=== PATIENT | male | born 1955 | race Caucasian/White ===

== ENCOUNTER → 2018-01-20 12:53 | Outpatient (CLI) | payer MEDICARE, SELFPAY ==
[2018-01-20 13:11] LABS: Abs Immature Grans 0.09 k/cumm (0.0-0.09); Absolute Basophil Count 0.03 k/cumm (0.0-0.2); Absolute Eosinophil Count 0.14 k/cumm (0.0-0.7); Absolute Monocyte Count 0.87 k/cumm (0.11-0.7); Absolute Neutrophil Count 5.96 k/cumm (1.2-6.7); Basophils % 0.3; Eosinophils % 1.6; HCT 37.9 % (40.0-50.0); HGB 12.7 g/dL (13.5-17.5); Lymphocytes % 18.4; Mean Corp. HGB Concentration 33.5 g/dL (32.0-36.0); Mean Corpuscular Hemoglobin 28.3 pg (27.0-33.0); Mean Corpuscular Volume 84.6 fL (80-95); Mean Platelet Volume 8.7 fL (8.0-11.0); Neutrophils % 68.7; Platelet Count 519 x1000/uL (130-400); RBC 4.48 m/cumm (4.50-6.00); RBC Distribution Width 14.2 % (11.8-14.1); White Blood Cell Count 8.69 k/cumm (4.4-10.8)
[2018-01-20 13:23] LABS: ALT 29 U/L (12-78); AST 24 U/L (15-37); Albumin 3.8 g/dL (3.4-5.0); Alkaline Phosphatase 128 U/L (46-116); Anion Gap 8.6 mmol/L (3-11); BUN 21 mg/dL (7-18); Bilirubin, Total 0.3 mg/dL (0.2-1.0); CO2 27.4 mmol/L (21.0-32.0); CREATININE 1.15 mg/dL (0.70-1.30); Calcium 9.2 mg/dL (8.5-10.1); Chloride 95 mmol/L (98-107); Glucose 95 mg/dL (70-100); Potassium 3.9 mmol/L (3.5-5.1); Sodium 131 mmol/L (136-145); Total Protein 8.2 g/dL (6.4-8.2)
== END ==
PROVIDERS: PCP Family Medicine; Visit Provider Internal Medicine
DX: C34.90 Malignant neoplasm of unspecified part of unspecified bronchus or lung (principal)
CPT/HCPCS: 36415; 80053; 85025

== ENCOUNTER → 2018-02-14 09:14 | Outpatient (CLI) | payer MEDICARE, SELFPAY ==
[2018-02-14 09:41] LABS: HCT 35.8 % (40.0-50.0); HGB 11.6 g/dL (13.5-17.5); Mean Corp. HGB Concentration 32.4 g/dL (32.0-36.0); Mean Corpuscular Hemoglobin 27.6 pg (27.0-33.0); Mean Platelet Volume 8.1 fL (8.0-11.0); Platelet Count 436 x1000/uL (130-400); RBC 4.21 m/cumm (4.50-6.00); RBC Distribution Width 14.7 % (11.8-14.1); White Blood Cell Count 6.65 k/cumm (4.4-10.8)
[2018-02-14 09:51] LABS: ALT 42 U/L (12-78); AST 28 U/L (15-37); Albumin 3.6 g/dL (3.4-5.0); Alkaline Phosphatase 117 U/L (46-116); Anion Gap 5.4 mmol/L (3-11); BUN 21 mg/dL (7-18); Bilirubin, Total 0.2 mg/dL (0.2-1.0); CO2 28.6 mmol/L (21.0-32.0); CREATININE 1.17 mg/dL (0.70-1.30); Calcium 9.3 mg/dL (8.5-10.1); Chloride 98 mmol/L (98-107); Glucose 102 mg/dL (70-100); Potassium 4.6 mmol/L (3.5-5.1); Sodium 132 mmol/L (136-145); Total Protein 7.8 g/dL (6.4-8.2)
[2018-02-14 10:14] LABS: Absolute Eosinophil Count 0.07 k/cumm (0.0-0.7); Absolute Lymphocyte Count 1.66 k/cumm (1.2-3.4); Absolute Neutrophil Count 3.19 k/cumm (1.2-6.7); Atypical Lymphocytes % 1
[2018-02-14 10:15] LABS: Absolute Basophil Count 0.07 k/cumm (0.0-0.2); Diff Comment Manual Differential; RBC Morphology Normal
== END ==
PROVIDERS: PCP Family Medicine; Visit Provider Internal Medicine
DX: C34.90 Malignant neoplasm of unspecified part of unspecified bronchus or lung (principal)
CPT/HCPCS: 36415; 80053; 85025

== ENCOUNTER 2018-03-07 10:38 | Outpatient (CLI) | payer MEDICARE, SELFPAY ==
[2018-03-07 11:03] LABS: HCT 31.4 % (40.0-50.0); HGB 10.5 g/dL (13.5-17.5); Mean Corp. HGB Concentration 33.4 g/dL (32.0-36.0); Mean Corpuscular Hemoglobin 28.2 pg (27.0-33.0); Mean Corpuscular Volume 84.2 fL (80-95); Mean Platelet Volume 8.5 fL (8.0-11.0); Platelet Count 270 x1000/uL (130-400); RBC 3.73 m/cumm (4.50-6.00); RBC Distribution Width 16.2 % (11.8-14.1); White Blood Cell Count 3.68 k/cumm (4.4-10.8)
[2018-03-07 11:13] LABS: ALT 37 U/L (12-78); AST 25 U/L (15-37); Albumin 3.5 g/dL (3.4-5.0); Alkaline Phosphatase 123 U/L (46-116); Anion Gap 5.8 mmol/L (3-11); BUN 12 mg/dL (7-18); Bilirubin, Total 0.2 mg/dL (0.2-1.0); CO2 30.2 mmol/L (21.0-32.0); Calcium 8.7 mg/dL (8.5-10.1); Chloride 101 mmol/L (98-107); Glucose 92 mg/dL (70-100); Potassium 4.2 mmol/L (3.5-5.1); Sodium 137 mmol/L (136-145); Total Protein 7.6 g/dL (6.4-8.2)
[2018-03-07 11:34] LABS: Absolute Eosinophil Count 0.04 k/cumm (0.0-0.7); Absolute Lymphocyte Count 0.55 k/cumm (1.2-3.4); Absolute Monocyte Count 1.14 k/cumm (0.11-0.7); Absolute Neutrophil Count 1.66 k/cumm (1.2-6.7)
[2018-03-07 11:35] LABS: Diff Comment Manual Differential; Nucleated RBC 2 /100WBC
== END 2018-03-07 10:58 ==
PROVIDERS: PCP Family Medicine; Visit Provider Internal Medicine
DX: C34.90 Malignant neoplasm of unspecified part of unspecified bronchus or lung (principal)
CPT/HCPCS: 36415; 80053; 85025

== ENCOUNTER 2018-03-28 10:06 | Outpatient (CLI) | payer MEDICARE, SELFPAY ==
[2018-03-28 10:29] LABS: Abs Immature Grans 0.36 k/cumm (0.0-0.09); HCT 27.6 % (40.0-50.0); HGB 9.4 g/dL (13.5-17.5); Mean Corp. HGB Concentration 34.1 g/dL (32.0-36.0); Mean Corpuscular Hemoglobin 28.8 pg (27.0-33.0); Mean Corpuscular Volume 84.7 fL (80-95); Mean Platelet Volume 8.5 fL (8.0-11.0); Platelet Count 292 x1000/uL (130-400); RBC 3.26 m/cumm (4.50-6.00); White Blood Cell Count 4.43 k/cumm (4.4-10.8)
[2018-03-28 10:43] LABS: Absolute Lymphocyte Count 0.53 k/cumm (1.2-3.4); Absolute Monocyte Count 0.89 k/cumm (0.11-0.7); Absolute Neutrophil Count 2.75 k/cumm (1.2-6.7)
[2018-03-28 10:44] LABS: Diff Comment Manual Differential; Polychromasia Present
[2018-03-28 10:46] LABS: ALT 26 U/L (12-78); AST 21 U/L (15-37); Albumin 3.6 g/dL (3.4-5.0); Alkaline Phosphatase 110 U/L (46-116); Anion Gap 6.9 mmol/L (3-11); BUN 19 mg/dL (7-18); Bilirubin, Total 0.3 mg/dL (0.2-1.0); CO2 27.1 mmol/L (21.0-32.0); CREATININE 1.02 mg/dL (0.70-1.30); Calcium 8.5 mg/dL (8.5-10.1); Chloride 99 mmol/L (98-107); Glucose 101 mg/dL (70-100); Potassium 3.9 mmol/L (3.5-5.1); Sodium 133 mmol/L (136-145); Total Protein 7.3 g/dL (6.4-8.2)
== END 2018-03-28 10:26 ==
PROVIDERS: PCP Family Medicine; Visit Provider Internal Medicine
DX: C34.90 Malignant neoplasm of unspecified part of unspecified bronchus or lung (principal)
CPT/HCPCS: 36415; 80053; 85025

== ENCOUNTER 2018-04-06 01:28 | Outpatient (CLI) | payer MEDICARE, SELFPAY ==
[2018-04-06] MEDS: Gadoterate meglumine 20 ML VIAL 15 ML IVP (10:28)
--- NOTE | 2018-04-06 10:40 | DI.MRI_ITS ---
SYMPTOM/DIAGNOSIS: SMALL LUNG CA, C34.11 BRAIN MRI: T 2 sagittal and axial and axial diffusion and axial T 2 BLADE and axial T 2 hemo and axial T 1 pre and post and coronal post Dotarem enhanced images were obtained. There are a few small regions of increased signal in the frontoparietal white matter bilaterally. There is no evidence of a mass. There is no evidence of contrast enhancement. The ventricles are normal. SUMMARY: There is no evidence of metastatic disease. Small regions of increased signal in the frontoparietal white matter bilaterally would be consistent with minimal small vessel disease.
== END 2018-04-06 01:48 ==
PROVIDERS: PCP Family Medicine; Visit Provider Radiology Radiation Oncology
DX: C34.11 Malignant neoplasm of upper lobe, right bronchus or lung (principal); Z12.89 Encounter for screening for malignant neoplasm of other sites
CPT/HCPCS: 70553

== ENCOUNTER 2018-04-12 14:52 | Outpatient (CLI) | payer MEDICARE, SELFPAY ==
[2018-04-12 15:17] LABS: Abs Immature Grans 0.01 k/cumm (0.0-0.09); Absolute Basophil Count 0.01 k/cumm (0.0-0.2); Absolute Eosinophil Count 0.01 k/cumm (0.0-0.7); Absolute Lymphocyte Count 0.42 k/cumm (1.2-3.4); Absolute Monocyte Count 0.35 k/cumm (0.11-0.7); Basophils % 0.8; Eosinophils % 0.8; HCT 24.6 % (40.0-50.0); HGB 8.2 g/dL (13.5-17.5); Immature Grans % 0.8; Lymphocytes % 35.6; Mean Corp. HGB Concentration 33.3 g/dL (32.0-36.0); Mean Corpuscular Hemoglobin 28.9 pg (27.0-33.0); Mean Corpuscular Volume 86.6 fL (80-95); Mean Platelet Volume 8.4 fL (8.0-11.0); Monocytes % 29.7; Neutrophils % 32.3; Platelet Count 130 x1000/uL (130-400); RBC 2.84 m/cumm (4.50-6.00); RBC Distribution Width 20.3 % (11.8-14.1)
[2018-04-12 15:28] LABS: ALT 32 U/L (12-78); AST 23 U/L (15-37); Albumin 3.6 g/dL (3.4-5.0); Alkaline Phosphatase 111 U/L (46-116); Anion Gap 10.3 mmol/L (3-11); BUN 18 mg/dL (7-18); Bilirubin, Total 0.3 mg/dL (0.2-1.0); CO2 27.7 mmol/L (21.0-32.0); CREATININE 1.15 mg/dL (0.70-1.30); Calcium 8.8 mg/dL (8.5-10.1); Chloride 98 mmol/L (98-107); Glucose 104 mg/dL (70-100); Sodium 136 mmol/L (136-145); Total Protein 7.3 g/dL (6.4-8.2)
[2018-04-12 16:01] LABS: Diff Comment Diff Reviewed
[2018-04-12 16:14] LABS: White Blood Cell Count 1.18 k/cumm (4.4-10.8)
[2018-04-12 16:15] LABS: Absolute Neutrophil Count 0.38 k/cumm (1.2-6.7)
[2018-04-12 16:19] LABS: Anisocytosis 3+
[2018-04-12 16:20] LABS: Polychromasia Present
== END 2018-04-12 15:12 ==
PROVIDERS: PCP Family Medicine; Visit Provider Nurse Practitioner Family
DX: C34.11 Malignant neoplasm of upper lobe, right bronchus or lung (principal)
CPT/HCPCS: 36415; 80053; 85025

== ENCOUNTER 2018-04-19 09:00 | Outpatient (CLI) | payer MEDICARE, SELFPAY ==
[2018-04-19 09:20] LABS: HCT 26.8 % (40.0-50.0); HGB 8.9 g/dL (13.5-17.5); Mean Corp. HGB Concentration 33.2 g/dL (32.0-36.0); Mean Corpuscular Hemoglobin 29.6 pg (27.0-33.0); Mean Platelet Volume 8.8 fL (8.0-11.0); Platelet Count 296 x1000/uL (130-400); RBC 3.01 m/cumm (4.50-6.00); RBC Distribution Width 22.7 % (11.8-14.1); White Blood Cell Count 4.26 k/cumm (4.4-10.8)
[2018-04-19 09:33] LABS: ALT 33 U/L (12-78); AST 25 U/L (15-37); Albumin 3.7 g/dL (3.4-5.0); Alkaline Phosphatase 115 U/L (46-116); Anion Gap 8.9 mmol/L (3-11); BUN 24 mg/dL (7-18); Bilirubin, Total 0.3 mg/dL (0.2-1.0); CO2 28.1 mmol/L (21.0-32.0); CREATININE 1.19 mg/dL (0.70-1.30); Calcium 9.5 mg/dL (8.5-10.1); Chloride 98 mmol/L (98-107); Glucose 111 mg/dL (70-100); Sodium 135 mmol/L (136-145); Total Protein 7.4 g/dL (6.4-8.2)
[2018-04-19 09:44] LABS: Absolute Lymphocyte Count 0.43 k/cumm (1.2-3.4); Absolute Monocyte Count 0.81 k/cumm (0.11-0.7); Absolute Neutrophil Count 2.68 k/cumm (1.2-6.7); Atypical Lymphocytes % 2
[2018-04-19 09:45] LABS: Anisocytosis 2+; Diff Comment Manual Differential; Hypochromasia 2+; Macrocytosis 1+; Microcytosis 2+; Polychromasia Present; Schistocytes 1+
[2018-04-19 09:46] LABS: Nucleated RBC 4 /100WBC; Poikilocytes 1+
== END 2018-04-19 09:20 ==
PROVIDERS: PCP Family Medicine; Visit Provider Internal Medicine
DX: C34.90 Malignant neoplasm of unspecified part of unspecified bronchus or lung (principal)
CPT/HCPCS: 36415; 80053; 85025

== ENCOUNTER 2018-05-18 00:27 | Outpatient (CLI) | payer MEDICARE, SELFPAY ==
[2018-05-18 14:27] LABS: ALT 39 U/L (12-78); AST 24 U/L (15-37); Albumin 3.9 g/dL (3.4-5.0); Alkaline Phosphatase 104 U/L (46-116); BUN 26 mg/dL (7-18); Bilirubin, Total 0.2 mg/dL (0.2-1.0); CREATININE 1.26 mg/dL (0.70-1.30); Chloride 99 mmol/L (98-107); Glucose 110 mg/dL (70-100); Potassium 3.9 mmol/L (3.5-5.1); Sodium 137 mmol/L (136-145); Total Protein 7.4 g/dL (6.4-8.2)
[2018-05-18 14:38] LABS: Abs Immature Grans 0.11 k/cumm (0.0-0.09); Absolute Basophil Count 0.03 k/cumm (0.0-0.2); Absolute Eosinophil Count 0.17 k/cumm (0.0-0.7); Absolute Lymphocyte Count 0.61 k/cumm (1.2-3.4); Absolute Monocyte Count 0.73 k/cumm (0.11-0.7); Absolute Neutrophil Count 5.48 k/cumm (1.2-6.7); Basophils % 0.4; Eosinophils % 2.4; HGB 11.1 g/dL (13.5-17.5); Immature Grans % 1.5; Lymphocytes % 8.6; Mean Corp. HGB Concentration 32.6 g/dL (32.0-36.0); Mean Platelet Volume 8.8 fL (8.0-11.0); Monocytes % 10.2; Neutrophils % 76.9; Platelet Count 356 x1000/uL (130-400); RBC 3.47 m/cumm (4.50-6.00); RBC Distribution Width 20.1 % (11.8-14.1); White Blood Cell Count 7.13 k/cumm (4.4-10.8)
--- NOTE | 2018-05-18 14:45 | DI.CT_ITS ---
SYMPTOM/DIAGNOSIS: HO SMALL CELL LUNG CA, S/P CHEMO AND RADIATION THERAPY, C34.[address]: Comparison is made with 12/15/17. Images were performed from the clavicles through the level of the adrenals after IV contrast. There has been marked interval decrease in the previously noted right upper lobe mass, now measuring 2.6 cm. in diameter. The previously noted adjacent right superior hilar adenopathy is no longer seen. The small anterior nodule adjacent to a cyst has decreased in size to 3 mm. Left apical scarring is seen. There is linear scarring in the inferior left upper lobe. No infiltrates, pleural or pericardial effusions are seen. Tiny hepatic circumscribed lucencies appear stable. A circumscribed cystic area is noted in the left lobe of the thyroid. A port is seen overlying the right pectoral muscle with the tip in the SVC. No suspicious bony abnormalities are seen. IMPRESSION: Marked interval decrease in size of right upper lobe mass and right superior hilar adenopathy. No new abnormalities are seen.
[2018-05-18] MEDS: Omnipaque 350 MG/ML 100 ML BTL IJ (14:58)
== END 2018-05-18 00:47 ==
PROVIDERS: PCP Family Medicine; Visit Provider Nurse Practitioner Family
DX: C34.11 Malignant neoplasm of upper lobe, right bronchus or lung (principal); Z92.21 Personal history of antineoplastic chemotherapy; Z92.3 Personal history of irradiation
CPT/HCPCS: 80053; 71260; 85025; J3490

== ENCOUNTER → 2018-08-16 00:28 | Outpatient (CLI) | payer MEDICARE, SELFPAY ==
[2018-08-16 08:26] LABS: Abs Immature Grans 0.09 k/cumm (0.0-0.09); Absolute Basophil Count 0.01 k/cumm (0.0-0.2); Absolute Lymphocyte Count 0.39 k/cumm (1.2-3.4); Absolute Neutrophil Count 12.26 k/cumm (1.2-6.7); Basophils % 0.1; HGB 13.4 g/dL (13.5-17.5); Immature Grans % 0.7; Mean Corp. HGB Concentration 33.5 g/dL (32.0-36.0); Mean Corpuscular Hemoglobin 29.1 pg (27.0-33.0); Mean Corpuscular Volume 86.8 fL (80-95); Mean Platelet Volume 8.6 fL (8.0-11.0); Monocytes % 2.4; Neutrophils % 93.8; Platelet Count 438 x1000/uL (130-400); RBC 4.61 m/cumm (4.50-6.00); White Blood Cell Count 13.07 k/cumm (4.4-10.8)
[2018-08-16 08:29] LABS: Absolute Monocyte Count 0.31 k/cumm (0.11-0.7)
[2018-08-16] MEDS: Omnipaque 350 MG/ML 50 ML BTL IJ (08:30)
[2018-08-16 08:38] LABS: ALT 35 U/L (12-78); AST 25 U/L (15-37); Albumin 3.7 g/dL (3.4-5.0); Alkaline Phosphatase 121 U/L (46-116); Anion Gap 11.1 mmol/L (3-11); BUN 21 mg/dL (7-18); Bilirubin, Total 0.2 mg/dL (0.2-1.0); CO2 25.9 mmol/L (21.0-32.0); CREATININE 1.12 mg/dL (0.70-1.30); Calcium 9.4 mg/dL (8.5-10.1); Chloride 97 mmol/L (98-107); Glucose 149 mg/dL (70-100); Potassium 4.3 mmol/L (3.5-5.1); Sodium 134 mmol/L (136-145); Total Protein 8.2 g/dL (6.4-8.2)
[2018-08-16] MEDS: Omnipaque 350 MG/ML 100 ML BTL IJ (09:54)
[2018-08-16] MEDS: Breeza Beverage 473 ML BTL PO ×2 (10:04→10:05)
[2018-08-16] MEDS: Normal Saline Flush 10 ML SYR IVP (10:04)
--- NOTE | 2018-08-16 10:06 | DI.CT_ITS ---
SYMPTOM/DIAGNOSIS: RESTAGING OF NON SMALL CELL LUNG CA, C34.11 CHEST, ABDOMEN AND PELVIC CT: CT scan of the chest, abdomen and pelvis was performed following intravenous and oral contrast material. Comparison CT scans of the chest are 12/15/17 and 05/18/18. ABDOMEN AND PELVIS: The liver is normal in size. There are several round, homogenously hypodense lesions in the liver. Several of these were seen on the CT scan of the chest from 12/15/17 and appear stable. They are too small for further characterization but appear to represent cysts. The portal, superior mesenteric and splenic veins are patent. The gallbladder is negative. No biliary ductal dilatation is seen. The pancreas, spleen and adrenal glands are unremarkable. The kidney show normal and symmetric enhancement. No evidence of a solid renal mass or obstruction is identified. There are tiny hypodense lesions seen within the kidneys. They are too small for further characterization but likely reflect cysts. The urinary bladder is intact. The reproductive organs are unremarkable. There is a 3.2 cm. infrarenal abdominal aortic aneurysm. No significant abdominal or pelvic adenopathy, ascites or pneumoperitoneum is present. There is diverticulosis seen in the colon but no evidence of acute diverticulitis. No evidence of an acute appendicitis is present. The remainder of the bowel is unremarkable. No aggressive osseous lesions are seen in the bones. IMPRESSION: 1. Multiple tiny hypodense lesions seen within the liver, several of which appear stable compared to the CT scan from 12/15/17. They are too small for further characterization. They likely represent cysts. Follow up as clinically appropriate. 2. No evidence of abdominal or pelvic metastatic disease. 3. Colonic diverticulosis but no evidence of acute diverticulitis. 4. 3.2 cm. infrarenal abdominal aortic aneurysm. CHEST: There is atherosclerosis of the thoracic aorta but no aneurysmal dilatation. Heart size appears within normal limits. No significant pericardial effusion is seen. Coronary artery calcifications are present. Emphysematous changes are seen in the lungs. There is scarring seen in the left lingula. There is again seen a mass in the right upper lobe. The mass measures 2.6 cm. AP by 2.3 cm. transverse by 2.9 cm. craniocaudal. This compares with 2.6 cm AP by 2.7 cm. transverse by 3.2 cm. craniocaudal using similar measuring techniques. There has been increase in the interstitial thickening in the right upper lobe. This may be due to treatment. Metastatic disease cannot be excluded. Prominent linear opacities are seen in the right upper lobe, particularly in the anterior medial aspect and the lateral aspect. These areas may represent evidence of metastatic disease or related to therapy. The lungs otherwise show no focal consolidating infiltrates or pulmonary nodules. No aggressive osseous lesions are identified. IMPRESSION: Very slight interval decrease in size of the right upper lobe pulmonary mass since 05/18/18. Interval development of interstitial thickening in the right upper lobe. This may be due to therapy but the possibility of metastatic disease cannot be excluded. Pulmonary emphysematous changes.
== END ==
PROVIDERS: PCP Family Medicine; Visit Provider Internal Medicine
DX: C34.11 Malignant neoplasm of upper lobe, right bronchus or lung (principal); K76.89 Other specified diseases of liver; K57.30 Diverticulosis of large intestine without perforation or abscess without bleeding; I71.4 Abdominal aortic aneurysm, without rupture; R91.8 Other nonspecific abnormal finding of lung field; Z12.89 Encounter for screening for malignant neoplasm of other sites
CPT/HCPCS: 36415; 74177; 80053; 71260; 85025; J3490; Q9967

== ENCOUNTER → 2018-08-18 00:55 | Outpatient (CLI) | payer MEDICARE, SELFPAY ==
[2018-08-18] MEDS: Gadoterate meglumine 20 ML VIAL 15 ML IVP (08:54)
--- NOTE | 2018-08-18 09:10 | DI.MRI_ITS ---
SYMPTOM/DIAGNOSIS: RESTAGING OF SMALL CELL LUNG CA, C34.11 BRAIN MRI: Comparison is made with 04/06/18. T 2 sagittal, T 1, T 2, FLAIR, diffusion and gradient echo axial and post Dotarem T 1 axial and coronal sequences were performed. There is motion on the T 1 post Dotarem sequence. There is mild atrophy and mild changes of small vessel disease. No mass, hemorrhage or infarct is seen. The ventricles are normal in size. The sinuses, orbits and mastoid air cells are unremarkable. The vascular flow voids appear intact. IMPRESSION: Stable mild atrophy and mild small vessel disease. No evidence of metastatic disease.
== END ==
PROVIDERS: PCP Family Medicine; Visit Provider Internal Medicine
DX: C34.11 Malignant neoplasm of upper lobe, right bronchus or lung (principal); Z12.89 Encounter for screening for malignant neoplasm of other sites; I67.9 Cerebrovascular disease, unspecified
CPT/HCPCS: 70553

== ENCOUNTER 2018-10-17 08:13 | Outpatient (CLI) | payer MEDICARE, SELFPAY ==
[2018-10-17 08:41] LABS: Abs Immature Grans 0.17 k/cumm (0.0-0.09); HCT 41.3 % (40.0-50.0); HGB 13.6 g/dL (13.5-17.5); Mean Corp. HGB Concentration 32.9 g/dL (32.0-36.0); Mean Platelet Volume 8.6 fL (8.0-11.0); Platelet Count 400 x1000/uL (130-400); RBC 4.86 m/cumm (4.50-6.00); RBC Distribution Width 16.5 % (11.8-14.1)
[2018-10-17 08:58] LABS: ALT 50 U/L (12-78); AST 30 U/L (15-37); Albumin 3.8 g/dL (3.4-5.0); Alkaline Phosphatase 129 U/L (46-116); Anion Gap 7.6 mmol/L (3-11); BUN 24 mg/dL (7-18); Bilirubin, Total 0.3 mg/dL (0.2-1.0); CO2 29.4 mmol/L (21.0-32.0); CREATININE 1.24 mg/dL (0.70-1.30); Calcium 9.3 mg/dL (8.5-10.1); Chloride 96 mmol/L (98-107); Estimated GFR 58.69 (mL/min/1.73m2); Glucose 118 mg/dL (70-100); Potassium 4.2 mmol/L (3.5-5.1); Sodium 133 mmol/L (136-145); Total Protein 7.9 g/dL (6.4-8.2)
[2018-10-17 09:13] LABS: Absolute Basophil Count 0.08 k/cumm (0.0-0.2); Absolute Eosinophil Count 0.08 k/cumm (0.0-0.7); Absolute Monocyte Count 0.83 k/cumm (0.11-0.7); Absolute Neutrophil Count 5.55 k/cumm (1.2-6.7); Atypical Lymphocytes % 1; Diff Comment Manual Differential; Polychromasia Present
[2018-10-17 09:15] LABS: Poikilocytes 2+
== END 2018-10-17 08:33 ==
PROVIDERS: PCP Family Medicine; Visit Provider Internal Medicine
DX: C34.90 Malignant neoplasm of unspecified part of unspecified bronchus or lung (principal)
CPT/HCPCS: 36415; 80053; 85025

== ENCOUNTER 2019-06-02 10:05 | Outpatient (CLI) | payer MEDICARE, SELFPAY ==
[2019-06-02 10:43] LABS: Abs Immature Grans 0.15 k/cumm (0.0-0.09); Absolute Basophil Count 0.04 k/cumm (0.0-0.2); Absolute Eosinophil Count 0.13 k/cumm (0.0-0.7); Absolute Lymphocyte Count 0.91 k/cumm (1.2-3.4); Absolute Monocyte Count 1.19 k/cumm (0.11-0.7); Absolute Neutrophil Count 5.91 k/cumm (1.2-6.7); Basophils % 0.5; Eosinophils % 1.6; HGB 13.9 g/dL (13.5-17.5); Immature Grans % 1.8; Lymphocytes % 10.9; Mean Corp. HGB Concentration 33.9 g/dL (32.0-36.0); Mean Corpuscular Hemoglobin 29.3 pg (27.0-33.0); Mean Corpuscular Volume 86.5 fL (80-95); Mean Platelet Volume 8.4 fL (8.0-11.0); Monocytes % 14.3; Neutrophils % 70.9; Platelet Count 420 x1000/uL (130-400); RBC 4.74 m/cumm (4.50-6.00); RBC Distribution Width 14.8 % (11.8-14.1); White Blood Cell Count 8.33 k/cumm (4.4-10.8)
[2019-06-02 11:43] LABS: ALT 43 U/L (16-63); AST 26 U/L (15-37); Alkaline Phosphatase 112 U/L (46-116); Anion Gap 9.2 mmol/L (3-11); BUN 13 mg/dL (7-18); Bilirubin, Total 0.3 mg/dL (0.2-1.0); CO2 29.8 mmol/L (21.0-32.0); CREATININE 1.05 mg/dL (0.70-1.30); Calcium 10.1 mg/dL (8.5-10.1); Chloride 95 mmol/L (98-107); Glucose 112 mg/dL (74-106); Potassium 4.7 mmol/L (3.5-5.1); Sodium 134 mmol/L (136-145); Total Protein 7.6 g/dL (6.4-8.2)
== END 2019-06-02 10:25 ==
PROVIDERS: PCP Family Medicine; Visit Provider Internal Medicine
DX: C34.11 Malignant neoplasm of upper lobe, right bronchus or lung (principal)
CPT/HCPCS: 36415; 80053; 85025

== ENCOUNTER 2019-10-24 03:18 | Outpatient (CLI) | payer MEDICARE, SELFPAY ==
[2019-10-24 12:25] LABS: Abs Immature Grans 0.11 k/cumm (0.0-0.09); Absolute Basophil Count 0.03 k/cumm (0.0-0.2); Absolute Eosinophil Count 0.12 k/cumm (0.0-0.7); Absolute Lymphocyte Count 0.63 k/cumm (1.2-3.4); Absolute Neutrophil Count 5.99 k/cumm (1.2-6.7); Basophils % 0.4; Eosinophils % 1.5; HCT 38.2 % (40.0-50.0); HGB 13.3 g/dL (13.5-17.5); Immature Grans % 1.3 %; Lymphocytes % 7.7; Mean Corp. HGB Concentration 34.8 g/dL (32.0-36.0); Mean Corpuscular Hemoglobin 29.8 pg (27.0-33.0); Mean Corpuscular Volume 85.5 fL (80-95); Mean Platelet Volume 8.4 fL (8.0-11.0); Monocytes % 15.9; Neutrophils % 73.2; Platelet Count 464 x1000/uL (130-400); RBC 4.47 m/cumm (4.50-6.00); RBC Distribution Width 14.6 % (11.8-14.1); White Blood Cell Count 8.18 k/cumm (4.4-10.8)
[2019-10-24 12:40] LABS: ALT 38 U/L (16-63); AST 22 U/L (15-37); Albumin 3.8 g/dL (3.4-5.0); Alkaline Phosphatase 129 U/L (46-116); Anion Gap 8.2 mmol/L (3-11); BUN 17 mg/dL (7-18); Bilirubin, Total 0.3 mg/dL (0.2-1.0); CO2 27.8 mmol/L (21.0-32.0); CREATININE 1.13 mg/dL (0.70-1.30); Calcium 8.9 mg/dL (8.5-10.1); Chloride 91 mmol/L (98-107); Glucose 116 mg/dL (74-106); Potassium 3.8 mmol/L (3.5-5.1); Sodium 127 mmol/L (136-145); Total Protein 7.6 g/dL (6.4-8.2)
== END 2019-10-24 03:38 ==
PROVIDERS: PCP Family Medicine; Visit Provider Internal Medicine
DX: C34.11 Malignant neoplasm of upper lobe, right bronchus or lung (principal)
CPT/HCPCS: 36415; 80053; 85025

== ENCOUNTER 2020-03-05 03:29 | Outpatient (CLI) | payer MEDICARE, SELFPAY ==
[2020-03-05 13:03] LABS: Abs Immature Grans 0.11 10^3/uL (0.0-0.06); Absolute Basophil Count 0.03 10^3/uL (0.0-0.2); Absolute Eosinophil Count 0.11 10^3/uL (0.0-0.7); Absolute Lymphocyte Count 0.57 10^3/uL (1.2-3.4); Absolute Monocyte Count 0.91 10^3/uL (0.1-0.8); Basophils % 0.4; Eosinophils % 1.3; HCT 43.8 % (40.0-50.0); HGB 14.6 g/dL (13.5-17.5); Immature Grans % 1.3; Lymphocytes % 6.9; MCH 27.4 pg (27.0-33.0); MCHC 33.3 % (32.0-36.0); MCV 82.3 fL (80-95); MPV 8.7 fL (8.0-11.0); Monocytes % 11.1; Nucleated RBC 0 %; Platelet Count 387 10^3/uL (130-400); RBC 5.32 10^6/uL (4.36-5.78); RDW 16.1 % (11.8-14.1); RDW-SD 47.9 fL; WBC 8.23 10^3/uL (4.4-10.8)
[2020-03-05 13:22] LABS: ALT 38 U/L (16-63); AST 26 U/L (15-37); Albumin 3.8 g/dL (3.4-5.0); Alkaline Phosphatase 112 U/L (46-116); Anion Gap 7.3 mmol/L (3-11); BUN 12 mg/dL (7-18); Bilirubin, Total 0.3 mg/dL (0.2-1.0); CO2 29.7 mmol/L (21.0-32.0); CREATININE 1.01 mg/dL (0.70-1.30); Calcium 9.3 mg/dL (8.5-10.1); Chloride 94 mmol/L (98-107); Glucose 125 mg/dL (74-106); Potassium 3.9 mmol/L (3.5-5.1); Sodium 131 mmol/L (136-145); Total Protein 7.5 g/dL (6.4-8.2)
== END 2020-03-05 03:49 ==
PROVIDERS: PCP Family Medicine; Visit Provider Internal Medicine
DX: C34.11 Malignant neoplasm of upper lobe, right bronchus or lung (principal)
CPT/HCPCS: 36415; 80053; 85025

== ENCOUNTER 2020-09-17 03:47 | Outpatient (CLI) | payer MEDICARE, SELFPAY ==
[2020-09-17 13:11] LABS: Abs Immature Grans 0.17 10^3/uL (0.0-0.06); Absolute Basophil Count 0.06 10^3/uL (0.0-0.2); Absolute Eosinophil Count 0.15 10^3/uL (0.0-0.7); Absolute Lymphocyte Count 0.65 10^3/uL (1.2-3.4); Absolute Monocyte Count 1.24 10^3/uL (0.1-0.8); Absolute Neutrophil Count 6.94 10^3/uL (1.2-6.7); Basophils % 0.7; Eosinophils % 1.6; HCT 36.1 % (40.0-50.0); HGB 11.9 g/dL (13.5-17.5); Immature Grans % 1.8; Lymphocytes % 7.1; MCH 27.5 pg (27.0-33.0); MCV 83.6 fL (80-95); MPV 8.6 fL (8.0-11.0); Monocytes % 13.5; Neutrophils % 75.3; Nucleated RBC 0 %; Platelet Count 423 10^3/uL (130-400); RBC 4.32 10^6/uL (4.36-5.78); RDW 14.1 % (11.8-14.1); RDW-SD 43.5 fL; WBC 9.21 10^3/uL (4.4-10.8)
[2020-09-17 14:02] LABS: ALT 34 U/L (16-63); AST 23 U/L (15-37); Albumin 3.8 g/dL (3.4-5.0); Alkaline Phosphatase 123 U/L (46-116); BUN 22 mg/dL (7-18); Bilirubin, Total 0.3 mg/dL (0.2-1.0); CREATININE 1.4 mg/dL (0.70-1.30); Calcium 9.7 mg/dL (8.5-10.1); Chloride 98 mmol/L (98-107); Glucose 91 mg/dL (74-106); Potassium 4.9 mmol/L (3.5-5.1); Sodium 135 mmol/L (136-145); Total Protein 7.6 g/dL (6.4-8.2)
== END 2020-09-17 03:48 | disposition home or self-care (01) ==
LOC: LBO 03:48
PROVIDERS: PCP Family Medicine; Visit Provider Internal Medicine
DX: C34.11 Malignant neoplasm of upper lobe, right bronchus or lung (principal)
CPT/HCPCS: 36415; 80053; 85025

== ENCOUNTER 2020-09-27 03:05 | Outpatient (CLI) | payer MEDICARE, SELFPAY ==
[2020-09-28 13:46] LABS: COVID-19 RT-PCR UVMMC Result Negative (Negative)
== END 2020-09-27 03:06 | disposition home or self-care (01) ==
LOC: LBO 03:06
PROVIDERS: PCP Family Medicine; Visit Provider Family Medicine
DX: Z20.822 Contact with and (suspected) exposure to COVID-19 (principal)
CPT/HCPCS: U0003; U0005

== ENCOUNTER → 2020-10-10 01:58 | Outpatient (CLI) | payer MEDICARE, SELFPAY ==
--- NOTE | 2020-10-10 08:00 | DI.US_ITS ---
APPROVED REPORT EXAM: Comprehensive 2D, Doppler, and color-flow Echocardiogram Patient Location: Out-Patient Medical Support Specialist: Tere Fairbanks RDCS ([facility]) Indications: ESCAMILLA, COPD Other Information Study Quality: Fair. Technically limited study due to body habitus, lung disease. Conclusion Technically difficult but adequate study Normal left ventricular wall thickness and chamber size. Estimated ejection fraction is 60 to 65%. Wall motion is normal The right ventricle appears normal in size and systolic function Both atria are normal in size There is no significant valvular disease Wall motion Left Ventricle The left ventricle is normal size. The left ventricular systolic function is normal. The left ventric ular ejection fraction is within the normal range. There is normal left ventricular wall thickness. T here is normal LV segmental wall motion. There is no ventricular septal defect visualized. LVEF is 60 -65%. Right Ventricle Right ventricle is grossly normal in size. Right ventricular systolic function is grossly normal. The RVSP is 49mmHg. Atria The left atrium size is normal. The right atrium size is normal. The interatrial septum is intact wit h no evidence for an atrial septal defect. Aortic Valve The aortic valve is normal in structure. Aortic valve is trileaflet. There is no aortic valvular sten osis. No aortic regurgitation is present. Mitral Valve The mitral valve is normal in structure. No evidence of mitral valve stenosis. Trace mitral regurgita tion. Tricuspid Valve The tricuspid valve is normal in structure. There is no tricuspid valve stenosis. Trace tricuspid reg urgitation. Pulmonic Valve Pulmonic valve is not well visualized. There is no pulmonic valvular stenosis. There is no pulmonic v alvular regurgitation. Great Vessels The aortic root is normal in size. Ascending aorta is not well visualized. Aortic arch is normal in c aliber. IVC is normal in size and collapses >50% with inspiration. Pericardium There is no pericardial effusion. 2D Dimensions IVSD d PLAX 0.86 cm M: 0.6-1.2 LV Vol A2C d MOD 90.4 mL LVPW d PLAX 0.92 cm M: 0.6 - 1.2 LV Vol A4C d MOD 84.0 mL LVID d PLAX 4.42 cm M: 4.2 - 5.8 LA vol/ BSA A2C s A-L 17.3 mL/m2 LVDs 2.90 cm M: 2.5 - 4.0 LA vol/ BSA A4C s A-L 10.9 mL/m2 Ao Root d 3.26 cm M: 3.1 - 3.7 LA Vol/ BSA Biplane s A-L 13.8 mL/m2 RA Area A4C 12.25 cm2 LA Area A4C s MOD 10.02 cm2 RA Vol/ BSA A4C s A-L 15.5 mL/m2 LA Area A2C s MOD 12.68 cm2 LV EF Teichholz 62.5 % LV EF A4C MOD 65.7 % LVEF (Hay's) 64.07 % M: 52 - 72 LV EF A2C MOD 61.9 % LV Volume 67.81 mL M: 62 - 150 LV EF Biplane MOD 64.1 % LV Volume Index 35.50 mL/m2 M: 34 - 74 SV 57.06 mL LV Vol Biplane MOD 89.1 mL SV Index 29.83 mL/m2 FS 33.50 % M-Mode TAPSE 2.62 cm (M/F) >1.7 LV Diastology MV E' medial 0.079 (>0.07 m/s) E/A Ratio 1.2 LV E/e MED 10.20 (<14) MV E Vmax 0.81 (0.4-1.3 m/s) MV E' lateral 0.100 (>0.1 m/s) MV A Vmax 0.65 (0.4-1.3 m/s) LV E/e LAT 8.05 (<14) MV E/A Ratio 1.19 MV E/E' medial 10.22 MV E/E' lateral 8.10 Aortic Valve LVOT Area 3.66 cm2 AoV Area Vmax 2.83 cm2 LVOT Vmax 1.33 m/s AoV Area/ BSA (Vmax) 1.48 cm2/m2 LVOT Mean Jerry. 0.78 m/s MICHELLE Mean Jerry. 2.73 cm2 LVOT Peak Grad 7.0 mmHg MICHELLE Mean Jerry. Index 1.43 cm2/m2 LVOT Mean Grad 3.0 mmHg LVOT VTI 0.233 m LVOT Diam s 2.15 cm AoV Vmax 1.72 m/s Velocity Ratio 0.77 AoV Mean Jerry. 1.05 m/s AoV Peak Grad 11.8 mmHg LVOT SV 85.16 mL AoV Mean Grad 5.2 mmHg AoV VTI 0.267 m AoV Area VTI 3.19 cm2 AoV Area/ BSA (VTI) 1.67 cm/m2 Mitral Valve MV DT 269 (160-240 msec) MV PHT 78 msec MV Area PHT 2.82 cm2 MV VTI 0.204 m MV VTI Annulus 0.209 m MV Area VTI 4.28 (4.0-6.0 cm2) Pulmonary Valve PV Vmax 1.19 (0.5-1.5 m/s) RVOT Peak Gr. 2.01 mmHg PV Peak Grad 5.6 mmHg RVOT Mean Gr. 1.20 mmHg PV Mean Grad 3.2 mmHg RVOT VTI 0.096 m PV VTI 0.170 m RVOT Vmax 0.71 m/s Tricuspid Valve TR Peak Grad 45.9 mmHg TR Vmax 3.39 m/s RA Pressure 3.00 mmHg RVSP (TR) 49.0 mmHg
== END ==
PROVIDERS: PCP Family Medicine; Visit Provider Family Medicine
DX: R06.00 Dyspnea, unspecified (principal); J44.9 Chronic obstructive pulmonary disease, unspecified; R93.9 Diagnostic imaging inconclusive due to excess body fat of patient
CPT/HCPCS: 93306

== ENCOUNTER → 2020-10-11 13:20 | Outpatient (BNVA) | payer MEDICARE, SELFPAY | PROVIDERS: PCP Family Medicine; Referring Provider Family Medicine; Visit Provider Physical Therapy Assistant | DX: R06.09 Other forms of dyspnea (principal); J44.9 Chronic obstructive pulmonary disease, unspecified; R93.5 Abnormal findings on diagnostic imaging of other abdominal regions, including retroperitoneum | CPT/HCPCS: 99213 ==

== ENCOUNTER 2020-12-02 09:39 | Outpatient (CLI) | payer MEDICARE, SELFPAY ==
[2020-12-02 13:04] LABS: ALT 29 U/L (16-63); AST 16 U/L (15-37); Alkaline Phosphatase 112 U/L (46-116); Anion Gap 10.3 mmol/L (3-11); BUN 20 mg/dL (7-18); Bilirubin, Total 0.3 mg/dL (0.2-1.0); CO2 27.7 mmol/L (21.0-32.0); CREATININE 1.1 mg/dL (0.70-1.30); Calcium 9.8 mg/dL (8.5-10.1); Chloride 100 mmol/L (98-107); Glucose 137 mg/dL (74-106); Potassium 4.5 mmol/L (3.5-5.1); Sodium 138 mmol/L (136-145); Total Protein 7.5 g/dL (6.4-8.2)
[2020-12-02 21:38] LABS: PSA, Screening 1.4 ng/mL (0.0-4.5)
== END 2020-12-02 09:40 | disposition home or self-care (01) ==
LOC: LOS 09:39
PROVIDERS: PCP Family Medicine; Visit Provider Family Medicine
DX: I25.10 Atherosclerotic heart disease of native coronary artery without angina pectoris (principal); R35.0 Frequency of micturition; Z12.5 Encounter for screening for malignant neoplasm of prostate
CPT/HCPCS: 36415; 80053; 84153

== ENCOUNTER 2021-01-15 09:10 | Outpatient (CLI) | payer MEDICARE, SELFPAY ==
[2021-01-15 10:28] LABS: Abs Immature Grans 0.11 10^3/uL (0.0-0.06); Absolute Basophil Count 0.05 10^3/uL (0.0-0.2); Absolute Eosinophil Count 0.08 10^3/uL (0.0-0.7); Absolute Lymphocyte Count 0.44 10^3/uL (1.2-3.4); Absolute Monocyte Count 1.02 10^3/uL (0.1-0.8); Absolute Neutrophil Count 5.42 10^3/uL (1.2-6.7); Basophils % 0.7; Eosinophils % 1.1; HCT 32.7 % (40.0-50.0); HGB 10.3 g/dL (13.5-17.5); Immature Grans % 1.5; Lymphocytes % 6.2; MCH 24.9 pg (27.0-33.0); MCHC 31.5 % (32.0-36.0); MCV 79.2 fL (80-95); MPV 8.6 fL (8.0-11.0); Monocytes % 14.3; Neutrophils % 76.2; Nucleated RBC 0 %; Platelet Count 425 10^3/uL (130-400); RBC 4.13 10^6/uL (4.36-5.78); RDW 16.4 % (11.8-14.1); WBC 7.12 10^3/uL (4.4-10.8)
[2021-01-15 10:39] LABS: ALT 28 U/L (16-63); AST 19 U/L (15-37); Albumin 3.8 g/dL (3.4-5.0); Alkaline Phosphatase 113 U/L (46-116); Anion Gap 6.8 mmol/L (3-11); BUN 20 mg/dL (7-18); Bilirubin, Total 0.4 mg/dL (0.2-1.0); CO2 30.2 mmol/L (21.0-32.0); CREATININE 1.1 mg/dL (0.70-1.30); Calcium 9.4 mg/dL (8.5-10.1); Chloride 97 mmol/L (98-107); Glucose 104 mg/dL (74-106); Potassium 4.2 mmol/L (3.5-5.1); Sodium 134 mmol/L (136-145); Total Protein 7.7 g/dL (6.4-8.2)
== END 2021-01-15 09:11 | disposition home or self-care (01) ==
LOC: LBO 09:12
PROVIDERS: PCP Family Medicine; Visit Provider Internal Medicine
DX: C34.11 Malignant neoplasm of upper lobe, right bronchus or lung
CPT/HCPCS: 36415; 80053; 85025

== ENCOUNTER 2021-01-22 03:46 | Outpatient (CLI) | payer MEDICARE, SELFPAY ==
[2021-01-22 10:25] LABS: Bilirubin Negative (Negative); Blood Negative (Negative); Clarity Clear (Clear); Glucose Negative (Negative); Ketones Negative (Negative); Leukocyte Esterase Negative (Negative); Nitrite Negative (Negative); Specific Gravity 1.015 (1.005-1.025); Urobilinogen 0.2 EU/dL (Up TO 0.2)
[2021-01-22 10:26] LABS: Abs Immature Grans 0.13 10^3/uL (0.0-0.06); Absolute Basophil Count 0.07 10^3/uL (0.0-0.2); Absolute Eosinophil Count 0.09 10^3/uL (0.0-0.7); Absolute Monocyte Count 1.02 10^3/uL (0.1-0.8); Absolute Neutrophil Count 5.32 10^3/uL (1.2-6.7); Eosinophils % 1.3; HCT 34.3 % (40.0-50.0); HGB 10.8 g/dL (13.5-17.5); Immature Grans % 1.8; MCH 25.1 pg (27.0-33.0); MCHC 31.5 % (32.0-36.0); MCV 79.8 fL (80-95); Monocytes % 14.3; Neutrophils % 74.6; Nucleated RBC 0 %; Platelet Count 432 10^3/uL (130-400); RDW 16.4 % (11.8-14.1); RDW-SD 47.5 fL; WBC 7.13 10^3/uL (4.4-10.8)
[2021-01-22 11:01] LABS: Ferritin 28 ng/mL (26-388); Folate 14.7 ng/mL (8.6-20.0); Vitamin B12 411 pg/mL (193-986)
[2021-01-22 11:24] LABS: LDH 170 U/L (85-227)
[2021-01-22 11:31] LABS: Iron 35 ug/dL (65-175); Total Iron Binding Capacity 450 ug/dL (250-450); Transferrin Sat 8 % (20-55)
[2021-01-23 09:34] LABS: Haptoglobin 183 mg/dL (32-197)
[2021-01-23 13:56] LABS: Albumin 57.2 % (55.8-66.1); Total Protein 6.9 g/dL (6.3-8.2)
[2021-01-25 16:22] LABS: Methylmalonic Acid 0.24 nmol/mL (<=0.40)
== END 2021-01-22 03:47 | disposition home or self-care (01) ==
LOC: LBO 03:46
PROVIDERS: PCP Family Medicine; Visit Provider Internal Medicine
DX: D63.0 Anemia in neoplastic disease (principal); R35.0 Frequency of micturition
CPT/HCPCS: 36415; 80186; 81003; 82607; 82728; 82746; 83010; 83540; 83550; 83615; 84165; 85025; 85045

== ENCOUNTER 2021-05-16 12:12 | Emergency (ER) | payer MEDICARE, SELFPAY ==
[2021-05-16] VITALS (38 sets, daily range): BP systolic 110–177; BP diastolic 58–114; PULSE 72–107; RESP 14–20; TEMP 36.9–37; O2SAT 85–100
--- NOTE | 2021-05-16 12:15 | RT.EKG_ITS ---
APPROVED REPORT Exam: Resting ECG Reason for Exam: sob fever Patient Location: E HR:77 bpm ECG Measurements Heart Rate 77 AXIS CA 171 P 71 QRSd 84 QRS 72 QT 390 T 70 QTc 440 Conclusion Sinus rhythm...normal P axis, V-rate 60- 99
--- NOTE | 2021-05-16 12:55 | ED.GENADUL_ITS ---
Discharge Plan Disposition Patient Disposition: HOME Condition: Serious Discharge Details Clinical Impression: COPD exacerbation Primary Care Provider: Nataliya Messina ED Provider: Марина Gil Home Meds and New Rx's Prescriptions: New doxycycline monohydrate 100 mg tablet 100 mg PO BID Qty: 20 RF: 0 prednisone 10 mg tablet 10 mg PO DAILY Qty: 56 RF: 0 Continued nitroglycerin 0.4 mg tablet, sublingual 0.4 mg Sublingual as directed Qty: 25 RF: 0 FIBER CHOICE CHEWABLE TABLET 1.5 GM TAB.CHEW 1.5 gm PO DAILY RF: 0 aspirin [Aspir-81] 81 MG tablet,delayed release (DR/EC) 1 tab PO DAILY Qty: 90 RF: 4 metoprolol tartrate 25 mg tablet 25 mg PO BID Qty: 180 RF: 4 lisinopril 20 mg tablet 20 mg PO DAILY Qty: 90 RF: 3 atorvastatin 80 mg tablet 80 mg PO DAILY 360 Days Qty: 90 RF: 4 Breo Ellipta 200-25 mcg/dose blister with device 1 ea Inhalation DAILY Qty: 1 RF: 11 Spiriva Respimat 1.25 mcg/actuation mist 2 inh Inhalation DAILY Qty: 1 RF: 12 clopidogrel 75 mg tablet 75 mg PO DAILY Qty: 90 RF: 4 pantoprazole 20 mg tablet,delayed release (DR/EC) 20 mg PO DAILY Qty: 90 RF: 4 hydrochlorothiazide 25 mg tablet 25 mg PO Q OTHER DAY Qty: 90 RF: 4 ipratropium-albuterol 0.5 mg-3 mg(2.5 mg base)/3 mL solution for nebulization 3 ml inhalation Q6H PRN (Reason: COPD/ J44.9) Qty: 90 RF: 6 Combivent Respimat 20-100 mcg/actuation mist 1 puff Inhalation QID PRN (Reason: copd) Qty: 4 RF: 6 tamsulosin 0.4 mg capsule 0.8 mg PO QHS Qty: 180 RF: 3 acetaminophen [Tylenol] 325 MG tablet 650 mg PO Q4H PRN PRNRF: 0 Discharge Instructions Instructions: COPD (Chronic Obstructive Pulmonary Disease) (ED) Additional Instructions: Take prednisone as prescribed, you received your dose this evening already Continue with tomorrow You received your dose of doxycycline in the emergency room, continue on this medication tomorrow Yogurt daily while on antibiotic You have declined admission and I am concerned about your, I have my recommendation that you be reevaluated either in the emergency room or closely outpatient with your primary care physician We also placed a referral to pulmonology which you should follow up with soon as possible Continue to use your inhalers as prescribed Referrals: Nataliya Messina MD [Primary Care Provider] - Sydnie Ashley MD [ [facility] STAFF PHYSICIAN] - Discharge Data Discharge Date/Time-TO BE ENTERED AT DEPARTURE: 05/16/21 18:34 Medical Decision Making <MARCELLUS Jonas - Last Filed: 05/17/21 08:05> 65-year-old gentleman, former smoker, past medical history of small cell lung cancer, CAD, COPD, presenting generally not feeling well for the past few days, headache, nasal congestion, sore throat, mild dry cough, acute on chronic exertional dyspnea. He presents having walks to exam room 1, O2 sats noted to be 85% at that time. Upon my evaluation he appears well, nontoxic, no evidence of dyspnea, tachypnea, hypoxemia. O2 sats are currently 99% on 2 L nasal cannula. I will trial him off of any O2. Will obtain IV access, give IV fluids and obtain a cardiac work-up. Question viral syndrome versus COPD exacerbation, Covid, pneumonia, etc., based upon presentation extremely low suspicion for PE, atypical ACS, but will obtain a D-dimer. Patient is maintaining an O2 sat of 91-94% on room air. I do not appreciate any wheezes on his examination. I do not think he would likely benefit from any neb treatments. He has taken all of his at home inhalers as directed. Rapid strep is negative. Laboratory values reveal a white blood cell count of 8.72 hemoglobin 12.2 hematocrit 37.8 platelet count 293. INR 1.0. D-dimer is normal when age-adjusted at 597. Sodium is 126, patient appears to have chronic hyponatremia but this is slightly lower than baseline. He is receiving a liter of IV fluid. Potassium is 4.5, creatinine 1.1 with a GFR greater than 60. Magnesium 1.5. Troponin less than 0.05. BNP 511 Chest x-ray unremarkable. No pedal edema. No obvious clinical signs of CHF. Covid negative Patient is afebrile, chest x-ray reveals no evidence of pneumonia, no evidence of leukocytosis. No clear indication for antibiotic therapy at this time. Patient continues to receive 1 L IV fluid, will also give 1 g IV magnesium. Patient states that he is overall feeling better than when he first presented. O2 sat is 93% on room air. Although low suspicion for atypical ACS, he is agreeable to awaiting a repeat troponin. Will repeat troponin, need to trial ambulate and see where his O2 level remain, will also need to closely monitor his acute on chronic hyponatremia. Medical Records Medical records reviewed: Yes I reviewed the patient's medical records. Imaging Data Radiologic Study: Attestation: I personally reviewed and interpreted this imaging study as follows: Imaging: X-Ray Radiologist's impression: Exam(s) XR PORTABLE CHEST AP EXAM: XR PORTABLE CHEST AP CLINICAL HISTORY: cough/sob TECHNIQUE: 2D digital imaging was performed. COMPARISON: CR CHEST 2 VIEWS PA,LAT from 12/10/2017 CT Thorax^CHEST_W_ROUTINE (Adult) from 05/18/[address] CHEST/ABD/PEL W from 08/16/[address] CHEST/ABD/PEL W from 08/16/2018 FINDINGS: LUNGS: Increased density right lung apex with right upper lobe scarring. No mass is identified. There is no evidence of infiltrate or effusion. No pneumothorax. HEART: Normal. MEDIASTINUM: Normal. BONES: Unremarkable. A port is seen over the right chest with the tip at the lower SVC. IMPRESSION: Post surgical changes of the right lung apex. No acute pulmonary findings. Lab Data Lab results reviewed: Yes I reviewed the patient's lab results. Labs: 05/16/21 12:55 Pharynx Group A Streptococcus Culture - Pending Laboratory Tests Range/Units 05/16/21 05/16/21 05/16/21 12:50 12:50 12:50 WBC (4.4-10.8) 10^3/uL 8.72 RBC (4.36-5.78) 10^6/uL 4.70 Hgb (13.5-17.5) g/dL 12.2 L Hct (40.0-50.0) % 37.8 L MCV (80-95) fL 80.4 MCH (27.0-33.0) pg 26.0 L MCHC (32.0-36.0) % 32.3 RDW (11.8-14.1) % 22.1 H Plt Count (130-400) 10^3/uL 293 MPV (8.0-11.0) fL 8.8 Immature Gran % 0.8 Neutrophils % 79.4 Lymphocytes % 4.4 Monocytes % 13.9 Eosinophils % 1.0 Basophils % 0.5 Nucleated RBC % % 0 Absolute Neutrophils (1.2-6.7) 10^3/uL 6.93 H Absolute Lymphocytes (1.2-3.4) 10^3/uL 0.38 L Absolute Monocytes (0.1-0.8) 10^3/uL 1.21 H Absolute Eosinophils (0.0-0.7) 10^3/uL 0.09 Absolute Basophils (0.0-0.2) 10^3/uL 0.04 RBC Morphology See Below Poikilocytosis 2+ Anisocytosis 2+ PT (9.3-11.0) sec INR (0.9-1.1) APTT (21.0-27.5) sec D-Dimer (<500) ng/mlFEU Sodium (136-145) mmol/L 126 L Potassium (3.5-5.1) mmol/L 4.5 Chloride (98-107) mmol/L 91 L Carbon Dioxide (21.0-32.0) mmol/L 29.1 Anion Gap (3-11) mmol/L 5.9 BUN (7-18) mg/dL 19 H Creatinine (0.70-1.30) mg/dL 1.1 Estimated GFR/1.73 m2 (mL/min/1.73m2) >= 60.00 Glucose (74-106) mg/dL 107 H Calcium (8.5-10.1) mg/dL 9.1 Magnesium (1.8-2.4) mg/dL 1.5 L Total Bilirubin (0.2-1.0) mg/dL 0.5 AST (15-37) U/L 17 ALT (16-63) U/L 30 Alkaline Phosphatase (46-116) U/L 110 Troponin I (<0.06) ng/mL < 0.05 NT-Pro-B Natriuret Pep (<300) pg/mL 511 H Total Protein (6.4-8.2) g/dL 7.5 Albumin (3.4-5.0) g/dL 3.9 COVID-19 Source Nasal/Nares SARS-CoV-2 (PCR) (Negative) Negative Range/Units 05/16/21 12:50 WBC (4.4-10.8) 10^3/uL RBC (4.36-5.78) 10^6/uL Hgb (13.5-17.5) g/dL Hct (40.0-50.0) % MCV (80-95) fL MCH (27.0-33.0) pg MCHC (32.0-36.0) % RDW (11.8-14.1) % Plt Count (130-400) 10^3/uL MPV (8.0-11.0) fL Immature Gran % Neutrophils % Lymphocytes % Monocytes % Eosinophils % Basophils % Nucleated RBC % % Absolute Neutrophils (1.2-6.7) 10^3/uL Absolute Lymphocytes (1.2-3.4) 10^3/uL Absolute Monocytes (0.1-0.8) 10^3/uL Absolute Eosinophils (0.0-0.7) 10^3/uL Absolute Basophils (0.0-0.2) 10^3/uL RBC Morphology Poikilocytosis Anisocytosis PT (9.3-11.0) sec 10.4 INR (0.9-1.1) 1.0 APTT (21.0-27.5) sec 29.2 H D-Dimer (<500) ng/mlFEU 597 H Sodium (136-145) mmol/L Potassium (3.5-5.1) mmol/L Chloride (98-107) mmol/L Carbon Dioxide (21.0-32.0) mmol/L Anion Gap (3-11) mmol/L BUN (7-18) mg/dL Creatinine (0.70-1.30) mg/dL Estimated GFR/1.73 m2 (mL/min/1.73m2) Glucose (74-106) mg/dL Calcium (8.5-10.1) mg/dL Magnesium (1.8-2.4) mg/dL Total Bilirubin (0.2-1.0) mg/dL AST (15-37) U/L ALT (16-63) U/L Alkaline Phosphatase (46-116) U/L Troponin I (<0.06) ng/mL NT-Pro-B Natriuret Pep (<300) pg/mL Total Protein (6.4-8.2) g/dL Albumin (3.4-5.0) g/dL COVID-19 Source SARS-CoV-2 (PCR) (Negative) ECG Data Attestation: I personally reviewed and interpreted this ECG (s) as follows: Interpretation: Please see official report by Dr. Alejandro. Sinus rhythm, ventricular rate of 77. No STEMI <MARCELLUS Beltran - Last Filed: 05/16/21 19:09> Care was transferred to md by Andrey Manning physician physiotherapy assistant, patient is noted to be diminished on exam, he is in mild respiratory distress, with any sort of position change or exertion, he desats to 87% He is unable to ambulate more than 30 seconds Here of administered 3 DuoNeb's and feels marked improvement He is quite dyspneic persistently and does continue to desat to 80x0 admission was recommended Patient is adamantly declining admission at this time He received Solu-Medrol in the emergency room and is on appropriate medical therapy at home, that her rescue inhaler He is placed on a prednisone taper and cyclin for COPD exacerbation He does have a strategic account executive at [facility] but prefers to be evaluated here by our strategic account executive so referral was placed for COPD exacerbation Again it is my recommendation that patient be admitted, we made joint decision making inpatient is requesting to be discharged home, he tells me that he will return immediately should he have new or worsening complaints He is aware that he is hypoxic and at risk for further deterioration he remains alert, oriented, of decisional capacity without any evidence of encephalopathy throughout the entirety of this evaluation Medical Records Medical records reviewed: Yes I reviewed the patient's medical records. Lab Data Lab results reviewed: Yes I reviewed the patient's lab results. HPI <MARCELLUS Joans - Last Filed: 05/17/21 08:05> General Mode of arrival: ambulatory . Date/Time Provider Initiated Documentation: 05/16/21 12:16 . Limitations to Documentation: no limitations . Information obtained by: patient . HPI Narrative: This is a 65-year-old gentleman, former smoker, past medical history that includes COPD, exertional dyspnea, history of alcohol abuse, PVD, hypertension, status post small cell lung cancer followed by oncology, [place] with stent placement, taking Plavix daily, presenting to the ER reporting simply not feeling well, fatigue, sore throat, headache, nasal congestion, increased shortness of breath. Reports symptoms pre sent over the past few days. He is not on oxygen at home. Patient reports that he is fully vaccinated against Covid. He denies recent illness or sick contacts. He denies fever, neck pain, chest pains, abdominal pain, nausea, vomiting, dysuria, diarrhea or constipation, pain or swelling in his lower extremities. Patient does verbalize that he is frustrated as he does question if he should be on supplemental oxygen at baseline, has brought this up in the past, but it has never been set up for him. Related Data Home Medications Medication Instructions Recorded Confirmed Fiber Choice Chewable Tablet 1.5 gm PO DAILY tab.chew 09/20/13 12/02/20 aspirin [Aspir-81] 1 tab PO DAILY #90 tab-cap 07/07/17 12/02/20 acetaminophen [Tylenol] 650 mg PO Q4H PRN PRN tab 11/03/17 12/02/20 nitroglycerin 0.4 mg sublingual 0.4 mg SUBLINGUAL as directed #25 12/27/19 12/02/20 tablet tab-cap metoprolol tartrate 25 mg tablet 25 mg PO BID #180 tab-cap 06/07/20 12/02/20 lisinopril 20 mg tablet 20 mg PO DAILY #90 tab-cap 06/13/20 12/02/20 atorvastatin 80 mg tablet 80 mg PO DAILY 360 Days #90 tab-cap 07/29/20 12/02/20 fluticasone furoate 200 1 ea INHALATION DAILY #1 inhaler 08/07/20 12/02/20 mcg-vilanterol 25 mcg/dose inhalation powder tiotropium bromide 1.25 2 inh INHALATION DAILY #1 inhaler 08/07/20 12/02/20 mcg/actuation mist for inhalation clopidogrel 75 mg tablet 75 mg PO DAILY #90 tab-cap 09/30/20 12/02/20 pantoprazole 20 mg tablet,delayed 20 mg PO DAILY #90 tab-cap 09/30/20 12/02/20 release hydrochlorothiazide 25 mg tablet 25 mg PO Q OTHER DAY #90 tab-cap 10/16/20 12/02/20 ipratropium 0.5 mg-albuterol 3 mg 3 ml INHALATION Q6H PRN #90 ml 02/04/21 (2.5 mg base)/3 mL nebulization soln ipratropium 20 mcg-albuterol 100 1 puff INHALATION QID PRN #4 gm 02/07/21 mcg/actuation mist for inhalation tamsulosin 0.4 mg capsule 0.8 mg PO QHS #180 cap 04/28/21 doxycycline monohydrate 100 mg PO BID #20 tab 05/16/21 prednisone 10 mg PO DAILY #56 tab 05/16/21 Previous Rx's Medication Instructions Recorded aspirin [Aspir-81] 1 tab PO DAILY #90 tab-cap 07/07/17 acetaminophen [Tylenol] 650 mg PO Q4H PRN PRN tab 11/03/17 nitroglycerin 0.4 mg sublingual 0.4 mg SUBLINGUAL as directed #25 12/27/19 tablet tab-cap metoprolol tartrate 25 mg tablet 25 mg PO BID #180 tab-cap 06/07/20 lisinopril 20 mg tablet 20 mg PO DAILY #90 tab-cap 06/13/20 atorvastatin 80 mg tablet 80 mg PO DAILY 360 Days #90 tab-cap 07/29/20 fluticasone furoate 200 1 ea INHALATION DAILY #1 inhaler 08/07/20 mcg-vilanterol 25 mcg/dose inhalation powder tiotropium bromide 1.25 2 inh INHALATION DAILY #1 inhaler 08/07/20 mcg/actuation mist for inhalation clopidogrel 75 mg tablet 75 mg PO DAILY #90 tab-cap 09/30/20 pantoprazole 20 mg tablet,delayed 20 mg PO DAILY #90 tab-cap 09/30/20 release hydrochlorothiazide 25 mg tablet 25 mg PO Q OTHER DAY #90 tab-cap 10/16/20 ipratropium 0.5 mg-albuterol 3 mg 3 ml INHALATION Q6H PRN #90 ml 02/04/21 (2.5 mg base)/3 mL nebulization soln ipratropium 20 mcg-albuterol 100 1 puff INHALATION QID PRN #4 gm 02/07/21 mcg/actuation mist for inhalation tamsulosin 0.4 mg capsule 0.8 mg PO QHS #180 cap 04/28/21 doxycycline monohydrate 100 mg PO BID #20 tab 05/16/21 prednisone 10 mg PO DAILY #56 tab 05/16/21 Allergies Allergy/AdvReac Type Severity Reaction Status Date / Time Iodinated Contrast Media Allergy ITCHING Unverified 04/07/21 15:59 [Iodinated Contrast Media - IV Dye] General Stated Complaint: RespSymp ODELL: 2 Review of Systems <MARCELLUS Jonas - Last Filed: 05/17/21 08:05> Constitutional Constitutional: Reports fatigue, Denies fever(s), Reports headache(s) and Denies weakness Eyes Eyes: Denies change in vision ENT Ears, Nose, Mouth, and Throat: Reports headache(s) and Denies neck pain Cardiovascular Cardiovascular: Denies chest pain and Reports dyspnea Respiratory Respiratory: Reports cough and Reports dyspnea Gastrointestinal Gastrointestinal: Denies abdominal pain, Denies nausea and Denies vomiting Musculoskeletal Musculoskeletal: Denies back pain and Denies neck pain Integumentary/Breasts Skin/Breast: Denies rash Neurologic Neurologic: Reports headache(s) and Denies weakness Endocrine Endocrine: Reports fatigue Hematologic/Lymphatic Hematologic/Lymphatic: Reports easy bleeding and Reports easy bruising PFSH <MARCELLUS Jonas - Last Filed: 05/17/21 08:05> Active Problem List Chronic obstructive pulmonary disease (Chronic) Exertional dyspnea (Acute) History of alcoholism (Acute) History of left cataract extraction (Acute 09/18/14) Stenosis of right carotid artery (Acute 10/20/16) Smoker (Acute) Polyp of colon (Acute) Peripheral vascular disease (Acute) Lumbago (Acute) Hyperlipidemia (Acute 02/09/13) Essential hypertension (Acute 05/09/13) Diverticulosis of colon without diverticulitis (Acute) Coronary artery disease (Acute 07/11/14) Chronic obstructive lung disease (Acute) Central retinal artery occlusion, right eye (Acute 10/20/16) Carotid artery stenosis (Acute) Medical History CAD (coronary artery disease) COPD (chronic obstructive pulmonary disease) Essential hypertension H/O diverticulitis of colon Hyperlipidemia Polyp of transverse colon PVD (peripheral vascular disease) Surgical History Carotid endarterectomy Colonoscopy - MAC Coronary Stent Extraction of cataract 09/18/14; DR. PAGAN LEFT EYE Family History Father Essential hypertension Hyperlipidemia Stroke Social History Smoking/Tobacco Use Status: Former Tobacco Use Smoking risk assessment performed?: Yes Drug use: Current Sobriety Do you feel safe in your relationship?: Yes Exam <MARCELLUS Jonas - Last Filed: 05/17/21 08:05> Const General: cooperative, healthy appearing, comfortable and no acute distress Orientation: alert, awake and oriented x3 HENMT Head: normal to inspection, normocephalic and atraumatic Face and sinus: normal facial exam Mouth: moist mucous membranes Eyes General: appearance normal, both eyes and all related structures Conjunctivae: conjunctivae normal Neck Neck: normal visual inspection, full ROM, no meningeal signs, trachea midline and supple Resp Effort & Inspection: normal respiratory effort, able to speak in complete sentences and cough Quality of cough: dry (Mild dry) Auscultation: diminished lung sounds bilaterally in the lower lung nielsen Cardio Rate: regular rate Rhythm: regular rhythm GI Palpation: soft, not firm, no guarding, no pulsatile masses and nontender Back/Spine/Pelvis Back: No back tenderness Skin General skin exam: no rashes or lesions noted Neuro General: patient alert, patient awake, patient oriented x3, moves all extremities and no focal motor deficits Cognition: normal cognition Speech: speech normal Gait: normal gait Sensory Exam: no sensory deficits noted Extrem General: normal to inspection, full ROM, capillary refill normal, no pedal edema and no calf tenderness Psych Appearance: grossly normal Mental Status: mental status grossly normal Course <MARCELLUS Jonas - Last Filed: 05/17/21 08:05> Vital Signs Vital signs: Vital Signs Temperature 37.0 C 05/16/21 12:20 Pulse 77 05/16/21 12:20 Respiratory Rate 20 05/16/21 12:20 Blood Pressure 158/63 H 05/16/21 12:20 Pulse Oximetry 85 L 05/16/21 12:20 Temperature 37.0 C 05/16/21 12:20 Temperature Source Skin 05/16/21 12:20 Pulse 77 05/16/21 12:20 Respiratory Rate 20 05/16/21 12:20 Respiratory Effort Labored 05/16/21 12:27 Blood Pressure 158/63 H 05/16/21 12:20 Blood Pressure Position Sitting 05/16/21 12:20 Pulse Oximetry 85 L 05/16/21 12:20 Oxygen Delivery Method Room Air 05/16/21 12:20 Oxygen Flow Rate 0 05/16/21 12:20 Comment 05/16/21 12:20 Sign Out <MARCELLUS Jonas - Last Filed: 05/17/21 08:05> Sign Out Data: Sign Out Comment: Patient would prefer to be discharged home. Awaiting repeat troponin. Patient was given 125 IV Solu-Medrol and is receiving a single liter of IV normal saline. He is not requiring any supplemental oxygen. If repeat troponin is unremarkable, need to trial ambulation, and if he continues to wish to be discharged home likely burst dose steroids and close outpatient follow-up for acute on chronic hyponatremia Last updated by Andrey Manning PA at 05/16/21 15:43 PAWSS <MARCELLUS Jonas - Last Filed: 05/17/21 08:05> Have you Been Recently Intoxicated or Drunk Within the Last 30 days?: No Have you Ever Experienced Previous Episodes of Alcohol Withdrawal?: No Have you ever Experienced Withdrawal Seizures?: No Have you ever Experienced Delirium Tremens(DT)s?: No Have you ever undergone Alcohol Rehabilitation Treatment (i.e, inpt ot outpatient treatment programs)?: No Have you ever Experienced Blackouts?: No Have you ever Combined Alcohol with other Downers within the last 90 days?: No Have you ever Combined Alcohol with any other Substance of Abuse during the last 90 days?: No Positive Blood Alcohol level on Presentation? [PCS.BAL]: No Evidence of Increased Autonomic Activity (i.e. HR>120, tremor, sweating, agitation, nausea)?: No Result: 0
[2021-05-16 13:05] LABS: Source Nasal/Nares
[2021-05-16 13:10] LABS: Abs Immature Grans 0.07 10^3/uL (0.0-0.06); Absolute Basophil Count 0.04 10^3/uL (0.0-0.2); Absolute Eosinophil Count 0.09 10^3/uL (0.0-0.7); Absolute Lymphocyte Count 0.38 10^3/uL (1.2-3.4); Absolute Monocyte Count 1.21 10^3/uL (0.1-0.8); Absolute Neutrophil Count 6.93 10^3/uL (1.2-6.7); Basophils % 0.5; HCT 37.8 % (40.0-50.0); HGB 12.2 g/dL (13.5-17.5); Immature Grans % 0.8; Lymphocytes % 4.4; MCHC 32.3 % (32.0-36.0); MCV 80.4 fL (80-95); MPV 8.8 fL (8.0-11.0); Monocytes % 13.9; Neutrophils % 79.4; Nucleated RBC 0 %; Platelet Count 293 10^3/uL (130-400); RDW 22.1 % (11.8-14.1); RDW-SD 64.2 fL; WBC 8.72 10^3/uL (4.4-10.8)
[2021-05-16 13:29] LABS: ALT 30 U/L (16-63); AST 17 U/L (15-37); Albumin 3.9 g/dL (3.4-5.0); Alkaline Phosphatase 110 U/L (46-116); Anion Gap 5.9 mmol/L (3-11); BUN 19 mg/dL (7-18); Bilirubin, Total 0.5 mg/dL (0.2-1.0); CO2 29.1 mmol/L (21.0-32.0); CREATININE 1.1 mg/dL (0.70-1.30); Calcium 9.1 mg/dL (8.5-10.1); Chloride 91 mmol/L (98-107); Glucose 107 mg/dL (74-106); Magnesium 1.5 mg/dL (1.8-2.4); NT-proBNP 511 pg/mL (<300); Potassium 4.5 mmol/L (3.5-5.1); Sodium 126 mmol/L (136-145); Total Protein 7.5 g/dL (6.4-8.2)
[2021-05-16 13:30] LABS: Anisocytosis 2+; Diff Comment Diff Reviewed
[2021-05-16 13:31] LABS: Poikilocytes 2+
[2021-05-16 13:33] LABS: Troponin I < 0.05 ng/mL (<0.06)
[2021-05-16 13:39] LABS: PTT Activated 29.2 sec (21.0-27.5); Prothrombin Time 10.4 sec (9.3-11.0)
[2021-05-16 13:41] LABS: D-Dimer 597 ng/mlFEU (<500)
--- NOTE | 2021-05-16 13:50 | DI.RAD_ITS ---
Exam(s) XR PORTABLE CHEST AP EXAM: XR PORTABLE CHEST AP CLINICAL HISTORY: cough/sob TECHNIQUE: 2D digital imaging was performed. COMPARISON: CR CHEST 2 VIEWS PA,LAT from 12/10/[address] CHEST/ABD/PEL W from 08/16/[address] CHEST/ABD/PEL W from 08/16/2018 FINDINGS: LUNGS: Increased density right lung apex with right upper lobe scarring. No mass is identified. The re is no evidence of infiltrate or effusion. No pneumothorax. HEART: Normal. MEDIASTINUM: Normal. BONES: Unremarkable. A port is seen over the right chest with the tip at the lower SVC. IMPRESSION: Post surgical changes of the right lung apex. No acute pulmonary findings. DATA REPOSITORY: RADIATION DOSE DELIVERED:
[2021-05-16 14:09] LABS: COVID-19 PCR Negative (Negative)
[2021-05-16] MEDS: MAGNESIUM SULFATE 1 GM/100 ML BAG IVPB (14:16)
[2021-05-16] MEDS: Normal Saline 1,000 ML 1000 ML IV (14:16)
[2021-05-16] MEDS: methylPREDNISolone SUCC 125 MG VIAL IVP (14:52)
[2021-05-16 16:38] LABS: Troponin I < 0.05 ng/mL (<0.06)
[2021-05-16] MEDS: Albuterol/Ipratropium 3 ML UPD VIAL ×2 (17:03→17:27)
--- NOTE | 2021-05-16 18:18 | NUR.NOTE ---
Nursing Note: Referrral faxed to [facility] Pulmonology for follow up of COPD exacerbation, JULIEN. Deisi Rosenbaum
[2021-05-16] MEDS: Doxycycline Hyclate 100 MG CAP PO (18:24)
[2021-05-16] MEDS: Metoprolol 25 MG TAB PO (18:24)
[2021-05-16] MEDS: Heparin 500 UNITS/5 ML SYRINGE (18:30)
== END 2021-05-16 18:34 | disposition home or self-care (01) ==
PROVIDERS: Physician Assistant; Emergency Provider Physician Assistant; PCP Family Medicine
DX: J44.1 Chronic obstructive pulmonary disease with (acute) exacerbation (principal); R06.09 Other forms of dyspnea; E83.42 Hypomagnesemia; R09.02 Hypoxemia; Z87.891 Personal history of nicotine dependence; Z45.2 Encounter for adjustment and management of vascular access device; Z20.822 Contact with and (suspected) exposure to COVID-19; Z03.818 Encounter for observation for suspected exposure to other biological agents ruled out; Z53.29 Procedure and treatment not carried out because of patient's decision for other reasons; Z79.82 Long term (current) use of aspirin; Z79.83 Long term (current) use of bisphosphonates
CPT/HCPCS: 36591; 80053; 87635; 87880; 93005; 94640; 96361; 96365; 96375; 99285; 71045; 83735; 83880; 84484; 85025; 85379; 85610; 85730; 87081; 93010; J2930; J3475; J7620

== ENCOUNTER 2021-07-03 04:36 | Outpatient (CLI) | payer MEDICARE, SELFPAY ==
--- NOTE | 2021-07-04 14:22 | W.PFT ---
Date of service: 07/04/21 Time of Service: 13:19 Pulmonary Function Test Result Requesting Provider Gabi Indications: ESCAMILLA Interpretation Spirometry: There is severe airflow limitation. There is no significant bronchodilator response. Lung Volumes: There is significant hyperinflation and air trapping. Diffusion Capacity: There is a reduced diffusion Airway Pressure: Increased airways resistance Impression Severe airflow obstruction with a reduced diffusion and signs of air trapping. Note: When compared to 07/10/19, the FEV1 and FVC has slightly improved and the diffusion is stable. Clinical Correlation therefore is recommended.
== END 2021-07-03 04:37 | disposition home or self-care (01) ==
PROVIDERS: PCP Family Medicine; Visit Provider Student in an Organized Health Care Education/Training Program
DX: J44.9 Chronic obstructive pulmonary disease, unspecified (principal); R06.09 Other forms of dyspnea; Z87.891 Personal history of nicotine dependence; R94.2 Abnormal results of pulmonary function studies
CPT/HCPCS: 94060; 94618; 94726; 94729

== ENCOUNTER 2021-09-17 03:32 | Outpatient (CLI) | payer MEDICARE, SELFPAY ==
[2021-09-17 10:48] LABS: BE -1 mmol/L (-2-3); HCO3 24 mmol/L (22-26); TCO2 25 mmol/L (23-27); pCO2 38 mmHg (35-45); pO2 69 mmHg (80-105); sO2 94 % (95-98)
[2021-09-17 10:49] LABS: Site Right Radial
== END 2021-09-17 03:33 | disposition home or self-care (01) ==
PROVIDERS: PCP Family Medicine; Visit Provider Student in an Organized Health Care Education/Training Program
DX: J44.9 Chronic obstructive pulmonary disease, unspecified (principal)
CPT/HCPCS: 82803; 36600

== ENCOUNTER 2021-10-27 01:55 | Outpatient (CLI) | payer MEDICARE, SELFPAY ==
--- NOTE | 2021-10-28 09:31 | W.PFT ---
Date of service: 10/27/21 Time of Service: 09:00 Pulmonary Function Test Result Indications: COPD 6 Minute Walk Test Distance: 300 feet Desaturation to 91% at 4:30 with no further desaturations. Recommendation: No supplementary oxygen required at baseline or with exertion. Sydnie Ashley MD
== END 2021-10-27 01:56 | disposition home or self-care (01) ==
LOC: RT 01:55
PROVIDERS: PCP Family Medicine; Visit Provider Student in an Organized Health Care Education/Training Program
DX: J44.9 Chronic obstructive pulmonary disease, unspecified (principal)
CPT/HCPCS: 94618; G0237

== ENCOUNTER 2022-03-24 02:04 | Outpatient (CLI) | payer MEDICARE, SELFPAY ==
[2022-03-24 12:15] LABS: HCT 41.1 % (40.0-50.0); MCH 26.6 pg (27.0-33.0); MCHC 31.6 % (32.0-36.0); MCV 84 fL (80-95); MPV 9.3 fL (8.0-11.0); Platelet Count 383 10^3/uL (130-400); RBC 4.89 10^6/uL (4.36-5.78); RDW 19.3 % (11.8-14.1); RDW-SD 58.9 fL; WBC 10.49 10^3/uL (4.4-10.8)
[2022-03-24 12:24] LABS: Iron 49 ug/dL (65-175); Total Iron Binding Capacity 372 ug/dL (250-450); Transferrin Sat 13 % (20-55)
[2022-03-24 12:40] LABS: Sodium, Urine 46 mmol/L
[2022-03-24 12:50] LABS: ALT 25 U/L (16-63); AST 18 U/L (15-37); Alkaline Phosphatase 101 U/L (46-116); Anion Gap 7.7 mmol/L (3-11); BUN 20 mg/dL (7-18); Bilirubin, Total 0.5 mg/dL (0.2-1.0); CO2 28.3 mmol/L (21.0-32.0); CREATININE 1.1 mg/dL (0.70-1.30); Calcium 9.6 mg/dL (8.5-10.1); Calculated LDL 59 mg/dL (<100); Chloride 98 mmol/L (98-107); Cholesterol 123 mg/dL (<200); Estimated GFR 73.58 (mL/min/1.73m2); Ferritin 57 ng/mL (26-388); Glucose 97 mg/dL (74-106); HDL Cholesterol 54 mg/dL (40-60); Magnesium 1.9 mg/dL (1.8-2.4); Potassium 4.5 mmol/L (3.5-5.1); Sodium 134 mmol/L (136-145); TSH (W/Ref FT4) 1.86 uIU/mL (0.36-3.74); Total Protein 7.7 g/dL (6.4-8.2); Triglyceride 50 mg/dL (<150); Vitamin B12 418 pg/mL (193-986)
[2022-03-24 17:42] LABS: Osmolality, Urine 337 mOsm/kg (150-1,150)
== END 2022-03-24 02:05 | disposition home or self-care (01) ==
LOC: LOS 02:04
PROVIDERS: PCP Nurse Practitioner Family; Visit Provider Family Medicine
DX: I10 Essential (primary) hypertension (principal); I25.10 Atherosclerotic heart disease of native coronary artery without angina pectoris; E78.5 Hyperlipidemia, unspecified; D64.9 Anemia, unspecified; E87.1 Hypo-osmolality and hyponatremia; J44.9 Chronic obstructive pulmonary disease, unspecified; Z79.899 Other long term (current) drug therapy
CPT/HCPCS: 36415; 80053; 80061; 83935; 85027; 82607; 82728; 83540; 83550; 83735; 84300; 84443

== ENCOUNTER 2022-04-10 00:49 | Outpatient (CLI) | payer MEDICARE, SELFPAY ==
--- NOTE | 2022-04-10 13:45 | DI.CT_ITS ---
Exam(s) CT CHEST W EXAM: CT CHEST W CLINICAL HISTORY: SMALL CELL LUNG CA, C34.90; ASSESS TX RESPONSE. TECHNIQUE: Multi planar reconstructions were performed. CONTRAST MATERIAL: Omnipaque 350; 75 cc CR XR PORTABLE CHEST AP from 05/16/2021 FINDINGS: CHEST: LUNGS: The previously present spiculated mass in the right upper lobe is no longer seen. However, th ere is presently some infiltrate extending from the right suprahilar region up to the right apical pl eural surface, corresponding to what is seen on recent chest x-ray and not associated with overlying rib destruction. Possibly related to postsurgical changes. No other right lung findings evident and no layering pleural effusion. Thin-walled bulla in the lateral basal segment of the right lower lob e is unchanged. In the opposite-left lung there are no significant new focal findings. No pleural effusion. MEDIASTINUM: There is no hilar nor mediastinal adenopathy. Distal tip of the Port-A-Cath is at the lo wer SVC.Thyroid gland size is normal. There are few small nodules in the left thyroid lobe noted. CARDIAC: Heart size is normal. However, there is now a small pericardial effusion which was not prev iously present. This is predominantly around the base of the heart and exhibits maximum thickness of 1.7 cm.Caliber thoracic aorta is within normal limits. No evidence of dissection. VISUALIZED UPPER ABDOMEN:There are no significant adrenal masses. Abdominal aortic aneurysm is incid entally noted. Also multiple small hypodensities in the liver which are benign in appearance, measur ing less than 1 cm, and have the appearance of benign cysts. No obvious metastatic appearing lesions in the liver, realizing the entire liver is not included in the field of view here. No adrenal mass es. OSSEOUS: No significant osseous lesions.. IMPRESSION: 1. Compared to the prior CT scan of 2018 the right upper lobe spiculated mass is no longer seen. How ever, there is infiltrate extending from the right hilum up to the apex pleural surface with some flu id. Probably postoperative change. There are no other pulmonary findings. No new distinct nodules. No layering pleural fluid. No obvious new intrathoracic adenopathy. 2. There is a pericardial effusion as described above which was not present in 2018. Requires follow -up. 3. Benign cysts again noted in the liver, unchanged from 2018. No adrenal masses. RADIATION DOSE DELIVERED: 530.93mGy.cm Total DLP DATA REPOSITORY: All CT scans at this facility are submitted to the National Radiology Data Registry (NRDR) Dose Index Registry (DIR) with the [employer] (ACR). RADIATION OPTIMIZATION: All CT scans at this facility use at least one of these dose optimization te chniques: automated exposure control; mA and/or kV adjustment per patient size (includes targeted exa ms where dose is matched to clinical indication); or iterative reconstruction.
[2022-04-10] MEDS: Omnipaque 350 MG/ML 500 ML BTL-Imaging package IJ (14:03)
[2022-04-10] MEDS: Normal Saline Flush 10 ML SYR IVP (14:04)
== END 2022-04-10 01:09 ==
LOC: DI 00:49
PROVIDERS: PCP Nurse Practitioner Family; Visit Provider Internal Medicine
DX: I31.39 Other pericardial effusion (noninflammatory) (principal); K76.89 Other specified diseases of liver
CPT/HCPCS: 96523; 71260

== ENCOUNTER 2022-04-10 01:17 | Outpatient (RCR) | payer MEDICARE, SELFPAY ==
[2022-04-10] MEDS: Normal Saline Flush 10 ML SYR IVP (13:06)
== END 2022-04-20 23:59 | disposition home or self-care (01) ==
LOC: INF 01:17
PROVIDERS: PCP Nurse Practitioner Family; Visit Provider Internal Medicine
DX: Z45.2 Encounter for adjustment and management of vascular access device (principal)
CPT/HCPCS: 96523

== ENCOUNTER 2022-07-28 04:39 | Outpatient (CLI) | payer MEDICARE, SELFPAY ==
[2022-07-28] MEDS: Albuterol HFA 18 GM 200 PUFF INH IH (11:00)
[2022-07-28] MEDS: Inhaler, Assist Device 1 EACH MC (11:01)
--- NOTE | 2022-07-29 07:26 | W.PFT ---
Date of service: 07/28/22 Time of Service: 10:05 Pulmonary Function Test Result Requesting Provider Gabi Indications: Dyspnea, COPD Interpretation Spirometry: There is severe airflow limitation. There is likely a significant bronchodilator response, although all criteria not met. Lung Volumes: There is severe hyperinflation and air trapping. Diffusion Capacity: There is severely diminished diffusion. Airway Pressure: There is increased airways resistance. Impression Severe airflow obstruction with air trapping and a decreased diffusion consistent with severe COPD with emphysema. Note: When compared to 07/03/21, his FEV1 and FVC are decreased, his air trapping is worse, and diffusion is decreased. Clinical Correlation therefore is recommended.
== END 2022-07-28 04:40 | disposition home or self-care (01) ==
LOC: RT 04:39
PROVIDERS: PCP Nurse Practitioner Family; Visit Provider Student in an Organized Health Care Education/Training Program
DX: R94.2 Abnormal results of pulmonary function studies (principal); J44.9 Chronic obstructive pulmonary disease, unspecified; R06.09 Other forms of dyspnea; Z87.891 Personal history of nicotine dependence
CPT/HCPCS: 94060; 94726; 94729; 96523

== ENCOUNTER 2022-07-28 10:56 | Outpatient (RCR) | payer MEDICARE, SELFPAY ==
[2022-07-28] MEDS: Normal Saline Flush 10 ML SYR IVP (11:34)
[2022-07-28] MEDS: Heparin 500 UNITS/5 ML SYRINGE IV (11:35)
== END 2022-08-18 23:59 | disposition home or self-care (01) ==
LOC: INF 10:56
PROVIDERS: PCP Nurse Practitioner Family; Visit Provider Internal Medicine
DX: Z45.2 Encounter for adjustment and management of vascular access device (principal)
CPT/HCPCS: 96523

== ENCOUNTER 2022-10-13 02:20 | Outpatient (RCR) | payer MEDICARE, SELFPAY ==
[2022-10-13] MEDS: Normal Saline Flush 10 ML SYR IVP (13:49)
[2022-10-13 14:10] LABS: Abs Immature Grans 0.11 10^3/uL (0.0-0.06); Absolute Basophil Count 0.08 10^3/uL (0.0-0.2); Absolute Eosinophil Count 0.14 10^3/uL (0.0-0.7); Absolute Lymphocyte Count 0.45 10^3/uL (1.2-3.4); Absolute Monocyte Count 1.23 10^3/uL (0.1-0.8); Absolute Neutrophil Count 7.68 10^3/uL (1.2-6.7); Basophils % 0.8; Eosinophils % 1.4; HCT 40.2 % (40.0-50.0); Immature Grans % 1.1; Lymphocytes % 4.6; MCH 25.6 pg (27.0-33.0); MCHC 32.3 % (32.0-36.0); MCV 79 fL (80-95); MPV 8.8 fL (8.0-11.0); Monocytes % 12.7; Neutrophils % 79.4; Platelet Count 442 10^3/uL (130-400); RBC 5.07 10^6/uL (4.36-5.78); RDW 16.6 % (11.8-14.1); RDW-SD 47.2 fL; WBC 9.69 10^3/uL (4.4-10.8)
[2022-10-13 15:05] LABS: ALT 46 U/L (16-63); AST 23 U/L (15-37); Albumin 3.7 g/dL (3.4-5.0); Alkaline Phosphatase 134 U/L (46-116); Anion Gap 7.5 mmol/L (3-11); BUN 13 mg/dL (7-18); Bilirubin, Total 0.2 mg/dL (0.2-1.0); CO2 27.5 mmol/L (21.0-32.0); Chloride 101 mmol/L (98-107); Estimated GFR 81.98 (mL/min/1.73m2); Ferritin 42 ng/mL (26-388); Glucose 117 mg/dL (74-106); Potassium 4.4 mmol/L (3.5-5.1); Sodium 136 mmol/L (136-145); Total Protein 7.6 g/dL (6.4-8.2)
[2022-10-14 13:51] LABS: Hemoglobin A1C 6.3 % (<5.7)
== END 2022-10-18 23:59 | disposition home or self-care (01) ==
LOC: INF 02:20
PROVIDERS: PCP Nurse Practitioner Family; Visit Provider Internal Medicine
DX: C34.11 Malignant neoplasm of upper lobe, right bronchus or lung (principal); R73.03 Prediabetes; Z45.2 Encounter for adjustment and management of vascular access device; D50.9 Iron deficiency anemia, unspecified
CPT/HCPCS: 36591; 80053; 82728; 83036; 85025

== ENCOUNTER → 2023-04-20 10:18 | Outpatient (BNVA) | payer MEDICARE, SELFPAY | PROVIDERS: PCP Nurse Practitioner Family; Referring Provider Nurse Practitioner Family; Visit Provider Student in an Organized Health Care Education/Training Program | DX: J44.9 Chronic obstructive pulmonary disease, unspecified (principal); Z79.51 Long term (current) use of inhaled steroids; Z87.891 Personal history of nicotine dependence; J96.91 Respiratory failure, unspecified with hypoxia | CPT/HCPCS: 99214 ==

== ENCOUNTER 2023-05-04 00:59 | Outpatient (RCR) | payer MEDICARE, SELFPAY ==
[2023-05-04] MEDS: Normal Saline Flush 10 ML SYR IVP (11:17)
[2023-05-04] MEDS: Heparin 500 UNITS/5 ML SYRINGE IV (11:17)
== END 2023-05-20 23:59 | disposition home or self-care (01) ==
LOC: INF 00:59
PROVIDERS: PCP Nurse Practitioner Family; Visit Provider Nurse Practitioner Family
DX: Z45.2 Encounter for adjustment and management of vascular access device (principal)
CPT/HCPCS: 96523

== ENCOUNTER 2023-06-01 03:03 | Outpatient (RCR) | payer MEDICARE, SELFPAY ==
[2023-06-01] MEDS: Heparin 500 UNITS/5 ML SYRINGE IV (11:04)
[2023-06-01] MEDS: Normal Saline Flush 10 ML SYR IVP (11:05)
== END 2023-06-20 23:59 | disposition home or self-care (01) ==
LOC: INF 03:03
PROVIDERS: PCP Nurse Practitioner Family; Visit Provider Nurse Practitioner Family
DX: Z45.2 Encounter for adjustment and management of vascular access device (principal)
CPT/HCPCS: 96523

== ENCOUNTER 2023-07-06 03:34 | Outpatient (RCR) | payer MEDICARE, SELFPAY ==
[2023-07-06] MEDS: Normal Saline Flush 10 ML SYR IVP (10:41)
== END 2023-07-21 23:59 | disposition home or self-care (01) ==
LOC: INF 03:34
PROVIDERS: PCP Nurse Practitioner Family; Visit Provider Nurse Practitioner Family
DX: Z85.118 Personal history of other malignant neoplasm of bronchus and lung; Z45.2 Encounter for adjustment and management of vascular access device
CPT/HCPCS: 96523

== ENCOUNTER 2023-08-04 02:26 | Outpatient (RCR) | payer MEDICARE, SELFPAY ==
[2023-08-04] MEDS: Normal Saline Flush 10 ML SYR IVP (10:55)
== END 2023-08-19 23:59 | disposition home or self-care (01) ==
LOC: INF 02:26
PROVIDERS: PCP Nurse Practitioner Family; Visit Provider Nurse Practitioner Family
DX: D50.9 Iron deficiency anemia, unspecified (principal); Z45.2 Encounter for adjustment and management of vascular access device
CPT/HCPCS: 96523

== ENCOUNTER 2023-09-08 04:46 | Outpatient (RCR) | payer MEDICARE, SELFPAY ==
[2023-09-08] MEDS: Normal Saline Flush 10 ML SYR IVP (10:47)
== END 2023-09-19 23:59 | disposition home or self-care (01) ==
LOC: INF 04:46
PROVIDERS: PCP Nurse Practitioner Family; Visit Provider Nurse Practitioner Family
DX: D50.9 Iron deficiency anemia, unspecified (principal); C34.11 Malignant neoplasm of upper lobe, right bronchus or lung
CPT/HCPCS: 96523

== ENCOUNTER → 2023-10-18 09:20 | Outpatient (BNVA) | payer MEDICARE, SELFPAY | PROVIDERS: PCP Nurse Practitioner Family; Referring Provider Nurse Practitioner Family; Visit Provider Physician Assistant Surgical | DX: J44.9 Chronic obstructive pulmonary disease, unspecified (principal); Z87.891 Personal history of nicotine dependence; Z85.118 Personal history of other malignant neoplasm of bronchus and lung | CPT/HCPCS: 99214 ==

== ENCOUNTER 2023-12-01 00:59 | Outpatient (RCR) | payer MEDICARE, SELFPAY ==
[2023-12-01] MEDS: Normal Saline Flush 10 ML SYR IVP (11:22)
== END 2023-12-19 23:59 | disposition home or self-care (01) ==
LOC: INF 00:59
PROVIDERS: PCP Nurse Practitioner Family; Visit Provider Nurse Practitioner Family
DX: Z45.2 Encounter for adjustment and management of vascular access device (principal)
CPT/HCPCS: 96523

== ENCOUNTER 2024-01-05 02:39 | Outpatient (RCR) | payer MEDICARE, SELFPAY ==
--- OUTSIDE RECORDS SUMMARY | 2024-01-05 02:41 | XMS_ITS | Encounter Summary ---
Author Organization [facility] Address [facility] [place] [address] Care Team Providers Care Gritting Machine Operator Name Role Phone SusanSayra noel DEVANTE Primary Care Provider [phone] Reason for Visit * Diagnostic Test (Routine) - Closed Specialty Diagnoses / Procedures Referred By Contac t Referred To Contact Radiology Diagnoses Small cell lung cancer, right upper lobe Procedures NM PET CT Skull Base to Mid-thigh Heber Phillips MD [facility] DR HEMATOLOGY/[place] [address] [place] [address] Referral ID Status Reason Start Date Expiration Date V isits Requested Visits Authorized [id number] Closed Specialty Service Requested 10/13/2022 04/14/2024 1 1 Encounter Details Date Type Department Care Team (Latest Contact Info) Description 10/11/2023 9:26 AM EDT - 10/11/2023 11:06 AM EDT Hospital Encounter [place] [address] Heber Phillips MD [facility] HEMATOLOGY/[place] [address] Discharge Disposition: Home Social History Tobacco Use Types Packs/Day Years Used Date Smoking Tobacco: Former Cigarettes 2 47 0 09/11/1966 - 09/11/2013 Smokeless Tobacco: Never Alcohol Use Standard Drinks/Week Comments Yes 2 (1 standard drink = 0.6 oz pure alcohol) Sober 25 years the summer Sex and Gender Information Value Date Recorded Sex Assigned at Not on file Gender Identity Not on file Sexual Orientation Not on file documented as of this encounter Medications at Time of Discharge Medication Sig Dispensed Refills Start Date End Date azithromycin (Zithromax) 250 mg tablet Take by mouth daily. Day1:take 2 tablets daily, Day 2-5:Take one tablet daily nitroGLYcerin (Nitrostat) 0.4 mg Tablet, SublingualIndications :Coronary artery disease involving [place] heart without angina pectoris, unspecified vessel or lesion type Place 1 tablet under the tongue every 5 minutes as needed for Chest pain (maximum 3 per day). 25 tablet 12 04/30/2021 albuteroL (ACCUNEB) 1.25 mg/3 mL Solution for Nebulization Take 1 ampule by nebulization every 6 hours as needed for Wheezing. acetaminophen (Tylenol) 325 mg Tablet Take by mouth. 11/03/2017 Combivent Respimat 20-100 mcg/actuation Mist INHALE 1 PUFF BY MOUTH FOUR TIMES A DAY NEEDED FOR COPD 04/09/2020 pantoprazole (PROTONIX) 40 mg Tablet, Delayed Release (E.C.) Take 40 mg by mouth daily. magnesium chloride (MAG-DELAY ORAL) Take 1 tablet by mouth every other day. tiotropium (Spiriva with HandiHaler) 18 mcg Capsule, w/Inhalation Device Inhale 18 mcg into the lungs daily. 2 puffs QD lisinopril (PRINIVIL;ZESTRIL) 20 mg Tablet Take 1 tablet by mouth daily. 90 tablet 3 10/22/2016 meTOPROLOL tartrate (LOPRESSOR) 25 mg Tablet Take 1 tablet by mouth 2 times daily. 180 tablet 3 10/22/2016 fluticasone furoate-vilanteroL (Breo Ellipta) 100-25 mcg/dose Disk with Device Inhale 1 puff into the lungs daily. atorvastatin (LIPITOR) 80 mg tablet Take 1 tablet by mouth daily. 30 tablet 2 09/13/2013 FIBER CHOICE ORAL Take 1 tablet by mouth daily. aspirin 81 mg EC tablet Take 81 mg by mouth daily. hydrochlorothiazide (HYDRODIURIL) 25 mg tablet Take 25 mg by mouth every other day. 10/12/2023 documented as of this encounter Plan of Treatment Upcoming Encounters Date Type Department Care Team (Late st Contact Info) Description 01/10/2024 7:45 AM EDT Appointment Hematology [place] [address] 01/21/2024 10:[address] [place] [place] [address] Heber Phillips MD [facility] [address] HEMATOLOGY/[place] [address] 03/28/2024 10:00 AM EDT Office Visit Hematology/Oncology at [address] [address] Heber Phillips MD [facility] HEMATOLOGY/[place] [address] Isabella Baker APRN [facility] [place] [address] documented as of this encounter Procedures Procedure Name Priority Date/Time Associated Diagnosis Comments NM PET CT SKULL BASE TO MID-THIGH ([facility]) Routine 10/11/2023 11:20 AM EDT Small cell lung cancer, right upper lobe POCT GLUCOSE Routine 10/11/2023 9:40 AM EDT documented in this encounter Results * POCT Glucose (10/11/2023 9:40 AM EDT) POC Glucose 107 65 - 199 mg/dL [facility] Comment: Supplemental ranges: <140 mg/dL before meals <180 mg/dL all other times of the day Blood 10/11/2023 9:40 AM EDT 10/11/2023 9:40 AM EDT Heber Phillips MD POINT OF CARE TEST O RDERABLES [facility] [place] [address] documented in this encounter Visit Diagnoses Not on filedocumented in this encounter Care Teams Gritting Machine Operator Relationship Specialty Start Date End Date Sayra HawkDEVANTE [address] [place] [address] PCP - General Family Medicine 11/03/22 documented as of this encounter
--- OUTSIDE RECORDS SUMMARY | 2024-01-05 02:41 | XMS_ITS | Encounter Summary ---
Author Organization [facility] [place] [address] Care Team Providers Care Lang Interpreter Name Role Phone Sayra Hawk APRN Primary Care Provider [phone] Reason for Referral * Diagnostic Test (Routine) - Closed Specialty Diagnoses / Procedures Referred By Contac t Referred To Contact Cardiology Diagnoses Chest pain, unspecified type Procedures Nuclear Pharmacologic Stress Cardiology (PET CT Mobile) Faustina Miller MD [facility] [place] [address] [facility] [place] [address] Referral ID Status Reason Start Date Expiration Date V isits Requested Visits Authorized [id number] Closed Specialty Service Requested 11/03/2022 11/03/2023 1 1 Reason for Visit * Diagnostic Test (Routine) - Closed Specialty Diagnoses / Procedures Referred By Contac t Referred To Contact Cardiology Diagnoses Chest pain, unspecified type Procedures Nuclear Pharmacologic Stress Cardiology (PET CT Mobile) Faustina Miller MD [facility] [place] [address] [facility] [place] [address] Referral ID Status Reason Start Date Expiration Date V isits Requested Visits Authorized [id number] Closed Specialty Service Requested 11/03/2022 11/03/2023 1 1 Encounter Details Date Type Department Care Team (Latest Contact Info) Description 12/08/2022 11:32 AM EDT - 12/08/2022 11:59 PM EDT Hospital Encounter Non-Invasive Cardiology Lab Count Includes [facility] [place] [address] Faustina Miller MD [facility] [place] [address] Chest pain, unspecified type Discharge Disposition: Home Social History Tobacco Use [...] on file documented as of this encounter Last Filed Vital Signs Vital Sign Reading Time Taken Comments Blood Pressure 134/80 12/08/2022 11:34 AM EDT Pulse 87 12/08/2022 11:34 AM EDT Temperature - - Respiratory Rate 16 12/08/2022 11:34 AM EDT Oxygen Saturation 96% 12/08/2022 11:34 AM EDT Inhaled Oxygen Concentration - - Weight 72.2 kg (159 lb 2.8 oz) 12/08/2022 11:34 AM EDT Height 167.6 cm (5' 5.98) 12/08/2022 11:34 AM E DT Body Mass Index 25.7 12/08/2022 11:34 AM EDT documented in this encounter Medications at Time of Discharge Medication Sig Dispensed Refills Start Date End Date azithromycin (Zithromax) 250 mg tablet Take by mouth daily. Day1:take 2 tablets daily, Day 2-5:Take one tablet daily nitroGLYcerin (Nitrostat) 0.4 mg Tablet, SublingualIndications :Coronary artery disease involving [place] heart without angina pectoris, unspecified vessel or [...] tablet Take 81 mg by mouth daily. clopidogrel (PLAVIX) 75 mg tablet Take 1 tablet by mouth daily. 90 tablet 3 09/13/2013 07/30/2023 hydrochlorothiazide (HYDRODIURIL) 25 mg tablet Take 25 mg by mouth every other day. 10/12/2023 documented as of this encounter Plan of Treatment Upcoming Encounters Date Type Department Care Team (Late st Contact Info) Description 01/10/2024 7:45 AM EDT Appointment Hematology [place] [address] 01/21/2024 10:[address] [place] [address] Heber Phillips MD [facility] [place]ATOLOGY/[place] [address] 03/28/2024 10:00 AM EDT Office Visit Hematology/Oncology at [address] [address] Heber Phillips MD [facility] HEMATOLOGY/[place] [address] Isabella Baker APRN [facility] [place] [address] documented as of this encounter Procedures Procedure Name Priority Date/Time Associated Diagnosis Comments NUCLEAR PHARMACOLOGIC STRESS CARDIOLOGY (PET CT MOBILE) Routine 12/08/2022 12:15 PM EDT Chest pain, unspecified type documented in this encounter Results * Nuclear Pharmacologic Stress Cardiology (PET CT Mobile) (12/08/2022 12:15 PM EDT) Anatomical Region Laterality Modality Other Faustina Miller MD [facility] ORD ERABLES documented in this encounter Visit Diagnoses Diagnosis Chest pain, unspecified type documented in this encounter Care Teams Lang Interpreter Relationship Specialty Start Date End Date Sayra Hawk APRN [address] [place] [address] PCP - General Family Medicine 11/03/22 documented as of this encounter
--- OUTSIDE RECORDS SUMMARY | 2024-01-05 02:41 | XMS_ITS | Encounter Summary ---
[place] [address] Care Team Providers Care Teletype Telegrapher Name Role Phone Sayra Hawk APRN Primary Care Provider Encounter Details Date Type Department Care Team (Late Contact Info) Description 10/15/2023 Telephone Hematology/Oncology at [address] [address] Ciara Hurtado Social History Tobacco Use Types Packs/Day Years [...] on file documented as of this encounter Miscellaneous Notes * Telephone Encounter - Ciara Hurtado - 10/15/2023 1:03 PM EDT Tried to call hieu to go over the ct questions. Could not leave a message. documented in this encounter Plan of Treatment Upcoming Encounters Date Type Department Care Team ([facility] Contact Info) Description 01/10/2024 7:45 AM EDT Appointment Hematology [place] [address] 01/21/2024 10:[address] [place] [place] [address] Heber Phillips MD [facility] DR HEMATOLOGY/[place] [address] 03/28/2024 10:00 AM EDT Office Visit Hematology/Oncology at [address] [address] Heber Phillips MD [facility] DR HEMATOLOGY/[place] [address] Isabella Baker APRN [facility] [place] [address] documented as of this encounter Visit Diagnoses Not on filedocumented in this encounter Care Teams Teletype Telegrapher Relationship Specialty Start Date End Date Sayra Hawk APRN [address] [place] [address] [address] [place] [address] PCP - General Family Medicine 11/03/22 documented as of this encounter
--- OUTSIDE RECORDS SUMMARY | 2024-01-05 02:41 | XMS_ITS | Encounter Summary ---
Author Organization [facility] Address [facility] [place] [address] Care Team Providers Care Disbursing Agent Name Role Phone Sayra Hawk APRN Primary Care Provider [phone] Reason for Visit * Diagnostic Test (Routine) - Closed Specialty Diagnoses / Procedures Referred By Keven lozano Referred To Contact Diagnoses Stenosis of right carotid artery Procedures Carotid Duplex, Bilateral Jimbo Walker APRN [facility] [place] [address] [facility] Vascular Lab [address] [place] [address] Referral ID Status Reason Start Date Expiration Date V isits Requested Visits Authorized [id number] Closed Specialty Service Requested 07/21/2023 07/20/2024 1 1 Encounter Details Date Type Department Care Team (Late st Contact Info) Description 09/15/2023 1:00 PM EDT Tech [place] [address] Harry Hernandez [place] Stenosis of right carotid artery; PVD (peripheral vascular disease) Social History Tobacco Use Types Packs/Day Years [...] on file documented as of this encounter Plan of Treatment Upcoming Encounters Date Type Department Care Team (Late st Contact Info) Description 01/10/2024 7:45 AM EDT Appointment Hematology [place] [address] 01/21/2024 10:[address] [place] [place] [address] Heber Phillips MD [facility] DR HEMATOLOGY/[place] [address] 03/28/2024 10:00 AM EDT Office Visit Hematology/Oncology at [address] [address] Heber Phillips MD [facility] DR HEMATOLOGY/[place] [address] Isabella Baker APRN [facility] [place] [address] documented as of this encounter Procedures Procedure Name Priority Date/Time Associated Diagnosis Comments NALDO, LEGS, MULTIPLE LEVELS Routine 09/15/2023 12:45 PM EDT PVD (peripheral vascular disease) CAROTID DUPLEX, BILATERAL Routine 09/15/2023 12:45 PM EDT Stenosis of right carotid artery documented in this encounter Results * NALDO, legs, multiple levels (09/15/2023 12:45 PM EDT) VB Text Report Department: Vascular Surgery Lab Patient: [id number] (BRITTA SAEED) CPT: 58236 Referring Physician: JIMBO WALKER ?? Phone: Indications: Hx of PVD, ? progression Diabetes mellitus: no Findings: Right ?Pressure (mm Hg) ?? NALDO ??Waveform ? Brachial Artery ?128 ? Dorsalis Pedis (Ankle) Artery ?92 ?0.72 ??Bi-Triphasic ?? Posterior Tibial (Ankle) Artery ??89 ?0.70 ??[place]-Biphasic ?? Left ? Pressure (mm Hg) ?? NALDO ??Waveform ? Brachial Artery ?121 ? Dorsalis Pedis (Ankle) Artery ?98 ?0.77 ??[place]-Biphasic ?? Posterior Tibial (Ankle) Artery ??93 ?0.73 ??Biphasic ? Interpretation: RIGHT: Mild lower extremity arterial occlusive disease. No significant change compared to previous exam. LEFT: Mild lower extremity arterial occlusive disease. No significant change compared to previous exam. Previous ABIs with change from previous value: Date ?RIGHT DP ?? RIGHT PT ?? RT GR TOE ??RT Sec TOE ??0.22 ? 0.21 ? ---- ? ---- ??0.63(+.41) 0.56(+.35) ---- ? ---- ??0.59(-.04) 0.60(+.04) ---- ? ---- ??0.64(+.05) 0.76(+.16) ---- ? ---- ??0.59(-.05) 0.70(-.06) ---- ? ---- ??0.63(+.04) 0.72(+.02) ---- ? ---- Current ? 0.72(+.09) 0.70(-.02) ---- ? ---- Date ?LEFT DP ?LEFT PT ?LT GR TOE LT Sec TOE ??0.67 ? 0.69 ? ---- ? ---- ??0.65(-.02) 0.63(-.06) ---- ? ---- ??0.61(-.04) 0.61(-.02) ---- ? ---- ??0.70(+.09) 0.75(+.14) ---- ? ---- ??0.72(+.02) 0.71(-.04) ---- ? ---- ??0.64(-.08) 0.73(+.02) ---- ? ---- Current ? 0.77(+.13) 0.73( .00) ---- ? ---- Electronically Signed by: AMI GIVENS on 2023-09-20 07:51:24 AM [facility] VB Text Report End of Report [facility] 09/15/2023 12:4 5 PM EDT Jimbo L Aaron DOPE WORKER VASCULAR ORDERABLES [facility] * Carotid Duplex, Bilateral (09/15/2023 12:45 PM EDT) VB Text Report Department: Vascular Surgery Lab Patient: [id number] (BRITTA SAEED) CPT: 23292 Referring Physician: JIMBO WALKER ?? Phone: Indications: Hx R CEA Findings: ICA Proximal, Right ? PSV (cm/s): 100 ? EDV (cm/s): 21 ? ICA/CCA: 0.9 ? Plaque Structure: Echogenic ? Plaque Surface: Smooth ? %Stenosis: <15% ICA Distal, Right ? PSV (cm/s): 122 ? EDV (cm/s): 41 ? ICA/CCA: 1.1 CCA Distal, Right ? PSV (cm/s): 111 ? EDV (cm/s): 23 CCA Middle, Right ? %Stenosis: Minimal CCA Proximal, Right ? PSV (cm/s): 148 ? EDV (cm/s): 19 External Carotid Artery, Right ? PSV (cm/s): 130 ? EDV (cm/s): 12 ? %Stenosis: <50% Vertebral, Right ? PSV (cm/s): 65 ? EDV (cm/s): 10 ? Direction of Flow: Antegrade ICA Proximal, Left ? PSV (cm/s): 123 ? EDV (cm/s): 27 ? ICA/CCA: 1.4 ? Plaque Structure: Echogenic ? Plaque Surface: Irregular ? %Stenosis: 16-49% ICA Distal, Left ? PSV (cm/s): 80 ? EDV (cm/s): 21 ? ICA/CCA: 0.9 CCA Distal, Left ? PSV (cm/s): 86 ? EDV (cm/s): 14 CCA Middle, Left ? %Stenosis: Minimal CCA Proximal, Left ? PSV (cm/s): 149 ? EDV (cm/s): 23 External Carotid Artery, Left ? PSV (cm/s): 112 ? EDV (cm/s): 10 ? %Stenosis: <50% Vertebral, Left ? PSV (cm/s): 65 ? EDV (cm/s): 14 ? Direction of Flow: Antegrade Interpretation: RIGHT: A thin layer of circumferential plaque is present in the common carotid artery causing minimal stenosis. There is minimal smooth plaque in the proximal internal carotid artery causing < 15% stenosis when compared to the more distal internal carotid artery. The bifurcation level is in the mid neck. No significant change compared to previous exam. LEFT: A thin layer of circumferential plaque is present in the common carotid artery causing minimal stenosis. There is bulky irregular plaque in the proximal internal carotid artery causing 16-49% stenosis when compared to the more distal internal carotid artery. The bifurcation level is in the mid neck. No significant change compared to previous exam. Vertebral Artery Data: Patent vertebral arteries with normal antegrade Doppler waveforms and velocities bilaterally. Previous Carotid Studies: Date ?RIGHT ICA Stenosis ??PSV ?? Ratio ?? LEFT ICA Stenosis ?? PSV ?? Ratio ? 50-69% ? 309 ?? 3.20 ? 16-49% ? 142 ?? 1.40 ? 50-79% ? 352 ?? 4.60 ? 16-49% ? 122 ?? 1.40 ? 50-79% ? 349 ?? 3.90 ? 16-49% ? 118 ?? 1.40 ? 50-79% ? 384 ?? 4.10 ? 16-49% ? 99 ?1.10 ? 50-79% ? 352 ?? 3.40 ? 16-49% ? 102 ?? 1.10 ? 60-99% ? 464 ?? 4.40 ? 16-49% ? 57 ?1.80 ? <15% ? 89 ?1.00 ? n/a ?n/a ?? n/a ? <15% ? 97 ?0.90 ? n/a ?n/a ?? n/a ? <15% ? 96 ?1.10 ? 16-49% ? 98 ?1.10 Current Exam ? <15% ? 100 ?? 1.10 ? 16-49% ? 123 ?? 1.40 Electronically Signed by: AMI GIVENS on 2023-09-15 01:55:29 PM [facility] VB Text Report End of Report [facility] 09/15/2023 12:4 5 PM EDT Jimbo Walker APRN VASCULAR ORDERABLES [facility] documented in this encounter Visit Diagnoses Diagnosis Stenosis of right carotid artery Occlusion and stenosis of carotid artery without mention of cerebral infarction PVD (peripheral vascular disease) Peripheral vascular disease, unspecified documented in this encounter Care Teams Disbursing Agent Relationship Specialty Start Date End Date Sayra Hawk APRN [address] [place] [address] PCP - General Family Medicine 11/03/22 documented as of this encounter
--- OUTSIDE RECORDS SUMMARY | 2024-01-05 02:41 | XMS_ITS | Encounter Summary ---
Author Organization [facility] Address [facility] [place] [address] Care Team Providers Care Care Transition Mgr Name Role Phone SusanSayra noel ADVISORY INTERN Primary Care Provider Encounter Details Date Type Department Care Team (Late Contact Info) Description 12/07/2023 Telephone Hematology/Oncology at [address] [phone] Ciara Hurtado Social History Tobacco [...] * Telephone Encounter - Ciara Hurtado - 12/07/2023 2:44 PM EDT I have called hieu tillman to go over the ct questions. I can not leave a message. I called the emergency contacts and was hung up on twice. documented in this encounter Plan of Treatment Upcoming Encounters Date Type Department Care Team (Late Contact Info) Description 01/10/2024 7:45 AM EDT Appointment Hematology [place] [address] 01/21/2024 10:[address] [place] [address] Heber Phillips MD [facility] HEMATOLOGY/[place] [address] 03/28/2024 10:00 AM EDT Office Visit Hematology/Oncology at [address] [address] Heber Phillips MD [facility] HEMATOLOGY/[place] [address] Isabella Baker APRN [facility] [place] [address] documented as of this encounter Visit Diagnoses Not on filedocumented in this encounter Care Teams Care Transition Mgr Relationship Specialty Start Date End Date Sayra Hawk APRN [address] [place] [address] PCP - General Family Medicine 11/03/22 documented as of this encounter
--- OUTSIDE RECORDS SUMMARY | 2024-01-05 02:41 | XMS_ITS | Encounter Summary ---
[place] [address] Care Team Providers Care Ups Driver Name Role Phone Susansadie Sayra LOW Primary Care Provider [phone]- [phone] Encounter Details Date Type Department Care Team (Latest Contact Info) Description 10/11/2023 11:55 AM EDT Laboratory Appointment Lab [address] [place] [address] Special screening for malignant neoplasm of prostate; Routine general medical examination at a health care facility; Iron deficiency anemia, unspecified iron deficiency anemia type; Small cell lung cancer, right upper lobe Social History Tobacco Use Types Packs/Day Years [...] AM EDT Appointment H[place] [address] 01/21/2024 10:[address] [place] [address] Heber Phillips MD [facility] DR HEMATOLOGY/[place] [address] 03/28/2024 10:00 AM EDT Office Visit Hematology/Oncology at [address] [address] Heber Phillips MD [facility] HEMATOLOGY/[place] [address] Isabella Baker APRN [facility] [place] [address] documented as of this encounter Procedures Procedure Name Priority Date/Time Associated Diagnosis Comments HC PROSTATE SPECIFIC AG SCREENING Routine 10/11/2023 11:19 AM EDT Special screening for malignant neoplasm of prostate HEMOGRAM Routine 10/11/2023 11:19 AM EDT Small cell lung cancer, right upper lobe DIFFERENTIAL, AUTOMATED Routine 10/11/2023 11:19 AM EDT Small cell lung cancer, right upper lobe HC HCV QUANTIFICATION Routine 10/11/2023 11:19 AM EDT Routine general medical examination at a health care facility HC CBC,PLT & AUTO DIFF Routine 11:19 AM EDT Small cell lung cancer, right upper lobe HC HEMOGLOBIN A1C Routine 10/11/2023 11: 19 AM EDT Routine general medical examination at a health care facility HC FERRITIN, SERUM Routine 10/11/2023 11 :19 AM EDT Iron deficiency anemia, unspecified iron deficiency anemia type LIPID PANEL (REFLEX DIRECT LDL) Routine 10/11/2023 11:19 AM EDT Routine general medical examination at a health care facility COMPREHENSIVE METABOLIC PANEL (NON-FASTING) Routine 10/11/2023 11:19 AM EDT Small cell lung cancer, right upper lobe documented in this encounter Results * (ABNORMAL) Differential, Automated (10/11/2023 11:19 AM EDT) Neutrophils % 79.8 % [facility] Neutr Abs (ANC) 6.30(H) 1.70 - 6.10 x10(3)/[facility] Lymphocytes % 6.7 % [facility] Lymphocytes Abs 0.5(L) 0.9 - 3.2 x10(3)/[facility] Monocytes % 9.2 % [facility] Monocyte Abs 0.7 0.3 - 0.9 x10(3)/[facility] Eosinophils % 2.5 % [facility] Eosinophils Abs 0.2 0.0 - 0.4 x10(3)/[facility] Basophils % 1.0 % [facility] Basophils Abs 0.1 0.0 - 0.1 x10(3)/[facility] Immature Gran % 0.80 % [facility] Comment: Immature granulocytes(IG's)percentage and absolute count will include metamyelocytes, myelocytes, and promyelocytes. Blood smears from CBCs yielding IG's will be scanned manually for concordance. If this scan disagrees with the automated IG or if promyelocytes are noted, a manual differential will be performed. Suri Gran Abs 0.06(H) 0.00 - 0.04 x10(3)/[facility] Blood 10/11/2023 11:1 9 AM EDT 10/11/2023 11:25 AM EDT Narrative Resulting Agency Comment Spec In Lab Heber Phillips MD HEMATOLOGY ORDERABLE S [facility] [place] [address] * (ABNORMAL) Hemogram (10/11/2023 11:19 AM EDT) WBC 7.9 4.0 - 9.5 x10(3)/[facility] LAB[facility] RBC 4.40(L) 4.58 - 5.54 x10(6)/[facility] Hemoglobin 10.9(L) 13.7 - 16.5 g/dL [facility] [place] Hematocrit 34.8(L) 40.5 - 48.5 % [facility] MCV 79.1(L) 82.9 - 93.1 fL [facility] MCH 24.8(L) 27.5 - 32.1 pg [facility] MCHC 31.3(L) 32.0 - 35.7 g/dL [facility] Platelets 402(H) 145 - 357 x10(3)/[facility] RDWSD 48.2(H) 36.0 - 45.0 [facility] RDWCV 16.8(H) 11.4 - 13.8 % [facility] MPV 9.5 7.6 - 12.9 [facility] nRBC % Auto 0.0 % [facility] nRBC Abs Auto 0.000 0.000 - 0.000 x10(3)/[facility] Blood 10/11/2023 11:1 9 AM EDT 10/11/2023 11:25 AM EDT Narrative Resulting Agency Comment Spec In Lab Heber Phillips MD HEMATOLOGY ORDERABLE S [facility] [place] [address] * (ABNORMAL) Comprehensive metabolic panel (non-fasting) (10/11/2023 11:19 AM EDT) Glucose Lvl 107 65 - 199 mg/dL [facility] Comment:Diabetes: >=200 mg/d L plus symptoms BUN 24(H) 10 - 20 mg/dL [facility] Creatinine 1.17 0.80 - 1.50 mg/dL [facility] Sodium 139 135 - 145 mmol/L [facility] Potassium 4.8 3.5 - 5.0 mmol/L [facility] Comment: Please note: ??Patients with WBC >100,000 may have falsely elevated Potassium levels. ??For accurate Potassium quantification in these patients send serum separator tube (gold top) for subsequent determinations. ??Contact the Clinical Chemistry Laboratory if there are any questions. Chloride 104 98 - 107 mmol/L [facility] CO2 28 22 - 31 mmol/L [facility] Anion Gap 7 5 - 15 mmol/L [facility] Calcium 9.5 8.5 - 10.5 mg/dL [facility] Total Protein 7.3 6.1 - 8.0 g/dL [facility] Albumin 4.3 3.2 - 5.2 g/dL [facility] AST 19 0 - 39 unit/L [facility] ALT 19 0 - 55 unit/L [facility] Alk Phos 92 40 - 130 unit/L [facility] Total Bilirubin 0.3 0.2 - 1.3 mg/dL [facility] Estimated GFR 67 >=60 mL/min/1. 73 m?? [facility] Comment: This patient's estimated GFR was calculated using the 2020 CKD-EPI equation. The estimated GFR can vary from the measured GFR by up to 30% in the absence of rapidly changing kidney function. Assessment of the estimated GFR is not appropriate when creatinine concentrations are rapidly changing. For clinical situations in which a more precise estimate of GFR is necessary, consider alternative methods of GFR estimation such as a 24-hour urine creatinine clearance. Assignment of CKD stage 1-5 for patients with an eGFR near the transition point between stages may be based on clinical assessment of muscle mass and symptoms in addition to eGFR. Blood 10/11/2023 11:1 9 AM EDT 10/11/2023 11:25 AM EDT Narrative Resulting Agency Comment Spec In Lab Heber Phillips MD CHEMISTRY ORDERABLES Performing Organization Address [facility]/ZIP Co de Phone Number [facility] [place] [address] * Ferritin (10/11/2023 11:19 AM EDT) Ferritin 31 31 - 409 ng/mL [facility] Comment: Please note that as of 05/26/2023, the reference intervals for Ferritin have been updated. Blood 10/11/2023 11:1 9 AM EDT 10/11/2023 11:25 AM EDT Narrative Resulting Agency Comment Spec In Lab Heber Phillips MD CHEMISTRY ORDERABLES Performing Organization Address [facility] Co de Phone Number [facility] [place] [address] * (ABNORMAL) Hemoglobin A1c (10/11/2023 11:19 AM EDT) Pathologist [facility] Hemoglobin A1C 6.0(H) 4.3 - 5.6 % [facility] Comment: Reference Range: 4.3 - 5.6% 5.7 - 6.4% - Increased Risk of Developing Diabetes Mellitus >= 6.5% - Consistent with diagnosis of Diabetes Mellitus In the absence of hyperglycemia (i.e. plasma glucose > 200 mg/dL) or classic symptoms of hyperglycemia a repeat measurement of HbA1c should be performed on a separate sample to confirm the diagnosis. Diagnosis and Classification of Diabetes Mellitus, Diabetes Care 2013; 36: Suppl. 1, S67-17 Est Avg Gluc 125 mg/dL [facility] Blood 10/11/2023 11:1 9 AM EDT 10/11/2023 11:25 AM EDT Narrative Resulting Agency Comment Spec In Lab Sayra Hawk APRN CHEMISTRY ORDERABLE S Performing Organization Address [facility] Co de Phone Number [facility] [place] [address] * Lipid Panel (Reflex Direct LDL) (10/11/2023 11:19 AM EDT) Chol, Total 97 mg/dL [facility] Comment: Desirable: ? <200 mg/dL Borderline High: 200-239 mg/dL Higher: ?>cw=743 mg/dL Triglycerides 75 mg/dL [facility] Comment: Normal: ?<150 mg/dL Borderline High: 150-199 mg/dL High: ?200-499 mg/dL Very High: ? >bp=627 mg/dL HDL 35 mg/dL [facility] Comment: Females: High Risk: <50 mg/dL Males: High Risk: <40 mg/dL LDL Cholesterol 47 mg/dL [facility] Comment: Desirable: ? <100 mg/dL Above Desirable: 100-129 mg/dL Borderline High: 130-159 mg/dL High: ?160-189 mg/dL Very High: ? >wd=111 mg/dL Lipid Interpretation See Note [facility] Comment: It is important to review the results of your lipid panel with your health care provider. You can compare your lipid results to the ranges below and whether they are in the desirable range. These ranges are only meant to be used for people without known cardiac disease, history of stroke, or peripheral vascular disease (blockages in the leg arteries or diabetes). If ??you have one of these conditions, your desirable LDL-C (bad cholesterol) will likely be even lower. ACC/AHA Guidelines (most recently Marilyn et al. [facility] 03/24/22): For individuals with atherosclerotic cardiovascular disease (ASCVD)or LDL >yo=830 mg/dL, use a high-intensity statin (40-80 mg atorvastatin or 20-40 mg rosuvastatin with goal >or=50% LDL reduction) For individuals with diabetes, age 40-75 without ASCVD, moderate-intensity statin (goal 30-49% LDL reduction); consider high intensity statin for those with increased risk. For adults without diabetes or ASCVD, aged 40-75 with LDL 70-189 mg/dL, estimate 10 year ASCVD risk with smartphrase .ASCVDRISK or Dynamed Decisions. If 10 year risk is 7.5%-19.9% (intermediate risk), consider moderate intensity statin based on risk enhancers and patient preference. Consider coronary artery calcium test (CT) if there is concern regarding the benefit of a statin. If ten year risk is >or=20%, initiate high-intensity statin. Evaluate for secondary causes of triglycerides >500 mg/dL or LDL >190 mg/dL. Lifestyle modification is a critical component of ASCVD risk reduction. If not reaching LDL goals on maximally tolerated statin, consider ezetimibe and/or a PCSK9 inhibitor: Target for primary prevention: LDL<100 Target for those with ASCVD or diabetes and 10-year risk >or=20%: LDL<70 Target for those with very high risk ASCVD: LDL<55 (Very high risk being the presence of 2 or more of: recent acute coronary syndrome, past myocardial infarction, ischemic stroke, symptomatic peripheral artery disease) Blood 10/11/2023 11:1 9 AM EDT 10/11/2023 11:25 AM EDT Narrative Resulting Agency Comment Spec In Lab Sayra Hawk [employer]ENT [employer] CHEMISTRY ORDERABLE S [facility] [place] [address] * Hepatitis C RNA, quantitative, PCR (10/11/2023 11:19 AM EDT) HCV Viral Load <12 IU/mL [facility] HCV Viral Load Result: <12 IU/mL (Target not detected) Indication for Study: Hepatitis C Infection Analysis: The Hammer Alinity m HCV assay is an in vitro reverse transcriptase polymerase chain reaction (RT-PCR)for the quantification of hepatitis C viral (HCV) RNA in human serum or plasma (EDTA) from HCV-infected individuals. Sample: plasma/serum Method: Hammer Alinity m HCV Assay Linear Range: 12 IU/mL - 100,000,000IU/mL Note: The Hammer Alinity HCV Assay has been approved by the U.S. Food and Drug Administration. [facility] Comment: [VERIFIED DATE]10.12.23 Verified By:Jackie Ashby (Electronic Signature) Blood 10/11/2023 11:1 9 AM EDT 10/11/2023 1:24 PM EDT Narrative Resulting Agency Comment Spec In Lab Sayra Adjovu [employer] IMMUNOLOGY ORDERABL ES Performing Organization Address [facility] Co de Phone Number [facility] [place] [address] * PSA Screen (10/11/2023 11:19 AM EDT) PSA Total 1.37 0.00 - 4.00 ng/mL [facility] Comment: PLEASE NOTE: The above reference interval is intended for healthy males with an intact prostate. Values within this reference interval may indicate recurrence in men who have undergone radical prostatectomy. This result was generated using a Herminio Kathrine immunoassay. ??Results obtained from other methods or manufacturers cannot be used interchangeably with this method. Blood 10/11/2023 11:1 9 AM EDT 10/11/2023 11:25 AM EDT Narrative Resulting Agency Comment Spec In Lab Sayra Hawk [employer] CHEMISTRY ORDERABLE S Performing Organization Address [facility] Co de Phone Number [facility] [place] [address] documented in this encounter Visit Diagnoses Diagnosis Special screening for malignant neoplasm of prostate Routine general medical examination at a health care facility Iron deficiency anemia, unspecified iron deficiency anemia type Small cell lung cancer, right upper lobe documented in this encounter Care Teams Ups Driver Relationship Specialty Start Date End Date Sayra Hawk APRN [address] [place] [address] PCP - General Family Medicine 11/03/22 documented as of this encounter
--- OUTSIDE RECORDS SUMMARY | 2024-01-05 02:41 | XMS_ITS | Encounter Summary ---
Author Organization [facility] Address [facility] [place] [address] Care Team Providers Care Casino Host Name Role Phone Sayra Hawk APRN Primary Care Provider Encounter Details Date Type Department Care Team (Late Contact Info) Description 10/12/2023 Telephone Hematology/Oncology at [address] [address] Ciara Hurtado Social History Tobacco [...] * Telephone Encounter - Ciara Hurtado - 10/12/2023 1:59 PM EDT Tried to call [facility] to go over the ct questions could not leave a message. Mail box is not set up. Will try again documented in this encounter Plan of Treatment Upcoming Encounters Date Type Department Care Team (Late Contact Info) Description 01/10/2024 7:45 AM EDT Appointment Hematology [place] [phone] 01/21/2024 10:[address] [place] [address] Heber Phillips MD [facility] DR HEMATOLOGY/[place] [address] 03/28/2024 10:00 AM EDT Office Visit Hematology/Oncology at [address] [address] Heber Phillips MD [facility] HEMATOLOGY/[place] [address] Isabella Baker APRN [facility] [place] [address] documented as of this encounter Visit Diagnoses Not on filedocumented in this encounter Care Teams Casino Host Relationship Specialty Start Date End Date Sayra Hawk APRN [address] [place] [address] [address] [place] [address] PCP - General Family Medicine 11/03/22 documented as of this encounter
--- OUTSIDE RECORDS SUMMARY | 2024-01-05 02:41 | XMS_ITS | Encounter Summary ---
Author Organization [facility] Address [facility] 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, unspecified vessel or [...] AM EDT Appointment Hematology and [place]cology [place] [address] 01/21/2024 10:[address] [place] [address] Heber Phillips MD [facility] HEMATOLOGY/[place] [address] 03/28/2024 10:00 AM EDT Office Visit Hematology/Oncology at [address] [phone] Heber Phillips MD [facility] HEMATOLOGY/[place] [address] Isabella Baker APRN [facility] [place] [address] documented as of this encounter Visit Diagnoses Not on filedocumented in this encounter Care Teams Poultry Picker Relationship Specialty Start Date End Date Sayra Hawk APRN [address] [place] [address] [address] [facility] [address] [place] [address] PCP - General Family Medicine 11/03/22 documented as of this encounter
--- OUTSIDE RECORDS SUMMARY | 2024-01-05 02:41 | XMS_ITS | Encounter Summary ---
Author Organization [facility] Address [facility] [place] [address] Care Team Providers Care Vice President Of Human Resources Name Role Phone SusanSayra noel DEVANTE Primary Care Provider [phone] Encounter Details Date Type Department Care Team (Latest Contact Info) Description 12/08/2022 Travel Social History Tobacco Use Types Packs/Day Years [...] AM EDT Appointment Hematology [place] [address] 01/21/2024 10:[address] [place] [address] Heber Phillips MD [facility] [address] [place] [address] 03/28/2024 10:00 AM EDT Office Visit Hematology/Oncology at [address] [phone] Heber Phillips MD [facility] HEMATOLOGY/[place] [address] Isabella Baker APRN [facility] [place] [address] documented as of this encounter Visit Diagnoses Not on filedocumented in this encounter Care Teams Vice President Of Human Resources Relationship Specialty Start Date End Date Sayra Hawk APRN [address] [place] [address] [address] [place] [address] PCP - General Family Medicine 11/03/22 documented as of this encounter
--- OUTSIDE RECORDS SUMMARY | 2024-01-05 02:41 | XMS_ITS | Encounter Summary ---
[place] [address] Care Team Providers Care Line Haul Truck Driver Name Role Phone Sayra Hawk APRN Primary Care Provider [phone] Reason for Referral * Diagnostic Test (Routine) - Closed Specialty Diagnoses / Procedures Referred By Contac t Referred To Contact Diagnoses PVD (peripheral vascular disease) Procedures NALDO, legs, multiple levels Jimbo Walker APRN [facility] [place] [address] [facility] [address] [place] [phone] Referral ID Status Reason Start Date Expiration Date V isits Requested Visits Authorized [id number] Closed Specialty Service Requested 07/21/2023 07/20/2024 1 1 * Diagnostic Test (Routine) - Closed Specialty Diagnoses / Procedures Referred By Contac t Referred To Contact Diagnoses Stenosis of right carotid artery Procedures Carotid Duplex, Bilateral Jimbo Walker APRN [facility] [place] [address] [facility] [address] [place] [phone] Referral ID Status Reason Start Date Expiration Date V isits Requested Visits Authorized [id number] Closed Specialty Service Requested 07/21/2023 07/20/2024 1 1 Encounter Details Date Type Department Care Team (Late st Contact Info) Description 07/21/2023 Orders [place] [address] Jimbo Walker APRN [facility] [place] [address] PVD (peripheral vascular disease); Stenosis of right carotid artery Social History Tobacco Use Types Packs/Day Years [...] AM EDT Appointment Hematology [place] [address] 01/21/2024 10:[address] [place] [address] Heber Phillips MD [facility] HEMATOLOGY/[place] [address] 03/28/2024 10:00 AM EDT Office Visit Hematology/Oncology at [address] [address] Heber Phillips MD [facility] HEMATOLOGY/[place] [address] Isabella Baker APRN [facility] [place] [address] documented as of this encounter Results * NALDO, legs, multiple levels (09/15/2023 12:45 PM EDT) VB Text Report Department: Vascular Surgery Lab Patient: [id number] (BRITTA SAEED) CPT: 82801 Referring Physician: JIMBO WALKER ?? Phone: Indications: Hx of PVD, ? progression Diabetes mellitus: no Findings: Right ?Pressure (mm Hg) ?? NALDO ??Waveform ? Brachial Artery ?128 ? Dorsalis Pedis (Ankle) Artery ?92 ?0.72 ??Bi-Triphasic ?? Posterior Tibial (Ankle) Artery ??89 ?0.70 ??[place]-Biphasic ?? Left ? Pressure (mm Hg) ?? NALDO ??Waveform ? Brachial Artery ?121 ? Dorsalis Pedis (Ankle) Artery ?98 ?0.77 ??[place]-Biphasic ?? Posterior Tibial (Ankle) Artery ??93 ?0.73 [...] EDT Jimbo Walker APRN VASCULAR ORDERABLES [facility] * Carotid Duplex, Bilateral (09/15/2023 12:45 PM EDT) VB Text Report Department: Vascular Surgery Lab Patient: [id number] (BRITTA SAEED) CPT: 53349 Referring Physician: JIMBO WALKER ?? Phone: Indications: [...] documented in this encounter Visit Diagnoses Diagnosis PVD (peripheral vascular disease) Peripheral vascular disease, unspecified Stenosis of right carotid artery Occlusion and stenosis of carotid artery without mention of cerebral infarction documented in this encounter Care Teams Line Haul Truck Driver Relationship Specialty Start Date End Date Sayra Hawk APRN [address] [place] [address] PCP - General Family Medicine 11/03/22 documented as of this encounter
--- OUTSIDE RECORDS SUMMARY | 2024-01-05 02:41 | XMS_ITS | Encounter Summary ---
Author Organization [facility] [address] Care Team Providers Care Cotton Acreage Measurer Name Role Phone Sayra Hawk APRN Primary Care Provider [phone] Reason for Visit * Reason Comments IV Medication Monoferric * Treatment/Therapy Plan Authorization (Routine) - Authorized Specialty Diagnoses / Procedures Referred By Contac t Referred To Contact Hematology and Oncology Diagnoses Iron deficiency anemia, unspecified iron deficiency anemia type Procedures [id number] MONOFERRIC Heber Phillips MD [address] [place] [id number] Heber Phillips MD [address] [place] [id number] Referral ID Status Reason Start Date Expiration Date V isits Requested Visits Authorized [id number] Authorized 10/13/2022 12/12/2023 99 99 Encounter Details Date Type Department Care Team (Late st Contact Info) Description 10/12/2023 10:30 AM EDT Infusion Hematology Oncology at [address] [phone] Iron deficiency anemia, unspecified iron deficiency anemia type Social History Tobacco Use Types Packs/Day Years [...] on file documented as of this encounter Progress Notes * Kiley Silva RN - 10/12/2023 10:30 AM EDT INFUSION THERAPY ADMINISTRATION NOTES DIAGNOSIS: Iron Deficiency Anemia REASON FOR VISIT: Monoferric SUBJECTIVE: Hieu Tillman offers no complaints. OBJECTIVE: VSS. Seen by provider. Ready to treat. LAB DATA: 10/11/23 - WBC - 7.9, H/H - 10.9/34.8, Plt Ct - 402, ANC - 6.30, Lytes wnl, BUN/Cr - 24/1.17, Ferritin - 31 Pre administration: Chemotherapy orders independently verified for drug name, route, and dosage per patient's height, weight and BSA by Kiley Silva RN and Staff Pharmacist(s). REACTIONS (DESCRIPTION, TIME, INTERVENTION AND EFFECTIVENESS) None ASSESSMENT Hieu Tillman was awake, alert and tolerated treatment well. Patient remained in clinic for 20 min post infusion to monitor for reactions. Port flushed with 20 cc's of NS and de-accessed. PLAN Return to clinic as scheduled.. documented in this encounter Plan of Treatment Upcoming Encounters Date Type Department Care Team (Late st Contact Info) Description 01/10/2024 7:45 AM EDT Appointment Hematology [place] [address] 01/21/2024 10:[address] [place] [address] Heber Phillips MD [facility] HEMATOLOGY/[place] [address] 03/28/2024 10:00 AM EDT Office Visit Hematology/Oncology at [address] [address] Heber Phillips MD [facility] HEMATOLOGY/[place] [address] Isabella Baker APRN [facility] [place] [address] documented as of this encounter Visit Diagnoses Diagnosis Iron deficiency anemia, unspecified iron deficiency anemia type documented in this encounter Administered Medications Inactive Administered Medications - up to 3 most recent administrations Medication Order MAR Action Action Date Dose Rate Site ferric derisomaltose (Monoferric) 1,000 mg in sodium chloride 0.9% 110 mL infusion 1,000 mg, Intravenous, ONCE, 1 dose, On Wed10/12/23 at 1200, Administer over 20 Minutes, Administer over at least 20 minutes. Monitor for 30 minutes after infusion for hypersensitivity reactions. Compatible only in sodium chloride 0.9%, This agent is restricted to oupatient use. Is this drug being given as an outpatient? Yes New Bag 10/12/2023 11:43 AM EDT 1,000 mg 330 mL/hr documented in this encounter Care Teams [place] A[place]age Measurer Relationship Specialty Start Date End Date Sayra Hawk APRN [address] [place] [address] [address] [place] [address] PCP - General Family Medicine 11/03/22 documented as of this encounter
--- OUTSIDE RECORDS SUMMARY | 2024-01-05 02:41 | XMS_ITS | Encounter Summary ---
Author Organization [facility] Address [facility] [place] [address] Care Team Providers Care Hearing Aid Repairer Name Role Phone SusanSayra noel DEVANTE Primary Care Provider [phone] Encounter Details Date Type Department Care Team (Latest Contact Info) Description 01/04/2024 Travel Social History Tobacco Use Types Packs/Day [...] AM EDT Appointment Hematology [place] [address] 01/21/2024 10:[address] [place] [address] Heber Phillips MD [facility] [address] [address] 03/28/2024 10:00 AM EDT Office Visit Hematology/Oncology at [address] [address] Heber Phillips MD [facility] HEMATOLOGY/[place] [address] Isabella Baker APRN [facility] [place] [address] documented as of this encounter Visit Diagnoses Not on filedocumented in this encounter Care Teams Hearing Aid Repairer Relationship Specialty Start Date End Date Sayra Hawk APRN [address] [place] [address] [address] [place] [address] PCP - General Family Medicine 11/03/22 documented as of this encounter
--- OUTSIDE RECORDS SUMMARY | 2024-01-05 02:41 | XMS_ITS | Encounter Summary ---
Author Organization [facility] [place] [address] Care Team Providers Care Title I Math Tutor Name Role Phone Susansadie Sayra DEVANTE Primary Care Provider [phone] Reason for Referral * Diagnostic Test (Routine) - Closed Specialty Diagnoses / Procedures Referred By Contac t Referred To Contact Radiology Diagnoses Small cell lung cancer, right upper lobe Procedures NM PET CT Skull Base to Mid-thigh Heber Phillips MD [facility] [address] HEMATOLOGY/[place] [address] [place] [address] Referral ID Status Reason Start Date Expiration Date V isits Requested Visits Authorized [id number] Closed Specialty Service Requested 10/13/2022 04/14/2024 1 1 Reason for Visit * Diagnostic Test (Routine) - Closed Specialty Diagnoses / Procedures Referred By Contac t Referred To Contact Radiology Diagnoses Small cell lung cancer, right upper lobe Procedures NM PET CT Skull Base to Mid-thigh Heber Phillips MD [facility] HEMATOLOGY/[place] [address] [facility] [place] [address] Referral ID Status Reason Start Date Expiration Date V isits Requested Visits Authorized [id number] Closed Specialty Service Requested 10/13/2022 04/14/2024 1 1 Encounter Details Date Type Department Care Team (Latest Contact Info) Description 10/11/2023 9:26 AM EDT - 10/11/2023 11:06 AM EDT Hospital Encounter Nuclear Medicine at [facility] [place] [address] Heber Phillips MD [facility] HEMATOLOGY/[place] [address] Small cell lung cancer, right upper lobe Discharge Disposition: Home Social History Tobacco Use [...] mg Tablet, SublingualIndications :Coronary artery disease involving [place] heart without angina pectoris, unspecified vessel or [...] AM EDT Appointment Hematology [place] [address] 01/21/2024 10:[address] [place] [address] Heber Phillips MD [facility] HEMATOLOGY/[place] [address] 03/28/2024 10:00 AM EDT Office Visit Hematology/Oncology at [address] [address] Heber Phillips MD [facility] HEMATOLOGY/[place] [address] Isabella Baker APRN [facility] [place] [address] documented as of this encounter Procedures Procedure Name Priority Date/Time Associated Diagnosis Comments NM PET CT SKULL BASE TO MID-THIGH ([facility]) Routine 10/11/2023 11:20 AM EDT Small cell lung cancer, right upper lobe documented in this encounter Results * NM PET CT Skull Base to Mid-thigh (10/11/2023 11:20 AM EDT) WORKSTATION ID [id number] RAD Anatomical Region Laterality Modality Positron Emissio n Tomography (PET) Impressions 10/12/2023 9:31 AM EDT 1. ??New FDG avid 11 mm irregular, nodule in the right upper lobe may represent an infectious/inflammatory process. Neoplasm cannot be excluded. Consider short interval follow-up with non-contrast CT chest in 3 months. Preliminary report signed by: Lokesh Salas at 10/12/2023 9:26 AM I have personally reviewed the image(s) and the resident's interpretation and agree with the findings, Vamsi Perez MD at 10/12/2023 9:31 AM Thank you for letting us participate in the care of this patient. ??If you are a health care provider and have any questions regarding this report, please contact the number below. ??For patients who have questions please contact the health director of healthcare systems that requested your imaging first. ? Narrative 10/12/2023 9:31 AM EDT EXAMINATION: NM PET CT STANDARD SKULL BASE TO MID-THIGH CLINICAL HISTORY: Small cell lung cancer, assess treatment response Restaging of small cell carcinoma of lung completed concurrent chemoradiation 2018 C34.11, Malignant neoplasm of upper lobe, right bronchus or lung TECHNIQUE: Following IV injection of 09-cvzwfs-4-deoxyglucose (FDG) a standard uptake of approximately 60 minutes, a noncontrast CT scan followed by a PET scan were acquired from the base of the skull to mid thighs. The noncontrast CT was used for anatomic localization and photon attenuation correction of the PET scan. Blood glucose level: 107 (mg/dL) FDG dose: 10.5 mCi COMPARISON: PET/CT 09/28/2022, 02/29/2020 FINDINGS: HEAD/NECK: Normal activity in all soft tissue regions of the neck and visualized lower head. No adenopathy. CHEST: Centrilobular emphysema. Unchanged pos-ttreatment changes in the right upper lobe with fibrosis, atelectasis and bronchiectasis. New 11 mm mildly FDG avid irregular nodule in the right upper lobe abutting the minor fissure (axial image 61). Stable size and appearance of subcentimeter non-FDG avid scattered nodules in the posterior medial right lower lobe (axial images 74-78) from 02/29/2020. Interval resolution of FDG activity in the left lower lobe. Stable FDG avid focus in the retrosternal region (axial image 43), is unchanged from the prior study and favored to represent a benign, reactive node. Right anterior chest wall port with catheter tip at the superior cavoatrial junction. Coronary and aortic calcifications. ABDOMEN/PELVIS: Normal activity in all soft tissue regions. No adenopathy. Normal appearance of the adrenal glands. Stable infrarenal, fusiform abdominal aortic aneurysm measures 3.6 cm in maximal AP dimension (axial image 150). Moderate to severe calcified atherosclerotic plaque within the aorta and its major branches. Right common iliac artery stent. Descending and sigmoid colonic diverticula. SKELETON/EXTREMITIES: Normal activity in all regions of the axial and visualized appendicular skeleton. No suspicious osseous lesion. Procedure Note Vamsi Perez MD - 10/12/2023 EXAMINATION: NM PET CT STANDARD SKULL BASE TO MID-THIGH CLINICAL HISTORY: Small cell lung cancer, assess treatment response Restaging of small cell carcinoma of lung completed concurrentchemoradiation 2018 C34.11, Malignant neoplasm of upper lobe, right bronchus or lung TECHNIQUE: Following IV injection of 83-rcrtsl-2-deoxyglucose (FDG) astandard uptake of approximately 60 minutes, a noncontrast CT scan followed by aPET scan were acquired from the base of the skull to mid thighs. The noncontrast CTwas used for anatomic localization and photon attenuation correction of thePET scan. Blood glucose level: 107 (mg/dL) FDG dose: 10.5 mCi COMPARISON: PET/CT 09/28/2022, 02/29/2020 FINDINGS: HEAD/NECK: Normal activity in all soft tissue regions of the neck and visualizedlower head. No adenopathy. CHEST: Centrilobular emphysema. Unchanged pos-ttreatment changes in the rightupper lobe with fibrosis, atelectasis and bronchiectasis. New 11 mm mildly FDG avid irregular nodule in the right upper lobeabutting the minor fissure (axial image 61). Stable size and appearance of subcentimeter non-FDG avid scattered nodulesin the posterior medial right lower lobe (axial images 74-78) from02/29/2020. Interval resolution of FDG activity in the left lower lobe. Stable FDG avid focus in the retrosternal region (axial image 43), isunchanged from the prior study and favored to represent a benign, reactive node. Right anterior chest wall port with catheter tip at the superiorcavoatrial junction. Coronary and aortic calcifications. ABDOMEN/PELVIS: Normal activity in all soft tissue regions. No adenopathy. Normal appearance of the adrenal glands. Stable infrarenal, fusiform abdominal aortic aneurysm measures 3.6 cm inmaximal AP dimension (axial image 150). Moderate to severe calcifiedatherosclerotic plaque within the aorta and its major branches. Right common iliac arterystent. Descending and sigmoid colonic diverticula. SKELETON/EXTREMITIES: Normal activity in all regions of the axial and visualized appendicular skeleton. No suspicious osseous lesion. IMPRESSION 1. New FDG avid 11 mm irregular, nodule in the right upper lobe mayrepresent an infectious/inflammatory process. Neoplasm cannot be excluded. Considershort interval follow-up with non-contrast CT chest in 3 months. Preliminary report signed by: Lokesh Salas at 10/12/2023 9:26 AM I have personally reviewed the image(s) and the resident's interpretationand agree with the findings, Vamsi Perez MD at 10/12/2023 9:31 AM Thank you for letting us participate in the care of this patient. If youare a health care provider and have any questions regarding this report,please contact the number below. For patients who have questions please contactthe health director of healthcare systems that requested your imaging first. Heber Phillips MD IMG PET ORDERABLES documented in this encounter Visit Diagnoses Diagnosis Small cell lung cancer, right upper lobe documented in this encounter Administered Medications Inactive Administered Medications - up to 3 most recent administrations Medication Order MAR Action Action Date Dose Rate Site fludeoxyglucose (F-18) FDG injection 0-20 mCi 0-20 mCi, Intravenous, ONCE PRN, 1 dose, Starting on Wed10/11/23 at 0952, Until Wed10/11/23 at 0946, Per Protocol, Radiology Contrast, Routine Given 10/11/2023 9:46 AM EDT 10.5 mCi documented in this encounter Care Teams Title I Math Tutor Relationship Specialty Start Date End Date Sayra Hawk APRN [address] [place] [address] [address] [place] [address] PCP - General Family Medicine 11/03/22 documented as of this encounter
--- OUTSIDE RECORDS SUMMARY | 2024-01-05 02:41 | XMS_ITS | Encounter Summary ---
Author Organization [facility] Address [facility] [place] [address] Care Team Providers Care Disk Grinder Name Role Phone SusanSayra noel DEVANTE Primary Care Provider Encounter Details Date Type Department Care Team (Latest Contact Info) Description 07/30/2023 Travel Social History Tobacco Use Types Packs/Day [...] AM EDT Appointment Hematology [place] [address] 01/21/2024 10:[address] [place] [place] [address] Heber Phillips MD [facility] [address] CAM[address] [address] 03/28/2024 10:00 AM EDT Office Visit Hematology/Oncology at [address] [phone] Heber Phillips MD [facility] HEMATOLOGY/[place] [address] Isabella Baker APRN [facility] [place] [address] documented as of this encounter Visit Diagnoses Not on filedocumented in this encounter Care Teams Disk Grinder Relationship Specialty Start Date End Date Sayra Hawk APRN [address] [place] [address] [address] [place] [address] PCP - General Family Medicine 11/03/22 documented as of this encounter
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
--- OUTSIDE RECORDS SUMMARY | 2024-01-05 02:41 | XMS_ITS | Encounter Summary ---
Author Organization [facility] Address [facility] [place] [address] Care Team Providers Care Ammonium Hydroxide Operator Name Role Phone Kenn Sayra LOW Primary Care Provider +1- [phone] Encounter Details Date Type Department Care Team (Latest Contact Info) Description 07/30/2023 11:20 AM EST Office Visit Cardiology at [address] [place] [phone] Bi Dia MD [facility] [place] [address] ASCVD (arteriosclerotic cardiovascular disease) Social History Tobacco Use Types Packs/Day [...] Sign Reading Time Taken Comments Blood Pressure 132/54 07/30/2023 11:15 AM EST Pulse 73 07/30/2023 11:15 AM EST Temperature - - Respiratory Rate - - Oxygen Saturation 96% 07/30/2023 11: 15 AM EST Inhaled Oxygen Concentration - - Weight 71.1 kg (156 lb 11.2 oz) 024 11:15 AM EST Height 170.2 cm (5' 7) 07/30/2023 11:1 5 AM EST Body Mass Index 24.54 07/30/2023 11:15 AM EST documented in this encounter Progress Notes * Bi Dia MD - 07/30/2023 11:20 AM EST Images from the original note were not included. Subjective: Patient ID: Hieu Tillman is a 68 y.o. male who presents on follow-up for: ASCVD HPI Last seen by Dr Miller 10/2022, at which time a cardiac PET was obtained to evaluate for obstructive disease as cause of dyspnea. Thus was performed 11/2022, which returned without ischemia/infarct, and normal LV systolic function. Since then, he remains rather limited in activity due to dyspnea from COPD. No angina. Current Outpatient Medications Medication Instructions acetaminophen (Tylenol) 325 mg Tablet Oral albuteroL (ACCUNEB) 1.25 mg/3 mL Solution for Nebulization 1 ampule, Nebulization, EVERY 6 HOURS PRN aspirin EC 81 mg, DAILY atorvastatin (LIPITOR) 80 mg, Oral, DAILY azithromycin (Zithromax) 250 mg tablet Oral, DAILY, Day1:take 2 tablets daily, Day 2-5:Take one tablet daily Combivent Respimat 20-100 mcg/actuation Mist INHALE 1 PUFF BY MOUTH FOUR TIMES A DAY NEEDED FOR COPD FIBER CHOICE ORAL 1 tablet, DAILY fluticasone furoate-vilanteroL (Breo Ellipta) 100-25 mcg/dose Disk with Device 1 puff, Inhalation, DAILY hydroCHLOROthiazide (HYDRODIURIL) 25 mg, Oral, EVERY OTHER DAY lisinopriL (ZESTRIL) 20 mg, Oral, DAILY magnesium chloride (MAG-DELAY ORAL) 1 tablet, Oral, EVERY OTHER DAY metoproloL tartrate (LOPRESSOR) 25 mg, Oral, 2 TIMES DAILY nitroGLYcerin (NITROSTAT) 0.4 mg, Sublingual, EVERY 5 MIN PRN pantoprazole EC (PROTONIX) 40 mg, Oral, DAILY Spiriva with HandiHaler 18 mcg, Inhalation, DAILY, 2 puffs QD Patient Active Problem List Diagnosis ASCVD (arteriosclerotic cardiovascular disease) CARDIAC CATHETERIZATION - Procedure: Coronary Angiography 09/11/13 LM: normal LAD: mild diffuse disease, mid 50% stenosis LCx: mild diffuse disease, prox 60% involving the bifurcation, 85% mid stenosis which received a stent OM1: 60% ostial, moderate sized vessel involving the bifurcation RCA: normal Patient enrolled in ABSORB trial Cardiac Cath 10/10/13: one vessel disease of the LCX. 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 Gen: pleasant male in NAD Cor: rrr, s1/s2 of nl character and amplitude, no pathologic m/r/g. Estimated RAP not elevated. Carotids with normal upstroke without bruit. Pulm: CTAB. Normal diaphragmatic movement without use of accessory muscles Assessment and Plan: ASCVD (arteriosclerotic cardiovascular disease) No angina per history, albeit at limited activity level. Reassuring cardiac PET - Anti-Thrombosis: asa 81 - Anti- Lipemic: lipitor 80 - Anti- Anginals: GTN PRN, lopressor 25 bid RTC 12 months Bi Dia MD documented in this encounter Miscellaneous Notes * Assessment & Plan Note - Bi Dia MD - 09/09/2023 1:44 PM EDT Associated Problem(s): ASCVD (arteriosclerotic cardiovascular disease) No angina per history, albeit at limited activity level. Reassuring cardiac PET was reviewed - Anti-Thrombosis: asa 81 - Anti- Lipemic: lipitor 80 - Anti- Anginals: GTN PRN, lopressor 25 bid documented in this encounter Plan of Treatment Upcoming Encounters Date Type Department Care Team (Late st Contact Info) Description 01/10/2024 7:45 AM EDT Appointment Hematology [place] [address] 01/21/2024 10:[address] [place] [address] Heber Phillips MD [facility] DR HEMATOLOGY/[place] [address] 03/28/2024 10:00 AM EDT Office Visit Hematology/Oncology at [address] [address] Heber Phillips MD [facility] DR HEMATOLOGY/[place] [address] Isabella Baker APRN [facility] [place] [address] documented as of this encounter Visit Diagnoses Diagnosis ASCVD (arteriosclerotic cardiovascular disease) Unspecified cardiovascular disease documented in this encounter Care Teams Ammonium Hydroxide Operator Relationship Specialty Start Date End Date Sayra Hawk APRN [address] [place] [address] PCP - General Family Medicine 11/03/22 documented as of this encounter
--- OUTSIDE RECORDS SUMMARY | 2024-01-05 02:41 | XMS_ITS | Encounter Summary ---
Author Organization [facility] Address [facility] [place] [address] Care Team Providers Care Printer Slotter Helper Name Role Phone Sayra Hawk APRN Primary Care Provider Encounter Details Date Type Department Care Team (Late st Contact Info) Description 07/20/2023 Transcribe [place] [phone] Sayra Hawk APRN [address] [address] Routine general medical examination at a health care facility; Special screening for malignant neoplasm of prostate Social History Tobacco Use Types Packs/Day Years [...] AM EDT Appointment Hematology [place] [phone] 01/21/2024 10:[address] [place] [address] Heber Phillips MD [facility] HEMATOLOGY/[place] [address] 03/28/2024 10:00 AM EDT Office Visit Hematology/Oncology at [address] [address] Heber Phillips MD [facility] HEMATOLOGY/[place] [address] Isabella Baker APRN [facility] [place] [address] documented as of this encounter Results * PSA Screen (10/11/2023 11:19 AM EDT) Pathologist [facility] PSA Total 1.37 0.00 - 4.00 ng/mL [...] Agency Comment Spec In Lab Sayra Adjovu SONAR WATCHSTANDER CHEMISTRY ORDERABLE S [facility] [place] [address] * Hepatitis C RNA, quantitative, PCR (10/11/2023 11:19 AM EDT) HCV Viral Load <12 IU/mL [facility] HCV Viral Load Result: <12 IU/mL (Target not detected) Indication for Study: Hepatitis C Infection Analysis: The Mohoundnity m HCV assay is an in vitro [...] Agency Comment Spec In Lab Sayra Adjovu SONAR WATCHSTANDER IMMUNOLOGY ORDERABL ES [facility] [place] [address] * Lipid Panel (Reflex Direct LDL) (10/11/2023 11:19 AM EDT) Chol, Total 97 mg/dL [facility] Comment: Desirable: ? <200 mg/dL Borderline High: 200-239 mg/dL Higher: ?>rz=940 mg/dL Triglycerides 75 mg/dL [facility] Comment: Normal: ?<150 mg/dL Borderline High: 150-199 mg/dL High: ?200-499 mg/dL Very High: ? >hz=906 mg/dL HDL 35 mg/dL [facility] Comment: Females: High Risk: <50 mg/dL Males: High Risk: <40 mg/dL LDL Cholesterol 47 mg/dL [facility] Comment: Desirable: ? <100 mg/dL Above Desirable: 100-129 mg/dL Borderline High: 130-159 mg/dL High: ?160-189 mg/dL Very High: ? >pu=773 mg/dL Lipid Interpretation See Note [facility] [...] ACC/AHA Guidelines (most recently Marilyn et al. [facility] 03/24/22): For individuals with atherosclerotic cardiovascular disease (ASCVD)or LDL >cf=034 mg/dL, use a high-intensity statin (40-80 mg [...] Lab Sayra Hawk APRN CHEMISTRY ORDERABLE S [facility] [place] [address] * (ABNORMAL) Hemoglobin A1c (10/11/2023 11:19 AM EDT) Hemoglobin A1C 6.0(H) 4.3 - 5.6 % [...] Mellitus, Diabetes Care 2013; 36: Suppl. 1, S67-74 Est Avg Gluc 125 mg/dL [facility] Blood 10/11/2023 11:1 9 AM EDT 10/11/2023 11:25 AM EDT Narrative Resulting Agency Comment Spec In Lab Sayra Hawk SONAR WATCHSTANDER CHEMISTRY ORDERABLE S Performing Organization Address City/[facility] [address]/ZIP Co de Phone Number [facility] [place] [address] documented in this encounter Visit Diagnoses Diagnosis Routine general medical examination at a health care facility Special screening for malignant neoplasm of prostate documented in this encounter Care Teams Printer Slotter Helper Relationship Specialty Start Date End Date Sayra Hawk APRN [address] [place] [address] [address] [facility] [address] [place] [address] PCP - General Family Medicine 11/03/22 documented as of this encounter
--- OUTSIDE RECORDS SUMMARY | 2024-01-05 02:41 | XMS_ITS | Encounter Summary ---
Author Organization [facility] Address [facility] [place] [address] Care Team Providers Care Firer Boiler Name Role Phone SusanSayra noel DEVANTE Primary Care Provider [phone]- [phone] Encounter Details Date Type Department Care Team (Latest Contact Info) Description 09/15/2023 Travel Social History Tobacco Use Types Packs/Day [...] AM EDT Appointment Hematology [place] [address] 01/21/2024 10:[address] [place] [address] Heber Phillips MD [facility] [address] [place] [address] 03/28/2024 10:00 AM EDT Office Visit Hematology/Oncology at [address] [address] Heber Phillips MD [facility] HEMATOLOGY/[place] [address] Isabella Baker APRN [facility] [place] [address] documented as of this encounter Visit Diagnoses Not on filedocumented in this encounter Care Teams Firer Boiler Relationship Specialty Start Date End Date Sayra Hawk APRN [address] [place] [address] [address] [place] [address] PCP - General Family Medicine 11/03/22 documented as of this encounter
--- OUTSIDE RECORDS SUMMARY | 2024-01-05 02:41 | XMS_ITS | Encounter Summary ---
[place] [address] Care Team Providers Care Ehs Manager Name Role Phone Kenn Sayra LOW Primary Care Provider +1- [phone] Encounter Details Date Type Department Care Team (Late st Contact Info) Description 11/19/2023 Telephone Cardiology at [address] [address] Rosa Mancera, RN Social History Tobacco Use Types Packs/Day Years [...] encounter Miscellaneous Notes * Telephone Encounter - Rosa Mancera RN - 11/19/2023 10:59 AM EDT Fax received from [employer] requesting a prescription for a portable oxygen concentrator from Dr. Dia. TC to patient to inquire on fax. Patient states it is a portable concentrator that he is attempting to purchase directly. Recommended he discuss with his collator hand and request Rx from them. Patient verbalized understanding. Rosa Mancera mortician supplies sales representative [facility] [address] documented in this encounter Plan of Treatment Upcoming Encounters Date Type Department Care Team (Late st Contact Info) Description 01/10/2024 7:45 AM EDT Appointment Hematology [place] [address] 01/21/2024 10:[address] [place] [address] Heber Phillips MD [facility] DR HEMATOLOGY/[place] [address] 03/28/2024 10:00 AM EDT Office Visit Hematology/Oncology at [address] [phone] Heber Phillips MD [facility] DR HEMATOLOGY/[place] [address] Isabella Baker APRN [facility] [place] [place] [address] documented as of this encounter Visit Diagnoses Not on filedocumented in this encounter Care Teams Ehs Manager Relationship Specialty Start Date End Date Sayra Hawk APRN [address] [place] [address] PCP - General Family Medicine 11/03/22 documented as of this encounter
--- OUTSIDE RECORDS SUMMARY | 2024-01-05 02:41 | XMS_ITS | Encounter Summary ---
Author Organization [facility] [place] [address] Care Team Providers Care Tooling Mechanic Name Role Phone Sayra Hawk APRN Primary Care Provider [phone]- [phone] Reason for Referral * Diagnostic Test (Routine) - Authorized Specialty Diagnoses / Procedures Referred By Contac t Referred To Contact Diagnoses Stenosis of right carotid artery Procedures Carotid Duplex, Bilateral Gerald Dunham MD [facility] [place] [address] [facility] [address] [place] [phone] Referral ID Status Reason Start Date Expiration Date Visits Requested Visits Authorized [id number] Authorized Specialty Service Requested 09/15/2023 09/14/2024 1 1 * Diagnostic Test (Routine) - Authorized Specialty Diagnoses / Procedures Referred By Contac t Referred To Contact Diagnoses PVD (peripheral vascular disease) Procedures NALDO, legs, multiple levels Gerald Dunham MD [facility] [place] [address] [facility] Lab [address] [place] [phone] Referral ID Status Reason Start Date Expiration Date Visits Requested Visits Authorized [id number] Authorized Specialty Service Requested 09/15/2023 09/14/2024 1 1 Reason for Visit * Consultation (Routine) - Closed Specialty Diagnoses / Procedures Referred By Contac t Referred To Contact Vascular Surgery Diagnoses Peripheral vascular disease ROUTINE, /CARLOS, NALDO, B CAR Sayra Alejandro, OR MANAGER [address] [place] [address] [facility] Vascular Surg [address] [place] [address] Referral ID Status Reason Start Date Expiration Date V isits Requested Visits Authorized [id number] Closed Consult, Test & Treat 07/20/2023 07/19/2024 1 1 Encounter Details Date Type Department Care Team (Late st Contact Info) Description 09/15/2023 2:30 PM EDT Office Visit [place] [address] Gerald Dunham MD [facility] [place] [address] Stenosis of right carotid artery (Primary Dx); PVD (peripheral vascular disease) Social History Tobacco [...] Sign Reading Time Taken Comments Blood Pressure 127/56 09/15/2023 1:50 PM EDT Pulse 71 09/15/2023 1:50 PM EDT Temperature - - Respiratory Rate - - Oxygen Saturation - - Inhaled Oxygen Concentration - - Weight 70.3 kg (155 lb) 09/15/2023 1:50 PM EDT Height 167.6 cm (5' 6) 09/15/2023 1:50 PM EDT Body Mass Index 25.02 09/15/2023 1:50 PM EDT documented in this encounter Progress Notes * Gerald Dunham MD - 09/15/2023 2:30 PM EDT Images from the original note were not included. OUTPATIENT VASCULAR SURGERY CONSULTATION Reason for Visit: 12/07/11 R JAYA stent (MICHELLE) 10/20/16 R CEA Sx ICA (BZ) History of Present Illness: Hieu Tillman is a 68 y.o. male patient is following up and has not been seen by vascular here for a number of years. Interval significant history of lung cancer status postradiation therapy and chemo. Patient also has COPD. But overall has no complaints today. Denies any claudication or any signs of CLT I. Denies any signs or symptoms of stroke or TIA. 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 He remains on his aspirin andhis Lipitor without complaints. Atherosclerotic Risk Factors: (n) DM (Y) HTN (n) CAD (n) CHF (Y) Hyperlipidemia (Y) CVA reports that he quit smoking about 10 years ago. His smoking use included cigarettes. He has a 94.00 pack-year smoking history. He has never used smokeless tobacco. Patient Active Problem List Diagnosis Code Low back pain radiating to right leg M54.50, M79.604 Stenosis of right carotid artery I65.21 PVD (peripheral vascular disease) I73.9 Hypertension I10 Hyperlipidemia E78.5 Chronic obstructive pulmonary disease J44.9 ASCVD (arteriosclerotic cardiovascular disease) I25.10 Central artery occlusion of retina H34.10 Mass of upper lobe of right lung R91.8 Small cell lung cancer, right upper lobe C34.11 Dehydration E86.0 Diverticulosis of colon without diverticulitis K57.30 History of alcoholism F10.21 History of left cataract extraction Z98.42 Polyp of colon K63.5 Anemia, iron deficiency D50.9 Exertional dyspnea R06.09 Current Outpatient Medications: azithromycin (Zithromax) 250 mg tablet, Take by mouth daily. Day1:take 2 tablets daily, Day 2-5:Take one tablet daily, Disp: , Rfl: nitroGLYcerin (Nitrostat) 0.4 mg Tablet, Sublingual, Place 1 tablet under the tongue every 5 minutes as needed for Chest pain (maximum 3 per day)., Disp: 25 tablet, Rfl: 12 albuteroL (ACCUNEB) 1.25 mg/3 mL Solution for Nebulization, Take 1 ampule by nebulization every 6 hours as needed for Wheezing., Disp: , Rfl: acetaminophen (Tylenol) 325 mg Tablet, Take by mouth., Disp: , Rfl: Combivent Respimat 20-100 mcg/actuation Mist, INHALE 1 PUFF BY MOUTH FOUR TIMES A DAY NEEDED FORCOPD, Disp: , Rfl: pantoprazole (PROTONIX) 40 mg Tablet, Delayed Release (E.C.), Take 40 mg by mouth daily., Disp: , Rfl: magnesium chloride (MAG-DELAY ORAL), Take 1 tablet by mouth every other day., Disp: , Rfl: tiotropium (Spiriva with HandiHaler) 18 mcg Capsule, w/Inhalation Device, Inhale 18 mcg into the lungs daily. 2 puffs QD, Disp: , Rfl: lisinopril (PRINIVIL;ZESTRIL) 20 mg Tablet, Take 1 tablet by mouth daily., Disp: 90 tablet, Rfl: 3 meTOPROLOL tartrate (LOPRESSOR) 25 mg Tablet, Take 1 tablet by mouth 2 times daily. (Patient takingdifferently: Take 50 mg by mouth daily.), Disp: 180 tablet, Rfl: 3 fluticasone furoate-vilanteroL (Breo Ellipta) 100-25 mcg/dose Disk with Device, Inhale 1 puff into the lungs daily., Disp: , Rfl: atorvastatin (LIPITOR) 80 mg tablet, Take 1 tablet by mouth daily., Disp: 30 tablet, Rfl: 2 hydrochlorothiazide (HYDRODIURIL) 25 mg tablet, Take 25 mg by mouth every other day., Disp: , Rfl: FIBER CHOICE ORAL, Take 1 tablet by mouth daily., Disp: , Rfl: aspirin 81 mg EC tablet, Take 81 mg by mouth daily., Disp: , Rfl: Allergies Allergen Reactions Contrast [Iodine And Iodide Containing Products] Anaphylaxis and Hives He has tolerated IV dye since with premedication. History of anaphylaxis as well. Review of Systems: Constitutional (weight change, fever) - Denies Neuro (dizziness, seizures, numbness, tingling) - Denies Eyes (vision) - Denies Ears, nose, throat (hearing) - Denies Cardiovascular (CP) - Denies Respiratory (SOB) - Denies GI (abd pain, nausea, emesis, blood in stool) - Denies (hematuria, dysuria, frequency) - Denies Muscoloskeletal (extremity pain, weakness) - Denies Skin (ulcers, rashes) - Denies Functional Status/Social Hx: Lives at home, Retired Family Hx: Negative for Thrombosis, Bleeding Disorders Physical Exam: There were no vitals taken for this visit. General - NAD, appears stated age Neuro - Alert and Oriented, Motor Sensory grossly intact, R eye blindness, otherwise CN 2-12 grossly intact Skin - No prominent markings or lesions Ear, Nose, Throat - No masses, No lesions Cardiac - RRR, no murmurs Lungs - Clear Abd - Soft, NT, ND, No palpable pulsatile masses Musculoskeletal- full ROM upper and lower extremities Psych- alert oriented X3 Extremities - Warm, pink, no edema, brisk capillary refill Labs: No results found for this or any previous visit (from the past 72 hour(s)). Studies: Interpretation: RIGHT: A thin layer of circumferential plaque is present in the common carotid artery causing minimal stenosis. There is minimal smooth plaque in the proximal internal carotid artery causing < 15%stenosis when compared to the more distal internal [...] neck. No significant change compared to previous exam No data to display Assessment and Plan: 68 y.o. male s/p R CEA and R JAYA stent. Patient has no recurrent signs of any carotid disease at this time. He is able to ambulate without any signs or symptoms of claudication or CLT I. He should remain on his aspirin and his Lipitor we will see him back in 2 years with ABIs and a carotid duplex. documented in this encounter Plan of Treatment Upcoming Encounters Date Type Department Care Team (Late st Contact Info) Description 01/10/2024 7:45 AM EDT Appointment Hematology [place] [address] 01/21/2024 10:[address] [place] [address] Heber Phillips MD [facility] HEMATOLOGY/[place] [address] 03/28/2024 10:00 AM EDT Office Visit Hematology/Oncology at [address] [phone] Heber Phillips MD [facility] HEMATOLOGY/[place] [address] Isabella Baker APRN [facility] [place] [address] documented as of this encounter Visit Diagnoses Diagnosis Stenosis of right carotid artery- Primary Occlusion and stenosis of carotid artery without mention of cerebral infarction PVD (peripheral vascular disease) Peripheral vascular disease, unspecified documented in this encounter Care Teams Tooling Mechanic Relationship Specialty Start Date End Date Sayra Hawk APRN [address] [place] [address] [address] [place], [place] [id number] PCP - General Family Medicine 11/03/22 documented as of this encounter
--- OUTSIDE RECORDS SUMMARY | 2024-01-05 02:41 | XMS_ITS | Encounter Summary ---
Author Organization [facility] Address [facility] [place] [address] Care Team Providers Care Digital Strategy Director Name Role Phone SusanSayra noel DEVANTE Primary Care Provider [phone]- [phone] Encounter Details Date Type Department Care Team (Latest Contact Info) Description 10/11/2023 Travel Social History Tobacco Use Types Packs/Day [...] AM EDT Appointment Hematology [place] [address] 01/21/2024 10:[address] [place] [address] Heber Phillips MD [facility] [address] [place] [address] 03/28/2024 10:00 AM EDT Office Visit Hematology/Oncology at [address] [address] Heber Phillips MD [facility] HEMATOLOGY/[place] [address] Isabella Baker APRN [facility] [place] [address] documented as of this encounter Visit Diagnoses Not on filedocumented in this encounter Care Teams Digital Strategy Director Relationship Specialty Start Date End Date Sayra Hawk APRN [address] [place] [address] [address] [place] [address] PCP - General Family Medicine 11/03/22 documented as of this encounter
--- OUTSIDE RECORDS SUMMARY | 2024-01-05 02:41 | XMS_ITS | Clinical Summary ---
Author Organization [facility] Address [facility] [place] [address] Care Team Providers Care Supervisor [employer] Name Role Phone KennCindySayradakota LOW Primary Care Provider [phone] Allergies Active Allergy Reactions Criticality Noted Date Comments Iodine And Iodide Containing Products Anaphylaxis,Hives High 10/02/2011 He has tolerated IV dye since with premedication. History of anaphylaxis as well. Medications Medication Sig Dispensed Refills Start Date End Date Status aspirin 81 mg EC tablet Take 81 mg by mouth daily. Active FIBER CHOICE ORAL Take 1 tablet by mouth daily. Active atorvastatin (LIPITOR) 80 mg tablet Take 1 tablet by mouth daily. 30 tablet 2 09/13/2013 Active fluticasone furoate-vilanteroL (Breo Ellipta) 100-25 mcg/dose Disk with Device Inhale 1 puff into the lungs daily. Active lisinopril (PRINIVIL;ZESTRIL) 20 mg Tablet Take 1 tablet by mouth daily. 90 tablet 3 10/22/2016 Active meTOPROLOL tartrate (LOPRESSOR) 25 mg Tablet Take 1 tablet by mouth 2 times daily. 180 tablet 3 10/22/2016 Active Additional Information Patient taking differently: 50 mgOralDAILY, Reported on 10/13/2022 tiotropium (Spiriva with HandiHaler) 18 mcg Capsule, w/Inhalation Device Inhale 18 mcg into the lungs daily. 2 puffs QD Active magnesium chloride (MAG-DELAY ORAL) Take 1 tablet by mouth every other day. Active pantoprazole (PROTONIX) 40 mg Tablet, Delayed Release (E.C.) Take 40 mg by mouth daily. Active Combivent Respimat 20-100 mcg/actuation Mist INHALE 1 PUFF BY MOUTH FOUR TIMES A DAY NEEDED FOR COPD 04/09/2020 Active acetaminophen (Tylenol) 325 mg Tablet Take by mouth. 11/03/2017 Active albuteroL (ACCUNEB) 1.25 mg/3 mL Solution for Nebulization Take 1 ampule by nebulization every 6 hours as needed for Wheezing. Active nitroGLYcerin (Nitrostat) 0.4 mg Tablet, SublingualIndicatio ns:Coronary artery disease involving [place] sal[place] heart without angina pectoris, unspecified vessel or lesion type Place 1 tablet under the tongue every 5 minutes as needed for Chest pain (maximum 3 per day). 25 tablet 12 04/30/2021 Active Additional Information Patient not taking.Reported on 10/12/2023 azithromycin (Zithromax) 250 mg tablet Take by mouth daily. Day1:take 2 tablets daily, Day 2-5:Take one tablet daily Active Breztri Aerosphere 160-9-4.8 mcg/actuation inhaler (HFA) Inhale 2 puffs into the lungs 2 times daily. 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 Reassuring cardiac PET was reviewed - Anti-Thrombosis: asa 81 - Anti- Lipemic: lipitor 80 - Anti- Anginals: GTN PRN, lopressor 25 bid Assessment & Plan (11/03/2022 4:00 PM EDT): PCI in 2013 Worsening ESCAMILLA and chest pressure. This could be multifactorial involving pulmonary and cardiac etiologies. Recommend cardiac PET to assess coronary ischemia, as this is important to facilitate further decision making in lung CA treatment. Hypertension 09/11/2013 Hyperlipidemia 09/11/2013 Chronic obstructive pulmonary disease 09/11/2013 Stenosis of right carotid artery 10/28/2011 Overview (10/21/2016): 10/20/2016: Right carotid endarterectomy PVD (peripheral vascular disease) 10/28/2011 Overview (01/18/2013): R JAYA stent 12/07/11 Assessment & Plan (11/03/2022 5:18 PM EDT): Vasculopathic involving JAYA, Carotid Stopped smoking several years ago Denies claudication, however, he is limited by ESCAMILLA Will continue DaPT and statin Low back pain radiating to right leg Resolved Problems Problem Noted Date Diagnosed Date Resolved Date Tobacco abuse 10/09/2013 10/07/2015 Overview (10/09/2013): Quit 09/11/13, had been smoking 10 cigarettes prior to starting the patch, has been smoke free since using the patch 10/09/13 Has been wearing patches 2 days, doing well smoke free Chest pain 09/11/2013 09/09/2023 Encounters Date Type Department Care Team Description 01/04/2024 2:00 PM EDT Office Visit Hematology/Oncolog y at [address] [address] Isabella Baker APRN Iron deficiency anemia, unspecified iron deficiency anemia type; Small cell lung cancer, right upper lobe 01/04/2024 Travel 01/04/2024 Telephone Hematology/Oncolog y at [address] [address] Aleida Knight, BOB Follow-up 01/03/2024 Telephone Hematology/Oncolog y at [address] [address] Ciara Hurtado 12/07/2023 Telephone Hematology/Oncolog y at [address] [address] Ciara Hurtado 11/19/2023 Telephone Cardiology at [address] [address] Rosa Mancera RN 10/15/2023 Telephone Hematology/Oncolog y at [address] [address] Ciara Hurtado 10/12/2023 10:30 AM EDT Infusion Hematology Oncology at [address] [address] Iron deficiency anemia, unspecified iron deficiency anemia type 10/12/2023 10:00 AM EDT Office Visit Hematology/Oncolog y at [address] [address] Heber Phillips MD Burns, Kimberly A, APRN Small cell lung cancer, right upper lobe (Primary Dx); Lung nodule seen on imaging study 10/12/2023 Telephone Hematology/Oncolog y at [address] [address] Ciara Hurtado 10/11/2023 11:55 AM EDT Laboratory Appointment Lab [address] [place] [address] Special screening for malignant neoplasm of prostate; Routine general medical examination at a health care facility; Iron deficiency anemia, unspecified iron deficiency anemia type; Small cell lung cancer, right upper lobe 10/11/2023 11:07 AM EDT - 10/11/2023 11:59 PM EDT Hospital Encounter [place]ematology [place] [address] Discharge Disposition: Home 10/11/2023 9:26 AM EDT - 10/11/2023 11:06 AM EDT Hospital Encounter [place] [address] Heber Phillips MD Discharge Disposition: Home 10/11/2023 9:26 AM EDT - 10/11/2023 11:06 AM EDT Hospital Encounter [place] [address] Heber Phillips MD Small cell lung cancer, right upper lobe Discharge Disposition: Home 10/11/2023 Travel from Last 3 Months Immunizations Name Administration Dates Next Due Influenza Quadrivalent, Pres ervative Free 03/25/2020,03/21/2019,04/05/2018,04/23,04/22/2016,05/09/2015,06/11/2014 ,05/21/2014,05/10/2013,03/21/2013,09/2011,03/21/2010,04/05/2007 Pneumococcal Polysaccharide (Pneumovax 23) 06/21/1995 Td Adult, Absorbed, Preservative Free 03/16/2008 Tdap 03/16/2008 Family History Medical History Relation Comments Cerebrovascular Accident Father Hyperlipidemia Father Hypertension Father Emphysema Mother Cancer Neg Hx Diabetes Neg Hx Glaucoma Neg Hx Macular Degeneration Neg Hx Relation Status Comments Father (Age 61) Mother (Age 49) Sister 1 Alive Sister 2 Alive Sister 3 Alive Social History Tobacco Use Types Packs/Day Years Used Date Smoking Tobacco: Former Cigarettes 2 47 0 09/11/1966 - 09/11/2013 Smokeless Tobacco: Never Tobacco Cessation:Counseling Given: Yes Alcohol Use Standard Drinks/Week Comments Yes 2 (1 standard drink = 0.6 oz pure alcohol) Sober 25 years the summer Sex and Gender Information Value Date Recorded Sex Assigned at Not on file Gender Identity Not on file Sexual Orientation Not on file Last Filed Vital Signs Vital Sign Reading [...] Mass Index 25.51 01/04/2024 2:13 PM EDT Plan of Treatment Upcoming Encounters Date Type Department Care Team (Late st Contact Info) Description 01/10/2024 7:45 AM EDT Appointment [place]ematology [place] [address] 01/21/2024 10:[address] [place] [place] [address] Heber Phillips MD [facility] HEMATOLOGY/[place] [address] 03/28/2024 10:00 AM EDT Office Visit Hematology/Oncology at [address] [address] Heber Phillips MD [facility] HEMATOLOGY/[place] [address] Isabella Baker APRN [facility] [place] [address] Health Maintenance Due Date Last Done Comments CT Colonography 1955 FIT DNA 1955 FIT 1955 Sigmoidoscopy 1955 Pneumoccocal Vaccine: 65+ (2 of 2 - PCV) 06/21/1996 06/21/1995 Zoster vaccine (1 of 2) 2004 Tetanus vaccine 03/16/2018 03/16/2008, 03/16/2008 AAA Screen 09/07/2019 Covid-19 Vaccine (2 - 2022-2 4 season) 2023 04/09/2022 Influenza (Flu) vaccine (1 o f 1 - Influenza standard series) 02/20/2024 03/25/2020, 03/21/2019, 04/05/2018, Additional history exists Diabetes Screening (HgbA1C o r Glucose) 10/10/2026 10/11/2023, 10/11/2023, 01/12/2022, Additional history exists Colonoscopy 02/21/2031 02/21/2021, 02/21/2021 Colorectal Cancer Screening 02/21/2031 Sigmoidoscopy (10 year) with FIT yearly 02/21/2031 02/21/2021, 02/21/2021 Tdap adult Completed 03/16/2008 Hepatitis C Screening Completed 10/11/2023 Medical Devices Implanted Type Area [employer] Person[employer] Specialist Device Identifier Shelf Expiration Date Model / Serial / Lot Patch,Biol,Xe nosure,.8x8cm ([id number]) - [id number] Implanted:Qty : 1 on 10/20/2016 by Omero Wills MD at [facility] IMPLANTS Right: Carotid [employer] - [id number] 04/17/2022 [id number] / / [id number] Port,Ct,Low Profile,Vacce ss ([id number])-01/26 Implanted:Qty : 1 on 01/26/2018 by Gerald Rivera APRN IMPLANTS Right: Chest Wall [employer] - CR BARD [id number] / / [id number] Description:6fr low profile vaccess port Procedures Procedure Name Priority Date/Time Associated Diagnosis Comments NM PET CT SKULL BASE TO MID-THIGH ([facility]) Routine 10/11/2023 11:20 AM EDT Small cell lung cancer, right upper lobe DIFFERENTIAL, AUTOMATED Routine 10/11/2023 11:19 AM EDT Small cell lung cancer, right upper lobe HEMOGRAM Routine 10/11/2023 11:19 AM EDT Small cell lung cancer, right upper lobe HC CBC,PLT & AUTO DIFF Routine 11:19 AM EDT Small cell lung cancer, right upper lobe COMPREHENSIVE METABOLIC PANEL (NON-FASTING) Routine 10/11/2023 11:19 AM EDT Small cell lung cancer, right upper lobe HC FERRITIN, SERUM Routine 10/11/2023 11 :19 AM EDT Iron deficiency anemia, unspecified iron deficiency anemia type HC HEMOGLOBIN A1C Routine 10/11/2023 11: 19 AM EDT Routine general medical examination at a [facility] care facility LIPID PANEL (REFLEX DIRECT LDL) Routine 10/11/2023 11:19 AM EDT Routine general medical examination at a [facility] care facility HC HCV QUANTIFICATION Routine 10/11/2023 11:19 AM EDT Routine general medical examination at a [facility] care facility HC PROSTATE SPECIFIC AG SCREENING Routine 10/11/2023 11:19 AM EDT Special screening for malignant neoplasm of prostate POCT GLUCOSE Routine 10/11/2023 9:40 AM EDT COLONOSCOPY Routine 02/21/2021 1:08 PM EDT from Last 3 Months or Most Recently Relevant to Health Maintenance Results * NM PET CT Skull Base to Mid-thigh (10/11/2023 11:20 AM EDT) WORKSTATION ID [id number] RAD Anatomical Region Laterality Modality Positron Emissio [...] have questions please contact the health director career that requested your imaging first. ? Electronically signed by: Vamsi Perez MD, [facility] ([phone]), at 10/12/2023 9:31 AM Narrative 10/12/2023 9:31 AM EDT EXAMINATION: NM PET CT STANDARD SKULL BASE TO MID-THIGH CLINICAL HISTORY: Small cell lung cancer, assess treatment response Restaging of small cell carcinoma of lung completed concurrent chemoradiation 2018 C34.11, Malignant neoplasm of upper lobe, right bronchus or lung TECHNIQUE: Following IV injection of 82-phejwh-9-deoxyglucose (FDG) a standard uptake of approximately 60 [...] or lung TECHNIQUE: Following IV injection of 26-iapfqj-3-deoxyglucose (FDG) astandard uptake of approximately 60 minutes, [...] who have questions please contactthe health director career that requested your imaging first. Heber Phillips MD IMG PET ORDERABLES * PSA Screen (10/11/2023 11:19 AM EDT) PSA Total 1.37 0.00 - 4.00 ng/mL [facility] Comment: PLEASE NOTE: The [...] Agency Comment Spec In Lab Sayra Adjovu SOLAR PANEL INSTALLER CHEMISTRY ORDERABLE S [facility] [place] [address] * (ABNORMAL) Hemogram (10/11/2023 11:19 AM EDT) WBC 7.9 4.0 - 9.5 x10(3)/[facility] RBC 4.40(L) 4.58 - 5.54 x10(6)/[facility] Hemoglobin 10.9(L) 13.7 - 16.5 g/dL [facility] Hematocrit 34.8(L) 40.5 - 48.5 % [facility] MCV 79.1(L) 82.9 - 93.1 [facility] MCH 24.8(L) 27.5 - 32.1 pg [facility] MCHC 31.3(L) 32.0 - 35.7 g/dL [facility] Platelets 402(H) 145 - 357 x10(3)/[facility] RDWSD 48.2(H) 36.0 - 45.0 [facility] RDWCV 16.8(H) 11.4 - 13.8 % [facility] MPV 9.5 7.6 - 12.9 [facility] nRBC % Auto 0.0 % [facility] nRBC Abs Auto 0.000 0.000 - 0.000 x10(3)/[facility] Blood 10/11/2023 11:1 9 AM EDT 10/11/2023 11:25 AM EDT Narrative Resulting Agency Comment Spec In Lab Heber Phillips MD HEMATOLOGY ORDERABLE S [facility] [place] [address] * (ABNORMAL) Differential, Automated (10/11/2023 11:19 AM EDT) Neutrophils % 79.8 % [facility] Neutr Abs (ANC) 6.30(H) 1.70 - 6.10 x10(3)/mc L [facility] Lymphocytes % 6.7 % [facility] Lymphocytes Abs 0.5(L) 0.9 - 3.2 x10(3)/[facility] Monocytes % 9.2 % [facility] Monocyte Abs 0.7 0.3 - 0.9 x10(3)/ L [facility] Eosinophils % 2.5 % [facility] Eosinophils Abs 0.2 0.0 - 0.4 x10(3)/[facility] Basophils % 1.0 % [facility] Basophils Abs 0.1 0.0 - 0.1 x10(3)/[facility] Immature Gran % 0.80 % [facility] Comment: Immature granulocytes(IG's)percentage and absolute count will include metamyelocytes, myelocytes, and promyelocytes. Blood smears from CBCs yielding IG's will be scanned manually for concordance. If this scan disagrees with the automated IG or if promyelocytes are noted, a manual differential will be performed. Suri Gran Abs 0.06(H) 0.00 - 0.04 x10(3)/mc L [facility] Blood 10/11/2023 11:1 9 AM EDT 10/11/2023 11:25 AM EDT Narrative Resulting Agency Comment Spec In Lab Heber Phillips MD HEMATOLOGY ORDERABLE S Performing Organization Address [facility] Co de Phone Number [facility] [place] [address] * Hepatitis C RNA, quantitative, PCR (10/11/2023 11:19 AM EDT) HCV Viral Load <12 IU/mL [facility] HCV Viral Load Result: [...] by the U.S. Food and Drug Administration. [facility] Comment: [VERIFIED DATE]10.12.23 Verified By:Jackie Ashby (Electronic Signature) Blood 10/11/2023 11:1 9 AM EDT 10/11/2023 1:24 PM EDT Narrative Resulting Agency Comment Spec In Lab Sayra Adjovu SOLAR PANEL INSTALLER IMMUNOLOGY ORDERABL ES Performing Organization Address [facility] Co de Phone Number [facility] [place] [address] * (ABNORMAL) Hemoglobin A1c (10/11/2023 11:19 AM EDT) Hemoglobin A1C 6.0(H) 4.3 - 5.6 % [facility] Comment: Reference Range: 4.3 [...] Mellitus, Diabetes Care 2013; 36: Suppl. 1, Z17-82 Est Avg Gluc 125 mg/dL [facility] Blood 10/11/2023 11:1 9 AM EDT 10/11/2023 11:25 AM EDT Narrative Resulting Agency Comment Spec In Lab Sayra Davisoanhramon DEVANTE CHEMISTRY ORDERABLE S Performing Organization Address [facility] Co de Phone Number [facility] [place] [address] * Ferritin (10/11/2023 11:19 AM EDT) Ferritin 31 31 - 409 ng/mL [facility] Comment: Please note that as of 05/26/2023, the reference intervals for Ferritin have been updated. Blood 10/11/2023 11:1 9 AM EDT 10/11/2023 11:25 AM EDT Narrative Resulting Agency Comment Spec In Lab Heber Phillips MD CHEMISTRY ORDERABLES Performing Organization Address [facility] de Phone Number [facility] [place] [address] * Lipid Panel (Reflex Direct LDL) (10/11/2023 11:19 AM EDT) Chol, Total 97 mg/dL [facility] Comment: Desirable: ? <200 mg/dL Borderline High: 200-239 mg/dL Higher: ?>ja=181 mg/dL Triglycerides 75 mg/dL [facility] Comment: Normal: ?<150 mg/dL Borderline High: 150-199 mg/dL High: ?200-499 mg/dL Very High: ? >fk=594 mg/dL HDL 35 mg/dL [facility] Comment: Females: High Risk: <50 mg/dL Males: High Risk: <40 mg/dL LDL Cholesterol 47 mg/dL [facility] Comment: Desirable: ? <100 mg/dL Above Desirable: 100-129 mg/dL Borderline High: 130-159 mg/dL High: ?160-189 mg/dL Very High: ? >xl=416 mg/dL Lipid Interpretation See Note [facility] Comment: It is important [...] ACC/AHA Guidelines (most recently Marilyn et al. [facility] 03/24/22): For individuals with atherosclerotic cardiovascular disease (ASCVD)or LDL >te=230 mg/dL, use a high-intensity statin (40-80 mg [...] Narrative Resulting Agency Comment Spec In Lab Sayradakota Davisoanhramon SOLAR PANEL INSTALLER CHEMISTRY ORDERABLE S [facility] [place] [address] * (ABNORMAL) Comprehensive metabolic panel (non-fasting) (10/11/2023 11:19 AM EDT) Glucose Lvl 107 65 - 199 mg/dL [facility] Comment:Diabetes: >=200 mg/d L plus symptoms BUN 24(H) 10 - 20 mg/dL [facility] Creatinine 1.17 0.80 - 1.50 mg/dL [facility] Sodium 139 135 - 145 mmol/L [facility] Potassium 4.8 3.5 - 5.0 mmol/L [facility] Comment: Please note: ??Patients with WBC >100,000 may have falsely elevated Potassium levels. ??For accurate Potassium quantification in these patients send serum separator tube (gold top) for subsequent determinations. ??Contact the Clinical Chemistry Laboratory if there are any questions. Chloride 104 98 - 107 mmol/L [facility] CO2 28 22 - 31 mmol/L [facility] Anion Gap 7 5 - 15 mmol/L [facility] Calcium 9.5 8.5 - 10.5 mg/dL [facility] Total Protein 7.3 6.1 - 8.0 g/dL [facility] Albumin 4.3 3.2 - 5.2 g/dL [facility] AST 19 0 - 39 unit/L [facility] ALT 19 0 - 55 unit/L [facility] Alk Phos 92 40 - 130 unit/L [facility] Total Bilirubin 0.3 0.2 - 1.3 mg/dL [facility] Estimated GFR 67 >=60 mL/min/1. 73 m?? [facility] Comment: This patient's estimated [...] Phillips MD CHEMISTRY ORDERABLES Performing Organization Address City/[facility]/ZIP Co de Phone Number [facility] [place] [address] * POCT Glucose (10/11/2023 9:40 AM EDT) POC Glucose 107 65 - 199 mg/dL [facility] Comment: Supplemental ranges: <140 mg/dL before meals <180 mg/dL all other times of the day Blood 10/11/2023 9:40 AM EDT 10/11/2023 9:40 AM EDT Heber Phillips MD POINT OF CARE TEST O RDERABLES Performing Organization Address City/[facility]/ZIP Co de Phone Number [facility] [place] [address] * COLONOSCOPY (02/21/2021 1:08 PM EDT) COLONOSCOPY [facility] Endoscopy Procedure Date: 02/21/2021 1:08 PM ? Patient Name: Hieu Tillman ? Date of : 1955 ? Age: 65 ? Order #: [id number] ? Instrument Name: [id number] ? Procedure: ? Colonoscopy Indications: ? High risk colon cancer surveillance: ? Personal history of colonic polyps, ? Incidental - Abnormal PET scan of the ? GI tract Providers: ? Anshu Ewing MD, Florentin Meng. ? BOB Arrieta, Amie Max, ? Brush Holder Assembler Referring MD: ?Nataliya Messina MD Medicines: ? Monitored Anesthesia Care Complications: ? No immediate complications. Procedure: ? Pre-Anesthesia Assessment: ? - Prior to the procedure, a History ? and Physical was performed, and ? patient medications and allergies ? were reviewed. The patient is ? competent. The risks and benefits of ? the procedure and the sedation ? options and risks were discussed with ? the patient. All questions were ? answered and informed consent was ? obtained. Patient identification and ? proposed procedure were verified by ? the physician in the pre-procedure ? area. Mental Status Examination: ? alert and oriented. Airway ? Examination: normal oropharyngeal ? airway and neck mobility. Respiratory ? Examination: clear to auscultation. ? CV Examination: normal. Prophylactic ? Antibiotics: The patient does not ? require prophylactic antibiotics. ? Prior Anticoagulants: The patient has ? taken no previous anticoagulant or ? antiplatelet agents. ASA Grade ? Assessment: II - A patient with mild ? systemic disease. After reviewing the ? risks and benefits, the patient was ? deemed in satisfactory condition to ? undergo the procedure. The anesthesia ? plan was to use monitored anesthesia ? care (MAC). Immediately prior to ? administration of medications, the ? patient was re-assessed for adequacy ? to receive sedatives. The heart rate, ? respiratory rate, oxygen saturations, ? blood pressure, adequacy of pulmonary ? ventilation, and response to care ? were monitored throughout the ? procedure. The physical status of the ? patient was re-assessed after the ? procedure. ? The procedure, indications, benefits, ? risks and alternatives were explained ? to the patient. Specifically ? discussed were potential ? complications including, but not ? limited to, bleeding, perforation, ? infection, missing a cancer, and ? adverse medication reactions. The ? patient was placed in the left ? lateral decubitus position, and a ? digital rectal exam was performed. ? The Colonoscope was inserted in the ? anus and under direct visualization, ? advanced to the terminal ileum. ? Careful inspection was made as the ? colonoscope was withdrawn. The ? colonoscopy was performed without ? difficulty. The patient tolerated the ? procedure well. The quality of the ? bowel preparation was good. ? Findings: ? The perianal and digital rectal examinations were ? normal. ? Non-bleeding internal hemorrhoids were found during ? retroflexion. The hemorrhoids were Grade II (internal ? hemorrhoids that prolapse but reduce spontaneously). ? Multiple small and large-mouthed diverticula were ? found in the sigmoid colon and descending colon. ? A 4 mm polyp was found in the descending colon. The ? polyp was sessile. The polyp was removed with a cold ? snare. Resection and retrieval were complete. ? The terminal ileum appeared normal. ? Moderate Sedation: ? Not applicable - See Anesthesia documentation Impression: ?- Non-bleeding internal hemorrhoids. ? - Diverticulosis in the sigmoid colon ? and in the descending colon. ? - One 4 mm polyp in the descending ? colon, removed with a cold snare. ? Resected and retrieved. Recommendation: ?- Reassurance - no evidence of cecal ? mass ? Procedure Code(s): ?? --- Professional --- ? 62681, Colonoscopy, flexible; with ? removal of tumor(s), polyp(s), or ? other lesion(s) by snare technique CPT copyright 2019 [employer]. All rights reserved. The codes documented in this report are preliminary and upon form stripper review may be revised to meet current compliance requirements. Attending Participation: ? I personally performed the entire procedure. ? ___ Anshu Ewing MD 02/21/2021 2:08:20 PM This report has been signed electronically. Number of Addenda: 0 Note Initiated On: 02/21/2021 1:08 PM PROVATION 02/21/2021 1:08 PM EDT Nataliya Messina MD GENERAL SURGICAL OR DERABLES PROVATION from Last 3 Months or Most Recently Relevant to Health Maintenance Advance Directives Documents on File Type Date Recorded Patient Corrections Corporal Expl anation Advance Directives and Living Will 03/31/2018 11:47 AM AD 03/31/2018 * Full Code (Latest Code Status on File) Date Activated Date Inactivated Comments 01/26/2018 7:23 AM 01/27/2018 4:38 AM Question Answer Comments Does patient have capacity to make decision: Yes * Full Code Date Activated Date Inactivated Comments 01/05/2018 8:47 AM 01/05/2018 1:45 PM Question Answer Comments Does patient have capacity to make decision: Yes * Full Code Date Activated Date Inactivated Comments 10/19/2016 3:34 PM 10/22/2016 2:36 PM Question Answer Comments Does patient have capacity to make decision: Yes * Full Code Date Activated Date Inactivated Comments 10/09/2013 4:25 PM 10/11/2013 2:33 PM Question Answer Comments Order Status: Initial Order Does patient have decision m aking capacity? Yes, Order is based on Patients wishes. * Full Code Date Activated Date Inactivated Comments 09/11/2013 4:21 PM 09/13/2013 2:28 PM Question Answer Comments Order Status: Initial Order Does patient have decision m aking capacity? Yes, Order is based on Patients wishes. Care Teams Supervisor Bottle Machines Relationship Specialty Start Date End Date Sayra Hawk APRN [address] [place] [address] PCP - General Family Medicine 11/03/22
--- OUTSIDE RECORDS SUMMARY | 2024-01-05 02:41 | XMS_ITS | Encounter Summary ---
[place] [address] Care Team Providers Care It Auditor Name Role Phone Susansadie Sayra DEVANTE Primary Care Provider [phone] Reason for Visit * Reason Onset Date Comments Follow-up 01/04/2024 Encounter Details Date Type Department Care Team (Late Contact Info) Description 01/04/2024 Telephone Hematology/Oncology at [address] [address] Aleida Knight RN Follow-up Social History Tobacco Use Types Packs/Day Years [...] encounter Miscellaneous Notes * Telephone Encounter - Aleida Knight RN - 01/04/2024 8:31 AM EDT Spoke with Sancho pt's sone and asked him to give us a call as pt has not had his ct scan yet. Sancho said he would let Hieu know. documented in this encounter Plan of Treatment Upcoming Encounters Date Type Department Care Team (Late Contact Info) Description 01/10/2024 7:45 AM EDT Appointment Hematology [place] [address] 01/21/2024 10:[address] [place] [address] Heber Phillips MD [facility] DR HEMATOLOGY/[place] [address] 03/28/2024 10:00 AM EDT Office Visit Hematology/Oncology at [address] [address] Heber Phillips MD [facility] HEMATOLOGY/[place] [address] Isabella Baker APRN [facility] [place] [place] [address] documented as of this encounter Visit Diagnoses Not on filedocumented in this encounter Care Teams It Auditor Relationship Specialty Start Date End Date Sayra Hawk APRN [address] [place] [address] [address] [place] [address] PCP - General Family Medicine 11/03/22 documented as of this encounter
--- OUTSIDE RECORDS SUMMARY | 2024-01-05 02:41 | XMS_ITS ---
Author Organization [place] [address] Care Team Providers Care Incinerator Plant Laborer Name Role Phone Sayra Hawk APRN Primary Care Provider Active Problems Problem Noted Date Diagnosed Date [...] Low back pain radiating to right leg Current Oncology Plans No current plan information found. Other Current Plans FERRIC DERISOMALTOSE (MONOFERRIC) INFUSION ([facility], [facility], [facility], [facility], [facility], [facility]) IRON DEFICIENCY ANEMIA* Plan Start Date:10/13/2022 Plan Provider:Heber Phillips MD Linked Problems Iron deficiency anemia, unsp ecified iron deficiency anemia type Treatment Medications No medications scheduled. Past Plans ADULT TREATMENT Plan Name Start Date Discontinue Date Treatment Medications Discontinue Reason Plan Provider Cycles DH BCN AMB ONC SMALL CELL LUNG CANCER - CARBOplatin / ETOPOSIDE 8 08/18/2018 CARBOplatin (Paraplatin) in 150 mL infusionetoposide (Vepesid) in 500 mL infusion Therapy Complete Heber Phillips MD 4 of 4 cycles started Radiation Treatments * No radiation treatments are documented for this patient in [facility]. Treatments may have been administered in another system. Resolved Problems Problem Noted Date Diagnosed Date Resolved Date Tobacco abuse 10/09/2013 10/07/2015 Overview (10/09/2013): Quit 09/11/13, had been smoking 10 cigarettes prior to starting the patch, has been smoke free since using the patch 10/09/13 Has been wearing patches 2 days, doing well smoke free Chest pain 09/11/2013 09/09/2023
--- OUTSIDE RECORDS SUMMARY | 2024-01-05 02:41 | XMS_ITS | Encounter Summary ---
Author Organization [facility] Address [facility] [place] [address] Care Team Providers Care Stitcher Operator Name Role Phone SusanSayra neol DEVANTE Primary Care Provider [phone] Encounter Details Date Type Department Care Team (Late Contact Info) Description 01/03/2024 Telephone Hematology/Oncology at [address] [address] Ciara Hurtado Social History Tobacco [...] AM EDT Appointment Hematology [place] [address] 01/21/2024 10:[address] [place] [address] Heber Phillips MD [facility] [place]ATOLOGY/[place] [address] 03/28/2024 10:00 AM EDT Office Visit Hematology/Oncology at [address] [address] Heber Phillips MD [facility] DR HEMATOLOGY/[place] [address] Isabella Baker APRN [facility] [place] [address] documented as of this encounter Visit Diagnoses Not on filedocumented in this encounter Care Teams Stitcher Operator Relationship Specialty Start Date End Date Sayra Hawk APRN [address] [place] [address] [address] [place], [place] [address] PCP - General Family Medicine 11/03/22 documented as of this encounter
--- OUTSIDE RECORDS SUMMARY | 2024-01-05 02:41 | XMS_ITS | Encounter Summary ---
[place] [address] Care Team Providers Care Laboratory Asst Name Role Phone Kenn Sayra LOW Primary Care Provider [phone] Encounter Details Date Type Department Care Team (Late st Contact Info) Description 07/20/2023 Telephone [place] [phone] Ann Henson Social History Tobacco Use Types Packs/Day Years [...] encounter Miscellaneous Notes * Telephone Encounter - Ann Henson - 07/20/2023 11:38 AM EST [facility] for referral services @ [facility] requested that they stop sending the referral for this patient as we have received it 16 times. The referral has been entered and we are waiting for it to be triaged. AO-07/20/23 documented in this encounter Plan of Treatment Upcoming Encounters Date Type Department Care Team (Late st Contact Info) Description 01/10/2024 7:45 AM EDT Appointment [place] [address] 01/21/2024 10:[address] [place] [place] [address] Heber Phillips MD [facility] DR HEMATOLOGY/[place] [address] 03/28/2024 10:00 AM EDT Office Visit Hematology/Oncology at [address] [address] Heber Phillips MD [facility] HEMATOLOGY/[place] [address] Isabella Baker APRN [facility] [place] [address] documented as of this encounter Visit Diagnoses Not on filedocumented in this encounter Care Teams Laboratory Asst Relationship Specialty Start Date End Date Sayra Hawk APRN [address] [place] [address] PCP - General Family Medicine 11/03/22 documented as of this encounter
--- OUTSIDE RECORDS SUMMARY | 2024-01-05 02:41 | XMS_ITS | Encounter Summary ---
[place] [address] Care Team Providers Care Spare Fixer Name Role Phone Sayra Hawk APRN Primary Care Provider Reason for Referral * Consultation (Routine) - Closed Specialty Diagnoses / Procedures Referred By Contac t Referred To Contact Vascular Surgery Diagnoses Peripheral vascular disease ROUTINE, /CARLOS, NALDO, B CAR DUP Sayra Hawk APRN [address] [place] [address] [facility] Vascular Surg [address] [place] [address] Referral ID Status Reason Start Date Expiration Date V isits Requested Visits Authorized [id number] Closed Consult, Test & Treat 07/20/2023 07/19/2024 1 1 Encounter Details Date Type Department Care Team (Late st Contact Info) Description 07/20/2023 Transcribe Orders eDH Incoming Referrals [phone] Sayra Hawk APRN [address] [place] [address] Peripheral vascular disease Social History Tobacco Use Types Packs/Day Years [...] AM EDT Appointment H[place]ology [place] [address] 01/21/2024 10:[address] [place] [place] [address] Heber Phillips MD [facility] DR HEMATOLOGY/[place] [address] 03/28/2024 10:00 AM EDT Office Visit Hematology/Oncology at [address] [address] Heber Phillips MD [facility] DR HEMATOLOGY/[place] [address] Isabella Baker APRN [facility] [place] [address] Scheduled Referrals Name Type Priority Associated Diagnoses Orde r Schedule Referral to Vascular Surgery Outpatient Referral Urgent Peripheral vascular disease Ordered: 07/20/2023 documented as of this encounter Visit Diagnoses Diagnosis Peripheral vascular disease Peripheral vascular disease, unspecified documented in this encounter Care Teams Spare Fixer Relationship Specialty Start Date End Date Sayra Hawk APRN [address] [facility] [place] [address] PCP - General Family Medicine 11/03/22 documented as of this encounter
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
--- OUTSIDE RECORDS SUMMARY | 2024-01-05 02:42 | XMS_ITS | Encounter Summary ---
Author Organization Formerly [facility] [place] [address] Care Team Providers Care Wire Splicer Name Role Phone Kenn Sayra LOW Primary Care Provider +1 [phone] Reason for Referral * Diagnostic Test (Routine) - Closed Specialty Diagnoses / Procedures Referred By Contac t Referred To Contact Radiology Diagnoses Chest pain, unspecified type Procedures NM PET CT Cardiac Pharmacologic Stress CT Component Faustina Miller MD [facility] [place] [address] [place] [address] Referral ID Status Reason Start Date Expiration Date V isits Requested Visits Authorized [id number] Closed Specialty Service Requested 11/03/2022 05/02/2024 1 1 * Diagnostic Test (Routine) - Closed Specialty Diagnoses / Procedures Referred By Contac t Referred To Contact Radiology Diagnoses Chest pain, unspecified type Procedures NM PET CT Cardiac Pharmacologic Stress and Rest Faustina Miller MD [facility] [place] [address] [place] [address] Referral ID Status Reason Start Date Expiration Date V isits Requested Visits Authorized [id number] Closed Specialty Service Requested 11/03/2022 05/02/2024 1 1 Reason for Visit * Diagnostic Test (Routine) - Closed Specialty Diagnoses / Procedures Referred By Keven lozano Referred To Contact Radiology Diagnoses Chest pain, unspecified type Procedures NM PET CT Cardiac Pharmacologic Stress and Rest Faustina Miller MD [facility] [place] [address] [place] [address] Referral ID Status Reason Start Date Expiration Date V isits Requested Visits Authorized [id number] Closed Specialty Service Requested 11/03/2022 05/02/2024 1 1 Encounter Details Date Type Department Care Team (Latest Contact Info) Description 12/08/2022 11:20 AM EDT - 12/08/2022 11:31 AM EDT Hospital Encounter [place] [address] Faustina Miller MD [facility] [place] [address] Chest pain, unspecified type Discharge Disposition: Home [...] mg Tablet, SublingualIndications :Coronary artery disease involving [place] heart without angina pectoris, unspecified vessel or [...] AM EDT Appointment Hematology [place] [address] 01/21/2024 10:[address] [place] [address] Heber Phillips MD [facility] HEMATOLOGY/[place] [address] 03/28/2024 10:00 AM EDT Office Visit Hematology/Oncology at [address] [phone] Heber Phillips MD [facility] DR HEMATOLOGY/[place] [address] Isabella Baker APRN [facility] DR [place]ICAL [place] [address] documented as of this encounter Procedures Procedure Name Priority Date/Time Associated Diagnosis Comments NM PET CT CARDIAC PHARMACOLOGIC STRESS CT COMPONENT Routine 12/08/2022 12:11 PM EDT Chest pain, unspecified type NM PET CT CARDIAC PHARMACOLOGIC STRESS Routine 12/08/2022 12:11 PM EDT Chest pain, unspecified type documented in this encounter Results * NM PET CT Cardiac Pharmacologic Stress CT Component (12/08/2022 12:11 PM EDT) Anatomical Region Laterality Modality Positron Emissio n Tomography (PET) Impressions 12/08/2022 4:21 PM EDT 1. ??No ischemia or scar. 2. ??Left ventricular function is normal. 3. ??Decreased coronary flow reserve is present in the left circumflex territory. There is borderline diminished coronary flow reserve LAD territory and overall. This may be a reflection of microvascular disease. Preliminary report signed by: Leno Liang at 12/08/2022 3:59 PM I have personally reviewed the image(s) and the resident's interpretation and agree with the findings, Vamsi Perez MD at 12/08/2022 4:21 PM Thank you for letting us participate in the care of this patient. ??If you are a health care provider and have any questions regarding this report, please contact the number below. ??For patients who have questions please contact the health home care assistant that requested your imaging first. ? Electronically signed by: Vamsi Perez MD, [facility] ([phone]), at 12/08/2022 4:21 PM Narrative 12/08/2022 4:21 PM EDT EXAMINATION: NM PET CT CARDIAC PHARMACOLOGIC STRESS AND REST, NM PET CT CARDIAC PHARMACOLOGIC STRESS CT COMPONENT CLINICAL HISTORY: CAD ESCAMILLA TECHNIQUE: During rest, 30 mCi of Rubidium-82 was administered intravenously. PET images of the heart were obtained with reconstruction in the short, vertical long and horizontal long axis. The patient then received regadenoson intravenously at a dose of 0.4 mg. Immediately following, 30 mCi of Rubidium-82 was administered intravenously. Images of the heart were then again obtained with PET reconstruction. A low-dose CT scan was acquired for the purpose of attenuation correction COMPARISON: Chest CT 04/10/2022 FINDINGS: No fixed or reversible perfusion defects are present. Functional analysis: Myocardial function: There is normal wall thickening and wall motion. Rest Left ventricular ejection fraction: 63% Stress Left ventricular ejection fraction: 69% Coronary flow reserve LAD territory: 1.9 Coronary flow reserve Circumflex territory: 1.6 Coronary flow reserve RCA territory: 2.2 Coronary flow reserve total: 1.[address] FINDINGS: Coronary and aortic calcifications. Procedure Note Vamsi Perez MD - 12/08/2022 EXAMINATION: NM PET CT CARDIAC PHARMACOLOGIC STRESS AND REST, NM PET CTCARDIAC PHARMACOLOGIC STRESS CT COMPONENT CLINICAL HISTORY: CAD ESCAMILLA TECHNIQUE: During rest, 30 mCi of Rubidium-82 was administeredintravenously. PET images of the heart were obtained with reconstruction in the short,vertical long and horizontal long axis. The patient then received regadenoson intravenously at a dose of 0.4 mg. Immediately following, 30 mCi of Rubidium-82 was administeredintravenously. Images of the heart were then again obtained with PET reconstruction. A low-dose CT scan was acquired for the purpose of attenuationcorrection COMPARISON: Chest CT 04/10/2022 FINDINGS: No fixed or reversible perfusion defects are present. Functional analysis: Myocardial function: There is normal wall thickening and wall motion. Rest Left ventricular ejection fraction: 63% Stress Left ventricular ejection fraction: 69% Coronary flow reserve LAD territory: 1.9 Coronary flow reserve Circumflex territory: 1.6 Coronary flow reserve RCA territory: 2.2 Coronary flow reserve total: 1.[address] FINDINGS: Coronary and aortic calcifications. IMPRESSION 1. No ischemia or scar. 2. Left ventricular function is normal. 3. Decreased coronary flow reserve is present in the left circumflexterritory. There is borderline diminished coronary flow reserve LAD territory andoverall. This may be a reflection of microvascular disease. Preliminary report signed by: Leno Liang at 12/08/2022 3:59 PM I have personally reviewed the image(s) and the resident's interpretationand agree with the findings, Vamsi Perez MD at 12/08/2022 4:21 PM Thank you for letting us participate in the care of this patient. If youare a health care provider and have any questions regarding this report,please contact the number below. For patients who have questions please contactthe health home care assistant that requested your imaging first. Electronically signed by: Vamsi Perez MD, [facility]([phone]), at 12/08/2022 4:21 PM Faustina Miller MD IMG PET ORDERABLES * NM PET CT Cardiac Pharmacologic Stress and Rest (12/08/2022 12:11 PM EDT) Anatomical Region Laterality Modality Positron Emissio n Tomography (PET) Impressions 12/08/2022 4:21 PM EDT 1. ??No ischemia or scar. 2. ??Left ventricular function is normal. 3. ??Decreased coronary flow reserve is present in the left circumflex territory. There is borderline diminished coronary flow reserve LAD territory and overall. This may be a reflection of microvascular disease. Preliminary report signed by: Leno Liang at 12/08/2022 3:59 PM I have personally reviewed the image(s) and the resident's interpretation and agree with the findings, Vamsi Perez MD at 12/08/2022 4:21 PM Thank you for letting us participate in the care of this patient. ??If you are a health care provider and have any questions regarding this report, please contact the number below. ??For patients who have questions please contact the health home care assistant that requested your imaging first. ? Electronically signed by: Vamsi Perez MD, [facility] ([phone]), at 12/08/2022 4:21 PM Narrative 12/08/2022 4:21 PM EDT EXAMINATION: NM PET CT CARDIAC PHARMACOLOGIC STRESS AND REST, NM PET CT CARDIAC PHARMACOLOGIC STRESS CT COMPONENT CLINICAL HISTORY: CAD ESCAMILLA TECHNIQUE: During rest, 30 mCi of Rubidium-82 was administered intravenously. PET images of the heart were obtained with reconstruction in the short, vertical long and horizontal long axis. The patient then received regadenoson intravenously at a dose of 0.4 mg. Immediately following, 30 mCi of Rubidium-82 was administered intravenously. Images of the heart were then again obtained with PET reconstruction. A low-dose CT scan was acquired for the purpose of attenuation correction COMPARISON: Chest CT 04/10/2022 FINDINGS: No fixed or reversible perfusion defects are present. Functional analysis: Myocardial function: There is normal wall thickening and wall motion. Rest Left ventricular ejection fraction: 63% Stress Left ventricular ejection fraction: 69% Coronary flow reserve LAD territory: 1.9 Coronary flow reserve Circumflex territory: 1.6 Coronary flow reserve RCA territory: 2.2 Coronary flow reserve total: 1.[address] FINDINGS: Coronary and aortic calcifications. Procedure Note Vamsi Perez MD - 12/08/2022 EXAMINATION: NM PET CT CARDIAC PHARMACOLOGIC STRESS AND REST, NM PET CTCARDIAC PHARMACOLOGIC STRESS CT COMPONENT CLINICAL HISTORY: CAD ESCAMILLA TECHNIQUE: During rest, 30 mCi of Rubidium-82 was administeredintravenously. PET images of the heart were obtained with reconstruction in the short,vertical long and horizontal long axis. The patient then received regadenoson intravenously at a dose of 0.4 mg. Immediately following, 30 mCi of Rubidium-82 was administeredintravenously. Images of the heart were then again obtained with PET reconstruction. A low-dose CT scan was acquired for the purpose of attenuationcorrection COMPARISON: Chest CT 04/10/2022 FINDINGS: No fixed or reversible perfusion defects are present. Functional analysis: Myocardial function: There is normal wall thickening and wall motion. Rest Left ventricular ejection fraction: 63% Stress Left ventricular ejection fraction: 69% Coronary flow reserve LAD territory: 1.9 Coronary flow reserve Circumflex territory: 1.6 Coronary flow reserve RCA territory: 2.2 Coronary flow reserve total: 1.[address] FINDINGS: Coronary and aortic calcifications. IMPRESSION 1. No ischemia or scar. 2. Left ventricular function is normal. 3. Decreased coronary flow reserve is present in the left circumflexterritory. There is borderline diminished coronary flow reserve LAD territory andoverall. This may be a reflection of microvascular disease. Preliminary report signed by: Leno Liang at 12/08/2022 3:59 PM I have personally reviewed the image(s) and the resident's interpretationand agree with the findings, Vamsi Perez MD at 12/08/2022 4:21 PM Thank you for letting us participate in the care of this patient. If youare a health care provider and have any questions regarding this report,please contact the number below. For patients who have questions please contactthe health home care assistant that requested your imaging first. Electronically signed by: Vamsi Perez MD, [facility]([phone]), at 12/08/2022 4:21 PM Faustina Miller MD IM PET ORDERABLES documented in this encounter Visit Diagnoses Diagnosis Chest pain, unspecified type documented in this encounter Administered Medications Inactive Administered Medications - up to 3 most recent administrations Medication Order MAR Action Action Date Dose Rate Site regadenoson (Lexiscan) injection 0.4 mg 0.4 mg, Intravenous, ONCE, 1 dose, On 12/08/22 at 1215, Radiology Contrast, Routine Given 12/08/2022 11:58 AM EDT 0.4 mg Righ t Arm rubidium (Rb-82) (Cardiogen) injection 1-50 mCi 1-50 mCi, Intravenous, 2 TIMES DAILY PRN, Starting on Wed12/08/22 at 1147, Until Wed12/09/22 at 0434, Per Protocol, Radiology Contrast, Routine Given 12/08/2022 11:58 AM EDT 30.1 mCi Right Arm Given 12/08/2022 11:48 AM EDT 30.1 mCi R ight Arm documented in this encounter Care Teams Wire Splicer Relationship Specialty Start Date End Date Kenn Sayra, DINING ROOM SERVER [address] [place] [address] PCP - General Family Medicine 11/03/22 documented as of this encounter
--- OUTSIDE RECORDS SUMMARY | 2024-01-05 02:42 | XMS_ITS | Encounter Summary ---
Author Organization [facility] [place] [address] Care Team Providers Care Artificial Insemination Technician Name Role Phone None Primary Care Provider Unavailabl e Reason for Referral * Consultation (Routine) - Closed Specialty Diagnoses / Procedures Referred By Contfatimah t Referred To Contact Cardiology Diagnoses Coronary artery disease, unspecified vessel or lesion type, unspecified whether angina present, unspecified whether [place] or transplanted heart CARD ONC CAD. Very overdue for f/up. 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 Sayra Hawk APRN [address] [place] [address] [facility] [place] [place] Cardiology [address] [place] [phone] Referral ID Status Reason Start Date Expiration Date V isits Requested Visits Authorized [id number] Closed Consult, Test & Treat 10/16/2022 10/16/2023 1 1 Encounter Details Date Type Department Care Team (Late st Contact Info) Description 10/16/2022 Transcribe Orders eDH Incoming Referrals [phone] Sayra Hawk APRN [address] [place], [place] [address] Coronary artery disease, unspecified vessel or lesion type, unspecified whether angina present, unspecified whether [place] or transplanted heart Social History Tobacco Use Types Packs/Day Years [...] AM EDT Appointment Hematology [place] [address] 01/21/2024 10:[address] [place] [address] Heber Phillips MD [facility] DR HEMATOLOGY/[place] [address] 03/28/2024 10:00 AM EDT Office Visit Hematology/Oncology at [address] [phone] Heber Phillips MD [facility] HEMATOLOGY/[place] [address] Isabella Baker APRN [facility] [place] [address] Scheduled Referrals Name Type Priority Associated Diagnoses Orde r Schedule Referral to Cardiology Outpatient Referral Routine Coronary artery disease, unspecified vessel or lesion type, unspecified whether angina present, unspecified whether [place] or transplanted heart Ordered: 10/16/2022 documented as of this encounter Visit Diagnoses Diagnosis Coronary artery disease, unspecified vessel or lesion type, unspecified whether angina present, unspecified whether [place] or transplanted heart documented in this encounter Care Teams Artificial Insemination Technician Relationship Specialty Start Date End Date None None PCP - General 01/12/22 11/02/22 documented as of this encounter
--- OUTSIDE RECORDS SUMMARY | 2024-01-05 02:42 | XMS_ITS | Encounter Summary ---
[place] [address] Care Team Providers Care Tank Bottom Assembler Name Role Phone Nataliya Messina MD Primary Care Provider [phone] Encounter Details Date Type Department Care Team (Late st Contact Info) Description 09/22/2021 Telephone Cardiology at [address] [address] Zita Brennan Social History Tobacco Use Types Packs/Day Years [...] encounter Miscellaneous Notes * Telephone Encounter - Zita Brennan - 09/22/2021 11:22 AM EDT Letter sent to notify research patient (ABSORB research stent study) that they received the ABSORB stent. Certified mail #[id number] documented in this encounter Plan of Treatment Upcoming Encounters Date Type Department Care Team (Late st Contact Info) Description 01/10/2024 7:45 AM EDT Appointment Hematology [place] [address] 01/21/2024 10:[address] [place] [address] Heber Phillips MD [facility] HEMATOLOGY/[place] [address] 03/28/2024 10:00 AM EDT Office Visit Hematology/Oncology at [address] [phone] Heber Phillips MD [facility] HEMATOLOGY/[place] [address] Isabella Baker APRN [facility] [place] [address] documented as of this encounter Visit Diagnoses Not on filedocumented in this encounter Care Teams Tank Bottom Assembler Relationship Specialty Start Date End Date Nataliya Messina MD [address] [place] [address] PCP - General 10/02/11 01/11/22 documented as of this encounter
--- OUTSIDE RECORDS SUMMARY | 2024-01-05 02:42 | XMS_ITS | Encounter Summary ---
[place] [address] Care Team Providers Care Combat Systems Operator Name Role Phone Nataliya Messina MD Primary Care Provider [phone] Reason for Visit * Reason Onset Date Comments Follow-up 12/25/2021 Pet no mri Encounter Details Date Type Department Care Team (Late Contact Info) Description 12/25/2021 Telephone Hematology/Oncology at [address] [phone] Aleida Knight RN Follow-up (Pet no mri) Social History Tobacco Use Types Packs/Day Years [...] Telephone Encounter - Aleida Knight RN - 12/25/2021 9:30 AM EDT Pt called back on new number [phone],. He does not want to do MRI, he will do pet and have blood work at [facility]. We will see him with appointment in . when those are complete. Pt agrees with plan. documented in this encounter Plan of Treatment Upcoming Encounters Date Type Department Care Team (Late Contact Info) Description 01/10/2024 7:45 AM EDT Appointment Hematology [place] [address] 01/21/2024 10:[address] [place] [address] Heber Phillips MD [facility] DR HEMATOLOGY/[place] [address] 03/28/2024 10:00 AM EDT Office Visit Hematology/Oncology at [address] [phone] Heber Phillips MD [facility] DR HEMATOLOGY/[place] [address] Isabella Baker APRN [facility] [place] [address] documented as of this encounter Visit Diagnoses Not on filedocumented in this encounter Care Teams Combat Systems Operator Relationship Specialty Start Date End Date Nataliya Messina MD [address] [place] [address] PCP - General 10/02/11 01/11/22 documented as of this encounter
--- OUTSIDE RECORDS SUMMARY | 2024-01-05 02:42 | XMS_ITS | Encounter Summary ---
Author Organization [facility] Address [facility] [place] [address] Care Team Providers Care Material Handling Equipment Stevedore Name Role Phone None Primary Care Provider Unavailabl e Reason for Visit * Reason Comments IV Medication monoferric * Treatment/Therapy Plan Authorization (Routine) - Closed Specialty Diagnoses / Procedures Referred By Contfatimah t Referred To Contact Diagnoses Iron deficiency anemia, unspecified iron deficiency anemia type Heber Phillips MD [facility] HEMATOLOGY/[place] [address] Stj Hem Onc Infusion [address] [place] [phone] Referral ID Status Reason Start Date Expiration Date Visits Re quested Visits Authorized [id number] Closed 01/13/2022 01/13/2023 99 99 Encounter Details Date Type Department Care Team (Late st Contact Info) Description 01/22/2022 12:30 PM EDT Infusion Hematology Oncology at [address] [address] Iron deficiency anemia, unspecified iron deficiency anemia [...] Sign Reading Time Taken Comments Blood Pressure 148/66 01/22/2022 12:29 PM EDT Pulse 81 01/22/2022 12:29 PM EDT Temperature 36.5 ??C (97.7 ??F) 01/22/2022 12:29 PM E DT Respiratory Rate 22 01/22/2022 12:29 PM EDT Oxygen Saturation 94% 01/22/2022 12:29 PM EDT Inhaled Oxygen Concentration - - Weight 77.7 kg (171 lb 6.4 oz) 01/22/2022 12:29 PM EDT Height 170.2 cm (5' 7.01) 01/22/2022 12:29 PM E DT Body Mass Index 26.84 01/22/2022 12:29 PM EDT documented in this encounter Progress Notes * Radha Gorman RN - 01/22/2022 12:30 PM EDT INFUSION THERAPY ADMINISTRATION NOTES DIAGNOSIS: Iron Deficiency REASON FOR VISIT: Venofer infusion SUBJECTIVE Hieu Tillman offers no complaints. OBJECTIVE Patient Vitals for the past 24 hrs: Temp Pulse Resp BP SpO2 O2 Device 01/22/22 1229 36.5 ??C (97.7 ??F) 81 22 148/66 94 % RA LAB DATA: completed 01/12/22 at [facility] Pre administration: Chemotherapy orders independently verified for drug name, route, and dosage per patient's height, weight and BSA by Radha Gorman, BOB & On-site pharmacist. REACTIONS (DESCRIPTION, TIME, INTERVENTION AND EFFECTIVENESS) None ASSESSMENT Hieu Tillman was awake, alert and tolerated treatment well. Patient remained in clinic for 30 min post infusion to monitor for reactions. Port flushed with 20 cc's of NS and 500 units of heparin and de-accessed. PLAN Return to clinic as scheduled.. documented in this encounter Plan of Treatment Upcoming Encounters Date Type Department Care Team (Late st Contact Info) Description 01/10/2024 7:45 AM EDT Appointment Hematology [place] [address] 01/21/2024 10:[address] [place] [address] Heber Phillips MD [facility] DR HEMATOLOGY/[place] [address] 03/28/2024 10:00 AM EDT Office Visit Hematology/Oncology at [address] [phone] Heber Phillips MD [facility] HEMATOLOGY/[place] [address] Isabella Baker APRN [facility] [place] [address] documented as of this encounter Visit Diagnoses Diagnosis Iron deficiency anemia, unspecified iron deficiency anemia type documented in this encounter Administered Medications Inactive Administered Medications - up to 3 most recent administrations Medication Order MAR Action Action Date Dose Rate Site ferric derisomaltose (Monoferric) 1,000 mg in sodium chloride 0.9% 110 mL infusion 1,000 mg, Intravenous, ONCE, 1 dose, On Federica 01/22/22 at 1315, Administer over 20 Minutes, Administer over at least 20 minutes. Monitor for 30 minutes after infusion for hypersensitivity reactions. Compatible only in sodium chloride 0.9%, This agent is restricted to oupatient use. Is this drug being given as an outpatient? Yes New Bag 01/22/2022 1:16 PM EDT 1,000 mg 330 mL/hr documented in this encounter Care Teams Material Handling Equipment Stevedore Relationship Specialty Start Date End Date None None PCP - General 01/12/22 11/02/22 documented as of this encounter
--- OUTSIDE RECORDS SUMMARY | 2024-01-05 02:42 | XMS_ITS | Encounter Summary ---
Author Organization [facility] Address [facility] [place] [address] Care Team Providers Care Title Specialist Name Role Phone None Primary Care Provider Unavailabl e Encounter Details Date Type Department Care Team (Latest Contact Info) Description 04/21/2022 Travel Social History Tobacco Use Types Packs/Day [...] AM EDT Appointment Hematology [place] [address] 01/21/2024 10:[address] [place] [address] Heber Phillips MD [facility] HEMATOLOGY/[place] [address] 03/28/2024 10:00 AM EDT Office Visit Hematology/Oncology at [address] [phone] Heber Phillips MD [facility] HEMATOLOGY/[place] [address] Isabella Baker APRN [facility] [place] [address] documented as of this encounter Visit Diagnoses Not on filedocumented in this encounter Care Teams Title Specialist Relationship Specialty Start Date End Date None None PCP - General 01/12/22 11/02/22 documented as of this encounter
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
--- OUTSIDE RECORDS SUMMARY | 2024-01-05 02:42 | XMS_ITS | Encounter Summary ---
Author Organization [facility] [place] [address] Care Team Providers Care Software Engineer Name Role Phone Nataliya Messina MD Primary Care Provider Encounter Details Date Type Department Care Team (Latest Contact Info) Description 07/08/2021 8:36 AM EST - 07/08/2021 8:56 AM EST Hospital Encounter Hematology [place] [address] Discharge Disposition: Home Social History Tobacco Use [...] Sig Dispensed Refills Start Date End Date nitroGLYcerin (Nitrostat) 0.4 mg Tablet, SublingualIndications :Coronary artery disease involving [place] heart without angina pectoris, unspecified vessel or [...] tablet Take 81 mg by mouth daily. tamsulosin (Flomax) 0.4 mg Capsule TAKE TWO CAPSULES BY MOUTH AT BEDTIME 01/05/2021 10/13/2022 hydrALAZINE (Apresoline) 25 mg Tablet Take by mouth. 11/02/2016 10/13/2022 clopidogrel (PLAVIX) 75 mg tablet Take 1 tablet by mouth daily. 90 tablet 3 09/13/2013 07/30/2023 hydrochlorothiazide (HYDRODIURIL) 25 mg tablet Take 25 mg by mouth every other day. 10/12/2023 documented as of this encounter Plan of Treatment Upcoming Encounters Date Type Department Care Team (Late st Contact Info) Description 01/10/2024 7:45 AM EDT Appointment Hematology [place] [address] 01/21/2024 10:[address] [place] [phone] Heber Phillips MD [facility] [address] HEMATOLOGY/[place] [address] 03/28/2024 10:00 AM EDT Office Visit Hematology/Oncology at [address] [address] Heber Phillips MD [facility] DR HEMATOLOGY/[place] [address] Isabella Baker APRN [facility] [place] [address] documented as of this encounter Visit Diagnoses Not on filedocumented in this encounter Care Teams Software Engineer Relationship Specialty Start Date End Date Nataliya Messina MD [address] [place] [address] [address] [place] [address] PCP - General 10/02/11 01/11/22 documented as of this encounter
--- OUTSIDE RECORDS SUMMARY | 2024-01-05 02:42 | XMS_ITS | Encounter Summary ---
[place] [address] Care Team Providers Care Steel Plate Printer Name Role Phone Nataliya Messina MD Primary Care Provider [phone] Encounter Details Date Type Department Care Team (Late st Contact Info) Description 12/02/2021 Telephone Hematology/Oncology at [address] [address] Gina Sethi Social History Tobacco Use Types Packs/Day Years [...] encounter Miscellaneous Notes * Telephone Encounter - Gina Sethi - 12/02/2021 10:48 AM EDT Hieu is due for a 6M FUV with Dr. Phillips in December. For this appointment, he needs imaging prior.I had attempted to contact Hieu for a few weeks to get the MRI screening forms filled out but had not heard from him. I called Glenys, his sister, and she was going to give him a call to have him return a call to me. Once Hieu fills out the screening forms required for the scans, we will plan to get him scheduled accordingly. documented in this encounter Plan of Treatment Upcoming Encounters Date Type Department Care Team (Late st Contact Info) Description 01/10/2024 7:45 AM EDT Appointment Hematology [place] [address] 01/21/2024 10:[address] [place] [place] [address] Heber Phillips MD [facility] DR HEMATOLOGY/[place] [address] 03/28/2024 10:00 AM EDT Office Visit Hematology/Oncology at [address] [address] Heber Phillips MD [facility] DR HEMATOLOGY/[place] [address] Isabella Baker APRN [facility] [place] [address] documented as of this encounter Visit Diagnoses Not on filedocumented in this encounter Care Teams Steel Plate Printer Relationship Specialty Start Date End Date Nataliya Messina MD [address] [place] [address] PCP - General 10/02/11 01/11/22 documented as of this encounter
--- OUTSIDE RECORDS SUMMARY | 2024-01-05 02:42 | XMS_ITS | Encounter Summary ---
Author Organization [facility] Address [facility] [place] [address] Care Team Providers Care Certified Residential Medication Aide Name Role Phone None Primary Care Provider Unavailabl e Encounter Details Date Type Department Care Team (Latest Contact Info) Description 09/28/2022 Travel Social History Tobacco Use Types Packs/Day [...] AM EDT Appointment Hematology [place] [address] 01/21/2024 10:[address] [place] [address] Heber Phillips MD [facility] HEMATOLOGY/[place] [address] 03/28/2024 10:00 AM EDT Office Visit Hematology/Oncology at [address] [address] Heber Phillips MD [facility] HEMATOLOGY/[place] [address] Isabella Baker APRN [facility] [place] [address] documented as of this encounter Visit Diagnoses Not on filedocumented in this encounter Care Teams Certified Residential Medication Aide Relationship Specialty Start Date End Date None None PCP - General 01/12/22 11/02/22 documented as of this encounter
--- OUTSIDE RECORDS SUMMARY | 2024-01-05 02:42 | XMS_ITS | Encounter Summary ---
Author Organization [facility] [place] [address] Care Team Providers Care Cell Tower Climber Name Role Phone None Primary Care Provider Unavailabl e Reason for Referral * Diagnostic Test (Routine) - Closed Specialty Diagnoses / Procedures Referred By Contac t Referred To Contact Radiology Diagnoses Small cell lung cancer, right upper lobe Procedures NM PET CT Skull Base to Mid-thigh Heber Phillips MD [facility] DR HEMATOLOGY/[place] [address] [place] [address] Referral ID Status Reason Start Date Expiration Date V isits Requested Visits Authorized [id number] Closed Specialty Service Requested 04/21/2022 10/20/2023 1 1 Reason for Visit * Diagnostic Test (Routine) - Closed Specialty Diagnoses / Procedures Referred By Contac t Referred To Contact Radiology Diagnoses Small cell lung cancer, right upper lobe Procedures NM PET CT Skull Base to Mid-thigh Heber Phillips MD [facility] HEMATOLOGY/[place] [address] [place] [address] Referral ID Status Reason Start Date Expiration Date V isits Requested Visits Authorized [id number] Closed Specialty Service Requested 04/21/2022 10/20/2023 1 1 Encounter Details Date Type Department Care Team (Latest Contact Info) Description 09/28/2022 11:56 AM EDT - 09/28/2022 11:59 PM EDT Hospital Encounter Nuclear Medicine at [facility] [place] [address] Heber Phillips MD [facility] HEMATOLOGY/[place] [address] Small cell lung cancer, right upper lobe [...] mg Tablet, SublingualIndications :Coronary artery disease involving [place] heart without angina pectoris, unspecified vessel or [...] AM EDT Appointment [place] [address] 01/21/2024 10:[address] [place] [place] [address] Heber Phillips MD [facility] HEMATOLOGY/[place] [address] 03/28/2024 10:00 AM EDT Office Visit Hematology/Oncology at [address] [phone] Heber Phillips MD [facility] HEMATOLOGY/[place] [address] Isabella Baker APRN [facility] [place] [address] documented as of this encounter Procedures Procedure Name Priority Date/Time Associated Diagnosis Comments NM PET CT SKULL BASE TO MID-THIGH (LCSR) Routine 09/28/2022 1:26 PM EDT Small cell lung cancer, right upper lobe documented in this encounter Results * NM PET CT Skull Base to Mid-thigh (09/28/2022 1:26 PM EDT) Anatomical Region Laterality Modality Positron Emissio n Tomography (PET) Impressions 10/02/2022 2:02 PM EDT 1. ??No evidence of tumor recurrence or metastasis. 2. ??Interval appearance of small mildly FDG avid ill-defined opacities in the left lung base, consistent with an interval inflammatory process. I have personally reviewed the image(s) and the resident's interpretation and agree with the findings, Tino Gallardo MD at 10/02/2022 2:02 PM Thank you for letting us participate in the care of this patient. ??If you are a health care provider and have any questions regarding this report, please contact the number below. ??For patients who have questions please contact the health neonatal intensive care unit nurse that requested your imaging first. ? Narrative 10/02/2022 2:02 PM EDT EXAMINATION: NM PET CT STANDARD SKULL BASE TO MID-THIGH CLINICAL HISTORY: Small cell lung cancer, assess treatment response Restaging of limited stage small cell lung cancer, status post concurrent chemoradiation 2017. TECHNIQUE: Following IV injection of 27-wxhrzn-4-deoxyglucose (FDG) a standard uptake of approximately 60 minutes, a noncontrast CT scan followed by a PET scan were acquired from the base of the skull to mid thighs. The noncontrast CT was used for anatomic localization and photon attenuation correction of the PET scan. Blood glucose level: 88 (mg/dL) FDG dose: 11.3 mCi COMPARISON: PET/CT 01/12/2022. FINDINGS: HEAD/NECK: Normal activity in all soft tissue regions of the neck and visualized lower head. No lymphadenopathy. CHEST: Post treatment changes in the right upper lobe with fibrosis, atelectasis, and bronchiectasis are stable. Small mildly FDG avid ill-defined opacities in the medial and lateral left lung base (axial images 120-124) consistent with interval inflammation. Continued resolution of consolidation in the lingula. There is minimal residual linear atelectasis and scarring. Coronary and aortic calcifications. Unchanged small pericardial thickening or fluid. ABDOMEN/PELVIS: Normal activity in all soft tissue regions. Stable 3.2 cm infrarenal abdominal aortic aneurysm (axial image 165). Sigmoid diverticulosis. SKELETON/EXTREMITIES: No significant osseous abnormalities. Decreased marrow uptake within the upper thoracic spine, consistent with prior radiation treatment. ?? Procedure Note Tino Gallardo MD - 10/02/2022 EXAMINATION: NM PET CT STANDARD SKULL BASE TO MID-THIGH CLINICAL HISTORY: Small cell lung cancer, assess treatment response Restaging of limited stage small cell lung cancer, status postconcurrent chemoradiation 2017. TECHNIQUE: Following IV injection of 17-zkapvw-3-deoxyglucose (FDG) astandard uptake of approximately 60 minutes, a noncontrast CT scan followed by aPET scan were acquired from the base of the skull to mid thighs. The noncontrast CTwas used for anatomic localization and photon attenuation correction of thePET scan. Blood glucose level: 88 (mg/dL) FDG dose: 11.3 mCi COMPARISON: PET/CT 01/12/2022. FINDINGS: HEAD/NECK: Normal activity in all soft tissue regions of the neck and visualizedlower head. No lymphadenopathy. CHEST: Post treatment changes in the right upper lobe with fibrosis, atelectasis,and bronchiectasis are stable. Small mildly FDG avid ill-defined opacities in the medial and lateral leftlung base (axial images 120-124) consistent with interval inflammation. Continued resolution of consolidation in the lingula. There is minimalresidual linear atelectasis and scarring. Coronary and aortic calcifications. Unchanged small pericardial thickeningor fluid. ABDOMEN/PELVIS: Normal activity in all soft tissue regions. Stable 3.2 cm infrarenal abdominal aortic aneurysm (axial image 165).Sigmoid diverticulosis. SKELETON/EXTREMITIES: No significant osseous abnormalities. Decreased marrow uptake within the upper thoracic spine, consistent withprior radiation treatment. IMPRESSION 1. No evidence of tumor recurrence or metastasis. 2. Interval appearance of small mildly FDG avid ill-defined opacities inthe left lung base, consistent with an interval inflammatory process. I have personally reviewed the image(s) and the resident's interpretationand agree with the findings, Tino Gallardo MD at 10/02/2022 2:02 PM Thank you for letting us participate in the care of this patient. If youare a health care provider and have any questions regarding this report,please contact the number below. For patients who have questions please contactthe health neonatal intensive care unit nurse that requested your imaging first. Heber Phillips [...] Intravenous, ONCE PRN, 1 dose, Starting on Wed09/28/22 at 1220, Until Wed09/28/22 at 1213, Per Protocol, Radiology Contrast, Routine Given 09/28/2022 12:13 PM EDT 11.3 mCi Right Arm documented in this encounter Care Teams Cell Tower Climber Relationship Specialty Start Date End Date None None PCP - General 01/12/22 11/02/22 documented as of this encounter
--- OUTSIDE RECORDS SUMMARY | 2024-01-05 02:42 | XMS_ITS | Encounter Summary ---
Author Organization [facility] Address [facility] [address] Care Team Providers Care Geospatial Scientist Name Role Phone None Primary Care Provider Unavailabl e Reason for Visit * Diagnostic Test (Routine) - Closed Specialty Diagnoses / Procedures Referred By Contac t Referred To Contact Radiology Diagnoses Small cell lung cancer Small cell lung cancer, right upper lobe Procedures NM PET CT Skull Base to Mid-thigh Heber Phillips MD [facility] DR HEMATOLOGY/[place] [address] [facility] [place] [address] Referral ID Status Reason Start Date Expiration Date V isits Requested Visits Authorized [id number] Closed Specialty Service Requested 07/15/2021 01/12/2023 1 1 Encounter Details Date Type Department Care Team (Latest Contact Info) Description 01/12/2022 11:06 AM EDT - 01/12/2022 11:59 PM EDT Hospital Encounter [place] [address] Heber Phillips MD [facility] HEMATOLOGY/[place] [address] Discharge Disposition: Home Social History [...] mg Tablet, SublingualIndications :Coronary artery disease involving [place] heart without angina pectoris, unspecified vessel or [...] AM EDT Appointment Hematology [place] [address] 01/21/2024 10:[address] [place] [address] Heber Phillips MD [facility] HEMATOLOGY/[place] [address] 03/28/2024 10:00 AM EDT Office Visit Hematology/Oncology at [address] [address] Heber Phillips MD [facility] HEMATOLOGY/[place] [address] Isabella Baker APRN [facility] [place] [address] documented as of this encounter Procedures Procedure Name Priority Date/Time Associated Diagnosis Comments NM PET CT SKULL BASE TO MID-THIGH (LCSR) Routine 01/12/2022 1:18 PM EDT Small cell lung cancer Small cell lung [...] who have questions please contact the health rn progressive care that requested your imaging first. ? Electronically signed by: Tino Gallardo MD, [facility] ([phone]), at 01/13/2022 11:46 AM Narrative 01/13/2022 11:46 AM EDT EXAMINATION: NM PET CT STANDARD SKULL BASE TO MID-THIGH CLINICAL HISTORY: Small cell lung cancer, assess treatment response Restaging of small cell lung cancer TECHNIQUE: Following IV injection of 99-vxkotc-4-deoxyglucose (FDG) a standard uptake of approximately 60 [...] lung cancer TECHNIQUE: Following IV injection of 74-gagxjj-8-deoxyglucose (FDG) astandard uptake of approximately 60 minutes, a noncontrast CT scan followed by aPET scan were acquired from the base of the skull to mid thighs. The noncontrast CTwas used for anatomic localization and photon attenuation correction of thePET scan. Blood glucose level: 100 (mg/dL) FDG dose: 11.1 mCi COMPARISON: PET/CT 07/08/2021, 9, 10/14/2018 FINDINGS: HEAD/NECK: Unchanged subcentimeter FDG avid right level 2 lymph node, consistent witha benign reactive node. (axial image 16). No significant adenopathy. CHEST: * New approximately 2.5 cm ill-defined mild to moderately FDG avidnodular opacity in the inferior left upper lobe (axial image 102) and anterioradjacent mildly FDG avid small ill-defined opacities (axial images 93 [id number]). Appearance is most suggestive of an interval [...] patients who have questions please contactthe health rn progressive care that requested your imaging first. Electronically signed by: Tino Gallarod MD, [facility]([phone]), at 01/13/2022 11:46 AM Heber Phillips MD IMG PET ORDERABLES documented in this encounter Visit Diagnoses Not on filedocumented in this encounter Care Teams Geospatial Scientist Relationship Specialty Start Date End Date None None PCP - General 01/12/22 11/02/22 documented as of this encounter
--- OUTSIDE RECORDS SUMMARY | 2024-01-05 02:42 | XMS_ITS | Encounter Summary ---
Author Organization [facility] [place] [address] Care Team Providers Care Metal Furnace Operator Name Role Phone None Primary Care Provider Unavailabl e Reason for Referral * Diagnostic Test (Routine) - Closed Specialty Diagnoses / Procedures Referred By Contac t Referred To Contact Radiology Diagnoses Small cell lung cancer Small cell lung cancer, right upper lobe Procedures NM PET CT Skull Base to Mid-thigh Heber Phillips MD [facility] DR HEMATOLOGY/[place] [address] [place] [address] Referral ID Status Reason Start Date Expiration Date V isits Requested Visits Authorized [id number] Closed Specialty Service Requested 07/15/2021 01/12/2023 1 1 Reason for Visit * Diagnostic Test (Routine) - Closed Specialty Diagnoses / Procedures Referred By Contac t Referred To Contact Radiology Diagnoses Small cell lung cancer Small cell lung cancer, right upper lobe Procedures NM PET CT Skull Base to Mid-thigh Heber Phillips MD [facility] DR HEMATOLOGY/[place] [address] [place] [address] Referral ID Status Reason Start Date Expiration Date V isits Requested Visits Authorized [id number] Closed Specialty Service Requested 07/15/2021 01/12/2023 1 1 Encounter Details Date Type Department Care Team (Latest Contact Info) Description 01/12/2022 11:05 AM EDT Hospital Encounter Nuclear Medicine at [facility] [place] [address] Heber Phillips MD [facility] DR HEMATOLOGY/[place] [address] Small cell lung cancer; Small cell lung cancer, right upper lobe [...] mg Tablet, SublingualIndications :Coronary artery disease involving [place] heart without angina pectoris, unspecified vessel or [...] AM EDT Appointment Hematology [place] [address] 01/21/2024 10:[address] [place] [address] Heber Phillips MD [facility] DR HEMATOLOGY/[place] [address] 03/28/2024 10:00 AM EDT Office Visit Hematology/Oncology at [address] [phone] Heber Phillips MD [facility] HEMATOLOGY/[place] [address] Isabella Baker APRN [facility] [place] [address] documented as of this encounter Procedures Procedure Name Priority Date/Time Associated Diagnosis Comments NM PET CT SKULL BASE TO MID-THIGH (LCSR) Routine 01/12/2022 1:18 PM EDT Small cell lung cancer Small cell lung cancer, right upper lobe POCT GLUCOSE Routine 01/12/2022 11:21 AM EDT documented in this encounter Results * NM [...] who have questions please contact the health animal care technician that requested your imaging first. ? Narrative 01/13/2022 11:46 AM EDT EXAMINATION: NM PET CT STANDARD SKULL BASE TO MID-THIGH CLINICAL HISTORY: Small cell lung cancer, assess treatment response Restaging of small cell lung cancer TECHNIQUE: Following IV injection of 61-shgslq-6-deoxyglucose (FDG) a standard uptake of approximately 60 [...] lung cancer TECHNIQUE: Following IV injection of 57-kbyhqx-8-deoxyglucose (FDG) astandard uptake of approximately 60 minutes, [...] avid small ill-defined opacities (axial images 93 ). Appearance is most suggestive of an interval [...] patients who have questions please contactthe health animal care technician that requested your imaging first. Heber Phillips MD IMG PET ORDERABLES * POCT Glucose (01/12/2022 11:21 AM EDT) POC Glucose 100 65 - 199 mg/dL [facility] Comment: Supplemental ranges: <140 mg/dL before meals <180 mg/dL all other times of the day Blood 01/12/2022 11:2 1 AM EDT 01/12/2022 11:21 AM EDT Heber Phillips MD POINT OF CARE TEST O RDERABLES [facility] [place] [address] documented in this encounter Visit Diagnoses Diagnosis Small cell lung cancer Malignant neoplasm of bronchus and lung, unspecified site Small cell lung cancer, right upper lobe documented in this encounter Administered Medications Inactive Administered Medications - up to 3 most recent administrations Medication Order MAR Action Action Date Dose Rate Site fludeoxyglucose (F-18) FDG injection 0-20 mCi 0-20 mCi, Intravenous, ONCE PRN, 1 dose, Starting on Wed01/12/22 at 1202, Until Wed01/12/22 at 1154, Per Protocol, Radiology Contrast, Routine Given 01/12/2022 11:54 AM EDT 11.1 mCi Right Arm documented in this encounter Care Teams Metal Furnace Operator Relationship Specialty Start Date End Date None None PCP - General 01/12/22 11/02/22 documented as of this encounter
--- OUTSIDE RECORDS SUMMARY | 2024-01-05 02:42 | XMS_ITS | Encounter Summary ---
[place] [address] Care Team Providers Care Travel Director Name Role Phone Nataliya Messina MD Primary Care Provider [phone] Reason for Visit * Reason Onset Date Comments Other 12/25/2021 Green sputum Encounter Details Date Type Department Care Team (Late st Contact Info) Description 12/25/2021 Telephone Hematology/Oncology at [address] [address] Aleida Knight RN Other (Green sputum) Social History Tobacco Use Types Packs/Day Years [...] Encounter - Aleida Knight RN - 12/25/2021 9:51 AM EDT Hieu called and states he has been coughing up green phlegm and sometimes blood streaks noted in it. He has been feverish. This has been going on for over a week. I told him to see his PCP and to beevaluated by them. He is having Pet scan on 01/12/[address] Phillips on January 13. I told him I would let Dr. Phillips know and if he wants to chenge anything I would call him back. Pt agrees with plan. documented in this encounter Plan of Treatment Upcoming Encounters Date Type Department Care Team (Late st Contact Info) Description 01/10/2024 7:45 AM EDT Appointment Hematology [place] [address] 01/21/2024 10:[address] [place] [address] Heber Phillips MD [facility] DR HEMATOLOGY/[place] [address] 03/28/2024 10:00 AM EDT Office Visit Hematology/Oncology at [address] [address] Heber Phillips MD [facility] DR HEMATOLOGY/[place] [address] Isabella Baker APRN [facility] [place] [address] documented as of this encounter Visit Diagnoses Not on filedocumented in this encounter Care Teams Travel Director Relationship Specialty Start Date End Date Nataliya Messina MD [address] [place] [address] [address] [facility] [address] [place] [address] PCP - General 10/02/11 01/11/22 documented as of this encounter
--- OUTSIDE RECORDS SUMMARY | 2024-01-05 02:42 | XMS_ITS | Encounter Summary ---
Author Organization [facility] Address [facility] [place] [address] Care Team Providers Care Psychological Assistant Name Role Phone None Primary Care Provider Unavailabl e Reason for Referral * Diagnostic Test (Routine) - Closed Specialty Diagnoses / Procedures Referred By Contac t Referred To Contact Radiology Diagnoses Small cell lung cancer, right upper lobe Procedures NM PET CT Skull Base to Mid-thigh Heber Phillips MD [facility] HEMATOLOGY/[place] [address] [place] [address] Referral ID Status Reason Start Date Expiration Date V isits Requested Visits Authorized [id number] Closed Specialty Service Requested 04/21/2022 10/20/2023 1 1 Encounter Details Date Type Department Care Team (Late st Contact Info) Description 04/21/2022 2:30 PM EDT Office Visit Hematology/Oncology at [address] [phone] Heber Phillips MD [facility] HEMATOLOGY/[place] [address] Mary Cleaning RN Small cell lung cancer, right upper lobe (Primary Dx); Iron deficiency anemia, unspecified iron deficiency anemia type; SOB (shortness of breath) Social History Tobacco Use Types Packs/Day Years [...] Sign Reading Time Taken Comments Blood Pressure 146/59 04/21/2022 2:26 PM EDT Pulse 88 04/21/2022 2:26 PM EDT Temperature 36.5 ??C (97.7 ??F) 04/21/2022 2:26 PM ED T Respiratory Rate 22 04/21/2022 2:26 PM EDT Oxygen Saturation 94% 04/21/2022 2:26 PM EDT Inhaled Oxygen Concentration - - Weight 76.7 kg (169 lb) 04/21/2022 2:26 PM EDT Height 170.2 cm (5' 7.01) 04/21/2022 2:26 PM ED T Body Mass Index 26.46 04/21/2022 2:26 PM EDT documented in this encounter Progress Notes * Heber Phillips MD - 04/21/2022 2:30 PM EDT Images from the original note were not included. Diagnosis: High-grade neuroendocrine cancer of right lung, limited stage, clinical: stage IIIA (cT3, cN1, cM0) Subjective: I am still windy HPI:Hieu Tillman is 66 y.o. M referred by Dr. Ortiz for [...] referred for consideration of definitive chemoradiation. Subjective (04/21/22): Mr. Tillman returns to the [facility] for follow up of small cell lung cancer, anemia and discussion on restaging CT of chest . Overall, Hieu feels at his baseline. No changes in shortness of breath.Follows with local supply and distribution manager. Denies any pain. No fevers or chills.Denies any issues with his bowels. No constipation, diarrhea or blood in stool. PMH: No interval changes since last visit Admitted 05/16/2021 for COPD exacerbation Colonoscopy and upper endoscopy on February 21, 2021 [place] in 2013 status post 2 stents placement, [...] radiating to right leg ??? Myocardial infarction [place] about 6 years ago @ [facility] [place]-has stents ??? 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 Medications: Your Medications Accurate as of April 21, 2022 2:40 PM. If you have any questions, ask your nurse or doctor. Continued medications, unchanged Dose Details acetaminophen 325 mg Tab Commonly known as: Tylenol Take by mouth. Refills: 0 albuteroL 1.25 mg/3 mL Nebu Commonly known as: ACCUNEB Take 1 ampule by nebulization every 6 hours as needed for Wheezing. 1 ampule Refills: 0 aspirin EC 81 mg Tbec Take 81 mg by mouth daily. 81 mg Refills: 0 atorvastatin 80 mg Tab Commonly known as: Lipitor Take 1 tablet by mouth daily. 80 mg Quantity: 30 tablet Refills: 2 clopidogreL 75 mg Tab Commonly known as: Plavix Take 1 tablet by mouth daily. 75 mg Quantity: 90 tablet Refills: 3 Combivent Respimat 20-100 mcg/actuation Mist INHALE 1 PUFF BY MOUTH FOUR TIMES A DAY NEEDED FOR COPD Generic drug: ipratropium-albuteroL Refills: 0 FIBER CHOICE ORAL Take 1 tablet by mouth daily. 1 tablet Refills: 0 fluticasone furoate-vilanteroL 100-25 mcg/dose Dsdv Commonly known as: Breo Ellipta Inhale 1 puff into the lungs daily. 1 puff Refills: 0 hydrALAZINE 25 mg Tab Commonly [...] every other day. 1 tablet Refills: 0 metoproloL tartrate 25 mg Tab Commonly known as: [...] CAPSULES BY MOUTH AT BEDTIME Refills: 0 Wt Readings from Last 3 Encounters: 04/21/22 76.7 kg (169 lb) 01/22/22 77.7 kg (171 lb 6.4 oz) 01/13/22 74.4 kg (164 lb) Review of Systems: Constitutional: Negative for fever, [...] Negative. Neurological: Negative. Hematological: Negative for adenopathy. BP 146/59 (Patient Position: Sitting) Pulse 88 Temp 36.5 ??C (97.7 ??F) (Temporal) Resp 22 Ht 170.2 cm (5' 7.01) Wt 76.7 kg (169 lb) SpO2 94% BMI 26.46 kg/m?? Wt Readings from Last 3 Encounters: 04/21/22 76.7 kg (169 lb) 01/22/22 77.7 kg (171 lb 6.4 oz) 01/13/22 74.4 kg (164 lb) Physical Exam Constitutional: He is oriented to [...] normal. Judgment and thought content normal. Labs: 03/24/2022 BUN 20, creatinine 1.1, ferritin 57, [...] count 425, ANC 5.42 09/17/20- WBC-9.21 Hgb/Hct-11.9/36.1 [id number] ANC-6.94 03/05/2020 WBC 8.23, hemoglobin 14.6, platelet count 387, ANC 6.5, sodium 131, potassium 3.9, BUN 12, creatinine 1.01, calcium 9.3, TB 0.3, AST 26, ALT 38, alkaline phosphatase 112, total protein 7.5. 10/24/19 WBC 8.18, hemoglobin 13.3, platelet count 464, ANC 5.99 sodium 127, BUN 17, creatinine 1.13, calcium 8.9, AST 22, ALT 38, alkaline phosphatase 129, total protein 7.6, albumin 3.8. Imagin04/10/2020 CT chest with contrast: Impression: Compared to [...] most consistent with an interval inflammatory/infectious process. ?? 07/08/21 PET-CT scan: IMPRESSION 1. No evidence [...] including history of stroke, severe peripheralvascular disease, KS status post stent placement and COPD. His [...] review of PET scan. PET scan shows ??no evidence of tumor recurrence or metastasis. Interval appearance of ill-defined mild to moderately [...] months with PET scan and blood work #Anemia: Ferritin is 57, hemoglobin 13, improved so he is still iron deficient. [...] PCP. He may need to see a supply and distribution manager again. Plan: 1. Second reading on CT scan of chest 2. CBC, CMP, ferritin, PET scan all at in 6 months 3. Next visit in 1 week after PET scan with Monoferric infusion at [facility] The plan was discussed with the patient in details. All questions were answered to patient's satisfaction. documented in this encounter Plan of Treatment Upcoming Encounters Date Type Department Care Team (Late st Contact Info) Description 01/10/2024 7:45 AM EDT Appointment Hematology [place] [address] 01/21/2024 10:[address] [place] [address] Heber Phillips MD [facility] HEMATOLOGY/[place] [address] 03/28/2024 10:00 AM EDT Office Visit Hematology/Oncology at [address] [phone] Heber Phillips MD [facility] DR HEMATOLOGY/[place] [address] Isabella Baker APRN [facility] [place] [address] documented as of this encounter Results * [...] who have questions please contact the health customer care manager that requested your imaging first. ? Narrative 10/02/2022 2:02 PM EDT EXAMINATION: NM PET CT STANDARD SKULL BASE TO MID-THIGH CLINICAL HISTORY: Small cell lung cancer, assess treatment response Restaging of limited stage small cell lung cancer, status post concurrent chemoradiation 2018. TECHNIQUE: Following IV injection of 72-cjxtqj-6-deoxyglucose (FDG) a standard uptake of approximately 60 [...] small cell lung cancer, status postconcurrent chemoradiation 2018. TECHNIQUE: Following IV injection of 63-mbmkni-2-deoxyglucose (FDG) astandard uptake of approximately 60 minutes, [...] patients who have questions please contactthe health customer care manager that requested your imaging first. Heber Phillips MD IMG PET ORDERABLES * (ABNORMAL) Request For 2nd Read CT Chest (04/21/2022 4:37 PM EDT) Anatomical Region Laterality Modality Chest SO Impressions 04/22/2022 9:48 AM EDT Stable posttreatment changes in the right upper lobe. New small indistinct nodularities in the inferior aspect of the left lower lobe are ultimately indeterminate, however, may be just infectious/inflammatory. Previously seen small consolidation the lingula has resolved. UNEXPECTED FINDING of slightly increased conspicuity of a small high pretracheal lymph node. Comparison to prior PET/CT is limited by differences in slice thickness, but the appearance is somewhat worrisome and attention on follow-up (suggest 3 months) is needed. Increased small pericardial effusion Thank you for letting us participate in the care of this patient. ??If you are a health care provider and have any questions regarding this report, please contact the number below. ??For patients who have questions please contact the health customer care manager that requested your imaging first. ? Narrative 04/22/2022 9:48 AM EDT EXAMINATION: REQUEST FOR 2ND READ CT CHEST CLINICAL HISTORY: Follow-up on the findings on the recent PET scan: Interval appearance of ill-defined mild to moderately FDG avid nodular; Sending Institution [facility]; Date of exam [id number]; I believe a reinterpretation of this exam may alter care of Patient. Yes TECHNIQUE: Outside contrast enhanced CT of the chest from 04/10/2022 COMPARISON: 01/12/2022 PET/CT FINDINGS: Pulmonary parenchyma: The 2.5 cm consolidative change in the lingula with adjacent nodularity seen on prior PET/CT has resolved. There is now only minimal residual linear atelectasis or scarring (series 4 image 487). Post treatment changes in the right upper lobe with fibrosis, airless lung, and bronchiectases are stable. Underlying diffuse centrilobular emphysema as before. Three stable sub-6 mm pulmonary nodules in the right lower lobe (series 4 image 356, 362, 377). Multiple new indistinct sub-6 mm nodularities at the left base (series 4, image 536, 549, 567). Airways: Central and segmental airways are stable including distortions and narrowing at the right hilum and right upper lobe posttreatment traction bronchiectasis. Pleura: No effusion. Lymph nodes: Of note is a 10 x 12 mm enhancing pretracheal lymph node (series 3 image 102). This is slightly more conspicuous than on 01/12/2022. Heart and vasculature: Normal size of the heart. Increased small pericardial effusion. Severe coronary artery atherosclerotic calcification. Right-sided port catheter ends at the superior cavoatrial junction. Lower neck: Stable small lesion in the left thyroid lobe. Limited upper abdomen: Multiple subcentimeter hypodense liver lesions. Multiple subcentimeter hypodense lesions in both kidneys. All compatible with cysts. Partially imaged abdominal aortic soft plaque with ulcerations, calcified atherosclerotic plaque including the origins of both renal arteries, and aneurysmal dilatation. Skeleton: Stable mild cortical thickening and irregularity along the right first through fourth rib. Resulting Agency Comment Unexpected Finding Heber Phillips MD IMG OUTSIDE INTERPRE TATION ORDERABLES documented in this encounter Visit Diagnoses Diagnosis Small cell lung cancer, right upper lobe- Primary Iron deficiency anemia, unspecified iron deficiency anemia type SOB (shortness of breath) Shortness of breath Small cell lung cancer, right upper lobe Small cell lung cancer, right upper lobe documented in this encounter Care Teams Psychological Assistant Relationship Specialty Start Date End Date None None PCP - General 01/12/22 11/02/22 documented as of this encounter
--- OUTSIDE RECORDS SUMMARY | 2024-01-05 02:42 | XMS_ITS | Encounter Summary ---
Author Organization [facility] Address [facility] [place] [address] Care Team Providers Care Environmental Change Analyst Name Role Phone Nataliya Messina MD Primary Care Provider [phone] Reason for Visit * Reason Onset Date Comments Medication Refill 04/30/2021 Encounter Details Date Type Department Care Team (Late st Contact Info) Description 04/30/2021 Refill Cardiology at [address] [phone] Ramandeep Choudhary MD [facility] [place] [address] Medication Refill Social History Tobacco Use Types Packs/Day Years [...] AM EDT Appointment Hematology [place] [phone] 01/21/2024 10:[address] [place] [phone] Heber Phillips MD [facility] DR HEMATOLOGY/[place] [address] 03/28/2024 10:00 AM EDT Office Visit Hematology/Oncology at [address] [phone] Heber Phillips MD [facility] DR HEMATOLOGY/[place] [address] Isabella Baker APRN [facility] [place] [address] documented as of this encounter Visit Diagnoses Diagnosis Coronary artery disease involving port graham heart without angina pectoris, unspecified vessel or lesion type documented in this encounter Care Teams Environmental Change Analyst Relationship Specialty Start Date End Date Nataliya Messina MD [address] [place] [address] [address] [place], [place] [address] PCP - General 10/02/11 01/11/22 documented as of this encounter
--- OUTSIDE RECORDS SUMMARY | 2024-01-05 02:42 | XMS_ITS | Encounter Summary ---
[place] [address] Care Team Providers Care Direct Mail Manager Name Role Phone Nataliya Messina MD Primary Care Provider Encounter Details Date Type Department Care Team (Latest Contact Info) Description 07/08/2021 8:45 AM EST Laboratory Appointment Lab [address] [place] [address] Iron deficiency anemia, unspecified iron deficiency anemia type; Small cell lung cancer; Small cell lung [...] AM EDT Appointment Hematology [place] [phone] 01/21/2024 10:[address] [place] [address] Heber Phillips MD [facility] DR HEMATOLOGY/[place] [address] 03/28/2024 10:00 AM EDT Office Visit Hematology/Oncology at [address] [phone] Heber Phillips MD [facility] DR HEMATOLOGY/[place] [address] Isabella Baker APRN [facility] [place] [address] documented as of this encounter Procedures Procedure Name Priority Date/Time Associated Diagnosis Comments HEMOGRAM Routine 07/08/2021 8:53 AM EST Small cell lung cancer Small cell lung cancer, right upper lobe DIFFERENTIAL, AUTOMATED Routine 07/08/2021 8:53 AM EST Small cell lung cancer Small cell lung cancer, right upper lobe HC CBC,PLT & AUTO DIFF Routine 8:53 AM EST Small cell lung cancer Small cell lung cancer, right upper lobe HC VENIPUNCTURE Routine 07/08/2021 8:53 AM EST Iron deficiency anemia, unspecified iron deficiency anemia type Small cell lung cancer Small cell lung cancer, right upper lobe COMPREHENSIVE METABOLIC PANEL (NON-FASTING) Routine 07/08/2021 8:53 AM EST Small cell lung cancer Small cell lung cancer, right upper lobe documented in this encounter Results * (ABNORMAL) Differential, Automated (07/08/2021 8:53 AM EST) Neutrophils % 78.6 % [facility] Neutr Abs (ANC) 6.47(H) 1.70 - 6.10 x10(3)/mc L [facility] Lymphocytes % 5.6 % [facility] Lymphocytes Abs 0.5(L) 0.9 - 3.2 x10(3)/mc L [facility] Monocytes % 12.9 % [facility] Monocyte Abs 1.1(H) 0.3 - 0.9 x10(3)/[facility] Eosinophils % 1.1 % [facility] Eosinophils Abs 0.1 0.0 - 0.4 x10(3)/[facility] Basophils % 0.6 % [facility] Basophils Abs 0.0 0.0 - 0.1 x10(3)/[facility] Immature Gran % 1.20 % [facility] Comment: Immature granulocytes(IG's)percentage and absolute count will include metamyelocytes, myelocytes, and promyelocytes. Blood smears from CBCs yielding IG's will be scanned manually for concordance. If this scan disagrees with the automated IG or if promyelocytes are noted, a manual differential will be performed. Suri Gran Abs 0.10(H) 0.00 - 0.04 x10(3)/[facility] Blood 07/08/2021 8:53 AM EST 07/08/2021 9:02 AM EST Narrative Resulting Agency Comment Spec In Lab Heber Phillips MD HEMATOLOGY ORDERABLE S [facility] [place] [address] * (ABNORMAL) Hemogram (07/08/2021 8:53 AM EST) WBC 8.2 4.0 - 9.5 x10(3)/[facility] RBC 4.57(L) 4.58 - 5.54 x10(6)/[facility] Hemoglobin 13.0(L) 13.7 - 16.5 g/dL [facility] Hematocrit 38.8(L) 40.5 - 48.5 % [facility] MCV 84.9 82.9 - 93.1 fL [facility] MCH 28.4 27.5 - 32.1 pg [facility] MCHC 33.5 32.0 - 35.7 g/dL [facility] Platelets 332 145 - 357 x10(3)/[facility] RDWSD 56.0(H) 36.0 - 45.0 fL [facility] RDWCV 18.0(H) 11.4 - 13.8 % [facility] MPV 8.8 7.6 - 12.9 fL [facility] nRBC % Auto 0.0 % [facility] nRBC Abs Auto 0.000 0.000 - 0.000 x10(3)/[facility] Blood 07/08/2021 8:53 AM EST 07/08/2021 9:02 AM EST Narrative Resulting Agency Comment Spec In Lab Heber Phillips MD HEMATOLOGY ORDERABLE S Performing Organization Address City/State/[facility] Co de Phone Number [facility] [place] [address] * (ABNORMAL) Comprehensive metabolic panel (non-fasting) (07/08/2021 8:53 AM EST) Glucose Lvl 112 65 - 199 mg/dL [facility] Comment:Diabetes: >=200 mg/d L plus symptoms BUN 20 10 - 20 mg/dL [facility] Creatinine 0.93 0.80 - 1.50 mg/dL [facility] Sodium 133(L) 135 - 145 mmol/L [facility] Potassium 4.3 3.5 - 5.0 mmol/L [facility] Comment: Please note: ??Patients with WBC >100,000 may have falsely elevated Potassium levels. ??For accurate Potassium quantification in these patients send serum separator tube (gold top) for subsequent determinations. ??Contact the Clinical Chemistry Laboratory if there are any questions. Chloride 96(L) 98 - 107 mmol/L [facility] CO2 22 22 - 31 mmol/L [facility] Anion Gap 15 5 - 15 mmol/L [facility] Calcium 9.7 8.5 - 10.5 mg/dL [facility] Total Protein 6.9 6.1 - 8.0 g/dL [facility] Albumin 4.5 3.2 - 5.2 g/dL [facility] AST 18 0 - 39 unit/L [facility] ALT 26 0 - 55 unit/L [facility] Alk Phos 100 40 - 130 unit/L [facility] Total Bilirubin 0.5 0.2 - 1.3 mg/dL [facility] Estimated GFR 85 >=60 mL/min/1. 73 m?? [facility] Comment: This patient? s estimated glomerular filtration rate (eGFR) is between 85 mL/min/1.73 m2 (patients with less muscle mass per kg body weight) and 99 mL/min/1.73 m2 (patients with more muscle mass per kg body weight) as determined by the CKD-EPI equation. Assessment of eGFR is not appropriate when creatinine concentrations are rapidly changing. For clinical decisions where creatinine clearance will affect therapy, a 24-hour urine creatinine clearance may be advised. Assignment of CKD stage 1 - 5 for patients with an eGFR near the transition point between stages may be based on clinical assessment of muscle mass and symptoms in addition to eGFR. Blood 07/08/2021 8:53 AM EST 07/08/2021 9:02 AM EST Narrative Resulting Agency Comment Spec In Lab Heber Phillips MD CHEMISTRY ORDERABLES [facility] [place] [address] * Ferritin (07/08/2021 8:53 AM EST) Ferritin 126 30 - 400 ng/mL [facility] Comment: Pediatric reference ranges not verified at [facility], interpret with caution. Reference ranges for females greater than 50 years of age approach values for men, i.e., 30-400 ng/mL. Blood 07/08/2021 8:53 AM EST 07/08/2021 9:02 AM EST Narrative Resulting Agency Comment Spec In Lab Heber Phillips MD CHEMISTRY ORDERABLES [facility] [place] [address] documented in this encounter Visit Diagnoses Diagnosis Iron deficiency anemia, unspecified iron deficiency anemia type Small cell lung cancer Malignant neoplasm of bronchus and lung, unspecified site Small cell lung cancer, right upper lobe documented in this encounter Care Teams Direct Mail Manager Relationship Specialty Start Date End Date Nataliya Messina MD [address] [place] [address] PCP - General 10/02/11 01/11/22 documented as of this encounter
--- OUTSIDE RECORDS SUMMARY | 2024-01-05 02:42 | XMS_ITS | Encounter Summary ---
Author Organization [facility] [place] [address] Care Team Providers Care Geomagnetist Name Role Phone None Primary Care Provider Unavailabl e Encounter Details Date Type Department Care Team (Late st Contact Info) Description 04/10/2022 Ancillary Procedure [place] [phone] Porter Xiong MD [facility] [place] [address] Social History Tobacco Use Types Packs/Day Years [...] EDT Appointment Hematology [place] [phone] 01/21/2024 10:[address] [place] [address] Heber Phillips MD [facility] DR HEMATOLOGY/[place] [address] 03/28/2024 10:00 AM EDT Office Visit Hematology/Oncology at [address] [phone] Heber Phillips MD [facility] DR HEMATOLOGY/[place] [address] Isabella Baker APRN [facility] [place] [address] documented as of this encounter Procedures Procedure Name Priority Date/Time Associated Diagnosis Comments FILM LIBRARY STORAGE ONLY CT CHEST Routine 04/10/2022 12:00 AM EDT documented in this encounter Results * Film Library- Storage Only CT Chest (04/10/2022 12:00 AM EDT) Narrative CHUY - 04/11/2022 8:03 AM EDT This exam is auto-finalizing. It's purpose is for storage only. Porter Xiong MD IMG FILM LIBRARY ORD ERABLES [place], [place] documented in this encounter Visit Diagnoses Not on filedocumented in this encounter Care Teams Geomagnetist Relationship Specialty Start Date End Date None None PCP - General 01/12/22 11/02/22 documented as of this encounter
--- OUTSIDE RECORDS SUMMARY | 2024-01-05 02:42 | XMS_ITS | Encounter Summary ---
Author Organization [facility] [place] [address] Care Team Providers Care Logistics Assistant Name Role Phone None Primary Care Provider Unavailabl e Encounter Details Date Type Department Care Team (Latest Contact Info) Description 04/21/2022 4:55 PM EDT Ancillary Procedure [place] [phone] Heber Phillips MD [facility] HEMATOLOGY/[place] [address] Small cell lung cancer, right upper lobe [...] AM EDT Appointment [place] [phone] 01/21/2024 10:[address] [place] [place] [phone] Heber Phillips MD [facility] HEMATOLOGY/ONCOLOGY [place], [place] [phone] 03/28/2024 10:00 AM EDT Office Visit Hematology/Oncology at [address] [phone] Heber Phillips MD [facility] DR HEMATOLOGY/[place] [address] Isabella Baker APRN [facility] [place] [address] documented as of this encounter Procedures Procedure Name Priority Date/Time Associated Diagnosis Comments REQUEST FOR 2ND READ CT CHEST Routine 04/21/2022 4:37 PM EDT Small cell lung cancer, right upper lobe documented in this encounter Results * (ABNORMAL) Request For 2nd Read CT [...] who have questions please contact the health child care leader that requested your imaging first. ? Narrative 04/22/2022 9:48 AM EDT EXAMINATION: REQUEST FOR 2ND READ CT CHEST CLINICAL HISTORY: Follow-up on the findings on the recent PET scan: Interval appearance of ill-defined mild to moderately FDG avid nodular; Sending Institution [facility]; Date of exam [id number]; I believe a [...] lobe documented in this encounter Care Teams Logistics Assistant Relationship Specialty Start Date End Date None None PCP - General 01/12/22 11/02/22 documented as of this encounter
--- OUTSIDE RECORDS SUMMARY | 2024-01-05 02:42 | XMS_ITS | Encounter Summary ---
Author Organization Formerly [facility], [facility] Address [facility] [place] [address] Care Team Providers Care Air And Hydronic Balancing Technician Name Role Phone None Primary Care Provider Unavailabl e Reason for Referral * Diagnostic Test (Routine) - Closed Specialty Diagnoses / Procedures Referred By Contac t Referred To Contact Radiology Diagnoses Small cell lung cancer, right upper lobe Procedures NM PET CT Skull Base to Mid-thigh Heber Phillips MD [facility] HEMATOLOGY/[place] [address] [place] [address] Referral ID Status Reason Start Date Expiration Date V isits Requested Visits Authorized [id number] Closed Specialty Service Requested 10/13/2022 04/14/2024 1 1 Encounter Details Date Type Department Care Team (Late st Contact Info) Description 10/13/2022 2:30 PM EDT Office Visit Hematology/Oncology at [address] [phone] Heber Phillips MD [facility] HEMATOLOGY/[place] [address] Mary Cleaning RN Small cell lung cancer, right upper lobe; Iron deficiency anemia, unspecified iron deficiency anemia [...] Sign Reading Time Taken Comments Blood Pressure 149/70 10/13/2022 2:40 PM EDT Pulse 85 10/13/2022 2:40 PM EDT Temperature 36.6 ??C (97.9 ??F) 10/13/2022 2:40 PM ED T Respiratory Rate 22 10/13/2022 2:40 PM EDT Oxygen Saturation 93% 10/13/2022 2:40 PM EDT Inhaled Oxygen Concentration - - Weight 75.3 kg (166 lb) 10/13/2022 2:40 PM EDT Height - - Body Mass Index 25.99 04/21/2022 2:26 PM EDT documented in this encounter Progress Notes * Heber Phillips MD - 10/13/2022 2:30 PM EDT Images from the original note were not included. Diagnosis: High-grade neuroendocrine cancer of right lung, limited stage, clinical: stage IIIA (cT3, cN1, cM0) Subjective:I call it heavy air HPI:Hieu Tillman is 67 y.o. M referred by Dr. Ortiz for [...] referred for consideration of definitive chemoradiation. Subjective (10/13/21): Mr. Tillman returns to the [facility] for follow up of small cell lung cancer, anemia and discussion on restaging PET scan. Complains on shortness of breath with minimal exertion. Otherwise, he feels at his baseline. Denies any new pain. .Follows with local maths tutor. Denies any pain. No fevers or chills. Denies any issues with his bowels. No constipation, diarrheaor blood in stool. PMH: No interval changes since last visit Admitted 05/16/2021 for COPD exacerbation Colonoscopy and upper endoscopy on February 21, 2021 [place] in 2014 status post 2 stents placement, [...] radiating to right leg ??? Myocardial infarction [place] about 6 years ago @ [facility]-has stents ??? 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 If you have any questions, ask your nurse or doctor. Continued medications with new dosing Dose Details metoproloL tartrate 25 mg tablet Commonly known as: Lopressor Take 1 tablet by mouth 2 times daily. What changed: ?? how much to take ?? when to take this 25 mg Quantity: [...] Day 2-5:Take one tablet daily Refills: 0 clopidogreL 75 mg tablet Commonly known as: Plavix Take 1 tablet by mouth daily. 75 mg Quantity: 90 tablet Refills: 3 Combivent Respimat 20-100 mcg/actuation Mist INHALE 1 PUFF BY MOUTH FOUR TIMES A DAY NEEDED FOR COPD Generic drug: ipratropium-albuteroL Refills: 0 FIBER CHOICE ORAL Take 1 tablet by mouth daily. 1 tablet Refills: 0 fluticasone furoate-vilanteroL 100-25 mcg/dose Disk with Device Commonly known as: Breo Ellipta Inhale 1 puff into the lungs daily. 1 puff Refills: 0 hydroCHLOROthiazide 25 mg tablet Commonly known as: Hydrodiuril Take 25 mg by mouth every other day. 25 mg Refills: 0 lisinopriL 20 mg tablet Commonly [...] Refills: 0 Spiriva with HandiHaler 18 mcg capsule with inhalation device Inhale 18 mcg into the lungs daily. 2 puffs QD Generic drug: tiotropium 18 mcg Refills: 0 Wt Readings from Last 3 Encounters: 10/13/22 75.3 kg (166 lb) 04/21/22 76.7 kg (169 lb) 01/22/22 77.7 kg (171 lb 6.4 oz) Review of Systems: Constitutional: [...] Neurological: Negative. Hematological: Negative for adenopathy. Pulse 85 Temp 36.6 ??C (97.9 ??F) (Temporal) Resp 22 Wt 75.3 kg (166 lb) SpO2 93% BMI 25.99 kg/m?? Wt Readings from Last 3 Encounters: 10/13/22 75.3 kg (166 lb) 04/21/22 76.7 kg (169 lb) 01/22/22 77.7 kg (171 lb 6.4 oz) Physical Exam Constitutional: He [...] normal. Judgment and thought content normal. Labs: 10/13/22 WBC 9.69, hemoglobin 13, platelet count [...] count 425, ANC 5.42 09/17/20- WBC-9.21 Hgb/Hct-11.9/36.1 Arh870 ANC-6.94 03/05/2020 WBC 8.23, hemoglobin 14.6, platelet count 387, ANC 6.5, sodium 131, potassium 3.9, BUN 12, creatinine 1.01, calcium 9.3, TB 0.3, AST 26, ALT 38, alkaline phosphatase 112, total protein 7.5. 10/24/19 WBC 8.18, hemoglobin 13.3, platelet count 464, ANC 5.99 sodium 127, BUN 17, creatinine 1.13, calcium 8.9, AST 22, ALT 38, alkaline phosphatase 129, total protein 7.6, albumin 3.8. Imagin09/28/[address]: IMPRESSION 1. No evidence of tumor recurrence or metastasis. 2. Interval appearance of small mildly FDG avid ill-defined opacities in the left lung base, consistent with an interval inflammatory process. ?? 04/10/2020 CT chest with contrast: Impression: Compared [...] including history of stroke, severe peripheralvascular disease, [place] status post stent placement and COPD. His [...] blood work, PET scan and Monoferric infusion #Anemia: Ferritin is 42, hemoglobin 13, improved so he is still [...] PCP. He may need to see a maths tutor again. Plan: 1. Monoferric 1 g today 2. Next visit in 1 year with CBC, CMP, ferritin, PET scan and Monoferric infusion The plan was discussed with the patient in details. All questions were answered to patient's satisfaction. documented in this encounter Plan of Treatment Upcoming Encounters Date Type Department Care Team (Late st Contact Info) Description 01/10/2024 7:45 AM EDT Appointment Hematology [place] [address] 01/21/2024 10:[address] [place] [address] Heber Phillips MD [facility] DR HEMATOLOGY/[place] [address] 03/28/2024 10:00 AM EDT Office Visit Hematology/Oncology at [address] [phone] Heber Phillips MD [facility] DR HEMATOLOGY/[place] [address] Isabella Baker APRN [facility] [place] [address] documented as of this encounter Results * NM PET CT Skull Base to Mid-thigh (10/11/2023 11:20 AM EDT) [employer] WORKSTATION ID [id number] RAD Anatomical Region Laterality Modality Positron Emissio [...] who have questions please contact the health care director that requested your imaging first. ? Narrative 10/12/2023 9:31 AM EDT EXAMINATION: NM PET CT STANDARD SKULL BASE TO MID-THIGH CLINICAL HISTORY: Small cell lung cancer, assess treatment response Restaging of small cell carcinoma of lung completed concurrent chemoradiation 2018 C34.11, Malignant neoplasm of upper lobe, right bronchus or lung TECHNIQUE: Following IV injection of 32-dgjuwf-2-deoxyglucose (FDG) a standard uptake of approximately 60 [...] or lung TECHNIQUE: Following IV injection of 20-jihopx-6-deoxyglucose (FDG) astandard uptake of approximately 60 minutes, [...] patients who have questions please contactthe health care director that requested your imaging first. Heber Phillips MD IMG PET ORDERABLES * Ferritin (10/11/2023 11:19 AM EDT) [facility] Ferritin 31 31 - 409 ng/mL [facility] Comment: Please note that as of 05/26/2023, the reference intervals for Ferritin have been updated. Blood 10/11/2023 11:1 9 AM EDT 10/11/2023 11:25 AM EDT Narrative Resulting Agency Comment Spec In Lab Heber Phillips MD CHEMISTRY ORDERABLES [facility] [place] [address] * (ABNORMAL) Comprehensive metabolic panel (non-fasting) (10/11/2023 11:19 AM EDT) Glucose Lvl 107 65 - 199 mg/dL [facility] Comment:Diabetes: >=200 mg/d L plus symptoms BUN 24(H) 10 - 20 mg/dL [facility] Creatinine 1.17 0.80 - 1.50 mg/dL [facility] Sodium 139 135 - 145 mmol/L [facility] Potassium 4.8 3.5 - 5.0 mmol/L [facility] Comment: Please note: ??Patients with WBC >100,000 may have falsely elevated Potassium levels. ??For accurate Potassium quantification in these patients send serum separator tube (gold top) for subsequent determinations. ??Contact the Clinical Chemistry Laboratory if there are any questions. Chloride 104 98 - 107 mmol/L [facility] CO2 28 22 - 31 mmol/L [facility] Anion Gap 7 5 - 15 mmol/L [facility] Calcium 9.5 8.5 - 10.5 mg/dL [facility] Total Protein 7.3 6.1 - 8.0 g/dL [facility] Albumin 4.3 3.2 - 5.2 g/dL [facility] AST 19 0 - 39 unit/L [facility] ALT 19 0 - 55 unit/L [facility] Alk Phos 92 40 - 130 unit/L [facility] Total Bilirubin 0.3 0.2 - 1.3 mg/dL [facility] Estimated GFR 67 >=60 mL/min/1. 73 m?? [facility] Comment: This patient's estimated [...] In Lab Heber Phillips [place] [address] documented in this encounter Visit Diagnoses Diagnosis Small cell lung cancer, right upper lobe Iron deficiency anemia, unspecified iron deficiency anemia type Small cell lung cancer, right upper lobe documented in this encounter Care Teams Air And Hydronic Balancing Technician Relationship Specialty Start Date End Date None None PCP - General 01/12/22 11/02/22 documented as of this encounter
--- OUTSIDE RECORDS SUMMARY | 2024-01-05 02:42 | XMS_ITS | Encounter Summary ---
Author Organization [facility] [place] [address] Care Team Providers Care Manager Functional Name Role Phone Nataliya Messina MD Primary Care Provider Encounter Details Date Type Department Care Team (Late st Contact Info) Description 05/16/2021 Ancillary Procedure [place] [phone] Adjovu, Sayra, DITCHER [address] [place], [place] [address] Social History Tobacco Use Types Packs/Day Years [...] AM EDT Appointment Hematology [place] [phone] 01/21/2024 10:[address] [place] [phone] Heber Phillips MD [facility] HEMATOLOGY/[place] [address] 03/28/2024 10:00 AM EDT Office Visit Hematology/Oncology at [address] [phone] Heber Phillips MD [facility] DR HEMATOLOGY/[place] [address] Isabella Baker APRN [facility] [place] [address] documented as of this encounter Procedures Procedure Name Priority Date/Time Associated Diagnosis Comments FILM LIBRARY STORAGE ONLY DX CHEST Routine 05/16/2021 12:00 AM EST documented in this encounter Results * Film Library- Storage Only DX Chest (05/16/2021 12:00 AM EST) Narrative [facility] - 07/20/2023 3:51 AM EST This exam is auto-finalizing. It's purpose is for storage only. Sayra Adjovu DITCHER IMG FILM LIBRARY OR DERABLES [place], [place] documented in this encounter Visit Diagnoses Not on filedocumented in this encounter Care Teams Manager Functional Relationship Specialty Start Date End Date Nataliya Messina MD [facility] [address] [place] [address] PCP - General 10/02/11 01/11/22 documented as of this encounter
--- OUTSIDE RECORDS SUMMARY | 2024-01-05 02:42 | XMS_ITS | Encounter Summary ---
Author Organization [facility] Address [facility] [place] [address] Care Team Providers Care Pharmacy Informatics Specialist Name Role Phone None Primary Care Provider Unavailabl e Encounter Details Date Type Department Care Team (Late st Contact Info) Description 10/16/2022 External Results Non-[place] [phone] None None Social History Tobacco Use Types Packs/Day Years [...] AM EDT Appointment Hematology [place] [address] 01/21/2024 10:[address] [place] [address] Heber Phillips MD [facility] HEMATOLOGY/[place] [address] 03/28/2024 10:00 AM EDT Office Visit Hematology/Oncology at [address] [phone] Heber Phillips MD [facility] DR HEMATOLOGY/[place] [address] Isabella Baker APRN [facility] [place] [address] documented as of this encounter Procedures Procedure Name Priority Date/Time Associated Diagnosis Comments DIAGNOSTIC RADIOLOGY SCAN Routine 04/10/2022 DIAGNOSTIC RADIOLOGY SCAN Routine 05/16/2021 documented in this encounter Results * Scan Doc: Diagnostic Radiology (04/10/2022) Anatomical Region Laterality Modality Other None MEDIA MGR SCAN EXT O RDR/RSLT * Scan Doc: Diagnostic Radiology (05/16/2021) Anatomical Region Laterality Modality Other None MEDIA MGR SCAN EXT O RDR/RSLT documented in this encounter Visit Diagnoses Not on filedocumented in this encounter Care Teams Pharmacy Informatics Specialist Relationship Specialty Start Date End Date None None PCP - General 01/12/22 11/02/22 documented as of this encounter
--- OUTSIDE RECORDS SUMMARY | 2024-01-05 02:42 | XMS_ITS | Encounter Summary ---
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, unspecified vessel or [...] AM EDT Appointment Hematology [place] [address] 01/21/2024 10:[address] [place] [phone] Heber Phillips MD [facility] DR HEMATOLOGY/[place] [address] 03/28/2024 10:00 AM EDT Office Visit Hematology/Oncology at [address] [phone] Heber Phillips MD [facility] DR HEMATOLOGY/[place] [address] Isabella Baker APRN [facility] [place] [address] documented as of this encounter Procedures Procedure Name Priority Date/Time Associated Diagnosis Comments HEMOGRAM Routine 01/12/2022 10:53 AM EDT Small cell lung cancer DIFFERENTIAL, AUTOMATED Routine 01/12/2022 10:53 AM EDT Small cell lung cancer HC VENIPUNCTURE Routine 01/12/2022 10:53 AM EDT Small cell lung cancer HC FERRITIN, SERUM Routine 01/12/2022 10 :53 AM EDT Iron deficiency anemia, unspecified iron deficiency anemia type COMPREHENSIVE METABOLIC PANEL (NON-FASTING) Routine 01/12/2022 10:53 AM EDT Small cell lung cancer documented in this encounter Results * (ABNORMAL) Differential, Automated (01/12/2022 10:53 AM EDT) Neutrophils % 75.7 % [facility] Neutr Abs (ANC) 4.34 1.70 - 6.10 x10(3)/mc L [facility] Lymphocytes % 7.0 % [facility] Lymphocytes Abs 0.4(L) 0.9 - 3.2 x10(3)/mc L [facility] Monocytes % 13.9 % [facility] Monocyte Abs 0.8 0.3 - 0.9 x10(3)/mc L [facility] Eosinophils % 1.9 % [facility] Eosinophils Abs 0.1 0.0 - 0.4 x10(3)/mc L [facility] Basophils % 1.0 % [facility] Basophils Abs 0.1 0.0 - 0.1 x10(3)/[facility] Immature Gran % 0.50 % [facility] Comment: Immature granulocytes(IG's)percentage and absolute count will include metamyelocytes, myelocytes, and promyelocytes. Blood smears from CBCs yielding IG's will be scanned manually for concordance. If this scan disagrees with the automated IG or if promyelocytes are noted, a manual differential will be performed. Suri Gran Abs 0.03 0.00 - 0.04 x10(3)/[facility] Blood 01/12/2022 10:5 3 AM EDT 01/12/2022 11:11 AM EDT Narrative Resulting Agency Comment Spec In Lab Heber Phillips MD HEMATOLOGY ORDERABLE S [facility] [place] [address] * (ABNORMAL) Hemogram (01/12/2022 10:53 AM EDT) WBC 5.7 4.0 - 9.5 x10(3)/[facility] RBC 4.04(L) 4.58 - 5.54 x10(6)/[facility] Hemoglobin 10.1(L) 13.7 - 16.5 g/dL [facility] Hematocrit 32.0(L) 40.5 - 48.5 % [facility] MCV 79.2(L) 82.9 - 93.1 fL [facility] MCH 25.0(L) 27.5 - 32.1 pg [facility] MCHC 31.6(L) 32.0 - 35.7 g/dL [facility] Platelets 398(H) 145 - 357 x10(3)/[facility] RDWSD 41.9 36.0 - 45.0 fL [facility] RDWCV 14.5(H) 11.4 - 13.8 % [facility] MPV 9.0 7.6 - 12.9 fL [facility] nRBC % Auto 0.0 % [facility] nRBC Abs Auto 0.000 0.000 - 0.000 x10(3)/mcL [facility] Blood 01/12/2022 10:5 3 AM EDT 01/12/2022 11:11 AM EDT Narrative Resulting Agency Comment Spec In Lab Heber Phillips MD HEMATOLOGY ORDERABLE S Performing Organization Address City/[facility]/ZIP Co de Phone Number [facility] [place] [address] * (ABNORMAL) Ferritin (01/12/2022 10:53 AM EDT) [facility] Ferritin 26(L) 30 - 400 ng/mL [facility] Comment: Pediatric reference ranges not verified at [facility], interpret with caution. Reference ranges for females greater than 50 years of age approach values for men, i.e., 30-400 ng/mL. Blood 01/12/2022 10:5 3 AM EDT 01/12/2022 11:11 AM EDT Narrative Resulting Agency Comment Spec In Lab Heber Phillips MD CHEMISTRY ORDERABLES Performing Organization Address City/[facility]/ZIP Co de Phone Number [facility] [place] [address] * Comprehensive metabolic panel (non-fasting) (01/12/2022 10:53 AM EDT) [facility] Glucose Lvl 105 65 - 199 mg/dL [facility] Comment:Diabetes: >=200 mg/d L plus symptoms BUN 18 10 - 20 mg/dL [facility] Creatinine 1.18 0.80 - 1.50 mg/dL [facility] Sodium 139 135 - 145 mmol/L [facility] Potassium 4.4 3.5 - 5.0 mmol/L [facility] Comment: Please note: ??Patients with WBC >100,000 may have falsely elevated Potassium levels. ??For accurate Potassium quantification in these patients send serum separator tube (gold top) for subsequent determinations. ??Contact the Clinical Chemistry Laboratory if there are any questions. Chloride 101 98 - 107 mmol/L [facility] CO2 28 22 - 31 mmol/L [facility] Anion Gap 10 5 - 15 mmol/L [facility] Calcium 10.1 8.5 - 10.5 mg/dL [facility] Total Protein 7.2 6.1 - 8.0 g/dL [facility] Albumin 4.7 3.2 - 5.2 g/dL [facility] AST 17 0 - 39 unit/L [facility] ALT 14 0 - 55 unit/L [facility] Alk Phos 99 40 - 130 unit/L [facility] Total Bilirubin 0.4 0.2 - 1.3 mg/dL [facility] Estimated GFR 68 >=60 mL/min/1. 73 m?? [facility] Comment: This patient's estimated GFR [...] In Lab Heber Phillips [place] [address] documented in this encounter Visit Diagnoses Diagnosis Small cell lung cancer Malignant neoplasm of bronchus and lung, unspecified site Iron deficiency anemia, unspecified iron deficiency anemia type documented in this encounter Care Teams Research Professor Relationship Specialty Start Date End Date None None PCP - General 01/12/22 11/02/22 documented as of this encounter
--- OUTSIDE RECORDS SUMMARY | 2024-01-05 02:42 | XMS_ITS | Encounter Summary ---
Author Organization [facility] Address [facility] [place] [address] Care Team Providers Care Biology Adjunct Instructor Name Role Phone SusanSayra noel DEVANTE Primary Care Provider [phone] Encounter Details Date Type Department Care Team (Latest Contact Info) Description 11/03/2022 Travel Social History Tobacco Use Types Packs/Day [...] AM EDT Appointment Hematology [place] [address] 01/21/2024 10:[address] [place] [address] Heber Phillips MD [facility] [place] [address] 03/28/2024 10:00 AM EDT Office Visit Hematology/Oncology at [address] [phone] Heber Phillips MD [facility] HEMATOLOGY/[place] [address] Isabella Baker APRN [facility] [place] [address] documented as of this encounter Visit Diagnoses Not on filedocumented in this encounter Care Teams Biology Adjunct Instructor Relationship Specialty Start Date End Date Sayra Hawk APRN [address] [place] [address] [address] [place] [address] PCP - General Family Medicine 11/03/22 documented as of this encounter
--- OUTSIDE RECORDS SUMMARY | 2024-01-05 02:42 | XMS_ITS | Encounter Summary ---
Author Organization [facility] [place] [address] Care Team Providers Care Athletic Scout Name Role Phone Kenn Sayra LOW Primary Care Provider [phone] Reason for Referral * Diagnostic Test (Routine) - Closed Specialty Diagnoses / Procedures Referred By Contac t Referred To Contact Radiology Diagnoses Chest pain, unspecified type Procedures NM PET CT Cardiac Pharmacologic Stress CT Component Faustina Miller MD [facility] [place] [address] [place] [address] Referral ID Status Reason Start Date Expiration Date V isits Requested Visits Authorized [id number] Closed Specialty Service Requested 11/03/2022 05/02/2024 1 1 * Diagnostic Test (Routine) - Closed Specialty Diagnoses / Procedures Referred By Contac t Referred To Contact Radiology Diagnoses Chest pain, unspecified type Procedures NM PET CT Cardiac Pharmacologic Stress and Rest Faustina Miller MD [facility] [place] [address] [place] [address] Referral ID Status Reason Start Date Expiration Date V isits Requested Visits Authorized [id number] Closed Specialty Service Requested 11/03/2022 05/02/2024 1 1 * Diagnostic Test (Routine) - Closed Specialty Diagnoses / Procedures Referred By Keven lozano Referred To Contact Cardiology Diagnoses Chest pain, unspecified type Procedures Nuclear Pharmacologic Stress Cardiology (PET CT Mobile) Faustina Miller MD [facility] [place] [address] [facility] [place] [address] Referral ID Status Reason Start Date Expiration Date V isits Requested Visits Authorized [id number] Closed Specialty Service Requested 11/03/2022 11/03/2023 1 1 Reason for Visit * Consultation (Routine) - Closed Specialty Diagnoses / Procedures Referred By Keven lozano Referred To Contact Cardiology Diagnoses Coronary artery disease, unspecified vessel or lesion type, unspecified whether angina present, unspecified whether benton or transplanted heart CARD ONC CAD. Very overdue for f/up. 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 Sayra Hawk, ADJUNCT PROFESSOR OF ENGLISH [address] [place] [address] [facility] [address] [place] [phone] Referral ID Status Reason Start Date Expiration Date V isits Requested Visits Authorized [id number] Closed Consult, Test & Treat 10/16/2022 10/16/2023 1 1 Encounter Details Date Type Department Care Team (Late st Contact Info) Description 11/03/2022 11:00 AM EDT Office Visit Cardiology at [address] [address] Faustina Miller MD [facility] [place] [address] Chest pain, unspecified type; Coronary artery disease involving benton coronary artery of benton heart, unspecified whether angina present; PVD (peripheral vascular disease) Social History Tobacco [...] Sign Reading Time Taken Comments Blood Pressure 144/70 11/03/2022 10:49 AM EDT Pulse 70 11/03/2022 10:49 AM EDT Temperature - - Respiratory Rate - - Oxygen Saturation 96% 11/03/2022 10:49 AM EDT Inhaled Oxygen Concentration - - Weight 72.2 kg (159 lb 1.6 oz) 11/03/2022 10:49 AM EDT Height 167.6 cm (5' 6) 11/03/2022 10:49 AM EDT Body Mass Index 25.68 11/03/2022 10:49 AM EDT documented in this encounter Progress Notes * Faustina Miller MD - 11/03/2022 11:00 AM EDT Images from the original note were not included. [facility] [place] [address] CARDIOLOGY OUTPATIENT PROGRESS NOTE PRIMARY CARE PROVIDER: Sayra Hawk APRN REFERRING PROVIDER: Sayra Hawk PROBLEM LIST: Patient Active Problem List Diagnosis ??? Exertional dyspnea ??? Anemia, iron deficiency ??? Diverticulosis of colon without diverticulitis ??? History of alcoholism ??? Polyp of colon ??? Dehydration ??? Small cell lung cancer, right upper lobe ??? Mass of upper lobe of right lung 5 cm RUL mass ??? 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 History of left cataract extraction ??? CAD (coronary artery disease) CARDIAC CATHETERIZATION - Procedure: Coronary Angiography [...] Promus Premier) and PTCA of mid LCX ??? Chest pain ??? Hypertension ??? Hyperlipidemia ??? Chronic obstructive pulmonary disease ??? Stenosis of right carotid artery 10/20/2016: Right carotid endarterectomy ??? PVD (peripheral vascular disease) R JAYA stent 12/07/11 ??? Low back pain radiating to right leg MEDICATIONS: Current Outpatient Medications Medication Sig Dispense Refill ??? azithromycin (Zithromax) 250 mg tablet Take by mouth daily. Day1:take 2 tablets daily, Day 2-5:Take one tablet daily ??? nitroGLYcerin (Nitrostat) 0.4 mg Tablet, Sublingual Place 1 tablet under the tongue every 5 minutes as needed for Chest pain (maximum 3 per day). (Patient not taking: Reported on 07/15/2021) 25 tablet 12 ??? albuteroL (ACCUNEB) 1.25 mg/3 mL Solution for Nebulization Take 1 ampule by nebulization every 6 hours as needed for Wheezing. ??? acetaminophen (Tylenol) 325 mg Tablet Take by mouth. ??? Combivent Respimat 20-100 mcg/actuation Mist INHALE 1 PUFF BY MOUTH FOUR TIMES A DAY NEEDED FOR COPD ??? pantoprazole (PROTONIX) 40 mg Tablet, Delayed Release (E.C.) Take 40 mg by mouth daily. ??? magnesium chloride (MAG-DELAY ORAL) Take 1 tablet by mouth every other day. ??? tiotropium (Spiriva with HandiHaler) 18 mcg Capsule, w/Inhalation Device Inhale 18 mcg into thelungs daily. 2 puffs QD ??? lisinopril (PRINIVIL;ZESTRIL) 20 mg Tablet Take 1 tablet by mouth daily. 90 tablet 3 ??? meTOPROLOL tartrate (LOPRESSOR) 25 mg Tablet Take 1 tablet by mouth 2 times daily. (Patient taking differently: Take 50 mg by mouth daily.) 180 tablet 3 ??? fluticasone furoate-vilanteroL (Breo Ellipta) 100-25 mcg/dose Disk with Device Inhale 1 puff into the lungs daily. ??? atorvastatin (LIPITOR) 80 mg tablet Take 1 tablet by mouth daily. 30 tablet 2 ??? clopidogrel (PLAVIX) 75 mg tablet Take 1 tablet by mouth daily. 90 tablet 3 ??? hydrochlorothiazide (HYDRODIURIL) 25 mg tablet Take 25 mg by mouth every other day. ??? FIBER CHOICE ORAL Take 1 tablet by mouth daily. ??? aspirin 81 mg EC tablet Take 81 mg by mouth daily. No current facility-administered medications for this visit. Subjective: Patient ID: H[facility] Till[facility] 67 [facility] HPI: 67 yo M CAD, PCI to OM1, mid LCx in 2013, rCEA 2016, PAD, rCIA stenting 2011, HTN, HLD SCLC with concurrent chemoradiation with carboplatin and etoposide Newly Dx high-grade neuroendocrine carcinoma C/o worsening ESCAMILLA (having trouble walking to the mailbox that is 50 yard away from his front door) In wheelchair POCUS performed by myself: no pericardial effusion, grossly normal LV systolic function He had one episode of PND which required inhaler REVIEW OF SYSTEMS: Review of Systems Cardiovascular: Positive for chest pain and dyspnea on exertion. Respiratory: Positive for shortness of breath. No orthopnea No syncope No claudication Family History: Family History Problem Relation Age of Onset ??? Hypertension Father ??? Hyperlipidemia Father ??? Cerebrovascular Accident Father ??? Emphysema Mother ??? Macular Degeneration Neg Hx ??? Glaucoma Neg Hx ??? Diabetes Neg Hx ??? Cancer Neg Hx Social History: Social History Socioeconomic History ??? Marital status: Spouse name: Not on file ??? Number of children: 5 ??? Years of education: Not on file ??? Highest education level: Not on file Occupational History ??? 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 Smoking status: Former Packs/day: 2.00 Years: 47.00 Pack years: 94.00 Types: Cigarettes Quit date: 09/11/2013 Years since quittin.1 ??? Smokeless tobacco: Never Vaping Use ??? Vaping Use: Never used Substance and Sexual Activity ??? Alcohol use: Yes Alcohol/week: 2.0 standard drinks Types: 2 Cans of beer per week Comment: Sober 25 years the summer of 2016 ??? Drug use: No ??? Sexual activity: Not Currently Comment: deferred Other Topics Concern ??? Not on file Social History Narrative Lives with his in [place], [place]. Retired from [employer] where he did repairs for 40 years. Has 5 children and many grandchildren. Social Determinants of Health Financial Resource Strain: Not on file Food Insecurity: Not on file Transportation Needs: Not on file Physical Activity: Not on file Housing Stability: Not on file Objective: PHYSICAL EXAM: BP 144/70 (BP Location (NBP): Left arm, Patient Position: Sitting, BP Cuff Sizes: Adult (25-34 cm)) Pulse 70 Ht 167.6 cm (5' 6) Wt 72.2 kg (159 lb 1.6 oz) SpO2 96% BMI 25.68 kg/m?? , Body mass index is 25.68 kg/m??. General: Pleasant. No distress. Skin: Warm and dry. HEENT: Anicteric sclera. Neck: JVP not elevated. No AJR. No carotid bruits. Chest: Decreased BS bl Heart: No heave. Regularly regular rhythm. Normal S1 and S2. No gallops. No murmurs. Abdomen: Nondistended. Soft. Nontender. Extremities: No edema. BUSINESS AGENT: Normal mentation. Psych: Appropriate affect. Labs: Lab Results Component Value Date WBC 5.7 01/12/2022 WBC 8.2 07/08/2021 WBC 12.2 (H) 01/23/2019 HGB 10.1 (L) 01/12/2022 HGB 13.0 (L) 07/08/2021 HGB 13.8 01/23/2019 PLATELET 398 (H) 01/12/2022 PLATELET 332 07/08/2021 PLATELET 400 (H) 01/23/2019 NA 139 01/12/2022 NA 133 (L) 07/08/2021 NA 130 (L) 01/23/2019 K 4.4 01/12/2022 K 4.3 07/08/2021 K 4.3 01/23/2019 CL 101 01/12/2022 CL 96 (L) 07/08/2021 CL 91 (L) 01/23/2019 CO2 28 01/12/2022 CO2 22 07/08/2021 CO2 23 01/23/2019 BUN 18 01/12/2022 BUN 20 07/08/2021 BUN 18 01/23/2019 CREATININE 1.18 01/12/2022 CREATININE 0.93 07/08/2021 CREATININE 0.99 01/23/2019 CHLPL 127 10/19/2016 CHLPL 145 02/05/2016 CHLPL 132 07/10/2014 HDL 31 (L) 10/19/2016 HDL 36 02/05/2016 HDL 33 07/10/2014 CHOLHDL 4.1 10/19/2016 CHOLHDL 3.7 10/11/2013 CHOLHDL 3.5 09/12/2013 TRIG 166 10/19/2016 TRIG 129 02/05/2016 TRIG 145 07/10/2014 LDLCHOL 63 10/19/2016 LDLCHOL 90 02/05/2016 LDLCHOL 76 07/10/2014 Assessment: Hieu Tillman is a 67 y.o. patient of [facility] presenting with: cardio-oncology assessment CAD (coronary artery disease) PCI in 2013 Worsening ESCAMILLA and chest pressure. This could be multifactorial involving pulmonary and cardiac etiologies. Recommend cardiac PET to assess coronary ischemia, as this is important to facilitate further decision making in lung CA treatment. PVD (peripheral vascular disease) Vasculopathic involving JAYA, Carotid Stopped smoking several years ago Denies claudication, however, he is limited by ESCAMILLA Will continue DaPT and statin Plan: ??? Cardiac PET to assess myocardial ischemia given risk profile and ongoing symptoms ??? POCUS today showed preserved LVEF ??? Will check official echo ??? Follow up with Dr. Dia in 3 months Thank you for the opportunity to participate in this patient's cardiovascular care. All questions were answered and I look forward to the next visit. Faustina Miller MD documented in this encounter Miscellaneous Notes * Assessment & Plan Note - Faustina Miller MD - 11/03/2022 4:00 PM EDT Associated Problem(s): PVD (peripheral vascular disease) Vasculopathic involving JAYA, Carotid Stopped smoking several years ago Denies claudication, however, he is limited by ESCAMILLA Will continue DaPT and statin * Assessment & Plan Note - Faustina Miller MD - 11/03/2022 3:57 PM EDT Associated Problem(s): ASCVD (arteriosclerotic cardiovascular disease) PCI in 2014 Worsening ESCAMILLA and chest pressure. This could be multifactorial involving pulmonary and cardiac etiologies. Recommend cardiac PET to assess coronary ischemia, as this is important to facilitate further decision making in lung CA treatment. documented in this encounter Plan of Treatment Upcoming Encounters Date Type Department Care Team (Late st Contact Info) Description 01/10/2024 7:45 AM EDT Appointment Hematology [place] [address] 01/21/2024 10:[address] [place] [address] Heber Phillips MD [facility] DR HEMATOLOGY/[place] [address] 03/28/2024 10:00 AM EDT Office Visit Hematology/Oncology at [address] [phone] Heber Phillips MD [facility] DR HEMATOLOGY/[place] [address] Isabella Baker APRN [facility] [place] [address] documented as of this encounter Results * Nuclear Pharmacologic Stress Cardiology (PET CT Mobile) (12/08/2022 12:15 PM EDT) Anatomical Region Laterality Modality Other Faustina Miller MD CARDIAC SERVICES ORD ERABLES * NM PET CT Cardiac Pharmacologic Stress [...] who have questions please contact the health acute care nurse practitioner that requested your imaging first. ? Narrative 12/08/2022 4:21 PM EDT EXAMINATION: NM [...] Note Vamsi Perez MD - 12/08/2022 EXAMINATION: GA PET CT CARDIAC PHARMACOLOGIC STRESS AND REST, GA PET CTCARDIAC PHARMACOLOGIC STRESS CT COMPONENT CLINICAL [...] patients who have questions please contactthe health acute care nurse practitioner that requested your imaging first. Faustina Miller MD IMG PET ORDERABLES * [...] who have questions please contact the health acute care nurse practitioner that requested your imaging first. ? Narrative 12/08/2022 4:21 PM EDT EXAMINATION: GA PET CT CARDIAC PHARMACOLOGIC STRESS AND REST, GA PET CT CARDIAC PHARMACOLOGIC STRESS CT COMPONENT [...] Note Vamsi Perez MD - 12/08/2022 EXAMINATION: GA PET CT CARDIAC PHARMACOLOGIC STRESS AND REST, GA PET CTCARDIAC PHARMACOLOGIC STRESS CT COMPONENT CLINICAL [...] patients who have questions please contactthe health acute care nurse practitioner that requested your imaging first. Faustina Miller MD IMG PET ORDERABLES documented in this encounter Visit Diagnoses Diagnosis Chest pain, unspecified type Coronary artery disease involving benton coronary artery of benton heart, unspecified whether angina present PVD (peripheral vascular disease) Peripheral vascular disease, unspecified Chest pain, unspecified type documented in this encounter Care Teams Athletic Scout Relationship Specialty Start Date End Date Susansadie DEVANTE Colbert [address] [place] [address] PCP - General Family Medicine 11/03/22 documented as of this encounter
--- OUTSIDE RECORDS SUMMARY | 2024-01-05 02:42 | XMS_ITS | Encounter Summary ---
Author Organization [facility] [place] [address] Care Team Providers Care Corporate Pilot Name Role Phone Nataliya Messina MD Primary Care Provider [phone] Reason for Visit * Diagnostic Test (Routine) - Closed Specialty Diagnoses / Procedures Referred By Contac t Referred To Contact Radiology Diagnoses Small cell lung cancer Small cell lung cancer, right upper lobe Procedures NM PET CT Skull Base to Mid-thigh Heber Phillips MD [facility] DR HEMATOLOGY/[place] [address] [place] [address] Referral ID Status Reason Start Date Expiration Date V isits Requested Visits Authorized [id number] Closed Specialty Service Requested 03/11/2021 09/08/2022 1 1 Encounter Details Date Type Department Care Team (Latest Contact Info) Description 07/08/2021 8:58 AM EST - 07/08/2021 11:59 PM EST Hospital Encounter [place] [address] Heber Phillips MD [facility] HEMATOLOGY/[place] [address] Discharge Disposition: Home Social History [...] mg Tablet, SublingualIndications :Coronary artery disease involving pit river heart without angina pectoris, unspecified vessel or [...] AM EDT Appointment Hematology [place] [address] 01/21/2024 10:[address] [place] [address] Heber Phillips MD [facility] DR HEMATOLOGY/[place] [address] 03/28/2024 10:00 AM EDT Office Visit Hematology/Oncology at [address] [address] Heber Phillips MD [facility] HEMATOLOGY/[place] [address] Isabella Baker APRN [facility] [place] [address] documented as of this encounter Procedures Procedure Name Priority Date/Time Associated Diagnosis Comments NM PET CT SKULL BASE TO MID-THIGH ([facility]) Routine 07/08/2021 10:27 AM EST Small cell lung cancer Small cell lung cancer, right upper lobe POCT GLUCOSE Routine 07/08/2021 9:05 AM EST documented in this encounter Results * POCT Glucose (07/08/2021 9:05 AM EST) POC Glucose 113 65 - 199 mg/dL [facility] Comment: Supplemental ranges: <140 mg/dL before meals <180 mg/dL all other times of the day Blood 07/08/2021 9:05 AM EST 07/08/2021 9:05 AM EST Heber Phillips MD POINT OF CARE TEST O RDERABLES [place] [phone] documented in this encounter Visit Diagnoses Not on filedocumented in this encounter Care Teams Corporate Pilot Relationship Specialty Start Date End Date Nataliya Messina MD [address] [place] [address] PCP - General 10/02/11 01/11/22 documented as of this encounter
--- OUTSIDE RECORDS SUMMARY | 2024-01-05 02:42 | XMS_ITS | Encounter Summary ---
Author Organization [place] [address] Care Team Providers Care Carving Machine Operator Name Role Phone Nataliya Messina MD Primary Care Provider Reason for Referral * Diagnostic Test (Routine) - Closed Specialty Diagnoses / Procedures Referred By Contac t Referred To Contact Radiology Diagnoses Small cell lung cancer Small cell lung cancer, right upper lobe Procedures NM PET CT Skull Base to Mid-thigh Heber Phillips MD [facility] DR HEMATOLOGY/[place] [address] [place] [address] Referral ID Status Reason Start Date Expiration Date V isits Requested Visits Authorized [id number] Closed Specialty Service Requested 03/11/2021 09/08/2022 1 1 Reason for Visit * Diagnostic Test (Routine) - Closed Specialty Diagnoses / Procedures Referred By Contac t Referred To Contact Radiology Diagnoses Small cell lung cancer Small cell lung cancer, right upper lobe Procedures NM PET CT Skull Base to Mid-thigh Heber Phillips MD [facility] [place]ATOLOG[place] [address] [place] [address] Referral ID Status Reason Start Date Expiration Date V isits Requested Visits Authorized [id number] Closed Specialty Service Requested 03/11/2021 09/08/2022 1 1 Encounter Details Date Type Department Care Team (Latest Contact Info) Description 07/08/2021 8:57 AM EST Hospital Encounter Nuclear Medicine at [facility] [place] [address] Heber Phillips MD [facility] HEMATOLOGY/[place] [address] Small cell lung cancer; Small cell lung [...] mg Tablet, SublingualIndications :Coronary artery disease involving point hope ira heart without angina pectoris, unspecified vessel or [...] AM EDT Appointment Hematology [place] [address] 01/21/2024 10:[address] [place] [address] Heber Phillips MD [facility] [place]ATOLOG[place] [address] 03/28/2024 10:00 AM EDT Office Visit Hematology/Oncology at [address] [address] Heber Phillips MD [facility] HEMATOLOGY/[place] [address] Isabella Baker APRN [facility] [place] [address] documented as of this encounter Procedures Procedure Name Priority Date/Time Associated Diagnosis Comments NM PET CT SKULL BASE TO MID-THIGH ([facility]) Routine 07/08/2021 10:27 AM EST Small cell lung cancer Small cell lung cancer, right upper lobe documented in this encounter Results * NM PET CT Skull Base to Mid-thigh (07/08/2021 10:27 AM EST) Anatomical Region Laterality Modality Positron Emissio n Tomography (PET) Impressions 07/08/2021 11:17 AM EST 1. ??No evidence of residual or metastatic disease. 2. ??Stable posttreatment change in the right apex. I have personally reviewed the image(s) and the resident's interpretation and agree with the findings, Tino Gallardo MD at 07/08/2021 11:17 AM Thank you for letting us participate in the care of this patient. ??If you are a health care provider and have any questions regarding this report, please contact the number below. ??For patients who have questions please contact the health respiratory care practitioner that requested your imaging first. ? Narrative 07/08/2021 11:17 AM EST EXAMINATION: NM PET CT STANDARD SKULL BASE TO MID-THIGH CLINICAL HISTORY: Small cell lung cancer, assess treatment response Restaging of small cell lung cancer, status post concurrent chemoradiation in 2018. TECHNIQUE: Following IV injection of 19-tcbgva-2-deoxyglucose (FDG) a standard uptake of approximately 60 minutes, a noncontrast CT scan followed by a PET scan were acquired from the base of the skull to mid thighs. The noncontrast CT was used for anatomic localization and photon attenuation correction of the PET scan. Blood glucose level: 113 (mg/dL) FDG dose: 11.7 mCi COMPARISON: PET/CT dated 12/25/2020. CT chest abdomen pelvis dated 01/23/2019. FINDINGS: HEAD/NECK: Normal activity in all soft tissue regions. No significant adenopathy. CHEST: Consolidation within the right apex is unchanged in morphology and with no significant activity above reference blood pool background. This is most consistent with post treatment change. Subcentimeter non-FDG avid nodules are again seen within the right lower lobe (axial image 87). These are unchanged from 10/14/2018, and are favored to be benign. Emphysema. Lingular and left basilar atelectasis. Right-sided Mediport catheter, with the tip terminating at the cavoatrial junction. Coronary and aortic calcifications. ABDOMEN/PELVIS: Normal activity in all soft tissue regions. 3.2 cm aneurysmal dilation of the infrarenal abdominal and aorta (axial image 157), unchanged compared to prior. SKELETON/EXTREMITIES: Decreased uptake within the marrow of the upper thoracic spine, consistent with prior radiation. Subcentimeter cystic lesion in the right iliac bone with low level uptake (axial image 210), unchanged over prior studies, favored to be degenerative subchondral cyst. Procedure Note Tino Gallardo MD - 07/08/2021 EXAMINATION: NM PET CT STANDARD SKULL BASE TO MID-THIGH CLINICAL HISTORY: Small cell lung cancer, assess treatment response Restaging of small cell lung cancer, status post concurrent chemoradiationin 2018. TECHNIQUE: Following IV injection of 99-rtlkkk-1-deoxyglucose (FDG) astandard uptake of approximately 60 minutes, a noncontrast CT scan followed by aPET scan were acquired from the base of the skull to mid thighs. The noncontrast CTwas used for anatomic localization and photon attenuation correction of thePET scan. Blood glucose level: 113 (mg/dL) FDG dose: 11.7 mCi COMPARISON: PET/CT dated 12/25/2020. CT chest abdomen pelvis dated 01/23/2019. FINDINGS: HEAD/NECK: Normal activity in all soft tissue regions. No significant adenopathy. CHEST: Consolidation within the right apex is unchanged in morphology and withno significant activity above reference blood pool background. This is most consistent with post treatment change. Subcentimeter non-FDG avid nodules are again seen within the right lowerlobe (axial image 87). These are unchanged from 10/14/2018, and are favored dorothy benign. Emphysema. Lingular and left basilar atelectasis. Right-sided Mediportcatheter, with the tip terminating at the cavoatrial junction. Coronary and aortic calcifications. ABDOMEN/PELVIS: Normal activity in all soft tissue regions. 3.2 cm aneurysmal dilation ofthe infrarenal abdominal and aorta (axial image 157), unchanged compared toprior. SKELETON/EXTREMITIES: Decreased uptake within the marrow of the upper thoracic spine, consistentwith prior radiation. Subcentimeter cystic lesion in the right iliac bone with low level uptake(axial image 210), unchanged over prior studies, favored to be degenerativesubchondral cyst. IMPRESSION 1. No evidence of residual or metastatic disease. 2. Stable posttreatment change in the right apex. I have personally reviewed the image(s) and the resident's interpretationand agree with the findings, Tino Gallardo MD at 07/08/2021 11:17 AM Thank you for letting us participate in the care of this patient. If youare a health care provider and have any questions regarding this report,please contact the number below. For patients who have questions please contactthe health respiratory care practitioner that requested your imaging first. Heber Phillips MD IM PET ORDERABLES documented in this [...] Intravenous, ONCE PRN, 1 dose, Starting on Wed07/08/21 at 0918, Until Wed07/08/21 at 0911, Per Protocol, Radiology Contrast, Routine Given 07/08/2021 9:11 AM EST 11.7 mCi Right Arm documented in this encounter Care Teams Carving Machine Operator Relationship Specialty Start Date End Date Nataliya Messina MD [address] [place] [address] PCP - General 10/02/11 01/11/22 documented as of this encounter
--- OUTSIDE RECORDS SUMMARY | 2024-01-05 02:42 | XMS_ITS | Encounter Summary ---
Author Organization [facility] [place] [address] Care Team Providers Care Supervisor Accounting Clerks Name Role Phone None Primary Care Provider Unavailabl e Reason for Visit * Reason Comments IV Medication Monoferric * Treatment/Therapy Plan Authorization (Routine) - Authorized Specialty Diagnoses / Procedures Referred By Contac t Referred To Contact Hematology and Oncology Diagnoses Iron deficiency anemia, unspecified iron deficiency anemia type Procedures [id number] MONOFERRIC Heber Phillips MD [address] [place] [id number] Heber Phillips MD [address] [place] [id number] Referral ID Status Reason Start Date Expiration Date V isits Requested Visits Authorized [id number] Authorized 10/13/2022 12/12/2023 99 99 Encounter Details Date Type Department Care Team (Late st Contact Info) Description 10/13/2022 3:00 PM EDT Infusion Hematology Oncology at [address] [phone] Iron deficiency anemia, unspecified iron deficiency anemia [...] Progress Notes * Kiley Silva RN - 10/13/2022 3:00 PM EDT INFUSION THERAPY ADMINISTRATION NOTES DIAGNOSIS: Iron Deficiency Anemia REASON FOR VISIT: Monoferric SUBJECTIVE: Hieu Tillman offers no complaints except for moderate dyspnea with exertion.. OBJECTIVE: VSS. Seen by provider. Ready to treat. LAB DATA: WBC - 9.69, H/H - 13.0/40.2, Plt Ct - 442, ANC - 7.68, Lytes wnl, BUN/Cr - 13/1.0, Ferritin - 42 Pre administration: Chemotherapy orders independently verified for drug name, route, and dosage per patient's height, weight and BSA by Kiley Silva, BOB and Staff Pharmacist(s). REACTIONS (DESCRIPTION, TIME, INTERVENTION [...] AM EDT Appointment [place]ology [place] [address] 01/21/2024 10:[address] [place] [place] [address] Heber Phillips MD [facility] HEMATOLOGY/[place] [address] 03/28/2024 10:00 AM EDT Office Visit Hematology/Oncology at [address] [phone] Heber Phillips MD [facility] HEMATOLOGY/[place] [address] Isabella Baker APRN [facility] DR [place] [address] documented as of this encounter Visit Diagnoses [...] 1,000 mg, Intravenous, ONCE, 1 dose, On Wed10/13/22 at 1615, Administer over 20 Minutes, Administer over at least 20 minutes. Monitor for 30 minutes after infusion for hypersensitivity reactions. Compatible only in sodium chloride 0.9%, This agent is restricted to oupatient use. Is this drug being given as an outpatient? Yes New Bag 10/13/2022 3:49 PM EDT 1,000 mg 330 mL/hr documented in this encounter Care Teams Supervisor Accounting Clerks Relationship Specialty Start Date End Date None None PCP - General 01/12/22 11/02/22 documented as of this encounter
--- OUTSIDE RECORDS SUMMARY | 2024-01-05 02:42 | XMS_ITS | Encounter Summary ---
[place] [address] Care Team Providers Care Wharf Tender Name Role Phone Nataliya Messina MD Primary Care Provider [phone] Reason for Visit * Reason Onset Date Comments Follow-up 12/24/2021 Encounter Details Date Type Department Care Team (Late st Contact Info) Description 12/24/2021 Telephone Hematology/Oncology at [address] [phone] Aleida Knight RN Follow-up Social [...] Telephone Encounter - Aleida Knight RN - 12/24/2021 2:18 PM EDT Tried to call Hieu no answer on his phone. Called his sister Tita's phone, spoke with Tita andasked her to have Hieu call us to see if he wants a sedated MRI if not then Dr. Phillips will order Pet scan. Tita said she will ask him to call us. documented in this encounter Plan of Treatment Upcoming Encounters Date Type Department Care Team (Late st Contact Info) Description 01/10/2024 7:45 AM EDT Appointment Hematology [place] [address] 01/21/2024 10:[address] [place] [address] Heber Phillips MD [facility] DR HEMATOLOGY/[place] [address] 03/28/2024 10:00 AM EDT Office Visit Hematology/Oncology at [address] [phone] Heber Phillips MD [facility] DR HEMATOLOGY/[place] [address] Isabella Baker APRN [facility] [place] [address] documented as of this encounter Visit Diagnoses Not on filedocumented in this encounter Care Teams Wharf Tender Relationship Specialty Start Date End Date Nataliya Messina MD [address] [place] [address] PCP - General 10/02/11 01/11/22 documented as of this encounter
--- OUTSIDE RECORDS SUMMARY | 2024-01-05 02:42 | XMS_ITS | Encounter Summary ---
Author Organization [facility] Address [facility] [place] [address] Care Team Providers Care Customer Sales Distributor Name Role Phone None Primary Care Provider Unavailabl e Encounter Details Date Type Department Care Team (Late st Contact Info) Description 01/13/2022 1:00 PM EDT Office Visit Hematology/Oncology at [address] [phone] Heber Phillips MD [facility] DR HEMATOLOGY/[place] [address] Thu Saldana APRN [facility] [place] [address] Small cell lung cancer (Primary Dx); Iron deficiency anemia, unspecified iron [...] Sign Reading Time Taken Comments Blood Pressure 133/61 01/13/2022 1:02 PM EDT Pulse 81 01/13/2022 1:02 PM EDT Temperature 36.4 ??C (97.5 ??F) 01/13/2022 1:02 PM ED T Respiratory Rate 24 01/13/2022 1:02 PM EDT Oxygen Saturation 92% 01/13/2022 1:02 PM EDT Inhaled Oxygen Concentration - - Weight 74.4 kg (164 lb) 01/13/2022 1:02 PM EDT Height 170.2 cm (5' 7.01) 01/13/2022 1:02 PM ED T Body Mass Index 25.68 01/13/2022 1:02 PM EDT documented in this encounter Progress Notes * Heber Phillips MD - 01/13/2022 1:00 PM EDT Images from the original note were not included. Diagnosis: High-grade neuroendocrine cancer of right lung, limited stage, clinical: stage IIIA (cT3, cN1, cM0) Subjective: I am still windy HPI:Hieu Tillamn is 66 y.o. M referred by Dr. [...] referred for consideration of definitive chemoradiation. Subjective (01/13/22): Mr. Tillman returns to the [facility] for follow up of small cell lung cancer, anemia and discussion on restaging PET scan. Overall, Hieu feels at his baseline. No changes in shortness of breath. He had episode of nosebleed. Follows with supervisor veneer. Denies any pain. No fevers or chills. Denies any issues with his bowels. No constipation, diarrhea or blood in stool. PMH: No interval changes since last visit Admitted 05/16/2021 for COPD exacerbation Colonoscopy and upper endoscopy on February 21, 2021 MO in 2014 status post 2 stents placement, [...] radiating to right leg ??? [place] [facility] [place] 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 If you have any questions, [...] 0 Wt Readings from Last 3 Encounters: 01/13/22 74.4 kg (164 lb) 07/15/21 78.9 kg (174 lb) 04/30/21 78 kg (172 lb) Review of Systems: Constitutional: Negative for [...] Neurological: Negative. Hematological: Negative for adenopathy. BP 133/61 (Patient Position: Sitting) Pulse 81 Temp 36.4 ??C (97.5 ??F) (Temporal) Resp 24 Ht 170.2 cm (5' 7.01) Wt 74.4 kg (164 lb) SpO2 92% BMI 25.68 kg/m?? Wt Readings from Last 3 Encounters: 01/13/22 74.4 kg (164 lb) 07/15/21 78.9 kg (174 lb) 04/30/21 78 kg (172 lb) Physical Exam Constitutional: He is oriented [...] normal. Judgment and thought content normal. Labs: Recent Results (from the past 72 hour(s)) Comprehensive metabolic panel (non-fasting) Result Value Ref Range Glucose Lvl 105 65 - 199 mg/dL BUN 18 10 - 20 mg/dL Creatinine 1.18 0.80 - 1.50 mg/dL Sodium 139 135 - 145 mmol/L Potassium 4.4 3.5 - 5.0 mmol/L Chloride 101 98 - 107 mmol/L CO2 28 22 - 31 mmol/L Anion Gap 10 5 - 15 mmol/L Calcium 10.1 8.5 - 10.5 mg/dL Total Protein 7.2 6.1 - 8.0 g/dL Albumin 4.7 3.2 - 5.2 g/dL AST 17 0 - 39 unit/L ALT 14 0 - 55 unit/L Alk Phos 99 40 - 130 unit/L Total Bilirubin 0.4 0.2 - 1.3 mg/dL Estimated GFR 68 >=60 mL/min/1.73 m?? Ferritin Result Value Ref Range Ferritin 26 (L) 30 - 400 ng/mL Hemogram Result Value Ref Range WBC 5.7 4.0 - 9.5 x10(3)/mcL RBC 4.04 (L) 4.58 - 5.54 x10(6)/mcL Hemoglobin 10.1 (L) 13.7 - 16.5 g/dL Hematocrit 32.0 (L) 40.5 - 48.5 % MCV 79.2 (L) 82.9 - 93.1 fL MCH 25.0 (L) 27.5 - 32.1 pg MCHC 31.6 (L) 32.0 - 35.7 g/dL Platelets 398 (H) 145 - 357 x10(3)/mcL RDWSD 41.9 36.0 - 45.0 fL RDWCV 14.5 (H) 11.4 - 13.8 % MPV 9.0 7.6 - 12.9 fL nRBC % Auto 0.0 % nRBC Abs Auto 0.000 0.000 - 0.000 x10(3)/mcL Differential, Automated Result Value Ref Range Neutrophils % 75.7 % Neutr Abs (ANC) 4.34 1.70 - 6.10 x10(3)/mcL Lymphocytes % 7.0 % Lymphocytes Abs 0.4 (L) 0.9 - 3.2 x10(3)/mcL Monocytes % 13.9 % Monocyte Abs 0.8 0.3 - 0.9 x10(3)/mcL Eosinophils % 1.9 % Eosinophils Abs 0.1 0.0 - 0.4 x10(3)/mcL Basophils % 1.0 % Basophils Abs 0.1 0.0 - 0.1 x10(3)/mcL Immature Gran % 0.50 % Suri Gran Abs 0.03 0.00 - 0.04 x10(3)/mcL POCT Glucose Result Value Ref Range POC Glucose 100 65 - 199 mg/dL 01/22/2021 LDH 170, ferritin 28, vitamin B12 [...] count 425, ANC 5.42 09/17/20- WBC-9.21 Hgb/Hct-11.9/36.1 [id number] ANC-6.94 03/05/2020 WBC 8.23, hemoglobin 14.6, platelet count 387, ANC 6.5, sodium 131, potassium 3.9, BUN 12, creatinine 1.01, calcium 9.3, TB 0.3, AST 26, ALT 38, alkaline phosphatase 112, total protein 7.5. 10/24/19 WBC 8.18, hemoglobin 13.3, platelet count 464, ANC 5.99 sodium 127, BUN 17, creatinine 1.13, calcium 8.9, AST 22, ALT 38, alkaline phosphatase 129, total protein 7.6, albumin 3.8. Imagin01/12/22 PET scan: IMPRESSION 1. No evidence of [...] including history of stroke, severe peripheralvascular disease, [place] status post stent placement and COPD. His [...] on resolution of the new lung opacity #Anemia: Ferritin is 26, so he is still iron deficient. Had [...] PCP. He may need to see a supervisor veneer again. Plan: 1. Monoferric infusion x1 2. Next visit in 3 months with CBC, CMP, Ferritin and CT chest The plan was discussed with the patient in details. All questions were answered to patient's satisfaction. documented in this encounter Plan of Treatment Upcoming Encounters Date Type Department Care Team (Late st Contact Info) Description 01/10/2024 7:45 AM EDT Appointment Hematology [place] [address] 01/21/2024 10:[address] [place] [address] Heber Phillips MD [facility] DR HEMATOLOGY/[place] [address] 03/28/2024 10:00 AM EDT Office Visit Hematology/Oncology at [address] [phone] Heber Phillips MD [facility] DR HEMATOLOGY/[place] [address] Isabella Baker APRN [facility] [place] [address] documented as of this encounter Visit Diagnoses Diagnosis Small cell lung cancer- Primary Malignant neoplasm of bronchus and lung, unspecified site Iron deficiency anemia, unspecified iron deficiency anemia type SOB (shortness of breath) Shortness of breath documented in this encounter Care Teams Customer Sales Distributor Relationship Specialty Start Date End Date None None PCP - General 01/12/22 11/02/22 documented as of this encounter
--- OUTSIDE RECORDS SUMMARY | 2024-01-05 02:42 | XMS_ITS | Encounter Summary ---
Author Organization [facility] Address [facility] [place] [address] Care Team Providers Care Proposal Analyst Name Role Phone None Primary Care Provider Unavailabl e Encounter Details Date Type Department Care Team (Latest Contact Info) Description 10/13/2022 Travel Social History Tobacco Use Types Packs/Day [...] AM EDT Appointment Hematology [place] [address] 01/21/2024 10:[address] [place] [address] Heber Phillips MD [facility] HEMATOLOGY/[place] [address] 03/28/2024 10:00 AM EDT Office Visit Hematology/Oncology at [address] [phone] Heber Phillips MD [facility] HEMATOLOGY/[place] [address] Isabella Baker APRN [facility] [place] [address] documented as of this encounter Visit Diagnoses Not on filedocumented in this encounter Care Teams Proposal Analyst Relationship Specialty Start Date End Date None None PCP - General 01/12/22 11/02/22 documented as of this encounter
--- OUTSIDE RECORDS SUMMARY | 2024-01-05 02:42 | XMS_ITS | Encounter Summary ---
Author Organization [facility] [place] [address] Care Team Providers Care Advertising Consultant Name Role Phone None Primary Care Provider Unavailabl e Reason for Visit * Diagnostic Test (Routine) - Closed Specialty Diagnoses / Procedures Referred By Contac t Referred To Contact Radiology Diagnoses Small cell lung cancer, right upper lobe Procedures NM PET CT Skull Base to Mid-thigh Heber Phillips MD [facility] DR HEMATOLOGY/[place] [address] [facility] [place] [address] Referral ID Status Reason Start Date Expiration Date V isits Requested Visits Authorized [id number] Closed Specialty Service Requested 04/21/2022 10/20/2023 1 1 Encounter Details Date Type Department Care Team (Latest Contact Info) Description 09/28/2022 11:56 AM EDT - 09/28/2022 11:59 PM EDT Hospital Encounter [place] [address] Heber Phillips MD [facility] HEMATOLOGY/[place] [address] Discharge Disposition: Home Social History [...] mg Tablet, SublingualIndications :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, unspecified vessel or [...] AM EDT Appointment Hematology [place] [address] 01/21/2024 10:[address] [place] [address] Heber Phillips MD [facility] DR HEMATOLOGY/[place] [address] 03/28/2024 10:00 AM EDT Office Visit Hematology/Oncology at [address] [phone] Heber Phillips MD [facility] DR HEMATOLOGY/[place] [address] Isabella Baker APRN [facility] [place] [address] documented as of this encounter Procedures Procedure Name Priority Date/Time Associated Diagnosis Comments NM PET CT SKULL BASE TO MID-THIGH ([facility]R) Routine 09/28/2022 1:26 PM EDT Small cell lung cancer, right upper lobe POCT GLUCOSE Routine 09/28/2022 12:04 PM EDT documented in this encounter Results * POCT Glucose (09/28/2022 12:04 PM EDT) POC Glucose 88 65 - 199 mg/dL [facility] Comment: Supplemental ranges: <140 mg/dL before meals <180 mg/dL all other times of the day Blood 09/28/2022 12:0 4 PM EDT 09/28/2022 12:04 PM EDT Heber Phillips MD POINT OF CARE TEST O RDERABLES Performing Organization Address City/State/[facility] Co de Phone Number [facility] [place] [address] documented in this encounter Visit Diagnoses Not on filedocumented in this encounter Care Teams Advertising Consultant Relationship Specialty Start Date End Date None None PCP - General 01/12/22 11/02/22 documented as of this encounter
--- OUTSIDE RECORDS SUMMARY | 2024-01-05 02:43 | XMS_ITS | Encounter Summary ---
[place] [address] Care Team Providers Care Residence Director Name Role Phone Nataliya Messina MD Primary Care Provider [phone] Reason for Referral * Diagnostic Test (Routine) - Closed Specialty Diagnoses / Procedures Referred By Contac t Referred To Contact Radiology Diagnoses Small cell lung cancer, right upper lobe Procedures NM PET CT Skull Base to Mid-thigh Mary Cleaning RN [address] [place] [address] [place] [address] [place] [address] Referral ID Status Reason Start Date Expiration Date V isits Requested Visits Authorized [id number] Closed Specialty Service Requested 09/17/2020 03/20/2022 1 1 Reason for Visit * Diagnostic Test (Routine) - Closed Specialty Diagnoses / Procedures Referred By Contac t Referred To Contact Radiology Diagnoses Small cell lung cancer, right upper lobe Procedures NM PET CT Skull Base to Mid-thigh Mary Cleaning RN [address] [place] [address] [place] [address] [place] [address] Referral ID Status Reason Start Date Expiration Date V isits Requested Visits Authorized [id number] Closed Specialty Service Requested 09/17/2020 03/20/2022 1 1 Encounter Details Date Type Department Care Team (Latest Contact Info) Description 12/25/2020 11:45 AM EDT Hospital Encounter [place] [address] Mary Cleaning RN Small cell lung cancer, right upper lobe Discharge Disposition: Home Social History Tobacco Use Types Packs/Day Years Used Date Smoking Tobacco: Former Cigarettes 2 47 0 09/11/1966 - 09/11/2013 Smokeless Tobacco: Never Alcohol Use Standard Drinks/Week Comments No 0 (1 standard drink = 0.6 oz pure alcohol) Sober 25 years the summer Sex and Gender Information Value Date Recorded Sex Assigned at Not on file Gender Identity Not on file Sexual Orientation Not on file documented as of this encounter Medications at Time of Discharge Medication Sig Dispensed Refills Start Date End Date acetaminophen (Tylenol) 325 mg Tablet Take by [...] tablet Take 81 mg by mouth daily. hydrALAZINE (Apresoline) 25 mg Tablet Take by mouth. 11/02/2016 10/13/2022 clopidogrel (PLAVIX) 75 mg tablet Take 1 tablet by mouth daily. 90 tablet 3 09/13/2013 07/30/2023 nitroGLYcerin (NITROSTAT) 0.[address] 1 tablet under the tongue every 5 minutes as needed. 25 tablet 12 09/13/2013 04/30/2021 hydrochlorothiazide (HYDRODIURIL) 25 mg tablet Take 25 mg by mouth every other day. 10/12/2023 documented as of this encounter Plan of Treatment Upcoming Encounters Date Type Department Care Team (Late st Contact Info) Description 01/10/2024 7:45 AM EDT Appointment Hematology [place] [address] 01/21/2024 10:[address] [place] [address] Heber Phillips MD [facility] DR HEMATOLOGY/[place] [address] 03/28/2024 10:00 AM EDT Office Visit Hematology/Oncology at [address] [phone] Heber Phillips MD [facility] HEMATOLOGY/[place] [address] Isabella Baker APRN [facility] DR MEDICAL [place] [address] documented as of this encounter Procedures Procedure Name Priority Date/Time Associated Diagnosis Comments NM PET CT SKULL BASE TO MID-THIGH ([facility]) Routine 12/25/2020 1:33 PM EDT Small cell lung cancer, right upper lobe documented in this encounter Results * NM PET CT Skull Base to Mid-thigh (12/25/2020 1:33 PM EDT) Anatomical Region Laterality Modality Positron Emissio n Tomography (PET) Impressions 12/25/2020 4:12 PM EDT 1. ??No evidence of recurrent or metastatic malignancy. 2. ??Near complete resolution of the previously seen inflammation or infection in the lingula. 3. ??Previously identified increased activity in the cecum is not seen. Thank you for letting us participate in the care of this patient. ??If you are a health care provider and have any questions regarding this report, please contact the number below. ??For patients who have questions please contact the health client care manager that requested your imaging first. ? Narrative 12/25/2020 4:12 PM EDT EXAMINATION: NM PET CT STANDARD SKULL BASE TO MID-THIGH CLINICAL HISTORY: Cancer of unknown primary, surveillance TECHNIQUE: Following IV injection of 07-ihxggr-0-deoxyglucose (FDG) a standard uptake of approximately 60 minutes, a noncontrast CT scan followed by a PET scan were acquired from the base of the skull to mid thighs. The noncontrast CT was used for anatomic localization and photon attenuation correction of the PET scan. Blood glucose level: 111 (mg/dL) FDG dose: 12.5 mCi COMPARISON: September 13, 2020 FINDINGS: HEAD/NECK: There is a mildly hypermetabolic, nonenlarged right sided level two lymph node. This is likely reactive. CHEST: There has been near complete resolution of the previously described FDG avid groundglass opacities within the lingula. This is compatible with resolving inflammation or infection. Consolidation of the apex of the right upper lobe with mild to moderate FDG avidity is unchanged and most suggestive of a response to prior therapy. No new hypermetabolic lesions are seen. No lymphadenopathy is identified. The previously noted small, non-FDG avid nodules in the right lower lobe are unchanged. A port is present in the right anterior chest wall and has a central venous catheter that extends to the right atrium. Coronary artery calcification is seen. ABDOMEN/PELVIS: Normal activity in all soft tissue regions. The FDG activity within the cecum described in the prior study is no longer seen. The infrarenal abdominal aortic aneurysm is stable. SKELETON/EXTREMITIES: Normal activity in all regions of the axial and visualized appendicular skeleton. Procedure Note Vamsi Perez MD - 12/25/2020 EXAMINATION: NM PET CT STANDARD SKULL BASE TO MID-THIGH CLINICAL HISTORY: Cancer of unknown primary, surveillance TECHNIQUE: Following IV injection of 81-dzlqnx-5-deoxyglucose (FDG) astandard uptake of approximately 60 minutes, a noncontrast CT scan followed by aPET scan were acquired from the base of the skull to mid thighs. The noncontrast CTwas used for anatomic localization and photon attenuation correction of thePET scan. Blood glucose level: 111 (mg/dL) FDG dose: 12.5 mCi COMPARISON: September 13, 2020 FINDINGS: HEAD/NECK: There is a mildly hypermetabolic, nonenlarged right sided level two lymphnode. This is likely reactive. CHEST: There has been near complete resolution of the previously described FDGavid groundglass opacities within the lingula. This is compatible withresolving inflammation or infection. Consolidation of the apex of the right upper lobe with mild to moderateFDG avidity is unchanged and most suggestive of a response to prior therapy. No new hypermetabolic lesions are seen. No lymphadenopathy is identified. The previously noted small, non-FDG avid nodules in the right lower lobeare unchanged. A port is present in the right anterior chest wall and has acentral venous catheter that extends to the right atrium. Coronary arterycalcification is seen. ABDOMEN/PELVIS: Normal activity in all soft tissue regions. The FDG activity within the cecum described in the prior study is nolonger seen. The infrarenal abdominal aortic aneurysm is stable. SKELETON/EXTREMITIES: Normal activity in all regions of the axial and visualized appendicular skeleton. IMPRESSION 1. No evidence of recurrent or metastatic malignancy. 2. Near complete resolution of the previously seen inflammation orinfection in the lingula. 3. Previously identified increased activity in the cecum is not seen. Thank you for letting us participate in the care of this patient. If youare a health care provider and have any questions regarding this report,please contact the number below. For patients who have questions please contactthe health client care manager that requested your imaging first. Mary Cleaning RN IMG PET ORDERABLES documented in this encounter Visit Diagnoses Diagnosis Small cell lung cancer, right upper lobe documented in this encounter Administered Medications Inactive Administered Medications - up to 3 most recent administrations Medication Order MAR Action Action Date Dose Rate Site fludeoxyglucose (F-18) FDG injection 0-20 mCi 0-20 mCi, Intravenous, ONCE PRN, 1 dose, Starting on Wed12/25/20 at 1216, Until Wed12/25/20 at 1211, Per Protocol, Radiology Contrast, Routine Given 12/25/2020 12:11 PM EDT 12.5 mCi Right Arm documented in this encounter Care Teams Residence Director Relationship Specialty Start Date End Date Nataliya Messina MD [address] [place] [address] PCP - General 10/02/11 01/11/22 documented as of this encounter
--- OUTSIDE RECORDS SUMMARY | 2024-01-05 02:43 | XMS_ITS | Encounter Summary ---
Author Organization [facility] Address [facility] [place] [address] Care Team Providers Care Fingerprint Classifier Name Role Phone Nataliya Messina MD Primary Care Provider [phone] Encounter Details Date Type Department Care Team (Late st Contact Info) Description 04/30/2021 10:40 AM EST Office Visit Cardiology at [address] [phone] Ramandeep Choudhary MD [facility] [place] [address] Coronary artery disease involving [place] coronary artery of [place] heart, unspecified whether angina present; Primary hypertension Social History Tobacco Use Types Packs/Day Years [...] Sign Reading Time Taken Comments Blood Pressure 114/78 04/30/2021 10:42 AM EST Pulse 73 04/30/2021 10:42 AM EST Temperature - - Respiratory Rate - - Oxygen Saturation - - Inhaled Oxygen Concentration - - Weight 78 kg (172 lb) 04/30/2021 10:42 AM EST Height 170.2 cm (5' 7) 04/30/2021 10:42 AM EST Body Mass Index 26.94 04/30/2021 10:42 AM EST documented in this encounter Progress Notes * Ramandeep Choudhary MD - 04/30/2021 10:40 AM EST CARDIOLOGY OUTPATIENT FOLLOW-UP NOTE PRIMARY CARE PROVIDER: Nataliya Messina MD REFERRING PROVIDER: Nataliya Messina PROBLEM LIST: Patient Active Problem List Diagnosis [...] Outpatient Medications Medication Sig Dispense Refill ??? albuteroL (ACCUNEB) 1.25 mg/3 mL Solution for Nebulization Take 1 ampule by nebulization every 6 hours as needed for Wheezing. ??? tamsulosin (Flomax) 0.4 mg Capsule TAKE TWO CAPSULES BY MOUTH AT BEDTIME ??? acetaminophen (TylenoL) 325 mg Tablet Take by mouth. ??? hydrALAZINE (Apresoline) 25 mg Tablet Take by mouth. ??? Combivent [...] mouth 2 times daily. 180 tablet 3 ??? fluticasone-vilanterol (BREO ELLIPTA) 100-25 mcg/dose Disk with Device Inhale 1 puff into the lungs daily. ??? atorvastatin (LIPITOR) 80 mg tablet Take 1 tablet by mouth daily. 30 tablet 2 ??? clopidogrel (PLAVIX) 75 mg tablet Take 1 tablet by mouth daily. 90 tablet 3 ??? nitroGLYcerin (NITROSTAT) 0.[address] 1 tablet under the tongue every 5 minutes as needed. (Patient not taking: Reported on 03/18/2021) 25 tablet 12 ??? hydrochlorothiazide (HYDRODIURIL) 25 mg tablet Take 25 mg by mouth every other day. ??? FIBER CHOICE ORAL Take 1 tablet by mouth daily. ??? aspirin 81 mg EC tablet Take 81 mg by mouth daily. No current facility-administered medications for this visit. Subjective: Patient ID: Hieu Tillman is a 65 y.o. male. HPI This 65-year-old man presents for annual cardiac follow-up. Overall he has been doing well since his last visit. His cancer treatments have been ongoing and he was felt to be relatively stable. He recently had colonoscopy and EGD for evaluation of anemia. Fortunately there were no serious findings He reports that his exercise tolerance is good. He was very active with his garden. He has been chopping wood. He describes exertional dyspnea which he attributes to his lung disease. He had some mild discomfort in the left upper chest a few weeks ago. This was not exertional and occurred at rest. He took an old nitroglycerin and seemed to get better. He is requesting a renewal for nitro tabs He is planning to go hunting again this winter with his grandson He is expecting 33 guests for Thanksgiving dinner Review of System Review of Systems Cardiovascular: Positive for dyspnea on exertion. Respiratory: Positive for shortness of breath. All other systems reviewed and are negative. Family History: Family History Problem Relation Age [...] on file Occupational History ??? 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 Smoking status: Former Smoker Packs/day: 2.00 Years: 47.00 Pack years: 94.00 Types: Cigarettes Quit date: 09/11/2013 Years since quittin.6 ??? Smokeless tobacco: Never Used Vaping Use ??? Vaping Use: Never used Substance and Sexual Activity ??? 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 Drug use: No ??? Sexual activity: Not Currently Comment: deferred Other Topics Concern ??? Not on file Social History Narrative Lives with his in [place], [place]. Retired from [employer] where he did repairs for 40 years. Has 5 children and many grandchildren. Social Determinants of Health Financial Resource Strain: Not on file Food Insecurity: Not on file Transportation Needs: Not on file Physical Activity: Not on file Housing Stability: Not on file Objective: Physical Exam Vitals and nursing note reviewed. Constitutional: Comments: Well-developed well-nourished no acute distress Eyes: Extraocular Movements: Extraocular movements intact. Neck: Comments: Right carotid endarterectomy incision well-healed Soft right carotid bruit Normal carotid upstrokes No bruit on the left Cardiovascular: Comments: Heart is regular without murmur or gallop Pulmonary: Comments: Decreased breath sounds throughout no wheezes or rales Abdominal: General: Abdomen is flat. Musculoskeletal: Comments: No peripheral edema, intact posterior tibial pulses Skin: General: Skin is warm and dry. EKG today shows sinus rhythm at 67 and is within normal limits Assessment and Plan: #1. Coronary artery disease. Patient describes stable exercise tolerance without symptoms specifically concerning for angina. Nitroglycerin will be renewed at his request. No medication changes were advised. No cardiac testing is indicated #2. Hypertension. Good blood pressure control on current medications #3. Small cell lung cancer. Overall the patient's cancer appears to be stable, records were reviewed We will plan routine follow-up in 1 year, sooner should new questions or concerns arise Thank you for the opportunity to participate in this patient's cardiovascular care. All questions were answered and I look forward to the next visit. documented in this encounter Plan of Treatment Upcoming Encounters Date Type Department Care Team (Late st Contact Info) Description 01/10/2024 7:45 AM EDT Appointment Hematology [place] [address] 01/21/2024 10:[address] [place] [address] Heber Phillips MD [facility] DR HEMATOLOGY/[place] [address] 03/28/2024 10:00 AM EDT Office Visit Hematology/Oncology at [address] [phone] Heber Phillips MD [facility] DR HEMATOLOGY/[place] [address] Isabella Baker APRN [facility] [place] [address] documented as of this encounter Visit Diagnoses Diagnosis Coronary artery disease involving [place] coronary artery of [place] heart, unspecified whether angina present Primary hypertension Unspecified essential hypertension documented in this encounter Care Teams Fingerprint Classifier Relationship Specialty Start Date End Date Nataliya Messina MD [address] [place] [address] [address] [place] [address] PCP - General 10/02/11 01/11/22 documented as of this encounter
--- OUTSIDE RECORDS SUMMARY | 2024-01-05 02:43 | XMS_ITS | Encounter Summary ---
Author Organization Formerly [facility] [place] [address] Care Team Providers Care Classification Analyst Name Role Phone Nataliya Messina MD Primary Care Provider [phone] Reason for Referral * Diagnostic Test (Routine) - Closed Specialty Diagnoses / Procedures Referred By Contac t Referred To Contact Radiology Diagnoses Small cell lung cancer, right upper lobe Procedures NM PET CT Skull Base to Mid-thigh Mary Cleaning RN [address] [place] [address] [place] [address] [place] [address] Referral ID Status Reason Start Date Expiration Date V isits Requested Visits Authorized [id number] Closed Specialty Service Requested 09/17/2020 03/20/2022 1 1 Encounter Details Date Type Department Care Team (Late st Contact Info) Description 09/17/2020 2:00 PM EDT Office Visit Hematology/Oncology at [address] [phone] Heber Phillips MD [facility] DR HEMATOLOGY/[place] [address] Mary Cleaning RN Small cell lung cancer, [...] Sign Reading Time Taken Comments Blood Pressure 145/59 09/17/2020 2:04 PM EDT Pulse 76 09/17/2020 2:04 PM EDT Temperature 36.8 ??C (98.2 ??F) 09/17/2020 2:04 PM ED T Respiratory Rate 18 09/17/2020 2:04 PM EDT Oxygen Saturation 96% 09/17/2020 2:04 PM EDT Inhaled Oxygen Concentration - - Weight 83.3 kg (183 lb 9.6 oz) 09/17/2020 2:04 P M EDT Height 166.4 cm (5' 5.5) 09/17/2020 2:04 PM EDT Body Mass Index 30.09 09/17/2020 2:04 PM EDT documented in this encounter Progress Notes * Mary Cleaning, LOCKSTITCH SLEEVE SETTER - 09/17/2020 2:00 PM EDT Images from the original note were not included. Diagnosis: High-grade neuroendocrine cancer of right lung, limited stage, clinical: stage IIIA (cT3, cN1, cM0) Subjective: I am still windy HPI:Hieu Tillman is 65 y.o. M referred by Dr. [...] referred for consideration of definitive chemoradiation. Subjective (09/17/20): Mr. Tillman returns to the [facility] for follow up of small cell lung cancer and discussion of restaging PET scan. He has noticed some increase in his shortness of breathin the past month. He hasn't exercised much all winter and he notices the difference when walking to get his mail. He has gained some weight this winter. No fevers or chills but he does occasionally wake up in a sweat. He has wood heat in his home. He does not smoke. He states he is using his inhalers every day. He has a cough that is occasionally productive of white sputum. Denies any pain. Denies any nausea, vomiting or pain. No fever or chills. Denies any issues with his bowels. No constipation, diarrhea or blood in stool. PMH: No interval changes since last visit [place] in 2013 status post 2 stents placement, peripheral vascular disease s/p R JAYA stent in 2011, stroke, right carotid endarterectomy with bovine pericardial patch angioplasty, COPD/emphysema Past Medical History: Diagnosis Date ??? Allergic state ??? Antiplatelet or antithrombotic long-term use on [...] radiating to right leg ??? [place] 6 [place] [facility] [place] ??? 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 Medications: Your Medications Accurate as of September 17, 2020 3:01 PM. If you have any questions, ask your nurse or doctor. Continued medications, unchanged Dose Details aspirin EC 81 mg Tbec Take 81 [...] lisinopriL 20 mg Tab Commonly known as: Prinivil;Zestril Take 1 tablet by mouth daily. 20 [...] the tongue every 5 minutes as needed. 0.4 mg Quantity: 25 tablet Refills: 12 pantoprazole EC 40 mg Tbec Commonly known as: Protonix Take 40 mg by mouth daily. 40 mg Refills: 0 Spiriva with HandiHaler 18 mcg Cpdv Inhale 18 mcg into the lungs daily. 2 puffs QD Generic drug: tiotropium 18 mcg Refills: 0 TylenoL 325 mg Tab Take by mouth. Generic drug: acetaminophen Refills: 0 Wt Readings from Last 3 Encounters: 09/17/20 83.3 kg (183 lb 9.6 oz) 05/03/20 80.7 kg (178 lb) 03/05/20 82.4 kg (181 lb 9.6 oz) Review of Systems: Constitutional: Negative for [...] Neurological: Negative. Hematological: Negative for adenopathy. BP 145/59 (Patient Position: Sitting) Pulse 76 Temp 36.8 ??C (98.2 ??F) (Temporal) Resp 18 Ht 166.4 cm (5' 5.5) Wt 83.3 kg (183 lb 9.6 oz) SpO2 96% BMI 30.09 kg/m?? Wt Readings from Last 3 Encounters: 09/17/20 83.3 kg (183 lb 9.6 oz) 05/03/20 80.7 kg (178 lb) 03/05/20 82.4 kg (181 lb 9.6 oz) Physical Exam Constitutional: He is oriented to person, place, and time. He appears well- developed and well-nourished. HENT: Mouth/Throat: Oropharynx is clear and moist. No oropharyngeal exudate. Eyes: Conjunctivae are normal. Pupils are equal, round, and reactive to light. Neck: Normal range of motion. Neck supple. Cardiovascular: Normal rate and regular rhythm. Pulmonary/Chest: Effort normal. Lungs sound clear. No wheezes or rhonci. Abdominal: Soft. He [...] normal. Judgment and thought content normal. Labs: 09/17/20- WBC-9.21 Hgb/Hct-11.9/36.1 [id number] ANC-6.94 03/05/2020 WBC 8.23, hemoglobin 14.6, platelet count 387, ANC 6.5, sodium 131, potassium 3.9, BUN 12, creatinine 1.01, calcium 9.3, TB 0.3, AST 26, ALT 38, alkaline phosphatase 112, total protein 7.5. 10/24/19 WBC 8.18, hemoglobin 13.3, platelet count 464, ANC 5.99 sodium 127, BUN 17, creatinine 1.13, calcium 8.9, AST 22, ALT 38, alkaline phosphatase 129, total protein 7.6, albumin 3.8. Imagin09/13/20- NM PET CT skull base to Mid-thigh- [...] including history of stroke, severe peripheralvascular disease, ME status post stent placement and COPD. His [...] radiation oncologist Dr. Cadena. Hieu declined PCI. Mr. Tillman returned today for surveillance visit and review of PET scan. He is doing well with oncological standpoint. His main concern is dyspnea which is probably related to his chronic lung disease. PET show possible pneumonia - will have him follow up with his PCP who manages his chronic lung disease. We will plan to repeat his surveillance PET scan in 3 months for comparison. It is negative formetastatic disease. We will continue observation see him back with surveillance PET scan and blood work in 3 months. It is also recommended he have a colonoscopy if he has not had one recently. #Depression: feels better on Celexa #Dyspnea/dry cough: Chronic lung disease managed by PCP. He may need to see a medical office secretary again. Plan: 1. Next visit with CBC, CMP and PET scan in 3 months. 2. Follow up with PCP- consider pulmonology. 3. Colonoscopy if not done recently. The plan was discussed with the patient in details. All questions were answered to patient's satisfaction. documented in this encounter Plan of Treatment Upcoming Encounters Date Type Department Care Team (Late st Contact Info) Description 01/10/2024 7:45 AM EDT Appointment Hematology [place] [address] 01/21/2024 10:[address] [place] [address] Heber Phillips MD [facility] HEMATOLOGY/[place] [address] 03/28/2024 10:00 AM EDT Office Visit Hematology/Oncology at [address] [phone] Heber Phillips MD [facility] DR HEMATOLOGY/[place] [address] Isabella Baker APRN [facility] [place] [address] documented as of this encounter Results * [...] who have questions please contact the health floor care technician that requested your imaging first. ? Narrative 12/25/2020 4:12 PM EDT EXAMINATION: NM PET CT STANDARD SKULL BASE TO MID-THIGH CLINICAL HISTORY: Cancer of unknown primary, surveillance TECHNIQUE: Following IV injection of 35-uqpqqc-2-deoxyglucose (FDG) a standard uptake of approximately 60 [...] primary, surveillance TECHNIQUE: Following IV injection of 30-ydpfoq-8-deoxyglucose (FDG) astandard uptake of approximately 60 minutes, [...] patients who have questions please contactthe health floor care technician that requested your imaging first. Mary Cleaning RN IMG PET ORDERABLES documented in this encounter Visit Diagnoses Diagnosis Small cell lung cancer, right upper lobe Small cell lung cancer, right upper lobe documented in this encounter Care Teams Classification Analyst Relationship Specialty Start Date End Date Nataliya Messina MD [address] [place] [address] [address] [facility] [address] [place] [address] PCP - General 10/02/11 01/11/22 documented as of this encounter
--- OUTSIDE RECORDS SUMMARY | 2024-01-05 02:43 | XMS_ITS | Encounter Summary ---
Author Organization [facility] [place] [address] Care Team Providers Care Sap Payroll Consultant Name Role Phone Nataliya Messina MD Primary Care Provider [phone] Reason for Visit * Diagnostic Test (Routine) - Closed Specialty Diagnoses / Procedures Referred By Contac t Referred To Contact Radiology Diagnoses Small cell lung cancer, right upper lobe Procedures NM PET CT Skull Base to Mid-thigh Heber Phillips MD [facility] DR HEMATOLOGY/[place] [address] [place] [address] Referral ID Status Reason Start Date Expiration Date V isits Requested Visits Authorized [id number] Closed Specialty Service Requested 10/31/2019 05/02/2021 1 1 Encounter Details Date Type Department Care Team (Latest Contact Info) Description 02/29/2020 9:04 AM EDT - 02/29/2020 11:59 PM EDT Hospital Encounter [place] [address] Heber Phillips MD [facility] HEMATOLOGY/[place] [address] Discharge Disposition: Home Social History [...] 325 mg Tablet Take by mouth. 11/03/2017 pantoprazole (PROTONIX) 40 mg Tablet, Delayed Release [...] mg Tablet Take by mouth. 11/02/2016 10/13/2022 ipratropium-albuterol (DUONEB) 0.5 mg-3 mg(2.5 mg base)/3 mL Solution for NebulizationIndicatio ns:COPD, very severe Take 0.5 mg by nebulization 4 times daily. 360 mL 11 07/17/2019 05/03/2020 budesonide (PULMICORT) 0.5 mg/2 mL Suspension for NebulizationIndicatio ns:severe chronic obstructive pulmonary disease,J44.9 Take 2 mLs by nebulization daily. Indications: worsening of debilitating chronic lung disease called COPD, J44.9 60 mL 12 07/11/2019 05/03/2020 fluticasone-umeclidin -vilanter 100-62.5-25 mcg Disk with Device Inhale 1 puff into the lungs daily. 28 each 07/10/2019 05/03/2020 LORazepam (ATIVAN) 1 mg TabletIndications:Sma ll cell lung cancer, right upper lobe Take one tab one hour prior to MRI 1 tablet 03/09/2019 05/03/2020 clopidogrel (PLAVIX) 75 mg tablet Take 1 tablet by mouth daily. 90 tablet 3 09/13/2013 07/30/2023 nitroGLYcerin (NITROSTAT) 0.[address] 1 tablet under the tongue every 5 minutes as needed. 25 tablet 12 09/13/2013 04/30/2021 hydrochlorothiazide (HYDRODIURIL) 25 mg tablet Take 25 mg by mouth every other day. 10/12/2023 albuterol-ipratropium (COMBIVENT) 18-103 mcg/Actuation inhaler 2 Puff(s), Inh, Twice daily 03/09/2006 05/03/2020 documented as of this encounter Plan of Treatment Upcoming Encounters Date Type Department Care Team (Late st Contact Info) Description 01/10/2024 7:45 AM EDT Appointment Hematology [place] [address] 01/21/2024 10:[address] [place] [address] Heber Phillips MD [facility] HEMATOLOGY/[place] [address] 03/28/2024 10:00 AM EDT Office Visit Hematology/Oncology at [address] [phone] Heber Phillips MD [facility] HEMATOLOGY/[place] [address] Isabella Baker APRN [facility] [place] [address] documented as of this encounter Procedures Procedure Name Priority Date/Time Associated Diagnosis Comments NM PET CT SKULL BASE TO MID-THIGH ([facility]) Routine 02/29/2020 10:55 AM EDT Small cell lung cancer, right upper lobe POCT GLUCOSE Routine 02/29/2020 9:16 AM EDT documented in this encounter Results * POCT Glucose (02/29/2020 9:16 AM EDT) POC Glucose 116 65 - 199 mg/dL [facility] Comment: Supplemental ranges: <140 mg/dL before meals <180 mg/dL all other times of the day Blood specimen (specimen) 02/29/2020 9:16 AM EDT 02/29/2020 9:16 AM EDT Heber Phillips MD POINT OF CARE TEST O RDERABLES [facility] [place] [address] documented in this encounter Visit Diagnoses Not on filedocumented in this encounter Care Teams Sap Payroll Consultant Relationship Specialty Start Date End Date Nataliya Messina MD [address] [place] [address] PCP - General 10/02/11 01/11/22 documented as of this encounter
--- OUTSIDE RECORDS SUMMARY | 2024-01-05 02:43 | XMS_ITS | Encounter Summary ---
Author Organization [facility] [address] Care Team Providers Care Oil Expeller Operator Name Role Phone Nataliya Messina MD Primary Care Provider [phone] Reason for Visit * Diagnostic Test (Routine) - Closed Specialty Diagnoses / Procedures Referred By Contac t Referred To Contact Radiology Diagnoses Small cell lung cancer, right upper lobe Small cell lung cancer Procedures NM PET CT Skull Base to Mid-thigh Heber Phillips MD [facility] DR HEMATOLOGY/[place] [address] [place] [address] Referral ID Status Reason Start Date Expiration Date V isits Requested Visits Authorized [id number] Closed Specialty Service Requested 03/05/2020 09/02/2021 1 1 Encounter Details Date Type Department Care Team (Latest Contact Info) Description 09/13/2020 10:43 AM EDT - 09/13/2020 11:59 PM EDT Hospital Encounter [place] [address] Heber Phillips MD [facility] HEMATOLOGY/[place] [address] Discharge Disposition: Home Social History [...] AM EDT Appointment Hematology [place] [address] 01/21/2024 10:[address] [place] [address] Heber Phillips MD [facility] HEMATOLOGY/[place] [address] 03/28/2024 10:00 AM EDT Office Visit Hematology/Oncology at [address] [phone] Heber Phillips MD [facility] HEMATOLOGY/[place] [address] Isabella Baker APRN [facility] [place] [address] documented as of this encounter Procedures Procedure Name Priority Date/Time Associated Diagnosis Comments NM PET CT SKULL BASE TO MID-THIGH ([facility]) Routine 09/13/2020 1:59 PM EDT Small cell lung cancer, right upper lobe Small cell lung cancer POCT GLUCOSE Routine 09/13/2020 1:01 PM EDT documented in this encounter Results * POCT Glucose (09/13/2020 1:01 PM EDT) POC Glucose 96 65 - 199 mg/dL [facility] Comment: Supplemental ranges: <140 mg/dL before meals <180 mg/dL all other times of the day Blood specimen (specimen) 09/13/2020 1:01 PM EDT 09/13/2020 1:01 PM EDT Heber Phillips MD POINT [place] [address] documented in this encounter Visit Diagnoses Not on filedocumented in this encounter Care Teams Oil Expeller Operator Relationship Specialty Start Date End Date Nataliya Messina MD [address] [place] [address] PCP - General 10/02/11 01/11/22 documented as of this encounter
--- OUTSIDE RECORDS SUMMARY | 2024-01-05 02:43 | XMS_ITS | Encounter Summary ---
Author Organization [facility] [place] [address] Care Team Providers Care Personal Injury Law Specialist Name Role Phone Nataliya Messina MD Primary Care Provider [phone] Reason for Referral * Diagnostic Test (Routine) - Closed Specialty Diagnoses / Procedures Referred By Contac t Referred To Contact Radiology Diagnoses Small cell lung cancer Small cell lung cancer, right upper lobe Procedures NM PET CT Skull Base to Mid-thigh Heber Phillips MD [facility] HEMATOLOGY/[place] [address] [place] [address] Referral ID Status Reason Start Date Expiration Date V isits Requested Visits Authorized [id number] Closed Specialty Service Requested 03/11/2021 09/08/2022 1 1 Encounter Details Date Type Department Care Team (Late st Contact Info) Description 03/11/2021 10:00 AM EDT Office Visit Hematology/Oncology at [address] [phone] Heber Phillips MD [facility] [place]EMATOLOGY/[place] [address] Mary Cleaning, RN Small cell lung cancer (Primary Dx); Iron deficiency anemia, unspecified iron deficiency anemia type; Small cell lung cancer, right upper lobe; SOB (shortness of breath) Social History Tobacco [...] Sign Reading Time Taken Comments Blood Pressure 131/59 03/11/2021 10:07 AM EDT Pulse 73 03/11/2021 10:07 AM EDT Temperature 36.4 ??C (97.6 ??F) 03/11/2021 10:07 AM E DT Respiratory Rate 20 03/11/2021 10:07 AM EDT Oxygen Saturation 97% 03/11/2021 10:07 AM EDT Inhaled Oxygen Concentration - - Weight 78 kg (172 lb) 03/11/2021 10:07 AM EDT Height 166.4 cm (5' 5.51) 03/11/2021 10:07 AM E DT Body Mass Index 28.18 03/11/2021 10:07 AM EDT documented in this encounter Progress Notes * Heber Phillips MD - 03/11/2021 10:00 AM EDT Images from the original [...] referred for consideration of definitive chemoradiation. Subjective (03/11/21): Mr. Tillman returns to the [facility] for follow up of small cell lungcancer and anemia. He underwent colonoscopy and endoscopy as a part of anemia work-up. No changes in dyspnea. Denies any pain. No fevers or chills. He does not smoke. He states he is using his inhalers every day. Denies any issues with his bowels. No constipation, diarrhea or blood in stool. PMH: Colonoscopy and upper endoscopy on February 21, 2021 [place] in 2013 status post 2 stents placement, [...] radiating to right leg ??? 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 Medications: Your Medications Accurate as of March 11, 2021 10:18 AM. If you have any questions, ask [...] 0 Wt Readings from Last 3 Encounters: 03/11/21 78 kg (172 lb) 02/21/21 79.8 kg (176 lb) 01/21/21 79.8 kg (176 lb) Review of Systems: Constitutional: Negative for [...] Neurological: Negative. Hematological: Negative for adenopathy. BP 131/59 (Patient Position: Sitting) Pulse 73 Temp 36.4 ??C (97.6 ??F) (Temporal) Resp 20 Ht 166.4 cm (5' 5.51) Wt 78 kg (172 lb) SpO2 97% BMI 28.18 kg/m?? Wt Readings from Last 3 Encounters: 03/11/21 78 kg (172 lb) 02/21/21 79.8 kg (176 lb) 01/21/21 79.8 kg (176 lb) Physical Exam Constitutional: He is oriented [...] normal. Judgment and thought content normal. Labs: 01/22/2021 LDH 170, ferritin 28, vitamin B12 [...] count 425, ANC 5.42 09/17/20- WBC-9.21 Hgb/Hct-11.9/36.1 [id number] ANC-6.94 03/05/2020 WBC 8.23, hemoglobin 14.6, platelet count 387, ANC 6.5, sodium 131, potassium 3.9, BUN 12, creatinine 1.01, calcium 9.3, TB 0.3, AST 26, ALT 38, alkaline phosphatase 112, total protein 7.5. 10/24/19 WBC 8.18, hemoglobin 13.3, platelet count 464, ANC 5.99 sodium 127, BUN 17, creatinine 1.13, calcium 8.9, AST 22, ALT 38, alkaline phosphatase 129, total protein 7.6, albumin 3.8. Imagin02/21/21 upper endoscopy: Impression: ?- Hiatal hernia - [...] including history of stroke, severe peripheralvascular disease, AK status post stent placement and COPD. His [...] No evidence of recurrent or metastatic malignancy. Near complete resolution of the previously seen inflammation or infection in the lingula. Previously identified increased activity in the cecum is not seen. ??MARISOL. Next PET scan and brain MRI in 4 months #Anemia: Upper endoscopic and colonoscopy did not reveal [...] see him back after colonoscopy and endoscopy. He is doing well with oncological standpoint. His main concern is dyspnea which is probably relatedto his chronic lung disease. PET show possible pneumonia - will have him follow up with his PCP whomanages his chronic lung disease. We will plan to repeat his surveillance PET scan in 3 months for comparison. It is negative for metastatic disease. We will continue observation see him back with surveillance PET scan and blood work in 3 months. It is also recommended he have a colonoscopy if he has not had one recently. #Depression: feels better on Celexa #Dyspnea/dry cough: Chronic lung disease managed by PCP. He may need to see a learning developer again. Plan: 1. Venofer 300 mg weekly x3 2. Next visit in 4 months with CBC, CMP, Ferritin, PET scan and brain MRI The plan was discussed with the patient in details. All questions were answered to patient's satisfaction. documented in this encounter Plan of Treatment Upcoming Encounters Date Type Department Care Team (Late st Contact Info) Description 01/10/2024 7:45 AM EDT Appointment Hematology [place] [phone] 01/21/2024 10:[address] [place] [address] Heber Phillips MD [facility] [address] HEMATOLOGY/[place] [address] 03/28/2024 10:00 AM EDT Office Visit Hematology/Oncology at [address] [phone] Heber Phillips MD [facility] HEMATOLOGY/[place] [address] Isabella Baker APRN [facility] [place] [address] documented as of this encounter Results * [...] have questions please contact the health care center manager that requested your imaging first. ? Narrative 07/08/2021 11:17 AM EST EXAMINATION: NM PET CT STANDARD SKULL BASE TO MID-THIGH CLINICAL HISTORY: Small cell lung cancer, assess treatment response Restaging of small cell lung cancer, status post concurrent chemoradiation in 2018. TECHNIQUE: Following IV injection of 35-fasjwm-1-deoxyglucose (FDG) a standard uptake of approximately 60 [...] chemoradiationin 2018. TECHNIQUE: Following IV injection of 38-erhgos-2-deoxyglucose (FDG) astandard uptake of approximately 60 minutes, [...] who have questions please contactthe health care center manager that requested your imaging first. Heber Phillips MD IMG PET ORDERABLES * Ferritin (07/08/2021 8:53 AM EST) Pathologist [facility] Ferritin 126 30 - 400 ng/mL [facility] Comment: Pediatric reference ranges [...] Phillips MD CHEMISTRY ORDERABLES Performing Organization Address City/State/[facility] Co de Phone Number [facility] [place] [address] * (ABNORMAL) Comprehensive metabolic panel (non-fasting) (07/08/2021 8:53 AM EST) [facility] Glucose Lvl 112 65 - 199 mg/dL [facility] Comment:Diabetes: >=200 mg/d L plus symptoms BUN 20 10 - 20 mg/dL [facility] Creatinine 0.93 0.80 - 1.50 mg/dL [facility] Sodium 133(L) 135 - 145 mmol/L [facility] Potassium 4.3 3.5 - 5.0 mmol/L [facility] Comment: Please note: ??Patients with WBC >100,000 may have falsely elevated Potassium levels. ??For accurate Potassium quantification in these patients send serum separator tube (gold top) for subsequent determinations. ??Contact the Clinical Chemistry Laboratory if there are any questions. Chloride 96(L) 98 - 107 mmol/L [facility] CO2 22 22 - 31 mmol/L [facility] Anion Gap 15 5 - 15 mmol/L [facility] Calcium 9.7 8.5 - 10.5 mg/dL [facility] Total Protein 6.9 6.1 - 8.0 g/dL [facility] Albumin 4.5 3.2 - 5.2 g/dL [facility] AST 18 0 - 39 unit/L [facility] ALT 26 0 - 55 unit/L [facility] Alk Phos 100 40 - 130 unit/L [facility] Total Bilirubin 0.5 0.2 - 1.3 mg/dL [facility] Estimated GFR 85 >=60 mL/min/1. 73 m?? [facility] Comment: This patient? s [...] In Lab Heber Phillips MD CHEMISTRY ORDERABLES [facility] [place] [address] documented in this encounter Visit Diagnoses Diagnosis Small cell lung cancer- Primary Malignant neoplasm of bronchus and lung, unspecified site Iron deficiency anemia, unspecified iron deficiency anemia type Small cell lung cancer, right upper lobe SOB (shortness of breath) Shortness of breath Small cell lung cancer Malignant neoplasm of bronchus and lung, unspecified site Small cell lung cancer, right upper lobe documented in this encounter Care Teams Personal Injury Law Specialist Relationship Specialty Start Date End Date Nataliya Messina MD [address] [place] [address] [address] [place] [address] PCP - General 10/02/11 01/11/22 documented as of this encounter
--- OUTSIDE RECORDS SUMMARY | 2024-01-05 02:43 | XMS_ITS | Encounter Summary ---
Author Organization [facility] Address [facility] [place] [address] Care Team Providers Care Communications Agent Name Role Phone Nataliya Messina MD Primary Care Provider [phone] Encounter Details Date Type Department Care Team (Late st Contact Info) Description 02/21/2021 1:50 PM EDT - 02/21/2021 2:50 PM EDT Surgery [place] [address] Anshu Ewing MD [facility] [place] [address] COLONOSCOPY, POLYPECTOMY, REMOVAL LESION BY SNARE (WRVU 4.57) Social History Tobacco Use Types Packs/Day Years [...] Sign Reading Time Taken Comments Blood Pressure 122/64 02/21/2021 2:30 PM EDT Pulse 88 02/21/2021 1:06 PM EDT Temperature 36.6 ??C (97.8 ??F) 02/21/2021 1:06 PM ED T Respiratory Rate 18 02/21/2021 2:30 PM EDT Oxygen Saturation 97% 02/21/2021 2:30 PM EDT Inhaled Oxygen Concentration - - Weight 79.8 kg (176 lb) 02/21/2021 1:06 PM EDT Height - - Body Mass Index 28.83 01/21/2021 9:55 AM EDT documented in this encounter Discharge Instructions * Discharge Instructions* Makayla Peoples RN - 02/21/2021 2:14 PM EDT Colonoscopy: What to Expect at Home Your Recovery Your doctor will talk to you about when you will need your next colonoscopy. Your doctor can help you decide how often you need to be checked. This will depend on the results of your test and your risk for colorectal cancer. After the test, you may be bloated or have gas pains. You may need to pass gas. If a biopsy was done or a polyp was removed, you may have streaks of blood in your stool (feces) for a few days. Problems such as heavy rectal bleeding may not occur until several weeks after the test. This isn't common. But it can happen after polyps are removed. This care sheet gives you a general idea about how long it will take for you to recover. But each person recovers at a different pace. Follow the steps below to get better as quickly as possible. How can you care for yourself at home? Activity Rest when you feel tired. ?? You can do your normal activities when it feels okay to do so. Diet ?? Follow your doctor's directions for eating. ?? Unless your doctor has told you not to, drink plenty of fluids. This helps to replace the fluidsthat were lost during the colon prep. ?? Do not drink alcohol. Medicines ?? Your doctor will tell you if and when you can restart your medicines. He or she will also give you instructions about taking any new medicines. ?? If you take blood thinners, such as warfarin (Coumadin), clopidogrel (Plavix), or aspirin, be sure to talk to your doctor. He or she will tell you if and when to start taking those medicines again. Make sure that you understand exactly what your doctor wants you to do. ?? If polyps were removed or a biopsy was done during the test, your doctor may tell you not to take aspirin or other anti-inflammatory medicines for a few days. These include ibuprofen (Advil, Motrin) and naproxen (Aleve). Other instructions ?? For your safety, do not drive or operate machinery until the medicine wears off and you can think clearly. Your doctor may tell you not to drive or operate machinery until the day after your test. ?? Do not sign legal documents or make major decisions until the medicine wears off and you can think clearly. The anesthesia can make it hard for you to fully understand what you are agreeing to. Additional Information for Sedation Patients For patients who received sedation: ?? You may have received medications before and/or during your procedure which effects your judgement and reaction time. ?? Do not drive, operate machinery, drink alcoholic beverages or make important decisions for 24 hours. ?? Be careful on stairs as you may be unsteady on your feet. ?? You may eat a regular diet as tolerated. ?? Do not smoke if you are alone. ?? IV site: Slight redness or tenderness is normal, you can use a warm compress if you would like. If tenderness and/or redness increase or if foul drainage occurs, please contact your Doctor. Please call [phone] before 8pm Mon-Fri with problems, questions or concerns. If you call after 8pm or on weekends, call the Hospital at [phone] and ask to speak to the Schedule Checker cone worker and the button decorating machine operator will contact that person for you. When should you call for help? Call 955 anytime you think you may need emergency care. For example, call if: ?? You passed out (lost consciousness). ?? You pass maroon or bloody stools. ?? You have trouble breathing. Call your doctor now or seek immediate medical care if: ?? You have pain that does not get better after you take pain medicine. ?? You are sick to your stomach or cannot drink fluids. ?? You have new or worse belly pain. ?? You have blood in your stools. ?? You have a fever. ?? You cannot pass stools or gas. Watch closely for changes in your health, and be sure to contact your doctor if you have any problems. Where can you learn more? [facility]- View your After Visit Summary and more online at [email or web address] If you would like to provide feedback about your hospital experience, please call the Office of Patient and Family Relations at . If you have received this After Visit Summary in error, please immediately return it in person to the department, or notify the [facility] Privacy Office by calling toll free at between the hours of 8AM and 5PM to arrange for our retrieval of the documents at no cost to you. Content Version: 12.2 ?? 8313-3572 [employer]. Care instructions adapted under license by [facility]. If you have questions about a medical condition or this instruction, always ask your healthcare professional. [employer] disclaims any warranty or liability for your use of this information. documented in this encounter Medications at Time [...] day. 10/12/2023 documented as of this encounter H&P Notes * Anshu Ewing MD - 02/21/2021 1:10 PM EDT PROBLEM LIST Patient Active Problem List Diagnosis Code ??? Low back pain radiating to right leg M54.5 ??? Stenosis of right carotid artery I65.21 ??? PVD (peripheral vascular disease) I73.9 ??? Chest pain R07.9 ??? Hypertension I10 ??? Hyperlipidemia E78.5 ??? Emphysema/COPD J43.9 ??? CAD (coronary artery disease) I25.10 ??? 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 Mass of upper lobe of right lung R91.8 ??? Small cell lung cancer, right upper lobe C34.11 ??? Dehydration E86.0 ??? Diverticulosis of colon without diverticulitis K57.30 ??? History of alcoholism F10.21 ??? History of left cataract extraction Z98.42 ??? Polyp of colon K63.5 HISTORY OF PRESENT ILLNESS Hieu Tillman is a 65 y.o. y/o who presents for colonoscopy/upper endoscopy for anemia. MEDICATIONS No current facility-administered medications on file prior to encounter. Current Outpatient Medications on File Prior to Encounter Medication Sig Dispense Refill ??? tamsulosin (Flomax) 0.4 mg Capsule TAKE [...] as needed. (Patient not taking: Reported on 09/17/2020) 25 tablet 12 ??? hydrochlorothiazide (HYDRODIURIL) 25 mg tablet Take 25 mg by mouth every other day. ??? FIBER CHOICE ORAL Take 1 tablet by mouth daily. ??? aspirin 81 mg EC tablet Take 81 mg by mouth daily. PHYSICAL EXAM: Blood pressure 145/59, pulse 88, temperature 36.6 ??C (97.8 ??F), temperature source Temporal, resp. rate 22, weight 79.8 kg (176 lb), SpO2 98 %. GEN: Alert, cooperative. Pleasant. In NAD MP I ASA II HEENT: No oropharyngeal lesions. Neck supple. No masses. Thyroid symmetric LUNGS: CTAB CARD: RRR without m/g/r RECENT LABS No results found for this or any previous visit (from the past 24 hour(s)). ASSESSMENT AND PLAN Hieu Tillman is a 65 y.o. y/o who presents for endoscopic evaluation. Risks extensively discussed including bleeding, infection, reaction to anesthesia, perforation,and/or other unforseen complication. Consent signed and patient well informed of the risks of the procedure. documented in this encounter Plan of Treatment Upcoming Encounters Date Type Department Care Team (Late st Contact Info) Description 01/10/2024 7:45 AM EDT Appointment Hematology [place] [address] 01/21/2024 10:[address] [place] [address] Heber Phillips MD [facility] [address] HEMATOLOGY/[place] [address] 03/28/2024 10:00 AM EDT Office Visit Hematology/Oncology at [address] [address] Heber Phillips MD [facility] [address] HEMATOLOGY/[place] [address] Isabella Baker APRN [facility] [place] [address] documented as of this encounter Procedures Procedure Name Priority Date/Time Associated Diagnosis Comments SPECIMEN TO PATHOLOGY Routine 02/21/2021 2:06 PM EDT SPECIMEN TO PATHOLOGY Routine 02/21/2021 2:06 PM EDT SPECIMEN TO PATHOLOGY Routine 02/21/2021 2:06 PM EDT SURGICAL PATHOLOGY REPORT Routine 02/21/2021 1:39 PM EDT Upper Gi Endoscopy, Biopsy ([id number]) 02/21/2021 1:29 PM EDT abnormal PET scan 'new small focus on FDG uptake in the cecum' KATHLEEN Colonoscopy, Remv Elvin, Snare ([id number]) 02/21/2021 1:29 PM EDT abnormal PET scan 'new small focus on FDG uptake in the cecum' KATHLEEN UPPER GI ENDOSCOPY Routine 02/21/2021 1: 09 PM EDT COLONOSCOPY Routine 02/21/2021 1:08 PM EDT documented in this encounter Results * Specimen to Pathology (02/21/2021 2:06 PM EDT) AP Specimen 02/21/2021 2:06 PM EDT 02/21/2021 2:06 PM EDT Narrative [facility] - 02/21/2021 2:06 PM EDT Specimen requisition ordered. ??Separate Pathology report to follow Anshu Ewing MD PATHOLOGY/CYTOLOGY ORDERABLES Performing Organization Address [facility]/[place] [address] * Specimen to Pathology (02/21/2021 2:06 PM EDT) AP Specimen 02/21/2021 2:06 PM EDT 02/21/2021 2:06 PM EDT Narrative [facility] - 02/21/2021 2:06 PM EDT Specimen requisition ordered. ??Separate Pathology report to follow Anshu Ewing MD PATHOLOGY/CYTOLOGY ORDERABLES Performing Organization Address [facility]/[place] [address] * Specimen to Pathology (02/21/2021 2:06 PM EDT) AP Specimen 02/21/2021 2:06 PM EDT 02/21/2021 2:06 PM EDT Narrative [facility] - 02/21/2021 2:06 PM EDT Specimen requisition ordered. ??Separate Pathology report to follow Anshu Ewing MD PATHOLOGY/CYTOLOGY ORDERABLES Performing Organization Address [facility]/ZIP Co de Phone Number [facility] [place] [place] [address] * Surgical Pathology Report (02/21/2021 1:39 PM EDT) Pathologist [facility] Surgical Pathology Report [id number] ? Location: 4T; EA07; A The signing pathologist has (i) examined the relevant preparation(s) for the specimen(s) and (ii) rendered or confirmed the diagnosis(es). . ?Surgical Pathology DIAGNOSIS A - Stomach, biopsy (Multiple): Gastric fundic gland mucosa with nonspecific parietal cell alterations of the type sometimes seen in hypergastrinemic conditions or in patients on PPI therapy. No H. pylori-like microorganism is seen. Separate fragments of ?? duodenal mucosa are present with ??foveolar metaplasia and Crystal's gland hyperplasia, suggestive of peptic-type duodenitis. B - Descending colon polyp, excision: Tubular adenoma. Electronically signed by: ?Angie Kennedy MD Verified: ??02/28/2021 20:31 ??Pathologist Performed at: ??-[facility] Dept. of Pathology, [place], [place] SPECIMEN(S) SUBMITTED A - Stomach H. PYLORI, biopsy (Multiple) B - Descending colon polyp 3mm, excision (1) CLINICAL INFORMATION 65-year-old male with iron deficiency anemia SPECIMEN PROCESSING A - Labeled/Fixative: Stomach H. pylori, formalin. Quantity/Size: Five, averaging 0.3 cm. Tissue Description: Soft, pink tissues. Sections/Processing : Submitted en toto ??in 1 cassette labeled A1. B - Labeled/Fixative: Descending colon polyp 3 mm, formalin. Quantity/Size: Single, 0.2 cm. Tissue Description: Soft, pink tissue. Sections/Processing : Submitted en toto ??in 1 cassette labeled B1. ??[facility] [place] [facility] 02/21/2021 1:39 PM EDT Anshu Ewing MD PATHOLOGY/CYTOLOGY ORDERABLES [facility] [place] [place] [address] * UPPER GI ENDOSCOPY (02/21/2021 1:09 PM EDT) UPPER GI ENDOSCOPY [facility] Endoscopy Procedure Date: 02/21/2021 1:09 PM ? Patient Name: Hieu Tillman ? Date of : 1955 ? Age: 65 ? Order #: [id number] ? Instrument Name: [id number] ? Procedure: ? Upper GI endoscopy Indications: ? Iron deficiency anemia Providers: ? Anshu Ewing MD, Florentin Martinez ? , BOB, Amie Max, ? Operations Support Specialist Referring MD: ?Nataliya Messina MD Medicines: ? [...] and ? adverse medication reactions. The ? Endoscope was introduced through the ? mouth, and advanced to the third part ? of duodenum. The patient tolerated ? the procedure well. The upper GI ? endoscopy was accomplished without ? difficulty. The patient tolerated the ? procedure well. ? Findings: ? The esophagus was normal with the exception of a ? hiatal hernia from 36-38 cm. ? The stomach was normal. Random biopsies were taken ? from the stomach (and one for the duodenum ) for h. ? pylori. ? The examined duodenum was normal. ? Moderate Sedation: ? Not applicable - See Anesthesia documentation Impression: ?- Hiatal hernia - otherwise normal ? exam Recommendation: ?- Await pathology results ? Procedure Code(s): ?? --- Professional --- ? 78199, Esophagogastroduod enoscopy, ? flexible, transoral; diagnostic, ? including collection of specimen(s) ? by brushing or washing, when ? performed (separate procedure) CPT copyright 2019 [employer]. All rights reserved. The codes documented in this report are preliminary and upon computer language coder review may be revised to meet current compliance requirements. Attending Participation: ? I personally performed the entire procedure. ? ___ Anshu Ewing MD 02/21/2021 1:47:41 PM This report has been signed electronically. Number of Addenda: 0 Note Initiated On: 02/21/2021 1:09 PM PROVATION 02/21/2021 1:09 PM EDT Nataliya Messina MD GENERAL SURGICAL OR DERABLES PROVATION * COLONOSCOPY (02/21/2021 1:08 PM EDT) COLONOSCOPY [facility] Endoscopy Procedure Date: 02/21/2021 1:08 PM ? Patient Name: Hieu Tillman ? Date of : 1955 ? Age: 65 ? Order #: [id number] ? Instrument Name: [id number] ? Procedure: ? Colonoscopy Indications: ? High risk colon cancer surveillance: ? Personal history of colonic polyps, ? Incidental - Abnormal PET scan of the ? GI tract Providers: ? Anshu Ewing MD, Florentin Meng. ? BOB Arrieta, Amie Max, ? Operations Support Specialist Referring MD: ?Nataliya Messina MD Medicines: ? [...] Procedure Code(s): ?? --- Professional --- ? 96376, Colonoscopy, flexible; with ? removal of tumor(s), polyp(s), or ? other lesion(s) by snare technique CPT copyright 2019 [employer]. All rights reserved. The codes documented in this report are preliminary and upon computer language coder review may be revised to meet current compliance requirements. Attending Participation: ? I personally performed the entire procedure. ? ___ Anshu Ewing MD 02/21/2021 2:08:20 PM This report has been signed electronically. Number of Addenda: 0 Note Initiated On: 02/21/2021 1:08 PM PROVATION 02/21/2021 1:08 PM EDT Nataliya Messina MD GENERAL SURGICAL OR DERABLES PROVATION documented in this encounter Visit Diagnoses Not on filedocumented in this encounter Administered Medications Inactive Administered Medications - up to 3 most recent administrations Medication Order MAR Action Action Date Dose Rate Site lactated ringers infusion 100 mL/hr, Intravenous, CONTINUOUS, Starting on Wed02/21/21 at 1315, Until Wed02/21/21 at 1431, Endoscopy (Day of Procedure) New Bag 02/21/2021 1:15 PM EDT 100 mL/hr 100 mL/hr documented in this encounter Active and Recently Administered Medications Times are shown in EDT. Continuous Medication Order 02/19/2021 02/20/2021 02/21/2021 lactated ringers infusion (CANCELED) 100 mL/hr, Intravenous, CONTINUOUS, Starting on Wed02/21/21 at 1315, Until Wed02/21/21 at 1431, Endoscopy (Day of Procedure) 1315 (New Bag - Prov ider: Razia Hurst RN) documented in this encounter Care Teams Communications Agent Relationship Specialty Start Date End Date Nataliya Messina MD [address] [place] [address] PCP - General 10/02/11 01/11/22 documented as of this encounter
--- OUTSIDE RECORDS SUMMARY | 2024-01-05 02:43 | XMS_ITS | Encounter Summary ---
Author Organization [facility] [place] [address] Care Team Providers Care Second Shift Supervisor Name Role Phone Nataliya Messina MD Primary Care Provider [phone] Encounter Details Date Type Department Care Team (Late Contact Info) Description 10/20/2019 Telephone Hematology/Oncology at [address] [address] Johana Slater Social History Tobacco Use Types Packs/Day Years [...] encounter Miscellaneous Notes * Telephone Encounter - Johana Slater - 10/20/2019 12:08 PM EDT I called Hieu to remind him to have labs on Wednesday at [facility] and to confirm his visit with Dr. Phillips will be a phone visit. documented in this encounter Plan of Treatment Upcoming Encounters Date Type Department Care Team (Late Contact Info) Description 01/10/2024 7:45 AM EDT Appointment Hematology [place] [phone] 01/21/2024 10:[address] [place] [address] Heber Phillips MD [facility] [address] HEMATOLOGY/[place] [address] 03/28/2024 10:00 AM EDT Office Visit Hematology/Oncology at [address] [address] Heber Phillips MD [facility] HEMATOLOGY/[place] [address] Isabella Baker APRN [facility] [place] [address] documented as of this encounter Visit Diagnoses Not on filedocumented in this encounter Care Teams Second Shift Supervisor Relationship Specialty Start Date End Date Nataliya Messina MD [address] [place] [address] PCP - General 10/02/11 01/11/22 documented as of this encounter
--- OUTSIDE RECORDS SUMMARY | 2024-01-05 02:43 | XMS_ITS | Encounter Summary ---
Author Organization [facility] Address [facility] [place] [address] Care Team Providers Care Sprinkler Fitter Helper Name Role Phone Nataliya Messina MD Primary Care Provider [phone] Reason for Visit * Reason Comments IV Access venofer * Treatment/Therapy Plan Authorization (Routine) - Closed Specialty Diagnoses / Procedures Referred By Keven lozano Referred To Contact Diagnoses Iron deficiency anemia, unspecified iron deficiency anemia type Heber Phillips MD [facility] HEMATOLOGY/[place] [address] St Hem Onc Office [address] [place] [phone] Referral ID Status Reason Start Date Expiration Date Visits Re quested Visits Authorized [id number] Closed 03/11/2021 03/11/2022 99 99 Encounter Details Date Type Department Care Team (Late st Contact Info) Description 03/25/2021 1:00 PM EDT Infusion Hematology Oncology at [address] [address] Iron deficiency anemia, unspecified iron [...] Sign Reading Time Taken Comments Blood Pressure 142/48 03/25/2021 12:53 PM EDT Pulse 92 03/25/2021 12:53 PM EDT Temperature 36.9 ??C (98.4 ??F) 03/25/2021 12:53 PM E DT Respiratory Rate 20 03/25/2021 12:53 PM EDT Oxygen Saturation 95% 03/25/2021 12:53 PM EDT Inhaled Oxygen Concentration - - Weight 78.6 kg (173 lb 3.2 oz) 03/25/2021 12:53 PM EDT Height 168.3 cm (5' 6.25) 03/25/2021 12:53 PM E DT Body Mass Index 27.74 03/25/2021 12:53 PM EDT documented in this encounter Progress Notes * Radha Gorman RN - 03/25/2021 1:00 PM EDT INFUSION THERAPY ADMINISTRATION NOTES DIAGNOSIS: Iron Deficiency REASON FOR VISIT: Venofer SUBJECTIVE Hieu Tillman offers no complaints. OBJECTIVE Oncology Vitals 03/18/2021 Weight (kg) 78.6 Weight (lb) Height BSA (Calculated - sq m) BMI (Calculated) Temp 36.9 Temp src temporal Pulse 92 Heart Rate Source NIBP Resp BP 142/48 BP Location Right arm Patient Position sitting SpO2 95% Pain Level 0 Karnofsky Score Motor Neuropathy Sensory Neuropathy LAB DATA: From 01/22/: H/H = 10.8/34.3, Iron 35, Transferrin % SAT = 8 REACTIONS (DESCRIPTION, TIME, INTERVENTION AND EFFECTIVENESS) None ASSESSMENT Hieu Tillman was awake, alert and tolerated treatment well. Patient remained in clinic for 30 min post infusion to monitor for reactions. Port flushed with 20 cc's of NS and 500 units of heparin and de-accessed. PLAN Return to clinic per plan. documented in this encounter Plan of Treatment Upcoming Encounters Date Type Department Care Team (Late st Contact Info) Description 01/10/2024 7:45 AM EDT Appointment Hematology [place] [address] 01/21/2024 10:[address] [place] [address] Heber Phillips MD [facility] HEMATOLOGY/[place] [address] 03/28/2024 10:00 AM EDT Office Visit Hematology/Oncology at [address] [address] Heber Phillips MD [facility] HEMATOLOGY/[place] [address] Isabella Baker APRN [facility] [place] [address] documented as of this encounter Visit Diagnoses Diagnosis Iron deficiency anemia, unspecified iron deficiency anemia type documented in this encounter Administered Medications Inactive Administered Medications - up to 3 most recent administrations Medication Order MAR Action Action Date Dose Rate Site acetaminophen (Tylenol) tablet 975 mg 975 mg (rounded from 1,000 mg), Oral, ONCE, 1 dose, On Wed03/25/21 at 1315, Give prior to patient's infusion., Routine Given 03/25/2021 1:23 PM EDT 975 mg diphenhydrAMINE (Benadryl) capsule 25 mg 25 mg, Oral, ONCE, 1 dose, On Wed03/25/21 at 1315, Give Benadryl 25 mg PO prior to the patient's Venofer infusion., Routine Given 03/25/2021 1:23 PM EDT 25 mg hydrocortisone sod succ (pf) (Solu-CORTEF) (100 mg/2 mL) injection 100 mg 100 mg, Intravenous, ONCE, 1 dose, On Wed03/25/21 at 1315, Give prior to patient's infusion. Given 03/25/2021 1:24 PM EDT 100 mg iron sucrose (Venofer) 300 mg in sodium chloride 0.9% 115 mL infusion 300 mg, Intravenous, ONCE, 1 dose, On Wed03/25/21 at 1315, Administer over 90 Minutes, Patients should be closely monitored for signs of hypersensitivity during and for at least 30 min after each administration. The observation period is not needed for patients who have demonstrated tolerability. New Bag 03/25/2021 1:48 PM EDT 300 mg 76.7 mL/hr documented in this encounter Care Teams Sprinkler Fitter Helper Relationship Specialty Start Date End Date Nataliya Messina MD [address] [place] [address] [address] [facility] [address] [place] [address] PCP - General 10/02/11 01/11/22 documented as of this encounter
--- OUTSIDE RECORDS SUMMARY | 2024-01-05 02:43 | XMS_ITS | Encounter Summary ---
Author Organization [facility] [place] [address] Care Team Providers Care Director Of Intelligence Name Role Phone Nataliya Messina MD Primary Care Provider [phone] Encounter Details Date Type Department Care Team (Late Contact Info) Description 10/01/2020 Telephone [place] [phone] Latanya Murguia Social History Tobacco Use Types Packs/Day Years [...] AM EDT Appointment Hematology [place] [phone] 01/21/2024 10:[address] [place] [phone] Heber Phillips MD [facility] HEMATOLOGY/[place] [address] 03/28/2024 10:00 AM EDT Office Visit Hematology/Oncology at [address] [phone] Heber Phillips MD [facility] DR HEMATOLOGY/[place] [address] Isabella Baker APRN [facility] [place] [address] documented as of this encounter Visit Diagnoses Not on filedocumented in this encounter Care Teams Director Of Intelligence Relationship Specialty Start Date End Date Nataliya Messina MD [address] [place], [place] [address] PCP - General 10/02/11 01/11/22 documented as of this encounter
--- OUTSIDE RECORDS SUMMARY | 2024-01-05 02:43 | XMS_ITS | Encounter Summary ---
Author Organization [facility] Address [facility] [place] [address] Care Team Providers Care Senior Graduate Advisor Name Role Phone Nataliya Messina MD Primary Care Provider [phone] Reason for Visit * Reason Comments IV Medication Venofer, 1st of 3 we ekly doses * Treatment/Therapy Plan Authorization (Routine) - Closed Specialty Diagnoses / Procedures Referred By Keven lozano Referred To Contact Diagnoses Iron deficiency anemia, unspecified iron deficiency anemia type Heber Phillips MD [facility] HEMATOLOGY/[place] [address] [facility] Hem Onc Office [address] [place] [phone] Referral ID Status Reason Start Date Expiration Date Visits Re quested Visits Authorized [id number] Closed 03/11/2021 03/11/2022 99 99 Encounter Details Date Type Department Care Team (Late st Contact Info) Description 03/18/2021 1:00 PM EDT Infusion Hematology Oncology at [address] [phone] Iron deficiency anemia, unspecified iron [...] Sign Reading Time Taken Comments Blood Pressure 113/52 03/18/2021 12:58 PM EDT Pulse 91 03/18/2021 12:58 PM EDT Temperature 36.5 ??C (97.7 ??F) 03/18/2021 12:58 PM E DT Respiratory Rate 20 03/18/2021 12:58 PM EDT Oxygen Saturation 98% 03/18/2021 12:58 PM EDT Inhaled Oxygen Concentration - - Weight - - Height - - Body Mass Index - - documented in this encounter Progress Notes * Sintia Fry RN - 03/18/2021 1:00 PM EDT INFUSION THERAPY ADMINISTRATION NOTES DIAGNOSIS: Iron Deficiency REASON FOR VISIT: Venofer SUBJECTIVE Hieu Tillman offers no complaints. OBJECTIVE Oncology Vitals 03/18/2021 Weight (kg) Weight (lb) Height BSA (Calculated - sq m) BMI (Calculated) Temp 97.7 Temp src 101 Pulse 91 Heart Rate Source NIBP Resp 20 BP 113/52 BP Location Right arm Patient Position Sitting SpO2 98 Pain Level 0 Karnofsky Score Motor Neuropathy Sensory Neuropathy LAB DATA: From 01/22/21: H/H = 10.8/34.3, Iron 35, Transferrin % SAT = 8 Pre administration: Chemotherapy orders independently verified for drug name, route, and dosage per patient's height, weight and BSA by SINTIA FRY RN & On-site pharmacist. REACTIONS (DESCRIPTION, TIME, INTERVENTION AND EFFECTIVENESS) None ASSESSMENT Hieu Tillman was awake, alert and tolerated treatment well. Patient remained in clinic for 30 min post infusion to monitor for reactions. Port flushed with 20 cc's of NS and 500 units of heparin and de-accessed. PLAN Return to clinic next week for the second of three scheduled infusions. documented in this encounter Plan of Treatment Upcoming Encounters Date Type Department Care Team (Late st Contact Info) Description 01/10/2024 7:45 AM EDT Appointment [place]ematology [place] [address] 01/21/2024 10:[address] [place] [address] Heber Phillips MD [facility] HEMATOLOGY/[place] [address] 03/28/2024 10:00 AM EDT Office Visit Hematology/Oncology at [address] [phone] Heber Phillips MD [facility] HEMATOLOGY/[place] [address] Isabella Baker APRN [facility] [place] [address] documented as of this encounter Visit Diagnoses Diagnosis Iron deficiency anemia, unspecified iron deficiency anemia type documented in this encounter Administered Medications Inactive Administered Medications - up to 3 most recent administrations Medication Order MAR Action Action Date Dose Rate Site acetaminophen (Tylenol) tablet 975 mg 975 mg (rounded from 1,000 mg), Oral, ONCE, 1 dose, On Wed03/18/21 at 1330, Give prior to patient's infusion., Routine Given 03/18/2021 1:17 PM EDT 975 mg diphenhydrAMINE (Benadryl) capsule 25 mg 25 mg, Oral, ONCE, 1 dose, On Wed03/18/21 at 1330, Give Benadryl 25 mg PO prior to the patient's Venofer infusion., Routine Given 03/18/2021 1:17 PM EDT 25 mg hydrocortisone sod succ (pf) (Solu-CORTEF) (100 mg/2 mL) injection 100 mg 100 mg, Intravenous, ONCE, 1 dose, On Wed03/18/21 at 1330, Give prior to patient's infusion. Given 03/18/2021 1:17 PM EDT 100 mg iron sucrose (Venofer) 300 mg in sodium chloride 0.9% 115 mL infusion 300 mg, Intravenous, ONCE, 1 dose, On Wed03/18/21 at 1330, Administer over 90 Minutes, Patients should be closely monitored for signs of hypersensitivity during and for at least 30 min after each administration. The observation period is not needed for patients who have demonstrated tolerability. New Bag 03/18/2021 1:35 PM EDT 300 mg 76.7 mL/hr documented in this encounter Care Teams Senior Graduate Advisor Relationship Specialty Start Date End Date Nataliya Messina MD [address] [place] [address] [address] [place] [address] PCP - General 10/02/11 01/11/22 documented as of this encounter
--- OUTSIDE RECORDS SUMMARY | 2024-01-05 02:43 | XMS_ITS | Encounter Summary ---
[place] [address] Care Team Providers Care Wall Washer Name Role Phone Nataliya Messina MD Primary Care Provider [phone] Encounter Details Date Type Department Care Team (Late st Contact Info) Description 10/27/2019 Telephone [place] [address] Johana Francois RT Social History Tobacco Use Types Packs/Day Years [...] Miscellaneous Notes * Telephone Encounter - Johana Francois RT - 10/27/2019 10:52 AM EDT Called Hieu Tillman at home and LM to call pulmonary rehab to discuss potential pulmonary rehab programs closer to him to coordinate referral documented in this encounter Plan of Treatment Upcoming Encounters Date Type Department Care Team (Late st Contact Info) Description 01/10/2024 7:45 AM EDT Appointment Hematology [place] [phone] 01/21/2024 10:[address] [place] [address] Heber Phillips MD [facility] DR HEMATOLOGY/[place] [address] 03/28/2024 10:00 AM EDT Office Visit Hematology/Oncology at [address] [phone] Heber Phillips MD [facility] HEMATOLOGY/[place] [address] Isabella Baker APRN [facility] [place] [address] documented as of this encounter Visit Diagnoses Not on filedocumented in this encounter Care Teams Wall Washer Relationship Specialty Start Date End Date Nataliya Messina MD [address] [place] [address] PCP - General 10/02/11 01/11/22 documented as of this encounter
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
--- OUTSIDE RECORDS SUMMARY | 2024-01-05 02:43 | XMS_ITS | Encounter Summary ---
Author Organization [facility] [place] [address] Care Team Providers Care Frame Operator Name Role Phone Nataliya Messina MD Primary Care Provider [phone] Encounter Details Date Type Department Care Team (Late st Contact Info) Description 02/21/2021 1:29 PM EDT Anesthesia [place] [phone] Ami Sanchez MD [facility] [place] [address] Vianca Contreras CRNA [facility] [place] [address] Anesthesia Record Procedure Summary Procedure Name Responsible Anesthesiologist Anesthesia Start Time Anesthesia Stop Time COLONOSCOPY, POLYPECTOMY, REMOVAL LESION BY SNARE (WRVU 4.57) (Trunk) Ami Sanchez MD 02/21/21 1329 02/21/21 1416 Events Date Time Event Comment 02/21/2021 1313 1329 AN Verify 1329 Start 1329 An Start Data 1333 An Induction 1337 Anesthesia Ready 1416 an stop data 1416 Recovery or ICU Handoff Mariela ent care was transferred to the destination unit staff after review of the patient's medical history, current anesthetic/surgical status and plan, according to the Provider Handoff Checklist. 1416 Stop Meds Name Total IV Lidocaine 60 mg Propofol 100 mg Propofol INF 385.04 mg PHENYLephrine 160 mcg Lactated Ringers 200 mL * Agents Name O2 Air N2O O2 Auxiliary Flowmeter 1 * Blood No blood administrations on file. Lines, Drains, and Airways Type Details Placement Removal ETT Mask Ventilation: Ad junct (2); ETT Type: Cuffed; ETT Size: 8.5 mm; Mac Blade: 4; Attempts: 1; ETT Placement Verified By: Visual, Auscultation, Capnometry 01/05/18 0909 by Tanya Escobar (RETIRED) Implanted Port - Single Lumen (non-apheresis) 01/26/18; 0908; infraclavicular fossa, right; power injectable port; superior vena cava; Ami Rivera APRN; Lot # [id number], Ref #[id number] 01/26/18 0908 by Arabella Chacon RN Incision 10/20/16; 1352; neck (carotid); 02/16/22 (LDA cleanup utility RA#[id number]); 1715 (LDA cleanup utility RA#[id number]) 10/20/16 1352 by Sandy Avlarez RN 02/16/22 1715 by Zeinab Govea Incision 01/26/18; chest; horizontal; mediport insertion site; 02/16/22 (LDA cleanup utility RA#[id number]); 1715 (LDA cleanup utility RA#[id number]) 01/26/18 0000 by Arabella Chacon RN 02/16/22 1715 by Zeinab Govea Incision 01/26/18; neck; laparoscopic puncture; venous access site for mediport; 02/16/22 (LDA cleanup utility RA#[id number]); 1715 (LDA cleanup utility RA#[id number]) 01/26/18 0000 by Arabella Chacon RN 02/16/22 1715 by Zeinab Govea (RETIRED) Peripheral IV Line - Single Lumen 02/21/21; 1319; cephalic vein (lateral side of arm), right; taby-roz-qsknwe catheter system; Anatomical Landmarks; 20 gauge; distraction, intradermal injection, tolerated well; 02/21/21; 1431 02/21/21 1319 by Razia Hurst RN 02/21/21 1431 by Makayla Peoples RN documented in this encounter Social History [...] of this encounter OR Notes * Anesthesia Postprocedure Evaluation - Ami Sanchez MD - 02/21/2021 5:35 PM EDT Department of Anesthesiology Post-procedure Note Patient: Hieu Tillman Procedure Summary Date: 02/21/21 Room / [facility] Anesthesia Start: 1329 Anesthesia Stop: 1416 Procedures: COLONOSCOPY, POLYPECTOMY, REMOVAL LESION BY SNARE (WRVU 4.67) (N/A Trunk) EGD WITH BIOPSY (WRVU 2.49) (N/A Trunk) Diagnosis: (abnormal PET scan 'new small focus on FDG uptake in the cecum') (KATHLEEN) Surgeons: Anshu Ewing MD Responsible Provider: Ami Sanchez MD Anesthesia Type: MAC ASA Status: 3 All Anesthesia Providers: Anesthesiologist: Ami Sanchez MD HEAD INSPECTOR: Vianca Contreras CRNA Vitals Value Taken Time BP 122/64 02/21/21 1430 Temp Pulse Resp 18 02/21/21 1430 SpO2 97 % 02/21/21 1430 Pain Level 0 02/21/21 1430 Patient Location: PACU/[facility] Level of Consciousness: Awake and Alert Pain Management: Satisfactory Analgesia PONV: None Cardiovascular Status: At Baseline and Hemodynamically Stable Respiratory Status: At Baseline and Room Air Postoperative Fluid Status: Intravascular EUvolemia Possible Anesthetic Complications: NONE apparent at time of evaluation Final Primary Anesthesia Type: General (The anesthetic type performed was the same as planned.) Comments: AMI SANCHEZ MD * Anesthesia Preprocedure Evaluation - Ami Sanchez MD - 02/21/2021 1:08 PM EDT Pre-Anesthesia Evaluation for: Hieu Tillman a 65 y.o. male. Procedure(s): COLONOSCOPY, DIAGNOSTIC, EGD Patient Active Problem List Diagnosis ??? Diverticulosis [...] radiating to right leg ??? Myocardial infarction [place] about 6 years ago @ [facility] [place] ??? PVD (peripheral [...] ANGIOPLASTY WITH STENT PLACEMENT ? ? PRO [facility] EBUS GUIDED SAMPL 3/> NODE STATION/STRUX N/A 01/05/2018 BRONCH, W ENDOBRONCHIAL ULTRASOUND (EBUS) GUIDED SAMPLING, 3+ NODES (WRVU 5.21) performed by Kingsley Ortiz MD at [facility] ??? PRO THROMBOENDARTECTMY NECK, NECK INCIS Right 10/20/2016 @ENDARTERECTOMY, CAROTID, VERTEBRAL,SUBCLAVIAN W\WO PATCH GRAFT (WRVU 21.16) performed by Omero Wills MD at [facility] Social History Tobacco Use ??? Smoking status: Former Smoker Packs/day: 2.00 Years: 47.00 Pack years: 94.00 Types: Cigarettes Quit date: 09/11/2013 Years since quittin.4 ??? Smokeless tobacco: Never Used Substance Use [...] or temperature recorded. Height: Weight: BMI: IBW: Airway Assessment: Mallampati: III TM distance: >3 FB Neck ROM: full Cardiovascular Assessment: Rhythm: regular Pulmonary Assessment: breath sounds clear to auscultation Dental Assessment: (+) lower dentures and upper dentures Misc Assessment: IV access: Peripheral line Last Filed Perioperative Cognitive Screening None Anesthesia Plan: ASA 3 MAC, with a(n) intravenous induction This is a preliminary note Hieu Tillman is a 65 y.o. BMI 30 male presenting for colonoscopy, and EGD. Pt has a PMH of CAD s/p DC in 2013, HTN, HLD, COPD, PVD, and [...] backup Standard ASA monitoring Adequate IV access AMI SANCHEZ MD Region - Other Informed Consent: Anesthetic plan and risks discussed with patient. Plan discussed with HEAD INSPECTOR. Pre-Anesthesia Evaluation for: Hieu Tillman a 65 y.o. male. Procedure(s): BRONCH, W ENDOBRONCHIAL ULTRASOUND (EBUS) GUIDED SAMPLING, 3+ NODES (WRVU 5.21) Patient Active Problem List Diagnosis ??? Diverticulosis [...] radiating to right leg ??? Myocardial infarction DC about 6 years ago @ [facility] [place] ??? PVD (peripheral [...] ANGIOPLASTY WITH STENT PLACEMENT ? ? PRO [facility] EBUS GUIDED SAMPL 3/> NODE STATION/STRUX N/A 01/05/2018 BRONCH, W ENDOBRONCHIAL ULTRASOUND (EBUS) GUIDED SAMPLING, 3+ NODES (WRVU 5.21) performed by Kingsley Ortiz MD at [facility] ??? PRO THROMBOENDARTECTMY NECK, NECK INCIS Right 10/20/2016 @ENDARTERECTOMY, CAROTID, VERTEBRAL,SUBCLAVIAN W\WO PATCH GRAFT (WRVU 21.16) performed by Omero Wills MD at [facility] Social History Tobacco Use ??? Smoking status: Former Smoker Packs/day: 2.00 Years: 47.00 Pack years: 94.00 Types: Cigarettes Quit date: 09/11/2013 Years since quittin.4 ??? Smokeless tobacco: Never Used Substance Use Topics ??? 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 Contrast [Iodine And Iodide Containing Products] Anaphylaxis and Hives He has tolerated IV dye since with premedication. History of anaphylaxis as well. Medications: MAR and/or home medications have been reviewed. Physical Exam: No data found. There is no height or weight on file to calculate BMI. Airway Assessment: Mallampati: II TM distance: >3 FB Neck ROM: full Cardiovascular Assessment: Pulmonary Assessment: Dental Assessment: (+) upper dentures and lower dentures Misc Assessment: Anesthesia Plan: ASA 3 general, with a(n) intravenous induction 62 y.o. 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 62yo M with h/o COPD, CAD s/p DC 2013 and PTCA to LCx x2, HTN, HL, PVD, CVA s/p carotid endarterectomy 2016, presenting for EBUS, biopsy of R upper lobe mass. No other cardiac or pulmonary problems. No recent URI. No GERD (asymptomatic in preop). No problems with anesthesia in the past. Mac 4 Gr1, mask with OA Meds: reviewed, includes: takes Breo ellipta daily, combivent a few times a week as rescue, took metoprolol yesterday afternoon NPO status adequate Last value Range last 24 hrs Heart Rate Heart Rate: 77 Heart Rate: (77) Blood Pressure BP: 138/65 BP: (138)/(65) Respiratory Rate Resp: -- SpO2 SpO2: 100 % SpO2: (100 %) Art BP BP (Arterial Line): -- Plan: - preop Tylenol - standard ASA monitors, PIV - GETA - preop Combivent The patient was informed of the risks, benefits and alternatives of anesthesia. These risks included, but were not limited to, post-operative nausea and/or vomiting, pain, sore throat, dental/lip injury, and other rare but serious complications such as cardiac instability/arrest, neurologic event, awareness, severe allergic reactions, position-related nerve injuries, and need blood transfusions. All questions sought and answered. Consent was signed and placed in chart. Racquel Juan MD 01/05/2018 Region - Other Informed Consent: Anesthetic plan and risks discussed with patient. Use of blood products discussed with patient who consented to blood products. Plan discussed with resident and attending. PAT Staff Note Anesthesia Screening documented in this encounter Plan of Treatment Upcoming Encounters Date Type Department Care Team (Late st Contact Info) Description 01/10/2024 7:45 AM EDT Appointment Hematology [place] [address] 01/21/2024 10:[address] [place] [address] Heber Phillisp MD [facility] DR HEMATOLOGY/[place] [address] 03/28/2024 10:00 AM EDT Office Visit Hematology/Oncology at [address] [address] Heber Phillips MD [facility] DR HEMATOLOGY/[place] [address] Isabella Baker APRN [facility] [place] [address] documented as of this encounter Visit Diagnoses Not on filedocumented in this encounter Administered Medications Inactive Administered Medications - up to 3 most recent administrations Medication Order MAR Action Action Date Dose Rate Site lactated ringers infusion Intravenous, CONTINUOUS PRN, Starting on Wed02/21/21 at 1329, Until Wed02/21/21 at 1416, Anesthesia Intra-op New Bag 02/21/2021 1:29 PM EDT lidocaine (pf) (Xylocaine) (20 mg/mL) 2% injection syringe Intravenous, PRN, Starting on Wed02/21/21 at 1333, Until Wed02/21/21 at 1416, Anesthesia Intra-op, Routine Given 02/21/2021 1:33 PM EDT 60 mg PHENYLephrine in NS (PF) (YOJANA-SYNEPHRINE) 0.8 mg/10 mL (80 mcg/mL) multi-dose injection Syrg Intravenous, PRN, Starting on Wed02/21/21 at 1350, Until Wed02/21/21 at 1416, Anesthesia Intra-op, Routine Given 02/21/2021 1:57 PM EDT 80 mcg Given 02/21/2021 1:50 PM EDT 80 mcg propofoL (Diprivan) 10 mg/mL bolus injection (Anesthesia) Intravenous, PRN, Starting on Wed02/21/21 at 1334, Until Wed02/21/21 at 1416, Anesthesia Intra-op Given 02/21/2021 1:38 PM EDT 30 mg Given 02/21/2021 1:36 PM EDT 40 mg Given 02/21/2021 1:34 PM EDT 30 mg propofoL (Diprivan) infusion Intravenous, CONTINUOUS PRN, Starting on Wed02/21/21 at 1334, Until Wed02/21/21 at 1416, Anesthesia Intra-op, Routine Rate/Dose Change 02/21/2021 2:04 PM EDT 75 mcg/kg/min 35.91 mL/hr Rate/Dose Change 02/21/2021 1:56 PM EDT 100 mcg/kg/min 47. 88 mL/hr Rate/Dose Change 02/21/2021 1:49 PM EDT 125 mcg/kg/min 59. 85 mL/hr documented in this encounter Care Teams Frame Operator Relationship Specialty Start Date End Date Nataliya Messina MD [address] [place] [address] PCP - General 10/02/11 01/11/22 documented as of this encounter
--- OUTSIDE RECORDS SUMMARY | 2024-01-05 02:43 | XMS_ITS | Encounter Summary ---
Author Organization [facility] [place] [address] Care Team Providers Care Orchid Superintendent Name Role Phone Nataliya Messina MD Primary Care Provider [phone] Encounter Details Date Type Department Care Team (Latest Contact Info) Description 02/21/2021 12:36 PM EDT - 02/21/2021 2:47 PM EDT Hospital Encounter [place] [address] Anshu Ewing MD [facility] [place] [address] Discharge Disposition: Home Social History Tobacco Use [...] occurs, please contact your Doctor. Please call [phone] before 8pm Mon-Fri with problems, questions or concerns. If you call after 8pm or on weekends, call the Hospital at [phone] and ask to speak to the Engagement Manager environmental health and safety intern and the motor generator set operator will contact that person for you. When should you call for help? Call [phone] anytime you think you may need emergency [...] any problems. Where can you learn more? [facility] View your After Visit Summary and more online at [email or web address] If you would like to provide feedback [...] cost to you. Content Version: 12.2 ?? [id number] [employer]. Care instructions adapted under license by [facility]. If you have questions about a medical condition or this instruction, always ask your healthcare professional. [employer] disclaims any warranty or liability for your [...] AM EDT Appointment Hematology [place] [address] 01/21/2024 10:[address] [place] [address] Heber Phillips MD [facility] DR HEMATOLOGY/[place] [address] 03/28/2024 10:00 AM EDT Office Visit Hematology/Oncology at [address] [phone] Heber Phillips MD [facility] DR HEMATOLOGY/[place] [address] Isabella Baker APRN [facility] [place] [address] documented as of this encounter Procedures Procedure Name Priority Date/Time Associated Diagnosis Comments SPECIMEN TO PATHOLOGY Routine 02/21/2021 2:06 PM EDT SPECIMEN TO PATHOLOGY Routine 02/21/2021 2:06 PM EDT SPECIMEN TO PATHOLOGY Routine 02/21/2021 2:06 PM EDT SURGICAL PATHOLOGY REPORT Routine 02/21/2021 1:39 PM EDT Upper Gi Endoscopy, Biopsy ([id number]) 02/21/2021 1:29 PM EDT abnormal PET scan 'new small focus on FDG uptake in the cecum' KATHLEEN Colonoscopy, Remflory Oconnor, Snare ([id number]) 02/21/2021 1:29 PM EDT abnormal PET scan 'new small focus on FDG uptake in the cecum' KATHLEEN UPPER GI ENDOSCOPY Routine 02/21/2021 1: 09 PM EDT COLONOSCOPY Routine 02/21/2021 1:08 PM EDT documented in this encounter Results * Specimen to Pathology (02/21/2021 2:06 PM EDT) AP Specimen 02/21/2021 2:06 PM EDT 02/21/2021 2:06 PM EDT Narrative [facility] - 02/21/2021 2:06 PM EDT Specimen requisition ordered. ??Separate Pathology report to follow Anshu Ewing MD PATHOLOGY/CYTOLOGY ORDERABLES Performing Organization Address City/[facility]/[place] [address] * Specimen to Pathology (02/21/2021 2:06 PM EDT) AP Specimen 02/21/2021 2:06 PM EDT 02/21/2021 2:06 PM EDT Narrative [facility] - 02/21/2021 2:06 PM EDT Specimen requisition ordered. ??Separate Pathology report to follow Anshu Ewing MD PATHOLOGY/CYTOLOGY ORDERABLES Performing Organization Address City/[facility]/[place] [address] * Specimen to Pathology (02/21/2021 2:06 PM EDT) AP Specimen 02/21/2021 2:06 PM EDT 02/21/2021 2:06 PM EDT Narrative [facility] - 02/21/2021 2:06 PM EDT Specimen requisition ordered. ??Separate Pathology report to follow Anshu Ewing MD PATHOLOGY/CYTOLOGY ORDERABLES Performing Organization Address [facility]/[place] [address] * Surgical Pathology Report (02/21/2021 1:39 PM EDT) [facility] [address] Surgical Pathology Report [id number] ? Location: 4T; EA07; A The signing [...] polyp, excision: Tubular adenoma. Electronically signed by: ?Brent HIGUERA, Angie Verified: ??02/28/2021 20:31 ??Pathologist Performed at: ??-[facility] [place], [place], [place] SPECIMEN(S) SUBMITTED A - Stomach H. [...] en toto ??in 1 cassette labeled B1. ??sns [facility] 02/21/2021 1:39 PM EDT Anshu Ewing MD PATHOLOGY/CYTOLOGY ORDERABLES [facility] [place] [address] * UPPER GI ENDOSCOPY (02/21/2021 1:09 PM EDT) Pathologist [facility] UPPER GI ENDOSCOPY [facility] Endoscopy Procedure Date: 02/21/2021 1:09 PM ? Patient Name: Hieu Tillman ? Date of : 1955 ? Age: 65 ? Order #: [id number] ? Instrument Name: [id number] ? Procedure: ? Upper GI endoscopy Indications: ? Iron deficiency anemia Providers: ? Anshu Ewing MD, Florentin Meng. ? BOB Arrieta, Amie Max, ? Switchboard Operator Assistant Referring MD: ?Nataliya Messina MD Medicines: ? [...] Procedure Code(s): ?? --- Professional --- ? 51058, Esophagogastroduod enoscopy, ? flexible, transoral; diagnostic, ? including collection of specimen(s) ? by brushing or washing, when ? performed (separate procedure) CPT copyright 2019 [employer]. All rights reserved. The codes documented in this report are preliminary and upon lint cleaner review may be revised to meet current compliance requirements. Attending Participation: ? I personally performed the entire procedure. ? ___ Anshu Ewing MD 02/21/2021 1:47:41 PM This report has been signed electronically. Number of Addenda: 0 Note Initiated On: 02/21/2021 1:09 PM PROVATION 02/21/2021 1:09 PM EDT Nataliya Messina MD GENERAL SURGICAL OR DERABLES PROVATION * COLONOSCOPY (02/21/2021 1:08 PM EDT) COLONOSCOPY [facility] Endoscopy Procedure Date: 02/21/2021 1:08 PM ? Patient Name: Hieu Tillman ? Date of : 1955 ? Age: 65 ? Order #: [id number] ? Instrument Name: [id number] ? Procedure: ? Colonoscopy Indications: ? High risk colon cancer surveillance: ? Personal history of colonic polyps, ? Incidental - Abnormal PET scan of the ? GI tract Providers: ? Anshu Ewing MD, Florentin Martinez ? , BOB, Amie Mxa, ? Switchboard Operator Assistant Referring MD: ?Nataliya Messina MD Medicines: ? [...] Procedure Code(s): ?? --- Professional --- ? 62233, Colonoscopy, flexible; with ? removal of tumor(s), polyp(s), or ? other lesion(s) by snare technique CPT copyright 2019 [employer]. All rights reserved. The codes documented in this report are preliminary and upon lint cleaner review may be revised to meet current [...] 1315 (New Bag - Prov ider: Razia Hurst, BOB) documented in this encounter Care Teams Orchid Superintendent Relationship Specialty Start Date End Date Nataliya Messina MD [address] [place] [address] [facility] [place] [address] PCP - General 10/02/11 01/11/22 documented as of this encounter
--- OUTSIDE RECORDS SUMMARY | 2024-01-05 02:43 | XMS_ITS | Encounter Summary ---
Author Organization [facility] Address [facility] [place] [address] Care Team Providers Care Director Of Manufacturing Operations Name Role Phone Nataliya Messina MD Primary Care Provider [phone] Reason for Visit * Reason Comments IV Medication Venofer, 3rd of 3 sc heduled doses * Treatment/Therapy Plan Authorization (Routine) - Closed Specialty Diagnoses / Procedures Referred By Keven lozano Referred To Contact Diagnoses Iron deficiency anemia, unspecified iron deficiency anemia type Heber Phillips MD [facility] HEMATOLOGY/[place] [address] [facility] Hem Onc Office [address] [place] [phone] Referral ID Status Reason Start Date Expiration Date Visits Re quested Visits Authorized [id number] Closed 03/11/2021 03/11/2022 99 99 Encounter Details Date Type Department Care Team (Late st Contact Info) Description 04/01/2021 1:00 PM EDT Infusion Hematology Oncology at [address] [phone] Iron deficiency anemia, unspecified iron [...] Sign Reading Time Taken Comments Blood Pressure 121/44 04/01/2021 12:54 PM EDT Pulse 81 04/01/2021 12:54 PM EDT Temperature 36.6 ??C (97.8 ??F) 04/01/2021 12:54 PM E DT Respiratory Rate 24 04/01/2021 12:54 PM EDT Oxygen Saturation 97% 04/01/2021 12:54 PM EDT Inhaled Oxygen Concentration - - Weight 79.1 kg (174 lb 6.4 oz) 04/01/2021 12:54 PM EDT Height - - Body Mass Index 27.94 03/25/2021 12:53 PM EDT documented in this encounter Progress Notes * Sintia Fry RN - 04/01/2021 1:00 PM EDT INFUSION THERAPY ADMINISTRATION NOTES DIAGNOSIS: Iron Deficiency REASON FOR VISIT: Venofer infusion SUBJECTIVE Hieu Tillman offers no complaints. OBJECTIVE Oncology Vitals 04/01/2021 Weight (kg) 79.107 kg Weight (lb) 174 lb 6.4 oz Height BSA (Calculated - sq m) BMI (Calculated) Temp 97.8 Temp src 101 Pulse 81 Heart Rate Source NIBP Resp 24 BP 121/44 BP Location Right arm Patient Position Sitting SpO2 97 Pain Level Karnofsky Score Motor Neuropathy Sensory Neuropathy LAB DATA: From 01/22/21: H/H = 10.8/34.3, Iron 35, Transferrin % SAT = 8 Pre administration: Chemotherapy orders independently verified for drug name, route, and dosage per patient's height, weight and BSA by SINTIA FRY, BOB & On-site pharmacist. REACTIONS (DESCRIPTION, TIME, INTERVENTION AND EFFECTIVENESS) None ASSESSMENT Hieu Tillman was awake, alert and tolerated treatment well. Patient declined to remained in clinic for 30 min post infusion to monitor for reactions. Port flushed with 20 cc's of NS and 500 units of heparin and de-accessed. PLAN Return to clinic as scheduled.. documented in this encounter Plan of Treatment Upcoming Encounters Date Type Department Care Team (Late st Contact Info) Description 01/10/2024 7:45 AM EDT Appointment Hematology [place] [address] 01/21/2024 10:[address] [place] [address] Heber Phillips MD [facility] DR HEMATOLOGY/[place] [address] 03/28/2024 10:00 AM EDT Office Visit Hematology/Oncology at [address] [phone] Heber Phillips MD [facility] DR HEMATOLOGY/[place] [address] Isabella Baker APRN [facility] [place] [address] documented as of this encounter Visit Diagnoses Diagnosis Iron deficiency anemia, unspecified iron deficiency anemia type documented in this encounter Administered Medications Inactive Administered Medications - up to 3 most recent administrations Medication Order MAR Action Action Date Dose Rate Site acetaminophen (Tylenol) tablet 975 mg 975 mg (rounded from 1,000 mg), Oral, ONCE, 1 dose, On e 04/01/21 at 1315, Give prior to patient's infusion., Routine Given 04/01/2021 1:09 PM EDT 975 mg diphenhydrAMINE (Benadryl) capsule 25 mg 25 mg, Oral, ONCE, 1 dose, On Wed04/01/21 at 1315, Give Benadryl 25 mg PO prior to the patient's Venofer infusion., Routine Given 04/01/2021 1:10 PM EDT 25 mg hydrocortisone sod succ (pf) (Solu-CORTEF) (100 mg/2 mL) injection 100 mg 100 mg, Intravenous, ONCE, 1 dose, On Wed04/01/21 at 1315, Give prior to patient's infusion. Given 04/01/2021 1:11 PM EDT 100 mg iron sucrose (Venofer) 300 mg in sodium chloride 0.9% 115 mL 300 mg, Intravenous, ONCE, 1 dose, On Wed04/01/21 at 1315, Administer over 90 Minutes, Patients should be closely monitored for signs of hypersensitivity during and for at least 30 min after each administration. The observation period is not needed for patients who have demonstrated tolerability. Given 04/01/2021 1:13 PM EDT 300 mg 76.7 mL/hr documented in this encounter Care Teams Director Of Manufacturing Operations Relationship Specialty Start Date End Date Nataliya Messina MD [address] [place] [address] PCP - General 10/02/11 01/11/22 documented as of this encounter
--- OUTSIDE RECORDS SUMMARY | 2024-01-05 02:43 | XMS_ITS | Encounter Summary ---
Author Organization [facility] [address] Care Team Providers Care Wireless Technician Name Role Phone Nataliya Messina MD Primary Care Provider [phone] Encounter Details Date Type Department Care Team (Late st Contact Info) Description 01/03/2020 Ancillary Procedure [place] [phone] Heber Phillips MD [facility] HEMATOLOGY/[place] [address] Social History Tobacco Use Types Packs/Day Years [...] AM EDT Appointment Hematology [place] [phone] 01/21/2024 10:[address] [place] [phone] Heber Phillips MD [facility] HEMATOLOGY/ONCOLOGY [place], [place] [id number] 03/28/2024 10:00 AM EDT Office Visit Hematology/Oncology at [address] [phone] Heber Phillips MD [facility] DR HEMATOLOGY/[place] [address] Isabella Baker APRN [facility] [place] [address] documented as of this encounter Procedures Procedure Name Priority Date/Time Associated Diagnosis Comments FILM LIBRARY STORAGE ONLY MR HEAD Routine 01/03/2020 12:00 AM EDT documented in this encounter Results * Film Library- Storage Only MR Head (01/03/2020 12:00 AM EDT) Narrative [facility] - 01/05/2020 8:54 AM EDT This exam is auto-finalizing. It's purpose is for storage only. Heber Phillips MD IMG FILM LIBRARY ORD ERABLES [place], [place] documented in this encounter Visit Diagnoses Not on filedocumented in this encounter Care Teams Wireless Technician Relationship Specialty Start Date End Date Nataliya Messina MD [address] [place] [address] PCP - General 10/02/11 01/11/22 documented as of this encounter
--- OUTSIDE RECORDS SUMMARY | 2024-01-05 02:43 | XMS_ITS | Encounter Summary ---
Author Organization [facility] [place] [address] Care Team Providers Care Demand Generator Manager Name Role Phone Nataliya Messina MD Primary Care Provider [phone] Reason for Referral * Consultation (JULIEN) - Closed Specialty Diagnoses / Procedures Referred By Contac t Referred To Contact Gastroenterology Diagnoses Abnormal PET scan of colon Anemia, unspecified type Heber Phillips MD [facility] DR HEMATOLOGY/[place] [address] [facility] Endoscopy [address] [place] [address] Referral ID Status Reason Start Date Expiration Date V isits Requested Visits Authorized [id number] Closed Consult, Test & Treat 01/21/2021 01/21/2022 1 1 Reason for Visit * Reason Comments Follow-up Encounter Details Date Type Department Care Team (Late st Contact Info) Description 01/21/2021 10:00 AM EDT Office Visit Hematology/Oncology at [address] [phone] Heber Phillips MD [facility] [place] [address] Mary Cleaning, RN Abnormal PET scan of colon; Anemia, unspecified type; Anemia in neoplastic disease; Small cell lung cancer Social History Tobacco Use Types Packs/Day Years [...] Sign Reading Time Taken Comments Blood Pressure 112/57 01/21/2021 10:01 AM EDT Pulse 69 01/21/2021 10:01 AM EDT Temperature 36.7 ??C (98.1 ??F) 01/21/2021 9:55 AM ED T Respiratory Rate 18 01/21/2021 10:01 AM EDT Oxygen Saturation 99% 01/21/2021 10:01 AM EDT Inhaled Oxygen Concentration - - Weight 79.8 kg (176 lb) 01/21/2021 9:55 AM EDT Height 166.4 cm (5' 5.51) 01/21/2021 9:55 AM ED T Body Mass Index 28.83 01/21/2021 9:55 AM EDT documented in this encounter Progress Notes * Heber Phillips MD - 01/21/2021 10:00 AM EDT Images from the original [...] referred for consideration of definitive chemoradiation. Subjective (01/20/21): Mr. Tillman returns to the [facility] for follow up of small cell lung cancer and discussion of restaging PET scan. He has noticed some increase in his shortness of breathin the past few months. Denies any pain. No fevers or chills. He does not smoke. He states he is using his inhalers every day. Denies any issues with his bowels. No constipation, diarrhea or blood in stool. PMH: No interval changes since last visit [place] in 2013 status post 2 stents [...] infarction [place] about 6 [place] ago [place] [facility] [place] ??? 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 If you have any questions, [...] 0 Wt Readings from Last 3 Encounters: 01/21/21 79.8 kg (176 lb) 09/17/20 83.3 kg (183 lb 9.6 oz) 05/03/20 80.7 kg (178 lb) Review of Systems: Constitutional: Negative for [...] Neurological: Negative. Hematological: Negative for adenopathy. BP 112/57 (Patient Position: Sitting) Pulse 69 Temp 36.7 ??C (98.1 ??F) (Temporal) Resp 18 Ht 166.4 cm (5' 5.51) Wt 79.8 kg (176 lb) SpO2 99% BMI 28.83 kg/m?? Wt Readings from Last 3 Encounters: 01/21/21 79.8 kg (176 lb) 09/17/20 83.3 kg (183 lb 9.6 oz) 05/03/20 80.7 kg (178 lb) Physical Exam Constitutional: He is oriented [...] normal. Judgment and thought content normal. Labs: 01/15/2021 sodium 134, BUN 20, creatinine 1.1, calcium 9.4, TB 0.4, AST 19, ALT 28, alkaline phosphatase 113, total protein 7.7, albumin 3.8, WBC 7.12, hemoglobin 10.3, platelet count 425, ANC 5.42 09/17/20- WBC-9.21 Hgb/Hct-11.9/36.1 [id number] ANC-6.94 03/05/2020 WBC 8.23, hemoglobin 14.6, platelet count 387, ANC 6.5, sodium 131, potassium 3.9, BUN 12, creatinine 1.01, calcium 9.3, TB 0.3, AST 26, ALT 38, alkaline phosphatase 112, total protein 7.5. 10/24/19 WBC 8.18, hemoglobin 13.3, platelet count 464, ANC 5.99 sodium 127, BUN 17, creatinine 1.13, calcium 8.9, AST 22, ALT 38, alkaline phosphatase 129, total protein 7.6, albumin 3.8. Imagin12/25/20 PET scan: IMPRESSION 1. No evidence of [...] and brain MRI in 6 months #Anemia: New, will refer to GI for consideration [...] PCP. He may need to see a roaster helper again. Plan: 1. Blood work within a week 2. GI consult for upper endoscopy/colonoscopy 3. Next visit within 1-2 weeks after colonoscopy The plan was discussed with the patient in details. All questions were answered to patient's satisfaction. documented in this encounter Plan of Treatment Upcoming Encounters Date Type Department Care Team (Late st Contact Info) Description 01/10/2024 7:45 AM EDT Appointment Hematology [place] [address] 01/21/2024 10:[address] [place] [address] Heber Phillips MD [facility] DR HEMATOLOGY/[place] [address] 03/28/2024 10:00 AM EDT Office Visit Hematology/Oncology at [address] [phone] Heber Phillips MD [facility] DR HEMATOLOGY/[place] [address] Isabella Baker APRN [facility] [place] [address] Scheduled Referrals Name Type Priority Associated Diagnoses Order Schedule Referral to Gastroenterology Outpatient Referral Routine Abnormal PET scan of colon Anemia, unspecified type Ordered: 01/21/2021 documented as of this encounter Visit Diagnoses Diagnosis Abnormal PET scan of colon Nonspecific abnormal results of other specified function study Anemia, unspecified type Anemia in neoplastic disease Small cell lung cancer Malignant neoplasm of bronchus and lung, unspecified site documented in this encounter Care Teams Demand Generator Manager Relationship Specialty Start Date End Date Nataliya Messina MD [address] [place] [address] [address] [place] [address] PCP - General 10/02/11 01/11/22 documented as of this encounter
--- OUTSIDE RECORDS SUMMARY | 2024-01-05 02:43 | XMS_ITS | Encounter Summary ---
Author Organization [facility] [place] [address] Care Team Providers Care Post Graduate Intern Name Role Phone Nataliya Messina MD Primary Care Provider [phone] Reason for Referral * Diagnostic Test (Routine) - Closed Specialty Diagnoses / Procedures Referred By Contac t Referred To Contact Radiology Diagnoses Small cell lung cancer, right upper lobe Procedures NM PET CT Skull Base to Mid-thigh Heber Phillips MD [facility] DR HEMATOLOGY/[place] [address] [place] [address] Referral ID Status Reason Start Date Expiration Date V isits Requested Visits Authorized [id number] Closed Specialty Service Requested 10/31/2019 05/02/2021 1 1 Reason for Visit * Diagnostic Test (Routine) - Closed Specialty Diagnoses / Procedures Referred By Contac t Referred To Contact Radiology Diagnoses Small cell lung cancer, right upper lobe Procedures NM PET CT Skull Base to Mid-thigh Heber Phillips MD [facility] HEMATOLOGY/[place] [address] [place] [address] Referral ID Status Reason Start Date Expiration Date V isits Requested Visits Authorized [id number] Closed Specialty Service Requested 10/31/2019 05/02/2021 1 1 Encounter Details Date Type Department Care Team (Latest Contact Info) Description 02/29/2020 9:03 AM EDT Hospital Encounter Nuclear Medicine at [facility] [place] [address] Heber Phillips MD [facility] HEMATOLOGY/[place] [address] Small cell lung cancer, right upper lobe [...] AM EDT Appointment Hematology [place] [phone] 01/21/2024 10:[address] [place] [address] Heber Phillips MD [facility] HEMATOLOGY/[place] [address] 03/28/2024 10:00 AM EDT Office Visit Hematology/Oncology at [address] [phone] Heber Phillips MD [facility] DR HEMATOLOGY/[place] [address] Isabella Baker APRN [facility] [place] [address] documented as of this encounter Procedures Procedure Name Priority Date/Time Associated Diagnosis Comments NM PET CT SKULL BASE TO MID-THIGH ([facility]) Routine 02/29/2020 10:55 AM EDT Small cell lung cancer, right upper lobe documented in this encounter Results * NM PET CT Skull Base to Mid-thigh (02/29/2020 10:55 AM EDT) Anatomical Region Laterality Modality Positron Emissio n Tomography (PET) Impressions 02/29/2020 1:52 PM EDT No evidence of tumor recurrence or metastasis Preliminary report signed by: Arabella Mcdermott at 02/29/2020 1:50 PM I have personally reviewed the image(s) and the resident's interpretation and agree with the findings, Vamsi Perez at 02/29/2020 1:52 PM Thank you for letting us participate in the care of this patient. For questions regarding this report, please contact the number below. ? Narrative 02/29/2020 1:52 PM EDT EXAMINATION: NM PET CT SKULL BASE TO MID-THIGH ? CLINICAL HISTORY: Small cell lung cancer, monitor; Metastatic disease evaluation - Include more detail below Restaging of small cell lung cancer TECHNIQUE: Following IV injection of 98-cmkhge-5-deoxyglucose (FDG) a standard uptake of approximately 60 minutes, a noncontrast CT scan followed by a PET scan were acquired from the base of the skull to mid thighs. The noncontrast CT was used for anatomic localization and photon attenuation correction of the PET scan. Blood glucose level: 116 (mg/dL) FDG dose: 12.5 mCi COMPARISON: PET/CT 10/16/2019 CT chest 12/15/2018 FINDINGS: HEAD/NECK: Normal activity in all soft tissue regions of the neck and visualized lower head. No significant adenopathy. CHEST: CT visualized ill-defined residual right apical mass and adjacent fibrotic changes has FDG avidity to mediastinal background, not significantly changed when compared to of 10/16/2019. Normal activity in all other soft tissue regions. No significant adenopathy. Several non-FDG avid pulmonary nodules in the posterior right lower lobe (axial images 94-97), stable since remote CT of 12/15/2017. Coronary and aortic calcifications. Right-sided central line with tip in the proximal right atrium. ABDOMEN/PELVIS: Normal activity in all soft tissue regions. Stable appearance of several subcentimeter right hepatic cysts. Vascular calcifications. Unchanged infrarenal abdominal aortic aneurysm measuring up to 3.2 cm, unchanged from prior. Right common iliac stent. SKELETON/EXTREMITIES: Decreased marrow activity in the upper thoracic spine consistent with postradiation change. Normal activity in all other regions of the axial and visualized appendicular skeleton. Procedure Note Vamsi Perez MD - 02/29/2020 EXAMINATION: NM PET CT SKULL BASE TO MID-THIGH CLINICAL HISTORY: Small cell lung cancer, monitor; Metastatic diseaseevaluation - Include more detail below Restaging of small cell lung cancer TECHNIQUE: Following IV injection of 61-ufunzk-9-deoxyglucose (FDG) astandard uptake of approximately 60 minutes, a noncontrast CT scan followed by aPET scan were acquired from the base of the skull to mid thighs. The noncontrast CTwas used for anatomic localization and photon attenuation correction of thePET scan. Blood glucose level: 116 (mg/dL) FDG dose: 12.5 mCi COMPARISON: PET/CT 10/16/2019 CT chest 12/15/2018 FINDINGS: HEAD/NECK: Normal activity in all soft tissue regions of the neck and visualizedlower head. No significant adenopathy. CHEST: CT visualized ill-defined residual right apical mass and adjacentfibrotic changes has FDG avidity to mediastinal background, not significantlychanged when compared to of 10/16/2019. Normal activity in all other soft tissueregions. No significant adenopathy. Several non-FDG avid pulmonary nodules in the posterior right lower lobe (axial images 94-97), stable since remote CTof 12/15/2017. Coronary and aortic calcifications. Right-sided central linewith tip in the proximal right atrium. ABDOMEN/PELVIS: Normal activity in all soft tissue regions. Stable appearance of several subcentimeter right hepatic cysts. Vascular calcifications. Unchanged infrarenal abdominal aortic aneurysm measuringup to 3.2 cm, unchanged from prior. Right common iliac stent. SKELETON/EXTREMITIES: Decreased marrow activity in the upper thoracic spine consistent with postradiation change. Normal activity in all other regions of the axialand visualized appendicular skeleton. IMPRESSION No evidence of tumor recurrence or metastasis Preliminary report signed by: Arabella Mcdermott at 02/29/2020 1:50 PM I have personally reviewed the image(s) and the resident's interpretationand agree with the findings, Vamsi Perez at 02/29/2020 1:52 PM Thank you for letting us participate in the care of this patient. Forquestions regarding this report, please contact the number below. Heber Phillips MD [facility] PET ORDERABLES documented in this encounter Visit Diagnoses Diagnosis Small cell lung cancer, right upper lobe documented in this encounter Administered Medications Inactive Administered Medications - up to 3 most recent administrations Medication Order MAR Action Action Date Dose Rate Site fludeoxyglucose (F-18) FDG injection 0-20 mCi 0-20 mCi, Intravenous, ONCE PRN, 1 dose, Starting on [employer]er[place] 02/29/20 at 0926, Until [employer] 02/29/20 at 0922, Per Protocol, Radiology Contrast, Routine Given 02/29/2020 9:22 AM EDT 12.5 mCi Right Arm documented in this encounter Care Teams Post Graduate Intern Relationship Specialty Start Date End Date Nataliya Messina MD [address] [place] [address] PCP - General 10/02/11 01/11/22 documented as of this encounter
--- OUTSIDE RECORDS SUMMARY | 2024-01-05 02:43 | XMS_ITS | Encounter Summary ---
[place] [address] Care Team Providers Care Money Manager Name Role Phone Nataliya Messina MD Primary Care Provider Encounter Details Date Type Department Care Team (Late st Contact Info) Description 01/28/2021 Notes Only Hematology/Oncology at [address] [phone] Carlo Hassan RN Social History Tobacco Use Types Packs/Day [...] as of this encounter Progress Notes * Carlo Hassan RN - 01/28/2021 10:04 AM EDT Labs done 01/22 at [facility] reviewed by Dr Phillips. Plan remains the same- pt is to get GI referral forcolo/endo and we will see him back after that is done. [place] aware and working on scheduling. Pt called and updated. documented in this encounter Plan of Treatment Upcoming Encounters Date Type Department Care Team (Late st Contact Info) Description 01/10/2024 7:45 AM EDT Appointment Hematology [place] [address] 01/21/2024 10:[address] [place] [address] Heber Phillips MD [facility] HEMATOLOGY/[place] [address] 03/28/2024 10:00 AM EDT Office Visit Hematology/Oncology at [address] [phone] Heber Phillips MD [facility] DR HEMATOLOGY/[place] [address] Isabella Baker APRN [facility] [place] [place] [address] documented as of this encounter Visit Diagnoses Not on filedocumented in this encounter Care Teams Money Manager Relationship Specialty Start Date End Date Nataliya Messina MD [address] [place] [address] [address] [place] [address] PCP - General 10/02/11 01/11/22 documented as of this encounter
--- OUTSIDE RECORDS SUMMARY | 2024-01-05 02:43 | XMS_ITS | Encounter Summary ---
Author Organization [facility] [place] [address] Care Team Providers Care Director Auto Name Role Phone Nataliya Messina MD Primary Care Provider [phone] Reason for Referral * Diagnostic Test (Routine) - Closed Specialty Diagnoses / Procedures Referred By Contac t Referred To Contact Radiology Diagnoses Small cell lung cancer, right upper lobe Small cell lung cancer Procedures NM PET CT Skull Base to Mid-thigh Heber Phillips MD [facility] [place]EMATOLOG[place] [address] [place] [address] Referral ID Status Reason Start Date Expiration Date V isits Requested Visits Authorized [id number] Closed Specialty Service Requested 03/05/2020 09/02/2021 1 1 Reason for Visit * Reason Comments Follow-up Encounter Details Date Type Department Care Team (Late st Contact Info) Description 03/05/2020 2:00 PM EDT Office Visit Hematology/Oncology at [address] [address] Heber Phillips MD [facility] [place]ATOLOGY/[place] [address] Mary Cleaning RN Small cell lung cancer, right upper lobe (Primary Dx); Small cell lung cancer; Post-radiation pneumonitis; Chronic cough Social History Tobacco Use Types [...] Sign Reading Time Taken Comments Blood Pressure 133/64 03/05/2020 1:41 PM EDT Pulse 98 03/05/2020 1:41 PM EDT Temperature 36.9 ??C (98.4 ??F) 03/05/2020 1:41 PM ED T Respiratory Rate 20 03/05/2020 1:41 PM EDT Oxygen Saturation 97% 03/05/2020 1:41 PM EDT Inhaled Oxygen Concentration - - Weight 82.4 kg (181 lb 9.6 oz) 03/05/2020 1:41 P M EDT Height 165.1 cm (5' 5) 03/05/2020 1:41 PM EDT Body Mass Index 30.22 03/05/2020 1:41 PM EDT documented in this encounter Progress Notes * Heber Phillips MD - 03/05/2020 2:00 PM EDT Images from the original note were not included. Diagnosis: High-grade neuroendocrine cancer of right lung, limited stage, clinical: stage IIIA (cT3, cN1, cM0) Subjective: I am still windy HPI:Hieu Tillman is 64 y.o. M referred by Dr. Ortiz for [...] was referred for consideration of definitive chemoradiation. Subjective: Mr. Tillman to follow on small cell lung cancer and discussion of restaging PET scan. Overall, he feels at his baseline. He complains on shortness of breath with minimal exertion and cough with some phlegm, but nothing new. Follows with cnc programmer. Denies any pain. Denies any nausea, vomiting or pain. No fever or chills. No other focal complaints. PMH: No interval changes since last visit [place] in 2013 status post 2 stents placement, [...] radiating to right leg ??? [place] 6 [place] ago [place] [facility] [place] ??? 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 Marital status: Spouse name: Not on file ??? Number of children: 5 ??? Years of education: Not on file ??? Highest education level: Not on file Occupational History ??? 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 Financial resource strain: Not on file ??? Food insecurity Worry: Not on file Inability: Not on file ??? Transportation needs Medical: Not on file Non-medical: Not on file Tobacco Use ??? Smoking status: Former Smoker Packs/day: 2.00 Years: 47.00 Pack years: 94.00 Types: Cigarettes Quit date: 09/11/2013 Years since quittin.4 ??? Smokeless tobacco: Never Used Substance and Sexual Activity ??? Alcohol use: No Comment: Sober 25 years the summer of 2016 ??? Drug use: No ??? Sexual activity: Not Currently Comment: deferred Lifestyle ??? Physical activity Days per week: Not on file Minutes per session: Not on file ??? Stress: Not on file Relationships ??? Social connections Talks on phone: Not on file Gets together: Not on file Attends taoism service: Not on file Active member of club or organization: Not on file Attends meetings of clubs or organizations: Not on file Relationship status: Not on file ??? Intimate partner violence Fear of current or ex partner: Not on file Emotionally abused: Not on file Physically abused: Not on file Forced sexual activity: Not on file Other Topics Concern ??? Not on file Social History Narrative Lives with his in [place], [place]. Retired from [employer] where he did repairs for 40 years. Has 5 children and many grandchildren. Family History: No interval changes since last [...] Medications: Your Medications Accurate as of March 05, 2020 2:15 PM. If you have any questions, ask [...] drug: fluticasone furoate-vilanteroL 1 puff Refills: 0 budesonide 0.5 mg/2 mL Nbsp Commonly known as: PULMICORT Take 2 mLs by nebulization daily. Indications: worsening of debilitating chronic lung disease called COPD, J44.9 500 mcg Quantity: 60 mL Refills: 12 clopidogreL 75 mg Tab Commonly known as: Plavix Take 1 tablet by mouth daily. 75 mg Quantity: 90 tablet Refills: 3 * Combivent 18-103 mcg/actuation Aero 2 Puff(s), Inh, Twice daily Generic drug: albuterol-ipratropium Refills: 0 * ipratropium-albuteroL 0.5 mg-3 mg(2.5 mg base)/3 mL Nebu Commonly known as: DUONEB Take 0.5 mg by nebulization 4 times daily. 3 mL Quantity: 360 mL Refills: 11 FIBER CHOICE ORAL Take 1 tablet by mouth daily. 1 tablet Refills: 0 zrnxtiwkkds-bpzpgpdie-holayjre 100-62.5-25 mcg Dsdv Inhale 1 puff into the lungs daily. 1 puff Quantity: 28 each Refills: 0 hydroCHLOROthiazide 25 mg Tab Commonly known as: Hydrodiuril Take 25 mg by mouth every other day. 25 mg Refills: 0 lisinopriL 20 mg Tab Commonly known as: Prinivil;Zestril Take 1 tablet by mouth daily. 20 mg Quantity: 90 tablet Refills: 3 LORazepam 1 mg Tab Commonly known as: Ativan Take one tab one hour prior to MRI Quantity: 1 tablet Refills: 0 MAG-DELAY ORAL Take 1 tablet by mouth. 1 tablet Refills: 0 metoprolol tartrate 25 [...] Generic drug: tiotropium 18 mcg Refills: 0 * This list has 2 medication(s) that are the same as other medications prescribed for you. Read thedirections carefully, and ask your doctor or other care provider to review them with you. Review of Systems: Constitutional: Negative for fever, chills, activity change, fatigue and unexpected weight change. HEENT: Negative for sore throat, mouth sores and trouble swallowing. Eyes: Negative. Respiratory: positive for cough , shortness of breath and wheezing. Cardiovascular: Negative for chest pain, palpitations and leg swelling. Gastrointestinal: Negative for nausea, vomiting, abdominal pain, diarrhea, constipation and abdominal distention. Genitourinary: Negative for dysuria and difficulty urinating. Musculoskeletal: Negative. Skin: Negative. Neurological: Negative. Hematological: Negative for adenopathy. BP 133/64 (Patient Position: Sitting) Pulse 98 Temp 36.9 ??C (98.4 ??F) (Temporal) Resp 20 Ht 165.1 cm (5' 5) Wt 82.4 kg (181 lb 9.6 oz) SpO2 97% BMI 30.22 kg/m?? Wt Readings from Last 3 Encounters: 03/05/20 82.4 kg (181 lb 9.6 oz) 07/10/19 83.2 kg (183 lb 6.8 oz) 06/06/19 83 kg (183 lb) Physical Exam Constitutional: He is oriented to person, place, and time. He appears well- developed and well-nourished. HENT: Mouth/Throat: Oropharynx is clear and moist. No oropharyngeal exudate. Eyes: Conjunctivae are normal. Pupils are equal, round, and reactive to light. Neck: Normal range of motion. Neck supple. Cardiovascular: Normal rate and regular rhythm. Pulmonary/Chest: Effort normal. Decreased lung sounds bilaterally Abdominal: Soft. He exhibits no distension and no mass. There is no tenderness. There is no guarding. Musculoskeletal: Normal range of motion. He exhibits no edema. Lymphadenopathy: He has no cervical adenopathy. Neurological: He is alert and oriented to person, place, and time. He has normal reflexes. Skin: Skin is warm and dry. Psychiatric: His behavior is normal. Judgment and thought content normal. His affect is labile. Labs: 03/05/2020 WBC 8.23, hemoglobin 14.6, platelet count 387, ANC 6.5, sodium 131, potassium 3.9, BUN 12, creatinine 1.01, calcium 9.3, TB 0.3, AST 26, ALT 38, alkaline phosphatase 112, total protein 7.5. 10/24/19 WBC 8.18, hemoglobin 13.3, platelet count 464, ANC 5.99 sodium 127, BUN 17, creatinine 1.13, calcium 8.9, AST 22, ALT 38, alkaline phosphatase 129, total protein 7.6, albumin 3.8. Imagin02/29/2020 PET/CT scan: IMPRESSION No evidence of tumor [...] including history of stroke, severe peripheralvascular disease, [place] status post stent placement and COPD. His performance status is 2. Kidney function is borderline normal. We discussed prognosis of limited stage small cell lung carcinoma with 20-30% three-year overall survival if treated with chemoradiation His case was discussed on thoracic tumor board with some recommendation for concurrent chemoradiation with carboplatin AUC 5 and etoposide 100 mg dd 1-3 . Mr. Tillman received 4 cycles of carboplatin and etoposide, last 2 cycles concurrently with definitive radiation. He has a very good partial response. CT scan shows decrease in right upper lobe mass now measuring 2.6 cm in diameter. Superior hilar adenopathy is no longer seen. MRI is negative for brain metastasis. He was seen by our radiation oncologist Dr. Cadena. Hieu declined PCI. MARISOL. Mr. Tillman is doing well with oncological standpoint. His main concern is dyspnea what he followsfor with pulmonary team. Surveillance PET scan is negative for metastatic disease. We will continueobservation see him back with surveillance PET scan and blood work in 6 months. #Depression: feels better on Celexa #Dyspnea/dry cough: Following with pulmonary team Exertional dyspnea is getting worse. [place] better on prednisone in the beginning but after tapering off prednisone cough and dyspnea back. 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 Next visit with CBc, CMP and PET scan in 6 months The plan was discussed with the patient in details. All questions were answered to patient's satisfaction. documented in this encounter Plan of Treatment Upcoming Encounters Date Type Department Care Team (Late st Contact Info) Description 01/10/2024 7:45 AM EDT Appointment Hematology [place] [address] 01/21/2024 10:[address] [place] [address] Heber Phillips MD [facility] [address] [place]EMATOLOGY/[place] [address] 03/28/2024 10:00 AM EDT Office Visit Hematology/Oncology at [address] [address] Heber Phillips MD [facility] [place]EMATOLOGY/[place] [address] Isabella Baker APRN [facility] [place] [place] [address] documented as of this encounter Results * (ABNORMAL) NM PET CT Skull Base to Mid-thigh (09/13/2020 1:59 PM EDT) Anatomical Region Laterality Modality Positron Emissio n Tomography (PET) Impressions 09/13/2020 4:24 PM EDT New indistinct groundglass opacities in the lingula with associated FDG uptake. Findings are concerning for pneumonia. No evidence of local tumor recurrence or metastatic disease. UNEXPECTED FINDING of a new small focus of FDG uptake in the cecum. This could be due to inflammation or a colonic malignancy. Recommend attention on follow-up or direct visualization with colonoscopy. Thank you for letting us participate in the care of this patient. ??If you are a health care provider and have any questions regarding this report, please contact the number below. ??For our patients who have questions regarding this report, please first contact your doctor prior to speaking to our radiologists. ? Narrative 09/13/2020 4:24 PM EDT EXAMINATION: NM PET CT SKULL BASE TO MID-THIGH ? CLINICAL HISTORY: Small cell lung cancer, monitor Restaging of small cell lung cancer TECHNIQUE: Following IV injection of 79-kxrjyi-2-deoxyglucose (FDG) a standard uptake of approximately 60 minutes, a noncontrast CT scan followed by a PET scan were acquired from the base of the skull to mid thighs. The noncontrast CT was used for anatomic localization and photon attenuation correction of the PET scan. Blood glucose level: 96 (mg/dL) FDG dose: 9.8 mCi COMPARISON: 02/29/2020 FINDINGS: HEAD/NECK: Normal activity in all soft tissue regions of the neck and visualized lower head. CHEST: Multiple new foci of FDG avidity in the lingula corresponding to new multifocal indistinct groundglass opacities. These findings are consistent with a new infectious/inflammatory process. Stable posttreatment changes with volume loss and apical consolidation/scarring in the right upper lobe. Stable homogeneous background uptake. Stable small non-FDG avid nodules in the right lower lobe. Right-sided port catheter ends in the cranial aspect of the right atrium. Moderate to severe coronary artery atherosclerotic calcification. ABDOMEN/PELVIS: Focus of FDG uptake in the cecum (axial image 25) is new. Again seen is the 3.2 cm aneurysmal dilatation of the infrarenal abdominal aorta and stenting of the right common iliac artery. SKELETON/EXTREMITIES: Normal activity in all regions of the axial and visualized appendicular skeleton. Resulting Agency Comment Unexpected Finding Heber Phillips MD [facility] PET ORDERABLES documented in this encounter Visit Diagnoses Diagnosis Small cell lung cancer, right upper lobe- Primary Small cell lung cancer Malignant neoplasm of bronchus and lung, unspecified site Post-radiation pneumonitis Acute pulmonary manifestations due to radiation Chronic cough Cough Small cell lung cancer, right upper lobe Small cell lung cancer Malignant neoplasm of bronchus and lung, unspecified site documented in this encounter Care Teams Director Auto Relationship Specialty Start Date End Date Nataliya Messina MD [address] [place] [address] PCP - General 10/02/11 01/11/22 documented as of this encounter
--- OUTSIDE RECORDS SUMMARY | 2024-01-05 02:43 | XMS_ITS | Encounter Summary ---
Author Organization [facility] [place] [address] Care Team Providers Care Stock Order Lister Name Role Phone Nataliya Messina MD Primary Care Provider [phone] Reason for Visit * Diagnostic Test (Routine) - Closed Specialty Diagnoses / Procedures Referred By Contac t Referred To Contact Radiology Diagnoses Small cell lung cancer, right upper lobe Procedures NM PET CT Skull Base to Mid-thigh Mary Cleaning, RN [address] [place] [address] [place] [address] [facility] [place] [address] Referral ID Status Reason Start Date Expiration Date V isits Requested Visits Authorized [id number] Closed Specialty Service Requested 09/17/2020 03/20/2022 1 1 Encounter Details Date Type Department Care Team (Latest Contact Info) Description 12/25/2020 11:46 AM EDT - 12/25/2020 11:59 PM EDT Hospital Encounter [place] [phone] Mary Cleaning skin therapist Disposition: Home Social History Tobacco Use Types [...] AM EDT Appointment Hematology [place] [address] 01/21/2024 10:[address] [place] [address] Heber Phillips MD [facility] DR HEMATOLOGY/[place] [address] 03/28/2024 10:00 AM EDT Office Visit Hematology/Oncology at [address] [address] Heber Phillips MD [facility] DR HEMATOLOGY/[place] [address] Isabella Baker APRN [facility] [place] [address] documented as of this encounter Procedures Procedure Name Priority Date/Time Associated Diagnosis Comments NM PET CT SKULL BASE TO MID-THIGH ([facility]) Routine 12/25/2020 1:33 PM EDT Small cell lung cancer, right upper lobe POCT GLUCOSE Routine 12/25/2020 12:04 PM EDT documented in this encounter Results * POCT Glucose (12/25/2020 12:04 PM EDT) POC Glucose 111 65 - 199 mg/dL [facility] Comment: Supplemental ranges: <140 mg/dL before meals <180 mg/dL all other times of the day Blood 12/25/2020 12:0 4 PM EDT 12/25/2020 12:04 PM EDT Mary Cleaning RN POINT OF CARE TEST O RDERABLES [facility] [place] [address] documented in this encounter Visit Diagnoses Not on filedocumented in this encounter Care Teams Stock Order Lister Relationship Specialty Start Date End Date Nataliya Messina MD [address] [place] [address] PCP - General 10/02/11 01/11/22 documented as of this encounter
--- OUTSIDE RECORDS SUMMARY | 2024-01-05 02:43 | XMS_ITS | Encounter Summary ---
Author Organization [facility] Address [facility] [place] [address] Care Team Providers Care Staffing And Scheduling Coordinator Name Role Phone Nataliya Messina MD Primary Care Provider [phone] Encounter Details Date Type Department Care Team (Latest Contact Info) Description 11/06/2019 10:20 AM EDT TH Visit (TeleHealth) Cardiology at [address] [address] Ramandeep Choudhary MD [facility] [place] [address] Coronary artery disease involving flandreau heart, angina presence unspecified, unspecified vessel or lesion type Social History Tobacco Use Types Packs/Day [...] as of this encounter Progress Notes * Ramandeep Choudhary MD - 11/06/2019 10:20 AM EDT CARDIOLOGY OUTPATIENT FOLLOW-UP NOTE PRIMARY CARE PROVIDER: Nataliya Messina MD REFERRING PROVIDER: No ref. provider found PROBLEM LIST: Patient Active Problem List Diagnosis ??? Dehydration ??? Small cell lung cancer, right upper lobe ??? Mass of upper lobe of right lung 5 cm RUL mass ??? 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 CAD (coronary artery disease) CARDIAC CATHETERIZATION [...] Outpatient Medications Medication Sig Dispense Refill ??? ipratropium-albuterol (DUONEB) 0.5 mg-3 mg(2.5 mg base)/3 mL Solution for Nebulization Take 0.5mg by nebulization 4 times daily. 360 mL 11 ??? budesonide (PULMICORT) 0.5 mg/2 mL Suspension for Nebulization Take 2 mLs by nebulization daily. Indications: worsening of debilitating chronic lung disease called COPD, J44.9 60 mL 12 ??? qahpzlvcigv-affgxjcev-dezqshgs 100-62.5-25 mcg Disk with Device Inhale 1 puff into the lungs daily. 28 each 0 ??? LORazepam (ATIVAN) 1 mg Tablet Take one tab one hour prior to MRI (Patient not taking: Reportedon 06/06/2019) 1 tablet 0 ??? pantoprazole (PROTONIX) 40 mg Tablet, Delayed Release (E.C.) Take 40 mg by mouth daily. ??? magnesium chloride (MAG-DELAY ORAL) Take 1 tablet by mouth. ??? tiotropium (SPIRIVA WITH HANDIHALER) 18 mcg Capsule, w/Inhalation Device Inhale 18 [...] 5 minutes as needed. 25 tablet 12 ??? hydrochlorothiazide (HYDRODIURIL) 25 mg tablet Take 25 mg by mouth every other day. ??? FIBER CHOICE ORAL Take 1 tablet by mouth daily. ??? aspirin 81 mg EC tablet Take 81 mg by mouth daily. ??? albuterol-ipratropium (COMBIVENT) 18-103 mcg/Actuation inhaler 2 Puff(s), Inh, Twice daily No current facility-administered medications for this visit. Subjective: Patient ID: Hieu Tillman is a 64 y.o. male. HPI This is a follow-up telephone visit for this 64-year-old man with a history of coronary artery disease. He reports that overall he has been feeling adequately well since his last visit. He has been trying to do activity around his property including stacking wood, walking, and hopes to garden as the weather improves His major limitation remains exertional dyspnea. This is attributed to a combination of COPD and treatment for his lung cancer which included radiation He rarely experiences chest pain. Overall he feels this is likely muscular but at times he will take nitroglycerin just in case. He is requesting a refill on that medication A course of pulmonary rehab is planned when the quarantine has lifted Review of System Review of Systems Cardiovascular: [...] Years: 47.00 Pack years: 94.00 Types: Cigarettes Last attempt to quit: 09/11/2013 Years since quittin.1 ??? Smokeless tobacco: Never Used Substance and [...] file Gets together: Not on file Attends anabaptist service: Not on file Active member of [...] Social History Narrative Lives with his in [place], [place]. 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 Has 5 children and many grandchildren. Objective: Physical Exam Assessment and Plan: #1. Coronary artery disease. The patient describes stable exercise tolerance without symptoms suggestive of angina. His major limitation remains respiratory and this is being addressed #2. Exertional dyspnea. See above We will plan follow-up in 6 months, sooner as needed. Patient will call if new issues arise Thank you for the opportunity to participate in this patient's cardiovascular care. All questions were answered and I look forward to the next visit. documented in this encounter Plan of Treatment Upcoming Encounters Date Type Department Care Team (Late st Contact Info) Description 01/10/2024 7:45 AM EDT Appointment Hematology [place] [address] 01/21/2024 10:[address] [place] [address] Heber Phillips MD [facility] DR HEMATOLOGY/[place] [address] 03/28/2024 10:00 AM EDT Office Visit Hematology/Oncology at [address] [phone] Heber Phillips MD [facility] DR HEMATOLOGY/[place] [address] Isabella Baker APRN [facility] [place] [address] documented as of this encounter Visit Diagnoses Diagnosis Coronary artery disease involving flandreau heart, angina presence unspecified, unspecified vessel or lesion type documented in this encounter Care Teams Staffing And Scheduling Coordinator Relationship Specialty Start Date End Date Nataliya Messina MD [address] [place] [address] PCP - General 10/02/11 01/11/22 documented as of this encounter
--- OUTSIDE RECORDS SUMMARY | 2024-01-05 02:43 | XMS_ITS | Encounter Summary ---
Author Organization [facility] [place] [address] Care Team Providers Care Erisa Attorney Name Role Phone Nataliya Messina MD Primary Care Provider [phone] Reason for Referral * Diagnostic Test (Routine) - Closed Specialty Diagnoses / Procedures Referred By Contac t Referred To Contact Radiology Diagnoses Small cell lung cancer, right upper lobe Small cell lung cancer Procedures NM PET CT Skull Base to Mid-thigh Heber Phillips MD [facility] DR HEMATOLOGY/[place] [address] [place] [address] Referral ID Status Reason Start Date Expiration Date V isits Requested Visits Authorized [id number] Closed Specialty Service Requested 03/05/2020 09/02/2021 1 1 Reason for Visit * Diagnostic Test (Routine) - Closed Specialty Diagnoses / Procedures Referred By Contac t Referred To Contact Radiology Diagnoses Small cell lung cancer, right upper lobe Small cell lung cancer Procedures NM PET CT Skull Base to Mid-thigh Heber Phillips MD [facility] HEMATOLOGY/[place] [address] [place] [address] Referral ID Status Reason Start Date Expiration Date V isits Requested Visits Authorized [id number] Closed Specialty Service Requested 03/05/2020 09/02/2021 1 1 Encounter Details Date Type Department Care Team (Latest Contact Info) Description 09/13/2020 10:42 AM EDT Hospital Encounter Nuclear Medicine at [facility] [place] [address] [facility] HEMATOLOGY/[place] [address] Small cell lung cancer, right upper lobe; Small cell lung cancer Discharge Disposition: Home Social History Tobacco Use [...] AM EDT Appointment Hematology [place] [address] 01/21/2024 10:[address] [place] [place] [address] [facility] HEMATOLOGY/[place] [address] 03/28/2024 10:00 AM EDT Office Visit Hematology/Oncology at [address] [address] [facility] HEMATOLOGY/[place] [address] [facility] [place] [address] documented as of this encounter Procedures Procedure Name Priority Date/Time Associated Diagnosis Comments NM PET CT SKULL BASE TO MID-THIGH (LCSR) Routine 09/13/2020 1:59 PM EDT Small cell lung cancer, right upper lobe Small cell lung cancer documented in this encounter Results * (ABNORMAL) NM PET [...] lung cancer TECHNIQUE: Following IV injection of 46-snfoyk-0-deoxyglucose (FDG) a standard uptake of approximately 60 [...] lung, unspecified site documented in this encounter Administered Medications Inactive Administered Medications - up to 3 most recent administrations Medication Order MAR Action Action Date Dose Rate Site fludeoxyglucose (F-18) FDG injection 0-20 mCi 0-20 mCi, Intravenous, ONCE PRN, 1 dose, Starting on Wed09/13/20 at 1259, Until Wed09/13/20 at 1255, Per Protocol, Radiology Contrast, Routine Given 09/13/2020 12:55 PM EDT 9.8 mCi Right Arm documented in this encounter Care Teams Erisa Attorney Relationship Specialty Start Date End Date Nataliya Messina MD [address] [place] [address] [address] [facility] [address] [place] [address] PCP - General 10/02/11 01/11/22 documented as of this encounter
--- OUTSIDE RECORDS SUMMARY | 2024-01-05 02:43 | XMS_ITS | Encounter Summary ---
Author Organization [facility] [place] [address] Care Team Providers Care Box Sealing Machine Catcher Name Role Phone Nataliya Messina MD Primary Care Provider [phone] Encounter Details Date Type Department Care Team (Late Contact Info) Description 10/01/2020 Tele[place] [address] Latanya Murguia Social History Tobacco Use Types [...] AM EDT Appointment Hematology [place] [address] 01/21/2024 10:[address] [place] [phone] Heber Phillips MD [facility] HEMATOLOGY/[place] [address] 03/28/2024 10:00 AM EDT Office Visit Hematology/Oncology at [address] [address] Heber Phillips MD [facility] DR HEMATOLOGY/[place] [address] Isabella Baker APRN [facility] [place] [address] documented as of this encounter Visit Diagnoses Not on filedocumented in this encounter Care Teams Box Sealing Machine Catcher Relationship Specialty Start Date End Date Nataliya Messina MD [address] [place], [place] [address] PCP - General 10/02/11 01/11/22 documented as of this encounter
--- OUTSIDE RECORDS SUMMARY | 2024-01-05 02:43 | XMS_ITS | Encounter Summary ---
[place] [address] Care Team Providers Care Propulsion Motor And Generator Repairer Name Role Phone Nataliya Messina MD Primary Care Provider [phone] Encounter Details Date Type Department Care Team (Late Contact Info) Description 10/20/2019 Telephone Hematology/Oncology at [address] [address] Johana Slater Social History Tobacco [...] Telephone Encounter - Johana Slater - 10/20/2019 1:14 PM EDT I spoke with Hieu to give him the appt for his labs that have been scheduled at [facility] for October 23 at 1230. He has been reminded that the appointment with Dr. Phillips will be a phone visit and he isamendable to a phone visit. documented in this encounter Plan of Treatment Upcoming Encounters Date Type Department Care Team ([facility] Contact Info) Description 01/10/2024 7:45 AM EDT Appointment Hematology [place] [address] 01/21/2024 10:[address] [place] [address] Heber Phillips MD [facility] DR HEMATOLOGY/[place] [address] 03/28/2024 10:00 AM EDT Office Visit Hematology/Oncology at [address] [address] Heber Phillips MD [facility] DR HEMATOLOGY/[place] [address] Isabella Baker APRN [facility] [place] [place] [address] documented as of this encounter Visit Diagnoses Not on filedocumented in this encounter Care Teams Propulsion Motor And Generator Repairer Relationship Specialty Start Date End Date Nataliya Messina MD [address] [place] [address] [address] [place] [address] PCP - General 10/02/11 01/11/22 documented as of this encounter
--- OUTSIDE RECORDS SUMMARY | 2024-01-05 02:43 | XMS_ITS | Encounter Summary ---
Author Organization [facility] [place] [address] Care Team Providers Care Corporate Scheduler Name Role Phone Nataliya Messina MD Primary Care Provider [phone] Reason for Referral * Diagnostic Test (Routine) - Closed Specialty Diagnoses / Procedures Referred By Contac t Referred To Contact Radiology Diagnoses Small cell lung cancer, right upper lobe Procedures NM PET CT Skull Base to Mid-thigh Heber Phillips MD [facility] DR HEMATOLOGY/[place] [address] [place] [address] Referral ID Status Reason Start Date Expiration Date V isits Requested Visits Authorized [id number] Closed Specialty Service Requested 10/31/2019 05/02/2021 1 1 Encounter Details Date Type Department Care Team (Latest Contact Info) Description 10/24/2019 3:30 PM EDT TH Visit (TeleHealth) Hematology/Oncology at [address] [address] Heber Phillips MD [facility] [place]OLOGY/[place] [address] Mary Cleaning, RN SOB (shortness of breath); Small cell lung cancer, right upper lobe [...] as of this encounter Progress Notes * Heber Phillips MD - 10/24/2019 3:30 PM EDT Images from the original note were not included. Reason/purpose for phone call: The patient voiced an understanding of the reason and intent of the phone call, and provided verbalconsent to discuss clinical issues by phone. Additionally, the patient acknowledged that a telephone consultation is a billable encounter, and that the patient or their medical insurance carrier could be billed. Diagnosis: High-grade neuroendocrine cancer of right lung, limited stage, clinical: stage IIIA (cT3, cN1, cM0) Subjective: I feel windy HPI:Hieu Tillman is 64 y.o. M [...] referred for consideration of definitive chemoradiation. Subjective: I called Mr. Tillman to follow on small cell lung cancer and discussion of restaging PET scan. Overall, he feels at his baseline. He complains on shortness of breath with minimal exertion andcough with some phlegm. Follows with maintenance engineer oil field. Denies any pain. Denies any nausea, vomiting orpain. No fever or chills. No other focal complaints. PMH: No interval changes since last visit [place] in 2013 status post 2 stents placement, [...] infarction [place] about 6 years ago [place] [facility] ??? 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 Marital status: [...] file Gets together: Not on file Attends yazdanism service: Not on file Active member of [...] Social History Narrative Lives with his in [place], [place]. 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 [...] Medications: Your Medications Accurate as of October 24, 2019 3:44 PM. If you have any questions, ask [...] by mouth daily. 1 tablet Refills: 0 rancqmhgkyp-nnzwdxttk-drmxdncs 100-62.5-25 mcg Dsdv Inhale 1 puff into [...] Negative. Neurological: Negative. Hematological: Negative for adenopathy. There were no vitals taken for this visit. Wt Readings from Last 3 Encounters: 07/10/19 83.2 kg (183 lb 6.8 oz) 06/06/19 83 kg (183 lb) 05/19/19 81.6 kg (180 lb) Physical Exam Constitutional: He is oriented to person, place, and time. He appears well- developed and well-nourished. HENT: Mouth/Throat: Oropharynx is clear and moist. No oropharyngeal exudate. Eyes: Conjunctivae are normal. Pupils are equal, round, and reactive to light. Neck: Normal range of motion. Neck supple. Cardiovascular: Normal rate and regular rhythm. Pulmonary/Chest: Effort normal. Visit, lung sounds bilaterally Abdominal: Soft. He exhibits [...] content normal. His affect is labile. Labs: 10/24/19 WBC 8.18, hemoglobin 13.3, platelet count 464, ANC 5.99 sodium 127, BUN 17, creatinine 1.13, calcium 8.9, AST 22, ALT 38, alkaline phosphatase 129, total protein 7.6, albumin 3.8. 06/02/2009 BUN 13, creatinine 1.05, calcium 10.1, 6, ALT 43, alkaline phosphatase 112, total protein 7.6, albumin 4.0, 24, potassium 4.7, WBC 8.33, hemoglobin 13.9, platelet count 420, ANC 5.91 Imagin10/16/19 PET-CT scan: IMPRESSION 1. No evidence for [...] changes in the right upper lobe. ?? 8/05/19 T scan of chest abdomen and pelvis [...] Dr. Cadena. Hieu declined PCI. Mr. Tillman is doing well. His main concern is dyspnea what he follows for with pulmonary team. Surveillance PET scan is negative for metastatic disease. We will continue observation see him back with surveillance brain MRI, PET scan and blood work in 4 months. #Depression: feels better on Celexa #Dyspnea/dry cough: Following with pulmonary team Exertional dyspnea is getting worse. [place] better on prednisone in the beginning but after tapering off prednisone cough and dyspnea back. 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 Brain MRI in 3 months 2 Next visit with [facility], CMP and PET scan in 4 months The plan was discussed with the patient in details. All questions were answered to patient's satisfaction. documented in this encounter Plan of Treatment Upcoming Encounters Date Type Department Care Team (Late st Contact Info) Description 01/10/2024 7:45 AM EDT Appointment Hematology [place] [address] 01/21/2024 10:[address] [place] [address] Heber Phillips MD [facility] DR HEMATOLOGY/[place] [address] 03/28/2024 10:00 AM EDT Office Visit Hematology/Oncology at [address] [address] Heber Phillips MD [facility] DR HEMATOLOGY/[place] [address] Isabella Baker APRN [facility] [place] [address] documented as of this encounter Results * [...] lung cancer TECHNIQUE: Following IV injection of 85-derrfi-0-deoxyglucose (FDG) a standard uptake of approximately 60 [...] lung cancer TECHNIQUE: Following IV injection of 45-qdouvu-9-deoxyglucose (FDG) astandard uptake of approximately 60 minutes, [...] contact the number below. Heber Phillips MD IMG PET ORDERABLES documented in this encounter Visit Diagnoses Diagnosis SOB (shortness of breath) Shortness of breath Small cell lung cancer, right upper lobe Small cell lung cancer, right upper lobe documented in this encounter Care Teams Corporate Scheduler Relationship Specialty Start Date End Date Nataliya Messina MD [address] [place] [address] [address] [facility] 1 [place] [address] PCP - General 10/02/11 01/11/22 documented as of this encounter
--- OUTSIDE RECORDS SUMMARY | 2024-01-05 02:43 | XMS_ITS | Encounter Summary ---
Author Organization [facility] [place] [address] Care Team Providers Care Car Pre Cooler Name Role Phone Nataliya Messina MD Primary Care Provider [phone] Reason for Visit * Diagnostic Test (Routine) - Closed Specialty Diagnoses / Procedures Referred By Contac t Referred To Contact Radiology Diagnoses Small cell lung cancer, right upper lobe Procedures NM PET CT Skull Base to Mid-thigh Heber Phillips MD [facility] DR HEMATOLOGY/[place] [address] [place] [address] Referral ID Status Reason Start Date Expiration Date V isits Requested Visits Authorized [id number] Closed Specialty Service Requested 06/06/2019 12/05/2020 1 1 Encounter Details Date Type Department Care Team (Latest Contact Info) Description 10/16/2019 10:01 AM EDT - 10/16/2019 11:59 PM EDT Hospital Encounter [place] [address] Heber Phillips MD [facility] HEMATOLOGY/[place] [address] Discharge Disposition: Home Social History [...] AM EDT Appointment Hematology [place] [address] 01/21/2024 10:[address] [place] [place] [address] Heber Phillips MD [facility] HEMATOLOGY/[place] [address] 03/28/2024 10:00 AM EDT Office Visit Hematology/Oncology at [address] [phone] Heber Phillips MD [facility] HEMATOLOGY/[place] [address] Isabella Baker APRN [facility] [address] documented as of this encounter Procedures Procedure Name Priority Date/Time Associated Diagnosis Comments NM PET CT SKULL BASE TO MID-THIGH (LCSR) Routine 10/16/2019 11:34 AM EDT Small cell lung cancer, right upper lobe POCT GLUCOSE Routine 10/16/2019 10:17 AM EDT documented in this encounter Results * POCT Glucose (10/16/2019 10:17 AM EDT) POC Glucose 125 65 - 199 mg/dL [facility] Comment: Supplemental ranges: <140 mg/dL before meals <180 mg/dL all other times of the day Blood specimen (specimen) 10/16/2019 10:17 AM EDT 10/16/2019 10:17 AM EDT Heber Phillips MD POINT OF CARE TEST O RDERABLES [facility] [place] [address] documented in this encounter Visit Diagnoses Not on filedocumented in this encounter Care Teams Car Pre Cooler Relationship Specialty Start Date End Date Nataliya Messina MD [address] [place] [address] PCP - General 10/02/11 01/11/22 documented as of this encounter
--- OUTSIDE RECORDS SUMMARY | 2024-01-05 02:43 | XMS_ITS | Encounter Summary ---
[place] [address] Care Team Providers Care Rheumatology Specialist Name Role Phone Nataliya Messina MD Primary Care Provider [phone] Encounter Details Date Type Department Care Team (Late st Contact Info) Description 10/25/2020 Telephone [place] [address] Geetha Burk Social History Tobacco Use Types Packs/Day Years [...] encounter Miscellaneous Notes * Telephone Encounter - Geetha Burk - 10/25/2020 2:33 PM EDT Hieu Tillman [id number] Diagnosis/Indication: abnormal PET scan 'new small focus on FDG uptake in the cecum' 1. Have you ever had a/an Colonoscopy before? Yes: Date 2013 If yes, did you have any problems with the procedure? No What type of sedation was used: General Anesthesia 2. Do you take any blood thinners or have you been diagnosed with a bleeding disorder that increases your risk of bleeding with procedures? Yes: Type: plavix 3. Do you have a Pacemaker or Defibrillator device? No 4. Are you a diabetic? No 5. Do you have any Allergies to Eggs, Latex or Medications? Yes: see edh 6. Do you take any Oral Iron Supplements (Including multi-vitamins)? No 7. Do you have a history of three or more abdominal surgeries? No 8. Have you had a problem with sedation or anesthesia? Yes 9. Do you use a c-pap machine or oxygen tank? Neither 10. Do you take prescription narcotic pain medications, including suboxone or methodone? No 11. Do you have a preference regarding the gender of your provider? No Preference 12. Is there any other information you would like to us to note for the provider and nursing team who will perform your case? Yes: patient hx of stroke 13. Say to patient: You must have a responsible republican who will drive you to your procedure, stay oncampus for the entire duration of your procedure, and drive you home from your procedure? *Please Verify the height and weight, and adjust if height and/or weight have changed* Estimated body mass index is 30.09 kg/m?? as calculated from the following: Height as of 09/17/20: 166.4 cm (5' 5.5). Weight as of 09/17/20: 83.3 kg (183 lb 9.6 oz). Age:65 y.o. documented in this encounter Plan of Treatment Upcoming Encounters Date Type Department Care Team (Late st Contact Info) Description 01/10/2024 7:45 AM EDT Appointment Hematology [place] [address] 01/21/2024 10:[address] [place] [address] Heber Phillips MD [facility] HEMATOLOGY/[place] [address] 03/28/2024 10:00 AM EDT Office Visit Hematology/Oncology at [address] [address] Heber Phillips MD [facility] HEMATOLOGY/[place] [address] Isabella Baker APRN [facility] DR MEDICAL ONCOLOGY [place], [place] [address] documented as of this encounter Visit Diagnoses Not on filedocumented in this encounter Care Teams Rheumatology Specialist Relationship Specialty Start Date End Date Nataliya Messina MD [address] [place] [address] [address] [facility] 1 [place] [address] PCP - General 10/02/11 01/11/22 documented as of this encounter
--- OUTSIDE RECORDS SUMMARY | 2024-01-05 02:43 | XMS_ITS | Encounter Summary ---
Author Organization [facility] Address [facility] [place] [address] Care Team Providers Care Billet Header Name Role Phone Nataliya Messina MD Primary Care Provider [phone] Reason for Visit * Reason Comments Follow-up 6 month f/u CAD Encounter Details Date Type Department Care Team (Late st Contact Info) Description 05/03/2020 10:20 AM EST Office Visit Cardiology at [address] [address] Ramandeep Choudhary MD [facility] [place] [address] Essential hypertension; Coronary artery disease involving burns paiute heart without angina pectoris, unspecified vessel or lesion type Social History [...] Sign Reading Time Taken Comments Blood Pressure 124/74 05/03/2020 10:35 AM EST Pulse 78 05/03/2020 10:35 AM EST Temperature - - Respiratory Rate - - Oxygen Saturation - - Inhaled Oxygen Concentration - - Weight 80.7 kg (178 lb) 05/03/2020 10:35 AM EST Height 167.6 cm (5' 6) 05/03/2020 10:35 AM EST Body Mass Index 28.73 05/03/2020 10:35 AM EST documented in this encounter Progress Notes * Ramandeep Choudhary MD - 05/03/2020 10:20 AM EST CARDIOLOGY OUTPATIENT FOLLOW-UP NOTE PRIMARY [...] Outpatient Medications Medication Sig Dispense Refill ??? pantoprazole (PROTONIX) 40 mg Tablet, Delayed Release (E.C.) Take 40 mg by mouth daily. ??? magnesium chloride (MAG-DELAY ORAL) Take 1 tablet by mouth every other day. ??? tiotropium (SPIRIVA WITH HANDIHALER) 18 mcg [...] Take 81 mg by mouth daily. ??? Combivent Respimat 20-100 mcg/actuation Mist INHALE 1 PUFF BY MOUTH FOUR TIMES A DAY NEEDED FOR COPD No current facility-administered medications for this visit. Subjective: Patient ID: Hieu Tillman is a 64 y.o. male. HPI This is a 6-month follow-up for this 64-year-old man. His last visit was a telehealth back in October. Overall he has been doing well without interim hospitalizations or illnesses. He has been followingwith oncology and his scans have shown no definite recurrence of tumor His biggest issue is still shortness of breath attributed to COPD. Despite this he is able to do most activities around his property. He has been splitting wood, gardening and plans to go deer hunting with his 12-year-old grandson He has had no chest pain Review of System Review of Systems Cardiovascular: Positive for dyspnea on exertion. Negative for chest pain, leg swelling, near-syncope and palpitations. Respiratory: Positive for cough and shortness of breath. Family History: Family History Problem Relation Age [...] since quittin.6 ??? Smokeless tobacco: Never Used Substance and [...] file Gets together: Not on file Attends scientology service: Not on file Active member of [...] Social History Narrative Lives with his in [place], [place]. 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 Has 5 children and many grandchildren. Objective: Physical Exam Vitals signs and nursing note reviewed. Constitutional: Comments: Well-developed well-nourished looks younger than stated age no acute distress Eyes: Extraocular Movements: Extraocular movements intact. Pupils: Pupils are equal, round, and reactive to light. Neck: Musculoskeletal: Normal range of motion and neck supple. Vascular: No carotid bruit. Cardiovascular: Rate and Rhythm: Normal rate and regular rhythm. Heart sounds: No murmur. No gallop. Pulmonary: Comments: Diffusely diminished breath sounds Abdominal: Tenderness: There is no abdominal tenderness. Musculoskeletal: Comments: No peripheral edema Skin: General: Skin is warm and dry. Neurological: Mental Status: He is oriented to person, place, and time. Patient Vitals for the past 24 hrs: Pulse BP 05/03/20 1035 78 124/74 Assessment and Plan: #1. Atherosclerotic cardiovascular disease. Patient describes adequate exercise tolerance without anginal symptoms #2. Hypertension. Good blood pressure control on current medications In the absence of new issues or concerns, we will plan follow-up in approximately 1 year Thank you for the opportunity to participate in this patient's cardiovascular care. All questions were answered and I look forward to the next visit. documented in this encounter Plan of Treatment Upcoming Encounters Date Type Department Care Team (Late st Contact Info) Description 01/10/2024 7:45 AM EDT Appointment Hematology [place] [address] 01/21/2024 10:[address] [place] [address] Heber Phillips MD [facility] DR HEMATOLOGY/[place] [address] 03/28/2024 10:00 AM EDT Office Visit Hematology/Oncology at [address] [address] Heber Phillips MD [facility] DR HEMATOLOGY/[place] [address] Isabella Baker APRN 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
--- OUTSIDE RECORDS SUMMARY | 2024-01-05 02:44 | XMS_ITS | Encounter Summary ---
Author Organization [facility] [place] [address] Care Team Providers Care Roller Painter Name Role Phone Nataliya Messina MD Primary Care Provider [phone] Reason for Visit * Diagnostic Test (Routine) - Closed Specialty Diagnoses / Procedures Referred By Contac t Referred To Contact Radiology Diagnoses Small cell lung cancer, right upper lobe Procedures NM PET CT Skull Base to Mid-thigh Heber Phillips MD [facility] DR HEMATOLOGY/[place] [address] [place] [address] Referral ID Status Reason Start Date Expiration Date V isits Requested Visits Authorized [id number] Closed Specialty Service Requested 03/07/2019 03/06/2020 1 1 Encounter Details Date Type Department Care Team (Latest Contact Info) Description 05/25/2019 9:49 AM EST - 05/25/2019 11:59 PM [facility] Hospital Encounter [place] [address] Heber Phillips MD [facility] HEMATOLOGY/[place] [address] Discharge Disposition: Home Social History [...] mg Tablet Take by mouth. 11/02/2016 10/13/2022 LORazepam (ATIVAN) 1 mg TabletIndications:Small cell lung cancer, right upper lobe Take [...] AM EDT Appointment Hematology [place] [address] 01/21/2024 10:[address] [place] [address] Heber Phillips MD [facility] DR HEMATOLOGY/[place] [address] 03/28/2024 10:00 AM EDT Office Visit Hematology/Oncology at [address] [address] Heber Phillips MD [facility] DR HEMATOLOGY/[place] [address] Isabella Baker APRN [facility] [place] [address] documented as of this encounter Procedures Procedure Name Priority Date/Time Associated Diagnosis Comments NM PET CT SKULL BASE TO MID-THIGH ([facility]) Routine 05/25/2019 11:33 AM EST Small cell lung cancer, right upper lobe POCT GLUCOSE Routine 05/25/2019 10:03 AM EST documented in this encounter Results * POCT Glucose (05/25/2019 10:03 AM EST) POC Glucose 113 65 - 199 mg/dL [facility] Comment: Supplemental ranges: <140 mg/dL before meals <180 mg/dL all other times of the day Blood specimen (specimen) 05/25/2019 10:03 AM EST 05/25/2019 10:03 AM EST Heber Phillips MD POINT OF CARE TEST O RDERABLES [facility] [place] [address] documented in this encounter Visit Diagnoses Not on filedocumented in this encounter Care Teams Roller Painter Relationship Specialty Start Date End Date Nataliya Messina MD [address] [place] [address] PCP - General 10/02/11 01/11/22 documented as of this encounter
--- OUTSIDE RECORDS SUMMARY | 2024-01-05 02:44 | XMS_ITS | Encounter Summary ---
[place] [address] Care Team Providers Care Netbackup Engineer Name Role Phone Nataliya Messina MD Primary Care Provider [phone] Reason for Visit * Reason Onset Date Comments Follow-up 03/28/2019 Encounter Details Date Type Department Care Team ([facility] Contact Info) Description 03/28/2019 Telephone Hematology/Oncology at [address] [address] Aleida Knight RN Follow-up Social [...] Telephone Encounter - Aleida Knight RN - 03/28/2019 9:28 AM EDT Unable to reach Hieu on his phone or leave a message.Left message for Hieu with his sister that MRI of head per Dr. Phillips was negative for cancer. He will call with questions or concerns. documented in this encounter Plan of Treatment Upcoming Encounters Date Type Department Care Team (Late Contact Info) Description 01/10/2024 7:45 AM EDT Appointment [place] [address] 01/21/2024 10:[address] [place] [place] [address] Heber Phillips MD [facility] DR HEMATOLOGY/[place] [address] 03/28/2024 10:00 AM EDT Office Visit Hematology/Oncology at [address] [address] Heber Phillips MD [facility] DR HEMATOLOGY/[place] [address] Isabella Baker APRN [facility] [place] [address] documented as of this encounter Visit Diagnoses Not on filedocumented in this encounter Care Teams Netbackup Engineer Relationship Specialty Start Date End Date Nataliya Messina MD [address] [place] [address] [address] [place], [place] [id number] PCP - General 10/02/11 01/11/22 documented as of this encounter
--- OUTSIDE RECORDS SUMMARY | 2024-01-05 02:44 | XMS_ITS | Encounter Summary ---
Author Organization [facility] Address [facility] [place] [address] Care Team Providers Care Student Services Coordinator Name Role Phone Nataliya Messina MD Primary Care Provider [phone] Reason for Visit * Reason Onset Date Comments Medication Refill 07/17/2019 trelegy denied , change to nebulized medications Encounter Details Date Type Department Care Team (Late st Contact Info) Description 07/17/2019 Refill Pulmonology at [facility] [place] [address] Mariella Sarmiento MD [facility] [place] [address] COPD, very severe Social History Tobacco Use Types Packs/Day Years [...] encounter Miscellaneous Notes * Telephone Encounter - Wen Ashford RN - 07/17/2019 3:07 PM EST Received faxed letter from [employer] that the Trelegy inhaler rx has been denied as non-formulary. Pt must try two covered drugs first: Anoro Ellipta Bevespi SErevent Stiolto Or have letter from MD stating medical reasons why two of the covered drugs are not appropriate. Forwarded letter to Dr. Sarmiento for recommendation and was asked to pend orders for duonebs, budesonide and nebulizer. Budesonide rx and nebulizer already sent on 07/10. New order for dounebs pended as requested. Wen Ashford, RN, BSN Pulmonary Department [email or web address] Phone: [phone] Pager: [phone] documented in this encounter Plan of Treatment Upcoming Encounters Date Type Department Care Team (Late st Contact Info) Description 01/10/2024 7:45 AM EDT Appointment Hematology [place] [address] 01/21/2024 10:[address] [place] [address] Heber Phillips MD [facility] DR HEMATOLOGY/[place] [address] 03/28/2024 10:00 AM EDT Office Visit Hematology/Oncology at [address] [address] Heber Phillips MD [facility] DR HEMATOLOGY/[place] [address] Isabella Baker APRN [facility] [place] [address] documented as of this encounter Visit Diagnoses Diagnosis COPD, very severe Chronic airway obstruction, not elsewhere classified documented in this encounter Care Teams Student Services Coordinator Relationship Specialty Start Date End Date Nataliya Messina MD [address] [place] [address] [address] [place] [address] PCP - General 10/02/11 01/11/22 documented as of this encounter
--- OUTSIDE RECORDS SUMMARY | 2024-01-05 02:44 | XMS_ITS | Encounter Summary ---
[facility] [place] [address] Care Team Providers Care Proofer Name Role Phone Nataliya Messina MD Primary Care Provider [phone] Encounter Details Date Type Department Care Team (Late Contact Info) Description 09/08/2019 Telephone [place] [address] Carmenza Price, ROUTE SALES SPECIALIST Social History Tobacco Use Types Packs/Day Years [...] AM EDT Appointment Hematology [place] [address] 01/21/2024 10:[address] [place] [address] Heber Phillips MD [facility] HEMATOLOGY/[place] [address] 03/28/2024 10:00 AM EDT Office Visit Hematology/Oncology at [address] [address] Heber Phillips MD [facility] DR HEMATOLOGY/[place] [address] Isabella Baker APRN [facility] [place] [address] documented as of this encounter Visit Diagnoses Not on filedocumented in this encounter Care Teams Proofer Relationship Specialty Start Date End Date Nataliya Messina MD [address] [place], [place] [address] PCP - General 10/02/11 01/11/22 documented as of this encounter
--- OUTSIDE RECORDS SUMMARY | 2024-01-05 02:44 | XMS_ITS | Encounter Summary ---
Author Organization [facility] [place] [address] Care Team Providers Care Supervisor Felling Bucking Name Role Phone Nataliya Messina MD Primary Care Provider [phone] Encounter Details Date Type Department Care Team (Late Contact Info) Description 06/20/2019 Telephone [place] [address] Jessica Butterfield Social History Tobacco Use Types Packs/Day Years [...] AM EDT Appointment Hematology [place] [address] 01/21/2024 10:[address] [place] [place] [address] Heber Phillips MD [facility] HEMATOLOGY/[place] [address] 03/28/2024 10:00 AM EDT Office Visit Hematology/Oncology at [address] [address] Heber Phillips MD [facility] DR HEMATOLOGY/[place] [address] Isabella Baker APRN [facility] [place] [address] documented as of this encounter Visit Diagnoses Not on filedocumented in this encounter Care Teams Supervisor Felling Bucking Relationship Specialty Start Date End Date Nataliya Messina MD [address] [place], [place] [address] PCP - General 10/02/11 01/11/22 documented as of this encounter
--- OUTSIDE RECORDS SUMMARY | 2024-01-05 02:44 | XMS_ITS | Encounter Summary ---
Author Organization [facility] [place] [address] Care Team Providers Care Lead Vulcanizing Operator Name Role Phone Nataliya Messina MD Primary Care Provider [phone] Reason for Referral * Diagnostic Test (Routine) - Closed Specialty Diagnoses / Procedures Referred By Contac t Referred To Contact Radiology Diagnoses Small cell lung cancer, right upper lobe Procedures NM PET CT Skull Base to Mid-thigh Bettie Serrano APRN [address] [place] [address] [place] [address] Referral ID Status Reason Start Date Expiration Date V isits Requested Visits Authorized [id number] Closed Specialty Service Requested 02/07/2019 02/07/2020 1 1 Encounter Details Date Type Department Care Team (Late st Contact Info) Description 02/07/2019 1:30 PM EDT Office Visit Hematology/Oncology at [address] [address] Bettie Serrano APRN [address] [place] [phone] Small cell lung cancer, right upper lobe [...] Sign Reading Time Taken Comments Blood Pressure 124/59 02/07/2019 1:23 PM EDT Pulse 104 02/07/2019 1:23 PM EDT Temperature 36.4 ??C (97.5 ??F) 02/07/2019 1:23 PM ED T Respiratory Rate 20 02/07/2019 1:23 PM EDT Oxygen Saturation 95% 02/07/2019 1:23 PM EDT Inhaled Oxygen Concentration - - Weight 81.6 kg (179 lb 12.8 oz) 02/07/2019 1:23 PM EDT Height 167.6 cm (5' 6) 02/07/2019 1:23 PM EDT Body Mass Index 29.02 02/07/2019 1:23 PM EDT documented in this encounter Progress Notes * Bettie Serrano, HOT BOX OPERATOR - 02/07/2019 1:30 PM EDT Subjective: Patient ID: Hieu Tillman is a 63 y.o. male. Diagnosis: High-grade neuroendocrine cancer of right lung, limited stage, clinical: stage IIIA (cT3, cN1, cM0) HPI: Hieu Tillman is 63 y.o. M referred by Dr. Ortiz for consultation on new diagnosis of high-grade neuroendocrine cancer of right lung. He was referred [...] referred for consideration of definitive chemoradiation. Interval History: Mr. Tillman is in clinic for follow-up appointment on small cell lung cancer and discussion of CT scan.His exertional dyspnea and shortness of breath is stable. He received 2 new inhalers from his PCP. Denies pain, fever, chills, night sweats, or unusual bleeding. PMH, PSH, FH, and SH: Except as mentioned in the interim history, unchanged since last office visit. Review of Systems Constitutional: Negative. HENT: Negative. Eyes: Negative. Respiratory: Positive for apnea and shortness of breath. Cardiovascular: Negative. Gastrointestinal: Negative. Endocrine: Negative. Genitourinary: Negative. Musculoskeletal: Negative. Skin: Negative. Allergic/Immunologic: Negative. Neurological: Negative. Hematological: Negative. Psychiatric/Behavioral: Negative. Objective: Physical Exam Constitutional: He is oriented to person, place, and time. He appears well- developed and well-nourished. HENT: Head: Normocephalic and atraumatic. Nose: Nose normal. Mouth/Throat: Oropharynx is clear and moist. Eyes: Conjunctivae and EOM are normal. Neck: Normal range of motion. Neck supple. Cardiovascular: Normal rate and regular rhythm. Pulmonary/Chest: Effort normal and breath sounds normal. Abdominal: Soft. Bowel sounds are normal. Musculoskeletal: Normal range of motion. Neurological: He is alert and oriented to person, place, and time. Skin: Skin is warm and dry. Psychiatric: He has a normal mood and affect. His behavior is normal. Vitals reviewed. Vitals: BP 124/59 (Patient Position: Sitting) Pulse (!) 104 Temp 36.4 ??C (97.5 ??F) (Oral) Resp 20 Ht 167.6 cm (5' 6) Wt 81.6 kg (179 lb 12.8 oz) SpO2 95% BMI 29.02 kg/m?? 02/07/19 LABs: WBC 12.2, Hgb./Hct. 13.8/40.1, Plts. 400, ANC 11.40 Chem: Na/K+ 130/4.3, BUN/Creat. 18/0.9, AST 20, ALT 25, Alk. Phos. 104. CT Chest, Abdomen & Pelvis w/Contrast 01/23/2019 IMPRESSION: Enlarging and new right upper lobe airspace opacities with progression of interstitial thickening and increased burden of right upper lobe irregular pleural thickening in the setting of a stable right upper lobe mass with soft tissue contiguous to the mediastinum and right hilum. Cannot distinguishpost radiation changes from progression of disease. Pet scan may be heldful for distinguishing these. 3.3cm dilation pf infrarenal abdominal aorta. Assessment and Plan: 1. Small cell lung cancer. Treated with radiation and chemotherapy. 2. Reviewed lab results with patient and family. Also Reviewed results of CT scan with patient and family. 3. Schedule patient for PET to better ascertain if there is progression or post radiaton changes. 4. RTC for OV with MD in 2 weeks, PET scan prior to visit. Bettie Serrano, MSN, HOT BOX OPERATOR, AOCNP documented in this encounter Plan of Treatment Upcoming Encounters Date Type Department Care Team (Late st Contact Info) Description 01/10/2024 7:45 AM EDT Appointment [place]ology [place] [address] 01/21/2024 10:[address] [place] [place] [address] Heber Phillips MD [facility] DR HEMATOLOGY/[place] [address] 03/28/2024 10:00 AM EDT Office Visit Hematology/Oncology at [address] [phone] Heber Phillips MD [facility] DR HEMATOLOGY/[place] [address] Isabella Baker APRN [facility] [place] [address] documented as of this encounter Results * NM PET CT Skull Base to Mid-thigh (02/27/2019 9:56 AM EDT) Anatomical Region Laterality Modality Positron Emissio n Tomography (PET) Impressions 02/27/2019 11:15 AM EDT 1. ??No evidence for residual active malignancy or metastasis. 2. ??Post radiation changes in the right upper lobe. Thank you for letting us participate in the care of this patient. For questions regarding this report, please contact the number below. ? Electronically signed by: Tino Gallardo [facility] ([phone]), at 02/27/2019 11:15 AM Narrative 02/27/2019 11:15 AM EDT EXAMINATION: NM PET CT SKULL BASE TO MID-THIGH ? CLINICAL HISTORY: Response to therapy. TECHNIQUE: Following IV injection of 41-facjxv-2-deoxyglucose (FDG) a standard uptake of approximately 60 minutes, a noncontrast CT scan followed by a PET scan were acquired from the base of the skull to mid thighs. The noncontrast CT was used for anatomic localization and photon attenuation correction of the PET scan. Blood glucose level: 107 (mg/dL) FDG dose: 12.1 mCi COMPARISON: PET/CT 10/14/2018 FINDINGS: HEAD/NECK: Normal activity in all soft tissue regions of the neck and visualized lower head. No adenopathy. CHEST: The ill-defined residual right upper lobe mass has no significant activity above reference mediastinal background and is not significantly changed in anatomic size compared to prior study of 10/14/2018. Continued interval decreased activity of the postradiation ill defined fibrotic changes in the right upper lobe adjacent and peripheral to the primary mass with no significant activity above reference mediastinal background. Normal activity in all other soft tissue regions. No significant adenopathy. ABDOMEN/PELVIS: Normal activity in all soft tissue regions. Stable 31 mm infrarenal abdominal aortic aneurysm. Diverticular disease without evidence for diverticulitis. SKELETON/EXTREMITIES: Decreased marrow activity in the upper thoracic spine is consistent with postradiation change. Normal marrow activity in all other regions of the axial and visualized proximal appendicular skeleton. Procedure Note Tino Gallardo MD - 02/27/2019 EXAMINATION: NM PET CT SKULL BASE TO MID-THIGH CLINICAL HISTORY: Response to therapy. TECHNIQUE: Following IV injection of 54-omdprh-2-deoxyglucose (FDG) astandard uptake of approximately 60 minutes, a noncontrast CT scan followed by aPET scan were acquired from the base of the skull to mid thighs. The noncontrast CTwas used for anatomic localization and photon attenuation correction of thePET scan. Blood glucose level: 107 (mg/dL) FDG dose: 12.1 mCi COMPARISON: PET/CT 10/14/2018 FINDINGS: HEAD/NECK: Normal activity in all soft tissue regions of the neck and visualizedlower head. No adenopathy. CHEST: The ill-defined residual right upper lobe mass has no significant activityabove reference mediastinal background and is not significantly changed inanatomic size compared to prior study of 10/14/2018. Continued interval decreasedactivity of the postradiation ill defined fibrotic changes in the right upperlobe adjacent and peripheral to the primary mass with no significant activityabove reference mediastinal background. Normal activity in all other softtissue regions. No significant adenopathy. ABDOMEN/PELVIS: Normal activity in all soft tissue regions. Stable 31 mm infrarenalabdominal aortic aneurysm. Diverticular disease without evidence fordiverticulitis. SKELETON/EXTREMITIES: Decreased marrow activity in the upper thoracic spine is consistent with postradiation change. Normal marrow activity in all other regions of theaxial and visualized proximal appendicular skeleton. IMPRESSION 1. No evidence for residual active malignancy or metastasis. 2. Post radiation changes in the right upper lobe. Thank you for letting us participate in the care of this patient. Forquestions regarding this report, please contact the number below. Electronically signed by: Tino Gallardo [facility]([phone]), at 02/27/2019 11:15 AM Bettie Serrano APRN IMG PET ORDERAB LES documented in this encounter Visit Diagnoses Diagnosis Small cell lung cancer, right upper lobe Small cell lung cancer, right upper lobe documented in this encounter Care Teams Lead Vulcanizing Operator Relationship Specialty Start Date End Date Nataliya Messina MD [address] [place] [address] [address] [facility] [address] [place] [address] PCP - General 10/02/11 01/11/22 documented as of this encounter
--- OUTSIDE RECORDS SUMMARY | 2024-01-05 02:44 | XMS_ITS | Encounter Summary ---
[place] [address] Care Team Providers Care Director Online Marketing Name Role Phone Nataliya Messina MD Primary Care Provider [phone] Encounter Details Date Type Department Care Team (Late st Contact Info) Description 08/04/2019 Telephone [place] [address] Johana Francois RT Social History Tobacco Use [...] Telephone Encounter - Johana Francois RT - 08/04/2019 10:30 AM EST Called Hieu Tillman at home and LM to call OP pulmonary rehab Regarding referral, and ? Closest facility for him to participate in OP pulmonary rehab. documented in this encounter Plan of Treatment Upcoming Encounters Date Type Department Care Team (Late st Contact Info) Description 01/10/2024 7:45 AM EDT Appointment H[place]ology [place] [phone] 01/21/2024 10:[address] [place] [address] Heber Phillips MD [facility] DR HEMATOLOGY/[place] [address] 03/28/2024 10:00 AM EDT Office Visit Hematology/Oncology at [address] [address] Heber Phillips MD [facility] HEMATOLOGY/[place] [address] Isabella Baker APRN [facility] [place] [address] documented as of this encounter Visit Diagnoses Not on filedocumented in this encounter Care Teams Director Online Marketing Relationship Specialty Start Date End Date Nataliya Messina MD [address] [place] [address] PCP - General 10/02/11 01/11/22 documented as of this encounter
--- OUTSIDE RECORDS SUMMARY | 2024-01-05 02:44 | XMS_ITS | Encounter Summary ---
Author Organization [facility] [place] [address] Care Team Providers Care Healthcare Recruiter Name Role Phone Nataliya Messina MD Primary Care Provider [phone] Reason for Referral * Diagnostic Test (Routine) - Closed Specialty Diagnoses / Procedures Referred By Contac t Referred To Contact Radiology Diagnoses Small cell lung cancer, right upper lobe Procedures CT Chest Abdomen Pelvis w Contrast (Generic) Heber Phillips MD [facility] [address] HEMATOLOGY/[place] [address] [facility] [place] [address] Referral ID Status Reason Start Date Expiration Date V isits Requested Visits Authorized [id number] Closed Specialty Service Requested 10/18/2018 10/18/2019 1 1 Reason for Visit * Diagnostic Test (Routine) - Closed Specialty Diagnoses / Procedures Referred By Contac t Referred To Contact Radiology Diagnoses Small cell lung cancer, right upper lobe Procedures CT Chest Abdomen Pelvis w Contrast (Generic) Heber Phillips MD [facility] [address] HEMATOLOGY/[place] [address] [facility] [place] [address] Referral ID Status Reason Start Date Expiration Date V isits Requested Visits Authorized [id number] Closed Specialty Service Requested 10/18/2018 10/18/2019 1 1 Encounter Details Date Type Department Care Team (Latest Contact Info) Description 01/23/2019 11:07 AM EDT - 01/23/2019 11:59 PM EDT Hospital Encounter [facility] Scan at [facility] [place] [address] Heber Phillips MD [facility] HEMATOLOGY/[place] [address] Small cell lung cancer, right upper lobe [...] mg Tablet Take by mouth. 11/02/2016 10/13/2022 predniSONE (DELTASONE) 50 mg TabletIndications:Smal l cell lung cancer, right upper lobe Take one tablet by mouth at 13 hours, 7 hours and 1 hour prior to scheduled exam 3 tablet 01/09/2019 05/19/2019 clopidogrel (PLAVIX) 75 mg tablet Take 1 [...] AM EDT Appointment Hematology [place] [address] 01/21/2024 10:[address] [place] [place] [address] Heber Phillips MD [facility] [address] HEMATOLOGY/[place] [address] 03/28/2024 10:00 AM EDT Office Visit Hematology/Oncology at [address] [id number] Heber Phillips MD [facility] [address] HEMATOLOGY/[place] [address] Isabella Baker APRN [facility] [place] [address] documented as of this encounter Procedures Procedure Name Priority Date/Time Associated Diagnosis Comments CT CHEST ABDOMEN PELVIS W CONTRAST (GENERIC) Routine 01/23/2019 2:20 PM EDT Small cell lung cancer, right upper lobe documented in this encounter Results * CT Chest Abdomen Pelvis w Contrast (Generic) (01/23/2019 2:20 PM EDT) Anatomical Region Laterality Modality Abdomen, Pelvis Computed Tomogra phy Impressions 01/23/2019 3:50 PM EDT Enlarging and new right upper lobe airspace [...] these. 3.3 cm dilation infrarenal abdominal aorta. Thank you for letting us participate in the care of this patient. For questions regarding this report, please contact the number below. ? Narrative 01/23/2019 3:50 PM EDT EXAMINATION: CT CHEST ABDOMEN PELVIS W CONTRAST (GENERIC) CLINICAL HISTORY: Restaging of limited stage small cell carcinoma of lung primary TECHNIQUE: Helical CT of the chest, abdomen, and pelvis was performed following intravenous administration of contrast. Administered 91.0 ml of OMNIPAQUE 350.00 mg/ml. Oral contrast was administered. COMPARISON: PET scan October 14, 2018 and August 16, 2018 FINDINGS: Chest: Lungs and large airways: Stable size of right upper lobe mass which extends to the suprahilar mediastinum with stable suprahilar soft tissue. 5 new and enlarging right upper lobe airspace opacities with progression in extent of interstitial thickening. Pleura: Increased burden of right upper lobe irregular pleural thickening. No effusion. Heart/vasculature: Normal size heart. Small pericardial effusion is stable. No central pulmonary emboli. Lymph nodes: Stable right suprahilar soft tissue. Mediastinum and rock: Stable degree of soft tissue encasing the narrowed right main stem bronchus and branches to the right upper lobe contiguous to soft tissue about the precarinal trachea. Right internal jugular MediPort catheter tip projected in satisfactory position at the cavoatrial junction. Abdomen/pelvis: Liver: Stable subcentimeter hypodense lesions. None of these exhibited avidity at PET scan. Bile ducts: Nondilated. Gallbladder: No calcified gallstones. Normal caliber wall. Pancreas: Normal attenuation without ductal dilatation. Spleen: Normal. Adrenals: Normal. Kidneys: Nonobstructing 3 mm left interpolar calculus is stable. Cortical right hypodense lesions likely cysts are stable. These were not PET avid. Urinary Bladder: Normal. Vasculature: 3.3 cm maximum caliber infrarenal abdominal aorta. Lymph Nodes: ??No enlarged lymph nodes. Bowel: Diverticulosis without acuity. Normal caliber loops of large and small bowel. Peritoneum and mesentery: No ascites, free air, or loculated fluid collection. No mesenteric inflammation. Abdominal wall: Stable small fat filled inguinal region hernias. Reproductive organs: Normal prostate contour Osseous structures: No suspicious lesions Procedure Note Pushpa Arceo MD - 01/23/2019 EXAMINATION: CT CHEST ABDOMEN PELVIS W CONTRAST (GENERIC) CLINICAL HISTORY: Restaging of limited stage small cell carcinoma oflung primary TECHNIQUE: Helical CT of the chest, abdomen, and pelvis was performedfollowing intravenous administration of contrast. Administered 91.0 ml of [id number] mg/ml. Oral contrast was administered. COMPARISON: PET scan October 14, 2018 and August 16, 2018 FINDINGS: Chest: Lungs and large airways: Stable size of right upper lobe mass whichextends to the suprahilar mediastinum with stable suprahilar soft tissue. 5 new and enlarging right upper lobe airspace opacities with progression in extentof interstitial thickening. Pleura: Increased burden of right upper lobe irregular pleural thickening.No effusion. Heart/vasculature: Normal size heart. Small pericardial effusion isstable. No central pulmonary emboli. Lymph nodes: Stable right suprahilar soft tissue. Mediastinum and rock: Stable degree of soft tissue encasing the narrowedright main stem bronchus and branches to the right upper lobe contiguous tosoft tissue about the precarinal trachea. Right internal jugular MediPort catheter tip projected in satisfactoryposition at the cavoatrial junction. Abdomen/pelvis: Liver: Stable subcentimeter hypodense lesions. None of these exhibitedavidity at PET scan. Bile ducts: Nondilated. Gallbladder: No calcified gallstones. Normal caliber wall. Pancreas: Normal attenuation without ductal dilatation. Spleen: Normal. Adrenals: Normal. Kidneys: Nonobstructing 3 mm left interpolar calculus is stable. Corticalright hypodense lesions likely cysts are stable. These were not PET avid. Urinary Bladder: Normal. Vasculature: 3.3 cm maximum caliber infrarenal abdominal aorta. Lymph Nodes: No enlarged lymph nodes. Bowel: Diverticulosis without acuity. Normal caliber loops of large andsmall bowel. Peritoneum and mesentery: No ascites, free air, or loculated fluidcollection. No mesenteric inflammation. Abdominal wall: Stable small fat filled inguinal region hernias. Reproductive organs: Normal prostate contour Osseous structures: No suspicious lesions IMPRESSION Enlarging and new right upper lobe airspace opacities with progressionof interstitial thickening and increased burden of right upper lobeirregular pleural thickening in the setting of a stable right upper lobe mass withsoft tissue contiguous to the mediastinum and right hilum. Cannot distinguishpost radiation changes from progression of disease. PET scan may be helpfulfor distinguishing these. 3.3 cm dilation infrarenal abdominal aorta. Thank you for letting us participate in the care of this patient. Forquestions regarding this report, please contact the number below. Electronically signed by: Pushpa Arceo [facility] [place] ([phone]),at 01/23/2019 3:50 PM Heber Phillips MD IMG CT ORDERABLES documented in this encounter Visit Diagnoses Diagnosis Small cell lung cancer, right upper lobe documented in this encounter Administered Medications Inactive Administered Medications - up to 3 most recent administrations Medication Order MAR Action Action Date Dose Rate Site iohexol (OMNIPAQUE) 350 mg/mL solution 0-200 mL 0-200 mL, Intravenous, ONCE PRN, 1 dose, Starting on Wed01/23/19 at 1422, Until Wed01/23/19 at 1422, Per Protocol, Warning Vesicant/Irritant Medication , Radiology Contrast, Routine Given 01/23/2019 2:22 PM EDT 91 mLs iohexol (OMNIPAQUE) 350 mg/mL solution 0-50 mL 0-50 mL, Oral, ONCE PRN, 1 dose, Starting on Wed01/23/19 at 1422, Until Wed01/23/19 at 1422, Per Protocol, Warning Vesicant/Irritant Medication , Radiology Contrast, Routine Given 01/23/2019 2:22 PM EDT 50 mLs documented in this encounter Care Teams Healthcare Recruiter Relationship Specialty Start Date End Date Nataliya Messina MD [address] [place], [place] [address]Y [address] [address] PCP - General 10/02/11 01/11/22 documented as of this encounter
--- OUTSIDE RECORDS SUMMARY | 2024-01-05 02:44 | XMS_ITS | Encounter Summary ---
Author Organization [place] [address] Care Team Providers Care Lighting Specialist Name Role Phone Nataliya Messina MD Primary Care Provider [phone] Reason for Referral * Rehabilitation (Routine) - Specialty Diagnoses / Procedures Referred By Keven t Referred To Contact Diagnoses COPD, very severe Mariella Sarmiento MD [facility] [place] [address] Referral ID Status Reason Start Date Expiration Date V isits Requested Visits Authorized [id number] Evaluate and Treat 07/10/2019 01/06/2020 36 36 * Speech Therapy (Routine) - Closed Specialty Diagnoses / Procedures Referred By Keven t Referred To Contact Speech Pathology / Speech Therapy Diagnoses Dysphagia, oropharyngeal phase Mariella Sarmiento MD [facility] [place] [address] [facility] [place] [address] Referral ID Status Reason Start Date Expiration Date V isits Requested Visits Authorized [id number] Closed Evaluate and Treat 07/10/2019 07/09/2020 1 1 * Rehabilitation (JULIEN) - Specialty Diagnoses / Procedures Referred By Contac t Referred To Contact Cardiology Diagnoses COPD, very severe Egressy, Katarine V, [place] [facility] [place] [address] [facility] [place] [address] Referral ID Status Reason Start Date Expiration Date V isits Requested Visits Authorized [id number] Evaluate and Treat 07/10/2019 07/09/2020 36 36 Reason for Visit * Reason Comments Referral * Consultation (Routine) - Closed Specialty Diagnoses / Procedures Referred By Keven t Referred To Contact Pulmonology Diagnoses Small cell lung cancer, right upper lobe SOB (shortness of breath) Chronic cough Post-radiation pneumonitis Heber Phillips MD [facility] HEMATOLOGY/[place] [address] [facility] Pulmonology [address] [place] [id number] Referral ID Status Reason Start Date Expiration Date V isits Requested Visits Authorized [id number] Closed Consult, Test & Treat 06/06/2019 06/05/2020 1 1 Encounter Details Date Type Department Care Team (Late st Contact Info) Description 07/10/2019 2:30 PM EST Office Visit Pulmonology at [place] [phone] Mariella Sarmiento MD [facility] [place] [address] COPD, very severe (Primary Dx); Dysphagia, oropharyngeal phase; Aspiration pneumonia of right upper lobe due to gastric secretions; Small cell lung cancer Social History Tobacco [...] Sign Reading Time Taken Comments Blood Pressure 145/71 07/10/2019 1:46 PM EST Pulse 82 07/10/2019 1:46 PM EST Temperature - - Respiratory Rate 16 07/10/2019 1:46 PM EST Oxygen Saturation 98% 07/10/2019 1:46 PM EST Inhaled Oxygen Concentration - - Weight 83.2 kg (183 lb 6.8 oz) 07/10/2019 1:46 P M EST Height 166.4 cm (5' 5.51) 07/10/2019 1:46 PM ES T Body Mass Index 30.05 07/10/2019 1:46 PM EST documented in this encounter Progress Notes * Mariella Sarmiento MD - 07/10/2019 2:30 PM EST Images from the original note were not included. [facility] Section of Pulmonary and Critical Care Medicine Outpatient Consultation Date of Encounter: 07/10/2019 Referring Provider: Nataliya Messina MD [address] [place], [place] [address] [address] Reason for Evaluation: Nataliya Messina MD referred . Hieu Tillman to me to evaluate and manage hx of small cell lung CA and SOB. I independently interviewed and examined the patient in the officeand have reviewed available records. History of Present Illness: Mr Tillman is a complex 63 yo male with known history of neuroendocrine, limited stage cancer treated by radiation and chemotherapy, completed in 2018. Since that time, has been under surveillance with oncology and has developed progressive worsening of underlying shortness of breath as well as cough. P atient with known, severe emphysema which actually precluded him from resection of his underlying small cell cancer in the first place. In terms of his imaging, his CT scans as well as PET scan have been repeated for surveillance. 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 Patient reports that he has been under surveillance of a screening specialist, Dr. Bautista that has since retired. He has been maintained on Breo as well as Spiriva inhaler with good effect initially, howeverhas noticed lessening effect in the last year. He has not required oxygen previously and has never had nebulizer therapy at home. Patient also has never undergone pulmonary rehabilitation. In terms of his constitutional symptoms, his weight has been relatively stable. He has been struggling more and more with dysphasia and having to cough and vomit after trying to eat peas, corn kernels, knots orany sort of singular solid. He has had previous evaluation by speech, at [facility], where he was told that he has some mild dysphasia without aspiration. However no specific dietary recommendations were made at this time and patient has simply made auto adjustments after noticing that he is aspirating and choking on small bits of food Patient also reports a one-time history of hemoptysis, specifically after radiation therapy has been completed. This was self-limiting and has resolved without intervention. Patient is on Plavix as well as aspirin for known history of recurrent coronary artery disease with 2 separate incidences of acute MN, the last one being in 2016 Social history: Patient is a previous heavy smoker of at least 90 pack years. He quit in 2013. In addition, patient carries history of previous alcohol dependence, however quit greater than 25 years ago. He is and lives with his . He has 5 children who live nearby Family history: No family history of lung cancer. Personal history of neuroendocrine, limited stagetumor Past Medical and Surgical History: Past Medical History: Diagnosis Date ??? Allergic [...] radiating to right leg ??? Myocardial infarction [place] about 6 years ago @ [facility]-has stents ??? PVD [...] ANGIOPLASTY WITH STENT PLACEMENT ? ? PRO [facility] EBUS GUIDED SAMPL 3/> NODE STATION/STRUX N/A 01/05/2018 BRONCH, W ENDOBRONCHIAL ULTRASOUND (EBUS) GUIDED SAMPLING, 3+ NODES (WRVU 5.21) performed by Kingsley Ortiz MD at [facility] MAIN OR ??? PRO THROMBOENDARTECTMY NECK, NECK INCIS Right 10/20/2016 @ENDARTERECTOMY, CAROTID, VERTEBRAL,SUBCLAVIAN W\WO PATCH GRAFT (WRVU 21.16) performed by Omero Wills MD at [facility] MAIN OR Family History: Family History Problem (# of Occurrences) Relation (Name,Age of Onset) Cerebrovascular Accident (1) Father Emphysema (1) Mother Hyperlipidemia (1) Father Hypertension (1) Father Negative family history of: Macular Degeneration, Glaucoma, Diabetes, Cancer Social and Occupational History: Social History Socioeconomic History ??? Marital status: Spouse name: None ??? Number of children: 5 ??? Years of education: None ??? Highest education level: None Occupational History ??? 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 Financial resource strain: None ??? Food insecurity Worry: None Inability: None ??? Transportation needs Medical: None Non-medical: None Tobacco Use ??? Smoking status: Former Smoker Packs/day: 2.00 Years: 47.00 Pack years: 94.00 Types: Cigarettes Last attempt to quit: 09/11/2013 Years since quittin.8 ??? Smokeless tobacco: Never Used Substance and Sexual Activity ??? 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 Drug use: No ??? Sexual activity: Not Currently Comment: deferred Lifestyle ??? Physical activity Days per week: None Minutes per session: None ??? Stress: None Relationships ??? Social connections Talks on phone: None Gets together: None Attends restorationism service: None Active member of club or organization: None Attends meetings of clubs or organizations: None Relationship status: None ??? Intimate partner violence Fear of current or ex partner: None Emotionally abused: None Physically abused: None Forced sexual activity: None Other Topics Concern ??? None Social History Narrative Lives with his in [place], [place]. Retired from [employer] where he did repairs for 40 years. Has 5 children and many grandchildren. Current Medications at Start of Encounter: Outpatient Medications Prior to Visit Medication Sig Dispense Refill ??? pantoprazole (PROTONIX) [...] mcg/Actuation inhaler 2 Puff(s), Inh, Twice daily ??? LORazepam (ATIVAN) 1 mg Tablet Take one tab one hour prior to MRI (Patient not taking: Reportedon 06/06/2019) 1 tablet 0 No facility-administered medications prior to visit. Adverse Drug Reactions: Allergies Allergen Reactions ??? Contrast [Iodine And Iodide Containing Products] Anaphylaxis and Hives He has tolerated IV dye since with premedication. History of anaphylaxis as well. Review of Systems: An 11-point ROS was negative except per the HPI. Physical Examination: BP 145/71 Pulse 82 Resp 16 Ht 166.4 cm (5' 5.51) Wt 83.2 kg (183 lb 6.8 oz) SpO2 98% BMI 30.05 kg/m?? Alert and oriented x3, no apparent distress, no respiratory distress noted Pupils equal reactive to light, no jaundice or pallor Mouth with good dentition, no ulcerations or secretions Neck no palpable masses Chest breath sounds are severely decreased Heart S1 and S2 are regular, no rubs or gallops Abdomen soft, mildly obese, nontender nondistended Extremities warm, well-perfused no edema noted Skin no rashes Neurological: Grossly nonfocal Labs: I personally reviewed relevant laboratory results which were significant for: previously noted hyponatremia. Normal kidney and liver function Metabolic Parameters Lab Results Component Value Date NA 130 (L) 01/23/2019 K 4.3 01/23/2019 CL 91 (L) 01/23/2019 CO2 23 01/23/2019 ANIONGAP 16 (H) 01/23/2019 BUN 18 01/23/2019 CREATININE 0.99 01/23/2019 GLUCOSE 182 01/23/2019 CALCIUM 9.8 01/23/2019 Hematologic Parameters Lab Results Component Value Date WBC 12.2 (H) 01/23/2019 NEUTOPHILPCT 93.2 01/23/2019 IMMGRANPCT 1.10 01/23/2019 BANDPCTMDIFF 2 09/12/2013 BANDABSMDIFF 0.3 09/12/2013 ANC 2.68 04/19/2018 LYMPHOPCT 2.7 01/23/2019 MONOPCT 2.9 01/23/2019 BASOPCT 0.1 01/23/2019 EOSPCT 0.0 01/23/2019 HGB 13.8 01/23/2019 HCT 40.1 (L) 01/23/2019 RBC 4.81 01/23/2019 MCV 83.4 01/23/2019 MCHC 34.4 01/23/2019 RDWSD 44.7 01/23/2019 PLATELET 400 (H) 01/23/2019 LFT and Associated Parameters Lab Results Component Value Date AST 20 01/23/2019 ALT 25 01/23/2019 ALKPHOS 104 01/23/2019 BILITOT 0.3 01/23/2019 BILIDIR <0.1 10/19/2016 ALBUMIN 4.6 01/23/2019 Coagulation Parameters Lab Results Component Value Date PT 12.9 10/19/2016 INR 0.9 10/19/2016 PTT 29 10/19/2016 Diabetes Laboratory Tests Lab Results Component Value Date HA1C 5.8 (H) 10/19/2016 Autoantibodies No results for input(s): JIGNA, ANATITER, TROY, DNAABDS, DNAABDSTITER, SMANTIBODY, HISTONEAB, CANCA, PR3AB, PANCA, MYELOP, SSAROAB, SSBLAAB, CYCCITPEP, RF, SCL70, CENTSCR, J7VWSUL, JO1, MYOSITISAB in the last 7068 hours. Acute Phase Reactants No results for input(s): CRP, SEDRATE, IRON, IRONSAT, FERRITIN, FIBRINOGEN, INTERLEUKIN6, UUGVYPJ3ADIO, CALPROTECTIN in the last 7068 hours. Imaging: I personally reviewed imaging from CT and PET/CT from [address] Scan of the Chest for Pulmonary Embolism (PE) No results found for this or any previous visit. Contrast-enhanced CT Scan of the Chest No results found for this or any previous visit. High-Resolution (non-contrast) CT Scan of the Chest No results found for this or any previous visit. PA and lateral (2-view) CXR No results found for this or any previous visit. AP CXR (1-view) Results for orders placed during the hospital encounter of 01/05/18 XR Chest PA or AP 1 view Narrative EXAMINATION: XR CHEST PA OR AP 1 VIEW CLINICAL HISTORY: s/p EBUS right hilar mass biopsy please rule out pneumothorax TECHNIQUE: Portable AP semiupright chest COMPARISON: 12/10/2017 FINDINGS: There is no pneumothorax or other interval change allowing for the portable AP positioning. Again noted is the large RIGHT upper lobe mass. Impression No pneumothorax or other complication. Echocardiogram: Pulmonary Function Tests: Date FVC FEV1 Ratio TLC RV RV/TLC ERV DLCO 6MWT 07/10 74 31 33 35 Was able to walk 150m without desaturation I personally reviewed flow-volume loops and other tests. Impression and Plan of Care: This is a complex 63 yo male with evidence of very severe COPD, Gold stage IV, that presents to us with progressively worsening underlying shortness of breath and cough as well as history of limited stage IIIA neuroendocrine tumor treated by radiation and chemotherapy, completed in 2018. 1. Lung CA-limited stage neuroendocrine tumor, stage IIIa, treated with carboplatin and etoposide as well as concurrent radiation. This was completed in 2018 and since that time patient with progressive and worsening underlying shortness of breath. It is undoubtedly, the patient developed radiation-induced pneumonitis, and continues to suffer the consequences there off and therefore would definitively benefit from prednisone administration. I am prescribing a prednisone taper with concurrent Bactrim prophylaxis for P NATHANAEL given the appearance of the CAT scan as well as onset of syndrome of radiation-induced pneumonitis with symptoms of progressive worsening of cough and shortness of breath. 2. Aspiration/aspiration pneumonia--I suspect that the patient probably has also chronic underlyingaspiration induced pneumonitis. Given the appearance of his right upper lobe I suspect that most ofhis aspiration actually is going into his right upper lobe as he has no specific changes in any of his lower lobes. I would like for him to see in be evaluated by speech and swallow and we will make appropriate recommendations in terms of his diet. He already has auto modified his own diet and has stopped eating any peas, corn, nuts, popcorn and has cut down on consumption of his steak and tries to consume things that are more easily digestible as well as consumable. I suspect that he most likely will need to modify his diet to a nectar thick to fully prevent aspiration as it is occurring currently. Currently, I also do not see any evidence of foreign body on his latest imaging therefore I do not think bronchoscopy is needed at this time. Certainly, if after completion of prednisone he develops any new onset symptoms or potentially his CT chest worsens or does not improve, then I suspect bronchoscopy would be warranted to rule out presence of a foreign body as a cause of his ongoing problems 3. Very severe COPD--interestingly, patient does not have evidence of centrilobular emphysema on CTscan. He clearly appears to have acinar emphysema that is extremely severe given his current PFTs. I did myself walking around the clinic as well as the hallway and patient was able to reach 150 m 6-minute walk test without desaturation below 89%. Therefore currently he does not specifically qualify for oxygen supplementation, however given progressive onset of symptoms as well as history of previous tobacco exposure, I suspect that he most likely will require oxygen within the year. For now, Iwould like for him to be referred for pulmonary rehabilitation at his nearest hospital in [facility]. This referral is placed. Lastly, we discussed his current inhaler regimen. He is currently on Breo as well as Spiriva. I suspect that most likely this is actually not an applicable inhaler technique to him as he is not able to generate enough pressure to inhale the dry powder into his lung. I would like for him to return with mouth pressure measurements to determine that even further and potentially need to switch over to a nebulized treatment at that time. For now, I suspect that he would benefit from prednisone taper greatly and therefore no specific medication changes are made currently Prednisone taper for radiation induced pneumonitis 60 mg po daily x14 days 40 mg po daily x 14 days 20 mg po daily x14 days 10 mg po daily x 14 days Bactrim 1 tbs DS three times weekly until prednisone therapy is completed Will need nebulizer and nebulized meds due to probable poor FEVs Speech and swallow referral due to severe dysphagia Pulmonary rehab at [facility] Mariella Sarmiento MD, MPH N [facility] PULMONOLOGY AT [facility] [address] Dept: [phone] Loc: [phone] documented in this encounter Plan of Treatment Upcoming Encounters Date Type Department Care Team (Late st Contact Info) Description 01/10/2024 7:45 AM EDT Appointment [place] [address] 01/21/2024 10:[address] [place] [address] Heber Phillips MD [facility] HEMATOLOGY/[place] [address] 03/28/2024 10:00 AM EDT Office Visit Hematology/Oncology at [address] [address] Heber Phillips MD [facility] HEMATOLOGY/[place] [address] Isabella Baker APRN [facility] [place] [address] Scheduled Referrals Name Type Priority Associated Diagnoses Orde r Schedule Referral to Pulmonary Rehab Outpatient Referral Routine COPD, very severe Ordered: 07/10/2019 Referral to Speech Therapy Outpatient Referral Routine Dysphagia, oropharyngeal phase Ordered: 07/10/2019 Referral to Pulmonary Rehab Outpatient Referral Routine COPD, very severe Ordered: 07/10/2019 documented as of this encounter Visit Diagnoses Diagnosis COPD, very severe- Primary Chronic airway obstruction, not elsewhere classified Dysphagia, oropharyngeal phase Aspiration pneumonia of right upper lobe due to gastric secretions Small cell lung cancer Malignant neoplasm of bronchus and lung, unspecified site documented in this encounter Care Teams Lighting Specialist Relationship Specialty Start Date End Date Nataliya Messina MD [address] [place] [address] PCP - General 10/02/11 01/11/22 documented as of this encounter
--- OUTSIDE RECORDS SUMMARY | 2024-01-05 02:44 | XMS_ITS | Encounter Summary ---
Author Organization [facility] Address [facility] [address] Care Team Providers Care Barge Worker Name Role Phone Nataliya Messina MD Primary Care Provider [phone] Reason for Referral * Speech Therapy (Routine) - Closed Specialty Diagnoses / Procedures Referred By Contac t Referred To Contact Speech Pathology / Speech Therapy Diagnoses Aspiration pneumonia due to gastric secretions, unspecified laterality, unspecified part of lung Mariella Sarmiento MD [facility] [place] [address] [facility] [place] [address] Referral ID Status Reason Start Date Expiration Date V isits Requested Visits Authorized [id number] Closed Evaluate and Treat 07/17/2019 07/16/2020 1 1 Encounter Details Date Type Department Care Team (Late st Contact Info) Description 07/17/2019 Orders [place] [address] Mariella Sarmiento MD [facility] [place] [address] Aspiration pneumonia due to gastric secretions, unspecified laterality, unspecified part of lung (Primary Dx) Social History Tobacco Use Types Packs/Day Years [...] AM EDT Appointment Hematology [place] [address] 01/21/2024 10:[address] [place] [address] Heber Phillips MD [facility] DR HEMATOLOGY/[place] [address] 03/28/2024 10:00 AM EDT Office Visit Hematology/Oncology at [address] [address] Heber Phillips MD [facility] DR HEMATOLOGY/[place] [address] Isabella Baker APRN [facility] [place] [address] Scheduled Referrals Name Type Priority Associated Diagnoses Orde r Schedule Referral to Speech Therapy Outpatient Referral Routine Aspiration pneumonia due to gastric secretions, unspecified laterality, unspecified part of lung Ordered: 07/17/2019 documented as of this encounter Visit Diagnoses Diagnosis Aspiration pneumonia due to gastric secretions, unspecified laterality, unspecified part of lung- Primary documented in this encounter Care Teams Barge Worker Relationship Specialty Start Date End Date Nataliya Messina MD [address] [place] [address] [address] [place] [address] PCP - General 10/02/11 01/11/22 documented as of this encounter
--- OUTSIDE RECORDS SUMMARY | 2024-01-05 02:44 | XMS_ITS | Encounter Summary ---
Author Organization [facility] Address [facility] [place] [address] Care Team Providers Care Coding Educator Name Role Phone Nataliya Messina MD Primary Care Provider [phone] Reason for Visit * Reason Onset Date Comments Follow-up 01/09/2019 renuka prot ocol Encounter Details Date Type Department Care Team (Late st Contact Info) Description 01/09/2019 Telephone Hematology [place] [address] Heber Phillips MD [facility] DR HEMATOLOGY/ONCOLOGY [address] Follow-up (renuka protocol) Social History Tobacco Use Types Packs/Day Years [...] Telephone Encounter - Aleida Knight RN - 01/09/2019 4:52 PM EDT Spoke with patient and he took prednisone per Renuka protocol in past with excellent effect. No issues with reaction to contrast dye. Pt agrees to take as instructed on directions of script. documented in this encounter Plan of Treatment Upcoming Encounters Date Type Department Care Team (Late st Contact Info) Description 01/10/2024 7:45 AM EDT Appointment Hematology [place] [address] 01/21/2024 10:[address] [place] [address] Heber Phillips MD [facility] DR HEMATOLOGY/ONCOLOGY [address] 03/28/2024 10:00 AM EDT Office Visit Hematology/Oncology at [address] [phone] Heber Phillips MD [facility] DR HEMATOLOGY/ONCOLOGY [address] Isabella Baker APRN [facility] [address] MEDICAL ONCOLOGY [address] documented as of this encounter Visit Diagnoses Diagnosis Small cell lung cancer, right upper lobe documented in this encounter Care Teams Coding Educator Relationship Specialty Start Date End Date Nataliya Messina MD [address] [place] [address] PCP - General 10/02/11 01/11/22 documented as of this encounter
--- OUTSIDE RECORDS SUMMARY | 2024-01-05 02:44 | XMS_ITS | Encounter Summary ---
Author Organization [facility] [place] [address] Care Team Providers Care Clay Worker Name Role Phone Nataliya Messina MD Primary Care Provider [phone] Reason for Visit * Reason Onset Date Comments Other 02/23/2019 Encounter Details Date Type Department Care Team (Late st Contact Info) Description 02/23/2019 Telephone Hematology/Oncology at [address] [address] Aleida Knight RN Other Social History Tobacco Use Types Packs/Day Years [...] Telephone Encounter - Aleida Knight RN - 02/23/2019 3:36 PM EDT Pt stated he blew his nose very hard on Wednesday afternoon a couple hours later he spit up about a table spoon of blood and then 930 pm he vomited and there was another tablespoon of blood in it. He went for pet scan yesterday but unfortunately machine was down. He will go back Wednesdayfeb 27 for pet scan and see Dr. Phillips on Wednesdayfeb 28. He has no blood in urine or stools. He has had no other bleeding since Wednesday evening. I told him I would let Dr. Phillips know in the mean time if he should have any bleeding from nose that does not stop or vomits up a more than a tablespoon of blood he is to go to closest ER. He was able to repeat plan back to me and agrees with it. documented in this encounter Plan of Treatment Upcoming Encounters Date Type Department Care Team (Late st Contact Info) Description 01/10/2024 7:45 AM EDT Appointment Hematology [place] [address] 01/21/2024 10:[address] [place] [address] Heber Phillips MD [facility] DR HEMATOLOGY/[place] [address] 03/28/2024 10:00 AM EDT Office Visit Hematology/Oncology at [address] [address] Heber Phillips MD [facility] DR HEMATOLOGY/[place] [address] Isabella Baker APRN [facility] [place] [address] documented as of this encounter Visit Diagnoses Not on filedocumented in this encounter Care Teams Clay Worker Relationship Specialty Start Date End Date Nataliya Messina MD [address] [place] [address] [address] [place], [place] [address] PCP - General 10/02/11 01/11/22 documented as of this encounter
--- OUTSIDE RECORDS SUMMARY | 2024-01-05 02:44 | XMS_ITS | Encounter Summary ---
Author Organization [facility] Address [facility] [place] [address] Care Team Providers Care Director Economic Name Role Phone Nataliya Messina MD Primary Care Provider [phone] Reason for Visit * Reason Comments Follow-up 6 month f/u CAD Encounter Details Date Type Department Care Team (Latest Contact Info) Description 05/19/2019 10:20 AM EST Office Visit Cardiology at [address] [phone] Ramandeep Choudhary MD [place] [address] Coronary artery disease involving [place] heart, angina presence unspecified, unspecified vessel or lesion type; Essential hypertension; Hyperlipidemia, unspecified hyperlipidemia type Social History Tobacco Use Types Packs/Day [...] Sign Reading Time Taken Comments Blood Pressure 139/69 05/19/2019 10:09 AM EST Pulse 88 05/19/2019 10:09 AM EST Temperature - - Respiratory Rate - - Oxygen Saturation - - Inhaled Oxygen Concentration - - Weight 81.6 kg (180 lb) 05/19/2019 10:01 AM EST Height 167.6 cm (5' 6) 05/19/2019 10:01 AM EST Body Mass Index 29.05 05/19/2019 10:01 AM EST documented in this encounter Progress Notes * Ramandeep Choudhary MD - 05/19/2019 10:20 AM EST CARDIOLOGY OUTPATIENT FOLLOW-UP NOTE [...] Outpatient Medications Medication Sig Dispense Refill ??? LORazepam (ATIVAN) 1 mg Tablet Take one tab one hour prior to MRI 1 tablet 0 ??? pantoprazole (PROTONIX) 40 [...] Hieu Tillman is a 63 y.o. male. HPI This 63-year-old man presents for six-month follow-up. He reports that he has been stable sincehis last visit. He has learned over time to pace himself . His limiting factor is shortness of breath. He rarely gets chest discomfort or cramps in the chest that at times will take a nitroglycerin. The last time hedid so was about a month ago. 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 He is hosting a [employer] operation for approximately 40 people tomorrow night Review of System Review of Systems Cardiovascular: Positive for chest pain and dyspnea on exertion. Respiratory: Positive for cough, shortness of breath, sputum production and wheezing. All other systems reviewed and are negative. [...] resource strain: Not on file ??? Food insecurity: Worry: Not on file Inability: Not on file ??? Transportation needs: Medical: Not on file Non-medical: Not on file Tobacco Use ??? Smoking status: Former Smoker Packs/day: 2.00 Years: 47.00 Pack years: 94.00 Types: Cigarettes Last attempt to quit: 09/11/2013 Years since quittin.6 ??? Smokeless tobacco: Never Used Substance and Sexual Activity ??? 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 Drug use: No ??? Sexual activity: Not Currently Comment: deferred Lifestyle ??? Physical activity: Days per week: Not on file Minutes per session: Not on file ??? Stress: Not on file Relationships ??? Social connections: Talks on phone: Not on file Gets together: Not on file Attends alevism service: Not on file Active member of club or organization: Not on file Attends meetings of clubs or organizations: Not on file Relationship status: Not on file ??? Intimate partner violence: Fear of current or ex partner: Not on file Emotionally abused: Not on file Physically abused: Not on file Forced sexual activity: Not on file Other Topics Concern ??? Not on file Social History Narrative Lives with his in [place], [place]. 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 Has 5 children and many grandchildren. Objective: Physical Exam Constitutional: He is oriented to person, place, and time. He appears well- developed and well-nourished. HENT: Head: Normocephalic and atraumatic. Eyes: Pupils are equal, round, and reactive to light. EOM are normal. Neck: Normal range of motion. Neck supple. Right carotid bruit Cardiovascular: Normal rate, regular rhythm and normal heart sounds. No murmur heard. Pulmonary/Chest: Effort normal. Decreased breath sounds no wheezes Abdominal: Soft. Musculoskeletal: Normal range of motion. He exhibits no edema. Neurological: He is alert and oriented to person, place, and time. Skin: Skin is warm and dry. Psychiatric: He has a normal mood and affect. Nursing note and vitals reviewed. Most Recent Vitals: 05/19/19 1009 BP: 139/69 Pulse: 88 Assessment and Plan: #1. Coronary artery disease. Patient's angina seems stable. He has reasonable exercise tolerance and is also limited in part due to COPD #2. Hyperension. Good control of blood pressure on current regimen. 3. Hyperlipidemia. Statin to be continued We will plan routine follow-up in 6 months, sooner as needed Thank you for the opportunity to participate in this patient's cardiovascular care. All questions were answered and I look forward to the next visit. documented in this encounter Plan of Treatment Upcoming Encounters Date Type Department Care Team (Late st Contact Info) Description 01/10/2024 7:45 AM EDT Appointment Hematology [place] [address] 01/21/2024 10:[address] [place] [address] Heber Phillips MD [facility] DR HEMATOLOGY/[place] [address] 03/28/2024 10:00 AM EDT Office Visit Hematology/Oncology at [address] [address] Heber Phillips MD [facility] DR HEMATOLOGY/[place] [address] Isabella Baker APRN [facility] [place] [address] documented as of this encounter Procedures Procedure Name Priority Date/Time Associated Diagnosis Comments EKG 12-LEAD Routine 05/19/2019 10:07 AM EST documented in this encounter Results * EKG 12 Lead (05/19/2019 10:07 AM EST) Ventricular rate 85 BPM MUSE SYSTEM Atrial Rate 85 BPM MUSE SYSTEM P-R Interval 156 ms MUSE SYSTEM QRS Duration 74 ms MUSE SYSTEM Q-T Interval 372 ms MUSE SYSTEM QTC Calculated (Bezet) 442 ms MUSE SYSTEM Calculated P [place] 73 degrees MUSE SYSTEM Calculated R [place] 69 degrees MUSE SYSTEM Calculated T [place] 78 degrees MUSE SYSTEM INTERPRETATION Normal sinus rhythm Normal ECG When compared with ECG of 28-DEC-2017 16:53, No significant change was found Confirmed by MD Dia Daniel ([id number]) on 05/19/2019 12:47:09 PM MUSE SYSTEM 05/19/2019 10:0 7 AM EST 05/19/2019 12:47 PM EST Unknown ECG ORDERABLES MUSE SYSTEM documented in this encounter Visit Diagnoses Diagnosis Coronary artery disease involving [place] heart, angina presence unspecified, unspecified vessel or lesion type Essential hypertension Unspecified essential hypertension Hyperlipidemia, unspecified hyperlipidemia type documented in this encounter Care Teams Director Economic Relationship Specialty Start Date End Date Nataliya Messina MD [address] [place] [address] PCP - General 10/02/11 01/11/22 documented as of this encounter
--- OUTSIDE RECORDS SUMMARY | 2024-01-05 02:44 | XMS_ITS | Encounter Summary ---
Author Organization [facility] [place] [address] Care Team Providers Care Central Supply Tech Name Role Phone Nataliya Messina MD Primary Care Provider [phone] Encounter Details Date Type Department Care Team (Late Contact Info) Description 06/20/2019 [place] [phone] Jessica Butterfield Social History Tobacco Use Types [...] AM EDT Appointment Hematology [place] [phone] 01/21/2024 10:[address] [place] [phone] Heber Phillips MD [facility] HEMATOLOGY/[place] [address] 03/28/2024 10:00 AM EDT Office Visit Hematology/Oncology at [address] [address] Heber Phillips MD [facility] DR HEMATOLOGY/[place] [address] Isabella Baker APRN [facility] [place] [address] documented as of this encounter Visit Diagnoses Not on filedocumented in this encounter Care Teams Central Supply Tech Relationship Specialty Start Date End Date Nataliya Messina MD [address] [place], [place] [address] PCP - General 10/02/11 01/11/22 documented as of this encounter
--- OUTSIDE RECORDS SUMMARY | 2024-01-05 02:44 | XMS_ITS | Encounter Summary ---
[place] [address] Care Team Providers Care Electrical Transmission Engineer Name Role Phone Nataliya Messina MD Primary Care Provider [phone] Encounter Details Date Type Department Care Team (Latest Contact Info) Description 01/23/2019 11:25 AM EDT Laboratory Appointment Lab [address] [place] [address] Small cell lung cancer, right upper lobe [...] EDT Appointment Hematology [place] [address] 01/21/2024 10:[address] [place] [address] Heber Phillips MD [facility] HEMATOLOGY/[place] [address] 03/28/2024 10:00 AM EDT Office Visit Hematology/Oncology at [address] [phone] Heber Phillips MD [facility] HEMATOLOGY/[place] [address] Isabella Baker APRN [facility] [place] [address] documented as of this encounter Procedures Procedure Name Priority Date/Time Associated Diagnosis Comments HEMOGRAM Routine 01/23/2019 11:34 AM EDT Small cell lung cancer, right upper lobe DIFFERENTIAL, AUTOMATED Routine 01/23/2019 11:34 AM EDT Small cell lung cancer, right upper lobe CBC (WITH DIFF) Routine 01/23/2019 11:34 AM EDT Small cell lung cancer, right upper lobe COMPREHENSIVE METABOLIC PANEL (NON-FASTING) Routine 01/23/2019 11:34 AM EDT Small cell lung cancer, right upper lobe documented in this encounter Results * (ABNORMAL) Differential, Automated (01/23/2019 11:34 AM EDT) Neutrophils % 93.2 % [facility] Neutr Abs (ANC) 11.40(H) 1.70 - 6.10 x10(3)/mc L [facility] Lymphocytes % 2.7 % [facility] Lymphocytes Abs 0.3(L) 0.9 - 3.2 x10(3)/mc L [facility] Monocytes % 2.9 % [facility] Monocyte Abs 0.4 0.3 - 0.9 x10(3)/mc L [facility] Eosinophils % 0.0 % [facility] Eosinophils Abs 0.0 0.0 - 0.4 x10(3)/mc L [facility] Basophils % 0.1 % [facility] Basophils Abs 0.0 0.0 - 0.1 x10(3)/mc L [facility] Immature Gran % 1.10 % [facility] Comment: Immature granulocytes(IG's)percentage and absolute count will include metamyelocytes, myelocytes, and promyelocytes. Blood smears from CBCs yielding IG's will be scanned manually for concordance. If this scan disagrees with the automated IG or if promyelocytes are noted, a manual differential will be performed. Suri Gran Abs 0.13(H) 0.00 - 0.04 x10(3)/mc L [facility] Blood specimen (specimen) 01/23/2019 11:34 AM EDT 01/23/2019 11:42 AM EDT Narrative Resulting Agency Comment Spec In Lab Heber Phillips MD HEMATOLOGY ORDERABLE S [facility] [place] [address] * (ABNORMAL) Hemogram (01/23/2019 11:34 AM EDT) WBC 12.2(H) 4.0 - 9.5 x10(3)/[facility] RBC 4.81 4.58 - 5.54 x10(6)/[facility] Hemoglobin 13.8 13.7 - 16.5 gm/dL [facility] Hematocrit 40.1(L) 40.5 - 48.5 % [facility] MCV 83.4 82.9 - 93.1 fL [facility] MCH 28.7 27.5 - 32.1 pg [facility] MCHC 34.4 32.0 - 35.7 gm/dL [facility] Platelets 400(H) 145 - 357 x10(3)/[facility] RDWSD 44.7 36.0 - 45.0 fL [facility] RDWCV 14.6(H) 11.4 - 13.8 % [facility] MPV 8.9 7.6 - 12.9 fL [facility] nRBC % Auto 0.0 % [facility] nRBC Abs Auto 0.000 0.000 - 0.000 x10(3)/mcL [facility] Blood specimen (specimen) 01/23/2019 11:34 AM EDT 01/23/2019 11:42 AM EDT Narrative Resulting Agency Comment Spec In Lab Heber Phillips MD HEMATOLOGY ORDERABLE S [facility] [place] [address] * (ABNORMAL) Comprehensive metabolic panel (non-fasting) (01/23/2019 11:34 AM EDT) Glucose Lvl 182 65 - 199 mg/dL [facility] Comment:Diabetes: >=200 mg/d L plus symptoms BUN 18 10 - 20 mg/dL [facility] Creatinine 0.99 0.80 - 1.50 mg/dL [facility] Sodium 130(L) 135 - 145 mmol/L [facility] Potassium 4.3 3.5 - 5.0 mmol/L [facility] Comment: Please note: ??Patients with WBC >100,000 may have falsely elevated Potassium levels. ??For accurate Potassium quantification in these patients send serum separator tube (gold top) for subsequent determinations. ??Contact the Clinical Chemistry Laboratory if there are any questions. Chloride 91(L) 98 - 107 mmol/L [facility] CO2 23 22 - 31 mmol/L [facility] Anion Gap 16(H) 5 - 15 mmol/L [facility] Calcium 9.8 8.5 - 10.5 mg/dL [facility] Total Protein 7.5 6.1 - 8.0 gm/dL [facility] Albumin 4.6 3.2 - 5.2 gm/dL [facility] AST 20 0 - 39 unit/L [facility] ALT 25 0 - 55 unit/L [facility] Alk Phos 104 40 - 130 unit/L [facility] Total Bilirubin 0.3 0.2 - 1.3 mg/dL [facility] Estimated GFR 80 >=60 mL/min/1. 73 m?? [facility] Comment: The eGFR was calculated using the CKD-EPI equation. As with all creatinine based estimates of kidney function, eGFR values calculated with the CKD-EPI equation are not accurate in patients with acute kidney failure, extremes of body mass or the acutely ill. http://[employer]/[facility] eGFR 93 >=60 mL/min/1. 73 m?? [facility] Comment: The eGFR was calculated using the CKD-EPI equation. As with all creatinine based estimates of kidney function, eGFR values calculated with the CKD-EPI equation are not accurate in patients with acute kidney failure, extremes of body mass or the acutely ill. http://[employer]/[facility] Blood specimen (specimen) 01/23/2019 11:34 AM EDT 01/23/2019 11:42 AM EDT Narrative Resulting Agency Comment Spec In Lab Heber Phillips MD CHEMISTRY ORDERABLES [facility] [place] [id number] documented in this encounter Visit Diagnoses Diagnosis Small cell lung cancer, right upper lobe documented in this encounter Care Teams Electrical Transmission Engineer Relationship Specialty Start Date End Date Nataliya Messina MD [address] [place] [address] PCP - General 10/02/11 01/11/22 documented as of this encounter
--- OUTSIDE RECORDS SUMMARY | 2024-01-05 02:44 | XMS_ITS | Encounter Summary ---
Author Organization [facility] Address [facility] [place] [address] Care Team Providers Care Cemetery Warden Name Role Phone Nataliya Messina MD Primary Care Provider [phone] Reason for Visit * Reason Onset Date Comments Other 07/26/2019 Stament of joyce prieto came back on the Trelegy Ellipta. Encounter Details Date Type Department Care Team (Late st Contact Info) Description 07/26/2019 [place] [phone] [place], Carm[place], [facility] [place] Other (Stament of chrissy came back on the Trelegy Ellipta.) Social History Tobacco Use Types Packs/Day Years [...] AM EDT Appointment Hematology [place] [phone] 01/21/2024 10:[address] [place] [address] Heber Phillips MD [facility] DR HEMATOLOGY/[place] [address] 03/28/2024 10:00 AM EDT Office Visit Hematology/Oncology at [address] [address] Heber Phillips MD [facility] DR HEMATOLOGY/[place] [address] Isabella Baker APRN [facility] [place] [address] documented as of this encounter Visit Diagnoses Not on filedocumented in this encounter Care Teams Cemetery Warden Relationship Specialty Start Date End Date Nataliya Messina MD [address] [place] [address] PCP - General 10/02/11 01/11/22 documented as of this encounter
--- OUTSIDE RECORDS SUMMARY | 2024-01-05 02:44 | XMS_ITS | Encounter Summary ---
Author Organization [place] [address] Care Team Providers Care Railway Patrol Officer Name Role Phone Nataliya Messina MD Primary Care Provider [phone] Encounter Details Date Type Department Care Team (Latest Contact Info) Description 07/10/2019 12:30 PM EST - 07/10/2019 11:59 PM EST Hospital En[place] [address] Mass of right lung Discharge Disposition: Home Social History Tobacco Use [...] Tablet Take by mouth. 11/02/2016 10/13/2022 predniSONE (Deltasone) 20 mg Tablet Take 3 tablets by mouth daily for 14 days, THEN 2 tablets daily for 14 days, THEN 1 tablet daily for 14 days, THEN 0.5 tablets daily for 14 days. 45 tablet 1 07/10/2019 09/04/2019 sulfamethoxazole-trim ethoprim DS (Bactrim DS) 800-160 mg Tablet Take 1 tablet by mouth three times a week for 60 days. 12 tablet 1 07/10/2019 09/08/2019 budesonide (PULMICORT) 0.5 mg/2 mL Suspension for Nebulization Take 2 mLs by nebulization daily. 60 mL 12 07/10/2019 07/11/2019 fluticasone-umeclidin -vilanter 100-62.5-25 mcg Disk with Device [...] 03/09/2006 05/03/2020 documented as of this encounter Procedure Notes * Enelow, Jem I, MD - 07/10/2019 11:59 PM ESTAssociated Order(s): PULMONARY FUNCTION TEST FVC, FEV1, FEV1/FVC are low. Diffusing capacity low. Resting oxygen saturation on room air was normal. IMPRESSION: Obstructive lung disease. Cannot exclude an additional component of restriction withoutformal lung volumes. documented in this encounter Plan of Treatment Upcoming Encounters Date Type Department Care Team (Late st Contact Info) Description 01/10/2024 7:45 AM EDT Appointment Hematology [place] [address] 01/21/2024 10:[address] [place] [address] Heber Phillips MD [facility] DR HEMATOLOGY/[place] [address] 03/28/2024 10:00 AM EDT Office Visit Hematology/Oncology at [address] [address] Heber Phillips MD [facility] HEMATOLOGY/[place] [address] Isabella Baker APRN [facility] [place] [address] documented as of this encounter Procedures Procedure Name Priority Date/Time Associated Diagnosis Comments COMMON PULMONARY FUNCTION TEST Routine 07/10/2019 11:59 PM EST Mass of right lung documented in this encounter Results * Pulmonary Function Testing (07/10/2019 11:59 PM EST) Narrative Jem Laureano MD - 07/10/2019 11:59 PM EST Jem Laureano MD ? 07/15/2019 11:12 AM FVC, FEV1, FEV1/FVC are low. Diffusing capacity low. ??Resting oxygen saturation on room air was normal. IMPRESSION: Obstructive lung disease. Cannot exclude an additional component of restriction without formal lung volumes. Jem James MD PFT ORDERABLES documented in this encounter Visit Diagnoses Diagnosis Mass of right lung documented in this encounter Care Teams Railway Patrol Officer Relationship Specialty Start Date End Date Nataliya Messina MD [address] [place] [address] [address] PCP - General 10/02/11 01/11/22 documented as of this encounter
--- OUTSIDE RECORDS SUMMARY | 2024-01-05 02:44 | XMS_ITS | Encounter Summary ---
Author Organization [facility] Address [facility] [place] [address] Care Team Providers Care Lime Vat Tender Name Role Phone Nataliya Messina MD Primary Care Provider [phone] Reason for Visit * Reason Onset Date Comments Medication Refill 07/11/2019 need new rx fo r budesonide with ICD code Encounter Details Date Type Department Care Team (Late st Contact Info) Description 07/11/2019 [place] [phone] Mariella Sarmiento MD [facility] [place] [address] COPD, very severe Social History Tobacco Use [...] AM EDT Appointment Hematology [place] [phone] 01/21/2024 10:[address] [place] [phone] Heber Phillips MD [facility] DR HEMATOLOGY/[place] [address] 03/28/2024 10:00 AM EDT Office Visit Hematology/Oncology at [address] [address] Heber Phillips MD [facility] DR HEMATOLOGY/[place] [address] Isabella Baker APRN [facility] [place] [address] documented as of this encounter Visit Diagnoses Diagnosis COPD, very severe Chronic airway obstruction, not elsewhere classified documented in this encounter Care Teams Lime Vat Tender Relationship Specialty Start Date End Date Nataliya Messina MD [address] [place] [address] [address] [place] [address] PCP - General 10/02/11 01/11/22 documented as of this encounter
--- OUTSIDE RECORDS SUMMARY | 2024-01-05 02:44 | XMS_ITS | Encounter Summary ---
[place] [address] Care Team Providers Care Geothermal Sheet Metal Worker Name Role Phone Nataliya Messina MD Primary Care Provider Reason for Referral * Diagnostic Test (Routine) - Closed Specialty Diagnoses / Procedures Referred By Contac t Referred To Contact Radiology Diagnoses Small cell lung cancer, right upper lobe Procedures NM PET CT Skull Base to Mid-thigh Bettie Serrano APRN [address] [place] [address] [place] [address] [place] [address] Referral ID Status Reason Start Date Expiration Date V isits Requested Visits Authorized [id number] Closed Specialty Service Requested 02/07/2019 02/07/2020 1 1 Reason for Visit * Diagnostic Test (Routine) - Closed Specialty Diagnoses / Procedures Referred By Contac t Referred To Contact Radiology Diagnoses Small cell lung cancer, right upper lobe Procedures NM PET CT Skull Base to Mid-thigh Bettie Serrano APRN [address] [place] [address] [place] [address] [place] [address] Referral ID Status Reason Start Date Expiration Date V isits Requested Visits Authorized [id number] Closed Specialty Service Requested 02/07/2019 02/07/2020 1 1 Encounter Details Date Type Department Care Team (Latest Contact Info) Description 02/27/2019 8:20 AM EDT Hospital Encounter [place] [address] Bettie Serrano, [address] [place] [address] Small cell lung cancer, right upper lobe [...] AM EDT Appointment Hematology [place] [address] 01/21/2024 10:[address] [place] [place] [address] Heber Phillips MD [facility] HEMATOLOGY/[place] [address] 03/28/2024 10:00 AM EDT Office Visit Hematology/Oncology at [address] [address] Heber Phillips MD [facility] HEMATOLOGY/[place] [address] Isabella Baker APRN [facility] [place] [address] documented as of this encounter Procedures Procedure Name Priority Date/Time Associated Diagnosis Comments NM PET CT SKULL BASE TO MID-THIGH ([facility]R) Routine 02/27/2019 9:56 AM EDT Small cell lung cancer, right upper lobe POCT GLUCOSE Routine 02/27/2019 8:28 AM EDT documented in this encounter Results [...] please contact the number below. ? Narrative 02/27/2019 11:15 AM EDT EXAMINATION: NM PET CT SKULL BASE TO MID-THIGH ? CLINICAL HISTORY: Response to therapy. TECHNIQUE: Following IV injection of 59-wppgox-3-deoxyglucose (FDG) a standard uptake of approximately 60 [...] to therapy. TECHNIQUE: Following IV injection of 12-cmwdyr-4-deoxyglucose (FDG) astandard uptake of approximately 60 minutes, [...] this report, please contact the number below. Bettie Serrano SUPERVISOR [employer] IMG PET ORDERAB LES * POCT Glucose (02/27/2019 8:28 AM EDT) POC Glucose 107 65 - 199 mg/dL [facility] Comment: Supplemental ranges: <140 mg/dL before meals <180 mg/dL all other times of the day Blood specimen (specimen) 02/27/2019 8:28 AM EDT 02/27/2019 8:28 AM EDT Bettie Serrano SUPERVISOR [employer] POINT OF CARE T EST ORDERABLES [facility] [place] [address] documented in this encounter Visit Diagnoses Diagnosis Small cell lung cancer, right upper lobe documented in this encounter Administered Medications Inactive Administered Medications - up to 3 most recent administrations Medication Order MAR Action Action Date Dose Rate Site fludeoxyglucose (F-18) FDG injection 12.06 mCi 12.06 mCi, Intravenous, ONCE PRN, 1 dose, Starting on Wed02/27/19 at 0839, Until Wed02/27/19 at 0839, Per Protocol, Routine Given 02/27/2019 8:39 AM EDT 12.06 mCi Right Arm documented in this encounter Care Teams Geothermal Sheet Metal Worker Relationship Specialty Start Date End Date Nataliya Messina MD [address] [place] [address] PCP - General 10/02/11 01/11/22 documented as of this encounter
--- OUTSIDE RECORDS SUMMARY | 2024-01-05 02:44 | XMS_ITS | Encounter Summary ---
[place] [address] Care Team Providers Care Uniform Maker Name Role Phone Nataliya Messina MD Primary Care Provider [phone]- [phone] Encounter Details Date Type Department Care Team (Late st Contact Info) Description 08/08/2019 [place] [phone] Johana Francois RT Social History Tobacco Use [...] Telephone Encounter - Johana Francois RT - 08/08/2019 5:15 PM EST Called Hieu Tillman at home and LM returning his call regarding referral to pulmonary rehab. LM for him to call with closest hospital to him that he would prefer to participate in pulm rehab for referral to be forwarded to that program documented in this encounter Plan of Treatment Upcoming Encounters Date Type Department Care Team (Late st Contact Info) Description 01/10/2024 7:45 AM EDT Appointment H[place]ology [place] [address] 01/21/2024 10:[address] [place] [place] [address] Heber Phillips MD [facility] DR HEMATOLOGY/[place] [address] 03/28/2024 10:00 AM EDT Office Visit Hematology/Oncology at [address] [address] Heber Phillips MD [facility] DR HEMATOLOGY/[place] [address] Isabella Baker APRN [facility] [place] [address] documented as of this encounter Visit Diagnoses Not on filedocumented in this encounter Care Teams Uniform Maker Relationship Specialty Start Date End Date Nataliya Messina MD [address] [facility] [address] [place] [address] PCP - General 10/02/11 01/11/22 documented as of this encounter
--- OUTSIDE RECORDS SUMMARY | 2024-01-05 02:44 | XMS_ITS | Encounter Summary ---
Author Organization [facility] [place] [address] Care Team Providers Care Jacquard Card Cutter Name Role Phone Nataliya Messina MD Primary Care Provider [phone] Reason for Referral * Diagnostic Test (Routine) - Closed Specialty Diagnoses / Procedures Referred By Contac t Referred To Contact Radiology Diagnoses Small cell lung cancer, right upper lobe Procedures NM PET CT Skull Base to Mid-thigh Heber Phillips MD [facility] DR HEMATOLOGY/[place] [address] [place] [address] Referral ID Status Reason Start Date Expiration Date V isits Requested Visits Authorized [id number] Closed Specialty Service Requested 06/06/2019 12/05/2020 1 1 Reason for Visit * Diagnostic Test (Routine) - Closed Specialty Diagnoses / Procedures Referred By Contac t Referred To Contact Radiology Diagnoses Small cell lung cancer, right upper lobe Procedures NM PET CT Skull Base to Mid-thigh Heber Phillips MD [facility] HEMATOLOGY/[place] [address] [place] [address] Referral ID Status Reason Start Date Expiration Date V isits Requested Visits Authorized [id number] Closed Specialty Service Requested 06/06/2019 12/05/2020 1 1 Encounter Details Date Type Department Care Team (Latest Contact Info) Description 10/16/2019 10:00 AM EDT Hospital Encounter Nuclear Medicine at [facility] [place] [address] Heber Phillips MD [facility] HEMATOLOGY/[place] [address] Small cell lung cancer, right upper lobe [...] AM EDT Appointment Hematology [place] [phone] 01/21/2024 10:[address] [place] [place] [address] Heber Phillips MD [facility] HEMATOLOGY/[place] [address] 03/28/2024 10:00 AM EDT Office Visit Hematology/Oncology at [address] [phone] Heber Phillips MD [facility] DR HEMATOLOGY/[place] [address] Isabella Baker APRN [facility] [place] [address] documented as of this encounter Procedures Procedure Name Priority Date/Time Associated Diagnosis Comments NM PET CT SKULL BASE TO MID-THIGH (LCSR) Routine 10/16/2019 11:34 AM EDT Small cell lung cancer, right upper lobe documented in this encounter Results * NM PET CT Skull Base to Mid-thigh (10/16/2019 11:34 AM EDT) Anatomical Region Laterality Modality Positron Emissio n Tomography (PET) Impressions 10/16/2019 1:50 PM EDT 1. ??No evidence for tumor recurrence or metastasis. 2. ??Stable postradiation changes in the right upper lobe. I have personally reviewed the image(s) and the resident's interpretation and agree with the findings, Tino Gallardo at 10/16/2019 1:50 PM Thank you for letting us participate in the care of this patient. For questions regarding this report, please contact the number below. ? Narrative 10/16/2019 1:50 PM EDT EXAMINATION: NM PET CT SKULL BASE TO MID-THIGH ? CLINICAL HISTORY: Small cell lung cancer, restaging exam. TECHNIQUE: Following IV injection of 94-nrrfyz-9-deoxyglucose (FDG) a standard uptake of approximately 60 minutes, a noncontrast CT scan followed by a PET scan were acquired from the base of the skull to mid thighs. The noncontrast CT was used for anatomic localization and photon attenuation correction of the PET scan. Blood glucose level: 125 (mg/dL) FDG dose: 12.5 mCi COMPARISON: PET CT dated 05/25/2019, CT chest 12/15/2017. FINDINGS: HEAD/NECK: Normal activity in all soft tissue regions of the neck and visualized lower head. No adenopathy. CHEST: CT visualized ill-defined residual right upper lobe mass and adjacent right upper lobe fibrotic changes have no significant activity above reference mediastinal background and is not significantly changed in anatomic appearance compared to prior PET dated 05/25/2019. Normal activity in all other soft tissue regions. No significant adenopathy. Cluster of CT visualized sub-5 mm pulmonary nodules in the posterior right lower lobe (axial images 88 through 90), stable compared to remote CT chest of 12/15/2017. Coronary and aortic calcifications are again noted. Right chest port with tip in the proximal right atrium. ABDOMEN/PELVIS: Normal activity in all soft tissue regions. Sigmoid colon and descending colon diverticulosis. Several subcentimeter stable right hepatic cysts. Unchanged 31 mm infrarenal abdominal aortic aneurysm. Diffuse vascular calcifications are again noted. SKELETON/EXTREMITIES: Decreased marrow activity in the upper thoracic spine is consistent with postradiation change. Normal marrow activity in remainder of the axial and visualized proximal appendicular skeleton Procedure Note Tino Gallardo MD - 10/16/2019 EXAMINATION: NM PET CT SKULL BASE TO MID-THIGH CLINICAL HISTORY: Small cell lung cancer, restaging exam. TECHNIQUE: Following IV injection of 33-ajmqgl-8-deoxyglucose (FDG) astandard uptake of approximately 60 minutes, a noncontrast CT scan followed by aPET scan were acquired from the base of the skull to mid thighs. The noncontrast CTwas used for anatomic localization and photon attenuation correction of thePET scan. Blood glucose level: 125 (mg/dL) FDG dose: 12.5 mCi COMPARISON: PET CT dated 05/25/2019, CT chest 12/15/2017. FINDINGS: HEAD/NECK: Normal activity in all soft tissue regions of the neck and visualizedlower head. No adenopathy. CHEST: CT visualized ill-defined residual right upper lobe mass and adjacentright upper lobe fibrotic changes have no significant activity above reference mediastinal background and is not significantly changed in anatomicappearance compared to prior PET dated 05/25/2019. Normal activity in all other softtissue regions. No significant adenopathy. Cluster of CT visualized sub-5 mmpulmonary nodules in the posterior right lower lobe (axial images 88 through 90),stable compared to remote CT chest of 12/15/2017. Coronary and aorticcalcifications are again noted. Right chest port with tip in the proximal right atrium. ABDOMEN/PELVIS: Normal activity in all soft tissue regions. Sigmoid colon and descendingcolon diverticulosis. Several subcentimeter stable right hepatic cysts.Unchanged 31 mm infrarenal abdominal aortic aneurysm. Diffuse vascular calcificationsare again noted. SKELETON/EXTREMITIES: Decreased marrow activity in the upper thoracic spine is consistent with postradiation change. Normal marrow activity in remainder of the axialand visualized proximal appendicular skeleton IMPRESSION 1. No evidence for tumor recurrence or metastasis. 2. Stable postradiation changes in the right upper lobe. I have personally reviewed the image(s) and the resident's interpretationand agree with the findings, Tino Gallardo at 10/16/2019 1:50 PM Thank you for letting us participate [...] Intravenous, ONCE PRN, 1 dose, Starting on Mon 20 at 1030, Until Wed10/16/19 at 1022, Per Protocol, Radiology Contrast, Routine Given 10/16/2019 10:22 AM EDT 12.5 mCi Right Arm documented in this encounter Care Teams Jacquard Card Cutter Relationship Specialty Start Date End Date Nataliya Messina MD [address] [place] [address] PCP - General 10/02/11 01/11/22 documented as of this encounter
--- OUTSIDE RECORDS SUMMARY | 2024-01-05 02:44 | XMS_ITS | Encounter Summary ---
Author Organization [facility] [place] [address] Care Team Providers Care Instructor Warper Name Role Phone Nataliya eMssina MD Primary Care Provider [phone] Encounter Details Date Type Department Care Team (Late st Contact Info) Description 01/09/2019 Orders Only Hematology [place] [phone] Heber Phillips MD [facility] HEMATOLOGY/[place] [address] Social History Tobacco Use Types Packs/Day Years [...] AM EDT Appointment Hematology [place] [phone] 01/21/2024 10:[address] [place] [phone] Heber Phillips MD [facility] HEMATOLOGY/ONCOLOGY [place], [place] [phone] 03/28/2024 10:00 AM EDT Office Visit Hematology/Oncology at [address] [phone] Heber Phillips MD [facility] DR HEMATOLOGY/[place] [address] Isabella Baker APRN [facility] [place] [address] documented as of this encounter Visit Diagnoses Not on filedocumented in this encounter Care Teams Instructor Warper Relationship Specialty Start Date End Date Nataliya Messina MD [address] [place] [address] PCP - General 10/02/11 01/11/22 documented as of this encounter
--- OUTSIDE RECORDS SUMMARY | 2024-01-05 02:44 | XMS_ITS | Encounter Summary ---
Author Organization Counts Include [facility] Address [facility] [place] [address] Care Team Providers Care Foreign Food Specialty Cook Name Role Phone Nataliya Messina MD Primary Care Provider [phone] Encounter Details Date Type Department Care Team (Late st Contact Info) Description 07/10/2019 Orders [place] [phone] Mariella Sarmiento MD [facility] [place] [address] COPD, very severe Social History Tobacco Use [...] AM EDT Appointment Hematology [place] [phone] 01/21/2024 10:[address] [place] [phone] Heber Phillips MD [facility] HEMATOLOGY/ONCOLOGY [place], [place] [phone] 03/28/2024 10:00 AM EDT Office Visit Hematology/Oncology at [address] [address] Heber Phillips MD [facility] DR HEMATOLOGY/[place] [address] Isabella Baker APRN [facility] [place] [address] documented as of this encounter Visit Diagnoses Diagnosis COPD, very severe Chronic airway obstruction, not elsewhere classified documented in this encounter Care Teams Foreign Food Specialty Cook Relationship Specialty Start Date End Date Nataliya Messina MD [address] [place], [place] [address] PCP - General 10/02/11 01/11/22 documented as of this encounter
--- OUTSIDE RECORDS SUMMARY | 2024-01-05 02:44 | XMS_ITS | Encounter Summary ---
Author Organization [facility] [place] [facility] [place] [address] Care Team Providers Care Textile Slitting Machine Operator Name Role Phone Nataliya Messina MD Primary Care Provider [phone] Encounter Details Date Type Department Care Team (Late st Contact Info) Description 03/09/2019 Refill Hematology/Oncology at [address] [address] Heber Phillips MD [facility] HEMATOLOGY/[place] [address] Small cell lung cancer, right upper lobe [...] AM EDT Appointment Hematology [place] [address] 01/21/2024 10:[address] [place] [place] [phone] Heber Phillips MD [facility] HEMATOLOGY/[place] [address] 03/28/2024 10:00 AM EDT Office Visit Hematology/Oncology at [address] [address] Heber Phillips MD [facility] DR HEMATOLOGY/[place] [address] Isabella Baker APRN [facility] [place] [address] documented as of this encounter Visit Diagnoses Diagnosis Small cell lung cancer, right upper lobe documented in this encounter Care Teams Textile Slitting Machine Operator Relationship Specialty Start Date End Date Nataliya Messina MD [address] [place] [address] PCP - General 10/02/11 01/11/22 documented as of this encounter
--- OUTSIDE RECORDS SUMMARY | 2024-01-05 02:44 | XMS_ITS | Encounter Summary ---
Author Organization [facility] [place] [address] Care Team Providers Care Steward/Stewardess Night Name Role Phone Nataliya Messina MD Primary Care Provider [phone] Reason for Referral * Consultation (Urgent) - Closed Specialty Diagnoses / Procedures Referred By Contac t Referred To Contact Pulmonology Diagnoses SOB (shortness of breath) Hemoptysis Small cell lung cancer, right upper lobe Heber Phillips MD [facility] DR HEMATOLOGY/[place] [address] [facility]mon[facility] [address] [place] [phone] Referral ID Status Reason Start Date Expiration Date V isits Requested Visits Authorized [id number] Closed Consult, Test & Treat 06/20/2019 06/19/2020 1 1 Encounter Details Date Type Department Care Team (Late st Contact Info) Description 06/20/2019 Orders Only Hematology/Oncology at [address] [address] Heber Phillips MD [facility] HEMATOLOGY/[place] [address] SOB (shortness of breath); Hemoptysis; Small cell lung cancer, right upper lobe [...] AM EDT Appointment Hematology [place] [address] 01/21/2024 10:[address] [place] [place] [address] Heber Phillips MD [facility] HEMATOLOGY/[place] [address] 03/28/2024 10:00 AM EDT Office Visit Hematology/Oncology at [address] [phone] Heber Phillips MD [facility] DR HEMATOLOGY/[place] [address] Isabella Baker APRN [facility] [place] [address] Scheduled Referrals Name Type Priority Associated Diagnoses Order Schedule Referral to Pulmonology Outpatient Referral Routine SOB (shortness of breath) Hemoptysis Small cell lung cancer, right upper lobe Ordered: 06/20/2019 documented as of this encounter Visit Diagnoses Diagnosis SOB (shortness of breath) Shortness of breath Hemoptysis Hemoptysis, unspecified Small cell lung cancer, right upper lobe documented in this encounter Care Teams Steward/Stewardess Night Relationship Specialty Start Date End Date Nataliya Messina MD [address] [place], [place] [address] [address] [place] [address] PCP - General 10/02/11 01/11/22 documented as of this encounter
--- OUTSIDE RECORDS SUMMARY | 2024-01-05 02:44 | XMS_ITS | Encounter Summary ---
Author Organization [facility] [place] [address] Care Team Providers Care Software Team Leader Name Role Phone Nataliya Messina MD Primary Care Provider [phone] Reason for Referral * Diagnostic Test (Routine) - Closed Specialty Diagnoses / Procedures Referred By Contac t Referred To Contact Radiology Diagnoses Small cell lung cancer, right upper lobe Procedures NM PET CT Skull Base to Mid-thigh Heber Phillips MD [facility] DR HEMATOLOGY/[place] [address] [place] [address] Referral ID Status Reason Start Date Expiration Date V isits Requested Visits Authorized [id number] Closed Specialty Service Requested 03/07/2019 03/06/2020 1 1 Encounter Details Date Type Department Care Team (Late st Contact Info) Description 03/07/2019 2:00 PM EDT Office Visit Hematology/Oncology at [address] [phone] Heber Phillips MD [facility] HEMATOLOGY/[place] [address] Small cell lung cancer, right upper lobe; SOB (shortness of breath); Post-radiation pneumonitis Social History Tobacco Use Types Packs/Day Years [...] Sign Reading Time Taken Comments Blood Pressure 121/70 03/07/2019 2:08 PM EDT Pulse 98 03/07/2019 2:08 PM EDT Temperature 36.5 ??C (97.7 ??F) 03/07/2019 2:08 PM ED T Respiratory Rate 16 03/07/2019 2:08 PM EDT Oxygen Saturation 98% 03/07/2019 2:08 PM EDT Inhaled Oxygen Concentration - - Weight 81.2 kg (179 lb) 03/07/2019 2:08 PM EDT Height 167.6 cm (5' 5.98) 03/07/2019 2:08 PM ED T Body Mass Index 28.91 03/07/2019 2:08 PM EDT documented in this encounter Progress Notes * Heber Phillips MD - 03/07/2019 2:00 PM EDT Images from the original note were not included. Diagnosis: High-grade neuroendocrine cancer of right lung, limited stage, clinical: stage IIIA (cT3, cN1, cM0) Subjective: I feel fine HPI:Britta Saeed is 63 y.o. M referred by Dr. [...] referred for consideration of definitive chemoradiation. Interval history: Mr. Saeed is in clinic for follow-up appointment on small cell lung cancer and discussion of restaging PET scan. He complains on more cough with some phlegm. Feels lightheaded during coughing spells. Denies any pain. Exertional dyspnea is stable. Complaints on mild to moderate dry cough. Denies any nausea, vomiting or pain. No fever or chills. No other focal complaints. PMH: No interval changes since last visit HI in 2013 status post 2 stents placement, [...] radiating to right leg ??? Myocardial infarction [place] about 6 years ago [place] [facility] [place] ??? 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 Marital status: [...] Last attempt to quit: 09/11/2013 Years since quittin.4 ??? Smokeless tobacco: [...] file Gets together: Not on file Attends zoroastrian service: Not on file Active member of [...] Social History Narrative Lives with his in [place], [place]. 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 [...] Medications: Your Medications Accurate as of March 07, 2019 2:05 PM. If you have any questions, ask your nurse or doctor. Continued medications, unchanged Dose Details aspirin 81 mg Tbec Take 81 mg by mouth daily. 81 mg Refills: 0 atorvastatin 80 mg Tab Commonly known as: LIPITOR Take 1 tablet by mouth daily. 80 mg Quantity: 30 tablet Refills: 2 BREO ELLIPTA 100-25 mcg/dose Dsdv Inhale 1 puff into the lungs daily. Generic drug: fluticasone furoate-vilanterol 1 puff Refills: 0 clopidogrel 75 mg Tab Commonly known as: PLAVIX Take 1 tablet by mouth daily. 75 mg Quantity: 90 tablet Refills: 3 COMBIVENT 18-103 mcg/actuation Aero 2 Puff(s), Inh, Twice daily Generic drug: albuterol-ipratropium Refills: 0 FIBER CHOICE ORAL Take 1 tablet by mouth daily. 1 tablet Refills: 0 hydroCHLOROthiazide 25 mg Tab Commonly known as: HYDRODIURIL Take 25 mg by mouth every other day. 25 mg Refills: 0 lisinopril 20 mg Tab Commonly known as: PRINIVIL;ZESTRIL Take 1 tablet by mouth daily. 20 mg Quantity: 90 tablet Refills: 3 MAG-DELAY ORAL Take 1 tablet by mouth. 1 tablet Refills: 0 metoprolol tartrate 25 mg Tab Commonly known as: LOPRESSOR Take 1 tablet by mouth 2 times daily. 25 mg Quantity: 180 tablet Refills: 3 nitroGLYcerin 0.4 mg Subl Commonly known as: NITROSTAT Place 1 tablet under the tongue every 5 minutes as needed. 0.4 mg Quantity: 25 tablet Refills: 12 pantoprazole 40 mg Tbec Commonly known as: PROTONIX Take 40 mg by mouth daily. 40 mg Refills: 0 predniSONE 50 mg Tab Commonly known as: DELTASONE Take one tablet by mouth at 13 hours, 7 hours and 1 hour prior to scheduled exam Quantity: 3 tablet Refills: 0 SPIRIVA WITH HANDIHALER 18 mcg Cpdv Inhale 18 mcg into the lungs daily. 2 puffs QD Generic drug: tiotropium 18 mcg Refills: 0 Review of Systems: Constitutional: Negative for fever, [...] visit. Wt Readings from Last 3 Encounters: 02/07/19 81.6 kg (179 lb 12.8 oz) 10/25/18 80.3 kg (177 lb) 10/18/18 80.3 kg (177 lb) Physical Exam Constitutional: He is oriented [...] content normal. His affect is labile. Labs: Results for BRITTA SAEED ( ) as of 03/07/2019 14:27 Ref. Range 01/23/2019 11:34 WBC Latest Ref Range: 4.0 - 9.5 x10(3)/mcL 12.2 (H) RBC Latest Ref Range: 4.58 - 5.54 x10(6)/mcL 4.81 Hemoglobin Latest Ref Range: 13.7 - 16.5 gm/dL 13.8 Hematocrit Latest Ref Range: 40.5 - 48.5 % 40.1 (L) MCV Latest Ref Range: 82.9 - 93.1 fL 83.4 MCH Latest Ref Range: 27.5 - 32.1 pg 28.7 MCHC Latest Ref Range: 32.0 - 35.7 gm/dL 34.4 RDWSD Latest Ref Range: 36.0 - 45.0 fL 44.7 RDWCV Latest Ref Range: 11.4 - 13.8 % 14.6 (H) Platelets Latest Ref Range: 145 - 357 x10(3)/mcL 400 (H) MPV Latest Ref Range: 7.6 - 12.9 fL 8.9 nRBC % Auto Latest Units: % 0.0 nRBC Abs Auto Latest Ref Range: 0.000 - 0.000 x10(3)/mcL 0.000 Neutr Abs (ANC) Latest Ref Range: 1.70 - 6.10 x10(3)/mcL 11.40 (H) Neutrophils % Latest Units: % 93.2 Immature Gran % Latest Units: % 1.10 Lymphocytes % Latest Units: % 2.7 Monocytes % Latest Units: % 2.9 Eosinophils % Latest Units: % 0.0 Basophils % Latest Units: % 0.1 Suri Gran Abs Latest Ref Range: 0.00 - 0.04 x10(3)/mcL 0.13 (H) Lymphocytes Abs Latest Ref Range: 0.9 - 3.2 x10(3)/mcL 0.3 (L) Monocyte Abs Latest Ref Range: 0.3 - 0.9 x10(3)/mcL 0.4 Eosinophils Abs Latest Ref Range: 0.0 - 0.4 x10(3)/mcL 0.0 Basophils Abs Latest Ref Range: 0.0 - 0.1 x10(3)/mcL 0.0 Sodium Latest Ref Range: 135 - 145 mmol/L 130 (L) Potassium Latest Ref Range: 3.5 - 5.0 mmol/L 4.3 Chloride Latest Ref Range: 98 - 107 mmol/L 91 (L) CO2 Latest Ref Range: 22 - 31 mmol/L 23 Anion Gap Latest Ref Range: 5 - 15 mmol/L 16 (H) BUN Latest Ref Range: 10 - 20 mg/dL 18 Creatinine Latest Ref Range: 0.80 - 1.50 mg/dL 0.99 eGFR Latest Ref Range: >=60 mL/min/1.73 m?? 80 eGFR Latest Ref Range: >=60 mL/min/1.73 m?? 93 Glucose Lvl Latest Ref Range: 65 - 199 mg/dL 182 Calcium Latest Ref Range: 8.5 - 10.5 mg/dL 9.8 Total Protein Latest Ref Range: 6.1 - 8.0 gm/dL 7.5 Albumin Latest Ref Range: 3.2 - 5.2 gm/dL 4.6 Total Bilirubin Latest Ref Range: 0.2 - 1.3 mg/dL 0.3 Alk Phos Latest Ref Range: 40 - 130 unit/L 104 AST Latest Ref Range: 0 - 39 unit/L 20 ALT Latest Ref Range: 0 - 55 unit/L 25 10/17/2018 sodium 153, potassium 4.2, BUN 24, creatinine 1.24, calcium 9.3, TB 0.3, AST 30, ALT 50, alkaline phosphatase 129, total protein 7.9, albumin 3.8, WBC 7.5, hemoglobin 13.6, platelet count 400, ANC 5.55 08/16/2018 sodium 134, BUN 21, creatinine 1.12, calcium 9.4, TB 0.2, AST 25, ALT 35, alkaline phosphatase 121, albumin 3.7 WBC 13.07. Hemoglobin 13.4, platelet count 438 05/18/2018 WBC 7.13, hemoglobin 11.1, platelet count 356, ANC 5.48, sodium 137, BUN 26, creatinine 1.26, calcium 9.0, AST 24, ALT 39, alkaline phosphatase 104, total protein 7.4, albumin 3.9 Imagin02/27/19 PET scan: IMPRESSION 1. No evidence for [...] including history of stroke, severe peripheralvascular disease, HI status post stent placement and COPD. His [...] Dr. Cadena. Britta declined PCI. Mr. Saeed feels more short of breath on exertion. MRI is negative for intracranial disease. CT scan shows new opacities and interstitial thickening right upper lobe. Most likely related to radiation therapy-pneumonitis, but metastatic spread cannot be excluded. There were no opacities on CT scan May 18, 2018. CT scan show increased opacities in the right upper lobe could not distinguish between radiation changes and cancer recurrence. PET scan is negative for metastatic disease. We will continue observation see him back with PET scan and blood work in 3 months. Will obtain restaging brain MRI and an open MRI machine #Depression: feels better on Celexa #Pneumonitis: Cough and shortness of breath, most likely related to radiation changes. We will try 30 mg of prednisone for 7 days with 10 mg every 5-day taper Plan: 1. Prednisone 30 mg a day for 7 days 2 Next visit with CBc, CMP and PET scan in 3 months The plan was discussed with the patient in details. All questions were answered to patient's satisfaction. documented in this encounter Plan of Treatment Upcoming Encounters Date Type Department Care Team (Late st Contact Info) Description 01/10/2024 7:45 AM EDT Appointment Hematology [place] [address] 01/21/2024 10:[address] [place] [address] Heber Phillips MD [facility] [address] HEMATOLOGY/[place] [address] 03/28/2024 10:00 AM EDT Office Visit Hematology/Oncology at [address] [phone] Heber Phillips MD [facility] [address] HEMATOLOGY/[place] [address] Isabella Baker APRN [facility] [place] [address] documented as of this encounter Procedures Procedure Name Priority Date/Time Associated Diagnosis Comments LAB SCAN 06/02/2019 12:00 AM EST MRI/MRA SCAN 03/16/2019 12:00 AM EDT documented in this encounter Results * SCAN DOC: LAB (06/02/2019 12:00 AM EST) Narrative 06/02/2019 12:00 AM EST Ordered by an unspecified provider. Scanning Provider MEDIA MGR SCAN EXT O RDR/RSLT * NM PET CT Skull Base to Mid-thigh (05/25/2019 11:33 AM EST) Anatomical Region Laterality Modality Positron Emissio n Tomography (PET) Impressions 05/26/2019 10:35 AM EST 1. ??No evidence for tumor recurrence or metastasis. 2. ??Stable post radiation changes in the right upper lobe. Thank you for letting us participate in the care of this patient. For questions regarding this report, please contact the number below. ? Narrative 05/26/2019 10:35 AM EST EXAMINATION: NM PET CT SKULL BASE TO MID-THIGH ? CLINICAL HISTORY: Restaging of small cell lung cancer TECHNIQUE: Following IV injection of 71-fkemhb-4-deoxyglucose (FDG) a standard uptake of approximately 60 minutes, a noncontrast CT scan followed by a PET scan were acquired from the base of the skull to mid thighs. The noncontrast CT was used for anatomic localization and photon attenuation correction of the PET scan. Blood glucose level: 113 (mg/dL) FDG dose: 12.1 mCi COMPARISON: None FINDINGS: HEAD/NECK: Normal activity in all soft tissue regions of the neck and visualized lower head. No adenopathy. CHEST: CT visualized ill-defined residual right upper lobe mass and adjacent right upper lobe fibrotic changes have no significant activity above reference mediastinal background and is not significantly changed in anatomic appearance compared to prior PET/CT of 02/27/2019. Normal activity in all other soft tissue regions. No significant adenopathy. Coronary and aortic calcifications again noted. Central line is present with the tip in the proximal right atrium. ABDOMEN/PELVIS: Normal activity in all soft tissue regions. Several subcentimeter stable right hepatic cysts. Stable 31 mm infrarenal abdominal aortic aneurysm. Diffuse vascular calcifications and diverticulosis. SKELETON/EXTREMITIES: Decreased marrow activity in the upper thoracic spine is consistent with postradiation change. Normal marrow activity in remainder of the axial and visualized proximal appendicular skeleton. Procedure Note Tino Gallardo MD - 05/26/2019 EXAMINATION: NM PET CT SKULL BASE TO MID-THIGH CLINICAL HISTORY: Restaging of small cell lung cancer TECHNIQUE: Following IV injection of 27-vxogwb-3-deoxyglucose (FDG) astandard uptake of approximately 60 minutes, a noncontrast CT scan followed by aPET scan were acquired from the base of the skull to mid thighs. The noncontrast CTwas used for anatomic localization and photon attenuation correction of thePET scan. Blood glucose level: 113 (mg/dL) FDG dose: 12.1 mCi COMPARISON: None FINDINGS: HEAD/NECK: Normal activity in all soft tissue regions of the neck and visualizedlower head. No adenopathy. CHEST: CT visualized ill-defined residual right upper lobe mass and adjacentright upper lobe fibrotic changes have no significant activity above reference mediastinal background and is not significantly changed in anatomicappearance compared to prior PET/CT of 02/27/2019. Normal activity in all other softtissue regions. No significant adenopathy. Coronary and aortic calcificationsagain noted. Central line is present with the tip in the proximal rightatrium. ABDOMEN/PELVIS: Normal activity in all soft tissue regions. Several subcentimeter stableright hepatic cysts. Stable 31 mm infrarenal abdominal aortic aneurysm.Diffuse vascular calcifications and diverticulosis. SKELETON/EXTREMITIES: Decreased marrow activity in the upper thoracic spine is consistent with postradiation change. Normal marrow activity in remainder of the axialand visualized proximal appendicular skeleton. IMPRESSION 1. No evidence for tumor recurrence or metastasis. 2. Stable post radiation changes in the right upper lobe. Thank you for letting us participate in the care of this patient. Forquestions regarding this report, please contact the number below. Heber Phillips MD IMG PET ORDERABLES * SCAN DOC: MRI/MRA (03/16/2019 12:00 AM EDT) Anatomical Region Laterality Modality Other Narrative 03/16/2019 12:00 AM EDT Ordered by an unspecified provider. Scanning Provider MEDIA MGR SCAN EXT O RDR/RSLT documented in this encounter Visit Diagnoses Diagnosis Small cell lung cancer, right upper lobe SOB (shortness of breath) Shortness of breath Post-radiation pneumonitis Acute pulmonary manifestations due to radiation Small cell lung cancer, right upper lobe documented in this encounter Care Teams Software Team Leader Relationship Specialty Start Date End Date Nataliya Messina MD [address] [place] [address] PCP - General 10/02/11 01/11/22 documented as of this encounter
--- OUTSIDE RECORDS SUMMARY | 2024-01-05 02:44 | XMS_ITS | Encounter Summary ---
Author Organization [place] [address] Care Team Providers Care Solid Propellant Processor Name Role Phone Nataliya Messina MD Primary Care Provider [phone] Reason for Visit * Reason Onset Date Comments Other 08/31/2019 Encounter Details Date Type Department Care Team (Late st Contact Info) Description 08/31/2019 Telephone Hematology/Oncology at [address] [phone] Aleida Knight RN Other Social [...] Telephone Encounter - Aleida Knight RN - 08/31/2019 11:21 AM EDT Pt's sister called and states Hieu is going to cancel his PET scan for tomorrow and reschedule fora later date as he is concerned about getting covid-19 virus. Tried to reassure them [facility] is safe and open for patients but they are not comfortable. At this point they still wish to see Dr. Phillips on September 11 with labs prior. Told them that is fine and would let Dr. Phillips know and it he wanted to do something different we would call him back. documented in this encounter Plan of Treatment Upcoming Encounters Date Type Department Care Team (Late st Contact Info) Description 01/10/2024 7:45 AM EDT Appointment Hematology [place] [address] 01/21/2024 10:[address] [place] [address] Heber Phillips MD [facility] DR HEMATOLOGY/[place] [address] 03/28/2024 10:00 AM EDT Office Visit Hematology/Oncology at [address] [phone] Heber Phillips MD [facility] DR HEMATOLOGY/[place] [address] Isabella Baker APRN [facility] [place] [address] documented as of this encounter Visit Diagnoses Not on filedocumented in this encounter Care Teams Solid Propellant Processor Relationship Specialty Start Date End Date Nataliya Messina MD [address] [place] [address] [address] [facility] [address] [place], [place] [address] PCP - General 10/02/11 01/11/22 documented as of this encounter
--- OUTSIDE RECORDS SUMMARY | 2024-01-05 02:44 | XMS_ITS | Encounter Summary ---
Author Organization [facility] Address [facility] [place] [address] Care Team Providers Care Oil Lease Operator Name Role Phone Nataliya Messina MD Primary Care Provider [phone] Reason for Visit * Speech Therapy (Routine) - Closed Specialty Diagnoses / Procedures Referred By Contac t Referred To Contact Speech Pathology / Speech Therapy Diagnoses Dysphagia, oropharyngeal phase Mariella Sarmiento MD [facility] [address] [facility] [employer] [place] [address] Referral ID Status Reason Start Date Expiration Date V isits Requested Visits Authorized [id number] Closed Evaluate and Treat 07/10/2019 07/09/2020 1 1 Encounter Details Date Type Department Care Team (Late st Contact Info) Description 07/12/2019 1:30 PM EST Office [place] [phone] Lisa Cadena, GEOMETRY TEACHER [facility] [place] [facility] [place] [address] Dysphagia, oropharyngeal phase Social History Tobacco Use Types Packs/Day Years [...] as of this encounter Miscellaneous Notes * Initial Evaluation - Lisa Cadena, GEOMETRY TEACHER - 07/12/2019 1:30 PM EST Speech Therapy Office Swallow Evaluation Patient Name: Hieu Tillman Date of : 1955 Referring MD: Mariella Sarmiento V Date Seen by MD: 07/10/19 Diagnosis: Dysphagia Date of Onset: Apr 2019 Date of Evaluation: 07/12/2019 Total Treatment Time: 90 minutes Patient Profile: Hieu Tillman is a 63 y.o. male referred for an office swallow evaluation. He is referred by his professor of theology Dr. Sarmiento. Patient's past medical history is significant for severe emphysema, small cell lung cancer s/p radiation, [place] s/p two stents, CVA, R CEA, former tobacco use. Nowwith an increase in exertional dyspnea, and concern for aspiration pneumonitis. Referral for officeswallow evaluation to assess for dysphagia. Pt reports that last encounter with speech pathology was approximately 10 years ago with combined barium swallow evaluation at [facility]. Official results of this exam are not available at this time, however pt recalls that he was told he had mild dysphagia with no aspiration, but the barium pill got caught mid-esophagus. This created a referred globus sensation. Minor changes to pt's dining habits were recommended (such as cutting food into smaller pieces, using liquid wash, reduced rate of intake, and remaining upright after meals). No formal GEOMETRY TEACHER intervention was recommended atthat time. Of note, this evaluation was prior to pt's chemoradiation for lung cancer. Since that time, pt has cut out corn, peas, lettuce and other particulate solids or items with skins or fibrous shells. He has significantly slowed down his rate of intake, with prolonged chewing formore complex solids. GEOMETRY TEACHER at [facility] recommended pt use denture adhesive, which he feels has been helpful. He acknowledges that his dentures probably need to be realigned at this point. Despite these changes in dining habit, pt continues to have choking episodes. When he has one of his 'spells', he describes a gagging, choking, and 'running out of air' nearly to the point of passingout before he is able to cough out whatever the food item is back into his mouth. These episodes occur at least 3+ times per day, and are both during and outside of meals. These have increased in frequency since completion of radiation. He frequently pre-treats with his rescue inhaler prior to dinner meal. States that he tries to be extremely careful while eating, as he lives alone. He notes thatsince starting the steroid prescribed by his professor of theology he is experiencing less coughing outsideof meals. He plans to start pulmonary rehab at [facility] soon. Subjective: Pt is a pleasant, conversant gentleman. Objective: Pt seen for evaluation today. Pain: pt in no significant pain at this time. Respiratory Status: Pt on room air, dyspneic after ambulating to office. Uses several energy conservation strategies with good effect throughout the day. Vision: aided with glasses Hearing: possible mild hearing loss, remains functional Current Diet: regular solids, thin liquids Feeding / Oral Care Status: Pt is independent Cognitive-Linguistic Status: alert, oriented to person, place, and time Follows Commands: Follows multi-step commands Positioning: Pt up to chair Oral / Laryngeal Mechanism Clinical Assessment: ?? Lingual: reduced lingual elevation, other lingual ROM and strength appears adequate ?? Labial / Buccal: symmetric smile, adequate lip closure for cheek puff ?? Velar: symmetric elevation ?? Sensation: appears intact ?? Vocal fold function and airway protection: Phonates well, cough is productive. Coughing noted outside of PO trials ?? Speech Intelligibility: Clearly intelligible for conversation length utterances ?? Mucosa: dry ?? Dentition: dentures, upper ?? dentures, lower. Pt notes they most likely need to get adjusted again, but fit well enough with adhesive in place. Bolus Presentation(s) ?? thin liquid via cup ?? regular solids Oral Preparatory Phase ?? Mastication: Adequate for consistencies trialed. Pt noted to have slightly prolonged masticationfor regular solids, which he attributes to anxiety about choking. ?? Oral Transit: Adequate ?? Bolus Cohesion: Adequate. ?? Labial Seal / Loss: Negative ?? Oral Stasis: Negative. Trace oral residue following regular solid clears with liquid wash. Pharyngeal Phase ?? Laryngeal Elevation: Present, effortful (but again, attributed to pt's anxiety rather than suspicion of weakness) ?? Vocal quality change: negative ?? Cough / throat clear: negative ?? Pt. complaint of food getting stuck: negative ?? Fatigue across trials: No ?? Respiratory rate and respiratory swallow pattern: Coordinated Esophageal Phase ?? Suspected esophageal dysphagia secondary to: Case interview gathered. Education: Patient educated on results and recommendations, and verbalized understanding. Assessment: Pt presents with what appears to be normal oropharyngeal swallow function based on today's clinical assessment in office. However, given concerns for silent aspiration raised by chest imaging, as well as findings from combined barium swallow conducted approximately 10 years ago at [facility], would strongly recommend combined barium swallow. Suspect that pt is experiencingesophageal dysphagia s/p chemoradiation treatment for lung cancer that is referring sensation to pharynx, but cannot definitively prove this without instrumental assessment. Will attempt to schedule this appointment on the same day as pt's PET to reduce the travel burden for patient. Diagnosis: Normal oropharyngeal swallow, suspected esophageal dysphagia Recommendations: Diet: Regular solids, Thin liquids PO medications: whole with sip of liquid Aspiration precautions: Upright position during meals and for at least 30 mins following Small sips and bites while eating Slow rate; swallow between bites Alternate liquids and solids Excellent oral care Plan: Combined barium swallow, will attempt to schedule in afternoon of 07/03 following PET If that is not possible, will seek MBS at [facility] per pt request Pt in agreement with this plan Thank you for this consult with this patient. Please feel free to page me with any questions or concerns. Lisa Cadena MS, CCC-GEOMETRY TEACHER Inpatient Speech Pathologist Pager #[phone] documented in this encounter Plan of Treatment Upcoming Encounters Date Type Department Care Team (Late st Contact Info) Description 01/10/2024 7:45 AM EDT Appointment Hematology [place] [address] 01/21/2024 10:[address] [place] [address] Heber Phillips MD [facility] [place] [address] 03/28/2024 10:00 AM EDT Office Visit Hematology/Oncology at [address] [address] Heber Phillips MD [facility] DR HEMATOLOGY/[place] [address] Isabella Baker APRN [facility] [place] [place] [address] Scheduled Referrals Name Type Priority Associated Diagnoses Orde r Schedule Referral to Speech Therapy Outpatient Referral Routine Dysphagia, oropharyngeal phase Ordered: 07/10/2019 documented as of this encounter Visit Diagnoses Diagnosis Dysphagia, oropharyngeal phase documented in this encounter Care Teams Oil Lease Operator Relationship Specialty Start Date End Date Nataliya Messina MD [address] [place] [address] PCP - General 10/02/11 01/11/22 documented as of this encounter
--- OUTSIDE RECORDS SUMMARY | 2024-01-05 02:44 | XMS_ITS | Encounter Summary ---
Author Organization [facility] [place] [address] Care Team Providers Care Office Nurse Name Role Phone Nataliya Messina MD Primary Care Provider [phone] Reason for Visit * Reason Onset Date Comments Hemoptysis 06/20/2019 x 2 days Encounter Details Date Type Department Care Team (Late st Contact Info) Description 06/20/2019 Telephone Hematology/Oncology at [address] [phone] Kiley Silva RN Hemoptysis (x 2 days) Social History Tobacco Use Types Packs/Day Years [...] encounter Miscellaneous Notes * Telephone Encounter - Kiley Silva RN - 06/20/2019 10:18 AM EST Patient calling today because of two days of coughing with hemoptysis. He stated two days ago he had a coughing fit that lasted quite a while, very deep cough and began to have blood in his sputum. He continues to exhibit shortness of breath as before but denies any chest pain. He states he has notheard from the orthodontic band maker about an upcoming appointment. I advised patient I would discuss this with you and we would be calling him back. 1235: Patient states that he has not coughed up any blood today, denies pain. He said it was not juana blood but streaks of blood and some tissue. He received a call from Pulmonology and will call them back to schedule an appointment. Dr. Phillips changed the priority of the visit to urgent. Patient is aware that he is to attempt to see Pulmonology as soon as possible and that if the hemo ptysis worsens he experiences pain or increased shortness of breath he should go to the local Emergency Department. documented in this encounter Plan of Treatment Upcoming Encounters Date Type Department Care Team (Late st Contact Info) Description 01/10/2024 7:45 AM EDT Appointment Hematology [place] [address] 01/21/2024 10:[address] [place] [address] Heber Phillips MD [facility] DR HEMATOLOGY/[place] [address] 03/28/2024 10:00 AM EDT Office Visit Hematology/Oncology at [address] [phone] Heber Phillips MD [facility] DR HEMATOLOGY/[place] [address] Isabella Baker APRN [facility] [place] [address] documented as of this encounter Visit Diagnoses Not on filedocumented in this encounter Care Teams Office Nurse Relationship Specialty Start Date End Date Nataliya Messina MD [address] [place] [address] [address] [place], [place] [address] PCP - General 10/02/11 01/11/22 documented as of this encounter
--- OUTSIDE RECORDS SUMMARY | 2024-01-05 02:44 | XMS_ITS | Encounter Summary ---
[place] [address] Care Team Providers Care Manager Cleaning Name Role Phone Nataliya Messina MD Primary Care Provider [phone] Reason for Visit * Reason Onset Date Comments Other 07/10/2019 Faxed demographi cs, chart note and nebulizer order to [facility] fax for the [place], [place] office Encounter Details Date Type Department Care Team (Late st Contact Info) Description 07/10/2019 Telephone [place] [phone] Wen Ashford, RN Other (Faxed demographics, chart note and nebulizer order to [facility] [employer] for the [place], [place] office) Social History Tobacco Use Types Packs/Day Years [...] AM EDT Appointment Hematology [place] [phone] 01/21/2024 10:[address] [place] [address] Heber Phillips MD [facility] DR HEMATOLOGY/[place] [address] 03/28/2024 10:00 AM EDT Office Visit Hematology/Oncology at [address] [address] Heber Phillips MD [facility] DR HEMATOLOGY/[place] [address] Isabella Baker APRN [facility] [place] [address] documented as of this encounter Visit Diagnoses Not on filedocumented in this encounter Care Teams Manager Cleaning Relationship Specialty Start Date End Date Nataliya Messina MD [address] [place] [address] 1 [place], [place] [address] PCP - General 10/02/11 01/11/22 documented as of this encounter
--- OUTSIDE RECORDS SUMMARY | 2024-01-05 02:44 | XMS_ITS | Encounter Summary ---
Author Organization [facility] [place] [address] Care Team Providers Care Bun Panner Name Role Phone Nataliya Messina MD Primary Care Provider [phone] Reason for Referral * Consultation (Routine) - Closed Specialty Diagnoses / Procedures Referred By Contac t Referred To Contact Pulmonology Diagnoses Small cell lung cancer, right upper lobe SOB (shortness of breath) Chronic cough Post-radiation pneumonitis Heber Phillips MD [facility] DR HEMATOLOGY/[place] [address] [facility] Pulmonology [address] [place] [phone] Referral ID Status Reason Start Date Expiration Date V isits Requested Visits Authorized [id number] Closed Consult, Test & Treat 06/06/2019 06/05/2020 1 1 * Diagnostic Test (Routine) - Closed Specialty Diagnoses / Procedures Referred By Contac t Referred To Contact Radiology Diagnoses Small cell lung cancer, right upper lobe Procedures NM PET CT Skull Base to Mid-thigh Heber Phillips MD [facility] HEMATOLOGY/[place] [address] [facility] [place] [address] Referral ID Status Reason Start Date Expiration Date V isits Requested Visits Authorized [id number] Closed Specialty Service Requested 06/06/2019 12/05/2020 1 1 Reason for Visit * Reason Comments Follow-up Encounter Details Date Type Department Care Team (Late st Contact Info) Description 06/06/2019 2:00 PM EST Office Visit Hematology/Oncology at [address] [address] Heber Phillips MD [facility] [address] Mary Cleaning RN Small cell lung cancer, right upper lobe; SOB (shortness of breath); Chronic cough; Post-radiation pneumonitis Social History Tobacco Use Types [...] Sign Reading Time Taken Comments Blood Pressure 130/67 06/06/2019 2:16 PM EST Pulse 95 06/06/2019 2:16 PM EST Temperature 36.3 ??C (97.3 ??F) 06/06/2019 2:16 PM ES T Respiratory Rate 16 06/06/2019 2:16 PM EST Oxygen Saturation 98% 06/06/2019 2:16 PM EST Inhaled Oxygen Concentration - - Weight 83 kg (183 lb) 06/06/2019 2:16 PM EST Height 167.6 cm (5' 5.98) 06/06/2019 2:16 PM ES T Body Mass Index 29.55 06/06/2019 2:16 PM EST documented in this encounter Progress Notes * Heber Phillips MD - 06/06/2019 2:00 PM EST Images from the original note were not included. Diagnosis: High-grade neuroendocrine cancer of right lung, limited stage, clinical: stage IIIA (cT3, cN1, cM0) Subjective: I feel windy HPI:Hieu Tillman is 63 y.o. M referred by [...] consideration of definitive chemoradiation. Interval history: Mr. Tillman is in clinic for follow-up appointment on small cell lung cancer and discussion of restaging PET scan. He complains on shortness of breath with minimal exertion and cough with some phlegm. Feels lightheaded during coughing spells. Denies any pain. Exertional dyspnea is getting worse. Denies any nausea, vomiting or pain. No fever or chills. No other focal complaints. PMH: No interval changes since last visit [facility] in 2013 status post 2 stents placement, [...] radiating to right leg ??? Myocardial infarction [facility] about 6 years ago @ [facility]-has stents ??? 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 Marital status: [...] Last attempt to quit: 09/11/2013 Years since quittin.7 ??? Smokeless tobacco: Never Used Substance and [...] file Gets together: Not on file Attends jew service: Not on file Active member of [...] Social History Narrative Lives with his in [place], [place]. 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 [...] well. Medications: Your Medications Accurate as of June 06, 2019 2:29 PM. If you have any questions, ask [...] clopidogrel 75 mg Tab Commonly known as: Plavix Take 1 tablet by mouth daily. 75 mg Quantity: 90 tablet Refills: 3 Combivent 18-103 mcg/actuation Aero 2 Puff(s), Inh, Twice daily Generic drug: albuterol-ipratropium Refills: 0 FIBER CHOICE ORAL Take 1 tablet by mouth daily. 1 tablet Refills: 0 hydroCHLOROthiazide 25 mg Tab Commonly known as: Hydrodiuril Take 25 mg by mouth every other day. 25 mg Refills: 0 lisinopril 20 mg Tab Commonly known as: Prinivil;Zestril [...] Neurological: Negative. Hematological: Negative for adenopathy. BP 130/67 (Patient Position: Sitting) Pulse 95 Temp 36.3 ??C (97.3 ??F) (Oral) Resp 16 Ht 167.6 cm (5' 5.98) Wt 83 kg (183 lb) SpO2 98% BMI 29.55 kg/m?? Wt Readings from Last 3 Encounters: 06/06/19 83 kg (183 lb) 05/19/19 81.6 kg (180 lb) 03/07/19 81.2 kg (179 lb) Physical Exam Constitutional: He is oriented [...] content normal. His affect is labile. Labs: 06/02/2009 BUN 13, creatinine 1.05, calcium 10.1, 6, ALT 43, alkaline phosphatase 112, total protein 7.6, albumin 4.0, 24, potassium 4.7, WBC 8.33, hemoglobin 13.9, platelet count 420, ANC 5.91 10/17/2018 sodium 153, potassium 4.2, BUN 24, [...] phosphatase 104, total protein 7.4, albumin 3.9 Imagin05/25/19 PET scan: IMPRESSION 1. No evidence for [...] including history of stroke, severe peripheralvascular disease, [place] status post stent placement and COPD. His [...] Dr. Cadena. Hieu declined PCI. Mr. Tillman feels more short of breath on exertion. MRI is negative for intracranial disease. CT scan shows new opacities and interstitial thickening right upper lobe. Most likely related to radiation therapy-pneumonitis, but metastatic spread cannot be excluded. There were no opacities on CT scan May 18, 2018. CT scan show increased opacities in the right upper lobe. Surveillance PET scan is negative for metastatic disease. We will continue observation see him backwith PET scan and blood work in 3 months. #Depression: feels better on Celexa #Dyspnea/dry cough: Exertional dyspnea is getting worse. [place] better on prednisone in the beginningbut after tapering off prednisone cough and dyspnea back. 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 Referral to wealth management director 2 Next visit with CBc, CMP and PET scan in 3 months The plan was discussed with the patient in details. All questions were answered to patient's satisfaction. documented in this encounter Plan of Treatment Upcoming Encounters Date Type Department Care Team (Late st Contact Info) Description 01/10/2024 7:45 AM EDT Appointment [place] [address] 01/21/2024 10:[address] [place] [address] Heber Phillips MD [facility] DR HEMATOLOGY/[place] [address] 03/28/2024 10:00 AM EDT Office Visit Hematology/Oncology at [address] [address] Heber Phillips MD [facility] [address] HEMATOLOGY/[place] [address] Isabella Baker APRN [facility] [place] [address] Scheduled Referrals Name Type Priority Associated Diagnoses Orde r Schedule Referral to Pulmonology Outpatient Referral Routine Small cell lung cancer, right upper lobe SOB (shortness of breath) Chronic cough Post-radiation pneumonitis Ordered: 06/06/2019 documented as of this encounter Results * [...] below. ? Electronically signed by: Tino Gallardo [facility] ([phone]), at 10/16/2019 1:50 PM Narrative 10/16/2019 1:50 PM EDT EXAMINATION: NM PET CT SKULL BASE TO MID-THIGH ? CLINICAL HISTORY: Small cell lung cancer, restaging exam. TECHNIQUE: Following IV injection of 01-cmxgiu-8-deoxyglucose (FDG) a standard uptake of approximately 60 [...] restaging exam. TECHNIQUE: Following IV injection of 84-kwgdtr-9-deoxyglucose (FDG) astandard uptake of approximately 60 minutes, [...] number below. Electronically signed by: Tino Gallardo [facility]([phone]), at 10/16/2019 1:50 PM Heber Phillips MD IMG PET ORDERABLES documented in this encounter Visit Diagnoses Diagnosis Small cell lung cancer, right upper lobe SOB (shortness of breath) Shortness of breath Chronic cough Cough Post-radiation pneumonitis Acute pulmonary manifestations due to radiation Small cell lung cancer, right upper lobe documented in this encounter Care Teams Bun Panner Relationship Specialty Start Date End Date Nataliya Messina MD [address] [facility] [address] [place] [address] PCP - General 10/02/11 01/11/22 documented as of this encounter
--- OUTSIDE RECORDS SUMMARY | 2024-01-05 02:44 | XMS_ITS | Encounter Summary ---
Author Organization [facility] [place] [address] Care Team Providers Care Strategy Consultant Name Role Phone Nataliya Messina MD Primary Care Provider [phone] Reason for Visit * Reason Onset Date Comments Follow-up 03/14/2019 Encounter Details Date Type Department Care Team (Late st Contact Info) Description 03/14/2019 Telephone Hematology/Oncology at [address] [address] Carlo Hassan, RN Follow-up Social History Tobacco Use Types [...] encounter Miscellaneous Notes * Telephone Encounter - Carlo Hassan, BOB - 03/14/2019 12:43 PM EDT Called and spoke with Hieu Tillman to follow up on how his cough is doing. Pt reports he is much better since starting the steroids. He will taper down to 20 mg daily for 5 days then 10 mg daily for5 days then stop, as prescribed. Pt is in agreement with taper instructions and has a good understanding of this. He is also advised to call back if symptoms worsen or with any other changes or concerns. He was thankful for the call. ----- Message from Aleida Knight, RN sent at 03/07/2019 2:48 PM EDT ----- Regarding: call and see how cough is doing See if cough better since starting prednisone. If not let Heber know. Otherwise he should finish taper as prescribed ty aleida documented in this encounter Plan of Treatment Upcoming Encounters Date Type Department Care Team (Late st Contact Info) Description 01/10/2024 7:45 AM EDT Appointment Hematology [place] [address] 01/21/2024 10:[address] [place] [address] Heber Phillips MD [facility] DR HEMATOLOGY/[place] [address] 03/28/2024 10:00 AM EDT Office Visit Hematology/Oncology at [address] [address] Heber Phillips MD [facility] DR HEMATOLOGY/[place] [address] Isabella Baker APRN [facility] [place] [address] documented as of this encounter Visit Diagnoses Not on filedocumented in this encounter Care Teams Strategy Consultant Relationship Specialty Start Date End Date Nataliya Messina MD [address] [place] [address] [address] [place], [place] [id number] PCP - General 10/02/11 01/11/22 documented as of this encounter
--- OUTSIDE RECORDS SUMMARY | 2024-01-05 02:44 | XMS_ITS | Encounter Summary ---
Author Organization [facility] Address [facility] [place] [address] Care Team Providers Care Bolt Sawyer Name Role Phone None Primary Care Provider Unavailabl e Reason for Visit * Reason Comments Medication Refill Encounter Details Date Type Department Care Team (Late Contact Info) Description 08/05/2019 [place] [phone] Mariella Sarmiento MD [facility] [place] [address] Social History Tobacco Use Types Packs/Day Years [...] AM EDT Appointment Hematology [place] [phone] 01/21/2024 10:[address] [place] [phone] Heber Phillips MD [facility] HEMATOLOGY/[place] [address] 03/28/2024 10:00 AM EDT Office Visit Hematology/Oncology at [address] [address] Heber Phillips MD [facility] DR HEMATOLOGY/[place] [address] Isabella Baker APRN [facility] [place] [address] documented as of this encounter Visit Diagnoses Not on filedocumented in this encounter Care Teams Bolt Sawyer Relationship Specialty Start Date End Date None None PCP - General 01/12/22 11/02/22 documented as of this encounter
--- OUTSIDE RECORDS SUMMARY | 2024-01-05 02:44 | XMS_ITS | Encounter Summary ---
Author Organization [facility] [place] [address] Care Team Providers Care Pediatric Critical Care Nurse Name Role Phone Nataliya Messina MD Primary Care Provider [phone] Encounter Details Date Type Department Care Team (Late st Contact Info) Description 03/16/2019 Ancillary Procedure [place] [phone] Heber Phillips MD [facility] HEMATOLOGY/[place] [address] Social History Tobacco Use Types Packs/Day Years [...] AM EDT Appointment Hematology [place] [phone] 01/21/2024 10:[address] [place] [phone] Heber Phillips MD [facility] HEMATOLOGY/ONCOLOGY [place], [place] [address] 03/28/2024 10:00 AM EDT Office Visit Hematology/Oncology at [address] [phone] Heber Phillips MD [facility] DR HEMATOLOGY/[place] [address] Isabella Baker APRN [facility] [place] [address] documented as of this encounter Procedures Procedure Name Priority Date/Time Associated Diagnosis Comments FILM LIBRARY STORAGE ONLY MR HEAD Routine 03/16/2019 12:00 AM EDT documented in this encounter Results * Film Library- Storage Only MR Head (03/16/2019 12:00 AM EDT) Narrative [facility] - 03/20/2019 2:05 PM EDT This exam is auto-finalizing. It's purpose is for storage only. Heber Phillips MD IMG FILM LIBRARY ORD ERABLES [place], [place] documented in this encounter Visit Diagnoses Not on filedocumented in this encounter Care Teams Pediatric Critical Care Nurse Relationship Specialty Start Date End Date Nataliya Messina MD [address] [place] [address] PCP - General 10/02/11 01/11/22 documented as of this encounter
--- OUTSIDE RECORDS SUMMARY | 2024-01-05 02:44 | XMS_ITS | Encounter Summary ---
Author Organization [facility] [place] [address] Care Team Providers Care Clinical Tech Name Role Phone Nataliya Messina MD Primary Care Provider [phone] Reason for Visit * Reason Onset Date Comments Other 07/17/2019 reviewed medicat ion changes to nebulized rx's Encounter Details Date Type Department Care Team (Late st Contact Info) Description 07/17/2019 Telephone [place] [phone] Wen Ashford, RN Other (reviewed medication changes to nebulized rx's) Social History Tobacco Use Types Packs/Day Years [...] Encounter - Wen Ashford RN - 07/17/2019 3:13 PM EST Called and reviewed change in medications with Hieu. Explained insurance denial of Trelegy and plan to change inhalers to nebulized medications. Budesonide and duoneb sent to [facility] and nebulizer sent to [facility]. Explained what duonebs are and instructed to take 4 times daily. Hieu expressed understanding and denies further questions at this time. Wen Ashford, RN, BSN Pulmonary Department [email or web address] Phone: [phone] Pager: [phone] documented in this encounter Plan of Treatment Upcoming Encounters Date Type Department Care Team (Late st Contact Info) Description 01/10/2024 7:45 AM EDT Appointment Hematology [place] [address] 01/21/2024 10:[address] [place] [address] Heber Phillips MD [facility] DR HEMATOLOGY/[place] [address] 03/28/2024 10:00 AM EDT Office Visit Hematology/Oncology at [address] [address] Heber Phillips MD [facility] DR HEMATOLOGY/[place] [address] Isabella Baker APRN [facility] [place] [address] documented as of this encounter Visit Diagnoses Not on filedocumented in this encounter Care Teams Clinical Tech Relationship Specialty Start Date End Date Nataliya Messina MD [address] [place] [address] [address] [place] [address] PCP - General 10/02/11 01/11/22 documented as of this encounter
--- OUTSIDE RECORDS SUMMARY | 2024-01-05 02:44 | XMS_ITS | Encounter Summary ---
Author Organization [facility] [place] [address] Care Team Providers Care Creel Clerk Name Role Phone Nataliya Messina MD Primary Care Provider [phone] Reason for Referral * Diagnostic Test (Routine) - Closed Specialty Diagnoses / Procedures Referred By Contac t Referred To Contact Radiology Diagnoses Small cell lung cancer, right upper lobe Procedures NM PET CT Skull Base to Mid-thigh Heber Phillips MD [facility] DR HEMATOLOGY/[place] [address] [place] [address] Referral ID Status Reason Start Date Expiration Date V isits Requested Visits Authorized [id number] Closed Specialty Service Requested 03/07/2019 03/06/2020 1 1 Reason for Visit * Diagnostic Test (Routine) - Closed Specialty Diagnoses / Procedures Referred By Contac t Referred To Contact Radiology Diagnoses Small cell lung cancer, right upper lobe Procedures NM PET CT Skull Base to Mid-thigh Heber Phillips MD [facility] HEMATOLOGY/[place] [address] [place] [address] Referral ID Status Reason Start Date Expiration Date V isits Requested Visits Authorized [id number] Closed Specialty Service Requested 03/07/2019 03/06/2020 1 1 Encounter Details Date Type Department Care Team (Latest Contact Info) Description 05/25/2019 9:48 AM EST Hospital Encounter Nuclear Medicine at [facility] [address] Heber Phillips MD [facility] DR HEMATOLOGY/[place] [address] Small cell lung cancer, right upper lobe [...] AM EDT Appointment Hematology [place] [address] 01/21/2024 10:[address] [place] [address] Heber Phillips MD [facility] HEMATOLOGY/[place] [address] 03/28/2024 10:00 AM EDT Office Visit Hematology/Oncology at [address] [phone] Heber Phillips MD [facility] HEMATOLOGY/[place] [address] Isabella Baker APRN [facility] [place] [address] documented as of this encounter Procedures Procedure [...] number below. ? Electronically signed by: Tino Gallardo, [facility] ([phone]), at 05/26/2019 10:35 AM Narrative 05/26/2019 10:35 AM EST EXAMINATION: NM PET CT SKULL BASE TO MID-THIGH ? CLINICAL HISTORY: Restaging of small cell lung cancer TECHNIQUE: Following IV injection of 19-pcnfzd-2-deoxyglucose (FDG) a standard uptake of approximately 60 [...] lung cancer TECHNIQUE: Following IV injection of 94-pueocx-8-deoxyglucose (FDG) astandard uptake of approximately 60 minutes, [...] Dose Rate Site fludeoxyglucose (F-18) FDG injection 12.1 mCi 12.1 mCi, Intravenous, ONCE PRN, 1 dose, Starting on Federica 05/25/19 at 1008, Until [employer]erica 05/25/19 at 1008, Per Protocol, Routine Given 05/25/2019 10:08 AM EST 12.1 mCi documented in this encounter Care Teams Creel Clerk Relationship Specialty Start Date End Date Nataliya Messina MD [address] [place] [address] PCP - General 10/02/11 01/11/22 documented as of this encounter
--- OUTSIDE RECORDS SUMMARY | 2024-01-05 02:44 | XMS_ITS | Encounter Summary ---
Author Organization [facility] [address] Care Team Providers Care Clean Rice Broker Name Role Phone Nataliya Messina MD Primary Care Provider Reason for Visit * Diagnostic Test (Routine) - Closed Specialty Diagnoses / Procedures Referred By Contac t Referred To Contact Radiology Diagnoses Small cell lung cancer, right upper lobe Procedures NM PET CT Skull Base to Mid-thigh Bettie Serrano APRN [address] [place] [address] [place] [address] [place] [address] Referral ID Status Reason Start Date Expiration Date V isits Requested Visits Authorized [id number] Closed Specialty Service Requested 02/07/2019 02/07/2020 1 1 Encounter Details Date Type Department Care Team (Latest Contact Info) Description 02/27/2019 8:20 AM EDT Hospital Encounter [place] [address] Bettie Serrano [address] [place], [place] [phone] Discharge Disposition: Home Social History Tobacco Use [...] AM EDT Appointment Hematology [place] [address] 01/21/2024 10:[address] [place] [address] Heber Phillips MD [facility] DR HEMATOLOGY/[place] [address] 03/28/2024 10:00 AM EDT Office Visit Hematology/Oncology at [address] [phone] Heber Phillips MD [facility] HEMATOLOGY/[place] [address] Isabella Baker APRN [facility] [place] [address] documented as of this encounter Procedures Procedure [...] to therapy. TECHNIQUE: Following IV injection of 57-pqhbko-9-deoxyglucose (FDG) a standard uptake of approximately 60 [...] to therapy. TECHNIQUE: Following IV injection of 42-atbpwc-1-deoxyglucose (FDG) astandard uptake of approximately 60 minutes, [...] please contact the number below. Bettie Serrano CELL PLASTERER IMG PET ORDERAB LES documented in this encounter Visit Diagnoses Not on filedocumented in this encounter Care Teams Clean Rice Broker Relationship Specialty Start Date End Date Nataliya Messina MD [address] [place] [address] PCP - General 10/02/11 01/11/22 documented as of this encounter
--- OUTSIDE RECORDS SUMMARY | 2024-01-05 02:44 | XMS_ITS | Encounter Summary ---
Author Organization [facility] [place] [address] Care Team Providers Care Creative/Art Director Name Role Phone Nataliya Messina MD Primary Care Provider [phone] Encounter Details Date Type Department Care Team (Late Contact Info) Description 07/07/2019 Orders [place] [phone] Jessica Butterfield Social History Tobacco Use Types [...] AM EDT Appointment Hematology [place] [phone] 01/21/2024 10:[address] [place] [phone] Heber Phillips MD [facility] HEMATOLOGY/[place] [address] 03/28/2024 10:00 AM EDT Office Visit Hematology/Oncology at [address] [address] Heber Phillips MD [facility] DR HEMATOLOGY/[place] [address] Isabella Baker APRN [facility] [place] [address] documented as of this encounter Visit Diagnoses Not on filedocumented in this encounter Care Teams Creative/Art Director Relationship Specialty Start Date End Date Nataliya Messina MD [address] [place], [place] [address] PCP - General 10/02/11 01/11/22 documented as of this encounter
--- OUTSIDE RECORDS SUMMARY | 2024-01-05 02:44 | XMS_ITS | Encounter Summary ---
Author Organization [facility] Address [facility] [place] [address] Care Team Providers Care Clinic Physician Director Name Role Phone Nataliya Messina MD Primary Care Provider [phone] Encounter Details Date Type Department Care Team (Late st Contact Info) Description 07/07/2019 Orders [place] [phone] Jem Laureano MD [facility] [place] [address] Mass of right lung Social History Tobacco Use Types Packs/Day Years [...] AM EDT Appointment Hematology [place] [phone] 01/21/2024 10:[address] [place] [phone] Heber Phillips MD [facility] DR HEMATOLOGY/ONCOLOGY [place], [place] [address] 03/28/2024 10:00 AM EDT Office Visit Hematology/Oncology at [address] [phone] Heber Phillips MD [facility] DR HEMATOLOGY/[place] [address] Isabella Baker APRN [facility] [place] [address] documented as of this encounter Results * Pulmonary Function Testing [...] Visit Diagnoses Diagnosis Mass of right lung Mass of right lung documented in this encounter Care Teams Clinic Physician Director Relationship Specialty Start Date End Date Nataliya Messina MD [address] [place] [address] PCP - General 10/02/11 01/11/22 documented as of this encounter
--- OUTSIDE RECORDS SUMMARY | 2024-01-05 02:45 | XMS_ITS | Encounter Summary ---
Author Organization [facility] [place] [address] Care Team Providers Care Animal Sticker Name Role Phone Nataliya Messina MD Primary Care Provider [phone] Reason for Visit * Reason Onset Date Comments Labs Only 04/12/2018 Encounter Details Date Type Department Care Team (Late st Contact Info) Description 04/12/2018 Telephone Hematology/Oncology at [address] [phone] Carlo Hassan, RN Labs Only Social History Tobacco Use Types Packs/Day Years [...] Miscellaneous Notes * Telephone Encounter - Carlo Hassan RN - 04/12/2018 4:58 PM EDT Called Pt to go over lab results from today with him. He saw Thu Saldana APRN but did not have labs prior so he went after visit to [facility] for CBC and CMP. Pt has critical WBC of 1.18 and ANC of 0.38; Thu Saldana APRN made aware. Will repeat CBC in 1 week to ensure counts are recovering as he is currently 2 weeks out from last chemotherapy. Neutropenic precautions teaching performed and included; Frequent hand washing with soap and water Do not share personal items with anyone Avoid fresh bruno, live plants, or standing water Keep cooked and raw foods separate Cook food thoroughly and refrigerate food immediately Have someone else clean up over pet Call healthcare provider if fever 100.4 or greater, fever, chills, sore throat, new pain or swelling, dysuria, diarrhea, increased fatigue or confusion. Pt is aware if he develops a fever he will need to go to local ED for evaluation. Will check for CBC at [facility] 04/19/18 and review with Thu Saldana APRN. Pt is in agreement with plan. documented in this encounter Plan of Treatment Upcoming Encounters Date Type Department Care Team (Late st Contact Info) Description 01/10/2024 7:45 AM EDT Appointment Hematology [place] [address] 01/21/2024 10:[address] [place] [address] Heber Phillips MD [facility] DR HEMATOLOGY[place] [address] 03/28/2024 10:00 AM EDT Office Visit Hematology/Oncology at [address] [phone] [address] [facility] DR HEMATOLOGY/[place] [address] Isabella Baker APRN [facility] [place] [address] documented as of this encounter Visit Diagnoses Not on filedocumented in this encounter Care Teams Animal Sticker Relationship Specialty Start Date End Date Nataliya Messina MD [address] [place] [address] [address] [place], [place] [address] PCP - General 10/02/11 01/11/22 documented as of this encounter
--- OUTSIDE RECORDS SUMMARY | 2024-01-05 02:45 | XMS_ITS | Encounter Summary ---
Author Organization [facility] [place] [address] Care Team Providers Care Business Analytics Specialist Name Role Phone Nataliya Messina MD Primary Care Provider [phone] Encounter Details Date Type Department Care Team (Late st Contact Info) Description 04/07/2018 10:00 AM EDT Office Visit Radiation Oncology at [address] [phone] Mikhail Cadena MD [address] [place] [address] [place] [address] Small cell lung cancer, right upper lobe [...] Sign Reading Time Taken Comments Blood Pressure 112/60 04/07/2018 10:00 AM EDT Pulse 80 04/07/2018 10:00 AM EDT Temperature 36.4 ??C (97.5 ??F) 04/07/2018 1 0:00 AM EDT Respiratory Rate 20 04/07/2018 10:0 0 AM EDT Oxygen Saturation 100% 04/07/2018 10: 00 AM EDT Inhaled Oxygen Concentration - - Weight 73.4 kg (161 lb 12.8 oz) 018 10:00 AM EDT Height - - Body Mass Index 26 04/01/2018 9:55 AM EDT documented in this encounter Progress Notes * Mikhail Cadena MD - 04/07/2018 10:00 AM EDT Images from the original note were not included. RADIATION ONCOLOGY - End of Treatment Visit Note 04/07/18 Mikhail Cadena MD, MS Radiation Oncology [facility] [phone] (paging control panel operator) Pager #[phone] PATIENT IDENTIFICATION Name Hieu Tillman Date of 1955 Diagnosis (Cancer Staging Small cell lung cancer, right upper lobe Staging form: Lung, AJCC 8th Edition - Clinical: Stage IIIA (cT3, cN1, cM0) - Signed by Mikhail Cadena MD on 01/13/2018 ) CONCURRENT THERAPY: Carboplatin / Etoposide (from Dr. Phillips) INTENT OF THERAPY: Definitive (Curative) RADIATION TREATMENT DETAILS: Treatment Site RUL Prescribed Dose 60 Gy in 30 fractions End Date 03/29/18 Tim[place] Rider Lantigua from Current Plan (minimum 60 Gy isodose volume shown): INTERVAL HISTORY Subjective: General - Overall feels fair today. Cycle 4 of 4 was completed last week. Resp - No new SOB or cough. Esophagitis improving, rated pain 3/10. Occasionally takes oxycodone, appetite is good. Pain: Pain score today is 0/10, up to 3/10 when he eats/drinks. Nutrition: Weight at start of therapy was 169 lbs --> 162 lbs at end of therapy --> 161 lbs this week. Eating softs / liquid. MEDS Medications 04/07/18 1010 Medication Sig Taking? oxyCODONE (ROXICODONE) 5 mg/5 mL Solution Take 5 mLs by mouth every 4 hours as needed for Pain. Yes lidocaine (XYLOCAINE) 2 % Solution Take 5 mLs by mouth as needed for Pain (Mix 1:1:1 with benadryl & maalox prn throat pain no more than 8 doses a day). Yes citalopram (CELEXA) 20 mg Tablet Take 1 tablet by mouth daily. If no effect after 7d can increase to 40mg Yes magnesium chloride (MAG-DELAY ORAL) Take 60 mg by mouth. Yes tiotropium (SPIRIVA WITH HANDIHALER) 18 mcg Capsule, w/Inhalation Device Inhale 18 mcg into the lungs 2 times daily. Yes lisinopril (PRINIVIL;ZESTRIL) 20 mg Tablet Take 1 tablet by mouth daily. Yes meTOPROLOL tartrate (LOPRESSOR) 25 mg Tablet Take 1 tablet by mouth 2 times daily. Yes fluticasone-vilanterol (BREO ELLIPTA) 100-25 mcg/dose Disk with Device Inhale 1 puff into the lungsdaily. Yes atorvastatin (LIPITOR) 80 mg tablet Take 1 tablet by mouth daily. Yes clopidogrel (PLAVIX) 75 mg tablet Take 1 tablet by mouth daily. Yes pantoprazole (PROTONIX) 40 mg tablet Take 1 tablet by mouth daily. Yes hydrochlorothiazide (HYDRODIURIL) 25 mg tablet Take 25 mg by mouth daily. Yes FIBER CHOICE ORAL Take 1 tablet by mouth daily. Yes aspirin 81 mg EC tablet Take 81 mg by mouth daily. Yes albuterol-ipratropium (COMBIVENT) 18-103 mcg/Actuation inhaler 2 Puff(s), Inh, Twice daily Yes loperamide (IMODIUM) 2 mg Capsule Take 2 mg by mouth 4 times daily as needed for Diarrhea. prochlorperazine (COMPAZINE) 10 mg Tablet Take 1 tablet by mouth every 6 hours as needed for Nausea. Patient not taking: Reported on 03/29/2018 nitroGLYcerin (NITROSTAT) 0.[address] 1 tablet under the tongue every 5 minutes as needed. Patient not taking: Reported on 03/29/2018 IMAGING / LABS: MRI 04/06/18 - no evidence of brain metastases EXAM: BP 112/60 Pulse 80 Temp 36.4 ??C (97.5 ??F) Resp 20 Wt 73.4 kg (161 lb 12.8 oz) SpO2 100% BMI 26.00 kg/m?? Constitutional: he appears well-developed and well-nourished. No distress. Performance Status: KPS Score ECOG Grade Definition 90-100 0 Fully active, able to carry on all pre-disease performance without restriction X 70-80 1 Restricted in physically strenuous activity but ambulatory and able to carry out work of a light or sedentary nature, e.g., light house work, office work 50-60 2 Ambulatory and capable of all selfcare but unable to carry out any work activities; up and about more than 50% of waking hours 30-40 3 Capable of only limited selfcare; confined to bed or chair more than 50% of waking hours 10-20 4 Completely disabled; cannot carry on any selfcare; totally confined to bed or chair IMPRESSION/PLAN Impression: Recovering from RT as anticipated, 1.5 weeks since completing XRT. Plan: Reviewed risks and benefits of PCI today. He will take some time to consider his options. If he elects to proceed with PCI, I anticipate this to start 4-6 weeks from now. We will see him back in a month to review. documented in this encounter Plan of Treatment Upcoming Encounters Date Type Department Care Team (Late st Contact Info) Description 01/10/2024 7:45 AM EDT Appointment Hematology [place] [address] 01/21/2024 10:[address] [place] [address] Heber Phillips MD [facility] DR HEMATOLOGY/[place] [address] 03/28/2024 10:00 AM EDT Office Visit Hematology/Oncology at [address] [address] Heber Phillips MD [facility] DR HEMATOLOGY/[place] [address] Isabella Baker APRN [facility] [place] [address] documented as of this encounter Procedures Procedure Name Priority Date/Time Associated Diagnosis Comments MRI/MRA SCAN 04/06/2018 12:00 AM EDT MRI/MRA SCAN 04/06/2018 12:00 AM EDT documented in this encounter Results * SCAN DOC: MRI/MRA (04/06/2018 12:00 AM EDT) Anatomical Region Laterality Modality Other Narrative 04/06/2018 12:00 AM EDT Ordered by an unspecified provider. Scanning Provider MEDIA MGR SCAN EXT O RDR/RSLT * SCAN DOC: MRI/MRA (04/06/2018 12:00 AM EDT) Anatomical Region Laterality Modality Other Narrative 04/06/2018 12:00 AM EDT Ordered by an unspecified provider. Scanning Provider MEDIA MGR SCAN EXT O RDR/RSLT documented in this encounter Visit Diagnoses Diagnosis Small cell lung cancer, right upper lobe documented in this encounter Care Teams Business Analytics Specialist Relationship Specialty Start Date End Date Nataliya Messina MD [address] [place] [address] PCP - General 10/02/11 01/11/22 documented as of this encounter
--- OUTSIDE RECORDS SUMMARY | 2024-01-05 02:45 | XMS_ITS | Encounter Summary ---
Author Organization [facility] Address [facility] [place] [address] Care Team Providers Care Pickle Solution Maker Name Role Phone Nataliya Messina MD Primary Care Provider +1 [phone] Encounter Details Date Type Department Care Team (Late st Contact Info) Description 04/12/2018 2:00 PM EDT Office Visit Hematology/Oncology at [address] [phone] Thu Saldana APRN [facility] [place] [address] Small cell lung cancer Social History Tobacco [...] Sign Reading Time Taken Comments Blood Pressure 123/59 04/12/2018 2:09 PM EDT Pulse 90 04/12/2018 2:09 PM EDT Temperature 36.4 ??C (97.5 ??F) 04/12/2018 2:09 PM ED T Respiratory Rate 16 04/12/2018 2:09 PM EDT Oxygen Saturation 99% 04/12/2018 2:09 PM EDT Inhaled Oxygen Concentration - - Weight 73.5 kg (162 lb) 04/12/2018 2:09 PM EDT Height 168 cm (5' 6.14) 04/12/2018 2:09 PM EDT copied Body Mass Index 26.04 04/12/2018 2:09 PM EDT documented in this encounter Patient Instructions * Patient Instructions* Thu Saldana APRN - 04/12/2018 2:00 PM EDT He will return in 4 weeks with labs prior and ct scan of the chest to see braden. documented in this encounter Progress Notes * Thu Saldana APRN - 04/12/2018 2:00 PM EDT Diagnosis: High-grade neuroendocrine cancer of right lung, limited stage Subjective: I feel my breathing is getting better HPI:Hieu Tillman is 62 y.o. M referred by Dr. Ortiz for [...] follow-up appointment on small cell lung cancer after his fourth cycle of chemotherapy with carboplatin and etoposide. He tolerates concurrent chemoradiation pretty well but he is fatigued today. He noticed improvement in the breathing. Denies any nausea, vomiting or pain. No fever or chills. He completed his radiation treatments about 2 weeks ago. PMH: No interval changes since last visit [...] infarction ME about 6 years ago @ [facility]-has stents ??? 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 Marital status: Spouse name: Not on file ??? Number of children: 5 ??? Years of education: Not on file ??? Highest education level: Not on file Social Needs ??? Financial resource strain: Not on file ??? Food insecurity - worry: Not on file ??? Food insecurity - inability: Not on file ??? Transportation needs - medical: Not on file ??? Transportation needs - non-medical: Not on file Occupational History ??? 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 Smoking status: Former Smoker Packs/day: 2.00 Years: 47.00 Pack years: 94.00 Types: Cigarettes Last attempt to quit: 09/11/2013 Years since quittin.5 ??? Smokeless tobacco: Never Used Substance and Sexual Activity ??? Alcohol use: No Comment: Sober 25 years the summer of 2016 ??? Drug use: No ??? Sexual activity: Not Currently Comment: deferred Other Topics Concern ??? Not on file Social History Narrative Lives with his in [place], [place]. Retired from [employer] where he did repairs for 40 years. [...] premedication. History of anaphylaxis as well. Medications: Reviewed He has completed the four cycles of concurrent carbo/VP16 . His weight is stable and he states he is eating well. He states that he is fatigued and short of breath when he exerts himself. He needs torest often while doing things but he is still doing them. Review of Systems: Constitutional: Negative for fever, [...] Neurological: Negative. Hematological: Negative for adenopathy. BP 123/59 (Patient Position: Sitting) Pulse 90 Temp 36.4 ??C (97.5 ??F) (Oral) Resp 16 Ht 168 cm (5' 6.14) Comment: copied Wt 73.5 kg (162 lb) SpO2 99% BMI 26.04 kg/m?? Wt Readings from Last 3 Encounters: 04/12/18 73.5 kg (162 lb) 04/07/18 73.4 kg (161 lb 12.8 oz) 04/01/18 75.2 kg (165 lb 12.8 oz) Physical Exam Constitutional: He is oriented to person, place, and time. He appears well- developed and well-nourished. HENT: Mouth/Throat: Oropharynx is clear and moist. No oropharyngeal exudate. Eyes: Conjunctivae are normal. Pupils are equal, round, and reactive to light. Neck: Normal range of motion. Neck supple. Cardiovascular: Normal rate and regular rhythm. Pulmonary/Chest: Effort normal. He has decreased breath sounds (throughout). Abdominal: Soft. He exhibits no distension and [...] and thought content normal. His affect is normal Labs: 04/12/18 sodium 136, potassium 4.0, BUN 18, creatinine 1.15, calcium 8.8 TB 0.3, AST 23, ALT 32, alkaline phosphatase 111, total protein 7.3, albumin 3.6, WBC 1.18, hemoglobin 8.2, platelet count 130, ANC 0.38. Imagin12/31/2017 PET IMPRESSION 1. FDG avid right upper lobe mass, most consistent with primary lung malignancy. 2. Adjacent FDG avid 6 mm pulmonary nodule suspicious for a satellite malignancy. 3. No regional renato or distant sites of metastasis 12/30/17 brain MRI: IMPRESSION: No evidence of metastatic disease. ONCN ONCOLOGY (AMB) 01/26/2018 Day, Cycle Day 1, Cycle 1 CARBOplatin (PARAPLATIN) IV 524 mg etoposide (VEPESID) IV 100 mg/m2/dose = 185 mg methylPREDNISolone acetate (DEPO-Medrol) Epid ONCN ONCOLOGY (AMB) 01/27/2018 Day, Cycle Day 2, Cycle 1 CARBOplatin (PARAPLATIN) IV etoposide (VEPESID) IV 100 mg/m2/dose = 185 mg methylPREDNISolone acetate (DEPO-Medrol) Epid ONCN ONCOLOGY (AMB) 01/28/2018 Day, Cycle Day 3, Cycle 1 CARBOplatin (PARAPLATIN) IV etoposide (VEPESID) IV 100 mg/m2/dose = 185 mg methylPREDNISolone acetate (DEPO-Medrol) Epid Assessment and Plan: Diagnosis: High-grade neuroendocrine cancer of right lung (small cell), limited stage Treatment: 01/26/18 started carboplatin AUC 5 and etoposide 100 mg/m?? days 1-3 02/16/18 started XRT Mr. Tillman has a new diagnosis of high-grade neuroendocrine carcinoma of right upper [...] 100 mg dd 1-3 . Mr. Tillman tolerated four cycles of carboplatin and etoposide well. He feels improvement in his breathing. Denies any pain, fever or chills. He is neutropenic today. We will ask him to repeat his labs in one week. #Depression: feels better on Celexa Plan: 1. He will repeat his labs locally in one week. 2. He will return in one month with ct scan for re evaluation and labs prior to see Dr. Phillips. documented in this encounter Plan of Treatment Upcoming Encounters Date Type Department Care Team (Late st Contact Info) Description 01/10/2024 7:45 AM EDT Appointment Hematology [place] [address] 01/21/2024 10:[address] [place] [address] Heber Phillips MD [facility] DR HEMATOLOGY/[place] [address] 03/28/2024 10:00 AM EDT Office Visit Hematology/Oncology at [address] [phone] Heber Phillips MD [facility] DR HEMATOLOGY/[place] [address] Isabella Baker APRN [facility] [place] [address] documented as of this encounter Visit Diagnoses Diagnosis Small cell lung cancer Malignant neoplasm of bronchus and lung, unspecified site documented in this encounter Care Teams Pickle Solution Maker Relationship Specialty Start Date End Date Nataliya Messina MD [address] [place], [place] [address] [place] [address] PCP - General 10/02/11 01/11/22 documented as of this encounter
--- OUTSIDE RECORDS SUMMARY | 2024-01-05 02:45 | XMS_ITS | Encounter Summary ---
[place] [address] Care Team Providers Care Office Machine Installer Name Role Phone Nataliya Messina MD Primary Care Provider [phone] Encounter Details Date Type Department Care Team (Latest Contact Info) Description 03/21/2018 Unscheduled Encounter Radiation Oncology at [address] [phone] Sheba Alvarez RN Pain with swallowing; Small cell lung cancer, right upper lobe; Severe swallowing dysfunction Social History Tobacco Use Types Packs/Day Years [...] Sign Reading Time Taken Comments Blood Pressure 84/50 03/21/2018 10:40 AM EDT Pulse 82 03/21/2018 10:40 AM EDT Temperature 36.7 ??C (98 ??F) 03/21/2018 10:39 AM EDT Respiratory Rate 20 03/21/2018 10:39 AM EDT Oxygen Saturation 98% 03/21/2018 10:39 AM EDT Inhaled Oxygen Concentration - - Weight - - Height - - Body Mass Index - - documented in this encounter Progress Notes * Sheba Alvarez RN - 03/21/2018 10:42 AM EDT Radiation Oncology Nurse Note [place], [place] Radiation Oncology Nursing on Treatment Note Patient has 24 FXs, 4800 cGy To the chest For treatment of lung ca. Side effects that patient is experiencing: He c/o severe pain with swallowing. He can only drink a small cap full of water at a time he drank about 2, 12 oz bottles of watery yesterday. He grades pain around 5/10. He also get intermittent right chest pain that he calls gas pains that are acute and relieved by gas-x about every 4 hours over the last 2 days. He's taking carafate 3-4 times a day and the BMX about twice a day and doesn't feel it helps much. Yesterday all he ate was soup broth and some vanilla cookies that dissolved well in his mouth. Assessment: Vitals: 03/21/18 1039 03/21/18 1040 BP: 92/51 (!) 84/50 Patient Position: Sitting Standing Pulse: 82 82 Resp: 20 Temp: 36.7 ??C (98 ??F) TempSrc: Oral SpO2: 98% See flow sheet or click on expand all in this progress note. Anticipatory guidance/ interventions: Dr Cadena notified. He ordered IV hydration today and liquid oxycodone 5 mg Q 4 ours PRN, supply 100 This was instructed to patient along with reminder that he should eat soft bland diet and take BMX Up to 8 times a day I also instructed patient that he is to take oxycodone with food, this can cause sedation so be careful and avoid driving if possible and that it can cause constipation and to take measures in avoiding this like stool softeners daily or laxatives if needed. Plan: IV hydration today. He will stop by pharmacy afterwards to get new prescription for oxycodone. Weekly on-treatment visit every w/ Dr Cadena and daily visits prn with nursing documented in this encounter Miscellaneous Notes * Addendum Note - Mikhail Cadena MD - 03/22/2018 7:38 AM EDTAddended by: MIKHAIL CADENA on: 03/22/2018 07:38 AM Modules accepted: Orders * Addendum Note - Sheba Alvarez, RN - 03/21/2018 5:08 PM EDTAddended by: SHEBA ALVAREZ on: 03/21/2018 05:08 PM Modules accepted: Orders documented in this encounter Plan of Treatment Upcoming Encounters Date Type Department Care Team (Late st Contact Info) Description 01/10/2024 7:45 AM EDT Appointment Hematology [place] [address] 01/21/2024 10:[address] [place] [address] Heber Phillips MD [facility] DR HEMATOLOGY/[place] [address] 03/28/2024 10:00 AM EDT Office Visit Hematology/Oncology at [address] [phone] Heber Phillips MD [facility] DR HEMATOLOGY/[place] [address] Isabella Baker APRN [facility] [place] [address] documented as of this encounter Visit Diagnoses Diagnosis Pain with swallowing Dysphagia, unspecified Small cell lung cancer, right upper lobe Severe swallowing dysfunction Dysphagia, unspecified documented in this encounter Care Teams Office Machine Installer Relationship Specialty Start Date End Date Nataliya Messina MD [address] [place] [address] [address] [place] [address] PCP - General 10/02/11 01/11/22 documented as of this encounter
--- OUTSIDE RECORDS SUMMARY | 2024-01-05 02:45 | XMS_ITS | Encounter Summary ---
Author Organization [facility] [place] [address] Care Team Providers Care Clerical Adjudicator Name Role Phone Nataliya Messina MD Primary Care Provider [phone] Reason for Visit * Reason Comments Other Hydration Encounter Details Date Type Department Care Team (Late st Contact Info) Description 03/21/2018 11:00 AM EDT Infusion Hematology Oncology at [address] [phone] Small cell lung cancer, right upper lobe [...] as of this encounter Progress Notes * Марина Fry RN - 03/21/2018 11:00 AM EDT INFUSION THERAPY ADMINISTRATION NOTES DIAGNOSIS: Esophageal cancer REASON FOR VISIT: Hydration SUBJECTIVE Hieu states that he has not been able to drink very much over this past weekend.. OBJECTIVE IV ACCESS: Mediport REACTIONS (DESCRIPTION, TIME, INTERVENTION AND EFFECTIVENESS) none ASSESSMENT Hieu was awake, alert and tolerated treatment well. Mediport flushed with 20 cc NS & 500 unitsof Heparin prior to de-access. PLAN Return to clinic per routine. documented in this encounter Plan of Treatment Upcoming Encounters Date Type Department Care Team (Late st Contact Info) Description 01/10/2024 7:45 AM EDT Appointment Hematology [place] [address] 01/21/2024 10:[address] [place] [address] Heber Phillips MD [facility] DR HEMATOLOGY/[place] [address] 03/28/2024 10:00 AM EDT Office Visit Hematology/Oncology at [address] [phone] Heber Phillips MD [facility] DR HEMATOLOGY/[place] [address] Isabella Baker APRN [facility] [place] [address] documented as of this encounter Visit Diagnoses Diagnosis Small cell lung cancer, right upper lobe documented in this encounter Administered Medications Inactive Administered Medications - up to 3 most recent administrations Medication Order MAR Action Action Date Dose Rate Site sodium chloride 0.9% infusion 1,000 mL, Intravenous, ONCE, 1 dose, On Wed03/21/18 at 1400 New Bag 03/21/2018 11:00 AM EDT 1,000 mLs documented in this encounter Care Teams Clerical Adjudicator Relationship Specialty Start Date End Date Nataliya Messina MD [address] [place] [address] PCP - General 10/02/11 01/11/22 documented as of this encounter
--- OUTSIDE RECORDS SUMMARY | 2024-01-05 02:45 | XMS_ITS | Encounter Summary ---
Author Organization [facility] [place] [address] Care Team Providers Care Bakery Associate Name Role Phone Nataliya Messina MD Primary Care Provider [phone] Encounter Details Date Type Department Care Team (Late st Contact Info) Description 05/05/2018 1:00 PM EST Office Visit Radiation Oncology at [address] [phone] Mikhail Cadena MD [address] [place] [address] [place] [address] Small cell lung cancer, right [...] Sign Reading Time Taken Comments Blood Pressure 127/64 05/05/2018 1:00 PM EST Pulse 82 05/05/2018 1:00 PM EST Temperature 36.5 ??C (97.7 ??F) 05/05/2018 1:00 PM ES T Respiratory Rate 18 05/05/2018 1:00 PM EST Oxygen Saturation 98% 05/05/2018 1:00 PM EST Inhaled Oxygen Concentration - - Weight 74.4 kg (164 lb) 05/05/2018 1:00 PM EST b oots on Height - - Body Mass Index 26.36 04/12/2018 2:09 PM EDT documented in this encounter Progress Notes * Mikhail Cadena MD - 05/05/2018 1:00 PM EST Images from the original note were not included. RADIATION ONCOLOGY - End of Treatment Visit Note 05/05/18 Mikhail Cadena MD, MS Radiation Oncology [facility] [phone] (paging control center operator) Pager #[phone] PATIENT IDENTIFICATION Name Hieu Tillman Date of 1955 Diagnosis (Cancer Staging Small cell lung cancer, right upper lobe Staging form: Lung, AJCC 8th Edition - Clinical: Stage IIIA (cT3, cN1, cM0) - Signed by Mikhail Cadena MD on 01/13/2018) CONCURRENT THERAPY: Carboplatin / Etoposide (from Dr. Phillips) INTENT OF THERAPY: Definitive (Curative) RADIATION TREATMENT DETAILS: Treatment Site RUL Prescribed Dose 60 Gy in 30 fractions End Date 03/29/18 Aluminum Boat Inspector Lantigua from Current Plan (minimum 60 Gy isodose volume shown): INTERVAL HISTORY Subjective: General - Overall feels back to baseline today. Completed cycle 4 on 04/01/18. Resp - No new SOB or cough. No esophagitis. Pain: Pain score today is 0/10. Nutrition: Weight at start of therapy was 169 lbs --> 162 lbs at end of therapy --> 164 lbs this week. Eating full diet. MEDS Medications 05/05/18 1316 Medication Sig Taking? citalopram (CELEXA) 20 mg Tablet Take 1 tablet by mouth daily. If no effect after 7d can increase to 40mg Yes magnesium chloride (MAG-DELAY ORAL) Take 60 mg by mouth. Yes tiotropium (SPIRIVA WITH HANDIHALER) 18 mcg Capsule, w/Inhalation Device Inhale 18 mcg into the lungs daily. 2 puffs QD Yes lisinopril (PRINIVIL;ZESTRIL) 20 mg Tablet Take [...] inhaler 2 Puff(s), Inh, Twice daily Yes lidocaine (XYLOCAINE) 2 % Solution Take 5 mLs by mouth as needed for Pain (Mix 1:1:1 with benadryl & maalox prn throat pain no more than 8 doses a day). Patient not taking: Reported on 05/05/2018 loperamide (IMODIUM) 2 mg Capsule Take 2 mg by mouth 4 times daily as needed for Diarrhea. prochlorperazine (COMPAZINE) 10 mg Tablet Take 1 tablet by mouth every 6 hours as needed for Nausea. Patient not taking: Reported on 03/29/2018 nitroGLYcerin (NITROSTAT) 0.[address] 1 tablet under the tongue every 5 minutes as needed. Patient not taking: Reported on 04/12/2018 IMAGING / LABS: MRI 04/06/18 - no evidence of brain metastases EXAM: BP 127/64 Pulse 82 Temp 36.5 ??C (97.7 ??F) Resp 18 Wt 74.4 kg (164 lb) Comment: boots on SpO2 98% BMI 26.36 kg/m?? Constitutional: he appears well-developed and well-nourished. No distress. HEENT: No LAD Resp: CTAB Performance Status: KPS Score ECOG Grade Definition [...] confined to bed or chair IMPRESSION/PLAN Impression: Fully recovered from RT. He has declined PCI. Plan: He has restaging and follow-up scheduled with Dr. Phillips later this month. We will not arrange for any r/o follow-up but he is aware the restaging CT and MRI should be planning for June. documented in this encounter Plan of Treatment Upcoming Encounters Date Type Department Care Team (Late st Contact Info) Description 01/10/2024 7:45 AM EDT Appointment H[place]ology [place] [address] 01/21/2024 10:[address] [place] [place] [address] Heber Phillips MD [facility] DR [place]EMATOLOGY/[place] [address] 03/28/2024 10:00 AM EDT Office Visit Hematology/Oncology at [address] [phone] Heber Phillips MD [facility] DR HEMATOLOGY/[place] [address] Isabella Baker APRN [facility] [place] [place] [address] documented as of this encounter Visit Diagnoses Diagnosis Small cell lung cancer, right upper lobe documented in this encounter Care Teams Bakery Associate Relationship Specialty Start Date End Date Nataliya Messina MD [address] [place] [address] [address] [place] [address] PCP - General 10/02/11 01/11/22 documented as of this encounter
--- OUTSIDE RECORDS SUMMARY | 2024-01-05 02:45 | XMS_ITS | Encounter Summary ---
Author Organization [facility] [place] [address] Care Team Providers Care Clerk Entry Level Name Role Phone Nataliya Messina MD Primary Care Provider [phone] Encounter Details Date Type Department Care Team (Late st Contact Info) Description 03/31/2018 Orders Only Radiation Oncology at [address] [phone] Mikhail Cadena MD [address] [place] [address] DR RADIATION ONCOLOGY [place], [place] [id number] Small cell lung cancer, right upper lobe [...] AM EDT Appointment Hematology [place] [address] 01/21/2024 10:[address] [place] [phone] Heber Phillips MD [facility] DR HEMATOLOGY/[place] [address] 03/28/2024 10:00 AM EDT Office Visit Hematology/Oncology at [address] [phone] Heber Phillips MD [facility] DR HEMATOLOGY/[place] [address] Isabella Baker APRN [facility] [place] [address] documented as of this encounter Visit Diagnoses Diagnosis Small cell lung cancer, right upper lobe documented in this encounter Care Teams Clerk Entry Level Relationship Specialty Start Date End Date Nataliya Messina MD [address] [place] [address] PCP - General 10/02/11 01/11/22 documented as of this encounter
--- OUTSIDE RECORDS SUMMARY | 2024-01-05 02:45 | XMS_ITS | Encounter Summary ---
Author Organization [facility] Address [facility] [place] [address] Care Team Providers Care Thermodynamic Physicist Name Role Phone Nataliya Messina MD Primary Care Provider Reason for Visit * Reason Comments Chemotherapy Cycle 4, Day 1 -- Ca rboplatin/Etoposide * Treatment/Therapy Plan Authorization (Routine) - Closed Specialty Diagnoses / Procedures Referred By Keven lozano Referred To Contact Diagnoses Small cell lung cancer, right upper lobe Heber Phillips MD [facility] HEMATOLOGY/[place] [address] St Hem Onc Office [address] [place] [id number] Referral ID Status Reason Start Date Expiration Date Visits Re quested Visits Authorized [id number] Closed 01/20/2018 01/20/2019 1 1 Encounter Details Date Type Department Care Team (Late st Contact Info) Description 03/30/2018 8:00 AM EDT Infusion Hematology Oncology at [address] [phone] Small cell lung cancer, right [...] Sign Reading Time Taken Comments Blood Pressure 117/61 03/30/2018 8:13 AM EDT Pulse 71 03/30/2018 8:13 AM EDT Temperature 36.3 ??C (97.3 ??F) 03/30/2018 8:13 AM ED T Respiratory Rate 16 03/30/2018 8:13 AM EDT Oxygen Saturation 100% 03/30/2018 8:13 AM EDT Inhaled Oxygen Concentration - - Weight 74.1 kg (163 lb 6.4 oz) 03/30/2018 8:13 A M EDT Height 168 cm (5' 6.14) 03/30/2018 8:13 AM EDT copied Body Mass Index 26.26 03/30/2018 8:13 AM EDT documented in this encounter Progress Notes * Kiley Silva, RN - 03/30/2018 8:00 AM EDT INFUSION THERAPY ADMINISTRATION NOTES DIAGNOSIS: SCLC CYCLE #: Cycle 4, day 1 -- Carboplatin/Etoposide REASON FOR VISIT: To receive chemotherapy. SUBJECTIVE: Hieu offers no complaints. OBJECTIVE: VSS. Weight stable. Seen by provider Wednesday and cleared to receive chemotherapy. LAB DATA: WBC - 4.43, H/H - 9.4/27.6, Plt Ct - 292, ANC - 2.75, Lytes wnl, BUN/CR - 19/1.02 IV ACCESS: Port accessed without difficulty, flushes readily with brisk blood return. Pre administration: Chemotherapy orders independently verified for drug name, route, and dosage per patient's height, weight and BSA by Fredi Silva RN and Arjun Benitez [facility]. REACTIONS (DESCRIPTION, TIME, INTERVENTION AND EFFECTIVENESS) none ASSESSMENT: Hieu was awake, alert and tolerated treatment well. Port flushed with 20 cc of NS and 500 units ofheparin and remains accessed for day 2 tomorrow. PLAN: Return to clinic tomorrow for day 2. documented in this encounter Plan of Treatment Upcoming Encounters Date Type Department Care Team (Late st Contact Info) Description 01/10/2024 7:45 AM EDT Appointment Hematology and Oncology at [place] [phone] 01/21/2024 10:[address] [place] [address] Heber Phillips MD [facility] HEMATOLOGY/[place] [address] 03/28/2024 10:00 AM EDT Office Visit Hematology/Oncology at [address] [phone] Heber Phillips MD [facility] HEMATOLOGY/[place] [address] Isabella Baker APRN [facility] [place] [address] documented as of this encounter Visit Diagnoses Diagnosis Small cell lung cancer, right upper lobe documented in this encounter Administered Medications Inactive Administered Medications - up to 3 most recent administrations Medication Order MAR Action Action Date Dose Rate Site aprepitant (CINVANTI) injection Emul 130 mg 130 mg, Intravenous, Administer over 2 Minutes, ONCE, 1 dose, On Wed03/30/18 at 0845, Alternative administration of IV push over 2 minutes is a recommendation from the leather drier. Administer prior to chemotherapy., Routine Given 03/30/2018 8:43 AM EDT 130 mg CARBOplatin (PARAPLATIN) 516 mg in dextrose 5% 301.6 mL chemo infusion 516 mg (rounded from 515.5 mg, Target AUC = 5), Intravenous, ONCE, 1 dose, On Wed03/30/18 at 0945, Administer over 30 Minutes, Hold Parameters: CARBOplatin, Call provider for serum creatinine less than (mg/dL): <1.0, Call provider for serum creatinine greater than (mg/dL): >1.5, External serum creatinine results used to calculate dose? Yes, Enter serum creatinine value (mg/dL): 1.15, Enter serum creatinine result date: 01/20/2018 New Bag 03/30/2018 11:51 AM EDT 516 mg 603 mL/hr dexamethasone (DECADRON) injection 10 mg 10 mg, Intravenous, ONCE, 1 dose, On Wed03/30/18 at 0845, Administer prior to chemotherapy Given 03/30/2018 8:37 AM EDT 10 mg etoposide (VEPESID) 185 mg in sodium chloride 0.9% Non-PVC 509.25 mL chemo infusion 185 mg (100 mg/m2/dose ? 1.85 m2 Treatment Plan BSA from Recorded weight), Intravenous, ONCE, 1 dose, On Wed03/30/18 at 0945, Administer over 120 Minutes New Bag 03/30/2018 9:34 AM EDT 185 mg 255 mL/hr heparin, porcine 100 unit/mL flush 500 Units 500 Units, Intravenous, ONCE PRN, Starting on Wed03/30/18 at 0820, Until Wed03/30/18 at 1616, Line Care, Refer to Intravenous (IV) Procedure: Accessing Implanted Vascular Access Devices (654) procedure and/or Intravenous (IV) Job Aid: Adult Flushing & Catheter Care (0120) job aid for additional information regarding guidelines and administration., Routine Given 03/30/2018 12:25 PM EDT 500 Units palonosetron (ALOXI) injection 0.25 mg 0.25 mg, Intravenous, ONCE, 1 dose, On Wed03/30/18 at 0845, Administer over 30 seconds., Routine Given 03/30/2018 8:42 AM EDT 0.25 mg sodium chloride 0.9 % flush 5-20 mL 5-20 mL, Intravenous, EVERY 1 MIN PRN, Starting on Wed03/30/18 at 0820, Until Wed03/30/18 at 1616, Line Care, Flush pertains to all indwelling lines. Flush per protocol found in the job aid using the link provided on this medication record. Refer to Intravenous (IV) Job Aid: Adult Flushing & Catheter Care (9340) job aid for additional information regarding guidelines and administration., Routine Given 03/30/2018 12:25 PM EDT 20 mLs documented in this encounter Care Teams Thermodynamic Physicist Relationship Specialty Start Date End Date Nataliya Messina MD [address] [place] [address] [address] [facility] [address] [place] [address] PCP - General 10/02/11 01/11/22 documented as of this encounter
--- OUTSIDE RECORDS SUMMARY | 2024-01-05 02:45 | XMS_ITS | Encounter Summary ---
Author Organization [facility] [place] [address] Care Team Providers Care Tool Crib Lead Name Role Phone Nataliya Messina MD Primary Care Provider [phone] Reason for Visit * Reason Comments Follow-up med check Chest Pain Encounter Details Date Type Department Care Team (Late st Contact Info) Description 03/21/2018 2:20 PM EDT Office Visit Cardiology at [address] [phone] Lauri Winn Jr., MD [address] [place] [phone] ASCVD (arteriosclerotic cardiovascular disease); Non-cardiac chest pain Social History Tobacco Use Types Packs/Day Years [...] Sign Reading Time Taken Comments Blood Pressure 118/60 03/21/2018 2:16 PM EDT Pulse 80 03/21/2018 2:16 PM EDT Temperature - - Respiratory Rate 14 03/21/2018 2:16 PM EDT Oxygen Saturation - - Inhaled Oxygen Concentration - - Weight 74.2 kg (163 lb 8 oz) 03/21/2018 2:16 PM EDT Height 170.2 cm (5' 7) 03/21/2018 2:16 PM EDT Body Mass Index 25.61 03/21/2018 2:16 PM EDT documented in this encounter Progress Notes * Lauri Winn Jr., MD - 03/21/2018 2:20 PM EDT Subjective: Patient ID: Hieu Tillman is a 62 y.o. male. Chief Complaint Patient presents with ??? Follow-up med check ??? Chest Pain HPI He started having chest pain a few weeks ago. It occurs after eating and relieves with burping,moving around, or walking. It is not helped by NTG and does not feel like his previous angina. There was initial concern it could be angina and I started him on isosorbide. It has not changed the pain. He has been having problems swallowing since his chest RT and has not been able to eat or drink much. He is to try liquid MS to help it Review of Systems poor energy, no worsening dyspnea, no fevers, chills, otherwise negative except as above Allergies Allergen Reactions ??? Contrast [Iodine And Iodide Containing Products] Anaphylaxis and Hives He has tolerated IV dye since with premedication. History of anaphylaxis as well. Current Outpatient Prescriptions Medication Sig Dispense Refill ??? oxyCODONE (ROXICODONE) 5 mg/5 mL Solution Take 5 mLs by mouth every 4 hours as needed for Pain.100 mL 0 ??? sucralfate (CARAFATE) 1 gram Tablet Take 1 tablet by mouth 4 times daily as needed (dissolve inwater. PRN for throat pain). 90 tablet 1 ??? lidocaine (XYLOCAINE) 2 % Solution Take 5 mLs by mouth as needed for Pain (Mix 1:1:1 with benadryl & maalox prn throat pain no more than 8 doses a day). 100 mL 1 ??? loperamide (IMODIUM) 2 mg Capsule Take 2 mg by mouth 4 times daily as needed for Diarrhea. ??? isosorbide mononitrate (IMDUR) 30 mg Tablet Sustained Release 24 hr Take 1 tablet by mouth daily. 30 tablet 11 ??? citalopram (CELEXA) 20 mg Tablet Take 1 tablet by mouth daily. If no effect after 7d can increase to 40mg 60 tablet 3 ??? prochlorperazine (COMPAZINE) 10 mg Tablet Take 1 tablet by mouth every 6 hours as needed for Nausea. 30 tablet 3 ??? emollient base (CREAM BASE TOP) Apply topically. Jeans Cream. Apply to area of radiation twice a day but no less than 2 hours before a treatment. ??? magnesium chloride (MAG-DELAY ORAL) Take 60 mg by mouth. ??? tiotropium (SPIRIVA WITH HANDIHALER) 18 mcg Capsule, w/Inhalation Device Inhale 18 mcg into thelungs 2 times daily. ??? lisinopril (PRINIVIL;ZESTRIL) 20 mg Tablet Take [...] minutes as needed. 25 tablet 12 ??? pantoprazole (PROTONIX) 40 mg tablet Take 1 tablet by mouth daily. 30 tablet 2 ??? hydrochlorothiazide (HYDRODIURIL) 25 mg tablet Take 25 mg by mouth daily. ??? FIBER CHOICE ORAL Take 1 tablet by mouth daily. ??? aspirin 81 mg EC tablet Take 81 mg by mouth daily. ??? albuterol-ipratropium (COMBIVENT) 18-103 mcg/Actuation inhaler 2 Puff(s), Inh, Twice daily No current facility-administered medications for this visit. Facility-Administered Medications Ordered in Other Visits Medication Dose Route Frequency Provider Last Rate Last Dose ??? sodium chloride 0.9% infusion 1,000 mL Intravenous Once Mikhail Cadena MD Patient Active Problem List Diagnosis ??? Dehydration [...] back pain radiating to right leg Objective: Physical Exam BP 118/60 Pulse 80 Resp 14 Ht 170.2 cm (5' 7) Wt 74.2 kg (163 lb 8 oz) BMI 25.61 kg/m2 NAD No JVD/HJR Chest clear Cor RR, no murmur Abd benign Ext no edema Assessment and Plan: Non cardiac chest pain- related to radiation side effects on esophagus- stop isosorbide Encouraged to not over exert while undergoing RT- let his body rest Follow up in June as scheduled documented in this encounter Plan of Treatment Upcoming Encounters Date Type Department Care Team (Late st Contact Info) Description 01/10/2024 7:45 AM EDT Appointment Hematology [place] [address] 01/21/2024 10:[address] [place] [phone] Heber Phillips MD [facility] [place]ATOLOG[place] [address] 03/28/2024 10:00 AM EDT Office Visit Hematology/Oncology at [address] [phone] Heber Phillips MD [facility] DR HEMATOLOGY/[place] [address] Isabella Baker APRN [facility] [place] [address] documented as of this encounter Visit Diagnoses Diagnosis ASCVD (arteriosclerotic cardiovascular disease) Unspecified cardiovascular disease Non-cardiac chest pain Other chest pain documented in this encounter Care Teams Tool Crib Lead Relationship Specialty Start Date End Date Nataliya Messina MD [address] [place] [address] PCP - General 10/02/11 01/11/22 documented as of this encounter
--- OUTSIDE RECORDS SUMMARY | 2024-01-05 02:45 | XMS_ITS | Encounter Summary ---
Author Organization [facility] [place] [address] Care Team Providers Care Mathematics Instructor Name Role Phone Nataliya Messina MD Primary Care Provider [phone] Encounter Details Date Type Department Care Team (Late st Contact Info) Description 03/24/2018 10:00 AM EDT Office Visit Radiation Oncology at [address] [phone] Mikhail Cadena MD [address] [place] [address] DR RADIATION ONCOLOGY [place], [place] [id number] Pain with swallowing; Small cell lung cancer, right upper lobe [...] Sign Reading Time Taken Comments Blood Pressure 99/57 03/24/2018 10:11 AM EDT Pulse 80 03/24/2018 10:11 AM EDT Temperature 36.3 ??C (97.3 ??F) 03/24/2018 10:00 AM E DT Respiratory Rate - - Oxygen Saturation 100% 03/24/2018 10:00 AM EDT Inhaled Oxygen Concentration - - Weight 73.6 kg (162 lb 3.2 oz) 03/24/2018 10:00 AM EDT shoes on Height - - Body Mass Index 25.4 03/21/2018 2:16 PM EDT documented in this encounter Progress Notes * Mikhail Cadena MD - 03/24/2018 10:00 AM EDT Images from the original note were not included. RADIATION ONCOLOGY - Weekly On Treatment Visit Note 03/24/18 Mikhail Cadena MD, MS Radiation Oncology [facility] [phone] (paging honing machine operator) Pager #[phone] PATIENT IDENTIFICATION Name Hieu Tillman Date of 1955 Diagnosis (Small cell lung cancer, right upper lobe Staging form: Lung, AJCC 8th Edition - Clinical: Stage IIIA (cT3, cN1, cM0) - Signed by Mikhail Cadena MD on 01/13/2018) CONCURRENT THERAPY: Carboplatin / Etoposide (from Dr. Phillips) INTENT OF THERAPY: Definitive (Curative) RADIATION TREATMENT DETAILS: Treatment Site RUL Prescribed Dose 60 Gy in 30 fractions Current Dose: 54 Gy in 27 fractions [employer] Lantigua from Current Plan (minimum 60 Gy isodose volume shown): INTERVAL HISTORY Subjective: General - Overall feels fair. Resp - No new SOB or cough. Esophagitis still present, but able to eat / drink more taking oxycodone liquid 5mg tid. Pain: Pain score today is 3/10, up to 5/10 when he eats/drinks. Nutrition: Weight at start of therapy was 169 lbs --> 162 lbs --> 168 --> 166 lbs --> 162 lbs thisweek. Eating soft / liquid. Seeing RD today. MEDS Medications 03/24/18 1041 Medication Sig Taking? oxyCODONE (ROXICODONE) 5 mg/5 mL Solution Take 5 mLs by mouth every 4 hours as needed for Pain. Yes sucralfate (CARAFATE) 1 gram Tablet Take 1 tablet by mouth 4 times daily as needed (dissolve in water. PRN for throat pain). Yes lidocaine (XYLOCAINE) 2 % Solution Take 5 mLs by mouth as needed for Pain (Mix 1:1:1 with benadryl & maalox prn throat pain no more than 8 doses a day). loperamide (IMODIUM) 2 mg Capsule Take 2 mg by mouth 4 times daily as needed for Diarrhea. citalopram (CELEXA) 20 mg Tablet Take 1 tablet by mouth daily. If no effect after 7d can increase to 40mg prochlorperazine (COMPAZINE) 10 mg Tablet Take 1 tablet by mouth every 6 hours as needed for Nausea. emollient base (CREAM BASE TOP) Apply topically. Jeans Cream. Apply to area of radiation twice a day but no less than 2 hours before a treatment. magnesium chloride (MAG-DELAY ORAL) Take 60 mg by mouth. tiotropium (SPIRIVA WITH HANDIHALER) 18 mcg Capsule, w/Inhalation Device Inhale 18 mcg into the lungs 2 times daily. lisinopril (PRINIVIL;ZESTRIL) 20 mg Tablet Take 1 tablet by mouth daily. meTOPROLOL tartrate (LOPRESSOR) 25 mg Tablet Take 1 tablet by mouth 2 times daily. fluticasone-vilanterol (BREO ELLIPTA) 100-25 mcg/dose Disk with Device Inhale 1 puff into the lungsdaily. atorvastatin (LIPITOR) 80 mg tablet Take 1 tablet by mouth daily. clopidogrel (PLAVIX) 75 mg tablet Take 1 tablet by mouth daily. nitroGLYcerin (NITROSTAT) 0.[address] 1 tablet under the tongue every 5 minutes as needed. pantoprazole (PROTONIX) 40 mg tablet Take 1 tablet by mouth daily. hydrochlorothiazide (HYDRODIURIL) 25 mg tablet Take 25 mg by mouth daily. FIBER CHOICE ORAL Take 1 tablet by mouth daily. aspirin 81 mg EC tablet Take 81 mg by mouth daily. albuterol-ipratropium (COMBIVENT) 18-103 mcg/Actuation inhaler 2 Puff(s), Inh, Twice daily IMAGING / LABS: I have personally reviewed this patient's interval portal imaging to confirm accurate positioning and alignment which matches the patient's original approved treatment planning images. EXAM: BP 99/57 (Patient Position: Standing) Pulse 80 Temp 36.3 ??C (97.3 ??F) Wt 73.6 kg (162 lb 3.2 oz) Comment: shoes on SpO2 100% BMI 25.4 kg/m2 Constitutional: he appears well-developed and well-nourished. No distress. Performance Status: KPS Score ECOG Grade Definition X 90-100 0 Fully active, able to carry on all pre-disease performance without restriction 70-80 1 Restricted in physically strenuous activity [...] confined to bed or chair IMPRESSION/PLAN Impression: Tolerating radiotherapy as anticipated. Esophagitis. Plan: Continue treatment as planned. Completes RT next week. Continue oxycodone, BMX/ carafate. He will be here for chemo next week. We will plan to check in with him the week after. documented in this encounter Plan of Treatment Upcoming Encounters Date Type Department Care Team (Late st Contact Info) Description 01/10/2024 7:45 AM EDT Appointment Hematology [place] [address] 01/21/2024 10:[address] [place] [address] Heber Phillips MD [facility] HEMATOLOGY/[place] [address] 03/28/2024 10:00 AM EDT Office Visit Hematology/Oncology at [address] [phone] Heber Phillips MD [facility] HEMATOLOGY/[place] [address] Isabella Baker APRN [facility] [place] [address] documented as of this encounter Visit Diagnoses Diagnosis Pain with swallowing Dysphagia, unspecified Small cell lung cancer, right upper lobe documented in this encounter Care Teams Mathematics Instructor Relationship Specialty Start Date End Date Nataliya Messina MD [address] [place] [address] PCP - General 10/02/11 01/11/22 documented as of this encounter
--- OUTSIDE RECORDS SUMMARY | 2024-01-05 02:45 | XMS_ITS | Encounter Summary ---
Author Organization [facility] [place] [address] Care Team Providers Care Senior Net Web Developer Name Role Phone Nataliya Messina MD Primary Care Provider [phone] Encounter Details Date Type Department Care Team (Latest Contact Info) Description 03/10/2018 10:30 AM EDT Clinical Support Hematology/Oncology at [address] [phone] Small cell lung cancer, right upper lobe [...] as of this encounter Progress Notes * Shira Curry RD - 03/10/2018 10:30 AM EDT [facility] Dietitian Follow Up Assessment Seen By: Leona Curry MS, RD, ADULT EDUCATION MANAGER, LD Patient and diagnosis: High-grade neuroendocrine cancer of right lung, limited stage. Assessment: HPI: Patient Active Problem List Diagnosis Code ??? [...] cell lung cancer, right upper lobe C34.11 Meds: reviewed Labs: reviewed Ht: Estimated body mass index is 27.13 kg/(m^2) as calculated from the following: Height as of 03/09/18: 168 cm (5' 6.14). Weight as of 03/09/18: 76.6 kg (168 lb 12.8 oz). Wt: Wt Readings from Last 3 Encounters: 03/09/18 76.6 kg (168 lb 12.8 oz) 03/08/18 75.4 kg (166 lb 3.2 oz) 02/24/18 73.6 kg (162 lb 3.2 oz) Wt Hx: UBW: 160- 165 lbs % UBW: IBW: 62.6 kg+/- 10% % IBW: ___ Edema ___ Ascites ___Muscle wasting Calorie needs: 1600 - 1900 Protein needs: 94 Fluid needs: 1.6 - 1.9 L Food Intake: Am: cinnamon roll w/ coffee Noon: Pm: beef pot pies - 2, Snacks: addicted to little apple pies, ring dings, cinnamon rolls Fluids: coffee: 2 cups, Gaterade - 12 OZ water: in pm - ~ 12-16 oz, 1-2 beers/d. Supplements/Frequency: hasn't tried these ___ Ensure/Plus ___ Boost/Plus ___ CIB ___ Other: Teas, vitamins, or other nutritional supplements: MgCl, fiber + Food allergies or avoidances: salmon, avocado, Appetite: Good, unrestricted with intake. Baseline protions Nausea: denies Vomiting: denies Chewing: denies Dentition: dentures - fit ok Swallowing: + heartburn; increasing esophagitis. Trouble with larger meds. Taste Changes: denies - but can't eat slim jims anymore. Bowels: Baseline: 2 times/d. Takes fiber supplement QD. Food availability/purchasing, meal planning and preparation: He does, lives alone. Depression: Social Support: Economic Issues: Physical Activity: playing (stacking) with wood, raking - recently had dooryard excavated and remodeled. Level of Motivation/Readiness to Change: Nutrition Diagnosis: 03/10/18: Weight gain. Appetite has not been lost. I think I'm eating more. Eating more often andlarger portions. Unrestricted with foods, yet reports some foods feel they do have a stuck sensation. Recommended soft foods, thinning foods, if needed to ease flow down esophagus to stomach. 02/24/18: Weight stable. He was accompanied by his sister Lin, and she is very supportive. Appetite is baseline, as is intake. Some heartburn and he is getting script for BMX today from Dr. Cadena. Reviewed soft, moist protien-rich foods. Denies dysgeusia, bowel issues, N/V. Recommended increasing fluid intake as he's meeting ~ 30% of estimated needs. Provided sample and coupon of CIB. Encouraged to continue to be as physically active as possible. Nutrition Intervention: ? Increase caloric needs ? Modify diet consistency: ? Increase frequency of meals and snacks ? Need for supplements Nutrition Goals: --Soft, moist protein-rich foods -- Fluid intake -- CIB sample/coupon Educational Handouts provided: Other Recommendations: ? Monitoring and Evaluation: Will follow up with Mr. Tillman in two week (s) to re-evaluate. I have provided him with my card and contact information should he have any questions in the mean time. Thank you for this consult. documented in this encounter Plan of Treatment Upcoming Encounters Date Type Department Care Team (Late st Contact Info) Description 01/10/2024 7:45 AM EDT Appointment Hematology [place] [address] 01/21/2024 10:[address] [place] [address] Heber Phillips MD [facility] HEMATOLOGY/[place] [address] 03/28/2024 10:00 AM EDT Office Visit Hematology/Oncology at [address] [address] Heber Phillips MD [facility] DR HEMATOLOGY/[place] [address] Isabella Baker APRN [facility] [place] [address] documented as of this encounter Visit Diagnoses Diagnosis Small cell lung cancer, right upper lobe documented in this encounter Care Teams Senior Net Web Developer Relationship Specialty Start Date End Date Nataliya Messina MD [address] [place] [address] [address] [place] [address] PCP - General 10/02/11 01/11/22 documented as of this encounter
--- OUTSIDE RECORDS SUMMARY | 2024-01-05 02:45 | XMS_ITS | Encounter Summary ---
[place] [address] Care Team Providers Care Fruit Harvester Machine Operator Name Role Phone Nataliya Messina MD Primary Care Provider [phone] Encounter Details Date Type Department Care Team (Late st Contact Info) Description 03/10/2018 2:15 PM EDT Office Visit Radiation Oncology at [address] [phone] Mikhail Cadena MD [address] [place] [address] [place] [address] Small cell lung cancer, right upper lobe; Pain with swallowing Social History Tobacco Use Types Packs/Day Years [...] Sign Reading Time Taken Comments Blood Pressure 140/69 03/10/2018 3:00 PM EDT Pulse 69 03/10/2018 3:00 PM EDT Temperature - - Respiratory Rate - - Oxygen Saturation 100% 03/10/2018 3:00 PM EDT Inhaled Oxygen Concentration - - Weight - - Height - - Body Mass Index - - documented in this encounter Progress Notes * Mikhail Cadena MD - 03/10/2018 2:15 PM EDT Images from the original note were not included. RADIATION ONCOLOGY - Weekly On Treatment Visit Note 03/10/18 Mikhail Cadena MD, MS Radiation Oncology [facility] [phone] (paging button attaching machine operator) Pager #[phone] PATIENT IDENTIFICATION Name Hieu Tillman Date of 1955 Diagnosis (Small cell lung cancer, right upper lobe Staging form: Lung, AJCC 8th Edition - Clinical: Stage IIIA (cT3, cN1, cM0) - Signed by Mikhail Cadena MD on 01/13/2018) CONCURRENT THERAPY: Carboplatin / Etoposide (from Dr. Phillips) INTENT OF THERAPY: Definitive (Curative) RADIATION TREATMENT DETAILS: Treatment Site RUL Prescribed Dose 60 Gy in 3 fractions Current Dose: 34 Gy in 17 fractions Manager Family Lantigua from Current Plan (minimum 60 Gy isodose volume shown): INTERVAL HISTORY Subjective: General - Overall feels well. Resp - No new cough or shortness of breath. Stable ESCAMILLA. No esophagitis. CV - No new chest pain. Pain: Pain score today is 0/10. Nutrition: Weight at start of therapy was 169 lbs --> 162 lbs --> 168 lbs this week. Eating normal diet. MEDS Medications 03/10/18 6958 Medication Sig Taking? sucralfate (CARAFATE) 1 gram Tablet Take 1 tablet by mouth 4 times daily as needed (dissolve in water. PRN for throat pain). lidocaine (XYLOCAINE) 2 % Solution Take 5 mLs by mouth as needed for Pain (Mix 1:1:1 with benadryl & maalox prn throat pain no more than 8 doses a day). loperamide (IMODIUM) 2 mg Capsule Take 2 mg by mouth 4 times daily as needed for Diarrhea. isosorbide mononitrate (IMDUR) 30 mg Tablet Sustained Release 24 hr Take 1 tablet by mouth daily. citalopram (CELEXA) 20 mg Tablet Take 1 tablet by mouth daily. If no effect after 7d can increase to 40mg prochlorperazine (COMPAZINE) 10 mg Tablet Take 1 tablet by mouth every 6 hours as needed for Nausea. Patient not taking: Reported on 02/17/2018 emollient base (CREAM BASE TOP) Apply topically. [...] as needed. Patient not taking: Reported on 03/03/2018 pantoprazole (PROTONIX) 40 mg tablet Take 1 [...] original approved treatment planning images. EXAM: BP 140/69 Pulse 69 SpO2 100% Constitutional: he appears well-developed and well-nourished. No [...] chair IMPRESSION/PLAN Impression: Tolerating radiotherapy as anticipated. Plan: Continue treatment as planned. documented in this encounter Plan of Treatment Upcoming Encounters Date Type Department Care Team (Late st Contact Info) Description 01/10/2024 7:45 AM EDT Appointment Hematology [place] [address] 01/21/2024 10:[address] [place] [address] Heber Phillips MD [facility] DR HEMATOLOGY/[place] [address] 03/28/2024 10:00 AM EDT Office Visit Hematology/Oncology at [address] [phone] Heber hPillips MD [facility] DR HEMATOLOGY/[place] [address] Isabella Baker APRN [facility] [place] [address] documented as of this encounter Visit Diagnoses Diagnosis Small cell lung cancer, right upper lobe Pain with swallowing Dysphagia, unspecified documented in this encounter Care Teams Fruit Harvester Machine Operator Relationship Specialty Start Date End Date Nataliya Messina MD [address] [place] [address] PCP - General 10/02/11 01/11/22 documented as of this encounter
--- OUTSIDE RECORDS SUMMARY | 2024-01-05 02:45 | XMS_ITS | Encounter Summary ---
Author Organization [facility]ly [facility] Address [facility] [place] [address] Care Team Providers Care Pilot Fuel Engineer Name Role Phone Nataliya Messina MD Primary Care Provider [phone] Reason for Referral * Diagnostic Test (Routine) - Closed Specialty Diagnoses / Procedures Referred By Contac t Referred To Contact Radiology Diagnoses Small cell lung cancer, right upper lobe Procedures CT Chest Abdomen Pelvis w Contrast (Generic) Heber Phillips MD [facility] HEMATOLOGY/[place] [address] [facility] [place] [address] Referral ID Status Reason Start Date Expiration Date V isits Requested Visits Authorized [id number] Closed Specialty Service Requested 10/18/2018 10/18/2019 1 1 Encounter Details Date Type Department Care Team (Late st Contact Info) Description 10/18/2018 9:00 AM EDT Office Visit Hematology/Oncology at [address] [phone] Heber Phillips MD [facility] HEMATOLOGY/[place] [address] Small cell lung cancer, right upper lobe; Small cell lung cancer; SOB (shortness of breath) Social History Tobacco [...] Sign Reading Time Taken Comments Blood Pressure 133/73 10/18/2018 9:27 AM EDT Pulse 81 10/18/2018 9:27 AM EDT Temperature 36.4 ??C (97.5 ??F) 10/18/2018 9:27 AM ED T Respiratory Rate 16 10/18/2018 9:27 AM EDT Oxygen Saturation 97% 10/18/2018 9:27 AM EDT Inhaled Oxygen Concentration - - Weight 80.3 kg (177 lb) 10/18/2018 9:27 AM EDT Height 170.2 cm (5' 7.01) 10/18/2018 9:27 AM ED T Body Mass Index 27.72 10/18/2018 9:27 AM EDT documented in this encounter Progress Notes * Heber Phillips MD - 10/18/2018 9:00 AM EDT Images from the original note were not included. Diagnosis: High-grade neuroendocrine cancer of right lung, limited stage, clinical: stage IIIA (cT3, cN1, cM0) Subjective: I feel fine HPI:Hieu Tillman is 63 y.o. M referred [...] cancer and discussion of restaging PET scan. Exertional dyspnea is stable. Complaints on mild to moderate dry cough. Denies any nausea, vomiting or pain. No fever or chills. No new pain. No other focal complaints. PMH: No interval changes since last visit [place] in 2013 status post 2 stents placement, [...] radiating to right leg ??? Myocardial infarction [place] about 6 years ago [place] [facility] [place] ??? 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 Marital status: [...] file Gets together: Not on file Attends nondenominational service: Not on file Active member of [...] Social History Narrative Lives with his in [place], [place]. 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 [...] well. Medications: Your Medications Accurate as of 10/18/18 9:42 AM. If you have any questions, ask [...] as: HYDRODIURIL Take 25 mg by mouth daily. 25 mg Refills: 0 lisinopril 20 mg Tab Commonly known as: PRINIVIL;ZESTRIL Take 1 tablet by mouth daily. 20 mg Quantity: 90 tablet Refills: 3 MAG-DELAY ORAL Take 60 mg by mouth. 60 mg Refills: 0 metoprolol tartrate 25 mg Tab [...] mg Tab Commonly known as: DELTASONE Take 1 tablet by mouth See Admin Instructions. Patient to take 50 mg tab; 7 pm on 08/15/18, 1 am and7 am on 08/16/[address] prophylaxis 50 mg Quantity: 3 tablet Refills: 0 SPIRIVA WITH [...] Neurological: Negative. Hematological: Negative for adenopathy. BP 133/73 (Patient Position: Sitting) Pulse 81 Temp 36.4 ??C (97.5 ??F) (Oral) Resp 16 Ht 170.2 cm (5' 7.01) Wt 80.3 kg (177 lb) SpO2 97% BMI 27.72 kg/m?? Wt Readings from Last 3 Encounters: 10/18/18 80.3 kg (177 lb) 09/27/18 78.9 kg (174 lb) 07/04/18 75.3 kg (166 lb) Physical Exam Constitutional: He is oriented [...] content normal. His affect is labile. Labs: 10/17/2018 sodium 153, potassium 4.2, BUN 24, [...] phosphatase 104, total protein 7.4, albumin 3.9 Imagin10/14/2018 PET scan: IMPRESSION 1. Marked interval improvement [...] including history of stroke, severe peripheralvascular disease, SC status post stent placement and COPD. His [...] opacities on CT scan May 18, 2018. PET scan shows some residual activity mild to moderate degree of residual activity in the residual right upper lobe mass which could represent post radiation inflammation, however, residual active malignancy not excluded. Post radiation inflammation in the remainder of the right upper lobe. No distant sites of metastasis. No clear sign of progression or recurrence based on the PET scan findings. We will proceed with food I will see Mr. Tillman back in 3 months with blood work and CT scan. #Depression: feels better on Celexa Plan: 1. Next visit with CBc, CMP and CT scan in 3 months The plan was discussed with the patient in details. All questions were answered to patient's satisfaction. documented in this encounter Plan of Treatment Upcoming Encounters Date Type Department Care Team (Late st Contact Info) Description 01/10/2024 7:45 AM EDT Appointment Hematology [place] [address] 01/21/2024 10:[address] [place] [place] [address] Heber Phillips MD [facility] HEMATOLOGY/[place] [address] 03/28/2024 10:00 AM EDT Office Visit Hematology/Oncology at [address] [phone] Heber Phillips MD [facility] HEMATOLOGY/[place] [address] Isabella Baker APRN [facility] [place] [address] documented as of this encounter Results * CT Chest Abdomen [...] the number below. ? Electronically signed by: Pushpa Arceo [facility] ([phone]), at 01/23/2019 3:50 PM Narrative 01/23/2019 3:50 PM EDT EXAMINATION: CT [...] administration of contrast. Administered 91.0 ml of [id number] mg/ml. Oral contrast was administered. COMPARISON: PET [...] number below. Electronically signed by: Pushpa Arceo [facility] ([phone]),at 01/23/2019 3:50 PM Heber Phillips MD IMG CT ORDERABLES documented in this encounter Visit Diagnoses Diagnosis Small cell lung cancer, right upper lobe Small cell lung cancer Malignant neoplasm of bronchus and lung, unspecified site SOB (shortness of breath) Shortness of breath Small cell lung cancer, right upper lobe documented in this encounter Care Teams Pilot Fuel Engineer Relationship Specialty Start Date End Date Nataliya Messina MD [address] [place] [address] PCP - General 10/02/11 01/11/22 documented as of this encounter
--- OUTSIDE RECORDS SUMMARY | 2024-01-05 02:45 | XMS_ITS | Encounter Summary ---
Author Organization [facility] [place] [address] Care Team Providers Care Fan Mail Editor Name Role Phone Nataliya Messina MD Primary Care Provider [phone] Reason for Visit * Reason Onset Date Comments Other 09/02/2018 Encounter Details Date Type Department Care Team (Late st Contact Info) Description 09/02/2018 Telephone Cardiology at [address] [phone] Kimmie Leyva Other Social History Tobacco Use Types Packs/Day [...] encounter Miscellaneous Notes * Telephone Encounter - Kimmie Leyva - 09/02/2018 10:35 AM EDT Spoke with Mr. Tillman at the 5 yr time point per Absorb III study protocol. Questionnaires completed. Mr. Tillman reports no hospitalizations or ER visits r/t cardiac concerns. He does state he was diagnosed with lung CA in November 2017. Informed Mr. Tillman that he had reached the end of his involvement in the Absorb study and thanked him for his time and participation. documented in this encounter Plan of Treatment Upcoming Encounters Date Type Department Care Team (Late st Contact Info) Description 01/10/2024 7:45 AM EDT Appointment Hematology [place] [address] 01/21/2024 10:[address] [place] [address] Heber Phillips MD [facility] DR HEMATOLOGY/[place] [address] 03/28/2024 10:00 AM EDT Office Visit Hematology/Oncology at [address] [phone] Heber Phillips MD [facility] DR HEMATOLOGY/[place] [address] Isabella Baker APRN [facility] [place] [address] documented as of this encounter Visit Diagnoses Not on filedocumented in this encounter Care Teams Fan Mail Editor Relationship Specialty Start Date End Date Nataliya Messina MD [address] [place] [address] PCP - General 10/02/11 01/11/22 documented as of this encounter
--- OUTSIDE RECORDS SUMMARY | 2024-01-05 02:45 | XMS_ITS | Encounter Summary ---
Author Organization [facility] [place] [address] Care Team Providers Care Nursing Staffing Coordinator Name Role Phone Nataliya Messina MD Primary Care Provider [phone] Encounter Details Date Type Department Care Team (Late st Contact Info) Description 03/29/2018 10:30 AM EDT Office Visit Hematology/Oncology at [address] [phone] Thu Saldana APRN [facility] [place] [address] Small cell lung cancer, right upper lobe [...] Sign Reading Time Taken Comments Blood Pressure 125/59 03/29/2018 10:48 AM EDT Pulse 75 03/29/2018 10:48 AM EDT Temperature 36.4 ??C (97.5 ??F) 03/29/2018 10:48 AM E DT Respiratory Rate 16 03/29/2018 10:48 AM EDT Oxygen Saturation 99% 03/29/2018 10:48 AM EDT Inhaled Oxygen Concentration - - Weight 74.4 kg (164 lb) 03/29/2018 10:48 AM EDT Height 168 cm (5' 6.14) 03/29/2018 10:48 AM EDT Body Mass Index 26.36 03/29/2018 10:48 AM EDT documented in this encounter Patient Instructions * Patient Instructions* Thu Saldana APRN - 03/29/2018 10:30 AM EDT He will return in 2 weeks with labs prior for followup. documented in this encounter Progress Notes * Thu Saldana APRN - 03/29/2018 10:30 AM EDT Diagnosis: High-grade neuroendocrine cancer of right [...] appointment on small cell lung cancer and fourth cycle of chemotherapy with carboplatin and etoposide. He tolerates concurrent chemoradiation pretty well with mild fatigue. He noticed improvement in the breathing. Denies any nausea, vomiting or pain. No fever or chills. He completed his radiation treatments today. PMH: No interval changes since last visit [place] in 2013 status post 2 stents [...] infarction [place] about 6 years ago @ [facility] [place]has stents ??? 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 Marital status: Spouse name: N/A ??? Number of children: 5 ??? 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 Smoking status: Former Smoker Packs/day: 2.00 Years: 47.00 Types: Cigarettes Quit date: 09/11/2013 ??? Smokeless tobacco: Never Used ??? Alcohol use No Comment: Sober 25 years the summer ??? Drug use: No ??? Sexual activity: Not Currently Comment: deferred Other Topics Concern ??? Not on file Social History Narrative Lives with his in [place], [place]. 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 Medications: Reviewed He has completed the first cycle of concurrent carbo/VP16 and presents today for his second cycle, d1/3 treatment. His weight is stable and he states he is eating well. The only side effect of treatment that he noted was a few days of diarrhea that he controlled with imodium. Review of Systems: Constitutional: Negative for fever, [...] Neurological: Negative. Hematological: Negative for adenopathy. BP 125/59 (Patient Position: Sitting) Pulse 75 Temp 36.4 ??C (97.5 ??F) (Oral) Resp 16 Ht 168 cm (5' 6.14) Wt 74.4 kg (164 lb) SpO2 99% BMI 26.36 kg/m2 Wt Readings from Last 3 Encounters: 03/29/18 74.4 kg (164 lb) 03/24/18 73.6 kg (162 lb 3.2 oz) 03/21/18 74.2 kg (163 lb 8 oz) Physical Exam Constitutional: He is oriented [...] thought content normal. His affect is labile. He exhibits a depressed mood. Labs: 03/28/18 sodium 133, potassium 3.9, BUN 19, creatinine 1.0, calcium 8.5 TB 0.3, AST 21, ALT 26, alkaline phosphatase 110, total protein 7.3, albumin 3.6, WBC 4.43, hemoglobin 9.4, platelet count 292, ANC 2.75. Imagin12/31/2017 PET IMPRESSION 1. FDG avid right [...] mg methylPREDNISolone acetate (DEPO-Medrol) Epid [facility] ([facility]) 01/27/2018 Day, Cycle Day 2, Cycle 1 CARBOplatin (PARAPLATIN) IV etoposide (VEPESID) IV 100 mg/m2/dose = 185 mg methylPREDNISolone acetate (DEPO-Medrol) [facility] 01/28/2018 Day, Cycle Day 3, Cycle 1 [...] mg dd 1-3 . Mr. Tillman tolerated first 3 cycles of carboplatin and etoposide well. He feels improvement in his breathing. Denies any pain, fever or chills. We will proceed with cycle 4 today. #Depression: feels better on Celexa Plan: 1. Carboplatin and etoposide tomorriw 2. Next visit with blood work in documented in this encounter Plan of Treatment Upcoming Encounters Date Type Department Care Team (Late st Contact Info) Description 01/10/2024 7:45 AM EDT Appointment Hematology [place] [address] 01/21/2024 10:[address] [place] [address] Heber Phillips MD [facility] DR HEMATOLOGY/[place] [address] 03/28/2024 10:00 AM EDT Office Visit Hematology/Oncology at [address] [phone] Heber Phillips MD [facility] DR HEMATOLOGY/[place] [address] Isabella Baker APRN [facility] [place] [address] documented as of this encounter Visit Diagnoses Diagnosis Small cell lung cancer, right upper lobe documented in this encounter Care Teams Nursing Staffing Coordinator Relationship Specialty Start Date End Date Nataliya Messina MD [address] [place] [address] [address] [place] [address] PCP - General 10/02/11 01/11/22 documented as of this encounter
--- OUTSIDE RECORDS SUMMARY | 2024-01-05 02:45 | XMS_ITS | Encounter Summary ---
Author Organization [facility] [place] [address] Care Team Providers Care Form Raiser Name Role Phone Nataliya Messina MD Primary Care Provider [phone] Reason for Visit * Reason Comments Follow-up 4 month F/U CAD Encounter Details Date Type Department Care Team (Late st Contact Info) Description 10/25/2018 1:20 PM EDT Office Visit Cardiology at [address] [phone] Lauri Winn Jr., MD [address] [place] [phone] Hypertension, unspecified type; Coronary artery disease, angina presence unspecified, unspecified vessel or lesion type, unspecified whether makah or transplanted heart; Hyperlipidemia, unspecified hyperlipidemia type Social History Tobacco [...] Sign Reading Time Taken Comments Blood Pressure 96/56 10/25/2018 1:24 PM EDT Pulse 80 10/25/2018 1:21 PM EDT Temperature - - Respiratory Rate - - Oxygen Saturation - - Inhaled Oxygen Concentration - - Weight 80.3 kg (177 lb) 10/25/2018 1:21 PM EDT Height 170.2 cm (5' 7) 10/25/2018 1:21 PM EDT Body Mass Index 27.72 10/25/2018 1:21 PM EDT documented in this encounter Progress Notes * Lauri Winn Jr., MD - 10/25/2018 1:20 PM EDT Subjective: Patient ID: Hieu Tillman is a 63 y.o. male. Chief Complaint Patient presents with ??? Follow-up 4 month F/U CAD HPI He is done with chemo and radiation and working on regaining his strength. He has not had chestpain but has had mild ESCAMILLA. He was able to walk up the stairs here comfortably on the way in today. He denies palpitations or dizziness. He has had no edema, PND or orthopnea. Review of Systems No bruising or bleeding Allergies Allergen Reactions ??? Contrast [Iodine And Iodide Containing Products] Anaphylaxis and Hives He has tolerated IV dye since with premedication. History of anaphylaxis as well. Current Outpatient Medications Medication Sig Dispense Refill [...] inhaler 2 Puff(s), Inh, Twice daily ??? predniSONE (DELTASONE) 50 mg Tablet Take 1 tablet by mouth See Admin Instructions. Patient to take 50 mg tab; 7 pm on 08/15/18, 1 am and 7 am on 08/16/[address] prophylaxis (Patient not taking: Reported on 09/27/2018) 3 tablet 0 No current facility-administered medications for this visit. Patient Active Problem List Diagnosis ??? Dehydration [...] to right leg Objective: Physical Exam BP 96/56 (BP Location (NBP): Right arm, Patient Position: Standing) Pulse 80 Ht 170.2 cm (5' 7) Wt 80.3 kg (177 lb) BMI 27.72 kg/m?? BP 108/50 on repeat NAD No JVD/HJR Chest clear, no wheezing Cor RR, no murmur Abd benign Ext no edema Assessment and Plan: Well controlled angina- to gradually increase activity Good BP Lipids- no recent labs- will check once fully recovered Follow up 6 months documented in this encounter Plan of Treatment Upcoming Encounters Date Type Department Care Team (Late st Contact Info) Description 01/10/2024 7:45 AM EDT Appointment Hematology [place] [address] 01/21/2024 10:[address] [place] [address] Heber Phillips MD [facility] DR HEMATOLOGY/[place] [address] 03/28/2024 10:00 AM EDT Office Visit Hematology/Oncology at [address] [phone] Heber Phillips MD [facility] DR HEMATOLOGY/[place] [address] Isabella Baker APRN [facility] [place] [address] documented as of this encounter Visit Diagnoses Diagnosis Hypertension, unspecified type Coronary artery disease, angina presence unspecified, unspecified vessel or lesion type, unspecified whether makah or transplanted heart Hyperlipidemia, unspecified hyperlipidemia type documented in this encounter Care Teams Form Raiser Relationship Specialty Start Date End Date Nataliya Messina MD [address] [place] [address] PCP - General 10/02/11 01/11/22 documented as of this encounter
--- OUTSIDE RECORDS SUMMARY | 2024-01-05 02:45 | XMS_ITS | Encounter Summary ---
Author Organization [facility] [place] [address] Care Team Providers Care Licensed Loan Officer Name Role Phone Nataliya Messina MD Primary Care Provider [phone] Encounter Details Date Type Department Care Team (Late st Contact Info) Description 08/18/2018 7:05 PM EST Ancillary Procedure [place] [phone] Heber Phillips MD [facility] HEMATOLOGY/[place] [address] Social History Tobacco Use Types Packs/Day Years [...] AM EDT Appointment Hematology [place] [phone] 01/21/2024 10:[address] [place] [phone] Heber Phillips MD [facility] HEMATOLOGY/[place] [address] 03/28/2024 10:00 AM EDT Office Visit Hematology/Oncology at [address] [phone] Heber Phillips MD [facility] HEMATOLOGY/[place] [address] Isabella Baker APRN [facility] [place] [address] documented as of this encounter Procedures Procedure Name Priority Date/Time Associated Diagnosis Comments FILM LIBRARY STORAGE ONLY MR HEAD Routine 08/18/2018 7:02 PM EST documented in this encounter Results * Film Library- Storage Only MR Head (08/18/2018 7:02 PM EST) Narrative [facility] - 08/18/2018 7:02 PM EST This exam is for storage only and is auto-finalizing. Heber Phillips MD G FILM LIBRARY ORD ERABLES [place], [place] documented in this encounter Visit Diagnoses Not on filedocumented in this encounter Care Teams Licensed Loan Officer Relationship Specialty Start Date End Date Nataliya Messina MD [address] [place] [address] PCP - General 10/02/11 01/11/22 documented as of this encounter
--- OUTSIDE RECORDS SUMMARY | 2024-01-05 02:45 | XMS_ITS | Encounter Summary ---
[place] [address] Care Team Providers Care Section Housekeeper Name Role Phone Nataliya Messina MD Primary Care Provider [phone] Encounter Details Date Type Department Care Team (Late Contact Info) Description 03/30/2018 Notes Only Hematology/Oncology at [address] [phone] Mya Saeed MSW OFFICE OF CARE MANAGEMENT Social History Tobacco Use Types Packs/Day Years [...] as of this encounter Progress Notes * Mya Saeed MSW - 03/30/2018 1:15 PM EDT Follow up with pt and sisters. Answered questions re lifeline and pt was sent information re this services. Discussed pt has finalized his divorce. Continued discussion re completing his advance directed. See ACP note for details. Will continue to follow. documented in this encounter Plan of Treatment Upcoming Encounters Date Type Department Care Team (Late Contact Info) Description 01/10/2024 7:45 AM EDT Appointment Hematology [place] [address] 01/21/2024 10:[address] [place] [address] Heber Phillips MD [facility] DR HEMATOLOGY/[place] [address] 03/28/2024 10:00 AM EDT Office Visit Hematology/Oncology at [address] [phone] Heber Phlilips MD [facility] DR HEMATOLOGY/[place] [address] Isabella Baker APRN [facility] [place] [address] documented as of this encounter Visit Diagnoses Not on filedocumented in this encounter Care Teams Section Housekeeper Relationship Specialty Start Date End Date Nataliya Messina MD [address] [place] [address] PCP - General 10/02/11 01/11/22 documented as of this encounter
--- OUTSIDE RECORDS SUMMARY | 2024-01-05 02:45 | XMS_ITS | Encounter Summary ---
Author Organization [facility]ly [facility] Address [facility] [place] [address] Care Team Providers Care Day Treatment Clinician/Art Therapist Name Role Phone Nataliya Messina MD Primary Care Provider Reason for Visit * Reason Comments Chemotherapy Cycle 4, Day 2 -- Et oposide * Treatment/Therapy Plan Authorization (Routine) - Closed Specialty Diagnoses / Procedures Referred By Keven lozano Referred To Contact Diagnoses Small cell lung cancer, right upper lobe Heber Phillips MD [facility] HEMATOLOGY/[place] [address] St Hem Onc Office [address] [place] [phone] Referral ID Status Reason Start Date Expiration Date Visits Re quested Visits Authorized [id number] Closed 01/20/2018 01/20/2019 1 1 Encounter Details Date Type Department Care Team (Late st Contact Info) Description 03/31/2018 10:00 AM EDT Infusion Hematology Oncology at [address] [phone] Small cell lung cancer, right [...] Sign Reading Time Taken Comments Blood Pressure 136/65 03/31/2018 9:56 AM EDT Pulse 84 03/31/2018 9:56 AM EDT Temperature 36.4 ??C (97.5 ??F) 03/31/2018 9:56 AM ED T Respiratory Rate 16 03/31/2018 9:56 AM EDT Oxygen Saturation 100% 03/31/2018 9:56 AM EDT Inhaled Oxygen Concentration - - Weight 74.5 kg (164 lb 3.2 oz) 03/31/2018 9:56 A M EDT Height 168 cm (5' 6.14) 03/31/2018 9:56 AM EDT Body Mass Index 26.39 03/31/2018 9:56 AM EDT documented in this encounter Progress Notes * Kiley Silva RN - 03/31/2018 10:00 AM EDT INFUSION THERAPY ADMINISTRATION NOTES DIAGNOSIS: SCLC CYCLE #: Cycle 4, day 2 -- Etoposide REASON FOR VISIT: To receive chemotherapy. SUBJECTIVE: [...] by Fredi Silva RN and Arjun Benitez [facility]. REACTIONS (DESCRIPTION, TIME, INTERVENTION AND EFFECTIVENESS) none ASSESSMENT: Hieu was awake, alert and tolerated treatment well. Port flushed with 20 cc of NS and 500 units ofheparin and remains accessed for day 3 tomorrow. PLAN: Return to clinic tomorrow for day 3. documented in this encounter Plan of Treatment Upcoming Encounters Date Type Department Care Team (Late st Contact Info) Description 01/10/2024 7:45 AM EDT Appointment Hematology [place] [address] 01/21/2024 10:[address] [place] [address] Heber Phillips MD [facility] HEMATOLOGY/[place] [address] 03/28/2024 10:00 AM EDT Office Visit Hematology/Oncology at [address] [phone] Heber Phillips MD [facility] HEMATOLOGY/[place] [address] Isabella Baker APRN [facility] [place] [address] documented as of this encounter Visit Diagnoses Diagnosis Small cell lung cancer, right upper lobe documented in this encounter Administered Medications Inactive Administered Medications - up to 3 most recent administrations Medication Order MAR Action Action Date Dose Rate Site dexamethasone (DECADRON) injection 10 mg 10 mg, Intravenous, ONCE, 1 dose, On Federica 03/31/18 at 1030, Administer prior to chemotherapy Given 03/31/2018 10:30 AM EDT 10 mg etoposide (VEPESID) 185 mg in sodium chloride 0.9% Non-PVC 509.25 mL chemo infusion 185 mg (100 mg/m2/dose ? 1.85 m2 Treatment Plan BSA from Recorded weight), Intravenous, ONCE, 1 dose, On Federica 03/31/18 at 1130, Administer over 120 Minutes New Bag 03/31/2018 11:04 AM EDT 185 mg 255 mL/hr heparin, porcine 100 unit/mL flush 500 Units 500 Units, Intravenous, ONCE PRN, Starting on Federica 03/31/18 at 1007, Until Federica 03/31/18 at 1613, Line Care, Refer to Intravenous (IV) Procedure: Accessing Implanted Vascular Access Devices (244) procedure and/or Intravenous (IV) Job Aid: Adult Flushing & Catheter Care (7529) job aid for additional information regarding guidelines and administration., Routine Given 03/31/2018 1:05 PM EDT 500 Units sodium chloride 0.9 % flush 5-20 mL 5-20 mL, Intravenous, EVERY 1 MIN PRN, Starting on Federica 03/31/18 at 1007, Until Federica 03/31/18 at 1613, Line Care, Flush pertains to all indwelling lines. Flush per protocol found in the job aid using the link provided on this medication record. Refer to Intravenous (IV) Job Aid: Adult Flushing & Catheter Care (4124) job aid for additional information regarding guidelines and administration., Routine Given 03/31/2018 1:05 PM EDT 20 mLs documented in this encounter Care Teams Day Treatment Clinician/Art Therapist Relationship Specialty Start Date End Date Nataliya Messina MD [address] [facility] 1 [place] [address] PCP - General 10/02/11 01/11/22 documented as of this encounter
--- OUTSIDE RECORDS SUMMARY | 2024-01-05 02:45 | XMS_ITS | Encounter Summary ---
[place] [address] Care Team Providers Care Roughener Name Role Phone Nataliya Messina MD Primary Care Provider [phone] Encounter Details Date Type Department Care Team (Late Contact Info) Description 03/31/2018 Notes Only Hematology/Oncology at [address] [phone] Mya Saeed MSW OFFICE OF [...] Progress Notes * Mya Saeed MSW - 03/31/2018 11:27 AM EDT Follow up with pt and sister Glenys. Continued ACP discussion. Completed AD document with pt. Copy to be placed in his medical record. See ACP note for details. documented in this encounter Plan of Treatment Upcoming Encounters Date Type Department Care Team (Late Contact Info) Description 01/10/2024 7:45 AM EDT Appointment Hematology [place] [address] 01/21/2024 10:[address] [place] [place] [address] Heber Phillips MD [facility] DR HEMATOLOGY/[place] [address] 03/28/2024 10:00 AM EDT Office Visit Hematology/Oncology at [address] [phone] Heber Phillips MD [facility] DR HEMATOLOGY/[place] [address] Isabella Baker APRN [facility] [place] [place] [address] documented as of this encounter Visit Diagnoses Not on filedocumented in this encounter Care Teams Roughener Relationship Specialty Start Date End Date Nataliya Messina MD [address] [place] [address] [address] [facility] 1 [place] [address] PCP - General 10/02/11 01/11/22 documented as of this encounter
--- OUTSIDE RECORDS SUMMARY | 2024-01-05 02:45 | XMS_ITS | Encounter Summary ---
Author Organization [facility] [place] [address] Care Team Providers Care Care Consultant Name Role Phone Nataliya Messina MD Primary Care Provider [phone] Encounter Details Date Type Department Care Team (Late st Contact Info) Description 08/16/2018 Ancillary Procedure [place] [phone] Heber Phillips MD [facility] HEMATOLOGY/[place] [address] Social History Tobacco Use Types Packs/Day Years [...] AM EDT Appointment Hematology [place] [phone] 01/21/2024 10:[address] [place] [place] [phone] Heber Phillips MD [facility] HEMATOLOGY/ONCOLOGY [place], [place] [phone] 03/28/2024 10:00 AM EDT Office Visit Hematology/Oncology at [address] [phone] Heber Phillips MD [facility] DR HEMATOLOGY/[place] [address] Isabella Baker APRN [facility] [place] [address] documented as of this encounter Procedures Procedure Name Priority Date/Time Associated Diagnosis Comments MRI/MRA SCAN 08/18/2018 12:00 AM EST FILM LIBRARY STORAGE ONLY CT CHEST ABDOMEN PELVIS Routine 08/16/2018 12:00 AM EST documented in this encounter Results * SCAN DOC: MRI/MRA (08/18/2018 12:00 AM EST) Anatomical Region Laterality Modality SO Narrative 08/18/2018 12:00 AM EST Ordered by an unspecified provider. Scanning Provider MEDIA MGR SCAN EXT O RDR/RSLT * Film Library- Storage Only CT Chest Abdomen Pelvis (08/16/2018 12:00 AM EST) Narrative RAD - 08/17/2018 9:56 AM EST This exam is for storage only and is auto-finalizing. Heber Phillips MD IMG FILM LIBRARY ORD ERABLES [place], [place] documented in this encounter Visit Diagnoses Not on filedocumented in this encounter Care Teams Care Consultant Relationship Specialty Start Date End Date Nataliya Messina MD [address] [place] [address] PCP - General 10/02/11 01/11/22 documented as of this encounter
--- OUTSIDE RECORDS SUMMARY | 2024-01-05 02:45 | XMS_ITS | Encounter Summary ---
Author Organization [facility] Address [facility] [place] [address] Care Team Providers Care Shellfish Processing Machine Tender Name Role Phone Nataliya Messina MD Primary Care Provider [phone] Encounter Details Date Type Department Care Team (Latest Contact Info) Description 05/18/2018 - 05/18/2018 11:59 PM EST Hospital Encounter [place] [address] Thu Saldana APRN [facility] [place] [address] Discharge Disposition: Home Social History Tobacco Use [...] 325 mg Tablet Take by mouth. 11/03/2017 magnesium chloride (MAG-DELAY ORAL) Take 1 tablet [...] mg Tablet Take by mouth. 11/02/2016 10/13/2022 lidocaine (XYLOCAINE) 2 % SolutionIndications:Sm all cell lung cancer, right upper lobe,Pain with swallowing Take 5 mLs by mouth as needed for Pain (Mix 1:1:1 with benadryl & maalox prn throat pain no more than 8 doses a day). 100 mL 1 03/10/2018 07/04/2018 loperamide (IMODIUM) 2 mg Capsule Take 2 mg by mouth 4 times daily as needed for Diarrhea. 07/04/2018 citalopram (CELEXA) 20 mg Tablet Take 1 tablet by mouth daily. If no effect after 7d can increase to 40mg 60 tablet 3 02/15/2018 09/27/2018 prochlorperazine (COMPAZINE) 10 mg TabletIndications:Smal l cell lung cancer Take 1 tablet by mouth every 6 hours as needed for Nausea. 30 tablet 3 01/20/2018 07/04/2018 clopidogrel (PLAVIX) 75 mg tablet Take 1 tablet by mouth daily. 90 tablet 3 09/13/2013 07/30/2023 nitroGLYcerin (NITROSTAT) 0.[address] 1 tablet under the tongue every 5 minutes as needed. 25 tablet 12 09/13/2013 04/30/2021 pantoprazole (PROTONIX) 40 mg tablet Take 1 tablet by mouth daily. 30 tablet 2 09/13/2013 09/27/2018 hydrochlorothiazide (HYDRODIURIL) 25 mg tablet Take 25 mg by mouth every other day. 10/12/2023 albuterol-ipratropium (COMBIVENT) 18-103 mcg/Actuation inhaler 2 Puff(s), Inh, Twice daily 03/09/2006 05/03/2020 documented as of this encounter Plan of Treatment Upcoming Encounters Date Type Department Care Team (Late st Contact Info) Description 01/10/2024 7:45 AM EDT Appointment Hematology [place] [address] 01/21/2024 10:[address] [place] [place] [address] Heber Phillips MD [facility] DR HEMATOLOGY/[place] [address] 03/28/2024 10:00 AM EDT Office Visit Hematology/Oncology at [address] [phone] Heber Phillips MD [facility] HEMATOLOGY/[place] [address] Isabella Baker APRN [facility] [place] [address] documented as of this encounter Procedures Procedure Name Priority Date/Time Associated Diagnosis Comments DIAGNOSTIC RADIOLOGY SCAN 05/18/2018 12:00 AM EST FILM LIBRARY STORAGE ONLY CT CHEST Routine 05/18/2018 12:00 AM EST documented in this encounter Results * Film Library- Storage Only CT Chest (05/18/2018 12:00 AM EST) Narrative [facility] - 05/19/2018 11:35 AM EST This exam is for storage only and is auto-finalizing. Thu Saldana APRN [facility] FILM LIBRARY ORD ERABLES [place], [place] * SCAN DOC: DIAGNOSTIC RADIOLOGY (05/18/2018 12:00 AM EST) Anatomical Region Laterality Modality SO Narrative 05/18/2018 12:00 AM EST Ordered by an unspecified provider. Scanning Provider MEDIA MGR SCAN EXT O RDR/RSLT documented in this encounter Visit Diagnoses Not on filedocumented in this encounter Care Teams Shellfish Processing Machine Tender Relationship Specialty Start Date End Date Nataliya Messina MD [address] [place] [address] PCP - General 10/02/11 01/11/22 documented as of this encounter
--- OUTSIDE RECORDS SUMMARY | 2024-01-05 02:45 | XMS_ITS | Encounter Summary ---
Author Organization [facility] [place] [address] Care Team Providers Care Insurance Verification Clerk Name Role Phone Nataliya Messina MD Primary Care Provider [phone] Reason for Referral * Diagnostic Test (Routine) - Closed Specialty Diagnoses / Procedures Referred By Contac t Referred To Contact Radiology Diagnoses Small cell lung cancer, right upper lobe Procedures PET CT Carter Skull Base to Mid-Thigh Heber Phillips MD [facility] DR HEMATOLOGY/[place] [address] [place] [address] Referral ID Status Reason Start Date Expiration Date V isits Requested Visits Authorized [id number] Closed Specialty Service Requested 09/27/2018 09/27/2019 1 1 Reason for Visit * Diagnostic Test (Routine) - Closed Specialty Diagnoses / Procedures Referred By Contac t Referred To Contact Radiology Diagnoses Small cell lung cancer, right upper lobe Procedures PET CT Carter Skull Base to Mid-Thigh Heber Phillips MD [facility] HEMATOLOGY/[place] [address] [facility] [place] [place] [address] Referral ID Status Reason Start Date Expiration Date V isits Requested Visits Authorized [id number] Closed Specialty Service Requested 09/27/2018 09/27/2019 1 1 Encounter Details Date Type Department Care Team (Latest Contact Info) Description 10/14/2018 11:00 AM EDT - 10/14/2018 11:59 PM EDT Hospital Encounter Nuclear Medicine at [facility] [place] [address] [facility] HEMATOLOGY/[place] [address] Small cell lung cancer, right upper lobe [...] mouth. 11/02/2016 10/13/2022 predniSONE (DELTASONE) 50 mg TabletIndications:Sma ll cell lung cancer, right upper lobe Take 1 tablet by mouth See Admin Instructions. Patient to take 50 mg tab; 7 pm on 08/15/18, 1 am and 7 am on 08/16/[address] prophylaxis 3 tablet 08/15/2018 01/09/2019 clopidogrel (PLAVIX) 75 mg tablet Take 1 [...] AM EDT Appointment Hematology [place] [address] 01/21/2024 10:[address] [place] [place] [address] [facility] DR HEMATOLOGY/[place] [address] 03/28/2024 10:00 AM EDT Office Visit Hematology/Oncology at [address] [phone] [facility] HEMATOLOGY/[place] [address] [facility] [place] [address] documented as of this encounter Procedures Procedure Name Priority Date/Time Associated Diagnosis Comments LAB SCAN 10/17/2018 12:00 AM EDT NM CARTER PET CT SKULL BASE TO MID-THIGH Routine 10/14/2018 11:44 AM EDT Small cell lung cancer, right upper lobe documented in this encounter Results * SCAN DOC: LAB (10/17/2018 12:00 AM EDT) Narrative 10/17/2018 12:00 AM EDT Ordered by an unspecified provider. Scanning Provider MEDIA MGR SCAN EXT O RDR/RSLT * PET CT Carter Skull Base to Mid-Thigh (10/14/2018 11:44 AM EDT) Anatomical Region Laterality Modality Positron Emissio n Tomography (PET) Impressions 10/14/2018 3:26 PM EDT 1. ??Marked interval improvement with only a mild to moderate degree of residual activity in the residual right upper lobe mass which could represent post radiation inflammation, however, residual active malignancy not excluded. 2. ??Post radiation inflammation in the remainder of the right upper lobe. 3. ??No distant sites of metastasis. I have personally reviewed the image(s) and the residents interpretation and agree with the findings, Tino Gallardo at 10/14/2018 3:26 PM Thank you for letting us participate in the care of this patient. For questions regarding this report, please contact the number below. ? Narrative 10/14/2018 3:26 PM EDT EXAMINATION: PET CT CARTER SKULL BASE TO MID-THIGH CLINICAL HISTORY: Restaging of limited stage small cell lung cancer, status post concurrent chemoradiation TECHNIQUE: Following IV injection of 51-iujcbt-2-deoxyglucose (FDG) a standard uptake of approximately 60 minutes, a noncontrast CT scan followed by a PET scan were acquired from the base of the skull to mid thighs. The noncontrast CT was used for anatomic localization and photon attenuation correction of the PET scan. Blood glucose level: 106 (mg/dL) FDG dose: 11.6 mCi Reference liver SUV mean 2 COMPARISON: PET/CT dated 12/31/2017. FINDINGS: HEAD/NECK: Normal activity in all soft tissue regions of the neck and visualized lower head. No lymphadenopathy. CHEST: Markedly decreased size and intensity of the right upper lobe mass contiguous with the right hilum, now measuring 1.9 x 2.9 cm with SUV max 2.9, previously 5.0 x 5.7 cm with SUV max 11.9. The mild to moderate residual activity within the right upper lobe mass is indistinguishable from the surrounding mild to moderately FDG avid diffuse inflammatory changes that extends throughout the right upper lobe. Normal activity in all other soft tissue regions. No enlarged mediastinal or hilar lymph nodes. Moderate centrilobular emphysema. Right-sided port catheter with tip terminating in the proximal right atrium. [place] coronary artery and aortic calcification. Note of a left circumflex artery stent. ABDOMEN/PELVIS: Normal activity in all soft tissue regions. Scattered subcentimeter hypodensities lesions are unchanged compared to prior PET/CT and consistent with simple cysts. Nonobstructing 3 mm left renal calculus. Diverticulosis without diverticulitis. Stable 3.1 cm infrarenal aortic aneurysm starting approximately 5 cm below the origin of the left renal artery. SKELETON/EXTREMITIES: Decreased marrow activity in the lower cervical and upper thoracic spine consistent with postradiation change.Normal activity in all other regions of the axial and ??visualized appendicular skeleton. Procedure Note Tino Gallardo MD - 10/14/2018 EXAMINATION: PET CT CARTER SKULL BASE TO MID-THIGH CLINICAL HISTORY: Restaging of limited stage small cell lung cancer,status post concurrent chemoradiation TECHNIQUE: Following IV injection of 22-kktiag-7-deoxyglucose (FDG) astandard uptake of approximately 60 minutes, a noncontrast CT scan followed by aPET scan were acquired from the base of the skull to mid thighs. The noncontrast CTwas used for anatomic localization and photon attenuation correction of thePET scan. Blood glucose level: 106 (mg/dL) FDG dose: 11.6 mCi Reference liver SUV mean 2 COMPARISON: PET/CT dated 12/31/2017. FINDINGS: HEAD/NECK: Normal activity in all soft tissue regions of the neck and visualizedlower head. No lymphadenopathy. CHEST: Markedly decreased size and intensity of the right upper lobe masscontiguous with the right hilum, now measuring 1.9 x 2.9 cm with SUV max 2.9,previously 5.0 x 5.7 cm with SUV max 11.9. The mild to moderate residual activitywithin the right upper lobe mass is indistinguishable from the surrounding mildto moderately FDG avid diffuse inflammatory changes that extends throughoutthe right upper lobe. Normal activity in all other soft tissue regions. Noenlarged mediastinal or hilar lymph nodes. Moderate centrilobular emphysema.Right-sided port catheter with tip terminating in the proximal right atrium. Native[place]onary artery and aortic calcification. Note of a left circumflex artery stent. ABDOMEN/PELVIS: Normal activity in all soft tissue regions. Scattered subcentimeter hypodensities lesions are unchanged compared to prior PET/CT andconsistent with simple cysts. Nonobstructing 3 mm left renal calculus. Diverticulosiswithout diverticulitis. Stable 3.1 cm infrarenal aortic aneurysm startingapproximately 5 cm below the origin of the left renal artery. SKELETON/EXTREMITIES: Decreased marrow activity in the lower cervical and upper thoracic spine consistent with postradiation change.Normal activity in all other regionsof the axial and visualized appendicular skeleton. IMPRESSION 1. Marked interval improvement with only a mild to moderate degree ofresidual activity in the residual right upper lobe mass which could representpost radiation inflammation, however, residual active malignancy not excluded. 2. Post radiation inflammation in the remainder of the right upperlobe. 3. No distant sites of metastasis. I have personally reviewed the image(s) and the residents interpretationand agree with the findings, Tino Gallardo at 10/14/2018 3:26 PM Thank you for letting us participate [...] Dose Rate Site fludeoxyglucose (F-18) FDG injection 11.6 mCi 11.6 mCi, Intravenous, ONCE PRN, 1 dose, Starting on Wed10/14/18 at 1144, Until Wed10/14/18 at 0959, Per Protocol, Routine Given 10/14/2018 9:59 AM EDT 11.6 mCi documented in this encounter Care Teams Insurance Verification Clerk Relationship Specialty Start Date End Date Nataliya Messina MD [address] [place] [address] PCP - General 10/02/11 01/11/22 documented as of this encounter
--- OUTSIDE RECORDS SUMMARY | 2024-01-05 02:45 | XMS_ITS | Encounter Summary ---
Author Organization [facility] Address [facility] [place] [address] Care Team Providers Care Kick Press Setter Name Role Phone Nataliya Messina MD Primary Care Provider Encounter Details Date Type Department Care Team (Late Contact Info) Description 08/15/2018 Orders Only Hematology/Oncology at [address] [phone] Heber Phillips MD [facility] HEMATOLOGY/[place] [address] Small cell lung cancer, right upper lobe [...] AM EDT Appointment Hematology [place] [address] 01/21/2024 10:[address] [place] [phone] Heber Phillips MD [facility] HEMATOLOGY/[place] [address] 03/28/2024 10:00 AM EDT Office Visit Hematology/Oncology at [address] [address] Heber Phillips MD [facility] HEMATOLOGY/[place] [address] Isabella Baker APRN [facility] [place] [address] documented as of this encounter Visit Diagnoses Diagnosis Small cell lung cancer, right upper lobe documented in this encounter Care Teams Kick Press Setter Relationship Specialty Start Date End Date Nataliya Messina MD [address] [place] [address] PCP - General 10/02/11 01/11/22 documented as of this encounter
--- OUTSIDE RECORDS SUMMARY | 2024-01-05 02:45 | XMS_ITS | Encounter Summary ---
Author Organization [facility] Address [facility] [place] [address] Care Team Providers Care Contracts Law Professor Name Role Phone Nataliya Messina MD Primary Care Provider [phone] Reason for Visit * Reason Comments Chemotherapy * Treatment/Therapy Plan Authorization (Routine) - Closed Specialty Diagnoses / Procedures Referred By Keven lozano Referred To Contact Diagnoses Small cell lung cancer, right upper lobe Heber Phillips MD [facility] DR HEMATOLOGY/[place] [address] St Hem Onc Office [address] [place] [phone] Referral ID Status Reason Start Date Expiration Date Visits Re quested Visits Authorized [id number] Closed 01/20/2018 01/20/2019 1 1 Encounter Details Date Type Department Care Team (Late st Contact Info) Description 03/10/2018 10:30 AM EDT Infusion Hematology Oncology at [address] [address] Small cell lung cancer, right [...] Sign Reading Time Taken Comments Blood Pressure 150/68 03/10/2018 10:15 AM EDT Pulse 74 03/10/2018 10:15 AM EDT Temperature 36.8 ??C (98.2 ??F) 03/10/2018 10:15 AM E DT Respiratory Rate 18 03/10/2018 10:15 AM EDT Oxygen Saturation 99% 03/10/2018 10:15 AM EDT Inhaled Oxygen Concentration - - Weight 76.2 kg (168 lb) 03/10/2018 10:15 AM EDT Height 168 cm (5' 6.14) 03/10/2018 10:15 AM EDT Body Mass Index 27 03/10/2018 10:15 AM EDT documented in this encounter Progress Notes * Alyssa Irene RN - 03/10/2018 10:30 AM EDT INFUSION THERAPY ADMINISTRATION NOTES DIAGNOSIS: SCLC CYCLE #: Cycle 3, Day 3 REASON FOR VISIT: ETOP SUBJECTIVE: Hieu offers no complaints. OBJECTIVE: VSS. LAB DATA: From 03/07/18--WBC - 3.68, H/H - 10.5/31.4, Plt Ct - 270, ANC - 1.66, Lytes wnl, BUN/CR - 12/1.00 IV ACCESS: Port accessed 03/08, flushes readily with brisk blood return. Pre administration: Chemotherapy orders independently verified for drug name, route, and dosage per patient's height, weight and BSA by Alyssa Irene RN and Flynn Bautista [facility]. REACTIONS (DESCRIPTION, TIME, INTERVENTION AND EFFECTIVENESS) none ASSESSMENT: Hieu was awake, alert and tolerated treatment well. Port flushed with 20 cc of NS and 500 units ofheparin and deaccessed. PLAN: Return to clinic as scheduled. documented in this encounter Plan of Treatment Upcoming Encounters Date Type Department Care Team (Late st Contact Info) Description 01/10/2024 7:45 AM EDT Appointment Hematology [place] [address] 01/21/2024 10:[address] [place] [address] Heber Phillips MD [facility] HEMATOLOGY/[place] [address] 03/28/2024 10:00 AM EDT Office Visit Hematology/Oncology at [address] [phone] Heber Phillips MD [facility] HEMATOLOGY/[place] [address] Isabella Baker APRN [facility] [place] [address] documented as of this encounter Visit Diagnoses Diagnosis Small cell lung cancer, right upper lobe documented in this encounter Administered Medications Inactive Administered Medications - up to 3 most recent administrations Medication Order MAR Action Action Date Dose Rate Site dexamethasone (DECADRON) injection 10 mg 10 mg, Intravenous, ONCE, 1 dose, On Federica 03/10/18 at 1115, Administer prior to chemotherapy Given 03/10/2018 11:25 AM EDT 10 mg etoposide (VEPESID) 185 mg in sodium chloride 0.9% Non-PVC 509.25 mL chemo infusion 185 mg (100 mg/m2/dose ? 1.85 m2 Treatment Plan BSA from Recorded weight), Intravenous, ONCE, 1 dose, On Federica 03/10/18 at 1230, Administer over 120 Minutes New Bag 03/10/2018 12:28 PM EDT 185 mg 255 mL/hr heparin, porcine 100 unit/mL flush 500 Units 500 Units, Intravenous, ONCE PRN, Starting on Federica 03/10/18 at 1055, Until Federica 03/10/18 at 1934, Line Care, Refer to Intravenous (IV) Procedure: Accessing Implanted Vascular Access Devices (794) procedure and/or Intravenous (IV) Job Aid: Adult Flushing & Catheter Care (5240) job aid for additional information regarding guidelines and administration., Routine Given 03/10/2018 2:45 PM EDT 500 Units sodium chloride 0.9 % flush 5-20 mL 5-20 mL, Intravenous, EVERY 1 MIN PRN, Starting on Federica 03/10/18 at 1055, Until Federica 03/10/18 at 1934, Line Care, Flush pertains to all indwelling lines. Flush per protocol found in the job aid using the link provided on this medication record. Refer to Intravenous (IV) Job Aid: Adult Flushing & Catheter Care (3155) job aid for additional information regarding guidelines and administration., Routine Given 03/10/2018 2:45 PM EDT 20 mLs documented in this encounter Care Teams Contracts Law Professor Relationship Specialty Start Date End Date Nataliya Messina MD [address] [place] [address] [address] [place] [address] PCP - General 10/02/11 01/11/22 documented as of this encounter
--- OUTSIDE RECORDS SUMMARY | 2024-01-05 02:45 | XMS_ITS | Encounter Summary ---
Author Organization [facility] [place] [address] Care Team Providers Care Sand Shoveler Name Role Phone Nataliya Messina MD Primary Care Provider [phone] Encounter Details Date Type Department Care Team (Latest Contact Info) Description 03/25/2018 10:30 AM EDT Clinical Support Hematology/Oncology at [address] [address] Small cell [...] Progress Notes * Shira Curry RD - 03/25/2018 10:30 AM EDT [facility] Dietitian Follow Up Assessment Seen By: Leona Curry MS, RD, BOAT DETAILER, LD Patient and diagnosis: High-grade neuroendocrine cancer [...] right upper lobe C34.11 ??? Dehydration E86.0 Meds: reviewed Labs: reviewed Ht: Estimated body mass index is 25.4 kg/(m^2) as calculated from the following: Height as of 03/21/18: 170.2 cm (5' 7). Weight as of 03/24/18: 73.6 kg (162 lb 3.2 oz). Wt: 03/24/18: 4.6 % decr in 2 weeks; severe Wt Readings from Last 3 Encounters: 03/24/18 73.6 kg (162 lb 3.2 oz) 03/21/18 74.2 kg (163 lb 8 oz) 03/17/18 75.4 kg (166 lb 3.2 oz) Wt Hx: UBW: 160- 165 lbs % UBW: IBW: 62.6 kg+/- 10% % IBW: ___ Edema ___ Ascites ___Muscle wasting Calorie needs: 1600 - 1900 Protein needs: 94 Fluid needs: 1.6 - 1.9 L Food Intake: Sticking to soft foods. Am: banana - took a while and hurt like hell, 8 oz water, coffee Noon: napped through it, then had blueberry muffin when he woke up. Pm: vegetable beef soup ~ 100 cals. Snacks: addicted to little apple pies, ring dings, cinnamon rolls. Had apple pie, cabot sharp cheddar. Fluids: coffee: 1-2 cups, Gaterade - 1.5 bottles of 12 OZ water - room temp ~ 2, 12-16 oz bottles Supplements/Frequency: hasn't tried these ___ Ensure/Plus ___ Boost/Plus ___ CIB - has this, hasn't started drinking; thought he needed a air tank assembler. ___ Other: Teas, vitamins, or other nutritional supplements: MgCl, fiber + Food allergies or avoidances: salmon, avocado, Appetite: Good, unrestricted with intake. Baseline protions Nausea: denies Vomiting: denies Chewing: denies Dentition: dentures - fit ok Swallowing: + heartburn; increasing esophagitis. Trouble with larger meds. He's taking carafate 3-4times a day and the BMX about twice a day and doesn't feel it helps much. liquid oxycodone 5 mg Q 4hrs PRN. Taste Changes: denies - but can't eat slim jims anymore. Bowels: Baseline: 2 times/d. Takes fiber supplement QD. Picking up miralax today Other: sleeping well when he sleeps. Food availability/purchasing, meal planning and preparation: He does, lives alone. Depression: Social Support: Economic Issues: Physical Activity: playing (stacking) with wood, raking - recently had dooryard excavated and remodeled. Level of Motivation/Readiness to Change: Nutrition Diagnosis: 03/24/18: Weight decrease in two weeks. He is scheduled to complete treatment on 03/29/18. Unable to drink colder things. We discussed warming up CIB w/ milk to drink like a hot cocoa. He liked that idea. Sticking to softer foods. He was accompanied by his two sisters, which are very supportive. 03/10/18: Weight gain. Appetite has not been [...] Will follow up with Mr. Tillman in 1-2 week (s) to re-evaluate. I have provided him with my card and contact information should he have any questions in the mean time. Thank you for this consult. documented in this encounter Plan of Treatment Upcoming Encounters Date Type Department Care Team (Late st Contact Info) Description 01/10/2024 7:45 AM EDT Appointment [place]ology [place] [address] 01/21/2024 10:[address] [place] [place] [address] Heber Phillips MD [facility] DR HEMATOLOGY/[place] [address] 03/28/2024 10:00 AM EDT Office Visit Hematology/Oncology at [address] [address] Heber Phillips MD [facility] DR HEMATOLOGY/[place] [address] Isabella Baker APRN [facility] [place] [address] documented as of this encounter Visit Diagnoses Diagnosis Small cell lung cancer, right upper lobe documented in this encounter Care Teams Sand Shoveler Relationship Specialty Start Date End Date Nataliya Messina MD [address] [place] [address] [address] [place], [place] [address] PCP - General 10/02/11 01/11/22 documented as of this encounter
--- OUTSIDE RECORDS SUMMARY | 2024-01-05 02:45 | XMS_ITS | Encounter Summary ---
Author Organization [facility] [place] [address] Care Team Providers Care Master Plumber Name Role Phone Nataliya Messina MD Primary Care Provider [phone] Encounter Details Date Type Department Care Team (Latest Contact Info) Description 04/06/2018 - 04/06/2018 11:59 PM EDT Hospital Encounter [place] [phone] Mikhail Cadena MD [address] [place] [address] DR RADIATION ONCOLOGY [place], [place] [id number] Discharge Disposition: Home Social History Tobacco Use [...] mg Tablet Take by mouth. 11/02/2016 10/13/2022 oxyCODONE (ROXICODONE) 5 mg/5 mL SolutionIndications:Sriram n with swallowing,Small cell lung cancer, right upper lobe,Severe swallowing dysfunction Take 5 mLs by mouth every 4 hours as needed for Pain. 100 mL 03/22/2018 05/05/2018 lidocaine (XYLOCAINE) 2 % SolutionIndications:Sma ll cell lung cancer, right upper lobe,Pain with [...] 3 02/15/2018 09/27/2018 prochlorperazine (COMPAZINE) 10 mg TabletIndications:Small cell lung cancer Take 1 tablet by [...] EDT Appointment Hematology [place] [address] 01/21/2024 10:[address] [place] [address] Heber Phillips MD [facility] DR HEMATOLOGY/[place] [address] 03/28/2024 10:00 AM EDT Office Visit Hematology/Oncology at [address] [phone] Heber Phillips MD [facility] HEMATOLOGY/[place] [address] Isabella Baker APRN [facility] [place] [address] documented as of this encounter Procedures Procedure Name Priority Date/Time Associated Diagnosis Comments FILM LIBRARY STORAGE ONLY MR HEAD Routine 04/06/2018 12:00 AM EDT documented in this encounter Results * Film Library- Storage Only MR Head (04/06/2018 12:00 AM EDT) Narrative CHUY - 04/07/2018 2:09 PM EDT This exam is for storage only and is auto-finalizing. Mikhail Cadena MD IMG FILM LIBRARY ORD ERABLES [place], [place] documented in this encounter Visit Diagnoses Not on filedocumented in this encounter Care Teams Master Plumber Relationship Specialty Start Date End Date Nataliya Messina MD [address] [place] [address] 1 [place] [address] PCP - General 10/02/11 01/11/22 documented as of this encounter
--- OUTSIDE RECORDS SUMMARY | 2024-01-05 02:45 | XMS_ITS | Encounter Summary ---
Author Organization [facility] [place] [address] Care Team Providers Care Hose Maker Name Role Phone Nataliya Messina MD Primary Care Provider [phone] Reason for Visit * Reason Comments Follow-up 3 months Coronary Artery Disease Encounter Details Date Type Department Care Team (Late st Contact Info) Description 07/04/2018 2:20 PM EST Office Visit Cardiology at [address] [phone] Lauri Winn Jr., MD [address] [place] [phone] Coronary artery disease, angina presence unspecified, unspecified vessel or lesion type, unspecified whether tonto apache or transplanted heart; Hypertension, unspecified type Social History Tobacco Use Types Packs/Day [...] Sign Reading Time Taken Comments Blood Pressure 138/64 07/04/2018 2:21 PM EST Pulse 88 07/04/2018 2:21 PM EST Temperature - - Respiratory Rate 14 07/04/2018 2:21 PM EST Oxygen Saturation - - Inhaled Oxygen Concentration - - Weight 75.3 kg (166 lb) 07/04/2018 2:21 PM EST Height 170.2 cm (5' 7) 07/04/2018 2:21 PM EST Body Mass Index 26 07/04/2018 2:21 PM EST documented in this encounter Progress Notes * Lauri Winn Jr., MD - 07/04/2018 2:20 PM EST Subjective: Patient ID: Hieu Tillman is a 62 y.o. male. Chief Complaint Patient presents with ??? Follow-up 3 months ??? Coronary Artery Disease HPI He has had no chest pain and his dyspnea is better except in cold air. He is swallowing normally. He denies palpitations or dizziness. He has had no edema, PND or orthopnea. His energy level is slowly improving. Review of Systems no bruising or bleeding, denies other issues Allergies Allergen Reactions ??? Contrast [Iodine And Iodide Containing Products] Anaphylaxis and Hives He has tolerated IV dye since with premedication. History of anaphylaxis as well. Current Outpatient Medications Medication Sig Dispense Refill ??? citalopram (CELEXA) 20 mg Tablet Take 1 tablet by mouth daily. If no effect after 7d can increase to 40mg 60 tablet 3 ??? magnesium chloride (MAG-DELAY ORAL) Take 60 [...] to right leg Objective: Physical Exam BP 138/64 Pulse 88 Resp 14 Ht 170.2 cm (5' 7) Wt 75.3 kg (166 lb) BMI 26.00 kg/m?? NAD No JVD/HJR Chest clear, no wheezing Cor RR, no murmur Abd benign Ext no edema Assessment and Plan: Well controlled angina- encouraged to be as active as he can Good BP Follow up 10/2018 documented in this encounter Plan of Treatment Upcoming Encounters Date Type Department Care Team (Late st Contact Info) Description 01/10/2024 7:45 AM EDT Appointment Hematology [place] [address] 01/21/2024 10:[address] [place] [address] Heber Phillips MD [facility] HEMATOLOGY/[place] [address] 03/28/2024 10:00 AM EDT Office Visit Hematology/Oncology at [address] [address] Heber Phillips MD [facility] DR HEMATOLOGY/[place] [address] Isabella Baker APRN [facility] [place] [address] documented as of this encounter Visit Diagnoses Diagnosis Coronary artery disease, angina presence unspecified, unspecified vessel or lesion type, unspecified whether tonto apache or transplanted heart Hypertension, unspecified type documented in this encounter Care Teams Hose Maker Relationship Specialty Start Date End Date Nataliya Messina MD [address] [place] [address] PCP - General 10/02/11 01/11/22 documented as of this encounter
--- OUTSIDE RECORDS SUMMARY | 2024-01-05 02:45 | XMS_ITS | Encounter Summary ---
Author Organization [facility] [place] [address] Care Team Providers Care Orthodontic Band Maker Name Role Phone None Primary Care Provider Unavailabl e Reason for Visit * Reason Comments Medication Refill Encounter Details Date Type Department Care Team (Late Contact Info) Description 04/23/2018 Refill Radiation Oncology at [address] [phone] Mikhail Cadena MD [address] [place] [address] DR RADIATION ONCOLOGY [place], [place] [phone] Small cell lung cancer, right upper lobe; [...] AM EDT Appointment Hematology [place] [phone] 01/21/2024 10:[address] [place] [place] [phone] Heber Phillips MD [facility] DR HEMATOLOGY/[place] [address] 03/28/2024 10:00 AM EDT Office Visit Hematology/Oncology at [address] [phone] Heber Phillips MD [facility] DR HEMATOLOGY/[place] [address] Isabella Baker APRN [facility] [place] [address] documented as of this encounter Visit Diagnoses Diagnosis Small cell lung cancer, right upper lobe Pain with swallowing Dysphagia, unspecified documented in this encounter Care Teams Orthodontic Band Maker Relationship Specialty Start Date End Date None None PCP - General 01/12/22 11/02/22 documented as of this encounter
--- OUTSIDE RECORDS SUMMARY | 2024-01-05 02:45 | XMS_ITS | Encounter Summary ---
Author Organization [facility] [place] [address] Care Team Providers Care Business Analysis Specialist Name Role Phone Nataliya Messina MD Primary Care Provider [phone] Encounter Details Date Type Department Care Team (Late Contact Info) Description 08/18/2018 Orders Only Hematology [place] [phone] Monica Smith Social History Tobacco Use Types Packs/Day Years [...] AM EDT Appointment Hematology [place] [address] 01/21/2024 10:[address] [place] [phone] Heber Phillips MD [facility] HEMATOLOGY/[place] [address] 03/28/2024 10:00 AM EDT Office Visit Hematology/Oncology at [address] [address] Heber Phillips MD [facility] DR HEMATOLOGY/[place] [address] Isabella Baker APRN [facility] [place] [address] documented as of this encounter Visit Diagnoses Not on filedocumented in this encounter Care Teams Business Analysis Specialist Relationship Specialty Start Date End Date Nataliya Messina MD [address] [place], [place] [address] PCP - General 10/02/11 01/11/22 documented as of this encounter
--- OUTSIDE RECORDS SUMMARY | 2024-01-05 02:45 | XMS_ITS | Encounter Summary ---
[place] [address] Care Team Providers Care Classified Ad Taker Name Role Phone Nataliya Messina MD Primary Care Provider [phone] Encounter Details Date Type Department Care Team (Late st Contact Info) Description 03/31/2018 Notes Only Hematology/Oncology at [address] [phone] Mya Saeed MSW OFFICE OF [...] as of this encounter Miscellaneous Notes * Advance Care Plan Note - Mya Saeed MSW - 03/31/2018 11:29 AM EDT First Steps Advance Care Planning Conversation Names and relationships of those present for the conversation: Hieu Tillman and sister Glenys Tillman; SUNNI Prado The conversation followed the format of a Respecting Choices ??: [] First Steps Conversation for Healthy Adult [x]First Steps Conversation for an Adult with a Chronic Illness The following topics were covered (check topics covered): [x] The goals of the advance care planning meeting were clarified with attendees: To make 3 decisions (choosing an agent, consider care decisions in the face of severe neurologic injury or illness, and identifying personal or sikh beliefs that might affect decisions) To understand the role of the health care agent To complete the advance directive as appropriate [x] The patient???s motivation, knowledge, and/or belief about advance care planning were assessed. [x] An understanding of the role of the health care agent was assessed. [x] Experiences with sudden neurologic injury or illness were explored. [x] Goals of medical care for severe neurologic injury were explored. [x] An opportunity was offered to explore how sikh, cultural, or personal beliefs would affectdecisions for future care. For those with Chronic illness the following was addressed: [x] The patient???s understanding of their medical condition was explored. [x] The concept of what it means ???to live well?? was explored with the patient. [x] Assistance was provided with the decision regarding CPR: [] Understanding of CPR, benefits and burdens [] Explored expected goals of CPR and clarifying unacceptable outcomes [] Explored fears and concerns regarding CPR [] Reviewed previous Advance Care Planning documents [x] Assistance was provided in completing all or part of the advance directive. [x] Recommendations were made for communicating the plan and for making copies for the health care agent, personal physician, and others as appropriate (e.g., prosecuting attorney, hospital) Health care agent is present: [place] [facility] Care Agent: Williams Tillman, son; Sancho Tillman, son and Prisca Cui, step daughter Additional information: Goals and values identified: Fears and concerns identified: Treatment decisions: See advance directive document in medical record Follow up: Conversation status: Final conversation Advanced directive was completed: Yes Time for conversation: 30-45 minutes documented in this encounter Plan of Treatment Upcoming Encounters Date Type Department Care Team (Late st Contact Info) Description 01/10/2024 7:45 AM EDT Appointment Hematology [place] [address] 01/21/2024 10:[address] [place] [address] Heber Phillips MD [facility] DR HEMATOLOGY/[place] [address] 03/28/2024 10:00 AM EDT Office Visit Hematology/Oncology at [address] [phone] Heber Phillips MD [facility] DR HEMATOLOGY/[place] [address] Isabella Baker APRN [facility] [place] [address] documented as of this encounter Visit Diagnoses Not on filedocumented in this encounter Care Teams Classified Ad Taker Relationship Specialty Start Date End Date Nataliya Messina MD [address] [place] [address] [phone] PCP - General 10/02/11 01/11/22 documented as of this encounter
--- OUTSIDE RECORDS SUMMARY | 2024-01-05 02:45 | XMS_ITS | Encounter Summary ---
Author Organization [facility] [place] [address] Care Team Providers Care Supervisor Cytogenetic Laboratory Name Role Phone Nataliya Messina MD Primary Care Provider [phone] Reason for Referral * Diagnostic Test (Routine) - Closed Specialty Diagnoses / Procedures Referred By Contac t Referred To Contact Radiology Diagnoses Small cell lung cancer, right upper lobe Procedures PET CT Fry Skull Base to Mid-Thigh Heber Phillips MD [facility] DR HEMATOLOGY/[place] [address] [place] [address] Referral ID Status Reason Start Date Expiration Date V isits Requested Visits Authorized [id number] Closed Specialty Service Requested 09/27/2018 09/27/2019 1 1 Encounter Details Date Type Department Care Team (Late st Contact Info) Description 09/27/2018 10:30 AM EDT Office Visit Hematology/Oncology at [address] [phone] Heber Phillips MD [facility] HEMATOLOGY/[place] [address] Small cell lung cancer, right upper lobe; [...] Sign Reading Time Taken Comments Blood Pressure 131/51 09/27/2018 10:34 AM EDT Pulse 88 09/27/2018 10:34 AM EDT Temperature 36.4 ??C (97.5 ??F) 09/27/2018 10:34 AM E DT Respiratory Rate 16 09/27/2018 10:34 AM EDT Oxygen Saturation 97% 09/27/2018 10:34 AM EDT Inhaled Oxygen Concentration - - Weight 78.9 kg (174 lb) 09/27/2018 10:34 AM EDT Height 170.2 cm (5' 7.01) 09/27/2018 10:34 AM E DT Body Mass Index 27.25 09/27/2018 10:34 AM EDT documented in this encounter Progress Notes * Heber Phillips MD - 09/27/2018 10:30 AM EDT Images from the original note [...] cell lung cancer and discussion of restaging CT scan. Mr. Tillman feels more short of breath on exertion. Complaints on mild to moderate dry cough. Denies any nausea, vomiting or pain. No fever or chills. No new pain. No other focal complaints. PMH: No interval changes since last visit [place] in 2013 status post 2 stents placement, [...] radiating to right leg ??? Myocardial infarction MT about 6 years ago @ [facility] [place] stents ??? 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 Marital [...] Last attempt to quit: 09/11/2013 Years since quittin.0 ??? Smokeless tobacco: Never Used Substance and [...] file Gets together: Not on file Attends congregation service: Not on file Active member of [...] Social History Narrative Lives with his in [place], [place]. 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 [...] well. Medications: Your Medications Accurate as of 09/27/18 10:46 AM. If you have any questions, ask [...] puff into the lungs daily. Generic drug: fluticasone-vilanterol 1 puff Refills: 0 clopidogrel 75 mg [...] Neurological: Negative. Hematological: Negative for adenopathy. BP 131/51 (Patient Position: Sitting) Pulse 88 Temp 36.4 ??C (97.5 ??F) (Oral) Resp 16 Ht 170.2 cm (5' 7.01) Wt 78.9 kg (174 lb) SpO2 97% BMI 27.25 kg/m?? Wt Readings from Last 3 Encounters: 09/27/18 78.9 kg (174 lb) 07/04/18 75.3 kg (166 lb) 05/26/18 76.1 kg (167 lb 12.8 oz) Physical Exam Constitutional: He [...] content normal. His affect is labile. Labs: 08/16/2018 sodium 134, BUN 21, creatinine 1.12, calcium 9.4, TB 0.2, AST 25, ALT 35, alkaline phosphatase 121, albumin 3.7 WBC 13.07. Hemoglobin 13.4, platelet count 438 05/18/2018 WBC 7.13, hemoglobin 11.1, platelet count 356, ANC 5.48, sodium 137, BUN 26, creatinine 1.26, calcium 9.0, AST 24, ALT 39, alkaline phosphatase 104, total protein 7.4, albumin 3.9 Imagin08/18/2018 brain MRI: Impression: Stable mild atrophy and [...] including history of stroke, severe peripheralvascular disease, MT status post stent placement and COPD. His [...] opacities on CT scan May 18, 2018. We discussed to option either to obtain PET scan to see if any avidity in the right lung which can be related to recurrence versus observation and repeating CT scan 3 months. I recommended to obtain PET scan. Mr. Tillman agrees with the plan. #Depression: feels better on Celexa Plan: 1. PET scan in [place] within 2-3 weeks 2. Next visit with CBc and CMP within a a week after PET scan The plan was discussed with the patient in details. All questions were answered to patient's satisfaction. documented in this encounter Plan of Treatment Upcoming Encounters Date Type Department Care Team (Late st Contact Info) Description 01/10/2024 7:45 AM EDT Appointment [place]ology [place] [address] 01/21/2024 10:[address] [place] [place] [address] Heber Phillips MD [facility] DR HEMATOLOGY/[place] [address] 03/28/2024 10:00 AM EDT Office Visit Hematology/Oncology at [address] [phone] Heber Phillips MD [facility] DR HEMATOLOGY/[place] [address] Isabella Baker APRN [facility] [place] [address] documented as of this encounter Results * PET CT Fry Skull Base to Mid-Thigh (10/14/2018 11:44 AM [...] 10/14/2018 3:26 PM EDT EXAMINATION: PET CT SCIPIO SKULL BASE TO MID-THIGH CLINICAL HISTORY: Restaging of limited stage small cell lung cancer, status post concurrent chemoradiation TECHNIQUE: Following IV injection of 59-tvzxtb-7-deoxyglucose (FDG) a standard uptake of approximately 60 [...] tip terminating in the proximal right atrium. Rincon coronary artery and aortic calcification. Note of [...] Gallardo MD - 10/14/2018 EXAMINATION: PET CT SCIPIO SKULL BASE TO MID-THIGH CLINICAL HISTORY: Restaging of limited stage small cell lung cancer,status post concurrent chemoradiation TECHNIQUE: Following IV injection of 76-xboogu-9-deoxyglucose (FDG) astandard uptake of approximately 60 minutes, [...] lobe documented in this encounter Care Teams Supervisor Cytogenetic Laboratory Relationship Specialty Start Date End Date Nataliya Messina MD [address] [place] [address] PCP - General 10/02/11 01/11/22 documented as of this encounter
--- OUTSIDE RECORDS SUMMARY | 2024-01-05 02:45 | XMS_ITS | Encounter Summary ---
Author Organization [place] [address] Care Team Providers Care Pharmacy Clinical Specialist Name Role Phone Nataliya Messina MD Primary Care Provider [phone] Encounter Details Date Type Department Care Team (Latest Contact Info) Description 05/05/2018 1:30 PM EST Clinical Support Hematology/Oncology at [address] [phone] Small cell [...] Progress Notes * Shira Curry RD - 05/05/2018 1:30 PM EST [facility] Dietitian Follow Up Assessment Seen By: Leona Curry MS, RD, TAG CLERK, LD Patient and diagnosis: High-grade neuroendocrine cancer of right lung, limited stage. Completed cCRT in Mar 2018. Assessment: HPI: Patient Active Problem List Diagnosis [...] reviewed Ht: Estimated body mass index is 26.36 kg/m?? as calculated from the following: Height as of 04/12/18: 168 cm (5' 6.14). Weight as of an earlier encounter on 05/05/18: 74.4 kg (164 lb). Wt: 03/24/18: 4.6 % decr in 2 weeks; severe Wt Readings from Last 3 Encounters: 05/05/18 74.4 kg (164 lb) 04/12/18 73.5 kg (162 lb) 04/07/18 73.4 kg (161 lb 12.8 oz) Wt Hx: UBW: 160- 165 lbs % UBW: IBW: 62.6 kg+/- 10% % IBW: ___ Edema ___ Ascites ___Muscle wasting Calorie needs: 1600 - 1900 Protein needs: 94 Fluid needs: 1.6 - 1.9 L Food Intake: Sticking to soft foods. Am: Noon: . Pm: Snacks: addicted to little apple pies, ring dings, cinnamon rolls. Had apple pie, cabot sharp cheddar. Fluids: coffee: 1-2 cups, Gaterade - 1.5 bottles of 12 OZ water - room temp ~ 2, 12-16 oz bottles Supplements/Frequency: hasn't tried these ___ Ensure/Plus ___ Boost/Plus ___ CIB - has this, hasn't started drinking; thought he needed a spice blender. ___ Other: Teas, vitamins, or other nutritional [...] Level of Motivation/Readiness to Change: Nutrition Diagnosis: 05/05/18: Weight starting to rebound. Unable to see pt as he did not stay for scheduled encounter. 03/24/18: Weight decrease in two weeks. He [...] Evaluation: Will follow up with Mr. Tillman antoine unless status changes. I have provided him with my card and contact information should he have any questions in the mean time. Thank you for this consult. documented in this encounter Plan of Treatment Upcoming Encounters Date Type Department Care Team (Late st Contact Info) Description 01/10/2024 7:45 AM EDT Appointment H[place]ology [place] [address] 01/21/2024 10:[address] [place] [address] [facility] [address] HEMATOLOGY/[place] [address] 03/28/2024 10:00 AM EDT Office Visit Hematology/Oncology at [address] [phone] [facility] DR HEMATOLOGY/[place] [address] [facility] [place] [address] documented as of this encounter Visit Diagnoses Diagnosis Small cell lung cancer, right upper lobe documented in this encounter Care Teams Pharmacy Clinical Specialist Relationship Specialty Start Date End Date Nataliya Messina MD [address] [place] [address] [address] [place] [address] PCP - General 10/02/11 01/11/22 documented as of this encounter
--- OUTSIDE RECORDS SUMMARY | 2024-01-05 02:45 | XMS_ITS | Encounter Summary ---
Author Organization [facility] [place] [address] Care Team Providers Care Security System Technician Name Role Phone Nataliya Messina MD Primary Care Provider [phone] Encounter Details Date Type Department Care Team (Late st Contact Info) Description 03/29/2018 Notes Only Radiation Oncology at [address] [phone] Susan Larry RN Social History Tobacco Use Types Packs/Day [...] as of this encounter Progress Notes * Susan Larry RN - 03/29/2018 10:18 AM EDT Radiation Oncology Nursing Completion of Treatment Note Pt completed 30 Fxs totaling 6000 cGY to right upper lobe for small cell lung cancer. . . Side effects/problems noted today: Esophagitis. Patient rates pain level 2-3/10 when eating which he reports is tolerable. Is using BMX prn. Not using sucralfate or oxycodone. Teaching and discharge instructions reviewed: Instructed that side effects likely to continue and may worsen following completion of treatment for next few weeks prior to improving. Advised to use prn medications to manage pain of esophagitis as needed. Instructed to contact this clinic should he have any unmanaged symptoms or concerns which he is agreeable to doing and confirms that he has our contact numbers. Expected follow up/referrals: Dr. Cadena 04/07/18. Thu Saldana APRN today. Patient has our contact numbers Patient/family response to instructions: Patient verbalized understanding of these instructions. documented in this encounter Plan of Treatment Upcoming Encounters Date Type Department Care Team (Late st Contact Info) Description 01/10/2024 7:45 AM EDT Appointment Hematology [place] [address] 01/21/2024 10:[address] [place] [place] [address] Heber Phillips MD [facility] DR HEMATOLOGY/[place] [address] 03/28/2024 10:00 AM EDT Office Visit Hematology/Oncology at [address] [phone] Heber Phillips MD [facility] DR HEMATOLOGY/[place] [address] Isabella Baker APRN [facility] [place] [address] documented as of this encounter Visit Diagnoses Not on filedocumented in this encounter Care Teams Security System Technician Relationship Specialty Start Date End Date Nataliya Messina MD [address] [place] [address] 1 [place], [place] [id number] PCP - General 10/02/11 01/11/22 documented as of this encounter
--- OUTSIDE RECORDS SUMMARY | 2024-01-05 02:45 | XMS_ITS | Encounter Summary ---
Author Organization [facility] Address [facility] [place] [address] Care Team Providers Care Design Director Name Role Phone Nataliya Messina MD Primary Care Provider Reason for Visit * Reason Comments Chemotherapy Cycle 4, Day 3 -- Et oposide * Treatment/Therapy Plan Authorization (Routine) - Closed Specialty Diagnoses / Procedures Referred By Keven lozano Referred To Contact Diagnoses Small cell lung cancer, right upper lobe Heber Phillips MD [facility] HEMATOLOGY/[place] [address] St Hem Onc Office [address] [place] [phone] Referral ID Status Reason Start Date Expiration Date Visits Re quested Visits Authorized [id number] Closed 01/20/2018 01/20/2019 1 1 Encounter Details Date Type Department Care Team (Late st Contact Info) Description 04/01/2018 10:00 AM EDT Infusion Hematology Oncology at [address] [phone] Small cell lung cancer, right [...] Sign Reading Time Taken Comments Blood Pressure 133/70 04/01/2018 9:55 AM EDT Pulse 74 04/01/2018 9:55 AM EDT Temperature 36.3 ??C (97.3 ??F) 04/01/2018 9:55 AM ED T Respiratory Rate 16 04/01/2018 9:55 AM EDT Oxygen Saturation 99% 04/01/2018 9:55 AM EDT Inhaled Oxygen Concentration - - Weight 75.2 kg (165 lb 12.8 oz) 04/01/2018 9:55 AM EDT Height 168 cm (5' 6.14) 04/01/2018 9:55 AM EDT Body Mass Index 26.65 04/01/2018 9:55 AM EDT documented in this encounter Progress Notes * Dung Barajas, RN - 04/01/2018 10:00 AM EDT INFUSION THERAPY ADMINISTRATION NOTES DIAGNOSIS: SCLC CYCLE #: Day 3, Cycle 4 - Etoposide REASON FOR VISIT: To receive chemotherapy. SUBJECTIVE: Hieu offers no complaints. OBJECTIVE: LAB DATA: (03/28)- WBC 4.43; PLT 292; ANC 2.75; BUN 19; Creat 1.02 IV ACCESS: Implanted port, flushes readily with brisk blood return. Pre administration: Chemotherapy orders independently verified for drug name, route, and dosage per patient's height, weight and BSA by Jacob Hamm RN and Arjun Benitez [facility]. REACTIONS (DESCRIPTION, TIME, INTERVENTION AND EFFECTIVENESS) none ASSESSMENT: Hieu was awake, alert and tolerated treatment well. Port flushed with 20 ml NS and 500 units Heparin then de accessed. PLAN: Return to clinic per routine. documented in this encounter Plan of Treatment Upcoming Encounters Date Type Department Care Team (Late st Contact Info) Description 01/10/2024 7:45 AM EDT Appointment [place] [address] 01/21/2024 10:[address] [place] [place] [phone] Heber Phillips MD [facility] DR HEMATOLOGY/[place] [address] 03/28/2024 10:00 AM EDT Office Visit Hematology/Oncology at [address] [phone] Heber Phillips MD [facility] HEMATOLOGY/[place] [address] Isabella Baker APRN [facility] [place] [address] documented as of this encounter Visit Diagnoses Diagnosis Small cell lung cancer, right upper lobe documented in this encounter Administered Medications Inactive Administered Medications - up to 3 most recent administrations Medication Order MAR Action Action Date Dose Rate Site dexamethasone (DECADRON) injection 10 mg 10 mg, Intravenous, ONCE, 1 dose, On Wed04/01/18 at 1015, Administer prior to chemotherapy Given 04/01/2018 10:22 AM EDT 10 mg etoposide (VEPESID) 185 mg in sodium chloride 0.9% Non-PVC 509.25 mL chemo infusion 185 mg (100 mg/m2/dose ? 1.85 m2 Treatment Plan BSA from Recorded weight), Intravenous, ONCE, 1 dose, On Wed04/01/18 at 1130, Administer over 120 Minutes New Bag 04/01/2018 10:50 AM EDT 185 mg 254.6 mL/hr documented in this encounter Care Teams Design Director Relationship Specialty Start Date End Date Nataliya Messina MD [address] [place], [place] [address] PCP - General 10/02/11 01/11/22 documented as of this encounter
--- OUTSIDE RECORDS SUMMARY | 2024-01-05 02:45 | XMS_ITS | Encounter Summary ---
Author Organization [facility] Address [facility] [place] [address] Care Team Providers Care Powder Coater Name Role Phone Nataliya Messina MD Primary Care Provider [phone] Encounter Details Date Type Department Care Team (Late st Contact Info) Description 05/26/2018 3:00 PM EST Office Visit Hematology/Oncology at [address] [phone] Heber Phillips MD [facility] [place]ATOLOGY/[place] [address] Small cell lung cancer, right upper lobe (Primary Dx) Social History Tobacco Use Types [...] Sign Reading Time Taken Comments Blood Pressure 135/60 05/26/2018 3:20 PM EST Pulse 80 05/26/2018 3:20 PM EST Temperature 36.5 ??C (97.7 ??F) 05/26/2018 3:20 PM ES T Respiratory Rate 18 05/26/2018 3:20 PM EST Oxygen Saturation 97% 05/26/2018 3:20 PM EST Inhaled Oxygen Concentration - - Weight 76.1 kg (167 lb 12.8 oz) 05/26/2018 3:20 PM EST Height 168 cm (5' 6.14) 05/26/2018 3:20 PM EST copied Body Mass Index 26.97 05/26/2018 3:20 PM EST documented in this encounter Progress Notes * Heber Phillips MD - 05/26/2018 3:00 PM EST Images from the original note were not included. Diagnosis: High-grade neuroendocrine cancer of right lung, limited stage, clinical: stage IIIA (cT3, cN1, cM0) Subjective: I feel fine HPI:Hieu Tillman is 62 y.o. M referred [...] and discussion of restaging CT scan. Mr. Jasmine completed radiation therapy on March 29 and last dose of chemotherapy on April 01. Overall, he feels well. His w has significantly improved.. Denies any nausea, vomiting or pain. No fever or chills. No new pain. No other focal complaints. PMH: No interval changes since last visit [place] in 2013 status post 2 stents placement, [...] radiating to right leg ??? [place] [facility] [place] 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 Marital status: [...] Social History Narrative Lives with his in [place], [place]. 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 [...] well. Medications: Your Medications Accurate as of 05/26/18 11:59 PM. If you have any questions, ask [...] Generic drug: fluticasone-vilanterol 1 puff Refills: 0 citalopram 20 mg Tab Commonly known as: CeleXA Take 1 tablet by mouth daily. If no effect after 7d can increase to 40mg 20 mg Quantity: 60 tablet Refills: 3 clopidogrel 75 mg Tab Commonly known as: [...] by mouth daily. 25 mg Refills: 0 lidocaine 2 % Soln Commonly known as: XYLOCAINE Take 5 mLs by mouth as needed for Pain (Mix 1:1:1 with benadryl & maalox prn throat pain no more than 8 doses a day). 5 mL Quantity: 100 mL Refills: 1 lisinopril 20 mg Tab Commonly known as: PRINIVIL;ZESTRIL Take 1 tablet by mouth daily. 20 mg Quantity: 90 tablet Refills: 3 loperamide 2 mg Cap Commonly known as: IMODIUM Take 2 mg by mouth 4 times daily as needed for Diarrhea. 2 mg Refills: 0 MAG-DELAY ORAL Take 60 mg by mouth. [...] mg Tbec Commonly known as: PROTONIX Take 1 tablet by mouth daily. 40 mg Quantity: 30 tablet Refills: 2 prochlorperazine 10 mg Tab Commonly known as: COMPAZINE Take 1 tablet by mouth every 6 hours as needed for Nausea. 10 mg Quantity: 30 tablet Refills: 3 SPIRIVA WITH HANDIHALER 18 mcg Cpdv Inhale [...] Neurological: Negative. Hematological: Negative for adenopathy. BP 135/60 (Patient Position: Sitting) Pulse 80 Temp 36.5 ??C (97.7 ??F) (Oral) Resp 18 Ht 168 cm (5' 6.14) Comment: copied Wt 76.1 kg (167 lb 12.8 oz) SpO2 97% BMI 26.97 kg/m?? Wt Readings from Last 3 Encounters: 05/26/18 76.1 kg (167 lb 12.8 oz) 05/05/18 74.4 kg (164 lb) 04/12/18 73.5 kg (162 lb) Physical Exam Constitutional: He is oriented [...] content normal. His affect is labile. Labs: 05/18/2018 WBC 7.13, hemoglobin 11.1, platelet count 356, ANC 5.48, sodium 137, BUN 26, creatinine 1.26, calcium 9.0, AST 24, ALT 39, alkaline phosphatase 104, total protein 7.4, albumin 3.9 Imagin05/18/2018 CT scan of chest: Impression: Marked interval [...] including history of stroke, severe peripheralvascular disease, [place] status post stent placement and COPD. His [...] Dr. Cadena. Hieu declined PCI. Mr. Tillman will be on active surveillance with serial CT of torso and brain MRI with 3-4 months for first year. He was instructed to call us anytime if he experience more shortness of breath or new pain. #Depression: feels better on Celexa Plan: 1. Next visit with blood work, CT scan amd brain MRI in 3 months. The plan was discussed with the patient in details. All questions were answered to patient's satisfaction. documented in this encounter Plan of Treatment Upcoming Encounters Date Type Department Care Team (Late st Contact Info) Description 01/10/2024 7:45 AM EDT Appointment Hematology [place] [address] 01/21/2024 10:[address] [place] [address] Heber Phillips MD [facility] DR HEMATOLOGY/[place] [address] 03/28/2024 10:00 AM EDT Office Visit Hematology/Oncology at [address] [phone] Heber Phillips MD [facility] DR HEMATOLOGY/[place] [address] Isabella Baker APRN [facility] [place] [address] documented as of this encounter Visit Diagnoses Diagnosis Small cell lung cancer, right upper lobe- Primary documented in this encounter Care Teams Powder Coater Relationship Specialty Start Date End Date Nataliya Messina MD [address] [place] [address] 1 [place] [address] PCP - General 10/02/11 01/11/22 documented as of this encounter
--- OUTSIDE RECORDS SUMMARY | 2024-01-05 02:45 | XMS_ITS | Encounter Summary ---
Author Organization [facility] [place] [address] Care Team Providers Care Screen Printing Paster Name Role Phone Nataliya Messina MD Primary Care Provider [phone] Encounter Details Date Type Department Care Team (Latest Contact Info) Description 04/01/2018 11:00 AM EDT Clinical Support Hematology/Oncology at [address] [phone] Small cell [...] Progress Notes * Shira Curry RD - 04/01/2018 11:00 AM EDT [facility] Dietitian Follow Up Assessment Seen By: Leona Curry MS, RD, TRUCK MECHANIC, LD Patient and diagnosis: High-grade neuroendocrine cancer [...] reviewed Ht: Estimated body mass index is 26.65 kg/(m^2) as calculated from the following: Height as of an earlier encounter on 04/01/18: 168 cm (5' 6.14). Weight as of an earlier encounter on 04/01/18: 75.2 kg (165 lb 12.8 oz). Wt: 03/24/18: 4.6 % decr in 2 weeks; severe Wt Readings from Last 3 Encounters: 04/01/18 75.2 kg (165 lb 12.8 oz) 03/31/18 74.5 kg (164 lb 3.2 oz) 03/30/18 74.1 kg (163 lb 6.4 oz) Wt Hx: UBW: 160- 165 lbs % UBW: IBW: 62.6 kg+/- 10% % IBW: ___ Edema ___ Ascites ___Muscle wasting Calorie needs: 1600 - 1900 Protein needs: 94 Fluid needs: 1.6 - 1.9 L Food Intake: Sticking to soft foods, cold foods or room temperature. Am: CIB w. Milk. Noon: cheese and ham sandwich - jon and mustard Pm: 2 eggs, fried, corn beef hash Snacks: addicted to little apple pies, ring dings, cinnamon rolls. Had apple pie, cabot sharp cheddar. Fluids: coffee (room temp): 1-2 cups, Gaterade - 1.5 bottles of 12 OZ water - room temp ~ 2, 12-16 oz bottles. 2 beers - lets beer warm up and go flat ([place]). Supplements/Frequency: one/d. ___ Ensure/Plus ___ Boost/Plus ___ CIB - has this, hasn't started drinking; thought he needed a weaver dobby loom. Uses 2% milk. ___ Other: Teas, vitamins, or other nutritional [...] Level of Motivation/Readiness to Change: Nutrition Diagnosis: 04/01/18: Weight rebounding. Eating slower, softer foods, cold foods or room temp. Taking longer toeat. Denies issues w/N/V. Using BMX before meals and works the best. Utilizing CIB w/ milk to help intake. 03/24/18: Weight decrease in two weeks. He [...] Will follow up with Mr. Tillman in 2-4 week (s) to re-evaluate. I have provided him with my card and contact information should he have any questions in the mean time. Thank you for this consult. documented in this encounter Plan of Treatment Upcoming Encounters Date Type Department Care Team (Late st Contact Info) Description 01/10/2024 7:45 AM EDT Appointment Hematology [place] [address] 01/21/2024 10:[address] [place] [address] Heber Phillips MD [facility] DR HEMATOLOGY/[place] [address] 03/28/2024 10:00 AM EDT Office Visit Hematology/Oncology at [address] [address] Heber Phillips MD [facility] DR HEMATOLOGY/[place] [address] Isabella Baker APRN [facility] [place] [address] documented as of this encounter Visit Diagnoses Diagnosis Small cell lung cancer, right upper lobe documented in this encounter Care Teams Screen Printing Paster Relationship Specialty Start Date End Date Nataliya Messina MD [address] [place] [address] [id number] PCP - General 10/02/11 01/11/22 documented as of this encounter
--- OUTSIDE RECORDS SUMMARY | 2024-01-05 02:45 | XMS_ITS | Encounter Summary ---
Author Organization [place] [address] Care Team Providers Care Superintendent Generating Plant Name Role Phone Nataliya Messina MD Primary Care Provider [phone] Encounter Details Date Type Department Care Team (Late st Contact Info) Description 08/15/2018 Orders Only Hematology [place] [phone] Heber Phillips MD [facility] HEMATOLOGY/[place] [address] Social History Tobacco Use Types Packs/Day Years [...] AM EDT Appointment Hematology [place] [phone] 01/21/2024 10:[address] [place] [phone] Heber Phillips MD [facility] HEMATOLOGY/ONCOLOGY [place], [place] [id number] 03/28/2024 10:00 AM EDT Office Visit Hematology/Oncology at [address] [phone] Heber Phillips MD [facility] DR HEMATOLOGY/[place] [address] Isabella Baker APRN [facility] [place] [address] documented as of this encounter Visit Diagnoses Not on filedocumented in this encounter Care Teams Superintendent Generating Plant Relationship Specialty Start Date End Date Nataliya Messina MD [address] [place] [address] PCP - General 10/02/11 01/11/22 documented as of this encounter
--- OUTSIDE RECORDS SUMMARY | 2024-01-05 02:45 | XMS_ITS | Encounter Summary ---
[place] [address] Care Team Providers Care Buffing Wheel Operator Name Role Phone Nataliya Messina MD Primary Care Provider [phone] Encounter Details Date Type Department Care Team (Late st Contact Info) Description 03/31/2018 Notes Only Radiation Oncology at [address] [phone] Mikhail Cadena MD [address] [place] [address] RADIATION ONCOLOGY [place], [place] [id number] Social History Tobacco Use Types Packs/Day Years [...] as of this encounter Progress Notes * Mikhail Cadena MD - 03/31/2018 11:32 AM EDT Images from the original note were not included. RADIATION THERAPY COMPLETION NOTE PATIENT IDENTIFICATION ?? Name Hieu Tillman Date of 1955 ? Diagnosis (Small cell lung cancer, right upper lobe Staging form: Lung, AJCC 8th Edition - Clinical: Stage IIIA (cT3, cN1, cM0) - Signed by Mikhail Cadena MD on 01/13/2018) ?? CONCURRENT THERAPY: Carboplatin / Etoposide (from Dr. Phillips) ?? INTENT OF THERAPY: Definitive (Curative) ?? RADIATION TREATMENT DETAILS: ?? Treatment Site RUL Prescribed Dose 60 Gy in 30 fractions ? Start Date 02/15/18 Current Dose: 03/29/18 ? News Cameraman Lantigua from Current Plan (minimum 60 Gy isodose volume shown): ?? SPECIAL TECHNICAL CONSIDERATIONS: The patient was simulated on a CT simulator. Customized lantigua were designed to encompass the target volume and identify organs at risk and with the intent of minimizing normal tissue toxicity. TREATMENT TOLERANCE: With regard to side effects noted during radiotherapy, the patient tolerated treatment with expected toxicities for this treatment area and dose, including radiation esophagitis which was managed conservatively. TREATMENT RESPONSE: The patient's response to treatment was undetermined, as he was largely asymptomatic at the time ofpresentation. FOLLOWUP: Follow-up visit with Radiation Oncology in [facility] is scheduled for 04/07/18 with MRI prior, for discussion of PCI and for clinical symptom check; he has received instructions to callthis office or seek the help of the local emergency room if any further problems should arise priorto followup. documented in this encounter Plan of Treatment Upcoming Encounters Date Type Department Care Team (Late st Contact Info) Description 01/10/2024 7:45 AM EDT Appointment Hematology [place] [address] 01/21/2024 10:[address] [place] [address] Heber Phillips MD [facility] HEMATOLOGY/[place] [address] 03/28/2024 10:00 AM EDT Office Visit Hematology/Oncology at [address] [phone] Heber Phillips MD [facility] HEMATOLOGY/[place] [address] Isabella Baker APRN [facility] MEDICAL [place] [address] documented as of this encounter Visit Diagnoses Not on filedocumented in this encounter Care Teams Buffing Wheel Operator Relationship Specialty Start Date End Date Nataliya Messina MD [address] [place] [address] [address] [facility] [address] [place] [address] PCP - General 10/02/11 01/11/22 documented as of this encounter
--- OUTSIDE RECORDS SUMMARY | 2024-01-05 02:45 | XMS_ITS | Encounter Summary ---
[place] [address] Care Team Providers Care Purchasing Supervisor Name Role Phone Nataliya Messina MD Primary Care Provider [phone] Reason for Visit * Reason Onset Date Comments Labs Only 04/19/2018 Lab Tracking Encounter Details Date Type Department Care Team (Late st Contact Info) Description 04/19/2018 Telephone Hematology Oncology at [address] [phone] Alyssa Irene RN Labs Only (Lab Tracking) Social History Tobacco Use Types Packs/Day Years [...] encounter Miscellaneous Notes * Telephone Encounter - Alyssa Irene RN - 04/19/2018 2:42 PM EDT LAB TRACKING Primo Britta Roche [id number] DIAGNOSIS: Lung Cancer LABS ORDERED: CBC/CMP Results for SAEEDBRITTA ( ) as of 04/19/2018 14:49 Ref. Range 01/26/2018 06:53 01/26/2018 09:42 04/06/2018 00:00 04/19/2018 09:12 WBC Unknown 10.0 (H) 4.26 RBC Unknown 4.54 (L) 3.01 Hemoglobin Unknown 12.6 (L) 8.9 Hematocrit Unknown 39.1 (L) 26.8 MCV Unknown 86.1 89.0 MCH Unknown 27.8 29.6 MCHC Unknown 32.2 33.2 RDWSD Latest Ref Range: 36.0 - 45.0 fL 44.5 RDWCV Unknown 14.1 (H) 22.7 Platelets Unknown 522 (H) 296 MPV Unknown 8.6 8.8 nRBC % Auto Latest Units: % 0.0 nRBC Abs Auto Latest Ref Range: 0.000 - 0.000 x10(3)/mcL 0.000 Neutr Abs (ANC) Unknown 7.54 (H) 2.68 Neutrophils % Unknown 75.0 52.0 Immature Gran % Latest Units: % 1.00 Lymphocytes % Unknown 11.3 8.0 Monocytes % Unknown 11.2 19.0 Eosinophils % Latest Units: % 0.9 Basophils % Unknown 0.6 0.0 Suri Gran Abs Latest Ref Range: 0.00 - 0.04 x10(3)/mcL 0.10 (H) Lymphocytes Abs Latest Ref Range: 0.9 - 3.2 x10(3)/mcL 1.1 Monocyte Abs Latest Ref Range: 0.3 - 0.9 x10(3)/mcL 1.1 (H) Eosinophils Abs Latest Ref Range: 0.0 - 0.4 x10(3)/mcL 0.1 Basophils Abs Latest Ref Range: 0.0 - 0.1 x10(3)/mcL 0.1 Eosinophil % Unknown 0 Lymphocyte Abs Unknown 0.43 Sodium Unknown 137 135 Potassium Unknown 4.4 4.0 Chloride Unknown 98 98 CO2 Unknown 26 28 Anion Gap Latest Ref Range: 5 - 15 mmol/L 13 BUN Unknown 16 24 Creatinine Unknown 0.98 1.19 eGFR Unknown 82 >=60.00 eGFR Latest Ref Range: >=60 mL/min/1.73 m?? 95 Glucose Lvl Unknown 109 111 Calcium Unknown 9.4 9.5 Total Protein Latest Ref Range: 6.1 - 8.0 gm/dL 7.2 Albumin Latest Ref Range: 3.2 - 5.2 gm/dL 3.9 Total Bilirubin Latest Ref Range: 0.2 - 1.3 mg/dL 0.3 Alk Phos Latest Ref Range: 40 - 120 unit/L 104 AST Latest Ref Range: 0 - 39 unit/L 15 ALT Latest Ref Range: 0 - 55 unit/L 15 IR MEDIPORT PLACEMENT/EXCHANGE Unknown Rpt FILM LIBRARY STORAGE ONLY MR HEAD Unknown Rpt Plan: review with Thu Saldana APRN documented in this encounter Plan of Treatment Upcoming Encounters Date Type Department Care Team (Late st Contact Info) Description 01/10/2024 7:45 AM EDT Appointment Hematology [place] [address] 01/21/2024 10:[address] [place] [phone] Heber Phillips MD [facility] HEMATOLOGY/[place] [address] 03/28/2024 10:00 AM EDT Office Visit Hematology/Oncology at [address] [phone] Heber Phillips MD [facility] HEMATOLOGY/[place] [address] Isabella Baker APRN [facility] [place] [address] documented as of this encounter Procedures Procedure Name Priority Date/Time Associated Diagnosis Comments CBC (WITH DIFF) Routine 04/19/2018 9:12 AM EDT COMPREHENSIVE METABOLIC PANEL (NON-FASTING) Routine 04/19/2018 9:12 AM EDT documented in this encounter Results * Comprehensive metabolic panel (non-fasting) (04/19/2018 9:12 AM EDT) Glucose Lvl 111 BUN 24 Creatinine 1.19 Estimated GFR >=60.00 Sodium 135 Potassium 4.0 Chloride 98 CO2 28 Calcium 9.5 Blood specimen (specimen) 04/19/2018 9:12 AM EDT Historical Provider CHEMISTRY ORDERAB LES * CBC (with Diff) (04/19/2018 9:12 AM EDT) WBC 4.26 RBC 3.01 Hemoglobin 8.9 Hematocrit 26.8 MCV 89.0 MCH 29.6 MCHC 33.2 RDWCV 22.7 Platelets 296 MPV 8.8 Neutrophils % 52.0 Lymphocytes % 8.0 Monocytes % 19.0 Eosinophil % 0 Basophils % 0.0 Neutr Abs (ANC) 2.68 Lymphocyte Abs 0.43 Blood specimen (specimen) 04/19/2018 9:12 AM EDT Historical Provider HEMATOLOGY ORDERA BLES documented in this encounter Visit Diagnoses Diagnosis Small cell lung cancer, right upper lobe documented in this encounter Care Teams Purchasing Supervisor Relationship Specialty Start Date End Date Nataliya Messina MD [address] [place] [address] PCP - General 10/02/11 01/11/22 documented as of this encounter
--- OUTSIDE RECORDS SUMMARY | 2024-01-05 02:45 | XMS_ITS | Encounter Summary ---
[place] [address] Care Team Providers Care Setter Off Name Role Phone Nataliya Messina MD Primary Care Provider [phone] Encounter Details Date Type Department Care Team (Late st Contact Info) Description 03/30/2018 Notes Only Hematology/Oncology at [address] [phone] Mya Saeed MSW OFFICE OF [...] Plan Note - Mya Saeed MSW - 03/30/2018 1:16 PM EDT First Steps Advance Care Planning Conversation Names and relationships of those present for the conversation: Hieu Tillman and 2 sisters; Mya Ambrosio The conversation followed the format of a [...] injury or illness, and identifying personal or taoist beliefs that might affect decisions) To understand the role of the health care agent To complete the advance directive as appropriate [x] The patient???s motivation, knowledge, and/or belief about advance care planning were assessed. [x] An understanding of the role of the health care agent was assessed. [x] Experiences with sudden neurologic injury or illness were explored. [] Goals of medical care for severe neurologic injury were explored. [] An opportunity was offered to explore how taoist, cultural, or personal beliefs would affect decisions for future care. For those with Chronic illness the following was addressed: [] The patient???s understanding of their medical condition was explored. [] The concept of what it means ???to live well?? was explored with the patient. [x] Assistance was provided with the decision regarding CPR: Fact sheets provided [] Understanding of CPR, benefits and burdens [] Explored expected goals of CPR and clarifying unacceptable outcomes [] Explored fears and concerns regarding CPR [] Reviewed previous Advance Care Planning documents [] Assistance was provided in completing all or part of the advance directive. [] Recommendations were made for communicating the plan and for making copies for the health care agent, personal physician, and others as appropriate (e.g., senior attorney, hospital) Health care agent is present: [place] of Health Care Agent: Pt considering his two sons and plans to discuss this further with them. Additional information Goals and values identified: Fears and concerns identified: Treatment decisions: Follow up: Pt had several discussions re ACP. He has been given the [place] AD booklet/form to review. Conversation status: Second conversation Advanced directive was completed: No Time for conversation: 15-30 minutes documented in this encounter Plan of Treatment Upcoming Encounters Date Type Department Care Team (Late st Contact Info) Description 01/10/2024 7:45 AM EDT Appointment Hematology [place] [address] 01/21/2024 10:[address] [place] [address] Heber Phillips MD [facility] DR HEMATOLOGY/[place] [address] 03/28/2024 10:00 AM EDT Office Visit Hematology/Oncology at [address] [phone] Heber Phillips MD [facility] DR HEMATOLOGY/[place] [address] Isabella Baker APRN [facility] [place] [address] documented as of this encounter Visit Diagnoses Not on filedocumented in this encounter Care Teams Setter Off Relationship Specialty Start Date End Date Nataliya Messina MD [address] [place] [address] [id number] PCP - General 10/02/11 01/11/22 documented as of this encounter
--- OUTSIDE RECORDS SUMMARY | 2024-01-05 02:46 | XMS_ITS | Encounter Summary ---
Author Organization [facility] Address [facility] [place] [address] Care Team Providers Care Nanotechnology Engineering Technologist Name Role Phone Nataliya Messina MD Primary Care Provider [phone] Reason for Visit * Reason Comments Chemotherapy Cycle 2 Day1 Carbo/E toposide * Treatment/Therapy Plan Authorization (Routine) - Closed Specialty Diagnoses / Procedures Referred By Keven lozano Referred To Contact Diagnoses Small cell lung cancer, right upper lobe Heber Phillips MD [facility] HEMATOLOGY/[place] [address] St Hem Onc Office [address] [place] [phone] Referral ID Status Reason Start Date Expiration Date Visits Re quested Visits Authorized [id number] Closed 01/20/2018 01/20/2019 1 1 Encounter Details Date Type Department Care Team (Late st Contact Info) Description 02/15/2018 9:00 AM EDT Infusion Hematology Oncology at [address] [phone] Small cell lung cancer, right [...] as of this encounter Progress Notes * Gretta Hopkins RN - 02/15/2018 9:00 AM EDT INFUSION THERAPY ADMINISTRATION NOTES DIAGNOSIS: Cervical Cancer CYCLE #: 2 Day 1 REASON FOR VISIT: Carboplatin/Etoposide SUBJECTIVE Hieu Tillman offers no complaints. OBJECTIVE LAB DATA: WNL IV ACCESS: Mediport accessed, blood return present, flushes easily. Pre administration: Chemotherapy orders independently verified for drug name, route, and dosage per patient's height, weight and BSA by Gretta Hopkins, RN & Jarod Benitez [facility]. REACTIONS (DESCRIPTION, TIME, INTERVENTION AND EFFECTIVENESS) none ASSESSMENT Hieu Tillman was awake, alert and tolerated treatment well. PLAN Return to clinic per routine. documented in this encounter Plan of Treatment Upcoming Encounters Date Type Department Care Team (Late st Contact Info) Description 01/10/2024 7:45 AM EDT Appointment Hematology [place] [address] 01/21/2024 10:[address] [place] [address] Heber Phillips MD [facility] DR HEMATOLOGY/[place] [address] 03/28/2024 10:00 AM EDT Office Visit Hematology/Oncology at [address] [phone] Heber Phillips MD [facility] HEMATOLOGY/[place] [address] Isabella Baker APRN [facility] [place] [address] documented as of this encounter Visit Diagnoses Diagnosis Small cell lung cancer, right upper lobe documented in this encounter Administered Medications Inactive Administered Medications - up to 3 most recent administrations Medication Order MAR Action Action Date Dose Rate Site aprepitant (CINVANTI) injection Emul 130 mg 130 mg, Intravenous, Administer over 2 Minutes, ONCE, 1 dose, On Wed02/15/18 at 0930, Alternative administration of IV push over 2 minutes is a recommendation from the superintendent generating plant. Administer prior to chemotherapy., Routine Given 02/15/2018 9:31 AM EDT 130 mg CARBOplatin (PARAPLATIN) 524 mg in dextrose 5% 302.4 mL chemo infusion 524 mg (rounded from 523.5 mg, Target AUC = 5), Intravenous, ONCE, 1 dose, On Wed02/15/18 at 1030, Administer over 30 Minutes, Hold Parameters: CARBOplatin, Call provider for serum creatinine less than (mg/dL): <1.0, Call provider for serum creatinine greater than (mg/dL): >1.5, External serum creatinine results used to calculate dose? Yes, Enter serum creatinine value (mg/dL): 1.15, Enter serum creatinine result date: 01/20/2018 New Bag 02/15/2018 10:20 AM EDT 524 mg 605 mL/hr dexamethasone (DECADRON) injection 10 mg 10 mg, Intravenous, ONCE, 1 dose, On Wed02/15/18 at 0930, Administer prior to chemotherapy Given 02/15/2018 9:34 AM EDT 10 mg etoposide (VEPESID) 185 mg in sodium chloride 0.9% Non-PVC 509.25 mL chemo infusion 185 mg (100 mg/m2/dose ? 1.85 m2 Treatment Plan BSA from Recorded weight), Intravenous, ONCE, 1 dose, On Wed02/15/18 at 1030, Administer over 120 Minutes New Bag 02/15/2018 10:58 AM EDT 185 mg 255 mL/hr heparin, porcine 100 unit/mL flush 500 Units 500 Units, Intravenous, ONCE PRN, Starting on Wed02/15/18 at 0908, Until Wed02/15/18 at 1513, Line Care, Refer to Intravenous (IV) Procedure: Accessing Implanted Vascular Access Devices (704) procedure and/or Intravenous (IV) Job Aid: Adult Flushing & Catheter Care (9318) job aid for additional information regarding guidelines and administration., Routine Given 02/15/2018 1:09 PM EDT 500 Units palonosetron (ALOXI) injection 0.25 mg 0.25 mg, Intravenous, ONCE, 1 dose, On Wed02/15/18 at 0930, Administer over 30 seconds., Routine Given 02/15/2018 9:28 AM EDT 0.25 mg sodium chloride 0.9 % flush 5-20 mL 5-20 mL, Intravenous, EVERY 1 MIN PRN, Starting on Wed02/15/18 at 0908, Until Wed02/15/18 at 1513, Line Care, Flush pertains to all indwelling lines. Flush per protocol found in the job aid using the link provided on this medication record. Refer to Intravenous (IV) Job Aid: Adult Flushing & Catheter Care (6754) job aid for additional information regarding guidelines and administration., Routine Given 02/15/2018 1:10 PM EDT 20 mLs sodium chloride 0.9% infusion 1,000 mL, at 1,000 mL/hr, Intravenous, ONCE, 1 dose, On Wed02/15/18 at 0930 New Bag 02/15/2018 8:59 AM EDT 1,000 mLs 1000 mL/hr documented in this encounter Care Teams Nanotechnology Engineering Technologist Relationship Specialty Start Date End Date Nataliya Messina MD [address] [facility] [address] [facility] 1 [place] [address] PCP - General 10/02/11 01/11/22 documented as of this encounter
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
--- OUTSIDE RECORDS SUMMARY | 2024-01-05 02:46 | XMS_ITS | Encounter Summary ---
Author Organization [facility] [place] [address] Care Team Providers Care Mold Cooler Name Role Phone Nataliya Messina MD Primary Care Provider [phone] Reason for Visit * Consultation (Routine) - Closed Specialty Diagnoses / Procedures Referred By Contac t Referred To Contact Radiation Oncology Diagnoses Small cell lung cancer, right upper lobe Procedures Simulation for Radiation Therapy Planning Mikhail Cadena MD [address] [place] [address] [place] [address] [facility] Rad Onc Office [address] [place] [phone] Referral ID Status Reason Start Date Expiration Date V isits Requested Visits Authorized [id number] Closed Consult, Test & Treat 01/17/2018 01/17/2019 1 1 Encounter Details Date Type Department Care Team (Late st Contact Info) Description 01/19/2018 10:00 AM EDT Ancillary Appointment Radiation Oncology at [address] [phone] Mikhail Cadena MD [address] [place] [address] [place] [address] Social History Tobacco Use Types Packs/Day Years [...] on file documented as of this encounter Patient Instructions * Patient Instructions* Susan Larry RN - 01/19/2018 10:00 AM EDT General instructions for Radiation therapy Radiation Oncology Team ?? Radiation Oncologist -The doctor who will direct all aspects of your radiation treatments ?? Nurse Practitioner - They assist your doctor in treating your side effects and with follow up appointments. ?? Registered Nurse - They alia you in learining about you radaiton treatments, , and things you can do to help manage the side effects. ?? Barber Shop Manager - They take the doctors radiation prescription and customize it into doses (or days of treatments) specific for you. ?? Physicist - They make sure all the machines are operating correctly and double check calculations for your treatment. ?? Radiation Technologists - They operate the machines which deliver your radiation. You see them daily and they schedule your treatments. ?? Simulation CT/ Planning Session- Your first step after deciding to start radiation treatments is done on a special CT scanner in radiation oncolcgy. The images obtained are used to plan your treatments. This may be scheduled the same day you meet your doctor or in a separate visit. This usually takes between 30 minutes to one hour. You may need an IV for contrast. If so our nurse will let you know that day along with any other special instructions. During this visit we may tory Your skin with a tiny ???tattoos?? , take pictures or make special molds or masks to help us place you in the exact treatment position every day. After this session it takes up to two weeks for your plan to be developed and checked by your doctor, the dosimetrists and the physicist. ?? Skin Care - Your nurse/physician will provide you with the necessary creams and supplies as you need them during your treatments. Please make sure to keep the treatment area clean and dry. Be sure to notice if your clothing rubs or digs into the treatment area and try to wear clothes which are less abrasive, like cotton or loose fitting. Do not use harsh soaps, ointments, deodorants or tapes in the treatment area unless directed by your nurse or doctor. Keep the treatment area out of the sun during treatments. ?? General precautions- DO NOT USE heating pads, hot water bottles, hot poultices, heat lamps, heat in any form, or ice packs to the area of your body being treated. It is common to start feeling fatigue after a few weeks of being treated. You can help minimize this by getting regular exercise or walking and getting plenty of rest. In general a well balanced diet is recommended. The windows security engineer and nurse will inform you of any special diet requirements. Avoid shaving the treatment area with a razor. If you must shave use an electric razor. Our Contact numbers Section of Radiation Oncology Our normal business hours are: Wednesday - Wednesday: 8:00 AM to 5:00 PM [facility]: [facility]: If you have questions about your radiation appointments please ask to speak to one of our secretarystaff. If you have questions for a nurse/doctor about radiation treatments, radiation side effects or you are not feeling well it is best to call early in the day. This allows a nurse to return your call by5 PM the same day. If you call after 4 PM, a nurse will return your call by 5 PM the following day unless it is emergent. If you experience any of the following you need to seek emergency care immediately by calling 911 1. Sudden and unexpected breathing difficulty without any exertion 2. Sudden onset of chest pain 3. Sudden onset of severe pain or uncontrolled pain 4. Sudden onset of severe weakness and/or unable to ambulate 5. Sudden new onset of a seizure 6. Fall resulting in injury ?? A Radiation Oncology doctor is ground operations superintendent after our normal hours and on weekends. ?? To call for urgent medical issues from radiation treatments that can not wait until normal business hours: ?? Call for either location and have the production boring machine operator page the Radiation Oncologist ground operations superintendent. documented in this encounter Progress Notes * Susan Larry RN - 01/19/2018 10:00 AM EDT Radiation Oncology Simulation Note Hieu Tillman is here for radiation planning , undergoing a simulation to the lung for small cell lung cancer treatment . Usual radiation oncology routines and purpose of on treatment visits were explained. Jeans cream provided and instructions for use reviewed Anticipatory Guidance: Please see AVS. Reviewed and provided Radiation Oncology New Patient Package. Barriers to Treatment/ Compliance issues identified: None identified. Patient does not like needlesbut agreeable to tattoos. Patient confirms they can have no difficulties lying flat. pre- medication plan made: None needed. Referrals: SENIOR RECRUITER per protocol. * Mikhail Cadena MD - 01/19/2018 10:00 AM EDT Simulation Note for External Beam Radiation Treatment Planning [facility] Scott Tillman is a 62 y.o. year old male with limited stage small cell lung cancer who was simulated for definitive chemoradiotherapy to the lung and hilum today. No changes were made from the plan as documented in the original simulation order and instructions. Briefly, he was immobilized using a vacloc bag and prior to the scan and a 2.5mm slice thickness CTscan of the patient's chest was then obtained. This scan was performed to delineate both target volumes and organs/structures at risk. These images will be used to create a customized treatment plan employing multileaf collimators and beams-eye view to treat the target to prescription dose while maximally sparing organs at risk, with the overall goal of maximizing the likelihood of a favorable disease response while minimizing the likelihood of any short term side effects or custodial complications of therapy. In addition, respiratory gating was used to determine the extent of target motion during the normalrespiratory cycle. During the planning process, a determination will be made regarding whether an internal target volume (ITV) or gated plan will be necessary to treat this patient. I anticipate his prescription dose will be 60 Gy to the lung tumor and regional lymph nodes, delivered in daily 2 Gy fractions over the course of 6 weeks. Anticipate therapy to begin within the next 7-10 days. Furthermore, I anticipate this patient will require 3D conformal treatment planning as multiple conformal portals will be contructed to adequately cover the critical structures of interest (in this case, the tumor) with close margins that protect immediately adjacent sensitive structures (includinghis esophagus, normal lung, heart, skin and spinal cord). If dosimetric constraints for a safe and efficacious radiotherapy plan cannot be met using 3D conformal therapy, a IMRT or VMAT approach willbe considered. The patient tolerated this procedure well, and was provided instructions with regard to upcoming appointments. documented in this encounter Plan of Treatment Upcoming Encounters Date Type Department Care Team (Late st Contact Info) Description 01/10/2024 7:45 AM EDT Appointment [place]ology [place] [address] 01/21/2024 10:[address] [place] [address] Heber Phillips MD [facility] DR HEMATOLOGY/[place] [address] 03/28/2024 10:00 AM EDT Office Visit Hematology/Oncology at [address] [phone] Heber Phillips MD [facility] DR HEMATOLOGY/[place] [address] Isabella Baker APRN [facility] [place] [address] documented as of this encounter Visit Diagnoses Not on filedocumented in this encounter Care Teams Mold Cooler Relationship Specialty Start Date End Date Nataliya Messina MD [address] [place] [address] [address] [place], [place] [id number] PCP - General 10/02/11 01/11/22 documented as of this encounter
--- OUTSIDE RECORDS SUMMARY | 2024-01-05 02:46 | XMS_ITS | Encounter Summary ---
Author Organization [facility] Address [facility] [place] [address] Care Team Providers Care Computer Systems Integrator Name Role Phone Nataliya Messina MD Primary Care Provider [phone] Reason for Visit * Treatment/Therapy Plan Authorization (Routine) - Closed Specialty Diagnoses / Procedures Referred By Contac t Referred To Contact Diagnoses Small cell lung cancer, right upper lobe Heber Phillips MD [facility] HEMATOLOGY/[place] [address] St Hem Onc Office [address] [place] [phone] Referral ID Status Reason Start Date Expiration Date Visits Re quested Visits Authorized [id number] Closed 01/20/2018 01/20/2019 1 1 Encounter Details Date Type Department Care Team (Late st Contact Info) Description 02/17/2018 9:30 AM EDT Infusion Hematology Oncology at [address] [address] Small cell lung cancer, right [...] Sign Reading Time Taken Comments Blood Pressure 144/64 02/17/2018 9:28 AM EDT Pulse 74 02/17/2018 9:28 AM EDT Temperature 36.7 ??C (98.1 ??F) 02/17/2018 9:28 AM ED T Respiratory Rate 20 02/17/2018 9:28 AM EDT Oxygen Saturation 99% 02/17/2018 9:28 AM EDT Inhaled Oxygen Concentration - - Weight 77 kg (169 lb 12.8 oz) 02/17/2018 9:28 AM EDT Height 168 cm (5' 6.14) 02/17/2018 9:28 AM EDT Body Mass Index 27.29 02/17/2018 9:28 AM EDT documented in this encounter Plan of Treatment Upcoming Encounters Date Type Department Care Team (Late st Contact Info) Description 01/10/2024 7:45 AM EDT Appointment [place]ematology [place] [address] 01/21/2024 10:[address] [place] [address] Heber Phillips MD [facility] HEMATOLOGY/[place] [address] 03/28/2024 10:00 AM EDT Office Visit Hematology/Oncology at [address] [address] Heber Phillips MD [facility] DR HEMATOLOGY/[place] [address] Isabella Baker APRN [facility] [place] [address] documented as of this encounter Visit Diagnoses Diagnosis Small cell lung cancer, right upper lobe documented in this encounter Administered Medications Inactive Administered Medications - up to 3 most recent administrations Medication Order MAR Action Action Date Dose Rate Site dexamethasone (DECADRON) injection 10 mg 10 mg, Intravenous, ONCE, 1 dose, On Federica 02/17/18 at 0945, Administer prior to chemotherapy Given 02/17/2018 10:15 AM EDT 10 mg etoposide (VEPESID) 185 mg in sodium chloride 0.9% Non-PVC 509.25 mL chemo infusion 185 mg (100 mg/m2/dose ? 1.85 m2 Treatment Plan BSA from Recorded weight), Intravenous, ONCE, 1 dose, On Federica 02/17/18 at 1030, Administer over 120 Minutes New Bag 02/17/2018 10:45 AM EDT 185 mg 255 mL/hr heparin, porcine 100 unit/mL flush 500 Units 500 Units, Intravenous, ONCE PRN, Starting on Federica 02/17/18 at 0925, Until Federica 02/17/18 at 1837, Line Care, Refer to Intravenous (IV) Procedure: Accessing Implanted Vascular Access Devices (654) procedure and/or Intravenous (IV) Job Aid: Adult Flushing & Catheter Care (3182) job aid for additional information regarding guidelines and administration., Routine Given 02/17/2018 1:01 PM EDT 500 Units sodium chloride 0.9 % flush 5-20 mL 5-20 mL, Intravenous, EVERY 1 MIN PRN, Starting on Federica 02/17/18 at 0925, Until Federica 02/17/18 at 1837, Line Care, Flush pertains to all indwelling lines. Flush per protocol found in the job aid using the link provided on this medication record. Refer to Intravenous (IV) Job Aid: Adult Flushing & Catheter Care (3449) job aid for additional information regarding guidelines and administration., Routine Given 02/17/2018 1:01 PM EDT 20 mLs documented in this encounter Care Teams Computer Systems Integrator Relationship Specialty Start Date End Date Nataliya Messina MD [address] [place] [address] [address] [place] [address] PCP - General 10/02/11 01/11/22 documented as of this encounter
--- OUTSIDE RECORDS SUMMARY | 2024-01-05 02:46 | XMS_ITS | Encounter Summary ---
Author Organization [facility] Address [facility] [place] [address] Care Team Providers Care Screening Specialist Name Role Phone Nataliya Messina MD Primary Care Provider Reason for Visit * Reason Comments Chemotherapy Cycle 3, Day 2 -- Et oposide * Treatment/Therapy Plan Authorization (Routine) - Closed Specialty Diagnoses / Procedures Referred By Keven lozano Referred To Contact Diagnoses Small cell lung cancer, right upper lobe Heber Phillips MD [facility] [place] [address] St Hem Onc Office [address] [place] [phone] Referral ID Status Reason Start Date Expiration Date Visits Re quested Visits Authorized [id number] Closed 01/20/2018 01/20/2019 1 1 Encounter Details Date Type Department Care Team (Late st Contact Info) Description 03/09/2018 10:30 AM EDT Infusion Hematology Oncology at [address] [address] Small cell lung cancer, right [...] Sign Reading Time Taken Comments Blood Pressure 118/55 03/09/2018 10:26 AM EDT Pulse 86 03/09/2018 10:26 AM EDT Temperature 36.7 ??C (98.1 ??F) 03/09/2018 1 0:26 AM EDT Respiratory Rate 18 03/09/2018 10:2 6 AM EDT Oxygen Saturation 99% 03/09/2018 10: 26 AM EDT Inhaled Oxygen Concentration - - Weight 76.6 kg (168 lb 12.8 oz) 018 10:26 AM EDT Height 168 cm (5' 6.14) 03/09/2018 10: 26 AM EDT Body Mass Index 27.13 03/09/2018 10:26 AM EDT documented in this encounter Progress Notes * Kiley Silva RN - 03/09/2018 10:30 AM EDT INFUSION THERAPY ADMINISTRATION NOTES DIAGNOSIS: SCLC CYCLE #: Cycle 3, Day 2 -- Etoposide REASON FOR VISIT: To [...] and BSA by Fredi Silva RN and Flynn Bautista [facility]. REACTIONS (DESCRIPTION, TIME, INTERVENTION AND EFFECTIVENESS) none [...] AM EDT Appointment Hematology [place] [address] 01/21/2024 10:[address] [place] [address] Heber Phillips MD [facility] HEMATOLOGY/[place] [address] 03/28/2024 10:00 AM EDT Office Visit Hematology/Oncology at [address] [address] Heber Phillips MD [facility] [place]AT[place] [address] Isabella Baker APRN [facility] [place] [address] documented as of this encounter Visit Diagnoses Diagnosis Small cell lung cancer, right upper lobe documented in this encounter Administered Medications Inactive Administered Medications - up to 3 most recent administrations Medication Order MAR Action Action Date Dose Rate Site dexamethasone (DECADRON) injection 10 mg 10 mg, Intravenous, ONCE, 1 dose, On Wed03/09/18 at 1100, Administer prior to chemotherapy Given 03/09/2018 11:34 AM EDT 10 mg etoposide (VEPESID) 185 mg in sodium chloride 0.9% Non-PVC 509.25 mL chemo infusion 185 mg (100 mg/m2/dose ? 1.85 m2 Treatment Plan BSA from Recorded weight), Intravenous, ONCE, 1 dose, On Wed03/09/18 at 1200, Administer over 120 Minutes New Bag 03/09/2018 12:14 PM EDT 185 mg 255 mL/hr heparin, porcine 100 unit/mL flush 500 Units 500 Units, Intravenous, ONCE PRN, Starting on Wed03/09/18 at 1132, Until Wed03/09/18 at 1906, Line Care, Refer to Intravenous (IV) Procedure: Accessing Implanted Vascular Access Devices (344) procedure and/or Intravenous (IV) Job Aid: Adult Flushing & Catheter Care (4026) job aid for additional information regarding guidelines and administration., Routine Given 03/09/2018 2:15 PM EDT 500 Units sodium chloride 0.9 % flush 5-20 mL 5-20 mL, Intravenous, EVERY 1 MIN PRN, Starting on Wed03/09/18 at 1132, Until Wed03/09/18 at 1906, Line Care, Flush pertains to all indwelling lines. Flush per protocol found in the job aid using the link provided on this medication record. Refer to Intravenous (IV) Job Aid: Adult Flushing & Catheter Care (8854) job aid for additional information regarding guidelines and administration., Routine Given 03/09/2018 2:15 PM EDT 20 mLs documented in this encounter Care Teams Screening Specialist Relationship Specialty Start Date End Date Nataliya Messina MD [address] [place] [address] [address] [facility] [address] [place] [address] PCP - General 10/02/11 01/11/22 documented as of this encounter
--- OUTSIDE RECORDS SUMMARY | 2024-01-05 02:46 | XMS_ITS | Encounter Summary ---
Author Organization [facility] [address] Care Team Providers Care Sanding Supervisor Name Role Phone Nataliya Messina MD Primary Care Provider [phone] Encounter Details Date Type Department Care Team (Late st Contact Info) Description 01/26/2018 Notes Only Hematology/Oncology at [address] [phone] Mya Saeed EXHAUST MACHINE OPERATOR OFFICE OF CARE MANAGEMENT Social History Tobacco [...] Progress Notes * Mya Saeed MSW - 01/26/2018 11:59 PM EDT Reason for Referral: Brief assessment of social and emotional needs. Met with pt during infusion 01-26-18. Social Supports: Pt is but from his . He has 4 sons and a daughter and 3 sonsare in the area. He has 3 sisters also in the area. Pt reports he has a number of friends. Living Situation/Daily Activities/Transportation: Pt lives alone and manages his daily chores and activities. He does not expect any issues with transportation. Work/Finances/Insurance: Pt is disabled. He has Medicare only for insurance. Gave pt an [employer] application and he indicated he has talked with someone in that office. Advance Directives: Pt has not completed his advance directive. Discussed the document and the process. Gave him a [place] booklet/form. Invited him to meet to complete his document. Utilization of Community Resources: Pt interested in information re lifeline. Contacted lifeline staff to send pt information. Adjustment to Illness/Mental Health Issues: Pt reports he is coping the best he can. He has supportfrom family and friends. He also indicated he has a lot of [place]. Identified Needs: Possibly lifeline and requested information be sent to pt. Referrals: Lifeline Plan: Informed pt of my availability and will follow for support and resources. documented in this encounter Plan of Treatment Upcoming Encounters Date Type Department Care Team (Late st Contact Info) Description 01/10/2024 7:45 AM EDT Appointment Hematology [place] [address] 01/21/2024 10:[address] [place] [address] Heber Phillips MD [facility] DR HEMATOLOGY/[place] [address] 03/28/2024 10:00 AM EDT Office Visit Hematology/Oncology at [address] [address] Heber Phillips MD [facility] DR HEMATOLOGY/[place] [address] Isabella Baker APRN [facility] [place] [address] documented as of this encounter Visit Diagnoses Not on filedocumented in this encounter Care Teams Sanding Supervisor Relationship Specialty Start Date End Date Nataliya Messina MD [address] [place] [address] PCP - General 10/02/11 01/11/22 documented as of this encounter
--- OUTSIDE RECORDS SUMMARY | 2024-01-05 02:46 | XMS_ITS | Encounter Summary ---
Author Organization [facility] Address [facility] [place] [address] Care Team Providers Care Jeep Mechanic Name Role Phone Nataliya Messina MD Primary Care Provider [phone] Reason for Visit * Reason Comments Chemotherapy cycle 1 day 2 * Treatment/Therapy Plan Authorization (Routine) - Closed Specialty Diagnoses / Procedures Referred By Keven lozano Referred To Contact Diagnoses Small cell lung cancer, right upper lobe Heber Phillips MD [facility] HEMATOLOGY/[place] [address] St Hem Onc Office [address] [place] [phone] Referral ID Status Reason Start Date Expiration Date Visits Re quested Visits Authorized [id number] Closed 01/20/2018 01/20/2019 1 1 Encounter Details Date Type Department Care Team (Late st Contact Info) Description 01/27/2018 9:00 AM EDT Infusion Hematology Oncology at [address] [phone] Small cell lung cancer, right [...] Sign Reading Time Taken Comments Blood Pressure 138/65 01/27/2018 8:55 AM EDT Pulse 80 01/27/2018 8:55 AM EDT Temperature 36.8 ??C (98.2 ??F) 01/27/2018 8:55 AM ED T Respiratory Rate 18 01/27/2018 8:55 AM EDT Oxygen Saturation 95% 01/27/2018 8:55 AM EDT Inhaled Oxygen Concentration - - Weight 76.3 kg (168 lb 3.2 oz) 01/27/2018 8:55 A M EDT Height 168 cm (5' 6.14) 01/27/2018 8:55 AM EDT Body Mass Index 27.03 01/27/2018 8:55 AM EDT documented in this encounter Progress Notes * Ada Landa RN - 01/27/2018 9:00 AM EDT INFUSION THERAPY ADMINISTRATION NOTES DIAGNOSIS: Lung Cancer CYCLE #: 1 day REASON FOR VISIT:/ETOPOSIDE SUBJECTIVE Hieu Tillman offers no complaints. OBJECTIVE LAB DATA: WNL IV ACCESS: Mediport accessed from [facility] yesterday, excellent blood return Pre administration: Chemotherapy orders independently verified for drug name, route, and dosage per patient's height, weight and BSA by ADA LANDA, [facility]. REACTIONS (DESCRIPTION, TIME, INTERVENTION AND EFFECTIVENESS) none ASSESSMENT Hieu Tillman was awake, alert and tolerated treatment well. States felt great after treatment yesterday. Reading education booklet. Review of. chemo teaching instructions included: During clinic hours (8am-5pm Wednesday-Wednesday): pt. can call [phone] with questions or concerns. After clinic hours (5pm-8am Wednesday-Wednesday and weekends) pt can call [phone] and ask for the informatica mdm architect/oncologist acquisition consultant. Hieu Tillman verbalized understanding of potential chemotherapy side effects and home care includingbut not limited to- handwashing to prevent infection, signs and symptoms of low blood counts (fever, fatigue, bleeding), to call with a fever of 100.4 or greater, any significant constipation/diarrhea, importance of nutrition and fluid intake (drinking at least 32-64 ounces of non-caffeinated beverages/day), mouth care. PLAN Return to clinic 01/28 for day 3 documented in this encounter Plan of Treatment Upcoming Encounters Date Type Department Care Team (Late st Contact Info) Description 01/10/2024 7:45 AM EDT Appointment Hematology [place] [address] 01/21/2024 10:[address] [place] [address] Heber Phillips MD [facility] DR HEMATOLOGY/[place] [address] 03/28/2024 10:00 AM EDT Office Visit Hematology/Oncology at [address] [phone] Heber Phillips MD [facility] DR HEMATOLOGY/[place] [address] Isabella Baker APRN [facility] [place] [address] documented as of this encounter Visit Diagnoses Diagnosis Small cell lung cancer, right upper lobe documented in this encounter Administered Medications Inactive Administered Medications - up to 3 most recent administrations Medication Order MAR Action Action Date Dose Rate Site dexamethasone (DECADRON) injection 10 mg 10 mg, Intravenous, ONCE, 1 dose, On Federica 01/27/18 at 0930, Administer prior to chemotherapy Given 01/27/2018 9:30 AM EDT 10 mg etoposide (VEPESID) 185 mg in sodium chloride 0.9% Non-PVC 509.25 mL chemo infusion 185 mg (100 mg/m2/dose ? 1.85 m2 Treatment Plan BSA from Recorded weight), Intravenous, ONCE, 1 dose, On Federica 01/27/18 at 1000, Administer over 120 Minutes New Bag 01/27/2018 10:00 AM EDT 185 mg 255 mL/hr heparin, porcine 100 unit/mL flush 500 Units 500 Units, Intravenous, ONCE PRN, Starting on Federica 01/27/18 at 0913, Until Federica 01/27/18 at 1632, Line Care, Refer to Intravenous (IV) Procedure: Accessing Implanted Vascular Access Devices (654) procedure and/or Intravenous (IV) Job Aid: Adult Flushing & Catheter Care (9238) job aid for additional information regarding guidelines and administration., Routine Given 01/27/2018 12:09 PM EDT 500 Units sodium chloride 0.9 % flush 5-20 mL 5-20 mL, Intravenous, EVERY 1 MIN PRN, Starting on Federica 01/27/18 at 0913, Until Federica 01/27/18 at 1632, Line Care, Flush pertains to all indwelling lines. Flush per protocol found in the job aid using the link provided on this medication record. Refer to Intravenous (IV) Job Aid: Adult Flushing & Catheter Care (8553) job aid for additional information regarding guidelines and administration., Routine Given 01/27/2018 12:09 PM EDT 20 mLs documented in this encounter Care Teams Jeep Mechanic Relationship Specialty Start Date End Date Nataliya Messina MD [address] [place] [address] PCP - General 10/02/11 01/11/22 documented as of this encounter
--- OUTSIDE RECORDS SUMMARY | 2024-01-05 02:46 | XMS_ITS | Encounter Summary ---
Author Organization [facility] [place] [address] Care Team Providers Care Farm Forestry And Garden Workers Name Role Phone Nataliya Messina MD Primary Care Provider [phone] Encounter Details Date Type Department Care Team (Latest Contact Info) Description 02/24/2018 11:30 AM EDT Clinical Support Hematology/Oncology at [address] [address] Small cell [...] Progress Notes * Shira Curry RD - 02/24/2018 11:30 AM EDT [facility] Initial Dietitian Assessment Seen By: Leona Curry MS, RD, OIL SPREADER OPERATOR, LD Referred by: Reason for visit: Patient and diagnosis: High-grade neuroendocrine cancer of right lung, limited stage Assessment: HPI: Patient Active Problem List Diagnosis [...] reviewed Ht: Estimated body mass index is 26.07 kg/(m^2) as calculated from the following: Height as of 02/17/18: 168 cm (5' 6.14). Weight as of an earlier encounter on 02/24/18: 73.6 kg (162 lb 3.2 oz). Wt: Wt Readings from Last 3 Encounters: 02/24/18 73.6 kg (162 lb 3.2 oz) 02/17/18 77 kg (169 lb 12.8 oz) 02/16/18 75.1 kg (165 lb 9.6 oz) Wt Hx: UBW: 160- 165 lbs % UBW: IBW: 62.6 kg+/- 10% % IBW: ___ Edema ___ Ascites ___Muscle wasting Calorie needs: 1600 - 1900 Protein needs: 94 Fluid needs: 1.6 - 1.9 L Food Intake: Am: egg, bonds, cheese and jon sandwich Noon: pastries - cinnamon rolls Pm: cheese burger w/ bread, hot dog Snacks: addicted to little apple pies, ring dings, cinnamon rolls Fluids: coffee: 2 cups, water: in pm - ~ 12-16 oz, 1-2 beers/d Supplements/Frequency: hasn't tried these ___ Ensure/Plus ___ Boost/Plus ___ CIB ___ Other: Teas, vitamins, or other nutritional supplements: MgCl, fiber + Food allergies or avoidances: salmon, avocado, Appetite: Good, unrestricted with intake. Baseline protions Nausea: denies Vomiting: denies Chewing: denies Dentition: dentures - fit ok Swallowing: + heartburn, lettuce is tricky - irritates uvula Taste Changes: denies - but can't eat slim jims anymore Bowels: Baseline: 2 times/d. Takes fiber supplement QD. Food availability/purchasing, meal planning and preparation: He does, lives alone. Depression: Social Support: Economic Issues: Physical Activity: Level of Motivation/Readiness to Change: Nutrition Diagnosis: 02/24/18: Weight stable. He was accompanied by [...] Will follow up with Mr. Tillman in one week (s) to re-evaluate. I have provided him with my card and contact information should he have any questions in the mean time. Thank you for this consult. documented in this encounter Plan of Treatment Upcoming Encounters Date Type Department Care Team (Late st Contact Info) Description 01/10/2024 7:45 AM EDT Appointment Hematology [place] [address] 01/21/2024 10:[address] [place] [address] Heber Phillips MD [facility] HEMATOLOGY/[place] [address] 03/28/2024 10:00 AM EDT Office Visit Hematology/Oncology at [address] [address] Heber Phillips MD [facility] HEMATOLOGY/[place] [address] Isabella Baker APRN [facility] [place] [address] documented as of this encounter Visit Diagnoses Diagnosis Small cell lung cancer, right upper lobe documented in this encounter Care Teams Farm Forest[employer] And Garden Workers Relationship Specialty Start Date End Date Nataliya Messina MD [address] [place] [address] PCP - General 10/02/11 01/11/22 documented as of this encounter
--- OUTSIDE RECORDS SUMMARY | 2024-01-05 02:46 | XMS_ITS | Encounter Summary ---
Author Organization Formerly [facility] [place] [address] Care Team Providers Care Steamship Agent Name Role Phone Nataliya Messina MD Primary Care Provider Encounter Details Date Type Department Care Team (Late st Contact Info) Description 02/15/2018 8:00 AM EDT Office Visit Hematology/Oncology at [address] [phone] Deisi Louis, HONING MACHINE SET UP OPERATOR [address] [facility] [place] [address] Small cell lung cancer, right upper lobe; Mass of upper lobe of right lung Social History Tobacco Use [...] Reading Time Taken Comments Blood Pressure 138/64 02/15/2018 8:13 AM EDT Pulse 67 02/15/2018 8:13 AM EDT Temperature 36.3 ??C (97.3 ??F) 02/15/2018 8:13 AM ED T Respiratory Rate 18 02/15/2018 8:13 AM EDT Oxygen Saturation 100% 02/15/2018 8:13 AM EDT Inhaled Oxygen Concentration - - Weight 73.6 kg (162 lb 3.2 oz) 02/15/2018 8:13 A M EDT Height 168 cm (5' 6.14) 02/15/2018 8:13 AM EDT copied Body Mass Index 26.07 02/15/2018 8:13 AM EDT documented in this encounter Progress Notes * Deisi Louis, HONING MACHINE SET UP OPERATOR - 02/15/2018 8:00 AM EDT Diagnosis: High-grade neuroendocrine cancer of [...] was referred for consideration of definitive chemoradiation. PMH: ND in 2013 status post 2 stents placement, [...] radiating to right leg ??? Myocardial infarction ND about 6 years ago @ [facility] [place]has stents ??? 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 Marital [...] Social History Narrative Lives with his in [place], [place]. 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 He is down 4lbs but states he is eating well. Some of this is likely due to dehydration as his BUN and Cr are up. The only side effect of treatment that [...] Neurological: Negative. Hematological: Negative for adenopathy. BP 138/64 (Patient Position: Sitting) Pulse 67 Temp 36.3 ??C (97.3 ??F) (Oral) Resp 18 Ht 168 cm (5' 6.14) Comment: copied Wt 73.6 kg (162 lb 3.2 oz) SpO2 100% BMI 26.07 kg/m2 Wt Readings from Last 3 Encounters: 02/15/18 73.6 kg (162 lb 3.2 oz) 01/28/18 76.6 kg (168 lb 12.8 oz) 01/27/18 76.3 kg (168 lb 3.2 oz) Physical Exam Constitutional: He is oriented [...] labile. He exhibits a depressed mood. Labs: 02/14/18 CBC: WBC 6.65 hemoglobin 11.6 platelets 436 CMP: Calcium 9.3 glucose 102 BUN 21 creatinine 1.17 total protein 7.8 albumin 3.6 total bili 0.2 alk phos 117 sodium 132 potassium 4.6 chloride 98 AST 28 ALT 42 Imagin12/31/2017 PET IMPRESSION 1. FDG avid right upper lobe mass, most consistent with primary lung malignancy. 2. Adjacent FDG avid 6 mm pulmonary nodule suspicious for a satellite malignancy. 3. No regional renato or distant sites of metastasis 12/30/17 brain MRI: IMPRESSION: No evidence of metastatic disease. ONCBCN ONCOLOGY (AMB) 01/26/2018 Day, Cycle Day 1, [...] right lung (small cell), limited stage Treatment: carbo-etop with concurrent XRT Mr. 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 Brain MRI and PET scan are negative for distant disease. He is a former smoker with significant comorbidities including history of stroke, severe peripheralvascular disease, ND status post stent placement and COPD. His performance status is 2. Kidney function is borderline normal. We discussed prognosis of limited stage small cell lung carcinoma with 20-30% three-year overall survival if treated with chemoradiation His case was discussed on thoracic tumor board with some recommendation for concurrent chemoradiation with carboplatin AUC 5 and etoposide 100 mg dd 1-3 . Plan: 1. Carboplatin and etoposide with blood work and ??2-nd cycle of chemo concurrently with radiation.I added 1L NS today for mild dehydration. His creatinine was somewhat elevated today due to the dehydration and his carbo dose calculated out to be lower than what he previously received. Given the severity of his disease and the fact that he tolerated it quite well for the first cycle I have chosen to keep the dose that he was originally ordered to receive today. I have encouraged him to drink plenty of fluids and increase what he is already doing to be somewhere of 8-10 glasses a day, limiting alcohol to 1 beer/d. 2. Next visit with MD on March 08 with blood work and 3-rd cycle of chemo 3. Depression: We do long discussion today regarding his disease inability to cope. I think he would benefit from starting antidepressant and he agrees. I called in a prescription for Celexa to startat 20 mg each day and if he notices no effect after 7 days he can increase it to 40 mg daily. He has my card and will check in with me if this is not effective. 4. I will refer him to the retort loader for nutritional support. Deisi Louis, MSN, TECHNICIAN ANATOMIC PATHOLOGY, AOCN Hematology/Oncology Nurse Practitioner [place], [place] [phone] documented in this encounter Plan of Treatment Upcoming Encounters Date Type Department Care Team (Late st Contact Info) Description 01/10/2024 7:45 AM EDT Appointment Hematology [place] [address] 01/21/2024 10:[address] [place] [address] Heber Phillips MD [facility] DR HEMATOLOGY/[place] [address] 03/28/2024 10:00 AM EDT Office Visit Hematology/Oncology at [address] [phone] Heber Phillips MD [facility] DR HEMATOLOGY/[place] [address] Isabella Baker APRN [facility] [place] [address] documented as of this encounter Visit Diagnoses Diagnosis Small cell lung cancer, right upper lobe Mass of upper lobe of right lung documented in this encounter Care Teams Steamship Agent Relationship Specialty Start Date End Date Nataliya Messina MD [address] [place] [address] [address] [place] [address] PCP - General 10/02/11 01/11/22 documented as of this encounter
--- OUTSIDE RECORDS SUMMARY | 2024-01-05 02:46 | XMS_ITS | Encounter Summary ---
[place] [address] Care Team Providers Care Oracle R12 Developer Name Role Phone Nataliya Messina MD Primary Care Provider [phone] Encounter Details Date Type Department Care Team (Late st Contact Info) Description 01/07/2018 Telephone [place] [phone] Ashley Dykes RN Social History Tobacco Use Types Packs/Day [...] encounter Miscellaneous Notes * Telephone Encounter - Ashely Dykes RN - 01/07/2018 8:45 AM EDT Call from patient questioning whether he should restart taking his plavix. As instructed to do so at discharge confirmed that he should restart taking it now. Once surgery is scheduled instructions to hold will be provided. documented in this encounter Plan of Treatment Upcoming Encounters Date Type Department Care Team (Late st Contact Info) Description 01/10/2024 7:45 AM EDT Appointment Hematology [place] [phone] 01/21/2024 10:[address] [place] [address] Heber Phillips MD [facility] HEMATOLOGY/[place] [address] 03/28/2024 10:00 AM EDT Office Visit Hematology/Oncology at [address] [phone] Heber Phillips MD [facility] HEMATOLOGY/[place] [address] Isabella Baker APRN [facility] [place] [address] documented as of this encounter Visit Diagnoses Not on filedocumented in this encounter Care Teams Oracle R12 Developer Relationship Specialty Start Date End Date Nataliya Messina MD [address] [place] [address] PCP - General 10/02/11 01/11/22 documented as of this encounter
--- OUTSIDE RECORDS SUMMARY | 2024-01-05 02:46 | XMS_ITS | Encounter Summary ---
Author Organization [facility] [place] [address] Care Team Providers Care Acting Instructor Name Role Phone Nataliya Messina MD Primary Care Provider [phone] Encounter Details Date Type Department Care Team (Latest Contact Info) Description 03/03/2018 10:45 AM EDT Clinical Support Hematology/Oncology at [address] [phone] Small cell [...] Progress Notes * Shira Curry RD - 03/03/2018 10:45 AM EDT [facility] Dietitian Assessment Seen By: Leona Curry MS, RD, THERMOGRAPH OPERATOR, LD Referred by: Reason for visit: [...] 168 cm (5' 6.14). Weight as of 02/24/18: 73.6 kg (162 lb 3.2 oz). [...] Level of Motivation/Readiness to Change: Nutrition Diagnosis: 03/03/18: Unable to see pt at scheduled encounter. Will request reschedule. 02/24/18: Weight stable. He was accompanied by [...] AM EDT Appointment Hematology [place] [address] 01/21/2024 10:[address] [place] [address] Heber Phillips MD [facility] HEMATOLOGY/[place] [address] 03/28/2024 10:00 AM EDT Office Visit Hematology/Oncology at [address] [phone] Heber Phillips MD [facility] HEMATOLOGY/[place] [address] Isabella Baker APRN [facility] [place] [address] documented as of this encounter Visit Diagnoses Diagnosis Small cell lung cancer, right upper lobe documented in this encounter Care Teams Acting Instructor Relationship Specialty Start Date End Date Nataliya Messina MD [address] [place], [place] [address]Y [facility] [address] [place] [address] PCP - General 10/02/11 01/11/22 documented as of this encounter
--- OUTSIDE RECORDS SUMMARY | 2024-01-05 02:46 | XMS_ITS | Encounter Summary ---
Author Organization [facility] Address [facility] [place] [address] Care Team Providers Care Dat Instructor Name Role Phone Nataliya Messina MD Primary Care Provider [phone] Reason for Visit * Reason Comments Follow-up Encounter Details Date Type Department Care Team (Late st Contact Info) Description 03/08/2018 10:30 AM EDT Office Visit Hematology/Oncology at [address] [phone] Heber Phillips MD [facility] HEMATOLOGY/[place] [address] Small cell lung cancer, right upper lobe; [...] Sign Reading Time Taken Comments Blood Pressure 132/73 03/08/2018 10:41 AM EDT Pulse 67 03/08/2018 10:41 AM EDT Temperature 36.4 ??C (97.5 ??F) 03/08/2018 10:41 AM E DT Respiratory Rate 16 03/08/2018 10:41 AM EDT Oxygen Saturation 99% 03/08/2018 10:41 AM EDT Inhaled Oxygen Concentration - - Weight 75.4 kg (166 lb 3.2 oz) 03/08/2018 10:41 AM EDT Height 168 cm (5' 6.14) 03/08/2018 10:41 AM EDT copied Body Mass Index 26.71 03/08/2018 10:41 AM EDT documented in this encounter Progress Notes * Heber Phillips MD - 03/08/2018 10:30 AM EDT Diagnosis: High-grade neuroendocrine cancer [...] appointment on small cell lung cancer and third cycle of chemotherapy with carboplatin and etoposide. He tolerates concurrent chemoradiation pretty well with mild fatigue. He noticed improvement in the breathing. Denies any nausea, vomiting or pain. No fever or chills. PMH: No interval changes since last visit CT in 2013 status post 2 stents placement, [...] radiating to right leg ??? My[place] about 6 [place] ago [place] [facility] [place]?? 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 Marital [...] Social History Narrative Lives with his in [place], [place]. 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 Hematological: Negative for adenopathy. BP 132/73 (Patient Position: Sitting) Pulse 67 Temp 36.4 ??C (97.5 ??F) (Oral) Resp 16 Ht 168 cm (5' 6.14) Comment: copied Wt 75.4 kg (166 lb 3.2 oz) SpO2 99% BMI 26.71 kg/m2 Wt Readings from Last 3 Encounters: 03/08/18 75.4 kg (166 lb 3.2 oz) 02/24/18 73.6 kg (162 lb 3.2 oz) 02/17/18 77 kg (169 lb 12.8 oz) Physical Exam Constitutional: He [...] labile. He exhibits a depressed mood. Labs: 03/07/2018 sodium 137, potassium 4.2, BUN 12, creatinine 1.0, calcium 8.7, TB 0.2, AST 25, ALT 37, alkaline phosphatase 123, total protein 7.6, albumin 3.5, WBC 3.68, hemoglobin 10.5, platelet count 270, ANC 1.66. Imagin12/31/2017 PET IMPRESSION 1. FDG avid right upper lobe mass, most consistent with primary lung malignancy. 2. Adjacent FDG avid 6 mm pulmonary nodule suspicious for a satellite malignancy. 3. No regional renato or distant sites of metastasis 12/30/17 brain MRI: IMPRESSION: No evidence of metastatic disease. [facility] Day, Cycle Day 1, Cycle 1 CARBOplatin (PARAPLATIN) IV 524 mg etoposide (VEPESID) IV 100 mg/m2/dose = 185 mg methylPREDNISolone acetate (DEPO-Medrol) Epid [facility] 01/27/2018 Day, Cycle Day 2, Cycle 1 CARBOplatin (PARAPLATIN) IV etoposide (VEPESID) IV 100 mg/m2/dose = 185 mg methylPREDNISolone acetate (DEPO-Medrol) Epid [facility]) 01/28/2018 Day, Cycle Day 3, Cycle 1 [...] including history of stroke, severe peripheralvascular disease, CT status post stent placement and COPD. His [...] dd 1-3 . Mr. Tillman tolerated first 2 cycles of carboplatin and etoposide well. He feels improvement in his breathing. Denies any pain, fever or chills. We will proceed with cycle 3 today. #Depression: feels better on Celexa Plan: 1. Carboplatin and etoposide today 2. Next visit with blood work and cycle 4 carboplatin and etoposide in 3 weeks documented in this encounter Plan of Treatment Upcoming Encounters Date Type Department Care Team (Late st Contact Info) Description 01/10/2024 7:45 AM EDT Appointment Hematology [place] [address] 01/21/2024 10:[address] [place] [address] Heber Phillips MD [facility] DR HEMATOLOGY/[place] [address] 03/28/2024 10:00 AM EDT Office Visit Hematology/Oncology at [address] [phone] Heber Phillips MD [facility] DR HEMATOLOGY/[place] [address] Isabella Baker APRN [facility] [place] [place] [address] documented as of this encounter Procedures Procedure Name Priority Date/Time Associated Diagnosis Comments LAB SCAN 02/14/2018 12:00 AM EDT documented in this encounter Results * SCAN DOC: LAB (02/14/2018 12:00 AM EDT) Narrative 02/14/2018 12:00 AM EDT Ordered by an unspecified provider. Scanning Provider MEDIA MGR SCAN EXT O RDR/RSLT documented in this encounter Visit Diagnoses Diagnosis Small cell lung cancer, right upper lobe SOB (shortness of breath) Shortness of breath documented in this encounter Care Teams Dat Instructor Relationship Specialty Start Date End Date Nataliya Messina MD [facility] [address] [place], [place] [address] PCP - General 4/13/12 7/24/22 documented as of this encounter
--- OUTSIDE RECORDS SUMMARY | 2024-01-05 02:46 | XMS_ITS | Encounter Summary ---
Author Organization [facility] Address [facility] [place] [address] Care Team Providers Care Rehab Consultant Name Role Phone Nataliya Messina MD Primary Care Provider [phone] Reason for Visit * Reason Comments Chemotherapy Cycle 1 day 1 * Treatment/Therapy Plan Authorization (Routine) - Closed Specialty Diagnoses / Procedures Referred By Keven lozano Referred To Contact Diagnoses Small cell lung cancer, right upper lobe Heber Phillips MD [facility] HEMATOLOGY/[place] [address] St Hem Onc Office [address] [place] [phone] Referral ID Status Reason Start Date Expiration Date Visits Re quested Visits Authorized [id number] Closed 01/20/2018 01/20/2019 1 1 Encounter Details Date Type Department Care Team (Late st Contact Info) Description 01/26/2018 12:00 PM EDT Infusion Hematology Oncology at [address] [phone] Small cell lung cancer, right [...] Sign Reading Time Taken Comments Blood Pressure 105/50 01/26/2018 12:15 PM EDT Pulse 77 01/26/2018 12:15 PM EDT Temperature 36.8 ??C (98.2 ??F) 01/26/2018 12:15 PM E DT Respiratory Rate 18 01/26/2018 12:15 PM EDT Oxygen Saturation 97% 01/26/2018 12:15 PM EDT Inhaled Oxygen Concentration - - Weight 74.6 kg (164 lb 8 oz) 01/26/2018 12:15 PM EDT Height 168 cm (5' 6.14) 01/26/2018 12:15 PM EDT Body Mass Index 26.44 01/26/2018 12:15 PM EDT documented in this encounter Progress Notes * Alyssa Perez RN - 01/26/2018 12:00 PM EDT INFUSION THERAPY ADMINISTRATION NOTES DIAGNOSIS: Cervical Cancer CYCLE #: 1 day 1 REASON FOR VISIT: Carbo/ETOP SUBJECTIVE Hieu Tillman offers no complaints. OBJECTIVE LAB DATA: WNL IV ACCESS: Mediport accessed from [facility] today, placed today at [facility] Pre administration: Chemotherapy orders independently verified for drug name, route, and dosage per patient's height, weight and BSA by ALYSSA PEREZ RN & Jarod Benitez [facility]. REACTIONS (DESCRIPTION, TIME, INTERVENTION AND EFFECTIVENESS) none ASSESSMENT Hieu Tillman was awake, alert and tolerated treatment well. Pt. chemo teaching instructions included: During clinic hours (8am-5pm Wednesday-Wednesday): pt. can call [phone] with questions or concerns. After clinic hours (5pm-8am Wednesday-Wednesday and weekends) pt can call [phone] and ask for the assembler truck trailer/oncologist plastics seasoner operator. Hieu Tillman verbalized understanding of potential chemotherapy side effects and home care includingbut not limited to- handwashing to prevent infection, signs and symptoms of low blood counts (fever, fatigue, bleeding), to call with a fever of 100.4 or greater, any significant constipation/diarrhea, importance of nutrition and fluid intake (drinking at least 32-64 ounces of non-caffeinated beverages/day), mouth care. PLAN Return to clinic per routine. documented in this encounter Plan of Treatment Upcoming Encounters Date Type Department Care Team (Late st Contact Info) Description 01/10/2024 7:45 AM EDT Appointment Hematology [place] [address] 01/21/2024 10:[address] [place] [address] Heber Phillips MD [facility] HEMATOLOGY/[place] [address] 03/28/2024 10:00 AM EDT Office Visit Hematology/Oncology at [address] [phone] Heber Phillips MD [facility] DR HEMATOLOGY/[place] [address] Isabella Baker APRN [facility] [place] [address] documented as of this encounter Visit Diagnoses Diagnosis Small cell lung cancer, right upper lobe documented in this encounter Administered Medications Inactive Administered Medications - up to 3 most recent administrations Medication Order MAR Action Action Date Dose Rate Site aprepitant (CINVANTI) injection Emul 130 mg 130 mg, Intravenous, Administer over 2 Minutes, ONCE, 1 dose, On Wed01/26/18 at 1300, Alternative administration of IV push over 2 minutes is a recommendation from the brokerage purchase and sale clerk. Administer prior to chemotherapy., Routine Given 01/26/2018 1:22 PM EDT 130 mg CARBOplatin (PARAPLATIN) 524 mg in dextrose 5% 302.4 mL chemo infusion 524 mg (rounded from 523.5 mg, Target AUC = 5), Intravenous, ONCE, 1 dose, On Wed01/26/18 at 1400, Administer over 30 Minutes, Hold Parameters: CARBOplatin, Call provider for serum creatinine less than (mg/dL): <1.0, Call provider for serum creatinine greater than (mg/dL): >1.5, External serum creatinine results used to calculate dose? Yes, Enter serum creatinine value (mg/dL): 1.15, Enter serum creatinine result date: 01/20/2018 New Bag 01/26/2018 4:00 PM EDT 524 mg 604.8 mL/hr dexamethasone (DECADRON) injection 10 mg 10 mg, Intravenous, ONCE, 1 dose, On Wed01/26/18 at 1300, Administer prior to chemotherapy Given 01/26/2018 1:22 PM EDT 10 mg etoposide (VEPESID) 185 mg in sodium chloride 0.9% Non-PVC 509.25 mL chemo infusion 185 mg (100 mg/m2/dose ? 1.85 m2 Treatment Plan BSA from Recorded weight), Intravenous, ONCE, 1 dose, On Wed01/26/18 at 1400, Administer over 120 Minutes New Bag 01/26/2018 2:05 PM EDT 185 mg 255 mL/hr heparin, porcine 100 unit/mL flush 500 Units 500 Units, Intravenous, ONCE PRN, Starting on Wed01/26/18 at 1233, Until Wed01/26/18 at 1951, Line Care, Refer to Intravenous (IV) Procedure: Accessing Implanted Vascular Access Devices (654) procedure and/or Intravenous (IV) Job Aid: Adult Flushing & Catheter Care (4841) job aid for additional information regarding guidelines and administration., Routine Given 01/26/2018 4:50 PM EDT 500 Units palonosetron (ALOXI) injection 0.25 mg 0.25 mg, Intravenous, ONCE, 1 dose, On Wed01/26/18 at 1300, Administer over 30 seconds., Routine Given 01/26/2018 1:20 PM EDT 0.25 mg sodium chloride 0.9 % flush 5-20 mL 5-20 mL, Intravenous, EVERY 1 MIN PRN, Starting on Wed01/26/18 at 1233, Until Wed01/26/18 at 1951, Line Care, Flush pertains to all indwelling lines. Flush per protocol found in the job aid using the link provided on this medication record. Refer to Intravenous (IV) Job Aid: Adult Flushing & Catheter Care (5568) job aid for additional information regarding guidelines and administration., Routine Given 01/26/2018 4:50 PM EDT 20 mLs documented in this encounter Care Teams Rehab Consultant Relationship Specialty Start Date End Date Nataliya Messina MD [address] [place] [address] PCP - General 10/02/11 01/11/22 documented as of this encounter
--- OUTSIDE RECORDS SUMMARY | 2024-01-05 02:46 | XMS_ITS | Encounter Summary ---
Author Organization [facility] [place] [address] Care Team Providers Care Rn Appeals Name Role Phone Nataliya Messina MD Primary Care Provider [phone] Reason for Visit * Reason Onset Date Comments Follow-up 02/03/2018 post chemo call Encounter Details Date Type Department Care Team (Late st Contact Info) Description 02/03/2018 Telephone Hematology/Oncology at [address] [address] Carlo Hassan RN Follow-up (post chemo call) Social History Tobacco Use Types Packs/Day Years [...] Telephone Encounter - Carlo Hassan RN - 02/03/2018 9:41 AM EDT Post chemo call Placed call to patient to assess tolerance of first time chemotherapy treatment. Regimen received: Carboplatin/Etoposide Date of treatment: 01/26/18 Assessment: Symptom?? Present (yes[Y]/no[an]/ stable[S] from baseline)?? Additional information/Assessment?? GI? Nausea?? Y?? upset stomach for 3 days?? Vomiting?? N ?? Nausea medication?? Y + effect from compazine- encouraged to continue taking Tolerating diet?? Y ?? Maintaining fluid intake (indicate volume)?? Y ??Pt reports drinking lots of water even though itdoesn't taste good Bowel movements regular?? N ??loose, runny stools Diarrhea?? Y?discussed trying imodium which Pt agrees to and will let us know if this helps or not Mouth sores?? N? General? Pain (0 none - 10 high)?? 2 ??upset stomach Using pain medications?? N Fever?? N ?? Neuro? Level of fatigue (0 - 5)?? 1 ?? Falls?? N ?? Numbness/tingling in arms/legs?? N ?? Cognitive changes?? N? Skin? Skin changes?? N ?? Pinpoint red dots?? N ?? Other S/S of bleeding?? N? IV site/VAD problems?? N Musculoskeletal? Joint swelling or tenderness?? N ?? Arthralgias or myalgias?? N ? Voiding problems?? N ?? Color and quality of urine?? baseline ?? Cardio-pulmonary? Shortness of breath?? N ?? Chest pain?? N ?? Swelling in legs?? N ?? Calf pain or tenderness?? N? Cough (productive/non-productive)?? N ?? Psychosocial? Coping?? Y ? Need prescription renewals? Other issues :? Education provided: Take imodium 1-2 tabs after every watery BM until resolved. Pt will call and let us know if this helps or not. ?? Plan:? Reinforced to patient/care-mission support specialist to call facility 11/01 with any new/worsening signs and symptoms orconcerns or questions.?? Phone number provided.?? Pt verbalized understanding and is in agreement with plan. ? documented in this encounter Plan of Treatment Upcoming Encounters Date Type Department Care Team (Late st Contact Info) Description 01/10/2024 7:45 AM EDT Appointment Hemat[place] [address] 01/21/2024 10:[address] [place] [address] Heber Phillips MD [facility] DR HEMATOLOGY/[place] [address] 03/28/2024 10:00 AM EDT Office Visit Hematology/Oncology at [address] [phone] Heber Phillips MD [facility] DR HEMATOLOGY/[place] [address] Isabella Baker APRN [facility] [place] [address] documented as of this encounter Visit Diagnoses Not on filedocumented in this encounter Care Teams Rn Appeals Relationship Specialty Start Date End Date Nataliya Messina MD [address] [place] [address] PCP - General 10/02/11 01/11/22 documented as of this encounter
--- OUTSIDE RECORDS SUMMARY | 2024-01-05 02:46 | XMS_ITS | Encounter Summary ---
Author Organization [facility] Address [facility] [place] [address] Care Team Providers Care Instrument Designer Name Role Phone Nataliya Messina MD Primary Care Provider [phone] Reason for Visit * Reason Comments Chemotherapy Cycle 2 Day 2 Etopos ada * Treatment/Therapy Plan Authorization (Routine) - Closed Specialty Diagnoses / Procedures Referred By Keven lozano Referred To Contact Diagnoses Small cell lung cancer, right upper lobe Heber Phillips MD [facility] HEMATOLOGY/[place] [address] St Hem Onc Office [address] [place] [phone] Referral ID Status Reason Start Date Expiration Date Visits Re quested Visits Authorized [id number] Closed 01/20/2018 01/20/2019 1 1 Encounter Details Date Type Department Care Team (Late st Contact Info) Description 02/16/2018 12:00 PM EDT Infusion Hematology Oncology at [address] [phone] Small cell lung cancer, right [...] Sign Reading Time Taken Comments Blood Pressure 122/52 02/16/2018 11:00 AM EDT Pulse 73 02/16/2018 11:00 AM EDT Temperature 36.5 ??C (97.7 ??F) 02/16/2018 11:00 AM E DT Respiratory Rate 18 02/16/2018 11:00 AM EDT Oxygen Saturation 97% 02/16/2018 11:00 AM EDT Inhaled Oxygen Concentration - - Weight 75.1 kg (165 lb 9.6 oz) 02/16/2018 11:00 AM EDT Height 168 cm (5' 6.14) 02/16/2018 11:00 AM EDT Body Mass Index 26.61 02/16/2018 11:00 AM EDT documented in this encounter Progress Notes * Gretta Hopkins, RN - 02/16/2018 12:00 PM EDT INFUSION THERAPY ADMINISTRATION NOTES DIAGNOSIS:Small Cell Lung Cancer CYCLE #: 2 Day 2 REASON FOR VISIT: ETOPOSIDE SUBJECTIVE Hieu Tillman offers no complaints. OBJECTIVE LAB DATA: WNL IV ACCESS: Mediport accessed from yesterday, excellent blood return Pre administration: Chemotherapy orders independently verified for drug name, route, and dosage per patient's height, weight and BSA by Gretta Hopkins, BOB & [facility] onsite. REACTIONS (DESCRIPTION, TIME, INTERVENTION AND EFFECTIVENESS) none ASSESSMENT Hieu Tillman was awake, alert and tolerated treatment well. PLAN Return to clinic 02/16 for day 3. documented in this encounter Plan of Treatment Upcoming Encounters Date Type Department Care Team (Late st Contact Info) Description 01/10/2024 7:45 AM EDT Appointment [place] [address] 01/21/2024 10:[address] [place] [place] [address] Heber Phillips MD [facility] DR HEMATOLOGY/[place] [address] 03/28/2024 10:00 AM EDT Office Visit Hematology/Oncology at [address] [phone] Heber Phillips MD [facility] DR HEMATOLOGY/[place] [address] Isabella Baker APRN [facility] [place] [address] documented as of this encounter Visit Diagnoses Diagnosis Small cell lung cancer, right upper lobe documented in this encounter Administered Medications Inactive Administered Medications - up to 3 most recent administrations Medication Order MAR Action Action Date Dose Rate Site dexamethasone (DECADRON) injection 10 mg 10 mg, Intravenous, ONCE, 1 dose, On Wed02/16/18 at 1245, Administer prior to chemotherapy Given 02/16/2018 1:03 PM EDT 10 mg etoposide (VEPESID) 185 mg in sodium chloride 0.9% Non-PVC 509.25 mL chemo infusion 185 mg (100 mg/m2/dose ? 1.85 m2 Treatment Plan BSA from Recorded weight), Intravenous, ONCE, 1 dose, On Wed02/16/18 at 1345, Administer over 120 Minutes New Bag 02/16/2018 1:35 PM EDT 185 mg 254.6 mL/hr heparin, porcine 100 unit/mL flush 500 Units 500 Units, Intravenous, ONCE PRN, Starting on Wed02/16/18 at 1219, Until Wed02/16/18 at 1756, Line Care, Refer to Intravenous (IV) Procedure: Accessing Implanted Vascular Access Devices (764) procedure and/or Intravenous (IV) Job Aid: Adult Flushing & Catheter Care (1448) job aid for additional information regarding guidelines and administration., Routine Given 02/16/2018 3:51 PM EDT 500 Units sodium chloride 0.9 % flush 5-20 mL 5-20 mL, Intravenous, EVERY 1 MIN PRN, Starting on Wed02/16/18 at 1219, Until Wed02/16/18 at 1756, Line Care, Flush pertains to all indwelling lines. Flush per protocol found in the job aid using the link provided on this medication record. Refer to Intravenous (IV) Job Aid: Adult Flushing & Catheter Care (2629) job aid for additional information regarding guidelines and administration., Routine Given 02/16/2018 3:51 PM EDT 20 mLs documented in this encounter Care Teams Instrument Designer Relationship Specialty Start Date End Date Nataliya Messina MD [address] [place] [address] PCP - General 10/02/11 01/11/22 documented as of this encounter
--- OUTSIDE RECORDS SUMMARY | 2024-01-05 02:46 | XMS_ITS | Encounter Summary ---
[place] [address] Care Team Providers Care Photo Tube Assembler Name Role Phone Nataliya Messina MD Primary Care Provider [phone] Encounter Details Date Type Department Care Team (Late Contact Info) Description 01/13/2018 Telephone Radiation Oncology at [address] [phone] Silvano Perez Social History Tobacco Use Types Packs/Day Years [...] encounter Miscellaneous Notes * Telephone Encounter - Silvano Perez - 01/13/2018 2:34 PM EDT Radiation Oncology New Patient Scheduling Note I called Hieu to inform him that Dr. Ortiz has referred him to see Dr. Cadena for a radiation new patient consultation. I have confirmed his appointments on Wednesday 01/17 will include a 30 minute visit at 1:30 to see our clinic nurse, followed by a [address] Cadena. I confirmed our address and answered all of his questions, and our contact information should any further questions or concerns arise. documented in this encounter Plan of Treatment Upcoming Encounters Date Type Department Care Team (Late Contact Info) Description 01/10/2024 7:45 AM EDT Appointment [place] [address] 01/21/2024 10:[address] [place] [place] [address] Heber Phillips MD [facility] [address] [place]EMATOLOGY/[place] [address] 03/28/2024 10:00 AM EDT Office Visit Hematology/Oncology at [address] [phone] Heber Phillips MD [facility] DR HEMATOLOGY/[place] [address] Isabella Baker APRN [facility] [place] [address] documented as of this encounter Visit Diagnoses Not on filedocumented in this encounter Care Teams Photo Tube Assembler Relationship Specialty Start Date End Date Nataliya Messina MD [address] [place] [address] PCP - General 10/02/11 01/11/22 documented as of this encounter
--- OUTSIDE RECORDS SUMMARY | 2024-01-05 02:46 | XMS_ITS | Encounter Summary ---
Author Organization [facility] [place] [address] Care Team Providers Care Food Porter Name Role Phone Nataliya Messina MD Primary Care Provider [phone] Reason for Referral * Diagnostic Test (Routine) - Closed Specialty Diagnoses / Procedures Referred By Contac t Referred To Contact Radiology Diagnoses Mass of right lung Procedures NM Lung Perfusion Scan NM Lung Quant Perf/Vent Kingsley Ortiz MD [facility] [place] [address] [place] [address] Referral ID Status Reason Start Date Expiration Date V isits Requested Visits Authorized [id number] Closed Specialty Service Requested 01/07/2018 01/07/2019 1 1 Reason for Visit * Diagnostic Test (Routine) - Closed Specialty Diagnoses / Procedures Referred By Contac t Referred To Contact Radiology Diagnoses Mass of right lung Procedures NM Lung Perfusion Scan NM Lung Quant Perf/Vent Kingsley Ortiz MD [facility] [place] [address] [place] [address] Referral ID Status Reason Start Date Expiration Date V isits Requested Visits Authorized [id number] Closed Specialty Service Requested 01/07/2018 01/07/2019 1 1 Encounter Details Date Type Department Care Team (Latest Contact Info) Description 01/10/2018 1:51 PM EDT - 01/10/2018 11:59 PM EDT Hospital Encounter Nuclear Medicine at [facility] [place] [address] Kingsley Ortiz MD [facility] [place] [address] Mass of right lung Discharge Disposition: Home [...] Take by mouth. 11/02/2016 10/13/2022 LORazepam (ATIVAN) 0.5 mg TabletIndications:Mass of right lung Take 1 tablet of 0.5 mg ativan 2 hours prior to MRI and 1 tablet 30 mins prior to MRI 2 tablet 12/28/2017 02/17/2018 hydrALAZINE (APRESOLINE) 25 mg Tablet Take 1 tablet by mouth as needed (take one tab for SBP>150. re-check in one hour and if SBP still >>150, call vascular surgery). 20 tablet 10/22/2016 03/03/2018 clopidogrel (PLAVIX) 75 mg tablet Take 1 [...] AM EDT Appointment [place]ematology [place] [address] 01/21/2024 10:[address] [place] [place] [address] Heber Phillips MD [facility] HEMATOLOGY/[place] [address] 03/28/2024 10:00 AM EDT Office Visit Hematology/Oncology at [address] [phone] Heber Phillips MD [facility] HEMATOLOGY/[place] [address] Isabella Baker APRN [facility] [place] [address] documented as of this encounter Procedures Procedure Name Priority Date/Time Associated Diagnosis Comments NM LUNG PERFUSION PLANAR Routine 01/10/2018 2:35 PM EDT Mass of right lung documented in this encounter Results * NM Lung Perfusion Scan (01/10/2018 2:35 PM EDT) Anatomical Region Laterality Modality Nuclear Medicine Addenda Addendum by Tino Gallardo MD on 01/10/2018 5:23 PM EDT --------ADDENDUM #1-------- SPECT-CT quantitative analysis: Right upper lobe perfusion is 20% of the total (right plus left) lung perfusion. Differential lung perfusion is 51% to the right lung and 49% to the left lung. --------ORIGINAL REPORT -------- EXAMINATION: Quantitative lung scan CLINICAL HISTORY: RIGHT LUNG MASS TECHNIQUE: Technetium 99m MAA a was administered intravenously in a dose of 4 mCi. Images of the lungs are then obtained in the anterior and posterior projections. SPECT-CT of the lungs was also obtained for lobar analysis of perfusion. COMPARISON: None FINDINGS: Planar images show heterogeneous tracer uptake in both lungs. QUANTITATIVE ANALYSIS: Pulmonary perfusion: right lung 53 %, left lung 47 % IMPRESSION: 1. ??Differential lung perfusion is 53% to the right lung and 47% to the left lung. 2. ??SPECT-CT quantitative analysis of right upper lobe perfusion will be reported as an addendum to this report. Impressions 01/10/2018 3:49 PM EDT 1. ??Differential lung perfusion is 53% to the right lung and 47% to the left lung. 2. ??SPECT-CT quantitative analysis of right upper lobe perfusion will be reported as an addendum to this report. Narrative 01/10/2018 3:49 PM EDT EXAMINATION: Quantitative lung scan CLINICAL HISTORY: RIGHT LUNG MASS TECHNIQUE: Technetium 99m MAA a was administered intravenously in a dose of 4 mCi. Images of the lungs are then obtained in the anterior and posterior projections. SPECT-CT of the lungs was also obtained for lobar analysis of perfusion. COMPARISON: None FINDINGS: Planar images show heterogeneous tracer uptake in both lungs. QUANTITATIVE ANALYSIS: Pulmonary perfusion: right lung 53 %, left lung 47 % Procedure Note Tino Gallardo MD - 01/10/2018 EXAMINATION: Quantitative lung scan CLINICAL HISTORY: RIGHT LUNG MASS TECHNIQUE: Technetium 99m MAA a was administered intravenously in a doseof 4 mCi. Images of the lungs are then obtained in the anterior and posterior projections. SPECT-CT of the lungs was also obtained for lobar analysis of perfusion. COMPARISON: None FINDINGS: Planar images show heterogeneous tracer uptake in both lungs. QUANTITATIVE ANALYSIS: Pulmonary perfusion: right lung 53 %, left lung 47 % IMPRESSION 1. Differential lung perfusion is 53% to the right lung and 47% to theleft lung. 2. SPECT-CT quantitative analysis of right upper lobe perfusion will be reported as an addendum to this report. Kingsley Ortiz MD [facility] NM ORDERABLES documented in this encounter Visit Diagnoses Diagnosis Mass of right lung documented in this encounter Administered Medications Inactive Administered Medications - up to 3 most recent administrations Medication Order MAR Action Action Date Dose Rate Site technetium (Tc-99m) macroaggregated albumin (MAA) injection 4 mCi 4 mCi, Intravenous, ONCE PRN, 1 dose, Starting on Wed01/10/18 at 1405, Until Wed01/10/18 at 1405, Per Protocol, Routine Given 01/10/2018 2:05 PM EDT 4 mCi documented in this encounter Care Teams Food Porter Relationship Specialty Start Date End Date Nataliya Messina MD [address] [place] [address] PCP - General 10/02/11 01/11/22 documented as of this encounter
--- OUTSIDE RECORDS SUMMARY | 2024-01-05 02:46 | XMS_ITS | Encounter Summary ---
Author Organization [facility] Address [facility] [place] [address] Care Team Providers Care Manager Web Name Role Phone Nataliya Messina MD Primary Care Provider [phone] Reason for Visit * Reason Comments Chemotherapy * Treatment/Therapy Plan Authorization (Routine) - Closed Specialty Diagnoses / Procedures Referred By Keven lozano Referred To Contact Diagnoses Small cell lung cancer, right upper lobe Heber Phillips MD [facility] DR HEMATOLOGY/[place] [address] St Hem Onc Office [address] [place] [phone] Referral ID Status Reason Start Date Expiration Date Visits Re quested Visits Authorized [id number] Closed 01/20/2018 01/20/2019 1 1 Encounter Details Date Type Department Care Team (Late st Contact Info) Description 01/28/2018 1:00 PM EDT Infusion Hematology Oncology at [address] [address] Small cell lung cancer, right [...] Reading Time Taken Comments Blood Pressure 125/59 01/28/2018 12:57 PM EDT Pulse 64 01/28/2018 12:57 PM EDT Temperature - - Respiratory Rate 18 01/28/2018 12:5 7 PM EDT Oxygen Saturation 99% 01/28/2018 12: 57 PM EDT Inhaled Oxygen Concentration - - Weight 76.6 kg (168 lb 12.8 oz) 018 12:57 PM EDT Height 168 cm (5' 6.14) 01/28/2018 12: 57 PM EDT Body Mass Index 27.13 01/28/2018 12:57 PM EDT documented in this encounter Progress Notes * Dung Barajas, RN - 01/28/2018 1:00 PM EDT INFUSION THERAPY ADMINISTRATION NOTES DIAGNOSIS: Small Cell Lung CA CYCLE #: Day 3 Cycle 1 REASON FOR VISIT: Chemotherapy SUBJECTIVE Hieu offers no complaints. OBJECTIVE LAB DATA: From 01/20: WBC 8.69; PLT 519; ANC 5.96; BUN 21; CREAT 1.15 IV ACCESS: Implanted port Pre administration: Chemotherapy orders independently verified for drug name, route, and dosage per patient's height, weight and BSA by Fortino Hamm RN & Jackie Hassan RN REACTIONS (DESCRIPTION, TIME, INTERVENTION AND EFFECTIVENESS) none ASSESSMENT Hieu was awake, alert and tolerated treatment well. Port flushed with 20 ml NS and 500 Units Heparin Then De accessed PLAN Return to clinic per routine. documented in this encounter Plan of Treatment Upcoming Encounters Date Type Department Care Team (Late st Contact Info) Description 01/10/2024 7:45 AM EDT Appointment Hematology [place] [address] 01/21/2024 10:[address] [place] [phone] Heber Phillips MD [facility] HEMATOLOGY/[place] [address] 03/28/2024 10:00 AM EDT Office Visit Hematology/Oncology at [address] [address] Heber Phillips MD [facility] [address] HEMATOLOGY/[place] [address] Isabella Baker APRN [facility] [place] [address] documented as of this encounter Visit Diagnoses Diagnosis Small cell lung cancer, right upper lobe documented in this encounter Administered Medications Inactive Administered Medications - up to 3 most recent administrations Medication Order MAR Action Action Date Dose Rate Site dexamethasone (DECADRON) injection 10 mg 10 mg, Intravenous, ONCE, 1 dose, On Wed01/28/18 at 1330, Administer prior to chemotherapy Given 01/28/2018 1:26 PM EDT 10 mg etoposide (VEPESID) 185 mg in sodium chloride 0.9% Non-PVC 509.25 mL chemo infusion 185 mg (100 mg/m2/dose ? 1.85 m2 Treatment Plan BSA from Recorded weight), Intravenous, ONCE, 1 dose, On Wed01/28/18 at 1430, Administer over 120 Minutes New Bag 01/28/2018 1:50 PM EDT 185 mg 255 mL/hr heparin, porcine 100 unit/mL flush 500 Units 500 Units, Intravenous, ONCE PRN, Starting on Wed01/28/18 at 1315, Until Wed01/28/18 at 1815, Line Care, Refer to Intravenous (IV) Procedure: Accessing Implanted Vascular Access Devices (654) procedure and/or Intravenous (IV) Job Aid: Adult Flushing & Catheter Care (9708) job aid for additional information regarding guidelines and administration., Routine Given 01/28/2018 4:00 PM EDT 500 Units sodium chloride 0.9 % flush 5-20 mL 5-20 mL, Intravenous, EVERY 1 MIN PRN, Starting on Wed01/28/18 at 1315, Until Wed01/28/18 at 1815, Line Care, Flush pertains to all indwelling lines. Flush per protocol found in the job aid using the link provided on this medication record. Refer to Intravenous (IV) Job Aid: Adult Flushing & Catheter Care (0372) job aid for additional information regarding guidelines and administration., Routine Given 01/28/2018 4:00 PM EDT 20 mLs documented in this encounter Care Teams Manager Web Relationship Specialty Start Date End Date Nataliya Messina MD [address] [place] [address] PCP - General 10/02/11 01/11/22 documented as of this encounter
--- OUTSIDE RECORDS SUMMARY | 2024-01-05 02:46 | XMS_ITS | Encounter Summary ---
Author Organization [facility] Address [facility] [place] [address] Care Team Providers Care Sorting Livestock Worker Name Role Phone Nataliya Messina MD Primary Care Provider [phone] Reason for Referral * Consultation (Routine) - Closed Specialty Diagnoses / Procedures Referred By Contac t Referred To Contact Radiation Oncology Diagnoses Small cell lung cancer, right upper lobe Procedures Simulation for Radiation Therapy Planning Mikhail Cadena MD [address] [place] [address] [place] [address] [facility] Rad Onc Office [address] [place] [phone] Referral ID Status Reason Start Date Expiration Date V isits Requested Visits Authorized [id number] Closed Consult, Test & Treat 01/17/2018 01/17/2019 1 1 Reason for Visit * Consultation (Routine) - Closed Specialty Diagnoses / Procedures Referred By Contac t Referred To Contact Radiation Oncology Diagnoses Mass of right lung Kingsley Ortiz MD [facility] [place] [address] Mikhail Cadena MD [address] [place] [address] [place] [address] Referral ID Status Reason Start Date Expiration Date V isits Requested Visits Authorized [id number] Closed Consult, Test & Treat 01/11/2018 01/11/2019 1 1 Encounter Details Date Type Department Care Team (Late st Contact Info) Description 01/17/2018 2:00 PM EDT Office Visit Radiation Oncology at [address] [phone] Mikhail Cadena MD [address] [place] [address] [place] [address] Small cell lung cancer, right [...] Sign Reading Time Taken Comments Blood Pressure 100/53 01/17/2018 1:47 PM EDT Pulse 82 01/17/2018 1:47 PM EDT Temperature 36.5 ??C (97.7 ??F) 01/17/2018 1:47 PM ED T Respiratory Rate 16 01/17/2018 1:47 PM EDT Oxygen Saturation 98% 01/17/2018 1:47 PM EDT Inhaled Oxygen Concentration - - Weight 73.9 kg (163 lb) 01/17/2018 1:47 PM EDT Height - - Body Mass Index 26.31 01/05/2018 7:50 AM EDT documented in this encounter Patient Instructions * Patient Instructions* Mikhail Cadena MD - 01/17/2018 2:00 PM EDT Dear Mr. Tillman, Dr. Ortiz asked for me to see you to discuss how radiation therapy can be used to treat your lung cancer and this note is to recap our discussion regarding use of radiation treatments. As your radiation oncologist, I work closely with your other healthcare providers and most importantly, with you to make sure that the treatments we discuss and offer keep your personal preferences and goals in min d. We discussed the following next steps as part of your cancer evaluation and/or treatment: ?? Radiation treatments for small cell lung cancer: Small cell lung cancer is an aggressive form oflung cancer that is typically treated by a combination of chemotherapy and radiation (not surgery).Based on your PET scan, the lung cancer appears to be confined to your lung and therefore the goal of all treatments going forward will be to cure this cancer. The chemotherapy is typically given for3 days in a row (Wednesday through ) every 3 weeks. The radiation is given daily and there are two acceptable ways of giving radiation - either twice a day, 5 days a week (Wednesday through Wednesday) for 3 weeks OR once a day, 5 days a week for 6-7 weeks. ?? Other treatment options include: chemotherapy by itself or no treatment at all. These are less likely to cure your lung cancer. After the chemotherapy and radiation is complete we will also discuss the possibility of a short course of radiation to the brain (called PCI, or prophylactic cranial irradiation). The goal of this brain radiation is to prevent this lung cancer from appearing in your brain. Mapping scan to plan your radiation treatments: Your radiation therapy will involve using high energy radiation which kills cancer but also normal healthy tissues. In order to make sure the radiation goes to the cancerous tissues and to also avoid radiating the normal tissues, we design radiationbeams beams into special shapes which come from various different directions. Because no two peopleand no two cancers are completely identical, the radiation plan we create for you will be unique toyou and your body. In order to figure out how many beams to use, how much radiation to give, which angles they should come from, and how they should be shaped, we have asked you to undergo a mapping scan here in our department known as a CT simulation, or CT sim, for short. This is essentially a CAT-scan with IV contrast dye, similar to scans which you may have received before, but slightly different in a few ways: First, it allows us to place you in the exact same position which you should expect to be placed during each of your radiation treatment sessions. Second, it lets us better understand where the radiation targets and the normal tissues that we want to avoid exist, in relation toeach other and the radiation beams. Following this scan, we then perform additional calculations and measurements to create the absolute best plan possible for you. Depending on the complexity of theplan, these processes can take from just few hours to several days, and for that we ask for your pat ience. If you have any questions about the planning process or your custom radiation plan, I would be more than happy to review the plan with you during your first week of treatment. Your start date and time will be provided once the simulation scan is completed. Our goal is to start you either with the first or second round of chemotherapy. During your radiation treatments, you can expect to seeme once per week so that I can examine you to make sure you are tolerating radiation treatments andso that we can monitor your response to treatment. If you need to see me any other day, one of my colleagues or I would be happy to see you - just ask one of the radiation therapists or radiation nurses for assistance. Please be sure to drink lots of water before this scan: Because you will be receiving IV contrast dye that can damage kidneys, I recommend that you drink lots of water the day before, day of and day after your CAT scan with us. I define 'lots' of water as 64 ounces each day. ?? Side effects of treatment: We briefly discussed short term (temporary) side effects of treatmentas well as possible terminal system operator (late, permanent) side effects of radiation treatment. If they occur,short term side effects may include cough, shortness of breath, heartburn or fatigue. termite renewal inspector side effects may include permanent damage to the lungs that may cause coughing and/or shortness of breat h. Any amount of radiation can also increase the risk of developing a cancer later in life caused by radiation. This is a low but real risk, and it grows over time. We estimate that your risk of a radiation caused cancer grows by 1% over the general population risk for each 10 years you are alive. Please do not hesitate to call me at [phone] with any other questions or concerns you have. IfI am not here, one of our radiation oncology nurses can assist you or help you get in touch with me. A Radiation Oncology doctor is also special education assistant after our normal hours and on weekends for urgent questions or concerns related to radiation treatments that can not wait until normal business hours. To reach the on-call doctor after-hours, just call and have the rip machine operator page the Radiation Oncologist special education assistant. And, as always, if you experience any life-threatening emergencies which any include the following,you need to seek emergency care immediately by calling 911: 1. Sudden and unexpected breathing difficulty without any exertion 2. Sudden onset of chest pain 3. Sudden onset of severe pain or uncontrolled pain 4. Sudden onset of severe weakness and/or unable to walk 5. Sudden new onset of a seizure 6. Fall resulting in injury 7. Uncontrollable bleeding Mikhail Dutta MD [employer] Radiation Oncology [facility] documented in this encounter Progress Notes * Mikhail Cadena MD - 01/17/2018 2:00 PM EDT Images from the original note were not included. Radiation Oncology Consult Note Mikhail Cadena MD, MS [facility] [phone] PATIENT IDENTIFICATION: PATIENT NAME: Hieu Tillman DATE OF : 1955 REFERRING PROVIDER: Kingsley Ortiz MD [facility] [place] [address] REASON FOR CONSULTATION : Small cell lung cancer, right upper lobe Staging form: Lung, AJCC 8th Edition - Clinical: Stage IIIA (cT3, cN1, cM0) - Signed by Mikhail Cadena MD on 01/13/2018 HISTORY OF PRESENT ILLNESS: Hieu Tillman is a 62 y.o. male recently diagnosed with a small cell lung cancer of the right upper lobe. He was seen in the setting of hemoptysis where chest x- ray and later CT the chest showed a right upper lobe mass. He was referred to Dr. Ortiz on 12/28 who recommended staging PET and MRI that showed a hypermetabolic right upper lobe mass without any evidence of regional or distant metastatic disease. Staging endobronchial ultrasound on 01/05 with biopsies of the left level 4 level 7 and right level 4 was attempted. The right hilar mass was also visualized and biopsied. 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 Given this diagnosis, Hieu has been referred for consideration of definitive chemoradiation. REVIEW OF SYSTEMS: On further questioning, he reports pain in his right upper chest. He rates the pain as 2/10, ever the biopsy but he is not taking any medication for this. Following the biopsy he has had some small volume hemoptysis, but none today. Remainder review is positive for cough and shortness of breath. A comprehensive 14 point review of systems was conducted with this patient and is otherwise negative except as documented above. This patient reported questionnaire is available for review in 'scanned documents.' PAST MEDICAL HISTORY Past Medical History: Diagnosis Date ??? Allergic [...] radiating to right leg ??? Myocardial infarction [place] about 6 years ago @ [facility]has stents ??? PVD (peripheral vascular disease) 10/28/2011 [...] ANGIOPLASTY WITH STENT PLACEMENT ? ? PRO [facility] EBUS GUIDED SAMPL 3/> NODE STATION/STRUX N/A 01/05/2018 BRONCH, W ENDOBRONCHIAL ULTRASOUND (EBUS) GUIDED SAMPLING, 3+ NODES (WRVU 5.21) performed by Kingsley Ortiz MD at [facility] MAIN OR ??? PRO THROMBOENDARTECTMY NECK, NECK INCIS Right 10/20/2016 @ENDARTERECTOMY, CAROTID, VERTEBRAL,SUBCLAVIAN W\WO PATCH GRAFT (WRVU 21.16) performed by Omero Wills MD at [facility] MAIN OR CONTRAINDICATIONS TO RADIATION THERAPY: None ?? Prior radiation therapy: No ?? Active Lupus: No ?? Systemic Scleroderma: No MEDICATIONS AND ALLERGIES: Medications 01/17/18 1409 Medication Sig Taking? magnesium chloride (MAG-DELAY ORAL) Take 60 mg by mouth. LORazepam (ATIVAN) 0.5 mg Tablet Take 1 tablet of 0.5 mg ativan 2 hours prior to MRI and 1 tablet 30 mins prior to MRI tiotropium (SPIRIVA WITH HANDIHALER) 18 mcg Capsule, w/Inhalation Device Inhale 18 mcg into the lungs 2 times daily. lisinopril (PRINIVIL;ZESTRIL) 20 mg Tablet Take 1 tablet by mouth daily. hydrALAZINE (APRESOLINE) 25 mg Tablet Take 1 tablet by mouth as needed (take one tab for SBP>150. re-check in one hour and if SBP still >>150, call vascular surgery). meTOPROLOL tartrate (LOPRESSOR) 25 mg Tablet Take [...] mcg/Actuation inhaler 2 Puff(s), Inh, Twice daily Patient taking differently: 2 Puff(s), Inh, Twice daily PRN Allergies Allergen Reactions ??? Contrast [Iodine And Iodide Containing Products] Anaphylaxis and Hives He has tolerated IV dye since with premedication. History of anaphylaxis as well. SOCIAL HISTORY: Portal: [place], [place] Living Situation: Lives alone, is in the process of getting a divorce. Sisters / neighbors are his primary social support. 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 Hypertension Father ??? Hyperlipidemia Father ??? Cerebrovascular Accident Father ??? Emphysema Mother ??? Macular Degeneration Neg Hx ??? Glaucoma Neg Hx ??? Diabetes Neg Hx ??? Cancer Neg Hx PHYSICAL EXAM BP 100/53 (Patient Position: Sitting) Pulse 82 Temp 36.5 ??C (97.7 ??F) (Oral) Resp 16 Wt 73.9 kg (163 lb) SpO2 98% BMI 26.31 kg/m2 General: alert, well appearing, and in no distress sitting in exam room with sisters Crystal and Tita at side HEENT - no cervical / SCV LAD CV - nl s1/s2, no mrg Resp - CTAB TODAY'S PERFORMANCE STATUS: KPS Score ECOG Grade Definition X 90-100 [...] selfcare; totally confined to bed or chair PATHOLOGY REVIEW: Pathology was reviewed in the medical record and is summarized below: Site: Right hilar mass biopsy Histology / Grade: High grade NEC Reviewed at [facility]? Y IMAGING REVIEW: I have personally reviewed the following scans, and interpret them as follows. PET/CT 12/31/17 - large hilar mass with satellite nodule. No other regional or distant metastatic disease. Japanese Tutor imaging copied below. ASSESSMENT / PLAN: Hieu Tillman is a 62 y.o. male diagnosed with limited stage small cell lung cancer. I reviewed the rationale, logistics, toxicities and complications associated with definitive chemoradiation for small cell lung cancer with Hieu and his sisters today in clinic. A referral to medical oncology has been placed and is pending for 01/19. Informed consent was obtained from Hieu today in clinic. Tthe most likely long- term risk he faces is for radiation pneumonitis. In the short term there is a chance of esophagitis is a possibility aswell. Hieu will return on Wednesday for a planning simulation CT scan. All of this patient's questions were answered to his fullest satisfaction, and we have provided him with our contact information should any further questions or concerns arise. SUMMARY OF PLAN / RECOMMENDATION: 1. Intent of therapy: Curative 2. Clinical Trial Availability: No 3. Med /onc consult pending 01/19 4. Informed consent obtained for radiotherapy to the right lung, 30 fractions to be delivered in St. . Simulation scheduled for Friday 01/19, anticipate RT to start concurrently with cycle 1 of chemotherapy. TIME ATTESTATION: At least 40 minutes of this 60 minute visit was spent with the patient [id number] reviewing his interval medical history and answering questions related to his lung cancer. MIKHAIL CADENA MD, MS * Aruna Guillory RN - 01/17/2018 2:00 PM EDT RADIATION ONCOLOGY NURSING INITIAL NURSING ASSESSMENT IDENTIFICATION: Hieu Tillman is a 62 y.o. year-old male with Lung cancer PRESENTING SYMPTOMS/CHIEF COMPLAINT:cough with hemoptysis REVIEW OF SYSTEMS: IN THE PAST 12 MONTHS HAVE YOU: Fallen more than one time? no Injured yourself as result of the fall? no Experienced difficulty with walking/problems with balance? no Do you use any assistive devices no (If patient does not know or declines to answer, please note in the 3 star option) If patient answered yes to any of the above, please offer to print out one of the following resources that may apply to them: Stay Independent http://www.cdc.gov/steadi/pdf/stay_independent_brochure-a.pdf What you can do to prevent falls http://www.cdc.gov/steadi/pdf/what_you_can_do_brochure-a.pdf Check for Safety-A home fall prevention checklist for older adults http://www.cdc.gov/steadi/pdf/check_for_safety_brochure-a.pdf Postural Hypotension-What is it and how to manage it http://www.cdc.gov/steadi/pdf/postural_hypotension-a.pdf Chair Rise Exercises to strengthen the muscles of things and buttocks http://www.cdc.gov/steadi/pdf/chair_rise_exercise-a.pdf Any history of collagen vascular diseases:none Any Implanted Devices/Hardware: stents If yes please put alert in ARIA patient summary Prior radiotherapy: no Site: Date: Physician/Location: Prior Chemotherapy: No Drug(s): Physician/Location: Date of last treatment: Prior Hormone Therapy: No Drug(s): Physician/Location: RADIOLOGY SAFETY QUESTIONS REVIEWED: If applicable MRICTSAFETYQUESTIONS LEARNING ASSESSMENT REVIEWED: ADVANCED DIRECTIVE: PAIN ASSESSMENT: 5] out of 10 Right chest *eD-H Adult PCS Flow Sheet if 4 or above SOCIAL ASSESSMENT: See EDH social assessment information entered. Support Systems: sisters Barriers to treatment: none Referrals/Interventions: RADIATION SPECIFIC TEACHING:* [facility] Radiation Therapy and You Site specific teaching :* Other: PLAN: documented in this encounter Plan of Treatment Upcoming Encounters Date Type Department Care Team (Late st Contact Info) Description 01/10/2024 7:45 AM EDT Appointment Hematology [place] [address] 01/21/2024 10:[address] [place] [address] Heber Phillips MD [facility] DR HEMATOLOGY/[place] [address] 03/28/2024 10:00 AM EDT Office Visit Hematology/Oncology at [address] [phone] Heber Phillips MD [facility] DR HEMATOLOGY/[place] [address] Isabella Baker APRN [facility] [place] [address] Scheduled Orders Name Type Priority Associated Diagnoses Orde r Schedule Simulation for Radiation Therapy Planning Procedures Routine Small cell lung cancer, right upper lobe Ordered: 01/17/2018 documented as of this encounter Visit Diagnoses Diagnosis Small cell lung cancer, right upper lobe documented in this encounter Care Teams Sorting Livestock Worker Relationship Specialty Start Date End Date Nataliya Messina MD [address] [place] [address] PCP - General 10/02/11 01/11/22 documented as of this encounter
--- OUTSIDE RECORDS SUMMARY | 2024-01-05 02:46 | XMS_ITS | Encounter Summary ---
Author Organization [facility] Address [facility] [place] [address] Care Team Providers Care Liner Inserter Name Role Phone Nataliya Messina MD Primary Care Provider [phone] Reason for Visit * Reason Comments Chemotherapy Cycle 3 Day 1 Carbop latin/Etoposide * Treatment/Therapy Plan Authorization (Routine) - Closed Specialty Diagnoses / Procedures Referred By Keven lozano Referred To Contact Diagnoses Small cell lung cancer, right upper lobe Heber Phillips MD [facility] DR HEMATOLOGY/[place] [address] St Hem Onc Office [address] [place] [phone] Referral ID Status Reason Start Date Expiration Date Visits Re quested Visits Authorized [id number] Closed 01/20/2018 01/20/2019 1 1 Encounter Details Date Type Department Care Team (Late st Contact Info) Description 03/08/2018 11:00 AM EDT Infusion Hematology Oncology at [address] [phone] Small cell lung cancer, right [...] of this encounter Progress Notes * Gretta Hopkins, RN - 03/08/2018 11:00 AM EDT INFUSION THERAPY ADMINISTRATION NOTES DIAGNOSIS: Cervical Cancer CYCLE #: 3 Day 1 REASON FOR VISIT: Carboplatin/Etoposide SUBJECTIVE Hieu Tillman offers no complaints. OBJECTIVE LAB DATA: WNL IV ACCESS: Mediport accessed, blood return present, flushes easily. Port left accessed for treatment tomorrow. Pre administration: Chemotherapy orders independently verified for drug name, route, and dosage per patient's height, weight and BSA by Gretta Hopkins, RN & [facility] onsite. REACTIONS (DESCRIPTION, TIME, INTERVENTION AND EFFECTIVENESS) none ASSESSMENT Hieu Tillman was awake, alert and tolerated treatment well. PLAN Return to clinic tomorrow for treatment. documented in this encounter Plan of Treatment Upcoming Encounters Date Type Department Care Team (Late st Contact Info) Description 01/10/2024 7:45 AM EDT Appointment Hematology [place] [address] 01/21/2024 10:[address] [place] [place] [address] Heber Phillips MD [facility] DR HEMATOLOGY/[place] [address] 03/28/2024 10:00 AM EDT Office Visit Hematology/Oncology at [address] [address] Heber Phillips MD [facility] DR HEMATOLOGY/[place] [address] Isabella Baker APRN [facility] [place] [address] documented as of this encounter Visit Diagnoses Diagnosis Small cell lung cancer, right upper lobe documented in this encounter Administered Medications Inactive Administered Medications - up to 3 most recent administrations Medication Order MAR Action Action Date Dose Rate Site aprepitant (CINVANTI) injection Emul 130 mg 130 mg, Intravenous, Administer over 2 Minutes, ONCE, 1 dose, On Wed03/08/18 at 1145, Alternative administration of IV push over 2 minutes is a recommendation from the manager completions. Administer prior to chemotherapy., Routine Given 03/08/2018 11:55 AM EDT 130 mg CARBOplatin (PARAPLATIN) 516 mg in dextrose 5% 301.6 mL chemo infusion 516 mg (rounded from 515.5 mg, Target AUC = 5), Intravenous, ONCE, 1 dose, On Wed03/08/18 at 1245, Administer over 30 Minutes, Hold Parameters: CARBOplatin, Call provider for serum creatinine less than (mg/dL): <1.0, Call provider for serum creatinine greater than (mg/dL): >1.5, External serum creatinine results used to calculate dose? Yes, Enter serum creatinine value (mg/dL): 1.15, Enter serum creatinine result date: 01/20/2018 New Bag 03/08/2018 12:31 PM EDT 516 mg 603.2 mL/hr dexamethasone (DECADRON) injection 10 mg 10 mg, Intravenous, ONCE, 1 dose, On Wed03/08/18 at 1145, Administer prior to chemotherapy Given 03/08/2018 11:58 AM EDT 10 mg etoposide (VEPESID) 185 mg in sodium chloride 0.9% Non-PVC 509.25 mL chemo infusion 185 mg (100 mg/m2/dose ? 1.85 m2 Treatment Plan BSA from Recorded weight), Intravenous, ONCE, 1 dose, On Wed03/08/18 at 1245, Administer over 120 Minutes New Bag 03/08/2018 1:14 PM EDT 185 mg 254.6 mL/hr heparin, porcine 100 unit/mL flush 500 Units 500 Units, Intravenous, ONCE PRN, Starting on Wed03/08/18 at 1126, Until Wed03/08/18 at 1731, Line Care, Refer to Intravenous (IV) Procedure: Accessing Implanted Vascular Access Devices (374) procedure and/or Intravenous (IV) Job Aid: Adult Flushing & Catheter Care (1945) job aid for additional information regarding guidelines and administration., Routine Given 03/08/2018 3:27 PM EDT 500 Units palonosetron (ALOXI) injection 0.25 mg 0.25 mg, Intravenous, ONCE, 1 dose, On Wed03/08/18 at 1145, Administer over 30 seconds., Routine Given 03/08/2018 11:53 AM EDT 0.25 mg sodium chloride 0.9 % flush 5-20 mL 5-20 mL, Intravenous, EVERY 1 MIN PRN, Starting on Wed03/08/18 at 1126, Until Wed03/08/18 at 1731, Line Care, Flush pertains to all indwelling lines. Flush per protocol found in the job aid using the link provided on this medication record. Refer to Intravenous (IV) Job Aid: Adult Flushing & Catheter Care (8706) job aid for additional information regarding guidelines and administration., Routine Given 03/08/2018 3:27 PM EDT 20 mLs documented in this encounter Care Teams Liner Inserter Relationship Specialty Start Date End Date Nataliya Messina MD [address] [place] [address] [address] [facility] [address] [place] [address] PCP - General 10/02/11 01/11/22 documented as of this encounter
--- OUTSIDE RECORDS SUMMARY | 2024-01-05 02:46 | XMS_ITS | Encounter Summary ---
Author Organization [facility] [place] [address] Care Team Providers Care Materials Planning Analyst Name Role Phone Nataliya Messina MD Primary Care Provider [phone] Reason for Referral * Consultation (Routine) - Closed Specialty Diagnoses / Procedures Referred By Contac t Referred To Contact Radiation Oncology Diagnoses Mass of right lung Kingsley Ortiz MD [facility] [place] [address] Mikhail Cadena MD [address] [place] [address] [place] [address] Referral ID Status Reason Start Date Expiration Date V isits Requested Visits Authorized [id number] Closed Consult, Test & Treat 01/11/2018 01/11/2019 1 1 * Diagnostic Test (Routine) - Closed Specialty Diagnoses / Procedures Referred By Contac t Referred To Contact Radiology Diagnoses Mass of right lung Procedures NM Lung Perfusion Scan NM Lung Quant Perf/Vent Kingsley Ortiz MD [facility] [place] [address] [place] [address] Referral ID Status Reason Start Date Expiration Date V isits Requested Visits Authorized [id number] Closed Specialty Service Requested 01/07/2018 01/07/2019 1 1 * Consultation (Routine) - Closed Specialty Diagnoses / Procedures Referred By Keven lozano Referred To Contact Hematology and Oncology Diagnoses Mass of right lung Kingsley Ortiz MD [facility] [place] [address] [facility] Hem Onc Office [address] [place] [phone] Referral ID Status Reason Start Date Expiration Date V isits Requested Visits Authorized [id number] Closed Consult, Test & Treat 01/06/2018 01/06/2019 1 1 Encounter Details Date Type Department Care Team (Late Contact Info) Description 01/06/2018 Orders Only [place] [address] Chriss Zarate RN Mass of right lung Social History Tobacco [...] as of this encounter Miscellaneous Notes * Addendum Note - Chriss Zarate RN - 01/11/2018 3:39 PM EDTAddended by: CHRISS ZARATE on: 01/11/2018 03:39 PM Modules accepted: Orders * Addendum Note - Chriss Zarate RN - 01/07/2018 4:47 PM EDTAddended by: CHRISS ZARATE on: 01/07/2018 04:47 PM Modules accepted: Orders documented in this encounter Plan of Treatment Upcoming Encounters Date Type Department Care Team (Late st Contact Info) Description 01/10/2024 7:45 AM EDT Appointment Hematology [place] [address] 01/21/2024 10:[address] [place] [address] Heber Phillips MD [facility] DR HEMATOLOGY/[place] [address] 03/28/2024 10:00 AM EDT Office Visit Hematology/Oncology at [address] [address] Heber Phillips MD [facility] DR HEMATOLOGY/[place] [address] Isabella Baker APRN [facility] [place] [address] Scheduled Referrals Name Type Priority Associated Diagnoses Order Schedule Referral to Hematology and Oncology Outpatient Referral Routine Mass of right lung Ordered: 01/06/2018 Referral to Radiation Oncology Outpatient Referral Routine Mass of right lung Ordered: 01/11/2018 documented as of this encounter Results * NM Lung Perfusion [...] addendum to this report. Kingsley Ortiz MD IMG NM ORDERABLES documented in this encounter Visit Diagnoses Diagnosis Mass of right lung Mass of right lung documented in this encounter Care Teams Materials Planning Analyst Relationship Specialty Start Date End Date Nataliya Messina MD [address] [place] [address] PCP - General 10/02/11 01/11/22 documented as of this encounter
--- OUTSIDE RECORDS SUMMARY | 2024-01-05 02:46 | XMS_ITS | Encounter Summary ---
[place] [address] Care Team Providers Care Clerk Rating Name Role Phone Nataliya Messina MD Primary Care Provider [phone] Encounter Details Date Type Department Care Team (Late st Contact Info) Description 02/17/2018 1:15 PM EDT Office Visit Radiation Oncology at [address] [address] Mikhail Cadena MD [address] [place] [address] RADIATION ONCOLOGY [place], [place] [id number] Small cell lung cancer, right upper lobe [...] Progress Notes * Mikhail Cadena MD - 02/17/2018 1:15 PM EDT Images from the original note were not included. RADIATION ONCOLOGY - Weekly On Treatment Visit Note 02/17/18 Mikhail Cadena MD, MS Radiation Oncology [facility] [phone] (paging pneumatic tool operator) Pager #[phone] PATIENT IDENTIFICATION Name Hieu Tillman Date of [...] 60 Gy in 3 fractions Current Dose: 6 Gy in 3 fractions Food Service Agent Lantigua from Current Plan (minimum 60 Gy isodose volume shown): INTERVAL HISTORY Subjective: General - No changes since last seen. Started this week. Resp - No new cough or shortness of breath. Stable ESCAMILLA. Pain: Pain score today is 0/10. Nutrition: Weight today at start of therapy is 169 lbs. Eating normal diet. MEDS Medications 02/17/18 1339 Medication Sig Taking? citalopram (CELEXA) 20 mg [...] Take 1 tablet by mouth daily. Yes hydrALAZINE (APRESOLINE) 25 mg Tablet Take 1 tablet by mouth as needed (take one tab for SBP>150. re-check in one hour and if SBP still >>150, call vascular surgery). Yes meTOPROLOL tartrate (LOPRESSOR) 25 mg Tablet [...] differently: 2 Puff(s), Inh, Twice daily PRN Yes prochlorperazine (COMPAZINE) 10 mg Tablet Take 1 tablet by mouth every 6 hours as needed for Nausea. Patient not taking: Reported on 02/17/2018 emollient base (CREAM BASE TOP) Apply topically. Jeans Cream. Apply to area of radiation twice a day but no less than 2 hours before a treatment. nitroGLYcerin (NITROSTAT) 0.[address] 1 tablet under the tongue every 5 minutes as needed. Patient not taking: Reported on 01/20/2018 IMAGING / LABS: I have personally reviewed this patient's interval portal imaging to confirm accurate positioning and alignment which matches the patient's original approved treatment planning images. EXAM: Vitals 02/17/2018 SYSTOLIC 144 DIASTOLIC 64 BP Location PULSE 74 TEMPERATURE 98.1 RESPIRATIONS 20 Height (Egyptian) 5' 6.142 Height (Metric) 168 cm Weight (Egyptian) 169 lbs 13 oz Weight (Metric) 77.021 kg BODY MASS INDEX 27.29 kg/m2 Constitutional: he appears well-developed and well-nourished. [...] AM EDT Appointment Hematology [place] [address] 01/21/2024 10:[address] [place] [address] Heber Phillips MD [facility] HEMATOLOGY/[place] [address] 03/28/2024 10:00 AM EDT Office Visit Hematology/Oncology at [address] [address] Heber Phillips MD [facility] HEMATOLOGY/[place] [address] Isabella Baker APRN [facility] [place] [address] documented as of this encounter Visit Diagnoses Diagnosis Small cell lung cancer, right upper lobe documented in this encounter Care Teams Clerk Rating Relationship Specialty Start Date End Date Nataliya Messina MD [address] [place] [address] PCP - General 10/02/11 01/11/22 documented as of this encounter
--- OUTSIDE RECORDS SUMMARY | 2024-01-05 02:46 | XMS_ITS | Encounter Summary ---
Author Organization [facility] [place] [address] Care Team Providers Care Channel Worker Name Role Phone Nataliya Messina MD Primary Care Provider [phone] Encounter Details Date Type Department Care Team (Late st Contact Info) Description 02/15/2018 Notes Only Hematology/Oncology at [address] [address] Mya Saeed MSW OFFICE OF [...] Progress Notes * Mya Saeed MSW - 02/15/2018 9:13 AM EDT Follow up with pt during infusion. Reports doing fairly well. [place] and is in the process of getting electricity and water. Pt reports he did get [employer] information requested to besent to him. He has to work on [employer] jimmie for financial assistance. Reminded him [employer] can help with hisadvance directive as needed. Will continue to follow for support and resources. documented in this encounter Plan of Treatment Upcoming Encounters Date Type Department Care Team (Late st Contact Info) Description 01/10/2024 7:45 AM EDT Appointment Hematology [place] [address] 01/21/2024 10:[address] [place] [address] Heber Phillips MD [facility] DR HEMATOLOGY/[place] [address] 03/28/2024 10:00 AM EDT Office Visit Hematology/Oncology at [address] [address] Heber Phillips MD [facility] DR HEMATOLOGY/[place] [address] Isabella Baker APRN [facility] [place] [address] documented as of this encounter Visit Diagnoses Not on filedocumented in this encounter Care Teams Channel Worker Relationship Specialty Start Date End Date Nataliya Messina MD [address] [place] [address] PCP - General 10/02/11 01/11/22 documented as of this encounter
--- OUTSIDE RECORDS SUMMARY | 2024-01-05 02:46 | XMS_ITS | Encounter Summary ---
[place] [address] Care Team Providers Care Bowl Topper Name Role Phone Nataliya Messina MD Primary Care Provider Reason for Visit * Reason Onset Date Comments Diarrhea 02/04/2018 Follow up Encounter Details Date Type Department Care Team (Late st Contact Info) Description 02/04/2018 Telephone Hematology/Oncology at [address] [address] Kiley Silva RN Diarrhea (Follow up) Social History Tobacco Use Types Packs/Day Years [...] Telephone Encounter - Kiley Silva RN - 02/04/2018 8:38 AM EDT Patient stated that his diarrhea has resolved without imodium. He feels much better today. He is advised to picker tender helper the prescription anyway and to call for any questions or concerns. * Telephone Encounter - Kiley Silva RN - 02/04/2018 8:38 AM EDT ----- Message from Carlo Hassan, RN sent at 02/03/2018 9:48 AM EDT ----- Regarding: imodium Please call and check on Pt to see if he tried imodium for his diarrhea and if it resolved or not. documented in this encounter Plan of Treatment Upcoming Encounters Date Type Department Care Team (Late st Contact Info) Description 01/10/2024 7:45 AM EDT Appointment Hematology [place] [address] 01/21/2024 10:[address] [place] [address] Heber Phillips MD [facility] DR HEMATOLOGY/[place] [address] 03/28/2024 10:00 AM EDT Office Visit Hematology/Oncology at [address] [address] Heber Phillips MD [facility] DR HEMATOLOGY/[place] [address] Isabella Baker APRN [facility] [place] [address] documented as of this encounter Visit Diagnoses Not on filedocumented in this encounter Care Teams Bowl Topper Relationship Specialty Start Date End Date Nataliya Messina MD [address] [place], [place] [address] PCP - General 10/02/11 01/11/22 documented as of this encounter
--- OUTSIDE RECORDS SUMMARY | 2024-01-05 02:46 | XMS_ITS | Encounter Summary ---
Author Organization [facility] Address [facility] [place] [address] Care Team Providers Care Supervisor Tumbling And Rolling Name Role Phone Nataliya Messina MD Primary Care Provider Encounter Details Date Type Department Care Team (Late st Contact Info) Description 01/05/2018 9:01 AM EDT - 01/05/2018 10:29 AM EDT Surgery [place] [address] Tim Rodríguez MD [facility] [place] [address] BRONCH, W ENDOBRONCHIAL ULTRASOUND (EBUS) GUIDED SAMPLING, 3+ NODES (WRVU 4.96) Social History Tobacco Use Types Packs/Day Years [...] Reading Time Taken Comments Blood Pressure 138/65 01/05/2018 10:21 AM EDT Pulse 77 01/05/2018 10:21 AM EDT Temperature 36.8 ??C (98.2 ??F) 01/05/2018 10:21 AM E DT Respiratory Rate 16 01/05/2018 10:21 AM EDT Oxygen Saturation 100% 01/05/2018 10:21 AM EDT Inhaled Oxygen Concentration - - Weight 72.6 kg (160 lb) 01/05/2018 7:50 AM EDT Height 167.6 cm (5' 6) 01/05/2018 7:50 AM EDT Body Mass Index 25.82 01/05/2018 7:50 AM EDT documented in this encounter Discharge Instructions * Discharge Instructions* Toña Tillman RN - 01/05/2018 10:30 AM EDT POST ANESTHESIA INSTRUCTIONS Go home, rest, use caution on stairs. Change positions slowly. Do not smoke if you are alone. Diet light to regular as tolerated today. If nausea occurs start with clear liquids and progress slowly. No driving, operating machinery, alcoholic beverages and no important decisions for 24 hours. Monitor IV site for signs and symptoms of infection: increasing redness, swelling, foul drainage, if occurs contact M.D. Patients who have had endotrachial tubes (this tube, used by anesthesia department, is passed down your throat after you are asleep, to ensure safe air passage during your operation). A sore throat is normal due to the tube. Cold liquids or soothing lozenges will help ease the discomfort. The generalized muscle aches are due to the medication given to you just before the tube is inserted. As the medication wears off, you may develop muscle soreness, which usually goes away in 12-24 hours. * Patient Instructions* Iglesia-Alejandro Lao MD - 01/05/2018 10:25 AM EDT Call if you have a fever of greater than 101 degrees, shaking chills, develop redness or drainage from your incision site(s), or if you have questions. During normal business hours, Wednesday- Wednesday 8:00 a.m.-5:00 p.m., please call [phone] to speak to a nurse in the Thoracic Clinic. If you get an answering machine or it is after hours or on weekends or holidays please call [phone] and askto speak to the Thoracic Physician transcription manager. Exercise & Activity Level: As you recover from surgery exercise at least 30 minutes a day. Thiscan be broken up into several times a day to achieve this goal at first, but you will be able to work up to doing all 30 minutes at once. Walking, treadmill, stationary bike, elliptical machine or stationary exercise equipment is appropriate. Diet: You should follow a regular healthy diet. Pain: Pain after surgery is normal. The goal is for you to be able to tolerate pain so you can complete your daily activities. You may notice that you have a sore throat after the procedure which is normal. Please use tylenol and ibuprofen for pain management, and if the pain does not improve give us a call. Sleep: Try to establish normal sleep patterns. Long naps during the day may make it hard for you tosleep at night. Use the pain medication at bedtime for the first week at home. Bowel Movements: After surgery, your bowel movements may not be regular for you, but you should be able to get back to your daily routine quickly. Follow up appointments: We will call you with the results of the procedure performed today. Future Appointments Date Time Provider Department Center 07/04/2018 2:20 PM Lauri Winn Jr., MD [facility] If you have any questions or concerns during normal business hours, Wednesday- Wednesday 8:00 a.m.-5:00 p.m., please call [phone] to speak to a nurse in the Thoracic Clinic. If you get an answering machine or it is after hours or on weekends or holidays please call [phone] and ask to speak to the Thoracic Physician transcription manager. documented in this encounter Medications at Time [...] 03/09/2006 05/03/2020 documented as of this encounter Progress Notes * Toña Tillman RN - 01/05/2018 11:15 AM EDT RN received a phone call from the thoracic team that the x-ray was clear. Patient may be dischargedto home. * Toña Tillman RN - 01/05/2018 11:00 AM EDT Patient's son and sister at the bedside visiting. * Toña Tillman RN - 01/05/2018 10:59 AM EDT Patient doing well. Denies pain or nausea.Chest x-ray completed. documented in this encounter H&P Notes * Kanika Grayson PA - 01/05/2018 7:46 AM EDT Patient Name: Hieu Tillman Patient Age: 62 y.o. Birthdate: 1955 Admit date: 01/05/2018 Attending Physician: Tim Rodríguez MD Thoracic Surgery Preop NAME: Hieu Tillman DATE: 01/05/18 SURGEON: TIM RODRÍGUEZ PROCEDURE: Bronchoscopy, EBUS BRIEF HISTORY: Hieu Tillman is a 62 y.o. male with RUL mass concerning for malignancy. 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 He last took Plavix on 12/28/17. The patient reports no interval change. There has been no interval medical illness or hospitalizations. Questions have been addressed. Smoking HX: History Smoking Status ??? Former Smoker ??? Packs/day: 1.00 ??? Types: Cigarettes ??? Quit date: 09/11/2013 Smokeless Tobacco ??? Never Used PMH: Patient Active Problem List Diagnosis Date Noted ??? Central artery occlusion of retina 10/19/2016 ??? CAD (coronary artery disease) 10/09/2013 ??? Chest pain 09/11/2013 ??? Hypertension 09/11/2013 ??? Hyperlipidemia 09/11/2013 ??? Emphysema/COPD 09/11/2013 ??? Stenosis of right carotid artery 10/28/2011 ??? PVD (peripheral vascular disease) 10/28/2011 ??? Low back pain radiating to right leg PSH: Past Surgical History: Procedure Laterality Date ??? CARDIAC SURGERY ??? CATARACT REMOVAL Left [address] [facility] ??? CORONARY ANGIOPLASTY WITH STENT PLACEMENT ??? PRO THROMBOENDARTECTMY NECK, NECK INCIS Right 10/20/2016 @ENDARTERECTOMY, CAROTID, VERTEBRAL,SUBCLAVIAN W\WO PATCH GRAFT (WRVU 21.16) performed by Omero Wills MD at [facility] MAIN OR MEDS: No current facility-administered medications on file prior to encounter. Current Outpatient Prescriptions on File Prior to Encounter Medication Sig Dispense Refill ??? magnesium chloride (MAG-DELAY ORAL) Take 60 mg by mouth. ??? lisinopril (PRINIVIL;ZESTRIL) 20 mg Tablet Take 1 tablet by mouth daily. 90 tablet 3 ? ? hydrALAZINE (APRESOLINE) 25 mg Tablet Take 1 tablet by mouth as needed (take one tab for SBP>150. re-check in one hour and if SBP still >>150, call vascular surgery). 20 tablet 0 ??? meTOPROLOL tartrate (LOPRESSOR) 25 mg Tablet Take 1 tablet by mouth 2 times daily. 180 tablet 3 ??? atorvastatin (LIPITOR) 80 mg tablet Take 1 tablet by mouth daily. 30 tablet 2 ??? clopidogrel (PLAVIX) 75 mg tablet Take 1 tablet by mouth daily. 90 tablet 3 ??? pantoprazole (PROTONIX) 40 mg tablet Take 1 tablet by mouth daily. 30 tablet 2 ??? hydrochlorothiazide (HYDRODIURIL) 25 mg tablet Take 25 mg by mouth daily. ??? aspirin 81 mg EC tablet Take 81 mg by mouth daily. ??? albuterol-ipratropium (COMBIVENT) 18-103 mcg/Actuation inhaler 2 Puff(s), Inh, Twice daily (Patient taking differently: 2 Puff(s), Inh, Twice daily PRN) ??? LORazepam (ATIVAN) 0.5 mg Tablet Take 1 tablet of 0.5 mg ativan 2 hours prior to MRI and 1 tablet 30 mins prior to MRI 2 tablet 0 ??? tiotropium (SPIRIVA WITH HANDIHALER) 18 mcg Capsule, w/Inhalation Device Inhale 18 mcg into thelungs 2 times daily. ??? fluticasone-vilanterol (BREO ELLIPTA) 100-25 mcg/dose Disk with Device Inhale 1 puff into the lungs daily. ??? nitroGLYcerin (NITROSTAT) 0.[address] 1 tablet under the tongue every 5 minutes as needed. 25 tablet 12 ??? FIBER CHOICE ORAL Take 1 tablet by mouth daily. ALL: Allergies Allergen Reactions ??? Contrast [Iodine And Iodide Containing Products] Anaphylaxis and Hives He has tolerated IV dye since with premedication. History of anaphylaxis as well. Physical Exam Most Recent Vitals: 01/05/18 0750 BP: 138/65 Pulse: 77 Temp: 36.8 ??C (98.2 ??F) SpO2: 100% Gen: NAD, pleasant, sitting up in bed HEENT: normocephalic, atraumatic, EOMI, sclerae anicteric Neck: supple, trachea midline Card: RRR, no M/R/G appreciated Pulm: distant but CTAB, no wheeze/ronchi/rales appreciated, non-labored breathing on RA Abd: soft, NT, BS+ Ext: warm, dry, no edema Neuro: A&Ox3, CN II-XII grossly intact, nonfocal, conversant LABS: Lab Results Component Value Date WBC 8.6 12/28/2017 RBC 4.55 (L) 12/28/2017 HGB 12.7 (L) 12/28/2017 HCT 39.1 (L) 12/28/2017 MCV 85.9 12/28/2017 MCH 27.9 12/28/2017 MCHC 32.5 12/28/2017 PLATELET 491 (H) 12/28/2017 RDWCV 14.3 (H) 12/28/2017 Lab Results Component Value Date/Time NA 137 12/28/2017 04:50 PM K 4.2 12/28/2017 04:50 PM CL 97 (L) 12/28/2017 04:50 PM CO2 23 12/28/2017 04:50 PM BUN 28 (H) 12/28/2017 04:50 PM CREATININE 1.11 12/28/2017 04:50 PM EKG (12/28/17): NSR CXR (12/10/17): A 5 cm right suprahilar pulmonary mass is demonstrated CT Chest (12/15/17): A 5.2 x 5.1 cm spiculated right upper lobe mass and right hilar adenopathy is demonstrated. A small (5.3 mm) nodule is noted in the anterior portion of the right upper lobe. ?? Stress (01/03/18): Normal myocardial perfusion study. No ischemia or scar. Left ventricular function is normal (LVEF 65%). PET (12/31/17): 1. FDG avid right upper lobe mass, most consistent with primary lung malignancy. No LAD 2. Adjacent FDG avid 6 mm pulmonary nodule suspicious for a satellite malignancy. 3. No regional renato or distant sites of metastasis. Carotid Ultrasound (01/03/18): RIGHT: A thin layer of circumferential plaque is present in the common carotid artery causing minimal stenosis. There is minimal irregular plaque in the proximal internal carotid artery causing < 15% stenosis when compared to the more distal internal carotid artery. The bifurcation level is in the mid neck. No significant change compared to previous exam. LEFT: A thin layer of circumferential plaque is present in the common carotid artery causing minimal stenosis. There is irregular plaque in the proximal internal carotid artery causing a low end of range 16-49% stenosis when compared to the more distal internal carotid artery. The bifurcation level is in the mid neck. No significant change compared to previous exam. Vertebral Artery Data: Patent vertebral arteries with normal antegrade Doppler waveforms and velocities bilaterally. PFT (12/28/17): FVc 2.90 74%, FEV1 1.19 40%, DLCO 46%, DLCO/VA 56% MED/CARD CLEARANCE/MIBI/VQ SCAN FILM ON PACS: yes CONSENT: Yes/EMR - Yes Assessment/Plan: Hieu Tillman is a 62 y.o. male presenting today for planned bronchoscopy, EBUS due to RUL mass concerning for malignancy. Consent signed and confirmed in chart. Questions addressed. Will proceed with planned surgery. MARCELLUS German 01/05/2018 Thoracic Surgery Service Pager [phone] documented in this encounter Miscellaneous Notes * Op Note - Tim Rodríguez MD - 01/05/2018 10:20 AM EDT Preoperative diagnosis: Right hilar mass Postoperative diagnosis: Right hilar mass Operative procedure: Bronchoscopy, endobronchial ultrasound with transbronchial needle aspiration right level 4, right hilar mass. Operative indications: This is a 62-year-old male was noted to have a right hilar mass after being treated for pneumonia. Biopsies indicated for diagnosis as well as staging. Operative findings: Normal tracheobronchial tree with minimal secretions and no obvious endobronchial lesions. Apical segmental bronchus with mild external narrowing. Less than 3 mm lymph nodes in the left paratracheal and subcarinal region, not biopsied. Right paratracheal lymph node biopsy ??2 considered adequate with lymphocytes. Right hilar mass biopsy considered adequate and lesional tissue. Operative dictation: After consent was obtained, the patient was brought to the operating room and placed in the supine position. Single lumen endotracheal anesthesia was administered with any difficulty, timeout was performed and a P190 Olympus bronchoscope was advanced. He had normal tracheobronchial tree with minimal secretions and no endobronchial lesions except for the right upper lobe anterior segmental bronchus which is mild narrowing of 4th generation airway. There was no blood and no endobronchial lesions noted in this area as well. We are unable to intubate this bronchus due to the angulation. The scope was removed and EBUS scope was advanced. Left level 4, level 7 and right level4 areas were evaluated under ultrasound guidance. He had less than 5 mm lymph nodes in the left level 4 and level 7 region (1 the or 2 at most). He had an 8 mm node in the right level 4 region. This was biopsied under ultrasound guidance. Specimens considered adequate. He had one other lymph node ap proximately 7 mm in size and the right level 4 region and this was also biopsied under ultrasound guidance and was also considered adequate. He had easily identified right hilar mass that went all the way down to the right upper lobe bronchus. There appeared to be no other separate lymph nodes in this area. Biopsy of the right hilar mass was performed, and the first 3 passes were considered bloody with macrophages. We moved more proximal of the trachea and biopsied through the trachea into the right hilar mass and the specimens considered adequate on intraoperative cytology. Extra specimen was placed in formalin for cell block analysis. Adequate hemostasis was ensured, all secretions were evacuated and the scope was removed. The patient was woken from anesthesia, extubated and brought to recovery in stable condition. Was present for the entire procedure and dictated this operative note. Tim Rodríguez MD. * Brief Op Note - Alejandro Keene MD - 01/05/2018 10:13 AM EDT Brief Operative Note Patient Name: Hieu Tillman : [id number] MR#: [id number] Case Date: 01/05/2018 Surgeon: Surgeon(s) and Role: * Tim Rodríguez MD - Primary * Alejandro Keene MD - Resident-Surgeon Hossein Preoperative diagnosis: Lung mass and LAD Postoperative diagnosis: Lung mass and LAD Procedure(s): BRONCH, W ENDOBRONCHIAL ULTRASOUND (EBUS) GUIDED SAMPLING, 3+ NODES (WRVU 5.21) Anesthesia: General Findings: 1. Bronchoscopy performed demonstrating normal anatomy 2. Right 4R lymph node biopsy 3. Right hilar mass biopsied Complications: none Estimated Blood Loss: < 3 cc Specimens removed during surgery: Right 4R and Right hilar mass biopsy Fluids: Intraprocedure Crystalloid Total None Fluids: ANES IntraOp Crystalloid (Filter: (AN Fluids) Medications Shown) Medication Calculated Total No medications were administered. Blood: none Urine Output: (no urine output recorded) Drains: none Disposition: Home Condition: Stable ANES IntraOp Crystalloid (Filter: (AN Fluids) Medications Shown) Medication Calculated Total No medications were administered. documented in this encounter Plan of Treatment Upcoming Encounters Date Type Department Care Team (Late st Contact Info) Description 01/10/2024 7:45 AM EDT Appointment Hematology [place] [address] 01/21/2024 10:[address] [place] [id number] Heber Phillips MD [facility] [place] [address] 03/28/2024 10:00 AM EDT Office Visit Hematology/Oncology at [address] [phone] Heber Phillips MD [facility] DR HEMATOLOGY/[place] [address] Isabella Baker APRN [facility] [place] [address] documented as of this encounter Procedures Procedure Name Priority Date/Time Associated Diagnosis Comments NON-GEOTHERMAL SHEET METAL WORKER FINAL REPORT Routine 01/05/2018 2:40 PM EDT NON-GEOTHERMAL SHEET METAL WORKER FINAL REPORT Routine 01/05/2018 2:34 PM EDT MOLECULAR GENETICS REPORT Routine 01/05/2018 2:22 PM EDT XR CHEST ONE VIEW Routine 01/05/2018 10: 57 AM EDT CYTOPATHOLOGY NON-GYNECOLOGICAL Routine 01/05/2018 9:45 AM EDT CYTOPATHOLOGY NON-GYNECOLOGICAL Routine 01/05/2018 9:33 AM EDT BRONCH, W ENDOBRONCHIAL ULTRASOUND (EBUS) GUIDED SAMPLING, 3+ NODES (WRVU 4.96) 01/05/2018 8:56 AM EDT Mass of right lung POCT GLUCOSE Routine 01/05/2018 8:00 AM EDT documented in this encounter Results * Non-Senior Receptionist Final Report (01/05/2018 2:40 PM EDT) Non-Senior Receptionist Final Report [id number] ? Location: [facility]; [facility]; A The signing pathologist has (i) examined the relevant preparation(s) for the specimen(s) and (ii) rendered or confirmed the diagnosis(es). . ? Addendum ADDENDUM DISCUSSION Tissue: ??Hilar mass, right Diagnosis: ??High grade neuroendocrine carcinoma Tumor Proportion Score (TPS): ?% Expression: ?? <1% Interpretation Table: PD-L1 assay (22C3 pharmDX) for Keytruda Tumor Proportion Score (TPS): ?<1% ?PD-L1 Negative ?>=1% ? PD-L1 Expression ?>=50% ?PD-L1 High Expression Immunohistochemical assay was performed on paraffin-embedded tissue sections fixed in 10% neutral buffered formalin for 6-72 hours using the polymer system technique with appropriate controls. The assay was performed according to the linux programmer ? 's instructions using Anti-PD-L1 (22C3, pharmDX) antibody. Electronically signed by: ??Aria García MD Verified: ??01/11/2018 ?Pathologist Performed at: ??[facility] [place], [place] ? Non-Senior Receptionist Final DIAGNOSIS Positive for Malignancy Electronically signed by: ??Bryon Garza MD Verified: ??01/10/2018 ?Pathologist Performed at: ??-[facility], [place], [place] DISCUSSION Hilar mass, right (EBUS-guided FNA): High grade neuroendocrine carcinoma (see note). Note: The aspirate is highly cellular and comprised of atypical mononuclear cells arranged in crowded clusters and singly. The lesional cells have round to angulated/ ovoid nuclei with some cells displaying a moderate amount of cytoplasm and variably prominent nucleoli. Nuclear molding and crush artifact are noted. In this sample, the tumor has features of both small cell carcinoma and focally large cell neuroendocrine carcinoma. Dr. Goncalves has kindly reviewed the cell block sections and concurs with the diagnosis. Molecular studies are being ordered; results will be issued in a molecular pathology report. --- Immunohistochemistry Studies --- Interpretation: ? Immunohistochemical assays were performed (on paraffin-embedded cell block sections fixed in 10% neutral buffered formalin for 6-72 hours) using the polymer . DISCUSSION technique with appropriate controls. The cell block sections are studied for TTF-1, p40, and synaptophysin. The lesional cells are immunoreactive with TTF-1 and synaptophysin; they are negative for p40. These immunohistochemical studies provide ancillary information and are used only in conjunction with standard diagnostic procedures. CLINICAL INFORMATION Specimen Source : Hilar mass, right (EBUS-guided FNA, assisted) Pertinent Clinical Data and Significant Therapy: Lung mass and LAD Clinical Impression: Lung mass and LAD Pertinent Radiologic Findings: (not provided) Gross Description: Received in Formalin approximately 60 mL total volume of cloudy, solange fluid, with clots. Also ??received in Formalin ??approximately 60 mL total volume of ?? cloudy, pink fluid, with clots. Total Preparation: Diff-Quik 7; Pap Stain 7; Cell Block 2. [facility] 01/05/2018 2:40 PM EDT Tim Rodríguez MD PATHOLOGY/CYTOLOGY O [facility] [place] [address] * Non-Senior Receptionist Final Report (01/05/2018 2:34 PM EDT) Non-Senior Receptionist Final Report [id number] ? Location: [facility]; [facility]; A The signing pathologist has (i) examined the relevant preparation(s) for the specimen(s) and (ii) rendered or confirmed the diagnosis(es). . ? Non-Senior Receptionist Final DIAGNOSIS Negative for Malignancy Electronically signed by: ??Greg HIGUERA, Bryon Freitas Verified: ??01/10/2018 ?Pathologist Performed at: ??-[facility], [facility], [place], [place] DISCUSSION Lymph node, right level 4 (EBUS-guided FNA): Lymphoid cells are present, consistent with lymph node sampling. Negative for metastatic carcinoma. --- Immunohistochemistry Studies --- Interpretation: ? Immunohistochemical assays were performed (on paraffin-embedded cell block sections fixed in 10% neutral buffered formalin for 6-72 hours) using the polymer technique with appropriate controls. The cell block sections are studied for TTF-1, p40, and synaptophysin. TTF-1, p40, and synaptophysin immunostains are negative for metastatic carcinoma. These immunohistochemical studies provide ancillary information and are used only in conjunction with standard diagnostic procedures. CLINICAL INFORMATION Specimen Source : Lymph node, right level 4 (EBUS-guided FNA, assisted) Pertinent Clinical Data and Significant Therapy: Lung mass and LAD Clinical Impression: Lung mass and LAD Pertinent Radiologic Findings: (not provided) Gross Description: Received in Formalin approximately 55 mL total volume of cloudy, colorless fluid, with clots. Total Preparation: Diff-Quik 2; Pap Stain 2; Cell Block 1. [facility] 01/05/2018 2:34 PM EDT Tim Rodríguez MD PATHOLOGY/CYTOLOGY O [address] [facility] [place] [address] * Molecular Genetics Report (01/05/2018 2:22 PM EDT) Molecular Report [id number] ? Location: [facility]; [facility]; A The signing pathologist has (i) examined the relevant preparation(s) for the specimen(s) and (ii) rendered or confirmed the diagnosis(es). . ?Molecular Genetics RESULTS Please refer to Pathology Report [id number] for final pathology diagnosis. TEST: ??ALK FISH SPECIMEN/SOURCE: A2-6 RESULT: ?? NEGATIVE for ??ALK rearrangement ?TOTAL # NUCLEI COUNTED = 50 ?#NUCLEI WITH REARRANGED SIGNAL = 2 (4%) ? (NORMAL RANGE ?? <15.0%) Method: Fluorescence in situ hybridization (FISH) on formalin-fixed, paraffin- embedded tissue sections was performed for rearrangement of the ? ALK gene locus with probes for the 5 ' and 3 ' regions of the ??ALK gene at 2p23 (V[employer] ALK Break Apart FISH Probe Kit). Slide adequacy and signal enumeration were evaluated and satisfactory for both control and patient slides. The results of this analysis are based on the enumeration of interphase nuclei from non-overlapping tumor cells. A signal ratio derived from the break-apart probe in ?15% of tumor cells is considered positive for this rearrangement. Interpretation: No clinically significant rearrangement of the ? ALK gene region was observed. This test 's performance was determined by the Molecular Pathology Laboratory at the [facility]. This assay is an IVD and has been cleared by the U.S. Food and Drug Administration for clinical purposes and should not be considered as investigational or for research purposes. The Molecular Pathology Laboratory is certified by the Clinical Laboratory Improvement Act of 1988 and as such is allowed to perform high complexity clinical testing. References: Mya LY, et al. N Engl J Med 2010;363:1693-703 Quinn DUMONT, et al. J Clin Oncol 2009,26:5663-1486 Edson M, et al. Nature 2007,448:561-566 Reviewed by: ?? Tanya Larsen MD ? Icicle Machine Operator, Molecular Pathology _ Electronically signed by: ??Josee HIGUERA PhD, Demarcus Hernandez Verified: ??01/26/2018 ?Pathologist Performed at: ??-[facility], [place], [place] ?Molecular Genetics RESULTS Please refer to Pathology Report [id number] for final pathology diagnosis. TEST: ??ROS1 (6q22) Break-apart FISH INDICATION FOR TESTING: ?Hilar mass, right (EBUS-guided FNA) - High-grade neuroendocrine carcinoma SAMPLE ANALYZED: A2-8 . RESULTS RESULT: ?? NEGATIVE for ??ROS1 rearrangement ?TOTAL # NUCLEI COUNTED = 50 ?#NUCLEI WITH REARRANGED SIGNAL = 0 (0%) ? (NORMAL RANGE ?? <15.0%) INTERPRETATION: No clinically significant rearrangement of the ? ROS1 gene region was observed. METHOD: Fluorescence in situ hybridization (FISH) on formalin-fixed, paraffin- embedded tissue sections was performed for rearrangement of the ? ROS1 gene locus with probes for the 5 ??' and 3' regions of the ??ROS1 gene at 6q22 using a dual-color break-apart probe (BAP) strategy (CFBank ?ROS1 (6q22) Break Probe). Slide adequacy and signal enumeration were evaluated and satisfactory for both control and patient slides. The results of this analysis are based on the enumeration of interphase nuclei from non-overlapping tumor cells. A rearranged signal derived from the break- apart probe in ?15% of tumor cells is considered positive for this rearrangement. This test was developed and its performance characteristics determined by the [facility] ([facility]) at [facility]. It has not been cleared or approved by the FDA. This test is used for clinical use and should not be considered as investigational or for research purposes. The [facility] ([facility]) is certified by the Clinical Laboratory Improvement Act of 1988 and as such is allowed to perform high complexity clinical testing. These FISH results are intended to be used as an adjunct test to existing clinical and pathologic information. REFERENCES: 1. Jeremy et. al., Vandana Med 2012;18:378-3812. 2. Sanya et. al., Clin Cancer Res. 2012 Jan 15;18:4449-57. 3. Suehara et. al., Clin Cancer Res 2012;18(24):6531-6 608. 4. Dominique et. al., J Clin Oncol 2012;30:863-870. 5. Chin et. al., J Thorac Oncol 2012;7:6639-2904. 6. Solo et. al., J Mol Diagn. 2018;20:129-159. Reviewed by: ??Tanya Larsen MD ? Icicle Machine Operator, Molecular Pathology _ Electronically signed by: ??Josee HIGUERA PhD, Demarcus Hernandez Verified: ??01/26/2018 ?Pathologist Performed at: ??-[facility] [place], [place], [place] ?Molecular Genetics RESULTS Please refer to Pathology Report for final pathology diagnosis. INDICATION FOR STUDY: ?? 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 A2 Analysis: ??Examination of DNA extracted from formalin-fixed paraffin-embedded tumor tissue for somatic mutation analysis. . RESULTS Results: ??The following gene variants were identified in the submitted tissue: CLINICALLY ACTIONABLE VARIANTS: BRAF: ??NEGATIVE EGFR: ??NEGATIVE KRAS: ??NEGATIVE PIK3CA: ??NEGATIVE OTHER DETECTED VARIANTS: TP53 ??c.610G>T p.E204* ??Exon 6 STK11 ??c.503A>T p.H168L ??Exon 4 Interpretation: ?? After review of the pathology report and slides, the specimen ( A2) was selected for mutation analysis from a panel of 50 genes. The results of this test indicate that tumor cells comprising 80.0% of the tissue specimen analyzed were normal for hotspots in the BRAF, EGFR, KRAS, PIK3CA, and 44 other genes. ??In addition, mutations of unknown clinical significance were detected in the TP53 and STK11 genes. ??Therapeutic options related to the presence or absence of mutations should be carefully assessed. Availability of other therapeutic indications and clinical trials may be possible. These results may indicate clinical trial eligibility; consider presenting at the [facility] Molecular Tumor Board for further interpretation and discussion by contacting ??[email or web address] ??. For additional information on clinically actionable variants, please visit the following websites: http://www.mycance rgenome.org/conten t/disease/lung-can cer http://www.nccn.or g/professionals/ph ysician_gls/f_guid stef.asp Methods: ??Genomic DNA was extracted from formalin-fixed paraffin-embedded tumor tissue. DNA sequencing was performed using the 50-gene Cancer Hotspot Panel (KSKT) for each gene reported. ??Sequences were aligned to the hg19 (GRCh37) reference genome. ?? This panel is designed to examine previously described and recurring somatic mutations in human tumors. ? Next-generation sequencing analysis of these genes was further confirmed by other assays during validation in our CLIA-certified laboratory. ? Normal (non-tumor) tissue from this patient has not been tested, therefore, the possibility of any detected mutations being a germline mutation cannot be ruled out. The genes assessed by the Cancer Hotspot Panel v2 include: ABL1, AKT1, ALK, APC, JOE, BRAF, CDH1, CDKN2A, CSF1R, CTNNB1, EGFR, ERBB2, ERBB4, EZH2, FBXW7, FGFR1, FGFR2, FGFR3, FLT3, GNA11, GNAQ, GNAS, HNF1A, HRAS, IDH1, IDH2, JAK2, JAK3, KDR, KIT, KRAS, MET, MLH1, MPL, NOTCH1, NPM1, NRAS, PDGFRA, PIK3CA, PTEN, PTPN11, RB1, RET, SMAD4, SMARCB1, SMO, SRC, STK11, TP53, and VHL. While DNA testing is very accurate, rare diagnostic errors due to various pre- and post-analytical variables do occur. ?? This test was developed and its performance characteristics determined by the [facility] ? ([facility]) . RESULTS Laboratory at [facility]. It has not been cleared or approved by the FDA. The laboratory is regulated under CLIA as qualified to perform high-complexity testing. This test is used for clinical purposes. It should not be regarded as investigational or for research. References : ??Bryant AG, et al. ??J Mol Diagn. 2012Sep 02(2):234-247; Wei Rowe et al. J Mol Diagn 2012Sep 02(2):171-176; Kwabena MOHAN et al. J Mol Diagn 2012 15(5):607-622; Romel GJ, et al. Clin Chem Lab Med May 2013;13:1-8. Electronically signed by: ??Rere Schreiber, Dennis Addison Verified: ??01/21/2018 ?Molecular Pathologist Performed at: ??-[facility] [place] [place], [facility] LABORATORY 01/05/2018 2:22 PM EDT Tim Rodríguez MD PATHOLOGY/CYTOLOGY O RDERABLES Performing Organization Address City/State/[facility] Co de Phone Number [facility] [place] [address] * XR Chest PA or AP 1 view (01/05/2018 10:57 AM EDT) Anatomical Region Laterality Modality Chest N/A Digital Radiogra phy Impressions 01/05/2018 11:12 AM EDT No pneumothorax or other complication. Narrative 01/05/2018 11:12 AM EDT EXAMINATION: XR CHEST PA OR AP 1 VIEW CLINICAL HISTORY: s/p EBUS right hilar mass biopsy please rule out pneumothorax TECHNIQUE: Portable AP semiupright chest COMPARISON: 12/10/2017 FINDINGS: There is no pneumothorax or other interval change allowing for the portable AP positioning. Again noted is the large RIGHT upper lobe mass. Procedure Note Harry Goncalves MD - 01/05/2018 EXAMINATION: XR CHEST PA OR AP 1 VIEW CLINICAL HISTORY: s/p EBUS right hilar mass biopsy please rule outpneumothorax TECHNIQUE: Portable AP semiupright chest COMPARISON: 12/10/2017 FINDINGS: There is no pneumothorax or other interval change allowing for theportable AP positioning. Again noted is the large RIGHT upper lobe mass. IMPRESSION No pneumothorax or other complication. Tim Rodríguez MD IMG DX ORDERABLES * Cytopathology Non-Gynecological (01/05/2018 9:45 AM EDT) AP Specimen 01/05/2018 9:45 AM EDT 01/05/2018 9:[address] [facility] - 01/05/2018 9:45 AM EDT Specimen requisition ordered. ??Separate Pathology report to follow Tim Rodríguez MD PATHOLOGY/CYTOLOGY O ASHLYN Performing Organization Address [facility] Co de Phone Number [facility] [place] [address] * Cytopathology Non-Gynecological (01/05/2018 9:33 AM EDT) AP Specimen 01/05/2018 9:33 AM EDT 01/05/2018 9:[address] [facility] - 01/05/2018 9:33 AM EDT Specimen requisition ordered. ??Separate Pathology report to follow Tim Rodríguez MD PATHOLOGY/CYTOLOGY O ASHLYN Performing Organization Address [facility] [place] [address] * POCT Glucose (01/05/2018 8:00 AM EDT) POC Glucose 111 65 - 199 mg/dL [facility] Comment: Supplemental ranges: <140 mg/dL before meals <180 mg/dL all other times of the day Blood specimen (specimen) 01/05/2018 8:00 AM EDT 01/05/2018 8:00 AM EDT Tim Rodríguez MD POINT OF CARE TEST O ASHLYN Performing Organization Address [facility] [place] [address] documented in this encounter Visit Diagnoses Diagnosis Mass of right lung Mass of right lung documented in this encounter Administered Medications Inactive Administered Medications - up to 3 most recent administrations Medication Order MAR Action Action Date Dose Rate Site acetaminophen (TYLENOL) tablet 1,000 mg 1,000 mg, Oral, ONCE, 1 dose, On Wed01/05/18 at 0800, Administer with SIP of H2O only., Day of Surgery (Day of Procedure), Routine Given 01/05/2018 8:02 AM EDT 1,000 mg heparin (Porcine) subcutaneous injection 5,000 Units 5,000 Units, Subcutaneous, PERINATAL COORDINATOR TO O.R., 1 dose, On Wed01/05/18 at 0800, Not within 60 minutes of placing epidural catheter., Day of Surgery (Day of Procedure), Routine Given 01/05/2018 8:13 AM EDT 5,000 Units Right Lower Quadrant lactated Ringers infusion 1,000 mL 1,000 mL, at 100 mL/hr, Intravenous, CONTINUOUS, Starting on Wed01/05/18 at 0800, Until Wed01/05/18 at 1131, Using macrodrip IV tubing with 2 claves and 2 stopcocks, Day of Surgery (Day of Procedure) New Bag 01/05/2018 9:15 AM EDT New Bag 01/05/2018 8:15 AM EDT 1,000 mLs 100 mL/hr lidocaine (XYLOCAINE) 20 mg/mL (2 %) injection ONCE PRN, Starting on Wed01/05/18 at 0946, Until Wed01/05/18 at 1345, Intra-Operative (Intra-Procedure), Routine Given 01/05/2018 9:46 AM EDT 20 mLs 19- Surgical Site documented in this encounter Active and Recently Administered Medications Times are shown in EDT. Scheduled Medication Order 01/03/2018 01/04/2018 01/05/2018 acetaminophen (TYLENOL) tablet 1,000 mg (COMPLETED) 1,000 mg, Oral, ONCE, 1 dose, On Wed01/05/18 at 0800, Administer with SIP of H2O only., Day of Surgery (Day of Procedure), Routine 08 (Given - Provid er: Deisi Razo RN) heparin (Porcine) subcutaneous injection 5,000 Units (COMPLETED) 5,000 Units, Subcutaneous, PERINATAL COORDINATOR TO O.R., 1 dose, On Wed01/05/18 at 0800, Not within 60 minutes of placing epidural catheter., Day of Surgery (Day of Procedure), Routine 0813 (Given - Provid er: Deisi Razo RN) Continuous Medication Order 01/03/2018 01/04/2018 01/05/2018 lactated Ringers infusion 1,000 mL (CANCELED) 1,000 mL, at 100 mL/hr, Intravenous, CONTINUOUS, Starting on Wed01/05/18 at 0800, Until Wed01/05/18 at 1131, Using macrodrip IV tubing with 2 claves and 2 stopcocks, Day of Surgery (Day of Procedure) 0815 (New Bag - Prov ider: Deisi Razo RN)0915 (New Bag - Provider: Tanya Escobar)1015 (Stopped - Provider: Tanya Escobar) PRN Medication Order 01/03/2018 01/04/2018 01/05/2018 lidocaine (XYLOCAINE) 20 mg/mL (2 %) injection (CANCELED) ONCE PRN, Starting on Wed01/05/18 at 0946, Until Wed01/05/18 at 1345, Intra-Operative (Intra-Procedure), Routine 0946 (Given - Provid er: Tim Rodríguez MD) documented in this encounter Care Teams Supervisor Tumbling And Rolling Relationship Specialty Start Date End Date Nataliya Messina MD [address] [place] [address] PCP - General 10/02/11 01/11/22 documented as of this encounter
--- OUTSIDE RECORDS SUMMARY | 2024-01-05 02:46 | XMS_ITS | Encounter Summary ---
Author Organization [facility] [place] [address] Care Team Providers Care Substitute Nurse Name Role Phone Nataliya Messina MD Primary Care Provider [phone] Encounter Details Date Type Department Care Team (Late st Contact Info) Description 01/18/2018 Telephone [place] [address] Kingsley Ortiz MD [facility] [place] [address] Social History Tobacco Use Types Packs/Day Years [...] AM EDT Appointment Hematology [place] [address] 01/21/2024 10:[address] [place] [address] Heber Phillips MD [facility] [address] HEMATOLOGY/ONCOLOGY [place], [place] [id number] 03/28/2024 10:00 AM EDT Office Visit Hematology/Oncology at [address] [phone] Heber Phillips MD [facility] [address] HEMATOLOGY/[place] [address] Isabella Baker APRN [facility] [place] [address] documented as of this encounter Visit Diagnoses Not on filedocumented in this encounter Care Teams Substitute Nurse Relationship Specialty Start Date End Date Nataliya Messina MD [address] [place] [address] PCP - General 10/02/11 01/11/22 documented as of this encounter
--- OUTSIDE RECORDS SUMMARY | 2024-01-05 02:46 | XMS_ITS | Encounter Summary ---
[place] [address] Care Team Providers Care Marriage And Family Teacher Name Role Phone Nataliya Messina MD Primary Care Provider [phone] Encounter Details Date Type Department Care Team (Late st Contact Info) Description 02/28/2018 Telephone Cardiology at [address] [phone] Lauri Winn Jr., MD [address] [place] [id number] Social History Tobacco Use Types Packs/Day Years [...] encounter Miscellaneous Notes * Telephone Encounter - Lisa Howard - 02/28/2018 4:35 PM EDT appt scheduled 03/21/2018 4 pm pt informed * Telephone Encounter - Ann Gifford RN - 02/28/2018 4:15 PM EDT Called pt and gave him instructions. OV for 03/21 at 4 pm. Pt aware * Telephone Encounter - Lauri Winn Jr., MD - 02/28/2018 3:56 PM EDT Per oncology note- having some chest pain- responds to NTG Start isosorbide 30 mg QD Follow up 2-3 weeks documented in this encounter Plan of Treatment Upcoming Encounters Date Type Department Care Team (Late st Contact Info) Description 01/10/2024 7:45 AM EDT Appointment Hematology [place] [address] 01/21/2024 10:[address] [place] [address] Heber Phillips MD [facility] DR HEMATOLOGY/[place] [address] 03/28/2024 10:00 AM EDT Office Visit Hematology/Oncology at [address] [phone] Heber Phillips MD [facility] DR HEMATOLOGY/[place] [address] Isabella Baker APRN [facility] [place] [address] documented as of this encounter Visit Diagnoses Diagnosis Chest pain, unspecified type documented in this encounter Care Teams Marriage And Family Teacher Relationship Specialty Start Date End Date Nataliya Messina MD [address] [place] [address] [address] [place] [address] PCP - General 10/02/11 01/11/22 documented as of this encounter
--- OUTSIDE RECORDS SUMMARY | 2024-01-05 02:46 | XMS_ITS | Encounter Summary ---
[place] [address] Care Team Providers Care Human Resources Team Member Name Role Phone Nataliya Messina MD Primary Care Provider Reason for Referral * Diagnostic Test (Routine) - Closed Specialty Diagnoses / Procedures Referred By Contac t Referred To Contact Radiology Diagnoses Small cell lung cancer Procedures IR Mediport Placement / Exchange Heber Phillips MD [facility] HEMATOLOGY/[place] [address] [facility] [place] [address] Referral ID Status Reason Start Date Expiration Date V isits Requested Visits Authorized [id number] Closed Specialty Service Requested 01/20/2018 01/20/2019 1 1 Reason for Visit * Diagnostic Test (Routine) - Closed Specialty Diagnoses / Procedures Referred By Contac t Referred To Contact Radiology Diagnoses Small cell lung cancer Procedures IR Mediport Placement / Exchange Heber Phillips MD [facility] HEMATOLOGY/[place] [address] [facility] [place] [address] Referral ID Status Reason Start Date Expiration Date V isits Requested Visits Authorized [id number] Closed Specialty Service Requested 01/20/2018 01/20/2019 1 1 Encounter Details Date Type Department Care Team (Latest Contact Info) Description 01/26/2018 7:01 AM EDT - 01/26/2018 11:59 PM EDT Hospital Encounter Radiology at [facility] [place] [address] Heber Phillips MD [facility] [address] HEMATOLOGY/[place] [address] Small cell lung cancer Discharge Disposition: Home [...] Sign Reading Time Taken Comments Blood Pressure 104/49 01/26/2018 10:40 AM EDT Pulse 77 01/26/2018 9:35 AM EDT Temperature 35.7 ??C (96.2 ??F) 01/26/2018 9:43 AM ED T Respiratory Rate 16 01/26/2018 10:40 AM EDT Oxygen Saturation 96% 01/26/2018 10:40 AM EDT Inhaled Oxygen Concentration - - Weight - - Height - - Body Mass Index - - documented in this encounter Discharge Instructions * Discharge Instructions* Arabella Domínguez RN - 01/26/2018 8:45 AM EDT Images from the original note were not included. [facility] Department of Vascular and Interventional Radiology Discharge Instructions for your Chest Port You have received a ???Power Port?? , which provides access for infusions and blood draws. What makes this a ???Power Port?? is the unique ability to ???power inject?? contrast (intravenous dye) through the port when getting a CT scan, which produces superior images (pictures). Patients who don???t have these special ports need to have an IV started if they need dye injected for their CT scan. Your port is printed with the letters ???CT?? which can be detected by x- ray to identify it as a ???Power Port?? . You will be provided with an ID card stating the travel med surg rn and type of port you have. Please carry this with you in a safe place. Bandage: There is a sterile dressing over the port site consisting of small gauze with a clear dressing (Tegaderm or [id number] ). This dressing should be left in place for 48 hours. If the clear dressing becomes loose you should place tape over the edges to secure it in place. Note: If you have steri-strips beneath your dressing, simply allow them to fall off. Do not peel them off. Pain: Apply ice bag to site (s) at 30 minute intervals (30 minutes on and 30 minutes off) for 24 hours?? . May use as needed for pain and/or bruising after 24 hours. Bathing: Do not take a shower until 48 hours after your port is placed; after this time you may shower with the dressing in place, then remove it and pat your skin dry. After 48 hours, we recommend that you cover the area with THE AQUA GUARD PROVIDED for 1 week while showering, facing away from theshower stream. You may use a bandaid to cover the site after the 48 hours are up if there is any drainage. No tub baths, whirlpools or swimming for one week following port placement. What to expect when your port is accessed: 1. You may feel tenderness the first few times it is accessed but generally this subsides over time. Ask your healthcare provider to use a local anesthetic on the site if discomfort is a problem for you. You may ask for a prescription for a topical cream (EMLA) from your clinician; you may apply athome prior to your appointments, to help numb the skin over your port. 2. The clinician should be wearing sterile gloves and a mask during the access procedure. Anyone inthe room with you should also have a mask on. 3. The skin over and 2 inches around the port should be cleaned with a disinfectant 4. Tell the clinician if you would like the skin numbed (lidocaine) before the access needle is placed. 5. Unless you are unable to take heparin (blood thinner), the port should be injected with a heparin solution before deaccess (at end of each treatment or blood draw). When to call your healthcare provider: ??? If you notice bleeding from the puncture site in your neck, or from the port incision on your chest, you should apply firm pressure over the site for 10-15 minutes, keeping the site covered. Callif you are still bleeding after 10-15 minutes. ??? If you develop pain, redness, drainage or swelling at or around the port site, or the puncture site in the neck ??? If you develop fever (elevation of more than 2 degrees or greater than 101F) and/or shaking chills When to call the Interventional Radiology Department: Please call with any questions or concerns. If it is during regular office hours, please call [phone]. If it is after regular office hours, or on weekends or holidays, please call [phone] and ask to speak to the Theater Education Teacher applications systems analyst for Interventional Radiology. XXX You have received medication during your procedure to help lessen anxiety and keep you comfortable. These medications affect judgement and reaction time. We recommend that you do not drive, operate equipment, sign any important documents, or smoke unattended for 24 hours following your procedure. Because of the sedation, be careful on stairs, as you may be unsteady on your feet. You may resume your regular diet as tolerated. IV site -- slight redness, or tenderness is normal, you can use a warm compress. If tenderness and redness increases or foul drainage occurs, please contact your M. D. Revised 07/05/15 documented in this encounter Medications at Time [...] mg Tablet Take by mouth. 11/02/2016 10/13/2022 prochlorperazine (COMPAZINE) 10 mg TabletIndications:Smal l cell lung cancer Take 1 tablet by mouth every 6 hours as needed for Nausea. 30 tablet 3 01/20/2018 07/04/2018 emollient base (CREAM BASE TOP) Apply topically. Jeans Cream. Apply to area of radiation twice a day but no less than 2 hours before a treatment. 03/29/2018 LORazepam (ATIVAN) 0.5 mg TabletIndications:Mass of right [...] as of this encounter Progress Notes * Rico Casiano RN - 01/26/2018 11:59 PM EDT Interventional and Vascular Radiology Post-Procedure Call Name: Britta Tillman Age: 62 y.o. Sex; Male Date of : 1955 (home) Telephone Information: PCP Nataliya Messina MD [phone] Date/Time of call: January 27, 2018/8:27 AM Procedure: Mediport Placement Procedural Provider: Ac Rivera APRN Contact with patient or if not, with whom? Yes Are you having pain related to your procedure now? Denies Are you having any swelling or bleeding from the site? Denies Are you having any other problems related to your procedure? Comments: Denies Did you understand the discharge instructions given and do you have any questions? Yes, no. Comments: Nurse Comments: Pt asked when he could resume is Plavix. Concern relayed to CECILIA Shelby whom statedthe Patient can resume Plavix today 01/27/18. * Arabella Domínguez RN - 01/26/2018 8:45 AM EDT 0829 To procedure room 2 via stretcher. Onto table supine. All monitors, O2, safety strap in place.Med's per protocol. * Gerald Rivera APRN - 01/26/2018 7:23 AM EDT ASA: 3: Patient with severe systemic disease Mallampati: II: tonsillar pillars are blocked by the tongue Cardiovascular: Rhythm: Regular Rate: Normal Pulmonary: Breath sounds clear to auscultation Consent: The sedation plan, its benefits and risks, and alternatives were discussed with the patient. The planned procedure, its benefits and risks, and alternatives were discussed with the patient. The patient consented to the procedure. Sedation Plan: moderate (conscious sedation) * Britton Muñoz MD - 01/24/2018 3:20 PM EDT Images from the original note were not included. VIR PRE-PROCEDURE NOTE Name: Britta Tillman Date of : 1955 Referring Physician: Heber Phillips MD Indication: New diagnosis of small cell lung cancer chemotherapy starting next week Planned Procedure: IR guided Mediport placement Chief Complaint/HPI: 62 y.o. male with a pmh of COPD/CAD/PVD and a right carotid endarterectomy with bovine pericardial patch angioplasty who now has a new diagnosis of high grade neuroendocrine right lung cancer. PET and MRI showed a hypermetabolic right upper lobe mass without any evidence of regional or distant metastatic disease. The patient will be starting chemotherapy next week. IR has been consulted to place a mediport for treatment. Of note, The patient has an anaphylactic allergy to iodine contrast listed in chart. Patient Active Problem List Diagnosis Code ??? [...] cell lung cancer, right upper lobe C34.11 Allergies Allergen Reactions ??? Contrast [Iodine And Iodide Containing Products] Anaphylaxis and Hives He has tolerated IV dye since with premedication. History of anaphylaxis as well. Labs: Lab Results Component Value Date/Time WBC 8.6 12/28/2017 04:50 PM ANC 11.55 (H) 09/12/2013 04:30 AM HCT 39.1 (L) 12/28/2017 04:50 PM PLATELET 491 (H) 12/28/2017 04:50 PM INR 0.9 10/19/2016 03:10 PM BUN 28 (H) 12/28/2017 04:50 PM CREATININE 1.11 12/28/2017 04:50 PM Imaging: Physical Exam: Pending (to be performed in angio) ASA: Pending (to be assessed in angio) Mallampati Class: Pending (to be assessed in angio) Assessment / Plan: 62 y.o. male with a new diagnosis of high grade neuroendocrineright lung cancer who will undergo chemotherapy starting next week. IR has been consulted and will place a mediport for treatments. Patient has an anaphylactic allergy to iodine contrast listed in chart. Prophylactic antibiotic: Cefazolin Sedation Plan: Moderate Medications to hold: none Planned access site: TBD Position: supine Consent: pending arrival in IR. Britton Muñoz MD Theater Education Teacher PGY-5 Pager # [phone] * Arabella Domínguez RN - 01/21/2018 3:04 PM EDT ANGIO NURSING DATABASE Name: BRITTA TILLMAN Date of : 1955 AGE 62 y.o. Address: [address] [place] [address] (home) Mobile: Telephone Information: Referring Provider: Heber Phillips REASON FOR VISIT: Mediport placement: Order Questions Answers Where will study be performed? [facility] [120] Is the patient on anticoagulant / anitplatelet therapy ? No Reason for exam and clinical history: New diagnosis of small cell lung cancer, limited stage, chemotherapy starting next week Exam/Procedure requested: Mediport placement Date/time of procedure: Pertinent info from Pre-call (if any): Labs ordered: Med's stopped: COPY/PASTE Procedure Plan from provider's note, bottom of MD workup Allergies Allergen Reactions ??? Contrast [Iodine And Iodide Containing Products] Anaphylaxis and Hives He has tolerated IV dye since with premedication. History of anaphylaxis as well. Pertinent PMH: Patient Active Problem List Diagnosis Code ??? [...] cell lung cancer, right upper lobe C34.11 Pertinent PSH: Past Surgical History: Procedure Laterality Date ??? CARDIAC SURGERY ??? CATARACT REMOVAL Left [address] [facility] ??? CORONARY ANGIOPLASTY WITH STENT PLACEMENT ? ? PRO [facility] EBUS GUIDED SAMPL 3/> NODE STATION/STRUX N/A 01/05/2018 BRONCH, W ENDOBRONCHIAL ULTRASOUND (EBUS) GUIDED SAMPLING, 3+ NODES (WRVU 5.21) performed by Kingsley Ortiz MD at [facility] MAIN OR ??? PRO THROMBOENDARTECTMY NECK, NECK INCIS Right 10/20/2016 @ENDARTERECTOMY, CAROTID, VERTEBRAL,SUBCLAVIAN W\WO PATCH GRAFT (WRVU 21.16) performed by Omero Wills MD at [facility] MAIN OR Date/Procedure Comments: 12/07/11 Right common iliac stent Fentanyl 200, Versed 2, protamine 30, ancef 1g, Heparin 5000 IV 01/26/18 Mediport placement?? Cefazolin 2 gm IV, Fentanyl 200 mcg IV, Versed 3.5 mg IV? Laboratory Results: Lab Results Component Value Date INR 0.9 10/19/2016 Lab Results Component Value Date CREATININE 1.11 12/28/2017 Lab Results Component Value Date K 4.2 12/28/2017 Lab Results Component Value Date PLATELET 491 (H) 12/28/2017 Medications: Prior to Admission medications Medication Sig Start Date End Date Taking? Authorizing Provider prochlorperazine (COMPAZINE) 10 mg Tablet Take 1 tablet by mouth every 6 hours as needed for Nausea. 01/20/18 Heber Phillips MD emollient base (CREAM BASE TOP) Apply topically. Jeans Cream. Apply to area of radiation twice a day but no less than 2 hours before a treatment. Mikhail Cadena MD magnesium chloride (MAG-DELAY ORAL) Take 60 mg by mouth. PROVIDER, HISTORICAL LORazepam (ATIVAN) 0.5 mg Tablet Take 1 tablet of 0.5 mg ativan 2 hours prior to MRI and 1 tablet 30 mins prior to MRI Patient not taking: Reported on 01/19/2018 12/28/17 Kingsley Ortiz MD tiotropium (SPIRIVA WITH HANDIHALER) 18 mcg Capsule, w/Inhalation Device Inhale 18 mcg into the lungs 2 times daily. PROVIDER, HISTORICAL lisinopril (PRINIVIL;ZESTRIL) 20 mg Tablet Take 1 tablet by mouth daily. 10/22/16 Omero Wills MD hydrALAZINE (APRESOLINE) 25 mg Tablet Take 1 tablet by mouth as needed (take one tab for SBP>150. re-check in one hour and if SBP still >>150, call vascular surgery). Patient not taking: Reported on 01/20/2018 10/22/16 Omero Wills MD meTOPROLOL tartrate (LOPRESSOR) 25 mg Tablet Take 1 tablet by mouth 2 times daily. 10/22/16 Bryon Ward MD fluticasone-vilanterol (BREO ELLIPTA) 100-25 mcg/dose Disk with Device Inhale 1 puff into the lungsdaily. PROVIDER, HISTORICAL atorvastatin (LIPITOR) 80 mg tablet Take 1 tablet by mouth daily. 09/13/13 Mayela Brennan APRN clopidogrel (PLAVIX) 75 mg tablet Take 1 tablet by mouth daily. 09/13/13 Mayela Brennan APRN nitroGLYcerin (NITROSTAT) 0.[address] 1 tablet under the tongue every 5 minutes as needed. Patient not taking: Reported on 01/20/2018 09/13/13 Mayela Brennan APRN pantoprazole (PROTONIX) 40 mg tablet Take 1 tablet by mouth daily. 09/13/13 Mayela Brennan APRN hydrochlorothiazide (HYDRODIURIL) 25 mg tablet Take 25 mg by mouth daily. PROVIDER, HISTORICAL FIBER CHOICE ORAL Take 1 tablet by mouth daily. PROVIDER, HISTORICAL aspirin 81 mg EC tablet Take 81 mg by mouth daily. PROVIDER, HISTORICAL albuterol-ipratropium (COMBIVENT) 18-103 mcg/Actuation inhaler 2 Puff(s), Inh, Twice daily Patient taking differently: 2 Puff(s), Inh, Twice daily PRN 03/09/06 documented in this encounter Plan of Treatment Upcoming Encounters Date Type Department Care Team (Late st Contact Info) Description 01/10/2024 7:45 AM EDT Appointment Hematology [place] [address] 01/21/2024 10:[address] [place] [address] Heber Phillips MD [facility] HEMATOLOGY/[place] [address] 03/28/2024 10:00 AM EDT Office Visit Hematology/Oncology at [address] [address] Heber Phillips MD [facility] [address] HEMATOLOGY/[place] [address] Isabella Baker APRN [facility] [place] [address] documented as of this encounter Procedures Procedure Name Priority Date/Time Associated Diagnosis Comments IR MEDIPORT PLACEMENT Routine 01/26/2018 9:42 AM EDT Small cell lung cancer documented in this encounter Results * IR Mediport Placement [...] meets criteria. 2) Port ready for use. Lifestyle Block Farmer(s): Associate Provider: Gerald Rivera APRN. I was present during the intraservice time as documented by the IR nurse. Attending: Dr. Pittman, not present for the procedure 01/26/2018 Heber Phillips MD IMG IR ORDERABLES documented in this encounter Visit Diagnoses Diagnosis Small cell lung cancer Malignant neoplasm of bronchus and lung, unspecified site documented in this encounter Administered Medications Inactive Administered Medications - up to 3 most recent administrations Medication Order MAR Action Action Date Dose Rate Site ceFAZolin (ANCEF) 2g in dextrose 5% 100 mL 2 g, Intravenous, ONCE, 1 dose, On Wed01/26/18 at 0800, Administer over 30 Minutes, Redose every 3 hours if CrCl is greater than 20. Redose every 8 hours if CrCl is less than 20., Day of Surgery (Day of Procedure), Indication for (Active or Suspected): Prophylaxis New Bag 01/26/2018 8:25 AM EDT 2 g 200 mL/hr fentaNYL 50 mcg/mL multi-dose injection 25-50 mcg, Intravenous, EVERY 5 MIN PRN, Starting on Wed01/26/18 at 0715, Until Wed01/26/18 at 0930, Pain, per unit protocol, - Start dose 50 mcg (reduce dose to 25 mcg if history of sedation sensitivity). - Titration dose 25-50 mcg IV, (based on patient response) every 3 minutes PRN, to maintain procedural pain less than 2 per pain Scale. Maximum dose: 50 mcg/dose, 250 mcg/hour For use in Interventional Radiology (IR) only for procedural sedation with direct provider supervision and verbal order., Angio/IR (Intra-Procedure), Routine Given 01/26/2018 9:20 AM EDT 25 mcg Given 01/26/2018 9:14 AM EDT 25 mcg Given 01/26/2018 9:05 AM EDT 25 mcg lidocaine (XYLOCAINE) 10 mg/mL (1 %) injection 10 mg 10 mg, Subcutaneous, ONCE, 1 dose, On Wed01/26/18 at 0745, For use in Interventional Radiology (IR) only for procedure with direct provider supervision and verbal order., Angio/IR (Intra-Procedure), Routine Given 01/26/2018 9:09 AM EDT 10 mg lidocaine-EPINEPHrine 1 %-1:100,000 injection 10 mL 10 mL, Intra-articular, ONCE, 1 dose, On Wed01/26/18 at 0930, Warning Vesicant/Irritant Medication , Angio/IR (Intra-Procedure), Routine Given 01/26/2018 9:16 AM EDT 20 mLs lidocaine-EPINEPHrine 1 %-1:100,000 injection 1 dose, Starting on Wed01/26/18 at 0817, Until Wed01/26/18 at 0916, ARABELLA DOMÍNGUEZ: cabinet override midazolam (PF) (VERSED) 1 mg/mL multi-dose injection 0.5-1 mg 0.5-1 mg, Intravenous, EVERY 3 MIN PRN, Starting on Wed01/26/18 at 0715, Until Wed01/26/18 at 0930, Sleep, - Start dose; 1 mg (Reduce dose to 0.5 mg if history of sedation sensitivity). - Titration dose: 0.5 mg - 1 mg (based on patient response) every 3 minutes PRN to obtain RASS score of -3. Maximum dose: 1 mg per dose, 5 mg/hour. For use in Interventional Radiology (IR) only for procedural sedation with direct provider supervision and verbal order., Angio/IR (Intra-Procedure), Routine Given 01/26/2018 9:19 AM EDT 0.5 mg Given 01/26/2018 9:06 AM EDT 0.5 mg Given 01/26/2018 8:57 AM EDT 0.5 mg sodium chloride 0.9 % flush 5 mL 5 mL, Intravenous, EVERY 12 HOURS, First dose on Wed01/26/18 at 0800, Until Discontinued, Day of Surgery (Day of Procedure), Routine Given 01/26/2018 8:25 AM EDT 5 mLs sodium chloride 0.9% infusion 1,000 mL, at 100 mL/hr, Intravenous, CONTINUOUS, Starting on Wed01/26/18 at 0800, Until Wed01/26/18 at 1106, Day of Surgery (Day of Procedure) New Bag 01/26/2018 8:00 AM EDT 1,000 mLs 100 mL/hr documented in this encounter Care Teams Human Resources Team Member Relationship Specialty Start Date End Date Nataliya Messina MD [address] [place] [address] PCP - General 10/02/11 01/11/22 documented as of this encounter
--- OUTSIDE RECORDS SUMMARY | 2024-01-05 02:46 | XMS_ITS | Encounter Summary ---
Author Organization [facility] [place] [address] Care Team Providers Care Cake Inspector Name Role Phone Nataliya Messina MD Primary Care Provider Encounter Details Date Type Department Care Team (Late st Contact Info) Description 01/18/2018 Multidisciplinary Ca re Committee Radiation Oncology at [address] [phone] Mikhail Cadena MD [address] [place] [address] DR RADIATION ONCOLOGY [place], [place] [id number] Social History Tobacco Use Types Packs/Day Years [...] Progress Notes * Mikhail Cadena MD - 01/18/2018 8:53 AM EDT Thoracic - Tumor Board Note Date Presented: 01/18/2018 Presenting Physician: Son Cadena Diagnosis/Tumor Site: high grade neuroendocrine cancer, limited stage Is this Metastatic Disease: No Synopsis of History/HPI: 62M diagnosed with RUL mass in setting of hemoptysis Imaging: CT, PET/CT reviewed - large RUL mass noted. No evidence of metastatic disease. Pathology/Histology: EBUS specimen reviewed - consistent with high grade NEC Stage: limited stage Clinical Data (Exams, Labs, etc.): Molecular Pathology Results: Clinical Trial Availability: none Options Discussed: chemoradiation - RT twice daily vs once daily, followed by consideration for PCI. Recommendations: as above DISCLAIMER: The patient was discussed and the tumor board made recommendations but it is ultimatelyup to the treatment provider(s) and the patient to determine the patient???s care. documented in this encounter Plan of Treatment Upcoming Encounters Date Type Department Care Team (Late st Contact Info) Description 01/10/2024 7:45 AM EDT Appointment Hematology [place] [address] 01/21/2024 10:[address] [place] [address] Heber Phillips MD [facility] DR HEMATOLOGY/[place] [address] 03/28/2024 10:00 AM EDT Office Visit Hematology/Oncology at [address] [address] Heber Phillips MD [facility] DR HEMATOLOGY/[place] [address] Isabella Baker APRN [facility] [place] [address] documented as of this encounter Visit Diagnoses Not on filedocumented in this encounter Care Teams Cake Inspector Relationship Specialty Start Date End Date Nataliya Messina MD [address] [place], [place] [address] [address] [place] [address] PCP - General 10/02/11 01/11/22 documented as of this encounter
--- OUTSIDE RECORDS SUMMARY | 2024-01-05 02:46 | XMS_ITS | Encounter Summary ---
Author Organization [facility] [place] [address] Care Team Providers Care Printer Machine Name Role Phone Nataliya Messina MD Primary Care Provider [phone] Encounter Details Date Type Department Care Team (Late st Contact Info) Description 02/24/2018 10:30 AM EDT Office Visit Radiation Oncology at [address] [phone] Mikhail Cadena MD [address] [place] [address] [place] [address] Small cell lung cancer, right [...] Sign Reading Time Taken Comments Blood Pressure 131/78 02/24/2018 10:00 AM EDT Pulse 78 02/24/2018 10:00 AM EDT Temperature 36.6 ??C (97.9 ??F) 02/24/2018 10:00 AM E DT Respiratory Rate 18 02/24/2018 10:00 AM EDT Oxygen Saturation 98% 02/24/2018 10:00 AM EDT Inhaled Oxygen Concentration - - Weight 73.6 kg (162 lb 3.2 oz) 02/24/2018 10:00 AM EDT shoes on Height - - Body Mass Index 26.07 02/17/2018 9:28 AM EDT documented in this encounter Progress Notes * Mikhail Cadena MD - 02/24/2018 10:30 AM EDT Images from the original note were not included. RADIATION ONCOLOGY - Weekly On Treatment Visit Note 02/24/18 Mikhail Cadena MD, MS Radiation Oncology [facility] [phone] (paging stripping and booking machine operator) Pager #[phone] PATIENT IDENTIFICATION Name Hieu Tillman Date of [...] 60 Gy in 3 fractions Current Dose: 14 Gy in 7 fractions Jewellery Designer Lantigua from Current Plan (minimum 60 Gy isodose volume shown): INTERVAL HISTORY Subjective: General - Overall feels better this week, since starting Celexa. Resp - No new cough or shortness of breath. Stable ESCAMILLA. No esophagitis symptoms. CV - He has taken his SL NTG x 2 since last seen for 'painful gas' symptoms. Pain: Pain score today is 0/10. Nutrition: Weight at start of therapy was 169 lbs --> 162 lbs this week. Eating normal diet. MEDS Medications 02/24/18 1053 Medication Sig Taking? citalopram (CELEXA) 20 mg Tablet Take 1 tablet by mouth daily. If no effect after 7d can increase to 40mg Yes emollient base (CREAM BASE TOP) Apply topically. Jeans Cream. Apply to area of radiation twice a day but no less than 2 hours before a treatment. Yes magnesium chloride (MAG-DELAY ORAL) Take 60 [...] Take 1 tablet by mouth daily. Yes nitroGLYcerin (NITROSTAT) 0.[address] 1 tablet under the tongue every 5 minutes as needed. Yes pantoprazole (PROTONIX) 40 mg tablet Take 1 tablet by mouth daily. Yes hydrochlorothiazide (HYDRODIURIL) 25 mg tablet Take 25 mg by mouth daily. Yes FIBER CHOICE ORAL Take 1 tablet by mouth daily. Yes aspirin 81 mg EC tablet Take 81 mg by mouth daily. Yes albuterol-ipratropium (COMBIVENT) 18-103 mcg/Actuation inhaler 2 Puff(s), Inh, Twice daily Yes prochlorperazine (COMPAZINE) 10 mg Tablet Take 1 tablet by mouth every 6 hours as needed for Nausea. Patient not taking: Reported on 02/17/2018 IMAGING / LABS: I have personally reviewed this patient's interval portal imaging to confirm accurate positioning and alignment which matches the patient's original approved treatment planning images. EXAM: BP 131/78 Pulse 78 Temp 36.6 ??C (97.9 ??F) Resp 18 Wt 73.6 kg (162 lb 3.2 oz) Comment: shoes on SpO2 98% BMI 26.07 kg/m2 Constitutional: he appears well-developed and well-nourished. [...] as anticipated. Plan: Continue treatment as planned. Will notify his investigator fraud regarding the need for NTG. documented in this encounter Plan of Treatment Upcoming Encounters Date Type Department Care Team (Late st Contact Info) Description 01/10/2024 7:45 AM EDT Appointment Hematology [place] [address] 01/21/2024 10:[address] [place] [address] Heber Phillips MD [facility] DR HEMATOLOGY/[place] [address] 03/28/2024 10:00 AM EDT Office Visit Hematology/Oncology at [address] [phone] Heber Phillips MD [facility] DR HEMATOLOGY/[place] [address] Isabella Baker APRN [facility] [place] [address] documented as of this encounter Visit Diagnoses Diagnosis Small cell lung cancer, right upper lobe documented in this encounter Care Teams Printer Machine Relationship Specialty Start Date End Date Nataliya Messina MD [address] [place] [address] [address] [place] [address] PCP - General 10/02/11 01/11/22 documented as of this encounter
--- OUTSIDE RECORDS SUMMARY | 2024-01-05 02:46 | XMS_ITS | Encounter Summary ---
[place] [address] Care Team Providers Care Corporate Compliance Director Name Role Phone Nataliya Messina MD Primary Care Provider [phone] Encounter Details Date Type Department Care Team (Latest Contact Info) Description 01/26/2018 6:45 AM EDT Laboratory Appointment Lab [address] [place] [phone] Small cell lung cancer Social History Tobacco [...] AM EDT Appointment Hematology [place] [phone] 01/21/2024 10:[address] [place] [address] Heber Phillips MD [facility] HEMATOLOGY/[place] [address] 03/28/2024 10:00 AM EDT Office Visit Hematology/Oncology at [address] [phone] Heber Phillips MD [facility] DR HEMATOLOGY/[place] [address] Isabella Baker APRN [facility] [place] [address] documented as of this encounter Procedures Procedure Name Priority Date/Time Associated Diagnosis Comments HEMOGRAM STAT 01/26/2018 6:53 AM EDT Small cell lung cancer DIFFERENTIAL, AUTOMATED STAT 01/26/2018 6:53 AM EDT Small cell lung cancer CBC (WITH DIFF) STAT 01/26/2018 6:53 AM EDT Small cell lung cancer COMPREHENSIVE METABOLIC PANEL (NON-FASTING) STAT 01/26/2018 6:53 AM EDT Small cell lung cancer documented in this encounter Results * (ABNORMAL) Differential, Automated (01/26/2018 6:53 AM EDT) Neutrophils % 75.0 % [facility] Neutr Abs (ANC) 7.54(H) 1.70 - 6.10 x10(3)/mc L [facility] Lymphocytes % 11.3 % [facility] Lymphocytes Abs 1.1 0.9 - 3.2 x10(3)/mc L [facility] Monocytes % 11.2 % [facility] Monocyte Abs 1.1(H) 0.3 - 0.9 x10(3)/mc L [facility] Eosinophils % 0.9 % [facility] Eosinophils Abs 0.1 0.0 - 0.4 x10(3)/mc L [facility] Basophils % 0.6 % [facility] Basophils Abs 0.1 0.0 - 0.1 x10(3)/mc L [facility] Immature Gran % 1.00 % [facility] Comment: Immature granulocytes(IG's)percentage and absolute count will include metamyelocytes, myelocytes, and promyelocytes. Blood smears from CBCs yielding IG's will be scanned manually for concordance. If this scan disagrees with the automated IG or if promyelocytes are noted, a manual differential will be performed. Suri Gran Abs 0.10(H) 0.00 - 0.04 x10(3)/ L [facility] Blood specimen (specimen) 01/26/2018 6:53 AM EDT 01/26/2018 6:57 AM EDT Narrative Resulting Agency Comment Spec In Lab Heber Phillips MD HEMATOLOGY ORDERABLE S [facility] [place] [address] * (ABNORMAL) Hemogram (01/26/2018 6:53 AM EDT) WBC 10.0(H) 4.0 - 9.5 x10(3)/[facility] RBC 4.54(L) 4.58 - 5.54 x10(6)/[facility] Hemoglobin 12.6(L) 13.7 - 16.5 gm/dL [facility] Hematocrit 39.1(L) 40.5 - 48.5 % [facility] MCV 86.1 82.9 - 93.1 fL [facility] MCH 27.8 27.5 - 32.1 pg [facility] MCHC 32.2 32.0 - 35.7 gm/dL [facility] Platelets 522(H) 145 - 357 x10(3)/[facility] RDWSD 44.5 36.0 - 45.0 fL [facility] RDWCV 14.1(H) 11.4 - 13.8 % [facility] MPV 8.6 7.6 - 12.9 fL [facility] nRBC % Auto 0.0 % [facility] nRBC Abs Auto 0.000 0.000 - 0.000 x10(3)/mcL [facility] Blood specimen (specimen) 01/26/2018 6:53 AM EDT 01/26/2018 6:57 AM EDT Narrative Resulting Agency Comment Spec In Lab Heber Phillips MD HEMATOLOGY ORDERABLE S [facility] [place] [address] * Comprehensive metabolic panel (non-fasting) (01/26/2018 6:53 AM EDT) Glucose Lvl 109 65 - 199 mg/dL [facility] Comment:Diabetes: >=200 mg/d L plus symptoms BUN 16 10 - 20 mg/dL [facility] Creatinine 0.98 0.80 - 1.50 mg/dL [facility] Sodium 137 135 - 145 mmol/L [facility] Potassium 4.4 3.5 - 5.0 mmol/L [facility] Comment: Please note: ??Patients with WBC >100,000 may have falsely elevated Potassium levels. ??For accurate Potassium quantification in these patients send serum separator tube (gold top) for subsequent determinations. ??Contact the Clinical Chemistry Laboratory if there are any questions. Chloride 98 98 - 107 mmol/L [facility] CO2 26 22 - 31 mmol/L [facility] Anion Gap 13 5 - 15 mmol/L [facility] Calcium 9.4 8.5 - 10.5 mg/dL [facility] Total Protein 7.2 6.1 - 8.0 gm/dL [facility] Albumin 3.9 3.2 - 5.2 gm/dL [facility] AST 15 0 - 39 unit/L [facility] ALT 15 0 - 55 unit/L [facility] Alk Phos 104 40 - 120 unit/L [facility] Total Bilirubin 0.3 0.2 - 1.3 mg/dL [facility] Estimated GFR 82 >=60 mL/min/1. 73 m?? [facility] Comment: The eGFR was calculated using the CKD-EPI equation. As with all creatinine based estimates of kidney function, eGFR values calculated with the CKD-EPI equation are not accurate in patients with acute kidney failure, extremes of body mass or the acutely ill. [email or web address]/[email or web address] eGFR 95 >=60 mL/min/1. 73 m?? [facility] Comment: The eGFR was calculated using the CKD-EPI equation. As with all creatinine based estimates of kidney function, eGFR values calculated with the CKD-EPI equation are not accurate in patients with acute kidney failure, extremes of body mass or the acutely ill. [email or web address]/[facility] Blood specimen (specimen) 01/26/2018 6:53 AM EDT 01/26/2018 6:57 AM EDT Narrative Resulting Agency Comment Spec In Lab Heber Phillips MD CHEMISTRY ORDERABLES [facility] [place] [address] documented in this encounter Visit Diagnoses Diagnosis Small cell lung cancer Malignant neoplasm of bronchus and lung, unspecified site documented in this encounter Care Teams Corporate Compliance Director Relationship Specialty Start Date End Date Nataliya Messina MD [address] [place] [address] PCP - General 10/02/11 01/11/22 documented as of this encounter
--- OUTSIDE RECORDS SUMMARY | 2024-01-05 02:46 | XMS_ITS | Encounter Summary ---
Author Organization [facility] [place] [address] Care Team Providers Care Anesthesia Resident Name Role Phone Nataliya Messina MD Primary Care Provider [phone] Encounter Details Date Type Department Care Team (Late Contact Info) Description 01/11/2018 Orders Only Hematology/Oncology at [address] [phone] Heber Phillips MD [facility] HEMATOLOGY/[place] [address] Social History Tobacco Use Types Packs/Day Years [...] AM EDT Appointment Hematology [place] [address] 01/21/2024 10:[address] [place] [phone] Heber Phillips MD [facility] HEMATOLOGY/[place] [address] 03/28/2024 10:00 AM EDT Office Visit Hematology/Oncology at [address] [phone] Heber Phillips MD [facility] DR HEMATOLOGY/[place] [address] Isabella Baker APRN [facility] [place] [address] documented as of this encounter Visit Diagnoses Not on filedocumented in this encounter Care Teams Anesthesia Resident Relationship Specialty Start Date End Date Nataliya Messina MD [address] [place] [address] PCP - General 10/02/11 01/11/22 documented as of this encounter
--- OUTSIDE RECORDS SUMMARY | 2024-01-05 02:46 | XMS_ITS | Encounter Summary ---
Author Organization [facility] [place] [address] Care Team Providers Care Research Phlebotomist Name Role Phone Nataliya Messina MD Primary Care Provider [phone] Encounter Details Date Type Department Care Team (Late st Contact Info) Description 03/03/2018 10:30 AM EDT Office Visit Radiation Oncology at [address] [phone] Mikhail Cadena MD [address] [place] [address] [place] [address] Small cell lung cancer, right [...] Sign Reading Time Taken Comments Blood Pressure 113/58 03/03/2018 10:00 AM EDT Pulse 73 03/03/2018 10:00 AM EDT Temperature 36.5 ??C (97.7 ??F) 03/03/2018 10:00 AM E DT Respiratory Rate 18 03/03/2018 10:00 AM EDT Oxygen Saturation 100% 03/03/2018 10:00 AM EDT Inhaled Oxygen Concentration - - Weight - - Height - - Body Mass Index - - documented in this encounter Progress Notes * Mikhail Cadena MD - 03/03/2018 10:30 AM EDT Images from the original note were not included. RADIATION ONCOLOGY - Weekly On Treatment Visit Note 03/03/18 Mikhail Cadena MD, MS Radiation Oncology [facility] [phone] (paging knitting machine operator automatic) Pager #[phone] PATIENT IDENTIFICATION Name Hieu iTllman Date of 1955 Diagnosis (Small cell lung cancer, right upper lobe Staging form: Lung, AJCC 8th Edition - Clinical: Stage IIIA (cT3, cN1, cM0) - Signed by Mikhail Cadena MD on 01/13/2018) CONCURRENT THERAPY: Carboplatin / Etoposide (from Dr. Phillips) INTENT OF THERAPY: Definitive (Curative) RADIATION TREATMENT DETAILS: Treatment Site RUL Prescribed Dose 60 Gy in 3 fractions Current Dose: 24 Gy in 12 fractions Conduit Cleaner Lantigua from Current Plan (minimum 60 Gy isodose volume shown): INTERVAL HISTORY Subjective: General - Overall feels well. Resp - No new cough or shortness of breath. Stable ESCAMILLA. No esophagitis symptoms. CV - No new chest pain since starting Imdur. Pain: Pain score today is 0/10. Nutrition: Weight at start of therapy was 169 lbs --> 162 lbs last week. Weight was not checked this week. Eating normal diet. MEDS Medications 03/03/18 1103 Medication Sig Taking? isosorbide mononitrate (IMDUR) 30 mg Tablet Sustained Release 24 hr Take 1 tablet by mouth daily. Yes citalopram (CELEXA) 20 mg Tablet Take [...] needed. Patient not taking: Reported on 03/03/2018 IMAGING / LABS: I have personally reviewed this patient's interval portal imaging to confirm accurate positioning and alignment which matches the patient's original approved treatment planning images. EXAM: BP 113/58 Pulse 73 Temp 36.5 ??C (97.7 ??F) Resp 18 SpO2 100% Constitutional: he appears well-developed and [...] AM EDT Appointment Hematology [place] [address] 01/21/2024 10:[address] [place] [address] Heber Phillips MD [facility] DR HEMATOLOGY/[place] [address] 03/28/2024 10:00 AM EDT Office Visit Hematology/Oncology at [address] [phone] Heber Phillips MD [facility] DR HEMATOLOGY/[place] [address] Isabella Baker APRN [facility] [place] [address] documented as of this encounter Visit Diagnoses Diagnosis Small cell lung cancer, right upper lobe documented in this encounter Care Teams Research Phlebotomist Relationship Specialty Start Date End Date Nataliya Messina MD [address] [place], [place] [address] PCP - General 10/02/11 01/11/22 documented as of this encounter
--- OUTSIDE RECORDS SUMMARY | 2024-01-05 02:46 | XMS_ITS | Encounter Summary ---
[place] [address] Care Team Providers Care Production Lead Name Role Phone Nataliya Messina MD Primary Care Provider Encounter Details Date Type Department Care Team (Late st Contact Info) Description 01/07/2018 Telephone [place] [address] Cady Petersen Social History Tobacco Use Types Packs/Day Years [...] encounter Miscellaneous Notes * Telephone Encounter - Cady Petersen LNA - 01/07/2018 8:37 AM EDT Sent VQ scan to [facility], they will call and schedule this with hieu, I will call hieu and let him know to expect the call. documented in this encounter Plan of Treatment Upcoming Encounters Date Type Department Care Team (Late st Contact Info) Description 01/10/2024 7:45 AM EDT Appointment Hematology [place] [phone] 01/21/2024 10:[address] [place] [address] Heber Phillips MD [facility] HEMATOLOGY/[place] [address] 03/28/2024 10:00 AM EDT Office Visit Hematology/Oncology at [address] [phone] Heber Phillips MD [facility] HEMATOLOGY/[place] [address] Isabella Baker APRN [facility] [place] [address] documented as of this encounter Visit Diagnoses Not on filedocumented in this encounter Care Teams Production Lead Relationship Specialty Start Date End Date Nataliya Messina MD [address] [place] [address] PCP - General 10/02/11 01/11/22 documented as of this encounter
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
--- OUTSIDE RECORDS SUMMARY | 2024-01-05 02:47 | XMS_ITS | Encounter Summary ---
Author Organization [facility] Address [facility] [place] [address] Care Team Providers Care Mortgage Processing Clerk Name Role Phone Nataliya Messina MD Primary Care Provider [phone] Encounter Details Date Type Department Care Team (Latest Contact Info) Description 12/10/2017 - 12/10/2017 11:59 PM EDT Hospital Encounter [place] [address] Kingsley Ortiz MD [facility] [place] [address] Discharge Disposition: Home Social History Tobacco Use Types Packs/Day Years Used Date Smoking Tobacco: Former Cigarettes Q uit: 09/11/2013 Smokeless Tobacco: Never Alcohol Use Standard [...] 325 mg Tablet Take by mouth. 11/03/2017 tiotropium (Spiriva with HandiHaler) 18 mcg Capsule, [...] mg Tablet Take by mouth. 11/02/2016 10/13/2022 hydrALAZINE (APRESOLINE) 25 mg Tablet Take 1 [...] AM EDT Appointment Hematology [place] [address] 01/21/2024 10:[address] [place] [phone] Heber Phillips MD [facility] HEMATOLOGY/[place] [address] 03/28/2024 10:00 AM EDT Office Visit Hematology/Oncology at [address] [phone] Heber Phillips MD [facility] DR HEMATOLOGY/[place] [address] Isabella Baker APRN [facility] [place] [address] documented as of this encounter Procedures Procedure Name Priority Date/Time Associated Diagnosis Comments FILM LIBRARY STORAGE ONLY DX CHEST Routine 12/10/2017 12:00 AM EDT documented in this encounter Results * Film Library- Storage Only DX Chest (12/10/2017 12:00 AM EDT) Narrative RAD - 12/17/2017 12:12 PM EDT This exam is for storage only and is auto-finalizing. Kingsley Ortiz MD IMG FILM LIBRARY ORD ERABLES [place], [place] documented in this encounter Visit Diagnoses Not on filedocumented in this encounter Care Teams Mortgage Processing Clerk Relationship Specialty Start Date End Date Nataliya Messina MD [address] [place] [address] PCP - General 10/02/11 01/11/22 documented as of this encounter
--- OUTSIDE RECORDS SUMMARY | 2024-01-05 02:47 | XMS_ITS | Encounter Summary ---
Author Organization [facility] Address [facility] [place] [address] Care Team Providers Care Sandblasting Supervisor Name Role Phone Nataliya Messina MD Primary Care Provider [phone] Encounter Details Date Type Department Care Team (Late st Contact Info) Description 01/03/2018 10:21 AM EDT - 01/03/2018 2:52 PM EDT Hospital Encounter Non-Invasive Cardiology Lab [facility] [place] [address] Genet Thomas [place] [address] Pre-operative cardiovascular examination, high risk surgery Discharge Disposition: Home Social History Tobacco Use [...] AM EDT Appointment Hematology [place] [phone] 01/21/2024 10:[address] [place] [address] Heber Phillips MD [facility] DR HEMATOLOGY/[place] [address] 03/28/2024 10:00 AM EDT Office Visit Hematology/Oncology at [address] [phone] Heber Phillips MD [facility] HEMATOLOGY/[place] [address] Isabella Baker APRN [facility] [place] [address] documented as of this encounter Procedures Procedure Name Priority Date/Time Associated Diagnosis Comments NUCLEAR EXERCISE STRESS CARDIOLOGY Routine 01/03/2018 1:12 PM EDT Pre-operative cardiovascular examination, high risk surgery documented in this encounter Results * Nuclear Exercise Stress Cardiology (01/03/2018 1:12 PM EDT) Anatomical Region Laterality Modality Other Genet Rivero APRN CARDIAC SERVICE S ORDERABLES documented in this encounter Visit Diagnoses Diagnosis Pre-operative cardiovascular examination, high risk surgery Pre-operative cardiovascular examination documented in this encounter Care Teams Sandblasting Supervisor Relationship Specialty Start Date End Date Nataliya Messina MD [address] [place] [address] PCP - General 10/02/11 01/11/22 documented as of this encounter
--- OUTSIDE RECORDS SUMMARY | 2024-01-05 02:47 | XMS_ITS | Encounter Summary ---
[place] [address] Care Team Providers Care Immigration Coordinator Name Role Phone Nataliya Messina MD Primary Care Provider [phone] Reason for Referral * Diagnostic Test (Routine) - Specialty Diagnoses / Procedures Referred By Contac t Referred To Contact Radiology Diagnoses Pre-operative cardiovascular examination, high risk surgery Procedures NM Exercise Stress CT Component Genet Thomas V DURAL [employer]CH[employer] [facility] [address] [place] [address] Referral ID Status Reason Start Date Expiration Date Visits Requested Visits Authorized [id number] Specialty Service Requested 12/28/2017 12/28/2018 1 1 Reason for Visit * Diagnostic Test (Routine) - Closed Specialty Diagnoses / Procedures Referred By Contac t Referred To Contact Radiology Diagnoses Pre-operative cardiovascular examination, high risk surgery Procedures NM Exercise Stress Myocardial Perfusion Genet Thomas V [facility] [place] [address] [place] [address] Referral ID Status Reason Start Date Expiration Date V isits Requested Visits Authorized [id number] Closed Specialty Service Requested 12/28/2017 12/28/2018 4 4 Encounter Details Date Type Department Care Team (Late st Contact Info) Description 01/03/2018 9:52 AM EDT - 01/03/2018 10:20 AM EDT Hospital Encounter Nuclear Medicine at [facility] [place] [address] Genet Thomas V [facility] [place] [address] Pre-operative cardiovascular examination, high risk surgery Discharge [...] AM EDT Appointment Hematology [place] [address] 01/21/2024 10:[address] [place] [address] Heber Phillips MD [facility] HEMATOLOGY/[place] [address] 03/28/2024 10:00 AM EDT Office Visit Hematology/Oncology at [address] [phone] Heber Phillips MD [facility] HEMATOLOGY/[place] [address] Isabella Baker APRN [facility] [place] [address] documented as of this encounter Procedures Procedure Name Priority Date/Time Associated Diagnosis Comments NM EXERCISE STRESS CT COMPONENT Routine 01/03/2018 1:40 PM EDT Pre-operative cardiovascular examination, high risk surgery documented in this encounter Results * NM Exercise Stress CT Component (01/03/2018 1:40 PM EDT) Anatomical Region Laterality Modality Nuclear Medicine Narrative 01/03/2018 3:07 PM EDT EXAMINATION: NM EXERCISE STRESS CT COMPONENT CLINICAL HISTORY: Study performed for attenuation correction of the myocardial perfusion scan. TECHNIQUE: A limited field of view, non-contrast, non-breath hold, low dose CT scan of the region surrounding the myocardium was performed for the purpose of attenuation correction of the myocardial perfusion scan. COMPARISON: CT chest: 12/15/2017 and PET/CT 12/31/[address] FINDINGS: 1. Aortic and coronary calcifications. 2. Partially visualized known lung mass in the right upper lobe. Please note the Nuclear Medicine portion of this exam is reported separately. Preliminary report signed by: Cherelle Villafana at 01/03/2018 2:45 PM I have personally reviewed the image(s) and the residents interpretation and agree with the findings, Tino Gallardo at 01/03/2018 3:07 PM Procedure Note Tino Gallardo MD - 01/03/2018 EXAMINATION: NM EXERCISE STRESS CT COMPONENT CLINICAL HISTORY: Study performed for attenuation correction of the myocardial perfusionscan. TECHNIQUE: A limited field of view, non-contrast, non-breath hold, lowdose CT scan of the region surrounding the myocardium was performed for thepurpose of attenuation correction of the myocardial perfusion scan. COMPARISON: CT chest: 12/15/2017 and PET/CT 12/31/[address] FINDINGS: 1. Aortic and coronary calcifications. 2. Partially visualized known lung mass in the right upper lobe. Please note the Nuclear Medicine portion of this exam is reportedseparately. Preliminary report signed by: Cherelle Villafana at 01/03/2018 2:45 PM I have personally reviewed the image(s) and the residents interpretationand agree with the findings, Tino Gallardo at 01/03/2018 3:07 PM Genet Thomas V, DURAL MECHANIC IMG NM ORDERABL ES documented in this encounter Visit Diagnoses Diagnosis Pre-operative cardiovascular examination, high risk surgery Pre-operative cardiovascular examination documented in this encounter Care Teams Immigration Coordinator Relationship Specialty Start Date End Date Nataliya Messina MD [address] [place] [address] PCP - General 10/02/11 01/11/22 documented as of this encounter
--- OUTSIDE RECORDS SUMMARY | 2024-01-05 02:47 | XMS_ITS | Encounter Summary ---
Author Organization [facility] [place] [address] Care Team Providers Care Chemical Test Engineer Name Role Phone Nataliya Messina MD Primary Care Provider [phone] Encounter Details Date Type Department Care Team (Latest Contact Info) Description 12/28/2017 3:30 PM EDT - 12/28/2017 11:59 PM EDT Hospital [place] [address] Mass of right lung Discharge Disposition: Home [...] as of this encounter Procedure Notes * Lowell Nicholson MD - 12/28/2017 11:59 PM EDTAssociated Order(s): EKG 12-LEAD (No note.) * Lowell Nicholson MD - 12/28/2017 11:59 PM EDTAssociated Order(s): PULMONARY FUNCTION TEST A. SPIROMETRY Reveals (Pre Bronchodilator based on FEV1 %predicted) a sever (49-35%) obstructive ventilatory dysfunction (OVD). B. DIFFUSING CAPACITY: The adjusted diffusing capacity(DLCO) for hemoglobin is moderately reduced(40-60%) Causes of reduced DLCO include loss of effective surface area for gas exchange, decreased pulmonarycapillary blood volume, anemia or carboxyhemoglobinemia. C. PULSE OXIMETRY: Resting oxyhemoglobin saturation is normal. Resting oximetry was assessed while the patient was breathing room air. D . FINAL IMPRESSION: The reduced DLCO in conjunction with OVD suggest the presence of emphysema. Normal resting pulse oximetry documented in this encounter Miscellaneous Notes * Addendum Note - Lowell Nicholson MD - 12/28/2017 11:59 PM EDTEncounter addended by: Lowell Nicholson MD on: 01/03/2018 11:23 AM
Actions taken: Sign clinical note, Charge Capture section accepted documented in this encounter Plan of Treatment Upcoming Encounters Date Type Department Care Team (Late st Contact Info) Description 01/10/2024 7:45 AM EDT Appointment [place] [address] 01/21/2024 10:[address] [place] [place] [address] Heber Phillips MD [facility] HEMATOLOGY/[place] [address] 03/28/2024 10:00 AM EDT Office Visit Hematology/Oncology at [address] [phone] Heber Phillips MD [facility] HEMATOLOGY/[place] [address] Isabella Baker APRN [facility] [place] [address] documented as of this encounter Procedures Procedure Name Priority Date/Time Associated Diagnosis Comments COMMON PULMONARY FUNCTION TEST Routine 01/03/2018 11:22 AM EDT Mass of right lung EKG 12-LEAD Routine 12/28/2017 4:53 PM EDT Mass of right lung documented in this encounter Results * Pulmonary Function Testing (01/03/2018 11:22 AM EDT) Narrative Lowell Nicholson MD - 01/03/2018 11:22 AM EDT Lowell Nicholson MD ? 01/03/2018 11:22 AM A. SPIROMETRY Reveals (Pre Bronchodilator based on FEV1 %predicted) a sever (49-35%) obstructive ventilatory dysfunction (OVD). B. DIFFUSING CAPACITY: The adjusted diffusing capacity(DLCO) for hemoglobin is moderately reduced(40-60%) Causes of reduced DLCO include loss of effective surface area for gas exchange, decreased pulmonary capillary blood volume, anemia or carboxyhemoglobinemia. C. PULSE OXIMETRY: Resting oxyhemoglobin saturation is normal. Resting oximetry was assessed while the patient was breathing room air. D . FINAL IMPRESSION: The reduced DLCO in conjunction with OVD suggest the presence of emphysema. Normal resting pulse oximetry Kingsley Ortiz MD PFT ORDERABLES documented in this encounter Visit Diagnoses Diagnosis Mass of right lung documented in this encounter Care Teams Chemical Test Engineer Relationship Specialty Start Date End Date Nataliya Messina MD [address] [place] [address] PCP - General 10/02/11 01/11/22 documented as of this encounter
--- OUTSIDE RECORDS SUMMARY | 2024-01-05 02:47 | XMS_ITS | Encounter Summary ---
Author Organization [facility] [place] [address] Care Team Providers Care Ornamental Iron Worker Apprentice Name Role Phone Nataliya Messina MD Primary Care Provider [phone] Reason for Referral * Diagnostic Test (Routine) - Closed Specialty Diagnoses / Procedures Referred By Contac t Referred To Contact Radiology Diagnoses Mass of right lung Procedures PET CT Carter Standard Plus Head and Neck PET CT Standard Skull Base to Mid-Thigh Kingsley Otriz MD [facility] [place] [address] [place] [address] Referral ID Status Reason Start Date Expiration Date V isits Requested Visits Authorized [id number] Closed Specialty Service Requested 12/28/2017 12/28/2018 1 1 Reason for Visit * Diagnostic Test (Routine) - Closed Specialty Diagnoses / Procedures Referred By Contac t Referred To Contact Radiology Diagnoses Mass of right lung Procedures PET CT Carter Standard Plus Head and Neck PET CT Standard Skull Base to Mid-Thigh Kingsley Ortiz MD [facility] [place] [address] [place] [address] Referral ID Status Reason Start Date Expiration Date V isits Requested Visits Authorized [id number] Closed Specialty Service Requested 12/28/2017 12/28/2018 1 1 Encounter Details Date Type Department Care Team (Latest Contact Info) Description 12/31/2017 12:16 PM EDT - 12/31/2017 11:59 PM EDT Hospital Encounter Nuclear Medicine at [facility] [place] [address] Kingsley Ortiz MD [facility] [place] [address] Mass of right lung Discharge Disposition: Home [...] AM EDT Appointment [place] [address] 01/21/2024 10:[address] [place] [place] [address] Heber Phillips MD [facility] HEMATOLOGY/[place] [address] 03/28/2024 10:00 AM EDT Office Visit Hematology/Oncology at [address] [address] Heber Phillips MD [facility] HEMATOLOGY/[place] [address] Isabella Baker APRN [facility] [place] [address] documented as of this encounter Procedures Procedure Name Priority Date/Time Associated Diagnosis Comments NM CARTER PET CT STANDARD PLUS HEAD AND NECK Routine 12/31/2017 1:11 PM EDT Mass of right lung documented in this encounter Results * PET CT Carter Standard Plus Head and Neck (12/31/2017 1:11 PM EDT) Anatomical Region Laterality Modality Positron Emissio n Tomography (PET) Impressions 12/31/2017 3:59 PM EDT 1. ??FDG avid right upper lobe mass, most consistent with primary lung malignancy. 2. ??Adjacent FDG avid 6 mm pulmonary nodule suspicious for a satellite malignancy. 3. ??No regional renato or distant sites of metastasis. I have personally reviewed the image(s) and the residents interpretation and agree with the findings, Vamsi Perez at 12/31/2017 3:59 PM Narrative 12/31/2017 3:59 PM EDT EXAMINATION: PET CT CARTER STANDARD PLUS HEAD AND NECK CLINICAL HISTORY: RUL mass eval for metastatic disease TECHNIQUE: Following IV injection of 63-oqjjjc-9-deoxyglucose (FDG) a standard uptake of approximately 60 minutes, a noncontrast CT scan followed by a PET scan were acquired from the base of the skull to mid thighs. The noncontrast CT was used for anatomic localization and photon attenuation correction of the PET scan. Blood glucose level: 100 (mg/dL) FDG dose: 13.5 mCi Mean SUV of the liver: 2 COMPARISON: CT chest 12/15/2017. FINDINGS: HEAD/NECK: Normal activity in all soft tissue regions of the neck and visualized lower head. No CT visualized abnormalities. CHEST: There is a 5.0 x 5.7 cm FDG avid mass in the right upper lobe (SUV max 17). There is an additional mildly FDG avid 6 mm nodule in the right upper lobe (axial image 87). No lymphadenopathy. CT visualized mild centrilobular emphysematous changes bilaterally, predominantly in the lung apices. Coronary artery calcifications. ABDOMEN/PELVIS: Mildly FDG avid inflammation around the umbilicus. Normal activity in all other soft tissue regions. Hepatic dome simple liver cyst. Ectasia of the intra-abdominal aorta, measuring 3.1 cm in maximal diameter. Right common iliac artery stent is visualized. Scattered aortic calcifications. ??Diverticulosis without evidence of diverticulitis. SKELETON/EXTREMITIES: Normal activity in all regions of the axial and visualized appendicular skeleton. No suspicious lytic or sclerotic osseous lesions. Procedure Note Vamsi Perez MD - 12/31/2017 EXAMINATION: PET CT [place] STANDARD PLUS HEAD AND NECK CLINICAL HISTORY: RUL mass eval for metastatic disease TECHNIQUE: Following IV injection of 71-azaqoj-1-deoxyglucose (FDG) astandard uptake of approximately 60 minutes, a noncontrast CT scan followed by aPET scan were acquired from the base of the skull to mid thighs. The noncontrast CTwas used for anatomic localization and photon attenuation correction of thePET scan. Blood glucose level: 100 (mg/dL) FDG dose: 13.5 mCi Mean SUV of the liver: 2 COMPARISON: CT chest 12/15/2017. FINDINGS: HEAD/NECK: Normal activity in all soft tissue regions of the neck and visualizedlower head. No CT visualized abnormalities. CHEST: There is a 5.0 x 5.7 cm FDG avid mass in the right upper lobe (SUV max17). There is an additional mildly FDG avid 6 mm nodule in the right upperlobe (axial image 87). No lymphadenopathy. CT visualized mild centrilobular emphysematous changes bilaterally, predominantly in the lung apices.Coronary artery calcifications. ABDOMEN/PELVIS: Mildly FDG avid inflammation around the umbilicus. Normal activity in allother soft tissue regions. Hepatic dome simple liver cyst. Ectasia of the intra-abdominal aorta, measuring 3.1 cm in maximal diameter. Right commoniliac artery stent is visualized. Scattered aortic calcifications.Diverticulosis without evidence of diverticulitis. SKELETON/EXTREMITIES: Normal activity in all regions of the axial and visualized appendicular skeleton. No suspicious lytic or sclerotic osseous lesions. IMPRESSION 1. FDG avid right upper lobe mass, most consistent with primary lung malignancy. 2. Adjacent FDG avid 6 mm pulmonary nodule suspicious for a satellite malignancy. 3. No regional renato or distant sites of metastasis. I have personally reviewed the image(s) and the residents interpretationand agree with the findings, Vamsi Perez at 12/31/2017 3:59 PM Kingsley Ortiz MD IMG PET ORDERABLES documented in this encounter Visit Diagnoses Diagnosis Mass of right lung documented in this encounter Administered Medications Inactive Administered Medications - up to 3 most recent administrations Medication Order MAR Action Action Date Dose Rate Site fludeoxyglucose (F-18) FDG injection 13.5 mCi 13.5 mCi, Intravenous, ONCE PRN, 1 dose, Starting on Wed12/31/17 at 1102, Until Wed12/31/17 at 1102, Per Protocol, Routine Given 12/31/2017 11:02 AM EDT 13.5 mCi documented in this encounter Care Teams Ornamental Iron Worker Apprentice Relationship Specialty Start Date End Date Nataliya Messina MD [address] [place] [address] [address] [facility] [address] [place] [address] PCP - General 10/02/11 01/11/22 documented as of this encounter
--- OUTSIDE RECORDS SUMMARY | 2024-01-05 02:47 | XMS_ITS | Encounter Summary ---
Author Organization [facility] [place] [address] Care Team Providers Care Property Claim Rep Name Role Phone Nataliya Messina MD Primary Care Provider [phone] Reason for Visit * Reason Comments Retinal Vein Occlusion Retinal Artery Oc clusion right eye Encounter Details Date Type Department Care Team (Late st Contact Info) Description 01/26/2017 11:00 AM EDT Office [place] [address] Gucci Rosas MD [facility] [place] [address] Central retinal artery occlusion of right eye (Primary Dx) Social History Tobacco Use Types [...] as of this encounter Progress Notes * Gucci Rosas MD - 01/26/2017 11:00 AM EDT ASSESSMENT: 1. Central retinal artery occlusion of right eye Referred by Dr. Marquis for CRAO OD Now s/p carotid endarterectomy right side 10/20/16 Per cerebrovascular duplex note from 10/19/16: Right: There is bulky irregular mixed echogenic plaque in the proximal internal carotid artery causing 60-99% stenosis when compared to the more distal internal carotid artery Left: There is bulky irregular plaque in the proximal internal carotid artery causing 16-49% stenosis when compared to the more distal internal carotid artery. Exam/Findings Today 01/26/17: OD: Poor vision due to previous CRAO, no neovascularization noted OS: PCIOL, excellent vision, normal retina PLAN: Observe OU Follow up later this year with Dr. Peñaloza for updated MRx Follow up retina [facility] 9-12 months for DFE OU. If stable at that time, retina PRN. Sooner PRN The Ophthalmology scribe for this encounter is BREN Gilmore. I performed and personally participated in the huitron and critical portions of the service. I have reviewed/updated the documentation, and confirm that all of the information is accurate as described. Gucci Rosas MD documented in this encounter Plan of Treatment Upcoming Encounters Date Type Department Care Team (Late st Contact Info) Description 01/10/2024 7:45 AM EDT Appointment Hematology [place] [address] 01/21/2024 10:[address] [place] [address] Heber Phillips MD [facility] HEMATOLOGY/[place] [address] 03/28/2024 10:00 AM EDT Office Visit Hematology/Oncology at [address] [address] Heber Phillips MD [facility] DR HEMATOLOGY/[place] [address] Isabella Baker APRN [facility] [place] [address] documented as of this encounter Procedures Procedure Name Priority Date/Time Associated Diagnosis Comments OCT RETINA - OU - BOTH EYES Routine 01/26/2017 1:00 PM EDT Central retinal artery occlusion of right eye FLUORESCEIN ANGIOGRAPHY - OU - BOTH EYES Routine 01/26/2017 1:00 PM EDT Central retinal artery occlusion of right eye documented in this encounter Results * OCT Cdsgto-SK-HXEH EYES (01/26/2017 1:00 PM EDT) Anatomical Region Laterality Modality Other Narrative 01/26/2017 1:00 PM EDT Right Eye Quality was good. Scan locations included subfoveal. Left Eye Quality was good. Scan locations included subfoveal. Findings include normal observations, normal foveal contour. Notes OD: Thinning Gucci Rosas MD OPHTHALMOLOGY SERVIC [employer] ORDERABLES * FLUORESCEIN ANGIOGRAPHY - OU- BOTH EYES (01/26/2017 1:00 PM EDT) Anatomical Region Laterality Modality Other Narrative 01/26/2017 1:00 PM EDT Right Eye Early phase findings include delayed filling. Mid/Late phase findings include delayed filling. Choroidal neovascularization is not present. Left Eye Early phase findings include normal observations. Mid/Late phase findings include normal observations. Choroidal neovascularization is not present. Gucci Rosas MD OPHTHALMOLOGY SERVIC ES ORDERABLES documented in this encounter Visit Diagnoses Diagnosis Central retinal artery occlusion of right eye- Primary Central artery occlusion of retina documented in this encounter Care Teams Property Claim Rep Relationship Specialty Start Date End Date Nataliya Messina MD [address] [place] [address] PCP - General 10/02/11 01/11/22 documented as of this encounter
--- OUTSIDE RECORDS SUMMARY | 2024-01-05 02:47 | XMS_ITS | Encounter Summary ---
Author Organization [facility] Address [facility] [place] [address] Care Team Providers Care Web Editor Name Role Phone Nataliya Messina MD Primary Care Provider [phone] Encounter Details Date Type Department Care Team (Latest Contact Info) Description 12/15/2017 - 12/15/2017 11:59 PM EDT Hospital Encounter [place] [address] Kingsley Ortiz MD [facility] [place] [address] Discharge Disposition: Home Social History Tobacco Use [...] AM EDT Appointment Hematology [place] [address] 01/21/2024 10:[address] [place] [place] [address] Heber Phillips MD [facility] HEMATOLOGY/[place] [address] 03/28/2024 10:00 AM EDT Office Visit Hematology/Oncology at [address] [address] Heber Phillips MD [facility] DR HEMATOLOGY/[place] [address] Isabella Baker APRN [facility] [place] [address] documented as of this encounter Procedures Procedure Name Priority Date/Time Associated Diagnosis Comments FILM LIBRARY STORAGE ONLY CT CHEST Routine 12/15/2017 12:00 AM EDT documented in this encounter Results * Film Library- Storage Only CT Chest (12/15/2017 12:00 AM EDT) Narrative RAD - 12/17/2017 12:12 PM EDT This exam is for storage only and is auto-finalizing. Kingsley Ortiz MD IMG FILM LIBRARY ORD ERABLES [place] documented in this encounter Visit Diagnoses Not on filedocumented in this encounter Care Teams Web Editor Relationship Specialty Start Date End Date Nataliya Messina MD [address] [place] [address] PCP - General 10/02/11 01/11/22 documented as of this encounter
--- OUTSIDE RECORDS SUMMARY | 2024-01-05 02:47 | XMS_ITS | Encounter Summary ---
Author Organization [facility] [place] [address] Care Team Providers Care Licensed Optician Name Role Phone Nataliya Messina MD Primary Care Provider [phone] Encounter Details Date Type Department Care Team (Late st Contact Info) Description 12/28/2017 Notes Only [place] [phone] Angela Mercer Social History Tobacco Use Types Packs/Day Years [...] as of this encounter Progress Notes * Angela Mercer - 12/28/2017 3:27 PM EDT Documentation of Informed Consent to Participate in Clinical Trial [id number]: a feasibility study of unsupervised, pre-operative exercise program (uPEP) for patients scheduled for lung cancer surgery Hieu Tillman was seen in the Thoracic Surgery clinic on 12/28/2017. Hieu was offered the opportunity to participate in study [id number]: a feasibility study of unsupervised, pre-operative exercise program (uPEP) for patients scheduled for lung cancer surgery. The study protocol was reviewed with the patient, including a description of the study purpose, potential risks and benefits, the voluntary nature of participation, as well as the requirements of participation.Education regarding the fitness device used in this study was provided. Discussed confidentiality of patient's private health information as specified in the consent form.Patient informed that he may discontinue study involvement at any time; informed him that decliningto participate or discontinuing study treatment will not compromise his access to treatment optionsor care at this institution. Hieu was given written informed consent form to read and review. He was given adequate time to review all information, and to ask questions and review concerns, all of which were answered to his satisfaction. Patient verbalized understanding of this protocol and consented to participate in [id number]: a feasibility study of unsupervised, pre-operative exercise program (uPEP) for patients scheduled for lung cancer surgery. Consent form was signed and dated by patient and myself. Written informed consent was obtained prior to any study procedures being conducted. A copy of the signed consent form was given to the patient. documented in this encounter Plan of Treatment Upcoming Encounters Date Type Department Care Team (Late st Contact Info) Description 01/10/2024 7:45 AM EDT Appointment Hematology [place] [address] 01/21/2024 10:[address] [place] [address] Heber Phillips MD [facility] DR HEMATOLOGY/[place] [address] 03/28/2024 10:00 AM EDT Office Visit Hematology/Oncology at [address] [address] Heber Phillips MD [facility] DR HEMATOLOGY/[place] [address] Isabella Baker APRN [facility] DR [place]ICAL [place] [address] documented as of this encounter Visit Diagnoses Not on filedocumented in this encounter Care Teams Licensed Optician Relationship Specialty Start Date End Date Nataliya Messina MD [address] [place] [address] PCP - General 10/02/11 01/11/22 documented as of this encounter
--- OUTSIDE RECORDS SUMMARY | 2024-01-05 02:47 | XMS_ITS | Encounter Summary ---
[place] [address] Care Team Providers Care Family Service Caseworker Name Role Phone Nataliya Messina MD Primary Care Provider [phone] Encounter Details Date Type Department Care Team (Late st Contact Info) Description 12/29/2017 Telephone [place] [address] Cady Petersen Social History Tobacco Use Types [...] Telephone Encounter - Cady Petersen LNA - 12/29/2017 11:02 AM EDT Called and left hieu gonzalez . Need to let him know to meet maya at the office receptionist desk on 01/03 around 1:00 to talk about study. Also need to ask him his safety questions, he needs a PET and MRI, he wanted them done but [facility] only can do the MRI. Going to see if he will just come [place] [facility] and do them[place]. documented in this encounter Plan of Treatment Upcoming Encounters Date Type Department Care Team (Late st Contact Info) Description 01/10/2024 7:45 AM EDT Appointment [place] [address] 01/21/2024 10:[address] [place] [place] [address] Heber Phillips MD [facility] DR HEMATOLOGY/[place] [address] 03/28/2024 10:00 AM EDT Office Visit Hematology/Oncology at [address] [phone] Heber Phillips MD [facility] HEMATOLOGY/[place] [address] Isabella Baker APRN [facility] DR [place] [address] documented as of this encounter Visit Diagnoses Not on filedocumented in this encounter Care Teams Family Service Caseworker Relationship Specialty Start Date End Date Nataliya Messina MD [address] [place] [address] PCP - General 10/02/11 01/11/22 documented as of this encounter
--- OUTSIDE RECORDS SUMMARY | 2024-01-05 02:47 | XMS_ITS | Encounter Summary ---
[place] [address] Care Team Providers Care Town Planner Name Role Phone Nataliya Messina MD Primary Care Provider [phone] Encounter Details Date Type Department Care Team (Late st Contact Info) Description 12/28/2017 Notes [place] [phone] Aga Petersen, RN Social History Tobacco Use Types Packs/Day [...] as of this encounter Progress Notes * Aga Petersen RN - 12/28/2017 3:[address] Ortiz :Instructed in need to hold plavix starting today 12/28/17 in preparation for procedure. Also instructed in need to hold metoprolol and no caffeine 24 hours prior to stress test . documented in this encounter Plan of Treatment Upcoming Encounters Date Type Department Care Team (Late st Contact Info) Description 01/10/2024 7:45 AM EDT Appointment Hematology [place] [address] 01/21/2024 10:[address] [place] [address] Heber Phillips MD [facility] HEMATOLOGY/[place] [address] 03/28/2024 10:00 AM EDT Office Visit Hematology/Oncology at [address] [address] Heber Phillips MD [facility] HEMATOLOGY/[place] [address] Isabella Baker APRN [facility] [place] [address] documented as of this encounter Visit Diagnoses Not on filedocumented in this encounter Care Teams Town Planner Relationship Specialty Start Date End Date Nataliya Messina MD [address] [place] [address] PCP - General 10/02/11 01/11/22 documented as of this encounter
--- OUTSIDE RECORDS SUMMARY | 2024-01-05 02:47 | XMS_ITS | Encounter Summary ---
Author Organization [facility] Address [facility] [place] [address] Care Team Providers Care Forestry Worker Name Role Phone Nataliya Messina MD Primary Care Provider [phone] Encounter Details Date Type Department Care Team (Late Contact Info) Description 12/29/2017 Telephone [place] [address] Cady Petersen Social History Tobacco Use Types [...] AM EDT Appointment Hematology [place] [address] 01/21/2024 10:[address] [place] [phone] Heber Phillips MD [facility] HEMATOLOGY/[place] [address] 03/28/2024 10:00 AM EDT Office Visit Hematology/Oncology at [address] [address] Heber Phillips MD [facility] DR HEMATOLOGY/[place] [address] Isabella Baker APRN [facility] [place] [address] documented as of this encounter Visit Diagnoses Not on filedocumented in this encounter Care Teams Forestry Worker Relationship Specialty Start Date End Date Nataliya Messina MD [address] [place], [place] [address] PCP - General 10/02/11 01/11/22 documented as of this encounter
--- OUTSIDE RECORDS SUMMARY | 2024-01-05 02:47 | XMS_ITS | Encounter Summary ---
Author Organization [facility] Address [facility] [place] [address] Care Team Providers Care Flight Service Specialist Name Role Phone Nataliya Messina MD Primary Care Provider [phone] Reason for Visit * Reason Comments Follow-up Encounter Details Date Type Department Care Team (Late st Contact Info) Description 11/17/2016 11:15 AM EDT Office Visit [place] [address] Omero Wills MD [facility] [place] [address] Central artery occlusion of retina, right; S/P carotid endarterectomy; PVD (peripheral vascular disease) Social History Tobacco [...] Sign Reading Time Taken Comments Blood Pressure 98/61 11/17/2016 11:30 AM EDT Pulse 84 11/17/2016 11:30 AM EDT Temperature - - Respiratory Rate - - Oxygen Saturation - - Inhaled Oxygen Concentration - - Weight 77.1 kg (170 lb) 11/17/2016 11:29 AM EDT Height 167.6 cm (5' 6) 11/17/2016 11:29 AM EDT Body Mass Index 27.44 11/17/2016 11:29 AM EDT documented in this encounter Progress Notes * Omero Wills MD - 11/17/2016 11:15 AM EDT Reason for Visit: First post-discharge visit following right carotid endarterectomy performed for symptomatic, critical stenosis on 10/20/16: Interval History: Hieu Tillman is a 61-year-old patient on whom we were consulted by Neurology for an acute right retinal artery occlusion. Work-up revealed a critical right internal carotid artery stenosis. I performed a RIGHT CEA with Dr. Lopez on 10/20/16. During surgery, we identified hemorrhage into his HUMERA plaque. The patient did well post-op. In clinic today, his only complaint is numbness surrounding the surgical incision and extending medially under his chin. No TIA or stroke symptoms. Minimal improvement in his right eye vision, as would be expected given his retinal artery occlusion. Past Vascular History: 2011: Right iliac stent placed by Dr. Patrick for severe claudication and early rest pain. Current mild bilateral calf claudication which is stable. 2013: CAD with coronary stent x 3 vessels. He is stable from a cardiac standpoint. Still on Plavix,apparently for his coronary stent. [facility]: He stopped smoking 3 years ago after having undergone Exam: Alert male, NAD, 98/61 right arm, 110/60 left arm. Right CEA incision fully healed. No erythema. No drainage. No tenderness. Tongue midline. Motor and sensory exams of extremities fully intact. Right carotid duplex today: Widely patent. Looks terrific. Left carotid duplex most recent on 10/19/16: 16-49% internal carotid stenosis, unchanged from multiple prior studies. Impression: Smooth recovery with no new issues. I reassured him that sharlene- incisional skin numbness is not medically dangerous and typically resolves over several months. Overall, he is otherwise stable with well-controlled risk factors from a vascular perspective. Plan: OK for full routine activity. Continue statin. Continue antiplatelet, although Dr. Messina may discuss need for Plavix with Cardiology. We will see him for follow-up in 8 months with a bilat carotid duplex and ABIs. I warned patient to call immediately for any new vascular symptoms. Omero Wills M.D. Section of Vascular Surgery documented in this encounter Plan of Treatment Upcoming Encounters Date Type Department Care Team (Late st Contact Info) Description 01/10/2024 7:45 AM EDT Appointment Hematology [place] [address] 01/21/2024 10:[address] [place] [address] Heber Phillips MD [facility] DR HEMATOLOGY/[place] [address] 03/28/2024 10:00 AM EDT Office Visit Hematology/Oncology at [address] [address] Heber Phillips MD [facility] DR HEMATOLOGY/[place] [address] Isabella Baker APRN [facility] [place] [address] documented as of this encounter Visit Diagnoses Diagnosis Central artery occlusion of retina, right S/P carotid endarterectomy Other postprocedural status PVD (peripheral vascular disease) Peripheral vascular disease, unspecified documented in this encounter Care Teams Flight Service Specialist Relationship Specialty Start Date End Date Nataliya Messina MD [address] [place] [address] [address] [place] [address] PCP - General 10/02/11 01/11/22 documented as of this encounter
--- OUTSIDE RECORDS SUMMARY | 2024-01-05 02:47 | XMS_ITS | Encounter Summary ---
[place] [address] Care Team Providers Care Cat Sitter Name Role Phone Nataliya Messina MD Primary Care Provider [phone] Reason for Visit * Reason Onset Date Comments Other 12/31/2017 follow up Encounter Details Date Type Department Care Team (Late st Contact Info) Description 12/31/2017 Telephone Thoracic [place] [phone] Aga Petersen RN Other (follow up) Social History Tobacco Use Types Packs/Day [...] encounter Miscellaneous Notes * Telephone Encounter - Aga Petersen RN - 12/31/2017 10:35 AM EDT Call to pt, spoke to his sister Gamaliel,instructed again in need to avoid all coffee(decaf and caffeinated) Wednesday 01/03 prior to stress test ,also to not take his beta yaneth (lopressor) for 24 hours prior to this test . He is aware that he can resume this medication following the stress test . documented in this encounter Plan of Treatment Upcoming Encounters Date Type Department Care Team (Late st Contact Info) Description 01/10/2024 7:45 AM EDT Appointment Hematology [place] [address] 01/21/2024 10:[address] [place] [address] Heber Phillips MD [facility] DR HEMATOLOGY/[place] [address] 03/28/2024 10:00 AM EDT Office Visit Hematology/Oncology at [address] [phone] Heber Phillips MD [facility] DR HEMATOLOGY/[place] [address] Isabella Baker APRN [facility] [place] [address] documented as of this encounter Visit Diagnoses Not on filedocumented in this encounter Care Teams Cat Sitter Relationship Specialty Start Date End Date Nataliya Messina MD [address] [place] [address] PCP - General 10/02/11 01/11/22 documented as of this encounter
--- OUTSIDE RECORDS SUMMARY | 2024-01-05 02:47 | XMS_ITS | Encounter Summary ---
[place] [address] Care Team Providers Care Gauge Checker Name Role Phone Nataliya Messina MD Primary Care Provider [phone] Reason for Referral * Diagnostic Test (Routine) - Closed Specialty Diagnoses / Procedures Referred By Contac t Referred To Contact Radiology Diagnoses Pre-operative cardiovascular examination, high risk surgery Procedures NM Exercise Stress Myocardial Perfusion Genet Thomas V [employer] [facility] [address] [place] [address] Referral ID Status Reason Start Date Expiration Date V isits Requested Visits Authorized Closed Specialty Service Requested 12/28/2017 12/28/2018 4 4 Reason for Visit * Diagnostic Test (Routine) - Closed Specialty Diagnoses / Procedures Referred By Contac t Referred To Contact Radiology Diagnoses Pre-operative cardiovascular examination, high risk surgery Procedures NM Exercise Stress Myocardial Perfusion Genet [facility] [place] [address] [place] [address] Referral ID Status Reason Start Date Expiration Date V isits Requested Visits Authorized [id number] Closed Specialty Service Requested 12/28/2017 12/28/2018 4 4 Encounter Details Date Type Department Care Team (Late st Contact Info) Description 01/03/2018 9:50 AM EDT Hospital Encounter Nuclear Medicine at [facility] [place] [address] Genet [facility] [place] [address] Pre-operative cardiovascular examination, high risk surgery Discharge [...] AM EDT Appointment Hematology [place] [address] 01/21/2024 10:[address] [place] [place] [address] Heber Phillips MD [facility] HEMATOLOGY/[place] [address] 03/28/2024 10:00 AM EDT Office Visit Hematology/Oncology at [address] [address] Heber Phillips MD [facility] HEMATOLOGY/[place] [address] Isablela Baker APRN [facility] [place] [address] documented as of this encounter Procedures Procedure Name Priority Date/Time Associated Diagnosis Comments NM EXERCISE STRESS AND REST MYOCARDIAL PERFUSION Routine 01/03/2018 1:03 PM EDT Pre-operative cardiovascular examination, high risk surgery documented in this encounter Results * NM Exercise Stress Myocardial Perfusion (01/03/2018 1:03 PM EDT) Anatomical Region Laterality Modality Nuclear Medicine Addenda Addendum by Anshu Fisher MD on 03/21/2018 3:26 PM EDT --------ADDENDUM #1-------- CLINICAL HISTORY: ??RUL mass pre-op for Bronchoscopy, EBUS --------ORIGINAL REPORT -------- EXAMINATION: NM pharmacologic STRESS MYOCARDIAL PERFUSION CLINICAL HISTORY: Pre-op risk stratification TECHNIQUE: During rest, 8.7 mCi of technetium-99 sestamibi were administered intravenously. Approximately 15 minutes later, SPECT images of the heart were obtained with reconstruction in the short, vertical long and horizontal long axes. 26 mCi of technetium-99m sestamibi was then administered intravenously and the patient was exercised for one and one half additional minutes. Images of the heart were then again obtained with SPECT reconstruction. A low dose CT scan was acquired for the purpose of attenuation correction. COMPARISON: 05/11/2016 FINDINGS: No fixed or reversible perfusion defects are present. Functional analysis: Myocardial function: There is normal wall motion and wall thickening. Left ventricular ejection fraction: 65 % (normal greater than 50%) IMPRESSION: Normal myocardial perfusion study. No ischemia or scar. ??Left ventricular function is normal (LVEF 65%). I have personally reviewed the image(s) and the residents interpretation and agree with the findings, Anshu Fisher at 01/03/2018 3:09 PM Addendum by Anshu Fisher MD on 01/10/2018 9:52 AM EDT --------ADDENDUM #1-------- CLINICAL HISTORY: ??RUL mass pre-op for Bronchoscopy, EBUS --------ORIGINAL REPORT -------- EXAMINATION: NM pharmacologic STRESS MYOCARDIAL PERFUSION CLINICAL HISTORY: Pre-op risk stratification TECHNIQUE: During rest, 8.7 mCi of technetium-99 sestamibi were administered intravenously. Approximately 15 minutes later, SPECT images of the heart were obtained with reconstruction in the short, vertical long and horizontal long axes. 26 mCi of technetium-99m sestamibi was then administered intravenously and the patient was exercised for one and one half additional minutes. Images of the heart were then again obtained with SPECT reconstruction. A low dose CT scan was acquired for the purpose of attenuation correction. COMPARISON: 05/11/2016 FINDINGS: No fixed or reversible perfusion defects are present. Functional analysis: Myocardial function: There is normal wall motion and wall thickening. Left ventricular ejection fraction: 65 % (normal greater than 50%) IMPRESSION: Normal myocardial perfusion study. No ischemia or scar. ??Left ventricular function is normal (LVEF 65%). I have personally reviewed the image(s) and the residents interpretation and agree with the findings, Anshu Fisher at 01/03/2018 3:09 PM Impressions 01/03/2018 3:09 PM EDT Normal myocardial perfusion study. No ischemia or scar. ??Left ventricular function is normal (LVEF 65%). I have personally reviewed the image(s) and the residents interpretation and agree with the findings, Anshu Fisher at 01/03/2018 3:09 PM Narrative 01/03/2018 3:09 PM EDT EXAMINATION: NM pharmacologic STRESS MYOCARDIAL PERFUSION CLINICAL HISTORY: Pre-op risk stratification TECHNIQUE: During rest, 8.7 mCi of technetium-99 sestamibi were administered intravenously. Approximately 15 minutes later, SPECT images of the heart were obtained with reconstruction in the short, vertical long and horizontal long axes. 26 mCi of technetium-99m sestamibi was then administered intravenously and the patient was exercised for one and one half additional minutes. Images of the heart were then again obtained with SPECT reconstruction. A low dose CT scan was acquired for the purpose of attenuation correction. COMPARISON: 05/11/2016 FINDINGS: No fixed or reversible perfusion defects are present. Functional analysis: Myocardial function: There is normal wall motion and wall thickening. Left ventricular ejection fraction: 65 % (normal greater than 50%) Procedure Note Anshu Fisher MD - 01/03/2018 EXAMINATION: NM pharmacologic STRESS MYOCARDIAL PERFUSION CLINICAL HISTORY: Pre-op risk stratification TECHNIQUE: During rest, 8.7 mCi of technetium-99 sestamibi wereadministered intravenously. Approximately 15 minutes later, SPECT images of the heartwere obtained with reconstruction in the short, vertical long and horizontallong axes. 26 mCi of technetium-99m sestamibi was then administeredintravenously and the patient was exercised for one and one half additional minutes. Imagesof the heart were then again obtained with SPECT reconstruction. A low dose CT scan was acquired for the purpose of attenuationcorrection. COMPARISON: 05/11/2016 FINDINGS: No fixed or reversible perfusion defects are present. Functional analysis: Myocardial function: There is normal wall motion and wall thickening. Left ventricular ejection fraction: 65 % (normal greater than 50%) IMPRESSION Normal myocardial perfusion study. No ischemia or scar. Leftventricular function is normal (LVEF 65%). I have personally reviewed the image(s) and the residents interpretationand agree with the findings, Anshu Fisher at 01/03/2018 3:09 PM Genet Rivero APRN [facility] [place] ORDERABL ES documented in this encounter Visit Diagnoses Diagnosis Pre-operative cardiovascular examination, high risk surgery Pre-operative cardiovascular examination documented in this encounter Administered Medications Inactive Administered Medications - up to 3 most recent administrations Medication Order MAR Action Action Date Dose Rate Site technetium (Tc-99m) sestamibi injection 8.7 mCi 8.7 mCi, Intravenous, ONCE PRN, 1 dose, Starting on Wed01/03/18 at 1015, Until Wed01/03/18 at 1015, Per Protocol, Routine Given 01/03/2018 10:15 AM EDT 8.7 mCi documented in this encounter Care Teams Gauge Checker Relationship Specialty Start Date End Date Nataliya Messina MD [address] [place] [address] PCP - General 10/02/11 01/11/22 documented as of this encounter
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
--- OUTSIDE RECORDS SUMMARY | 2024-01-05 02:47 | XMS_ITS | Encounter Summary ---
[place] [address] Care Team Providers Care Camera Mechanic Name Role Phone Nataliya Messina MD Primary Care Provider [phone] Reason for Visit * Diagnostic Test (Routine) - Closed Specialty Diagnoses / Procedures Referred By Contac t Referred To Contact Radiology Diagnoses Pre-operative cardiovascular examination, high risk surgery Procedures NM Exercise Stress Myocardial Perfusion Genet Thomas V SPECIAL OFFICER [facility] [place] [address] [place] [address] Referral ID Status Reason Start Date Expiration Date V isits Requested Visits Authorized [id number] Closed Specialty Service Requested 12/28/2017 12/28/2018 4 4 Encounter Details Date Type Department Care Team (Late st Contact Info) Description 01/03/2018 9:51 AM EDT Hospital Encounter [place] [address] Genet Thomas V [facility] [place] [address] Discharge Disposition: Home Social History Tobacco Use [...] EDT Appointment Hematology [place] [address] 01/21/2024 10:[address] [place] [address] Heber Phillips MD [facility] HEMATOLOGY/[place] [address] 03/28/2024 10:00 AM EDT Office Visit Hematology/Oncology at [address] [phone] Heber Phillips MD [facility] HEMATOLOGY/[place] [address] Isabella Baker APRN [facility] [place] [address] documented as of this encounter Procedures Procedure Name Priority Date/Time Associated Diagnosis Comments NM EXERCISE STRESS AND REST MYOCARDIAL PERFUSION Routine 01/03/2018 1:03 PM EDT Pre-operative cardiovascular examination, high risk surgery documented in this encounter Visit Diagnoses Not on filedocumented in this encounter Administered Medications Inactive Administered Medications - up to 3 most recent administrations Medication Order MAR Action Action Date Dose Rate Site technetium (Tc-99m) sestamibi injection 26 mCi 26 mCi, Intravenous, ONCE PRN, 1 dose, Starting on Wed01/03/18 at 1300, Until Wed01/03/18 at 1300, Per Protocol, Routine Given 01/03/2018 1:00 PM EDT 26 mCi documented in this encounter Care Teams Camera Mechanic Relationship Specialty Start Date End Date Nataliya Messina MD [address] [facility] [address] [place] [address] PCP - General 10/02/11 01/11/22 documented as of this encounter
--- OUTSIDE RECORDS SUMMARY | 2024-01-05 02:47 | XMS_ITS | Encounter Summary ---
[place] [address] Care Team Providers Care Body Worker Name Role Phone Nataliya Messina MD Primary Care Provider [phone] Encounter Details Date Type Department Care Team (Latest Contact Info) Description 12/28/2017 4:00 PM EDT Clinical Support Same Day at [facility] [place], operated by [facility] [place] [phone] Mass of right lung Social History Tobacco [...] as of this encounter Progress Notes * Radha Serrano RN - 12/28/2017 4:00 PM EDT PAT questionnaire reviewed with patient while in Pre Admission testing. Pre- operative instruction booklet reviewed with patient. Reviewed importance of pain control and cough and deep breathing exercise during the post-operative period. Pt verbalizes a good understanding of all information reviewed. Reports that he feels safe at home. PLAN Testing: Blood work and EKG performed while in PAT. Special medication instructions: None Procedure date: Surgery not yet scheduled. documented in this encounter Plan of Treatment Upcoming Encounters Date Type Department Care Team (Late st Contact Info) Description 01/10/2024 7:45 AM EDT Appointment Hematology [place] [address] 01/21/2024 10:[address] [place] [address] Heber Phillips MD [facility] DR HEMATOLOGY/[place] [address] 03/28/2024 10:00 AM EDT Office Visit Hematology/Oncology at [address] [address] Heber Phillips MD [facility] DR HEMATOLOGY/[place] [address] Isabella Baker APRN [facility] [place] [place] [address] documented as of this encounter Results * EKG 12 Lead (12/28/2017 4:53 PM EDT) Ventricular rate 72 BPM MUSE SYSTEM Atrial Rate 72 BPM MUSE SYSTEM P-R Interval 136 ms MUSE SYSTEM QRS Duration 80 ms MUSE SYSTEM Q-T Interval 394 ms MUSE SYSTEM QTC Calculated (Bezet) 431 ms MUSE SYSTEM Calculated P [place] 55 degrees MUSE SYSTEM Calculated R [place] 71 degrees MUSE SYSTEM Calculated T [place] 73 degrees MUSE SYSTEM INTERPRETATION Normal sinus rhythm Normal ECG When compared with ECG of 21-OCT-2016 15:05, No significant change was found Confirmed by MD Hiro, Colin ([id number]) on 12/29/2017 8:19:28 AM MUSE SYSTEM 12/28/2017 4:53 PM EDT 12/29/2017 8:19 AM EDT Narrative MUSE SYSTEM - 12/29/2017 8:19 AM EDT Lowell Nicholson MD ? 01/03/2018 11:18 AM (No note.) Kingsley Ortiz MD ECG ORDERABLES [employer] SYSTEM documented in this encounter Visit Diagnoses Diagnosis Mass of right lung documented in this encounter Care Teams Body Worker Relationship Specialty Start Date End Date Nataliya Messina MD [address] [place] [address] PCP - General 10/02/11 01/11/22 documented as of this encounter
--- OUTSIDE RECORDS SUMMARY | 2024-01-05 02:47 | XMS_ITS | Encounter Summary ---
[place] [address] Care Team Providers Care Radar Scientist Name Role Phone Nataliya Messina MD Primary Care Provider [phone] Encounter Details Date Type Department Care Team (Latest Contact Info) Description 11/17/2016 10:23 AM EDT - 11/17/2016 11:59 PM EDT Hospital Encounter [place] [address] Vianca Castillo [place] Central artery occlusion of retina, right Discharge Disposition: Home Social History Tobacco Use [...] Sig Dispensed Refills Start Date End Date tiotropium (Spiriva with HandiHaler) 18 mcg Capsule, [...] mg Tablet Take by mouth. 11/02/2016 10/13/2022 acetaminophen (TYLENOL) 325 mg Tablet Take 3 tablets by mouth every 6 hours as needed for Pain. 30 tablet 1 10/22/2016 06/28/2017 carboxymethylcellulose (REFRESH PLUS) 0.5 % [address] 1 drop into both eyes 3 times daily as needed (or eye discomfort). 1 Bottle 10/22/2016 06/28/2017 hydrALAZINE (APRESOLINE) 25 mg Tablet Take 1 [...] AM EDT Appointment Hematology [place] [address] 01/21/2024 10:[address] [place] [place] [address] Heber Phillips MD [facility] HEMATOLOGY/[place] [address] 03/28/2024 10:00 AM EDT Office Visit Hematology/Oncology at [address] [phone] Heber Phillips MD [facility] HEMATOLOGY/[place] [address] Isabella Baker APRN [facility] MEDICAL [place] [address] documented as of this encounter Procedures Procedure Name Priority Date/Time Associated Diagnosis Comments CAROTID DUPLEX, UNILATERAL Routine 11/17/2016 10:34 AM EDT Central artery occlusion of retina, right documented in this encounter Results * Carotid Duplex, Unilateral (11/17/2016 10:34 AM EDT) VB Text Report Department: Vascular Surgery Lab Patient: [id number] (BRITTA SAEED) CPT: 72666 ICD10: H34.11 Referring Physician: LISE SEGURA ?? Indications: ??S/P R CEA ICD10 Diagnosis Code: H34.11 Findings: ICA Proximal, Right ? PSV (cm/s): 97 ? EDV (cm/s): 29 ? ICA/CCA: 0.9 ? %Stenosis: <15% ICA Distal, Right ? PSV (cm/s): 73 ? EDV (cm/s): 29 ? ICA/CCA: 0.7 CCA Distal, Right ? PSV (cm/s): 103 ? EDV (cm/s): 24 ? %Stenosis: Minimal CCA Proximal, Right ? PSV (cm/s): 135 ? EDV (cm/s): 28 External Carotid Artery, Right ? PSV (cm/s): 147 ? EDV (cm/s): 21 ? %Stenosis: <50% Vertebral, Right ? PSV (cm/s): 84 ? EDV (cm/s): 20 ? Direction of Flow: Antegrade Interpretation: RIGHT: Widely patent carotid bifurcation and proximal internal carotid artery with no evidence of residual stenosis s/p CEA. Significant improvement from pre-op exam. The bifurcation level is in the mid neck. Vertebral Artery Data: Patent RIGHT vertebral artery with normal antegrade flow. Previous Carotid Studies: Date ?RIGHT ICA Stenosis [...] 89 ?1.00 ? n/a ?n/a ?? n/a Current Exam ? <15% ? 97 ?0.90 ? n/a ?n/a ?? n/a Electronically Signed by: LISE SEGURA on 2016-11-17 11:30:06 AM VASCUBASE VB Text Report End of Report VAS[facility] 11/17/2016 10:3 4 AM EDT Lise Segura MD VASCULAR ORDERABLES [facility] documented in this encounter Visit Diagnoses Diagnosis Central artery occlusion of retina, right documented in this encounter Care Teams Radar Scientist Relationship Specialty Start Date End Date Nataliya Messina MD [address] [place] [address] PCP - General 10/02/11 01/11/22 documented as of this encounter
--- OUTSIDE RECORDS SUMMARY | 2024-01-05 02:47 | XMS_ITS | Encounter Summary ---
[place] [address] Care Team Providers Care Sales Support Coordinator Name Role Phone Nataliya Messina MD Primary Care Provider [phone] Encounter Details Date Type Department Care Team (Late st Contact Info) Description 12/17/2017 Telephone [place] [address] Cady Petersen Social History Tobacco [...] Telephone Encounter - Cady Petersen LNA - 12/17/2017 12:16 PM EDT Requested Chest CT and CXR from [facility]. documented in this encounter Plan of Treatment Upcoming Encounters Date Type Department Care Team (Late st Contact Info) Description 01/10/2024 7:45 AM EDT Appointment Hematology [place] [phone] 01/21/2024 10:[address] [place] [address] Heber Phillips MD [facility] DR HEMATOLOGY/[place] [address] 03/28/2024 10:00 AM EDT Office Visit Hematology/Oncology at [address] [phone] Heber Phillips MD [facility] DR HEMATOLOGY/[place] [address] Isabella Baker APRN [facility] [place] [address] documented as of this encounter Visit Diagnoses Not on filedocumented in this encounter Care Teams Sales Support Coordinator Relationship Specialty Start Date End Date Nataliya Messina MD [address] [place] [address] [address] [place] [address] PCP - General 10/02/11 01/11/22 documented as of this encounter
--- OUTSIDE RECORDS SUMMARY | 2024-01-05 02:47 | XMS_ITS | Encounter Summary ---
Author Organization [facility] Address [facility] [place] [address] Care Team Providers Care Radar Mechanic Name Role Phone Nataliya Messina MD Primary Care Provider [phone] Reason for Visit * Reason Onset Date Comments Follow-up 01/27/2017 Encounter Details Date Type Department Care Team (Late st Contact Info) Description 01/27/2017 [place] [phone] Gucci Rosas MD [facility] [place] [address] Follow-up Social History Tobacco Use Types Packs/Day [...] encounter Miscellaneous Notes * Telephone Encounter - Anitha Glass - 02/04/2017 10:45 AM EDT Not able to make contact with patient, recall placed into the system * Telephone Encounter - Anitah Glass - 02/01/2017 3:34 PM EDT I have called & left a 2nd message for the patient to call back & schedule. * Telephone Encounter - Anitha Glass - 01/27/2017 2:44 PM EDT I have called and left a message for patient to call and schedule an appointment. 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 documented in this encounter Plan of Treatment Upcoming Encounters Date Type Department Care Team (Late st Contact Info) Description 01/10/2024 7:45 AM EDT Appointment [place] [address] 01/21/2024 10:[address] [place] [address] Heber Phillips MD [facility] DR HEMATOLOGY/[place] [address] 03/28/2024 10:00 AM EDT Office Visit Hematology/Oncology at [address] [phone] Heber Phillips MD [facility] DR HEMATOLOGY/[place] [address] Isabella Baker APRN [facility] [place] [address] documented as of this encounter Visit Diagnoses Not on filedocumented in this encounter Care Teams Radar Mechanic Relationship Specialty Start Date End Date Nataliya Messina MD [address] [place] [address] [address] [place] [address] PCP - General 10/02/11 01/11/22 documented as of this encounter
--- OUTSIDE RECORDS SUMMARY | 2024-01-05 02:47 | XMS_ITS | Encounter Summary ---
Author Organization [facility] Address [facility] [place] [address] Care Team Providers Care Pipe [address] Service Name Role Phone Nataliya Messina MD Primary Care Provider [phone] Encounter Details Date Type Department Care Team (Late st Contact Info) Description 12/28/2017 4:20 PM EDT Laboratory [place] [phone] Social History Tobacco Use Types Packs/Day Years [...] AM EDT Appointment Hematology [place] [phone] 01/21/2024 10:[address] [place] [address] Heber Phillips MD [facility] HEMATOLOGY/[place] [address] 03/28/2024 10:00 AM EDT Office Visit Hematology/Oncology at [address] [address] Heber Phillips MD [facility] DR HEMATOLOGY/[place] [address] Isabella Baker APRN [facility] [place] [address] documented as of this encounter Visit Diagnoses Not on filedocumented in this encounter Care Teams [address] Service Relationship Specialty Start Date End Date Nataliya Messina MD [address] [place], [place] [address] PCP - General 10/02/11 01/11/22 documented as of this encounter
--- OUTSIDE RECORDS SUMMARY | 2024-01-05 02:47 | XMS_ITS | Encounter Summary ---
Author Organization [facility] [place] [address] Care Team Providers Care Fly Worker Name Role Phone Nataliya Messina MD Primary Care Provider [phone] Reason for Visit * Reason Comments Follow-up yearly Coronary Artery Disease Encounter Details Date Type Department Care Team (Late st Contact Info) Description 06/28/2017 3:20 PM EST Office Visit Cardiology at [address] [address] Lauri Winn Jr., MD [address] [place] [address] [phone] ASCVD (arteriosclerotic cardiovascular disease); Essential hypertension; Hyperlipidemia, unspecified hyperlipidemia type Social [...] Sign Reading Time Taken Comments Blood Pressure 120/50 06/28/2017 2:57 PM EST Pulse 88 06/28/2017 2:57 PM EST Temperature - - Respiratory Rate 14 06/28/2017 2:57 PM EST Oxygen Saturation - - Inhaled Oxygen Concentration - - Weight 73.9 kg (163 lb) 06/28/2017 2:57 PM EST Height 167.6 cm (5' 6) 06/28/2017 2:57 PM EST Body Mass Index 26.31 06/28/2017 2:57 PM EST documented in this encounter Progress Notes * Lauri Winn Jr., MD - 06/28/2017 3:20 PM EST Subjective: Patient ID: Britta Saeed is a 61 y.o. male. Chief Complaint Patient presents with ??? Follow-up yearly ??? Coronary Artery Disease HPI He has dyspnea in cold air but no chest pain. His exercise tolerance inside is unchanged. He denies palpitations, dizziness or edema. 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 Review of Systems no bruising or bleeding SH: sad, from his Allergies Allergen Reactions ??? Contrast [Iodine And Iodide Containing Products] Anaphylaxis and Hives He has tolerated IV dye since with premedication. History of anaphylaxis as well. Current Outpatient Prescriptions Medication Sig Dispense Refill ??? tiotropium (SPIRIVA WITH HANDIHALER) 18 mcg [...] differently: 2 Puff(s), Inh, Twice daily PRN) No current facility-administered medications for this visit. Patient Active Problem List Diagnosis ??? Central [...] to right leg Objective: Physical Exam BP 120/50 Pulse 88 Resp 14 Ht 167.6 cm (5' 6) Wt 73.9 kg (163 lb) BMI 26.31 kg/m2 NAD No JVD/HJR Chest diminished BS, no wheezing Cor RR, no murmur Abd benign Ext no edema Results for BRITTA SAEED ( ) as of 06/28/2017 15:16 Ref. Range 10/19/2016 15:10 Chol, Total Latest Ref Range: <=239 mg/dL 127 HDL Latest Ref Range: >=40 mg/dL 31 (L) Chol/HDL Ratio Latest Units: ratio 4.1 Triglycerides Latest Ref Range: <=199 mg/dL 166 LDL Cholesterol Latest Ref Range: <=190 mg/dL 63 Assessment and Plan: Well controlled angina- encouraged to keep up activity Dyspnea in cold air due to lung disease BP controlled Lipids- good aside from HDL- reviewed need to keep up activity to try and raise that as much as possible Follow up yearly documented in this encounter Plan of Treatment Upcoming Encounters Date Type Department Care Team (Late st Contact Info) Description 01/10/2024 7:45 AM EDT Appointment Hematology [place] [address] 01/21/2024 10:[address] [place] [address] Heber Phillips MD [facility] DR HEMATOLOGY/[place] [address] 03/28/2024 10:00 AM EDT Office Visit Hematology/Oncology at [address] [address] Heber Phillips MD [facility] DR HEMATOLOGY/[place] [address] Isabella Baker APRN [facility] [place] [address] documented as of this encounter Visit Diagnoses Diagnosis ASCVD (arteriosclerotic cardiovascular disease) Unspecified cardiovascular disease Essential hypertension Unspecified essential hypertension Hyperlipidemia, unspecified hyperlipidemia type documented in this encounter Care Teams Fly Worker Relationship Specialty Start Date End Date Nataliya Messina MD [address] [place] [address] [address] [place], [place] [address] PCP - General 10/02/11 01/11/22 documented as of this encounter
--- OUTSIDE RECORDS SUMMARY | 2024-01-05 02:47 | XMS_ITS | Encounter Summary ---
Author Organization [facility] Address [facility] [place] [address] Care Team Providers Care Dial Printer Name Role Phone Nataliya Messina MD Primary Care Provider Encounter Details Date Type Department Care Team (Latest Contact Info) Description 01/05/2018 7:05 AM EDT - 01/05/2018 11:40 AM EDT Hospital En[place] [address] Tim Rodríguez MD [facility] [place] [address] Mass of right lung Discharge Disposition: Home [...] Sign Reading Time Taken Comments Blood Pressure 121/76 01/05/2018 11:00 AM EDT Pulse 79 01/05/2018 11:00 AM EDT Temperature 36.8 ??C (98.2 ??F) 01/05/2018 10:21 AM E DT Respiratory Rate 18 01/05/2018 11:00 AM EDT Oxygen Saturation 96% 01/05/2018 11:00 AM EDT Inhaled Oxygen Concentration - [...] away in 12-24 hours. * Patient Instructions* Alejandro Keene MD - 01/05/2018 10:25 AM EDT Call if you have a fever of greater than 101 degrees, shaking chills, develop redness or drainage from your incision site(s), or if you have questions. During normal business hours, Wednesday- Wednesday 8:00 a.m.-5:00 p.m., please call [phone] to speak to a nurse in the Thoracic Clinic. If you get an answering machine or it is after hours or on weekends or holidays please call [phone] and askto speak to the Thoracic Physician manufacturing production manager. Exercise & Activity Level: As you [...] 07/04/2018 2:20 PM Lauri Winn Jr., MD [facility] If you have any questions or concerns during normal business hours, Wednesday- Wednesday 8:00 a.m.-5:00 p.m., please call [phone] to speak to a nurse in the Thoracic Clinic. If you get an answering machine or it is after hours or on weekends or holidays please call [phone] and ask to speak to the Thoracic Physician manufacturing production manager. documented in this encounter Medications at [...] 21.16) performed by Omero Wills MD at [facility] MAIN OR MEDS: No current facility-administered medications [...] MARCELLUS German 01/05/2018 Thoracic Surgery Service Pager [phone] documented in this encounter Miscellaneous Notes * [...] Operative Note Patient Name: Hieu Tillman : [id number] MR#: [id number] Case Date: 01/05/2018 Surgeon: Surgeon(s) and Role: [...] AM EDT Appointment Hematology [place] [address] 01/21/2024 10:[address] [place] [address] Heber Phillips MD [facility] HEMATOLOGY/[place] [address] 03/28/2024 10:00 AM EDT Office Visit Hematology/Oncology at [address] [phone] Heber Phillips MD [facility] DR HEMATOLOGY/[place] [address] Isabella Baker APRN [facility] [place] [address] documented as of this encounter Procedures Procedure Name Priority Date/Time Associated Diagnosis Comments NON-BUSINESS OFFICE ASSOCIATE FINAL REPORT Routine 01/05/2018 2:40 PM EDT NON-BUSINESS OFFICE ASSOCIATE FINAL REPORT Routine 01/05/2018 2:34 PM EDT [...] EDT documented in this encounter Results * Non-Nut Culler Final Report (01/05/2018 2:40 PM EDT) Non-Nut Culler Final Report [id number] ? Location: [facility]; [facility]; A The signing pathologist [...] The assay was performed according to the health services director ? 's instructions using Anti-PD-L1 (22C3, pharmDX) antibody. Electronically signed by: ??Aria García MD Verified: ??01/11/2018 ?Pathologist Performed at: ??-[facility] Dept. of Pathology, [place], [place] ? Non-Nut Culler Final DIAGNOSIS Positive for Malignancy Electronically signed by: ??Bryon Garza MD Verified: ??01/10/2018 ?Pathologist Performed at: ??-[facility] Dept. of Pathology, [place], [place] DISCUSSION Hilar mass, right (EBUS-guided FNA): [...] 7; Pap Stain 7; Cell Block 2. [facility] 01/05/2018 2:40 PM EDT Tim Rodríguez MD PATHOLOGY/CYTOLOGY O ASHLYN [facility] [place] [address] * Non-Nut Culler Final Report (01/05/2018 2:34 PM EDT) Non-Nut Culler Final Report [id number] ? Location: [facility]; [facility]; A The signing pathologist has (i) examined the relevant preparation(s) for the specimen(s) and (ii) rendered or confirmed the diagnosis(es). . ? Non-Nut Culler Final DIAGNOSIS Negative for Malignancy Electronically signed by: ??Bryon Garza MD Verified: ??01/10/2018 ?Pathologist Performed at: ??-[facility] Dept. of Pathology, [facility], [place], [place] DISCUSSION Lymph node, right level 4 [...] 2; Pap Stain 2; Cell Block 1. [facility] 01/05/2018 2:34 PM EDT Tim Rodríguez MD PATHOLOGY/CYTOLOGY O ASHLYN [facility] [place] [address] * Molecular Genetics Report (01/05/2018 2:22 PM EDT) Molecular Report [id number] ? Location: [facility]; [place]; A The signing pathologist has (i) examined the relevant preparation(s) for the specimen(s) and (ii) rendered or confirmed the diagnosis(es). . ?Molecular Genetics RESULTS Please refer to Pathology Report [id number] for final pathology diagnosis. TEST: ??ALK FISH [...] by the Molecular Pathology Laboratory at the [facility]. This assay is an IVD and has [...] Quinn DUMONT, et al. J Clin Oncol 2009,26:7404-7861 Edson Roche, et al. Nature 2007,448:561-566 Reviewed by: ?? Tanya Larsen MD ? Heat Treat Puller, Molecular Pathology _ Electronically signed by: ??Josee HIGUERA PhD, Demarcus Hernandez Verified: ??01/26/2018 ?Pathologist Performed at: ??-[facility] Dept. of Pathology, [place], [place] ?Molecular Genetics RESULTS Please refer to Pathology Report [id number] for final pathology diagnosis. TEST: ??ROS1 (6q22) [...] using a dual-color break-apart probe (BAP) strategy ([employer] ?ROS1 (6q22) Break Probe). Slide adequacy and [...] Clinical Genomics and Advanced Technology (CGAT) at [facility]. It has not been cleared or approved by the FDA. This test is used for clinical use and should not be considered as investigational or for research purposes. The Laboratory for Clinical Genomics and Advanced Technology (CGAT) is certified by the Clinical Laboratory Improvement Act of 1988 and as such is allowed to perform high complexity clinical testing. These FISH results are intended to be used as an adjunct test to existing clinical and pathologic information. REFERENCES: 1. Takemike et. al., Vandana Med 2012;18:378-3812. 2. Sanya et. al., Clin Cancer Res. 2012 Jan 15;18:4449-57. 3. Suehara et. al., Clin Cancer Res 2012;18(24):6599-6 608. 4. Roscoeon et. al., J Clin Oncol 2012;30:863-870. 5. Jose Enrique et. al., J Thorac Oncol 2012;7:1347-2435. 6. Solo et. al., J Mol Diagn. 2018;20:129-159. Reviewed by: ??Tanya Larsen MD ? Heat Treat Puller, Molecular Pathology _ Electronically signed by: ??Josee HIGUERA PhD, Demarcus Hernandez Verified: ??01/26/2018 ?Pathologist Performed at: ??-[facility] Dept. of Pathology, [place], [place] ?Molecular Genetics RESULTS Please refer to [...] pathology report and slides, the specimen ( 401 A2) was selected for mutation analysis from [...] clinical trial eligibility; consider presenting at the [facility] Molecular Tumor Board for further interpretation and discussion by contacting ??BuddyNaarashawn ??. For additional information on clinically actionable variants, please visit the following websites: http://www.mycance rgenome.org/conten t/disease/lung-can cer http://www.nccn.or g/professionals/ph ysician_gls/f_guid elimukul.asp Methods: ??Genomic DNA was extracted from formalin-fixed paraffin-embedded tumor tissue. DNA sequencing was performed using the 50-gene Cancer Hotspot Panel (Fancred) for each gene reported. ??Sequences were aligned [...] Technology ? (CGAT) . RESULTS Laboratory at [facility]. It has not been cleared or approved [...] Kwabena MOHAN et al. J Mol Diagn 2012Mar 05(5):607-622; Romel GJ, et al. Clin Chem Lab Med May 2013;13:1-8. Electronically signed by: ??Rere Schreiber, Dennis Addison Verified: ??01/21/2018 ?Molecular Pathologist Performed at: ??-[facility] Dept. of Pathology, [facility] 01/05/2018 2:22 PM EDT Tim Rodríguez MD PATHOLOGY/CYTOLOGY O RDERABLES [facility] [place] [address] * XR Chest PA or AP 1 [...] mass. IMPRESSION No pneumothorax or other complication. Tmi Rodríguez MD IMG DX ORDERABLES * Cytopathology Non-Gynecological (01/05/2018 9:45 AM EDT) AP Specimen 01/05/2018 9:45 AM EDT 01/05/2018 9:45 AM EDT Narrative [facility] - 01/05/2018 9:45 AM EDT Specimen requisition ordered. ??Separate Pathology report to follow Tim Rodríguez MD PATHOLOGY/CYTOLOGY O ASHLYN Performing Organization Address [facility]/ZIP Co de Phone Number [facility] [place] [address] * Cytopathology Non-Gynecological (01/05/2018 9:33 AM EDT) AP Specimen 01/05/2018 9:33 AM EDT 01/05/2018 9:33 AM EDT Narrative [facility] - 01/05/2018 9:33 AM EDT Specimen requisition ordered. ??Separate Pathology report to follow Tim Rodríguez MD PATHOLOGY/CYTOLOGY O ASHLYN Performing Organization Address [facility]/ZIP Co de Phone Number [facility] [place] [address] * POCT Glucose (01/05/2018 8:00 AM EDT) POC Glucose 111 65 - 199 mg/dL [facility] Comment: Supplemental ranges: <140 mg/dL before meals <180 mg/dL all other times of the day Blood specimen (specimen) 01/05/2018 8:00 AM EDT 01/05/2018 8:00 AM EDT Tim Rodríguez MD POINT OF CARE TEST O ASHLYN Performing Organization Address City/[facility]/ZIP Co de Phone Number [facility] [place] [address] documented in this encounter Visit Diagnoses Diagnosis [...] subcutaneous injection 5,000 Units 5,000 Units, Subcutaneous, TOOL SHARPENER TO O.R., 1 dose, On Wed01/05/18 at [...] 8:15 AM EDT 1,000 mLs 100 mL/hr documented in this encounter Active and Recently Administered Medications Times are shown in EDT. Scheduled Medication Order 01/03/2018 01/04/2018 01/05/2018 acetaminophen (TYLENOL) tablet 1,000 mg (COMPLETED) 1,000 mg, Oral, ONCE, 1 dose, On Wed01/05/18 at 0800, Administer with SIP of H2O only., Day of Surgery (Day of Procedure), Routine 801 (Given - Provid er: Deisi Razo RN) heparin (Porcine) subcutaneous injection 5,000 Units (COMPLETED) 5,000 Units, Subcutaneous, TOOL SHARPENER TO O.R., 1 dose, On Wed01/05/18 at 0800, Not within 60 minutes of placing epidural catheter., Day of Surgery (Day of Procedure), Routine 812 (Given - Provid er: Deisi Razo RN) [...] MD) documented in this encounter Care Teams Dial Printer Relationship Specialty Start Date End Date Nataliya Messina MD [address] [place] [address] PCP - General 10/02/11 01/11/22 documented as of this encounter
--- OUTSIDE RECORDS SUMMARY | 2024-01-05 02:47 | XMS_ITS | Encounter Summary ---
Author Organization [facility] [place] [address] Care Team Providers Care Petroleum Engineer Name Role Phone Nataliya Messina MD Primary Care Provider [phone] Encounter Details Date Type Department Care Team (Late st Contact Info) Description 01/28/2017 Telephone [place] [phone] Isabella Tolbert RN Social History Tobacco Use Types Packs/Day [...] encounter Miscellaneous Notes * Telephone Encounter - Isabella Tolbert RN - 01/28/2017 9:23 AM EDT Neurology Discharge 90 day post tPA/neuro-interventional procedure follow up Pt has not regained any vision in R eye, he is driving but limiting driving to familiar roads, driving only short distances, and he does not drive at night. Pt says recent vision appt was told that the eye is still alive and has blood supply. Pt given contact information and instructed to call withany questions or concerns Diagnosis on Discharge Central artery occlusion of retina ? Stenosis of right carotid artery Admit date: 10/19/2016 Discharge date and time: 10/22/2016 Attending Physician: Omero Wills MD Intervention: R CEA [facility] you called or [facility], an ER or urgent care facility, or other healthcare provider in the last few months for neurologic symptoms? Pt denies any new symptoms If yes, what was the concern and the plan? Any changes to your medications or treatment plan? Is there an agency coming to help at home with physical therapy, occupational therapy, or nursing? Pt is not homebound, getting around independently If Yes: What is the name of the agency? How often are they coming to see you and what kind of help are you getting? Any falls since discharge? No falls ??? If + fall, were there any injuries? Assistive devices used for mobility? i. Is this new? Medication review. ??? Has there been any problem getting or taking medications (especially Plavix, Coumadin, Lovenox,or other anticoagulants)? No problems or questions re: medications ??? Has there been any new symptoms or side effects since starting the new medications? i. Any new bleeding, bruising, constipation? Review health conditions that increase risk of stroke: (evaluate what health conditions patient identifies and interventions patient has begun to address risk factors) Risk Factor Treatment Goals Hypertension Patients with hypertension: <140/90 mm Hg; 10-mm Hg reduction in systolic BP and 5-mm Hg reduction in diastolic BP from baseline Patients with diabetes mellitus or renal disease: <130/80 mm Hg; 10-mm Hg reduction in systolic BP and 5-mm Hg reduction in diastolic BP from baseline Patients without hypertension: <120/80 mm Hg; 10-mm Hg reduction in systolic BP and 5-mm Hg reduction in diastolic BP from baseline Lisinopril 20mg daily HCTZ 25mg daily Metoprolol Tartrate 25mg BID Dyslipidemia Atherosclerotic stroke or TIA: low-density lipoprotein (LDL) cholesterol level <70 mg/dl or 50% reduction in LDL cholesterol level from baseline Nonatherosclerotic stroke or TIA: per National Cholesterol Education Program (NCEP) Adult TreatmentPanel III (ATP-III) goals Results for BRITTA SAEED ( ) as of 01/28/2017 09:24 Ref. Range 10/19/2016 15:10 Chol, Total Latest Ref Range: <=239 mg/dL 127 HDL Latest Ref Range: >=40 mg/dL 31 (L) Chol/HDL Ratio Latest Units: ratio 4.1 Triglycerides Latest Ref Range: <=199 mg/dL 166 LDL Cholesterol Latest Ref Range: <=190 mg/dL 63 Atorvastatin 80mg nightly Diabetes Mellitus HgA1c level <7% Cigarette Smoking Complete cessation Not smoking Alcohol Consumption Men: two or fewer drinks per day Non woman: one or fewer drinks per day Physical Activity At least 30 minutes of moderate intensity physical exercise 1- 3 times per week Diet Low-fat, low-sodium, and Mediterranean or Dietary Approaches to Stop Hypertension diets (diabetic diet when applicable) Obesity Goal body mass index of 18.5-25 kg/m2 1- Could you live alone without any help from another person? This means being able to bathe, use the toilet, shop, prepare or get meals, and manage finances. (YES move to question 1a, NO go to question 3) Yes a. Can you do everything that you were doing right before your stroke, even if slower and not as much? (YES ask question 2, NO = 2 points) Yes 2- Are you completely back to the way you were right before your stroke No (YES= 0 points, NO =1 point) 3- Can you walk from one room to another without help from another person? (YES = 3 points, NO ask question 3a) a. Can you sit up in bed without any help? (YES = 4 points, NO = 5 points) Score: 1 Review with the patient the 5 signs of a stroke? Make sure the patient is aware that not all symptoms need to be present. S/S stroke reviewed with pt, pt verbalized understanding 1. ~ numbness and/or weakness of face, arm, and/or leg especially on one side of body 2. ~ confusion, trouble speaking and/or understanding 3. ~ trouble seeing in one or both eyes 4. ~ trouble walking, dizziness, and/or decreased coordination, loss of balance 5. ~ severe headache with no known cause A reminder that if any of these signs or symptoms are present - call 911 immediately. Offer patient opportunity to ask questions documented in this encounter Plan of Treatment Upcoming Encounters Date Type Department Care Team (Late st Contact Info) Description 01/10/2024 7:45 AM EDT Appointment Hematology [place] [address] 01/21/2024 10:[address] [place] [address] [facility] DR HEMATOLOGY/[place] [address] 03/28/2024 10:00 AM EDT Office Visit Hematology/Oncology at [address] [address] [facility] DR HEMATOLOGY/[place] [address] [facility] [place] [address] documented as of this encounter Visit Diagnoses Not on filedocumented in this encounter Care Teams Petroleum Engineer Relationship Specialty Start Date End Date Nataliya Messina MD [address] [place] [address] PCP - General 10/02/11 01/11/22 documented as of this encounter
--- OUTSIDE RECORDS SUMMARY | 2024-01-05 02:47 | XMS_ITS | Encounter Summary ---
Author Organization [facility] [place] [address] Care Team Providers Care Bistro Server Name Role Phone Nataliya Messina MD Primary Care Provider [phone] Encounter Details Date Type Department Care Team (Late Contact Info) Description 12/02/2016 Orders Only Vascular Surgery at [place] [phone] Remi Teixeira RN Bilateral carotid artery stenosis; PVD (peripheral vascular disease) Social History Tobacco [...] AM EDT Appointment Hematology [place] [phone] 01/21/2024 10:[address] [place] [address] Heber Phillips MD [facility] HEMATOLOGY/[place] [address] 03/28/2024 10:00 AM EDT Office Visit Hematology/Oncology at [address] [address] Heber Phillips MD [facility] DR HEMATOLOGY/[place] [address] Isabella Baker APRN [facility] DR [place] [address] documented as of this encounter Visit Diagnoses Diagnosis Bilateral carotid artery stenosis Occlusion and stenosis of multiple and bilateral precerebral arteries without mention of cerebral infarction PVD (peripheral vascular disease) Peripheral vascular disease, unspecified documented in this encounter Care Teams Bistro Server Relationship Specialty Start Date End Date Nataliya Messina MD [address] [place] [address] PCP - General 10/02/11 01/11/22 documented as of this encounter
--- OUTSIDE RECORDS SUMMARY | 2024-01-05 02:47 | XMS_ITS | Encounter Summary ---
[place] [address] Care Team Providers Care Purchasing Intern Name Role Phone Nataliya Messina MD Primary Care Provider [phone] Reason for Visit * Reason Onset Date Comments Follow-up 10/27/2016 7 day follow up call Encounter Details Date Type Department Care Team (Late st Contact Info) Description 10/27/2016 [place] [phone] Isabella Tolbert RN Follow-up (7 day follow up call) Social History Tobacco Use Types Packs/Day [...] Telephone Encounter - Isabella Tolbert RN - 10/27/2016 8:37 AM EDT Neurology Discharge 7 day post discharge follow up Call placed to pt 10/27/2016 3:25, message left on voicemail requesting call back Call placed to pt 10/28/2016 3:38, message left on voicemail requesting call back Call placed to pt 10/29, pt having a difficult time adjusting to the vision changes in R eye. Pt is feeling good otherwise, trying to keep his chin up Pt notes some dark bruising on bottom of throat, upper chest. Pt reassured that it was bruising from CEA. Pt Dx: ??? Central artery occlusion of retina ? Stenosis of right carotid artery Admit date: 10/19/2016 Discharge date and time: 10/22/2016 Attending Physician: Omero Wills MD Date of Follow Up: 11/19/2016 1:30 PM Anshu Maciel MD Neurology [phone] 1- Medication review. New Medications ? Dose Details ?? acetaminophen 325 mg Tab Commonly known as: TYLENOL Take 3 tablets by mouth every 6 hours as needed for Pain. ? carboxymethylcellulose 0.5 % Dpet Commonly known as: REFRESH PLUS Place 1 drop into both eyes 3 times daily as needed (or eye discomfort). ? hydrALAZINE 25 mg Tab Commonly known as: APRESOLINE Take 1 tablet by mouth as needed (take one tab for SBP>150. re-check in one hour and if SBP still >>150, call vascular surgery). ? meTOPROLOL tartrate 25 mg Tab Commonly known as: LOPRESSOR Take 1 tablet by mouth 2 times daily. ?? Continued medications with new dosing ? Dose Details ?? lisinopril 20 mg Tab Commonly known as: PRINIVIL;ZESTRIL Take 1 tablet by mouth daily. What changed: - medication strength - how much to take STOPPED Medications ? meTOPROLOL succinate 50 mg Tablet sr Commonly known as: TOPROL-XL ? Has there been any problem getting or taking medications (especially Plavix, Coumadin, Lovenox,or other anticoagulants)? Pt not having any problems with medications, having no questions ??? Has there been any new symptoms or side effects since starting the new medications? i. Any new bleeding, bruising, constipation? 2- Have you had any new neurologic symptoms or had any unscheduled visits or calls with your PCP, an ER, urgent care, or other healthcare provider for neurological symptoms? No new symptoms ??? If yes, what was the concern and the plan? Any changes to your medications or treatment plan? 3- Any falls since discharge? No falls, some loss of balance, bumping into things ??? If + fall, were there any injuries? Assistive devices used for mobility? No assistive devices, tries to get outside as much as possible i. Is this new? 4- Is there an agency coming to help at home with physical therapy, occupational therapy, or nursing? Nursing coming in, monitoring incision and BP. Pt has not needed the Hydralazine since discharge ??? Name of the agency? [facility] PHONE: [phone] FAX: [phone] ??? Offer referral for therapy in a local hospital or with a local company if patient is not getting home care services? 5- Questions about hospital stay ??? Were you happy with the information you were given about your stroke/TIA? Do you feel confident that you and your family have the information you need now that you are home? Is there anything that you would like us to know about your hospitalization? Pt says that the nurses and most of the doctors did a great job explaining things to him. The nurses did a wonderful job taking care of me and Luis Miguel (roomate) i. What part of your hospital stay could be better? Luis Miguel was a little loud at night, but we did ok ii. What was the best part of your hospital stay? 6- Health conditions that increase risk of stroke: (indicate what health conditions patient has andsuggest ways for pt to address risk factors - (document interventions recommended and educational materials sent) Risk Factor Treatment Goals Hypertension Patients with [...] Hg reduction in diastolic BP from baseline HYDRALAZINE HCL (Tablet) APRESOLINE 25 mg Take 1 tablet by mouth as needed (take one tab for SBP>150. re-check in one hour and if SBP still >>150, call vascular surgery). ? HYDROCHLOROTHIAZIDE (Tablet) HYDRODIURIL 25 mg Take 25 mg by mouth daily. ? LISINOPRIL (Tablet) PRINIVIL;ZESTRIL 20 mg Take 1 tablet by mouth daily. ? METOPROLOL TARTRATE (Tablet) LOPRESSOR 25 mg Take 1 tablet by mouth 2 times daily. ?? Dyslipidemia Atherosclerotic stroke or TIA: low-density lipoprotein (LDL) cholesterol level <70 mg/dl or 50% reduction in LDL cholesterol level from baseline Nonatherosclerotic stroke or TIA: per National Cholesterol Education Program (NCEP) Adult TreatmentPanel III (ATP-III) goals Results for BRITTA SAEED ( ) as of 10/27/2016 08:40 Ref. Range 10/19/2016 15:10 Chol, Total Latest Ref Range: <=239 mg/dL 127 HDL Latest Ref Range: >=40 mg/dL 31 (L) Chol/HDL Ratio Latest Units: ratio 4.1 Triglycerides Latest Ref Range: <=199 mg/dL 166 LDL Cholesterol Latest Ref Range: <=190 mg/dL 63 Atorvastatin 80mg nightly Diabetes Mellitus HgA1c level <7% Cigarette Smoking Complete cessation Alcohol Consumption Men: two or fewer drinks per day Non woman: one or fewer drinks per day Physical Activity At least 30 minutes of moderate intensity physical exercise 1- 3 times per week Diet Low-fat, low-sodium, and Mediterranean or Dietary Approaches to Stop Hypertension diets (diabetic diet when applicable) Obesity Goal body mass index of 18.5-25 kg/m2 7- Offer patient opportunity to ask questions regarding information in packet and point out Stroke Support Group pamphlet 8- Review with the patient the 5 signs of a stroke? Make sure the patient is aware that not all symptoms need to be present. S/S stroke reviewed with pt, pt verbalized understanding ??? Sudden NUMBNESS or weakness of face, arm, or leg, especially on one side of the body ??? Sudden CONFUSION, trouble speaking or understanding speech ??? Sudden TROUBLE SEEING in one or both eyes ??? Sudden TROUBLE WALKING, dizziness, loss of balance or coordination ??? Sudden SEVERE HEADACHE with no known cause If you or someone else shows any of these symptoms, immediately call 02-19- or emergency medical services. documented in this encounter Plan of Treatment Upcoming Encounters Date Type Department Care Team (Late st Contact Info) Description 01/10/2024 7:45 AM EDT Appointment H[place]ology [place] [address] 01/21/2024 10:[address] [place] [place] [address] Heber Phillips MD [facility] [address] HEMATOLOGY/[place] [address] 03/28/2024 10:00 AM EDT Office Visit Hematology/Oncology at [address] [address] Heber Phillips MD [facility] DR HEMATOLOGY/[place] [address] Isabella Baker APRN [facility] [place] [address] documented as of this encounter Visit Diagnoses Not on filedocumented in this encounter Care Teams Purchasing Intern Relationship Specialty Start Date End Date Nataliya Messina MD [address] [place] [address] [address] [place] [address] PCP - General 10/02/11 01/11/22 documented as of this encounter
--- OUTSIDE RECORDS SUMMARY | 2024-01-05 02:47 | XMS_ITS | Encounter Summary ---
Author Organization [facility] Address [facility] [place] [address] Care Team Providers Care Tack Cleaner Name Role Phone Nataliya Messina MD Primary Care Provider [phone] Encounter Details Date Type Department Care Team (Late Contact Info) Description 12/28/2017 Telephone [place] [phone] Cady Petersen Social History Tobacco Use Types [...] AM EDT Appointment Hematology [place] [phone] 01/21/2024 10:[address] [place] [phone] [facility] HEMATOLOGY/[place] [address] 03/28/2024 10:00 AM EDT Office Visit Hematology/Oncology at [address] [address] [facility] DR HEMATOLOGY/[place] [address] [facility] [place] [address] documented as of this encounter Visit Diagnoses Not on filedocumented in this encounter Care Teams Tack Cleaner Relationship Specialty Start Date End Date Nataliya Messina MD [address] [place], [place] [address] PCP - General 10/02/11 01/11/22 documented as of this encounter
--- OUTSIDE RECORDS SUMMARY | 2024-01-05 02:47 | XMS_ITS | Encounter Summary ---
Author Organization [facility] Address [facility] [place] [address] Care Team Providers Care Honey Producer Name Role Phone Nataliya Messina MD Primary Care Provider [phone] Encounter Details Date Type Department Care Team (Late Contact Info) Description 12/28/2017 Telephone [place] [phone] Cady Petersen Social History Tobacco Use Types [...] AM EDT Appointment Hematology [place] [phone] 01/21/2024 10:[address] [place] [phone] Heber Phillips MD [facility] HEMATOLOGY/[place] [address] 03/28/2024 10:00 AM EDT Office Visit Hematology/Oncology at [address] [address] Heber Phillips MD [facility] DR HEMATOLOGY/[place] [address] Isabella Baker APRN [facility] [address] documented as of this encounter Visit Diagnoses Not on filedocumented in this encounter Care Teams Honey Producer Relationship Specialty Start Date End Date Nataliya Messina MD [address] [place], [place] [address] PCP - General 10/02/11 01/11/22 documented as of this encounter
--- OUTSIDE RECORDS SUMMARY | 2024-01-05 02:47 | XMS_ITS | Encounter Summary ---
Author Organization [facility] [place] [address] Care Team Providers Care Lead Die Molder Name Role Phone Nataliya Messina MD Primary Care Provider [phone] Reason for Visit * Reason Onset Date Comments Other 09/27/2017 Study Follow Up Encounter Details Date Type Department Care Team (Late st Contact Info) Description 09/27/2017 Telephone Cardiology at [address] [phone] Kimmie Leyva Other (Study Follow Up) Social History Tobacco Use Types Packs/Day Years [...] encounter Miscellaneous Notes * Telephone Encounter - Sendy Leyva - 09/27/2017 11:35 AM EDT Opened in error * Telephone Encounter - Sendy Leyva - 09/27/2017 11:32 AM EDT Spoke to pt this morning completing Absorb III 3 yr study protocol questionnaires. Pt states no recent changes in health. No current issues. Understands and agrees to F/U phone call in one yr. documented in this encounter Plan of Treatment Upcoming Encounters Date Type Department Care Team (Late st Contact Info) Description 01/10/2024 7:45 AM EDT Appointment Hematology [place] [address] 01/21/2024 10:[address] [place] [address] Heber Phillips MD [facility] DR HEMATOLOGY/[place] [address] 03/28/2024 10:00 AM EDT Office Visit Hematology/Oncology at [address] [address] Heber Phillips MD [facility] DR HEMATOLOGY/[place] [address] Isabella Baker APRN [facility] [place] [address] documented as of this encounter Visit Diagnoses Not on filedocumented in this encounter Care Teams Lead Die Molder Relationship Specialty Start Date End Date Nataliya Messina MD [address] [place] [address] [address] [place], [place] [address] PCP - General 10/02/11 01/11/22 documented as of this encounter
--- OUTSIDE RECORDS SUMMARY | 2024-01-05 02:47 | XMS_ITS | Encounter Summary ---
[place] [address] Care Team Providers Care Dog Daycare Provider Name Role Phone Nataliya Messina MD Primary Care Provider [phone] Reason for Visit * Diagnostic Test (Routine) - Closed Specialty Diagnoses / Procedures Referred By Contac t Referred To Contact Radiology Diagnoses Pre-operative cardiovascular examination, high risk surgery Procedures NM Exercise Stress Myocardial Perfusion Genet Thomas V HOSPITAL SUPER[facility]OR [place] [address] [place] [address] Referral ID Status Reason Start Date Expiration Date V isits Requested Visits Authorized [id number] Closed Specialty Service Requested 12/28/2017 12/28/2018 4 4 Encounter Details Date Type Department Care Team (Late st Contact Info) Description 01/03/2018 9:51 AM EDT Hospital Encounter [place] [address] Genet Thomas V [facility] [place] [address] Discharge Disposition: Home Social History Tobacco Use [...] AM EDT Appointment Hematology [place] [address] 01/21/2024 10:[address] [place] [place] [address] Heber Phillips MD [facility] DR [place]ATOLOGY/[place] [address] 03/28/2024 10:00 AM EDT Office Visit Hematology/Oncology at [address] [phone] Heber Phillips MD [facility] DR HEMATOLOGY/[place] [address] Isabella Baker APRN [facility] [place] [address] documented as of this encounter Procedures Procedure [...] at 01/03/2018 3:09 PM Genet Rivero APRN IMG NM ORDERABL ES documented in this encounter Visit Diagnoses Not on filedocumented in this encounter Care Teams Dog Daycare Provider Relationship Specialty Start Date End Date Nataliya Messina MD [address] [facility] [place] [address] PCP - General 10/02/11 01/11/22 documented as of this encounter
--- OUTSIDE RECORDS SUMMARY | 2024-01-05 02:47 | XMS_ITS | Encounter Summary ---
Author Organization [facility] Address [facility] [address] Care Team Providers Care Mine Boss Name Role Phone Nataliya Messina MD Primary Care Provider [phone] Encounter Details Date Type Department Care Team (Late Contact Info) Description 12/29/2017 Telephone [place] [phone] Cady Petersen Social History Tobacco Use Types [...] AM EDT Appointment Hematology [place] [phone] 01/21/2024 10:[address] [place] [phone] Heber Phillips MD [facility] HEMATOLOGY/[place] [address] 03/28/2024 10:00 AM EDT Office Visit Hematology/Oncology at [address] [address] Heber Phillips MD [facility] DR HEMATOLOGY/[place] [address] Isabella Baker APRN [facility] [place] [address] documented as of this encounter Visit Diagnoses Not on filedocumented in this encounter Care Teams Mine Boss Relationship Specialty Start Date End Date Nataliya Messina MD [address] [place], [place] [address] PCP - General 10/02/11 01/11/22 documented as of this encounter
--- OUTSIDE RECORDS SUMMARY | 2024-01-05 02:47 | XMS_ITS | Encounter Summary ---
Author Organization [facility] [place] [address] Care Team Providers Care Stay Cutter Name Role Phone Nataliya Messina MD Primary Care Provider [phone] Encounter Details Date Type Department Care Team (Latest Contact Info) Description 01/03/2018 2:53 PM EDT - 01/03/2018 11:59 PM EDT Hospital En[place] [phone] Harry Hernandez [place] Mass of right lung; Pre-operative cardiovascular examination, high risk surgery Discharge [...] AM EDT Appointment Hematology [place] [address] 01/21/2024 10:[address] [place] [phone] Heber Phillips MD [facility] HEMATOLOGY/[place] [address] 03/28/2024 10:00 AM EDT Office Visit Hematology/Oncology at [address] [phone] Heber Phillips MD [facility] DR HEMATOLOGY/[place] [address] Isabella Baker APRN [facility] [place] [address] documented as of this encounter Procedures Procedure Name Priority Date/Time Associated Diagnosis Comments CAROTID DUPLEX, BILATERAL Routine 01/03/2018 3:10 PM EDT Mass of right lung Pre-operative cardiovascular examination, high risk surgery documented in this encounter Results * Cerebrovascular Duplex, Bilateral (01/03/2018 3:10 PM EDT) VB Text Report Department: Vascular Surgery Lab Patient: [id number] (BRITTA SAEED) CPT: 87719 ICD10: R91.8;Z01.810 Referring Physician: BALBINA THOMAS ?? Phone: Indications: Hx of R CEA, [...] Report VASCUBASE 01/03/2018 3:10 PM EDT Balbina Thomas V, UNIT MANAGER RN VASCULAR ORDERA BLES VASCUBASE documented in this encounter Visit Diagnoses Diagnosis Mass of right lung Pre-operative cardiovascular examination, high risk surgery Pre-operative cardiovascular examination documented in this encounter Care Teams Stay Cutter Relationship Specialty Start Date End Date Nataliya Messina MD [address] [place] [address] [address] [place] [address] PCP - General 10/02/11 01/11/22 documented as of this encounter
--- OUTSIDE RECORDS SUMMARY | 2024-01-05 02:47 | XMS_ITS | Encounter Summary ---
Author Organization [facility] Address [facility] [place] [address] Care Team Providers Care Airplane Engineer Name Role Phone Nataliya Messina MD Primary Care Provider [phone] Encounter Details Date Type Department Care Team (Late st Contact Info) Description 11/19/2016 1:30 PM EDT [place] [phone] Anshu Maciel MD [facility] [place] [address] CRAO (central retinal artery occlusion), right; Stenosis of carotid artery, unspecified laterality Social History Tobacco Use Types Packs/Day Years [...] Sign Reading Time Taken Comments Blood Pressure 103/55 11/19/2016 1:09 PM EDT Pulse 85 11/19/2016 1:09 PM EDT Temperature - - Respiratory Rate - - Oxygen Saturation - - Inhaled Oxygen Concentration - - Weight 76.6 kg (168 lb 12.8 oz) 11/19/2016 1:09 PM EDT Height 167.6 cm (5' 6) 11/19/2016 1:09 PM EDT r eported Body Mass Index 27.25 11/19/2016 1:09 PM EDT documented in this encounter Progress Notes * Anshu Maciel MD - 11/19/2016 1:30 PM EDT Cerebrovascular Disease and Stroke Program [place] [address] t: [phone] / f: [phone] Date of Appointment: 11/19/2016 Patient: Hieu Tillman This 61 y.o. is re-evaluated because of a right CRAO and carotid stenosis s/p CEA 10/21. Admitted 10/19-10/22 after presenting to [facility] and sent urgently to ophthalmology. Saw her for cataract. Was on SHINE on admission for CAD. He enjoys gardening. The vision in the R eye unchanged. Can see a little on right periphery. Had CUS here 11/17 and discussed numbness of chin with surgeon. Has troubles with depth perception in garden and needs to take a side view. There is no report of symptoms suggestive of recurrent TIA/Stroke. Medications are being taken as prescribed and without adverse symptoms. Has difficulty due to numbness below chin and he avoids using a razor due CEA scar and vibration ofelectric razor drives him crazy. Avoids driving at night and long distances but driving without difficulty otherwise. Modified Richey Scale (MRS) 0: No symptoms at all 1: No significant disability despite symptoms; able to carry out all usual duties and activities 2: Slight disability; unable to carry out all previous activities, but able to look after own affairs without assistance 3: Moderate disability; requiring some help, but able to walk without assistance 4: Moderate disability; unable to walk without assistance and unable to attend to own bodily needs without assistance 5: Severe disability; bedridden, incontinent and requiring constant nursing care and attention 6: Patient Active Problem List Diagnosis Code ??? Low back pain radiating to right leg M54.5 ??? Stenosis of right carotid artery I65.21 ??? PVD (peripheral vascular disease) I73.9 ??? Chest pain R07.9 ??? Hypertension I10 ??? Hyperlipidemia E78.5 ??? Emphysema/COPD J43.9 ??? CAD (coronary artery disease) I25.10 ??? Central artery occlusion of retina H34.10 Allergies Allergen Reactions ??? Contrast [Iodine And Iodide Containing Products] Anaphylaxis and Hives He has tolerated IV dye since with premedication. History of anaphylaxis as well. Outpatient Prescriptions Marked as Taking for the 11/19/16 encounter (Office Visit) with Anshu Maciel MD Medication Sig Dispense Refill ??? tiotropium (SPIRIVA WITH HANDIHALER) 18 mcg Capsule, w/Inhalation Device Inhale 18 mcg into thelungs 2 times daily. ??? acetaminophen (TYLENOL) 325 mg Tablet Take 3 tablets by mouth every 6 hours as needed for Pain.30 tablet 1 ??? carboxymethylcellulose (REFRESH PLUS) 0.5 % Droppe[address] Place 1 drop into both eyes 3 times daily as needed (or eye discomfort). 1 Bottle 0 ??? lisinopril (PRINIVIL;ZESTRIL) 20 mg Tablet Take [...] differently: 2 Puff(s), Inh, Twice daily PRN) Exam: Vitals: 11/19/16 1309 BP: 103/55 Pulse: 85 Well appearing patient, nontoxic. Heart regular. No edema lower extremities. No wheezing or dyspneanoted. No rash, thyromegaly. Mood euthymic. Alert, oriented; attentive; speech fluent/articulate, no dysarthria, paraphasic errors or juana aphasia. No facial weakness. No pronator drift or tremor. Gait normal. Decreased sensation below R mandible. Vitals: 11/19/16 1309 BP: 103/55 BP Location (NB): Right arm Patient Position: Sitting BP Cuff Sizes: Adult (25-34 cm) Pulse: 85 Weight: 76.6 kg (168 lb 12.8 oz) Height: 167.6 cm (5' 6) NIH Stroke Scale score= 0 (monocular vision loss R eye). CFs R upper and lower nielsen centrally. Data reviewed: CUS November 17 normal. Clinical impression and recommendations: Neurologically stable but with residual severe visual loss due to CRAO. To seek f/u ophtho visit locally. Risk factors are being controlled. Follow-up here as needed. I made no medication changes today. I ordered no additional tests. documented in this encounter Plan of Treatment Upcoming Encounters Date Type Department Care Team (Late st Contact Info) Description 01/10/2024 7:45 AM EDT Appointment H[place] [address] 01/21/2024 10:[address] [place] [address] Heber Phillips MD [facility] HEMATOLOGY/[place] [address] 03/28/2024 10:00 AM EDT Office Visit Hematology/Oncology at [address] [address] Heber Phillips MD [facility] DR HEMATOLOGY/[place] [address] Isabella Baker APRN [facility] [place] [address] documented as of this encounter Visit Diagnoses Diagnosis CRAO (central retinal artery occlusion), right Stenosis of carotid artery, unspecified laterality documented in this encounter Care Teams Airplane Engineer Relationship Specialty Start Date End Date Nataliya Messina MD [address] [place] [address] PCP - General 10/02/11 01/11/22 documented as of this encounter
--- OUTSIDE RECORDS SUMMARY | 2024-01-05 02:47 | XMS_ITS | Encounter Summary ---
Author Organization [facility] Address [facility] [place] [address] Care Team Providers Care Game Agent Name Role Phone Nataliya Messina MD Primary Care Provider [phone] Encounter Details Date Type Department Care Team (Late Contact Info) Description 12/29/2017 Telephone [place] [phone] Cady Petersen Social History Tobacco Use Types [...] AM EDT Appointment Hematology [place] [phone] 01/21/2024 10:[address] [place] [phone] Heber Phillips MD [facility] HEMATOLOGY/[place] [address] 03/28/2024 10:00 AM EDT Office Visit Hematology/Oncology at [address] [phone] Heber Phillips MD [facility] DR HEMATOLOGY/[place] [address] Isabella Baker APRN [facility] [place] [address] documented as of this encounter Visit Diagnoses Not on filedocumented in this encounter Care Teams Game Agent Relationship Specialty Start Date End Date Nataliya Messina MD [address] [place], [place] [address] PCP - General 10/02/11 01/11/22 documented as of this encounter
--- OUTSIDE RECORDS SUMMARY | 2024-01-05 02:48 | XMS_ITS | Encounter Summary ---
Author Organization [facility] [place] [address] Care Team Providers Care Tipple Oiler Name Role Phone Nataliya Messina MD Primary Care Provider [phone] Reason for Visit * Auth/Cert Specialty Diagnoses / Procedures Referred By Keven t Referred To Contact Diagnoses Central artery occlusion of retina Central artery occlusion of retina, right right carotid stenosis, symptomatic Procedures @[email or web address], CAROTID, VERTEBRAL,SUBCLAVIAN W\WO PATCH GRAFT (WRVU [id number]) Referral ID Status Reason Start Date Expiration Date Visits Re quested Visits Authorized 1 1 Encounter Details Date Type Department Care Team (Latest Contact Info) Description 10/19/2016 3:13 PM EDT - 10/19/2016 11:59 PM EDT Hospital Encounter [place] [address] [place], [place] Discharge Disposition: Home Social History Tobacco Use Types Packs/Day Years Used Date Smoking Tobacco: Former Cigarettes Q uit: 09/11/2013 Alcohol Use Standard Drinks/Week Comments No 0 (1 standard drink = 0.6 oz pure alcohol) Sober 22 years the summer Sex and Gender Information Value Date Recorded Sex Assigned at Not on file Gender Identity Not on file Sexual Orientation Not on file documented as of this encounter Medications at Time of Discharge Medication Sig Dispensed Refills Start Date End Date lisinopril (PRINIVIL;ZESTRIL) 20 mg Tablet Take 1 [...] tablet Take 81 mg by mouth daily. acetaminophen (TYLENOL) 325 mg Tablet Take 3 [...] call vascular surgery). 20 tablet 10/22/2016 03/03/2018 meTOPROLOL succinate (TOPROL-XL) 50 mg Tablet Sustained Release 24 hr Take 0.5 tablets by mouth daily. 30 tablet 1 04/30/2016 10/22/2016 clopidogrel (PLAVIX) 75 mg tablet Take 1 [...] mg by mouth every other day. 10/12/2023 lisinopril (PRINIVIL;ZESTRIL) 10 mg tablet Take 10 mg by mouth daily. 10/22/2016 albuterol-ipratropium (COMBIVENT) 18-103 mcg/Actuation inhaler 2 Puff(s), Inh, Twice daily 03/09/2006 05/03/2020 documented as of this encounter Plan of Treatment Upcoming Encounters Date Type Department Care Team (Late st Contact Info) Description 01/10/2024 7:45 AM EDT Appointment Hematology [place] [address] 01/21/2024 10:[address] [place] [address] Heber Phillips MD [facility] [address] HEMATOLOGY/[place] [address] 03/28/2024 10:00 AM EDT Office Visit Hematology/Oncology at [address] [phone] Heber Phillips MD [facility] DR HEMATOLOGY/[place] [address] Isabella Baker APRN [facility] [place] [address] documented as of this encounter Visit Diagnoses Not on filedocumented in this encounter Care Teams Tipple Oiler Relationship Specialty Start Date End Date Nataliya Messina MD [address] [place] [address] [address] [facility] [address] [place] [address] PCP - General 10/02/11 01/11/22 documented as of this encounter
--- OUTSIDE RECORDS SUMMARY | 2024-01-05 02:48 | XMS_ITS | Encounter Summary ---
Author Organization [facility] Address [facility] [place] [address] Care Team Providers Care Mushroom Press Operator Name Role Phone Nataliya Messina MD Primary Care Provider [phone] Encounter Details Date Type Department Care Team (Late st Contact Info) Description 08/20/2014 Orders Only Cardiology at [address] [phone] Tara Rock RN CAD (coronary artery disease) Social History Tobacco Use Types Packs/Day [...] AM EDT Appointment Hematology [place] [phone] 01/21/2024 10:[address] [place] [address] Heber Phillips MD [facility] HEMATOLOGY/[place] [address] 03/28/2024 10:00 AM EDT Office Visit Hematology/Oncology at [address] [phone] Heber Phillips MD [facility] DR HEMATOLOGY/[place] [address] Isabella Baker APRN [facility] [place] [place] [address] documented as of this encounter Results * EKG 12 Lead (08/20/2014 10:22 AM EST) Ventricular rate 93 BPM MUSE SYSTEM Atrial Rate 93 BPM MUSE SYSTEM P-R Interval 142 ms MUSE SYSTEM QRS Duration 80 ms MUSE SYSTEM Q-T Interval 354 ms MUSE SYSTEM QTC Calculated (Bezet) 440 ms MUSE SYSTEM Calculated P [place] 71 degrees MUSE SYSTEM Calculated R [place] 72 degrees MUSE SYSTEM Calculated T [place] 84 degrees MUSE SYSTEM INTERPRETATION Normal sinus rhythm Otherwise normal ECG When compared with ECG of 11-OCT-2013 08:27, No significant change was found I personally reviewed the tracing and edited the fellows interpretation Confirmed by fellow Nelly Antunez ([id number]) on 08/20/2014 12:25:28 PM Confirmed by MD CHRISTY, STEVO ([id number]) on 08/20/2014 2:32:29 PM MUSE SYSTEM 08/20/2014 10:2 2 AM EST 08/20/2014 2:32 PM EST Stevo Dalton MD ECG ORDERABLES MUSE SYSTEM documented in this encounter Visit Diagnoses Diagnosis CAD (coronary artery disease) Coronary atherosclerosis of unspecified type of vessel, [place] or graft documented in this encounter Care Teams Mushroom Press Operator Relationship Specialty Start Date End Date Nataliya Messina MD [address] [place] [address] [address] [place], [place] [address] PCP - General 10/02/11 01/11/22 documented as of this encounter
--- OUTSIDE RECORDS SUMMARY | 2024-01-05 02:48 | XMS_ITS | Encounter Summary ---
Author Organization [facility] Address [facility] [place] [address] Care Team Providers Care Rn Field Name Role Phone Nataliya Messina MD Primary Care Provider [phone] Reason for Visit * Reason Comments Carotid Stenosis Circulatory Problem PVD Encounter Details Date Type Department Care Team (Late st Contact Info) Description 10/07/2015 4:00 PM EDT Office Visit [place] [address] Ortega Patrick MD [facility] [place] [address] Bilateral carotid artery stenosis; PVD (peripheral vascular [...] Sign Reading Time Taken Comments Blood Pressure 123/52 10/07/2015 3:36 PM EDT R A RM Pulse 84 10/07/2015 3:36 PM EDT Temperature - - Respiratory Rate 20 10/07/2015 3:36 PM EDT Oxygen Saturation - - Inhaled Oxygen Concentration - - Weight 75.3 kg (166 lb) 10/07/2015 3:36 PM EDT Height 167.6 cm (5' 6) 10/07/2015 3:36 PM EDT Body Mass Index 26.79 10/07/2015 3:36 PM EDT documented in this encounter Progress Notes * Ortega Patrick MD - 10/07/2015 4:23 PM EDT Hieu Tillman is a 60-year-old patient who is seen for follow-up of a right iliac stent that I placedin 2011 for severe claudication and early rest pain. This has resolved his symptoms for the most part, although he has very mild bilateral calf claudication which is stable. He also has left hip painwhich I believe is joint related since he can walk through it with improvement. He has stable and asymptomatic carotid artery disease. Fortunately he stopped smoking 2 years ago after having undergone coronary stenting. He is stable from a cardiac standpoint. Although not very active during the winter he is now walking 2 miles every other day and has started to bicycle. He is now taking his health much more seriously. On examination he has bilateral palpable dorsal pedal pulses, as well as femoral pulses. His NALDO is0.72 bilaterally, which is unchanged. His carotid arteries show no progression in stenosis. Overall he is quite stable with well-controlled risk factors. We will see him for follow-up in 1.5 years but detect no problems at this time. documented in this encounter Plan of Treatment Upcoming Encounters Date Type Department Care Team (Late st Contact Info) Description 01/10/2024 7:45 AM EDT Appointment Hematology [place] [address] 01/21/2024 10:[address] [place] [address] Heber Phillips MD [facility] HEMATOLOGY/[place] [address] 03/28/2024 10:00 AM EDT Office Visit Hematology/Oncology at [address] [phone] Heber Phillips MD [facility] DR HEMATOLOGY/[place] [address] Isabella Baker APRN [facility] [place] [address] documented as of this encounter Visit Diagnoses Diagnosis Bilateral carotid artery stenosis Occlusion and stenosis of multiple and bilateral precerebral arteries without mention of cerebral infarction PVD (peripheral vascular disease) Peripheral vascular disease, unspecified documented in this encounter Care Teams Rn Field Relationship Specialty Start Date End Date Nataliya Messina MD [address] [place] [address] PCP - General 10/02/11 01/11/22 documented as of this encounter
--- OUTSIDE RECORDS SUMMARY | 2024-01-05 02:48 | XMS_ITS | Encounter Summary ---
Author Organization [facility] [address] Care Team Providers Care Fmd Teacher Name Role Phone Nataliya Messina MD Primary Care Provider [phone] Reason for Visit * Auth/Cert Specialty Diagnoses [...] Department Care Team (Latest Contact Info) Description 10/20/2016 2:57 PM EDT - 10/20/2016 11:59 PM EDT Hospital Encounter [place] [address] Harry Hernandez [place] Discharge Disposition: Home Social History Tobacco [...] AM EDT Appointment Hematology [place] [address] 01/21/2024 10:[address] [place] [address] Heber Phillips MD [facility] HEMATOLOGY/[place] [address] 03/28/2024 10:00 AM EDT Office Visit Hematology/Oncology at [address] [phone] Heber Phillips MD [facility] HEMATOLOGY/[place] [address] Isabella Baker APRN [facility] [place] [address] documented as of this encounter Procedures Procedure Name Priority Date/Time Associated Diagnosis Comments BLOOD GAS 2 ARTERIAL Routine 10/20/2016 3:57 PM EDT documented in this encounter Results * (ABNORMAL) BLOOD GAS 2 ARTERIAL (10/20/2016 3:57 PM EDT) pH Art 7.26(Criti avery) 7.35 - 7.45 [facility] Comment:Noted by medical instrument cable fabricator.10/20/16 16:00 pCO2 Art 47(H) 35 - 45 mmHg [facility] pO2 Art 429(H) 85 - 104 mmHg [facility] HCO3 Art 21.0 20.0 - 26.0 mmol/L [facility] BE Art -6.4(L) -3.0 - 3.0 mmol/L [facility] Hgb Blood Gas 13.0(L) 13.7 - 16.5 gm/dL [facility] O2HB Art 98.7(H) 94.0 - 97.0 % [facility] COHB Art 0.8 % [facility] Comment: Nonsmokers: 0.5-1.5% COHB Smokers: Variable, but usually less than 10% Toxic: 20-30% COHB Lethal: Greater than 60% COHB METHB Art 0.3 <=1.5 % [facility] Na Whole Blood 137 135 - 145 mmol/L [facility] K Whole Blood 3.9 3.5 - 5.0 mmol/L [facility] Comment: Please note: Patients with WBC >100,000 may have falsely elevated Potassium levels. Contact the Clinical Chemistry Laboratory if there are any questions. ICa Whole Blood 1.25 1.15 - 1.33 mmol/L [facility] Comment: Note: ??Total bilirubin higher than 20 mg/dL may lead to falsely low ionized calcium. CL Whole Blood 106 98 - 107 mmol/L [facility] Gluc Whole Bld 95 65 - 199 mg/dL [facility] Comment:Diabetes: >=200 mg/d L plus symptoms. Lactate WB 1.1 0.5 - 2.2 mmol/L [facility] Blood specimen (specimen) Arterial Draw / Unknown 10/20/2016 3:57 PM EDT 10/20/2016 4:00 PM EDT Narrative Resulting Agency Comment Spec In Lab Maritza Thayer MD CHEMISTRY ORDERABL ES [facility] [place] [address] documented in this encounter Visit Diagnoses Not on filedocumented in this encounter Care Teams Fmd Teacher Relationship Specialty Start Date End Date Nataliya Messina MD [address] [place] [address] PCP - General 10/02/11 01/11/22 documented as of this encounter
--- OUTSIDE RECORDS SUMMARY | 2024-01-05 02:48 | XMS_ITS | Encounter Summary ---
Author Organization [facility] [place] [address] Care Team Providers Care Research Tech Name Role Phone Nataliya Messina MD Primary Care Provider [phone] Encounter Details Date Type Department Care Team (Late st Contact Info) Description 09/01/2016 Telephone Cardiology at [address] [phone] Chely Mitchell Social History Tobacco Use Types Packs/Day Years [...] encounter Miscellaneous Notes * Telephone Encounter - Chely Mitchell - 09/01/2016 2:12 PM EDT Phoned the patient and completed the ABSORB III questionnaire per protocol. Subject denied any issues or concerns and agreed to a follow up. Chely Mitchell documented in this encounter Plan of Treatment Upcoming Encounters Date Type Department Care Team (Late st Contact Info) Description 01/10/2024 7:45 AM EDT Appointment H[place]ology [place] [phone] 01/21/2024 10:[address] [place] [place] [address] Heber Phillips MD [facility] DR HEMATOLOGY/[place] [address] 03/28/2024 10:00 AM EDT Office Visit Hematology/Oncology at [address] [address] Heber Phillips MD [facility] HEMATOLOGY/[place] [address] Isabella Baker APRN [facility] [place] [place] [address] documented as of this encounter Visit Diagnoses Not on filedocumented in this encounter Care Teams Research Tech Relationship Specialty Start Date End Date Nataliya Messina MD [address] [place] [address] PCP - General 10/02/11 01/11/22 documented as of this encounter
--- OUTSIDE RECORDS SUMMARY | 2024-01-05 02:48 | XMS_ITS | Encounter Summary ---
Author Organization [facility] Address [facility] [place] [address] Care Team Providers Care Light Rail Operator Name Role Phone Nataliya Messina MD Primary Care Provider [phone] Reason for Visit * Reason Comments Carotid Stenosis Encounter Details Date Type Department Care Team (Late st Contact Info) Description 10/15/2014 2:00 PM EDT Follow-[place] [phone] Kristan Patrick MD [facility] [place] [address] PVD (peripheral vascular disease); Carotid stenosis, unspecified laterality Discharge Disposition: Home Social History Tobacco Use [...] Sign Reading Time Taken Comments Blood Pressure 139/64 10/15/2014 1:35 PM EDT Pulse 79 10/15/2014 1:35 PM EDT Temperature - - Respiratory Rate 20 10/15/2014 1:35 PM EDT Oxygen Saturation - - Inhaled Oxygen Concentration - - Weight 73.9 kg (163 lb) 10/15/2014 1:35 PM EDT Height 167.6 cm (5' 6) 10/15/2014 1:35 PM EDT Body Mass Index 26.31 10/15/2014 1:35 PM EDT documented in this encounter Patient Instructions * Patient Instructions* Kristan Patrick MD - 10/15/2014 4:25 PM EDT We suggested potential orthopedic evaluation for your hip pain. Your arterial disease is mild, and can be improved by continued walking. We will recheck your legs in one year. documented in this encounter Progress Notes * Lin Rivers MD - 10/15/2014 1:42 PM EDT Reason for visit: H/o RLE claudication Interval history: 59 y/o male with CAD (s/p stenting of L circumflex) and PAD. Mr. Saeed had a right JAYA stent placed in 2011 for occluded R JAYA causing claudication. His R NALDO following that intervention increased from0.2 to 0.6. On angiography in 2011, the right external artery was of small caliber. There was a possible stenosis in the proximalSFA. He had three vessel outflow to the foot. Mr. Saeed now presents with a chief complaint of bilateral hip pain after walking 1/8 mile. The pain is not located in the buttocks or thigh muscles but seems to involve the hip joint. This pain resolves with further ambulation. He does also note cramping right calf pain after walking much further. The calf pain becomes worse with ambulation and forces the pt to stop and rest. The pt is also followed for stable carotid disease. No h/o neurologic symptoms. Denies every havingany change in vision, motor weakness, or sensory deficits. He takes ASA/plavix. He quit smoking in August,. Prior vascular history: 12/07/11- R JAYA stenting - Sheath access in Right groin (6 Fr) - Right common iliac artery occlusion crossed with glide wire and NTA catheter. - Aortogram demonstrated small infrarenal aortic aneurysm, patent left common iliac and external iliac arteries with possible stenosis in distal JAYA, and occluded proximal right common iliac artery approximately 10 mm beyond the bifurcation. - Successful deployment of right self-expanding common iliac stent (Epic 9 x 40) with post-dilation using 8mm balloon. Completion angiogram demonstrated excellent stent expansion with patent flow and no residual stenosis in right common iliac artery. In addition, the right hypogastric and right external iliac arteries were patent although the external iliac appeared small and atretic likely from chronic underfilling. - Right leg angiogram via sheath demonstrated a small right common femoral artery with delayed filling of the profunda femoris . The right superficial femoral artery was also small but normal appearing and patent. The above and below-knee popliteal, tibioperoneal trunk, anterior tibial, posterior tibial and peroneal arteries all appeared to be normal and patent. The distal peroneal was diminutive and the PT/AT provided 2-vessel inflow to the foot. Physical Exam: Temp: -- Heart Rate: [79] Resp: [20] BP: (139)/(64) SpO2: -- General: NAD, resting comfortably HEENT: PERRL, anicteric sclerae CVS: Regular rate, no murmurs rubs or gallops Pulm: Clear bilaterally Abd: soft, non tender, non distended Ext: RLE- femoral pulse palpable but subjectively weak, DP/PT not palpable, foot somewhat cool, no tissue loss LLE- femoral pulse palpable and stronger when compared with right, DP/PT weakly palpable Neuro: CN 2-12 grossly intact, nonfocal, moving all extremities. Sensation intact in extremities bilaterally symmetric. Motor function intact in extremities, bilaterally symmetric. Vascular: R L Carotid 2/2 bruit (-) 2/2 bruit (-) Radial 2/2 2/2 Femoral 1/2 2/2 DP 0/2 1/2 PT 0/2 1/2 Studies: NALDO, 10/15 Findings: Right Pressure (mm Hg) NALDO Waveform Dorsalis Pedis (Ankle) Artery 78 0.59 Biphasic Posterior Tibial (Ankle) Artery 93 0.70 Biphasic Left Pressure (mm Hg) NALDO Waveform Dorsalis Pedis (Ankle) Artery 95 0.72 [place]-Biphasic Posterior Tibial (Ankle) Artery 94 0.71 Biphasic Interpretation: RIGHT: Moderate lower extremity arterial occlusive disease. No significant change compared to previous exam performed on 02/20/2014. LEFT: Mild lower extremity arterial occlusive disease. No significant change compared to previous exam performed on 02/20/2014. Previous ABIs with change from previous value: Date RIGHT DP RIGHT PT RT GR TOE LEFT DP LEFT PT LT GR TOE 0.22 0.21 ---- 0.67 0.69 ---- 0.63(+.41) 0.56(+.35) ---- 0.65(-.02) 0.63(-.06) ---- 0.59(-.04) 0.60(+.04) ---- 0.61(-.04) 0.61(-.02) ---- 0.64(+.05) 0.76(+.16) ---- 0.70(+.09) 0.75(+.14) ---- Current 0.59(-.05) 0.70(-.06) ---- 0.72(+.02) 0.71(-.04) ---- 10/15 carotid duplex Interpretation: RIGHT: There is irregular plaque in the common carotid artery causing 30-35% stenosis by electronic calipers. There is irregular mixed echogenic plaque in the proximal internal carotid artery causing 50-79 % stenosis when compared to the more distal internal carotid artery. The bifurcation level is in the mid neck. No significant change compared to previous exam performed on 02/20/2014. LEFT: A thin layer of circumferential plaque is present in the common carotid artery causing minimal stenosis. There is irregular mixed echogenic plaque in the proximal internal carotid artery causing 16-49% stenosis when compared to the more distal internal carotid artery. The bifurcation level is in the mid neck. No significant change compared to previous exam performed on 02/20/2014. Vertebral Artery Data: Patent vertebral arteries with normal antegrade Doppler waveforms and velocities bilaterally. Previous Carotid Studies: Date RIGHT ICA Stenosis PSV Ratio LEFT ICA Stenosis PSV Ratio 50-69% 309 3.15 16-49% 142 1.39 50-79% 352 4.57 16-49% 122 1.45 50-79% 349 3.93 16-49% 118 1.42 Current Exam 50-79% 384 4.13 16-49% 99 1.09 Assessment/Plan: 59 y/o male with CAD and PAD, s/p R JAYA stent in 2011 for occluded R JAYA. Now presents with bilateral hip pain and R calf aching with ambulation. Hip pain is unlikely due to a vascular problem as thepain reported improves with walking and is associated with joint rather than muscle pain. Recommendpt see his PCP for hip xrays, he likely has some component of osteoarthritis contributing to this discomfort. The R calf pain reported is likely due to stenosis in the iliac system. External iliac in 2011 was of small caliber and the distal SFA had some narrowing, though at that time the pt had good outflow with 3 vessel flow to the foot. NALDO's stable at 0.6-0.7. Per Mr. Saeed the bilateral hip pain is aggravating him most. He is not hindered significantly by theR calf claudication. Therefore we recommend Mr. Saeed continue to walk as he typically does in the summer months and see his PCP for workup for hip arthritis. Should his claudication symptoms worsen the pt would require a CTA to evaluate the arterial supply to his lower extremities. He may eventuallyrequire a R common femoral endarterectomy and possible iliac stenting, but at thus point we would need better imaging before proceeding with an intervention. Pt seen and discussed with Dr. Patrick Vascular Staff: Pt seen, examined, studies reviewed. I agree with above note and plan. Kristan Rivers MD/KAYY, Pager [phone] Section of Vascular Surgery, PGY1 documented in this encounter Plan of Treatment Upcoming Encounters Date Type Department Care Team (Late st Contact Info) Description 01/10/2024 7:45 AM EDT Appointment [place] [address] 01/21/2024 10:[address] [place] [place] [address] Heber Phillips MD [facility] HEMATOLOGY/[place] [address] 03/28/2024 10:00 AM EDT Office Visit Hematology/Oncology at [address] [address] Heber Phillips MD [facility] DR HEMATOLOGY/[place] [address] Isabella Baker APRN [facility] [place] [address] documented as of this encounter Results * NALDO, legs, multiple levels (10/07/2015 2:39 PM EDT) Pathologist [facility] VB Text Report Department: Vascular Surgery Lab Patient: [id number] (BRITTA SAEED) CPT: 59618 ICD10: I73.9 Referring Physician: KRISTAN PATRICK ?? Indications: ??F/U PAD, ? interval change Diabetes mellitus: No ICD10 Diagnosis Code: I73.9 Findings: Right ?Pressure (mm Hg) ?? NALDO ??Waveform ? Brachial Artery ?120 ? Dorsalis Pedis (Ankle) Artery ?77 ?0.63 ??[place]-Biphasi c ?? Posterior Tibial (Ankle) Artery ??88 ?0.72 ??[place]-Biphasi c ?? Left ? Pressure (mm Hg) ?? NALDO ??Waveform ? Brachial Artery ?123 ? Dorsalis Pedis (Ankle) Artery ?79 ?0.64 ??[place]-Biphasi c ?? Posterior Tibial (Ankle) Artery ??90 ?0.73 ??[place]-Biphasi c ?? Interpretation : RIGHT: Mild to moderate lower extremity arterial occlusive disease. No significant change from previous exam. LEFT: Mild to moderate lower extremity arterial occlusive disease. No significant change from previous exam. Previous ABIs with change from previous value: Date ?RIGHT DP ?? RIGHT PT ?? RT GR TOE ??LEFT DP ?LEFT PT ?LT GR TOE ??0.22 ? 0.21 ? ---- ? 0.67 ? 0.69 ? ---- ??0.63(+.41) 0.56(+.35) ---- ? 0.65(-.02) 0.63(-.06) ---- ??0.59(-.04) 0.60(+.04) ---- ? 0.61(-.04) 0.61(-.02) ---- ??0.64(+.05) 0.76(+.16) ---- ? 0.70(+.09) 0.75(+.14) ---- ??0.59(-.05) 0.70(-.06) ---- ? 0.72(+.02) 0.71(-.04) ---- Current ? 0.63(+.04) 0.72(+.02) ---- ? 0.64(-.08) 0.73(+.02) ---- Electronically Signed by: KRISTAN PATRICK on 2015-10-07 04:26:56 PM [facility] VB Text Report End of Report [facility] 10/07/2015 2:39 PM EDT Kristan Patrick MD VASCULAR ORDERABLES [facility]AS[facility] * Cerebrovascular Duplex, Bilateral (10/07/2015 2:39 PM EDT) VB Text Report Department: Vascular Surgery Lab Patient: [id number] (BRITTA SAEED) CPT: 50395 ICD10: I65.29 Referring Physician: KRISTAN PATRICK ?? Indications: Carotid disease, ? progression ICD10 Diagnosis Code: I65.29 Findings: ICA Proximal, Right ? PSV (cm/s): 352 ? EDV (cm/s): 88 ? ICA/CCA: 3.4 ? Plaque Structure: Mixed Echolucent ? Plaque Surface: Irregular ? %Stenosis: 50-79% ICA Middle, Right ? PSV (cm/s): 91 ? EDV (cm/s): 28 ? ICA/CCA: 0.9 ICA Distal, Right ? PSV (cm/s): 69 ? EDV (cm/s): 25 ? ICA/CCA: 0.7 CCA Distal, Right ? PSV (cm/s): 104 ? EDV (cm/s): 20 ? %Stenosis: <50% CCA Proximal, Right ? PSV (cm/s): 114 ? EDV (cm/s): 20 External Carotid Artery, Right ? PSV (cm/s): 219 ? EDV (cm/s): 25 ? %Stenosis: >50% Vertebral, Right ? PSV (cm/s): 96 ? EDV (cm/s): 25 ? Direction of Flow: Antegrade ICA Proximal, Left ? PSV (cm/s): 102 ? EDV (cm/s): 25 ? ICA/CCA: 1.1 ? Plaque Structure: Echogenic ? Plaque Surface: Irregular ? %Stenosis: 16-49% ICA Middle, Left ? PSV (cm/s): 99 ? EDV (cm/s): 25 ? ICA/CCA: 1.1 ICA Distal, Left ? PSV (cm/s): 76 ? EDV (cm/s): 22 ? ICA/CCA: 0.8 CCA Distal, Left ? PSV (cm/s): 90 ? EDV (cm/s): 19 ? %Stenosis: Minimal CCA Proximal, Left ? PSV (cm/s): 122 ? EDV (cm/s): 26 External Carotid Artery, Left ? PSV (cm/s): 115 ? EDV (cm/s): 12 ? %Stenosis: <50% Vertebral, Left ? PSV (cm/s): 53 ? EDV (cm/s): 17 ? Direction of Flow: Antegrade Interpretation: RIGHT: Smooth plaque is present in the mid to distal common carotid artery causing 20-30% stenosis by e-calipers. There is bulky irregular plaque in the proximal internal carotid artery causing 50-79% stenosis when compared to the more distal internal carotid artery. >50% ECA stenosis. No significant change from previous exam. The bifurcation level is in the mid neck. LEFT: There is smooth and irregular plaque in the proximal internal carotid artery causing 16-49% stenosis when compared to the more distal internal carotid artery. No significant change from previous exam. The bifurcation level is in the mid neck. Vertebral Artery Data: Patent vertebral arteries with normal antegrade Doppler waveforms and velocities bilaterally. Previous Carotid Studies: Date ?RIGHT ICA Stenosis ??PSV ?? Ratio ?? LEFT ICA Stenosis ?? PSV ?? Ratio ? 50-69% ? 309 ?? 3.15 ? 16-49% ? 142 ?? 1.39 ? 50-79% ? 352 ?? 4.57 ? 16-49% ? 122 ?? 1.45 ? 50-79% ? 349 ?? 3.93 ? 16-49% ? 118 ?? 1.42 ? 50-79% ? 384 ?? 4.13 ? 16-49% ? 99 ?1.09 Current Exam ? 50-79% ? 352 ?? 3.38 ? 16-49% ? 102 ?? 1.13 Electronically Signed by: KRISTAN PATRICK on 2015-10-07 04:26:50 PM [facility] VB Text Report End of Report [facility] 10/07/2015 2:39 PM EDT Kristan Patrick MD VASCULAR ORDERABLES Performing Organization Address City/State/[facility] Co de Phone Number [facility] documented in this encounter Visit Diagnoses Diagnosis PVD (peripheral vascular disease) Peripheral vascular disease, unspecified Carotid stenosis, unspecified laterality documented in this encounter Care Teams Light Rail Operator Relationship Specialty Start Date End Date Nataliya Messina MD [address] [place] [address] PCP - General 10/02/11 01/11/22 documented as of this encounter
--- OUTSIDE RECORDS SUMMARY | 2024-01-05 02:48 | XMS_ITS | Encounter Summary ---
Author Organization [facility] [address] Care Team Providers Care Industrial Technician Name Role Phone Nataliya Messina MD Primary Care Provider [phone] Encounter Details Date Type Department Care Team (Latest Contact Info) Description 10/07/2015 2:08 PM EDT - 10/07/2015 11:59 PM EDT Hospital En[place] [address] Vianca Castillo [place] Stenosis of carotid artery; PVD (peripheral vascular disease) Discharge Disposition: Home Social History Tobacco Use [...] Sig Dispensed Refills Start Date End Date atorvastatin (LIPITOR) 80 mg tablet Take 1 tablet by mouth daily. 30 tablet 2 09/13/2013 FIBER CHOICE ORAL Take 1 tablet by mouth daily. aspirin 81 mg EC tablet Take 81 mg by mouth daily. budesonide-formoterol (SYMBICORT) 160-4.5 mcg/actuation HFA Aerosol Inhaler Inhale into the lungs 4 times daily. 10/19/2016 metoprolol succinate (TOPROL-XL) 50 mg 24 hr tablet Take 1 tablet by mouth daily. 30 tablet 1 10/11/2013 04/30/2016 clopidogrel (PLAVIX) 75 mg tablet Take 1 [...] AM EDT Appointment Hematology [place] [address] 01/21/2024 10:[address] [place] [address] Heber Phillips MD [facility] HEMATOLOGY/[place] [address] 03/28/2024 10:00 AM EDT Office Visit Hematology/Oncology at [address] [address] Heber Phillips MD [facility] HEMATOLOGY/[place] [address] Isabella Baker APRN [facility] [place] [place] [address] documented as of this encounter Procedures Procedure Name Priority Date/Time Associated Diagnosis Comments NALDO, LEGS, MULTIPLE LEVELS Routine 10/07/2015 2:39 PM EDT PVD (peripheral vascular disease) CAROTID DUPLEX, BILATERAL Routine 10/07/2015 2:39 PM EDT Stenosis of carotid artery documented in this encounter Results * NALDO, legs, multiple levels (10/07/2015 2:39 PM EDT) Pathologist [facility] VB Text Report Department: Vascular Surgery Lab Patient: [id number] (BRITTA SAEED) CPT: 62101 ICD10: I73.9 Referring Physician: KRISTAN PATRICK ?? Indications: ??F/U PAD, ? interval change Diabetes mellitus: No ICD10 Diagnosis Code: I73.9 Findings: Right ?Pressure (mm Hg) ?? NALDO ??Waveform ? Brachial Artery ?120 ? Dorsalis Pedis (Ankle) Artery ?77 ?0.63 ??[place]-Biphasi c ?? Posterior Tibial (Ankle) Artery ??88 ?0.72 ??[place]-Biphasi c ?? Left ? Pressure (mm Hg) ?? NALDO ??Waveform ? Brachial Artery ?123 ? Dorsalis Pedis (Ankle) Artery ?79 ?0.64 ??[place]-Biphasi c ?? Posterior Tibial (Ankle) Artery ??90 ?0.73 ??[place]-Biphasi c ?? Interpretation : RIGHT: Mild to [...] PM EDT Kristan Patrick MD VASCULAR ORDERABLES [facility] * Cerebrovascular Duplex, Bilateral (10/07/2015 2:39 PM EDT) VB Text Report Department: Vascular Surgery Lab Patient: [id number] (BRITTA SAEED) CPT: 84611 ICD10: I65.29 Referring Physician: KRISTAN PATRICK ?? [...] PM EDT Kristan Patrick MD VASCULAR ORDERABLES [facility] documented in this encounter Visit Diagnoses Diagnosis Stenosis of carotid artery Occlusion and stenosis of carotid artery without mention of cerebral infarction PVD (peripheral vascular disease) Peripheral vascular disease, unspecified documented in this encounter Care Teams Industrial Technician Relationship Specialty Start Date End Date Nataliya Messina MD [address] [place] [address] [address] [facility] [address] [place] [address] PCP - General 10/02/11 01/11/22 documented as of this encounter
--- OUTSIDE RECORDS SUMMARY | 2024-01-05 02:48 | XMS_ITS | Encounter Summary ---
Author Organization [facility] Address [facility] [place] [address] Care Team Providers Care Gearcase Assembler Name Role Phone Nataliya Messina MD Primary Care Provider [phone] Encounter Details Date Type Department Care Team (Late Contact Info) Description 04/28/2016 External Results Cardiology at [address] [address] Toña Sanders RN Social History Tobacco Use Types Packs/Day [...] AM EDT Appointment Hematology [place] [address] 01/21/2024 10:[address] [place] [address] Heber Phillips MD [facility] HEMATOLOGY/[place] [address] 03/28/2024 10:00 AM EDT Office Visit Hematology/Oncology at [address] [address] Heber Phillips MD [facility] DR HEMATOLOGY/[place] [address] Isabella Baker APRN [facility] [place] [address] documented as of this encounter Procedures Procedure Name Priority Date/Time Associated Diagnosis Comments EXTERNAL LIPID LAB RESULTS PANEL Routine 02/05/2016 documented in this encounter Results * Lipid External Results (02/05/2016) Chol, Total 145 mg/dL HDL 36 md/dL LDL Cholesterol 90 mg/dL Triglycerides 129 mg/dL Historical Provider POINT OF CARE TABBY T ORDERABLES documented in this encounter Visit Diagnoses Not on filedocumented in this encounter Care Teams Gearcase Assembler Relationship Specialty Start Date End Date Nataliya Messina MD [address] [place] [address] PCP - General 10/02/11 01/11/22 documented as of this encounter
--- OUTSIDE RECORDS SUMMARY | 2024-01-05 02:48 | XMS_ITS | Encounter Summary ---
[place] [address] Care Team Providers Care Regional Account Director Name Role Phone Nataliya Messina MD Primary Care Provider [phone] Encounter Details Date Type Department Care Team (Late st Contact Info) Description 05/11/2016 Telephone Cardiology at [address] [address] Lauri Winn Jr., MD [address] [place], [place] [id number] Social History Tobacco Use Types Packs/Day Years [...] * Telephone Encounter - Lisa Howard - 05/12/2016 9:41 AM EST appt scheduled 05/20/17 9 am Pt informed * Telephone Encounter - Ann Gifford RN - 05/12/2016 9:09 AM EST Called and gave him results. * Telephone Encounter - Lauri Winn Jr., MD - 05/11/2016 4:26 PM EST MIBI- no ischemia, fair exercise tolerance Dyspnea from lungs Stay on lower dose metoprolol- safe to exercise Follow up 1 year documented in this encounter Plan of Treatment Upcoming Encounters Date Type Department Care Team (Late st Contact Info) Description 01/10/2024 7:45 AM EDT Appointment Hematology [place] [address] 01/21/2024 10:[address] [place] [address] Heber Phillips MD [facility] DR HEMATOLOGY/[place] [address] 03/28/2024 10:00 AM EDT Office Visit Hematology/Oncology at [address] [phone] Heber Phillips MD [facility] DR HEMATOLOGY/[place] [address] Isabella Baker APRN [facility] [place] [address] documented as of this encounter Visit Diagnoses Not on filedocumented in this encounter Care Teams Regional Account Director Relationship Specialty Start Date End Date Nataliya Messina MD [address] [place] [address] [address] [place], [place] [id number] PCP - General 10/02/11 01/11/22 documented as of this encounter
--- OUTSIDE RECORDS SUMMARY | 2024-01-05 02:48 | XMS_ITS | Encounter Summary ---
Author Organization [facility] Address [facility] [place] [address] Care Team Providers Care Packing Inspector Name Role Phone Nataliya Messina MD Primary Care Provider [phone] Encounter Details Date Type Department Care Team (Late Contact Info) Description 01/01/2015 External Results Cardiology at [address] [address] Toña Sanders RN Social History [...] AM EDT Appointment Hematology [place] [address] 01/21/2024 10:[address] [place] [phone] Heber Phillips MD [facility] HEMATOLOGY/[place] [address] 03/28/2024 10:00 AM EDT Office Visit Hematology/Oncology at [address] [address] Heber Phillips MD [facility] DR HEMATOLOGY/[place] [address] Isabella Baker APRN [facility] [place] [address] documented as of this encounter Procedures Procedure Name Priority Date/Time Associated Diagnosis Comments EXTERNAL LIPID LAB RESULTS PANEL Routine 07/10/2014 documented in this encounter Results * Lipid External Results (07/10/2014) Chol, Total 132 mg/dL HDL 33 md/dL LDL Cholesterol 76 mg/dL Triglycerides 145 mg/dL Historical Provider POINT OF CARE TABBY T ORDERABLES documented in this encounter Visit Diagnoses Not on filedocumented in this encounter Care Teams Packing Inspector Relationship Specialty Start Date End Date Nataliya Messina MD [address] [place] [address] PCP - General 10/02/11 01/11/22 documented as of this encounter
--- OUTSIDE RECORDS SUMMARY | 2024-01-05 02:48 | XMS_ITS | Encounter Summary ---
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 Pulm: IS, pulm toilet, combivent, dulera FEN/GI: Regular diet, PPI, NBOs, zofran PRN Renal: Monitor UOP Heme: ASA, plavix (coronary stents in 2013) Endo: AMPARO ID: post-op [email or web address] complete Tubes/Lines/Drains: PIVs Prophylaxis: Ambulatory Dispo: Floor Enedelia balbuena [id number] 10/21/2016 7:47 AM * Cassia Howell MD - 10/21/2016 7:21 AM EDT Neurology Progress Note Patient Name: Hieu Tillman Admit Date: 10/19/2016 Primary Attending: Lise Segura MD Patient ID: Hieu Tillman is a 61 y.o. right handed with a PMH of CAD (s/p stent x1, 2013), HTN, HLD, COPD/Emphysema, carotid stenosis, PVD (R JAYA stent 12/07/11) who presents today after being diagnosed with a right central retinal artery occlusion. Interval History: R CEA with vascular surgery No acute events overnight. Vitals: stable New data: none Labs: none new This AM notes his vision is about the same and he has some aching of his right eye. Denies any headache. Had trouble sleeping overnight due to his roommate. Medications: Scheduled Meds: Continuous Infusions: PRN Meds:. Physical Exam: Vitals: Temp: [36.1 ??C (97 ??F)-36.7 ??C (98.1 ??F)] Heart Rate: [66-106] Resp: [12-24] BP: (118-130)/(56-82) SpO2: [92 %-99 %] Heart Rate from SPO2: [63 bpm-104 bpm] Gen: Patient of apparent stated age, well nourished, well developed, awake, alert, NAD Neck: Supple, no meningismus, right bandage with serosanguinous bandage CV: + S1, S2, RRR, no murmur Resp: CTA B/L Abd: +normoactive bowel sounds, soft, nontender, nondistended Ext: No edema. No bony deformity Neuro Exam: MS: AAOx4, clear language, no dysarthria, follows commands CN: EOMI, right medial hemianopsia, Right RAPD Facial sensation intact, R ptosis Hearing intact to voice Palate elevates symmetrically, tongue protrudes midline SCM and trap strength intact Motor: Normal bulk and tone. UE: 5/5 R, 5/5 L Arm abduction at shoulder 5/5 R, 5/5 L Elbow extension 5/5 R, 5/5 L Elbow flexion 5/5 R, 5/5 L Wafer Polishing Lead Worker LE: 5/5 R, 5/5 L Hip flexion 5/5 R, 5/5 L Knee extension 5/5 R, 5/5 L Knee flexion 5/5 R, 5/5 L Foot dorsiflexion 5/5 R, 5/5 L Foot plantar flexion Sensation: Intact to light touch throughout Reflexes: Did not assess Coordination: Finger to nose intact, no dysmetria No tremor Gait: Did not assess Labs: Recent Results (from the past 24 hour(s)) BLOOD GAS 2 ARTERIAL Result Value Ref Range pH Art 7.26 (CRIT) 7.35 - 7.45 pCO2 Art 47 (H) 35 - 45 mmHg pO2 Art 429 (H) 85 - 104 mmHg HCO3 Art 21.0 20.0 - 26.0 mmol/L BE Art -6.4 (L) -3.0 - 3.0 mmol/L Hgb Blood Gas 13.0 (L) 13.7 - 16.5 gm/dL O2HB Art 98.7 (H) 94.0 - 97.0 % COHB Art 0.8 % METHB Art 0.3 <=1.5 % Na Whole Blood 137 135 - 145 mmol/L K Whole Blood 3.9 3.5 - 5.0 mmol/L ICa Whole Blood 1.25 1.15 - 1.33 mmol/L CL Whole Blood 106 98 - 107 mmol/L Gluc Whole Bld 95 65 - 199 mg/dL Lactate WB 1.1 0.5 - 2.2 mmol/L Diagnostic Tests and Imaging: ESR 18 CT Head 10/19/16: no intracranial infarction or hemorrhage MRI Brain 10/19/16: negative MRA Brain 10/19/16: IMPRESSION Severe stenosis of the proximal right cervical internal carotid. Assessment / Recommendations: Hieu Tillman is a 61 y.o. right handed with a PMH of CAD (s/p stent x1, 2013), HTN, HLD, COPD/Emphysema, carotid stenosis, PVD (R JAYA stent 12/07/11) who presents today after being diagnosed with a right central retinal artery occlusion. His last known well was at 9:30 PM on 10/18. He was acutely evaluated by ophthalmology this AM and was diagnosed with a right central retinal artery occlusion. He is currently on aspirin and plavix (due to CAD and stents) and has been taking them regularly. He hasa known history of carotid disease and has been monitored annually with a carotid US. His CUS here showed worsening R ICA stenosis. Vascular surgery was consulted and patient underwent a R CEA on 10/20 without any complications. Overall he is doing well post-operatively. ?? #Right central retinal occlusion -Admit to neurology, floor level of care -Neuro check & vitals Q4hrs / Q4hrs -Permissive HTN, treat SBP >220 with prn labetalol, enalaprilat -Check CBC, BMP, LFT, lipid profile, HbA1c, Mg, Phos, UA -cont statin: atorvastatin 80 mg daily -cont home aspirin 81 mg daily -cont home plavix 75 mg daily -TTE -12 lead EKG -Telemetry -CUS -MRI brain wo contrast, MRA head/neck -PT/OT/MACHINE BOBBIN WINDER -follow up with ophthalmology-retinal specialist in 3 months -R CEA with vascular neurology (10/20/16) ?? #Other -COPD: cont Breo, combivent -CHF: cont home metoprolol XL 25 mg daily, cont home HCTZ 25 mg daily -HTN: cont lisinopril 10 mg daily -GERD: cont home pantoprazole 40 mg daily ?? # Prophylaxis -Lovenox 40mg SC daily -RBOs -SCDs ?? # Supportive care -Cardiac diet -Tylenol PRN -Up with assistance ?? # FULL code ?? Cassia Howell MD Neurology Resident Vascular Neurology [id number] Associated attestation - Anshu Michaud MD - 10/21/2016 11:20 PM EDT Neurology Staff Note I have reviewed the resident's history during the visit and I agree with the details as written. Myphysical examination confirms the resident's findings. The assessment and plan were formulated in discussion with me at the time of the visit and I agree with them as documented. He was doing well this AM. Agree with plans to monitor BP. No new suggestions. * Bi Chamberlain MD - 10/20/2016 11:10 PM EDT Vascular Surgery Post Op Check Hieu Tillman is a 61 y.o. male status post right carotid endarterectomy. S: Mr. Tillman is doing well postoperatively. He endorses a minor right sided headache, improved with Tylenol. Complains about presence of colin. Tolerating diet. Denies nausea, vomiting, chest pain, SOB, difficulty breathing, or trouble swallowing. O: Temp: [36.3 ??C (97.3 ??F)-36.7 ??C (98.1 ??F)] Heart Rate: [78-106] Resp: [12-24] BP: (120-153)/(56-81) SpO2: [89 %-96 %] Heart Rate from SPO2: [78 bpm-104 bpm] I/O last 3 completed shifts: In: 3015 [P.O.:490; I.V.:2525] Out: 901 [Urine:901] I/O this shift: In: - Out: 575 [Urine:575] UOP since OR: 575 ml Physical Exam General: Sitting upright in bed, in NAD, resting comfortably, answering questions appropriately. HEENT: NC/AT. Decreased area of vision to right sided visual nielsen. Surgical dressing to right neck with saturation of deep gauze (superficial gauze clean and dry). Moderate amount of swelling to right neck, soft and compressible. CVS: Regular rate. Pulm: Normal respiratory effort on 2L NC. Neuro: CN 2-12 grossly intact, non-focal, moving all extremities purposefully. A/P: Hieu Tillman is a 61 y.o. male status post right carotid endarterectomy, currently in stable condition and recovering well. - Continue to monitor surgical site for hematoma formation. - Watch for worsening headache. - Colin removal at midnight. - SBP goal 90-150 mmHg. * Mary Frederick RN - 10/20/2016 8:52 PM EDT Report received from Dante ROJAS, care assumed. Pt resting quietly in bed, eyes closed, NAD. 1929: Family at bedside. 1954: A-line d/c'd by Mary ROJSA. 2009: Report called to [facility] on 5 and pt placed in for transportation to [facility]. * Lise Segura MD - 10/20/2016 5:59 PM EDT Vascular Attending Note I evaluated Mr. Tillman in the PACU approximately 1 hour after his surgery. He was awake and alert. Vital signs were normal. His only complaint was discomfort related to the Colin catheter. Exam notable for normal vital signs. His motor and sensory exams are intact. Tongue midline. No neck hematoma or bleeding. Impression: Doing well. Plan: Routine post CEA care path. Careful attention to blood pressure control. Possible early removal of Colin catheter. Ongoing neurovascular checks. Lise Segura M.D. Section of Vascular Surgery * Dante Quintana RN - 10/20/2016 4:42 PM EDT 1630 Care assumed. Assessed by surgical team [address] Tapia 1715 family at bedside * Mary Harman RN - 10/20/2016 4:38 PM EDT Pt to PACU via bed from OR; monitors applied, alarms set and audible. * Pushpa Kearney APRN - 10/20/2016 9:18 AM EDT Stroke Rounding Note Patient Name: Hieu Tillman Patient Age/Sex: 61 y.o. male Hospital Day 1 day Diagnosis: right central retinal artery occlusion in setting of severe right ICA stenosis Events: MRI brain negative for stroke. Pt going to OR today with vascular surgery for CEA. Vital Signs: Temp: [36.1 ??C (97 ??F)-36.6 ??C (97.9 ??F)] Heart Rate: [66-84] Resp: [15-21] BP: (89-130)/(57-94) SpO2: [94 %-98 %] Heart Rate from SPO2: [69 bpm-73 bpm] Lab Results Component Value Date HA1C 5.8 (H) 10/19/2016 Set Measure ID # Measure STK--1 Venous Thromboembolism (VTE) Prophylaxis SCDs and enoxaparin 40mg subcutaneously daily STK--3 Anticoagulation Therapy for Atrial Fibrillation/Flutter N/A - no afib STK--5 Antithrombotic Therapy By End of Hospital Day 2 Aspirin and clopidogrel daily STK--6 Discharged on Statin Medication Atorvastatin 80mg daily Lipid Panel : Lab Results Component Value Date CHLPL 127 10/19/2016 HDL 31 (L) 10/19/2016 CHOLHDL 4.1 10/19/2016 TRIG 166 10/19/2016 LDLCHOL 63 10/19/2016 LDLDIRECT 85 09/12/2013 STK--8 Stroke Education Please see nursing care plan note for additional education provided Patient and/or family/caregivers express understanding of the likely causes of this stroke, personal risk factors, diagnostic considerations, hospital course thus far, and treatment plan going forward. Patient and/or family members have received personalized stroke educational materials to review and were allowed time for questions and answers. There are no further questions at this time. They were encouraged to review the educational handouts provided and write down any questions that may arise for the vascular neurology team to address at a later time. Patient Education Provided to date includes: Checked box [x] indicates done [x] central retinal artery occlusion and CEA education packet provided [x] Personal Risk Factors [x] Warning signs of stroke [x] Activation of an emergency medical system [x] Need for follow-up after discharge [x] Medications prescribed [x] supplemental personalized educational material provided, including: - Carotid Endarterectomy - CRAO education STK--10 Assessed for Rehabilitation OT to assess pt after surgery. Anticipate he may return home with supervision and outpatient OT. Refer to neurology progress note for current assessment and plan. Please page Vascular Neurology at #[phone] with any questions. Pushpa Kearney APRN Personal Pager #[phone] [place] [address] * Benjamin Ingrid Jaimie - 10/20/2016 7:58 AM EDT Vascular Surgery - Consult Note Patient Name: Hieu Tillman : [id number] MR#: [id number] 10/19/2016 Hospital Day 1 day ID: Mr. Tillman is a 61 year old man with PMH >40pyh smoking (quit several years ago), HTN, HLD, PVD(R iliac stent 2011), CAD (coronary stent x3 2013), with known carotid stenosis, presenting with acute onset right retinal artery occlusion and R ICA stenosis. 24H/Subjective: -FRANCOISE overnight -Subjective R eyelid weakness, limited vision persists -MRA completed overnight Current Facility-Administered Medications: ??? aspirin EC tablet 81 mg, 81 mg, Oral, Daily, Marcial Padilla MD ??? atorvastatin (LIPITOR) tablet 80 mg, 80 mg, Oral, Daily with dinner, Marcial Padilla MD ??? clopidogrel (PLAVIX) tablet 75 mg, 75 mg, Oral, Daily, Marcial Padilla MD ??? hydroCHLOROthiazide (HYDRODIURIL) tablet 25 mg, 25 mg, Oral, Daily, Marcial Padilla MD ??? lisinopril (PRINIVIL;ZESTRIL) tablet 10 mg, 10 mg, Oral, Daily, Marcial Padilla MD ??? meTOPROLOL succinate (TOPROL-XL) XL tablet 25 mg, 25 mg, Oral, Daily, Marcial Padilla MD ??? nitroGLYcerin (NITROSTAT) SL tablet 0.4 mg, 0.4 mg, Sublingual, Q5 Min PRN, Marcial Padilla MD ??? pantoprazole (PROTONIX) tablet 40 mg, 40 mg, Oral, Daily, Marcial Padilla MD ??? chlorhexidine (PERIDEX) 0.12 % oral solution 15 mL, 15 mL, Oral, 2 times per day, Marcial Padilla MD, 15 mL at 10/19/162030 ??? sodium chloride 0.9 % flush 5 mL, 5 mL, Intravenous, BID, Marcial Padilla MD, 5 mL at 10/19/162020 ??? sodium chloride 0.9 % flush 5-20 mL, 5-20 mL, Intravenous, Q1 Min PRN, Marcial Padilla MD ??? lidocaine (XYLOCAINE) 10 mg/mL (1 %) injection 3 mg, 0.3 mL, Subcutaneous, Once PRN, Marcial Pdailla MD ??? sodium chloride 0.9% infusion, 1,000 mL, Intravenous, Continuous, Marcial Padilla MD, LastRate: 100 mL/hr at 10/19/162111, 1,000 mL at 10/19/162111 ??? docusate sodium (COLACE) capsule 100 mg, 100 mg, Oral, BID, Marcial Padilla MD, 100 mg at 10/19/162020 ??? bisacodyl (DULCOLAX) suppository 10 mg, 10 mg, Rectal, Daily PRN, Marcial Padilla MD ??? magnesium hydroxide (MILK OF MAGNESIA) oral suspension 10 mL, 10 mL, Oral, Daily PRN, Marcial Padilla MD ??? enoxaparin (LOVENOX) injection 40 mg, 40 mg, Subcutaneous, Nightly, Marcial Padilla MD, 40mg at 10/19/162022 ??? labetalol (NORMODYNE,TRANDATE) injection 10-20 mg, 10-20 mg, Intravenous, Q15 Min PRN, Marcial Padilla MD ??? enalaprilat (VASOTEC) injection, 1.25 mg, Intravenous, Q6H PRN, Marcial Padilla MD ??? acetaminophen (TYLENOL) tablet 975 mg, 975 mg, Oral, Q6H PRN, 975 mg at 10/19/162020 OR acetaminophen (TYLENOL) 650 mg/20.3 mL oral liquid 975 mg, 975 mg, Per G Tube, Q6H PRN OR acetaminophen (TYLENOL) suppository 975 mg, 975 mg, Rectal, Q6H PRN, Marcial Padilla MD ??? Mometasone-Formoterol (Dulera MDI) 100-5 mcg/actuation inhaler 2 puff, 2 puff, Inhalation, 2 times per day, Anshu Michaud MD, 2 puff at 10/19/162023 ??? ipratropium-albuterol (COMBIVENT RESPIMAT) inhaler 1 puff, 1 puff, Inhalation, 4 Times Daily, Sammy Cruz MD, 1 puff at 10/19/162024 ??? carboxymethylcellulose (REFRESH PLUS) 0.5 % ophthalmic drops 1 drop, 1 drop, Both Eyes, TID PRN, Sammy Cruz MD, 1 drop at 10/19/162110 Physical Exam: Last value Range last 24 hrs Temperature Temp: 36.6 ??C (97.9 ??F) Temp: [36.1 ??C (97 ??F)-36.6 ??C (97.9 ??F)] Heart Rate Heart Rate: 84 Heart Rate: [66-84] Blood Pressure BP: 128/65 BP: (89-130)/(57-94) Respiratory Rate Resp: 17 Resp: [15-21] SpO2 SpO2: 94 % SpO2: [94 %-98 %] RA Gen: Awake and alert, in NAD Card: Regular by periphery Pulm: Non-labored breathing Abd: Soft, NT; no appreciable pulsatile masses Ext: WWP Vasc: LEFT RIGHT Radial 2/2 2/2 Femoral 2/2 2/2 DP Doppler Doppler PT Doppler Doppler Neuro: Blindness Right eye. Normal vision Left eye. Alert, Cr nn II-XII intact other than visual loss. Normal motor and sensory strength in all 4 extremities Laboratory: CBC Lab Results Component Value Date WBC 10.0 (H) 10/19/2016 Hemoglobin 13.7 10/19/2016 Hematocrit 41.3 10/19/2016 Platelets 498 (H) 10/19/2016 Electrolytes Lab Results Component Value Date Sodium 141 10/19/2016 Potassium 3.8 10/19/2016 Chloride 98 10/19/2016 CO2 23 10/19/2016 Creatinine: Lab Results Component Value Date CREATININE 1.06 10/19/2016 Coags Lab Results Component Value Date INR 0.9 10/19/2016 PT 12.9 10/19/2016 PTT 29 10/19/2016 ECG (10/20/16): Normal sinus, no ischemia Echo pending Imaging/Studies: Carotid Duplex 10/19/16 RIGHT: There is bulky irregular mixed echogenic plaque in the proximal internal carotid artery causing 60-99% stenosis when compared to the more distal internal carotid artery. The bifurcation level is in the mid neck. Significant progression of stenosis compared to the previous exam. LEFT: There is bulky irregular plaque in the [...] 3.40 ? 16-49% ? 102 ?? 1.10 Current ? 60-99% ? 464 ?? 4.40 ? 16-49% ? 57 ?1.80 ?? MRI/MRA (10/19/16) MRI BRAIN: There are no diffusion-weighted abnormalities. No masses, mass effect or extra-axial collections. The ventricles are normal size and configuration. There are a few nonspecific scattered areas of signal alteration the FLAIR sequence within the supratentorial white matter which probably represent very mild small vessel ischemic disease. Paranasal sinuses are clear as are the mastoid air cells. Midline structures are unremarkable. ?? MRA mcgrath of Fair: The intracranial vessels are normal course and caliber without focal stenoses or aneurysms. Proximal ophthalmic arteries are patent. ?? IMPRESSION No significant abnormalities. CT Head (10/19/16) There is no acute intracranial hemorrhage. The tse-white differentiation is maintained. The ventricles are within normal limits of caliber for age. No mass effect or extra-axial collection. Paranasal sinuses and mastoid air cells are clear. The orbits are unremarkable in appearance. The left lens has been removed. ?? IMPRESSION No evidence for acute cortical infarction. Assessment: Mr. Tillman is a 61 year old man with symptomatic Right carotid stenosis. He has persistent Right sidedblindness a/w retinal aa occlusion. Aside from his decreased vision he has no other neurological deficits. He is HDS with normal ECG. Recommendations: R CEA today with Dr. Segura Consent signed and in the chart Right side marked Continue ASA, Plavix, Lipitor INGRID BENJAMIN MD Vascular Surgery Service [id number] Associated attestation - Lise Segura MD - 10/20/2016 1:14 PM EDT Vascular Attending Addendum I interviewed and examined Mr. Tillman, and I reviewed his imaging studies in detail. Based on my independent observations I agree with Dr. iMn's assessment and plan. I summary, the patient suffered a right renal artery embolic occlusion yesterday, and his imaging studies demonstrate a very irregular long plaque in the proximal right internal carotid artery with astenosis that has progressed in severity compared to a prior exam on 10/07/15. I recommended a right carotid endarterectomy, and I reviewed indications, potential risks in detail, and potential benefits. For risks, I specifically cited stroke, NE, , CN injury, infection, bleeding and others. He expressed understanding and asked that we proceed. He denied any recent chestpain, and he stated that his breathing is fine as long as he gets his asthma inhalers timely. We will begin soon. Lise Segura M.D. Section of Vascular Surgery * Cassia Howell MD - 10/20/2016 6:21 AM EDT Neurology Progress Note Patient Name: Hieu Tillman Admit Date: 10/19/2016 Primary Attending: Lisa Ford MD Patient ID: Hieu Tillman is a 61 y.o. right handed with a PMH of CAD (s/p stent x1, 2013), HTN, HLD, COPD/Emphysema, carotid stenosis, PVD (R JAYA stent 12/07/11) who presents today after being diagnosed with a right central retinal artery occlusion. Interval History: Admitted to the neurology floor Vascular surgery consulted, plan for Right CEA today. No acute events overnight. Pain/Itching in Right eye relieved with Tylenol. Vitals: T 36.1 BP 121/61 HR 73 New data: MRA head and neck confirmed severe stenosis of the proximal right cervical internal carotid. Labs: WBC 10 N 68.5 L 17.5, HA1C 5.8, Chol total 127, Triglycerides 166, LDL 63, HDL 31, sed rate 18, BMP unremarkable. This AM notes notes slight improvement in his vision. No further itching/pain in his eye. Does haveheadache in the right protestant area this AM. Got tylenol. Medications: Scheduled Meds: Continuous Infusions: PRN Meds:. Physical Exam: Vitals: Temp: [36.5 ??C (97.7 ??F)] Heart Rate: [69-71] Resp: [16-21] BP: (119-130)/(67-94) SpO2: [97 %-98 %] Heart Rate from SPO2: [70 bpm-71 bpm] Gen: Patient of apparent stated age, well nourished, well developed, awake, alert, NAD Neck: Supple, no meningismus, right carotid bruit CV: + S1, S2, RRR, no murmur Resp: CTA B/L Abd: +normoactive bowel sounds, soft, nontender, nondistended Ext: No edema. No bony deformity Neuro Exam: MS: AAOx4, clear language, no dysarthria, follows commands CN: EOMI, right medial hemianopsia, Right RAPD Facial sensation intact, R ptosis Hearing intact to voice Palate elevates symmetrically, tongue protrudes midline SCM and trap strength intact Motor: Normal bulk and tone. UE: 5/5 R, 5/5 L Arm abduction at shoulder 5/5 R, 5/5 L Elbow extension 5/5 R, 5/5 L Elbow flexion 5/5 R, 5/5 L Wafer Polishing Lead Worker LE: 5/5 R, 5/5 L Hip flexion 5/5 R, 5/5 L Knee extension 5/5 R, 5/5 L Knee flexion 5/5 R, 5/5 L Foot dorsiflexion 5/5 R, 5/5 L Foot plantar flexion Sensation: Intact to light touch throughout Reflexes: Did not assess Coordination: Finger to nose intact, no dysmetria No tremor Gait: Did not assess Labs: Recent Results (from the past 24 hour(s)) Basic Metabolic Panel (non-fasting) Result Value Ref Range Glucose Lvl 95 65 - 199 mg/dL BUN 17 10 - 20 mg/dL Creatinine 1.06 0.80 - 1.50 mg/dL Sodium 141 135 - 145 mmol/L Potassium 3.8 3.5 - 5.0 mmol/L Chloride 98 98 - 107 mmol/L CO2 23 22 - 31 mmol/L Anion Gap 20 (H) 5 - 15 mmol/L Calcium 9.8 8.5 - 10.5 mg/dL Estimated GFR >60 >=60 Hepatic Function Panel Result Value Ref Range Total Protein 8.1 (H) 6.1 - 8.0 gm/dL Albumin 4.7 3.2 - 5.2 gm/dL AST 22 0 - 39 unit/L ALT 29 0 - 55 unit/L Alk Phos 110 40 - 120 unit/L Total Bilirubin 0.2 0.2 - 1.3 mg/dL Bili, Direct <0.1 0.0 - 0.3 mg/dL Sedimentation rate Result Value Ref Range Sed Rate 18 (H) 0 - 15 mm/hr Prothrombin Time Result Value Ref Range PT 12.9 12.0 - 15.0 sec INR 0.9 0.9 - 1.1 APTT Result Value Ref Range PTT 29 25 - 35 sec Lipid Panel Result Value Ref Range Chol, Total 127 <=239 mg/dL Triglycerides 166 <=199 mg/dL HDL 31 (L) >=40 mg/dL LDL Cholesterol 63 <=190 mg/dL Chol/HDL Ratio 4.1 ratio Lipid Interpretation See Note Hemoglobin A1c Result Value Ref Range Hemoglobin A1C 5.8 (H) 4.3 - 5.6 % Est Avg Gluc 120 mg/dL Hemogram Result Value Ref Range WBC 10.0 (H) 4.0 - 9.5 x10(3)/mcL RBC 4.86 4.58 - 5.54 x10(6)/mcL Hemoglobin 13.7 13.7 - 16.5 gm/dL Hematocrit 41.3 40.5 - 48.5 % MCV 85.0 82.9 - 93.1 fL MCH 28.2 27.5 - 32.1 pg MCHC 33.2 32.0 - 35.7 gm/dL Platelets 498 (H) 145 - 357 x10(3)/mcL RDWSD 44.1 36.0 - 45.0 fL RDWCV 14.4 (H) 11.4 - 13.8 % MPV 9.5 7.6 - 12.9 fL nRBC % Auto 0.0 % nRBC Abs Auto 0.000 0.000 - 0.000 x10(3)/mcL Differential, Automated Result Value Ref Range Neutrophils % 68.5 % Neutr Abs (ANC) 6.86 (H) 1.70 - 6.10 x10(3)/mcL Lymphocytes % 17.5 % Lymphocytes Abs 1.8 0.9 - 3.2 x10(3)/mcL Monocytes % 10.0 % Monocyte Abs 1.0 (H) 0.3 - 0.9 x10(3)/mcL Eosinophils % 2.1 % Eosinophils Abs 0.2 0.0 - 0.4 x10(3)/mcL Basophils % 0.6 % Basophils Abs 0.1 0.0 - 0.1 x10(3)/mcL Immature Gran % 1.30 % Suri Gran Abs 0.13 (H) 0.00 - 0.04 x10(3)/mcL Diagnostic Tests and Imaging: ESR 18 CT Head 10/19/16: no intracranial infarction or hemorrhage MRI Brain 10/19/16: negative MRA Brain 10/19/16: IMPRESSION Severe stenosis of the proximal right cervical internal carotid. Assessment / Recommendations: Hiue Tillman is a 61 y.o. right handed with a PMH of CAD (s/p stent 2013), HTN, HLD, COPD/Emphysema, carotid stenosis, PVD (R JAYA stent 12/07/11) who presents today after being diagnosed with a right central retinal artery occlusion. His last known well was at 9:30 PM on 10/18. He was acutely evaluated by ophthalmology this AM and was diagnosed with a right central retinal artery occlusion. He is currently on aspirin and plavix (due to CAD and stents) and has been taking them regularly. He hasa known history of carotid disease and has been monitored annually with a carotid US. His CUS here showed worsening R ICA stenosis. Vascular surgery was consulted and patient is scheduled for R CEA. ?? #Right central retinal occlusion -Admit to neurology, floor level of care -Neuro check & vitals Q4hrs / Q4hrs -Permissive HTN, treat SBP >220 with prn labetalol, enalaprilat -Check CBC, BMP, LFT, lipid profile, HbA1c, Mg, Phos, UA -cont statin: atorvastatin 80 mg daily -cont home aspirin 81 mg daily -cont home plavix 75 mg daily -TTE -12 lead EKG -Telemetry -CUS -MRI brain wo contrast, MRA head/neck -PT/OT/MACHINE BOBBIN WINDER -follow up with ophthalmology-retinal specialist in 3 months -vascular surgery consulted, scheduled for R CEA ?? #Other -COPD: cont Breo, combivent -CHF: cont home metoprolol XL 25 mg daily, cont home HCTZ 25 mg daily -HTN: cont lisinopril 10 mg daily -GERD: cont home pantoprazole 40 mg daily ?? # Prophylaxis -Lovenox 40mg SC daily -RBOs -SCDs ?? # Supportive care -Cardiac diet -Tylenol PRN -Up with assistance ?? # FULL code ?? Cassia Howell MD Neurology Resident Vascular Neurology 1255 Associated attestation - Anshu Michaud MD - 10/20/2016 8:10 PM EDT Neurology Staff Note I have reviewed the resident's history during the visit and I agree with the details as written. Myphysical examination confirms the resident's findings. The assessment and plan were formulated in discussion with me at the time of the visit and I agree with them as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 artery occlusion of retina, right CAROTID DUPLEX, UNILATERAL Routine 10/20/2016 2:54 PM EDT Central artery occlusion of retina, right @ENDARTERECTOMY, CAROTID, VERTEBRAL,SUBCLAVIAN W\WO PATCH GRAFT (WRVU 21.16) 10/20/2016 1:07 PM EDT right carotid stenosis, symptomatic ECHO COMPLETE Routine 10/20/2016 12:06 PM EDT Central artery occlusion of retina, right ENDART, CAROTID, VERTEBRAL,SUBCLAVIAN W\WO PATCH GRAFT, BY NECK INCIS Routine 10/20/2016 7:56 AM EDT MRI NECK ANGIOGRAM WWO CONTRAST STAT 10/19/2016 10:11 PM EDT MRI HEAD ANGIOGRAM AND MRI BRAIN WO CONTRAST Routine 10/19/2016 4:55 PM EDT EKG 12-LEAD STAT 10/19/2016 3:59 PM EDT HEMOGRAM STAT 10/19/2016 3:10 PM EDT DIFFERENTIAL, AUTOMATED STAT 10/19/2016 3:10 PM EDT APTT STAT 10/19/2016 3:10 PM EDT SEDIMENTATION RATE STAT 10/19/2016 3: 10 PM EDT PROTHROMBIN TIME STAT 10/19/2016 3:10 PM EDT CBC (WITH DIFF) STAT 10/19/2016 3:10 PM EDT HEMOGLOBIN A1C STAT 10/19/2016 3:10 PM EDT HEPATIC FUNCTION PANEL STAT 7 3:10 PM EDT LIPID PANEL (REFLEX DIRECT LDL) STAT 10/19/2016 3:10 PM EDT BASIC METABOLIC PANEL (NON-FASTING) STAT 10/19/2016 3:[address] HEAD WO CONTRAST (GENERIC) STAT 10/19/2016 2:26 PM EDT CAROTID DUPLEX, BILATERAL STAT 10/19/2016 2:09 PM EDT documented in this encounter Results * Carotid Duplex, Unilateral (11/17/2016 10:34 AM EDT) VB Text Report Department: Vascular Surgery Lab Patient: [id number] (HIEU TILLMAN) CPT: 87549 ICD10: H34.11 Referring Physician: LISE SEGURA ?? [...] EDT Lise Segura MD VASCULAR ORDERABLES VASCUBASE * SCAN DOC: FINANCIAL ADVISOR TRAINEE (10/23/2016 12:00 AM EDT) Anatomical Region Laterality Modality Other Narrative 10/23/2016 12:00 AM EDT Ordered by an unspecified provider. Scanning Provider MEDIA MGR SCAN EXT O RDR/RSLT * Transcranial Duplex, complete (10/21/2016 3:53 PM EDT) VB Text Report Department: Vascular Surgery Lab Patient: [id number] (HIEU TILLMAN) CPT: 00504 ICD10: Z48.812;I65.21 Referring Physician: LISE SEGURA ?? Indications: s/p right CEA, headache, increased blood pressure, ? reperfusion hyperemia ICD10 Diagnosis Code: Z48.812, I65.21 Findings: Middle Cerebral Artery Proximal, Right ? Mean Velocity (cm/s): 69 ? Depth (cm): 5.8 ? Pulsatility Index: 0.9 Middle Cerebral Artery Mid, Right ? Mean Velocity (cm/s): 49 ? Depth (cm): 4.8 ? Pulsatility Index: 1.1 Middle Cerebral Artery Distal, Right ? Mean Velocity (cm/s): 53 ? Depth (cm): 4.0 ? Pulsatility Index: 1.1 Middle Cerebral Artery Proximal, Left ? Mean Velocity (cm/s): 87 ? Depth (cm): 5.5 ? Pulsatility Index: 1.1 Middle Cerebral Artery Mid, Left ? Mean Velocity (cm/s): 87 ? Depth (cm): 5.0 ? Pulsatility Index: 1.0 Middle Cerebral Artery Distal, Left ? Mean Velocity (cm/s): 78 ? Depth (cm): 4.2 ? Pulsatility Index: 1.2 Interpretation: No evidence of reperfusion hyperemia. Comparison: ??No previous study in our vascular lab database for comparison. Electronically Signed by: DANDRE VASQUEZ on 2016-10-22 08:36:29 AM VASCUBASE VB Text Report End of Report VASCUBASE 10/21/2016 3:53 PM EDT Lise Segura MD VASCULAR ORDERABLES Performing Organization Address [facility] de Phone Number VASCUBASE * EKG 12 Lead (10/21/2016 3:05 PM EDT) Ventricular rate 100 BPM MUSE SYSTEM Atrial Rate 100 BPM MUSE SYSTEM P-R Interval 154 ms MUSE SYSTEM QRS Duration 88 ms MUSE SYSTEM Q-T Interval 362 ms MUSE SYSTEM QTC Calculated (Bezet) 466 ms MUSE SYSTEM Calculated P [place] 68 degrees MUSE SYSTEM Calculated R [place] 64 degrees MUSE SYSTEM Calculated T [place] 71 degrees MUSE SYSTEM INTERPRETATION Normal sinus rhythm Normal ECG When compared with ECG of 19-OCT-2016 15:59, Vent. rate has increased BY ??33 BPM Confirmed by MD Fisher Timothy ([id number]) on 10/22/2016 10:52:40 AM MUSE SYSTEM 10/21/2016 3:05 PM EDT 10/22/2016 10:52 AM EDT Lise Segura MD ECG ORDERABLES Performing Organization Address [facility] de Phone Number MUSE SYSTEM * Carotid Duplex, Unilateral (10/20/2016 2:54 PM EDT) VB Text Report Department: Vascular Surgery Lab Patient: [id number] (HIEU TILLMAN) CPT: 78710 ICD10: I65.21;H34.11 Referring Physician: ANSHU MICHAUD ?? Indications: Intra-op scan R ??CEA ICD10 Diagnosis Code: H34.11, I65.21 Findings: Right ?PSV (cm/s) ??EDV (cm/s) ??ICA/CCA ??%Stenosis ?? ICA Proximal ? 89 ?30 ?1.0 ??<15% ? CCA Distal ? 85 ?13 ? <50% ? External Carotid Artery ?51 ? 0 ? <50% ? Interpretation: RIGHT: Widely patent carotid bifurcation with no evidence of flap or residual stenosis. Significantly improved compared to the preoperative exam. Significant improvement compared to previous exam. Previous Carotid Studies: Date ?RIGHT ICA Stenosis [...] ?? 4.40 ? 16-49% ? 57 ?1.80 Current Exam ? <15% ? 89 ?1.00 ? n/a ?n/a ?? n/a Electronically Signed by: LIN SALINAS on 2016-10-20 04:37:24 PM VASCUBASE VB Text Report End of Report VASCUBASE 10/20/2016 2:54 PM EDT Anshu Michaud MD VASCULAR ORDERABLE S VASCUBASE * ECHO COMPLETE (10/20/2016 12:06 PM EDT) EF 62 HEARTLAB SYSTEM Anatomical Region Laterality Modality Other 10/20/2016 Narrative 10/20/2016 3:56 PM EDT Procedure: ?Transthoracic Echocardiogram Patient: ?CHRISTOPHE Roche ? (Age): 1955(61y) Med Rec#: ? [id number] ?Sex: ?M ? Site Loc: ? [facility] ?Ht / Wt: ??168(cm)/77(kg) Pt. Loc: ?Adult Floor ? BSA: ?1.87 Study Date: ?? 10/20/2016 ?Pt. Type: Inpatient Tape: ? 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 126/67 SUMMARY: 1. The left ventricular chamber size and wall thickness are normal. There is normal global left ventricular systolic function. The quantitative left ventricular ejection fraction by biplane Hay's method is 62%. There are no left ventricular segmental wall motion abnormalities. 2. The right ventricle is normal in size. Right ventricular global systolic function is normal. 3. The left atrium is normal in size. 4. There is no hemodynamically significant valve disease. 5. Please see remainder of report for additional details. 6. Compared to Echocardiogram of 09/11/2013 there has been no significant change. Findings ? : Left Ventricle: ? The left ventricular chamber size is normal. ?Left ventricular wall thickness is normal. ?No ventricular septal defect is visualized. ?There is normal global left ventricular systolic function. ?The quantitative left ventricular ejection fraction by biplane Hay's method is 62%. ?There are no left ventricular segmental wall motion abnormalities. ?Doppler assessment is consistent with normal left sided filling pressure. Left Atrium: ? The left atrium is normal in size. ?There is no patent foramen ovale visualized. Right Ventricle: ? The right ventricle is normal in size. ?Right ventricular global systolic function is normal. ?The estimated pulmonary artery systolic pressure is 21 mmHg. ?The estimated right atrial pressure is 3 mmHg. Right Atrium: ? The right atrium appears normal. Aortic Valve: ? The aortic valve is tricuspid. ?The aortic valve leaflets are mildly thickened. ?Systolic excursion of the aortic valve is normal. ?There is no evidence of aortic valve stenosis. ?There is no evidence of aortic regurgitation. Mitral Valve: ? The mitral valve leaflets appear normal. ?There is no evidence of mitral stenosis. ?There is trace mitral regurgitation present. Tricuspid Valve: ? The tricuspid valve leaflets are morphologically normal. ?There is no tricuspid valve stenosis. ?There is trace tricuspid regurgitation present. Pulmonic Valve: ? The pulmonic valve appears normal in structure and function. Pericardium: ? The pericardium appears normal and there is no evidence of a pericardial effusion. Aorta: ? The aortic root is normal in size. ?The ascending aorta was not well visualized. Pulmonary Artery: ? The main pulmonary artery appears normal. Venous: ? The inferior vena cava appears normal in size. ?There is a greater than 50% respiratory change in the inferior vena cava dimension. Misc: ? There is no hemodynamically significant valve disease. ?See remainder of report for additional findings. Chambers 2D ?Value ?Units (Range) ? IVSd (2D) ? 1.1 ?cm ? LVPWd (2D) ?1 ?cm ? IVS:LVPW ratio (2D) 1.1 ?ratio ? LVIDd (2D) ?4.1 ?cm ? LVIDs (2D) ?2.8 ?cm ? LVIDd (2D) index ?2.2 ?cm/m2 ? LVIDs (2D) index ?1.5 ?cm/m2 ? LV FS (2D) ?32 ? % ? EF Teichholz (2D) ?? 60 ? % ? Ao root diameter (2D3.3 ?cm (2.1 - 3.6) ? Volumes/Mass ?Value ?Units (Range) ? LA Area 4 CH ?10.1 ? cm2 (<21) ? RA AREA 4CH ? 10.1 ? cm2 ? LA ESV SP 4CH (MOD) 19 ? ml ? LA ESV SP 2CH (MOD) 42 ? ml ? LV ESV SP 4CH (MOD) 20 ? ml ? LV ESV SP 2CH (MOD) 25 ? ml ? LV EDV BP ? 61 ? ml ? LV ESV BP ? 23 ? ml ? BP EF (MOD) ? 62 ? % ? LV mass (2D) ?138.6 ?g ? LV mass (2D) index ??74.1 ? g/m2 ? Diastolic/Systolic Function ?Value ?Units (Range) ? MV E-wave Vmax ?0.8 ?m/sec ? MV deceleration [id number] ?msec ? MV A-wave Vmax ?0.6 ?m/sec ? MV E:A ratio ?1.2 ?ratio ? LV septal e' Vmax ?? 0.1 ?m/sec ? LV lateral e' Vmax ??0.1 ?m/sec ? LV average e' Vmax ??0.1 ?m/sec ? LV E:e' septal ratio10.6 ? ratio ? LV E:e' lateral rati6.1 ?ratio ? LV average E:e' rati7.7 ?ratio ? Tricuspid Valve ?Value ?Units (Range) ? TR Vmax ? 2.1 ?m/sec ? TR peak gradient ?18.2 ? mmHg ? RAP ? 3 ?mmHg ? RVSP ?21 ? mmHg ? Measurement Trending Name ? 10/20/2016 ? LV EDV BP ?61 LVIDd (2D) ? 4.08 LV ESV BP ?23 LVIDs (2D) ? 2.79 Wall Motion: Segment Name ?Rest ? Base-Anteroseptal ?? Normal ? Base-Anterior ? Normal ? Base-Anterolateral ??Normal ? Base-Posterolateral Normal ? Base-Inferior ? Normal ? Base-Inferoseptal ?? Normal ? Mid-Anteroseptal ?Normal ? Mid-Anterior ?Normal ? Mid-Anterolateral ?? Normal ? Mid-Posterolateral ??Normal ? Mid-Inferior ?Normal ? Mid-Inferoseptal ?Normal ? [place]-Septal ? Normal ? [place]-Anterior ? Normal ? [place]-Lateral ?Normal ? [place]-Inferior ? Normal ? [place]-Tip ?Normal ? This report has been electronically signed by: Trevin Cook MD ? 10/20/2016 15:56:38 Images reviewed and interpretation verified [facility] Cardiac Ultrasound Laboratory Procedure Note Trevin Cook MD - 10/20/2016 Procedure: Transthoracic Echocardiogram Patient: CHRISTOPHE Roche (Age): 1955(61y) Med Rec#: [id number] Sex: M Site Loc: [facility] [place] Ht / Wt: 168(cm)/77(kg) Pt. Loc: Adult Floor BSA: 1.87 Study Date: 10/20/2016 Pt. 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 The left ventricular chamber size and wall thickness are normal. There is normal global left ventricular systolic function. The quantitative left ventricular ejection fraction by biplane Hay's method is 62%. There are no left ventricular segmental wall motion abnormalities. 2. The right ventricle is normal in size. Right ventricular global systolic function is normal. 3. The left atrium is normal in size. 4. There is no hemodynamically significant valve disease. 5. Please see remainder of report for additional details. 6. Compared to Echocardiogram of 09/11/2013 there has been no significant change. Findings : Left Ventricle: The left ventricular chamber size is normal. Left ventricular wall thickness is normal. No ventricular septal defect is visualized. There is normal global left ventricular systolic function. The quantitative left ventricular ejection fraction by biplane Hay's method is 62%. There are no left ventricular segmental wall motion abnormalities. Doppler assessment is consistent with normal left sided filling pressure. Left Atrium: The left atrium is normal in size. There is no patent foramen ovale visualized. Right Ventricle: The right ventricle is normal in size. Right ventricular global systolic function is normal. The estimated pulmonary artery systolic pressure is 21 mmHg. The estimated right atrial pressure is 3 mmHg. Right Atrium: The right atrium appears normal. Aortic Valve: The aortic valve is tricuspid. The aortic valve leaflets are mildly thickened. Systolic excursion of the aortic valve is normal. There is no evidence of aortic valve stenosis. There is no evidence of aortic regurgitation. Mitral Valve: The mitral valve leaflets appear normal. There is no evidence of mitral stenosis. There is trace mitral regurgitation present. Tricuspid Valve: The tricuspid valve leaflets are morphologically normal. There is no tricuspid valve stenosis. There is trace tricuspid regurgitation present. Pulmonic Valve: The pulmonic valve appears normal in structure and function. Pericardium: The pericardium appears normal and there is no evidence of a pericardial effusion. Aorta: The aortic root is normal in size. The ascending aorta was not well visualized. Pulmonary Artery: The main pulmonary artery appears normal. Venous: The inferior vena cava appears normal in size. There is a greater than 50% respiratory change in the inferior vena cava dimension. Misc: There is no hemodynamically significant valve disease. See remainder of report for additional findings. Chambers 2D Value Units (Range) IVSd (2D) 1.1 cm LVPWd (2D) 1 cm IVS:LVPW ratio (2D) 1.1 ratio LVIDd (2D) 4.1 cm LVIDs (2D) 2.8 cm LVIDd (2D) index 2.2 cm/m2 LVIDs (2D) index 1.5 cm/m2 LV FS (2D) 32 % EF Teichholz (2D) 60 % Ao root diameter (2D3.3 cm (2.1 - 3.6) Volumes/Mass Value Units (Range) LA Area 4 CH 10.1 cm2 (<21) RA AREA 4CH 10.1 cm2 LA ESV SP 4CH (MOD) 19 ml LA ESV SP 2CH (MOD) 42 ml LV ESV SP 4CH (MOD) 20 ml LV ESV SP 2CH (MOD) 25 ml LV EDV BP 61 ml LV ESV BP 23 ml BP EF (MOD) 62 % LV mass (2D) 138.6 g LV mass (2D) index 74.1 g/m2 Diastolic/Systolic Function Value Units (Range) MV E-wave Vmax 0.8 m/sec MV deceleration [id number] msec MV A-wave Vmax 0.6 m/sec MV E:A ratio 1.2 ratio LV septal e' Vmax 0.1 m/sec LV lateral e' Vmax 0.1 m/sec LV average e' Vmax 0.1 m/sec LV E:e' septal ratio10.6 ratio LV E:e' lateral rati6.1 ratio LV average E:e' rati7.7 ratio Tricuspid Valve Value Units (Range) TR Vmax 2.1 m/sec TR peak gradient 18.2 mmHg RAP 3 mmHg RVSP 21 mmHg Measurement Trending Name 10/20/2016 LV EDV BP 61 LVIDd (2D) 4.08 LV ESV BP 23 LVIDs (2D) 2.79 Wall Motion: Segment Name Rest Base-Anteroseptal Normal Base-Anterior Normal Base-Anterolateral Normal Base-Posterolateral Normal Base-Inferior Normal Base-Inferoseptal Normal Mid-Anteroseptal Normal Mid-Anterior Normal Mid-Anterolateral Normal Mid-Posterolateral Normal Mid-Inferior Normal Mid-Inferoseptal Normal [place]-Septal Normal [place]-Anterior Normal [place]-Lateral Normal [place]-Inferior Normal [place]-Tip Normal This report has been electronically signed by: Trevin Cook MD 10/20/2016 15:56:38 Images reviewed and interpretation verified [facility] Cardiac Ultrasound Laboratory Lisa Ford MD ECHO ORDERABLES * MRI Angiogram Neck wwo Contrast (Generic) (10/19/2016 10:11 PM EDT) Anatomical Region Laterality Modality Neck Magnetic Resonan ce Impressions 10/20/2016 1:23 AM EDT Severe stenosis of the proximal right cervical internal carotid. I have personally reviewed the image(s) and the residents interpretation and agree with the findings, Yehuda Godwin at 10/20/2016 1:23 AM Narrative 10/20/2016 1:23 AM EDT EXAMINATION: MRI ANGIOGRAM NECK WWO CONTRAST (GENERIC) CLINICAL HISTORY: Rt Central retinal artery occlusion TECHNIQUE: MRA of the neck prior to and following venous administration of 8 mL of Gadavist. COMPARISON: MR brain and noncontrast head CT October 19, 2016 FINDINGS: Normal three-vessel aortic arch configuration. Normal caliber of the great vessels at their origins. Severe stenosis of the right cervical internal carotid artery at its origin. Remainder of the right cervical internal carotid artery is normal caliber. The left common and left cervical internal carotid arteries are normal caliber. Normal caliber of the cervical vertebral arteries . Procedure Note Yehuda Godwin MD - 10/20/2016 EXAMINATION: MRI ANGIOGRAM NECK WWO CONTRAST (GENERIC) CLINICAL HISTORY: Rt Central retinal artery occlusion TECHNIQUE: MRA of the neck prior to and following venous administration of8 mL of Gadavist. COMPARISON: MR brain and noncontrast head CT October 19, 2016 FINDINGS: Normal three-vessel aortic arch configuration. Normal caliber of thegreat vessels at their origins. Severe stenosis of the right cervical internalcarotid artery at its origin. Remainder of the right cervical internal carotidartery is normal caliber. The left common and left cervical internal carotidarteries are normal caliber. Normal caliber of the cervical vertebral arteries . IMPRESSION Severe stenosis of the proximal right cervical internal carotid. I have personally reviewed the image(s) and the residents interpretationand agree with the findings, Yehuda Godwin at 10/20/2016 1:23 AM Lisa Ford MD IMG MRI ORDERABLES * MRI Angiogram Head & MRI Brain wo Contrast (10/19/2016 4:55 PM EDT) Anatomical Region Laterality Modality Head Magnetic Resonan ce Impressions 10/19/2016 7:46 PM EDT No significant abnormalities. Narrative 10/19/2016 7:46 PM EDT EXAMINATION: MRI ANGIOGRAM HEAD & MRI BRAIN WO CONTRAST CLINICAL HISTORY: Central retinal artery occlusion right eye TECHNIQUE: Brain MRI and MRA mcgrath of [place] without contrast. Routine protocol. COMPARISON: CT head 10/19/2016. FINDINGS: MRI BRAIN: There are no diffusion-weighted abnormalities. No masses, mass effect or extra-axial collections. The ventricles are normal size and configuration. There are a few nonspecific scattered areas of signal alteration the FLAIR sequence within the supratentorial white matter which probably represent very mild small vessel ischemic disease. Paranasal sinuses are clear as are the mastoid air cells. Midline structures are unremarkable. MRA mcgrath of [place]: The intracranial vessels are normal course and caliber without focal stenoses or aneurysms. Proximal ophthalmic arteries are patent. Procedure Note Kingsley Romero MD - 10/19/2016 EXAMINATION: MRI ANGIOGRAM HEAD & MRI BRAIN WO CONTRAST CLINICAL HISTORY: Central retinal artery occlusion right eye TECHNIQUE: Brain MRI and MRA mcgrath of [place] without contrast. Routine protocol. COMPARISON: CT head 10/19/2016. FINDINGS: MRI BRAIN: There are no diffusion-weighted abnormalities. No masses, masseffect or extra-axial collections. The ventricles are normal size andconfiguration. There are a few nonspecific scattered areas of signal alteration theFLAIR sequence within the supratentorial white matter which probably representvery mild small vessel ischemic disease. Paranasal sinuses are clear as arethe mastoid air cells. Midline structures are unremarkable. MRA mcgrath of [place]: The intracranial vessels are normal course andcaliber without focal stenoses or aneurysms. Proximal ophthalmic arteries arepatent. IMPRESSION No significant abnormalities. Lisa Ford MD IMG MRI ORDERABLES * EKG 12 Lead (10/19/2016 3:59 PM EDT) Ventricular rate 67 BPM MUSE SYSTEM Atrial Rate 67 BPM MUSE SYSTEM P-R Interval 146 ms MUSE SYSTEM QRS Duration 82 ms MUSE SYSTEM Q-T Interval 424 ms MUSE SYSTEM QTC Calculated (Bezet) 448 ms MUSE SYSTEM Calculated P [place] 54 degrees MUSE SYSTEM Calculated R [place] 60 degrees MUSE SYSTEM Calculated T [place] 67 degrees MUSE SYSTEM INTERPRETATION Normal sinus rhythm Normal ECG When compared with ECG of 20-AUG-2014 10:22, No significant change was found Confirmed by MD HEIDI, EDWARD ([id number]) on 10/20/2016 7:51:28 AM MUSE SYSTEM 10/19/2016 3:59 PM EDT 10/20/2016 7:51 AM EDT Lisa Ford MD ECG ORDERABLES MUSE SYSTEM * (ABNORMAL) Differential, Automated (10/19/2016 3:10 PM EDT) Neutrophils % 68.5 % [facility] Neutr Abs (ANC) 6.86(H) 1.70 - 6.10 x10(3)/mc L [facility] Lymphocytes % 17.5 % [facility] Lymphocytes Abs 1.8 0.9 - 3.2 x10(3)/[facility] Monocytes % 10.0 % [facility] Monocyte Abs 1.0(H) 0.3 - 0.9 x10(3)/[facility] Eosinophils % 2.1 % [facility] Eosinophils Abs 0.2 0.0 - 0.4 x10(3)/[facility] Basophils % 0.6 % [facility] Basophils Abs 0.1 0.0 - 0.1 x10(3)/[facility] Immature Gran % 1.30 % [facility] Comment: Immature granulocytes(IG's)percentage and absolute count will include metamyelocytes, myelocytes, and promyelocytes. Blood smears from CBCs yielding IG's will be scanned manually for concordance. If this scan disagrees with the automated IG or if promyelocytes are noted, a manual differential will be performed. Suri Gran Abs 0.13(H) 0.00 - 0.04 x10(3)/[facility] Blood specimen (specimen) 10/19/2016 3:10 PM EDT 10/19/2016 3:18 PM EDT Narrative Resulting Agency Comment Spec In Lab Lisa Ford MD HEMATOLOGY ORDERABLE S [facility] [place] [address] * (ABNORMAL) Hemogram (10/19/2016 3:10 PM EDT) WBC 10.0(H) 4.0 - 9.5 x10(3)/[facility] RBC 4.86 4.58 - 5.54 x10(6)/[facility] Hemoglobin 13.7 13.7 - 16.5 gm/dL [facility] Hematocrit 41.3 40.5 - 48.5 % [facility] MCV 85.0 82.9 - 93.1 fL [facility] MCH 28.2 27.5 - 32.1 pg [facility] MCHC 33.2 32.0 - 35.7 gm/dL [facility] Platelets 498(H) 145 - 357 x10(3)/[facility] RDWSD 44.1 36.0 - 45.0 [facility] LAB[facility]ORY RDWCV 14.4(H) 11.4 - 13.8 % [facility] MPV 9.5 7.6 - 12.9 [facility] nRBC % Auto 0.0 % [facility] nRBC Abs Auto 0.000 0.000 - 0.000 x10(3)/[facility] Blood specimen (specimen) 10/19/2016 3:10 PM EDT 10/19/2016 3:18 PM EDT Narrative Resulting Agency Comment Spec In Lab Lisa Ford MD HEMATOLOGY ORDERABLE S [facility] [place] [address] * (ABNORMAL) Hemoglobin A1c (10/19/2016 3:10 PM EDT) Hemoglobin A1C 5.8(H) 4.3 - 5.6 % [facility] Comment: Reference Range: 4.3 - 5.6% 5.7 - 6.4% - Increased Risk of Developing Diabetes Mellitus >=6.5% - Consistent with diagnosis of Diabetes Mellitus In the absence of hyperglycemia (i.e. plasma glucose > 200 mg/dL) or classic symptoms of hyperglycemia a repeat measurement of HbA1c should be performed on a separate sample to confirm the diagnosis. Diagnosis and Classification of Diabetes Mellitus, Diabetes Care 2013; 36: Suppl. 1, H25-79 Est Avg Gluc 120 mg/dL [facility] Comment: eAG equivalents for HbA1c percentages: HbA1c(%) ?eAG(mg/dL) 6.0 ?126 6.5 ?140 7.0 ?154 7.5 ?169 8.0 ?183 8.5 ?197 9.0 ?212 9.5 ?226 10.0 ? 240 Limitations: The eAG calculation has not been validated on women, individuals below 18 years old and above 70 years old, and individuals with hemoglobinopathies. Additional resources are available on the ADA website: [email or web address] Fahad PENA, Marcello J, Veronique R, et al. ??Translating the A1C assay into estimated average glucose values. ??Diabetes Care 2008:31(8):8009-7192. Blood specimen (specimen) 10/19/2016 3:10 PM EDT 10/19/2016 3:18 PM EDT Narrative Resulting Agency Comment Spec In Lab Lisa Ford MD CHEMISTRY ORDERABLES Performing Organization Address City/State/[facility] Co de Phone Number [facility] [place] [address] * (ABNORMAL) Lipid Panel (10/19/2016 3:10 PM EDT) Chol, Total 127 <=239 mg/dL [facility] Triglycerides 166 <=199 mg/dL [facility] HDL 31(L) >=40 mg/dL [facility] LDL Cholesterol 63 <=190 mg/dL [facility] Chol/HDL Ratio 4.1 ratio [facility] Lipid Interpretation See Note [facility] Comment: Lipid management should be guided by a patient? s ASCVD risk, goals and preferences. ACC/AHA Guidelines recommend high intensity statin if clinical ASCVD or LDL greater than or equal to 190 mg/dL. http://circ.ahajournals.org/content/early/.cir.3897083216.86617.7a Adults aged 40-75 with LDL 70-189 mg/dL should have their 10 year ASCVD risk estimated with the ACC/AHA ASCVD risk commercial roofing estimator http://tools.acc.org/GDHCZ-Dtzj-Wcrggiucz/ Statin should be discussed if risk greater than or equal to 7.5% in non-diabetics. With diabetes, moderate intensity statin is recommended if risk less than 7.5%, high intensity if risk greater than or equal to 7.5%. Annual lipid monitoring on statins is not necessary. Evaluate secondary causes of Triglycerides greater than 500 mg/dL or LDL greater than 190 mg/dL: See table 6 of ACC/AHA Guideline. Lifestyle modification is a critical component of ASCVD risk reduction. Blood specimen (specimen) 10/19/2016 3:10 PM EDT 10/19/2016 3:18 PM EDT Narrative Resulting Agency Comment Spec In Lab Lisa Ford MD CHEMISTRY ORDERABLES Performing Organization Address [facility]/ZIP Co de Phone Number [facility] [place] [address] * APTT (10/19/2016 3:10 PM EDT) [facility] PTT 29 25 - 35 sec [facility] Comment: The recommended therapeutic range for full dose, unfractionated heparin at [facility] is 80 ? 114 seconds. The use of the anti-Xa (heparin) level rather than the PTT is recommended for monitoring anticoagulation intensity in critically ill patients receiving unfractionated heparin by continuous IV infusion. Blood specimen (specimen) 10/19/2016 3:10 PM EDT 10/19/2016 3:18 PM EDT Narrative Resulting Agency Comment Spec In Lab Lisa Ford MD HEMATOLOGY ORDERABLE S Performing Organization Address City/[facility]/ZIP Co de Phone Number [facility] [place] [address] * Prothrombin Time (10/19/2016 3:10 PM EDT) PT 12.9 12.0 - 15.0 sec [facility] Comment: An INR <2.0 indicates adequate procoagulant activity for hemostasis in most patients without underlying bleeding disorders, though the INR may not adequately reflect hemostatic capacity in patients with liver disease and synthetic impairment. The recommended target INR range for therapeutic anticoagulation is 2.0 ? 3.0 for most applications, though lower and higher ranges may be appropriate depending on clinical circumstances. INR 0.9 0.9 - 1.1 [facility] Blood specimen (specimen) 10/19/2016 3:10 PM EDT 10/19/2016 3:18 PM EDT Narrative Resulting Agency Comment Spec In Lab Lisa Ford MD HEMATOLOGY ORDERABLE S Performing Organization Address City/[facility]/ZIP Co de Phone Number [facility] [place] [address] * (ABNORMAL) Sedimentation rate (10/19/2016 3:10 PM EDT) Pathologist [facility] Sed Rate 18(H) 0 - 15 mm/hr [facility] Blood specimen (specimen) 10/19/2016 3:10 PM EDT 10/19/2016 3:18 PM EDT Narrative Resulting Agency Comment Spec In Lab Lisa Ford MD HEMATOLOGY ORDERABLE S [facility] [place] [address] * (ABNORMAL) Hepatic Function Panel (10/19/2016 3:10 PM EDT) Pathologist [facility] Total Protein 8.1(H) 6.1 - 8.0 gm/dL [facility] Albumin 4.7 3.2 - 5.2 gm/dL [facility] AST 22 0 - 39 unit/L [facility] ALT 29 0 - 55 unit/L [facility] Alk Phos 110 40 - 120 unit/L [facility] Total Bilirubin 0.2 0.2 - 1.3 mg/dL [facility] Bili, Direct <0.1 0.0 - 0.3 mg/dL [facility] Blood specimen (specimen) 10/19/2016 3:10 PM EDT 10/19/2016 3:18 PM EDT Narrative Resulting Agency Comment Spec In Lab Lisa Ford MD CHEMISTRY ORDERABLES [facility] [place] [address] * (ABNORMAL) Basic Metabolic Panel (non-fasting) (10/19/2016 3:10 PM EDT) Glucose Lvl 95 65 - 199 mg/dL [facility] Comment:Diabetes: >=200 mg/d L plus symptoms BUN 17 10 - 20 mg/dL [facility] Creatinine 1.06 0.80 - 1.50 mg/dL [facility] Comment: Please note that the pediatric reference intervals supplied above were not validated at [facility]. Results from pediatric patients should be interpreted in conjunction to the patient's age, height and muscle mass. Sodium 141 135 - 145 mmol/L [facility] Potassium 3.8 3.5 - 5.0 mmol/L [facility] Comment: Please note: ??Patients with WBC >100,000 may have falsely elevated Potassium levels. ??For accurate Potassium quantification in these patients send serum separator tube (gold top) for subsequent determinations. ??Contact the Clinical Chemistry Laboratory if there are any questions. Chloride 98 98 - 107 mmol/L [facility] CO2 23 22 - 31 mmol/L [facility] Anion Gap 20(H) 5 - 15 mmol/L [facility] Calcium 9.8 8.5 - 10.5 mg/dL [facility] Estimated GFR >60 >=60 [facility] Comment: This estimated GFR (eGFR) value was calculated using the MDRD equation which has been validated on patients between the ages of 18 and 70. The MDRD should not be used to assess kidney function in patients < 18 years of age or in patients with extremes of body mass, or in patients with acute kidney failure. This value should be multiplied by 1.2 for patients. For further information please copy and paste the following links into your internet browser. [email or web address] Blood specimen (specimen) 10/19/2016 3:10 PM EDT 10/19/2016 3:18 PM EDT Narrative Resulting Agency Comment Spec In Lab Lisa Ford MD CHEMISTRY ORDERABLES [facility] [place] [address] * CT Head wo Contrast (Generic) (10/19/2016 2:26 PM EDT) Anatomical Region Laterality Modality Head Computed Tomogra phy Impressions 10/19/2016 2:41 PM EDT No evidence for acute cortical infarction. Narrative 10/19/2016 2:41 PM EDT EXAMINATION: CT HEAD WO CONTRAST (GENERIC) CLINICAL HISTORY: CRAO TECHNIQUE: CT head was performed without contrast COMPARISON: None FINDINGS: There is no acute intracranial hemorrhage. The tse-white differentiation is maintained. The ventricles are within normal limits of caliber for age. No mass effect or extra-axial collection. Paranasal sinuses and mastoid air cells are clear. The orbits are unremarkable in appearance. The left lens has been removed. Procedure Note Eliza Varela MD - 10/19/2016 EXAMINATION: CT HEAD WO CONTRAST (GENERIC) CLINICAL HISTORY: CRAO TECHNIQUE: CT head was performed without contrast COMPARISON: None FINDINGS: There is no acute intracranial hemorrhage. The tse-white differentiationis maintained. The ventricles are within normal limits of caliber for age. Nomass effect or extra-axial collection. Paranasal sinuses and mastoid air cellsare clear. The orbits are unremarkable in appearance. The left lens has been removed. IMPRESSION No evidence for acute cortical infarction. Lisa Ford MD IMG CT ORDERABLES * Cerebrovascular Duplex, Bilateral (10/19/2016 2:09 PM EDT) VB Text Report Department: Vascular Surgery Lab Patient: [id number] (HIEU TILLMAN) CPT: 05216 ICD10: I65.23 Referring Physician: LISA FORD ?? Phone: Indications: ?? Right eye vision changes (blind) ICD10 Diagnosis Code: I65.23 Findings: ICA Proximal, Right ? PSV (cm/s): 464 ? EDV (cm/s): 148 ? ICA/CCA: 4.4 ? Plaque Structure: Mixed Echogenic ? Plaque Surface: Irregular ? %Stenosis: 60-99% ICA Distal, Right ? PSV (cm/s): 85 ? EDV (cm/s): 27 ? ICA/CCA: 0.8 CCA Distal, Right ? PSV (cm/s): 106 ? EDV (cm/s): 29 ? %Stenosis: <50% CCA Proximal, Right ? PSV (cm/s): 121 ? EDV (cm/s): 28 External Carotid Artery, Right ? PSV (cm/s): 222 ? EDV (cm/s): 35 ? %Stenosis: >50% Vertebral, Right ? PSV (cm/s): 68 ? EDV (cm/s): 24 ? Direction of Flow: Antegrade ICA Proximal, Left ? PSV (cm/s): 57 ? EDV (cm/s): 20 ? ICA/CCA: 1.0 ? Plaque Structure: Echogenic ? Plaque Surface: Irregular ? %Stenosis: 16-49% ICA Distal, Left ? PSV (cm/s): 108 ? EDV (cm/s): 32 ? ICA/CCA: 1.8 CCA Distal, Left ? PSV (cm/s): 59 ? EDV (cm/s): 16 ? %Stenosis: Minimal CCA Proximal, Left ? PSV (cm/s): 109 ? EDV (cm/s): 18 External Carotid Artery, Left ? PSV (cm/s): 88 ? EDV (cm/s): 9 ? %Stenosis: <50% Vertebral, Left ? PSV (cm/s): 43 ? EDV (cm/s): 17 ? Direction of Flow: Antegrade Interpretation: RIGHT: There is bulky irregular mixed echogenic plaque in the proximal internal carotid artery causing 60-99% stenosis when compared to the more distal internal carotid artery. The bifurcation level is in the mid neck. Significant progression of stenosis compared to the previous exam. LEFT: There is bulky irregular plaque in the proximal internal carotid artery causing 16-49% stenosis when compared to the more distal internal carotid artery. The bifurcation level is in the mid neck. No significant change compared to previous exam. Vertebral Artery Data: Patent vertebral arteries with normal antegrade Doppler waveforms and velocities bilaterally. Dr. Garcia was Previous Carotid Studies: Date ?RIGHT ICA Stenosis [...] 3.40 ? 16-49% ? 102 ?? 1.10 Current Exam ? 60-99% ? 464 ?? 4.40 ? 16-49% ? 57 ?1.80 Electronically Signed by: LISE SEGURA on 2016-10-19 10:22:15 PM VASCUBASE VB Text Report End of Report VASCUBASE 10/19/2016 2:09 PM EDT Lisa Ford MD VASCULAR ORDERABLES VASCUBASE documented in this encounter Visit Diagnoses Diagnosis Central artery occlusion of retina, right Stenosis of right carotid artery Occlusion and stenosis of carotid artery without mention of cerebral infarction Central artery occlusion of retina Stenosis of right carotid artery Occlusion and stenosis of carotid artery without mention of cerebral infarction documented in this encounter Admitting Diagnoses Diagnosis Central artery occlusion of retina documented in this encounter Administered Medications Inactive Administered Medications - up to 3 most recent administrations Medication Order MAR Action Action Date Dose Rate Site acetaminophen (TYLENOL) 650 mg/20.3 mL oral liquid 975 mg 975 mg, Per G Tube, EVERY 6 HOURS PRN, Starting on Wed10/19/16 at 1804, Until Federica 10/22/16 at 1435, Pain, Fever, pain or temperature greater than 100 degrees F (measured by mouth), Routine acetaminophen (TYLENOL) suppository 975 mg 975 mg, Rectal, EVERY 6 HOURS PRN, Starting on Wed10/19/16 at 1804, Until Federica 10/22/16 at 1435, Pain, Fever, pain or temperature greater than 100 degrees F (measured by mouth), Maximum dose of acetaminophen is 4000 mg from all sources in 24 hours., Routine acetaminophen (TYLENOL) tablet 975 mg 975 mg, Oral, EVERY 6 HOURS PRN, Starting on Wed10/19/16 at 1804, Until Federica 10/22/16 at 1435, Pain, Fever, pain or temperature greater than 100 degrees F (measured by mouth), Maximum dose of acetaminophen is 4000 mg from all sources in 24 hours., Routine Given 10/22/2016 9:31 AM EDT 975 mg Given 10/22/2016 1:17 AM EDT 975 mg Given 10/21/2016 6:52 PM EDT 975 mg aspirin EC tablet 81 mg 81 mg, Oral, DAILY, First dose on Wed10/19/16 at 1930, Until Discontinued, Routine Given 10/22/2016 9:31 AM EDT 81 mg Given 10/21/2016 8:41 AM EDT 81 mg Given 10/20/2016 8:45 AM EDT 81 mg atorvastatin (LIPITOR) tablet 80 mg 80 mg, Oral, DAILY WITH DINNER, First dose on Wed10/19/16 at 1930, Until Discontinued, Routine Given 10/21/2016 4:51 PM EDT 80 mg carboxymethylcellulose (REFRESH PLUS) 0.5 % ophthalmic drops 1 drop 1 drop, Both Eyes, 3 TIMES DAILY PRN, Starting on Wed10/19/16 at 2001, Until Federica 10/22/16 at 1435, Dry Eyes, or eye discomfort, Routine Given 10/19/2016 9:11 PM EDT 1 drop ceFAZolin (ANCEF) 2g in dextrose 5% 100 mL 2 g, Intravenous, EVERY 8 HOURS, 2 doses, First dose on Wed10/20/16 at 1645, Last dose on Wed10/21/16 at 0045, Administer over 30 Minutes, Redose after 4 hours., Recovery (Recovery-Hospital Unit), Indication for (Active or Suspected): Prophylaxis Given 10/21/2016 1:45 AM EDT 2 g 200 mL/hr Given 10/20/2016 5:24 PM EDT 2 g 200 mL/hr chlorhexidine (PERIDEX) 0.12 % oral solution 15 mL 15 mL, Oral, EVERY 12 HOURS SCHEDULED (2 times per day), First dose on Wed10/19/16 at 2100, Until Discontinued, [place] teeth every 12 hours, Routine Given 10/22/2016 9:33 AM EDT 15 mLs Given 10/21/2016 8:18 PM EDT 15 mLs Given 10/21/2016 8:43 AM EDT 15 mLs clopidogrel (PLAVIX) tablet 75 mg 75 mg, Oral, DAILY, First dose on Wed10/19/16 at 1930, Until Discontinued, Routine Given 10/20/2016 8:45 AM EDT 75 mg clopidogrel (PLAVIX) tablet 75 mg 75 mg, Oral, DAILY, First dose on Wed10/21/16 at 0900, Until Discontinued, Routine Given 10/22/2016 9:31 AM EDT 75 mg Given 10/21/2016 8:41 AM EDT 75 mg docusate sodium (COLACE) capsule 100 mg 100 mg, Oral, 2 TIMES DAILY, First dose on Wed10/19/16 at 2100, Until Discontinued, Routine Given 10/22/2016 9:31 AM EDT 100 mg Given 10/21/2016 8:18 PM EDT 100 mg Given 10/21/2016 8:41 AM EDT 100 mg enoxaparin (LOVENOX) injection 40 mg 40 mg, Subcutaneous, NIGHTLY, First dose on Wed10/19/16 at 2100, Until Discontinued, Routine Given 10/19/2016 8:23 PM EDT 40 mg gadobutrol (GADAVIST) 1 mMol/mL injection 8 mL 8 mL, Intravenous, ONCE PRN, 1 dose, Starting on Wed10/19/16 at 2207, Until Wed10/19/16 at 2155, Per Protocol, Routine Given 10/19/2016 9:55 PM EDT 8 mLs hydrALAZINE (APRESOLINE) injection 10 mg 10 mg, Intravenous, EVERY 1 HOUR PRN, Starting on Wed10/20/16 at 1624, Until Wed10/22/16 at 1435, High Blood Pressure, for blood pressure > 150 for maximum of 2 doses then dayron HIGUERA, Use if 2 doses of labetalol ineffective in achieving goal., Routine Given 10/21/2016 1:21 PM EDT 10 mg hydroCHLOROthiazide (HYDRODIURIL) tablet 25 mg 25 mg, Oral, DAILY, First dose on Wed10/19/16 at 1930, Until Discontinued, Routine Given 10/20/2016 8:45 AM EDT 25 mg hydroCHLOROthiazide (HYDRODIURIL) tablet 25 mg 25 mg, Oral, DAILY, First dose (after last modification) on Wed10/21/16 at 0700, Until Discontinued, Routine Given 10/22/2016 9:31 AM EDT 25 mg Given 10/21/2016 6:54 AM EDT 25 mg ipratropium-albuterol (COMBIVENT RESPIMAT) inhaler 1 puff 1 puff, Inhalation, 4 TIMES DAILY, First dose (after last reorder) on Wed10/19/16 at 2100, Until Discontinued, Must be primed prior to first administration., Routine Given 10/22/2016 9:33 AM EDT 1 puff Given 10/21/2016 8:17 PM EDT 1 puff Given 10/21/2016 4:52 PM EDT 1 puff labetalol (NORMODYNE,TRANDATE) injection 10 mg 10 mg, Intravenous, EVERY 1 HOUR PRN, Starting on Wed10/20/16 at 1624, Until Wed10/22/16 at 1435, High Blood Pressure, for SBP > 150, hold for HR < 60 for maximum of 2 doses, then dayron HOLLOWAY, May repeat 10 mg in 15 minutes once if SBP goal not achieved, Routine Given 10/21/2016 2:55 PM EDT 10 mg lisinopril (PRINIVIL;ZESTRIL) tablet 10 mg 10 mg, Oral, DAILY, First dose on Wed10/19/16 at 1930, Until Discontinued, Routine Given 10/20/2016 8:44 AM EDT 10 mg lisinopril (PRINIVIL;ZESTRIL) tablet 10 mg 10 mg, Oral, DAILY, First dose (after last modification) on Wed10/21/16 at 0700, Until Discontinued, Routine Given 10/21/2016 6:54 AM EDT 10 mg lisinopril (PRINIVIL;ZESTRIL) tablet 10 mg 10 mg, Oral, ONCE, 1 dose, On Wed10/21/16 at 1730, Routine Given 10/21/2016 4:51 PM EDT 10 mg lisinopril (PRINIVIL;ZESTRIL) tablet 20 mg 20 mg, Oral, DAILY, First dose (after last modification) on Wed10/22/16 at 0900, Until Discontinued, Routine Given 10/22/2016 9:31 AM EDT 20 mg meTOPROLOL succinate (TOPROL-XL) XL tablet 25 mg 25 mg, Oral, DAILY, First dose on Wed10/19/16 at 1930, Until Discontinued, DO NOT CRUSH OR OPEN, Routine Given 10/20/2016 8:44 AM EDT 25 mg meTOPROLOL succinate (TOPROL-XL) XL tablet 25 mg 25 mg, Oral, DAILY, First dose (after last modification) on Wed10/21/16 at 0700, Until Discontinued, DO NOT CRUSH OR OPEN, Routine Given 10/21/2016 6:54 AM EDT 25 mg meTOPROLOL tartrate (LOPRESSOR) tablet 25 mg 25 mg, Oral, EVERY 12 HOURS SCHEDULED (2 times per day), First dose on Wed10/21/16 at 1330, Until Discontinued, Routine Given 10/22/2016 9:31 AM EDT 25 mg Given 10/21/2016 8:20 PM EDT 25 mg Given 10/21/2016 1:24 PM EDT 25 mg Mometasone-Formoterol (Dulera MDI) 100-5 mcg/actuation inhaler 2 puff 2 puff, Inhalation, EVERY 12 HOURS SCHEDULED (2 times per day), First dose on Wed10/19/16 at 2100, Until Discontinued, Therapeutic interchange for fluticasone-vilanterol inhaler per [employer] policy Rinse mouth after administration. Given 10/22/2016 9:33 AM EDT 2 puffs Given 10/21/2016 8:17 PM EDT 2 puffs Given 10/21/2016 8:43 AM EDT 2 puffs ondansetron (ZOFRAN) injection 4 mg 4 mg, Intravenous, EVERY 8 HOURS PRN, Starting on Wed10/20/16 at 2044, Until Federica 10/22/16 at 1435, Nausea, May repeat times one in 30 minutes if ineffective ondansetron (ZOFRAN) tablet 4 mg 4 mg, Oral, EVERY 8 HOURS PRN, Starting on Wed10/20/16 at 2044, Until Federica 10/22/16 at 1435, Nausea, Vomiting, If multiple antiemetics are ordered, use ondansetron first. PO Preferred. If patient unable to take PO, may give IV if ordered. May repeat times one in 45 minutes if ineffective. , Routine pantoprazole (PROTONIX) tablet 40 mg 40 mg, Oral, DAILY, First dose on Wed10/19/16 at 1830, Until Discontinued, DO NOT CRUSH OR OPEN, Routine Given 10/22/2016 9:31 AM EDT 40 mg Given 10/21/2016 8:41 AM EDT 40 mg Given 10/20/2016 8:45 AM EDT 40 mg sodium chloride 0.9 % flush 5 mL 5 mL, Intravenous, 2 TIMES DAILY, First dose on Wed10/19/16 at 2100, Until Discontinued, Routine Given 10/20/2016 8:45 AM EDT 5 mLs Given 10/19/2016 8:21 PM EDT 5 mLs sodium chloride 0.9% infusion 1,000 mL, at 100 mL/hr, Intravenous, CONTINUOUS, Starting on Wed10/19/16 at 1736, Until Wed10/20/16 at 1624 New Bag 10/20/2016 8:50 AM EDT 1,000 mLs 100 mL /hr Restarted 10/19/2016 9:12 PM EDT 1,000 mLs 100 mL/hr New Bag 10/19/2016 6:56 PM EDT 1,000 mLs 100 mL/hr sodium chloride 0.9% infusion 75 mL/hr, Intravenous, CONTINUOUS, Starting on Wed10/20/16 at 1645, Until Wed10/21/16 at 0603 New Bag 10/20/2016 10:25 PM EDT 75 mL/hr 75 mL/hr Restarted 10/20/2016 4:39 PM EDT 75 mL/hr 75 mL/hr documented in this encounter Active and Recently Administered Medications Times are shown in EDT. Scheduled Medication Order 10/20/2016 10/21/2016 10/22/2016 aspirin EC tablet 81 mg 81 mg, Oral, DAILY, First dose on Wed10/19/16 at 1930, Until Discontinued, Routine 0845 (Given - Provider: Milli Akhtar, BOB)1249 (AUG Hold - Provider: Admin Adt - Reason: Transfer to a Procedural area)2036 (AUG Unhold - Provider: Admin Adt) 0841 (Given - Provider: Ashley Barton, BOB) 0931 (Given - Provider: Mayelin Cote RN) atorvastatin (LIPITOR) tablet 80 mg 80 mg, Oral, DAILY WITH DINNER, First dose on Wed10/19/16 at 1930, Until Discontinued, Routine 1249 (AUG Hold - Provider: Admin Adt - Reason: Transfer to a Procedural area)1700 (Automatically Held - Provider: Admin Adt)2036 (AUG Unhold - Provider: Admin Adt) 165 (Given - Provider: Ashley Barton, BOB) ceFAZolin (ANCEF) 2g in dextrose 5% 100 mL (COMPLETED) 2 g, Intravenous, EVERY 8 HOURS, 2 doses, First dose on Wed10/20/16 at 1645, Last dose on Wed10/21/16 at 0045, Administer over 30 Minutes, Redose after 4 hours., Recovery (Recovery-Hospital Unit), Indication for (Active or Suspected): Prophylaxis 1724 (Given - Provider: Dante Quintana RN) 0145 (Given - Provider: Hazel Lawson RN) chlorhexidine (PERIDEX) 0.12 % oral solution 15 mL 15 mL, Oral, EVERY 12 HOURS SCHEDULED (2 times per day), First dose on Wed10/19/16 at 2100, Until Discontinued, [place] teeth every 12 hours, Routine 0844 (Not Given - Provider: Milli Akhtar RN - Reason: Patient/family refused)1249 (AUG Hold - Provider: Admin Adt - Reason: Transfer to a Procedural area)2036 (AUG Unhold - Provider: Admin Adt)2144 (Given - Provider: Hazel Lawson RN) 0843 (Given - Provider: Ashley Barton RN)2017 (Given - Provider: Hazel Lawson RN) 0933 (Given - Provider: Mayelin Cote, BOB) clopidogrel (PLAVIX) tablet 75 mg (CANCELED) 75 mg, Oral, DAILY, First dose on Wed10/19/16 at 1930, Until Discontinued, Routine 0845 (Given - Provider: Milli Akhtar RN)1249 (AUG Hold - Provider: Admin Adt - Reason: Transfer to a Procedural area)2036 (AUG Unhold - Provider: Admin Adt) clopidogrel (PLAVIX) tablet 75 mg 75 mg, Oral, DAILY, First dose on Wed10/21/16 at 0900, Until Discontinued, Routine 0841 (Given - Provider: Ashley Barton, BOB) 0931 (Given - Provider: Mayelin Cote RN) docusate sodium (COLACE) capsule 100 mg 100 mg, Oral, 2 TIMES DAILY, First dose on Wed10/19/16 at 2100, Until Discontinued, Routine 0845 (Given - Provider: Milli Akhtar RN)1249 (AUG Hold - Provider: Admin Adt - Reason: Transfer to a Procedural area)2036 (AUG Unhold - Provider: Admin Adt)2144 (Given - Provider: Hazel Lawson, BOB) 0841 (Given - Provider: Ashley Barton, BOB)2017 (Given - Provider: Hazel Lawson RN) 0931 (Given - Provider: Mayelin Cote, BOB) hydroCHLOROthiazide (HYDRODIURIL) tablet 25 mg (CANCELED) 25 mg, Oral, DAILY, First dose on Wed10/19/16 at 1930, Until Discontinued, Routine 0845 (Given - Provider: Milli Akhtar RN)1249 (AUG Hold - Provider: Admin Adt - Reason: Transfer to a Procedural area)2036 (AUG Unhold - Provider: Admin Adt) hydroCHLOROthiazide (HYDRODIURIL) tablet 25 mg 25 mg, Oral, DAILY, First dose (after last modification) on Wed10/21/16 at 0700, Until Discontinued, Routine 0654 (Given - Provider: Hazel Lawson RN) 0931 (Given - Provider: Mayelin Cote, BOB) ipratropium-albuterol (COMBIVENT RESPIMAT) inhaler 1 puff 1 puff, Inhalation, 4 TIMES DAILY, First dose (after last reorder) on Wed10/19/16 at 2100, Until Discontinued, Must be primed prior to first administration., Routine 0847 (Given - Provider: Milli Akhtar RN)1249 (AUG Hold - Provider: Admin Adt - Reason: Transfer to a Procedural area)1300 (Automatically Held - Provider: Admin Adt)1624 (AUG Unhold - Provider: Mary Harman, BOB)1700 (Due - Provider: Mary Harman RN)214 (Given - Provider: Hazel Lawson RN) 0842 (Given - Provider: Ashley Barton, BOB)1237 (Not Given - Provider: Ashley Barton RN - Reason: Patient/family refused)1652 (Given - Provider: Ashley Barton, BOB)2017 (Given - Provider: Hazel Lawson, BOB) 0933 (Given - Provider: Mayelin Cote, BOB) lisinopril (PRINIVIL;ZESTRIL) tablet 10 mg (CANCELED) 10 mg, Oral, DAILY, First dose on Wed10/19/16 at 1930, Until Discontinued, Routine 0844 (Given - Provider: Milli Akhtar RN)1249 (AUG Hold - Provider: Admin Adt - Reason: Transfer to a Procedural area)2036 (AUG Unhold - Provider: Admin Adt) lisinopril (PRINIVIL;ZESTRIL) tablet 10 mg (CANCELED) 10 mg, Oral, DAILY, First dose (after last modification) on Wed10/21/16 at 0700, Until Discontinued, Routine 0654 (Given - Provider: Hazel Lawson RN) lisinopril (PRINIVIL;ZESTRIL) tablet 10 mg (COMPLETED) 10 mg, Oral, ONCE, 1 dose, On Wed10/21/16 at 1730, Routine 1651 (Given - Provider: Ashley Barton, BOB) lisinopril (PRINIVIL;ZESTRIL) tablet 20 mg 20 mg, Oral, DAILY, First dose (after last modification) on Wed10/22/16 at 0900, Until Discontinued, Routine 0931 (Given - Provider: Mayelin Cote, BOB) meTOPROLOL succinate (TOPROL-XL) XL tablet 25 mg (CANCELED) 25 mg, Oral, DAILY, First dose on Wed10/19/16 at 1930, Until Discontinued, DO NOT CRUSH OR OPEN, Routine 0844 (Given - Provider: Milli Akhtar RN)1249 ([facility]G Hold - Provider: Admin Adt - Reason: Transfer to a Procedural area)2036 ([facility] Unhold - Provider: Admin Adt) meTOPROLOL succinate (TOPROL-XL) XL tablet 25 mg (CANCELED) 25 mg, Oral, DAILY, First dose (after last modification) on Wed10/21/16 at 0700, Until Discontinued, DO NOT CRUSH OR OPEN, Routine 0654 (Given - Provider: Hazel Lawson RN) meTOPROLOL tartrate (LOPRESSOR) tablet 25 mg 25 mg, Oral, EVERY 12 HOURS SCHEDULED (2 times per day), First dose on Wed10/21/16 at 1330, Until Discontinued, Routine 1324 (Given - Provider: Ashley Barton RN)2019 (Given - Provider: Hazel Lawson RN) 0931 (Given - Provider: Mayelin Cote, BOB) Mometasone-Formoterol (Dulera MDI) 100-5 mcg/actuation inhaler 2 puff 2 puff, Inhalation, EVERY 12 HOURS SCHEDULED (2 times per day), First dose on Wed10/19/16 at 2100, Until Discontinued, Therapeutic interchange for fluticasone-vilanterol inhaler per [employer] policy Rinse mouth after administration. 0847 (Given - Provider: Milli Akhtar RN)1249 (AUG Hold - Provider: Admin Adt - Reason: Transfer to a Procedural area)2036 ([facility] Unhold - Provider: Admin Adt)2144 (Given - Provider: Hazel Lawson RN) 0843 (Given - Provider: Ashley Barton, BOB)2016 (Given - Provider: Hazel Lawson RN) 0933 (Given - Provider: Mayelin Cote, BOB) pantoprazole (PROTONIX) tablet 40 mg 40 mg, Oral, DAILY, First dose on Wed10/19/16 at 1830, Until Discontinued, DO NOT CRUSH OR OPEN, Routine 0845 (Given - Provider: Milli Akhtar RN)1249 ([facility] Hold - Provider: Admin Adt - Reason: Transfer to a Procedural area)2036 ([facility] Unhold - Provider: Admin Adt) 0841 (Given - Provider: Ashley Barton RN) 0931 (Given - Provider: Mayelin Cote, BOB) sodium chloride 0.9 % flush 5 mL (CANCELED) 5 mL, Intravenous, 2 TIMES DAILY, First dose on Wed10/19/16 at 2100, Until Discontinued, Routine 0845 (Given - Provider: Milli Akhtar RN)1249 ([facility] Hold - Provider: Admin Adt - Reason: Transfer to a Procedural area)2036 ([facility] Unhold - Provider: Admin Adt) Continuous Medication Order 10/20/2016 10/21/2016 10/22/2016 sodium chloride 0.9% infusion (CANCELED) 1,000 mL, at 100 mL/hr, Intravenous, CONTINUOUS, Starting on Wed10/19/16 at 1736, Until Tu10/20/16 at 1624 0850 (New Bag - Provider: Milli Akhtar, RN)1249 ([facility] Hold - Provider: Admin Adt - Reason: Transfer to a Procedural area)1624 ([facility] Unhold - Provider: Admin Adt) sodium chloride 0.9% infusion (CANCELED) 75 mL/hr, Intravenous, CONTINUOUS, Starting on Wed10/20/16 at 1645, Until Wed10/21/16 at 0603 1639 (Restarted - Provider: Mary Harman RN)2225 (New Bag - Provider: Hazel Lawson RN) PRN Medication Order 10/20/2016 10/21/2016 10/22/2016 acetaminophen (TYLENOL) 650 mg/20.3 mL oral liquid 975 mg(Linked Group 1) 975 mg, Per G Tube, EVERY 6 HOURS PRN, Starting on Wed10/19/16 at 1804, Until [place] 10/22/16 at 1435, Pain, Fever, pain or temperature greater than 100 degrees F (measured by mouth), Routine 0845 (See Alternative - Provider: Milli Akhtar RN)1249 ([facility] Hold - Provider: Admin Adt - Reason: Transfer to a Procedural area)1624 ([facility] Unhold - Provider: Mary Harman RN)1948 (See Alternative - Provider: Mary Frederick RN) 0524 (See Alternative - Provider: Hazel Lawson, BOB)1852 (See Alternative - Provider: Ashley Barton, BOB) 0117 (See Alternative - Provider: Hazel Lawson, BOB)0931 (See Alternative - Provider: Mayelin Cote RN) acetaminophen (TYLENOL) suppository 975 mg(Linked Group 1) 975 mg, Rectal, EVERY 6 HOURS PRN, Starting on Wed10/19/16 at 1804, Until [place] 10/22/16 at 1435, Pain, Fever, pain or temperature greater than 100 degrees F (measured by mouth), Maximum dose of acetaminophen is 4000 mg from all sources in 24 hours., Routine 0845 (See Alternative - Provider: Milli Akhtar, BOB)1249 ([facility]G Hold - Provider: Admin Adt - Reason: Transfer to a Procedural area)1624 ([facility] Unhold - Provider: Mary Harman RN)1947 (See Alternative - Provider: Mary Frederick, BOB) 0524 (See Alternative - Provider: Hazel Lawson, BOB)1851 (See Alternative - Provider: Ashley Barton, BOB) 011 (See Alternative - Provider: Hazel Lawson RN)0931 (See Alternative - Provider: Mayelin Cote, BOB) acetaminophen (TYLENOL) tablet 975 mg(Linked Group 1) 975 mg, Oral, EVERY 6 HOURS PRN, Starting on 10/19/16 at 1804, Until [place] 10/22/16 at 1435, Pain, Fever, pain or temperature greater than 100 degrees F (measured by mouth), Maximum dose of acetaminophen is 4000 mg from all sources in 24 hours., Routine 0845 (Given - Provider: Milli Akhtar RN)1249 (AUG Hold - Provider: Admin Adt - Reason: Transfer to a Procedural area)162 ([facility] Unhold - Provider: Mary Harman RN)1947 (Given - Provider: Mary Frederick, BOB) 05 (Given - Provider: Hazel Lawson, BOB)1851 (Given - Provider: Ashley Barton, BOB) 011 (Given - Provider: Hazel Lawson, BOB)0931 (Given - Provider: Mayelin Cote, BOB) bisacodyl (DULCOLAX) suppository 10 mg 10 mg, Rectal, DAILY PRN, Starting on 10/19/16 at 1804, Until [place] 10/22/16 at 1435, Constipation, Administer if needed per patient's routine or if no bowel movement within 48 hours to achieve: 1) One bowel movement at least every 48 hours, AND 2) Without straining. If multiple bowel medications ordered, consider adding if docusate or milk of magnesia not sufficient., Routine 1249 (AUG Hold - Provider: Admin Adt - Reason: Transfer to a Procedural area)2036 ([facility] Unhold - Provider: Admin Adt) carboxymethylcellulose (REFRESH PLUS) 0.5 % ophthalmic drops 1 drop 1 drop, Both Eyes, 3 TIMES DAILY PRN, Starting on Wed10/19/16 at 2001, Until Wed10/22/16 at 1435, Dry Eyes, or eye discomfort, Routine 1249 (AUG Hold - Provider: Admin Adt - Reason: Transfer to a Procedural area)2036 ([facility] Unhold - Provider: Admin Adt) gelatin adsorbable (GELFOAM) sponge (CANCELED) ONCE PRN, Starting on Wed10/20/16 at 1353, Until [place] 10/22/16 at 1435, Intra-Operative (Intra-Procedure) 1353 (Given - Provider: Lise Segura MD - Comment: Gelfoam soaked in 5,000 Untis of Thrombin.) hydrALAZINE (APRESOLINE) injection 10 mg 10 mg, Intravenous, EVERY 1 HOUR PRN, Starting on Wed10/20/16 at 1624, Until [place] 10/22/16 at 1435, High Blood Pressure, for blood pressure > 150 for maximum of 2 doses then dayron HIGUERA, Use if 2 doses of labetalol ineffective in achieving goal., Routine 1321 (Given - Provider: Ashley Barton, BOB) labetalol (NORMODYNE,TRANDATE) injection 10 mg 10 mg, Intravenous, EVERY 1 HOUR PRN, Starting on Wed10/20/16 at 1624, Until [place] 10/22/16 at 1435, High Blood Pressure, for SBP > 150, hold for HR < 60 for maximum of 2 doses, then dayron HIGUERA., May repeat 10 mg in 15 minutes once if SBP goal not achieved, Routine 1455 (Given - Provider: Jennie Aquino, BOB) lidocaine (XYLOCAINE) 10 mg/mL (1 %) injection 3 mg 3 mg (0.3 mL), Subcutaneous, ONCE PRN, 1 dose, Starting on Wed10/19/16 at 1804, Until [place] 10/22/16 at 1435, for discomfort with PIV insertion, Routine 1249 (AUG Hold - Provider: Admin Adt - Reason: Transfer to a Procedural area)2036 ([facility] Unhold - Provider: Admin Adt) magnesium hydroxide (MILK OF MAGNESIA) oral suspension 10 mL 10 mL, Oral, DAILY PRN, Starting on Wed10/19/16 at 1804, Until [place] 10/22/16 at 1435, Constipation, Administer if needed per patient's routine or if no bowel movement within 48 hours to achieve: 1) One bowel movement at least every 48 hours, AND 2) Without straining. If multiple bowel medications ordered, consider adding if docusate not sufficient., Routine 1249 ([facility]G Hold - Provider: Admin Adt - Reason: Transfer to a Procedural area)2036 ([facility] Unhold - Provider: Admin Adt) ondansetron (ZOFRAN) injection 4 mg(Linked Group 2) 4 mg, Intravenous, EVERY 8 HOURS PRN, Starting on Wed10/20/16 at 2044, Until [place] 10/22/16 at 1435, Nausea, May repeat times one in 30 minutes if ineffective ondansetron (ZOFRAN) tablet 4 mg(Linked Group 2) 4 mg, Oral, EVERY 8 HOURS PRN, Starting on Wed10/20/16 at 2044, Until [place] 10/22/16 at 1435, Nausea, Vomiting, If multiple antiemetics are ordered, use ondansetron first. PO Preferred. If patient unable to take PO, may give IV if ordered. May repeat times one in 45 minutes if ineffective. , Routine papaverine injection (CANCELED) Administer over 2 Minutes, ONCE PRN, Starting on Wed10/20/16 at 1444, Until [place] 10/22/16 at 1435, Intra-Operative (Intra-Procedure), Routine 1444 (Given - Provider: Lise Segura MD) thrombin (bovine) (THROMBIN-JMI) solution (CANCELED) ONCE PRN, Starting on Wed10/20/16 at 1356, Until [place] 10/22/16 at 1435, Intra-Operative (Intra-Procedure) 1356 (Given - Provider: Lise Segura MD - Comment: Gelfoam soaked in 5,000 Untis of Thrombin.) Linked Groups Order Group 1: acetaminophen (TYLENOL) tablet 975 mgJump to med 975 mg, Oral, EVERY 6 HOURS PRN, Starting on Wed10/19/16 at 1804, Until [place] 10/22/16 at 1435, Pain, Fever, pain or temperature greater than 100 degrees F (measured by mouth), Maximum dose of acetaminophen is 4000 mg from all sources in 24 hours., Routine Or acetaminophen (TYLENOL) 650 mg/20.3 mL oral liquid 975 mgJump to med 975 mg, Per G Tube, EVERY 6 HOURS PRN, Starting on Wed10/19/16 at 1804, Until [place] 10/22/16 at 1435, Pain, Fever, pain or temperature greater than 100 degrees F (measured by mouth), Routine Or acetaminophen (TYLENOL) suppository 975 mgJump to med 975 mg, Rectal, EVERY 6 HOURS PRN, Starting on 10/19/16 at 1804, Until [place] 10/22/16 at 1435, Pain, Fever, pain or temperature greater than 100 degrees F (measured by mouth), Maximum dose of acetaminophen is 4000 mg from all sources in 24 hours., Routine Group 2: ondansetron (ZOFRAN) tablet 4 mgJump to med 4 mg, Oral, EVERY 8 HOURS PRN, Starting on Wed10/20/16 at 2044, Until [place] 10/22/16 at 1435, Nausea, Vomiting, If multiple antiemetics are ordered, use ondansetron first. PO Preferred. If patient unable to take PO, may give IV if ordered. May repeat times one in 45 minutes if ineffective. , Routine Or ondansetron (ZOFRAN) injection 4 mgJump to med 4 mg, Intravenous, EVERY 8 HOURS PRN, Starting on Tu10/20/16 at 2044, Until [place] 10/22/16 at 1435, Nausea, May repeat times one in 30 minutes if ineffective documented in this encounter Care Teams Extrusion Die Repairer Relationship Specialty Start Date End Date Nataliya Messina MD [address] [place] [address] PCP - General 10/02/11 01/11/22 documented as of this encounter
--- OUTSIDE RECORDS SUMMARY | 2024-01-05 02:48 | XMS_ITS | Encounter Summary ---
Author Organization [facility] [place] [address] Care Team Providers Care Mental Measurements Teacher Name Role Phone Nataliya Messina MD Primary Care Provider [phone] Reason for Visit * Reason Comments Follow-up 1 year f/u (was supp ose to have been seen in 6 months) Had a sharp pain last week. Takes NTG with relief Encounter Details Date Type Department Care Team (Late st Contact Info) Description 04/29/2015 11:00 AM EST Office Visit Cardiology at [address] [phone] Lauri Winn Jr., MD [address] [place] [address] [id number] ASCVD (arteriosclerotic cardiovascular disease); Essential hypertension; Hyperlipidemia Social History Tobacco Use Types Packs/Day Years [...] Sign Reading Time Taken Comments Blood Pressure 104/50 04/29/2015 11:06 AM EST Pulse 80 04/29/2015 11:06 AM EST Temperature - - Respiratory Rate - - Oxygen Saturation - - Inhaled Oxygen Concentration - - Weight 74.4 kg (164 lb) 04/29/2015 11:06 AM EST Height 170.2 cm (5' 7) 04/29/2015 11:06 AM EST Body Mass Index 25.69 04/29/2015 11:06 AM EST documented in this encounter Progress Notes * Lauri Winn Jr., MD - 04/29/2015 11:25 AM EST Subjective: Patient ID: Hieu Tillman is a 59 y.o. male. Chief Complaint Patient presents with ??? Follow-up 1 year f/u (was suppose to have been seen in 6 months) Had a sharp pain last week. Takes NTG with relief HPI He gets occasional sharp chest pain not with exertion. He sometimes takes a NTG with possible improvement. He has not had any exertional chest pain and no pain like he had before his stents. He gets out of breath with over exertion or bending over.His energy level is good. He denies palpitations, edema, PND, or orthopnea. He has occasional orthostatic dizziness. Review of Systems no bruising or bleeding Allergies Allergen Reactions ??? Contrast [Iodine And Iodide Containing Products] Anaphylaxis and Hives He has tolerated IV dye since with premedication. History of anaphylaxis as well. Current Outpatient Prescriptions Medication Sig Dispense Refill ??? metoprolol succinate (TOPROL-XL) 50 mg 24 hr tablet Take 1 tablet by mouth daily. 30 tablet 1 ??? atorvastatin (LIPITOR) 80 [...] Take 10 mg by mouth daily. ??? fluticasone (FLOVENT) 220 mcg/actuation inhaler Inhale 1 puff into the lungs 2 times daily. ??? FIBER CHOICE ORAL Take 1 tablet by mouth daily. ??? salmeterol (SEREVENT) 50 mcg/dose diskus inhaler Inhale 1 puff into the lungs 2 times daily. ??? aspirin 81 mg EC tablet Take 81 mg by mouth daily. ??? albuterol-ipratropium (COMBIVENT) 18-103 mcg/Actuation inhaler 2 Puff(s), Inh, Twice daily No current facility-administered medications for this visit. Patient Active Problem List Diagnosis ??? CAD (coronary artery disease) CARDIAC CATHETERIZATION [...] Premier) and PTCA of mid LCX ??? Tobacco abuse Quit 09/11/13, had been smoking 10 cigarettes prior to starting the patch, has been smoke free sinceusing the patch 10/09/13 Has been wearing patches 2 days, doing well smoke free ??? Chest pain ??? Hypertension ??? Hyperlipidemia ??? Emphysema/COPD ??? Carotid stenosis ??? PVD (peripheral vascular disease) R JAYA stent 12/07/11 ??? Low back pain radiating to right leg Objective: Physical Exam BP 104/50 mmHg Pulse 80 Ht 170.2 cm (5' 7) Wt 74.39 kg (164 lb) BMI 25.68 kg/m2 NAD No JVD/HJR Chest clear Cor RR, no murmur Abd benign Ext no edema Assessment and Plan: No angina- atypical pain not likely cardiac but ok to use NTG just in case Good BP control Lipids- due for labs later this year- continue to work on diet Encouraged to keep up activity Follow up yearly documented in this encounter Plan of Treatment Upcoming Encounters Date Type Department Care Team (Late st Contact Info) Description 01/10/2024 7:45 AM EDT Appointment [place] [phone] 01/21/2024 10:[address] [place] [place] [address] Heber Phillips MD [facility] [address] HEMATOLOGY/[place] [address] 03/28/2024 10:00 AM EDT Office Visit Hematology/Oncology at [address] [phone] Heber Phillips MD [facility] [address] HEMATOLOGY/[place] [address] Isabella Baker APRN [facility] [place] [address] documented as of this encounter Visit Diagnoses Diagnosis ASCVD (arteriosclerotic cardiovascular disease) Unspecified cardiovascular disease Essential hypertension Unspecified essential hypertension Hyperlipidemia Other and unspecified hyperlipidemia documented in this encounter Care Teams Mental Measurements Teacher Relationship Specialty Start Date End Date Nataliya Messina MD [address] [place] [address] PCP - General 10/02/11 01/11/22 documented as of this encounter
--- OUTSIDE RECORDS SUMMARY | 2024-01-05 02:48 | XMS_ITS | Encounter Summary ---
[place] [address] Care Team Providers Care Binder Coverstitch Name Role Phone Nataliya Messina MD Primary Care Provider [phone] Reason for Visit * Auth/Cert Specialty Diagnoses [...] Care Team (Late st Contact Info) Description 10/20/2016 1:06 PM EDT Anesthesia [place] [phone] Bi Salas MD [facility] [address] [place] [address] Anesthesia Record Procedure Summary Procedure Name Responsible Anesthesiologist Anesthesia Start Time Anesthesia Stop Time @ENDARTERECTOMY, CAROTID, VERTEBRAL,SUBCLAVIA N W\WO PATCH GRAFT (WRVU 21.16) (Right: Neck) Bi Salas MD 10/20/16 1306 10/20/16 1622 Events Date Time Event Comment 10/20/2016 1256 1306 Start 1308 AN Verify 1308 An Start Data 1315 An Induction 1318 An Intubation 1327 Anesthesia Ready 1349 Procedure Start 1400 ABG Data Arterial Blood Gas result: pH 7.262 pCO2 46.8 pO2 429 FiO2 61 %O2 Sat 98.7 HCO3 20.6 BE -6.4 Hb 13 Glucose 95 K 3.94 1418 Heparin 1427 Vascular Clamp ON 1430 Vascular Clamp OFF 1430 Quick Note SHUNTING 1510 Vascular Clamp ON 1514 Vascular Clamp OFF 1521 Protamine 1559 Extubation/LMA Out 1601 an stop data 1622 Recovery or ICU Handoff Mariela ent care was transferred to the destination unit staff after review of the patient's medical history, current anesthetic/surgical status and plan, according to the Provider Handoff Checklist. 1622 Stop Meds Name Total Midazolam 2 mg fentaNYL 100 mcg Propofol 230 mg Propofol INF 1,117.95 mg Rocuronium 50 mg PHENYLephrine 1,800 mcg ePHEDrine 15 mg Heparin 8,000 Units Protamine 40 mg Dexamethasone 8 mg Ondansetron 4 mg PHENYLephrine INF 6,790 mcg REMIfentanil INF 1.76 mg ceFAZolin 2 g Neostigmine 3 mg Glycopyrrolate 0.4 mg Dexmedetomidine 16 mcg HYDROmorphone 0.4 mg Lactated Ringers 1,200 mL * Agents Name O2 Air N2O Sevoflurane (et) * Blood No blood administrations on file. Lines, Drains, and Airways Type Details Placement Removal (RETIRED) Peripheral IV Line - Single Lumen 10/19/16; 1401; cephalic vein (lateral side of arm), right; renh-nyk-brolis catheter system; 18 gauge; bautista vasquez; no longer indicated, removed per physician, catheter/device intact; 10/22/16; 1206 10/19/16 1401 by Bautista Vasquez RN 10/22/16 1206 by Mayelin Cote RN ETT Mask Ventilation: Adjunct (2); ETT Type: Cuffed, Oral; ETT Size: 8 mm; Mac Blade: 4; Notes: Asleep, Pre-O2, Stylette; Attempts: 1; Laryngoscopy Grade: 1; ETT Placement Verified By: Auscultation, Capnometry; Secured at Teeth: 23 cm; Inserted by: OMARI; Removal Date: 10/20/16; Removal Time: 1559 10/20/16 1323 by Yanick Bray MD 10/20/16 1559 by Yanick Bray MD (RETIRED) Peripheral IV Line - Single Lumen 10/20/16; 1335; median cubital vein (antecubital fossa), right; 16 gauge; no longer indicated, removed per physician, catheter/device intact; 10/22/16; 1208 10/20/16 1335 by Yanick Bray MD 10/22/16 1208 by Mayelin Cote RN Arterial Line 10/20/16; 1335; radi al artery, left; 20 gauge; Sterile Gloves, Sterile Prep; no longer indicated, catheter intact; 10/20/16; 199910/20/16 1335 by Yanick Bray MD 10/20/161999 by Mary Frederick RN Urethral Catheter 10/20/16; 1336; Surg lorie longer than 2 hours, Physician order; indwelling double lumen catheter; 100% silicone; inserted at this facility; 1; 10; none; drainage bag to dependent drainage; 10/20/16; 2335 10/20/16 1336 by Sandy Alvarez RN 10/20/16 2335 by Hien Xie, HAZARDOUS MATERIALS HANDLER Incision 10/20/16; 1352; neck (carotid); 02/16/22 (LDA cleanup utility RA#[id number]); 1715 (LDA cleanup utility RA#[id number]) 10/20/16 1352 by Sandy Alvarez RN 02/16/22 1715 by Zeinab Govea documented in this encounter Social History Tobacco [...] OR Notes * Anesthesia Postprocedure Evaluation - Yanick Bray - 10/20/2016 5:30 PM EDT [facility] Department of Anesthesiology Post-procedure Note Patient: Hieu Tillman Procedure Summary Date Anesthesia Start Anesthesia Stop Room / Location 10/20/16 1306 1622 [facility] OR 14 / [facility] MAIN OR Procedure Diagnosis Surgeon Responsible Provider @ENDARTERECTOMY, CAROTID, VERTEBRAL,SUBCLAVIAN W\WO PATCH GRAFT (WRVU 21.16) (Right Neck) (right carotid stenosis, symptomatic) Omero Wills MD Cotoi, Daniel, MD All Anesthesia Providers: Anesthesiologist: Bi Salas MD Cripple Worker: Yanick Bray MD Last (1hr) Vitals: BP 130/64 (10/20/16 1700) Temp Pulse 78 (10/20/16 1715) Resp 14 (10/20/16 1715) SpO2 92 % (10/20/16 1715) Patient Location: PACU/[facility] Level of Consciousness: Awake and Alert Pain Management: Satisfactory Analgesia PONV: None Cardiovascular Status: At Baseline and Hemodynamically Stable Respiratory Status: At Baseline and Room Air Postoperative Fluid Status: Intravascular EUvolemia Possible Anesthetic Complications: NONE apparent at time of evaluation Final Primary Anesthesia Type: General (The anesthetic type performed was the same as planned.) Comments: Patient experienced significant emergence delirium and was difficult to redirect. Repeatedly grabbed at colin catheter. Gave Precedex on arrival to PACU which helped resolve delirium. YANICK BRAY MD * Anesthesia Preprocedure Evaluation - Bi Salas MD - 10/20/2016 9:52 AM EDT Pre-Anesthesia Evaluation for: Hieu Tillman a 61 y.o. male. Procedure(s): @ENDARTERECTOMY, CAROTID, VERTEBRAL,SUBCLAVIAN W\WO PATCH GRAFT (WRVU 21.16) Patient Active Problem List Diagnosis ??? Central artery occlusion of retina ??? CAD (coronary artery disease) CARDIAC CATHETERIZATION [...] leg Past Medical History: Diagnosis Date ??? Arthritis [...] ??? CATARACT REMOVAL Left [address] [facility] Social History Substance Use Topics ??? Smoking status: Former Smoker Packs/day: 1.00 Quit date: 09/11/2013 ??? Smokeless tobacco: Not on file ??? Alcohol use No Comment: Sober 22 years the summer History Drug Use No Allergies Allergen Reactions ??? Contrast [Iodine And Iodide Containing Products] Anaphylaxis and Hives He has tolerated IV dye since with premedication. History of anaphylaxis as well. Medications: MAR and/or home medications have been reviewed. Physical Exam: Vitals: 10/20/16 0738 BP: 128/65 Pulse: 84 Resp: 17 Temp: 36.6 ??C (97.9 ??F) Body mass index is 29.18 kg/(m^2). Height: 162.6 cm (5' 4) Weight - Scale: 77.1 kg (170 lb) Airway Assessment: Mallampati: III TM distance: >3 FB Neck ROM: full Cardiovascular Assessment: Rhythm: regular Pulmonary Assessment: breath sounds clear to auscultation Dental Assessment: (+) lower dentures and upper dentures Misc Assessment: IV access: Peripheral line Anesthesia Plan: ASA 3 general, with a(n) intravenous induction This is a 61 y.o. male admitted with right central retinal artery occlusion, found to have severe right ica occlusion here for carotid endarterectomy History of PVD, HTN, HLD, CAD s/p ptca LCFX, COPD Former tobacco Asa/plavix/statin Lisinopril/metoprolol Negative stress 04/2016 >4 mets LABS: Hgb 13.7, Platelets 498, INR 0.9, Cr 1.06 ALLERGIES: contrast ANESTHETIC HISTORY: No prior anesthetic documentation ANESTHETIC PLAN: GA with ETT Standard ASA monitoring, arterial line Adequate IV access Region - Major Vascular (carotid, aorta, iliac) Informed Consent: Anesthetic plan and risks discussed with patient. Use of blood products discussed with patient who consented to blood products. Plan discussed with attending and resident. PAT Staff Note documented in this encounter Plan of Treatment Upcoming Encounters Date Type Department Care Team (Late st Contact Info) Description 01/10/2024 7:45 AM EDT Appointment Hematology [place] [address] 01/21/2024 10:[address] [place] [address] Heber Phillips MD [facility] HEMATOLOGY/[place] [address] 03/28/2024 10:00 AM EDT Office Visit Hematology/Oncology at [address] [phone] Heber Phillips MD [facility] HEMATOLOGY/[place] [address] Isabella Baker APRN [facility] [place] [address] documented as of this encounter Visit Diagnoses Not on filedocumented in this encounter Administered Medications Inactive Administered Medications - up to 3 most recent administrations Medication Order MAR Action Action Date Dose Rate Site ceFAZolin (ANCEF) 1g in dextrose 5% 50mL PRN, Starting on Wed10/20/16 at 1346, Until Wed10/20/16 at 1622, Administer over 30 Minutes, Anesthesia Intra-op Given 10/20/2016 1:46 PM EDT 2 g dexamethasone (DECADRON) injection PRN, Starting on Wed10/20/16 at 1359, Until Wed10/20/16 at 1622, Anesthesia Intra-op, Routine Given 10/20/2016 1:59 PM EDT 8 mg dexmedetomidine (PRECEDEX) injection PRN, Starting on Wed10/20/16 at 1614, Until Wed10/20/16 at 1622, Anesthesia Intra-op, Routine Given 10/20/2016 4:19 PM EDT 8 mcg Given 10/20/2016 4:14 PM EDT 8 mcg ePHEDrine 5 mg/mL multi-dose injection PRN, Starting on Wed10/20/16 at 1327, Until Wed10/20/16 at 1622, Anesthesia Intra-op, Routine Given 10/20/2016 1:27 PM EDT 10 mg Given 10/20/2016 1:22 PM EDT 5 mg fentaNYL 50 mcg/mL multi-dose injection PRN, Starting on Wed10/20/16 at 1313, Until Wed10/20/16 at 1622, Pain, Anesthesia Intra-op, Routine Given 10/20/2016 1:13 PM EDT 100 mcg glycopyrrolate (ROBINUL) multi-dose injection PRN, Starting on Wed10/20/16 at 1546, Until Wed10/20/16 at 1622, Anesthesia Intra-op, Routine Given 10/20/2016 3:46 PM EDT 0.4 mg heparin (porcine) injection PRN, Starting on Wed10/20/16 at 1418, Until Wed10/20/16 at 1622, Anesthesia Intra-op, Routine Given 10/20/2016 2:18 PM EDT 8,000 Units HYDROmorphone (DILAUDID) injection PRN, Starting on Wed10/20/16 at 1619, Until Wed10/20/16 at 1622, Pain, Anesthesia Intra-op, Routine Given 10/20/2016 4:19 PM EDT 0.4 mg lactated Ringers infusion CONTINUOUS PRN, Starting on Wed10/20/16 at 1306, Until Wed10/20/16 at 1622, Anesthesia Intra-op New Bag 10/20/2016 1:06 PM EDT midazolam (PF) (VERSED) 1 mg/mL multi-dose injection PRN, Starting on Wed10/20/16 at 1306, Until Wed10/20/16 at 1622, Sleep, Anesthesia Intra-op, Routine Given 10/20/2016 1:06 PM EDT 2 mg neostigmine (PROSTIGMINE) multi-dose injection PRN, Starting on Wed10/20/16 at 1546, Until Wed10/20/16 at 1622, Anesthesia Intra-op, Routine Given 10/20/2016 3:46 PM EDT 3 mg ondansetron (ZOFRAN) injection PRN, Starting on Wed10/20/16 at 1532, Until Wed10/20/16 at 1622, Nausea, Anesthesia Intra-op, Routine Given 10/20/2016 3:32 PM EDT 4 mg PHENYLephrine (YOJANA-SYNEPHRINE) 20 mg in sodium chloride 250 mL (standard ADULT & Vito greater than 20kg) infusion CONTINUOUS PRN, Starting on Wed10/20/16 at 1341, Until Wed10/20/16 at 1622, Anesthesia Intra-op, Routine Rate/Dose Change 10/20/2016 3:29 PM EDT 80 mcg/min 60 mL/hr Rate/Dose Change 10/20/2016 2:53 PM EDT 50 mcg/min 37.5 mL /hr Rate/Dose Change 10/20/2016 2:49 PM EDT 70 mcg/min 52.5 mL /hr PHENYLephrine HCl in NS (PF) (YOJANA-SYNEPHRINE) 0.8 mg/10 mL (80 mcg/mL) multi-dose injection Syrg PRN, Starting on Wed10/20/16 at 1316, Until Wed10/20/16 at 1622, Anesthesia Intra-op, Routine Given 10/20/2016 3:39 PM EDT 80 mcg Given 10/20/2016 3:34 PM EDT 80 mcg Given 10/20/2016 3:32 PM EDT 80 mcg propofol (DIPRIVAN) 10 mg/mL bolus injection (Anesthesia) PRN, Starting on Wed10/20/16 at 1315, Until Wed10/20/16 at 1622, Anesthesia Intra-op Given 10/20/2016 3:28 PM EDT 20 mg Given 10/20/2016 3:27 PM EDT 10 mg Given 10/20/2016 1:15 PM EDT 200 mg propofol (DIPRIVAN) infusion CONTINUOUS PRN, Starting on Wed10/20/16 at 1340, Until e 10/20/16 at 1622, Anesthesia Intra-op, Routine Rate/Dose Change 10/20/2016 3:14 PM EDT 50 mcg/kg/min 23.1 mL/hr New Bag 10/20/2016 1:40 PM EDT 150 mcg/kg/min 69.4 mL/h r protamine injection PRN, Starting on Wed10/20/16 at 1521, Until Wed10/20/16 at 1622, Anesthesia Intra-op, Routine Given 10/20/2016 3:21 PM EDT 40 mg remifentanil (ULTIVA) 0.02 mg/mL IV infusion (ANESTHESIA) CONTINUOUS PRN, Starting on Wed10/20/16 at 1347, Until Wed10/20/16 at 1622, Anesthesia Intra-op Rate/Dose Change 10/20/2016 3:27 PM EDT 0.2 mcg/kg/min 46.3 mL/hr Rate/Dose Change 10/20/2016 3:15 PM EDT 0.15 mcg/kg/min 34 .7 mL/hr New Bag 10/20/2016 1:47 PM EDT 0.2 mcg/kg/min 46.3 mL/h r rocuronium (ZEMURON) multi-dose injection PRN, Starting on Wed10/20/16 at 1315, Until Wed10/20/16 at 1622, Anesthesia Intra-op, Routine Given 10/20/2016 1:15 PM EDT 50 mg documented in this encounter Care Teams Binder Coverstitch Relationship Specialty Start Date End Date Nataliya Messina MD [address] [place] [address] [address] [place] [address] PCP - General 10/02/11 01/11/22 documented as of this encounter
--- OUTSIDE RECORDS SUMMARY | 2024-01-05 02:48 | XMS_ITS | Encounter Summary ---
Author Organization [facility] [place] [address] Care Team Providers Care Heel Shaver Name Role Phone Nataliya Messina MD Primary Care Provider [phone] Reason for Visit * Reason Comments Blurred Vision * Auth/Cert Specialty Diagnoses / Procedures Referred [...] Care Team (Late st Contact Info) Description 10/19/2016 10:45 AM EDT Office [place] [address] Gina Marquis MD [facility] [place] [address] Central retinal artery occlusion of right eye Social History Tobacco Use Types Packs/Day Years [...] as of this encounter Miscellaneous Notes * Consult Note - Gina Marquis MD - 10/19/2016 10:45 AM EDT Images from the original note were not included. Hieu Tillman is a 61 y.o. male with known CAD, with: 1. Central retinal artery occlusion right eye, small preserved ciliary circulation. Classic [place]chaca red spot, very ischemic macula with near no light perception vision. Paracentesis performed by Dr. Rosas, digital massage, IOP 4 afterwards. Despite treatment urgently,poor visual prognosis with dense vision loss, severe ischemia, and afferent pupillary defect. Combigan instilled, 500mg PO diamox given. Mild periocular headache this morning. No true GCA symptoms. Plan: Fundus photos, OCT performed. Patient sent to ED for stroke work up per [facility] protocol. Follow up with Dr. Rosas in 3 months. Gina Marquis MD 10/19/2016 documented in this encounter Plan of Treatment Upcoming Encounters Date Type Department Care Team (Late st Contact Info) Description 01/10/2024 7:45 AM EDT Appointment Hematology [place] [address] 01/21/2024 10:[address] [place] [address] Heber Phillips MD [facility] HEMATOLOGY/[place] [address] 03/28/2024 10:00 AM EDT Office Visit Hematology/Oncology at [address] [phone] Heber Phillips MD [facility] DR HEMATOLOGY/[place] [address] Isabella Baker APRN [facility] [place] [address] documented as of this encounter Visit Diagnoses Diagnosis Central retinal artery occlusion of right eye Central artery occlusion of retina documented in this encounter Care Teams Heel Shaver Relationship Specialty Start Date End Date Nataliya Messina MD [address] [place] [address] PCP - General 10/02/11 01/11/22 documented as of this encounter
--- OUTSIDE RECORDS SUMMARY | 2024-01-05 02:48 | XMS_ITS | Encounter Summary ---
Author Organization [facility] [place] [address] Care Team Providers Care Nuclear Control Room Operator Name Role Phone Nataliya Messina MD Primary Care Provider [phone] Reason for Visit * Reason Comments Follow-up 1 year f/u ASCVD, Morales s had 3 episodes of SOB with exertion. No CP but heavy breathing. Was incontinent or had to urinate right away with these episodes Encounter Details Date Type Department Care Team (Late st Contact Info) Description 04/30/2016 9:30 AM EST Office Visit Cardiology at [address] [address] Lauri Winn Jr., MD [address] [place] [id number] ASCVD (arteriosclerotic cardiovascular disease); SOB (shortness of breath); Elevated blood pressure; Elevated cholesterol Social History Tobacco Use Types Packs/Day Years [...] Sign Reading Time Taken Comments Blood Pressure 128/60 04/30/2016 9:49 AM EST Pulse 72 04/30/2016 9:49 AM EST Temperature - - Respiratory Rate - - Oxygen Saturation - - Inhaled Oxygen Concentration - - Weight 78 kg (172 lb) 04/30/2016 9:49 AM EST Height 167.6 cm (5' 6) 04/30/2016 9:49 AM EST Body Mass Index 27.76 04/30/2016 9:49 AM EST documented in this encounter Progress Notes * Lauri Winn Jr., MD - 04/30/2016 9:30 AM EST Subjective: Patient ID: Britta Saeed is a 60 y.o. male. Chief Complaint Patient presents with ??? Follow-up 1 year f/u ASCVD, Has had 3 episodes of SOB with exertion. No CP but heavy breathing. Was incontinent or had to urinate right away with these episodes HPI He has had odd episodes of dyspnea coming on with or shortly after exertion, very severe but without chest pain. Two have been so bad he lost control of his bladder. They slowly relieved with hisinhaler or rest. He can identify no trigger. He can do the same level of activity comfortably the day after an event. He has a different sharp pain at rest which relieves with position change or NTG. Review of Systems no cough, sputum, fever, otherwise negative except as above Allergies Allergen Reactions ??? Contrast [Iodine And Iodide Containing Products] Anaphylaxis and Hives He has tolerated IV dye since with premedication. History of anaphylaxis as well. Current Outpatient Prescriptions Medication Sig Dispense Refill ??? budesonide-formoterol (SYMBICORT) 160-4.5 mcg/actuation HFA Aerosol Inhaler Inhale into the lungs 4 times daily. ??? metoprolol succinate (TOPROL-XL) 50 mg 24 [...] to right leg Objective: Physical Exam BP 128/60 (BP Location (NBP): Left arm, Patient Position: Sitting) Pulse 72 Ht 167.6 cm (5' 6) Wt 78 kg (172 lb) BMI 27.76 kg/m2 NAD No JVD/HJR Chest clear, no wheezing Cor RR, no murmur Abd benign Ext no edema EKG: NSR 72, APC, normal ST Results for BRITTA SAEED ( ) as of 04/30/2016 10:12 Ref. Range 02/05/2016 00:00 Chol, Total Latest Units: mg/dL 145 HDL Latest Units: md/dL 36 Triglycerides Latest Units: mg/dL 129 LDL Cholesterol Latest Units: mg/dL 90 Assessment and Plan: Odd episodes- more likely bronchospasm but could be ischemia- will need an exercise MIBI to assess.To try both NTG and inhaler for an episode. Trial of cutting dose of metoprolol to 1/2 HTN controlled Lipids- good numbers Follow up depends on result of MIBI documented in this encounter Plan of Treatment Upcoming Encounters Date Type Department Care Team (Late st Contact Info) Description 01/10/2024 7:45 AM EDT Appointment Hematology [place] [address] 01/21/2024 10:[address] [place] [address] Heber Phillips MD [facility] DR HEMATOLOGY/[place] [address] 03/28/2024 10:00 AM EDT Office Visit Hematology/Oncology at [address] [phone] Heber Phillips MD [facility] DR HEMATOLOGY/[place] [address] Isabella Baker APRN [facility] [place] [address] documented as of this encounter Procedures Procedure Name Priority Date/Time Associated Diagnosis Comments ECG SCAN 05/08/2016 12:00 AM EST documented in this encounter Results * SCAN DOC: ECG (05/08/2016 12:00 AM EST) Scanning Provider MEDIA MGR SCAN EXT O RDR/RSLT documented in this encounter Visit Diagnoses Diagnosis ASCVD (arteriosclerotic cardiovascular disease) Unspecified cardiovascular disease SOB (shortness of breath) Shortness of breath Elevated blood pressure Elevated blood pressure reading without diagnosis of hypertension Elevated cholesterol Pure hypercholesterolemia documented in this encounter Care Teams Nuclear Control Room Operator Relationship Specialty Start Date End Date Nataliya Messina MD [address] [place] [address] PCP - General 10/02/11 01/11/22 documented as of this encounter
--- OUTSIDE RECORDS SUMMARY | 2024-01-05 02:48 | XMS_ITS | Encounter Summary ---
Author Organization [facility] [place] [address] Care Team Providers Care Dowel Inspector Name Role Phone Nataliya Messina MD Primary Care Provider [phone] Reason for Referral * Diagnostic Test (Routine) - Specialty Diagnoses / Procedures Referred By Contfatimah t Referred To Contact Procedures NM Myocardial Perfusion Stress Rest Lauri Winn Jr., MD [address] [place] [address] [place] [address] Referral ID Status Reason Start Date Expiration Date Visits Requested Visits Authorized [id number] Specialty Service Requested 05/11/2016 11/07/2016 1 1 Encounter Details Date Type Department Care Team (Late st Contact Info) Description 05/11/2016 10:00 AM EST Ext Surgery or Single Event [facility] [address] [facility] [place] [address] Lauri Winn Jr., MD [address] [place], [place] [id number] ESCAMILLA (dyspnea on exertion); ASCVD (arteriosclerotic cardiovascular disease) Social History Tobacco [...] AM EDT Appointment Hematology [place] [address] 01/21/2024 10:[address] [place] [address] Heber Phillips MD [facility] [address] HEMATOLOGY/[place] [address] 03/28/2024 10:00 AM EDT Office Visit Hematology/Oncology at [address] [phone] Heber Phillips MD [facility] [address] HEMATOLOGY/[place] [address] Isabella Baker APRN [facility] [address] [place] [address] documented as of this encounter Procedures Procedure Name Priority Date/Time Associated Diagnosis Comments ECG SCAN 05/11/2016 12:00 AM EST NM EXERCISE STRESS AND REST MYOCARDIAL PERFUSION Routine 05/11/2016 documented in this encounter Results * NM Myocardial Perfusion Stress Rest (05/11/2016) Anatomical Region Laterality Modality Other Narrative 05/11/2016 MIBI Exercise Stress Test- Final Report ?? Hieu Tillman : 1955 [facility], [address] [facility] [address] Primary Physician: ??Nataliya Messina MD ??Indication: dyspnea on exertion, ASCVD Date: 05/11/2016 Summary: Max Exercise: ??5:15, 2:15 ??Stage II ??Stevo ?? 7 ?? METS Max HR: ? 124< 85 % PMR(135) Max BP: ??199/[address] change: ??none Reason for Termination: dyspnea Imaging: ??Normal perfusion and wall motion ??EF 78 % Impression: no ischemia on medication, fair exercise tolerance Details: Medication: on metoprolol Risk Factors: ??Known ASCVD Resting EKG: NSR 81, normal ?Resting BP: 140/79 Exercise per Stevo protocol Arrhythmias: none Recovery: ??BP ?? -> ?? 174/80 ?HR ?? -> 90 Arrhythmias: none Rest Images: 23.3 mC MIBI, Spect-normal Stress Images: ??10 mC MIBI, Spect-normal Electronically signed: Lauri Winn Jr, MD [facility] ??Date: 05/11/2016 Historical Provider MD STRANGE NM ORDERABLES * SCAN DOC: ECG (05/11/2016 12:00 AM EST) Scanning Provider MEDIA MGR SCAN EXT O RDR/RSLT documented in this encounter Visit Diagnoses Diagnosis ESCAMILLA (dyspnea on exertion) Other dyspnea and respiratory abnormality ASCVD (arteriosclerotic cardiovascular disease) Unspecified cardiovascular disease documented in this encounter Care Teams Dowel Inspector Relationship Specialty Start Date End Date Nataliya Messina MD [address] [place] [address] PCP - General 10/02/11 01/11/22 documented as of this encounter
--- OUTSIDE RECORDS SUMMARY | 2024-01-05 02:48 | XMS_ITS | Encounter Summary ---
[place] [address] Care Team Providers Care Residential Finish Carpenter Name Role Phone Nataliya Messina MD Primary Care Provider [phone] Encounter Details Date Type Department Care Team (Late st Contact Info) Description 09/17/2015 Telephone Cardiology at [address] [phone] Zita Brennan Social History Tobacco [...] Miscellaneous Notes * Telephone Encounter - Zita Osorio - 09/17/2015 9:19 AM EDT Spoke with the subject yesterday and completed his 2 year ABSORB III follow up questionnaire. Subject denies any concerns and is agreeable to my calling again in 1 year. documented in this encounter Plan of Treatment Upcoming Encounters Date Type Department Care Team (Late st Contact Info) Description 01/10/2024 7:45 AM EDT Appointment Hematology [place] [phone] 01/21/2024 10:[address] [place] [address] Heber Phillips MD [facility] DR HEMATOLOGY/[place] [address] 03/28/2024 10:00 AM EDT Office Visit Hematology/Oncology at [address] [phone] Heber Phillips MD [facility] DR HEMATOLOGY/[place] [address] Isabella Baker APRN [facility] [place] [address] documented as of this encounter Visit Diagnoses Not on filedocumented in this encounter Care Teams Residential Finish Carpenter Relationship Specialty Start Date End Date Nataliya Messina MD [address] [place] [address] PCP - General 10/02/11 01/11/22 documented as of this encounter
--- OUTSIDE RECORDS SUMMARY | 2024-01-05 02:48 | XMS_ITS | Encounter Summary ---
Author Organization [facility] [place] [address] Care Team Providers Care Carrot Tier Name Role Phone Nataliya Messina MD Primary Care Provider Encounter Details Date Type Department Care Team (Late st Contact Info) Description 10/19/2016 [place]phone [place] [phone] Gina Marquis MD [facility] DR OPHTHALM[place]Y [place] [address] Social History Tobacco Use Types Packs/Day Years [...] encounter Miscellaneous Notes * Telephone Encounter - Aaliyah Quispe COT - 10/19/2016 8:54 AM EDT Call from PCP office stating pt came in today with sudden loss of va OD this AM. Know h/o CAD. No cardiovasc symptoms No reg Oph known WTW now documented in this encounter Plan of Treatment Upcoming Encounters Date Type Department Care Team (Late st Contact Info) Description 01/10/2024 7:45 AM EDT Appointment Hematology [place] [address] 01/21/2024 10:[address] [place] [address] Heber Phillips MD [facility] HEMATOLOGY/[place] [address] 03/28/2024 10:00 AM EDT Office Visit Hematology/Oncology at [address] [phone] Heber Phillips MD [facility] DR HEMATOLOGY/[place] [address] Isabella Baker APRN [facility] DR [place] [address] documented as of this encounter Visit Diagnoses Not on filedocumented in this encounter Care Teams Carrot Tier Relationship Specialty Start Date End Date Nataliya Messina MD [address] [place] [address] [address] [place] [address] PCP - General 10/02/11 01/11/22 documented as of this encounter
--- OUTSIDE RECORDS SUMMARY | 2024-01-05 02:48 | XMS_ITS | Encounter Summary ---
Author Organization [facility] [address] Care Team Providers Care Records Assistant Name Role Phone Nataliya Messina MD Primary Care Provider [phone] Encounter Details Date Type Department Care Team (Latest Contact Info) Description 10/15/2014 12:30 PM EDT Ancillary Appointment [place] [phone] [place], [place] PAD (peripheral artery disease); Carotid stenosis, bilateral Social History Tobacco Use Types Packs/Day Years [...] AM EDT Appointment Hematology [place] [phone] 01/21/2024 10:[address] [place] [address] Heber Phillips MD [facility] HEMATOLOGY/[place] [address] 03/28/2024 10:00 AM EDT Office Visit Hematology/Oncology at [address] [phone] Heber Phillips MD [facility] DR HEMATOLOGY/[place] [address] Isabella Baker APRN [facility] [place] [address] documented as of this encounter Procedures Procedure Name Priority Date/Time Associated Diagnosis Comments NALDO, LEGS, MULTIPLE LEVELS Routine 10/15/2014 12:30 PM EDT PAD (peripheral artery disease) CAROTID DUPLEX, BILATERAL Routine 10/15/2014 12:30 PM EDT Carotid stenosis, bilateral documented in this encounter Results * Cerebrovascular Duplex, Bilateral (10/15/2014 12:30 PM EDT) VB Text Report Department: Vascular Surgery Lab Patient: [id number] (BRITTA SAEED) CPT Code: 13544 ICD-9: 447.1 Referring Physician: KRISTAN PATRICK Indication: ?? f/u carotid disease, ? progression ICD9 Diagnosis Code: 447.1 Findings: ICA Proximal, Right ? PSV (cm/s): 384 ? EDV (cm/s): 74 ? ICA/CCA: 4.1 ? Plaque Structure: Mixed Echogenic ? Plaque Surface: Irregular ? %Stenosis: 50-79% ICA Distal, Right ? PSV (cm/s): 80 ? EDV (cm/s): 19 ? ICA/CCA: 0.9 CCA Distal, Right ? PSV (cm/s): 93 ? EDV (cm/s): 17 ? %Stenosis: <50% CCA Proximal, Right ? PSV (cm/s): 143 ? EDV (cm/s): 22 External Carotid Artery, Right ? PSV (cm/s): 205 ? EDV (cm/s): 30 ? %Stenosis: >50% Vertebral, Right ? PSV (cm/s): 56 ? EDV (cm/s): 13 ? Direction of Flow: Antegrade ICA Proximal, Left ? PSV (cm/s): 99 ? EDV (cm/s): 24 ? ICA/CCA: 1.1 ? Plaque Structure: Mixed Echogenic ? Plaque Surface: Irregular ? %Stenosis: 16-49% ICA Distal, Left ? PSV (cm/s): 80 ? EDV (cm/s): 26 ? ICA/CCA: 0.9 CCA Distal, Left ? PSV (cm/s): 91 ? EDV (cm/s): 21 ? %Stenosis: Minimal CCA Proximal, Left ? PSV (cm/s): 155 ? EDV (cm/s): 26 External Carotid Artery, Left ? PSV (cm/s): 108 ? EDV (cm/s): 21 ? %Stenosis: <50% Vertebral, Left ? PSV (cm/s): 55 ? EDV (cm/s): 15 ? Direction of Flow: Antegrade Interpretation: RIGHT: There is irregular plaque in the common carotid artery causing 30-35% stenosis by electronic calipers. There is irregular mixed echogenic plaque in the proximal internal carotid artery causing 50-79 % stenosis when compared to the more distal internal carotid artery. There is a >50% stenosis in the ECA. The bifurcation level is in the mid [...] 3.93 ? 16-49% ? 118 ?? 1.42 Current Exam ? 50-79% ? 384 ?? 4.13 ? 16-49% ? 99 ?1.09 Electronically Signed by: KRISTAN PATRICK on 2014-10-22 01:11:52 PM [facility] VB Text Report End of Report [facility] 10/15/2014 12:3 0 PM EDT Kristan Patrick MD VASCULAR ORDERABLES [facility] * NALDO, legs, multiple levels (10/15/2014 12:30 PM EDT) VB Text Report Department: Vascular Surgery Lab Patient: [id number] (BRITTA SAEED) CPT Code: 73627 ICD-9: 440.21 Referring Physician: KRISTAN PATRICK Indication: f/u PVOD ICD9 Diagnosis Code: 440.21 Diabetes Mellitus: No Definitions: ?? NALDO = Ankle / Brachial Systolic Pressure Index, TBI = Toe / Brachial Systolic Pressure Index Findings: Right ?Pressure (mm Hg) ?? NALDO ??Waveform ?? Dorsalis Pedis (Ankle) Artery ?78 ?0.59 ??Biphasic ?? Posterior Tibial (Ankle) Artery ??93 ?0.70 ??Biphasic ?? Left ? Pressure (mm Hg) ?? NALDO ??Waveform ? Dorsalis Pedis (Ankle) Artery ?95 ?0.72 ??[place]-Biphasic ?? Posterior Tibial (Ankle) Artery ??94 ?0.71 ??Biphasic ? Interpretation: RIGHT: Moderate lower extremity arterial occlusive [...] ??0.64(+.05) 0.76(+.16) ---- ? 0.70(+.09) 0.75(+.14) ---- Current ? 0.59(-.05) 0.70(-.06) ---- ? 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
--- OUTSIDE RECORDS SUMMARY | 2024-01-05 02:48 | XMS_ITS | Encounter Summary ---
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, right right carotid stenosis, symptomatic Procedures @ENDARTERECTOMY, CAROTID, VERTEBRAL,SUBCLAVIAN W\WO PATCH GRAFT (WRVU 21.16) Referral ID Status Reason Start Date Expiration Date Visits Re quested Visits Authorized [id number] 1 1 Encounter Details Date Type Department Care Team (Late st Contact Info) Description 10/20/2016 1:14 PM EDT - 10/20/2016 5:10 PM EDT Surgery [place] [address] Lise Segura MD [facility] [place] [address] @ENDARTERECTOMY, CAROTID, VERTEBRAL,SUBCLAVIAN W\WO PATCH GRAFT (WRVU 21.16) Social History Tobacco Use Types Packs/Day Years [...] 11:54 AM EDT Discharge Summary Patient Name: Britta Tillman Patient Age: 61 y.o. Language: Citizen Of [place] Race: White Ethnicity: Not nor Admit date: [...] medication. He was last seen by his pipe fitter marine, Dr. Whitt, in April of 2016, at [...] or questions please call our office at [phone] DWAYNE Velazquez, marine gear keeper Nurse Clinician For issues on weeknights after 5pm and weekends please call [phone] and ask for the Vascular Fellow assistant golf professional. General Instructions None Future Appointments and Orders Future Appointments Provider Department Dept Phone 11/17/2016 10:30 AM Vianca Castillo [place] Vascular Lab [phone] 11/17/2016 11:15 AM Lise Segura MD Vascular Surgery [phone] 11/19/2016 1:30 PM Anshu Michaud MD Neurology [phone] 01/26/2017 11:00 AM Gucci Rosas MD Ophthalmology [phone] Check-in: [facility] 4B. 05/20/2017 9:20 AM Lauri Winn Jr., MD Cardiology at [place] [phone] Future Orders Complete By Expires Carotid Duplex, Unilateral [VAS2 Custom] 11/21/2016 (Approximate) 10/22/2017 Process Instructions: There is no in-house vascular cardiac cath lab manager available on weeknights (5pm-8am), weekends, or holidays. IF THIS IS A REQUEST FOR AN EMERGENT STUDY DURING THOSE HOURS, please have the senior provider responsible for the patient page the Vascular Surgery Fellow/Senior Resident assistant golf professional to discuss options. Scheduling Instructions: Questions: Laterality: Right Lower limb right segments: Other Is there a stent?: No Indication for study/signs & symptoms: s/p right carotid endarterectomy Question to be answered: patency Which DH location will this be performed?: [place] Referral to Home Health - at DISCHARGE [[id number] CPT(R)] As directed Process Instructions: Scheduling Instructions: DOCUMENTATION FOR VNA SERVICES (INCLUDING THOSE PATIENTS WITH MEDICARE COVERAGE REQUIRING HOME VNA SERVICES AND/OR HOSPICE SERVICES) PATIENT'S LOCATION: [place]a [place] [address] (home) Cell: No relevant phone numbers on file. Multimedia Services Manager's Name: Patient In discussion with the attending physician, it is certified that this patient is under their care and that they, or a Nurse Practitioner,Clinical Nurse specialist or Physician Machine Maintenance Mechanic who is working directly with them, had [...] re health issues HOME HEALTH CARE AGENCY: [facility] PHONE: [phone] FAX: [phone] Start of care: 24-48 hours of discharge Please note that any additional orders needs or changes will need to be obtained from this patient's PCP: Nataliya Messina MD [address] / [facility] [address] All A agencies which cover the area of patient's residence have been reviewed, either verbally ruthy writing, and patient/family have chosen the home health care agency noted Questions: Agency name and contact information: [facility] [address] [facility] Patient location post discharge: home What services are requested: Registered Nurse Start date: Responsible MD post discharge contact info: PCP Primary Care Provider: Nataliya Messina MD [address] / [facility] [address] Discharge References/Attachments None documented in this encounter [...] or questions please call our office at [phone] DWAYNE Velazquez, marine gear keeper Nurse Clinician For issues on weeknights after 5pm and weekends please call [phone] and ask for the Vascular Fellow assistant golf professional. documented in this encounter Medications at Time [...] Cote RN - 10/22/2016 12:13 PM EDT Britta Tillman discharged to Home by private car [...] MSW - 10/22/2016 9:28 AM EDT The patient/sales and service representative has been provided a list of [...] of discharge: 10/22. Referral routed to the Optical Model Maker And Tester for matching with agency/vendor and to provide any required information. * Marcial Padilla MD - 10/22/2016 7:26 AM EDT Neurology Progress Note Patient Name: Britta Tillman Admit Date: 10/19/2016 Primary Attending: Lise Segura MD Patient ID: Britta Tillman is a 61 y.o. right handed [...] L Elbow flexion 5/5 R, 5/5 L Jig Hand LE: 5/5 R, 5/5 L Hip flexion [...] right cervical internal carotid. Assessment / Recommendations: Britta Tillman is a 61 y.o. right handed [...] MD Neurology Resident PGY 3 Vascular Neurology 2553 Associated attestation - Denisse Sheffield MD - [...] 6:16 AM EDT Cardiac/Telemetry Nursing Progress Note [phone] Subjective: No events noted by RN, tele [...] EDT Vascular Surgery Progress Note Patient ID Britta Tillman is a 61 y.o. male with [...] None New Studies None Assessment & Plan Britta Tillman is a 61 y.o. male 1 [...] UOP Heme: ASA, plavix (coronary stents in 2014) Endo: AMPARO ID: post-op ancef complete Tubes/Lines/Drains: PIVs Prophylaxis: Ambulatory Dispo: [facility] Enedelia balbuena 3040 10/21/2016 7:47 AM * Cassia Howell MD - 10/21/2016 7:21 AM EDT Neurology Progress Note Patient Name: Britta Tillman Admit Date: 10/19/2016 Primary Attending: Lise Segura MD Patient ID: Britta Tillman is a 61 y.o. right handed [...] L Elbow flexion 5/5 R, 5/5 L Jig Hand LE: 5/5 R, 5/5 L Hip flexion [...] right cervical internal carotid. Assessment / Recommendations: Britta Tillman is a 61 y.o. right handed [...] -CUS -MRI brain wo contrast, MRA head/neck -PT/OT/SPLUNK DASHBOARD DEVELOPER -follow up with ophthalmology-retinal specialist in 3 [...] Cassia Howell MD Neurology Resident Vascular Neurology 0871 Associated attestation - Anshu Michaud MD - [...] PM EDT Vascular Surgery Post Op Check Britta Tillman is a 61 y.o. male status [...] intact, non-focal, moving all extremities purposefully. A/P: Britta Tillman is a 61 y.o. male status [...] at bedside. 1955: A-line d/c'd by Mary ROJAS. 2009: Report called to [facility] and pt placed in for transportation to [facility]. * Lise Segura MD - 10/20/2016 5:59 [...] AM EDT Stroke Rounding Note Patient Name: Britta Tillman Patient Age/Sex: 61 y.o. male Hospital [...] and plan. Please page Vascular Neurology at #[phone] with any questions. Pushpa Kearney APRN Personal Pager #[phone] [place] [address] * Ingrid Benjamin - 10/20/2016 7:58 AM EDT Vascular Surgery - Consult Note Patient Name: Britta Tillman : [id number] MR#: [id number] 10/19/2016 Hospital Day 1 day ID: Mr. [...] 81 mg, 81 mg, Oral, Daily, Marcial aPdilla MD ??? atorvastatin (LIPITOR) tablet 80 mg, [...] mg, 0.4 mg, Sublingual, Q5 Min PRN, aMrcial Padilla MD ??? pantoprazole (PROTONIX) tablet 40 [...] mg, 0.3 mL, Subcutaneous, Once PRN, Marcial Padilla MD ??? sodium chloride 0.9% infusion, 1,000 [...] cells. Midline structures are unremarkable. ?? MRA [place]: The intracranial vessels are normal [...] my independent observations I agree with Dr. Min's assessment and plan. I summary, the patient [...] benefits. For risks, I specifically cited stroke, UT, , CN injury, infection, bleeding and others. He expressed understanding and asked that we proceed. He denied any recent chestpain, and he stated that his breathing is fine as long as he gets his asthma inhalers timely. We will begin soon. Lise Segura M.D. Section of Vascular Surgery * Cassia Howell MD - 10/20/2016 6:21 AM EDT Neurology Progress Note Patient Name: Britta Tillman Admit Date: 10/19/2016 Primary Attending: Lisa Ford MD Patient ID: Britta Tillman is a 61 y.o. right handed [...] his eye. Does haveheadache in the right mormonism area this AM. Got tylenol. Medications: Scheduled [...] L Elbow flexion 5/5 R, 5/5 L Jig Hand LE: 5/5 R, 5/5 L Hip flexion [...] right cervical internal carotid. Assessment / Recommendations: Britta Tillman is a 61 y.o. right handed [...] -CUS -MRI brain wo contrast, MRA head/neck -PT/OT/SPLUNK DASHBOARD DEVELOPER -follow up with ophthalmology-retinal specialist in 3 [...] Cassia Howell MD Neurology Resident Vascular Neurology 2941 Associated attestation - Anshu Michaud, MD - 10/20/2016 8:10 PM EDT Neurology [...] Neurology Admission History and Physical Patient name: Britta Tillman Date of : 1955 PCP: Nataliya Messina MD Onset of symptoms (if witnessed): 6:30 AM Last known well: 9:30 PM, 10/18 CC: right eye central retinal artery occlusion HPI: Britta Tillman is a 61 y.o. right handed [...] AM after presenting to his PCP. The digital music instructor, (Dr. Yao) evaluated the patient and performed [...] Social History Narrative Lives with his in [place], [place]. 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 [...] L Elbow flexion 5/5 R, 5/5 L Jig Hand LE: 5/5 R, 5/5 L Hip flexion [...] of the sensory modalities 2-Severe kee-inattention or kee-inattention to more than one modality TOTAL SCORE: 1 Labs: No results found for this or any previous visit (from the past 24 hour(s)). Diagnostic Tests and Imaging: Head CT w/out: preliminary read by neurology service: no intracranial infarction (final read pending) Swallow Screen Results: PASSED (All YES responses) Time 3:05 PM Assessment and Plan: Britta Tillman is a 61 y.o. right handed with a PMH of CAD (s/p stent [id number]), HTN, HLD, COPD/Emphysema, carotid stenosis, PVD (R [...] EKG -Telemetry -CUS -MRI brain wo contrast -PT/OT/SPLUNK DASHBOARD DEVELOPER -follow up with ophthalmology-retinal specialist in 3 [...] Cassia Howell MD Neurology Vascular Neurology Pager [phone] Standard [facility] Swallow Screen: This screen is to be [...] diet as medical provider deems appropriate. Consider SPLUNK DASHBOARD DEVELOPER consult for full evaluation and diet recommendations. [...] of two midnights or is on the [facility] inpatient only procedure list (status C) due [...] PM EDT Pt returned to room by FLIGHT CONTROL SPECIALIST about 1700, family @ his side. He has been seen by neurosurgery team, isaware he will be admitted to the floor. Call escobar in reach. * Bautista Coker RN - 10/19/2016 4:16 PM EDT To MRI by RN * Bautista Coker RN - 10/19/2016 3:36 PM EDT Pt has returned from vascular by environmental health technician. Family in room @ his side, call escobar in reach. * Bautista Coker RN - 10/19/2016 3:05 PM EDT Pt to vascular by volunteer. * Bautista Coker RN - 10/19/2016 2:52 PM EDT Neurology team in to assess pt. * Bautista Coker RN - 10/19/2016 2:18 PM EDT Pt to CT volunteer. * Belen Garcia MD - 10/19/2016 1:38 PM EDT Britta Tillman is an 61 y.o. male who presents to the ED with: Chief Complaint Patient presents with ??? Eye Problem I saw this patient at 1:38 PM History of Present Illness Britta Tillman is a 61 y.o. male with [...] visual field is black. He presented to [facility] ED who transferred him to [facility] Ophthalmology. He was diagnosed with central [...] evaluation and management MDM and A/P MDM: Britta Tillman is a 61 y.o. male with [...] recommendations Belen Garcia PGY-2 Emergency Medicine Pager: [phone] *This note was dictated with [employer] software. Belen Garcia MD Resident 10/20/16 0112 [...] serosanguinous @ start of shift, unchanging O/N, MD aware, dressing slightly loose, but intact. H/a [...] Jessica Lopez - 10/20/2016 4:49 PM EDT [facility] Operative Note Patient Name: Britta Tillman : [id number] MR#: [id number] Case Date: 10/20/2016 ?? Surgeon: Surgeon(s) and [...] Implant Name Type Inv. Item Serial No. Orthopedic Radiologic Technologist Lot No. LRB No. Used Action PATCH,BIOL,XENOSURE,.8X8CM ([id number]) - [id number] IMPLANTS PATCH,BIOL,XENOSURE,.8X8CM ([id number]) ? [employer] [facility] [employer] - [id number] Right 1 Implanted ?? Infection Bundle used? [...] carotid artery in standard fashion. Using a [place] elevator, endarterectomy of the common carotid and [...] PM EDT Brief Operative Note Patient Name: Britta Tillman : [id number] MR#: [id number] Case Date: 10/20/2016 Surgeon: Surgeon(s) and Role: [...] Implant Name Type Inv. Item Serial No. Orthopedic Radiologic Technologist Lot No. LRB No. Used Action PATCH,BIOL,XENOSURE,.8X8CM ([id number]) - [id number] IMPLANTS PATCH,BIOL,XENOSURE,.8X8CM ([id number]) [employer] - [id number] Right 1 Implanted Infection Bundle used? N/A [...] Handling Outcome: Ongoing (Interventions Implemented as Appropriate) 10/20/16 08 Restraint Interventions Safety Promotion/Fall Prevention fall prevention program maintained Goal: Infection Control Outcome: Ongoing (Interventions Implemented as Appropriate) 10/20/16816 Safety Interventions Isolation Precautions standard precautions maintained Goal: Discharge Needs Assessment Outcome: Ongoing (Interventions Implemented as Appropriate) 10/20/16816 Discharge Needs Assessment Concerns To Be Addressed adjustment to diagnosis/illness concerns Goal: Interdisciplinary Rounds/Family Conf Outcome: Ongoing (Interventions Implemented as Appropriate) 10/20/16816 Interdisciplinary Rounds/Family Conf Participants nursing Problem: Stroke [...] NOTE: OUTCOME SUMMARY: VSS. No resp distress. MARCO ANTONIO, follows commands, unable to see out of [...] none Primary Care Provider: Nataliya Messina MD [phone] Patient/Caregiver Goals of Treatment: survival Potential Needs [...] transition of care planning. SUNNI Cotter Pager: [phone] * Plan of Care - Laurie Npaoles RN - 10/20/2016 3:40 AM EDT Problem: Patient Care Overview Goal: Plan of Care Review Outcome: Ongoing (Interventions Implemented as Appropriate) 10/20/16 0335 Coping/Psychosocial Plan Of Care Reviewed With patient [...] this time in hospital course [ ] Residential Facility Goal: Fall Prevention-Safe Patient Handling Outcome: [...] Control Outcome: Ongoing (Interventions Implemented as Appropriate) 10/19/16 19410/19/162020 Safety Interventions Isolation Precautions standard precautions maintained [...] Vascular Surgery - Consult Note Patient Name: Britta Tillman : [id number] MR#: [id number] 10/19/2016 Hospital Day 0 days ID: We have been asked by the Neurology service to evaluate Britta Tillman for R ICA stenosis. HPI: Mr. [...] medication. He was last seen by his pipe fitter marine, Dr. Whitt, in April of 2016, at [...] Social History Narrative Lives with his in [place], [place]. 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 [...] Vascular Surgery Service * ED Triage - Britta San RN - 10/19/2016 2:05 PM EDT [...] facial droop noted. Pt is on the cotton broker showing a NSR. Respirations are regular. documented in this encounter Plan of Treatment Upcoming Encounters Date Type Department Care Team (Late st Contact Info) Description 01/10/2024 7:45 AM EDT Appointment Hematology [place] [address] 01/21/2024 10:[address] [place] [address] Heber Phillips MD [facility] DR HEMATOLOGY/[place] [address] 03/28/2024 10:00 AM EDT Office Visit Hematology/Oncology at [address] [id number] Heber Phillips MD [facility] DR HEMATOLOGY/[place] [address] Isabella Baker APRN [facility] [place] [address] Scheduled Orders Name Type Priority Associated Diagnoses Orde r Schedule EKG 12 Lead ECG STAT Central artery occlusion of retina, right One Time for 1 Occurrences starting 10/19/2016 until 10/19/2016 documented as of this encounter Procedures Procedure Name Priority Date/Time Associated Diagnosis Comments SAP SD ANALYST SCAN 10/23/2016 12:00 AM EDT TRANSCRANIAL DUPLEX [...] Text Report Department: Vascular Surgery Lab Patient: [id number] (BRITTA TILLMAN) CPT: 97553 ICD10: H34.11 Referring Physician: LISE SEGURA ?? [...] MD VASCULAR ORDERABLES VASCUBASE * SCAN DOC: SAP SD ANALYST (10/23/2016 12:00 AM EDT) Anatomical Region Laterality Modality Other Narrative 10/23/2016 12:00 AM EDT Ordered by an unspecified provider. Scanning Provider MEDIA MGR SCAN EXT O RDR/RSLT * Transcranial Duplex, complete (10/21/2016 3:53 PM EDT) VB Text Report Department: Vascular Surgery Lab Patient: [id number] (BRITTA TILLMAN) CPT: 08275 ICD10: Z48.812;I65.21 Referring Physician: LISE SEGURA ?? [...] Segura MD VASCULAR ORDERABLES Performing Organization Address [facility] Co de Phone Number VASCUBASE * EKG 12 Lead (10/21/2016 3:05 PM EDT) Ventricular rate 100 BPM MUSE SYSTEM Atrial Rate 100 BPM MUSE SYSTEM P-R Interval 154 ms MUSE SYSTEM QRS Duration 88 ms MUSE SYSTEM Q-T Interval 362 ms MUSE SYSTEM QTC Calculated (Bezet) 466 ms MUSE SYSTEM Calculated P Bethel 68 degrees MUSE SYSTEM Calculated R [place]hel 64 degrees MUSE SYSTEM Calculated T Bethel 71 degrees MUSE SYSTEM INTERPRETATION Normal sinus rhythm Normal ECG When compared with ECG of 19-OCT-2016 15:59, Vent. rate has increased BY ??33 BPM Confirmed by MD Fisher Timothy ([id number]) on 10/22/2016 10:52:40 AM MUSE SYSTEM 10/21/2016 3:05 PM EDT 10/22/2016 10:52 AM EDT Lise Segura MD ECG ORDERABLES Performing Organization Address [facility] Co de Phone Number MUSE SYSTEM * Carotid Duplex, Unilateral (10/20/2016 2:54 PM EDT) VB Text Report Department: Vascular Surgery Lab Patient: [id number] (BRITTA TILLMAN) CPT: 06590 ICD10: I65.21;H34.11 Referring Physician: ANSHU MICHAUD ?? [...] n/a ?n/a ?? n/a Electronically Signed by: ILN SALINAS on 2016-10-20 04:37:24 PM VASCUBASE VB Text Report End of Report VASCUBASE 10/20/2016 2:54 PM EDT Anshu Michaud MD VASCULAR ORDERABLE S VASCUBASE * ECHO COMPLETE (10/20/2016 12:06 PM EDT) EF 62 HEARTLAB SYSTEM Anatomical Region Laterality Modality Other 10/20/2016 Narrative 10/20/2016 3:56 PM EDT Procedure: ?Transthoracic Echocardiogram Patient: ?TILLMAN BRITTA Roche ? (Age): 1955(61y) Med Rec#: ? [id number] ?Sex: ?M ? Site Loc: ? [facility] ?Ht / Wt: ??168(cm)/77(kg) Pt. Loc: ?Adult Floor ? BSA: ?1.87 Study Date: ?? 10/20/2016 ?Pt. Type: Inpatient Tape: ? Referring: JAVIER YAO M Referring: Lisa Ford Reading: Trevin Cook ([id number]) Audograph Operator: Khadijah Mccabe Interpreting Fellow: Preethi Santana Diagnosis: *ICD-10-PCS Central retinal artery occlusion, right eye (H34.11) CPT Codes: *Echo Full (44162) *Spectral Doppler (82932) *Color Doppler (17098) BP: ? 126/67 SUMMARY: 1. The left [...] E-wave Vmax ?0.8 ?m/sec ? MV deceleration [id number] ?msec ? MV A-wave Vmax ?0.6 ?m/sec [...] ? Mid-Inferior ?Normal ? Mid-Inferoseptal ?Normal ? [place]-Septal ? Normal ? [place]-Anterior ? Normal ? [place]-Lateral ?Normal ? [place]-Inferior ? Normal ? [place]-Tip ?Normal ? This report has been electronically signed by: Trevin Cook MD ? 10/20/2016 15:56:38 Images reviewed and interpretation verified [facility] Cardiac Ultrasound Laboratory Procedure Note Trevin Cook MD - 10/20/2016 Procedure: Transthoracic Echocardiogram Patient: CHRISTOPHE GAO(Age): 1955(61y) Med Rec#: [id number] Sex: M Site Loc: [facility] Ht / Wt: 168(cm)/77(kg) Pt. Loc: Adult Floor BSA: 1.87 Study Date: 10/20/2016 Pt. Type: Inpatient Tape: Referring: JAVIER YAO M Referring: Lisa Ford Reading: Trevin Cook ([id number]) Audograph Operator: Khadijah Mccabe Interpreting Fellow: Preethi Santana Diagnosis: *ICD-10-PCS Central retinal artery occlusion, right eye (H34.11) CPT Codes: *Echo Full (45847) *Spectral Doppler (39047) *Color Doppler (36014) BP: 126/67 SUMMARY: 1. The left ventricular [...] MV E-wave Vmax 0.8 m/sec MV deceleration [id number] msec MV A-wave Vmax 0.6 m/sec MV [...] Normal Mid-Posterolateral Normal Mid-Inferior Normal Mid-Inferoseptal Normal [place]-Septal Normal [place]-Anterior Normal [place]-Lateral Normal [place]-Inferior Normal [place]-Tip Normal This report has been electronically signed by: Trevin Cook MD 10/20/2016 15:56:38 Images reviewed and interpretation verified [facility] Cardiac Ultrasound Laboratory Lisa Ford MD [...] right eye TECHNIQUE: Brain MRI and MRA [place] without contrast. Routine protocol. COMPARISON: [...] air cells. Midline structures are unremarkable. MRA [place]: The intracranial vessels are normal course and caliber without focal stenoses or aneurysms. Proximal ophthalmic arteries are patent. Procedure Note Kingsley Romero MD - 10/19/2016 EXAMINATION: MRI ANGIOGRAM HEAD & MRI BRAIN WO CONTRAST CLINICAL HISTORY: Central retinal artery occlusion right eye TECHNIQUE: Brain MRI and MRA [place] without contrast. Routine protocol. COMPARISON: [...] air cells. Midline structures are unremarkable. MRA [place]: The intracranial vessels are normal [...] (Bezet) 448 ms MUSE SYSTEM Calculated P Bethel 54 degrees MUSE SYSTEM Calculated R Bethel 60 degrees MUSE SYSTEM Calculated T Bethel 67 degrees MUSE SYSTEM INTERPRETATION Normal sinus rhythm Normal ECG When compared with ECG of 20-AUG-2014 10:22, No significant change was found Confirmed by MD HEIDI, EDWARD ([id number]) on 10/20/2016 7:51:28 AM MUSE SYSTEM 10/19/2016 3:59 PM EDT 10/20/2016 7:51 AM EDT Lisa Ford MD ECG ORDERABLES MUSE SYSTEM * (ABNORMAL) Differential, Automated (10/19/2016 3:10 PM EDT) Neutrophils % 68.5 % [facility] Neutr Abs (ANC) 6.86(H) 1.70 - 6.10 x10(3)/mc L [facility] Lymphocytes % 17.5 % [facility] Lymphocytes Abs 1.8 0.9 - 3.2 x10(3)/mc L [facility] Monocytes % 10.0 % [facility] Monocyte Abs 1.0(H) 0.3 - 0.9 x10(3)/mc L [facility] Eosinophils % 2.1 % [facility] Eosinophils Abs 0.2 0.0 - 0.4 x10(3)/[facility] Basophils % 0.6 % [facility] Basophils Abs 0.1 0.0 - 0.1 x10(3)/[facility]OR[facility] Immature Gran % 1.30 % [facility] Comment: Immature granulocytes(IG's)percentage and absolute count will include metamyelocytes, myelocytes, and promyelocytes. Blood smears from CBCs yielding IG's will be scanned manually for concordance. If this scan disagrees with the automated IG or if promyelocytes are noted, a manual differential will be performed. Suri Gran Abs 0.13(H) 0.00 - 0.04 x10(3)/[facility] Blood specimen (specimen) 10/19/2016 3:10 PM EDT 10/19/2016 3:18 PM EDT Narrative Resulting Agency Comment Spec In Lab Lisa Ford MD HEMATOLOGY ORDERABLE S [facility] [place] [address] * (ABNORMAL) Hemogram (10/19/2016 3:10 PM EDT) WBC 10.0(H) 4.0 - 9.5 x10(3)/[facility] LABORATORY RBC 4.86 4.58 - 5.54 x10(6)/[facility] LABORATORY Hemoglobin 13.7 13.7 - 16.5 gm/dL [facility] Hematocrit 41.3 40.5 - 48.5 % [facility] MCV 85.0 82.9 - 93.1 fL [facility] MCH 28.2 27.5 - 32.1 pg [facility] MCHC 33.2 32.0 - 35.7 gm/dL [facility] Platelets 498(H) 145 - 357 x10(3)/[facility] LABORATORY RDWSD 44.1 36.0 - 45.0 [facility] LABORATORY RDWCV 14.4(H) 11.4 - 13.8 % [facility] MPV 9.5 7.6 - 12.9 [facility] LABORATORY nRBC % Auto 0.0 % [facility] LABORATORY nRBC Abs Auto 0.000 0.000 - 0.000 x10(3)/mcL [facility] Blood specimen (specimen) 10/19/2016 3:10 PM EDT 10/19/2016 3:18 PM EDT Narrative Resulting Agency Comment Spec In Lab Lisa Ford MD HEMATOLOGY ORDERABLE S [facility] [place] [address] * (ABNORMAL) Hemoglobin A1c (10/19/2016 3:10 PM EDT) Hemoglobin A1C 5.8(H) 4.3 - 5.6 % [facility] Comment: Reference Range: 4.3 [...] 36: Suppl. 1, S67-74 Est Avg Gluc 120 mg/dL [facility] Comment: eAG equivalents for HbA1c percentages: HbA1c(%) ?eAG(mg/dL) 6.0 ?126 6.5 ?140 7.0 ?154 7.5 ?169 8.0 ?183 8.5 ?197 9.0 ?212 9.5 ?226 10.0 ? 240 Limitations: The eAG calculation has not been validated on women, individuals below 18 years old and above 70 years old, and individuals with hemoglobinopathies. Additional resources are available on the ADA website: [email or web address] Fahad PENA, Marcello J, Veronique R, et al. ??Translating the A1C assay into estimated average glucose values. ??Diabetes Care 2008:31(8):7046-6315. Blood specimen (specimen) 10/19/2016 3:10 PM EDT 10/19/2016 3:18 PM EDT Narrative Resulting Agency Comment Spec In Lab Lisa Ford MD CHEMISTRY ORDERABLES [facility] [place] [address] * (ABNORMAL) Lipid Panel (10/19/2016 3:10 PM EDT) Chol, Total 127 <=239 mg/dL [facility] Triglycerides 166 <=199 mg/dL [facility] HDL 31(L) >=40 mg/dL [facility] LDL Cholesterol 63 <=190 mg/dL [facility] Chol/HDL Ratio 4.1 ratio [facility] Lipid Interpretation See Note [facility] Comment: Lipid management should be guided by a patient? s ASCVD risk, goals and preferences. ACC/AHA Guidelines recommend high intensity statin if clinical ASCVD or LDL greater than or equal to 190 mg/dL. http://circ.ahajournals.org/content/early/.cir.6701454738.05367.7a Adults aged 40-75 with LDL 70-189 mg/dL should have their 10 year ASCVD risk estimated with the ACC/AHA ASCVD risk utilities estimator and drafter http://tools.acc.org/ENAQT-Yjcs-Cgkyppmkg/ Statin should be discussed if risk greater [...] Ford MD CHEMISTRY ORDERABLES Performing Organization Address [facility] Co de Phone Number [facility] [place] [address] * APTT (10/19/2016 3:10 PM EDT) PTT 29 25 - 35 sec [facility] Comment: The recommended therapeutic range for full dose, unfractionated heparin at [facility] is 80 ? 114 seconds. The use of the anti-Xa (heparin) level rather than the PTT is recommended for monitoring anticoagulation intensity in critically ill patients receiving unfractionated heparin by continuous IV infusion. Blood specimen (specimen) 10/19/2016 3:10 PM EDT 10/19/2016 3:18 PM EDT Narrative Resulting Agency Comment Spec In Lab Lisa Ford MD HEMATOLOGY ORDERABLE S Performing Organization Address [facility] Co de Phone Number [facility] [place] [address] * Prothrombin Time (10/19/2016 3:10 PM EDT) PT 12.9 12.0 - 15.0 sec [facility] Comment: An INR <2.0 indicates adequate [...] clinical circumstances. INR 0.9 0.9 - 1.1 [facility] Blood specimen (specimen) 10/19/2016 3:10 PM EDT 10/19/2016 3:18 PM EDT Narrative Resulting Agency Comment Spec In Lab Lisa Ford MD HEMATOLOGY ORDERABLE S Performing Organization Address [facility] Co de Phone Number [facility] [place] [address] * (ABNORMAL) Sedimentation rate (10/19/2016 3:10 PM EDT) Sed Rate 18(H) 0 - 15 mm/hr [facility] Blood specimen (specimen) 10/19/2016 3:10 PM EDT 10/19/2016 3:18 PM EDT Narrative Resulting Agency Comment Spec In Lab Lisa Ford MD HEMATOLOGY ORDERABLE S Performing Organization Address [facility] Co de Phone Number [facility] [place] [address] * (ABNORMAL) Hepatic Function Panel (10/19/2016 3:10 PM EDT) Total Protein 8.1(H) 6.1 - 8.0 gm/dL [facility] Albumin 4.7 3.2 - 5.2 gm/dL [facility] AST 22 0 - 39 unit/L [facility] ALT 29 0 - 55 unit/L [facility] Alk Phos 110 40 - 120 unit/L [facility] Total Bilirubin 0.2 0.2 - 1.3 mg/dL [facility] Bili, Direct <0.1 0.0 - 0.3 mg/dL [facility] Blood specimen (specimen) 10/19/2016 3:10 PM EDT 10/19/2016 3:18 PM EDT Narrative Resulting Agency Comment Spec In Lab Lisa Ford MD CHEMISTRY ORDERABLES [facility] [place] [address] * (ABNORMAL) Basic Metabolic Panel (non-fasting) (10/19/2016 3:10 PM EDT) Glucose Lvl 95 65 - 199 mg/dL [facility] Comment:Diabetes: >=200 mg/d L plus symptoms BUN 17 10 - 20 mg/dL [facility] Creatinine 1.06 0.80 - 1.50 mg/dL [facility] Comment: Please note that the pediatric reference intervals supplied above were not validated at [facility]. Results from pediatric patients should be interpreted in conjunction to the patient's age, height and muscle mass. Sodium 141 135 - 145 mmol/L [facility] Potassium 3.8 3.5 - 5.0 mmol/L [facility] Comment: Please note: ??Patients with WBC >100,000 may have falsely elevated Potassium levels. ??For accurate Potassium quantification in these patients send serum separator tube (gold top) for subsequent determinations. ??Contact the Clinical Chemistry Laboratory if there are any questions. Chloride 98 98 - 107 mmol/L [facility] CO2 23 22 - 31 mmol/L [facility] Anion Gap 20(H) 5 - 15 mmol/L [facility] Calcium 9.8 8.5 - 10.5 mg/dL [facility] Estimated GFR >60 >=60 [facility] Comment: This estimated GFR (eGFR) value [...] the following links into your internet browser. [email or web address] Blood specimen (specimen) 10/19/2016 3:10 PM EDT 10/19/2016 3:18 PM EDT Narrative Resulting Agency Comment Spec In Lab Lisa Ford MD CHEMISTRY ORDERABLES [facility] [place] [address] * CT Head wo Contrast (Generic) (10/19/2016 [...] Text Report Department: Vascular Surgery Lab Patient: [id number] (BRITTA TILLMAN) CPT: 74305 ICD10: I65.23 Referring Physician: LISA FORD ?? [...] VASCUBASE documented in this encounter Visit Diagnoses Not on filedocumented in this encounter Admitting Diagnoses Diagnosis Central [...] Given 10/19/2016 9:11 PM EDT 1 drop chlorhexidine (PERIDEX) 0.12 % oral solution 15 mL 15 mL, Oral, EVERY 12 HOURS SCHEDULED (2 times per day), First dose on Wed10/19/16 at 2100, Until Discontinued, [place] teeth every 12 hours, Routine Given 10/22/2016 [...] Given 10/21/2016 8:41 AM EDT 100 mg gelatin adsorbable (GELFOAM) sponge ONCE PRN, Starting on Wed10/20/16 at 1353, Until Wed10/22/16 at 1435, Intra-Operative (Intra-Procedure) Given 10/20/2016 1:53 PM EDT 4 each 19- Surgical Site hydrALAZINE (APRESOLINE) injection 10 mg 10 mg, [...] 10/22/2016 9:31 AM EDT 20 mg meTOPROLOL tartrate (LOPRESSOR) tablet 25 mg [...] Given 10/20/2016 8:45 AM EDT 40 mg papaverine injection Administer over 2 Minutes, ONCE PRN, Starting on Wed10/20/16 at 1444, Until Federica 10/22/16 at 1435, Intra-Operative (Intra-Procedure), Routine Given 10/20/2016 2:44 PM EDT 60 mg 19- Surgical Site thrombin (bovine) (THROMBIN-JMI) solution ONCE PRN, Starting on Wed10/20/16 at 1356, Until Federica 10/22/16 at 1435, Intra-Operative (Intra-Procedure) Given 10/20/2016 1:56 PM EDT 5,000 Units 19- Surgical Site documented in this encounter Active and Recently Administered Medications Times are shown in EDT. Scheduled Medication Order 10/20/2016 10/21/2016 10/22/2016 aspirin EC tablet 81 mg 81 mg, Oral, DAILY, First dose on Wed10/19/16 at 1930, Until Discontinued, Routine 0845 (Given - Provider: Milli Akhtar, RN)1249 (AUG Hold - Provider: Admin Adt - Reason: Transfer to a Procedural area)2036 (AUG Unhold - Provider: Admin Adt) 0841 (Given - Provider: Ashley Barton, BOB) 0931 (Given - Provider: Mayelin Cote RN) atorvastatin (LIPITOR) tablet 80 mg 80 mg, Oral, DAILY WITH DINNER, First dose on Wed10/19/16 at 1930, Until Discontinued, Routine 1249 (MAR Hold - Provider: Admin Adt - Reason: [...] Quintana RN) 0145 (Given - Provider: Hazel Lawson, BOB) chlorhexidine (PERIDEX) 0.12 % oral solution 15 mL 15 mL, Oral, EVERY 12 HOURS SCHEDULED (2 times per day), First dose on Wed10/19/16 at 2100, Until Discontinued, [place] teeth every 12 hours, Routine 0844 (Not Given - Provider: Milli Akhtar RN - Reason: Patient/family refused)1249 (MAR Hold - Provider: Admin Adt - Reason: Transfer to a Procedural area)2036 (AUG Unhold - Provider: Admin Adt)2145 (Given - Provider: Hazel Lawson, BOB) 0843 (Given - Provider: Ashley Barton, BOB)2018 (Given - Provider: Hazel Lawson RN) 0933 [...] Ashley Barton, BOB) 0931 (Given - Provider: Maylein Cote, BOB) docusate sodium (COLACE) capsule 100 mg 100 mg, Oral, 2 TIMES DAILY, First dose on Wed10/19/16 at 2100, Until Discontinued, Routine 0845 (Given - Provider: Milli Akhtar RN)1249 (AUG Hold - Provider: Admin Adt - Reason: Transfer to a Procedural area)2036 (AUG Unhold - Provider: Admin Adt)2144 (Given - Provider: Hazel Lawson RN) 0841 (Given - Provider: Ashley Barton, BOB)2017 [...] Lawson RN) 0931 (Given - Provider: Mayelin Cote RN) ipratropium-albuterol (COMBIVENT RESPIMAT) inhaler 1 puff 1 puff, Inhalation, 4 TIMES DAILY, First dose (after last reorder) on Wed10/19/16 at 2100, Until Discontinued, Must be primed prior to first administration., Routine 0847 (Given - Provider: Milli Akhtar RN)1249 (AUG Hold - Provider: Admin Adt - Reason: Transfer to a Procedural area)1300 (Automatically Held - Provider: Admin Adt)1624 (MAR Unhold - Provider: Mary Harman RN)1700 (Due - Provider: Mary Harman RN)2145 (Given - Provider: Hazel Lawson, BOB) 0842 (Given - Provider: Ashley Barton, BOB)1237 (Not Given - Provider: Ashley Barton RN - Reason: Patient/family refused)165 (Given - Provider: Ashley Barton, BOB)2017 (Given - Provider: Hazel Lawson, BOB) 0933 (Given - Provider: Mayelin Cote RN) lisinopril (PRINIVIL;ZESTRIL) tablet 10 mg (CANCELED) 10 mg, Oral, DAILY, First dose on Wed10/19/16 at 1930, Until Discontinued, Routine 0844 (Given - Provider: Milli Akhtar RN)1249 (AUG Hold - Provider: Admin Adt - Reason: Transfer to a Procedural area)2036 (MAR Unhold - Provider: Admin Adt) lisinopril (PRINIVIL;ZESTRIL) tablet 10 mg (CANCELED) 10 mg, Oral, DAILY, First dose (after last modification) on Wed10/21/16 at 0700, Until Discontinued, Routine 0654 (Given - Provider: Hazel Lawson, BOB) lisinopril (PRINIVIL;ZESTRIL) tablet 10 mg (COMPLETED) 10 mg, Oral, ONCE, 1 dose, On Wed10/21/16 at 1730, Routine 1651 (Given - Provider: Ashley Barton, BOB) lisinopril (PRINIVIL;ZESTRIL) tablet 20 mg 20 mg, Oral, DAILY, First dose (after last modification) on Wed10/22/16 at 0900, Until Discontinued, Routine 0931 (Given - Provider: Mayelin Cote RN) meTOPROLOL succinate (TOPROL-XL) XL tablet 25 mg (CANCELED) 25 mg, Oral, DAILY, First dose on Wed10/19/16 at 1930, Until Discontinued, DO NOT CRUSH OR OPEN, Routine 0844 (Given - Provider: Milli Akhtar RN)1249 (AUG Hold - Provider: Admin Adt - Reason: Transfer to a Procedural area)2036 (AUG Unhold - Provider: Admin Adt) meTOPROLOL succinate [...] Procedural area)2036 (AUG Unhold - Provider: Admin Adt)214 (Given - Provider: Hazel Lawson RN) 0843 (Given - Provider: Ashley Barton RN)2016 (Given - Provider: Hazel Lawson RN) 0933 (Given - Provider: Mayelin Cote RN) pantoprazole (PROTONIX) tablet 40 mg 40 mg, Oral, DAILY, First dose on Wed10/19/16 at 1830, Until Discontinued, DO NOT CRUSH OR OPEN, Routine 0845 (Given - Provider: Milli Akhtar, BOB)1249 ([facility] Hold - Provider: Admin Adt - Reason: Transfer to a Procedural area)2036 ([facility] Unhold - Provider: Admin Adt) 0841 (Given - Provider: Ashley Barton, RN) 0931 (Given - Provider: Mayelin Cote, BOB) sodium chloride 0.9 % flush 5 mL (CANCELED) 5 mL, Intravenous, 2 TIMES DAILY, First dose on Wed10/19/16 at 2100, Until Discontinued, Routine 0845 (Given - Provider: Milli Akhtar, BOB)1249 ([facility] Hold - Provider: Admin Adt - Reason: Transfer to a Procedural area)2036 ([facility] Unhold - Provider: Admin Adt) Continuous Medication Order 10/20/2016 10/21/2016 10/22/2016 sodium chloride 0.9% infusion (CANCELED) 1,000 mL, at 100 mL/hr, Intravenous, CONTINUOUS, Starting on Wed10/19/16 at 1736, Until Wed10/20/16 at 1624 0850 (New Bag - Provider: Milli Akhtar RN)1249 ([facility] Hold - Provider: Admin Adt - Reason: Transfer to a Procedural area)1624 ([facility] Unhold - Provider: Admin Adt) sodium chloride 0.9% infusion (CANCELED) 75 mL/hr, Intravenous, CONTINUOUS, Starting on Tu10/20/16 at 1645, Until Wed10/21/16 at 0603 1639 (Restarted - Provider: Mary Harman, BOB)2225 (New Bag - Provider: Hazel Lawson, BOB) PRN Medication Order 10/20/2016 10/21/2016 10/22/2016 acetaminophen (TYLENOL) 650 mg/20.3 mL oral liquid 975 mg(Linked Group 1) 975 mg, Per G Tube, EVERY 6 HOURS PRN, Starting on Wed10/19/16 at 1804, Until Federica 10/22/16 at 1435, Pain, Fever, pain or temperature greater than 100 degrees F (measured by mouth), Routine 0845 (See Alternative - Provider: Milli Akhtar RN)1249 ([facility] Hold - Provider: Admin Adt - Reason: Transfer to a Procedural area)1624 ([facility] Unhold - Provider: Mary Harman RN)1947 (See Alternative - Provider: Mary Frederick RN) 0524 (See Alternative - Provider: Hazel Lawson RN)185 (See Alternative - Provider: Ashley Barton, BOB) 011 (See Alternative - Provider: Hazel Lawson RN)0931 (See Alternative - Provider: Mayelin Cote RN) [...] (See Alternative - Provider: Milli Akhtar RN)1249 ([facility] Hold - Provider: Admin Adt - Reason: Transfer to a Procedural area)162 ([facility] Unhold - Provider: Mary Harman RN)1947 (See Alternative - Provider: Mary Frederick RN) 0524 (See Alternative - Provider: Hazel Lawson RN)1851 (See Alternative - Provider: Ashley Barton, BOB) [...] 0845 (Given - Provider: Milli Akhtar RN)1249 ([facility] Hold - Provider: Admin Adt - Reason: Transfer to a Procedural area)1624 ([facility] Unhold - Provider: Mary Harman RN)1947 (Given - Provider: Mary Frederick RN) 0524 (Given - Provider: Hazel L Lawson, RN)1852 (Given - Provider: Ashley Barton, BOB) 0117 (Given - Provider: Hazel Lawson, BOB)0931 (Given - Provider: Mayelin Cote, BOB) bisacodyl (DULCOLAX) suppository 10 mg 10 mg, Rectal, DAILY PRN, Starting on Wed10/19/16 at 1804, Until Fdeerica 10/22/16 at 1435, Constipation, Administer if needed per patient's routine or if no bowel movement within 48 hours to achieve: 1) One bowel movement at least every 48 hours, AND 2) Without straining. If multiple bowel medications ordered, consider adding if docusate or milk of magnesia not sufficient., Routine 1249 ([facility] Hold - Provider: Admin Adt - Reason: Transfer to a Procedural area)2036 ([facility] Unhold - Provider: Admin Adt) carboxymethylcellulose (REFRESH PLUS) 0.5 % ophthalmic drops 1 drop 1 drop, Both Eyes, 3 TIMES DAILY PRN, Starting on Wed10/19/16 at 2001, Until Federica 10/22/16 at 1435, Dry Eyes, or eye discomfort, Routine 1249 ([facility] Hold - Provider: Admin Adt - Reason: Transfer to a Procedural area)2036 ([facility] Unhold - Provider: Admin Adt) gelatin adsorbable [...] achieved, Routine 1455 (Given - Provider: Jennie Aquino RN) lidocaine (XYLOCAINE) 10 mg/mL (1 %) injection 3 mg 3 mg (0.3 mL), Subcutaneous, ONCE PRN, 1 dose, Starting on Wed10/19/16 at 1804, Until Federica 10/22/16 at 1435, for discomfort with PIV insertion, Routine 1249 (MAR Hold - Provider: Admin Adt - Reason: Transfer to a Procedural area)2036 (MAR Unhold - Provider: Admin Adt) magnesium hydroxide [...] consider adding if docusate not sufficient., Routine 124 (MAR Hold - Provider: Admin Adt - Reason: Transfer to a Procedural area)2036 (MAR Unhold - Provider: Admin Adt) ondansetron (ZOFRAN) [...] ineffective documented in this encounter Care Teams Custom Miller Relationship Specialty Start Date End Date Nataliya Messina MD [address] [place] [address] PCP - General 10/02/11 01/11/22 documented as of this encounter
--- OUTSIDE RECORDS SUMMARY | 2024-01-05 02:49 | XMS_ITS | Encounter Summary ---
Author Organization [facility] [place] [address] Care Team Providers Care Angio Technologist Name Role Phone Edin Messina MD Primary Care Provider [phone] Reason for Referral * (Routine) - Closed by system - Referral Specialty Diagnoses / Procedures Referred By Contac t Referred To Contact Cardiac Rehabilitation Diagnoses S/P coronary artery stent placement Mila Mccall MD [facility] [place] [address] Referral ID Status Reason Start Date Expiration Date Visits Requested Visits Authorized [id number] Closed by system - Referral Evaluate and Treat 10/11/2013 04/09/2014 1 1 Encounter Details Date Type Department Care Team (Latest Contact Info) Description 10/09/2013 2:43 PM EDT - 10/11/2013 12:32 PM EDT Hospital Encounter Intermediate [place] [address] Mila Mccall MD [facility] [place] [address] Chest pain; Angina at rest; CAD (coronary artery disease); S/P coronary artery stent placement Discharge Disposition: Home Social History Tobacco Use Types Packs/Day Years Used Date Smoking Tobacco: Former Cigarettes Q uit: 09/11/2013 Tobacco Cessation:Counseling Given: Yes Alcohol Use Standard Drinks/Week Comments No 0 (1 standard drink = 0.6 oz pure alcohol) Sober 22 years the summer Sex and Gender Information Value Date Recorded Sex Assigned at Not on file Gender Identity Not on file Sexual Orientation Not on file documented as of this encounter Last Filed Vital Signs Vital Sign Reading Time Taken Comments Blood Pressure 130/53 10/11/2013 7:06 AM EDT Pulse 77 10/11/2013 7:06 AM EDT Temperature 36.8 ??C (98.2 ??F) 10/11/2013 7:06 AM ED T Respiratory Rate 16 10/11/2013 7:06 AM EDT Oxygen Saturation 95% 10/11/2013 7:06 AM EDT Inhaled Oxygen Concentration - - Weight 70.1 kg (154 lb 8.7 oz) 10/10/2013 6:45 A M EDT Height 162.6 cm (5' 4) 10/09/2013 2:53 PM EDT Body Mass Index 26.53 10/09/2013 2:53 PM EDT documented in this encounter Discharge Instructions * Discharge Instructions* Mary Harrington PA - 10/11/2013 11:17 AM EDT Anti-coagulation follow up: n/a Call your doctor if: Chest pain, shortness of breath, pain or swelling in legs occurs. If you have non-emergent questions between now and the time of your follow up appointments: During 8am-5pm Wednesday through Wednesday call [phone] to speak with a nurse in the cardiology clinic All other times call [phone] and ask to speak to the language interpreter money position officer. Return to work: One week Driving: No driving for 48 hours after catheterization. Follow up Appointments: PCP EDIN MESSINA MD to see you on October 18 at 240 pm. Please call [phone] Lauri Winn to see you in [place] on WednesdayOctober 16 at 930 am as previously arranged. Please call his office at [phone]. Home oxygen therapy: N/A Arrangements for VNA/home care: none * Attachments The following attachments cannot be sent through Care Everywhere. * PCI (PERCUTANEOUS CORONARY INTERVENTION) : GENERAL INFO (WELSH) documented in this encounter Medications at Time of Discharge Medication Sig Dispensed Refills Start Date End Date atorvastatin (LIPITOR) 80 mg tablet Take 1 tablet by mouth daily. 30 tablet 2 09/13/2013 FIBER CHOICE ORAL Take 1 tablet by mouth daily. aspirin 81 mg EC tablet Take 81 mg by mouth daily. metoprolol succinate (TOPROL-XL) 50 mg 24 hr tablet Take 1 tablet by mouth daily. 30 tablet 1 10/11/2013 04/30/2016 clopidogrel (PLAVIX) 75 mg tablet Take 1 tablet by mouth daily. 90 tablet 3 09/13/2013 07/30/2023 nicotine (NICODERM CQ) 14 mg/[address] 1 patch onto the skin daily. 28 patch 0 09/13/2013 12/11/2013 nitroGLYcerin (NITROSTAT) 0.[address] [...] as of this encounter Progress Notes * Lisa Perez RN - 10/11/2013 12:30 PM EDT Reviewed discharge summary and medications with patient and his who demonstrated understanding. Patient was d/c'd from telemetry and IV's. Patient left ambulating independently with his to [facility] for home. * Mila Mccall MD - 10/11/2013 9:43 AM EDT Inpatient Cardiology Progress Note Patient Name: Hieu Tillman Service: BULK SAUSAGE CASING TIER OFF / PA Responsible Attending: Mila Mccall MD Reason for continued hospitalization: Evaluation and management of Chest Pain S/p cardiac cath and stent Home today Active Problems: Active Hospital Problems Diagnosis ??? Chest pain ??? CAD (coronary artery disease) CARDIAC CATHETERIZATION - Procedure: Coronary Angiography 09/11/13 LM: normal LAD: mild diffuse disease, mid 50% stenosis LCx: mild diffuse disease, prox 60% involving the bifurcation, 85% mid stenosis which received a stent OM1: 60% ostial, moderate sized vessel involving the bifurcation RCA: normal Patient enrolled in ABSORB trial ??? Tobacco abuse Quit 09/11/13, had been smoking 10 cigarettes prior to starting the patch, has been smoke free sinceusing the patch 10/09/13 Has been wearing patches 2 days, doing well smoke free ??? Emphysema/COPD ??? Hyperlipidemia ??? Hypertension Resolved Hospital Problems Diagnosis Date Resolved No resolved problems to display. Interval History: Patient feels well. Eager to go home today. Review of Systems: Review of Systems Constitutional: Negative for fever, chills and diaphoresis. HENT: Negative. Eyes: Negative. Respiratory: Negative for cough and shortness of breath. Cardiovascular: Positive for chest pain (08/28 resolving chest discomfort at time of exam. Pain dissapated by the time NTG available). Negative for palpitations and leg swelling. Gastrointestinal: Negative for nausea, vomiting, diarrhea and abdominal distention. Genitourinary: Negative. Musculoskeletal: Negative for myalgias and joint swelling. Skin: Negative. Neurological: Negative for dizziness, weakness and light-headedness. Psychiatric/Behavioral: Negative for confusion. The patient is not nervous/anxious. Telemetry: sinus rhythm 65-85 without ectopy. Meds: Scheduled Meds: ??? [] alum-mag hydroxide-simeth 10 mL Oral Once ??? [COMPLETED] diaZEPam 5 mg Oral Once ??? [COMPLETED] diphenhydrAMINE 25 mg Oral Once ??? albuterol-ipratropium 1 puff Inhalation 4 Times Daily ??? aspirin 81 mg Oral Daily ??? atorvastatin 80 mg Oral QPM ??? clopidogrel 75 mg Oral Daily ??? hydrochlorothiazide 25 mg Oral Daily ??? lisinopril 10 mg Oral Daily ??? pantoprazole 40 mg Oral Daily ??? nicotine 7 mg Transdermal Daily And ??? nicotine 1 patch Transdermal Daily ??? [COMPLETED] predniSONE 60 mg Oral BID ??? formoterol 12 mcg Inhalation Q12H ??? mometasone 220 mcg Inhalation BID ??? metoprolol succinate 50 mg Oral Daily Continuous Infusions: ??? sodium chloride 0.9% 125 mL/hr (10/10/13 1145) ??? [] sodium chloride 0.9% Stopped (10/11/13 0145) ??? [DISCONTINUED] bivalirudin 122.5 mg/hr (10/10/13 1435) ??? [DISCONTINUED] adenosine Stopped (10/10/13 1449) PRN Meds:[DISCONTINUED] fentaNYL (PF), [DISCONTINUED] midazolam (PF), [DISCONTINUED] lidocaine, [DISCONTINUED] bivalirudin, [DISCONTINUED] bivalirudin, [DISCONTINUED] adenosine, [DISCONTINUED] nitroGLYCerin, [DISCONTINUED] midazolam (PF), [DISCONTINUED] atropine, [DISCONTINUED] fentaNYL (PF), nitroGLYcerin, acetaminophen, LORazepam Physical Exam: Vital Signs: Last value Range last 24 hrs Temperature Temp: 36.8 ??C (98.2 ??F) Temp: [36.6 ??C (97.9 ??F)-36.8 ??C (98.2 ??F)] Heart Rate Heart Rate: 77 Heart Rate: [70-82] Blood Pressure BP: 130/53 mmHg BP: (106-161)/(53-82) Respiratory Rate Resp: 16 Resp: [11-21] SpO2 SpO2: 95 % SpO2: [95 %-100 %] Physical Exam Nursing note and vitals reviewed. Constitutional: He is oriented to person, place, and time. He appears well- developed and well-nourished. No distress. HENT: Head: Normocephalic and atraumatic. Mouth/Throat: Oropharynx is clear and moist. Eyes: Right eye exhibits no discharge. Left eye exhibits no discharge. No scleral icterus. Neck: No JVD present. No tracheal deviation present. Cardiovascular: Normal rate, regular rhythm, normal heart sounds and intact distal pulses. Exam reveals no gallop and no friction rub. No murmur heard. Pulmonary/Chest: Effort normal and breath sounds normal. No respiratory distress. He has no wheezes. He has no rales. Abdominal: Soft. Bowel sounds are normal. He exhibits no distension. There is no tenderness. Musculoskeletal: Normal range of motion. He exhibits no edema. Neurological: He is alert and oriented to person, place, and time. Skin: Skin is warm and dry. He is not diaphoretic. No erythema. Psychiatric: He has a normal mood and affect. His behavior is normal. Lab Comments: Recent Labs Basename 10/11/13 0519 10/10/13 0406 WBC 22.0* 13.8* HGB 13.1* 13.8 HCT 38.1* 40.5 PLATELET 370 398* No results found for this basename: INR in the last 168 hours Recent Labs Basename 10/11/13 0519 10/10/13 0406 NA 138 134* K 4.3 4.3 CL 103 99 CO2 23 23 BUN 23* 29* CREATININE 0.99 1.09 No results found for this basename: AST:3,ALT:3,ALKPHOS:3,BILITOT:3,BILIDIR:3 in the last 168 hours Recent Labs Basename 10/11/13 0519 10/10/13 0406 CALCIUM 9.4 9.6 MAGNESIUM -- -- PHOS -- -- Recent Labs Basename 10/11/13 0519 10/10/13 1600 10/09/13 2141 CK 53 59 78 TROPONINT <0.03 <0.03 <0.03 Pertinent Radiographic/Diagnostic Results: I have independently visualized the following studies: ECG: Sinus Rhythm at [address] depression in V4-V6. Nuclear Medicine Stress: 10/10/13 Findings No fixed or reversible perfusion defects are present. Functional Analysis Myocardial function: There is normal wall motion and wall thickening. Left ventricular ejection fraction: 68% (normal >50%) Impression No ischemia or scar. Left ventricular function is normal. Assessment: Hieu Tillman is a 58 y.o. male with a history of ASCVD s/p stent to the LCx, PVD, HTN, HLD, COPD and carotid disease who presents to [facility] [place] transfer from [facility] on 10/09 with atypical chest discomfort while at cardiac rehab program. Overnight he remained pain free. However, this morning hedeveloped chest discomfort similar to his previous pain while undergoing a nuclear medicine stress test as well as new ST segment depression in his inferior and lateral leads. Although this episode of pain resolved he also experienced chest discomfort with ambulation to the bathroom. His EKG at that time showed an approximately 0.5 ST segment depression in V4-V6. Although his nuclear medicine stress does not show an area of obvious myocardial ischemia his continued unstable angina and ST segment changes are concerning for a cardiovascular origin. His test wassub-optimal as he was not given regadenoson due to the development of chest pain and ST segment depression. We have spoken with interventional cardiology who will perform a cardiac catheterization and may use FFR to evaluate moderate lesions seen a month ago. Plan: 1. Chest Pain: Concerning for myocardial ischemia Nitroglycerin infusion if needed for continued chest discomfort Cardiac catheterization and stent placed per Dr. Dalton Cardiac rehab to see 2. Hyperlipidemia: Started on Lipitor 80mg daily at last discharge. Will follow-up as an outpatient. 3. Hypertension: Blood pressure well controlled on current antihypertensive regimen. Will follow blood pressure trends. 4. Tobacco abuse: Currently abstaining from cigarettes, using nicotine patch for 48 hours at a time. Explained duration of medication release however patient comfortable with this dosing schedule. Patch 7 mg/day 5. FULL CODE Patient seen and discussed with Mila Mccall MD KELLY H LAFLAMME, PA Pager [phone] 10/11/2013 Attending Addendum I personally conducted comprehensive rounds with the associate provider on this patient today. As the attending of record, I supplemented the history by interviewing the patient I performed an exam with focused inquiry and attention to the cardiopulmonary findings . I reviewed the pertinent laboratory and other data today and supervised the development of the plan of care for each. I identified the primary clinical diagnoses prompting the admission and addressed the medical decision-making with the patient as follows: 1. Unstable angina Stress test yesterday demonstrated typical angina and ST depression at 7 METS of exertion, the stress isotope injection occurred 5-8 minutes after termination of exercise which may account for why the test did not show a perfusion defect. Given the clinical story and non-imaging findings on the exercise stress test we opted to pursue an angiogram with FFR of the obtuse marginal branch. The flow wi re showed a significant gradient across the large OM branch even at resting conditions. This indicates a highly physiologic significant lesion. The lesion was successfully stented. Mr. Tillman did well with PCI and appears ready for discharge this AM. He has done well with smoking cessation and he willcontinue the nicotine patch and the remainder of his pre-existing secondary prevention regiment. I am a credentialed lumber driver at [facility] and I am the attending of record for the patient's admission. I certify that this patient meets or has met the criteria for inpatient treatment for their acute condition meeting a minimum of two midnights. The acute conditions are detailed above Mila Mccall MD Staff Television News Producer Pager: [phone] * Nelly Antunez - 10/10/2013 9:54 PM EDT Post-cardiac catheterization access site evaluation note. Mr. Tillman is s/p cardiac catheterization earlier today. The patient was seen and examined. The patient has no complains, denies groin or back pain. He appears in no distress. Left groin catheterization access site is withough appreciable edema, ecchymosis, pulsatile mass orbruit. Femoral and pedal pulses are palpable. Nelly Antunez MD # [id number] * Remi Sky RN - 10/10/2013 11:46 AM EDT Office of Care Management (OCM) / Clinical Engineering Manager Electronics (CRC)/ Initial Assessment Discussed patient with Provider Team and in multidisciplinary discharge-planning rounds. Reviewed record and interviewed patient. Introduced/reviewed CRC role and services accepted. REASON for HOSPITALIZATION: Chest pain , Stress echo complete. Plan for Cardiac cath this afternoon. PMH See H&P Note. PREVIOUS FUNCTIONAL STATUS: Independent at home. Retired. 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 One step into single level home. CURRENT FUNCTIONAL STATUS: Lying in bed. AXOX3. Awaiting cardiac cath. SOCIAL / FAMILY SUPPORTS: Lives with his Amy. Has five childen who all live in [facility]. ADVANCE DIRECTIVES: Pt reports he and his are working on their AD at home. Not complete at this time. HEALTH /PRESCRIPTION COVERAGE: [place] [employer]. No financial concerns expressed at this time. CURRENT HOME/COMMUNITY SERVICES/EQUIPMENT: DME: None Home Health Agency: None Other: HOUSEKEEPER SUPERVISOR REFERRAL: Notified HOUSEKEEPER SUPERVISOR - for Support/Financial/Medication Assistance; See HOUSEKEEPER SUPERVISOR notes for further needs. PRIMARY CARE PHYSICIAN: EDIN MESSINA MD [address] / [facility] [address] POTENTIAL DISCHARGE NEEDS: None ID at this time. PATIENT/FAMILY EDUCATION NEEDS: Educated as to CRC role and hospital course, questions answered; verbalized understanding. Report understanding current plan of care. ANTICIPATED BARRIERS TO DISCHARGE: None ID at this time. TRANSPORTATION @ D/C: Pt's Amy will provide ride at time of d/c. PLAN: CRC will continue to monitor progress, follow for continuity of care and assist with discharge planning while hospitalized Remi KWAN, RN Clinical Engineering Manager Electronics Pager [phone] * Mila Mccall MD - 10/10/2013 11:19 AM EDT Images from the original note were not included. Inpatient Cardiology Progress Note Patient Name: Hieu Tillman Service: BULK SAUSAGE CASING TIER OFF / PA Responsible Attending: Mila Mccall MD Reason for continued hospitalization: Evaluation and management of Chest Pain Active Problems: Active Hospital Problems Diagnosis ??? Chest pain ??? CAD (coronary artery disease) CARDIAC CATHETERIZATION - Procedure: Coronary Angiography 09/11/13 LM: normal LAD: mild diffuse disease, mid 50% stenosis LCx: mild diffuse disease, prox 60% involving the bifurcation, 85% mid stenosis which received a stent OM1: 60% ostial, moderate sized vessel involving the bifurcation RCA: normal Patient enrolled in ABSORB trial ??? Tobacco abuse Quit 09/11/13, had been smoking 10 cigarettes prior to starting the patch, has been smoke free sinceusing the patch 10/09/13 Has been wearing patches 2 days, doing well smoke free ??? Emphysema/COPD ??? Hyperlipidemia ??? Hypertension Resolved Hospital Problems Diagnosis Date Resolved No resolved problems to display. Interval History: -Pain free overnight - Atypical chest pain (indigestion like) this morning, concerning for anginal equivalent during stress test accompanied by 2-[address] depression in II, III, AvF, V4-V6. Test aborted prior to target heart rate. - Episode of same pain with ambulation to bathroom, resolved with rest. 12 lead EKG with 0.5mm ST depression in V4-V6. Review of Systems: Review of Systems Constitutional: Negative for fever, chills and diaphoresis. HENT: Negative. Eyes: Negative. Respiratory: Negative for cough and shortness of breath. Cardiovascular: Positive for chest pain (3/10 resolving chest discomfort at time of exam. Pain dissapated by the time NTG available). Negative for palpitations and leg swelling. Gastrointestinal: Negative for nausea, vomiting, diarrhea and abdominal distention. Genitourinary: Negative. Musculoskeletal: Negative for myalgias and joint swelling. Skin: Negative. Neurological: Negative for dizziness, weakness and light-headedness. Psychiatric/Behavioral: Negative for confusion. The patient is not nervous/anxious. Telemetry: sinus rhythm 65-85 without ectopy. Meds: Scheduled Meds: ??? albuterol-ipratropium 1 puff Inhalation 4 Times Daily ??? aspirin 81 mg Oral Daily ??? atorvastatin 80 mg Oral QPM ??? clopidogrel 75 mg Oral Daily ??? hydrochlorothiazide 25 mg Oral Daily ??? lisinopril 10 mg Oral Daily ??? pantoprazole 40 mg Oral Daily ??? nicotine 7 mg Transdermal Daily And ??? nicotine 1 patch Transdermal Daily ??? predniSONE 60 mg Oral BID ??? [COMPLETED] formoterol (FORADIL AEROLIZER) inhalation device 1 each Inhalation Once And ??? formoterol 12 mcg Inhalation Q12H ??? mometasone 220 mcg Inhalation BID ??? metoprolol succinate 50 mg Oral Daily ??? [DISCONTINUED] fluticasone 1 puff Inhalation BID ??? [DISCONTINUED] metoprolol succinate 150 mg Oral Daily ??? [DISCONTINUED] salmeterol 1 puff Inhalation BID Continuous Infusions: PRN Meds:nitroGLYcerin, acetaminophen, LORazepam Physical Exam: Vital Signs: Last value Range last 24 hrs Temperature Temp: 36.6 ??C (97.9 ??F) Temp: [36.4 ??C (97.5 ??F)-36.6 ??C (97.9 ??F)] Heart Rate Heart Rate: 79 Heart Rate: [66-79] Blood Pressure BP: 161/82 mmHg BP: (119-161)/(53-82) Respiratory Rate Resp: 18 Resp: [18] SpO2 SpO2: 96 % SpO2: [93 %-97 %] Physical Exam Nursing note and vitals reviewed. Constitutional: He is oriented to person, place, and time. He appears well- developed and well-nourished. No distress. HENT: Head: Normocephalic and atraumatic. Mouth/Throat: Oropharynx is clear and moist. Eyes: Right eye exhibits no discharge. Left eye exhibits no discharge. No scleral icterus. Neck: No JVD present. No tracheal deviation present. Cardiovascular: Normal rate, regular rhythm, normal heart sounds and intact distal pulses. Exam reveals no gallop and no friction rub. No murmur heard. Pulmonary/Chest: Effort normal and breath sounds normal. No respiratory distress. He has no wheezes. He has no rales. Abdominal: Soft. Bowel sounds are normal. He exhibits no distension. There is no tenderness. Musculoskeletal: Normal range of motion. He exhibits no edema. Neurological: He is alert and oriented to person, place, and time. Skin: Skin is warm and dry. He is not diaphoretic. No erythema. Psychiatric: He has a normal mood and affect. His behavior is normal. Lab Comments: Recent Labs Basename 10/10/13 0406 WBC 13.8* HGB 13.8 HCT 40.5 PLATELET 398* No results found for this basename: INR in the last 168 hours Recent Labs Basename 10/10/13 0406 NA 134* K 4.3 CL 99 CO2 23 BUN 29* CREATININE 1.09 No results found for this basename: AST:3,ALT:3,ALKPHOS:3,BILITOT:3,BILIDIR:3 in the last 168 hours Recent Labs Basename 10/10/13 0406 CALCIUM 9.6 MAGNESIUM -- PHOS -- Recent Labs Basename 10/09/13 2141 10/09/13 1555 CK 78 89 89 TROPONINT <0.03 <0.03 Pertinent Radiographic/Diagnostic Results: I have independently visualized the following studies: ECG: Sinus Rhythm at [address] depression in V4-V6. Nuclear Medicine Stress: 10/10/13 Findings No fixed or reversible perfusion defects are present. Functional Analysis Myocardial function: There is normal wall motion and wall thickening. Left ventricular ejection fraction: 68% (normal >50%) Impression No ischemia or scar. Left ventricular function is normal. Assessment: Hieu Tillman is a 58 y.o. male with a history of ASCVD s/p stent to the LCx, PVD, HTN, HLD, COPD and carotid disease who presents to [facility] [place] transfer from [facility] on 10/09 with atypical chest discomfort while at cardiac rehab program. Overnight he remained pain free. However, this morning hedeveloped chest discomfort similar to his previous pain while undergoing a nuclear medicine stress test as well as new ST segment depression in his inferior and lateral leads. Although this episode of pain resolved he also experienced chest discomfort with ambulation to the bathroom. His EKG at that time showed an approximately 0.5 ST segment depression in V4-V6. Although his nuclear medicine stress does not show an area of obvious myocardial ischemia his continued unstable angina and ST segment changes are concerning for a cardiovascular origin. His test wassub-optimal as he was not given regadenoson due to the development of chest pain and ST segment depression. We have spoken with interventional cardiology who will perform a cardiac catheterization and may use FFR to evaluate moderate lesions seen a month ago. Plan: Chest Pain: Concerning for myocardial ischemia Nitroglycerin infusion if needed for continued chest discomfort Cardiac catheterization this afternoon Hyperlipidemia: Started on Lipitor 80mg daily at last discharge. Will follow-up as an outpatient. Hypertension: Blood pressure well controlled on current antihypertensive regimen. Will follow blood pressure trends. Tobacco abuse: Currently abstaining from cigarettes, using nicotine patch for 48 hours at a time. Explained duration of medication release however patient comfortable with this dosing schedule. Patch 7 mg/day Discussed with Mila Mccall MD Janette Stender, APRN 10/10/2013 Attending Addendum I personally conducted comprehensive rounds with the associate provider on this patient today. As the attending of record, I supplemented the history by interviewing the patient I performed an exam with focused inquiry and attention to the cardiopulmonary findings . I reviewed the pertinent laboratory and other data today and supervised the development of the plan of care for each. 1. Chest pain syndrome 2. ASCVD with recent 1v PCI 3. Tobacco abuse, recently quit 4. COPD Mr. Tillman's chest pain symptoms have not really changed in any significant way since the PCI about a month ago. The chest pain has both typical and atypical features. We elected to pursue an exercise nuclear stress test. The test was done with the patient taking beta blockers. He exercised per the Stevo protocol to ~7 METS of exertion, he had typical anginal symptoms with stress and 1-[address] depressions in the inferior and anterolateral leads, these symptoms and EKG changes occurred at heart rate of 110 bpm which was below target HR for this patient. The supervising physician stopped the stress test and planned to switch to a vasodilator stress test. However the patient's angina persisted for several minutes, about 5 minutes after the exercise stress test the radiotracer stress dose was injected. The patient never received regadenoson. His chest pain and EKG changes with the stress test suggest ischemia, the perfusion images do not confirm ischemia however the perfusion images may be falsely negative since the stress perfusion images were obtained at least 5 minutes after the treadmill stress. A diagnostic angiogram with possible FFR of the OM's is a viable next step to clarify his chest pain syndrome. The patient would like to pursue the angiogram for better clarificat ion of the nature of his chest pain. Mila Mccall MD Staff Television News Producer Pager: [phone] I am a credentialed lumber driver at [facility] and I am the attending of record for the patient's admission. I certify that this patient meets or has met the criteria for inpatient treatment for their acute condition meeting a minimum of two midnights. The acute conditions are detailed above documented in this encounter H&P Notes * Mila Mccall MD - 10/09/2013 4:09 PM EDT Cardiology Admission H&P Patient Name: Hieu Tillman Date of : 1955 Age: 58 y.o. Hospital Admit Date: 10/09/2013 Inpatient Attending: Mila Mccall MD PCP: EDIN MESSINA MD Presenting Diagnosis/Chief Complaint: Chest pain Active Problem List: Active Hospital Problems Diagnosis ??? Chest pain ??? CAD (coronary artery disease) CARDIAC CATHETERIZATION - Procedure: Coronary Angiography 09/11/13 LM: normal LAD: mild diffuse disease, mid 50% stenosis LCx: mild diffuse disease, prox 60% involving the bifurcation, 85% mid stenosis which received a stent OM1: 60% ostial, moderate sized vessel involving the bifurcation RCA: normal Patient enrolled in ABSORB trial ??? Tobacco abuse Quit 09/11/13, had been smoking 10 cigarettes prior to starting the patch, has been smoke free sinceusing the patch 10/09/13 Has been wearing patches 2 days, doing well smoke free ??? Emphysema/COPD ??? Hyperlipidemia ??? Hypertension Resolved Hospital Problems Diagnosis Date Resolved No resolved problems to display. History of Present Illness: HPI Comments: Patient is 58 year old who has a history of CAD with recent MISTY placed September 12, 2013, hypertension, hyperlipidemia and former tobacco user (quit with last admit, now using nicotine patch) who was sent to the [facility] ED today after having chest pressure while using arm bike at cardiac rehab. The pain was so strong that he had to stop exercising. He rated it a 6-7/10 on the pain scale. He states that he felt well for 3-4 days following his discharge then he developed left chest pressure that he could feel moving into the center of his chest. He would let this pressure develop and then take a sl nitroglycerin or try to belch when it was at its worst. He would sit down and take a sl nitroglycerin and this pressure would resolve. He has also been taking additional antacids to see if they would be helpful. This time he didn't have the bilateral arm numbness that he had back in August 2013. He has no palpitations, nausea, radiation to his arms or diaphoresis. He continues to have diarrhea once a week which he calls his 'clean out day'. He has noticed on this day he has not beenhaving any chest pain episodes. He has been taking all his meds in the morning without incident. The pain this past month has come on only one other time at cardiac rehab, it was last week on the treadmill and he was able to 'push through it.' Other episodes have been when he has been up at night returning from the bathroom or just walking to his car. He told his PCP who has been increasing his metoprolol, where he is now at 150 mg daily. With the increase in the metoprolol dosing he has noticed that he would feel rotten for two days and then he would be back to his normal self. He arrives pain free from [facility]. Past Medical History: Past Medical History Diagnosis Date ??? Hyperlipidemia ??? Hypertension ??? Low back pain radiating to right leg ??? Urinary incontinence ??? COPD (chronic obstructive pulmonary disease) ??? Tobacco abuse ??? Carotid stenosis 10/28/2011 ??? PVD (peripheral vascular disease) 10/28/2011 ??? Coronary artery disease Surgical History/Problems: No past surgical history on file. Significant Family History: Family History Problem Relation Age of Onset ??? Emphysema Mother ??? Hypertension Father ??? Hyperlipidemia Father ??? Cerebrovasular Accident Father Social History: History Social History ??? Marital Status: Spouse Name: N/A Number of Children: 5 ??? 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 Smoking status: Former Smoker -- 1.0 packs/day Quit date: 09/11/2013 ??? Smokeless tobacco: Not on file ??? Alcohol Use: No Comment: Sober 22 years the summer ??? Drug Use: No ??? Sexually Active: Not on file Other Topics Concern ??? Not on file Social History Narrative Lives with his in [place], [place]. Retired from [employer] where he did repairs for 40 years. Has 5 children and many grandchildren. REVIEW OF SYSTEMS: Review of Systems Constitutional: Positive for activity change. Negative for diaphoresis, fatigue and unexpected weight change. HENT: Negative for congestion, sore throat, mouth sores, trouble swallowing and tinnitus. Respiratory: Negative for shortness of breath. Cardiovascular: Positive for chest pain. Negative for palpitations and leg swelling. Gastrointestinal: Positive for diarrhea (once a week). Negative for nausea, vomiting, constipation and blood in stool. Genitourinary: Negative for dysuria, urgency, frequency and hematuria. Musculoskeletal: Negative for joint swelling and gait problem. Skin: My left leg was black and blue but it got better. (post cath) Neurological: Negative for dizziness, syncope, weakness, light-headedness, numbness and headaches. Psychiatric/Behavioral: Negative for confusion. The patient is not nervous/anxious. All other systems reviewed and are negative. Medications: Prescriptions prior to admission Medication Sig Dispense Refill ??? metoprolol succinate (TOPROL-XL) 100 mg XL tablet Take 150 mg by mouth daily. ??? atorvastatin (LIPITOR) 80 mg tablet Take 1 tablet by mouth daily. 30 tablet 2 ??? clopidogrel (PLAVIX) 75 mg tablet Take 1 tablet by mouth daily. 90 tablet 3 ??? nicotine (NICODERM CQ) 14 mg/[address] 1 patch onto the skin daily. 28 patch 0 ??? nitroGLYcerin (NITROSTAT) 0.4 mg SL tablet [...] Take 1 tablet by mouth daily. ??? naproxen sodium (ALEVE) 220 mg Cap Take 440 mg by mouth as needed. For back pain. ??? salmeterol (SEREVENT) 50 mcg/dose diskus inhaler Inhale 1 puff into the lungs 2 times daily. ??? aspirin 81 mg EC tablet Take 81 mg by mouth daily. ??? albuterol-ipratropium (COMBIVENT) 18-103 mcg/Actuation inhaler 2 Puff(s), Inh, Twice daily Allergies: Allergies Allergen Reactions ??? Contrast (Iodine-Iodine Containing) Anaphylaxis and Hives He has tolerated IV dye since with premedication. History of anaphylaxis as well. PHYSICAL EXAM: Last set of vital signs: BP 119/70 Pulse 66 Temp 36.5 ??C (97.7 ??F) (Oral) Resp 18 Ht 162.6 cm (5' 4) Wt 69.5 kg (153 lb 3.5 oz) BMI 26.29 kg/m2 SpO2 97% Physical Exam Nursing note and vitals reviewed. Constitutional: He is oriented to person, place, and time. He appears well- developed and well-nourished. No distress. HENT: Head: Normocephalic and atraumatic. Eyes: Right eye exhibits no discharge. Left eye exhibits no discharge. Neck: Normal range of motion. Neck supple. No JVD present. Cardiovascular: Normal rate, regular rhythm, normal heart sounds and intact distal pulses. Exam reveals no gallop and no friction rub. No murmur heard. Pulmonary/Chest: Effort normal and breath sounds normal. No respiratory distress. He has no wheezes. He has no rales. Abdominal: Soft. Bowel sounds are normal. He exhibits no distension. There is no tenderness. There is no rebound. Musculoskeletal: Normal range of motion. He exhibits no edema. Neurological: He is alert and oriented to person, place, and time. Skin: Skin is warm and dry. He is not diaphoretic. Psychiatric: He has a normal mood and affect. His behavior is normal. Diagnostics: I have independently visualized the following studies: ECG: HR 61 sinus rhythm with no acute change LABS: No results found for this or any previous visit (from the past 24 hour(s)). From [facility] WBC 10.75 Hgb 13.8 Hct 40.4 Plt 414 PT 9.5 INR 1.0 PTT 24.4 Na 137 K 4.5 Cl 101 CO2 27.4 BUN 25 Cr 1.2 Glucose 105 Ca 9.1 Mag 2.0 #1 #2 #3 CK CK-MB Troponin .03 ASSESSMENT: Patient is 58 year old who enrolled in the absorb trial for his last cath and had a Cx intervention. He has quit cigarettes using the patch and is doing well with this lifestyle change. He has had chest pressure off and on for the past month. Again there are some typical and atypical features-improves with belching and isn't present on the day when he has diarrhea. Chest pressure that resolves with sl nitroglycerin and has occurred with exertion but not consistently. Will likely need a stress test to see if there is ischemia in the moderate areas of blockage that were seen in his Cx and OM. TREATMENT PLAN: Chest pain Cycle cardiac enzymes Nuclear stress test tomorrow if he rules out CAD Continue aspirin, statin, DARWIN, beta yaneth, plavix and prn nitroglycerin Tobacco abuse Drop down to nicotine patch 7 mg/day He had been using a 14 mg patch for 2 days prior to his admission (no longer using cigarettes) Able to taste his food, very pleased with himself Encouragement to continue smoking cessation provided COPD On home inhalers Hypertension On lisinopril 10 mg and metoprolol xl 150 mg daily Will follow trends Hyperlipidemia On statin, which was started last month Continue atorvastatin 80 mg daily Discussed with Mila Mccall MD Provider: ANITHA CARLOS APRN Provider #: [id number] 10/09/2013 Attending Addendum I personally conducted comprehensive rounds with the associate provider on this patient today. As the attending of record, I supplemented the history by interviewing the patient I performed an exam with focused inquiry and attention to the cardiopulmonary findings . I reviewed the pertinent laboratory and other data today and supervised the development of the plan of care for each. I identified the primary clinical diagnoses prompting the admission and addressed the medical decision-making with the patient as follows: 1. Chest pain syndrome 2. ASCVD with recent 1v PCI 3. Tobacco abuse, recently quit 4. COPD Mr. Tillman's chest pain symptoms have not really changed in any significant way since the PCI about a month ago. His chest pain has atypical features in that it does not come on with exertion, is relieved with belching. However, the pain does improve with NTG. He's been participating in cardiac rehab and has two episodes of chest pain at rehab in the last week but on two other occasions he participated in the rehab without issues. EKG and cardiac enzymes are normal. Unclear if this chest pain syndrome represents angina. The symptoms are not occuring in an unstablepattern. A stress test is the best next step, I discussed this with the patient and his family who agreed to participate in an exercise stress test tomorrow. I am a credentialed lumber driver at [facility] and I am the attending of record for the patient's admission. I certify that this patient meets or has met the criteria for inpatient treatment for their acute condition meeting a minimum of two midnights. The acute conditions are detailed above Mila Mccall MD Staff Television News Producer Pager: [phone] documented in this encounter Procedure Notes * Provider, Scanning - 10/17/2013 11:49 AM EDTAssociated Order(s): CARDIAC CATHETERIZATION * Provider, Scanning - 10/15/2013 10:32 AM EDTAssociated Order(s): SCAN DOC: KEYBOARDING CLERK * Provider, Scanning - 10/12/2013 12:09 PM EDTAssociated Order(s): SCAN DOC: KEYBOARDING CLERK * Provider, Scanning - 10/10/2013 5:00 PM EDTAssociated Order(s): CARDIAC CATHETERIZATION documented in this encounter Miscellaneous Notes * Miscellaneous - Provider, Scanning - 10/12/2013 12:09 PM EDT * Miscellaneous - Provider, Scanning - 10/12/2013 12:09 PM EDT * Miscellaneous - Provider, Scanning - 10/12/2013 12:09 PM EDT * Consult Note - Evelyne Ledbetter RN - 10/11/2013 10:16 AM EDT Cardiac Rehabilitation Inpatient Evaluation Primary Cardiac Diagnosis: recurrent CP after PCI last month; s/p stent/PTCA yesterday Cardiac Risk Factors: Smoking: has not smoked since last admission ! Fully committed to maintaining this; on patch Overweight: no Hyperlipidemia: on rx Sedentary: active; started formal exercise in cardiac rehab prog last month HTN: yes; on rx Family history: ? DM: no Stress: denies Patient Education: Reviewed cardiac cath findings, implications of coronary artery disease, managing angina and risk factor modification. This info was reviewed with him last month Phase II Referral: Is currently enrolled in cardiac rehab @ [facility]; will return Activity Summary: By discharge, patient will be able to perform self care, walk 5-7 minutes and go up and down stairs without signs or symptoms of ischemia. Date /Initials Baseline Response Symptoms/Comments 10/11/13 Activity HR 89 110 candice well except for some SOB ; had not had 5-6walk BP 135/61 145/61 His am inhalers yet 26 stairs O2 Sat 97 97 ECG nsr nsr * Discharge Summary - Mila Mccall MD - 10/10/2013 5:38 PM EDT Discharge Summary Patient Name: Hieu Tillman Patient Age: 58 y.o. Language: [place] Race: White Ethnicity: Not nor Admit date: 10/09/2013 Discharge date and time: 10/11/2013 11:37 AM Attending Physician: Mila Mccall MD Discharge Physician: Mila Mccall MD Follow-up Recommendations for Providers: Continue to encourage smoking cessation Follow up on left groin site Inpatient Provider Contact Information: ANITHA Panda CARLOS, EXPANDER [phone] Discharge Diagnoses (Hospital Problems) and Secondary Diagnoses (Chronic Problems): Primary Diagnosis 1. Unstable angina Secondary Diagnosis Active Hospital Problems Diagnosis ??? Chest pain ??? CAD (coronary artery disease) CARDIAC CATHETERIZATION [...] 2 days, doing well smoke free ??? Emphysema/COPD ??? Hyperlipidemia ??? Hypertension Resolved Hospital Problems Diagnosis Date Resolved No resolved problems to display. Active Non-Hospital Problems Diagnosis ??? Carotid stenosis ??? PVD (peripheral vascular disease) R JAYA stent 12/07/11 ??? Low back pain radiating to right leg Operations/Major Procedures: Cardiac cath 10/10/13 one vessel disease of the LCX. Stent to 75% ostial OM1 (3X20 mm Promus Premier) and PTCA of mid LCX History of Presentation: Patient is 58 year old who has a history of CAD with recent MISTY placed September 12, 2013, hypertension, hyperlipidemia and former tobacco user (quit with last admit, now using nicotine patch) who was sent to the [facility] ED today after having chest pressure while using arm bike at cardiac rehab. The pain was so strong that he had to stop exercising. He rated it a 6-7/10 on the pain scale. He states that he felt well for 3-4 days following his discharge then he developed left chest pressure that he could feel moving into the center of his chest. He would let this pressure develop and then take a sl nitroglycerin or try to belch when it was at its worst. He would sit down and take a sl nitroglycerin and this pressure would resolve. He has also been taking additional antacids to see if they would be helpful. This time he didn't have the bilateral arm numbness that he had back in August 2013. He has no palpitations, nausea, radiation to his arms or diaphoresis. He continues to have diarrhea once a week which he calls his 'clean out day'. He has noticed on this day he has not beenhaving any chest pain episodes. He has been taking all his meds in the morning without incident. The pain this past month has come on only one other time at cardiac rehab, it was last week on the treadmill and he was able to 'push through it.' Other episodes have been when he has been up at night returning from the bathroom or just walking to his car. He told his PCP who has been increasing his metoprolol, where he is now at 150 mg daily. With the increase in the metoprolol dosing he has noticed that he would feel rotten for two days and then he would be back to his normal self. He arrives pain free from [facility]. Hospital Course: Angina The nature of his chest pain was not clear initially. He had undergone a PCI to the LCx about a month prior to admission and had no relief of chest pain symptoms. We elected to pursue an exercise stress test with nuclear imaging to clarify the nature of his symptoms. The stress test yesterday demonstrated typical angina and ST depression at 7 METS of exertion, the stress isotope injection occurred 5-8 minutes after termination of exercise which may account for why the test did not show a perfusion defect. Given the clinical story and non-imaging findings on the exercise stress test we opted to pursue an angiogram with FFR of the obtuse marginal branch. The flow wire showed a significant grad ient across the large OM branch even at resting conditions. This indicates a highly physiologic significant lesion. He has done well with smoking cessation and he will continue the nicotine patch and the remainder of his pre-existing secondary prevention regiment. He received a single drug eluting stent to 75% ostial OM1 (3X20 mm Promus Premier) with a kissing balloon at the proximal of end of the stent in the of mid LCX. He will continue the toprol XL 50 mg PO daily and plavix 75 mg PO daily for at least one year. Hyperlipidemia Lipid profile showed total cholesterol 138 with LDL 85. Patient has been on atorvastatin for the past 4 weeks, tolerating this well. Tobacco abuse Smoking cessation has been done since September 11, 2013. He is using the nicotine patch appropriately and is down to 7-14 mg/day. He will need ongoing support with his smoking cessation. The patient will be able to return to his cardiac rehab program in a week. The patient was discharged home in stable condition. Functional and Cognitive Status: Alert and oriented x 3 Important Studies and Lab Data: Labs: Lab Results Component Value Date WBC 22.0* 10/11/2013 HGB 13.1* 10/11/2013 HCT 38.1* 10/11/2013 PLATELET 370 10/11/2013 No results found for this basename: INR in the last 168 hours Lab Results Component Value Date NA 138 10/11/2013 K 4.3 10/11/2013 CL 103 10/11/2013 CO2 23 10/11/2013 BUN 23* 10/11/2013 CREATININE 0.99 10/11/2013 Recent Labs Basename 09/12/13 0430 TSH 0.54 Recent Labs Basename 09/12/13 0430 HA1C 6.1* Recent Labs Basename 10/11/13 0519 10/10/13 1600 10/09/13 2141 CK 53 59 78 TROPONINT <0.03 <0.03 <0.03 Lab Results Component Value Date CHLPL 117 10/11/2013 HDL 32* 10/11/2013 CHOLHDL 3.7 10/11/2013 TRIG 92 10/11/2013 LDLCHOL 67 10/11/2013 LDLDIRECT 85 09/12/2013 Pending Studies and Lab Data: none Discharge Conditions/Prognosis: Ambulatory without anginal symptoms Discharge to: Home Updated Allergies/ADRs: Allergies Allergen Reactions ??? Contrast (Iodine-Iodine Containing) Anaphylaxis and Hives He has tolerated IV dye since with premedication. History of anaphylaxis as well. Immunizations Given this Hospitalization: There is no immunization history on file for this patient. Discharge Medications: Your Medications As of 10/11/2013 11:37 AM Continued medications with new dosing Dose Details metoprolol succinate 50 mg 24 hr tablet Commonly known as: TOPROL-XL Take 1 tablet by mouth daily. What changed: - medication strength - dose 50 mg Quantity: 30 tablet Refills: 1 Continued medications, unchanged Dose Details aspirin 81 mg EC tablet Take 81 mg by mouth daily. 81 mg Refills: 0 atorvastatin 80 mg tablet Commonly known as: LIPITOR Take 1 tablet by mouth daily. 80 mg Quantity: 30 tablet Refills: 2 clopidogrel 75 mg tablet Commonly known as: PLAVIX Take 1 tablet by mouth daily. 75 mg Quantity: 90 tablet Refills: 3 COMBIVENT 18-103 mcg/actuation inhaler 2 Puff(s), Inh, Twice daily Generic drug: albuterol-ipratropium Refills: 0 FIBER CHOICE ORAL Take 1 tablet by mouth daily. 1 tablet Refills: 0 fluticasone 220 mcg/actuation inhaler Commonly known as: FLOVENT Inhale 1 puff into the lungs 2 times daily. 1 puff Refills: 0 hydrochlorothiazide 25 mg tablet Commonly known as: HYDRODIURIL Take 25 mg by mouth daily. 25 mg Refills: 0 lisinopril 10 mg tablet Commonly known as: PRINIVIL;ZESTRIL Take 10 mg by mouth daily. 10 mg Refills: 0 nicotine 14 mg/24 hr Commonly known as: NICODERM CQ Place 1 patch onto the skin daily. 1 patch Quantity: 28 patch Refills: 0 nitroGLYcerin 0.4 mg SL tablet Commonly known as: NITROSTAT Place 1 tablet under the tongue every 5 minutes as needed. 0.4 mg Quantity: 25 tablet Refills: 12 pantoprazole 40 mg tablet Commonly known as: PROTONIX Take 1 tablet by mouth daily. 40 mg Quantity: 30 tablet Refills: 2 salmeterol 50 mcg/dose diskus inhaler Commonly known as: SEREVENT Inhale 1 puff into the lungs 2 times daily. 1 puff Refills: 0 STOPPED Medications ALEVE 220 mg Cap Generic drug: naproxen sodium Smoking Status at Discharge: History Smoking status ??? Former Smoker -- 1.0 packs/day ??? Quit date: 09/11/2013 Smokeless tobacco ??? Not on file Instructions Given to Patient at Discharge: Provider Instructions None General Instructions Anti-coagulation follow up: n/a Call your doctor if: Chest pain, shortness of breath, pain or swelling in legs occurs. If you have non-emergent questions between now and the time of your follow up appointments: During 8am-5pm Wednesday through Wednesday call [phone] to speak with a nurse in the cardiology clinic All other times call [phone] and ask to speak to the language interpreter money position officer. Return to work: One week Driving: No driving for 48 hours after catheterization. Follow up Appointments: PCP EDIN MESSINA MD to see you on October 18 at 240 pm. Please call [phone] Lauri Winn to see you in [place] on WednesdayOctober 16 at 930 am as previously arranged. Please call his office at [phone]. Home oxygen therapy: N/A Arrangements for VNA/home care: none Future Appointments and Orders Future Appointments: Provider: Department: Dept Phone: Center: 10/16/2013 9:30 AM Lauri Winn Jr., MD [place] [facility] [phone] None Future Orders Please Complete By Expires Referral to Cardiac Rehab [[id number] Custom] Process Instructions: If no progress note charted, please enter Clinical details in comments. Scheduling Instructions: Comments: Return to cardiac rehab @ [facility] Questions: Responses: Reason for referral angina,stent Discharge References/Attachments None MILA MCCALL MD >30 minutes were spent on this inpatient discharge. * Miscellaneous - Provider, Wandy - 10/09/2013 2:57 PM EDT documented in this encounter Plan of Treatment Upcoming Encounters Date Type Department Care Team (Late st Contact Info) Description 01/10/2024 7:45 AM EDT Appointment Hematology [place] [address] 01/21/2024 10:[address] [place] [address] Heber Phillips MD [facility] [address] HEMATOLOGY/[place] [address] 03/28/2024 10:00 AM EDT Office Visit Hematology/Oncology at [address] [phone] Heber Phillips MD [facility] [address] HEMATOLOGY/[place] [address] Isabella Baker APRN [facility] [place] [address] Scheduled Orders Name Type Priority Associated Diagnoses Orde r Schedule EKG 12 Lead ECG Routine Angina at rest Scheduled @ 0600 for 1 Occurrences starting 10/11/2013 until 10/11/2013 Scheduled Referrals Name Type Priority Associated Diagnoses Orde r Schedule Referral to Cardiac Rehab Outpatient Referral Routine S/P coronary artery stent placement Ordered: 10/11/2013 documented as of this encounter Procedures Procedure Name Priority Date/Time Associated Diagnosis Comments CARDIAC CATHETERIZATION Routine 12/06/19 10:49 AM EDT KEYBOARDING CLERK SCAN 10/15/2013 10:32 AM EDT KEYBOARDING CLERK SCAN 10/12/2013 12:09 PM EDT EKG 12-LEAD Routine 10/11/2013 8:27 AM EDT Chest pain BMP W/FASTING GLUCOSE Routine 10/11/2013 5:19 AM EDT SCAN, PERIPHERAL BLOOD Routine 4 5:19 AM EDT DIFFERENTIAL, AUTOMATED Routine 10/12/19 14 5:19 AM EDT CARDIAC ENZYMES ([facility]) Routine 10/11/2013 5:19 AM EDT CBC (WITH DIFF) Routine 10/11/2013 5:19 AM EDT LIPID PANEL (REFLEX DIRECT LDL) Routine 10/11/2013 5:19 AM EDT EKG 12-LEAD Routine 10/10/2013 4:00 PM EDT CAD (coronary artery disease) CARDIAC ENZYMES ([facility] STAT 10/10/2013 4:00 PM EDT EKG 12-LEAD STAT 10/10/2013 11:12 AM EDT Chest pain NM EXERCISE STRESS AND REST MYOCARDIAL PERFUSION Routine 10/10/2013 9:40 AM EDT EKG 12-LEAD Routine 10/10/2013 7:22 AM EDT Chest pain BMP W/FASTING GLUCOSE Routine 10/10/2013 4:06 AM EDT DIFFERENTIAL, AUTOMATED Routine 10/11/19 14 4:06 AM EDT CBC (WITH DIFF) Routine 10/10/2013 4:06 AM EDT NUCLEAR STRESS CARDIOLOGY RESULTS Routine 10/10/2013 Angina at rest CARDIAC ENZYMES ([facility] STAT 10/09/2013 9:41 PM EDT MISCELLANEOUS LAB REQUEST Routine 10/09/2013 3:55 PM EDT CARDIAC ENZYMES ([facility]) STAT 10/09/2013 3:55 PM EDT EKG 12-LEAD STAT 10/09/2013 3:22 PM EDT Chest pain documented in this encounter Results * Cardiac Catheterization (12/05/2020 10:49 AM EDT) Anatomical Region Laterality Modality Other Narrative 12/05/2020 10:49 AM EDT ?[facility] ? Cardiac Catheterization/Intervention Report ? Patient Name: Hieu Tillman. ? Procedure Date: 10/10/2013 ? A #: [id number] ? Primary Physician: Stevo Dalton ? Case #: [id number] ? File Name: [id number] ? Catheterization Order Number: [id number] ? [facility] ? Final Report [place], [place] ? Patient Name: ? Hieu M. Tillman ? ID#: ?[id number] ? : ?1955 ? Procedure Date: ? October 10, 2013 ? Case #: ? [id number] ? Room: ? 5 ? Case Physician: ? Stevo Dalton M.D. ?Start: ?14:25 ?Fellow: ? José Miguel Gong M.D. ? Admission: ??10/09/2013 ? Discharge: ??10/11/2013 ? Referring ? Edin Messina M.D. ? Physicians: ?Joshua Kumari M.D. ? Procedures: ?* Coronary Angiography ?* Left Heart Catheterization ?* Coronary Ultrasound ?* Coronary Flow Montverde Measurement (FFR) ?* Coronary Angioplasty ?* Coronary Stent Insertion ?* Vascular Closure Device Deployment ?* Access Site Angiography ? History ?Hieu Tillman is a 58 year old man. He has hypertension. The patient has a ?history of smoking. He has hypercholesterolemia managed with lipid ?therapy. The patient has unstable angina, negative troponin, a history of ?chest pain and a prior history of coronary artery disease. He had a ?recent coronary intervention procedure. The patient has a history of ?carotid artery disease. He has a history of peripheral vascular disease. ?The patient has a history of chronic obstructive pulmonary disease. He ?has a history of an abnormal EKG. The patient also has a history of a dye ?allergy. Prior to the initiation of this procedure, the patient was ?designated as ASA Class IV. ? Indications for Diagnostic Cath: ?[place] [employer] Society angina class was IV. ? Technique: ?A 6Fr sheath was inserted in the left femoral artery utilizing the ?Seldinger technique. The left coronary artery was injected utilizing a ?6Fr EBU 4.0 catheter. Coronary angioplasty and coronary stent insertion ?were performed and the equipment utilized will be described in the ?intervention summary section. Bivaluridin bolus 53mg and infusion ?123mg/hr was administered. Intracoronary nitroglycerin was given during ?this case. A total of 200cc of Omnipaque were opened, 190cc of Omnipaque ?were administered and 10cc of Omnipaque were wasted. Radiation: Fluoro ?time was 14.5 minutes, dose area product was 49,331 mGYcm2 and air kerma ?was 960 mGY. See the case log for additional details. ?The patient received the following medications prior to and during the ?procedure: Bivalirudin. ? Hemodynamics: ?Left Heart Pressures ? Resting: ? Syst Diast ? EDP ?a ?v ? m ?Ao 105 ?? 57 ?84 ? Coronary Angiography: ?Dominance: Left ?Left Main ? The left main was normal, free of disease. ?Left Anterior Descending ? There was mild diffuse (<=25% stenosis) disease of the entire vessel ? segment of the left anterior descending artery (LAD). ??The mid ? segment of the LAD had a single discrete 40% stenosis. ?Left Circumflex ? There was a 50% single discrete stenosis of the mid segment of the ? left circumflex artery (LCX). ? There was a 75% single discrete stenosis of the ostial segment of ? the first obtuse marginal branch (OM1) of the LCX. ?Right Coronary Artery ? There was mild diffuse (<=25% stenosis) disease of the entire vessel ? segment of the right coronary artery (RCA). ? Indication for Intervention: ?Coronary intervention was indicated for treatment of high risk unstable ?angina. The priority for the procedure was Urgent. ? Intervention Summary: ?Left Circumflex Artery ? Mid 50% ? Angioplasty was performed on the 50% stenosis in the mid ? segment of the LCX. This was a de rupal lesion. According to ? the ACC/AHA classification system, this lesion was a type B2 ? moderate risk lesion. This bifurcation lesion was treated with ? a single stent, side branch dilated post stent technique. ? Angioplasty was accomplished through a 6 Fr EBU 4.0 guide ? utilizing an [place] 12 mm balloon with a maximum size of 2.00mm ? and a maximum inflation pressure of 15 atmospheres. ? The final outcome was defined as successful. There was no ? residual stenosis following this intervention. ?First Obtuse Marginal Branch of the LCX ? Ostial 75% ? Stent insertion was performed on the 75% stenosis in the ? ostial segment of the OM1. This was a de rupal lesion. This ? lesion was designated a type B2 moderate risk lesion based on ? ACC/AHA classification system. Primary prevention of ? restenosis was the indication for stent insertion. The lesion ? involves a bifurcation with the LCX. This bifurcation lesion ? was treated with a single stent, side branch dilated post ? stent technique and a final kissing balloon post- dilation. ? Stent insertion was accomplished through a 6 Fr. EBU 4.0 ? guide. ??The lesion was predilated with a 2.50mm [place] 12 mm ? balloon with a maximum inflation pressure of 16 atmospheres. ? A premounted 3.00 x 20 mm Promus Premier (MISTY) was deployed ? with a maximum inflation pressure of 16 atmospheres. ? Following stent deployment, the lesion was dilated using a ? 3.50mm NC Quantum [place] 12 mm balloon with a maximum inflation ? pressure of 15 atmospheres. ? The final outcome was defined as successful. There was no ? residual stenosis following this intervention. Distal flow was ? normal. ? Vascular Access: ?Vascular Access Angiogram: ? A selective angiogram at the left femoral artery revealed moderate ? diffuse disease. A closure device is contraindicated due to evidence ? of obstructive peripheral vascular disease. ? Conclusions: ?* One vessel coronary artery disease (LCX) ?* Successful stent insertion of the ostial OM1 lesion ?* Successful angioplasty of the mid LCX lesion ? Complications/Events: ?The patient had no complications during these procedures. ? Comments: ?FFR ?This was pwerformed in two area of the circumflex vessel with a volcano ?FFR wire. Initially the main circumflex was interrogated. The FFR wire ?was advanced across the stenosis and adenosine 140 ug/kg/min was infused. ?The FFR was 0.98. Then the wire was advanced into the OM1 branch. The FFR ?was 0.74 and this is consistent with significant disease. ?Intervention ?Using two wires the main circumflex and OM1 branches were crossed. The ?OM1 lesion confirmed by FFR was pre-dilated and stented. The distal OM1 ?wire was then advanced through the side cell of the stent into the distal ?circumflex and the wire from the distal circumflex was withdrawn and ?advanced into the OM1. Post-dilation balloons were advanced into each arm ?of the bifurcation and a kissing inflation was performed. Stent ?apposition was then confirmed by IVUS ?IVUS ?This was performed in the circumflex vessel using a volcano zuni eye ?catheter. This showed the stent was well expanded and apposed. The distal ?reference diameter was 3 mm and the proximal reference diameter was 3.5 ?mm. ?The attending physician was present for the entire procedure. ?Dr. Stevo Dalton M.D. performed the coronary angiography, left heart ?catheterization, access site angiography, vascular closure device, FFR # ?coronary, stent insertion-coronary, IVUS # coronary and ?angioplasty-coronary. ? Stevo Dalton, M.D. ? Electronically Signed by: Stevo Dalton M.D. ? Report Finalized: 10/10/2013 ??16:48 ? Report Last Ammended: 12/05/2020 ??10:43 ? Procedure Note Stevo Dalton MD - 12/05/2020 [facility] Cardiac Catheterization/Intervention Report Patient Name: Hieu Tillman Procedure Date: 10/10/2013 A #: [id number] Primary Physician: Stevo Dalton Case #: [id number] File Name: [id number] Catheterization Order Number: [id number] [facility] FinalReport [place], [place] Patient Name: Hieu Tillman ID#:[id number] :1955 Procedure Date: October 10, 2013 Case #: [id number] Room: 5 Case Physician: Stevo Dalton M.D. Start: 14:25 Fellow: José Miguel Gong M.D. Admission:10/09/2013 Discharge:10/11/2013 Referring Edin Messina M.D. Physicians: Joshua Kumari M.D. Procedures: * Coronary Angiography * Left Heart Catheterization * Coronary Ultrasound * Coronary Flow Montverde Measurement (FFR) * Coronary Angioplasty * Coronary Stent Insertion * Vascular Closure Device Deployment * Access Site Angiography History Hieu Tillman is a 58 year old man. He has hypertension. The patienthas a history of smoking. He has hypercholesterolemia managed with lipid therapy. The patient has unstable angina, negative troponin, ahistory of chest pain and a prior history of coronary artery disease. He had a recent coronary intervention procedure. The patient has a history of carotid artery disease. He has a history of peripheral vasculardisease. The patient has a history of chronic obstructive pulmonary disease.He has a history of an abnormal EKG. The patient also has a history ofa dye allergy. Prior to the initiation of this procedure, the patient was designated as ASA Class IV. Indications for Diagnostic Cath: [place] [employer] Society angina class was IV. Technique: A 6Fr sheath was inserted in the left femoral artery utilizing the Seldinger technique. The left coronary artery was injected utilizinga 6Fr EBU 4.0 catheter. Coronary angioplasty and coronary stentinsertion were performed and the equipment utilized will be described in the intervention summary section. Bivaluridin bolus 53mg and infusion 123mg/hr was administered. Intracoronary nitroglycerin was givenduring this case. A total of 200cc of Omnipaque were opened, 190cc ofOmnipaque were administered and 10cc of Omnipaque were wasted. Radiation:Fluoro time was 14.5 minutes, dose area product was 49,331 mGYcm2 and airkerma was 960 mGY. See the case log for additional details. The patient received the following medications prior to and duringthe procedure: Bivalirudin. Hemodynamics: Left Heart Pressures Resting: Syst Diast EDP a v m Ao 105 57 84 Coronary Angiography: Dominance: Left Left Main The left main was normal, free of disease. Left Anterior Descending There was mild diffuse (<=25% stenosis) disease of the entirevessel segment of the left anterior descending artery (LAD). The mid segment of the LAD had a single discrete 40% stenosis. Left Circumflex There was a 50% single discrete stenosis of the mid segment ofthe left circumflex artery (LCX). There was a 75% single discrete stenosis of the ostial segmentof the first obtuse marginal branch (OM1) of the LCX. Right Coronary Artery There was mild diffuse (<=25% stenosis) disease of the entirevessel segment of the right coronary artery (RCA). Indication for Intervention: Coronary intervention was indicated for treatment of high riskunstable angina. The priority for the procedure was Urgent. Intervention Summary: Left Circumflex Artery Mid 50% Angioplasty was performed on the 50% stenosis in the mid segment of the LCX. This was a de rupal lesion. Accordingto the ACC/AHA classification system, this lesion was a typeB2 moderate risk lesion. This bifurcation lesion was treatedwith a single stent, side branch dilated post stent technique. Angioplasty was accomplished through a 6 Fr EBU 4.0 guide utilizing an [place] View 12 mm balloon with a maximum size of2.00mm and a maximum inflation pressure of 15 atmospheres. The final outcome was defined as successful. There was no residual stenosis following this intervention. First Obtuse Marginal Branch of the LCX Ostial 75% Stent insertion was performed on the 75% stenosis in the ostial segment of the OM1. This was a de rupal lesion.This lesion was designated a type B2 moderate risk lesionbased on ACC/AHA classification system. Primary prevention of restenosis was the indication for stent insertion. Thelesion involves a bifurcation with the LCX. This bifurcationlesion was treated with a single stent, side branch dilated post stent technique and a final kissing balloonpost-dilation. Stent insertion was accomplished through a 6 Fr. EBU 4.0 guide. The lesion was predilated with a 2.50mm [place] View 12mm balloon with a maximum inflation pressure of 16atmospheres. A premounted 3.00 x 20 mm Promus Premier (MISTY) wasdeployed with a maximum inflation pressure of 16 atmospheres. Following stent deployment, the lesion was dilated usinga 3.50mm NC Quantum [place] View 12 mm balloon with a maximuminflation pressure of 15 atmospheres. The final outcome was defined as successful. There was no residual stenosis following this intervention. Distalflow was normal. Vascular Access: Vascular Access Angiogram: A selective angiogram at the left femoral artery revealedmoderate diffuse disease. A closure device is contraindicated due toevidence of obstructive peripheral vascular disease. Conclusions: * One vessel coronary artery disease (LCX) * Successful stent insertion of the ostial OM1 lesion * Successful angioplasty of the mid LCX lesion Complications/Events: The patient had no complications during these procedures. Comments: FFR This was pwerformed in two area of the circumflex vessel with Enverv FFR wire. Initially the main circumflex was interrogated. The FFRwire was advanced across the stenosis and adenosine 140 ug/kg/min wasinfused. The FFR was 0.98. Then the wire was advanced into the OM1 branch.The FFR was 0.74 and this is consistent with significant disease. Intervention Using two wires the main circumflex and OM1 branches were crossed.The OM1 lesion confirmed by FFR was pre-dilated and stented. The distalOM1 wire was then advanced through the side cell of the stent into thedistal circumflex and the wire from the distal circumflex was withdrawn and advanced into the OM1. Post-dilation balloons were advanced intoeach arm of the bifurcation and a kissing inflation was performed. Stent apposition was then confirmed by IVUS IVUS This was performed in the circumflex vessel using a volcano eagleeye catheter. This showed the stent was well expanded and apposed. Thedistal reference diameter was 3 mm and the proximal reference diameter was3.5 mm. The attending physician was present for the entire procedure. Dr. Stevo Dalton M.D. performed the coronary angiography, leftheart catheterization, access site angiography, vascular closure device, FFR# coronary, stent insertion-coronary, IVUS # coronary and angioplasty-coronary. Stevo Dalton M.D. Electronically Signed by: Stevo Dalton M.D. Report Finalized: 10/10/2013 16:48 Report Last Ammended: 12/05/2020 10:43 Transcriptions Provider, Scanning - 10/10/2013 5:00 PM EDT Provider, Scanning - 10/17/2013 11:49 AM EDT Mila Mccall MD CARDIAC CATH ORDERAB LES * SCAN DOC: KEYBOARDING CLERK (10/15/2013 10:32 AM EDT) Anatomical Region Laterality Modality Other Narrative 10/15/2013 10:35 AM EDT Procedure Note Provider, Scanning - 10/15/2013 10:32 AM EDT Scanning Provider MEDIA MGR SCAN EXT O RDR/RSLT * SCAN DOC: KEYBOARDING CLERK (10/12/2013 12:09 PM EDT) Anatomical Region Laterality Modality Other Narrative 10/12/2013 12:13 PM EDT Procedure Note Provider, Scanning - 10/12/2013 12:09 PM EDT Scanning Provider MEDIA MGR SCAN EXT O RDR/RSLT * EKG 12 Lead (10/11/2013 8:27 AM EDT) Ventricular rate 73 BPM MUSE SYSTEM Atrial Rate 73 BPM MUSE SYSTEM P-R Interval 148 ms MUSE SYSTEM QRS Duration 86 ms MUSE SYSTEM Q-T Interval 400 ms MUSE SYSTEM QTC Calculated (Bezet) 440 ms MUSE SYSTEM Calculated P [place] 71 degrees MUSE SYSTEM Calculated R [place] 67 degrees MUSE SYSTEM Calculated T [place] 73 degrees MUSE SYSTEM INTERPRETATION Normal sinus rhythm Low septal forces Otherwise normal ECG When compared with ECG of 10-OCT-2013 16:00, Questionabl e change in initial forces of Septal leads Confirmed by Joyce HIGUERA Trevin ([id number]) on 10/11/2013 10:49:44 AM MUSE SYSTEM 10/11/2013 8:27 AM EDT 10/11/2013 10:49 AM EDT Mila Mccall MD ECG ORDERABLES MUSE SYSTEM * (ABNORMAL) Differential, Automated (10/11/2013 5:19 AM EDT) Neutrophils % 90.3(H) 34.0 - 71.0 % CERNER MILLENNIUM Neutr Abs (ANC) 19.88(H) 1.50 - 6.30 x10(3)/mc L CERNER MILLENNIUM Lymphocytes % 4.5(L) 19.0 - 53.0 % CERNER MILLENNIUM Lymphocytes Abs 1.0 1.0 - 3.6 x10(3)/mc L CERNER MILLENNIUM Monocytes % 4.8 4.0 - 13.0 % CERNER MILLENNIUM Monocyte Abs 1.0 0.2 - 1.0 x10(3)/mc L CERNER MILLENNIUM Eosinophils % 0.0 0.0 - 7.0 % CERNER MILLENNIUM Eosinophils Abs 0.0 0.0 - 0.5 x10(3)/mc L CERNER MILLENNIUM Basophils % 0.0 0.0 - 2.0 % CERNER MILLENNIUM Basophils Abs 0.0 0.0 - 0.2 x10(3)/mc L CERNER MILLENNIUM Immature Gran % 0.40 0.00 - 0.66 % CERNER MILLENNIUM Comment: Immature granulocytes(IG's)percentage and absolute count will include metamyelocytes, myelocytes, and promyelocytes. Blood smears from CBCs yielding IG's will be scanned manually for concordance. If this scan disagrees with the automated IG or if promyelocytes are noted, a manual differential will be performed. Suri Gran Abs 0.09(H) 0.00 - 0.05 x10(3)/mc L CERNER MILLENNIUM Blood specimen (specimen) 10/11/2013 5:19 AM EDT 10/11/2013 5:35 AM EDT Mila Mccall MD HEMATOLOGY ORDERABLE S Performing Organization Address City/[facility] Co de Phone Number CERNER MILLENNIUM * Scan, Peripheral Blood (10/11/2013 5:19 AM EDT) Plat Estimate Normal CERNER MILLENNIUM RBC Morphology Normal CERNE R MILLENNIUM Blood specimen (specimen) 10/11/2013 5:19 AM EDT 10/11/2013 5:35 AM EDT Narrative Resulting Agency Comment Spec In Lab Mila Mccall MD HEMATOLOGY ORDERABLE S CERNER MILLENNIUM * (ABNORMAL) CBC (with Diff) (10/11/2013 5:19 AM EDT) WBC 22.0(H) 4.0 - 10.0 x10(3)/mcL CERNER MILLENNIUM RBC 4.36(L) 4.63 - 6.08 x10(6)/mcL CERNER MILLENNIUM Hemoglobin 13.1(L) 13.7 - 17.5 gm/dL CERNER MILLENNIUM Hematocrit 38.1(L) 40.0 - 51.0 % CERNER MILLENNIUM MCV 87.4 79.0 - 92.0 fL CERNER MILLENNIUM MCH 30.0 25.6 - 32.2 pg CERNER MILLENNIUM MCHC 34.4 32.0 - 36.5 gm/dL CERNER MILLENNIUM Platelets 370 145 - 370 x10(3)/mcL CERNER MILLENNIUM RDWSD 44.4 35.0 - 46.0 fL CERNER MILLENNIUM RDWCV 14.0 10.9 - 14.4 % CERNER MILLENNIUM MPV 9.4 9.0 - 12.0 fL CERNER MILLENNIUM Blood specimen (specimen) 10/11/2013 5:19 AM EDT 10/11/2013 5:35 AM EDT Narrative Resulting Agency Comment Spec In Lab Mila Mccall MD HEMATOLOGY ORDERABLE S CERNER MILLENNIUM * (ABNORMAL) BMP w/fasting Glucose (10/11/2013 5:19 AM EDT) Glucose Fasting 140(H) 65 - 99 mg/dL CERNER MILLENNIUM Comment: ?Fasting* Glucose Interpretive Criteria Normal ?65-99 mg/dL Impaired Fasting glucose ?100-125 mg/dL Consistent with Diabetes Mellitus ? >or= 126 mg/dL *Fasting is defined as no caloric intake for at least 8 hours In the absence of unequivocal hyperglycemia a plasma glucose value of >or= 126 mg/dL should be repeated on a subsequent day. Diagnosis and Classification of Diabetes Mellitus, Position Statement from the [place] Diabetes Association. ??Diabetes Care, Volume 33, Supplement 1, Jun 2009 BUN 23(H) 10 - 20 mg/dL CERNER MILLENNIUM Creatinine 0.99 0.80 - 1.50 mg/dL CERNER MILLENNIUM Comment: Please note that the pediatric reference intervals supplied above were not validated at [facility]. Results from pediatric patients should be interpreted in conjunction to the patient's age, height and muscle mass. Sodium 138 135 - 145 mmol/L CERNER MILLENNIUM Potassium 4.3 3.5 - 5.0 mmol/L CERNER MILLENNIUM Comment: Please note: ??Patients with WBC >100,000 may have falsely elevated Potassium levels. ??For accurate Potassium quantification in these patients send serum separator tube (gold top) for subsequent determinations. ??Contact the Clinical Chemistry Laboratory if there are any questions. Chloride 103 98 - 107 mmol/L CERNER MILLENNIUM CO2 23 22 - 31 mmol/L CERNER MILLENNIUM Anion Gap 12 5 - 15 mmol/L CERNER MILLENNIUM Calcium 9.4 8.5 - 10.5 mg/dL CERNER MILLENNIUM Estimated GFR >60 >=60 CERNER MILLENNIUM Comment: This estimated GFR (eGFR) value was [...] the following links into your internet browser. http://www.nkdep.nih.gov/lab-evaluation.shtml http://www.kidney.org/professionals/ Blood specimen (specimen) 10/11/2013 5:19 AM EDT 10/11/2013 5:35 AM EDT Narrative Resulting Agency Comment Spec In Lab Mila Mccall MD CHEMISTRY ORDERABLES [facility] * (ABNORMAL) Lipid panel (fasting) (10/11/2013 5:19 AM EDT) Chol, Total 117 <=199 mg/dL CERNER MILLENNIUM Comment: Recommendations of the NCEP Adult Treatment Panel for the following risk cutoff thresholds for the [place] population: Desirable: <200 mg/dL Borderline High: 200-239 mg/dL High: > or = 240 mg/dL Triglycerides 92 <=149 mg/dL CERNER MILLENNIUM Comment: Reference Range: Normal triglycerides: ??<150 mg/dL Borderline high: ??150-199 mg/dL High: ??200-499 mg/dL Very high: ??>wk=091 mg/dL DAO 2001; [phone](19):[phone] HDL 32(L) >=40 mg/dL CERNER MILLENNIUM Comment: Reference range: ??Low HDL: ?? < 40 mg/dL ??Normal: ?40-60 mg/dL ??Desirable: > 60 mg/dL DAO 2001; 285(19):7748-2993 LDL Cholesterol 67 <=99 mg/dL [facility] Comment: Reference range: ?? Optimal: ?<100 mg/dL ?? Near Optimal/Above Optimal: ?? 100-129 mg/dL ?? Borderline high: ?130-159 mg/dL ?? High: ? 160-189 mg/dL ?? Very high: ?>cs=533 mg/dL DAO 2001: 285(19):[phone] Chol/HDL Ratio 3.7 ratio KATHY Etienne [facility] Comment: A Cholesterol to HDL ratio below 4:1 is desirable. ??Studies suggest that increased CAD risk occurs at ratios above 5 for females and above 6 for men. ? [place] Heart Association ??(http://www.americanheart.org) ? Jeri Int Med, 1994; 121:641 ? AM J Med, 1998; 105(1A):48S Blood specimen (specimen) 10/11/2013 5:19 AM EDT 10/11/2013 5:35 AM EDT Narrative Resulting Agency Comment Spec In Lab Mila Mccall MD CHEMISTRY ORDERABLES [facility] * Cardiac Enzymes (10/11/2013 5:19 AM EDT) Troponin-T <0.03 <=0.03 ng/mL [facility] Comment: 0.03 ng/mL: Represents the 99th percentile upper reference limit for normals. >0.03 ng/mL: Elevated cardiac troponin T level indicative of myocardial damage. Diagnosis of acute, evolving or recent VA requires a typical rise and gradual fall of cTnT with at least ONE of the following: a) Ischemic symptoms b) Development of pathologic Q waves on the ECG c) ECG changes indicative of eschemia (S-T segment elevation/depression) d) Coronary artery intervention Serial bloods should be obtained for testing on admission, at 6 to 9 hrs and again at 12 to 24 hrs if earlier samples are negative and the clinical index of suspicion is high. Reference: [Myocardial infarction redefined? a consensus document of the Joint Society of Cardiology/[place] College of Cardiology Committee for the redefinition of myocardial infarction. ??Journal of the [place] College of Cardiology 2000; 36: 959-969] CK, Total 53 0 - 200 unit/L [facility] Blood specimen (specimen) 10/11/2013 5:19 AM EDT 10/11/2013 5:35 AM EDT Narrative Resulting Agency Comment Spec In Lab Mila Mccall MD CHEMISTRY ORDERABLES Performing Organization Address [facility] de Phone Number BRYN DOYLEIUM * EKG 12 Lead (10/10/2013 4:00 PM EDT) Ventricular rate 78 BPM MUSE SYSTEM Atrial Rate 78 BPM MUSE SYSTEM P-R Interval 154 ms MUSE SYSTEM QRS Duration 80 ms MUSE SYSTEM Q-T Interval 402 ms MUSE SYSTEM QTC Calculated (Bezet) 458 ms MUSE SYSTEM Calculated P [place] 76 degrees MUSE SYSTEM Calculated R [place] 60 degrees MUSE SYSTEM Calculated T [place] 79 degrees MUSE SYSTEM INTERPRETATION Normal sinus rhythm Normal ECG When compared with ECG of 10-OCT-2013 11:12, Non-specific change in ST segment in Lateral leads Nonspecific T wave abnormality no longer evident in Lateral leads Confirmed by Trevin Cook MD ([id number]) on 10/10/2013 4:50:45 PM MUSE SYSTEM 10/10/2013 4:00 PM EDT 10/10/2013 4:50 PM EDT Mila Mccall MD ECG ORDERABLES Performing Organization Address [facility] Co de Phone Number MUSE SYSTEM * Cardiac Enzymes (10/10/2013 4:00 PM EDT) Troponin-T <0.03 <=0.03 ng/mL BRYN SANCHEZ Comment: 0.03 ng/mL: Represents the 99th percentile upper reference limit for normals. >0.03 ng/mL: Elevated cardiac troponin T level indicative of myocardial damage. Diagnosis of acute, evolving or recent VA requires a typical rise and gradual fall of cTnT with at least ONE of the following: a) Ischemic symptoms b) Development of pathologic Q waves on the ECG c) ECG changes indicative of eschemia (S-T segment elevation/depression) d) Coronary artery intervention Serial bloods should be obtained for testing on admission, at 6 to 9 hrs and again at 12 to 24 hrs if earlier samples are negative and the clinical index of suspicion is high. Reference: [Myocardial infarction redefined? a consensus document of the Joint Society of Cardiology/[place] [employer] Committee for the redefinition of myocardial infarction. ??Journal of the [place] [employer] 2000; 36: 959-969] CK, Total 59 0 - 200 unit/L BRYN SANCHEZ Blood specimen (specimen) 10/10/2013 4:00 PM EDT 10/10/2013 4:15 PM EDT Narrative Resulting Agency Comment Spec In Lab Mila Mccall MD CHEMISTRY ORDERABLES BRYN SANCHEZ * EKG 12 Lead (10/10/2013 11:12 AM EDT) Ventricular rate 82 BPM MUSE SYSTEM Atrial Rate 82 BPM MUSE SYSTEM P-R Interval 154 ms MUSE SYSTEM QRS Duration 82 ms MUSE SYSTEM Q-T Interval 372 ms MUSE SYSTEM QTC Calculated (Bezet) 434 ms MUSE SYSTEM Calculated P [place] 74 degrees MUSE SYSTEM Calculated R [place] 57 degrees MUSE SYSTEM Calculated T [place] 92 degrees MUSE SYSTEM INTERPRETATION Normal sinus rhythm Nonspecific ST and T wave abnormality Abnormal ECG When compared with ECG of 10-OCT-2013 07:22, Non-specific change in ST segment in Lateral leads Nonspecific T wave abnormality now evident in Lateral leads Confirmed by Trevin Cook MD ([id number]) on 10/10/2013 3:22:44 PM MUSE SYSTEM 10/10/2013 11:1 2 AM EDT 10/10/2013 3:22 PM EDT Mila Mccall MD ECG ORDERABLES MUSE SYSTEM * NM myocardial perfusion - stress & rest (10/10/2013 9:40 AM EDT) Anatomical Region Laterality Modality Other 10/10/2013 9:40 AM EDT Narrative 10/10/2013 10:58 AM EDT Examination STRESS/REST MYOCARDIAL PERFUSION SCAN Clinical History angina, ? ischemia in a large OM1 territory Comparison Chest radiographs October 09, 2013 ?? Technique During rest, 10 mCi of technetium-99m sestamibi were administered intravenously. Approximately 15 minutes later, SPECT images of the heart were obtained with reconstruction in the short, vertical long and horizontal long axes. The patient had chest pain and ST depressions in lead II, III and AVF therefore Regadenoson was not administered. 30.5 mCi of technetium-99m sestamibi were then administer intravenously and the patient was exercised for one and one half addition minutes. Images of the heart were then again obtained with SPECT reconstruction. A low dose CT scan was acquired for the purpose of attenuation correction. Findings No fixed or reversible perfusion defects are present. Functional Analysis Myocardial function: There is normal wall motion and wall thickening. ?? Left ventricular ejection fraction: 68% (normal >50%) Impression No ischemia or scar. Left ventricular function is normal. Film and interpretation reviewed by the attending Procedure Note Vamsi Perez MD - 10/10/2013 Examination STRESS/REST MYOCARDIAL PERFUSION SCAN Clinical History angina, ? ischemia in a large OM1 territory Comparison Chest radiographs October 09, 2013 Technique During rest, 10 mCi of technetium-99m sestamibi were administered intravenously. Approximately 15 minutes later, SPECT images of the heartwere obtained with reconstruction in the short, vertical long and horizontallong axes. The patient had chest pain and ST depressions in lead II, III and AVFtherefore Regadenoson was not administered. 30.5 mCi of technetium-99m sestamibiwere then administer intravenously and the patient was exercised for one andone half addition minutes. Images of the heart were then again obtained withSPECT reconstruction. A low dose CT scan was acquired for the purpose of attenuation correction. Findings No fixed or reversible perfusion defects are present. Functional Analysis Myocardial function: There is normal wall motion and wall thickening. Left ventricular ejection fraction: 68% (normal >50%) Impression No ischemia or scar. Left ventricular function is normal. Film and interpretation reviewed by the attending Mila Mccall MD IMG NM ORDERABLES * EKG 12 Lead (10/10/2013 7:22 AM EDT) Ventricular rate 67 BPM MUSE SYSTEM Atrial Rate 67 BPM MUSE SYSTEM P-R Interval 150 ms MUSE SYSTEM QRS Duration 86 ms MUSE SYSTEM Q-T Interval 400 ms MUSE SYSTEM QTC Calculated (Bezet) 422 ms MUSE SYSTEM Calculated P [place] 74 degrees MUSE SYSTEM Calculated R [place] 66 degrees MUSE SYSTEM Calculated T [place] 81 degrees MUSE SYSTEM INTERPRETATION Normal sinus rhythm Normal ECG When compared with ECG of 09-OCT-2013 15:22, No significant change was found Confirmed by Trevin Cook MD ([id number]) on 10/10/2013 1:41:41 PM MUSE SYSTEM 10/10/2013 7:22 AM EDT 10/10/2013 1:41 PM EDT Mila Mccall MD ECG ORDERABLES MUSE SYSTEM * (ABNORMAL) Differential, Automated (10/10/2013 4:06 AM EDT) Neutrophils % 90.6(H) 34.0 - 71.0 % CERNER MILLENNIUM Neutr Abs (ANC) 12.53(H) 1.50 - 6.30 x10(3)/mc L CERNER MILLENNIUM Lymphocytes % 6.6(L) 19.0 - 53.0 % CERNER MILLENNIUM Lymphocytes Abs 0.9(L) 1.0 - 3.6 x10(3)/mc L CERNER MILLENNIUM Monocytes % 2.2(L) 4.0 - 13.0 % CERNER MILLENNIUM Monocyte Abs 0.3 0.2 - 1.0 x10(3)/mc L CERNER MILLENNIUM Eosinophils % 0.1 0.0 - 7.0 % CERNER MILLENNIUM Eosinophils Abs 0.0 0.0 - 0.5 x10(3)/mc L CERNER MILLENNIUM Basophils % 0.1 0.0 - 2.0 % CERNER MILLENNIUM Basophils Abs 0.0 0.0 - 0.2 x10(3)/mc L CERNER MILLENNIUM Immature Gran % 0.40 0.00 - 0.66 % CERNER MILLENNIUM Comment: Immature granulocytes(IG's)percentage and absolute count will include metamyelocytes, myelocytes, and promyelocytes. Blood smears from CBCs yielding IG's will be scanned manually for concordance. If this scan disagrees with the automated IG or if promyelocytes are noted, a manual differential will be performed. Suri Gran Abs 0.06(H) 0.00 - 0.05 x10(3)/mc L CERNER MILLENNIUM Blood specimen (specimen) 10/10/2013 4:06 AM EDT 10/10/2013 4:33 AM EDT Mila Mccall MD HEMATOLOGY ORDERABLE S CERNER MILLENNIUM * (ABNORMAL) CBC (with Diff) (10/10/2013 4:06 AM EDT) WBC 13.8(H) 4.0 - 10.0 x10(3)/mcL CERNER MILLENNIUM RBC 4.60(L) 4.63 - 6.08 x10(6)/mcL CERNER MILLENNIUM Hemoglobin 13.8 13.7 - 17.5 gm/dL CERNER MILLENNIUM Hematocrit 40.5 40.0 - 51.0 % CERNER MILLENNIUM MCV 88.0 79.0 - 92.0 fL CERNER MILLENNIUM MCH 30.0 25.6 - 32.2 pg CERNER MILLENNIUM MCHC 34.1 32.0 - 36.5 gm/dL CERNER MILLENNIUM Platelets 398(H) 145 - 370 x10(3)/mcL CERNER MILLENNIUM RDWSD 43.7 35.0 - 46.0 fL CERNER MILLENNIUM RDWCV 13.6 10.9 - 14.4 % CERNER MILLENNIUM MPV 9.4 9.0 - 12.0 fL CERNER MILLENNIUM Blood specimen (specimen) 10/10/2013 4:06 AM EDT 10/10/2013 4:33 AM EDT Narrative Resulting Agency Comment Spec In Lab Mila Mccall MD HEMATOLOGY ORDERABLE S BRYN DOYLEIUM * (ABNORMAL) BMP w/fasting Glucose (10/10/2013 4:06 AM EDT) Pathologist [facility] Glucose Fasting 187(H) 65 - 99 mg/dL CERNER MILLENNIUM Comment: ?Fasting* Glucose Interpretive Criteria Normal ?65-99 mg/dL Impaired Fasting glucose ?100-125 mg/dL Consistent with Diabetes Mellitus ? >or= 126 mg/dL *Fasting is defined as no caloric intake for at least 8 hours In the absence of unequivocal hyperglycemia a plasma glucose value of >or= 126 mg/dL should be repeated on a subsequent day. Diagnosis and Classification of Diabetes Mellitus, Position Statement from the [place] [employer] Association. ??Diabetes Care, Volume 33, Supplement 1, Jun 2009 BUN 29(H) 10 - 20 mg/dL CERNER MILLENNIUM Creatinine 1.09 0.80 - 1.50 mg/dL CERNER MILLENNIUM Comment: Please note that the pediatric reference intervals supplied above were not validated at [facility] Results from pediatric patients should be interpreted in conjunction to the patient's age, height and muscle mass. Sodium 134(L) 135 - 145 mmol/L CERNER MILLENNIUM Potassium 4.3 3.5 - 5.0 mmol/L CERNER MILLENNIUM Comment: Please note: ??Patients with WBC >100,000 may have falsely elevated Potassium levels. ??For accurate Potassium quantification in these patients send serum separator tube (gold top) for subsequent determinations. ??Contact the Clinical Chemistry Laboratory if there are any questions. Chloride 99 98 - 107 mmol/L CERNER MILLENNIUM CO2 23 22 - 31 mmol/L CERNER MILLENNIUM Anion Gap 12 5 - 15 mmol/L CERNER MILLENNIUM Calcium 9.6 8.5 - 10.5 mg/dL CERNER MILLENNIUM Estimated GFR >60 >=60 [facility] Comment: This estimated GFR (eGFR) value was [...] the following links into your internet browser. http://www.nkdep.nih.gov/lab-evaluation.shtml http://www.kidney.org/professionals/ Blood specimen (specimen) 10/10/2013 4:06 AM EDT 10/10/2013 4:33 AM EDT Narrative Resulting Agency Comment Spec In Lab Mila Mccall MD CHEMISTRY ORDERABLES [facility] * NUCLEAR STRESS, CARDIOLOGY RESULTS (10/10/2013) Anatomical Region Laterality Modality Other Mila Mccall MD CARD TESTS W/SCANNED RESULTS * Cardiac Enzymes (10/09/2013 9:41 PM EDT) Troponin-T <0.03 <=0.03 ng/mL [facility] Comment: 0.03 ng/mL: Represents the 99th percentile upper reference limit for normals. >0.03 ng/mL: Elevated cardiac troponin T level indicative of myocardial damage. Diagnosis of acute, evolving or recent VA requires a typical rise and gradual fall of cTnT with at least ONE of the following: a) Ischemic symptoms b) Development of pathologic Q waves on the ECG c) ECG changes indicative of eschemia (S-T segment elevation/depression) d) Coronary artery intervention Serial bloods should be obtained for testing on admission, at 6 to 9 hrs and again at 12 to 24 hrs if earlier samples are negative and the clinical index of suspicion is high. Reference: [Myocardial infarction redefined? a consensus document of the Joint Society of Cardiology/[place] [employer]iology Committee for the redefinition of myocardial infarction. ??Journal of the [place] College [employer]iology 2000; 36: 959-969] CK, Total 78 0 - 200 unit/L BRYN DOYLEIUM Blood specimen (specimen) 10/09/2013 9:41 PM EDT 10/09/2013 9:45 PM EDT Narrative Resulting Agency Comment Spec In Lab Mila Mccall MD CHEMISTRY ORDERABLES Performing Organization Address [facility] Co de Phone Number BRYN SANCHEZ * Cardiac Enzymes (10/09/2013 3:55 PM EDT) [facility] Troponin-T <0.03 <=0.03 ng/mL BRYN SANCHEZ Comment: 0.03 ng/mL: Represents the 99th percentile upper reference limit for normals. >0.03 ng/mL: Elevated cardiac troponin T level indicative of myocardial damage. Diagnosis of acute, evolving or recent VA requires a typical rise and gradual fall of cTnT with at least ONE of the following: a) Ischemic symptoms b) Development of pathologic Q waves on the ECG c) ECG changes indicative of eschemia (S-T segment elevation/depression) d) Coronary artery intervention Serial bloods should be obtained for testing on admission, at 6 to 9 hrs and again at 12 to 24 hrs if earlier samples are negative and the clinical index of suspicion is high. Reference: [Myocardial infarction redefined? a consensus document of the Joint Society of Cardiology/[place] [employer]iology Committee for the redefinition of myocardial infarction. ??Journal of the [place] College [employer]iology 2000; 36: 959-969] CK, Total 89 0 - 200 unit/L BRYN SANCHEZ Blood specimen (specimen) 10/09/2013 3:55 PM EDT 10/09/2013 4:25 PM EDT Narrative Resulting Agency Comment Spec In Lab Mila Mccall MD CHEMISTRY ORDERABLES Performing Organization Address [facility] Co de Phone Number BRYN SANCHEZ * Miscellaneous Lab request (10/09/2013 3:55 PM EDT) [facility] Misc Lab Result Request received in lab. BRYN DOYLEIUM Blood specimen (specimen) 10/09/2013 3:55 PM EDT 10/09/2013 4:25 PM EDT Mila Mccall MD HEMATOLOGY ORDERABLE S Performing Organization Address City/State/[facility] Co de Phone Number BRYN SANCHEZ * EKG 12 Lead (10/09/2013 3:22 PM EDT) Ventricular rate 61 BPM MUSE SYSTEM Atrial Rate 61 BPM MUSE SYSTEM P-R Interval 150 ms MUSE SYSTEM QRS Duration 82 ms MUSE SYSTEM Q-T Interval 410 ms MUSE SYSTEM QTC Calculated (Bezet) 412 ms MUSE SYSTEM Calculated P [place] 74 degrees MUSE SYSTEM Calculated R [place] 60 degrees MUSE SYSTEM Calculated T [place] 70 degrees MUSE SYSTEM INTERPRETATION Normal sinus rhythm with sinus arrhythmia Normal ECG When compared with ECG of 13-SEP-2013 07:14, Nonspecific T wave abnormality no longer evident in Lateral leads Confirmed by Trevin Cook MD ([id number]) on 10/10/2013 1:01:37 PM MUSE SYSTEM 10/09/2013 3:22 PM EDT 10/10/2013 1:01 PM EDT Mila Mccall MD ECG ORDERABLES Performing Organization Address City/[facility] Co de Phone Number MUSE SYSTEM documented in this encounter Visit Diagnoses Diagnosis Chest pain- Primary Chest pain, unspecified Chest pain Chest pain, unspecified Angina at rest Other and unspecified angina pectoris CAD (coronary artery disease) Coronary atherosclerosis of unspecified type of vessel, [place] or graft S/P coronary artery stent placement Postsurgical percutaneous transluminal coronary angioplasty status CAD (coronary artery disease) Coronary atherosclerosis of unspecified type of vessel, [place] or graft Emphysema/COPD Other emphysema Hyperlipidemia Other and unspecified hyperlipidemia Hypertension Unspecified essential hypertension Tobacco abuse Tobacco use disorder documented in this encounter Administered Medications Inactive Administered Medications - up to 3 most recent administrations Medication Order MAR Action Action Date Dose Rate Site acetaminophen (TYLENOL) tablet 650 mg 650 mg, Oral, EVERY 4 HOURS PRN, Starting on 10/09/13 at 1625, Until Wed10/11/13 at 1433, Pain, Headaches, Maximum dose of acetaminophen is 4000 mg from all sources in 24 hours., Routine Given 10/10/2013 5:53 PM EDT 650 mg albuterol-ipratropium (COMBIVENT RESPIMAT) inhaler 1 puff 1 puff, Inhalation, 4 TIMES DAILY, First dose on Wed10/09/13 at 1700, Until Discontinued, Not to exceed 6 inhalations in 24 hours., Routine Given 10/11/2013 9:48 AM EDT 1 puff Given 10/10/2013 6:50 PM EDT 1 puff Given 10/10/2013 9:00 AM EDT 1 puff aspirin EC tablet 81 mg 81 mg, Oral, DAILY, First dose on Wed10/10/13 at 0900, Until Discontinued, Routine Given 10/11/2013 9:45 AM EDT 81 mg Given 10/10/2013 9:00 AM EDT 81 mg atorvastatin (LIPITOR) tablet 80 mg 80 mg, Oral, EVERY EVENING, First dose on Wed10/09/13 at 1700, Until Discontinued, Routine Given 10/10/2013 7:00 PM EDT 80 mg Given 10/09/2013 5:00 PM EDT 80 mg clopidogrel (PLAVIX) tablet 75 mg 75 mg, Oral, DAILY, First dose on Wed10/10/13 at 0900, Until Discontinued, Routine Given 10/11/2013 9:45 AM EDT 75 mg Given 10/10/2013 9:00 AM EDT 75 mg diaZEPam (VALIUM) tablet 5 mg 5 mg, Oral, ONCE, 1 dose, On Wed10/10/13 at 1400, Cath (Day of Procedure), Routine Given 10/10/2013 2:00 PM EDT 5 mg diphenhydrAMINE (BENADRYL) capsule 25 mg 25 mg, Oral, ONCE, 1 dose, On Wed10/10/13 at 1400, Cath (Day of Procedure), Routine Given 10/10/2013 2:00 PM EDT 25 mg fentaNYL 50mcg/mL injection 25 mcg, Intravenous, Administer over 4 Hours, EVERY 15 MIN PRN, Starting on Wed10/10/13 at 1551, Until Wed10/10/13 at 1831, Pain, For sheath removal, May repeat once, while in Cath Recovery Unit, Cath (Recovery-Hospital Unit), Routine Given 10/10/2013 5:10 PM EDT 25 mcg formoterol (FORADIL AEROLIZER) inhalation device 1 each 1 each, Inhalation, ONCE, 1 dose, On Wed10/09/13 at 1700, Therapeutic interchange approved by Pharmacy and Therapeutics committee for: salmeterol, Routine Given 10/09/2013 5:00 PM EDT 1 each formoterol (FORADIL) capsule for inhaler 12 mcg 12 mcg, Inhalation, EVERY 12 HOURS, First dose on Wed10/09/13 at 2100, Until Discontinued, Therapeutic interchange approved by Pharmacy and Therapeutics committee for: salmeterol Given 10/11/2013 9:49 AM EDT 12 mcg Given 10/10/2013 9:30 PM EDT 12 mcg Given 10/10/2013 9:00 AM EDT 12 mcg hydrochlorothiazide (HYDRODIURIL) tablet 25 mg 25 mg, Oral, DAILY, First dose on Wed10/10/13 at 0900, Until Discontinued, Routine Given 10/11/2013 9:45 AM EDT 25 mg Given 10/10/2013 9:00 AM EDT 25 mg lisinopril (PRINIVIL;ZESTRIL) tablet 10 mg 10 mg, Oral, DAILY, First dose on Wed10/10/13 at 0900, Until Discontinued, Routine Given 10/11/2013 9:46 AM EDT 10 mg Given 10/10/2013 9:00 AM EDT 10 mg metoprolol succinate (TOPROL-XL) XL tablet 50 mg 50 mg, Oral, DAILY, First dose (after last modification) on Wed10/10/13 at 0900, Until Discontinued, Routine Given 10/11/2013 9:46 AM EDT 50 mg Given 10/10/2013 9:00 AM EDT 50 mg mometasone (ASMANEX) aerosol 1 puff 1 puff (220 mcg), Inhalation, 2 TIMES DAILY, First dose on Wed10/09/13 at 2100, Until Discontinued, Therapeutic interchange approved by Pharmacy and Therapeutics committee for: fluticasone, Routine Given 10/11/2013 9:48 AM EDT 1 puff Given 10/10/2013 9:30 PM EDT 1 puff Given 10/10/2013 9:00 AM EDT 1 puff nicotine (NICODERM CQ) 7 mg/24 hr patch 7 mg 7 mg, Transdermal, DAILY, First dose on Wed10/09/13 at 1645, Until Discontinued, Routine Given 10/11/2013 9:56 AM EDT 7 mg Given 10/10/2013 9:00 AM EDT 7 mg Given 10/09/2013 4:45 PM EDT 7 mg nicotine (NICODERM CQ) patch REMOVAL Transdermal, DAILY, First dose on Wed10/10/13 at 0900, Until Discontinued, Remove Nicotine Patch Given 10/11/2013 9:00 AM EDT 1 patch Given 10/10/2013 9:00 AM EDT 1 patch pantoprazole (PROTONIX) tablet 40 mg 40 mg, Oral, DAILY, First dose on Wed10/10/13 at 0900, Until Discontinued, Restricted to patients on clopidogrel (PLAVIX) who require a proton pump inhibitor, Routine Given 10/11/2013 9:47 AM EDT 40 mg Given 10/10/2013 9:00 AM EDT 40 mg predniSONE (DELTASONE) tablet 60 mg 60 mg, Oral, 2 TIMES DAILY, 3 doses, First dose on Wed10/09/13 at 1800, Last dose on Wed10/10/13 at 1800, Routine Given 10/10/2013 7:00 PM EDT 60 mg Given 10/10/2013 6:00 AM EDT 60 mg Given 10/09/2013 6:00 PM EDT 60 mg sodium chloride 0.9% infusion 125 mL/hr, Intravenous, CONTINUOUS, Starting on Wed10/10/13 at 1145, Until Wed10/11/13 at 1433 New Bag 10/10/2013 11:45 AM EDT 125 mL/hr 125 mL/hr sodium chloride 0.9% infusion 100 mL/hr, Intravenous, CONTINUOUS, Starting on Wed10/10/13 at 1615, Until Wed10/11/13 at 0214 New Bag 10/10/2013 3:55 PM EDT 100 mL/hr 100 mL/hr documented in this encounter Active and Recently Administered Medications Times are shown in EDT. Scheduled Medication Order 10/09/2013 10/10/2013 10/11/2013 albuterol-ipratropium (COMBIVENT RESPIMAT) inhaler 1 puff (CANCELED) 1 puff, Inhalation, 4 TIMES DAILY, First dose on Wed10/09/13 at 1700, Until Discontinued, Not to exceed 6 inhalations in 24 hours., Routine 1700 (Given - Provider: Cee Ernst RN)2100 (Given - Provider: Deisi Mathew RN) 0900 (Given - Provider: Cee Ernst RN)1300 (Not Given - Provider: Cee Ernst RN - Reason: Transfer to a Procedural area)1850 (Given - Provider: Cee Ernst RN)2130 (Not Given - Provider: Nancie Albert RN - Reason: Patient/family refused) 0948 (Given - Provider: Lisa Perez RN) aspirin EC tablet 81 mg (CANCELED) 81 mg, Oral, DAILY, First dose on Wed10/10/13 at 0900, Until Discontinued, Routine 0900 (Given - Provider: Cee Ernst RN) 0945 (Given - Provider: Lisa Perez RN) atorvastatin (LIPITOR) tablet 80 mg (CANCELED) 80 mg, Oral, EVERY EVENING, First dose on Wed10/09/13 at 1700, Until Discontinued, Routine 1700 (Given - Provider: Cee Ernst RN) 1900 (Given - Provider: Cee Ernst RN) clopidogrel (PLAVIX) tablet 75 mg (CANCELED) 75 mg, Oral, DAILY, First dose on Wed10/10/13 at 0900, Until Discontinued, Routine 0900 (Given - Provider: Cee Ernst RN) 0945 (Given - Provider: Lisa Perez RN) diaZEPam (VALIUM) tablet 5 mg (CANCELED) 5 mg, Oral, ONCE, 1 dose, On Wed10/10/13 at 1400, Cath (Day of Procedure), Routine 1400 (Given - Provider: Cee Ernst RN) diphenhydrAMINE (BENADRYL) capsule 25 mg (CANCELED) 25 mg, Oral, ONCE, 1 dose, On Wed10/10/13 at 1400, Cath (Day of Procedure), Routine 1400 (Given - Provider: Cee Ernst RN) formoterol (FORADIL AEROLIZER) inhalation device 1 each (COMPLETED)(Linked Group 1) 1 each, Inhalation, ONCE, 1 dose, On Wed10/09/13 at 1700, Therapeutic interchange approved by Pharmacy and Therapeutics committee for: salmeterol, Routine 1700 (Given - Provider: Cee Ernst RN) formoterol (FORADIL) capsule for inhaler 12 mcg (CANCELED)(Linked Group 1) 12 mcg, Inhalation, EVERY 12 HOURS, First dose on Wed10/09/13 at 2100, Until Discontinued, Therapeutic interchange approved by Pharmacy and Therapeutics committee for: salmeterol 2100 (Not Given - Provider: Deisi Mathew RN - Reason: Patient/family refused) 0900 (Given - Provider: Cee Ernst RN)2129 (Given - Provider: Nancie Albert RN) 0949 (Given - Provider: Lisa Perez RN) hydrochlorothiazide (HYDRODIURIL) tablet 25 mg (CANCELED) 25 mg, Oral, DAILY, First dose on Wed10/10/13 at 0900, Until Discontinued, Routine 09 (Given - Provider: Cee Ernst RN) 0945 (Given - Provider: Lisa Perez RN) lisinopril (PRINIVIL;ZESTRIL) tablet 10 mg (CANCELED) 10 mg, Oral, DAILY, First dose on Wed10/10/13 at 0900, Until Discontinued, Routine 899 (Given - Provider: Cee Ernst RN) 0946 (Given - Provider: Lisa Perez RN) metoprolol succinate (TOPROL-XL) XL tablet 50 mg 50 mg, Oral, DAILY, First dose (after last modification) on Wed10/10/13 at 0900, Until Discontinued, Routine 09 (Given - Provider: Cee Ernst RN) 0946 (Given - Provider: Lisa Perez RN) mometasone (ASMANEX) aerosol 1 puff (CANCELED) 1 puff (220 mcg), Inhalation, 2 TIMES DAILY, First dose on Wed10/09/13 at 2100, Until Discontinued, Therapeutic interchange approved by Pharmacy and Therapeutics committee for: fluticasone, Routine 2100 (Not Given - Provider: Deisi Mathew RN - Reason: Patient/family refused) 09 (Given - Provider: Cee Ernst RN)2129 (Given - Provider: Nancie Albert RN) 0948 (Given - Provider: Lisa Perez RN) nicotine (NICODERM CQ) 7 mg/24 hr patch 7 mg (CANCELED)(Linked Group 2) 7 mg, Transdermal, DAILY, First dose on Wed10/09/13 at 1645, Until Discontinued, Routine 1645 (Given - Provider: Cee Ernst RN) 0900 (Given - Provider: Cee Ernst RN) 0956 (Given - Provider: Lisa Perez RN) nicotine (NICODERM CQ) patch REMOVAL (CANCELED)(Linked Group 2) Transdermal, DAILY, First dose on Wed10/10/13 at 0900, Until Discontinued, Remove Nicotine Patch 0900 (Given - Provider: Cee Ernst RN) 0900 (Given - Provider: Lisa Perez RN) pantoprazole (PROTONIX) tablet 40 mg (CANCELED) 40 mg, Oral, DAILY, First dose on Wed10/10/13 at 0900, Until Discontinued, Restricted to patients on clopidogrel (PLAVIX) who require a proton pump inhibitor, Routine 0900 (Given - Provider: Cee Ernst RN) 0947 (Given - Provider: Lisa Perez RN) predniSONE (DELTASONE) tablet 60 mg (COMPLETED) 60 mg, Oral, 2 TIMES DAILY, 3 doses, First dose on Wed10/09/13 at 1800, Last dose on Wed10/10/13 at 1800, Routine 1800 (Given - Provider: Cee Ernst RN) 0600 (Given - Provider: Deisi Mathew RN)1900 (Given - Provider: Cee Ernst RN) Continuous Medication Order 10/09/2013 10/10/2013 10/11/2013 sodium chloride 0.9% infusion (CANCELED) 125 mL/hr, Intravenous, CONTINUOUS, Starting on Wed10/10/13 at 1145, Until Wed10/11/13 at 1433 1145 (New Bag - Provider: Cee Ernst RN) sodium chloride 0.9% infusion () 100 mL/hr, Intravenous, CONTINUOUS, Starting on Wed10/10/13 at 1615, Until Wed10/11/13 at 0214 1555 (New Bag - Provider: Kanika Dillon RN) 0145 (Stopped - Provider: Nancie Albert RN) PRN Medication Order 10/09/2013 10/10/2013 10/11/2013 acetaminophen (TYLENOL) tablet 650 mg (CANCELED) 650 mg, Oral, EVERY 4 HOURS PRN, Starting on Wed10/09/13 at 1625, Until Wed10/11/13 at 1433, Pain, Headaches, Maximum dose of acetaminophen is 4000 mg from all sources in 24 hours., Routine 1753 (Given - Provider: Kanika Dillon RN) adenosine 90 mg in sodium chloride 0.9% 90 mL infusion (SCREENER OPERATOR) (CANCELED) CONTINUOUS PRN, Starting on Wed10/10/13 at 1446, Until Wed10/10/13 at 1551, Cath (Intra-Procedure), Routine 1446 (New Bag - Provider: Aristides Paulino RN)1449 (Stopped - Provider: Irving Riley RN) bivalirudin (ANGIOMAX) 250 mg in sodium chloride 0.9% 50 mL infusion (SCREENER OPERATOR) (CANCELED) CONTINUOUS PRN, Starting on Wed10/10/13 at 1435, Until Wed10/10/13 at 1551, Cath (Intra-Procedure), Routine 1400 (Stopped - Provider: Irving Riley RN)1435 (New Bag - Provider: Aristides Paulino RN) bivalirudin (ANGIOMAX) injection (CANCELED) ONCE PRN, Starting on Wed10/10/13 at 1438, Until Wed10/10/13 at 1551, Intra-Operative (Intra-Procedure), Routine 1433 (Given - Provider: Aristides Paulino RN) fentaNYL 50mcg/mL injection (CANCELED) ONCE PRN, Starting on Wed10/10/13 at 1417, Until Wed10/10/13 at 1551, Pain, Intra-Operative (Intra-Procedure), Routine 1417 (Given - Provider: Aristides Paulino RN)1458 (Given - Provider: Aristides Paulino RN) fentaNYL 50mcg/mL injection (CANCELED) 25 mcg, Intravenous, Administer over 4 Hours, EVERY 15 MIN PRN, Starting on Wed10/10/13 at 1551, Until Wed10/10/13 at 1831, Pain, For sheath removal, May repeat once, while in Cath Recovery Unit, Cath (Recovery-Hospital Unit), Routine 1710 (Given - Provider: Kanika Dillon RN) lidocaine (XYLOCAINE) 10 mg/mL (1 %) injection (CANCELED) ONCE PRN, Starting on Wed10/10/13 at 1422, Until Wed10/10/13 at 1551, Cath (Intra-Procedure), Routine 1422 (Given - Provider: Aristides Paulino RN) midazolam (PF) (VERSED) 1 mg/mL injection (CANCELED) ONCE PRN, Starting on Wed10/10/13 at 1417, Until Wed10/10/13 at 1551, Sleep, Cath (Intra-Procedure), Routine 1417 (Given - Provider: Aristides Paulino RN) nitroGLYCerin 100 mcg/mL intracoronary dilution (CANCELED) ONCE PRN, Starting on Wed10/10/13 at 1523, Until Wed10/10/13 at 1551, Cath (Intra-Procedure), Routine 1523 (Given - Provider: Leeroy Dalton MD) Linked Groups Order Group 1: formoterol (FORADIL AEROLIZER) inhalation device 1 each (COMPLETED)Jump to med 1 each, Inhalation, ONCE, 1 dose, On Wed10/09/13 at 1700, Therapeutic interchange approved by Pharmacy and Therapeutics committee for: salmeterol, Routine And formoterol (FORADIL) capsule for inhaler 12 mcg (CANCELED)Jump to med 12 mcg, Inhalation, EVERY 12 HOURS, First dose on Wed10/09/13 at 2100, Until Discontinued, Therapeutic interchange approved by Pharmacy and Therapeutics committee for: salmeterol Group 2: nicotine (NICODERM CQ) 7 mg/24 hr patch 7 mg (CANCELED)Jump to med 7 mg, Transdermal, DAILY, First dose on Wed10/09/13 at 1645, Until Discontinued, Routine And nicotine (NICODERM CQ) patch REMOVAL (CANCELED)Jump to med Transdermal, DAILY, First dose on Wed10/10/13 at 0900, Until Discontinued, Remove Nicotine Patch documented in this encounter Care Teams Angio Technologist Relationship Specialty Start Date End Date Edin Messina MD [address] [place] [address] [address] PCP - General 10/02/11 01/11/22 documented as of this encounter
--- OUTSIDE RECORDS SUMMARY | 2024-01-05 02:49 | XMS_ITS | Encounter Summary ---
Author Organization [facility] [place] [address] Care Team Providers Care Hat Sizer Name Role Phone Nataliya Messina MD Primary Care Provider [phone] Reason for Visit * Reason Comments Follow-up feeling good; occ sh isis chest pain; has taken Nitro; not sure how necessary it was; walking as much as possible Encounter Details Date Type Department Care Team (Late st Contact Info) Description 06/18/2014 9:00 AM EST Follow-Up Cardiology at [address] [phone] Lauri Winn Jr., MD [address] [place] [address] [phone] ASCVD (arteriosclerotic cardiovascular disease) Social History Tobacco [...] Sign Reading Time Taken Comments Blood Pressure 110/66 06/18/2014 8:59 AM EST Pulse 70 06/18/2014 8:59 AM EST regul ar Temperature - - Respiratory Rate - - Oxygen Saturation - - Inhaled Oxygen Concentration - - Weight 73.5 kg (162 lb) 06/18/2014 8:59 AM EST Height - - Body Mass Index 26.15 02/20/2014 2:11 PM EDT documented in this encounter Progress Notes * Lauri Winn Jr., MD - 06/18/2014 9:12 AM EST Subjective: Patient ID: Hieu Tillman is a 58 y.o. male. Chief Complaint Patient presents with ??? Follow-up feeling good; occ sharp chest pain; has taken Nitro; not sure how necessary it was; walking as muchas possible HPI He gets occasional fleeting chest discomfort at rest. He occasionally takes a NTG for it-unclear if it helps or it goes away on its own. He has had no exertional chest pain. He is walking 2 milesa day and doing chores. Leg pain limits how fast he can walk but he is gradually doing more walking. Review of Systems denies other issues SH: still not smoking Allergies Allergen Reactions ??? Contrast [Iodine And [...] to right leg Objective: Physical Exam BP 110/66 Pulse 70 Wt 73.483 kg (162 lb) NAD No JVD/HJR Chest clear Cor RR, no murmur Abd benign Ext no edema Assessment and Plan: Well controlled angina-some atypical CP- reviewed that it is ok to use NTG if he is unsure what type of discomfort he is having Good BP Applauded re smoking cessation Lipids- no recent labs-continue high dose statin PVD slowly improving leg symptoms Follow up 6 months documented in this encounter Plan of Treatment Upcoming Encounters Date Type Department Care Team (Late st Contact Info) Description 01/10/2024 7:45 AM EDT Appointment Hematology [place] [address] 01/21/2024 10:[address] [place] [phone] Heber Phillips MD [facility] HEMATOLOGY/[place] [address] 03/28/2024 10:00 AM EDT Office Visit Hematology/Oncology at [address] [phone] Heber Phillips MD [facility] HEMATOLOGY/[place] [address] Isabella Baker APRN [facility] [place] [address] documented as of this encounter Visit Diagnoses Diagnosis ASCVD (arteriosclerotic cardiovascular disease) Unspecified cardiovascular disease documented in this encounter Care Teams Hat Sizer Relationship Specialty Start Date End Date Nataliya Messina MD [address] [place], [place] [address] PCP - General 10/02/11 01/11/22 documented as of this encounter
--- OUTSIDE RECORDS SUMMARY | 2024-01-05 02:49 | XMS_ITS | Encounter Summary ---
[place] [address] Care Team Providers Care Carriage Operator Name Role Phone Nataliya Messina MD Primary Care Provider [phone] Encounter Details Date Type Department Care Team (Late st Contact Info) Description 08/20/2014 10:30 AM EST Office Visit Cardiology at [address] [phone] Rafael Foote Exam for clinical research; CAD (coronary artery disease) Social History Tobacco [...] Sign Reading Time Taken Comments Blood Pressure 122/67 08/20/2014 10:23 AM EST Pulse 89 08/20/2014 10:23 AM EST Temperature - - Respiratory Rate - - Oxygen Saturation - - Inhaled Oxygen Concentration - - Weight 74.4 kg (164 lb) 08/20/2014 10:23 AM EST Height - - Body Mass Index 26.47 02/20/2014 2:11 PM EDT documented in this encounter Progress Notes * Rafael Foote - 08/20/2014 10:29 AM EST ABSORB III RANDOMIZED CONTROLLED TRIAL A Clinical Evaluation of Absorb??? BVS, the Everolimus Eluting Bioresorbable Vascular Scaffold in the Treatment of Subjects with de rupal [place] Coronary Artery Lesions One Year Clinical Follow-up PI: Rivas Montesinos MD Pager #:[phone] Research Coordinators: ANIYA Pickering, BA Pager #:[phone] Chacorta Sheikh RN Pager #: [phone] Purpose: The pivotal trial to support the [place] pre-market approval (PMA) of Absorb BVS. ABSORB III will evaluate the safety and effectiveness of the Absorb BVS System compared to the XIENCE in the treatment of subjects, including those with diabetes mellitus, with ischemic heart disease caused by up to two denovo venetie coronary artery lesions in separate epicardial vessels. Study Design: A prospective, randomized (2:1 ABSORB BVS to XIENCE), single-blind, multi-center trial registering ~2250 patients. Subject Study ID #: [id number], JMF The subject returns today approximately 1 year post PCI for protocol required follow-up. A physicalexam was completed by Dr. Dalton, please refer to the eD-H note for full visit interview and details. Subject was reconsented to updated Informed Consent, protocol version 11.0. Vital Signs: BP 122/67 Pulse 89 Wt 74.39 kg (164 lb) Current Medications: Scheduled Meds:Current outpatient prescriptions:metoprolol succinate (TOPROL-XL) 50 mg 24 hr tablet, Take 1 tablet by mouth daily., Disp: 30 tablet, Rfl: 1; atorvastatin (LIPITOR) 80 mg tablet, Take 1 tablet by mouth daily., Disp: 30 tablet, Rfl: 2; clopidogrel (PLAVIX) 75 mg tablet, Take 1 tablet by mouth daily., Disp: 90 tablet, Rfl: 3 nitroGLYcerin (NITROSTAT) 0.4 mg SL tablet, Place 1 tablet under the tongue every 5 minutes as needed., Disp: 25 tablet, Rfl: 12; pantoprazole (PROTONIX) 40 mg tablet, Take 1 tablet by mouth daily., Disp: 30 tablet, Rfl: 2; hydrochlorothiazide (HYDRODIURIL) 25 mg tablet, Take 25 mg by mouth daily.,Disp: , Rfl: ; lisinopril (PRINIVIL;ZESTRIL) 10 mg tablet, Take 10 mg by mouth daily., Disp: , Rfl: fluticasone (FLOVENT) 220 mcg/actuation inhaler, Inhale 1 puff into the lungs 2 times daily., Disp:, Rfl: ; FIBER CHOICE ORAL, Take 1 tablet by mouth daily., Disp: , Rfl: ; salmeterol (SEREVENT) 50 mcg/dose diskus inhaler, Inhale 1 puff into the lungs 2 times daily., Disp: , Rfl: ; aspirin 81 mg EC tablet, Take 81 mg by mouth daily., Disp: , Rfl: albuterol-ipratropium (COMBIVENT) 18-103 mcg/Actuation inhaler, 2 Puff(s), Inh, Twice daily, Disp: , Rfl: Continuous Infusions: PRN Meds:. Angina Status: Mr. Tillman reports no angina, but approx 1 month ago he had an episode of atypical chest pain. It lasted about 10-15 minutes and went away with rest and 1 nitro. He has not experienced any pain like he had prior to his stents being placed. Adverse/Serious Adverse Events: As above (If Yes) Event: Date of Occurrence: ____/ / Hospitalized?: Outcome at time of this contact: resolved Plan: 1. Subject was instructed to contact study staff for any AALIYAH's. 2. Patient will be contacted via telephone for remaining follow-up through 5 years post procedure documented in this encounter Plan of Treatment Upcoming Encounters Date Type Department Care Team (Late st Contact Info) Description 01/10/2024 7:45 AM EDT Appointment Hematology [place] [address] 01/21/2024 10:[address] [place] [address] Heber Phililps MD [facility] HEMATOLOGY/[place] [address] 03/28/2024 10:00 AM EDT Office Visit Hematology/Oncology at [address] [phone] Heber Phillips MD [facility] HEMATOLOGY/[place] [address] Isabella Baker APRN [facility] [place] [address] documented as of this encounter Procedures Procedure Name Priority Date/Time Associated Diagnosis Comments EKG 12-LEAD Routine 08/20/2014 10:22 AM EST CAD (coronary artery disease) documented in this encounter Results * EKG 12 Lead (08/20/2014 10:22 AM EST) Ventricular rate 93 BPM MUSE SYSTEM Atrial Rate 93 BPM MUSE SYSTEM P-R Interval 142 ms MUSE SYSTEM QRS Duration 80 ms MUSE SYSTEM Q-T Interval 354 ms MUSE SYSTEM QTC Calculated (Bezet) 440 ms MUSE SYSTEM Calculated P [place] 71 degrees MUSE SYSTEM Calculated R [place] 72 degrees MUSE SYSTEM Calculated T [place] 84 degrees MUSE SYSTEM INTERPRETATION Normal sinus rhythm Otherwise normal ECG When compared with ECG of 11-OCT-2013 08:27, No significant change was found I personally reviewed the tracing and edited the fellows interpretation Confirmed by fellow Nelly Antunez ([id number]) on 08/20/2014 12:25:28 PM Confirmed by MD CHRISTY, STEVO ([id number]) on 08/20/2014 2:32:29 PM MUSE SYSTEM 08/20/2014 10:2 2 AM EST 08/20/2014 2:32 PM EST Stevo Dalton MD ECG ORDERABLES MUSE SYSTEM documented in this encounter Visit Diagnoses Diagnosis Exam for clinical research Examination of participant in clinical trial CAD (coronary artery disease) Coronary atherosclerosis of unspecified type of vessel, venetie or graft documented in this encounter Care Teams Carriage Operator Relationship Specialty Start Date End Date Nataliya Messina MD [address] [place] [address] PCP - General 10/02/11 01/11/22 documented as of this encounter
--- OUTSIDE RECORDS SUMMARY | 2024-01-05 02:49 | XMS_ITS | Encounter Summary ---
[place] [address] Care Team Providers Care Help Desk Support Name Role Phone Nataliya Messina MD Primary Care Provider [phone] Encounter Details Date Type Department Care Team (Late st Contact Info) Description 10/09/2013 Orders Only Cardiology at [address] [phone] Stevo Mccall MD [facility] [place] [address] Social History Tobacco Use Types Packs/Day Years [...] AM EDT Appointment Hematology [place] [address] 01/21/2024 10:[address] [place] [place] [address] Heber Phillips MD [facility] DR HEMATOLOGY/ONCOLOGY [place], [place] [phone] 03/28/2024 10:00 AM EDT Office Visit Hematology/Oncology at [address] [phone] Heber Phillips MD [facility] DR HEMATOLOGY/[place] [address] Isabella Baker APRN [facility] [place] [address] documented as of this encounter Procedures Procedure Name Priority Date/Time Associated Diagnosis Comments FILM LIBRARY STORAGE ONLY DX CHEST Routine 10/09/2013 2:22 PM EDT documented in this encounter Results * Film Library- Storage only DX Chest (10/09/2013 2:22 PM EDT) Anatomical Region Laterality Modality Other 10/09/2013 2:22 PM EDT Narrative 10/09/2013 2:22 PM EDT This is a Non-reportable exam Procedure Note 10/09/2013 This is a Non-reportable exam Stevo Mccall MD IMG FILM LIBRARY ORD ERABLES documented in this encounter Visit Diagnoses Not on filedocumented in this encounter Care Teams Help Desk Support Relationship Specialty Start Date End Date Nataliya Messina MD [address] [place], [place] [address] PCP - General 10/02/11 01/11/22 documented as of this encounter
--- OUTSIDE RECORDS SUMMARY | 2024-01-05 02:49 | XMS_ITS | Encounter Summary ---
Author Organization [facility] Address [facility] [place] [address] Care Team Providers Care Office Services Coordinator Name Role Phone Edin Messina MD Primary Care Provider Encounter Details Date Type Department Care Team (Late st Contact Info) Description 08/20/2014 10:40 AM EST Follow-Up Cardiology at [address] [phone] Stevo Dalton MD [facility] [place] [address] CAD (coronary artery disease) Discharge Disposition: Home Social History Tobacco [...] as of this encounter Progress Notes * Stevo Dalton MD - 08/19/2014 8:09 PM EST Cardiology Office Note PCP: EDIN MESSINA MD The patient is a 58 y.o. year old male with:follow-up of CAD and stent placement Patient Active Problem List Diagnosis ??? CAD (coronary artery disease) Overview Note: CARDIAC CATHETERIZATION - Procedure: Coronary Angiography 09/11/13 [...] PTCA of mid LCX ??? Tobacco abuse Overview Note: Quit 09/11/13, had been smoking 10 cigarettes prior to starting the patch, has been smoke free sinceusing the patch 10/09/13 Has been wearing patches 2 days, doing well smoke free ??? Chest pain ??? Hypertension ??? Hyperlipidemia ??? Emphysema/COPD ??? Carotid stenosis ??? PVD (peripheral vascular disease) Overview Note: R JAYA stent 12/07/11 ??? Low back pain radiating to right leg Current Outpatient Prescriptions Medication Sig Dispense Refill [...] No current facility-administered medications for this visit. Contrast History Social History Narrative Lives with his in [place], [place]. 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 Has 5 children and many grandchildren. Cardiac risk factors: Lipid Status-- Lab Results Component Value Date CHLPL 117 10/11/2013 HDL 32* 10/11/2013 LDLCHOL 67 10/11/2013 TRIG 92 10/11/2013 Intercurrent Events: 1) Hospitalizations--none 2) Syncope yes() no (x) 3) AICD status yes () no (x) 4) Pacemaker status yes() no(x) 5) Medication changes since last visit--none 6) Home O2 yes() no (x) Test Results: No results found for this or any previous visit (from the past 72 hour(s)). Subjective: He has known CAD and had 2 cardiac caths with stent placement in his dominant circumflex : 09/12/2013 and 10/10/2013. He did receive a study stent on the first procedure. He is followed by Dr. Lauri Winn and is stable and increasing his activities. He also has PVD and this has been documented by his NALDO's.. He has not been back in the hospital since his second stent placement. 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 He has not had any of the chest pain he had prior to his stent placement. This he described as gasbubble like pressure under his sternum that radiated to both arms. He does note some feeling from time to time as noted in Dr. Winn's note and he does use sl TNG but these are not like his previous discomfort and they are atypical for angina . He quit smoking nearly a year ago. 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 Objective: BP 120/70 p 86 and regular Neck veins are visible and not distended. HEENT: No abnormalities. The carotid upstrokes are normal without bruits. The chest is clear. Cardiac sounds are normal. The abdomen is soft and non-tender without organomegaly or mass. There is no edema. The extremities are warm and well perfused. There is no pathologic lymphadenopathy. Assessment: Today's EKG is normal. I reviewed his current status in detail and I do not think he ishaving angina. He is tolerating his medications well Plan: Continue current program. Follow-up has been scheduled. Cc:EDIN MESSINA MD I spent 20 minutes of this 25 minute visit in conversations directly with him about his current cardiac status. documented in this encounter Plan of Treatment Upcoming Encounters Date Type Department Care Team (Late st Contact Info) Description 01/10/2024 7:45 AM EDT Appointment Hematology [place] [address] 01/21/2024 10:[address] [place] [address] Heber Phillips MD [facility] DR HEMATOLOGY/[place] [address] 03/28/2024 10:00 AM EDT Office Visit Hematology/Oncology at [address] [phone] Heber Phillips MD [facility] DR HEMATOLOGY/[place] [address] Isabella Baker APRN [facility] [place] [address] documented as of this encounter Visit Diagnoses Diagnosis CAD (coronary artery disease) Coronary atherosclerosis of unspecified type of vessel, chenega or graft documented in this encounter Care Teams Office Services Coordinator Relationship Specialty Start Date End Date Edin Messina MD [address] [place], [place] [address] [address] [place], [place] [address] PCP - General 10/02/11 01/11/22 documented as of this encounter
--- OUTSIDE RECORDS SUMMARY | 2024-01-05 02:49 | XMS_ITS | Encounter Summary ---
Author Organization [facility] [place] [address] Care Team Providers Care Biofuels Manager Name Role Phone Edin Messina MD Primary Care Provider [phone] Reason for Referral * (Routine) - Closed by system - Referral Specialty Diagnoses / Procedures Referred By Contac t Referred To Contact Cardiac Rehabilitation Diagnoses Chest pain Stevo Mccall MD [facility] [place] [address] Referral ID Status Reason Start Date Expiration Date Visits Requested Visits Authorized [id number] Closed by system - Referral Evaluate and Treat 09/13/2013 03/12/2014 1 1 Encounter Details Date Type Department Care Team (Latest Contact Info) Description 09/11/2013 2:53 PM EDT - 09/13/2013 12:25 PM EDT Hospital Encounter Inter[place] [address] Stevo Mccall MD [facility] [place] [address] Chest pain Discharge Disposition: Home Social History Tobacco Use Types Packs/Day Years Used Date Smoking Tobacco: Every Day Cigarettes Tobacco Cessation:Ready to Q uit: Yes Comments:ill give it a try Alcohol Use Standard Drinks/Week Comments No 0 (1 standard drink = 0.6 oz pure alcohol) Sober 22 years the summer Sex and Gender Information Value Date Recorded Sex Assigned at Not on file Gender Identity Not on file Sexual Orientation Not on file documented as of this encounter Last Filed Vital Signs Vital Sign Reading Time Taken Comments Blood Pressure 120/60 09/13/2013 11:23 AM EDT Pulse 84 09/13/2013 11:23 AM EDT Temperature 36.3 ??C (97.3 ??F) 09/13/2013 1 1:23 AM EDT Respiratory Rate 19 09/13/2013 11:2 3 AM EDT Oxygen Saturation 95% 09/13/2013 11: 23 AM EDT Inhaled Oxygen Concentration - - Weight 69.8 kg (153 lb 14.1 oz) 09/13/2013 7:00 AM EDT Height 170.2 cm (5' 7) 09/11/2013 3:00 PM EDT Body Mass Index 24.1 09/11/2013 3:00 PM EDT documented in this encounter Discharge Instructions * Discharge Instructions* Anitha Carlos APRN - 09/13/2013 9:24 AM EDT Anti-coagulation follow up: n/a Call your doctor if: Chest pain, shortness of breath, pain or swelling in legs occurs. If you have non-emergent questions between now and the time of your follow up appointments: During 8am-5pm Wednesday through Wednesday call [phone] to speak with a nurse in the cardiology clinic All other times call [phone] and ask to speak to the tankage grinder operator cotton feeder. Return to work: Retired Driving: No driving for 48 hours after catheterization. Follow up Appointments: PCP EDIN MESSINA MD September 20, 2013 at 2:[address] [facility] [place] October 16, 2013 at 9:20 am Home oxygen therapy: N/A Arrangements for VNA/home care: none documented in this encounter Medications at Time [...] as needed. 25 tablet 12 09/13/2013 04/30/2021 metoprolol succinate (TOPROL-XL) 50 mg 24 hr tablet Take 1 tablet by mouth daily. 30 tablet 2 09/13/2013 10/09/2013 pantoprazole (PROTONIX) 40 mg tablet Take 1 tablet by mouth daily. 30 tablet 2 09/13/2013 09/27/2018 hydrochlorothiazide (HYDRODIURIL) 25 mg tablet Take 25 mg by mouth every other day. 10/12/2023 lisinopril (PRINIVIL;ZESTRIL) 10 mg tablet Take 10 mg by mouth daily. 10/22/2016 naproxen sodium (ALEVE) 220 mg Cap Take 440 mg by mouth as needed. For back pain. 10/11/2013 albuterol-ipratropium (COMBIVENT) 18-103 mcg/Actuation inhaler 2 Puff(s), Inh, Twice daily 03/09/2006 05/03/2020 documented as of this encounter Progress Notes * Prior, Laxmi Addison RN - 09/13/2013 5:03 PM EDT Tobacco Treatment note: Tobacco cessation consult rec'd from Nitin S: I have tried many time to stop smoking and will try again to quit now. I smoke 1 ppd. I smoke inthe house and in my truck. My gave up smoking 2 years ago and is supportive helping me quit. Iwas able to give up drinking 20 years ago; but smoking is more difficult. I did try chantix, bupropion did help with the cravings. The nicotine patch is on now and is helping a bit. I will ask the doctor to order buproprion when I am discharged today. Stopping smoking is the hardest thing to quit. I have been to Nelly Gross, tobacco system specialist at [facility] and could go there again. I am not found of group sessions. O/A: Positive recognition was given for his current attempts to stop smoking and encouraged him to continue to use the nicotine patch upon discharge along with the bupropion. Discussed the health benefits of his choosing to stop smoking specific to him. Reviewed the 7 FDA approved smoking cessationmedications and their effects. Discussed the Tobacco cessation resources: [place] quitline 5-130-VDRP-NOW, [facility] tobacco treatment resources and the D Tobacco treatment program [phone]. Discussed alternative methods of dealing with cravings and habits around smoking. A D- Tobacco treatment packetwas briefly reviewed and given to pt. Plan: He plans to use local resources for quitting smoking. He will ask his clinician for a prescription for bupropion as it did work for him to help with the urges to smoke in the past and will think about using the [place] Quitline for free tobacco treatment counseling and free NRT. Laxmi Brown RN, MS, C-TTS Beeper * Candy Villegas DT - 09/13/2013 11:17 AM EDT Nutrition Services - Education Note Britta Tillman : 1955 AGE: 58 y.o. Patient Active Problem List Diagnosis Date Noted ??? *Hospital-Chest pain 09/11/2013 ??? Hospital-Hypertension 09/11/2013 ??? Hospital-Hyperlipidemia 09/11/2013 ??? Hospital-Emphysema/COPD 09/11/2013 ??? Hospital-Carotid stenosis 10/28/2011 ??? Hospital-PVD (peripheral vascular disease) 10/28/2011 ??? Low back pain radiating to right leg Reason for Nutrition Intervention: Consult Diet Order: [facility] Appetite: good Food allergies: none Chewing/Swallowing difficulty: none (per patient) Ht Readings from Last 3 Encounters: 09/11/13 170.2 cm (5' 7) 09/11/13 170.2 cm (5' 7) 01/18/13 167.6 cm (5' 6) Wt Readings from Last 3 Encounters: 09/13/13 69.8 kg (153 lb 14.1 oz) 09/13/13 69.8 kg (153 lb 14.1 oz) 02/21/13 69.854 kg (154 lb) Body mass index is 24.10 kg/(m^2). Education: [facility] dietary guidelines. Guidelines for a Heart Healthy Lifestyle dietary guidelines. Verbalized good understanding. Education material, with means of contact provided. Assessment: Patient verbalized good understanding of dietary guidelines for a heart healthy lifestyle. He understands he needs to make changes with his food choices at this time. Educational materialGuidelines for a Heart Healthy Lifestyle with contact information of future questions arise. Nutrition Plan: Diet: [facility] Recommend Daily Multi Vitamins. Encourage good po intake. Monitor weight. Support and encouragement provided. Nutrition services to follow weekly thru hospital course unless consulted in the interim. ANAHI Jansen * Stevo Mccall MD - 09/13/2013 8:30 AM EDT Images from the original note were not included. 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 Chest pain ??? Hypertension ??? Hyperlipidemia ??? Emphysema/COPD ??? PVD (peripheral vascular disease) R JAYA stent 12/07/11 ??? Carotid stenosis Resolved Hospital Problems Diagnosis Date Resolved No resolved problems to display. Interval History: Patient had chest pain in a different location post cath in his left upper chest.He says it wasn't responsive to nitroglycerin, but tylenol worked well. Out of bed ambulating feeling well. He feels his breathing is improved. Left groin is sore but not painful. Review of Systems: Review of Systems Respiratory: Negative for shortness of breath. Cardiovascular: Negative for chest pain (none overnight), palpitations and leg swelling. Musculoskeletal: Left groin feels well. All other systems reviewed and are negative. Telemetry: HR: 70-110 sinus rhythm, sinus tachycardia Meds: Scheduled Meds: ??? aspirin 81 mg Oral Daily ??? clopidogrel 75 mg Oral Daily ??? [COMPLETED] alum-mag hydroxide-simeth ??? nicotine 14 mg Transdermal Daily And ??? nicotine 1 patch Transdermal Daily ??? atorvastatin 80 mg Oral QPM ??? lisinopril 10 mg Oral Daily ??? fluticasone-salmeterol 2 puff Inhalation Q12H ASIF ??? ipratropium-albuterol 3 mL Nebulization 4 Times Daily ??? metoprolol tartrate 12.5 mg Oral Q6H ASIF ??? [DISCONTINUED] aspirin 81 mg Oral Daily Continuous Infusions: ??? [] sodium chloride 0.9% 100 mL/hr (09/12/13 1045) ??? [DISCONTINUED] bivalirudin 170.8 mg/hr (09/12/13 0936) ??? [DISCONTINUED] sodium chloride 0.9% 150 mL (09/12/13 1012) ??? lactated ringers Stopped (09/12/13 0802) PRN Meds:[DISCONTINUED] aspirin, [DISCONTINUED] midazolam (PF), [DISCONTINUED] fentaNYL (PF), [DISCONTINUED] lidocaine, [DISCONTINUED] fentaNYL (PF), [DISCONTINUED] clopidogrel, [DISCONTINUED] bivalirudin, [DISCONTINUED] bivalirudin, [DISCONTINUED] nitroGLYCerin, [DISCONTINUED] nitroGLYCerin, [DISCO NTINUED] fentaNYL (PF), [DISCONTINUED] sodium chloride 0.9%, [DISCONTINUED] iohexol, [DISCONTINUED]midazolam (PF), [DISCONTINUED] atropine [DISCONTINUED] fentaNYL (PF), nitroGLYcerin, acetaminophen, LORazepam Physical Exam: Vital Signs: Last value Range last 24 hrs Temperature Temp: 36.5 ??C (97.7 ??F) Temp: [36.4 ??C (97.5 ??F)-36.7 ??C (98.1 ??F)] Heart Rate Heart Rate: 79 Heart Rate: [79-105] Blood Pressure BP: 107/59 mmHg BP: (107-167)/(52-93) Respiratory Rate Resp: 20 Resp: [10-29] SpO2 SpO2: 97 % SpO2: [91 %-97 %] Physical Exam Nursing note and [...] friction rub. No murmur heard. Pulmonary/Chest: Effort normal. No respiratory distress. He has wheezes (throughout). He has no rales. Abdominal: Soft. Bowel sounds are normal. He exhibits no distension. There is no tenderness. There is no rebound. Musculoskeletal: Normal range of motion. He exhibits no edema. Neurological: He is alert and oriented to person, place, and time. Skin: Skin is warm and dry. No rash noted. He is not diaphoretic. No erythema. Left groin is clean, dry and intact. Small dime sized hematoma. No ooze. Intact distal pedal pulses. No bruit. Psychiatric: He has a normal mood and affect. His behavior is normal. Lab Comments: Recent Labs Basename 09/13/133 09/12/13 0430 09/11/13 1540 WBC 21.4* 13.0* 10.9* HGB 13.6* 14.5 15.1 HCT 40.4 43.0 44.4 PLATELET 382* 398* 414* Recent Labs Basename 09/11/13 1540 INR 0.9 Recent Labs Basename 09/13/13 0413 09/12/13 0430 09/11/13 1540 NA 138 135 137 K 3.8 4.0 3.7 CL 106 101 100 CO2 25 22 27 BUN 19 28* 23* CREATININE 0.89 0.96 1.09 No results found for this basename: AST:3,ALT:3,ALKPHOS:3,BILITOT:3,BILIDIR:3 in the last 168 hours Recent Labs Basename 09/13/13 0413 09/12/13 0430 09/11/13 1540 CALCIUM 8.7 9.4 9.8 MAGNESIUM -- -- -- PHOS -- -- -- Recent Labs Basename 09/13/13 0413 09/12/13 1730 09/12/13 1005 09/12/13 0430 CK 340* 218* 56 -- TROPONINT 1.05* -- <0.03 <0.03 Pertinent Radiographic/Diagnostic Results: I have independently visualized the following studies: ECG: HR 84 sinus rhythm with no acute change Assessment: Britta Tillman is a 58 y.o. male who has ruled out for myocardial infarction, prior to cardiac cath. Intra op IL. Chest pain post procedure was different than pre procedure. Since tylenol yesterday afternoon he has felt well. Out of bed ambulating without incident. Nicotine patch has been helpful. Cardiac rehab and nutritional consult needed. Plan: Unstable angina, new CAD Absorb trial participant Plavix for 1 year Feeling well with metoprolol, breathing feels improved, no worsening of his wheezes Cardiac rehab and nutrition consult needed Hypertension On lisinopril, metoprolol, hctz Will follow trends, SBP range 120-150s Hyperlipidemia Increased to atorvastatin 80 mg daily at discharge TC 138, HDL 39, LDL 85, Trig 59 COPD On inhalers, will adjust some for medication costs Duonebs four times daily Carotid stenosis R proximal internal carotid > than left proximal internal carotid stenosis Duplex done in February 2013 PVD Recent right iliac stent placed by vascular Tobacco abuse Nicotine patch helpful, will need ongoing outpatient smoking cessation assistance Anticipate discharge home today with referral to cardiac rehab Discussed with Stevo Mccall MD Janette Stender, APRN 09/13/2013 Attending Catshovel Driver Discharge Day Addendum: Britta Tillman is a 58 y.o. male whom I saw today with associate provider Anitha Carlos APRN. I have independently interviewed and examined the patient and reviewed the pertinent diagnostic information. I agree with the principal findings documented above. The assessment and plan were formulated indiscussion with me. I am a credentialed toy mechanic at [facility] and I am the attending of record for the patient's admission. I certify that this patient meets or has met the criteria for inpatient treatment for their acute condition meeting a minimum of two midnights. The acute condition is: Acute coronary syndrome with rest angina Patient Active Problem List Diagnosis Code ??? Low back pain radiating to right leg 724.2 ??? Carotid stenosis 433.10 ??? PVD (peripheral vascular disease) 443.9 ??? Chest pain 786.50 ??? Hypertension 401.9 ??? Hyperlipidemia 272.4 ??? Emphysema/COPD 492.8 Scheduled Medications: ??? senna 8.6 mg Oral BID ??? aspirin 81 mg Oral Daily ??? clopidogrel 75 mg Oral Daily ??? nicotine 14 mg Transdermal Daily And ??? nicotine 1 patch Transdermal Daily ??? atorvastatin 80 mg Oral QPM ??? lisinopril 10 mg Oral Daily ??? fluticasone-salmeterol 2 puff Inhalation Q12H ASIF ??? ipratropium-albuterol 3 mL Nebulization 4 Times Daily ??? metoprolol tartrate 12.5 mg Oral Q6H ASIF Interval findings: He is ambulating without recurrence of angina. Tolerating low dose metoprolol and reports breathingis better. Blood pressure 107/59, pulse 79, temperature 36.5 ??C (97.7 ??F), temperature source Oral, resp. rate 20, height 170.2 cm (5' 7), weight 69.8 kg (153 lb 14.1 oz), SpO2 97.00%. Examination is consistent . Chest is clear Cor no m/R/G Ext: no edema Cath site LFA is benign Laboratory and Diagnostic studies: Troponin 1.05 ECG, sinus rhythm, rate 82, no acute changes, essentially normal tracing Plan: He is ambulating and ready for discharge, continue aspirin indefinitely, statin, ACEi, clopidogrel for a minimum of 12 months, cardiac rehabilitation, smoking cessation. Details per d/c summary. Stevo Mccall MD, MS,, [facility] Staff Catshovel Driver * Lisa Jmaison RN - 09/12/2013 2:57 PM EDT Reviewed record and received report from Anitha Carlos NP. Did not interview patient. Per Dr. Mccall:58 y.o. male who has ruled out for myocardial infarction. Chest pain at rest x 2 overnight on heparin gtt. Will plan for cardiac cath today. Unstable angina Stent insertion Social: and lives with his in [place], [place]. Insurance:[employer] Anticipated discharge needs: None expected at this time. Plan: Home with support of family when medically ready. No discharge needs anticipated at this time. CRC will follow clinical status and remain available if any needs should arise. Lisa Jamison RN, BSN covering CRC Remi Sky pager [phone]. * Rafael Foote - 09/12/2013 10:25 AM EDT ABSORB III ENROLLMENT NOTE ABSORB III RANDOMIZED CONTROLLED TRIAL A Clinical Evaluation of Absorb??? BVS, the Everolimus Eluting Bioresorbable Vascular Scaffold in the Treatment of Subjects with de rupal [place] Coronary Artery Lesions PI: Rivas Montesinos MD Pager #:[phone] Research Coordinators: ANIYA Pickering, BA, [employer] Pager #:[phone] Chacorta Sheikh RN Pager #: [phone] Purpose: The pivotal trial to support the [place] pre-market approval (PMA) of Absorb BVS. ABSORB III will evaluate the safety and effectiveness of the Absorb BVS System compared to the XIENCE in the treatment of subjects, including those with diabetes mellitus, with ischemic heart disease caused by up to two denovo ambler coronary artery lesions in separate epicardial vessels. Study Design: A prospective, randomized (2:1 ABSORB BVS to XIENCE), single-blind, multi-center trial registering ~2250 patients. Subject Enrollment, Randomization and Registration: - Subjects are considered enrolled in ABSORB III after signing the Informed Consent. - Subjects are considered randomized in ABSORB III after the interactive voice response system (IVRS) has been called and a device (Absorb BVS or XIENCE) has been assigned. - Subjects are considered registered in the ABSORB III upon randomization. Following angiographic screening, it was determined the subject satisfied all inclusion criteria and none of the exclusion criteria. The subject was randomized via IVRS and registered into the ABSORBIII trial, follow-up will continue through 5 years post procedure. Study ID#: [id number], F NOTE: Patient must remain blinded to their assigned study device!! * Stevo Mccall MD - 09/12/2013 9:37 AM EDT Images from the original note were not included. 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 Chest pain ??? Hypertension ??? Hyperlipidemia ??? Emphysema/COPD ??? PVD (peripheral vascular disease) R JAYA stent 12/07/11 ??? Carotid stenosis Resolved Hospital Problems Diagnosis Date Resolved No resolved problems to display. Interval History: Patient had chest pain twice overnight. Relieved with sl nitroglycerin. No ECG changes. Echo done late last night, report to come today. Ruled out for IL. Eager to get cardiac cath over with today. Review of Systems: Review of Systems Respiratory: Negative for shortness of breath. Cardiovascular: Positive for chest pain (overnight x 2). Negative for palpitations and leg swelling. All other systems reviewed and are negative. Telemetry: HR: 49-66 sinus bradycardia, sinus rhythm with rare PVC Meds: Scheduled Meds: ??? [COMPLETED] diaZEPam 5 mg Oral Once ??? [COMPLETED] diphenhydrAMINE 25 mg Oral Once ??? aspirin 81 mg Oral Daily ??? atorvastatin 80 mg Oral QPM ??? lisinopril 10 mg Oral Daily ??? fluticasone-salmeterol 2 puff Inhalation Q12H ASIF ??? ipratropium-albuterol 3 mL Nebulization 4 Times Daily ??? metoprolol tartrate 12.5 mg Oral Q6H ASIF ??? [COMPLETED] predniSONE 60 mg Oral Q6H ASIF ??? [DISCONTINUED] albuterol-ipratropium 1 puff Inhalation 4 Times Daily ??? [DISCONTINUED] fluticasone 1 puff Inhalation BID ??? [DISCONTINUED] salmeterol 1 puff Inhalation BID ??? [DISCONTINUED] metoprolol tartrate 25 mg Oral Q6H ASIF Continuous Infusions: ??? bivalirudin 170.8 mg/hr (09/12/13 0936) ??? lactated ringers Stopped (09/12/13 0802) ??? [DISCONTINUED] heparin Stopped (09/12/13801) PRN Meds:aspirin, midazolam (PF), fentaNYL (PF), lidocaine, fentaNYL (PF), clopidogrel, bivalirudin, bivalirudin, nitroGLYcerin, acetaminophen, LORazepam, [DISCONTINUED] heparin (porcine) Physical Exam: Vital Signs: Last value Range last 24 hrs Temperature Temp: 36.7 ??C (98.1 ??F) Temp: [36.5 ??C (97.7 ??F)-36.7 ??C (98.1 ??F)] Heart Rate Heart Rate: 87 Heart Rate: [76-91] Blood Pressure BP: 133/68 mmHg BP: (118-135)/(55-87) Respiratory Rate Resp: 16 Resp: [16-18] SpO2 SpO2: 92 % SpO2: [92 %-99 %] Physical Exam Nursing note and vitals [...] friction rub. No murmur heard. Pulmonary/Chest: Effort normal. No respiratory distress. He has wheezes (throughout). He has no rales. Abdominal: Soft. Bowel sounds are normal. He exhibits no distension. There is no tenderness. There is no rebound. Musculoskeletal: Normal range of motion. He exhibits no edema. Neurological: He is alert and oriented to person, place, and time. Skin: Skin is warm and dry. No rash noted. He is not diaphoretic. No erythema. Psychiatric: He has a normal mood and affect. His behavior is normal. Lab Comments: Recent Labs Basename 09/12/13 0430 09/11/13 1540 WBC 13.0* 10.9* HGB 14.5 15.1 HCT 43.0 44.4 PLATELET 398* 414* Recent Labs Basename 09/11/13 1540 INR 0.9 Recent Labs Basename 09/12/13 0430 09/11/13 1540 NA 135 137 K 4.0 3.7 CL 101 100 CO2 22 27 BUN 28* 23* CREATININE 0.96 1.09 No results found for this basename: AST:3,ALT:3,ALKPHOS:3,BILITOT:3,BILIDIR:3 in the last 168 hours Recent Labs Basename 09/12/13 0430 09/11/13 1540 CALCIUM 9.4 9.8 MAGNESIUM -- -- PHOS -- -- Recent Labs Basename 09/12/13 0430 09/11/13 2200 09/11/13 1540 CK 60 63 66 70 TROPONINT <0.03 <0.03 <0.03 Pertinent Radiographic/Diagnostic Results: Echo 09/11/13 1. Technically limited echo. No prior echo for comparison. 2. The left ventricular chamber size is normal. Left ventricular wall thickness is normal. There isnormal global left ventricular systolic function. The visually estimated left ventricular ejection fraction is 60%. There are no left ventricular segmental wall motion abnormalities. 3. The left atrium is normal in size. 4. Right ventricular chamber size, wall thickness, and systolic function are within normal limits. 5. There is no hemodynamically significant valvular disease. 6. See remainder of report for additional findings. I have independently visualized the following studies: ECG: HR 78 sinus rhythm with no acute change Assessment: Britta Tillman is a 58 y.o. male who has ruled out for myocardial infarction. Chest pain at rest x 2 overnight on heparin gtt. Will plan for cardiac cath today. Plan: Unstable angina, ruled out for IL On heparin gtt Cardiac cath today Echo as above Will premedicate with steroids for IV dye reaction of itching and hives in the past Cardiac rehab and nutrition consult needed Hypertension On lisinopril, metoprolol Will follow trends, SBP range 110-130s Hyperlipidemia On statin at home, atorvastatin 20 mg daily Increased to atorvastatin 80 mg daily TC 138, HDL 39, LDL 85, Trig 59 COPD On inhalers, will adjust some for medication costs Duonebs four times daily Carotid stenosis R proximal internal carotid > than left proximal internal carotid stenosis Duplex done in February 2013 PVD Recent right iliac stent placed by vascular Discussed with Stevo Mccall MD Janette Stender, APRN 09/12/2013 Attending Catshovel Driver Addendum: Britta Tillman is a 58 y.o. male whom I saw today 09/12/2013 with associate provider KAMALJIT Alvarenga. I have independently interviewed and examined the patient and reviewed the pertinent diagnosticinformation. I agree with the principal findings documented above. The assessment and plan were formulated in discussion with me. I am a credentialed toy mechanic at [facility] and I am the attending of rec ord for the patient's admission. I certify that this patient meets or has met the criteria for inpatient treatment for their acute condition meeting a minimum of two midnights. The acute condition is: Acute coronary syndrome with rest angina Patient Active Problem List Diagnosis Code ??? Low back pain radiating to right leg 724.2 ??? Carotid stenosis 433.10 ??? PVD (peripheral vascular disease) 443.9 ??? Chest pain 786.50 ??? Hypertension 401.9 ??? Hyperlipidemia 272.4 ??? Emphysema/COPD 492.8 Scheduled Medications: ??? [COMPLETED] diaZEPam 5 mg Oral Once ??? [COMPLETED] diphenhydrAMINE 25 mg Oral Once ??? [START ON 09/13/2013] aspirin 81 mg Oral Daily ??? [START ON 09/13/2013] clopidogrel 75 mg Oral Daily ??? [COMPLETED] alum-mag hydroxide-simeth ??? atorvastatin 80 mg Oral QPM ??? lisinopril 10 mg Oral Daily ??? fluticasone-salmeterol 2 puff Inhalation Q12H ASIF ??? ipratropium-albuterol 3 mL Nebulization 4 Times Daily ??? metoprolol tartrate 12.5 mg Oral Q6H ASIF ??? [COMPLETED] predniSONE 60 mg Oral Q6H ASIF ??? [DISCONTINUED] albuterol-ipratropium 1 puff Inhalation 4 Times Daily ??? [DISCONTINUED] aspirin 81 mg Oral Daily ??? [DISCONTINUED] fluticasone 1 puff Inhalation BID ??? [DISCONTINUED] salmeterol 1 puff Inhalation BID ??? [DISCONTINUED] metoprolol tartrate 25 mg Oral Q6H ASIF Interval findings: He had recurrent pain this am. Coronary angiography today showed severe stenosis of distal co-dominant LCx with moderate disease mid LAD and of ostium large proximal OM. He is now doing well post PCIto distal LCx. Blood pressure 129/83, pulse 96, temperature 36.7 ??C (98.1 ??F), temperature source Oral, resp. rate 14, height 170.2 cm (5' 7), weight 69 kg (152 lb 1.9 oz), SpO2 95.00%. . Chest with diffuse wheezes Cor no m/R/G Laboratory and Diagnostic studies: Troponin assays are negative; Plan: I agree with plan as noted above that includes aspirin indefinitely, statin, ACEi, he will also require clopidogrel for a minimum of 12 months, cardiac rehabilitation, smoking cessation. Rx with beta blockers will be limited by his COPD. Stevo Mccall MD, MS,, [facility] Staff Catshovel Driver * Rafael Foote - 09/12/2013 7:47 AM EDT ABSORB III RANDOMIZED CONTROLLED TRIAL A Clinical Evaluation of Absorb??? BVS, the Everolimus Eluting Bioresorbable Vascular Scaffold in the Treatment of Subjects with de rupal [place] Coronary Artery Lesions PI: Rivas Montesinos MD Pager #:[phone] Research Coordinators: Rafael Foote, BS, BA, [employer] Pager #:[phone] Chacorta Sheikh RN Pager #: [phone] Purpose: The pivotal trial to support the [place] pre-market approval (PMA) of Absorb BVS. ABSORB III will evaluate the safety and effectiveness of the Absorb BVS System compared to the XIENCE in the treatment of subjects, including those with diabetes mellitus, with ischemic heart disease caused by up to two denovo ambler coronary artery lesions in separate epicardial vessels. Study Design: A prospective, randomized (2:1 ABSORB BVS to XIENCE), single-blind, multi-center trial registering ~2250 patients. Consent: Following the determination this potential participant did not have any obvious evidence of clinical exclusion to the ABSORB III Randomized Controlled Trial, the subject was provided with a written informed consent. The purpose, procedures, risks, potential benefits of the study, as well as alternatives to participation were reviewed and questions were answered. The subject signed the informed consent agreeing to participate, providing angiographic inclusion criteria are satisfied. The subject was provided with a copy of the signed informed consent document. documented in this encounter H&P Notes * Stevo Mccall MD - 09/11/2013 4:21 PM EDT Cardiology Admission H&P Patient Name: Britta Tillman Date of : 1955 Age: 58 y.o. Hospital Admit Date: 09/11/2013 Inpatient Attending: Stevo Mccall MD PCP: EDIN MESSINA MD Presenting Diagnosis/Chief Complaint: Chest pain Active Problem List: Active Hospital Problems Diagnosis ??? Chest pain ??? Hypertension ??? Hyperlipidemia ??? Emphysema/COPD ??? PVD (peripheral vascular disease) R JAYA stent 12/07/11 ??? Carotid stenosis Resolved Hospital Problems Diagnosis Date Resolved No resolved problems to display. History of Present Illness: HPI Comments: Patient is 58 year old with a history of hypertension, hyperlipidemia, PVD with rightiliac stenting and carotid stenosis who noticed that he was getting chest pain about six months ago. Chest pain is substernal and has been occuring at rest. Associated diaphoresis and bilateral arm nu mbness. Sometimes he noticed that belching helped, and this belch can feel like his dinner is coming up. The pain is worse when he bends over. He was given sl nitroglyceirn and omeprazole a few months ago to try them out. If belching won't work he will take a sl nitroglycerin. He has noticed that his chest pain has become more frequent over the past two months. It is now daily and he has had to take the sl nitroglycerin with increasing frequency and more than just one to have the pain be relieved. He rates his pain 9/10 but this pain will happen in waves. Today he had a regularly scheduled appointment with EDIN MESSINA MD for follow up with his colonoscopy, which the patient states was fine. While he was on the table having his abdomen examed hefelt his chest pain symptoms starting. He had an ECG hooked up and this showed lateral ST depressions and he was treated with sl nitroglycerin. EMS was called and he went to [facility] for assessment. He was started on IV heparin gtt. His first troponin was normal. He had some chest discomfort on the ambulance ride down to [facility], but none since his arrival. Past Medical History: Past Medical History Diagnosis Date ??? Hyperlipidemia ??? Hypertension ??? Low back pain radiating to right leg ??? Urinary incontinence ??? COPD (chronic obstructive pulmonary disease) ??? Tobacco abuse ??? Carotid stenosis 10/28/2011 ??? PVD (peripheral vascular disease) 10/28/2011 Surgical History/Problems: No past surgical history on file. Significant Family History: Family History Problem Relation Age of Onset ??? Emphysema Mother ??? Hypertension Father ??? Hyperlipidemia Father ??? Cerebrovasular Accident Father Social History: History Social History ??? Marital Status: Spouse Name: N/A Number of Children: 5 ??? 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 Smoking status: Current Every Day Smoker -- 1.0 packs/day ??? Smokeless tobacco: Not on file Comment: ill give it a try ??? Alcohol Use: No Comment: Sober 22 years the summer ??? Drug Use: No ??? Sexually Active: Not on file Other Topics Concern ??? Not on file Social History Narrative Lives with his in [place], [place]. Retired from [employer] where he did repairs for 40 years. Has 5 children and many grandchildren. REVIEW OF SYSTEMS: Review of Systems Constitutional: Positive for diaphoresis. Negative for activity change, appetite change and fatigue. HENT: Positive for tinnitus (chronic). Negative for congestion, sore throat and trouble swallowing. Respiratory: Negative for shortness of breath. Cardiovascular: Positive for chest pain. Negative for palpitations and leg swelling. Gastrointestinal: Positive for diarrhea. Negative for nausea, vomiting and constipation. Genitourinary: Negative for dysuria, urgency, frequency and hematuria. Skin: Negative. Neurological: Negative for dizziness, syncope, light-headedness and headaches. Psychiatric/Behavioral: Positive for confusion. The patient is not nervous/anxious. All other systems reviewed and are negative. Medications: Prescriptions prior to admission Medication Sig Dispense Refill ??? hydrochlorothiazide (HYDRODIURIL) 25 mg tablet Take 25 mg by mouth daily. ??? omeprazole (PRILOSEC) 20 mg capsule Take 20 mg by mouth daily. ??? lisinopril (PRINIVIL;ZESTRIL) 10 mg tablet Take 10 mg by mouth daily. ??? nitroGLYcerin (NITROSTAT) 0.[address] 0.4 mg under the tongue every 5 minutes as needed. ??? fluticasone (FLOVENT) 220 mcg/actuation inhaler Inhale 1 puff into the lungs 2 times daily. ??? FIBER CHOICE ORAL Take 1 tablet by mouth daily. ??? naproxen sodium (ALEVE) 220 mg Cap Take 440 mg by mouth as needed. For back pain. ??? salmeterol (SEREVENT) 50 mcg/dose diskus inhaler Inhale 1 puff into the lungs 2 times daily. ??? [DISCONTINUED] Budesonide-Formoterol (SYMBICORT) 80-4.5 mcg/actuation HFAA Inhale 1 puff into the lungs 2 times daily. ??? atorvastatin (LIPITOR) 20 mg tablet Take 20 mg by mouth daily. ??? aspirin 81 mg EC tablet Take 81 mg by mouth daily. ??? albuterol-ipratropium (COMBIVENT) 18-103 mcg/Actuation inhaler 2 Puff(s), Inh, Twice daily Allergies: Allergies Allergen Reactions ??? Contrast (Iodine-Iodine Containing) Anaphylaxis and Hives He has tolerated IV dye since with premedication. History of anaphylaxis as well. PHYSICAL EXAM: Last set of vital signs: BP 135/70 Pulse 90 Temp 36.7 ??C (98.1 ??F) (Oral) Resp 18 Ht 170.2 cm (5' 7) Wt 69.3 kg (152 lb 12.5 oz) BMI 23.92 kg/m2 SpO2 97% Physical Exam Nursing note [...] friction rub. No murmur heard. Pulmonary/Chest: Effort normal. No respiratory distress. He has wheezes. He has no rales. Abdominal: Soft. [...] independently visualized the following studies: ECG: HR 83 sinus rhythm with no acute changes LABS: Recent Results (from the past 24 hour(s)) BMP W/FASTING GLUCOSE Component Value Range Glucose Fasting 105 (*) 65 - 99 mg/dL BUN 23 (*) 10 - 20 mg/dL Creatinine 1.09 0.80 - 1.50 mg/dL Sodium 137 135 - 145 mmol/L Potassium 3.7 3.5 - 5.0 mmol/L Chloride 100 98 - 107 mmol/L CO2 27 22 - 31 mmol/L Anion Gap 10 5 - 15 mmol/L Calcium 9.8 8.5 - 10.5 mg/dL Estimated GFR >60 >=60 CARDIAC ENZYMES Component Value Range Troponin-T <0.03 <=0.03 ng/mL CK, Total 70 0 - 200 unit/L PROTHROMBIN TIME Component Value Range PT 12.8 12.0 - 15.0 sec INR 0.9 0.9 - 1.1 APTT Component Value Range PTT 39 (*) 25 - 35 sec CBC (WITH DIFF) Component Value Range WBC 10.9 (*) 4.0 - 10.0 x10(3)/mcL RBC 5.05 4.63 - 6.08 x10(6)/mcL Hemoglobin 15.1 13.7 - 17.5 gm/dL Hematocrit 44.4 40.0 - 51.0 % MCV 87.9 79.0 - 92.0 fL MCH 29.9 25.6 - 32.2 pg MCHC 34.0 32.0 - 36.5 gm/dL Platelets 414 (*) 145 - 370 x10(3)/mcL RDWSD 45.5 35.0 - 46.0 fL RDWCV 14.3 10.9 - 14.4 % MPV 9.8 9.0 - 12.0 fL SCAN, PERIPHERAL BLOOD Component Value Range Plat Estimate Increased RBC Morphology Normal Smudge Cells Present DIFFERENTIAL, AUTOMATED Component Value Range Neutrophils % 64.0 34.0 - 71.0 % Neutr Abs (ANC) 6.96 (*) 1.50 - 6.30 x10(3)/mcL Lymphocytes % 24.1 19.0 - 53.0 % Lymphocytes Abs 2.6 1.0 - 3.6 x10(3)/mcL Monocytes % 9.2 4.0 - 13.0 % Monocyte Abs 1.0 0.2 - 1.0 x10(3)/mcL Eosinophils % 1.6 0.0 - 7.0 % Eosinophils Abs 0.2 0.0 - 0.5 x10(3)/mcL Basophils % 0.4 0.0 - 2.0 % Basophils Abs 0.0 0.0 - 0.2 x10(3)/mcL Immature Gran % 0.70 (*) 0.00 - 0.66 % Suri Gran Abs 0.08 (*) 0.00 - 0.05 x10(3)/mcL ASSESSMENT: Patient is 58 year old with PVD, hypertension, hyperlipidemia, COPD, tobacco abuse and carotid stenosis who presents with chest pain which has increased over the past six months. Symptomsconcerning for unstable angina, considering his other risk factors. Chest pain has happened at rest, will proceed with echo and cardiac cath. The indications, expected benefits and potential risks of heart catheterization were reviewed in detail with the patient. The potential for , heart attack, stroke, kidney failure, hemorrhage, allergic reaction, vascular complications and infection were reviewed in detail. The possibility of stenting and other percutaneous intervention with associated risk was reviewed. The possible need for emergent coronary artery bypass surgery was reviewed. After a discussion about the above, and havinganswered all questions posed, the patient was provided with a consent which was reviewed and signed. PLAN: Chest pain Cycle cardiac enzymes On heparin gtt Consented for cardiac cath for tomorrow Echo in AM first thing Will premedicate with steroids for IV dye reaction of itching and hives in the past Hypertension On lisinopril Start low dose beta yaneth Will follow trends Hyperlipidemia On statin at home, atorvastatin 20 mg daily COPD On inhalers, will adjust some for medication costs Duonebs Carotid stenosis R proximal internal carotid > than left proximal internal carotid stenosis Duplex done in February 2013 PVD Recent right iliac stent placed by vascular Discussed with Stevo Mccall MD Provider: ANITHA CARLOS APRN Provider #: [id number] 09/11/2013 Attending Catshovel Driver H&P Addendum: Britta Tillman is a 58 y.o. male admitted with an acute coronary syndrome manifested as progressive and now rest angina whom I saw today with associate provider KAMALJIT Hu. I have independently interviewed and examined the patient and reviewed the pertinent diagnostic information. I agree with the principal findings documented above. The assessment and plan were formulated in discussion with me. An ECG by his PCP today with pain showed significant anterolateral horizontal STD that resolved with relief of pain. He has known COPD with occasional wheezing, PVD and RF for ASCVD include smoking currently 1 ppd, hyperlidemia and hypertension. Initial troponins are negative. . Plan: as noted above includes IV heparin, aspirin, he was not given clopidogrel due to concerns re multivessel CAD, continue statin, continue ACEi, trial with low dose (in setting of occasional wheezing) beta yaneth, coronary angiography. The findings and plan were reviewed with the patient and his . Stevo Mccall MD, MS,, [facility] Staff Catshovel Driver documented in this encounter Procedure Notes * Provider, Scanning - 09/14/2013 9:44 AM EDTAssociated Order(s): SCAN DOC: BIOLOGY ADJUNCT INSTRUCTOR * Provider, Scanning - 09/14/2013 9:44 AM EDTAssociated Order(s): SCAN DOC: CARDIAC CATH * Provider, Scanning - 09/13/2013 4:00 PM EDTAssociated Order(s): CARDIAC CATHETERIZATION * Provider, Scanning - 09/12/2013 10:40 AM EDTAssociated Order(s): CARDIAC CATHETERIZATION documented in this encounter Miscellaneous Notes * Miscellaneous - Provider, Scanning - 09/14/2013 9:44 AM EDT * Miscellaneous - Provider, Scanning - 09/14/2013 9:44 AM EDT * Discharge Summary - Anitha Carlos APRN - 09/13/2013 10:25 AM EDT Images from the original note were not included. Discharge Summary Patient Name: Britta Tillman Patient Age: 58 y.o. Language: Malawian Race: White Ethnicity: Not nor Admit date: 09/11/2013 Discharge date and time: 09/13/2013 Attending Physician: Stevo Mccall MD Discharge Physician: Stevo Mccall MD Follow-up Recommendations for Providers: Plavix for one year going forward due to stenting Newly started on metoprolol, follow respiratory status Encourage smoking cessation and participation with cardiac rehab Inpatient Provider Contact Information: ANITHALARA CARLOS, [place] [phone] Discharge Diagnoses (Hospital Problems) and Secondary Diagnoses (Chronic Problems): Active Hospital Problems Diagnosis ??? Chest pain ??? Hypertension ??? Hyperlipidemia ??? Emphysema/COPD ??? PVD (peripheral vascular disease) R JAYA stent 12/07/11 ??? Carotid stenosis Resolved Hospital Problems Diagnosis Date Resolved No resolved problems to display. Active Non-Hospital Problems Diagnosis ??? Low back pain radiating to right leg Operations/Major Procedures: Operations: Procedure(s) with comments: CARDIAC CATHETERIZATION - Procedure: Coronary Angiography 09/11/13 LM: normal LAD: mild diffuse disease, mid 50% stenosis LCx: mild diffuse disease, prox 60% involving the bifurcation, 85% mid stenosis which received a stent OM1: 60% ostial, moderate sized vessel involving the bifurcation RCA: normal Patient enrolled in ABSORB trial History of Presentation: Patient is 58 year old with a history of hypertension, hyperlipidemia, PVD with right iliac stenting and carotid stenosis who noticed that he was getting chest pain about six months ago. Chest pain is substernal and has been occuring at rest. Associated diaphoresis and bilateral arm numbness. Sometimes he noticed that belching helped, and this belch can feel like his dinner is coming up. The painis worse when he bends over. He was given sl nitroglycerin and omeprazole a few months ago to try them out. If belching won't work he will take a sl nitroglycerin. He has noticed that his chest pain has become more frequent over the past two months. It is now daily and he has had to take the sl nitroglycerin with increasing frequency and more than just one to have the pain be relieved. He rates his pain 9/10 but this pain will happen in waves. Today he had a regularly scheduled appointment with EDIN MESSINA MD for follow up with his colonoscopy, which the patient states was fine. While he was on the table having his abdomen examined he felt his chest pain symptoms starting. He had an ECG hooked up and this showed lateral ST depressions and he was treated with sl nitroglycerin. EMS was called and he went to [facility] for assessment. He was started on IV heparin gtt. His first troponin was normal. He had some chest discomfort on the ambulance ride down to [facility], but none since his arrival. Hospital Course: Chest Pain, new CAD Given the patient's risk factors, EKG changes, it was decided to proceed with coronary angiography.The patient went to the cardiac cath lab radiology technician for a diagnostic cath which showed mid 85% stenosis of hiscircumflex with other non flow limiting disease. A drug eluting stent was placed. He is part of theABSORB trial. He will need to be on plavix for a minimum of one year and he was started on metoprolol dosing. He continues on his aspirin, DARWIN. His atorvastatin was increased to 80 mg daily. A new prescription for sl nitroglycerin was provided. Post procedure the patient was noted to have an increase in his cardiac enzymes, which was likely a small intraoperative myocardial infarction. Hyperlipidemia Lipid profile showed total cholesterol 138 with LDL 85. Patient has been on atorvastatin 20 mg at home prior to admission. Given his new CAD this was increased to atorvastatin 80 mg daily. Hypertension The patient continues on his lisinopril and hctz. He was started on metoprolol dosing without any worsening of his breathing. His systolic blood pressure range has been 120-150s on this regimen. COPD The patient continues on his home dosing of inhalers without changes. Despite the addition of metoprolol, he has had no increase in his wheezing. Tobacco abuse Smoking cessation was advised & discussed. The patient is a 1 pack per day smoker. He hasn't had any luck quitting in the past. He was given nicotine patch 14 mg/hr and he felt better with this assistance. He will need ongoing support for his smoking cessation plan. The patient was evaluated by the cardiac rehab team. The patient tolerated supervised ambulation inthe hallway and up/downstairs with no anginal symptoms. It was recommended that the patient return home and participate in a supervised cardiac rehab program. The patient was discharged home in stable condition. Functional and Cognitive Status: Ambulatory, independent, alert and oriented x 3 Important Studies and Lab Data: Labs: Lab Results Component Value Date WBC 21.4* 09/13/2013 HGB 13.6* 09/13/2013 HCT 40.4 09/13/2013 PLATELET 382* 09/13/2013 Recent Labs Basename 09/11/13 1540 INR 0.9 Lab Results Component Value Date NA 138 09/13/2013 K 3.8 09/13/2013 CL 106 09/13/2013 CO2 25 09/13/2013 BUN 19 09/13/2013 CREATININE 0.89 09/13/2013 Recent Labs Basename 09/12/13 0430 TSH 0.54 Recent Labs Basename 09/12/13 0430 HA1C 6.1* Recent Labs Basename 09/13/13 0413 09/12/13 1730 09/12/13 1005 09/12/13 0430 CK 340* 339* 218* 56 -- TROPONINT 1.05* -- <0.03 <0.03 Lab Results Component Value Date CHLPL 138 09/12/2013 HDL 39* 09/12/2013 CHOLHDL 3.5 09/12/2013 TRIG 59 09/12/2013 LDLCHOL 87 09/12/2013 LDLDIRECT 85 09/12/2013 Pending Studies and Lab Data: none Discharge Conditions/Prognosis: Ambulatory without anginal symptoms Discharge to: Home Updated Allergies/ADRs: Allergies Allergen Reactions ??? Contrast (Iodine-Iodine Containing) Anaphylaxis and Hives He has tolerated IV dye since with premedication. History of anaphylaxis as well. Immunizations Given this Hospitalization: There is no immunization history on file for this patient. Discharge Medications: Your Medications As of 09/13/2013 10:25 AM New Medications Dose Details clopidogrel 75 mg tablet Commonly known as: PLAVIX Take 1 tablet by mouth daily. 75 mg Quantity: 90 tablet Refills: 3 metoprolol succinate 50 mg 24 hr tablet Commonly known as: TOPROL-XL Take 1 tablet by mouth daily. 50 mg Quantity: 30 tablet Refills: 2 nicotine 14 mg/24 hr Commonly known as: NICODERM CQ Place 1 patch onto the skin daily. 1 patch Quantity: 28 patch Refills: 0 pantoprazole 40 mg tablet Commonly known as: PROTONIX Take 1 tablet by mouth daily. 40 mg Quantity: 30 tablet Refills: 2 Continued medications with new dosing Dose Details atorvastatin 80 mg tablet Commonly known as: LIPITOR Take 1 tablet by mouth daily. What changed: - medication strength - dose 80 mg Quantity: 30 tablet Refills: 2 Continued medications, unchanged Dose Details ALEVE 220 mg Cap Take 440 mg by mouth as needed. For back pain. Generic drug: naproxen sodium 440 mg Refills: 0 aspirin 81 mg EC tablet Take 81 mg by mouth daily. 81 mg Refills: 0 COMBIVENT 18-103 mcg/actuation inhaler 2 Puff(s), Inh, [...] by mouth daily. 10 mg Refills: 0 nitroGLYcerin 0.4 mg SL tablet Commonly known as: NITROSTAT Place 1 tablet under the tongue every 5 minutes as needed. 0.4 mg Quantity: 25 tablet Refills: 12 salmeterol 50 mcg/dose diskus inhaler Commonly known as: SEREVENT Inhale 1 puff into the lungs 2 times daily. 1 puff Refills: 0 STOPPED Medications omeprazole 20 mg capsule Commonly known as: PRILOSEC SYMBICORT 80-4.5 mcg/actuation Hfaa Generic drug: Budesonide-Formoterol Smoking Status at Discharge: History Smoking status ??? Current Every Day Smoker -- 1.0 packs/day Smokeless tobacco ??? Not on file Comment: ill give it a try Instructions Given to Patient at Discharge: Provider Instructions None General Instructions Anti-coagulation follow up: n/a Call your doctor if: Chest pain, shortness of breath, pain or swelling in legs occurs. If you have non-emergent questions between now and the time of your follow up appointments: During 8am-5pm Wednesday through Wednesday call [phone] to speak with a nurse in the cardiology clinic All other times call [phone] and ask to speak to the tankage grinder operator cotton feeder. Return to work: Retired Driving: No driving for 48 hours after catheterization. Follow up Appointments: PCP EDIN MESSINA MD September 20, 2013 at 2:[address] Winn [facility] [place] October 16, 2013 at 9:20 am Home oxygen therapy: N/A Arrangements for VNA/home care: none Future Appointments and Orders Future Appointments: Provider: Department: Dept Phone: Center: 10/09/2013 1:30 PM Mary Ewing T Vascular Surgery [phone] [facility] 10/09/2013 3:00 PM Yvonne Wing APRN Vascular Surgery [phone] [facility] 10/16/2013 9:30 AM Lauri Winn Jr., MD [facility] [phone] None Discharge References/Attachments None Anitha Carlos APRN 09/13/2013 * Consult Note - Amy Tran RN - 09/13/2013 9:34 AM EDT Cardiac Rehabilitation Inpatient Evaluation Primary Cardiac Diagnosis: Angina, pCI Cardiac Risk Factors: Smoking: yes Overweight: no Hyperlipidemia: yes Sedentary: yes HTN: yes Family history: unknown DM: no Stress: no Patient Education: Reviewed cardiac cath findings, implications of coronary artery disease, managing angina and risk factor modification. Mr. Tillman is retired. He has done some intermittent walking with his this last year but nothing consistent. Given parameters for home exercise. He is very motivated to quit smoking. He went from 3 ppd to 10 cigs/day last year. He attended group and individual smoking cessation counseling. He said he feels guilty when he lights up. His wifequit smoking 2 years ago and is very supportive. He is now wearing a nicotine patch and feels like it is working. He has the smoking cessation packet. [facility]: [facility] Activity Summary: By discharge, patient will be able to perform self care, walk 5-7 minutes and go up and down stairs without signs or symptoms of ischemia. Date /Initials Baseline Response Symptoms/Comments 09/13 Activity HR 87 107 Ping ambulation well, no complaints Walk, stairs BP 134/78 152/72 ~8 min O2 Sat 96% 96% ECG SR SR * Plan of Care - Gabby Giles RN - 09/12/2013 1:30 PM EDT Immediately after returning from cath recovery patient reported 1/10 chest pain. Anitha Carlos, DEVANTE updated. One SL nitro administered (please see MAR for time) with relief of discomfort. Plan to continue to monitor patient, patient verbalizes that he will alert nurse via call escobar if the pain returns. Continuing to monitor. * Miscellaneous - Provider, Scanning - 09/11/2013 10:46 PM EDT * Plan of Care - Mare Fallon RN - 09/11/2013 8:11 PM EDT 2005: pt c/o 2/0 chest discomfort. EKG done. 2 L O2 applied. SL nitro x 1 given with good effect. Patient is now pain free. Please see doc flow for vitals. Will continue to monitor. documented in this encounter Plan of Treatment Upcoming Encounters Date Type Department Care Team (Late st Contact Info) Description 01/10/2024 7:45 AM EDT Appointment Hematology [place] [address] 01/21/2024 10:[address] Scan at [facility] [place] [address] Heber Phillips MD [facility] HEMATOLOGY/[place] [address] 03/28/2024 10:00 AM EDT Office Visit Hematology/Oncology at [address] [phone] Heber Phillips MD [facility] HEMATOLOGY/ONCOLOGY [place] [address] Isabella Baker APRN [facility] [place] [address] Scheduled Referrals Name Type Priority Associated Diagnoses Orde r Schedule Referral to Cardiac Rehab Outpatient Referral Routine Chest pain Ordered: 09/13/2013 documented as of this encounter Procedures Procedure Name Priority Date/Time Associated Diagnosis Comments BIOLOGY ADJUNCT INSTRUCTOR SCAN 09/14/2013 9:44 AM EDT CARDIAC CATH SCAN 09/14/2013 9:4 4 AM EDT MISCELLANEOUS LAB REQUEST Timed 09/13/2013 9:50 AM EDT EKG 12-LEAD Routine 09/13/2013 7:14 AM EDT Chest pain BMP W/FASTING GLUCOSE Routine 09/13/2013 4:13 AM EDT SCAN, PERIPHERAL BLOOD Routine 4 4:13 AM EDT DIFFERENTIAL, AUTOMATED Routine 09/14/19 14 4:13 AM EDT CARDIAC ENZYMES ([facility]) Routine 09/13/2013 4:13 AM EDT CBC (WITH DIFF) Routine 09/13/2013 4:13 AM EDT EKG 12-LEAD Routine 09/12/2013 11:17 AM EDT Chest pain EKG 12-LEAD Routine 09/12/2013 10:33 AM EDT Chest pain CARDIAC CATHETERIZATION Routine 09/13/19 14 10:16 AM EDT CARDIAC ENZYMES ([facility]) Routine 09/12/2013 10:05 AM EDT EKG 12-LEAD STAT 09/12/2013 7:41 AM EDT Chest pain EKG 12-LEAD Routine 09/12/2013 5:04 AM EDT Chest pain BMP W/FASTING GLUCOSE Routine 09/12/2013 4:30 AM EDT DIFFERENTIAL, MANUAL Routine 09/12/2013 4:30 AM EDT CK-MB STUDY Routine 09/12/2013 4:30 AM EDT CARDIAC ENZYMES ([facility]) Routine 09/12/2013 4:30 AM EDT APTT Timed 09/12/2013 4:30 AM EDT CBC (WITH DIFF) Routine 09/12/2013 4:30 AM EDT TSH Routine 09/12/2013 4:30 AM EDT LDL CHOLESTEROL, DIRECT Routine 09/13/19 14 4:30 AM EDT HEMOGLOBIN A1C Routine 09/12/2013 4:30 AM EDT LIPID PANEL (REFLEX DIRECT LDL) Routine 09/12/2013 4:30 AM EDT CARDIAC ENZYMES ([facility]) STAT 09/11/2013 10:00 PM EDT APTT Timed 09/11/2013 10:00 PM EDT EKG 12-LEAD STAT 09/11/2013 8:00 PM EDT Chest pain ECHOCARDIOGRAM TRANSTHORACIC Routine 09/11/2013 6:06 PM EDT Chest pain BMP W/FASTING GLUCOSE STAT 09/11/2013 3:40 PM EDT SCAN, PERIPHERAL BLOOD STAT 4 3:40 PM EDT DIFFERENTIAL, AUTOMATED STAT 09/12/19 14 3:40 PM EDT CARDIAC ENZYMES ([facility]) STAT 09/11/2013 3:40 PM EDT APTT STAT 09/11/2013 3:40 PM EDT PROTHROMBIN TIME STAT 09/11/2013 3:40 PM EDT CBC (WITH DIFF) STAT 09/11/2013 3:40 PM EDT EKG 12-LEAD STAT 09/11/2013 3:12 PM EDT Chest pain documented in this encounter Results * SCAN DOC: CARDIAC CATH (09/14/2013 9:44 AM EDT) Anatomical Region Laterality Modality Other Narrative 09/14/2013 9:47 AM EDT Procedure Note Provider, Scanning - 09/14/2013 9:44 AM EDT Scanning Provider MEDIA MGR SCAN EXT O RDR/RSLT * SCAN DOC: BIOLOGY ADJUNCT INSTRUCTOR (09/14/2013 9:44 AM EDT) Anatomical Region Laterality Modality Other Narrative 09/14/2013 9:47 AM EDT Procedure Note Provider, Scanning - 09/14/2013 9:44 AM EDT Scanning Provider MEDIA MGR SCAN EXT O RDR/RSLT * Miscellaneous Lab request (09/13/2013 9:50 AM EDT) Pathologist [facility] Lab Result Request received in lab. CERNER MILLENNIUM Blood specimen (specimen) 09/13/2013 9:50 AM EDT 09/13/2013 10:21 AM EDT Stevo Mccall MD HEMATOLOGY ORDERABLE S Performing Organization Address [facility] Co de Phone Number BRYN DOYLEIUM * EKG 12 Lead (09/13/2013 7:14 AM EDT) Ventricular rate 84 BPM MUSE SYSTEM Atrial Rate 84 BPM MUSE SYSTEM P-R Interval 158 ms MUSE SYSTEM QRS Duration 74 ms MUSE SYSTEM Q-T Interval 384 ms MUSE SYSTEM QTC Calculated (Bezet) 453 ms MUSE SYSTEM Calculated P [place] 76 degrees MUSE SYSTEM Calculated R [place] 71 degrees MUSE SYSTEM Calculated T [place] 77 degrees MUSE SYSTEM INTERPRETATION Normal sinus rhythm Borderline criteria for Left atrial enlargement When compared with ECG of 12-SEP-2013 11:17, No significant change was found Confirmed by MD MESFIN, STEVO ([id number]) on 09/13/2013 1:31:57 PM MUSE SYSTEM 09/13/2013 7:14 AM EDT 09/13/2013 1:31 PM EDT Stevo Mccall MD ECG ORDERABLES Performing Organization Address [facility] de Phone Number MUSE SYSTEM * (ABNORMAL) Differential, Automated (09/13/2013 4:13 AM EDT) Neutrophils % 77.1(H) 34.0 - 71.0 % CERNER MILLENNIUM Neutr Abs (ANC) 16.47(H) 1.50 - 6.30 x10(3)/mc L CERNER MILLENNIUM Lymphocytes % 14.1(L) 19.0 - 53.0 % CERNER MILLENNIUM Lymphocytes Abs 3.0 1.0 - 3.6 x10(3)/mc L CERNER MILLENNIUM Monocytes % 7.8 4.0 - 13.0 % CERNER MILLENNIUM Monocyte Abs 1.7(H) 0.2 - 1.0 x10(3)/mc L CERNER MILLENNIUM Eosinophils % 0.3 0.0 - 7.0 % CERNER MILLENNIUM Eosinophils Abs 0.1 0.0 - 0.5 x10(3)/mc L CERNER MILLENNIUM Basophils % 0.1 0.0 - 2.0 % CERNER MILLENNIUM Basophils Abs 0.0 0.0 - 0.2 x10(3)/mc L CERNER MILLENNIUM Immature Gran % 0.60 0.00 - 0.66 % CERNER MILLENNIUM Comment: Immature granulocytes(IG's)percentage and absolute count will include metamyelocytes, myelocytes, and promyelocytes. Blood smears from CBCs yielding IG's will be scanned manually for concordance. If this scan disagrees with the automated IG or if promyelocytes are noted, a manual differential will be performed. Suri Gran Abs 0.12(H) 0.00 - 0.05 x10(3)/mc L CERNER MILLENNIUM Blood specimen (specimen) 09/13/2013 4:13 AM EDT 09/13/2013 4:18 AM EDT Stevo Mccall MD HEMATOLOGY ORDERABLE S Performing Organization Address City/[facility] Co de Phone Number BRYN HSIEHENNIUM * Scan, Peripheral Blood (09/13/2013 4:13 AM EDT) Plat Estimate Increased CERNER MILLENNIUM RBC Morphology Normal CERNE R MILLENNIUM Blood specimen (specimen) 09/13/2013 4:13 AM EDT 09/13/2013 4:18 AM EDT Narrative Resulting Agency Comment Spec In Lab Stevo Mccall MD HEMATOLOGY ORDERABLE S CERNER МАРИЯENNIUM * (ABNORMAL) BMP w/fasting Glucose (09/13/2013 4:13 AM EDT) Glucose Fasting 116(H) 65 - 99 mg/dL CERNER MILLENNIUM Comment: [...] of Diabetes Mellitus, Position Statement from the [place] Diabetes Association. ??Diabetes Care, Volume 33, Supplement 1, Jun 2009 BUN 19 10 - 20 mg/dL CERNER MILLENNIUM Creatinine 0.89 0.80 - 1.50 mg/dL CERNER MILLENNIUM Comment: Please note that the pediatric reference intervals supplied above were not validated at [facility]. Results from pediatric patients should be interpreted in conjunction to the patient's age, height and muscle mass. Sodium 138 135 - 145 mmol/L CERNER MILLENNIUM Potassium 3.8 3.5 - 5.0 mmol/L CERNER MILLENNIUM Comment: Please note: ??Patients with WBC >100,000 may have falsely elevated Potassium levels. ??For accurate Potassium quantification in these patients send serum separator tube (gold top) for subsequent determinations. ??Contact the Clinical Chemistry Laboratory if there are any questions. Chloride 106 98 - 107 mmol/L CERNER MILLENNIUM CO2 25 22 - 31 mmol/L CERNER MILLENNIUM Anion Gap 7 5 - 15 mmol/L CERNER MILLENNIUM Calcium 8.7 8.5 - 10.5 mg/dL CERNER MILLENNIUM Estimated [...] internet browser. http://www.nkdep.nih.gov/lab-evaluation.shtml http://www.kidney.org/professionals/ Blood specimen (specimen) 09/13/2013 4:13 AM EDT 09/13/2013 4:18 AM EDT Narrative Resulting Agency Comment Spec In Lab Stevo Mccall MD CHEMISTRY ORDERABLES Performing Organization Address City/[facility]/ZIP Co de Phone Number CERNER MILLENNIUM * (ABNORMAL) CBC (with Diff) (09/13/2013 4:13 AM EDT) WBC 21.4(H) 4.0 - 10.0 x10(3)/mcL CERNER MILLENNIUM RBC 4.55(L) 4.63 - 6.08 x10(6)/mcL CERNER MILLENNIUM Hemoglobin 13.6(L) 13.7 - 17.5 gm/dL CERNER MILLENNIUM Hematocrit 40.4 40.0 - 51.0 % CERNER MILLENNIUM MCV 88.8 79.0 - 92.0 fL CERNER MILLENNIUM MCH 29.9 25.6 - 32.2 pg CERNER MILLENNIUM MCHC 33.7 32.0 - 36.5 gm/dL CERNER MILLENNIUM Platelets 382(H) 145 - 370 x10(3)/mcL CERNER MILLENNIUM RDWSD 46.8(H) 35.0 - 46.0 fL CERNER MILLENNIUM RDWCV 14.5(H) 10.9 - 14.4 % CERNER MILLENNIUM MPV 9.7 9.0 - 12.0 fL CERNER MILLENNIUM Blood specimen (specimen) 09/13/2013 4:13 AM EDT 09/13/2013 4:18 AM EDT Narrative Resulting Agency Comment Spec In Lab Stevo Mccall MD HEMATOLOGY ORDERABLE S Performing Organization Address City/[facility]/ZIP Co de Phone Number CERNER MILLENNIUM * (ABNORMAL) Cardiac Enzymes (09/13/2013 4:13 AM EDT) Troponin-T 1.05(H) <=0.03 ng/mL CERNER MILLENNIUM Comment: 0.03 ng/mL: Represents the 99th percentile upper reference limit for normals. >0.03 ng/mL: Elevated cardiac troponin T level indicative of myocardial damage. Diagnosis of acute, evolving or recent [place] requires a typical rise and gradual fall [...] consensus document of the Joint Society of Cardiology/[place] College [employer] Cardiology Committee for the redefinition of myocardial infarction. ??Journal of the [place] College of Cardiology 2000; 36: 959-969] CK, Total 340(H) 0 - 200 unit/L CERNER trend.lyENNIUM Blood specimen (specimen) 09/13/2013 4:13 AM EDT 09/13/2013 4:18 AM EDT Narrative Resulting Agency Comment Spec In Lab Stevo Mccall MD CHEMISTRY ORDERABLES Performing Organization Address City/[facility] Co de Phone Number [employer] * EKG 12 Lead (09/12/2013 11:17 AM EDT) Ventricular rate 96 BPM MUSE SYSTEM Atrial Rate 96 BPM MUSE SYSTEM P-R Interval 154 ms MUSE SYSTEM QRS Duration 84 ms MUSE SYSTEM Q-T Interval 374 ms MUSE SYSTEM QTC Calculated (Bezet) 472 ms MUSE SYSTEM Calculated P [place] 78 degrees MUSE SYSTEM Calculated R [place] 74 degrees MUSE SYSTEM Calculated T [place] 89 degrees MUSE SYSTEM INTERPRETATION Normal sinus rhythm Septal infarct , age undetermined Abnormal ECG When compared with ECG of 12-SEP-2013 10:33, No significant change was found Confirmed by PRIMO, ??BRITTA HIGUERA ([id number]) on 09/12/2013 12:26:08 PM MUSE SYSTEM 09/12/2013 11:1 7 AM EDT 09/12/2013 12:26 PM EDT Stevo Mccall MD ECG ORDERABLES Performing Organization Address City/[facility]/ZIP Co de Phone Number MUSE SYSTEM * EKG 12 Lead (09/12/2013 10:33 AM EDT) Pathologist [facility] Ventricular rate 92 BPM MUSE SYSTEM Atrial Rate 92 BPM MUSE SYSTEM P-R Interval 164 ms MUSE SYSTEM QRS Duration 74 ms MUSE SYSTEM Q-T Interval 364 ms MUSE SYSTEM QTC Calculated (Bezet) 450 ms MUSE SYSTEM Calculated P [place] 77 degrees MUSE SYSTEM Calculated R [place] 75 degrees MUSE SYSTEM Calculated T [place] 85 degrees MUSE SYSTEM INTERPRETATION Normal sinus rhythm Normal ECG When compared with ECG of 12-SEP-2013 07:41, No significant change was found Confirmed by PRIMO, ??BRITTA HIGUERA ([id number]) on 09/12/2013 11:06:31 AM MUSE SYSTEM 09/12/2013 10:3 3 AM EDT 09/12/2013 11:06 AM EDT Stevo Mccall MD ECG ORDERABLES MUSE SYSTEM * Cardiac Catheterization (09/12/2013 10:16 AM EDT) Anatomical Region Laterality Modality Other Narrative 09/13/2013 4:00 PM EDT Procedure Note Provider, Scanning - 09/12/2013 10:40 AM EDT Transcriptions Provider, Scanning - 09/13/2013 4:00 PM EDT Stevo Mccall MD CARDIAC CATH ORDERAB LES * Cardiac Enzymes (09/12/2013 10:05 AM EDT) Pathologist [facility] Troponin-T <0.03 <=0.03 ng/mL [facility] Comment: 0.03 ng/mL: Represents the 99th percentile upper reference limit for normals. >0.03 ng/mL: Elevated cardiac troponin T level indicative of myocardial damage. Diagnosis of acute, evolving or recent [place] requires a typical rise and gradual fall [...] consensus document of the Joint Society of Cardiology/[place] [employer] Cardiology Committee for the redefinition of myocardial infarction. ??Journal of the [place] College of Cardiology 2000; 36: 959-969] CK, Total 56 0 - 200 unit/L CERRENAN HSIEHENNIUM Blood specimen (specimen) 09/12/2013 10:05 AM EDT 09/12/2013 10:17 AM EDT Narrative Resulting Agency Comment Spec In Lab Stevo cMcall MD CHEMISTRY ORDERABLES Performing Organization Address [facility] de Phone Number BRYN DOYLEThe [employer] * EKG 12 Lead (09/12/2013 7:41 AM EDT) Ventricular rate 78 BPM MUSE SYSTEM Atrial Rate 78 BPM MUSE SYSTEM P-R Interval 166 ms MUSE SYSTEM QRS Duration 76 ms MUSE SYSTEM Q-T Interval 394 ms MUSE SYSTEM QTC Calculated (Bezet) 449 ms MUSE SYSTEM Calculated P [place] 77 degrees MUSE SYSTEM Calculated R [place] 78 degrees MUSE SYSTEM Calculated T [place] 79 degrees MUSE SYSTEM INTERPRETATION Normal sinus rhythm Cannot rule out Septal infarct , age undetermined When compared with ECG of 12-SEP-2013 05:04, (unconfirmed) No significant change was found Confirmed by PRIMO, ??BRITTA HIGUERA ([id number]) on 09/12/2013 11:06:23 AM MUSE SYSTEM 09/12/2013 7:41 AM EDT 09/12/2013 11:06 AM EDT Stevo Mccall MD ECG ORDERABLES Performing Organization Address [facility] Co de Phone Number MUSE SYSTEM * EKG 12 Lead (09/12/2013 5:04 AM EDT) Ventricular rate 83 BPM MUSE SYSTEM Atrial Rate 83 BPM MUSE SYSTEM P-R Interval 162 ms MUSE SYSTEM QRS Duration 84 ms MUSE SYSTEM Q-T Interval 404 ms MUSE SYSTEM QTC Calculated (Bezet) 474 ms MUSE SYSTEM Calculated P [place] 79 degrees MUSE SYSTEM Calculated R [place] 78 degrees MUSE SYSTEM Calculated T [place] 84 degrees MUSE SYSTEM INTERPRETATION Normal sinus rhythm Septal infarct (cited on or before 11-SEP-2013) When compared with ECG of 11-SEP-2013 20:00, No significant change was found Confirmed by PRIMO, ??BRITTA HIGUERA ([id number]) on 09/12/2013 11:05:45 AM MUSE SYSTEM 09/12/2013 5:04 AM EDT 09/12/2013 11:05 AM EDT Stevo Mccall MD ECG ORDERABLES MUSE SYSTEM * CK-MB Study (09/12/2013 4:30 AM EDT) CK, Total 63 0 - 200 unit/L CERNER MILLENNIUM CK-MB 1.9 0.0 - 5.0 mcg/L CERNER MILLENNIUM CKMB Index 3.0 0.0 - 5.0 mcg/u CERNER MILLENNIUM Blood specimen (specimen) 09/12/2013 4:30 AM EDT 09/12/2013 8:28 AM EDT Narrative Resulting Agency Comment Spec In Lab Stevo Mccall MD CHEMISTRY ORDERABLES Performing Organization Address [facility] de Phone Number CERNER MILLENNIUM * (ABNORMAL) Differential, Manual (09/12/2013 4:30 AM EDT) Neutrophil % 87(H) 34 - 71 % CERNER MILLENNIUM Band % 2 0 - 12 % CERNER MILLENNIUM Lymphocyte % 9(L) 19 - 53 % CERNER MILLENNIUM Monocyte % 1(L) 4 - 13 % CERNER MILLENNIUM Eosinophil % 1 0 - 7 % CERNER MILLENNIUM Neutrophil Abs 11.3(H) 1.5 - 6.3 x10(3)/mcL CERNER MILLENNIUM Band Abs 0.3 0.2 - 0.6 x10(3)/mcL CERNER MILLENNIUM Neutr Abs (ANC) 11.55(H) 1.50 - 6.30 x10(3)/mcL CERNER MILLENNIUM Lymphocyte Abs 1.2 1.0 - 3.6 x10(3)/mcL CERNER MILLENNIUM Monocyte Abs 0.1(L) 0.2 - 1.0 x10(3)/mcL CERNER MILLENNIUM Eosinophil Abs 0.1 0.0 - 0.5 x10(3)/mcL CERNER MILLENNIUM Tot Diff Cell Ct 100 CERNER MILLENNIUM Plat Estimate Normal CERNER MILLENNIUM RBC Morphology Normal CERNE R MILLENNIUM Blood specimen (specimen) 09/12/2013 4:30 AM EDT 09/12/2013 4:41 AM EDT Narrative Resulting Agency Comment Spec In Lab Stevo Mccall MD HEMATOLOGY ORDERABLE S BRYN DOYLEIUM * Cardiac Enzymes (09/12/2013 4:30 AM EDT) Troponin-T <0.03 <=0.03 ng/mL CERNER MILLENNIUM Comment: 0.03 ng/mL: Represents the 99th percentile upper reference limit for normals. >0.03 ng/mL: Elevated cardiac troponin T level indicative of myocardial damage. Diagnosis of acute, evolving or recent [place] requires a typical rise and gradual fall [...] consensus document of the Joint Society of Cardiology/[place] [employer] Cardiology Committee for the redefinition of myocardial infarction. ??Journal of the [place] College of Cardiology 2000; 36: 959-969] CK, Total 60 0 - 200 unit/L CERNER MILLENNIUM Blood specimen (specimen) 09/12/2013 4:30 AM EDT 09/12/2013 4:42 AM EDT Narrative Resulting Agency Comment Spec In Lab Stevo Mccall MD CHEMISTRY ORDERABLES Performing Organization Address City/[facility]/ZIP Co de Phone Number BRYN DOYLEIUM * (ABNORMAL) BMP w/fasting Glucose (09/12/2013 4:30 AM EDT) [facility] Glucose Fasting 164(H) 65 - 99 mg/dL CERNER MILLENNIUM Comment: [...] of Diabetes Mellitus, Position Statement from the [place] Diabetes Association. ??Diabetes Care, Volume 33, Supplement 1, Jun 2009 BUN 28(H) 10 - 20 mg/dL CERNER MILLENNIUM Creatinine 0.96 0.80 - 1.50 mg/dL CERNER MILLENNIUM Comment: Please note that the pediatric reference intervals supplied above were not validated at [facility]. Results from pediatric patients should be interpreted in conjunction to the patient's age, height and muscle mass. Sodium 135 135 - 145 mmol/L CERNER MILLENNIUM Potassium 4.0 3.5 - 5.0 mmol/L CERNER MILLENNIUM Comment: Please note: ??Patients with WBC >100,000 may have falsely elevated Potassium levels. ??For accurate Potassium quantification in these patients send serum separator tube (gold top) for subsequent determinations. ??Contact the Clinical Chemistry Laboratory if there are any questions. Chloride 101 98 - 107 mmol/L CERNER MILLENNIUM CO2 22 22 - 31 mmol/L CERNER MILLENNIUM Anion [...] internet browser. http://www.nkdep.nih.gov/lab-evaluation.shtml http://www.kidney.org/professionals/ Blood specimen (specimen) 09/12/2013 4:30 AM EDT 09/12/2013 4:41 AM EDT Narrative Resulting Agency Comment Spec In Lab Stevo Mccall MD CHEMISTRY ORDERABLES Performing Organization Address [facility] Co de Phone Number CERNER MILLENNIUM * (ABNORMAL) CBC (with Diff) (09/12/2013 4:30 AM EDT) WBC 13.0(H) 4.0 - 10.0 x10(3)/mcL CERNER MILLENNIUM RBC 4.90 4.63 - 6.08 x10(6)/mcL CERNER MILLENNIUM Hemoglobin 14.5 13.7 - 17.5 gm/dL CERNER MILLENNIUM Hematocrit 43.0 40.0 - 51.0 % CERNER MILLENNIUM MCV 87.8 79.0 - 92.0 fL CERNER MILLENNIUM MCH 29.6 25.6 - 32.2 pg CERNER MILLENNIUM MCHC 33.7 32.0 - 36.5 gm/dL CERNER MILLENNIUM Platelets 398(H) 145 - 370 x10(3)/mcL CERNER MILLENNIUM RDWSD 45.1 35.0 - 46.0 fL CERNER MILLENNIUM RDWCV 14.1 10.9 - 14.4 % CERNER MILLENNIUM MPV 9.9 9.0 - 12.0 fL CERNER MILLENNIUM Blood specimen (specimen) 09/12/2013 4:30 AM EDT 09/12/2013 4:41 AM EDT Narrative Resulting Agency Comment Spec In Lab Stevo Mccall MD HEMATOLOGY ORDERABLE S Performing Organization Address City/[facility]/ZIP Co de Phone Number CERNER MILLENNIUM * (ABNORMAL) APTT (09/12/2013 4:30 AM EDT) PTT 104(H) 25 - 35 sec CERRENAN DOYLEIUM Comment: Recommended therapeutic PTT range for full dose unfractionated heparin is 80-114 seconds. Blood specimen (specimen) 09/12/2013 4:30 AM EDT 09/12/2013 4:41 AM EDT Narrative Resulting Agency Comment Spec In Lab Stevo Mccall MD HEMATOLOGY ORDERABLE S Performing Organization Address [facility] de Phone Number BRYN SANCHEZ * LDL Cholesterol, Direct (09/12/2013 4:30 AM EDT) LDL Chol Direct 85 <=99 mg/dL CER NER [facility] Comment: The National Cholesterol Education Program (NCEP) has set the following guidelines for LDL Cholesterol: Reference range: ?? Optimal: ?<100 mg/dL ?? Near Optimal/Above Optimal: ?? 100-129 mg/dL ?? Borderline high: ?130-159 mg/dL ?? High: ? 160-189 mg/dL ?? Very high: ?>hc=977 mg/dL DAO 2001: 285(19):7469-0386 Blood specimen (specimen) 09/12/2013 4:30 AM EDT 09/12/2013 4:41 AM EDT Narrative Resulting Agency Comment Spec In Lab Stevo Mccall MD CHEMISTRY ORDERABLES Performing Organization Address [facility] de Phone Number BRYN SANCHEZ * (ABNORMAL) Hemoglobin A1c (09/12/2013 4:30 AM EDT) Hemoglobin A1C 6.1(H) <=5.6 % [facility] МАРИЯ[facility]IAIUM Comment: As of 2013 the methodology for Hemoglobin A1c testing has changed. This change is accompanied by a new interpretive statement and flags. Please review the new interpretive statement and contact Dr. Huston or Dr. Landa with questions. Reference Range: 4.3 ? 5.6% 5.7 ? 6.4% - Increased Risk of Developing Diabetes Mellitus 6.5% - Consistent with diagnosis of Diabetes Mellitus In the absence of hyperglycemia (i.e. plasma glucose > 200 mg/dL) or classic symptoms of hyperglycemia a repeat measurement of HbA1c should be performed on a separate sample to confirm the diagnosis. Diagnosis and Classification of Diabetes Mellitus, Diabetes Care 2013; 36: Suppl. 1, S67-74 Est Avg Gluc 128 mg/dL [facility] Comment: eAG equivalents for HbA1c percentages: HbA1c(%) ?eAG(mg/dL) 6.0 ?126 6.5 ?140 7.0 ?154 7.5 ?169 8.0 ?183 8.5 ?197 9.0 ?212 9.5 ?226 10.0 ? 240 Limitations: The eAG calculation has not been validated on women, individuals below 18 years old and above 70 years old, and individuals with hemoglobinopathies. Additional resources are available on the ADA website: ??http://professional.diabetes.org/glucosecalculator.aspx Fahad PENA, Marcello J, Veronique R, et al. ??Translating the A1C assay into estimated average glucose values. ??Diabetes Care 2008:31(8):2048-0373. Blood specimen (specimen) 09/12/2013 4:30 AM EDT 09/12/2013 4:41 AM EDT Narrative Resulting Agency Comment Spec In Lab Stevo Mccall MD CHEMISTRY ORDERABLES BRYN SANCHEZ * (ABNORMAL) Lipid panel (fasting) (09/12/2013 4:30 AM EDT) Chol, Total 138 <=199 mg/dL [facility] Comment: Recommendations of the NCEP Adult Treatment Panel for the following risk cutoff thresholds for the [place] population: Desirable: <200 mg/dL Borderline High: 200-239 mg/dL High: > or = 240 mg/dL Triglycerides 59 <=149 mg/dL [facility] Comment: Reference Range: Normal triglycerides: ??<150 mg/dL Borderline high: ??150-199 mg/dL High: ??200-499 mg/dL Very high: ??>ff=932 mg/dL DAO 2001; 285(19):8974-5384 HDL 39(L) >=40 mg/dL BRYN [facility] Comment: Reference range: ??Low HDL: ?? < 40 mg/dL ??Normal: ?40-60 mg/dL ??Desirable: > 60 mg/dL DAO 2001; 285(19):3248-6008 LDL Cholesterol 87 <=99 mg/dL [facility] Comment: Reference range: ?? Optimal: ?<100 mg/dL ?? Near Optimal/Above Optimal: ?? 100-129 mg/dL ?? Borderline high: ?130-159 mg/dL ?? High: ? 160-189 mg/dL ?? Very high: ?>rt=692 mg/dL DAO 2001: 285(19):7515-6056 Chol/HDL Ratio 3.5 ratio KATHY SANCHEZ Comment: A Cholesterol to HDL ratio below 4:1 is desirable. ??Studies suggest that increased CAD risk occurs at ratios above 5 for females and above 6 for men. ? [place] Heart Association ??(http://www.americanheart.org) ? Jeri Int Med, 1994; 121:641 ? AM J Med, 1998; 105(1A):48S Blood specimen (specimen) 09/12/2013 4:30 AM EDT 09/12/2013 4:41 AM EDT Narrative Resulting Agency Comment Spec In Lab Stevo Mccall MD CHEMISTRY ORDERABLES Performing Organization Address [facility] de Phone Number BRYN DOYLEIUM * TSH (09/12/2013 4:30 AM EDT) TSH 0.54 0.27 - 4.20 mcIU/mL CERNER МАРИЯENNIUM Blood specimen (specimen) 09/12/2013 4:30 AM EDT 09/12/2013 4:41 AM EDT Narrative Resulting Agency Comment Spec In Lab Stevo Mccall MD CHEMISTRY ORDERABLES Performing Organization Address [facility] de Phone Number CERRENAN HSIEHENNIUM * Cardiac Enzymes (09/11/2013 10:00 PM EDT) Troponin-T <0.03 <=0.03 ng/mL CERNER МАРИЯENNIUM Comment: 0.03 ng/mL: Represents the 99th percentile upper reference limit for normals. >0.03 ng/mL: Elevated cardiac troponin T level indicative of myocardial damage. Diagnosis of acute, evolving or recent [place] requires a typical rise and gradual fall [...] consensus document of the Joint Society of Cardiology/[place] College of Cardiology Committee for the redefinition of myocardial infarction. ??Journal of the [place] College [employer] 2000; 36: 959-969] CK, Total 66 0 - 200 unit/L CERNER МАРИЯENNIUM Blood specimen (specimen) 09/11/2013 10:00 PM EDT 09/11/2013 10:05 PM EDT Narrative Resulting Agency Comment Spec In Lab Stevo Mccall MD CHEMISTRY ORDERABLES Performing Organization Address [facility] de Phone Number BRYN SANCHEZ * (ABNORMAL) APTT (09/11/2013 10:00 PM EDT) PTT 58(H) 25 - 35 sec CERNER МАРИЯENNIUM Comment: Recommended therapeutic PTT range for full dose unfractionated heparin is 80-114 seconds. Blood specimen (specimen) 09/11/2013 10:00 PM EDT 09/11/2013 10:05 PM EDT Narrative Resulting Agency Comment Spec In Lab Stevo Mccall MD HEMATOLOGY ORDERABLE S Performing Organization Address [facility] Phone Number [facility] * EKG 12 Lead (09/11/2013 8:00 PM EDT) Ventricular rate 78 BPM MUSE SYSTEM Atrial Rate 78 BPM MUSE SYSTEM P-R Interval 164 ms MUSE SYSTEM QRS Duration 74 ms MUSE SYSTEM Q-T Interval 380 ms MUSE SYSTEM QTC Calculated (Bezet) 433 ms MUSE SYSTEM Calculated P [place] 74 degrees MUSE SYSTEM Calculated R [place] 74 degrees MUSE SYSTEM Calculated T [place] 90 degrees MUSE SYSTEM INTERPRETATION Normal sinus rhythm Septal infarct (cited on or before 11-SEP-2013 ) Abnormal ECG Confirmed by PRIMO, ??BRITTA HIGUERA ([id number]) on 09/12/2013 11:05:39 AM MUSE SYSTEM 09/11/2013 8:00 PM EDT 09/12/2013 11:05 AM EDT Stevo Mccall MD ECG ORDERABLES Performing Organization Address [facility] de Phone Number MUSE SYSTEM * Echocardiogram Transthoracic(Leb) (09/11/2013 6:06 PM EDT) Anatomical Region Laterality Modality Other 09/12/2013 Narrative 09/12/2013 9:23 AM EDT Procedure: ? Transthoracic Echocardiogram Patient: ? TILLMAN BRITTA M ?(Age): 1955(58) Med Rec#: ?[id number] ? Sex: ?M ? [place] [place] Ht / Wt: ??170(cm)/69(kg) Pt. Loc: ? Adult Floor ?BSA: ?1.81 Study Date: ?09/11/2013 ? Pt. Type: Inpatient Tape: ? Referring: Stevo Mccall ??([id number]) Referring: ZARINA Derrick Boat Leverman: Nika Fernandez Interpreting Fellow: Vicente Godwin ??([id number]) Diagnosis:CPT Code(s): ??Echo Full (51867), ??Spectral Doppler (45040), Color Doppler (70460), Indication(s): ??Chest Pain Rhythm: Sinus HR ?BP ?124/67 ?? SUMMARY: 1. Technically limited echo. No prior echo for comparison. 2. The left ventricular chamber size is normal. Left ventricular wall thickness is normal. There is normal global left ventricular systolic function. The visually estimated left ventricular ejection fraction is 60%. There are no left ventricular segmental wall motion abnormalities. 3. The left atrium is normal in size. 4. Right ventricular chamber size, wall thickness, and systolic function are within normal limits. 5. There is no hemodynamically significant valvular disease. 6. See remainder of report for additional findings. FINDINGS: Study Quality ?Technically limited Left Ventricle ?The left ventricular chamber size is normal. ?Left ventricular wall thickness is normal. ?There is normal global left ventricular systolic function. ??Ejection fraction is estimated to be 60%. ?There are no left ventricular segmental wall motion abnormalities. ?Left ventricular diastolic function is normal. ?Doppler assessment is consistent with normal left sided filling pressure. ?A false chord is observed in the left ventricle. Left Atrium ?The left atrium is normal in size. Right Ventricle ?Right ventricular chamber size, wall thickness, and systolic function are within normal limits. Right Atrium ?The right atrium is normal in size. Aortic Valve ?The aortic valve is trileaflet. The leaflets are thin with normal excursion. There is no aortic stenosis or regurgitation present. Mitral Valve ?The mitral valve appears normal in structure and function. Tricuspid Valve ?The tricuspid valve appears normal in structure and function. ?There is trace tricuspid regurgitation present. Pulmonic Valve ?The pulmonic valve appears normal in structure and function. Pericardium ?The pericardium appears normal and there is no evidence of a pericardial effusion. Aorta ?The aortic root is normal in size. ?The ascending aorta is normal in size. Pulmonary Artery ?The main pulmonary artery appears normal. Venous ?The inferior vena cava appears normal in size. ?There is a greater than 50% respiratory change in the inferior vena cava dimension. Misc ?Two-dimensional echo, spectral Doppler and color Doppler performed. Wall Motion: Segment Name ?Rest ? Base-Anteroseptal ?? Normal ? Base-Anterior ? Normal ? Base-Anterolateral ??Normal ? Base-Posterolateral Normal ? Base-Inferior ? Normal ? Base-Inferoseptal ?? Normal ? Mid-Anteroseptal ?Normal ? Mid-Anterior ?Normal ? Mid-Anterolateral ?? Normal ? Mid-Posterolateral ??Normal ? Mid-Inferior ?Normal ? Mid-Inferoseptal ?Normal ? Hardy-Septal ? Normal ? Hardy-Anterior ? Normal ? Hardy-Lateral ?Normal ? Hardy-Inferior ? Normal ? Hardy-Tip ?Normal ? Chambers ?Value ?Units (Range) ? EF ??Bi-p Simp ? 66 ? % (55 to 80) ? IVSd 2D ? 0.8 ?cm ? LVIDd 2D ?4.4 ?cm ? PWd 2D ?0.8 ?cm ? LVIDs 2D ?3.2 ?cm ? LVFS 2D ? 27 ? % ? LA area ? 13 ? cm2 (<21) ? RA area ? 12 ? cm2 (<18) ? Ao root ? 3.2 ?cm (2.1 to 3.6) ? Asc Ao ?3.1 ?cm (2 to 3.5) ? Mitral Valve ?Value ?Units (Range) ? E peak ?0.76 ? m/sec ? E/A ratio ? 1.8 ?ratio ? MVDT ?168 ?msec ? E1 ?0.09 ? m/sec ? E/E1 ?8.4 ?ratio ? Tricuspid/Pulmonic Valves ?Value ?Units (Range) ? RAP ? 3 ?mmHg ? This report has been electronically signed by: Luis Azar MD ? 09/12/2013 09:22:35 Images reviewed and interpretation verified [facility] Procedure Note Luis Azar MD - 09/12/2013 Procedure: Transthoracic Echocardiogram Patient: CHRISTOPHE Roche (Age): 1955(58) Med Rec#: [id number] Sex: M [place] [facility] [place]t / Wt: 170(cm)/69(kg) Pt. Loc: Adult Floor BSA: 1.81 Study Date: 09/11/2013 Pt. Type: Inpatient Tape: Referring: Stevo Mccall ([id number]) Referring: ZARINA Derrick Boat Leverman: Nika Fernandez Interpreting Fellow: Vicente Godwin ([id number]) Diagnosis:CPT Code(s): Echo Full (92197), Spectral Doppler (74690), Color Doppler (09557), Indication(s): Chest Pain Rhythm: Sinus HR BP 124/67 SUMMARY: 1. Technically limited echo. No prior echo for comparison. 2. The left ventricular chamber size is normal. Left ventricular wall thickness is normal. There is normal global left ventricular systolic function. The visually estimated left ventricular ejection fraction is 60%. There are no left ventricular segmental wall motion abnormalities. 3. The left atrium is normal in size. 4. Right ventricular chamber size, wall thickness, and systolic function are within normal limits. 5. There is no hemodynamically significant valvular disease. 6. See remainder of report for additional findings. FINDINGS: Study Quality Technically limited Left Ventricle The left ventricular chamber size is normal. Left ventricular wall thickness is normal. There is normal global left ventricular systolic function. Ejection fraction is estimated to be 60%. There are no left ventricular segmental wall motion abnormalities. Left ventricular diastolic function is normal. Doppler assessment is consistent with normal left sided filling pressure. A false chord is observed in the left ventricle. Left Atrium The left atrium is normal in size. Right Ventricle Right ventricular chamber size, wall thickness, and systolic function are within normal limits. Right Atrium The right atrium is normal in size. Aortic Valve The aortic valve is trileaflet. The leaflets are thin with normal excursion. There is no aortic stenosis or regurgitation present. Mitral Valve The mitral valve appears normal in structure and function. Tricuspid Valve The tricuspid valve appears normal in structure and function. There is trace tricuspid regurgitation present. Pulmonic Valve The pulmonic valve appears normal in structure and function. Pericardium The pericardium appears normal and there is no evidence of a pericardial effusion. Aorta The aortic root is normal in size. The ascending aorta is normal in size. Pulmonary Artery The main pulmonary artery appears normal. Venous The inferior vena cava appears normal in size. There is a greater than 50% respiratory change in the inferior vena cava dimension. Misc Two-dimensional echo, spectral Doppler and color Doppler performed. Wall Motion: Segment Name Rest Base-Anteroseptal Normal Base-Anterior Normal Base-Anterolateral Normal Base-Posterolateral Normal Base-Inferior Normal Base-Inferoseptal Normal Mid-Anteroseptal Normal Mid-Anterior Normal Mid-Anterolateral Normal Mid-Posterolateral Normal Mid-Inferior Normal Mid-Inferoseptal Normal Hardy-Septal Normal Hardy-Anterior Normal Hardy-Lateral Normal Hardy-Inferior Normal Hardy-Tip Normal Chambers Value Units (Range) EF Bi-p Simp 66 % (55 to 80) IVSd 2D 0.8 cm LVIDd 2D 4.4 cm PWd 2D 0.8 cm LVIDs 2D 3.2 cm LVFS 2D 27 % LA area 13 cm2 (<21) RA area 12 cm2 (<18) Ao root 3.2 cm (2.1 to 3.6) Asc Ao 3.1 cm (2 to 3.5) Mitral Valve Value Units (Range) E peak 0.76 m/sec E/A ratio 1.8 ratio MVDT 168 msec E1 0.09 m/sec E/E1 8.4 ratio Tricuspid/Pulmonic Valves Value Units (Range) RAP 3 mmHg This report has been electronically signed by: Luis zAar MD 09/12/2013 09:22:35 Images reviewed and interpretation verified [facility] Stevo Mccall MD ECHO ORDERABLES * (ABNORMAL) Differential, Automated (09/11/2013 3:40 PM EDT) Neutrophils % 64.0 34.0 - 71.0 % CERNER MILLENNIUM Neutr Abs (ANC) 6.96(H) 1.50 - 6.30 x10(3)/mc L CERNER MILLENNIUM Lymphocytes % 24.1 19.0 - 53.0 % CERNER MILLENNIUM Lymphocytes Abs 2.6 1.0 - 3.6 x10(3)/mc L CERNER MILLENNIUM Monocytes % 9.2 4.0 - 13.0 % CERNER MILLENNIUM Monocyte Abs 1.0 0.2 - 1.0 x10(3)/mc L CERNER MILLENNIUM Eosinophils % 1.6 0.0 - 7.0 % CERNER MILLENNIUM Eosinophils Abs 0.2 0.0 - 0.5 x10(3)/mc L CERNER MILLENNIUM Basophils % 0.4 0.0 - 2.0 % CERNER MILLENNIUM Basophils Abs 0.0 0.0 - 0.2 x10(3)/mc L CERNER MILLENNIUM Immature Gran % 0.70(H) 0.00 - 0.66 % CERNER MILLENNIUM Comment: Immature granulocytes(IG's)percentage and absolute count will include metamyelocytes, myelocytes, and promyelocytes. Blood smears from CBCs yielding IG's will be scanned manually for concordance. If this scan disagrees with the automated IG or if promyelocytes are noted, a manual differential will be performed. Suri Gran Abs 0.08(H) 0.00 - 0.05 x10(3)/mc L CERNER MILLENNIUM Blood specimen (specimen) 09/11/2013 3:40 PM EDT 09/11/2013 4:04 PM EDT Stevo Mccall MD HEMATOLOGY ORDERABLE S Performing Organization Address [facility] Co de Phone Number BRYN HSIEHENNIUM * Scan, Peripheral Blood (09/11/2013 3:40 PM EDT) Plat Estimate Increased CERNER МАРИЯENNIUM RBC Morphology Normal CERNE R MILLENNIUM Smudge Cells Present CERRENAN HSIEHENNIUM Blood specimen (specimen) 09/11/2013 3:40 PM EDT 09/11/2013 4:04 PM EDT Narrative Resulting Agency Comment Spec In Lab Stevo Mccall MD HEMATOLOGY ORDERABLE S Performing Organization Address [facility] Co de Phone Number BRYN DOYLEIUM * Cardiac Enzymes (09/11/2013 3:40 PM EDT) Troponin-T <0.03 <=0.03 ng/mL BRYN MILLENNIUM Comment: 0.03 ng/mL: Represents the 99th percentile upper reference limit for normals. >0.03 ng/mL: Elevated cardiac troponin T level indicative of myocardial damage. Diagnosis of acute, evolving or recent IL requires a typical rise and gradual fall [...] consensus document of the [employer] Society [employer]iology/[place] [employer] Committee for the redefinition of myocardial infarction. ??Journal of the [place] [employer] 2000; 36: 959-969] CK, Total 70 0 - 200 unit/L CERNER MILLENNIUM Blood specimen (specimen) 09/11/2013 3:40 PM EDT 09/11/2013 4:04 PM EDT Narrative Resulting Agency Comment Spec In Lab Stevo Mccall MD CHEMISTRY ORDERABLES CERNER MILLENNIUM * (ABNORMAL) CBC (with Diff) (09/11/2013 3:40 PM EDT) WBC 10.9(H) 4.0 - 10.0 x10(3)/mcL CERNER MILLENNIUM RBC 5.05 4.63 - 6.08 x10(6)/mcL CERNER MILLENNIUM Hemoglobin 15.1 13.7 - 17.5 gm/dL CERNER MILLENNIUM Hematocrit 44.4 40.0 - 51.0 % CERNER MILLENNIUM MCV 87.9 79.0 - 92.0 fL CERNER MILLENNIUM MCH 29.9 25.6 - 32.2 pg CERNER MILLENNIUM MCHC 34.0 32.0 - 36.5 gm/dL CERNER MILLENNIUM Platelets 414(H) 145 - 370 x10(3)/mcL CERNER MILLENNIUM RDWSD 45.5 35.0 - 46.0 fL CERNER MILLENNIUM RDWCV 14.3 10.9 - 14.4 % CERNER MILLENNIUM MPV 9.8 9.0 - 12.0 fL CERNER MILLENNIUM Blood specimen (specimen) 09/11/2013 3:40 PM EDT 09/11/2013 4:04 PM EDT Narrative Resulting Agency Comment Spec In Lab Stevo Mccall MD HEMATOLOGY ORDERABLE S BRYN HSIEHENNIUM * (ABNORMAL) APTT (09/11/2013 3:40 PM EDT) PTT 39(H) 25 - 35 sec [facility] Comment: Recommended therapeutic PTT range for full dose unfractionated heparin is 80-114 seconds. Blood specimen (specimen) 09/11/2013 3:40 PM EDT 09/11/2013 4:04 PM EDT Narrative Resulting Agency Comment Spec In Lab Stevo Mccall MD HEMATOLOGY ORDERABLE S Performing Organization Address [facility] Phone Number [facility] * Prothrombin Time (09/11/2013 3:40 PM EDT) PT 12.8 12.0 - 15.0 sec [facility] Comment: [facility] Transfusion Committee Guidelines: INR less than 2.0, PTT less than OR equal to 43.5 seconds, or Fibrinogen greater than or equal to 100 mg/dl indicate adequate procoagulant activity for hemostasis in patients without underlying bleeding disorders. INR 0.9 0.9 - 1.1 [facility] Blood specimen (specimen) 09/11/2013 3:40 PM EDT 09/11/2013 4:04 PM EDT Narrative Resulting Agency Comment Spec In Lab Stevo Mccall MD HEMATOLOGY ORDERABLE S Performing Organization Address [facility] Phone Number [facility] * (ABNORMAL) BMP w/fasting Glucose (09/11/2013 3:40 PM EDT) Glucose Fasting 105(H) 65 - 99 mg/dL [facility] Comment: ?Fasting* Glucose Interpretive Criteria Normal ?65-99 [...] of Diabetes Mellitus, Position Statement from the [place] [employer]. ??Diabetes Care, Volume 33, Supplement 1, Jun 2009 BUN 23(H) 10 - 20 mg/dL CERNER MILLENNIUM Creatinine 1.09 0.80 - 1.50 mg/dL CERNER MILLENNIUM Comment: Please note that the pediatric reference intervals supplied above were not validated at [facility] [place]. Results from pediatric patients should be interpreted in conjunction to the patient's age, height and muscle mass. Sodium 137 135 - 145 mmol/L CERNER MILLENNIUM Potassium 3.7 3.5 - 5.0 mmol/L CERNER MILLENNIUM Comment: Please note: ??Patients with WBC >100,000 may have falsely elevated Potassium levels. ??For accurate Potassium quantification in these patients send serum separator tube (gold top) for subsequent determinations. ??Contact the Clinical Chemistry Laboratory if there are any questions. Chloride 100 98 - 107 mmol/L CERNER MILLENNIUM CO2 27 22 - 31 mmol/L CERNER MILLENNIUM Anion Gap 10 5 - 15 mmol/L CERNER MILLENNIUM Calcium 9.8 8.5 - 10.5 mg/dL CERNER MILLENNIUM Estimated [...] internet browser. http://www.nkdep.nih.gov/lab-evaluation.shtml http://www.kidney.org/professionals/ Blood specimen (specimen) 09/11/2013 3:40 PM EDT 09/11/2013 4:04 PM EDT Narrative Resulting Agency Comment Spec In Lab Stevo Mccall MD CHEMISTRY ORDERABLES BRYN SANCHEZ * EKG 12 Lead (09/11/2013 3:12 PM EDT) Ventricular rate 83 BPM MUSE SYSTEM Atrial Rate 83 BPM MUSE SYSTEM P-R Interval 150 ms MUSE SYSTEM QRS Duration 72 ms MUSE SYSTEM Q-T Interval 366 ms MUSE SYSTEM QTC Calculated (Bezet) 430 ms MUSE SYSTEM Calculated P [place] 75 degrees MUSE SYSTEM Calculated R [place] 76 degrees MUSE SYSTEM Calculated T [place] 91 degrees MUSE SYSTEM INTERPRETATION Normal sinus rhythm Septal infarct , age undetermined Abnormal ECG No previous ECGs available Confirmed by PRIMO, ??BRITTA HIGUERA ([id number]) on 09/12/2013 11:05:22 AM MUSE SYSTEM 09/11/2013 3:12 PM EDT 09/12/2013 11:05 AM EDT Stevo Mccall MD ECG ORDERABLES MUSE SYSTEM documented in this encounter Visit Diagnoses Diagnosis Chest pain- Primary Chest pain, unspecified Chest pain Chest pain, unspecified PVD (peripheral vascular disease) Peripheral vascular disease, unspecified Hypertension Unspecified essential hypertension Hyperlipidemia Other and unspecified hyperlipidemia Carotid stenosis Occlusion and stenosis of carotid artery without mention of cerebral infarction Emphysema/COPD Other emphysema documented in this encounter Administered Medications Inactive Administered Medications - up to 3 most recent administrations Medication Order MAR Action Action Date Dose Rate Site acetaminophen (TYLENOL) tablet 650 mg 650 mg, Oral, EVERY 4 HOURS PRN, Starting on Wed09/11/13 at 1621, Until Wed09/13/13 at 1428, Pain, Headaches, Maximum dose of acetaminophen is 4000 mg from all sources in 24 hours., Routine Given 09/12/2013 4:09 PM EDT 650 mg alum-mag hydroxide-simeth (MAALOX) 200-200-20 mg/5 mL oral suspension 1 dose, Starting on Wed09/12/13 at 1029, Until Wed09/12/13 at 1045, KANIKA DILLON: cabinet override Given 09/12/2013 10:45 AM EDT 10 mLs aspirin EC tablet 81 mg 81 mg, Oral, DAILY, First dose on Wed09/13/13 at 0900, Until Discontinued, Routine Given 09/13/2013 9:00 AM EDT 81 mg atorvastatin (LIPITOR) tablet 80 mg 80 mg, Oral, EVERY EVENING, First dose on Wed09/11/13 at 1700, Until Discontinued, Routine Given 09/12/2013 5:14 PM EDT 80 mg Given 09/11/2013 6:00 PM EDT 80 mg clopidogrel (PLAVIX) tablet 75 mg 75 mg, Oral, DAILY, First dose on Wed09/13/13 at 0900, Until Discontinued, Routine Given 09/13/2013 9:00 AM EDT 75 mg diaZEPam (VALIUM) tablet 5 mg 5 mg, Oral, ONCE, 1 dose, On Wed09/12/13 at 0815, Cath (Day of Procedure), Routine Given 09/12/2013 8:02 AM EDT 5 mg diphenhydrAMINE (BENADRYL) capsule 25 mg 25 mg, Oral, ONCE, 1 dose, On Wed09/12/13 at 0815, Cath (Day of Procedure), Routine Given 09/12/2013 8:02 AM EDT 25 mg fentaNYL 50mcg/mL injection 25 mcg, Intravenous, Administer over 4 Hours, EVERY 15 MIN PRN, Starting on Wed09/12/13 at 1021, Until Wed09/12/13 at 1318, Pain, For sheath removal, May repeat once, while in Cath Recovery Unit, Cath (Recovery-Hospital Unit), Routine Given 09/12/2013 11:55 AM EDT 25 mcg fluticasone-salmeterol (ADVAIR HFA) 115-21 mcg/actuation inhaler 2 puff 2 puff, Inhalation, EVERY 12 HOURS SCHEDULED (2 times per day), First dose on Wed09/11/13 at 2100, Until Discontinued, Rinse mouth after administration Given 09/13/2013 9:00 AM EDT 2 puffs Given 09/12/2013 8:15 PM EDT 2 puffs Given 09/12/2013 1:37 PM EDT 2 puffs heparin (porcine) injection 2,000-4,000 Units 2,000-4,000 Units, Intravenous, BOLUS PER HEPARIN PROTOCOL, Starting on Wed09/11/13 at 1621, Until Wed09/12/13 at 0810, Per Protocol, Adjust to dosing chart, Patient Weight 65-69 kg aPTT less than 60 seconds - 4,000 units aPTT 60-79 seconds - 2,000 units aPTT 80-114 seconds - no bolus Repeat aPTT 6 hours after initiating heparin. Then 6 hours after each dose adjustment. When 2 consecutive aPTT within target range of 80 - 114 seconds, change aPTT to once every 24 hours with A.M. labs while on heparin., RN to order required aPTT - Per Protocol, Routine Given 09/11/2013 10:30 PM EDT 4,000 Units Given 09/11/2013 4:51 PM EDT 4,000 Units heparin 25,000 units in dextrose 5% 500 mL infusion 350-7,000 Units/hr (rounded to 7-140 mL/hr), Intravenous, CONTINUOUS, Starting on Wed09/11/13 at 1645, Until Wed09/12/13 at 0810, Patient Weight 65-69 kg Initial dose - 800 units/hr = 16 mL/hr aPTT less than 60 sec - increase by 250 units/hr = 5 mL/hr aPTT 60-79 sec- increase by 150 units/hr = 3 mL/hr aPTT 80-114 sec - no change aPTT 115-129 sec - decrease by 50 units/hr = 1 mL/hr aPTT 130-145 sec - stop infusion for 30 min then decrease by 150 units/hr = 3 mL/hr aPTT greater than 145 sec - stop infusion for 60 min then decrease by 200 units/hr = 4 mL/hr aPTT greater than 145 sec X 2 - call warehouse man See Bolus dosing guidance for aPTT values less than 80 seconds under PRN medications Repeat aPTT 6 hours after initiating heparin. Then 6 hours after each dose adjustment. When 2 consecutive aPTT within target range of 80 - 114 seconds, change aPTT to once every 24 hours with A.M. labs while on heparin. RN to order required aPTT - Per Protocol, Routine Rate/Dose Verify 09/12/2013 5:13 AM EDT 1,350 Units/hr 27 mL/hr Rate/Dose Change 09/11/2013 10:30 PM EDT 1,350 Units/hr 27 mL/hr Rate/Dose Change 09/11/2013 4:49 PM EDT 1,100 Units/hr 22 mL/hr ipratropium-albuterol (DUONEB) 0.5 mg-3 mg(2.5 mg base)/3 mL nebulizer solution 3 mL 3 mL, Nebulization, 4 TIMES DAILY, First dose on Wed09/11/13 at 1700, Until Discontinued, Routine Given 09/13/2013 9:00 AM EDT 3 mLs Given 09/12/2013 5:14 PM EDT 3 mLs Given 09/12/2013 1:38 PM EDT 3 mLs lactated ringers infusion 100 mL/hr, Intravenous, CONTINUOUS, Starting on Wed09/12/13 at 0000, Until Wed09/13/13 at 1428 New Bag 09/12/2013 12:07 AM EDT 100 mL/hr 100 mL/hr lisinopril (PRINIVIL;ZESTRIL) tablet 10 mg 10 mg, Oral, DAILY, First dose on Wed09/12/13 at 0900, Until Discontinued, Routine Given 09/13/2013 9:00 AM EDT 10 mg Given 09/12/2013 1:37 PM EDT 10 mg metoprolol (LOPRESSOR) tablet 12.5 mg 12.5 mg, Oral, EVERY 6 HOURS SCHEDULED, First dose (after last modification) on Wed09/11/13 at 1800, Until Discontinued, Hold for SBP less than 90 mmHG or HR less than 50 beats per minute, Routine Given 09/13/2013 6:08 AM EDT 12.5 mg Given 09/13/2013 12:20 AM EDT 12.5 mg Given 09/12/2013 5:14 PM EDT 12.5 mg nicotine (NICODERM CQ) 14 mg/24 hr patch 14 mg 14 mg, Transdermal, Administer over 24 Hours, DAILY, First dose on Wed09/12/13 at 1530, Until Discontinued, STAT Given 09/13/2013 9:00 AM EDT 14 mg Given 09/12/2013 4:09 PM EDT 14 mg nicotine (NICODERM CQ) patch REMOVAL Transdermal, DAILY, First dose on Wed09/13/13 at 0900, Until Discontinued, Remove Nicotine Patch Given 09/13/2013 9:00 AM EDT 1 patch nitroGLYcerin (NITROSTAT) SL tablet 0.4 mg 0.4 mg, Sublingual, EVERY 5 MIN PRN, Starting on Wed09/11/13 at 1621, Until Wed09/13/13 at 1428, Chest pain, May repeat every 5 minutes for a total of three doses. Notify provider if chest pain not relieved with nitroglycerin. Do not administer nitroglycerin if the patinet has received or taken phosphodiesterase (PDE-5) inhibitors such as sildenafil, tadalafil or vardenafil within the last 24 to 72 hours., Routine Given 09/12/2013 1:47 PM EDT 0.4 mg Given 09/12/2013 11:45 AM EDT 0.4 mg Given 09/12/2013 10:50 AM EDT 0.4 mg predniSONE (DELTASONE) tablet 60 mg 60 mg, Oral, EVERY 6 HOURS SCHEDULED, 3 doses, First dose on Wed09/11/13 at 1800, Last dose on Wed09/12/13 at 0600, 60mg twice daily the day before and at 6 am on the day of procedure., STAT Given 09/12/2013 6:34 AM EDT 60 mg Given 09/12/2013 12:07 AM EDT 60 mg Given 09/11/2013 6:07 PM EDT 60 mg senna (SENOKOT) tablet 8.6 mg 8.6 mg, Oral, 2 TIMES DAILY, First dose on Wed09/13/13 at 1045, Until Discontinued, Routine Given 09/13/2013 10:45 AM EDT 8.6 mg sodium chloride 0.9% infusion 100 mL/hr, Intravenous, CONTINUOUS, Starting on Wed09/12/13 at 1045, Until Wed09/12/13 at 2044 New Bag 09/12/2013 10:45 AM EDT 100 mL/hr 100 mL/hr documented in this encounter Active and Recently Administered Medications Times are shown in EDT. Scheduled Medication Order 09/11/2013 09/12/2013 09/13/2013 aspirin EC tablet 81 mg (CANCELED) 81 mg, Oral, DAILY, First dose on Wed09/13/13 at 0900, Until Discontinued, Routine 0900 (Given - Provider: Juan Manuel Ellis RN) atorvastatin (LIPITOR) tablet 80 mg (CANCELED) 80 mg, Oral, EVERY EVENING, First dose on Wed09/11/13 at 1700, Until Discontinued, Routine 1800 (Given - Provider: Mare Fallon RN) 1714 (Given - Provider: Gabby Giles RN) clopidogrel (PLAVIX) tablet 75 mg 75 mg, Oral, DAILY, First dose on Wed09/13/13 at 0900, Until Discontinued, Routine 0900 (Given - Provider: Juan Manuel Ellis RN) diaZEPam (VALIUM) tablet 5 mg (COMPLETED) 5 mg, Oral, ONCE, 1 dose, On Wed09/12/13 at 0815, Cath (Day of Procedure), Routine 0802 (Given - Provider: Gabby Giles RN) diphenhydrAMINE (BENADRYL) capsule 25 mg (COMPLETED) 25 mg, Oral, ONCE, 1 dose, On Wed09/12/13 at 0815, Cath (Day of Procedure), Routine 0802 (Given - Provider: Gabby Giles RN) fluticasone-salmeterol (ADVAIR HFA) 115-21 mcg/actuation inhaler 2 puff (CANCELED) 2 puff, Inhalation, EVERY 12 HOURS SCHEDULED (2 times per day), First dose on Wed09/11/13 at 2100, Until Discontinued, Rinse mouth after administration 2013 (Given - Provider: Mare Fallon RN) 133 (Given - Provider: Gabby Giles RN)2014 (Given - Provider: Gbaby Rao RN) 0900 (Given - Provider: Juan Manuel Ellis, BOB) ipratropium-albuterol (DUONEB) 0.5 mg-3 mg(2.5 mg base)/3 mL nebulizer solution 3 mL (CANCELED) 3 mL, Nebulization, 4 TIMES DAILY, First dose on Wed09/11/13 at 1700, Until Discontinued, Routine 165 (Given - Provider: Gabby Rao RN)2013 (Given - Provider: Mare Fallon RN) 0900 (Not Given - Provider: Gabby Giles RN - Reason: Patient not available)1338 (Given - Provider: Gabby Giles RN)1714 (Given - Provider: Gabby Giles RN)2014 (Not Given - Provider: Gabby Rao RN - Reason: Patient/family refused) 0900 (Given - Provider: Juan Manuel Ellis, BOB) lisinopril (PRINIVIL;ZESTRIL) tablet 10 mg (CANCELED) 10 mg, Oral, DAILY, First dose on Wed09/12/13 at 0900, Until Discontinued, Routine 1337 (Given - Provider: Gabby Giles RN) 0900 (Given - Provider: Juan Manuel Ellis, BOB) metoprolol (LOPRESSOR) tablet 12.5 mg (CANCELED) 12.5 mg, Oral, EVERY 6 HOURS SCHEDULED, First dose (after last modification) on Wed09/11/13 at 1800, Until Discontinued, Hold for SBP less than 90 mmHG or HR less than 50 beats per minute, Routine 1800 (Given - Provider: Mare Fallon RN) 0007 (Given - Provider: Pushpa Lopez RN)0634 (Given - Provider: Pushpa Lopez RN)1337 (Given - Provider: Gabby Giles RN)1714 (Given - Provider: Gabby Giles RN) 0020 (Given - Provider: Arabella Martin, BOB)0608 (Given - Provider: Arabella Martin, BOB)1200 (Due) nicotine (NICODERM CQ) 14 mg/24 hr patch 14 mg(Linked Group 1) 14 mg, Transdermal, Administer over 24 Hours, DAILY, First dose on Wed09/12/13 at 1530, Until Discontinued, STAT 1609 (Given - Provider: Gabby Giles RN) 0900 (Given - Provider: Juan Manuel Ellis RN) nicotine (NICODERM CQ) patch REMOVAL (CANCELED)(Linked Group 1) Transdermal, DAILY, First dose on Wed09/13/13 at 0900, Until Discontinued, Remove Nicotine Patch 0900 (Given - Provider: Juan Manuel Ellis RN) predniSONE (DELTASONE) tablet 60 mg (COMPLETED) 60 mg, Oral, EVERY 6 HOURS SCHEDULED, 3 doses, First dose on Wed09/11/13 at 1800, Last dose on Wed09/12/13 at 0600, 60mg twice daily the day before and at 6 am on the day of procedure., STAT 1807 (Given - Provider: Mare Fallon RN) 0007 (Given - Provider: Pushpa Lopez, BOB)0634 (Given - Provider: Pushpa Lopez RN) senna (SENOKOT) tablet 8.6 mg (CANCELED) 8.6 mg, Oral, 2 TIMES DAILY, First dose on Wed09/13/13 at 1045, Until Discontinued, Routine 1045 (Given - Provider: Juan Manuel Ellis, BOB) Continuous Medication Order 09/11/2013 09/12/2013 09/13/2013 heparin 25,000 units in dextrose 5% 500 mL infusion (CANCELED) 350-7,000 Units/hr (rounded to 7-140 mL/hr), Intravenous, CONTINUOUS, Starting on Wed09/11/13 at 1645, Until Wed09/12/13 at 0810, Patient Weight 65-69 kg Initial dose - 800 units/hr = 16 mL/hr aPTT less than 60 sec - increase by 250 units/hr = 5 mL/hr aPTT 60-79 sec- increase by 150 units/hr = 3 mL/hr aPTT 80-114 sec - no change aPTT 115-129 sec - decrease by 50 units/hr = 1 mL/hr aPTT 130-145 sec - stop infusion for 30 min then decrease by 150 units/hr = 3 mL/hr aPTT greater than 145 sec - stop infusion for 60 min then decrease by 200 units/hr = 4 mL/hr aPTT greater than 145 sec X 2 - call warehouse man See Bolus dosing guidance for aPTT values less than 80 seconds under PRN medications Repeat aPTT 6 hours after initiating heparin. Then 6 hours after each dose adjustment. When 2 consecutive aPTT within target range of 80 - 114 seconds, change aPTT to once every 24 hours with A.M. labs while on heparin. RN to order required aPTT - Per Protocol, Routine 1500 (Not Given - Provider: Mare Fallon RN - Reason: Medication Discontinued)1627 (New Bag - Provider: Mare Fallon RN)1649 (Rate/Dose Change - Provider: Mare Fallon RN)2230 (Rate/Dose Change - Provider: Mare Fallon RN) 0513 (Rate/Dose Verify - Provider: Pushpa Lopez RN)0802 (Stopped - Provider: Gabby Gilse, BOB) lactated ringers infusion (CANCELED) 100 mL/hr, Intravenous, CONTINUOUS, Starting on Wed09/12/13 at 0000, Until Wed09/13/13 at 1428 0007 (New Bag - Provider: Pushpa Lopez RN)0802 (Stopped - Provider: Gabby Giles, BOB) sodium chloride 0.9% infusion () 100 mL/hr, Intravenous, CONTINUOUS, Starting on Wed09/12/13 at 1045, Until Wed09/12/13 at 2044 1045 (New Bag - Provider: Kanika Dillon RN) PRN Medication Order 09/11/2013 09/12/2013 09/13/2013 acetaminophen (TYLENOL) tablet 650 mg (CANCELED) 650 mg, Oral, EVERY 4 HOURS PRN, Starting on Wed09/11/13 at 1621, Until Wed09/13/13 at 1428, Pain, Headaches, Maximum dose of acetaminophen is 4000 mg from all sources in 24 hours., Routine 1609 (Given - Provider: Gabby Giles RN) aspirin chewable tablet (CANCELED) ONCE PRN, Starting on Wed09/12/13 at 0828, Until Wed09/12/13 at 1040, Cath (Intra-Procedure), Routine 827 (Given - Provider: Aristides Paulino RN) bivalirudin (ANGIOMAX) 250 mg in sodium chloride 0.9% 50 mL infusion (MORTGAGE COORDINATOR) (CANCELED) CONTINUOUS PRN, Starting on Wed09/12/13 at 0936, Until Wed09/12/13 at 1040, Cath (Intra-Procedure), Routine 935 (New Bag - Provider: Omero Ward RN) bivalirudin (ANGIOMAX) injection (CANCELED) ONCE PRN, Starting on Wed09/12/13 at 0933, Until Wed09/12/13 at 1040, Intra-Operative (Intra-Procedure), Routine 932 (Given - Provider: Omero Ward RN) clopidogrel (PLAVIX) tablet (CANCELED) ONCE PRN, Starting on Wed09/12/13 at 0927, Until Wed09/12/13 at 1040, Intra-Operative (Intra-Procedure), Routine 926 (Given - Provider: Bryce Campos) fentaNYL 50mcg/mL injection (CANCELED) ONCE PRN, Starting on Wed09/12/13 at 0836, Until Wed09/12/13 at 1016, Pain, Intra-Operative (Intra-Procedure), Routine 835 (Given - Provider: Omero Ward RN) fentaNYL 50mcg/mL injection (CANCELED) ONCE PRN, Starting on Wed09/12/13 at 0857, Until Wed09/12/13 at 1016, Pain, Cath (Intra-Procedure), Routine 0857 (Given - Provider: Bryce Campos) fentaNYL 50mcg/mL injection (CANCELED) ONCE PRN, Starting on Wed09/12/13 at 0958, Until Wed09/12/13 at 1016, Pain, Cath (Intra-Procedure), Routine 0958 (Given - Provider: Omero Ward RN) fentaNYL 50mcg/mL injection (CANCELED) 25 mcg, Intravenous, Administer over 4 Hours, EVERY 15 MIN PRN, Starting on Wed09/12/13 at 1021, Until Wed09/12/13 at 1318, Pain, For sheath removal, May repeat once, while in Cath Recovery Unit, Cath (Recovery-Hospital Unit), Routine 1155 (Given - Provider: Kanika Dillon RN) heparin (porcine) injection 2,000-4,000 Units (CANCELED) 2,000-4,000 Units, Intravenous, BOLUS PER HEPARIN PROTOCOL, Starting on Wed09/11/13 at 1621, Until Wed09/12/13 at 0810, Per Protocol, Adjust to dosing chart, Patient Weight 65-69 kg aPTT less than 60 seconds - 4,000 units aPTT 60-79 seconds - 2,000 units aPTT 80-114 seconds - no bolus Repeat aPTT 6 hours after initiating heparin. Then 6 hours after each dose adjustment. When 2 consecutive aPTT within target range of 80 - 114 seconds, change aPTT to once every 24 hours with A.M. labs while on heparin., RN to order required aPTT - Per Protocol, Routine 1651 (Given - Provider: Mare Fallon RN)2230 (Given - Provider: Mare Fallon RN) iohexol (OMNIPAQUE) 350 mg iodine/mL injection (CANCELED) ONCE PRN, Starting on Wed09/12/13 at 1012, Until Wed09/12/13 at 1040, Per Protocol, Cath (Intra-Procedure), Routine 1012 (Given - Provider: Wily Sheth MD) lidocaine (XYLOCAINE) 10 mg/mL (1 %) injection (CANCELED) ONCE PRN, Starting on Wed09/12/13 at 0837, Until Wed09/12/13 at 1040, Cath (Intra-Procedure), Routine 0837 (Given - Provider: Bryce Campos) midazolam (PF) (VERSED) 1 mg/mL injection (CANCELED) ONCE PRN, Starting on Wed09/12/13 at 0835, Until Wed09/12/13 at 1016, Sleep, Cath (Intra-Procedure), Routine 0835 (Canceled Entry - Provider: Omero Ward RN)0835 (Given - Provider: Omero Ward, BOB)0958 (Given - Provider: Omero Ward RN) nitroGLYcerin (NITROSTAT) SL tablet 0.4 mg (CANCELED) 0.4 mg, Sublingual, EVERY 5 MIN PRN, Starting on Wed09/11/13 at 1621, Until Wed09/13/13 at 1428, Chest pain, May repeat every 5 minutes for a total of three doses. Notify provider if chest pain not relieved with nitroglycerin. Do not administer nitroglycerin if the patinet has received or taken phosphodiesterase (PDE-5) inhibitors such as sildenafil, tadalafil or vardenafil within the last 24 to 72 hours., Routine 2009 (Given - Provider: Mare Fallon RN) 0500 (Given - Provider: Pushpa Lopez RN)1050 (Given - Provider: Kanika Dillon, RN - Comment: given per Dr Sheth)1145 (Given - Provider: Kanika Dillon RN)1347 (Given - Provider: Gabby Giles RN) nitroGLYCerin 100 mcg/mL intracoronary dilution (CANCELED) ONCE PRN, Starting on Wed09/12/13 at 0937, Until Wed09/12/13 at 1040, Cath (Intra-Procedure), Routine 936 (Given - Provider: Wily Sheth MD) nitroGLYCerin 100 mcg/mL intracoronary dilution (CANCELED) ONCE PRN, Starting on Wed09/12/13 at 0946, Until Wed09/12/13 at 1040, Cath (Intra-Procedure), Routine 09 (Given - Provider: Wily Sheth MD)1004 (Given - Provider: Wily Sheth MD) sodium chloride 0.9% infusion (CANCELED) CONTINUOUS PRN, Starting on Wed09/12/13 at 1012, Until Wed09/12/13 at 1040, Cath (Intra-Procedure) 1012 (New Bag - Provider: Omero Ward, RN) No Frequency Medication Order 09/11/2013 09/12/2013 09/13/2013 alum-mag hydroxide-simeth (MAALOX) 200-200-20 mg/5 mL oral suspension (COMPLETED) 1 dose, Starting on Wed09/12/13 at 1029, Until Wed09/12/13 at 1045, KANIKA DILLON: cabinet override 1045 (Given - Provider: Kanika Dillon, RN - Comment: per Dr Sheth) Linked Groups Order Group 1: nicotine (NICODERM CQ) 14 mg/24 hr patch 14 mgJump to med 14 mg, Transdermal, Administer over 24 Hours, DAILY, First dose on Wed09/12/13 at 1530, Until Discontinued, STAT And nicotine (NICODERM CQ) patch REMOVAL (CANCELED)Jump to med Transdermal, DAILY, First dose on Wed09/13/13 at 0900, Until Discontinued, Remove Nicotine Patch documented in this encounter Care Teams Biofuels Manager Relationship Specialty Start Date End Date Edin Messina MD [address] [place] [address] PCP - General 10/02/11 01/11/22 documented as of this encounter
--- OUTSIDE RECORDS SUMMARY | 2024-01-05 02:49 | XMS_ITS | Encounter Summary ---
Author Organization [facility] Address [facility] [place] [address] Care Team Providers Care Sand Slinger Name Role Phone Nataliya Messina MD Primary Care Provider [phone] Encounter Details Date Type Department Care Team (Latest Contact Info) Description 10/09/2013 4:31 PM EDT - 10/09/2013 11:59 PM EDT Hospital Encounter [facility] [address] [place] [address] Rivas Montesinos MD [facility] [place] [address] Discharge Disposition: Home Social History Tobacco Use [...] mouth daily. 30 tablet 1 10/11/2013 04/30/2016 metoprolol succinate (TOPROL-XL) 100 mg XL tablet Take 150 mg by mouth daily. 10/11/2013 clopidogrel (PLAVIX) 75 mg tablet Take 1 [...] AM EDT Appointment Hematology [place] [address] 01/21/2024 10:[address] [place] [address] Heber Phillips MD [facility] HEMATOLOGY/[place] [address] 03/28/2024 10:00 AM EDT Office Visit Hematology/Oncology at [address] [phone] Heber Phillips MD [facility] HEMATOLOGY/[place] [address] Isabella Baker APRN [facility] [place] [address] documented as of this encounter Procedures Procedure Name Priority Date/Time Associated Diagnosis Comments CK-MB STUDY STAT 10/09/2013 3:55 PM EDT documented in this encounter Results * CK-MB Study (10/09/2013 3:55 PM EDT) CK, Total 89 0 - 200 unit/L CERNER MILLENNIUM CK-MB 2.5 0.0 - 5.0 mcg/L CERNER MILLENNIUM CKMB Index 2.8 0.0 - 5.0 mcg/u CERNER MILLENNIUM Blood specimen (specimen) 10/09/2013 3:55 PM EDT 10/09/2013 4:35 PM EDT Narrative Resulting Agency Comment Spec In Lab Rivas Rivero MD CHEMISTRY ORDERABLES Performing Organization Address City/State/[facility] Co de Phone Number [employer] documented in this encounter Visit Diagnoses Not on filedocumented in this encounter Care Teams Sand Slinger Relationship Specialty Start Date End Date Nataliya Messina MD [address] [place] [address] PCP - General 10/02/11 01/11/22 documented as of this encounter
--- OUTSIDE RECORDS SUMMARY | 2024-01-05 02:49 | XMS_ITS | Encounter Summary ---
Author Organization [facility] [place] [address] Care Team Providers Care Carousel Attendant Name Role Phone Nataliya Messina MD Primary Care Provider [phone] Reason for Visit * Reason Comments Follow-up 2 MONTH F/U ASCVD, s tents, c/o bruising, has had numbness over L chest area about 4 times that lasts only seconds and never occurs with exertion Encounter Details Date Type Department Care Team (Late st Contact Info) Description 12/11/2013 9:30 AM EDT Follow-Up Cardiology at [address] [address] Lauri Winn Jr., MD [address] [place] [address] [id number] ASCVD (arteriosclerotic cardiovascular disease) (Primary Dx) Social History Tobacco Use Types [...] Sign Reading Time Taken Comments Blood Pressure 120/58 12/11/2013 9:37 AM EDT Pulse 60 12/11/2013 9:37 AM EDT Temperature - - Respiratory Rate - - Oxygen Saturation - - Inhaled Oxygen Concentration - - Weight 70.8 kg (156 lb) 12/11/2013 9:37 AM EDT Height 167.6 cm (5' 6) 12/11/2013 9:37 AM EDT Body Mass Index 25.18 12/11/2013 9:37 AM EDT documented in this encounter Progress Notes * Lauri Winn Jr., MD - 12/11/2013 9:44 AM EDT Subjective: Patient ID: Hieu Tillman is a 58 y.o. male. Chief Complaint Patient presents with ??? Follow-up 2 MONTH F/U ASCVD, stents, c/o bruising, has had numbness over L chest area about 4 times that lasts only seconds and never occurs with exertion HPI He has had no exertional chest pain and has been more active doing chores and walking. Leg fatigue limits his activity, but he can slowly do more. He has had rare chest tingles that last seconds.His breathing is better. Review of Systems scattered bruising, no bleeding SH: not smoking but has cravings Allergies Allergen Reactions ??? Contrast (Iodine-Iodine Containing) [...] inhaler 2 Puff(s), Inh, Twice daily ??? [DISCONTINUED] nicotine (NICODERM CQ) 14 mg/[address] 1 patch onto the skin daily. 28 patch 0 Patient Active Problem List Diagnosis ??? CAD [...] to right leg Objective: Physical Exam BP 120/58 Pulse 60 Ht 167.6 cm (5' 6) Wt 70.761 kg (156 lb) BMI 25.19 kg/m2 NAD No JVD/HJR Chest clear Cor RR, no murmur Abd benign Ext no edema Assessment and Plan: Well controlled angina-encouraged continued slow increase in activity. Bruising from plavix- must continue it for 1 year. BP controlled PVD limiting but slightly better-continue to exercise Lipids- continue diet and statin- check in 6-12 months Smoking- reviewed that it is ok to use nicotine gum or patches if necessary Follow up 6 months documented in this encounter Plan of Treatment Upcoming Encounters Date Type Department Care Team (Late st Contact Info) Description 01/10/2024 7:45 AM EDT Appointment Hematology [place] [address] 01/21/2024 10:[address] [place] [address] Heber Phillips MD [facility] [address] HEMATOLOGY/[place] [address] 03/28/2024 10:00 AM EDT Office Visit Hematology/Oncology at [address] [phone] Heber Phillips MD [facility] [address] HEMATOLOGY/[place] [address] Isabella Baker APRN [facility] [place] [address] documented as of this encounter Visit Diagnoses Diagnosis ASCVD (arteriosclerotic cardiovascular disease)- Primary Unspecified cardiovascular disease documented in this encounter Care Teams Carousel Attendant Relationship Specialty Start Date End Date Nataliya Messina MD [address] [place] [address] PCP - General 10/02/11 01/11/22 documented as of this encounter
--- OUTSIDE RECORDS SUMMARY | 2024-01-05 02:49 | XMS_ITS | Encounter Summary ---
Author Organization [facility] [place] [address] Care Team Providers Care Certified Pest Control Technician Name Role Phone Nataliya Messina MD Primary Care Provider [phone] Reason for Visit * Reason Comments Coronary Artery Disease Was admitted shai in august and had cath and stent and then was readmitted last week for angina and had a cath and another stent placed. Encounter Details Date Type Department Care Team (Late st Contact Info) Description 10/16/2013 9:30 AM EDT Office Visit Cardiology at [address] [phone] Lauri Winn Jr., MD [address] [place] [phone] ASCVD (arteriosclerotic cardiovascular disease) (Primary Dx) Social [...] Sign Reading Time Taken Comments Blood Pressure 114/54 10/16/2013 9:44 AM EDT Pulse 79 10/16/2013 9:44 AM EDT Temperature - - Respiratory Rate - - Oxygen Saturation - - Inhaled Oxygen Concentration - - Weight 69.9 kg (154 lb) 10/16/2013 9:44 AM EDT Height 167.6 cm (5' 6) 10/16/2013 9:44 AM EDT Body Mass Index 24.86 10/16/2013 9:44 AM EDT documented in this encounter Progress Notes * Lauri Winn Jr., MD - 10/16/2013 10:13 AM EDT Subjective: Patient ID: Hieu Tillman is a 58 y.o. male. Chief Complaint Patient presents with ??? Coronary Artery Disease Was admitted back in august and had cath and stent and then was readmitted last week for angina and had a cath and another stent placed. HPI He has had no further angina since his second cath. He has been walking without problems and isdue to resume cardiac rehab in 2 days. He has not smoked. He is working on a better diet-especiallyavoiding snacks. His energy level is good. Review of Systems no bruising or bleeding Allergies Allergen Reactions ??? Contrast (Iodine-Iodine Containing) [...] inhaler 2 Puff(s), Inh, Twice daily Patient Active Problem List Diagnosis ??? CAD [...] to right leg Objective: Physical Exam BP 114/54 Pulse 79 Ht 167.6 cm (5' 6) Wt 69.854 kg (154 lb) BMI 24.87 kg/m2 NAD No JVD/HJR Chest clear Cor RR, no murmur Abd benign, overweight Ext no edema EKG: NSR 79, no ST change Assessment and Plan: Well controlled angina-encouraged to resume rehab and plan for regular exercise at home after rehab Applauded re smoking cessation Lipids- reviewed ok to take lipitor in AM, and reviewed diet BP controlled Follow up 2 months documented in this encounter Plan of Treatment Upcoming Encounters Date Type Department Care Team (Late st Contact Info) Description 01/10/2024 7:45 AM EDT Appointment H[place]ology [place] [address] 01/21/2024 10:[address] [place] [address] Heber Phillips MD [facility] [address] HEMATOLOGY/[place] [address] 03/28/2024 10:00 AM EDT Office Visit Hematology/Oncology at [address] [phone] Heber Phillips MD [facility] HEMATOLOGY/[place] [address] Isabella Baker APRN [facility] [place] [address] documented as of this encounter Visit Diagnoses Diagnosis ASCVD (arteriosclerotic cardiovascular disease)- Primary Unspecified cardiovascular disease documented in this encounter Care Teams Certified Pest Control Technician Relationship Specialty Start Date End Date Nataliya Messina MD [address] [place] [address] PCP - General 10/02/11 01/11/22 documented as of this encounter
--- OUTSIDE RECORDS SUMMARY | 2024-01-05 02:49 | XMS_ITS | Encounter Summary ---
Author Organization [facility] Address [facility] [place] [id number] Care Team Providers Care Sheetmetal Patternmaker Name Role Phone Nataliya Messina MD Primary Care Provider [phone] Encounter Details Date Type Department Care Team (Latest Contact Info) Description 09/13/2013 7:57 AM EDT - 09/13/2013 11:59 PM EDT Hospital Encounter [facility] [address] [place] [address] Rivas Montesinos MD [facility] CARDIOLOGY [place] [address] Discharge Disposition: Home Social History Tobacco Use Types Packs/Day Years Used Date Smoking Tobacco: Every Day Cigarettes Comments:ill give it a try Alcohol Use [...] AM EDT Appointment Hematology [place] [address] 01/21/2024 10:[address] [place] [address] Heber Phillips MD [facility] HEMATOLOGY/[place] [address] 03/28/2024 10:00 AM EDT Office Visit Hematology/Oncology at [address] [phone] Heber Phillips MD [facility] HEMATOLOGY/[place] [address] Isabella Baker APRN [facility] [place] [address] documented as of this encounter Procedures Procedure Name Priority Date/Time Associated Diagnosis Comments CK-MB STUDY Routine 09/13/2013 9:50 AM EDT CK-MB STUDY Routine 09/13/2013 4:13 AM EDT documented in this encounter Results * (ABNORMAL) CK-MB Study (09/13/2013 9:50 AM EDT) CK, Total 300(H) 0 - 200 unit/L CERNER MILLENNIUM CK-MB 27.6(H) 0.0 - 5.0 mcg/L CERNER MILLENNIUM CKMB Index 9.2(H) 0.0 - 5.0 mcg/u CERNER MILLENNIUM Blood specimen (specimen) 09/13/2013 9:50 AM EDT 09/13/2013 11:08 AM EDT Narrative Resulting Agency Comment Spec In Lab Rivas Rivero MD CHEMISTRY ORDERABLES Performing Organization Address City/[facility] Co de Phone Number CERNER MILLENNIUM * (ABNORMAL) CK-MB Study (09/13/2013 4:13 AM EDT) CK, Total 339(H) 0 - 200 unit/L CERNER MILLENNIUM CK-MB 33.4(H) 0.0 - 5.0 mcg/L CERNER MILLENNIUM CKMB Index 9.9(H) 0.0 - 5.0 mcg/u CERNER MILLENNIUM Blood specimen (specimen) 09/13/2013 4:13 AM EDT 09/13/2013 8:14 AM EDT Narrative Resulting Agency Comment Spec In Lab Rivas Rivero MD CHEMISTRY ORDERABLES Performing Organization Address City/State/[facility] Co de Phone Number CERNER MILLENNIUM documented in this encounter Visit Diagnoses Not on filedocumented in this encounter Care Teams Sheetmetal Patternmaker Relationship Specialty Start Date End Date Nataliya Messina MD [address] [place] [address] [address] [place] [address] PCP - General 10/02/11 01/11/22 documented as of this encounter
--- OUTSIDE RECORDS SUMMARY | 2024-01-05 02:49 | XMS_ITS | Encounter Summary ---
[place] [address] Care Team Providers Care Mushroom Sorter Grader Name Role Phone Nataliya Messina MD Primary Care Provider [phone] Encounter Details Date Type Department Care Team (Latest Contact Info) Description 02/20/2014 1:30 PM EDT Ancillary Appointment [place] [address] Vianca Castillo [place] Carotid stenosis; PVD (peripheral vascular disease) Social History [...] AM EDT Appointment Hematology [place] [phone] 01/21/2024 10:[address] [place] [address] [facility] HEMATOLOGY/[place] [address] 03/28/2024 10:00 AM EDT Office Visit Hematology/Oncology at [address] [phone] [facility] DR HEMATOLOGY/[place] [address] [facility] DR [place] [address] documented as of this encounter Procedures Procedure Name Priority Date/Time Associated Diagnosis Comments NALDO, LEGS, MULTIPLE LEVELS Routine 02/20/2014 1:26 PM EDT PVD (peripheral vascular disease) CAROTID DUPLEX, BILATERAL Routine 02/20/2014 1:26 PM EDT Carotid stenosis documented in this encounter Results * NALDO, legs, multiple levels (02/20/2014 1:26 PM EDT) VB Text Report Department: Vascular Surgery Lab Patient: [id number] (BRITTA SAEED) CPT Code: 72622 ICD-9: 440.21 Referring Physician: KRISTAN PATRICK Indication: ?? F/U PVOD ICD9 Diagnosis Code: 440.21 Diabetes Mellitus: ??No Definitions: ?? NALDO = Ankle / Brachial Systolic Pressure Index, TBI = Toe / Brachial Systolic Pressure Index Findings: Right ?Pressure (mm Hg) ?? NALDO ??Waveform ? Brachial Artery ?118 ? Dorsalis Pedis (Ankle) Artery ?76 ?0.64 ??[place]-Biphasic ?? Posterior Tibial (Ankle) Artery ??90 ?0.76 ??[place]-Biphasic ?? Left ? Pressure (mm Hg) ?? NALDO ??Waveform ?? Brachial Artery ?115 ? Dorsalis Pedis (Ankle) Artery ?83 ?0.70 ??Biphasic ?? Posterior Tibial (Ankle) Artery ??88 ?0.75 ??Biphasic ?? Interpretation: RIGHT: Mild to moderate lower extremity arterial occlusive disease. Improvement in the PT NALDO from previous exams. LEFT: Mild lower extremity arterial occlusive disease. Some improvement in the PT NALDO from most recent exams, although more consistent with exam done 11/11/11. Previous ABIs with change from previous value: Date ?RIGHT DP ?? RIGHT PT ?? RT GR TOE ??LEFT DP ?LEFT PT ?LT GR TOE ??0.22 ? 0.21 ? ---- ? 0.67 ? 0.69 ? ---- ??0.63(+.41) 0.56(+.35) ---- ? 0.65(-.02) 0.63(-.06) ---- ??0.59(-.04) 0.60(+.04) ---- ? 0.61(-.04) 0.61(-.02) ---- Current ? 0.64(+.05) 0.76(+.16) ---- ? 0.70(+.09) 0.75(+.14) ---- Electronically Signed by: LISE SEGURA on 2014-02-22 10:28:15 PM VASCUBASE VB Text Report End of Report VASCUBASE 02/20/2014 1:26 PM EDT Kristan Patrick MD VASCULAR ORDERABLES VASCUBASE * Cerebrovascular Duplex, Bilateral (02/20/2014 1:26 PM EDT) VB Text Report Department: Vascular Surgery Lab Patient: [id number] (BRITTA SAEED) CPT Code: 18940 ICD-9: 433.10 Referring Physician: KRISTAN PATRICK Indication: ?? F/U carotid disease, ? progression ICD9 Diagnosis Code: 433.10 Findings: ICA Proximal, Right ? PSV (cm/s): 349 ? EDV (cm/s): 105 ? ICA/CCA: 3.9 ? Plaque Structure: Mixed Echogenic ? Plaque Surface: Irregular ? %Stenosis: 50-79% ICA Distal, Right ? PSV (cm/s): 75 ? EDV (cm/s): 30 ? ICA/CCA: 0.9 CCA Distal, Right ? PSV (cm/s): 83 ? EDV (cm/s): 24 ? %Stenosis: <50% CCA Proximal, Right ? PSV (cm/s): 126 ? EDV (cm/s): 27 External Carotid Artery, Right ? PSV (cm/s): 190 ? EDV (cm/s): 21 ? %Stenosis: Near 50% Vertebral, Right ? PSV (cm/s): 55 ? EDV (cm/s): 15 ? Direction of Flow: Antegrade ICA Proximal, Left ? PSV (cm/s): 118 ? EDV (cm/s): 41 ? ICA/CCA: 1.4 ? Plaque Structure: Mixed Echogenic ? Plaque Surface: Irregular ? %Stenosis: 16-49% ICA Middle, Left ? PSV (cm/s): 112 ? EDV (cm/s): 36 ? ICA/CCA: 1.3 ICA Distal, Left ? PSV (cm/s): 76 ? EDV (cm/s): 18 ? ICA/CCA: 0.9 CCA Distal, Left ? PSV (cm/s): 83 ? EDV (cm/s): 25 ? %Stenosis: Minimal CCA Proximal, Left ? PSV (cm/s): 121 ? EDV (cm/s): 27 External Carotid Artery, Left ? PSV (cm/s): 104 ? EDV (cm/s): 15 ? %Stenosis: <50% Vertebral, Left ? PSV (cm/s): 57 ? EDV (cm/s): 21 ? Direction of Flow: Antegrade Interpretation: RIGHT: Smooth plaque is present in the mid/distal common carotid artery causing 20-30% stenosis by e-caliper measurement. There is bulky echogenic and mixed echogenic plaque in the proximal internal carotid artery causing 50-79% stenosis when compared to the more distal internal carotid artery. No significant change from previous exam. The bifurcation level is in the mid neck. LEFT: A thin layer of circumferential plaque is present in the common carotid artery causing minimal stenosis. There is bulky irregular echogenic and mixed echogenic plaque in the proximal internal [...] 4.57 ? 16-49% ? 122 ?? 1.45 Current Exam ? 50-79% ? 349 ?? 3.93 ? 16-49% ? 118 ?? 1.42 Electronically Signed by: LISE SEGURA on 2014-02-22 10:29:29 PM VASCUBASE VB Text Report End of Report VASCUBASE 02/20/2014 1:26 PM EDT Kristan Patrick MD VASCULAR ORDERABLES VASCUBASE documented in this encounter Visit Diagnoses Diagnosis Carotid stenosis Occlusion and stenosis of carotid artery without mention of cerebral infarction PVD (peripheral vascular disease) Peripheral vascular disease, unspecified documented in this encounter Care Teams Mushroom Sorter Grader Relationship Specialty Start Date End Date Nataliya Messina MD [address] [place] [address] PCP - General 10/02/11 01/11/22 documented as of this encounter
--- OUTSIDE RECORDS SUMMARY | 2024-01-05 02:49 | XMS_ITS | Encounter Summary ---
Author Organization [facility] [place] [address] Care Team Providers Care Wood Grainer Name Role Phone Nataliya Messina MD Primary Care Provider [phone] Encounter Details Date Type Department Care Team (Late st Contact Info) Description 02/20/2014 3:00 PM EDT Follow-Up [place] [phone] Mitch Wing APRN [facility] [place] [address] PAD (peripheral artery disease) (Primary Dx); Carotid stenosis, bilateral Discharge Disposition: Home Social History Tobacco Use [...] Sign Reading Time Taken Comments Blood Pressure 110/68 02/20/2014 2:11 PM EDT Pulse 80 02/20/2014 2:11 PM EDT Temperature 36.4 ??C (97.5 ??F) 02/20/2014 2:11 PM ED T Respiratory Rate 16 02/20/2014 2:11 PM EDT Oxygen Saturation 96% 02/20/2014 2:11 PM EDT Inhaled Oxygen Concentration - - Weight 70.8 kg (156 lb) 02/20/2014 2:11 PM EDT Height 167.6 cm (5' 6) 02/20/2014 2:11 PM EDT Body Mass Index 25.18 02/20/2014 2:11 PM EDT documented in this encounter Patient Instructions * Patient Instructions* Mitch Wing APRN - 02/20/2014 4:39 PM EDT Please call our office if you notice decrease in walking distance, pain in your foot that wakes youat night and is relieved with getting up or hanging it over the side of the bed or you have foot wound that will not heal. If you experience numbness, tingling, weakness of arm and or leg, change in vision, or difficulty speaking please call 911 and notify your medical provider. We will see you in 6 months with duplex of your carotid arteries. We will call you to schedule thisappointment closer to that time. You will get a call from our office regarding Dr. Patrick's recommendations about your legs. documented in this encounter Progress Notes * Mitch iWng APRN - 02/20/2014 2:23 PM EDT F/u carotid duplex. Denies rest pain, tissue loss. Walks 2 mile per day 1/4 mile at time before bilateral hip and buttock pain. Denies SOB, TIA'S. August stents placed in heart. s/p R JAYA stent 12/07/11 PE General: NAD, appears well Neuro: Alert and oriented, motor sensory grossly intact Lungs: CTA Heart: RRR Abd: Soft, NT, ND, no palpable pulsatile masses Extremity - [place], warm, no ulceration, brisk capillary refill, no edema Vascular: R L Carotid 2/2 bruit (y) 2/2 bruit (n) Radial 2/2 2/2 Femoral -/2 -/2 Popliteal -/2 -/2 DP 1/2 1/2 PT 1/2 1/2 Carotid duplex ICA Proximal, Right PSV (cm/s): 349 EDV (cm/s): 105 ICA/CCA: 3.9 Plaque Structure: Mixed Echogenic Plaque Surface: Irregular %Stenosis: 50-79% ICA Distal, Right PSV (cm/s): 75 EDV (cm/s): 30 ICA/CCA: 0.9 CCA Distal, Right PSV (cm/s): 83 EDV (cm/s): 24 %Stenosis: <50% CCA Proximal, Right PSV (cm/s): 126 EDV (cm/s): 27 External Carotid Artery, Right PSV (cm/s): 190 EDV (cm/s): 21 %Stenosis: Near 50% Vertebral, Right PSV (cm/s): 55 EDV (cm/s): 15 Direction of Flow: Antegrade ICA Proximal, Left PSV (cm/s): 118 EDV (cm/s): 41 ICA/CCA: 1.4 Plaque Structure: Mixed Echogenic Plaque Surface: Irregular %Stenosis: 16-49% ICA Middle, Left PSV (cm/s): 112 EDV (cm/s): 36 ICA/CCA: 1.3 ICA Distal, Left PSV (cm/s): 76 EDV (cm/s): 18 ICA/CCA: 0.9 CCA Distal, Left PSV (cm/s): 83 EDV (cm/s): 25 %Stenosis: Minimal CCA Proximal, Left PSV (cm/s): 121 EDV (cm/s): 27 External Carotid Artery, Left PSV (cm/s): 104 EDV (cm/s): 15 %Stenosis: <50% Vertebral, Left PSV (cm/s): 57 EDV (cm/s): 21 Direction of Flow: Antegrade Interpretation: RIGHT: Smooth [...] normal antegrade Doppler waveforms and velocities bilaterally. NALDO's Right Pressure (mm Hg) NALDO Waveform Brachial Artery 118 Dorsalis Pedis (Ankle) Artery 76 0.64 [place]-Biphasic Posterior Tibial (Ankle) Artery 90 0.76 [place]-Biphasic Left Pressure (mm Hg) NALDO Waveform Brachial Artery 115 Dorsalis Pedis (Ankle) Artery 83 0.70 Biphasic Posterior Tibial (Ankle) Artery 88 0.75 Biphasic Interpretation: RIGHT: Mild to moderate lower extremity arterial occlusive disease. Improvement in the PT NALDO from previous exams. LEFT: Mild lower extremity arterial occlusive disease. Some improvement in the PT NALDO from most recent exams, although more consistent with exam done 11/11/11. Assessment/Plan: 58 yo male s/p R JAYA stent 12/06/12. Known carotid disease. HUMERA stalbe 50-79% stenosis, LICA stable 16-49% stenosis. NALDO's improvement RABI for 076, LABI stable 0.75. Continue ASA and statin. RTC 6 months with carotid duplex. Will discuss AIB's and walking with . Addendum: continue walking program and RTC 6 months with NALDO's documented in this encounter Miscellaneous Notes * Addendum Note - Mitch Wing APRN - 02/21/2014 1:34 PM EDTAddended by: MITCH WING on: 02/21/2014 01:34 PM Modules accepted: Orders documented in this encounter Plan of Treatment Upcoming Encounters Date Type Department Care Team (Late st Contact Info) Description 01/10/2024 7:45 AM EDT Appointment Hematology [place] [phone] 01/21/2024 10:[address] [place] [phone] Heber Phillips MD [facility] HEMATOLOGY/[place] [address] 03/28/2024 10:00 AM EDT Office Visit Hematology/Oncology at [address] [phone] Heber Phillips MD [facility] DR HEMATOLOGY/[place] [address] Isabella Baker APRN [facility] [place] [address] documented as of this encounter Results * NALDO, legs, multiple levels (10/15/2014 12:30 PM EDT) VB Text Report Department: Vascular Surgery Lab Patient: [id number] (BRITTA SAEED) CPT Code: 23603 ICD-9: 440.21 Referring Physician: KRISTAN PATRICK Indication: [...] ? Dorsalis Pedis (Ankle) Artery ?95 ?0.72 ??[place]-Biphasic ?? Posterior Tibial (Ankle) Artery ??94 ?0.71 [...] VASCULAR ORDERABLES VASCUBASE * Cerebrovascular Duplex, Bilateral (10/15/2014 12:30 PM EDT) VB Text Report Department: Vascular Surgery Lab Patient: [id number] (BRITTA SAEED) CPT Code: 14993 ICD-9: 447.1 Referring Physician: KRISTAN PATRICK Indication: [...] encounter Visit Diagnoses Diagnosis PAD (peripheral artery disease)- Primary Peripheral vascular disease, unspecified Carotid stenosis, bilateral Occlusion and stenosis of multiple and bilateral precerebral arteries without mention of cerebral infarction documented in this encounter Care Teams Wood Grainer Relationship Specialty Start Date End Date Nataliya Messina MD [address] [place] [address] PCP - General 10/02/11 01/11/22 documented as of this encounter
--- OUTSIDE RECORDS SUMMARY | 2024-01-05 02:49 | XMS_ITS | Encounter Summary ---
Author Organization [facility] Address [facility] [place] [address] Care Team Providers Care Social Psychologist Name Role Phone Edin Messina MD Primary Care Provider [phone] Encounter Details Date Type Department Care Team (Late st Contact Info) Description 10/10/2013 1:30 PM EDT - 10/10/2013 2:30 PM EDT [place] [address] Stevo Dalton MD [facility] [place] [address] Not Performed CARDIAC CATHETERIZATION Social History Tobacco Use Types Packs/Day Years [...] Sign Reading Time Taken Comments Blood Pressure 161/82 10/10/2013 11:04 AM EDT Pulse 79 10/10/2013 11:04 AM EDT Temperature 36.6 ??C (97.9 ??F) 10/10/2013 11:04 AM E DT Respiratory Rate 18 10/10/2013 11:04 AM EDT Oxygen Saturation 96% 10/10/2013 11:04 AM EDT Inhaled Oxygen Concentration - - [...] appointments: During 8am-5pm Wednesday through Wednesday call [phone] to speak with a nurse in the cardiology clinic All other times call [phone] and ask to speak to the cattery operator jewelry salesperson. Return to work: One week Driving: No driving for 48 hours after catheterization. Follow up Appointments: PCP EDIN MESSINA MD to see you on October 18 at 240 pm. Please call [phone] Lauri Winn to see you in [place] on WednesdayOctober 16 at 930 am as previously arranged. Please call his office at [phone]. Home oxygen therapy: N/A Arrangements for VNA/home care: none * Attachments The following attachments cannot be sent through Care Everywhere. * PCI (PERCUTANEOUS CORONARY INTERVENTION) : GENERAL INFO (GUAMANIAN) documented in this encounter Medications at Time [...] Patient left ambulating independently with his to [facility] for home. * Mila Mccall MD - 10/11/2013 9:43 AM EDT Inpatient Cardiology Progress Note Patient Name: Hieu Tillman Service: PERIANESTHESIA NURSE / PA Responsible Attending: Mila Mccall MD [...] COPD and carotid disease who presents to [facility] in transfer from [facility] on 10/09 with atypical chest discomfort [...] Mccall MD KELLY H LAFLAMME, PA Pager [phone] 10/11/2013 Attending Addendum I personally conducted comprehensive [...] secondary prevention regiment. I am a credentialed health data analyst at [facility] and I am the attending of record for the patient's admission. I certify that this patient meets or has met the criteria for inpatient treatment for their acute condition meeting a minimum of two midnights. The acute conditions are detailed above Mila Mccall MD Staff Lehr Tender Pager: [phone] * Nelly Antunez - 10/10/2013 9:54 PM [...] pulses are palpable. Nelly Antunez MD # [id number] * Remi Sky RN - 10/10/2013 11:46 AM EDT Office of Care Management (OCM) / Clinical Telephone Directory Distributor Driver (CRC)/ Initial Assessment Discussed patient with Provider [...] Has five childen who all live in [facility]. ADVANCE DIRECTIVES: Pt reports he and his are working on their AD at home. Not complete at this time. HEALTH /PRESCRIPTION COVERAGE: [place] [employer]. No financial concerns expressed at this time. CURRENT HOME/COMMUNITY SERVICES/EQUIPMENT: DME: None Home Health Agency: None Other: MATERIAL ATTENDANT REFERRAL: Notified MATERIAL ATTENDANT - for Support/Financial/Medication Assistance; See MATERIAL ATTENDANT notes for further needs. PRIMARY CARE PHYSICIAN: EDIN MESSINA MD [place] [id number] / [facility] [id number] POTENTIAL DISCHARGE NEEDS: None ID at this [...] planning while hospitalized Remi KWAN, RN Clinical Telephone Directory Distributor Driver Pager [phone] * Mila Mccall MD - 10/10/2013 11:19 AM EDT Images from the original note were not included. Inpatient Cardiology Progress Note Patient Name: Hieu Tillman Service: PERIANESTHESIA NURSE / PA Responsible Attending: Mila Mccall MD [...] COPD and carotid disease who presents to [facility] in transfer from [facility] on 10/09 with atypical chest discomfort [...] Discussed with Mila Mccall MD Janette Stender, DEVANTE 10/10/2013 Attending Addendum I personally conducted comprehensive [...] Tobacco abuse, recently quit 4. COPD Mr. Farmer chest pain symptoms have not really changed [...] his chest pain. Mila Mccall MD Staff Lehr Tender Pager: [phone] I am a credentialed health data analyst at [facility] and I am the attending of record [...] nicotine patch) who was sent to the [facility] ED today after having chest pressure [...] normal self. He arrives pain free from [facility]. Past Medical History: Past Medical History Diagnosis [...] Social History Narrative Lives with his in [place], [place]. 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 I am a credentialed health data analyst at [facility] and I am the attending of record for the patient's admission. I certify that this patient meets or has met the criteria for inpatient treatment for their acute condition meeting a minimum of two midnights. The acute conditions are detailed above Mila Mccall MD Staff Lehr Tender Pager: [phone] documented in this encounter Procedure Notes * Provider, Scanning - 10/17/2013 11:49 AM EDTAssociated Order(s): CARDIAC CATHETERIZATION * Provider, Scanning - 10/15/2013 10:32 AM EDTAssociated Order(s): SCAN DOC: HASHER MACHINE OPERATOR * Provider, Scanning - 10/12/2013 12:09 PM EDTAssociated Order(s): SCAN DOC: HASHER MACHINE OPERATOR * Provider, Scanning - 10/10/2013 5:00 PM [...] Is currently enrolled in cardiac rehab @ [facility]; will return Activity Summary: By discharge, [...] Hieu Tillman Patient Age: 58 y.o. Language: Ecuadorean Race: White Ethnicity: Not nor Admit date: 10/09/2013 Discharge date and time: 10/11/2013 11:37 AM Attending Physician: Mila Mccall MD Discharge Physician: Mila Mccall MD Follow-up Recommendations for Providers: Continue to encourage smoking cessation Follow up on left groin site Inpatient Provider Contact Information: ANITHA Mosqueda MORGANEDOUARD, MANAGER VOICE [phone] Discharge Diagnoses (Hospital Problems) and Secondary Diagnoses [...] nicotine patch) who was sent to the [facility] ED today after having chest pressure [...] normal self. He arrives pain free from [facility]. Hospital Course: Angina The nature of [...] appointments: During 8am-5pm Wednesday through Wednesday call [phone] to speak with a nurse in the cardiology clinic All other times call [phone] and ask to speak to the cattery operator jewelry salesperson. Return to work: One week Driving: No driving for 48 hours after catheterization. Follow up Appointments: PCP EDIN MESSINA MD to see you on October 18 at 240 pm. Please call [phone] Lauri Winn to see you in [place] on WednesdayOctober 16 at 930 am as previously arranged. Please call his office at [phone]. Home oxygen therapy: N/A Arrangements for VNA/home care: none Future Appointments and Orders Future Appointments: Provider: Department: Dept Phone: Center: 10/16/2013 9:30 AM Lauri Winn Jr., MD [place] [facility] [phone] None Future Orders Please Complete By Expires Referral to Cardiac Rehab [TIR279 Custom] Process Instructions: If no progress note charted, please enter Clinical details in comments. Scheduling Instructions: Comments: Return to cardiac rehab @ [facility] Questions: Responses: Reason for referral angina,stent Discharge References/Attachments None MILA MCCALL MD >30 minutes were spent on this inpatient discharge. * Miscellaneous - Wandy Dennison - 10/09/2013 2:57 PM EDT documented in this encounter Plan of Treatment Upcoming Encounters Date Type Department Care Team (Late st Contact Info) Description 01/10/2024 7:45 AM EDT Appointment [place] [address] 01/21/2024 10:[address] Scan at [facility] [place] [address] Heber Phillips MD [facility] HEMATOLOGY/[place] [address] 03/28/2024 10:00 AM EDT Office Visit Hematology/Oncology at [address] [address] Heber Phillips MD [facility] HEMATOLOGY/[place] [address] Isabella Baker APRN [facility] [place]ICAL [place] [address] Scheduled Orders Name Type Priority Associated Diagnoses [...] Associated Diagnosis Comments CARDIAC CATHETERIZATION Routine 12/06/19 21 10:49 AM EDT HASHER MACHINE OPERATOR SCAN 10/15/2013 10:32 AM EDT HASHER MACHINE OPERATOR SCAN 10/12/2013 12:09 PM EDT EKG 12-LEAD Routine 10/11/2013 8:27 AM EDT Chest pain BMP W/FASTING GLUCOSE Routine 10/11/2013 5:19 AM EDT SCAN, PERIPHERAL BLOOD Routine 4 5:19 AM EDT DIFFERENTIAL, AUTOMATED Routine 10/12/19 14 5:19 AM EDT CARDIAC ENZYMES ([facility]/CGP) Routine 10/11/2013 5:19 AM EDT CBC (WITH DIFF) Routine 10/11/2013 5:19 AM EDT LIPID PANEL (REFLEX DIRECT LDL) Routine 10/11/2013 5:19 AM EDT EKG 12-LEAD Routine 10/10/2013 4:00 PM EDT CAD (coronary artery disease) CARDIAC ENZYMES ([facility]/CGP) STAT 10/10/2013 4:00 PM EDT EKG 12-LEAD [...] Routine 10/10/2013 Angina at rest CARDIAC ENZYMES ([facility]) STAT 10/09/2013 9:41 PM EDT MISCELLANEOUS LAB REQUEST Routine 10/09/2013 3:55 PM EDT CARDIAC ENZYMES ([facility]/CG[facility]) STAT 10/09/2013 3:55 PM EDT EKG 12-LEAD STAT 10/09/2013 3:22 PM EDT Chest pain documented in this encounter Results * Cardiac Catheterization (12/05/2020 10:49 AM EDT) Anatomical Region Laterality Modality Other Narrative 12/05/2020 10:49 AM EDT ?[facility] ? Cardiac Catheterization/Intervention Report ? Patient Name: Hieu Tillman. ? Procedure Date: 10/10/2013 ? A #: [id number] ? Primary Physician: Stevo Dalton ? Case #: [id number] ? File Name: [id number] ? Catheterization Order Number: [id number] ? [facility] ? Final Report [place], [place] ? Patient Name: ? Hieu Tillman ? ID#: ?[id number] ? : ?1955 ? Procedure Date: ? [...] Catheterization ?* Coronary Ultrasound ?* Coronary Flow [place] Measurement (FFR) ?* Coronary Angioplasty ?* Coronary [...] Class IV. ? Indications for Diagnostic Cath: ?[place] [employer] Society angina class was IV. ? [...] Fr EBU 4.0 guide ? utilizing an Roslyn 12 mm balloon with a maximum size [...] ??The lesion was predilated with a 2.50mm Roslyn 12 mm ? balloon with a maximum inflation pressure of 16 atmospheres. ? A premounted 3.00 x 20 mm Promus Premier (MISTY) was deployed ? with a maximum inflation pressure of 16 atmospheres. ? Following stent deployment, the lesion was dilated using a ? 3.50mm NC Quantum Roslyn 12 mm balloon with a maximum inflation [...] in the circumflex vessel using a volcano orutsararmiut eye ?catheter. This showed the stent was [...] IVUS # coronary and ?angioplasty-coronary. ? Stevo Dalton M.D. ? Electronically Signed by: Stevo Dalton M.D. ? Report Finalized: 10/10/2013 ??16:48 ? Report Last Ammended: 12/05/2020 ??10:43 ? Procedure Note Stevo Dalton MD - 12/05/2020 [facility] Cardiac Catheterization/Intervention Report Patient Name: Hieu Tillman Procedure Date: 10/10/2013 A #: [id number] Primary Physician: Stevo Dalton Case #: [id number] File Name: [id number] Catheterization Order Number: [id number] [facility] FinalReport [place], [place] Patient Name: Hieu Tillman ID#:[id number] :1955 Procedure Date: October 10, 2013 Case #: [id number] Room: 5 Case Physician: Stevo Dalton M.D. Start: 14:25 Fellow: José Miguel Gong M.D. Admission:10/09/2013 Discharge:10/11/2013 Referring Edin Messina M.D. Physicians: Joshua Kumari M.D. Procedures: * Coronary Angiography * Left Heart Catheterization * Coronary Ultrasound * Coronary Flow [place] Measurement (FFR) * Coronary Angioplasty * Coronary [...] ASA Class IV. Indications for Diagnostic Cath: [place] Cardiovascular Society angina class was IV. Technique: [...] 6 Fr EBU 4.0 guide utilizing an Roslyn 12 mm balloon with a maximum size [...] The lesion was predilated with a 2.50mm Roslyn 12mm balloon with a maximum inflation pressure of 16atmospheres. A premounted 3.00 x 20 mm Promus Premier (MISTY) wasdeployed with a maximum inflation pressure of 16 atmospheres. Following stent deployment, the lesion was dilated usinga 3.50mm NC Quantum Roslyn 12 mm balloon with a maximuminflation pressure [...] two area of the circumflex vessel with [employer] FFR wire. Initially the main circumflex was [...] performed in the circumflex vessel using a Magazinga eagleeye catheter. This showed the stent was [...] CARDIAC CATH ORDERAB LES * SCAN DOC: HASHER MACHINE OPERATOR (10/15/2013 10:32 AM EDT) Anatomical Region Laterality Modality Other Narrative 10/15/2013 10:35 AM EDT Procedure Note Provider, Scanning - 10/15/2013 10:32 AM EDT Scanning Provider MEDIA MGR SCAN EXT O RDR/RSLT * SCAN DOC: HASHER MACHINE OPERATOR (10/12/2013 12:09 PM EDT) Anatomical Region Laterality [...] (Bezet) 440 ms MUSE SYSTEM Calculated P [place] 71 degrees MUSE SYSTEM Calculated R [place] 67 degrees MUSE SYSTEM Calculated T [place] 73 degrees MUSE SYSTEM INTERPRETATION Normal sinus rhythm Low septal forces Otherwise normal ECG When compared with ECG of 10-OCT-2013 16:00, Questionabl e change in initial forces of Septal leads Confirmed by Joyce HIGUERA [facility] (49) on 10/11/2013 10:49:44 AM MUSE SYSTEM [...] MD HEMATOLOGY ORDERABLE S Performing Organization Address City/State/[facility] Co de Phone Number CERRENAN HSIEHENNIUM * Scan, Peripheral Blood (10/11/2013 5:19 AM EDT) Plat Estimate Normal CERNER MILLENNIUM RBC Morphology Normal CERNE R MILLENNIUM Blood specimen (specimen) 10/11/2013 5:19 AM EDT 10/11/2013 5:35 AM EDT Narrative Resulting Agency Comment Spec In Lab Mila Mccall MD HEMATOLOGY ORDERABLE S Performing Organization Address [facility] de Phone Number CERRENAN HSIEHENNIUM * (ABNORMAL) CBC (with Diff) (10/11/2013 5:19 [...] BMP w/fasting Glucose (10/11/2013 5:19 AM EDT) [facility] Glucose Fasting 140(H) 65 - 99 mg/dL [...] of Diabetes Mellitus, Position Statement from the [place] Diabetes Association. ??Diabetes Care, Volume 33, Supplement 1, Jun 2009 BUN 23(H) 10 - 20 mg/dL CERNER MILLENNIUM Creatinine 0.99 0.80 - 1.50 mg/dL CERNER MILLENNIUM Comment: Please note that the pediatric reference intervals supplied above were not validated at [facility]. Results from pediatric patients should be interpreted [...] BRYN SANCHEZ * (ABNORMAL) Lipid panel (fasting) (10/11/2013 5:19 AM EDT) Chol, Total 117 <=199 mg/dL BRYN Sharp CorporationMARTHAIUM Comment: Recommendations of the NCEP Adult Treatment Panel for the following risk cutoff thresholds for the [place] population: Desirable: <200 mg/dL Borderline High: 200-239 mg/dL High: > or = 240 mg/dL Triglycerides 92 <=149 mg/dL BRYN MILLMARTHAIUM Comment: Reference Range: Normal triglycerides: ??<150 mg/dL Borderline high: ??150-199 mg/dL High: ??200-499 mg/dL Very high: ??>zm=421 mg/dL DAO 2001; 285(19):8046-2408 HDL 32(L) >=40 mg/dL BRYN MILLMARTHAIUM Comment: Reference range: ??Low HDL: ?? < 40 mg/dL ??Normal: ?40-60 mg/dL ??Desirable: > 60 mg/dL DAO 2001; 285(19):6755-9822 LDL Cholesterol 67 <=99 mg/dL CER NER MILLENNIUM Comment: Reference range: ?? Optimal: ?<100 mg/dL ?? Near Optimal/Above Optimal: ?? 100-129 mg/dL ?? Borderline high: ?130-159 mg/dL ?? High: ? 160-189 mg/dL ?? Very high: ?>pr=461 mg/dL DAO 2001: 285(19):0552-0819 Chol/HDL Ratio 3.7 ratio KATHY HSIEHSAURABH Comment: A Cholesterol to HDL ratio below 4:1 is desirable. ??Studies suggest that increased CAD risk occurs at ratios above 5 for females and above 6 for men. ? [place] Heart Association ??(http://www.americanheart.org) ? Jeri Int Med, 1994; 121:641 ? AM J Med, 1998; 105(1A):48S Blood specimen (specimen) 10/11/2013 5:19 AM EDT 10/11/2013 5:35 AM EDT Narrative Resulting Agency Comment Spec In Lab Mila Mccall MD CHEMISTRY ORDERABLES BRYN SANCHEZ * Cardiac Enzymes (10/11/2013 5:19 AM EDT) Troponin-T <0.03 <=0.03 ng/mL BRYN SANCHEZ Comment: 0.03 ng/mL: Represents the 99th percentile upper reference limit for normals. >0.03 ng/mL: Elevated cardiac troponin T level indicative of myocardial damage. Diagnosis of acute, evolving or recent MN requires a typical rise and gradual fall [...] consensus document of the Joint Society of Cardiology/[place] College of Cardiology Committee for the redefinition of myocardial infarction. ??Journal of the [place] College of Cardiology 2000; 36: 959-969] CK, Total 53 0 - 200 unit/L [facility] Blood specimen (specimen) 10/11/2013 5:19 AM EDT 10/11/2013 5:35 AM EDT Narrative Resulting Agency Comment Spec In Lab Mila Mccall MD CHEMISTRY ORDERABLES Performing Organization Address [facility] de Phone Number [facility] МАРИЯBAN[facility] EST[facility] MEDICAL CENTERVirtuix * EKG 12 Lead (10/10/2013 4:00 PM EDT) Pathologist [facility] Ventricular rate 78 BPM MUSE SYSTEM Atrial Rate 78 BPM MUSE SYSTEM P-R Interval 154 ms MUSE SYSTEM QRS Duration 80 ms MUSE SYSTEM Q-T Interval 402 ms MUSE SYSTEM QTC Calculated (Bezet) 458 ms MUSE SYSTEM Calculated P [place] 76 degrees MUSE SYSTEM Calculated R [place] 60 degrees MUSE SYSTEM Calculated T [place] 79 degrees MUSE SYSTEM INTERPRETATION Normal sinus rhythm Normal ECG When compared with ECG of 10-OCT-2013 11:12, Non-specific change in ST segment in Lateral leads Nonspecific T wave abnormality no longer evident in Lateral leads Confirmed by Trevin Cook MD (49) on 10/10/2013 4:50:45 PM MUSE SYSTEM 10/10/2013 4:00 PM EDT 10/10/2013 4:50 PM EDT Mila Mccall MD ECG ORDERABLES Performing Organization Address [facility] Phone Number MUSE SYSTEM * Cardiac Enzymes (10/10/2013 4:00 PM EDT) [facility] Troponin-T <0.03 <=0.03 ng/mL [facility] Sharp CorporationBANNER ESTRELL[facility] MEDICAL CENTERVirtuix Comment: 0.03 ng/mL: Represents the 99th percentile upper reference limit for normals. >0.03 ng/mL: Elevated cardiac troponin T level indicative of myocardial damage. Diagnosis of acute, evolving or recent MN requires a typical rise and gradual fall [...] consensus document of the Joint Society of Cardiology/[place] College of Cardiology Committee for the redefinition of myocardial infarction. ??Journal of the [place] College of Cardiology 2000; 36: 959-969] CK, Total 59 0 - 200 unit/L BRYN SANCHEZ Blood specimen (specimen) 10/10/2013 4:00 PM EDT 10/10/2013 4:15 PM EDT Narrative Resulting Agency Comment Spec In Lab Mila Mccall MD CHEMISTRY ORDERABLES Performing Organization Address [facility] de Phone Number BRYN SANCHEZ * EKG 12 Lead (10/10/2013 11:12 AM EDT) Ventricular rate 82 BPM MUSE SYSTEM Atrial Rate 82 BPM MUSE SYSTEM P-R Interval 154 ms MUSE SYSTEM QRS Duration 82 ms MUSE SYSTEM Q-T Interval 372 ms MUSE SYSTEM QTC Calculated (Bezet) 434 ms MUSE SYSTEM Calculated P [place] 74 degrees MUSE SYSTEM Calculated R [place] 57 degrees MUSE SYSTEM Calculated T [place] 92 degrees MUSE SYSTEM INTERPRETATION Normal sinus rhythm Nonspecific ST and T wave abnormality Abnormal ECG When compared with ECG of 10-OCT-2013 07:22, Non-specific change in ST segment in Lateral leads Nonspecific T wave abnormality now evident in Lateral leads Confirmed by Jordon Cook MDence ([id number]) on 10/10/2013 3:22:44 PM MUSE SYSTEM 10/10/2013 11:1 2 AM EDT 10/10/2013 3:22 PM EDT Mila Mccall MD ECG ORDERABLES Performing Organization Address [facility] de Phone Number MUSE SYSTEM * NM myocardial perfusion - [...] (Bezet) 422 ms MUSE SYSTEM Calculated P [place] 74 degrees MUSE SYSTEM Calculated R [place] 66 degrees MUSE SYSTEM Calculated T [place] 81 degrees MUSE SYSTEM INTERPRETATION Normal sinus rhythm Normal ECG When compared with ECG of 09-OCT-2013 15:22, No significant change was found Confirmed by Jordon Cook MDence ([id number]) on 10/10/2013 1:41:41 PM MUSE SYSTEM [...] Lab Mila Mccall MD HEMATOLOGY ORDERABLE S CERRENAN HSIEHENNIUM * (ABNORMAL) BMP w/fasting Glucose (10/10/2013 4:06 AM EDT) Glucose Fasting 187(H) 65 - 99 mg/dL [...] of Diabetes Mellitus, Position Statement from the [place] Diabetes Association. ??Diabetes Care, Volume 33, Supplement 1, Jun 2009 BUN 29(H) 10 - 20 mg/dL CERNER MILLENNIUM Creatinine 1.09 0.80 - 1.50 mg/dL CERNER MILLENNIUM Comment: Please note that the pediatric reference intervals supplied above were not validated at [facility]. Results from pediatric patients should be interpreted [...] Mccall MD CHEMISTRY ORDERABLES BRYN SANCHEZ * NUCLEAR STRESS, CARDIOLOGY RESULTS (10/10/2013) Anatomical Region Laterality Modality Other Mila Mccall MD CARD TESTS W/SCANNED RESULTS * Cardiac Enzymes (10/09/2013 9:41 PM EDT) Troponin-T <0.03 <=0.03 ng/mL [employer] Comment: 0.03 ng/mL: Represents the 99th percentile upper reference limit for normals. >0.03 ng/mL: Elevated cardiac troponin T level indicative of myocardial damage. Diagnosis of acute, evolving or recent MN requires a typical rise and gradual fall [...] consensus document of the Joint Society of Cardiology/[place] College of Cardiology Committee for the redefinition of myocardial infarction. ??Journal of the [place] College of Cardiology 2000; 36: 959-969] CK, Total 78 0 - 200 unit/L [facility] CENTERRENAN [employer] Blood specimen (specimen) 10/09/2013 9:41 PM EDT 10/09/2013 9:45 PM EDT Narrative Resulting Agency Comment Spec In Lab Mila Mccall MD CHEMISTRY ORDERABLES BRYN SANCHEZ * Cardiac Enzymes (10/09/2013 3:55 PM EDT) Troponin-T <0.03 <=0.03 ng/mL [facility] [employer] Comment: 0.03 ng/mL: Represents the 99th percentile upper reference limit for normals. >0.03 ng/mL: Elevated cardiac troponin T level indicative of myocardial damage. Diagnosis of acute, evolving or recent MN requires a typical rise and gradual fall [...] consensus document of the Joint Society of Cardiology/[place] College of Cardiology Committee for the redefinition of myocardial infarction. ??Journal of the [place] College of Cardiology 2000; 36: 959-969] CK, Total 89 0 - 200 unit/L BRYN HSIEHMARTHAAZUL Blood specimen (specimen) 10/09/2013 3:55 PM EDT 10/09/2013 4:25 PM EDT Narrative Resulting Agency Comment Spec In Lab Mila Mccall MD CHEMISTRY ORDERABLES Performing Organization Address [facility] de Phone Number BRYN SANCHEZ * Miscellaneous Lab request (10/09/2013 3:55 PM EDT) [facility] Lab Result Request received in lab. BRYN МАРИЯMARTHAAZUL Blood specimen (specimen) 10/09/2013 3:55 PM EDT 10/09/2013 4:25 PM EDT Mila Mccall MD HEMATOLOGY ORDERABLE S Performing Organization Address [facility] Co de Phone Number BRYN SANCHEZ * EKG 12 Lead (10/09/2013 3:22 PM EDT) Pathologist [facility] Ventricular rate 61 BPM MUSE SYSTEM Atrial Rate 61 BPM MUSE SYSTEM P-R Interval 150 ms MUSE SYSTEM QRS Duration 82 ms MUSE SYSTEM Q-T Interval 410 ms MUSE SYSTEM QTC Calculated (Bezet) 412 ms MUSE SYSTEM Calculated P [place] 74 degrees MUSE SYSTEM Calculated R [place] 60 degrees MUSE SYSTEM Calculated T [place] 70 degrees MUSE SYSTEM INTERPRETATION Normal sinus rhythm with sinus arrhythmia Normal ECG When compared with ECG of 13-SEP-2013 07:14, Nonspecific T wave abnormality no longer evident in Lateral leads Confirmed by Trevin Cook MD ([id number]) on 10/10/2013 1:01:37 PM MUSE SYSTEM 10/09/2013 3:22 PM EDT 10/10/2013 1:01 PM EDT Mila Mccall MD ECG ORDERABLES MUSE SYSTEM documented in this encounter Visit Diagnoses Not on filedocumented in this encounter Administered Medications Inactive Administered Medications - up to 3 most recent administrations Medication Order MAR Action Action Date Dose Rate Site adenosine 90 mg in sodium chloride 0.9% 90 mL infusion (FOOD VENDOR) CONTINUOUS PRN, Starting on Wed10/10/13 at 1446, Until Wed10/10/13 at 1551, Cath (Intra-Procedure), Routine New Bag 10/10/2013 2:46 PM EDT 140 mcg/kg/min 588.8 mL/hr bivalirudin (ANGIOMAX) 250 mg in sodium chloride 0.9% 50 mL infusion (FOOD VENDOR) CONTINUOUS PRN, Starting on Wed10/10/13 at 1435, Until Wed10/10/13 at 1551, Cath (Intra-Procedure), Routine New Bag 10/10/2013 2:35 PM EDT 122.5 mg/hr 24.5 mL/hr bivalirudin (ANGIOMAX) injection ONCE PRN, Starting on Wed10/10/13 at 1438, Until Wed10/10/13 at 1551, Intra-Operative (Intra-Procedure), Routine Given 10/10/2013 2:33 PM EDT 52.5 mg fentaNYL 50mcg/mL injection ONCE PRN, Starting on Wed10/10/13 at 1417, Until Wed10/10/13 at 1551, Pain, Intra-Operative (Intra-Procedure), Routine Given 10/10/2013 2:58 PM EDT 25 mcg Given 10/10/2013 2:17 PM EDT 25 mcg lidocaine (XYLOCAINE) 10 mg/mL (1 %) injection ONCE PRN, Starting on Wed10/10/13 at 1422, Until Wed10/10/13 at 1551, Cath (Intra-Procedure), Routine Given 10/10/2013 2:22 PM EDT 100 mg midazolam (PF) (VERSED) 1 mg/mL injection ONCE PRN, Starting on Wed10/10/13 at 1417, Until Wed10/10/13 at 1551, Sleep, Cath (Intra-Procedure), Routine Given 10/10/2013 2:17 PM EDT 1 mg nitroGLYCerin 100 mcg/mL intracoronary dilution ONCE PRN, Starting on Wed10/10/13 at 1523, Until Wed10/10/13 at 1551, Cath (Intra-Procedure), Routine Given 10/10/2013 3:23 PM EDT 150 mcg documented in this encounter Active and Recently [...] Patient/family refused) 0948 (Given - Provider: Lisa Perez, BOB) aspirin EC tablet 81 mg (CANCELED) 81 mg, Oral, DAILY, First dose on Wed10/10/13 at 0900, Until Discontinued, Routine 0900 (Given - Provider: Cee Ernst RN) 0945 (Given - Provider: Lisa Perez, BOB) atorvastatin (LIPITOR) tablet 80 mg (CANCELED) 80 [...] refused) 0900 (Given - Provider: Cee Ernst RN)2130 (Given - Provider: Nancie Albert RN) 0949 [...] 0900 (Given - Provider: Cee Ernst RN) 0946 (Given - Provider: Lisa Perez RN) metoprolol succinate (TOPROL-XL) XL tablet 50 mg 50 mg, Oral, DAILY, First dose (after last modification) on Wed10/10/13 at 0900, Until Discontinued, Routine 0900 (Given - Provider: Cee Ernst RN) 0946 [...] refused) 0900 (Given - Provider: Cee Ernst RN)2130 (Given - Provider: Nancie Albert RN) 0948 [...] in sodium chloride 0.9% 90 mL infusion (FOOD VENDOR) (CANCELED) CONTINUOUS PRN, Starting on Wed10/10/13 at 1446, Until Wed10/10/13 at 1551, Cath (Intra-Procedure), Routine 1446 (New Bag - Provider: Aristides Paulino RN)1449 (Stopped - Provider: Irving Riley RN) bivalirudin (ANGIOMAX) 250 mg in sodium chloride 0.9% 50 mL infusion (FOOD VENDOR) (CANCELED) CONTINUOUS PRN, Starting on Wed10/10/13 at [...] Aristides Paulino RN)1458 (Given - Provider: Aristides Paulino, BOB) fentaNYL 50mcg/mL injection (CANCELED) 25 mcg, Intravenous, [...] Patch documented in this encounter Care Teams Social Psychologist Relationship Specialty Start Date End Date Edin Messina MD [address] [place] [address] PCP - General 10/02/11 01/11/22 documented as of this encounter
--- OUTSIDE RECORDS SUMMARY | 2024-01-05 02:50 | XMS_ITS | Encounter Summary ---
Author Organization Formerly [facility] Address [facility] [place] [address] Care Team Providers Care Cap And Stud Machine Operator Name Role Phone Nataliya Messina MD Primary Care Provider [phone] Reason for Visit * Reason Comments Carotid Stenosis Encounter Details Date Type Department Care Team (Late st Contact Info) Description 02/21/2013 1:30 PM EDT Follow-[place] [address] Yvonne Wing, DEVANTE [facility] [place] [address] PVD (peripheral vascular disease) (Primary Dx); Carotid stenosis Discharge Disposition: Home Social History Tobacco Use Types Packs/Day Years Used Date Smoking Tobacco: Every Day Cigarettes Alcohol Use Standard Drinks/Week Comments No 0 (1 standard drink = 0.6 oz pur e alcohol) Sex and Gender Information Value Date Recorded Sex Assigned at Not on file Gender Identity Not on file Sexual Orientation Not on file documented as of this encounter Last Filed Vital Signs Vital Sign Reading Time Taken Comments Blood Pressure 126/70 02/21/2013 1:09 PM EDT Pulse 78 02/21/2013 1:09 PM EDT Temperature - - Respiratory Rate - - Oxygen Saturation - - Inhaled Oxygen Concentration - - Weight 69.9 kg (154 lb) 02/21/2013 1:09 PM EDT Height - - Body Mass Index 24.86 01/18/2013 3:07 PM EDT documented in this encounter Progress Notes * Yvonne Wing, DEVANTE - 02/21/2013 12:57 PM EDT F/u carotid duplex. Doing well. Denies claudication, rest pain, tissue loss. Walks 2 mile per day at times. Denies SOB,TIA'S. C/o chest pain 1-2 times per weeks with no associated nausea, SOB, diaphoresis. He has NTG he takes which helps, if he does not take NTG discomfort lasts 20-30 minutes. No associated aggravating factors. s/p R JAYA stent 12/07/11 PE General: NAD, appears well Neuro: Alert and oriented, motor sensory grossly intact Lungs: CTA Heart: RRR Abd: Soft, NT, ND, no palpable pulsatile masses Extremity - Combs, warm, no ulceration, brisk capillary refill, no edema Vascular: R L Carotid 2/2 bruit (y) 2/2 bruit (n) Radial 2/2 2/2 Femoral 2/2 2/2 Popliteal -/2 -/2 DP -/2 -/2 PT -/2 -/2 Carotid duplex ICA Proximal, Right PSV (cm/s): 352 EDV (cm/s): 86 ICA/CCA: 4.6 Plaque Structure: Echogenic Plaque Surface: Irregular %Stenosis: 50-79% ICA Distal, Right PSV (cm/s): 102 EDV (cm/s): 28 ICA/CCA: 1.3 CCA Distal, Right PSV (cm/s): 77 EDV (cm/s): 15 CCA Middle, Right %Stenosis: <50% CCA Proximal, Right PSV (cm/s): 119 EDV (cm/s): 16 External Carotid Artery, Right PSV (cm/s): 183 EDV (cm/s): 18 %Stenosis: Near 50% Vertebral, Right PSV (cm/s): 70 EDV (cm/s): 21 ICA Proximal, Left PSV (cm/s): 122 EDV (cm/s): 35 ICA/CCA: 1.4 Plaque Structure: Echogenic Plaque Surface: Irregular %Stenosis: 16-49% ICA Distal, Left PSV (cm/s): 123 EDV (cm/s): 47 ICA/CCA: 1.4 CCA Distal, Left PSV (cm/s): 85 EDV (cm/s): 25 CCA Middle, Left %Stenosis: Minimal CCA Proximal, Left PSV (cm/s): 110 EDV (cm/s): 21 External Carotid Artery, Left PSV (cm/s): 167 EDV (cm/s): 27 %Stenosis: <50% Vertebral, Left PSV (cm/s): 62 EDV (cm/s): 19 Interpretation: RIGHT: There is smooth plaque in the mid common carotid artery causing a 20-30% stenosis by electronic calipers. There is bulky irregular plaque in the proximal internal carotid artery causing 50-79% stenosis when compared to the more distal internal carotid artery. Significant progression of stenosis compared to the previous exam. The bifurcation level is in the mid neck. LEFT: A thin layer of circumferential plaque is present in the common carotid artery causing minimal stenosis. There is bulky irregular plaque in the proximal internal carotid artery causing 16-49% stenosis when compared to the more distal internal carotid artery. No significant change compared to previous exam. The bifurcation level is in the mid neck. Vertebral Artery Data: Patent vertebral arteries with normal antegrade Doppler waveforms and velocities bilaterally. Assessment/Plan: 57 yo male s/p R JAYA stent 12/06/12. Known carotid disease. HUMERA with progression to 50-79% stenosis, LICA stable 16-49% stenosis. Continue ASA and statin. RTC 6 months with carotid duplex and NALDO's documented in this encounter Plan of Treatment Upcoming Encounters Date Type Department Care Team (Late st Contact Info) Description 01/10/2024 7:45 AM EDT Appointment Hematology [place] [address] 01/21/2024 10:[address] [place] [address] Heber Phillips MD [facility] HEMATOLOGY/[place] [address] 03/28/2024 10:00 AM EDT Office Visit Hematology/Oncology at [address] [address] Heber Phillips MD [facility] DR HEMATOLOGY/[place] [address] Isabella Baker APRN [facility] [place] [address] documented as of this encounter Results * NALDO, legs, multiple levels (02/20/2014 1:26 PM EDT) VB Text Report Department: Vascular Surgery Lab Patient: [id number] (BRITTA SAEED) CPT Code: 34152 ICD-9: 440.21 Referring Physician: KRISTAN PATRICK Indication: ?? F/U PVOD ICD9 Diagnosis Code: 440.21 Diabetes Mellitus: ??No Definitions: ?? NALDO = Ankle / Brachial Systolic Pressure Index, TBI = Toe / Brachial Systolic Pressure Index Findings: Right ?Pressure (mm Hg) ?? NALDO ??Waveform ? Brachial Artery ?118 ? Dorsalis Pedis (Ankle) Artery ?76 ?0.64 ??Cataño-Biphasic ?? Posterior Tibial (Ankle) Artery ??90 ?0.76 ??Cataño-Biphasic ?? Left ? Pressure (mm Hg) ?? [...] Text Report Department: Vascular Surgery Lab Patient: [id number] (BRITTA SAEED) CPT Code: 84848 ICD-9: 433.10 Referring Physician: KRISTAN PATRICK Indication: [...] encounter Visit Diagnoses Diagnosis PVD (peripheral vascular disease)- Primary Peripheral vascular disease, unspecified Carotid stenosis Occlusion and stenosis of carotid artery without mention of cerebral infarction documented in this encounter Care Teams Cap And Stud Machine Operator Relationship Specialty Start Date End Date Nataliya Messina MD [address] [place] [address] PCP - General 10/02/11 01/11/22 documented as of this encounter
--- OUTSIDE RECORDS SUMMARY | 2024-01-05 02:50 | XMS_ITS | Encounter Summary ---
Author Organization Formerly [facility] [place] [address] Care Team Providers Care Tennis Coach Name Role Phone Nataliya Messina MD Primary Care Provider [phone] Encounter Details Date Type Department Care Team (Late st Contact Info) Description 01/01/2011 [place] [phone] Nataliya Messina MD [address] [place] [address] [id number] Social History Tobacco Use Types Packs/Day Years Used Date Smoking Tobacco: Never Assessed Sex and Gender Information Value Date Recorded Sex Assigned at Not on file Gender Identity Not on file Sexual Orientation Not on file documented as of this encounter Plan of Treatment Upcoming Encounters Date Type Department Care Team (Late st Contact Info) Description 01/10/2024 7:45 AM EDT Appointment Hematology [place] [address] 01/21/2024 10:[address] [place] [address] Heber Phillips MD [facility] DR HEMATOLOGY/[place] [address] 03/28/2024 10:00 AM EDT Office Visit Hematology/Oncology at [address] [address] Heber Phillips MD [facility] DR HEMATOLOGY/[place] [address] Isabella Baker APRN [facility] [place] [address] documented as of this encounter Procedures Procedure Name Priority Date/Time Associated Diagnosis Comments FILM LIBRARY STORAGE ONLY DX CHEST Routine 01/01/2011 11:16 AM EDT documented in this encounter Results * FILM LIBRARY- STORAGE ONLY DX CHEST (01/01/2011 11:16 AM EDT) 01/01/2011 11:1 6 AM EDT Narrative [facility] - 12/15/2013 1:53 AM EDT This is a non-reportable exam. Procedure Note Richard Lozada - 12/15/2013 This is a non-reportable exam. Nataliya Messina MD IMG FILM LIBRARY OR DERABLES Performing Organization Address City/State/[facility] Co de Phone Number [facility] [address] [facility] [address] documented in this encounter Visit Diagnoses Not on filedocumented in this encounter Care Teams Tennis Coach Relationship Specialty Start Date End Date Nataliya Messina MD [address] [place] [address] PCP - General 10/02/11 01/11/22 documented as of this encounter
--- OUTSIDE RECORDS SUMMARY | 2024-01-05 02:50 | XMS_ITS | Encounter Summary ---
Author Organization Formerly [facility] Address [facility] [place] [address] Care Team Providers Care Manager Intensive Care Unit Name Role Phone Nataliya Messina MD Primary Care Provider [phone] Encounter Details Date Type Department Care Team (Late st Contact Info) Description 11/26/2011 Orders [place] [phone] Milli Dempsey RN Iliac artery occlusion (Primary Dx) Social History Tobacco Use Types [...] AM EDT Appointment Hematology [place] [address] 01/21/2024 10:[address] [place] [address] Heber Phillips MD [facility] HEMATOLOGY/[place] [address] 03/28/2024 10:00 AM EDT Office Visit Hematology/Oncology at [address] [address] Heber Phillips MD [facility] DR HEMATOLOGY/[place] [address] Isabella Baker APRN [facility] [place] [address] documented as of this encounter Visit Diagnoses Diagnosis 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
--- OUTSIDE RECORDS SUMMARY | 2024-01-05 02:50 | XMS_ITS | Encounter Summary ---
Author Organization [facility] [place] [address] Care Team Providers Care Inserter Name Role Phone Nataliya Messina MD Primary Care Provider Encounter Details Date Type Department Care Team (Late st Contact Info) Description 10/09/2011 External Results XRay at [address] [place] [address] Nataliya Messina MD [address] [place] [address] [id number] Social History Tobacco Use Types Packs/Day Years Used Date Smoking Tobacco: Every Day Alcohol Use Standard Drinks/Week Comments No 0 [...] AM EDT Appointment Hematology [place] [phone] 01/21/2024 10:[address] [place] [address] Heber Phillips MD [facility] HEMATOLOGY/[place] [address] 03/28/2024 10:00 AM EDT Office Visit Hematology/Oncology at [address] [address] Heber Phillips MD [facility] DR HEMATOLOGY/[place] [address] Isabella Baker APRN [facility] [place] [address] documented as of this encounter Procedures Procedure Name Priority Date/Time Associated Diagnosis Comments MRI/MRA SCAN Routine 08/13/2011 documented in this encounter Results * Scan Doc: MRI/MRA (08/13/2011) Anatomical Region Laterality Modality Other Nataliya Messina MD MEDIA MGR SCAN EXT ORDR/RSLT documented in this encounter Visit Diagnoses Not on filedocumented in this encounter Care Teams Inserter Relationship Specialty Start Date End Date Nataliya Messina MD [address] [place] [address] PCP - General 10/02/11 01/11/22 documented as of this encounter
--- OUTSIDE RECORDS SUMMARY | 2024-01-05 02:50 | XMS_ITS | Encounter Summary ---
[place] [address] Care Team Providers Care Washhouse Hand Name Role Phone Nataliya Messina MD Primary Care Provider [phone] Reason for Visit * Reason Comments Other Encounter Details Date Type Department Care Team (Late st Contact Info) Description 10/07/2011 Telephone [place] [address] Yolande Perez RN Other Social History Tobacco Use Types [...] encounter Miscellaneous Notes * Telephone Encounter - Yolande Perez RN - 10/07/2011 9:56 AM EDT Kanika Coon from [facility] called the Pain Management Center 10/06/11 with questions regarding Mr. Tillman's work restrictions. He had a lumbar epidural steroid injection (LESI) by Dr. Briscoe 10/02/11. I spoke with Dr. Briscoe this morning. She stated, Usual instructions related to the LESI only. She is not addressing his work restrictions. A return call was made 10/07/11 at 9:[address] Briscoe was left for Ms. Coon and the number to call back the Pain Management nurse was left if she had any further questions. 11:21 am I received a return message from Kanika Coon stating that she sent a letter via fax ([phone]) for Dr. Briscoe to sign and fax back, summarizing his visit for the LESI. Her only question is Does Mr. Tillman have any follow-up visits with Dr. briscoe? 4:20 pm I called and advised Ms. Coon that there were no scheduled visits for Mr. Tillman to see Dr. Briscoe. documented in this encounter Plan of Treatment Upcoming Encounters Date Type Department Care Team (Late st Contact Info) Description 01/10/2024 7:45 AM EDT Appointment Hematology [place] [address] 01/21/2024 10:[address] [place] [address] Heber Phillips MD [facility] DR HEMATOLOGY/[place] [address] 03/28/2024 10:00 AM EDT Office Visit Hematology/Oncology at [address] [phone] Heber Phillips MD [facility] DR HEMATOLOGY/[place] [address] Isabella Baker APRN [facility] [place] [address] documented as of this encounter Visit Diagnoses Not on filedocumented in this encounter Care Teams Washhouse Hand Relationship Specialty Start Date End Date Nataliya Messina MD [address] [place], [place] [address]Y [address] [place] [address] PCP - General 10/02/11 01/11/22 documented as of this encounter
--- OUTSIDE RECORDS SUMMARY | 2024-01-05 02:50 | XMS_ITS | Encounter Summary ---
Author Organization [facility] Address [facility] [place] [address] Care Team Providers Care Plant Production Worker Name Role Phone Nataliya Messina MD Primary Care Provider [phone] Reason for Visit * Reason Onset Date Comments Advice Only 09/11/2013 Transfer request Encounter Details Date Type Department Care Team (Late st Contact Info) Description 09/11/2013 Telephone Cardiology at [address] [address] Francisco Ferguson MD [facility] [place] [address] Advice Only (Transfer request) Social History Tobacco Use Types Packs/Day Years [...] encounter Miscellaneous Notes * Telephone Encounter - Francisco Ferguson - 09/11/2013 10:35 AM EDT Telephone Note Caller: Dr. Bro, [facility] ED Reason: Transfer request Discussion: 58 yo male patient w/ a PMH significant for PVD, HLD, smoking and no CAD presents to his PCP with chest pains. He has been having angina quality chest pains for 1 year relieved by 1 nitro. Over the past 2 months, the pains have been becoming more frequent. He went to his PCP today for a separate issue, but had chest pain when walking in. An ECG at that time showed dynamic ST depressions (3 mm) inleads V4-V6. The ST segements resolved after nitro and when his pain improved. The patient has never been cathed before, but has PVD stents in place. So far, enzymes are negative (0.04) and ECG has returned to baseline. HR is 66, BP is normal per report. A/P: Unstable angina in a high risk patient. ACS protocol but instructed to hold plavix, as 3VD is high risk in this patient given history of PVD, HLD and smoking. documented in this encounter Plan of Treatment Upcoming Encounters Date Type Department Care Team (Late st Contact Info) Description 01/10/2024 7:45 AM EDT Appointment Hematology [place] [address] 01/21/2024 10:[address] [place] [address] Heber Phillips MD [facility] DR HEMATOLOGY/[place] [address] 03/28/2024 10:00 AM EDT Office Visit Hematology/Oncology at [address] [address] Heber Phillips MD [facility] DR HEMATOLOGY/[place] [address] Isabella Baker APRN [facility] [place] [address] documented as of this encounter Visit Diagnoses Not on filedocumented in this encounter Care Teams Plant Production Worker Relationship Specialty Start Date End Date Nataliya Messina MD [address] [place], [place] [address]Y [address] [place] [address] PCP - General 10/02/11 01/11/22 documented as of this encounter
--- OUTSIDE RECORDS SUMMARY | 2024-01-05 02:50 | XMS_ITS | Encounter Summary ---
[facility] Address [facility] [place] [address] Care Team Providers Care Kiln Stacker Name Role Phone Edin Messina MD Primary Care Provider Reason for Visit * Reason Comments Sciatica Encounter Details Date Type Department Care Team (Latest Contact Info) Description 10/02/2011 9:30 AM EDT Procedure [place] [address] Missy Manley MD [facility] [place] [address] Sciatica (Primary Dx) Discharge Disposition: Home Social History Tobacco Use [...] Sign Reading Time Taken Comments Blood Pressure 170/102 10/02/2011 8:46 AM EDT Pulse 102 10/02/2011 8:46 AM EDT Temperature - - Respiratory Rate - - Oxygen Saturation 97% 10/02/2011 8:46 AM EDT Inhaled Oxygen Concentration - - Weight - - Height - - Body Mass Index - - documented in this encounter Patient Instructions * Patient Instructions* Deepa Quintero RN - 10/02/2011 8:49 AM EDT Pain Management Center Discharge Instructions: You were seen by Dr. Missy Manley MD who performed lumbar epidural steroid injection. [x] You may resume your normal activities: tomorrow. You may shower today. DO NOT tub bathe, use whirlpools, hot tubs or pool therapy for 2 days. RemoveBand-Aid(s) later today/tomorrow. Do not drive until tomorrow. Use caution walking/climbing stairs as you may be unsteady on your feet. You may use your usual medications, including pain medications, as directed, unless otherwise instructed. You may use an ice pack as needed for the first 24 hours, on for 20 minutes then off for 20 minutes. Do not apply heat today. Attempt to empty your bladder 4-6 hours after your procedure. You received the following medications: Depo-Medrol 120 mg, Lidocaine and Omnipaque (contrast dye). During regular business hours, please phone the Pain Management Center at for appointments or with any questions or if the following or other troubling symptoms develop: 1) Prolonged dizziness or weakness (more than 1 day). 2) Localized swelling, redness or drainage at the injection site(s). 3) Temperature of 101 degrees that lasts for more than 4 hours. After 5 PM or on weekends, call and ask for Pain Clinic provider on-call. If you are unable to reach the Pain Management Center and have a complication, please call your Primary Care Provider or proceed to your local emergency department. Deepa Quintero RN BSN documented in this encounter Progress Notes * Deepa Quintero RN - 10/02/2011 8:35 AM EDT Pre-Procedure Screening Questions: 1. Status: No 2. 3. Patient states they have a dumpcart driver to transport after procedure? Yes 4. Patient taking antibiotics at present? No 5. NPO per Pain Management Center protocol? No 6. 7. Patient diabetic: No __ borderline (not treated with medications) __ managed with oral medications __ managed with injected medications 8. Patient routinely taking anticoagulants ? No Date stopped Current INR Patient Vital Signs documented in Doc Flowsheets associated with this encounter. Patient Discharge Instructions were reviewed with patient and copy provided to patient. documented in this encounter Procedure Notes * Missy Manley MD - 10/02/2011 8:51 AM EDTAssociated Order(s): EPIDURAL STEROID INJECTION Procedure(s): EPIDURAL STEROID INJECTION Pre-Procedure Diagnose(s): Sciatica Lumbar Epidural Steroid Injection Separate and identifiable procedure Date of Service: 10/02/2011 Patient: Hieu Tillman Provider: MISSY MANLEY MD Hieu Tillman has been referred to the Pain Management Center for lumbar epidural steroid injection. COMMENTS: Referring provider: MISSY MANLEY MD Pain location: Low back and right leg pain Bowel or bladder changes: urinary incontinence, not new Weakness: Right leg Numbness: right foot IVP allergy Mr. Tillman was interviewed and the medical record reviewed. There were no medical, pharmacologic, radiographic or other structural contraindications to attempting fluoroscopically guided epidural steroid injection. Risks and expected side effects as well as potential benefit of the procedure were reviewed with Mr. Tillman, and his voiced concerns addressed. The printed consent form was signed and witnessed. Standard time-out procedure was performed. Mr. Tillman was placed in the prone position on the fluoroscopy table and automated blood pressure cuffand pulse oximeter applied. The skin entry point for entering the epidural space by a right interlaminar approach at L5-S1 was identified under fluoroscopy and marked. Following thorough Chlorhexadine preparation of the skin and draping and 1% lidocaine infiltration of the skin entry point and subcutaneous tissues, an 18 gauge Tuohy needle was placed under fluoroscopic guidance and with loss of resistance technique into the epidural space. Upon needle placement and loss of resistance there were no paresthesiae or return of blood or CSF through the needle. No Omnipaque 240 were injected. Confirmed on the A/P and lateral. 120 mg of Depomedrol followed by 1 ml sterile normal saline were injected through the needle with no unusual discomfort expressed by Mr. Tillman. Mr. Tillman's vital signs were stable throughout the procedure and were as recorded in the docflowsheetby the nursing staff. If given, dosages of intravenous drugs for anxiolysis and analgesia were documented in MAR. Follow up plans and appointments were discussed with the Mr. Tillman. Post procedure instruction was given as documented in nursing documentation and having met discharge criteria, he was discharged fromthe Pain Management Center. COMMENTS: No apparent complications Repeat prn Follow-up with MISSY MANLEY MD prn MISSY MANLEY MD CC: EDIN MESSINA MD @PCPADD@ documented in this encounter Miscellaneous Notes * Miscellaneous - Thaddeus, Stitch Bonding Machine Tender Helper - 10/07/2011 11:13 PM EDT documented in this encounter Plan of Treatment Upcoming Encounters Date Type Department Care Team (Late st Contact Info) Description 01/10/2024 7:45 AM EDT Appointment Hematology [place] [address] 01/21/2024 10:[address] [place] [address] Heber Phillips MD [facility] [address] HEMATOLOGY/[place] [address] 03/28/2024 10:00 AM EDT Office Visit Hematology/Oncology at [address] [address] Heber Phillips MD [facility] [address] HEMATOLOGY/[place] [address] Isabella Baker APRN [facility] [place] [address] documented as of this encounter Procedures Procedure Name Priority Date/Time Associated Diagnosis Comments EPIDURAL STEROID INJECTION Routine 10/02/2011 8:53 AM EDT Sciatica documented in this encounter Results * EPIDURAL STEROID INJECTION (10/02/2011 8:53 AM EDT) Narrative Missy Manley MD - 10/02/2011 8:53 AM EDT Lumbar Epidural Steroid Injection Separate and identifiable procedure Date of Service: ??10/02/2011 Patient: ??Hieu Tillman ?? Provider: ??MISSY MANLEY MD ?? Hieu Tillman has been referred to the Pain Management Center for lumbar epidural steroid injection. ?? COMMENTS: Referring provider: ??MISSY MANLEY MD Pain location: ??Low back and right leg pain Bowel or bladder changes: urinary incontinence, not new Weakness: ??Right leg Numbness: right foot IVP allergy Mr. Tillman was interviewed and the medical record reviewed. ??There were no medical, pharmacologic, radiographic or other structural contraindications to attempting fluoroscopically guided epidural steroid injection. ??Risks and expected side effects as well as potential benefit of the procedure were reviewed with Mr. Tillman, and his voiced concerns addressed. ??The printed consent form was signed and witnessed. ??Standard time-out procedure was performed. Mr. Tillman was placed in the prone position on the fluoroscopy table and automated blood pressure cuff and pulse oximeter applied. ??The skin entry point for entering the epidural space by a right interlaminar approach at L5-S1 was identified under fluoroscopy and marked. ?? Following thorough Chlorhexadine preparation of the skin and draping and 1% lidocaine infiltration of the skin entry point and subcutaneous tissues, an 18 gauge Tuohy needle was placed under fluoroscopic guidance and with loss of resistance technique into the epidural space. ??Upon needle placement and loss of resistance there were no paresthesiae or return of blood or CSF through the needle. ??No Omnipaque 240 were injected. ??Confirmed on the A/P and lateral. ??120 mg of Depomedrol followed by 1 ml sterile normal saline were injected through the needle with no unusual discomfort expressed by ??Mr. Tillman. Mr. Tillman's vital signs were stable throughout the procedure and were as recorded in the docflowsheet by the nursing staff. ??If given, dosages of intravenous drugs for anxiolysis and analgesia were documented in MAR. Follow up plans and appointments were discussed with the Mr. Tillman. ??Post procedure instruction was given as documented in nursing documentation and having met discharge criteria, he was discharged from the Pain Management Center. COMMENTS: No apparent complications Repeat prn Follow-up with MISSY MANLEY MD prn MISSY MANLEY MD CC: EDIN MESSINA MD @PCPADD@ Procedure Note Missy Manley MD - 10/02/2011 8:51 AM EDT Lumbar Epidural Steroid Injection Separate and identifiable procedure Date of Service: 10/02/2011 Patient: Hieu Tillman Provider: MISSY MANLEY MD Hieu Tillman has been referred to the Pain Management Center for lumbarepidural steroid injection. COMMENTS: Referring provider: MISSY MANLEY MD Pain location: Low back and right leg pain Bowel or bladder changes: urinary incontinence, not new Weakness: Right leg Numbness: right foot IVP allergy Mr. Tillman was interviewed and the medical record reviewed. There were nomedical, pharmacologic, radiographic or other structural contraindicationsto attempting fluoroscopically guided epidural steroid injection. Risksand expected side effects as well as potential benefit of the procedurewere reviewed with Mr. Tillman, and his voiced concerns addressed. Theprinted consent form was signed and witnessed. Standard time-outprocedure was performed. Mr. Tillman was placed in the prone position on the fluoroscopy table andautomated blood pressure cuff and pulse oximeter applied. The skin entrypoint for entering the epidural space by a right interlaminar approach atL5-S1 was identified under fluoroscopy and marked. Following thorough Chlorhexadine preparation of the skin and draping and1% lidocaine infiltration of the skin entry point and subcutaneoustissues, an 18 gauge Tuohy needle was placed under fluoroscopic guidanceand with loss of resistance technique into the epidural space. Uponneedle placement and loss of resistance there were no paresthesiae orreturn of blood or CSF through the needle. No Omnipaque 240 wereinjected. Confirmed on the A/P and lateral. 120 mg of Depomedrolfollowed by 1 ml sterile normal saline were injected through the needlewith no unusual discomfort expressed by Mr. Tillman. Mr. Tillman's vital signs were stable throughout the procedure and were asrecorded in the docflowsheet by the nursing staff. If given, dosages ofintravenous drugs for anxiolysis and analgesia were documented in AUG. Follow up plans and appointments were discussed with the Mr. Tillman. Postprocedure instruction was given as documented in nursing documentation andhaving met discharge criteria, he was discharged from the [facility]. COMMENTS: No apparent complications Repeat prn Follow-up with MISSY MANLEY MD prn MISSY MANLEY MD CC: EDIN MESSINA MD @PCPADD@ Missy Manley MD NEUROLOGY ORDERA BLES documented in this encounter Visit Diagnoses Diagnosis Sciatica- Primary documented in this encounter Administered Medications Inactive Administered Medications - up to 3 most recent administrations Medication Order MAR Action Action Date Dose Rate Site methylPREDNISolone acetate (depo-MEDROL) injection 120 mg 120 mg, Epidural, ONCE, 1 dose, On Wed10/02/11 at 0900, Routine Given 10/02/2011 9:00 AM EDT 120 mg documented in this encounter Care Teams Kiln Stacker Relationship Specialty Start Date End Date Edin Messina MD [address] [place] [address] PCP - General 10/02/11 01/11/22 documented as of this encounter
--- OUTSIDE RECORDS SUMMARY | 2024-01-05 02:50 | XMS_ITS | Encounter Summary ---
Author Organization [facility] Address [address] [place] [address] Care Team Providers Care Construction Site Crossing Guard Name Role Phone Unknown, Provider Primary Care Provider Encounter Details Date Type Department Care Team (Late st Contact Info) Description 01/22/2021 Lab Requisition [facility] Pathology & Laboratory Medicine - [facility] [address] [place] [address] Outr Resulting Lab, Provider Social History Tobacco Use Types Packs/Day Years Used Date Smoking Tobacco: Never Assessed Interpersonal Safety Answer Date Record ed Physically Hurt Never 01/21/2020 Verbally Threaten Not on file 01/21/2020 Sex and Gender Information Value Date Recorded Sex Assigned at Not on file Gender Identity Not on file Sexual Orientation Not on file documented as of this encounter Plan of Treatment Not on file documented as of this encounter Procedures Procedure Name Priority Date/Time Associated Diagnosis Comments SPEP, INCLUDES QUANTITATION OF MONOCLONAL SPIKE PERFORMABLE Today 01/22/2021 10:10 EDT SPEP, INCLUDES QUANTITATION OF MONOCLONAL SPIKE Routine 01/22/2021 10:10 EDT PROTEIN, TOTAL Today 01/22/2021 10:10 EDT HAPTOGLOBIN Routine 01/22/2021 10:10 EDT documented in this encounter Results * (ABNORMAL) SPEP, INCLUDES QUANTITATION OF MONOCLONAL SPIKE PERFORMABLE (01/22/2021 10:10 EDT) Albumin % 57.2 55.8 - 66.1 % 01/23/2021 13:51 EDT [facility] Alpha-1 % 5.7(H) 2.9 - 4.9 % 01/23/2021 13:51 EDT [facility] Alpha-2 % 11.2 7.1 - 11.8 % 01/23/2021 13:51 EDT [facility] Beta % 13.0 8.4 - 13.1 % 01/23/2021 13:51 [facility] Gamma % 12.9 11.1 - 18.8 % 01/23/2021 13:51 T [facility] SPEP Comment No apparent monoclonal protein seen on serum electrophoresis 01/23/2021 13:51 [facility] Comment:See scanned/suppleme ntary report. Total Protein 6.9 6.3 - 8.2 g/dL 01/23/2021 13:51 EDT [facility] Blood VENOUS BLOOD / Unknown 01/22/2021 10:10 EDT 01/22/2021 15:33 EDT Provider Outr Resulting Lab CHEMISTRY & BLOOD GAS ORDERABLES Performing Organization Address [facility] Co de Phone Number [facility] [address] [place] [address] * PROTEIN, TOTAL (01/22/2021 10:10 EDT) Blood VENOUS BLOOD / Unknown 01/22/2021 10:10 EDT 01/22/2021 15:33 EDT Provider Outr Resulting Lab CHEMISTRY & BLOOD GAS ORDERABLES [facility] [address] [place] [address] * HAPTOGLOBIN (01/22/2021 10:10 EDT) Haptoglobin 183 32 - 197 mg/dL 01/23/2021 9:28 EDT [facility] Blood VENOUS BLOOD / Unknown 01/22/2021 10:10 EDT 01/22/2021 15:33 EDT Provider Outr Resulting Lab CHEMISTRY & BLOOD GAS ORDERABLES [facility] [address] [place] [address] documented in this encounter Visit Diagnoses Not on filedocumented in this encounter Care Teams Construction Site Crossing Guard Relationship Specialty Start Date End Date Unknown, Provider, PCP - General 04/26/15 documented as of this encounter
--- OUTSIDE RECORDS SUMMARY | 2024-01-05 02:50 | XMS_ITS | Encounter Summary ---
Author Organization [facility] Address [facility] [place] [address] Care Team Providers Care Ballet Master/Mistress Name Role Phone Nataliya Messina MD Primary Care Provider [phone] Reason for Visit * Reason Comments Follow-up BLE Encounter Details Date Type Department Care Team (Late st Contact Info) Description 01/18/2013 3:30 PM EDT Follow-[place] [address] Yvonne Wing APRN [facility] [place] [address] PVD (peripheral vascular disease) (Primary Dx); Carotid [...] Sign Reading Time Taken Comments Blood Pressure 152/82 01/18/2013 3:09 PM EDT rig ht arm Pulse 102 01/18/2013 3:07 PM EDT Temperature - - Respiratory Rate - - Oxygen Saturation 95% 01/18/2013 3:07 PM EDT Inhaled Oxygen Concentration - - Weight 69.9 kg (154 lb) 01/18/2013 3:07 PM EDT Height 167.6 cm (5' 6) 01/18/2013 3:07 PM EDT Body Mass Index 24.86 01/18/2013 3:07 PM EDT documented in this encounter Progress Notes * Yvonne Wing APRN - 01/18/2013 3:04 PM EDT F/u NALDO s/p R JAYA stent 12/07/11 Doing well. No complaints. Denies claudication, rest pain, tissue loss. Walks 2 mile per day. Denies SOB, TIA'S, chest pain PE General: NAD, appears well Neuro: Alert and oriented, motor sensory grossly intact Lungs: CTA Heart: RRR Abd: Soft, NT, ND, no palpable pulsatile masses Extremity - [place], warm, no ulceration, brisk capillary refill, no edema Vascular: R L Carotid 2/2 bruit (y) 2/2 bruit (n) Radial 2/2 2/2 Femoral 2/2 2/2 Popliteal 2/2 2/2 DP 2/2 2/2 PT 2/2 2/2 NALDO's Right Pressure (mm Hg) NALDO Waveform Brachial Artery 148 Dorsalis Pedis (Ankle) Artery 88 0.59 Biphasic Posterior Tibial (Ankle) Artery 89 0.60 Biphasic Left Pressure (mm Hg) NALDO Waveform Brachial Artery 140 Dorsalis Pedis (Ankle) Artery 91 0.61 Biphasic Posterior Tibial (Ankle) Artery 90 0.61 Biphasic Interpretation: RIGHT: Moderate lower extremity arterial occlusive disease. No significant change compared to previous exam 01/06/12. LEFT: Moderate lower extremity arterial occlusive disease. No significant change compared to previous exam 01/06/12. Assessment/Plan: 57 yo male s/p R JAYA stent 12/06/12. NALDO's stable RABI 0.60, LABI 0.61. No complaints. Continue ASA and statin. RTC 1-2 months with carotid duplex. For known carotid disease R>L. documented in this encounter Plan of Treatment Upcoming Encounters Date Type Department Care Team (Late st Contact Info) Description 01/10/2024 7:45 AM EDT Appointment Hematology [place] [address] 01/21/2024 10:[address] [place] [address] Heber Phillips MD [facility] DR HEMATOLOGY/[place] [address] 03/28/2024 10:00 AM EDT Office Visit Hematology/Oncology at [address] [phone] Heber Phillips MD [facility] HEMATOLOGY/[place] [address] Isabella Baker APRN [facility] [place] [address] documented as of this encounter Results * Cerebrovascular Duplex, Bilateral (02/21/2013 12:34 PM EDT) VB Text Report Department: Vascular Surgery Lab Patient: [id number] (BRITTA SAEED) CPT Code: 06446 ICD-9: 433.1 Referring Physician: KRISTAN PATRICK Indication: ?? f/u R carotid stenosis. ICD9 Diagnosis Code: 433.1 Findings: ICA Proximal, Right ? PSV (cm/s): 352 ? EDV (cm/s): 86 ? ICA/CCA: 4.6 ? Plaque Structure: Echogenic ? Plaque Surface: Irregular ? %Stenosis: 50-79% ICA Distal, Right ? PSV (cm/s): 102 ? EDV (cm/s): 28 ? ICA/CCA: 1.3 CCA Distal, Right ? PSV (cm/s): 77 ? EDV (cm/s): 15 CCA Middle, Right ? %Stenosis: <50% CCA Proximal, Right ? PSV (cm/s): 119 ? EDV (cm/s): 16 External Carotid Artery, Right ? PSV (cm/s): 183 ? EDV (cm/s): 18 ? %Stenosis: Near 50% Vertebral, Right ? PSV (cm/s): 70 ? EDV (cm/s): 21 ICA Proximal, Left ? PSV (cm/s): 122 ? EDV (cm/s): 35 ? ICA/CCA: 1.4 ? Plaque Structure: Echogenic ? Plaque Surface: Irregular ? %Stenosis: 16-49% ICA Distal, Left ? PSV (cm/s): 123 ? EDV (cm/s): 47 ? ICA/CCA: 1.4 CCA Distal, Left ? PSV (cm/s): 85 ? EDV (cm/s): 25 CCA Middle, Left ? %Stenosis: Minimal CCA Proximal, Left ? PSV (cm/s): 110 ? EDV (cm/s): 21 External Carotid Artery, Left ? PSV (cm/s): 167 ? EDV (cm/s): 27 ? %Stenosis: <50% Vertebral, Left ? PSV (cm/s): 62 ? EDV (cm/s): 19 Interpretation: RIGHT: There is smooth plaque in the mid common carotid artery causing a 20-30% stenosis by electronic calipers. There is bulky irregular plaque in the proximal internal carotid artery causing 50-79% stenosis when compared to the more distal internal carotid artery. Progression of stenosis compared to the previous exam. [...] 3.15 ? 16-49% ? 142 ?? 1.39 Current Exam ? 50-79% ? 352 ?? 4.57 ? 16-49% ? 122 ?? 1.45 Electronically Signed by: DANDRE VASQUEZ on 2013-02-22 12:10:58 PM [facility] VB Text Report End of Report [facility] 02/21/2013 12:3 4 PM EDT Kristan Patrick MD VASCULAR ORDERABLES [facility] documented in this encounter Visit Diagnoses Diagnosis PVD (peripheral vascular disease)- Primary Peripheral vascular disease, unspecified Carotid stenosis Occlusion and stenosis of carotid artery without mention of cerebral infarction documented in this encounter Care Teams Ballet Master/Mistress Relationship Specialty Start Date End Date Nataliya Messina MD [address] [place] [address] PCP - General 10/02/11 01/11/22 documented as of this encounter
--- OUTSIDE RECORDS SUMMARY | 2024-01-05 02:50 | XMS_ITS | Encounter Summary ---
Author Organization [facility] [place] [address] Care Team Providers Care Pm Technician Name Role Phone Edin Messina MD Primary Care Provider [phone] Encounter Details Date Type Department Care Team (Latest Contact Info) Description 12/07/2011 10:55 AM EDT - 12/07/2011 11:59 PM EDT Hospital En[place] [id number] CLINIC, Kristan Pete MD [facility] [place] [address] PVD (peripheral vascular disease); Iliac artery occlusion Discharge Disposition: Home Social History Tobacco Use [...] Sign Reading Time Taken Comments Blood Pressure 134/62 12/07/2011 5:30 PM EDT Pulse 112 12/07/2011 5:30 PM EDT Temperature 36.8 ??C (98.2 ??F) 12/07/2011 2:00 PM ED T Respiratory Rate 18 12/07/2011 5:30 PM EDT Oxygen Saturation 94% 12/07/2011 5:30 PM EDT Inhaled Oxygen Concentration - - Weight - - Height - - Body Mass Index - - documented in this encounter Discharge Instructions * Discharge Instructions* Zita Blair RN - 12/07/2011 3:29 PM EDT [facility] Interventional Radiology Post Angiography Instructions Procedure bilateral leg angiogram Puncture Site :right groin Date 12/07/[address] Patrick 1. At home we advise you to rest quietly in bed or on the couch with your hip straight until the next morning. Until the next morning you may get up only to go to the bathroom. 2. Resume your previous diet. Drink 6-8 ounces of fluid per hour for the next 8 hours. Avoid alcoholic or caffeinated beverages for 24 hours. 3. Avoid strenuous activity for the next 48 hours, particularly in the next 24 hours. Stair climbing should be kept to a minimum. Do not lift objects heavier than 10-15 pounds for the next 48 hours. 4. If you develop bulging under the skin or bleeding at the puncture site, put direct pressure on the puncture site for 15 minutes and call your doctor. If the bleeding persists, reapply pressure, and go to your local Emergency Department. 5. If you notice a sudden change in the feeling (numbness, tingling and/or pain) of your leg on theside of the puncture call your doctor. 6. You may develop a bruise at the puncture site. This should go away within a week to 10 days. If a bulge develops after the first three days, call your doctor or the Radiology Department here. Report signs of infection (redness, swelling, discharge, soreness, or fever) to your doctor. 7. Leave the bandage on for 24-48 hours. You may shower the following day after the procedure. You should NOT swim or tub bathe for [address] for 24 hours after the procedure. Do not sign any important documents or smoke unattended for 24 hours. You may return to work with the above restrictions on . 9. If you have any questions or concerns, please call Interventional Radiology Department at until 6pm. After 6pm, or on weekends or hoildays, call and ask for the technical operations vice president production control clerk. OR Vascular Department at until 4:45pm. After 4:45pm call and ask for the Vascular resident production control clerk. 10. If you are a diabetic and take Metformin or Janumet, Do not take it for 2 days after the procedure. You have received medication during your procedure to help lesson anxiety and keep you comfortable and which affects judgement and reaction time. We recommend that you do not drive, operate equipment, sign any important documents, or smoke unattended for 24 hours following your procedure. Because of the sedation please be careful on stairs, as you may be unsteady on your feet. You may resume your regular diet as tolerated. IV site -- slight redness, or tenderness is normal, you can use a warm compress. If tenderness and redness increases or foul drainage occurs, please contact your M. D. 07/03/11 * Patient Instructions* Wilda Kat MD - 12/07/2011 2:05 PM EDT You underwent right iliac artery stenting via right groin access to open up an occlusion (complete blockage) in your artery Wound: You may remove your dressings tomorrow Shower/Bath: OK to shower, wash with soap and water, and pat dry; avoid bathing or swimming for 1 week until incisions well healed Diet: resume regular diet Activity: As tolerated, OK to walk. No heavy lifting >10 lbs or deep bending for 1 week Driving: none while on narcotic pain meds; may resume when leg feeling well. Meds: continue your prior medications including aspirin; you will also begin a new medication, plavix daily; a script has been provided It is very important you stop smoking; please continue to work with your primary care doctor on this. We will see you in clinic in about a month with repeat ABIs; an appointment will be mailed to you but if you do not receive it, or have other questions please call [phone] as your followup is very important to us. documented in this encounter Medications at Time of Discharge Medication Sig Dispensed Refills Start Date End Date aspirin 81 mg EC tablet Take 81 mg by mouth daily. clopidogrel (PLAVIX) 75 mg tablet Take 1 tablet by mouth daily. 60 tablet 3 12/07/2011 01/06/2012 atorvastatin (LIPITOR) 20 mg tablet Take 20 mg by mouth daily. 09/13/2013 gabapentin (NEURONTIN) 300 mg capsuleIndications:Usama ropathic pain Take 1 capsule by mouth. At bedtime for 5 days, then 1 in AM 1 at bedtime for 5 days, then 1 in AM 1 in PM 1 at bedtime 75 capsule 0 10/05/2011 01/18/2013 fluticasone-salmeterol (ADVAIR DISKUS) 100-50 mcg/dose diskus inhaler Inhale 1 puff into the lungs 2 times daily. 01/18/2013 TAMSULOSIN HCL (FLOMAX ORAL) Take 2 capsules by mouth daily. 0.4 mg per capsule 01/18/2013 albuterol-ipratropium (COMBIVENT) 18-103 mcg/Actuation inhaler 2 Puff(s), Inh, Twice daily 03/09/2006 05/03/2020 documented as of this encounter Progress Notes * Destiny Mckeon RN - 12/08/2011 4:04 PM EDT Interventional and Vascular Radiology Post-Procedure Call Name: Britta Saeed Age: 56 y.o. Sex; Male Date of : 1955 (home) PCP EDIN MESSINA MD [phone] Date/Time of call: December 08, 2011/4:04 PM/ Procedure: BLE angiogram with stenting on Right Contact with patient If not patient, whom? Message left on answering machine: Call attempted - unable to contact patient: Are you having pain related to your procedure now? Back pain from lying 4 hours, funny sensation onright leg How are you managing your pain? Nothing Are you having any other problems related to you procedure? none Comments: How would you rate your pain management during the procedure? Good, not painful at all Comments: Did you have anxiety during your procedure? Nervous prior to but not during Comments: Did the discharge instructions you received answer your questions Comments: yes, staff was very helpful in clarifying insturctions Did you feel you were given adequate instructions prior to your procedure? Comments: Some confusion about scheduling, they received three different times for their procedure.Otherwise, pre-procedure instructions were very clear in regards to eating and medication guidelines. On a scale of 0 to 10, how well were you satisfied with the care you received in Interventional Radiology? Comments: 8 Is there anything we could have done differently? Provide clear scheduling times. Comments: Also of mention, pt stated that letter sent out provided information on parking at the main entrance. Pt and spouse commented that since the patient was here for a vascular procedure walking from the main entrance to [address] was not as convenient as say parking in the garage or at the east entrance would have been. They recommend suggesting patients for VIR would be better served by parking in the parking garage or at the east entrance. Nurse Comments: Pt and otherwise happy with services * FriendCece RN - 12/02/2011 5:07 PM EDT VIR NURSING DATABASE Name: BRITTA SAEED Date of : 1955 AGE 56 y.o. Address: [address] [place] [address] [place] [address] (home) Mobile: No relevant phone numbers on file. Referring Provider: Kristan Patrick Reason for Visit: 56-year-old nondiabetic man seen in consultation to evaluate right leg pain with walking for a potential vascular etiology, as well as asymptomatic carotid stenosis detected on duplex scanning after a carotid bruit was found on routine exam. Allergies Allergen Reactions ??? Contrast (Iodine-iodine Containing) Anaphylaxis ??? Lisinopril Other (See Comments) headache, fatigue Pertinent PMH: Patient Active Problem List Diagnoses Code ??? Low back pain radiating to right leg 724.2BS ??? Carotid stenosis 433.10Z ??? PVD (peripheral vascular disease) 443.9AP He is a heavy smoker, up to 2 packs per day his entire life. MRI 2011 L4-5 left side disc herniation, no central or foraminal stenosis. Facet arthropathy L5-S1 and L4-5 Pertinent PSH: No past surgical history on file. Date/Procedure Comments: 12/07/11 Right common iliac stent Fentanyl 200, Versed 2, protamine 30, ancef 1g, Heparin 5000 IV Laboratory Results: none in edh Medications: Prior to Admission medications Medication Sig Start Date End Date Taking? Authorizing Provider predniSONE (DELTASONE) 50 mg tablet Take 1 tablet by mouth. 13, 7 and 1 hour before scheduled arteriogram 11/26/11 Kristan Patrick MD diphenhydrAMINE (BENADRYL) 50 mg capsule Take 1 capsule by mouth. One hour before scheduled arteriogram. 11/26/11 Kristan Patrick MD atorvastatin (LIPITOR) 20 mg tablet Take 20 mg by mouth daily. Historical Provider, gabapentin (NEURONTIN) 300 mg capsule Take 1 capsule by mouth. At bedtime for 5 days, then 1 in AM 1 at bedtime for 5 days, then 1 in AM 1 in PM 1 at bedtime 10/05/11 Missy Manley MD fluticasone-salmeterol (ADVAIR DISKUS) 100-50 mcg/dose diskus inhaler Inhale 1 puff into the lungs 2 times daily. Historical Provider, hydrochlorothiazide (MICROZIDE) 12.5 mg capsule Take 12.5 mg by mouth every morning. Historical Provider, aspirin 81 mg EC tablet Take 81 mg by mouth daily. Historical Provider, TAMSULOSIN HCL (FLOMAX ORAL) Take 2 capsules by mouth daily. 0.4 mg per capsule Historical Provider, albuterol-ipratropium (COMBIVENT) 18-103 mcg/Actuation inhaler 2 Puff(s), Inh, Twice daily 03/09/06 documented in this encounter H&P Notes * Wilda Kat MD - 12/07/2011 11:42 AM EDT Vascular Surgery Pre-Angio H&P HPI: Britta Saeed is a 56 y.o. nondiabetic male smoker with progressive right leg claudication buttock and hip and extends down into his right calf muscles over the past 5 years. It has worsened to the extent that he has had to stop working in June. He also constant numbness and tingling in his right foot. His left leg is without these symptoms. He has some erectile dysfunction, worsened after he began taking Flomax. He has no history of neurologic symptoms. He does have low back pain and this has been evaluated in the past with a CT scan, years ago, when he received dye, which caused him to have immediate hives. He also has an asymptomatic carotid stenosis detected on duplex scanning after a carotid bruit was found on routine exam. Patient Active Problem List Diagnoses ??? Carotid stenosis ??? PVD (peripheral vascular disease) ??? Low back pain radiating to right leg No past surgical history on file. Current outpatient prescriptions ordered prior to encounter Medication Sig Dispense Refill ??? predniSONE (DELTASONE) 50 mg tablet Take 1 tablet by mouth. 13, 7 and 1 hour before scheduled arteriogram 3 tablet 0 ??? diphenhydrAMINE (BENADRYL) 50 mg capsule Take 1 capsule by mouth. One hour before scheduled arteriogram. 1 capsule 0 ??? atorvastatin (LIPITOR) 20 mg tablet Take 20 mg by mouth daily. ??? gabapentin (NEURONTIN) 300 mg capsule Take 1 capsule by mouth. At bedtime for 5 days, then 1 Cassidy 1 at bedtime for 5 days, then 1 in AM 1 in PM 1 at bedtime 75 capsule 0 ??? fluticasone-salmeterol (ADVAIR DISKUS) 100-50 mcg/dose diskus inhaler Inhale 1 puff into the lungs 2 times daily. ??? hydrochlorothiazide (MICROZIDE) 12.5 mg capsule Take 12.5 mg by mouth every morning. ??? aspirin 81 mg EC tablet Take 81 mg by mouth daily. ??? TAMSULOSIN HCL (FLOMAX ORAL) Take 2 capsules by mouth daily. 0.4 mg per capsule ??? albuterol-ipratropium (COMBIVENT) 18-103 mcg/Actuation inhaler 2 Puff(s), Inh, Twice daily Current facility-administered medications ordered prior to encounter Medication Dose Route Frequency Provider Last Rate Last Dose ??? sodium bicarbonate 150 mEq in dextrose 5% 1000 mL infusion 3 mL/kg/hr Intravenous Continuous Kristan Patrick MD Allergies Allergen Reactions ??? Contrast (Iodine-iodine Containing) Anaphylaxis ??? Lisinopril Other (See Comments) headache, fatigue History Social History ??? Marital Status: Spouse Name: N/A Number of Children: N/A ??? Years of Education: N/A Occupational History ??? Not on file. Social History Main Topics ??? Smoking status: Current Everyday Smoker -- 2.0 packs/day ??? Smokeless tobacco: Not on file ??? Alcohol Use: No ??? Drug Use: Not on file ??? Sexually Active: Not on file Other Topics Concern ??? Not on file Social History Narrative ??? No narrative on file Fam Hx: father had a history of carotid endarterectomy. Filed Vitals: 12/07/11 1100 BP: 149/84 Pulse: 115 Temp: 36.4 ??C (97.5 ??F) TempSrc: Oral Resp: 18 SpO2: 96% Gen:AAOx3, NAD, appears stated age, relatively thin Neuro: no focal deficits HEENT: Carotid pulses 2+ bilaterally, R carotid bruit CV: RRR no m/r/g Pulm: CTA B Abd: Soft, NT, ND, normal abdominal aortic pulse Ext: left femoral pulse 2+, right femoral pulse theady to absent. Left popliteal, DP and PT pulses weak 1+/dopplerable pedal signals, Right popliteal and pedal pulses absent, dopplerable pedal signals. Some dependent rubor on right Labs: pending Recent Results (from the past 24 hour(s)) BUN Component Value Range ??? BUN 18 10 - 20 (mg/dL) CREATININE, SERUM Component Value Range ??? Creatinine 0.77 (*) 0.80 - 1.50 (mg/dL) ? ? Estimated GFR >60 >=60 11/10 ABIs Findings: Right Pressure (mmHg) NALDO Waveform Brachial Artery 131 Common Femoral Artery Monophasic Pop Fossa Monophasic Dorsalis Pedis (Ankle) Artery 30 0.22 Monophasic Posterior Tibial (Ankle) Artery 28 0.21 Monophasic Left Pressure (mmHg) NALDO Waveform Brachial Artery 134 Common Femoral Artery Monophasic pop Fossa Monophasic Dorsalis Pedis (Ankle) Artery 90 0.67 Monophasic Posterior Tibial (Ankle) Artery 93 0.69 Monophasic Interpretation: RIGHT: Severe lower extremity arterial occlusive disease. Suspect iliac artery occlusion with reconstitution vs high grade stenosis. LEFT: Moderate lower extremity arterial occlusive disease. Suspect more proximal iliac artery stenosis. 5/23 Carotid Duplex: RIGHT: There is bulky plaque in the proximal internal carotid artery causing 50- 69% stenosis when compared to the more distal internal carotid artery. There is a >50% stenosis in the ECA. The bifurcation level is in the mid neck. LEFT: There is bulky plaque in the proximal internal carotid artery causing 16- 49% stenosis when compared to the more distal internal carotid artery. There is a >50% stenosis in the ECA. The bifurcation level is in the mid neck. Vertebral Artery Data: Antegrade blood flow with normal Doppler waveforms and velocities bilaterally. 11/24 Arterial Duplex: Findings: Segment PSV (cm/s) EDV (cm/s) External Iliac Artery, Distal 56 34 Common femoral artery, Distal 56 35 Profunda Femoris Artery, Proximal 23 8 Superficial Femoral Artery, Proximal 47 30 Superficial Femoral Artery, Mid 68 41 Superficial Femoral Artery, Distal 57 36 Popliteal Artery, Above Knee 34 21 Popliteal Artery, Below Knee 29 20 Peroneal Artery, Proximal 28 21 Posterior Tibial Artery, Proximal 23 14 Interpretation: Patent aorta with a small distal aneurysm diameter of 3cm x 2.75cm and diffuse atherosclerotic plaque. The proximal abdominal aorta has a diameter of 2.5cm and the mid aorta diameter is 2.2cm The left proximal common iliac artery has a diameter of 1.28cm. The right common iliac artery is occluded, and has a diameter of 1.27cm. Patent right external iliac artery, HORTICULTURAL THER[employer]IST, SFA, proximal PFA, popliteal artery, and proximal [employer] and proximal peroneal artery with no evidence of significant stenosis or aneurysm--all waveforms are tardus/parvus with low flow velocities. Few slices of MRI/MRA 08/13/11 suggestive of occlusion at origin of right common iliac artery of several cms A/P: Britta Saeed is a 56 y.o. male nondiabetic smoker with progressive right leg claudication over the past 5 years which is now lifestyle limiting with Right sided NALDO of 0.2, duplex demonstrating small distal aortic aneurysm (3 cm) and occluded right common iliac artery. -Plan for angiography and right common iliac artery stenting/stent grafting via likely bilateral femoral access (diagnostic angiography left, stenting access via right) -Pt premedicated with po steroids and benadryl for contrast allergy ASA III Mal II Cr .77, eGFR>60 documented in this encounter Procedure Notes * Kristan Patrick MD - 12/07/2011 1:50 PM EDT Vascular Surgery Angio Procedure Note Pre-Operative Diagnosis: Right Common Iliac Arterial Occlusive Disease Post-Operative Diagnosis: Same Procedure: 1. Right femoral arterial access using ultrasound guidance 2. Placement of catheter in aorta with aortography 3. Deployment of right common iliac stent (Epic 9 x 40) with post-dilation to 8mm. 4. Right leg angiogram 5. Pull and hold technique Surgeons: Toro Bautista E. Spangler Dye: Visipaque - 85 mL FT: 13.1 minutes Antibiotics: Ancef 1 gm Heparin: 5000 Units Protamine: 30 mg Sedation: Due to the painful nature of the procedure, split doses of Fentanyl and Versed were administered bythe IR nurse during continuous monitoring of pulse, blood pressure and oxygen saturation. Versed - 2 mg and Fentanyl - 200 mcg Indications: Mr. Saeed is a 56 y.o. male nondiabetic smoker with progressive right leg claudication over the past 5 years which is now lifestyle limiting. He underwent a arterial duplex showing a smallinfrarenal aortic aneurysm (3cm), a right common iliac occlusion with external iliac reconstitution, and patent arterial flow to the foot with 3 vessel runoff. His Right sided NALDO of 0.2 suggests lack of good collateral flow. Patient was taken for elective attempt at right iliac endovascular intervention. Findings: - Dr. Patrick was present for the entirety of this procedure. - Sheath access in Right groin (6 [...] iliac stent (Epic 9 x 40) with post-dilationusing 8mm balloon. Completion angiogram demonstrated excellent stent expansion with patent flow andno residual stenosis in right common iliac artery. In addition, the right hypogastric and right external iliac arteries were patent although the external iliac appeared small and atretic likely from c hronic underfilling. - Right leg angiogram via sheath demonstrated a small right common femoral artery with delayed filling of the profunda femoris. The right superficial femoral artery was also small but normal appearing and patent. The above and below-knee popliteal, tibioperoneal trunk, anterior tibial, posterior tibial and peroneal arteries all appeared to be normal and patent. The distal peroneal was diminutive and the PT/AT provided 2-vessel inflow to the foot. - Successful pull and hold with good hemostasis. Technical Procedure: The patient was correctly identified in the pre-procedure holding area. After a discussion of the risks and benefits, operative consent was obtained. The patient was brought to the angio suite and placed supine upon the angio table. The patient was prepped and draped in the usual sterile fashion. Atime-out was performed by the attending surgeon. Retrograde percutaneous access was obtained in theRight common femoral artery via micropuncture technique under ultrasonographic and flouroscopic guidance after infiltration with local anesthetic. The J-wire was advanced up to the right JAYA occlusion before upsizing to a 5 Fr sheath. A 035 glidewire and a NTA catheter were then advanced and used to cross the right JAYA occlusion. Contrast was injected through the NTA to confirm catheter placementin the aorta before exchanging wire for a J-wire and then advancing a mod-hook catheter over the wire. An aortogram was completed with findings as described above. Next, we removed the mod-hook over the wire and exchanged the 5 Fr sheath for a 6 Fr. Once this sheath was in place, we repeated the aortogram while injecting contrast through the flush catheter in the aorta and hand-injection in the right femoral sheath. After arterial measurements were taken and the screen was marked, we advanced the appropriately sized stent (Epic 9 x 40) across the lesion and deployed without difficulty. We used an 8-mm balloon catheter to post-dilate before performing completion angiography with findings as described above. Finally, we removed the wire and catheters a completed a right leg angiogram via the sheath in bolus-gogo fashion with findings as described above. The sheath was then removed and manual pressure was held over the puncture site for 20 minutes with satisfactory hemostasis. The puncture site was dressed with a dry gauze and tegaderm. Dr. Patrick the attending surgeon was scrubbed and present for the entire procedure. Plan: - Discharge home after 4 hours in flat position - Plavix load (300mg) in recovery and continue 75mg PO Qday - Follow-up in one month with repeat ABIs. Vascular Staff: I was the attending physician supervising the resident in the above care and I was present with the resident for the entire procedure. I agree with the above summary. documented in this encounter Miscellaneous Notes * Miscellaneous - Provider, Scanning - 12/22/2011 10:49 AM EDT * Miscellaneous - Provider, Scanning - 12/22/2011 9:43 AM EDT documented in this encounter Plan of Treatment Upcoming Encounters Date Type Department Care Team (Late st Contact Info) Description 01/10/2024 7:45 AM EDT Appointment Hematology [place] [address] 01/21/2024 10:[address] [place] [address] Heber Phillips MD [facility] DR HEMATOLOGY/[place] [address] 03/28/2024 10:00 AM EDT Office Visit Hematology/Oncology at [address] [phone] Heber Phillips MD [facility] DR HEMATOLOGY/[place] [address] Isabella Baker APRN [facility] [place] [place] [address] documented as of this encounter Procedures Procedure Name Priority Date/Time Associated Diagnosis Comments VS ARTERIOGRAM LOWER EXTREMITY VASCULAR SURGERY Routine 12/07/2011 1:37 PM EDT Iliac artery occlusion CREATININE Routine 12/07/2011 10:46 AM EDT BUN Routine 12/07/2011 10:46 AM EDT documented in this encounter Results * NALDO, legs, multiple levels (01/06/2012 2:26 PM EDT) VB Text Report Department: Vascular Surgery Lab Patient: [id number] (BRITTA SAEED) CPT Code: 36760 ICD-9: 440.21 Referring Physician: KRISTAN PATRICK Indication: ?? PVD, s/p RIGHT JAYA stent, ? improvement Diabetes mellitus: ?? No ICD9 Diagnosis Code: 440.21 Definitions: ??NALDO = Ankle / Brachial Systolic Pressure Index, TBI = Toe / Brachial Systolic Pressure Index Findings: Right ?Pressure (mmHg) ?? NALDO ??Waveform Brachial Artery ?139 Dorsalis Pedis (Ankle) Artery ?87 ? 0.63 ??Monophasic Posterior Tibial (Ankle) Artery ??78 ? 0.56 ??Antelope-Biphasic Left ? Pressure (mmHg) ?? NALDO ??Waveform Brachial Artery ?138 Dorsalis Pedis (Ankle) Artery ?90 ? 0.65 ??Antelope-Biphasic Posterior Tibial (Ankle) Artery ??87 ? 0.63 ??Antelope-Biphasic Interpretation: RIGHT: Moderate lower extremity arterial occlusive disease. Significant improvement compared to previous exam on 11/11/2011. LEFT: Moderate lower extremity arterial occlusive disease. No significant change compared to previous exam on 11/11/2011. Previous ABIs with change from previous value: Date RIGHT DP RIGHT PT RIGHT GR TOE LEFT DP LEFT PT LEFT GR TOE 0.22 0.21 ---- 0.67 0.69 ---- Current Exam 0.63 (+0.41) 0.56 (+0.35) ---- 0.65 (-0.02) 0.63 (-0.06) ---- Signed by KRISTAN PATRICK on 2012-01-06 03:16:01 PM [facility] VB Text Report End of Report [facility] 01/06/2012 2:26 PM EDT Kristan Patrick MD VASCULAR ORDERABLES VASCUBASE * VS Angiogram/intervention (vascular) (12/07/2011 1:37 PM EDT) Anatomical Region Laterality Modality X-Ray Angiograph y 12/07/2011 1:37 PM EDT Narrative 12/08/2011 12:08 PM EDT Vascular Surgery Angio Procedure Note ?? Pre-Operative Diagnosis: Right Common Iliac Arterial Occlusive Disease ?? Post-Operative Diagnosis: Same ?? Procedure: ?? 1. Right femoral arterial access using ultrasound guidance ?? 2. Placement of catheter in aorta with a ortogra phy ?? 3. Deployment of right common iliac stent (Epic 9 x 40) with post-dilation to 8mm. ?? 4. Right leg angiogram ?? 5 . Pull and hold technique ?? Surgeons: Toro Bautista E. Spangler ?? Dye: Visipaque - 85 mL ?? FT: 13.1 minutes ?? Antibiotics: Ancef 1 gm ?? Heparin: 5 000 Units ?? Protamine: 30 mg ?? Sedation: ?? Due to the painful nature of the procedure, split doses of Fentanyl and Versed were administered by the IR nurse during continuous monitoring of pulse, blood pressure and oxygen saturation. ?? Versed - 2 mg and Fentanyl - 200 mcg ?? Indications: Kaley Saeed is a 56 y.o. male nondiabetic smoker with progressive right leg claudication over the past 5 years which is now lifestyle limiting. He underwent a arterial duplex showing a small infrarenal aortic aneurysm (3cm), a right common iliac occlusion with external iliac reconstitution, and patent arterial flow to the foot with 3 vessel runoff. His Right sided NALDO of 0.2 suggests lack of good collateral flow. Patient was taken for elective attempt at right iliac endovascular intervention. ?? Findings: ?? - Dr. Patrick was present for the entirety of this procedure. ?? - Sheath access in Right groin (6 Fr) ?? - Right common iliac artery occlusion crossed with glide wire and NTA catheter. ?? - Aortogram demonstrated small infrarenal aortic aneurysm, patent left common iliac and external iliac arteries with possible stenosis in distal JAYA, and occluded proximal right common iliac artery approximately 10 mm beyond the bifurcation. ?? - Successful deployment of right self-expanding common iliac stent (Epic 9 x 40) with post-dilation using 8mm balloon. Completion angiogram demonstrated excellent stent expansion with patent flow and no residual stenosis in right common iliac artery. In addition, the right hypogastric and right external iliac arteries were patent although the external iliac appeared small and atretic likely from chronic underfilling. ?? - Right leg angiogram via sheath demonstrated [...] PT/AT provided 2-vessel inflow to the foot. ?? - Successful pull and hold with good hemostasis. ?? Technical Procedure: ?? The patient was correctly identified in the pre-procedure holding area. After a discussion of the risks and benefits, operative consent was obtained. The patient was brought to the angio suite and placed supine upon the angio table. The patient was prepped and draped in the usual sterile fashion. A time-out was performed by the attending surgeon. Retrograde percutaneous access was obtained in the Right common femoral artery via micropuncture technique under ultrasonographic and flouroscopic guidance after infiltration with local anesthetic. The J-wire was advanced up to the right JAYA occlusion before upsizing to a 5 Fr sheath. A 035 glidewire and a NTA catheter were then advanced and used to cross the right JAYA occlusion. Contrast was injected through the NTA to confirm catheter placement in the aorta before exchanging wire for a J-wire and then advancing a mod-hook catheter over the wire. An aortogram was completed with findings as described above. Next, we removed the mod-hook over the wire and exchanged the 5 Fr sheath for a 6 Fr. Once this sheath was in place, we repeated the aortogram while injecting contrast through the flush catheter in the aorta and hand-injection in the right femoral sheath. After arterial measurements were taken and the screen was marked, we advanced the appropriately sized stent (Epic 9 x 40) across the lesion and deployed without difficulty. We used an 8-mm balloon catheter to post-dilate before performing completion angiography with findings as described above. Finally, we removed the wire and catheters a completed a right leg angiogram via the sheath in bolus-gogo fashion with findings as described above. The sheath was then removed and m anual pressure was held over the puncture site for 20 minutes with satisfactory hemostasis. The puncture site was dressed with a dry gauze and tegaderm. Dr. Patrick the attending surgeon was scrubbed and present for the entire procedure. ?? Plan: ?? - Discharge home after 4 hours in flat position ?? - Plavix load (300mg) in recovery and continue 75mg PO Qday ?? - ?? Follow-up in one month with repeat ABIs . ?? Vascular Staff: I was the attending physician supervising the resident in the above care and I was present with the resident for the entire procedure. I agree with the above summary. ?? Film and interpretation reviewed by the attending Procedure Note Kristan Patrick MD - 12/08/2011 Vascular Surgery Angio Procedure Note Pre-Operative Diagnosis: Right Common Iliac Arterial Occlusive Disease Post-Operative Diagnosis: Same Procedure: 1. Right femoral arterial access using ultrasound guidance 2. Placement of catheter in aorta with a ortogra phy 3. Deployment of right common iliac stent (Epic 9 x 40) with post-dilationto 8mm. 4. Right leg angiogram 5 . Pull and hold technique Surgeons: Toro Bautista E. Spangler Dye: Visipaque - 85 mL FT: 13.1 minutes Antibiotics: Ancef 1 gm Heparin: 5 000 Units Protamine: 30 mg Sedation: Due to the painful nature of the procedure, split doses of Fentanyl andVersed were administered by the IR nurse during continuous monitoring of pulse,blood pressure and oxygen saturation. Versed - 2 mg and Fentanyl - 200 mcg Indications: Kaley Saeed is a 56 y.o. male nondiabetic smoker withprogressive right leg claudication over the past 5 years which is now lifestylelimiting. He underwent a arterial duplex showing a small infrarenal aortic aneurysm (3cm), a right common iliac occlusion with external iliac reconstitution,and patent arterial flow to the foot with 3 vessel runoff. His Right sided ABIof 0.2 suggests lack of good collateral flow. Patient was taken for elective attempt at right iliac endovascular intervention. Findings: - Dr. Patrick was present for the entirety of this procedure. - Sheath access in Right groin (6 Fr) - Right common iliac artery occlusion crossed with glide wire and NTAcatheter. - Aortogram demonstrated small infrarenal aortic aneurysm, patent leftcommon iliac and external iliac arteries with possible stenosis in distal JAYA,and occluded proximal right common iliac artery approximately 10 mm beyond the bifurcation. - Successful deployment of right self-expanding common iliac stent (Epic 9x 40) with post-dilation using 8mm balloon. Completion angiogramdemonstrated excellent stent expansion with patent flow and no residual stenosis inright common iliac artery. In addition, the right hypogastric and right external iliac arteries were patent although the external iliac appeared small and atretic likely from chronic underfilling. - Right leg angiogram via sheath demonstrated a small right common femoral artery with delayed filling of the profunda femoris . The rightsuperficial femoral artery was also small but normal appearing and patent. The aboveand below-knee popliteal, tibioperoneal trunk, anterior tibial, posteriortibial and peroneal arteries all appeared to be normal and patent. The distalperoneal was diminutive and the PT/AT provided 2-vessel inflow to the foot. - Successful pull and hold with good hemostasis. Technical Procedure: The patient was correctly identified in the pre-procedure holding area.After a discussion of the risks and benefits, operative consent was obtained. The patient was brought to the angio suite and placed supine upon the angiotable. The patient was prepped and draped in the usual sterile fashion. Atime-out was performed by the attending surgeon. Retrograde percutaneous access wasobtained in the Right common femoral artery via micropuncture technique under ultrasonographic and flouroscopic guidance after infiltration with local anesthetic. The J-wire was advanced up to the right JAYA occlusion before upsizing to a 5 Fr sheath. A 035 glidewire and a NTA catheter were then advanced and used to cross the right JAYA occlusion. Contrast was injected through the NTA to confirm catheter placement in the aorta beforeexchanging wire for a J-wire and then advancing a mod-hook catheter over the wire. An aortogram was completed with findings as described above. Next, we removedthe mod-hook over the wire and exchanged the 5 Fr sheath for a 6 Fr. Once this sheath was in place, we repeated the aortogram while injecting contrastthrough the flush catheter in the aorta and hand-injection in the right femoralsheath. After arterial measurements were taken and the screen was marked, weadvanced the appropriately sized stent (Epic 9 x 40) across the lesion and deployed without difficulty. We used an 8-mm balloon catheter to post-dilate before performing completion angiography with findings as described above.Finally, we removed the wire and catheters a completed a right leg angiogram via thesheath in bolus-gogo fashion with findings as described above. The sheath wasthen removed and m anual pressure was held over the puncture site for 20minutes with satisfactory hemostasis. The puncture site was dressed with a drygauze and tegaderm. Dr. Patrick the attending surgeon was scrubbed andpresent for the entire procedure. Plan: - Discharge home after 4 hours in flat position - Plavix load (300mg) in recovery and continue 75mg PO Qday - Follow-up in one month with repeat ABIs . Vascular Staff: I was the attending physician supervising the resident inthe above care and I was present with the resident for the entire procedure. I agree with the above summary. Film and interpretation reviewed by the attending Kristan Patrick MD IMG IR ORDERABLES * (ABNORMAL) Creatinine, serum (12/07/2011 10:46 AM EDT) Creatinine 0.77(L) 0.80 - 1.50 mg/dL BRYN SANCHEZ Comment: Please note that the pediatric reference intervals supplied above were not validated at [facility]. Results from pediatric patients should be interpreted in conjunction to the patient's age, height and muscle mass. Estimated GFR >60 >=60 BRYN SANCHEZ Comment: The National Kidney Disease Education Program (NKDEP) has recommended all laboratories report estimated GFR (eGFR) along with plasma creatinine measurements to assist you with recognition of early kidney disease. Caveats: ??Plasma creatinine should be at steady-state (unchanged within the past week). For patients multiply eGFR by 1.2. The MDRD equation was developed using patients between the ages of 18 and 70 years. ?? The MDRD equation has not been validated for patients < 18 years of age and should not be used to assess renal function in the pediatric population. ??The MDRD eGFR equation will also overestimate the true GFR of patients above the age of 70. ??This overestimation is variable but increases with age. At present, NKDEP does NOT recommend using the MDRD equation for drug dosing purposes and pharmacists should continue to use their current dosing methods. In addition, numerical eGFR values greater than 60 ml/min/1.73 square meters should be treated as > 60, and not an exact number due to greater inaccuracies at these higher values. Per NKDEP, they classify normal renal function as any GFR >60ml/min/1.73 square meters; chronic kidney disease when GFR <60, and renal failure when GFR <15. ??This calculation may not be valid for patients with atypical muscle mass (very lean or obese), acute renal failure, and in patients with diabetic kidney disease. References: http://nkdep.nih.gov/resources/NKDEP_Suggestn4Labs_0606_508.pdf http://www.kidney.org/professionals/kls/pdf/faq_gfr.pdf Matteo K, Coleen NA, Norma AK, Ash TS, Christine AD, Taty MICHELLE. Relative performance of the MDRD and CKD-EPI equations for estimating glomerular filtration rate among patients with varied clinical presentations. Clin J Am Soc Nephrol;6:1963-72. Blood specimen (specimen) 12/07/2011 10:46 AM EDT 12/07/2011 10:50 AM EDT Narrative Resulting Agency Comment Spec In Lab Kristan Patrick MD CHEMISTRY ORDERABLE S [facility] * BUN (12/07/2011 10:46 AM EDT) BUN 18 10 - 20 mg/dL BRYN SANCHEZ Blood specimen (specimen) 12/07/2011 10:46 AM EDT 12/07/2011 10:50 AM EDT Narrative Resulting Agency Comment Spec In Lab Kristan Patrick MD CHEMISTRY ORDERABLE S BRYN SANCHEZ documented in this encounter Visit Diagnoses Diagnosis PVD (peripheral vascular disease) Peripheral vascular disease, unspecified Iliac artery occlusion Embolism and thrombosis of iliac artery documented in this encounter Administered Medications Inactive Administered Medications - up to 3 most recent administrations Medication Order MAR Action Action Date Dose Rate Site ceFAZolin (ANCEF) 1g in dextrose 5% 50mL 1,000 mg (1 g), Intravenous, ONCE PRN, 1 dose, Starting on Wed12/07/11 at 0646, Until Wed12/07/11 at 1305, Administer over 30 Minutes, procedural abx, Angio/IR (Intra-Procedure), Indication for (Active or Suspected): Prophylaxis Given 12/07/2011 1:05 PM EDT 1,000 mg 100 mL/hr clopidogrel (PLAVIX) tablet 300 mg 300 mg, Oral, ONCE, 1 dose, On Wed12/07/11 at 1530, Routine Given 12/07/2011 3:30 PM EDT 300 mg fentaNYL 50mcg/mL injection 25-50 mcg, Intravenous, EVERY 5 MIN PRN, Starting on Wed12/07/11 at 0644, Until Wed12/07/11 at 1401, Pain, procedural sedation, Angio/IR (Intra-Procedure), Routine Given 12/07/2011 1:36 PM EDT 200 mcg heparin (porcine) injection 10,000 Units 10,000 Units, Intravenous, ONCE PRN, 1 dose, Starting on Wed12/07/11 at 0644, Until Wed12/07/11 at 1305, procedural, Angio/IR (Intra-Procedure), Routine Given 12/07/2011 1:05 PM EDT 5,000 Units midazolam (VERSED) injection 0.5 mg 0.5 mg, Intravenous, EVERY 5 MIN PRN, Starting on Wed12/07/11 at 0644, Until Wed12/07/11 at 1401, Sleep, procedural sedation, Angio/IR (Intra-Procedure), Routine Given 12/07/2011 1:36 PM EDT 2 mg protamine injection 0-20 mg 0-20 mg, Intravenous, ONCE PRN, 1 dose, Starting on Wed12/07/11 at 0644, Until Wed12/07/11 at 1336, procedural, Angio/IR (Intra-Procedure), Routine Given 12/07/2011 1:36 PM EDT 30 mg sodium chloride 0.9% 1,000 mL infusion at 100 mL/hr, Intravenous, CONTINUOUS, Starting on Wed12/07/11 at 1215, Until Wed12/07/11 at 1500 New Bag 12/07/2011 12:15 PM EDT 100 mL/hr New Bag 12/07/2011 12:00 PM EDT 100 mL/hr documented in this encounter Care Teams Pm Technician Relationship Specialty Start Date End Date Edin Messina MD [address] [place] [address] PCP - General 10/02/11 01/11/22 documented as of this encounter
--- OUTSIDE RECORDS SUMMARY | 2024-01-05 02:50 | XMS_ITS | Encounter Summary ---
Author Organization [facility] Address [facility] [place] [address] Care Team Providers Care Real Estate Rental Agent Name Role Phone Nataliya Messina MD Primary Care Provider [phone] Encounter Details Date Type Department Care Team (Latest Contact Info) Description 11/25/2011 9:00 AM EDT Procedure [place] [phone] Mary Ewing, RVT Atherosclerotic peripheral vascular disease with rest pain Social History Tobacco Use Types Packs/Day [...] AM EDT Appointment [place]emat[place] [phone] 01/21/2024 10:[address] [place] [place] [phone] Heber Phillips MD [facility] HEMATOLOGY/[place] [address] 03/28/2024 10:00 AM EDT Office Visit Hematology/Oncology at [address] [phone] Heber Phillips MD [facility] DR HEMATOLOGY/[place] [address] Isabella Baker APRN [facility] [place] [address] documented as of this encounter Procedures Procedure Name Priority Date/Time Associated Diagnosis Comments ARTERIAL DUPLEX LEG UNILA Routine 11/25/2011 8:59 AM EDT Atherosclerotic peripheral vascular disease with rest pain documented in this encounter Results * Arterial Duplex Leg, Unil (11/25/2011 8:59 AM EDT) VB Text Report Department: Vascular Surgery Lab Patient: [id number] (BRITTA SAEED) CPT Code: 76636 ICD-9: 440.20 Referring Physician: KRISTAN BOWDEN Indication: ?PVOD, right claudication, preop ICD9 Diagnosis Code: 440.20 Findings: Segment ? PSV (cm/s) ??EDV (cm/s) External Iliac Artery, Distal ? 56 ?34 Common femoral artery, Distal ? 56 ?35 Profunda Femoris Artery, Proximal ? 23 ? 8 Superficial Femoral Artery, Proximal ?47 ?30 Superficial Femoral Artery, Mid ? 68 ?41 Superficial Femoral Artery, Distal ?57 ?36 Popliteal Artery, Above Knee ?34 ?21 Popliteal Artery, Below Knee ?29 ?20 Peroneal Artery, Proximal ? 28 ?21 Posterior Tibial Artery, Proximal ? 23 ?14 Interpretation: Patent aorta with a small distal aneurysm diameter of 3cm x 2.75cm and diffuse atherosclerotic plaque. The proximal abdominal aorta has a diameter of 2.5cm and the mid aorta diameter is 2.2cm The left proximal common iliac artery has a diameter of 1.28cm. The right common iliac artery is occluded, and has a diameter of 1.27cm. Patent right external iliac artery, PRODUCT CONTROLLER, SFA, proximal PFA, popliteal artery, and proximal CENTRALIZED TRAFFIC CONTROL OPERATOR and proximal peroneal artery with no evidence of significant stenosis or aneurysm--all waveforms are tardus/parvus with low flow velocities. Signed by J CARLOS CR III, MD on 2011-11-25 02:08:50 PM VASCUBASE VB Text Report End of Report VASCU[facility] 11/25/2011 8:59 AM EDT Kristan Bowden MD VASCULAR ORDERABLES Performing Organization Address City/State/[facility] Co de Phone Number VASCUBASE documented in this encounter Visit Diagnoses Diagnosis Atherosclerotic peripheral vascular disease with rest pain Atherosclerosis of [place] arteries of the extremities with rest pain documented in this encounter Care Teams Real Estate Rental Agent Relationship Specialty Start Date End Date Nataliya Messina MD [address] [facility] [address] [place] [address] PCP - General 10/02/11 01/11/22 documented as of this encounter
--- OUTSIDE RECORDS SUMMARY | 2024-01-05 02:50 | XMS_ITS | Encounter Summary ---
Author Organization [facility] Address [facility] [place] [address] Care Team Providers Care Truss Maker Name Role Phone Nataliya Messina MD Primary Care Provider Encounter Details Date Type Department Care Team (Latest Contact Info) Description 09/12/2013 8:06 AM EDT - 09/12/2013 11:59 PM EDT Hospital Encounter [facility] [address] [place] [address] Stevo Mccall MD [facility] [place] [place] [address] Discharge Disposition: Home Social History Tobacco Use [...] mg by mouth every other day. 10/12/2023 omeprazole (PRILOSEC) 20 mg capsule Take 20 mg by mouth daily. 09/13/2013 lisinopril (PRINIVIL;ZESTRIL) 10 mg tablet Take 10 mg by mouth daily. 10/22/2016 nitroGLYcerin (NITROSTAT) 0.[address] 0.4 mg under the tongue every 5 minutes as needed. 09/13/2013 naproxen sodium (ALEVE) 220 mg Cap Take 440 mg by mouth as needed. For back pain. 10/11/2013 atorvastatin (LIPITOR) 20 mg tablet Take 20 mg by mouth daily. 09/13/2013 albuterol-ipratropium (COMBIVENT) 18-103 mcg/Actuation inhaler 2 Puff(s), Inh, Twice daily 03/09/2006 05/03/2020 documented as of this encounter Plan of Treatment Upcoming Encounters Date Type Department Care Team (Late st Contact Info) Description 01/10/2024 7:45 AM EDT Appointment [place] [phone] 01/21/2024 10:[address] [place] [place] [phone] Heber Phillips MD [facility] HEMATOLOGY/[place] [address] 03/28/2024 10:00 AM EDT Office Visit Hematology/Oncology at [address] [phone] Heber Phillips MD [facility] DR HEMATOLOGY/[place] [address] Isabella Baker APRN [facility] [place] [address] documented as of this encounter Procedures Procedure Name Priority Date/Time Associated Diagnosis Comments CK-MB STUDY Routine 09/12/2013 5:30 PM EDT documented in this encounter Results * (ABNORMAL) CK-MB Study (09/12/2013 5:30 PM EDT) CK, Total 218(H) 0 - 200 unit/L CERNER MILLENNIUM Comment:result rechecked-CONNOR CK-MB 19.2(H) 0.0 - 5.0 mcg/L CERNER MILLENNIUM CKMB Index 8.8(H) 0.0 - 5.0 mcg/u CERNER MILLENNIUM Blood specimen (specimen) 09/12/2013 5:30 PM EDT 09/12/2013 5:44 PM EDT Narrative Resulting Agency Comment Spec In Lab Rivas Rivero MD CHEMISTRY ORDERABLES [facility] [employer] documented in this encounter Visit Diagnoses Not on filedocumented in this encounter Care Teams Truss Maker Relationship Specialty Start Date End Date Nataliya Messina MD [address] [place] [address] PCP - General 10/02/11 01/11/22 documented as of this encounter
--- OUTSIDE RECORDS SUMMARY | 2024-01-05 02:50 | XMS_ITS | Encounter Summary ---
Author Organization [facility] Address [facility] [place] [address] Care Team Providers Care Miter Cutter Name Role Phone Nataliya Messina MD Primary Care Provider [phone] Reason for Visit * Reason Comments Circulatory Problem right self-expanding common iliac stent (Epic 9 x Encounter Details Date Type Department Care Team (Late st Contact Info) Description 01/06/2012 2:45 PM EDT Office [place] [address] Kristan Patrick MD [facility] [place] [address] S/P insertion of iliac artery stent Discharge Disposition: Home Social History Tobacco Use [...] Reading Time Taken Comments Blood Pressure 120/60 01/06/2012 2:51 PM EDT Pulse 78 01/06/2012 2:51 PM EDT Temperature - - Respiratory Rate - - Oxygen Saturation - - Inhaled Oxygen Concentration - - Weight 68 kg (150 lb) 01/06/2012 2:51 PM EDT Height 167.6 cm (5' 6) 01/06/2012 2:51 PM EDT Body Mass Index 24.21 01/06/2012 2:51 PM EDT documented in this encounter Progress Notes * Kristan Patrick MD - 01/06/2012 3:14 PM EDT Britta Saeed is a 56-year-old man who is seen for followup in one month following right iliac stent for a total right iliac occlusion. He has done very well since the procedure and no longer has any claudication in his right leg, which had been severe before treatment. He has normal femoral pulses on examination and palpable popliteal and pedal pulses bilaterally. His NALDO is now 0.6-0.7 bilaterally. He has some distal arterial disease, but not enough to cause symptoms, and based on his palpable distal pulses I suspect he may continue to see improvement, as he becomes more active. He has already noticed that his right leg is becoming significantly stronger. Unfortunately he continues to smoke. We had a long discussion about the critical importance of smoking cessation and methods to accomplish this. I will plan to see him for followup in one year. He can stop his Plavix at this point and remain only on aspirin, and a statin. documented in this encounter Plan of Treatment Upcoming Encounters Date Type Department Care Team (Late st Contact Info) Description 01/10/2024 7:45 AM EDT Appointment [place]ology [place] [address] 01/21/2024 10:[address] [place] [place] [address] Heber Phillips MD [facility] HEMATOLOGY/[place] [address] 03/28/2024 10:00 AM EDT Office Visit Hematology/Oncology at [address] [address] Heber Phillips MD [facility] HEMATOLOGY/[place] [address] Isabella Baker APRN [facility] [place] [address] documented as of this encounter Results * NALDO, legs, multiple levels (01/18/2013 2:25 PM EDT) VB Text Report Department: Vascular Surgery Lab Patient: [id number] (BRITTA SAEED) CPT Code: 81904 ICD-9: 440.20 Referring Physician: KRISTAN PATRICK Indication: ??PVOD Diabetes mellitus: ?? no ICD9 Diagnosis Code: 440.20 NALDO = Ankle / Brachial Systolic Pressure Index, TBI = Toe / Brachial Systolic Pressure Index Findings: Right ?Pressure (mm Hg) ?? NALDO ??Waveform ?? Brachial Artery ?148 ? Dorsalis Pedis (Ankle) Artery ?88 ?0.59 ??Biphasic ?? Posterior Tibial (Ankle) Artery ??89 ?0.60 ??Biphasic ?? Left ? Pressure (mm Hg) ?? NALDO ??Waveform ?? Brachial Artery ?140 ? Dorsalis Pedis (Ankle) Artery ?91 ?0.61 ??Biphasic ?? Posterior Tibial (Ankle) Artery ??90 ?0.61 ??Biphasic ?? Interpretation: RIGHT: Moderate lower extremity arterial occlusive disease. No significant change compared to previous exam 01/06/12. LEFT: Moderate lower extremity arterial occlusive disease. No significant change compared to previous exam 01/06/12. Previous ABIs with change from previous value: Date ?RIGHT DP ?? RIGHT PT ?? RT GR TOE ??LEFT DP ?LEFT PT ?LT GR TOE ??0.22 ? 0.21 ? ---- ? 0.67 ? 0.69 ? ---- ??0.63(+.41) 0.56(+.35) ---- ? 0.65(-.02) 0.63(-.06) ---- Current ? 0.59(-.04) 0.60(+.04) ---- ? 0.61(-.04) 0.61(-.02) ---- Electronically Signed by: JEANNETTE KELSEY on 2013-01-19 01:39:56 PM VASCUBASE VB Text Report End of Report VASCUBASE 01/18/2013 2:25 PM EDT Kristan Patrick MD VASCULAR ORDERABLES [facility] documented in this encounter Visit Diagnoses Diagnosis S/P insertion of iliac artery stent Other postprocedural status documented in this encounter Care Teams Miter Cutter Relationship Specialty Start Date End Date Nataliya Messina MD [address] [place] [address] PCP - General 10/02/11 01/11/22 documented as of this encounter
--- OUTSIDE RECORDS SUMMARY | 2024-01-05 02:50 | XMS_ITS | Referral Summary ---
Author Organization [facility] Address [address] [place] [address] Care Team Providers Care Tool And Die Supervisor Name Role Phone Unknown, Provider Primary Care Provider Social History Tobacco Use Types Packs/Day Years Used Date Smoking Tobacco: Never Assessed Interpersonal Safety Answer Date Record ed Physically Hurt Never 01/21/2020 Verbally Threaten Not on file 01/21/2020 Sex and Gender Information Value Date Recorded Sex Assigned at Not on file Gender Identity Not on file Sexual Orientation Not on file Plan of Treatment Not on file Care Teams Tool And Die Supervisor Relationship Specialty Start Date End Date Unknown, Provider, PCP - General 04/26/15
--- OUTSIDE RECORDS SUMMARY | 2024-01-05 02:50 | XMS_ITS | Encounter Summary ---
Author Organization [facility] Address [facility] [place] [address] Care Team Providers Care Mgmt Analyst Name Role Phone Nataliya Messina MD Primary Care Provider [phone] Encounter Details Date Type Department Care Team (Latest Contact Info) Description 12/07/2011 10:35 AM EDT - 12/07/2011 11:59 PM EDT [place] [address] Ortega Patrick MD [facility] [place] [address] PVD (peripheral vascular disease) Discharge Disposition: Home [...] Hematology [place] [address] 01/21/2024 10:[address] [place] [address] Heber Phillips MD [facility] DR HEMATOLOGY/[place] [address] 03/28/2024 10:00 AM EDT Office Visit Hematology/Oncology at [address] [address] Heber Phillips MD [facility] DR HEMATOLOGY/[place] [address] Isabella Baker APRN [facility] [place] [address] documented as of this encounter Visit Diagnoses Diagnosis PVD (peripheral vascular disease) Peripheral vascular disease, unspecified documented in this encounter Care Teams Mgmt Analyst Relationship Specialty Start Date End Date Nataliya Messina MD [address] [place] [address] [address] [place] [address] PCP - General 10/02/11 01/11/22 documented as of this encounter
--- OUTSIDE RECORDS SUMMARY | 2024-01-05 02:50 | XMS_ITS | Encounter Summary ---
[place] [address] Care Team Providers Care Network Security Consultant Name Role Phone Edin Messina MD Primary Care Provider [phone] Reason for Visit * Reason Comments Low Back Pain With Radicular Pain right hip and leg Encounter Details Date Type Department Care Team (Late st Contact Info) Description 10/02/2011 7:15 AM EDT Office [place] [address] Missy Manley MD [facility] [place] [address] Low back pain radiating to right leg (Primary Dx) Discharge Disposition: Home Social History [...] Sign Reading Time Taken Comments Blood Pressure 150/83 10/02/2011 7:25 AM EDT Pulse 97 10/02/2011 7:25 AM EDT Temperature - - Respiratory Rate - - Oxygen Saturation 96% 10/02/2011 7:25 AM EDT Inhaled Oxygen Concentration - - Weight 68 kg (150 lb) 10/02/2011 7:25 AM EDT Height 168.9 cm (5' 6.5) 10/02/2011 7:25 AM EDT Body Mass Index 23.85 10/02/2011 7:25 AM EDT documented in this encounter Progress Notes * Missy Manley MD - 10/02/2011 8:24 AM EDT PAIN CLINIC CONSULTATION Date of Consultation: October 02, 2011 Referring Physician: EDIN MESSINA MD Responsible Attending: MISSY MANLEY MD Reason for request of consultation: Sciatica Presents with his son. Chief Complaint: Right leg pain History of Present Illness: 56 y.o. male with a history of low back and right leg pain, years, episodes. Shoveling snow in Jun 2011 and began to have pain in the right leg. Drag the leg in the past but recently with walking he has pain in the right hip and it brings tears to my eyes. Sits down and the pain resolves. The pain was originally at the belt line and that has resolved except for muscle spasm and now it Pain level not great, tolerable. However with walking to the pain clinic he had pain which made him stop. Burning pain. Weakness in the right leg when the pain comes. Spasms in the right calf with the pain. Numbness in the lateral thigh and leg and the entire foot, feel like it is asleep Tingling in thebottom medial aspect of the foot on the right He denies any perineal numbness, bowel incontinence, difficulty voiding. He has had some bladder incontinence, ongoing for >1 year and being evaluated by PCP. 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 Meloxicam--> no benefit Soma--> some benefit Physical Therapy PT active--> helps with the pain Procedures none Surgeries none Other none Imaging MRI 2011 L4-5 left side disc herniation, no central or foraminal stenosis Facet arthropathy L5-S1 and L4-5 Goals: Return to work Review of Systems Constitutional +occasional night sweats Denies weight loss or gain, fevers, chills. HEENT Denies hearing and vision problems. Does wears glasses. Cardiovascular Denies chest pain, palpitations. Respiratory +cough and SOB Denies ESCAMILLA. GI Denies constipation, diarrhea, nausea, vomiting, GERD incontinence Denies dysuria, retention. Musculoskeletal Pain involves as in HPI. Neurologic Denies fainting spells, seizures, memory loss. Sleep is fairly good. Weakness and numbness as reported in HPI Psychiatric Describes mood as depressing sometimes because I cant do what I want to do. Denies suicidal or homicidal ideation. Hematologic Denies anticoagulant use. Physical Exam Blood pressure 150/83, pulse 97, height 168.9 cm (5' 6.5), weight 68.04 kg (150 lb), SpO2 96.00%. Constitutional AxOx3, NAD Psychiatric Affect is pleasant. Goal directed thought process. Good eye contact. No pain behaviors. Skin no rash, tattoos. EENT moist mucous membranes without intra-oral lesions. Pupils equal and reactive. Extra-occular muscles intact. No conjunctival or scleral injection. Lungs Clear to auscultation, prolonged expiratory phase Cardiac Reg RR without murmur, rub ABD Nontender, nondistended, bowel sounds present, soft. Vasc no clubbing, cyanosis or edema. Peripheral pulses DP, PT +. Musculoskeletal Inspection of spine reveals normal posture, lordosis, without scoliosis or kyphosis. ROM full left lateral with right sided low back pain, flexion to the ankles with no pain, [id number] degrees with right sided low back pain. SIJ nontender Neuro Motor: Deltoid, biceps, triceps, dry starch supervisor 5/5 bilaterally. IP, quads, DF, EHL, PF 5/5 bilaterally. Pinprick-LT discrimination preserved throughout BUE and BLE, except decreased sensation at the right L5 distribution in the foot. Proprioception preserved BUE and BLE. Reflexes: Biceps, triceps, BR 2+ bilaterally. Negative Irving's bilaterally. Patellar and ankle jerks 2+ bilaterally. No clonus. Toes downgoing. Gait is normal Notes and Imaging Reviewed As in HPI, MRI Reviewed notes from EDIN MESSINA MD regarding treatment and symptoms. Assessment 1. Low back pain radiating to right leg (724.2BS) Sign and symptoms of Right L5 radicular pain, although MRI without evidence of right sided impingement. We will treat based upon these findings. Recommendations/Plan I reviewed general options for managing chronic pain including: Medications, Interventional/Surgical procedures, Physical and Behavioral modalities. In addition, I discussed options for medications including OTC preparations, NSAIDs, muscle relaxants, antidepressants, anticonvulsants, and opioids. Continue muscle relaxant and NSAID per PCP Continue PT ANTICONVULSANT therapy initiated. In some chronic pain states, the altered composition of sodium and calcium channels is thought to evoke firing at ectopic sites along the sensory pathway. Anticonvulsants may modulate both peripheral and central components of pain by several routes. In addition, some anticonvulsants have appeared to improve the analgesic effects of opioids in patients with neuropathic cancer pain. We have discussed the role of anticonvulsants in the treatment of Hieu chronic pain syndrome and side effects of the medication. We have discussed that they should not abruptly discontinue the medication as it may precipitate seizures. Hieu Tillman denies a history of renal or hepatic disease. Gabapentin???s most common side effects are sedation, dizziness, somnolence, nausea, vomiting, and edema. Dosage adjustments are necessary in patients with impaired renal function. Starting dose is 300 mg titrated to tid, I will provide this prescription, in the future Hieu Tillman PCP can taper based on side effects and benefit with with maximum of 3600 mg/day in divided doses. Prescription for 300mg, tid. Procedures Hieu Tillman has findings suggestive of right L5 nerve impingement. I have reviewed his MRI and discussed the risks and benefits of an epidural steroid injection and he would like to trial the procedure. If symptoms improve can be repeat prn (3 per 12 month period), if without benefit will consider right L5 TF. Patient denies the use of anticoagulants, pacemaker placement, active infections. + contrast allergies Prescriptions Written: Gabapentin 300mg tid Diagnostic Tests/Procedures Ordered: ?? LESI as a separate and identifiable procedure Follow-up: prn Thank you for allowing my participation in this patient's care. MISSY MANLEY MD cc: EDIN MESSINA MD None This encounter lasted 60 minutes with 35 minutes spent in [id number] education and counseling regarding management of chronic pain and coordination of care as described above. documented in this encounter Plan of Treatment Upcoming Encounters Date Type Department Care Team (Late st Contact Info) Description 01/10/2024 7:45 AM EDT Appointment Hematology [place] [address] 01/21/2024 10:[address] [place] [address] Heber Phillips MD [facility] DR HEMATOLOGY/[place] [address] 03/28/2024 10:00 AM EDT Office Visit Hematology/Oncology at [address] [address] Heber Phillips MD [facility] DR HEMATOLOGY/[place] [address] Isabella Baker APRN [facility] [place] [address] documented as of this encounter Visit Diagnoses Diagnosis Low back pain radiating to right leg- Primary Lumbago documented in this encounter Care Teams Network Security Consultant Relationship Specialty Start Date End Date Edin Messina MD [address] [place] [address] PCP - General 10/02/11 01/11/22 documented as of this encounter
--- OUTSIDE RECORDS SUMMARY | 2024-01-05 02:50 | XMS_ITS | Encounter Summary ---
Author Organization [facility] [place] [address] Care Team Providers Care Jewel Hole Driller Name Role Phone Nataliya Messina MD Primary Care Provider [phone] Encounter Details Date Type Department Care Team (Latest Contact Info) Description 12/07/2011 10:36 AM EDT - 12/07/2011 11:59 PM EDT Hospital [place] [address] Unknown None Discharge Disposition: Home Social History Tobacco Use [...] AM EDT Appointment Hematology [place] [address] 01/21/2024 10:[address] [place] [address] Heber Phillips MD [facility] DR HEMATOLOGY/[place] [address] 03/28/2024 10:00 AM EDT Office Visit Hematology/Oncology at [address] [address] Heber Phillips MD [facility] DR HEMATOLOGY/[place] [address] Isabella Baker APRN [facility] [place] [address] documented as of this encounter Visit Diagnoses Not on filedocumented in this encounter Care Teams Jewel Hole Driller Relationship Specialty Start Date End Date Nataliya Messina MD [address] [place] [place] [address] [address] [place], [place] [address] PCP - General 10/02/11 01/11/22 documented as of this encounter
--- OUTSIDE RECORDS SUMMARY | 2024-01-05 02:50 | XMS_ITS | Encounter Summary ---
Author Organization [facility] Address [facility] [place] [address] Care Team Providers Care Manager Of Supply Chain Name Role Phone Nataliya Messina MD Primary Care Provider [phone] Encounter Details Date Type Department Care Team (Late st Contact Info) Description 08/13/2011 Orders Only [place] [address] Missy Manley MD [facility] [place] [address] Social History Tobacco Use Types Packs/Day Years [...] AM EDT Appointment Hematology [place] [address] 01/21/2024 10:[address] [place] [address] Heber Phillips MD [facility] HEMATOLOGY/[place] [address] 03/28/2024 10:00 AM EDT Office Visit Hematology/Oncology at [address] [address] Heber Phillips MD [facility] DR HEMATOLOGY/[place] [address] Isabella Baker APRN [facility] [place] [address] documented as of this encounter Procedures Procedure Name Priority Date/Time Associated Diagnosis Comments FILM LIBRARY STORAGE ONLY MR SPINE Routine 08/13/2011 2:28 PM EST documented in this encounter Results * FILM LIBRARY- STORAGE ONLY MR SPINE (08/13/2011 2:28 PM EST) 08/13/2011 2:28 PM EST Narrative RAD - 12/15/2013 1:28 AM EDT This is a non-reportable exam. Procedure Note Richard Lozada - 12/15/2013 This is a non-reportable exam. Missy Manley MD [facility] FILM LIBRARY ORDERABLES Performing Organization Address City/State/[facility] Co de Phone Number [facility] [address] [facility] [place] [address] documented in this encounter Visit Diagnoses Not on filedocumented in this encounter Care Teams Manager Of Supply Chain Relationship Specialty Start Date End Date Nataliya Messina MD [address] [place] [address] PCP - General 10/02/11 01/11/22 documented as of this encounter
--- OUTSIDE RECORDS SUMMARY | 2024-01-05 02:50 | XMS_ITS | Encounter Summary ---
[place] [address] Care Team Providers Care Academic Affairs Director Name Role Phone Nataliya Messina MD Primary Care Provider [phone] Encounter Details Date Type Department Care Team (Late st Contact Info) Description 10/05/2011 Orders [place] [address] Deepa Quintero RN Neuropathic pain (Primary Dx) Social History Tobacco Use Types Packs/Day Years Used Date Smoking Tobacco: Every Day Alcohol Use Standard Drinks/Week Comments No 0 (1 standard drink = 0.6 oz pur e alcohol) Sex and Gender Information Value Date Recorded Sex Assigned at Not on file Gender Identity Not on file Sexual Orientation Not on file documented as of this encounter Progress Notes * Deepa Quintero RN - 10/05/2011 2:33 PM EDT Mr. Tillman left a message stating Dr. Manley was going to prescribe Gabapentin, but the pharmacy doesn't have a prescription. Dr. Manley consulted and prescription called to [facility] in [place]. Call placed to Mr. Tillman with this information and titration instructions. Patient knows how to contact the [facility] with any further questions or concerns. documented in this encounter Plan of Treatment Upcoming Encounters Date Type Department Care Team (Late st Contact Info) Description 01/10/2024 7:45 AM EDT Appointment Hematology [place] [address] 01/21/2024 10:[address] [place] [address] [facility] DR HEMATOLOGY/[place] [address] 03/28/2024 10:00 AM EDT Office Visit Hematology/Oncology at [address] [address] [facility] DR HEMATOLOGY/[place] [address] [facility] [place] [address] documented as of this encounter Visit Diagnoses Diagnosis Neuropathic pain- Primary Neuralgia, neuritis, and radiculitis, unspecified documented in this encounter Care Teams Academic Affairs Director Relationship Specialty Start Date End Date Nataliya Messina MD [address] [place] [address] [address] PCP - General 10/02/11 01/11/22 documented as of this encounter
--- OUTSIDE RECORDS SUMMARY | 2024-01-05 02:50 | XMS_ITS | Encounter Summary ---
Author Organization [facility] [place] [address] Care Team Providers Care Toe Trimmer Name Role Phone Nataliya Messina MD Primary Care Provider [phone] Reason for Visit * Reason Comments Carotid Stenosis Claudication Encounter Details Date Type Department Care Team (Late st Contact Info) Description 11/11/2011 3:00 PM EDT Office Visit [place] [address] Kristan Patrick MD [facility] [place] [address] Carotid stenosis, bilateral; Decreased pulses in feet; Carotid stenosis; PVD (peripheral vascular disease) Discharge Disposition: Home [...] Sign Reading Time Taken Comments Blood Pressure 143/86 11/11/2011 3:26 PM EDT rig ht arm Pulse 92 11/11/2011 3:25 PM EDT Temperature - - Respiratory Rate - - Oxygen Saturation 95% 11/11/2011 3:25 PM EDT Inhaled Oxygen Concentration - - Weight 68 kg (150 lb) 11/11/2011 3:25 PM EDT Height 170.2 cm (5' 7) 11/11/2011 3:25 PM EDT Body Mass Index 23.49 11/11/2011 3:25 PM EDT documented in this encounter Progress Notes * Kristan Patrick MD - 11/26/2011 10:58 AM EDTAddended by: KRISTAN PATRICK on: 11/26/2011 Modules accepted: Orders * Kristan Patrick MD - 11/11/2011 4:14 PM EDT Britta Saeed is a 56-year-old nondiabetic man who was seen in consultation for Dr. Messina to evaluate right leg pain with walking for a potential vascular etiology, as well as asymptomatic carotid stenosis detected on duplex scanning after a carotid bruit was found on routine exam. The patient has had right leg pain with walking for at least 5 years. This has gradually worsened to the point that he had to stop working in June. He describes having to drag his leg around because of pain that begins in his right buttock and hip and extends down into his right calf muscles. He also describes constant numbness and tingling in his right foot. He has no similar pain on the left. He has some erectile dysfunction, worsened after he began taking Flomax. He has no history of neurologic symptoms. He does have low back pain and this has been evaluated in the past with a CT scan, years ago, when hereceived dye, which caused him to have immediate hives. He had a more recent MRI. He is a heavy smoker, up to 2 packs per day his entire life. He is currently working with his primary care provider regarding smoking cessation. I spent considerable time discussing the critical importance of this because it is the cause of his atherosclerosis. We discussed best methods to stop smoking. He has previously tried Chantix, but it made him depressed. His father had a history of carotid endarterectomy. He is on low dose aspirin and a statin. On examination he appears his stated age. He is relatively thin. Carotid pulses are symmetrical andnormal. There is a right carotid bruit. He appears neurologically intact. His abdominal aortic pulse is normal. His left femoral pulse is relatively normal but the right is absent. Left popliteal pulses present as our left pedal pulses although these are subjectively reduced. Right popliteal and pedal pulses are absent. There is some dependent rubor on the right. Vascular laboratory testing shows that his carotid artery disease is mild to moderate and does not require current treatment. His leg arterial studies however showed severe arterial disease on the right with an NALDO of 0.22, and moderate disease on the left with an NALDO of 0.7. Because of his previous allergic reaction to IV contrast, he would need to be premedicated before he could have a CTA. Instead of this, I will start with a duplex arteriogram of his right leg to get a better sense of the extent of disease. He may also have low back problems causing right leg pain but he has very severe arterial disease on that side which I think is the first priority. It is critically important that he stop smoking. He will contact my office to schedule the duplex arteriogram after which I will call him to make further recommendations. 6-7 addendum: Duplex shows dilation distal aorta and iliacs, occluded R common iliac, patent external and more distal arteries. Pt must have poor collateral to have such a low NALDO with single vessel occlusion. Discussed with pt by telephone. Will arrange outpt angio and probably iliac stent, if we can cross the occlusion, and will pre-treat with steroid and benadryl because of history of hives and some difficulty breathing during CT with contrast 15 years ago. documented in this encounter Plan of Treatment Upcoming Encounters Date Type Department Care Team (Late st Contact Info) Description 01/10/2024 7:45 AM EDT Appointment Hematology [place] [address] 01/21/2024 10:[address] [place] [address] Heber Phillips MD [facility] HEMATOLOGY/[place] [address] 03/28/2024 10:00 AM EDT Office Visit Hematology/Oncology at [address] [address] Heber Phillips MD [facility] HEMATOLOGY/[place] [address] Isabella Baker APRN [facility] [place] [address] documented as of this encounter Results * NALDO, legs, multiple levels (11/11/2011 1:59 PM EDT) Pathologist [facility] Text Report Department: Vascular Surgery Lab Patient: [id number] (BRITTA SAEED) CPT Code: 20731 ICD-9: 440.22 Referring Physician: KRISTAN PATRICK Indication: ??Decreased pulses in RIGHT lower extremity, ? claudication Diabetes mellitus: ??No ICD9 Diagnosis Code: 440.22 Definitions: ??NALDO = Ankle / Brachial Systolic Pressure Index, TBI = Toe / Brachial Systolic Pressure Index Findings: Right ?Pressure (mmHg) ?? NALDO ??Waveform Brachial Artery ?131 Common Femoral Artery ? Monophasic Pop Fossa ? Monophasic Dorsalis Pedis (Ankle) Artery ?30 ? 0.22 ??Monophasic Posterior Tibial (Ankle) Artery ??28 ? 0.21 ??Monophasic Left ? Pressure (mmHg) ?? NALDO ??Waveform Brachial Artery ?134 Common Femoral Artery ? Monophasic pop Fossa ? Monophasic Dorsalis Pedis (Ankle) Artery ?90 ? 0.67 ??Monophasic Posterior Tibial (Ankle) Artery ??93 ? 0.69 ??Monophasic Interpretation: RIGHT: Severe lower extremity arterial occlusive disease. Suspect iliac artery occlusion with reconstitution vs high grade stenosis. LEFT: Moderate lower extremity arterial occlusive disease. Suspect more proximal iliac artery stenosis. Comparison: No previous study in our vascular lab database for comparison. Signed by KRISTAN PATRICK on 2011-11-11 04:18:06 PM [facility] VB Text Report End of Report [facility] 11/11/2011 1:59 PM EDT Kristan Patrick MD VASCULAR ORDERABLES [facility] * Cerebrovascular Duplex, Bilateral (11/11/2011 1:59 PM EDT) VB Text Report Department: Vascular Surgery Lab Patient: [id number] (BRITTA SAEED) CPT Code: 73363 ICD-9: 447.1 Referring Physician: KRISTAN PATRICK Indication: ?? Carotid stenosis by outside study ICD9 Diagnosis Code: 447.1 Findings: Right ICA Proximal ?PSV (cm/s): 309 ?EDV (cm/s): 80 ?ICA/CCA: 3.2 ?Plaque Structure: Echogenic ?Plaque Surface: Irregular ?%Stenosis: 50-69% ICA Distal ?PSV (cm/s): 64 ?EDV (cm/s): 28 ?ICA/CCA: 0.7 CCA Distal ?PSV (cm/s): 98 ?EDV (cm/s): 24 ?%Stenosis: Minimal CCA Proximal ?PSV (cm/s): 119 ?EDV (cm/s): 22 External Carotid Artery ?PSV (cm/s): 204 ?EDV (cm/s): 20 ?%Stenosis: >50% Vertebral ?PSV (cm/s): 69 ?EDV (cm/s): 16 Left ICA Proximal ?PSV (cm/s): 142 ?EDV (cm/s): 43 ?ICA/CCA: 1.4 ?Plaque Structure: Echogenic ?Plaque Surface: Irregular ?%Stenosis: 16-49% ICA Middle ?PSV (cm/s): 132 ?EDV (cm/s): 43 ?ICA/CCA: 1.3 ICA Distal ?PSV (cm/s): 84 ?EDV (cm/s): 23 ?ICA/CCA: 0.8 CCA Distal ?PSV (cm/s): 102 ?EDV (cm/s): 29 ?%Stenosis: Minimal CCA Proximal ?PSV (cm/s): 141 ?EDV (cm/s): 31 External Carotid Artery ?PSV (cm/s): 218 ?EDV (cm/s): 41 ?%Stenosis: >50% Vertebral ?PSV (cm/s): 75 ?EDV (cm/s): 21 Interpretation: RIGHT: There is bulky plaque in the proximal internal carotid artery causing 50-69% stenosis when compared to the more distal [...] with normal Doppler waveforms and velocities bilaterally. Comparison: No previous study in our vascular lab database for comparison. Accuracy Data: The following statistics are based on comparisons performed at [facility] between noninvasive carotid artery duplex data and arteriographic evaluation of the same patients from [id number]. Q / A Sens. Spec. PPV NPV Accuracy Carotid 93% 98% 97% 95% 96% Signed by KRISTAN PATRICK on 2011-11-11 04:18:11 PM [facility] VB Text Report End of Report [facility] 11/11/2011 1:59 PM EDT Kristan Patrick MD VASCULAR ORDERABLES [facility] documented in this encounter Visit Diagnoses Diagnosis Carotid stenosis, bilateral Occlusion and stenosis of multiple and bilateral precerebral arteries without mention of cerebral infarction Decreased pulses in feet Other symptoms involving cardiovascular system Carotid stenosis Occlusion and stenosis of carotid artery without mention of cerebral infarction PVD (peripheral vascular disease) Peripheral vascular disease, unspecified documented in this encounter Care Teams Toe Trimmer Relationship Specialty Start Date End Date Nataliya Messina MD [address] [place] [address] PCP - General 10/02/11 01/11/22 documented as of this encounter
--- OUTSIDE RECORDS SUMMARY | 2024-01-05 02:50 | XMS_ITS | Encounter Summary ---
Author Organization [place] [address] Care Team Providers Care Administrative Library Assistant Name Role Phone Nataliya Messina MD Primary Care Provider [phone] Encounter Details Date Type Department Care Team (Late st Contact Info) Description 01/18/2013 2:30 PM EDT Ancillary Appointment [place] [phone] Mary Ewing, RVT Social History Tobacco Use Types Packs/Day Years [...] AM EDT Appointment Hematology [place] [phone] 01/21/2024 10:[address] [place] [phone] Heber Phillips MD [facility] HEMATOLOGY/[place] [address] 03/28/2024 10:00 AM EDT Office Visit Hematology/Oncology at [address] [address] Heber Phillips MD [facility] DR HEMATOLOGY/[place] [address] Isabella Baker APRN [facility] [place] [place] [address] documented as of this encounter Visit Diagnoses Not on filedocumented in this encounter Care Teams Administrative Library Assistant Relationship Specialty Start Date End Date Nataliya Messina MD [address] [place] [address] PCP - General 10/02/11 01/11/22 documented as of this encounter
--- OUTSIDE RECORDS SUMMARY | 2024-01-05 02:50 | XMS_ITS | Encounter Summary ---
Author Organization [facility] [place] [address] Care Team Providers Care Head Of Biology Name Role Phone Nataliya Messina MD Primary Care Provider [phone] Encounter Details Date Type Department Care Team (Late st Contact Info) Description 01/06/2012 2:00 PM EDT Office [place] [phone] Mikki Tellez [place] PVD (peripheral vascular disease); Iliac artery occlusion Social History Tobacco Use Types Packs/Day Years [...] AM EDT Appointment Hematology [place] [phone] 01/21/2024 10:[address] [place] [address] Heber Phillips MD [facility] HEMATOLOGY/[place] [address] 03/28/2024 10:00 AM EDT Office Visit Hematology/Oncology at [address] [address] Heber Phillips MD [facility] DR HEMATOLOGY/[place] [address] Isabella Baker APRN [facility] [place] [address] documented as of this encounter Procedures Procedure Name Priority Date/Time Associated Diagnosis Comments NALDO, LEGS, MULTIPLE LEVELS Routine 01/06/2012 2:26 PM EDT PVD (peripheral vascular disease) Iliac artery occlusion documented in this encounter Results * NALDO, legs, multiple levels (01/06/2012 2:26 PM EDT) VB Text Report Department: Vascular Surgery Lab Patient: [id number] (BRITTA SAEED) CPT Code: 02636 ICD-9: 440.21 Referring Physician: KRISTAN PATRICK Indication: [...] Posterior Tibial (Ankle) Artery ??78 ? 0.56 ??Austin-Biphasic Left ? Pressure (mmHg) ?? NALDO ??Waveform Brachial Artery ?138 Dorsalis Pedis (Ankle) Artery ?90 ? 0.65 ??Austin-Biphasic Posterior Tibial (Ankle) Artery ??87 ? 0.63 ??Austin-Biphasic Interpretation: RIGHT: Moderate lower extremity arterial occlusive [...] artery documented in this encounter Care Teams Head Of Biology Relationship Specialty Start Date End Date Nataliya Messina MD [address] [place] [address] PCP - General 10/02/11 01/11/22 documented as of this encounter
--- OUTSIDE RECORDS SUMMARY | 2024-01-05 02:50 | XMS_ITS | Encounter Summary ---
Author Organization [facility] [place] [address] Care Team Providers Care Assembler Bicycle Name Role Phone Nataliya Messina MD Primary Care Provider [phone] Encounter Details Date Type Department Care Team (Late st Contact Info) Description 11/11/2011 2:00 PM EDT Office Visit [place] [phone] Lisa Rubio, RVT Carotid stenosis, bilateral; Decreased pulses in feet Social History Tobacco Use Types Packs/Day Years [...] AM EDT Appointment Hematology [place] [phone] 01/21/2024 10:[address] [place] [phone] Heber Phillips MD [facility] HEMATOLOGY/[place] [address] 03/28/2024 10:00 AM EDT Office Visit Hematology/Oncology at [address] [address] Heber Phillips MD [facility] DR HEMATOLOGY/[place] [address] Isabella Baker APRN [facility] [place] [address] documented as of this encounter Procedures Procedure Name Priority Date/Time Associated Diagnosis Comments NALDO, LEGS, MULTIPLE LEVELS Routine 11/11/2011 1:59 PM EDT Decreased pulses in feet CAROTID DUPLEX, BILATERAL Routine 11/11/2011 1:59 PM EDT Carotid stenosis, bilateral documented in this encounter Results * NALDO, legs, multiple levels (11/11/2011 1:59 PM EDT) VB Text Report Department: Vascular Surgery Lab Patient: [id number] (BRITTA SAEED) CPT Code: 60209 ICD-9: 440.22 Referring Physician: KRISTAN PATRICK Indication: [...] Text Report Department: Vascular Surgery Lab Patient: [id number] (BRITTA SAEED) CPT Code: 00764 ICD-9: 447.1 Referring Physician: KRISTAN PATRICK Indication: [...] statistics are based on comparisons performed at [facility] between noninvasive carotid artery duplex data and arteriographic evaluation of the same patients from [id number]. Q / A Sens. Spec. PPV NPV [...] in feet Other symptoms involving cardiovascular system documented in this encounter Care Teams Assembler Bicycle Relationship Specialty Start Date End Date Nataliya Messina MD [address] [place] [address] PCP - General 10/02/11 01/11/22 documented as of this encounter
--- OUTSIDE RECORDS SUMMARY | 2024-01-05 02:50 | XMS_ITS | Encounter Summary ---
Author Organization [facility] Address [facility] [place] [address] Care Team Providers Care Bilingual Patient Support Caseworker Name Role Phone Edin Messina MD Primary Care Provider Encounter Details Date Type Department Care Team (Late st Contact Info) Description 09/12/2013 8:00 AM EDT - 09/12/2013 9:00 AM EDT Surgery [place] [address] Wily Sheth MD [facility] [place] [address] CARDIAC CATHETERIZATION Social History Tobacco Use Types [...] appointments: During 8am-5pm Wednesday through Wednesday call [phone] to speak with a nurse in the cardiology clinic All other times call [phone] and ask to speak to the process improvement analyst corporate responsibility officer. Return to work: Retired Driving: No driving for 48 hours after catheterization. Follow up Appointments: PCP EDIN MESSINA MD September 20, 2013 at 2:[address] Winn In [place] October 16, 2013 at 9:20 am Home [...] I have been to Nelly Gross, tobacco water treatment operator at [facility] and could go there again. I [...] their effects. Discussed the Tobacco cessation resources: [place] quit[place] 3-599-ECOO-NOW, [facility] tobacco treatment resources and the [facility] Tobacco treatment program [phone]. Discussed alternative methods of dealing with cravings and habits around smoking. A [facility] Tobacco treatment packetwas briefly reviewed and given to pt. Plan: He plans to use local resources for quitting smoking. He will ask his clinician for a prescription for bupropion as it did work for him to help with the urges to smoke in the past and will think about using the [place] Quitline for free tobacco treatment counseling and free NRT. Laxmi Brown RN, MS, C-TTS Beeper * Candy Villegas DT - 09/13/2013 11:17 AM EDT Nutrition Services - Education Note Brtita Tillman : 1955 AGE: 58 y.o. Patient Active Problem List Diagnosis Date Noted ??? *Hospital-Chest pain 09/11/2013 ??? Hospital-Hypertension 09/11/2013 ??? Hospital-Hyperlipidemia 09/11/2013 ??? Hospital-Emphysema/COPD 09/11/2013 ??? Hospital-Carotid stenosis 10/28/2011 ??? Hospital-PVD (peripheral vascular disease) 10/28/2011 ??? Low back pain radiating to right leg Reason for Nutrition Intervention: Consult Diet Order: [facility] Appetite: good Food allergies: none Chewing/Swallowing difficulty: none (per patient) Ht Readings from Last 3 Encounters: 09/11/13 170.2 cm (5' 7) 09/11/13 170.2 cm (5' 7) 01/18/13 167.6 cm (5' 6) Wt Readings from Last 3 Encounters: 09/13/13 69.8 kg (153 lb 14.1 oz) 09/13/13 69.8 kg (153 lb 14.1 oz) 02/21/13 69.854 kg (154 lb) Body mass index is 24.10 kg/(m^2). Education: [facility] dietary guidelines. Guidelines for a Heart Healthy [...] of future questions arise. Nutrition Plan: Diet: [facility] Recommend Daily Multi Vitamins. Encourage good po intake. Monitor weight. Support and encouragement provided. Nutrition services to follow weekly thru hospital course unless consulted in the interim. ANAHI Jansen * Stevo Mccall MD - 09/13/2013 8:30 AM EDT Images from the original note were not included. Inpatient Cardiology Progress Note Patient Name: Britta Tillman Service: ALUMINA PLANT SUPERVISOR / PA Responsible Attending: Stevo Mccall MD [...] is normal. Lab Comments: Recent Labs Basename 09/13/13 0413 09/12/13 0430 09/11/13 1540 WBC 21.4* 13.0* [...] infarction, prior to cardiac cath. Intra op HI. Chest pain post procedure was different than [...] Mccall MD Janette Stender, APRN 09/13/2013 Attending Livestock Counter Discharge Day Addendum: Britta Tillman is a 58 y.o. male whom I saw today with associate provider Anitha Carlos APRN. I have independently interviewed and examined the patient and reviewed the pertinent diagnostic information. I agree with the principal findings documented above. The assessment and plan were formulated indiscussion with me. 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 Stevo Mccall MD, MS,, [facility] Staff Livestock Counter * Lisa Jamison RN - 09/12/2013 2:57 PM EDT Reviewed record and received report from Anitha Carlos NP. Did not interview patient. Per Dr. Mccall:58 y.o. male who has ruled out for myocardial infarction. Chest pain at rest x 2 overnight on heparin gtt. Will plan for cardiac cath today. Unstable angina Stent insertion Social: and lives with his in [place], [place]. [place] [employer] [facility] Anticipated discharge needs: None expected at this time. Plan: Home with support of family when medically ready. No discharge needs anticipated at this time. CRC will follow clinical status and remain available if any needs should arise. Lisa Jamison RN, BSN covering CRC Remi Sky pager [phone]. * Rafael Foote - 09/12/2013 10:25 AM EDT ABSORB III ENROLLMENT NOTE ABSORB III RANDOMIZED CONTROLLED TRIAL A Clinical Evaluation of Absorb??? BVS, the Everolimus Eluting Bioresorbable Vascular Scaffold in the Treatment of Subjects with de rupla Minto Coronary Artery Lesions PI: Rivas Montesinos MD Pager #:[phone] Research Coordinators: Rafael Foote, BS, BA, EDI CONSULTANT Pager #:[phone] Chacorta Sheikh RN Pager #: [phone] Purpose: The pivotal trial to support the [place] pre-market approval (PMA) of Absorb BVS. ABSORB III will evaluate the safety and effectiveness of the Absorb BVS System compared to the XIENCE in the treatment of subjects, including those with diabetes mellitus, with ischemic heart disease caused by up to two denovo [place]hono o'odham coronary artery lesions in separate epicardial vessels. [...] through 5 years post procedure. Study ID#: [id number], JMF NOTE: Patient must remain blinded to their assigned study device!! * Stevo Mccall MD - 09/12/2013 9:37 AM EDT Images from the original note were not included. Inpatient Cardiology Progress Note Patient Name: Britta Tillman Service: ALUMINA PLANT SUPERVISOR / PA Responsible Attending: Stevo Mccall MD [...] report to come today. Ruled out for HI. Eager to get cardiac cath over with [...] Stopped (09/12/13 0802) ??? [DISCONTINUED] heparin Stopped (09/12/13 0802) PRN Meds:aspirin, midazolam (PF), fentaNYL (PF), lidocaine, [...] today. Plan: Unstable angina, ruled out for HI On heparin gtt Cardiac cath today Echo [...] Discussed with Stevo Mccall MD Janette Stender, DEVANTE 09/12/2013 Attending Livestock Counter Addendum: Britta Tillman is a 58 y.o. male whom I saw today 09/12/2013 with associate provider KAMALJIT Alvarenga. I have independently interviewed and examined the patient and reviewed the pertinent diagnosticinformation. I agree with the principal findings documented above. The assessment and plan were formulated in discussion with me. 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 Stevo Mccall MD, MS,, [facility] Staff Livestock Counter * Rafael Foote - 09/12/2013 7:47 AM EDT ABSORB III RANDOMIZED CONTROLLED TRIAL A Clinical Evaluation of Absorb??? BVS, the Everolimus Eluting Bioresorbable Vascular Scaffold in the Treatment of Subjects with de rupal Minto Coronary Artery Lesions PI: Rivas Montesinos MD Pager #:[phone] Research Coordinators: ANIYA Pickering, BA, EDI CONSULTANT Pager #:[phone] Chacorta Sheikh RN Pager #: [phone] Purpose: The pivotal trial to support the [place] pre-market approval (PMA) of Absorb BVS. ABSORB III will evaluate the safety and effectiveness of the Absorb BVS System compared to the XIENCE in the treatment of subjects, including those with diabetes mellitus, with ischemic heart disease caused by up to two denovo [place]ham coronary artery lesions in separate epicardial vessels. [...] EMS was called and he went to [facility] for assessment. He was started on IV heparin gtt. His first troponin was normal. He had some chest discomfort on the ambulance ride down to [facility], but none since his arrival. Past Medical [...] Social History Narrative Lives with his in [place], [place]. 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 [...] MD Provider: ANITHA CARLOS APRN Provider #: [id number] 09/11/2013 Attending Livestock Counter H&P Addendum: Britta Tillman is a 58 [...] and his . Stevo Mccall MD, MS,, [facility] Staff Livestock Counter documented in this encounter Procedure Notes * Provider, Scanning - 09/14/2013 9:44 AM EDTAssociated Order(s): SCAN DOC: PROFESSOR OF RHETORIC * Provider, Scanning - 09/14/2013 9:44 AM [...] Britta Tillman Patient Age: 58 y.o. Language: Chinese Race: White Ethnicity: Not nor Admit date: 09/11/2013 Discharge date and time: 09/13/2013 Attending Physician: Stevo Mccall MD Discharge Physician: Stevo Mccall MD Follow-up Recommendations for Providers: Plavix for one year going forward due to stenting Newly started on metoprolol, follow respiratory status Encourage smoking cessation and participation with cardiac rehab Inpatient Provider Contact Information: ANITHA CARLOS, RATING OFFICER [phone] Discharge Diagnoses (Hospital Problems) and Secondary Diagnoses [...] EMS was called and he went to [facility] for assessment. He was started on IV heparin gtt. His first troponin was normal. He had some chest discomfort on the ambulance ride down to [facility], but none since his arrival. Hospital Course: Chest Pain, new CAD Given the patient's risk factors, EKG changes, it was decided to proceed with coronary angiography.The patient went to the cardiac incinerator plant laborer for a diagnostic cath which showed mid [...] appointments: During 8am-5pm Wednesday through Wednesday call [phone] to speak with a nurse in the cardiology clinic All other times call [phone] and ask to speak to the process improvement analyst corporate responsibility officer. Return to work: Retired Driving: No driving for 48 hours after catheterization. Follow up Appointments: PCP EDIN MESSINA MD September 20, 2013 at 2:[address] Winn In [place] October 16, 2013 at 9:20 am Home oxygen therapy: N/A Arrangements for VNA/home care: none Future Appointments and Orders Future Appointments: Provider: Department: Dept Phone: Center: 10/09/2013 1:30 PM Mary Ewing RVT Vascular Surgery [phone] [facility] 10/09/2013 3:00 PM Yvonne Wing, RATING OFFICER Vascular Surgery [phone] [facility] 10/16/2013 9:30 AM Lauri Winn Jr., MD [place] [facility] [phone] None Discharge References/Attachments None Anitha Carlos, DEVANTE 09/13/2013 * Consult Note - Amy Tran [...] [facility] Referral: [facility] Activity Summary: By discharge, patient will be [...] patient reported 1/10 chest pain. Anitha Carlos, RATING OFFICER updated. One SL nitro administered (please see [...] AM EDT Appointment [place] [address] 01/21/2024 10:[address] [place] [place] [address] Heber Phillips MD [facility] HEMATOLOGY/[place] [address] 03/28/2024 10:00 AM EDT Office Visit Hematology/Oncology at [address] [phone] Heber Phillips MD [facility] HEMATOLOGY/[place] [address] Isabella Baker APRN [facility] [place] [address] Scheduled Referrals Name Type Priority Associated Diagnoses Orde r Schedule Referral to Cardiac Rehab Outpatient Referral Routine Chest pain Ordered: 09/13/2013 documented as of this encounter Procedures Procedure Name Priority Date/Time Associated Diagnosis Comments PROFESSOR OF RHETORIC SCAN 09/14/2013 9:44 AM EDT CARDIAC CATH SCAN 09/14/2013 9:4 4 AM EDT MISCELLANEOUS LAB REQUEST Timed 09/13/2013 9:50 AM EDT EKG 12-LEAD Routine 09/13/2013 7:14 AM EDT Chest pain BMP W/FASTING GLUCOSE Routine 09/13/2013 4:13 AM EDT SCAN, PERIPHERAL BLOOD Routine 4 4:13 AM EDT DIFFERENTIAL, AUTOMATED Routine 09/14/19 14 4:13 AM EDT CARDIAC ENZYMES ([facility]/CGP) Routine 09/13/2013 4:13 AM EDT CBC (WITH DIFF) Routine 09/13/2013 4:13 AM EDT EKG 12-LEAD Routine 09/12/2013 11:17 AM EDT Chest pain EKG 12-LEAD Routine 09/12/2013 10:33 AM EDT Chest pain CARDIAC CATHETERIZATION Routine 09/13/19 14 10:16 AM EDT CARDIAC ENZYMES ([facility]/CGP) Routine 09/12/2013 10:05 AM EDT EKG 12-LEAD STAT 09/12/2013 7:41 AM EDT Chest pain EKG 12-LEAD Routine 09/12/2013 5:04 AM EDT Chest pain BMP W/FASTING GLUCOSE Routine 09/12/2013 4:30 AM EDT DIFFERENTIAL, MANUAL Routine 09/12/2013 4:30 AM EDT CK-MB STUDY Routine 09/12/2013 4:30 AM EDT CARDIAC ENZYMES ([facility]/CGP) Routine 09/12/2013 4:30 AM EDT APTT Timed 09/12/2013 4:30 AM EDT CBC (WITH DIFF) Routine 09/12/2013 4:30 AM EDT TSH Routine 09/12/2013 4:30 AM EDT LDL CHOLESTEROL, DIRECT Routine 09/13/19 14 4:30 AM EDT HEMOGLOBIN A1C Routine 09/12/2013 4:30 AM EDT LIPID PANEL (REFLEX DIRECT LDL) Routine 09/12/2013 4:30 AM EDT CARDIAC ENZYMES ([facility]/CGP) STAT 09/11/2013 10:00 PM EDT APTT Timed 09/11/2013 10:00 PM EDT EKG 12-LEAD STAT 09/11/2013 8:00 PM EDT Chest pain ECHOCARDIOGRAM TRANSTHORACIC Routine 09/11/2013 6:06 PM EDT Chest pain BMP W/FASTING GLUCOSE STAT 09/11/2013 3:40 PM EDT SCAN, PERIPHERAL BLOOD STAT 4 3:40 PM EDT DIFFERENTIAL, AUTOMATED STAT 09/12/19 14 3:40 PM EDT CARDIAC ENZYMES ([facility]/CGP) STAT 09/11/2013 3:40 PM EDT APTT STAT [...] SCAN EXT O RDR/RSLT * SCAN DOC: PROFESSOR OF RHETORIC (09/14/2013 9:44 AM EDT) Anatomical Region Laterality Modality Other Narrative 09/14/2013 9:47 AM EDT Procedure Note Provider, Scanning - 09/14/2013 9:44 AM EDT Scanning Provider MEDIA MGR SCAN EXT O RDR/RSLT * Miscellaneous Lab request (09/13/2013 9:50 AM EDT) [facility] Lab Result Request received in lab. [facility] Blood specimen (specimen) 09/13/2013 9:50 AM EDT 09/13/2013 10:21 AM EDT Stevo Mccall MD HEMATOLOGY ORDERABLE S Performing Organization Address City/State/[facility] de Phone Number CERNER МАРИЯENNIUM * EKG 12 Lead (09/13/2013 7:14 AM EDT) Ventricular rate 84 BPM MUSE SYSTEM Atrial Rate 84 BPM MUSE SYSTEM P-R Interval 158 ms MUSE SYSTEM QRS Duration 74 ms MUSE SYSTEM Q-T Interval 384 ms MUSE SYSTEM QTC Calculated (Bezet) 453 ms MUSE SYSTEM Calculated P [employer] 76 degrees MUSE SYSTEM Calculated R [employer] 71 degrees MUSE SYSTEM Calculated T [employer] 77 degrees MUSE SYSTEM INTERPRETATION Normal sinus rhythm Borderline criteria for Left atrial enlargement When compared with ECG of 12-SEP-2013 11:17, No significant change was found Confirmed by MD MESFIN, STEVO ([id number]) on 09/13/2013 1:31:57 PM MUSE SYSTEM 09/13/2013 7:14 AM EDT 09/13/2013 1:31 PM EDT Stevo Mccall MD ECG ORDERABLES Performing Organization Address [facility] de Phone Number MUSE SYSTEM * (ABNORMAL) [...] Gran % 0.60 0.00 - 0.66 % [facility] Comment: Immature granulocytes(IG's)percentage and absolute count will include metamyelocytes, myelocytes, and promyelocytes. Blood smears from CBCs yielding IG's will be scanned manually for concordance. If this scan disagrees with the automated IG or if promyelocytes are noted, a manual differential will be performed. Suri Gran Abs 0.12(H) 0.00 - 0.05 x10(3)/mc L [facility] Blood specimen (specimen) 09/13/2013 4:13 AM EDT 09/13/2013 4:18 AM EDT Stevo Mccall MD HEMATOLOGY ORDERABLE S Performing Organization Address [facility] Co de Phone Number [facility] * Scan, Peripheral Blood (09/13/2013 4:13 AM EDT) Plat Estimate Increased [facility] RBC Morphology Normal CERNE R MILLENNIUM Blood specimen (specimen) 09/13/2013 4:13 AM EDT 09/13/2013 4:18 AM EDT Narrative Resulting Agency Comment Spec In Lab Stevo Mccall MD HEMATOLOGY ORDERABLE S Performing Organization Address [facility] de Phone Number [facility] * (ABNORMAL) BMP w/fasting Glucose (09/13/2013 4:13 AM EDT) Glucose Fasting 116(H) 65 - 99 mg/dL [facility] Comment: ?Fasting* Glucose Interpretive Criteria Normal ?65-99 [...] of Diabetes Mellitus, Position Statement from the [place] Diabetes Association. ??Diabetes Care, Volume 33, Supplement 1, Jun 2009 BUN 19 10 - 20 mg/dL CERNER MILLENNIUM Creatinine 0.89 0.80 - 1.50 mg/dL CERNER MILLENNIUM Comment: Please note that the pediatric reference intervals supplied above were not validated at [facility]. Results from pediatric patients should be interpreted [...] In Lab Stevo Mccall MD CHEMISTRY ORDERABLES [facility] * (ABNORMAL) CBC (with Diff) (09/13/2013 4:13 AM EDT) WBC 21.4(H) 4.0 - 10.0 x10(3)/mcL CERNER MILLENNIUM RBC 4.55(L) 4.63 - 6.08 x10(6)/mcL CERNER MILLENNIUM Hemoglobin 13.6(L) 13.7 - 17.5 gm/dL CERNER MILLENNIUM Hematocrit 40.4 40.0 - 51.0 % CERNER MILLENNIUM MCV 88.8 79.0 - 92.0 fL CERNER MILLENNIUM MCH 29.9 25.6 - 32.2 pg CERNER MILLENNIUM MCHC 33.7 32.0 - 36.5 gm/dL [facility] MILLENNIUM Platelets 382(H) 145 - 370 x10(3)/mcL CERNER MILLENNIUM RDWSD 46.8(H) 35.0 - 46.0 fL CERNER MILLENNIUM RDWCV 14.5(H) 10.9 - 14.4 % CERRENAN MILLENNIUM MPV 9.7 9.0 - 12.0 fL [facility] Blood specimen (specimen) 09/13/2013 4:13 AM EDT 09/13/2013 4:18 AM EDT Narrative Resulting Agency Comment Spec In Lab Stevo Mccall MD HEMATOLOGY ORDERABLE S [facility] * (ABNORMAL) Cardiac Enzymes (09/13/2013 4:13 AM EDT) Troponin-T 1.05(H) <=0.03 ng/mL [facility] HSIEH[facility]NIUM Comment: 0.03 ng/mL: Represents the 99th percentile upper reference limit for normals. >0.03 ng/mL: Elevated cardiac troponin T level indicative of myocardial damage. Diagnosis of acute, evolving or recent HI requires a typical rise and gradual fall [...] consensus document of the Joint Society of Cardiology/[place] College [employer] Committee for the redefinition of myocardial infarction. ??Journal of the [place] College of Cardiology 2000; 36: 959-969] CK, Total 340(H) 0 - 200 unit/L CERRENAN HSIEHENNIUM Blood specimen (specimen) 09/13/2013 4:13 AM EDT 09/13/2013 4:18 AM EDT Narrative Resulting Agency Comment Spec In Lab Stevo Mccall MD CHEMISTRY ORDERABLES Performing Organization Address [facility] Co de Phone Number BRYN DOYLEIUM * EKG 12 Lead (09/12/2013 11:17 AM EDT) Ventricular rate 96 BPM MUSE SYSTEM Atrial Rate 96 BPM MUSE SYSTEM P-R Interval 154 ms MUSE SYSTEM QRS Duration 84 ms MUSE SYSTEM Q-T Interval 374 ms MUSE SYSTEM QTC Calculated (Bezet) 472 ms MUSE SYSTEM Calculated P [employer] 78 degrees MUSE SYSTEM Calculated R [employer] 74 degrees MUSE SYSTEM Calculated T [employer] 89 degrees MUSE SYSTEM INTERPRETATION Normal sinus rhythm Septal infarct , age undetermined Abnormal ECG When compared with ECG of 12-SEP-2013 10:33, No significant change was found Confirmed by PRIMO, ??BRITTA HIGUERA ([id number]) on 09/12/2013 12:26:08 PM MUSE SYSTEM 09/12/2013 11:1 7 AM EDT 09/12/2013 12:26 PM EDT Stevo Mccall MD ECG ORDERABLES Performing Organization Address [facility] Co de Phone Number MUSE SYSTEM * EKG 12 Lead (09/12/2013 10:33 AM EDT) Ventricular rate 92 BPM MUSE SYSTEM Atrial Rate 92 BPM MUSE SYSTEM P-R Interval 164 ms MUSE SYSTEM QRS Duration 74 ms MUSE SYSTEM Q-T Interval 364 ms MUSE SYSTEM QTC Calculated (Bezet) 450 ms MUSE SYSTEM Calculated P [employer] 77 degrees MUSE SYSTEM Calculated R [employer] 75 degrees MUSE SYSTEM Calculated T [employer] 85 degrees MUSE SYSTEM INTERPRETATION Normal sinus [...] * Cardiac Enzymes (09/12/2013 10:05 AM EDT) Troponin-T <0.03 <=0.03 ng/mL CERNER Cloud SecurityENNIUM Comment: 0.03 ng/mL: Represents the 99th percentile upper reference limit for normals. >0.03 ng/mL: Elevated cardiac troponin T level indicative of myocardial damage. Diagnosis of acute, evolving or recent HI requires a typical rise and gradual fall [...] consensus document of the Joint Society of Cardiology/[place] College [employer] Committee for the redefinition of myocardial infarction. ??Journal of the [place] College [employer]iology 2000; 36: 959-969] CK, Total 56 0 - 200 unit/L CERNER [facility] SecurityENNIUM Blood specimen (specimen) 09/12/2013 10:05 AM EDT 09/12/2013 10:17 AM EDT Narrative Resulting Agency Comment Spec In Lab Stevo Mccall MD CHEMISTRY ORDERABLES Performing Organization Address [facility] de Phone Number BRYN SANCHEZ * EKG 12 Lead (09/12/2013 7:41 AM EDT) Ventricular rate 78 BPM MUSE SYSTEM Atrial Rate 78 BPM MUSE SYSTEM P-R Interval 166 ms MUSE SYSTEM QRS Duration 76 ms MUSE SYSTEM Q-T Interval 394 ms MUSE SYSTEM QTC Calculated (Bezet) 449 ms MUSE SYSTEM Calculated P [employer] 77 degrees MUSE SYSTEM Calculated R [employer] 78 degrees MUSE SYSTEM Calculated T [employer] 79 degrees MUSE SYSTEM INTERPRETATION Normal sinus rhythm Cannot rule out Septal infarct , age undetermined When compared with ECG of 12-SEP-2013 05:04, (unconfirmed) No significant change was found Confirmed by PRIMO, ?BRITTA GUADARRAMA ([id number]) on 09/12/2013 11:06:23 AM MUSE SYSTEM 09/12/2013 7:41 AM EDT 09/12/2013 11:06 AM EDT Stevo Mccall MD ECG ORDERABLES Performing Organization Address [facility] Phone Number MUSE SYSTEM * EKG 12 Lead (09/12/2013 5:04 AM EDT) Ventricular rate 83 BPM MUSE SYSTEM Atrial Rate 83 BPM MUSE SYSTEM P-R Interval 162 ms MUSE SYSTEM QRS Duration 84 ms MUSE SYSTEM Q-T Interval 404 ms MUSE SYSTEM QTC Calculated (Bezet) 474 ms MUSE SYSTEM Calculated P [employer] 79 degrees MUSE SYSTEM Calculated R [employer] 78 degrees MUSE SYSTEM Calculated T [employer] 84 degrees MUSE SYSTEM INTERPRETATION Normal sinus rhythm Septal infarct (cited on or before 11-SEP-2013) When compared with ECG of 11-SEP-2013 20:00, No significant change was found Confirmed by PRIMO, ??BRITTA HIGUERA ([id number]) on 09/12/2013 11:05:45 AM MUSE SYSTEM 09/12/2013 5:04 AM EDT 09/12/2013 11:05 AM EDT Stevo Mccall MD ECG ORDERABLES Performing Organization Address [facility] de Phone Number MUSE SYSTEM * CK-MB Study (09/12/2013 4:30 AM EDT) CK, Total 63 0 - 200 unit/L CERNER MILLENNIUM CK-MB 1.9 0.0 - 5.0 mcg/L CERNER MILLENNIUM CKMB Index 3.0 0.0 - 5.0 mcg/u CERNER MILLENNIUM Blood specimen (specimen) 09/12/2013 4:30 AM EDT 09/12/2013 8:28 AM EDT Narrative Resulting Agency Comment Spec In Lab Stevo Mccall MD CHEMISTRY ORDERABLES CERNER MILLENNIUM * (ABNORMAL) Differential, Manual (09/12/2013 4:30 AM EDT) Pathologist [facility] Neutrophil % 87(H) 34 - 71 % [...] MD HEMATOLOGY ORDERABLE S Performing Organization Address [facility] [place] [facility] [facility] de Phone Number BRYN SANCHEZ * Cardiac Enzymes (09/12/2013 4:30 AM EDT) Troponin-T <0.03 <=0.03 ng/mL [facility] Comment: 0.03 ng/mL: Represents the 99th percentile upper reference limit for normals. >0.03 ng/mL: Elevated cardiac troponin T level indicative of myocardial damage. Diagnosis of acute, evolving or recent HI requires a typical rise and gradual fall [...] consensus document of the Joint Society of Cardiology/[place] [employer] Committee for the redefinition of myocardial infarction. ??Journal of the [place] College [employer] 2000; 36: 959-969] CK, Total 60 0 - 200 unit/L [facility] Blood specimen (specimen) 09/12/2013 4:30 AM EDT 09/12/2013 4:42 AM EDT Narrative Resulting Agency Comment Spec In Lab Stevo Mccall MD CHEMISTRY ORDERABLES Performing Organization Address [facility] de Phone Number [facility] SANCHEZ * (ABNORMAL) BMP w/fasting Glucose (09/12/2013 4:30 AM EDT) Glucose Fasting 164(H) 65 - 99 mg/dL [facility] Comment: ?Fasting* Glucose Interpretive Criteria Normal ?65-99 [...] of Diabetes Mellitus, Position Statement from the [place] [employer]. ??Diabetes Care, Volume 33, Supplement 1, Jun 2009 BUN 28(H) 10 - 20 mg/dL CERNER MILLENNIUM Creatinine 0.96 0.80 - 1.50 mg/dL CERNER MILLENNIUM Comment: Please note that the pediatric reference intervals supplied above were not validated at [facility]. Results from pediatric patients should be interpreted [...] In Lab Stevo Mccall MD CHEMISTRY ORDERABLES CERRENAN HSIEHENNIUM * (ABNORMAL) CBC (with Diff) (09/12/2013 4:30 [...] MD HEMATOLOGY ORDERABLE S Performing Organization Address [facility] de Phone Number BRYN HSIEHENNIUM * (ABNORMAL) APTT (09/12/2013 4:30 AM EDT) PTT 104(H) 25 - 35 sec CERNER MILLENNIUM Comment: Recommended therapeutic PTT range for full dose unfractionated heparin is 80-114 seconds. Blood specimen (specimen) 09/12/2013 4:30 AM EDT 09/12/2013 4:41 AM EDT Narrative Resulting Agency Comment Spec In Lab Stevo Mccall MD HEMATOLOGY ORDERABLE S Performing Organization Address [facility] Co de Phone Number CERRENAN HSIEHENNIUM * LDL Cholesterol, Direct (09/12/2013 4:30 AM EDT) LDL Chol Direct 85 <=99 mg/dL [facility] Comment: The National Cholesterol Education Program (NCEP) has set the following guidelines for LDL Cholesterol: Reference range: ?? Optimal: ?<100 mg/dL ?? Near Optimal/Above Optimal: ?? 100-129 mg/dL ?? Borderline high: ?130-159 mg/dL ?? High: ? 160-189 mg/dL ?? Very high: ?>ie=051 mg/dL DAO 2001: 285(32):3796-7386 Blood specimen (specimen) 09/12/2013 4:30 AM EDT 09/12/2013 4:41 AM EDT Narrative Resulting Agency Comment Spec In Lab Stevo Mccall MD CHEMISTRY ORDERABLES [facility] * (ABNORMAL) Hemoglobin A1c (09/12/2013 4:30 AM EDT) Hemoglobin A1C 6.1(H) <=5.6 % KATHY Etienne [facility] Comment: As of 2013 the methodology for [...] 1, S67-74 Est Avg Gluc 128 mg/dL BRYN [facility] Comment: eAG equivalents for HbA1c percentages: HbA1c(%) [...] into estimated average glucose values. ??Diabetes Care 2008:31(8):6930-8572. Blood specimen (specimen) 09/12/2013 4:30 AM EDT 09/12/2013 4:41 AM EDT Narrative Resulting Agency Comment Spec In Lab Stevo Mccall MD CHEMISTRY ORDERABLES [facility] * (ABNORMAL) Lipid panel (fasting) (09/12/2013 4:30 AM EDT) Chol, Total 138 <=199 mg/dL [facility] Comment: Recommendations of the NCEP Adult Treatment Panel for the following risk cutoff thresholds for the [place] population: Desirable: <200 mg/dL Borderline High: 200-239 mg/dL High: > or = 240 mg/dL Triglycerides 59 <=149 mg/dL [facility] Comment: Reference Range: Normal triglycerides: ??<150 mg/dL Borderline high: ??150-199 mg/dL High: ??200-499 mg/dL Very high: ??>tl=994 mg/dL DAO 2001; 285(19):0607-6880 HDL 39(L) >=40 mg/dL [facility] Comment: Reference range: ??Low HDL: ?? < 40 mg/dL ??Normal: ?40-60 mg/dL ??Desirable: > 60 mg/dL [facility] 2001; 285(19):5776-0154 LDL Cholesterol 87 <=99 mg/dL [facility] Comment: Reference range: ?? Optimal: ?<100 mg/dL ?? Near Optimal/Above Optimal: ?? 100-129 mg/dL ?? Borderline high: ?130-159 mg/dL ?? High: ? 160-189 mg/dL ?? Very high: ?>vh=463 mg/dL [facility] 2001: 285(19):1615-4061 Chol/HDL Ratio 3.5 ratio [facility] Comment: A Cholesterol to HDL ratio below 4:1 is desirable. ??Studies suggest that increased CAD risk occurs at ratios above 5 for females and above 6 for men. ? [place] [employer] Association ??(http://www.americanheart.org) ? Jeri Int Med, 1994; 121:641 ? AM J Med, 1998; 105(1A):48S Blood specimen (specimen) 09/12/2013 4:30 AM EDT 09/12/2013 4:41 AM EDT Narrative Resulting Agency Comment Spec In Lab Stevo Mccall MD CHEMISTRY ORDERABLES [facility] * TSH (09/12/2013 4:30 AM EDT) TSH 0.54 0.27 - 4.20 mcIU/mL BRYN SANCHEZ Blood specimen (specimen) 09/12/2013 4:30 AM EDT 09/12/2013 4:41 AM EDT Narrative Resulting Agency Comment Spec In Lab Stevo Mccall MD CHEMISTRY ORDERABLES Performing Organization Address [facility] de Phone Number BRYN SANCHEZ * Cardiac Enzymes (09/11/2013 10:00 PM EDT) [facility] Troponin-T <0.03 <=0.03 ng/mL [facility] Comment: 0.03 ng/mL: Represents the 99th percentile upper reference limit for normals. >0.03 ng/mL: Elevated cardiac troponin T level indicative of myocardial damage. Diagnosis of acute, evolving or recent HI requires a typical rise and gradual fall [...] consensus document of the Joint Society of Cardiology/[place] College [employer] Cardiology Committee for the redefinition of myocardial infarction. ??Journal of the [place] College of Cardiology 2000; 36: 959-969] CK, Total 66 0 - 200 unit/L BRYN SANCHEZ Blood specimen (specimen) 09/11/2013 10:00 PM EDT 09/11/2013 10:05 PM EDT Narrative Resulting Agency Comment Spec In Lab Stevo Mccall MD CHEMISTRY ORDERABLES Performing Organization Address [facility] Co de Phone Number BRYN SANCHEZ * (ABNORMAL) APTT (09/11/2013 10:00 PM EDT) Pathologist [facility] PTT 58(H) 25 - 35 sec BRYN DOYLEIUM Comment: Recommended therapeutic PTT range for full dose unfractionated heparin is 80-114 seconds. Blood specimen (specimen) 09/11/2013 10:00 PM EDT 09/11/2013 10:05 PM EDT Narrative Resulting Agency Comment Spec In Lab Stevo Mccall MD HEMATOLOGY ORDERABLE S Performing Organization Address [facility] Co de Phone Number BRYN SANCHEZ * EKG 12 Lead (09/11/2013 8:00 PM EDT) Ventricular rate 78 BPM MUSE SYSTEM Atrial Rate 78 BPM MUSE SYSTEM P-R Interval 164 ms MUSE SYSTEM QRS Duration 74 ms MUSE SYSTEM Q-T Interval 380 ms MUSE SYSTEM QTC Calculated (Bezet) 433 ms MUSE SYSTEM Calculated P [employer] 74 degrees MUSE SYSTEM Calculated R [employer] 74 degrees MUSE SYSTEM Calculated T [employer] 90 degrees MUSE SYSTEM INTERPRETATION Normal sinus rhythm Septal infarct (cited on or before 11-SEP-2013 ) Abnormal ECG Confirmed by PRIMO, ??BRITTA HIGUERA ([id number]) on 09/12/2013 11:05:39 AM MUSE SYSTEM 09/11/2013 8:00 PM EDT 09/12/2013 11:05 AM EDT Stevo Mccall MD ECG ORDERABLES Performing Organization Address [facility] Co de Phone Number MUSE SYSTEM * Echocardiogram Transthoracic(Leb) (09/11/2013 6:06 PM EDT) Anatomical Region Laterality Modality Other 09/12/2013 Narrative 09/12/2013 9:23 AM EDT Procedure: ? Transthoracic Echocardiogram Patient: ? CHRISTOPHE Roche ?(Age): 1955(58) Med Rec#: ?[id number] ? Sex: ?M ? Site Loc: ?[facility] ? Ht / Wt: ??170(cm)/69(kg) Pt. Loc: ? Adult Floor ?BSA: ?1.81 Study Date: ?09/11/2013 ? Pt. Type: Inpatient Tape: ? Referring: Stevo Mccall ??([id number]) Referring: ZARINA Vice President Of Instruction: Nika Fernandez Interpreting Fellow: Vicente Godwin ??([id number]) Diagnosis:CPT Code(s): ??Echo Full (80200), ??Spectral Doppler (60821), Color Doppler (35946), Indication(s): ??Chest Pain Rhythm: Sinus HR ?BP [...] ? Mid-Inferior ?Normal ? Mid-Inferoseptal ?Normal ? [place]-Septal ? Normal ? [place]-Anterior ? Normal ? [place]-Lateral ?Normal ? [place]-Inferior ? Normal ? [place]-Tip ?Normal ? Chambers ?Value ?Units (Range) ? [...] 09/12/2013 09:22:35 Images reviewed and interpretation verified [facility] Cardiac Ultrasound Laboratory Procedure Note Luis Azar MD - 09/12/2013 Procedure: Transthoracic Echocardiogram Patient: CHRISTOPHE Roche (Age): 1955(58) Med Rec#: [id number] Sex: M Site Loc: [facility] Ht / Wt: 170(cm)/69(kg) Pt. Loc: Adult Floor BSA: 1.81 Study Date: 09/11/2013 Pt. Type: Inpatient Tape: Referring: Stevo Mccall (94) Referring: ZARINA Vice President Of Instruction: Nika Fernandez Interpreting Fellow: Vicente Godwin ([id number]) Diagnosis:CPT Code(s): Echo Full (37605), Spectral Doppler (47457), Color Doppler (48985), Indication(s): Chest Pain Rhythm: Sinus HR BP [...] Normal Mid-Posterolateral Normal Mid-Inferior Normal Mid-Inferoseptal Normal [place]-Septal Normal [place]-Anterior Normal [place]-Lateral Normal [place]-Inferior Normal [place]-Tip Normal Chambers Value Units (Range) EF Bi-p [...] been electronically signed by: Luis Azar MD 09/12/2013 09:22:35 Images reviewed and interpretation verified [facility] Cardiac Ultrasound Laboratory Stevo Mccall [...] MD HEMATOLOGY ORDERABLE S Performing Organization Address [facility] Co de Phone Number BRYN HSIEHENNIUM * Scan, Peripheral Blood (09/11/2013 3:40 PM EDT) Plat Estimate Increased CERNER MILLENNIUM RBC Morphology Normal CERNE R MILLENNIUM Smudge Cells Present CERNER MILLENNIUM Blood specimen (specimen) 09/11/2013 3:40 PM EDT 09/11/2013 4:04 PM EDT Narrative Resulting Agency Comment Spec In Lab Stevo Mccall MD HEMATOLOGY ORDERABLE S Performing Organization Address [facility] de Phone Number CERRENAN HSIEHENNIUM * Cardiac Enzymes (09/11/2013 3:40 PM EDT) Troponin-T <0.03 <=0.03 ng/mL CERNER МАРИЯENNIUM Comment: 0.03 ng/mL: Represents the 99th percentile upper reference limit for normals. >0.03 ng/mL: Elevated cardiac troponin T level indicative of myocardial damage. Diagnosis of acute, evolving or recent HI requires a typical rise and gradual fall [...] consensus document of the Joint Society of Cardiology/[place] [employer] Committee for the redefinition of myocardial infarction. ??Journal of the [place] College [employer]iology 2000; 36: 959-969] CK, Total 70 0 - 200 unit/L CERNER MILLENNIUM Blood specimen (specimen) 09/11/2013 3:40 PM EDT 09/11/2013 4:04 PM EDT Narrative Resulting Agency Comment Spec In Lab Stevo Mccall MD CHEMISTRY ORDERABLES Performing Organization Address [facility]/State/[facility] Co de Phone Number BRYN HSIEHENNIUM * (ABNORMAL) CBC (with Diff) (09/11/2013 3:40 PM EDT) WBC 10.9(H) 4.0 - 10.0 x10(3)/mcL CERNER MILLENNIUM RBC 5.05 4.63 - 6.08 x10(6)/mcL CERNER MILLENNIUM Hemoglobin 15.1 13.7 - 17.5 gm/dL CERNER MILLENNIUM Hematocrit 44.4 40.0 - 51.0 % CERNER MILLENNIUM MCV 87.9 79.0 - 92.0 fL CERNER MILLENNIUM MCH 29.9 25.6 - 32.2 pg CERNER MILLENNIUM MCHC 34.0 32.0 - 36.5 gm/dL [facility] MILLEN[facility]UM Platelets 414(H) 145 - 370 x10(3)/mcL CERNER MILLENNIUM RDWSD 45.5 35.0 - 46.0 fL CERNER MILLENNIUM RDWCV 14.3 10.9 - 14.4 % CERNER MILLENNIUM MPV 9.8 9.0 - 12.0 fL CERNER MILLENNIUM Blood specimen (specimen) 09/11/2013 3:40 PM EDT 09/11/2013 4:04 PM EDT Narrative Resulting Agency Comment Spec In Lab Stevo Mccall MD HEMATOLOGY ORDERABLE S Performing Organization Address [facility] de Phone Number BRYN DOYLEIUM * (ABNORMAL) APTT (09/11/2013 3:40 PM EDT) PTT 39(H) 25 - 35 sec CERNER MILLENNIUM Comment: Recommended therapeutic PTT range for full dose unfractionated heparin is 80-114 seconds. Blood specimen (specimen) 09/11/2013 3:40 PM EDT 09/11/2013 4:04 PM EDT Narrative Resulting Agency Comment Spec In Lab Stevo Mccall MD HEMATOLOGY ORDERABLE S Performing Organization Address City/State/[facility] Co de Phone Number BRYN DOYLEIUM * Prothrombin Time (09/11/2013 3:40 PM EDT) PT 12.8 12.0 - 15.0 sec CERNER MILLENNIUM Comment: [facility] Transfusion Committee Guidelines: INR less than 2.0, PTT less than OR equal to 43.5 seconds, or Fibrinogen greater than or equal to 100 mg/dl indicate adequate procoagulant activity for hemostasis in patients without underlying bleeding disorders. INR 0.9 0.9 - 1.1 CERNER MILLENNIUM Blood specimen (specimen) 09/11/2013 3:40 PM EDT 09/11/2013 4:04 PM EDT Narrative Resulting Agency Comment Spec In Lab Stevo Mccall MD HEMATOLOGY ORDERABLE S CERNER MILLENNIUM * (ABNORMAL) BMP w/fasting Glucose (09/11/2013 3:40 PM EDT) Glucose Fasting 105(H) 65 - 99 mg/dL CERNER MILLENNIUM Comment: [...] of Diabetes Mellitus, Position Statement from the [place] [employer]. ??Diabetes Care, Volume 33, Supplement 1, Jun 2009 BUN 23(H) 10 - 20 mg/dL CERNER MILLENNIUM Creatinine 1.09 0.80 - 1.50 mg/dL CERNER MILLENNIUM Comment: Please note that the pediatric reference intervals supplied above were not validated at [facility]. Results from pediatric patients should be interpreted [...] (Bezet) 430 ms MUSE SYSTEM Calculated P [employer] 75 degrees MUSE SYSTEM Calculated R [employer] 76 degrees MUSE SYSTEM Calculated T [employer] 91 degrees MUSE SYSTEM INTERPRETATION Normal sinus [...] MAR Action Action Date Dose Rate Site aspirin chewable tablet ONCE PRN, Starting on Wed09/12/13 at 0828, Until Wed09/12/13 at 1040, Cath (Intra-Procedure), Routine Given 09/12/2013 8:28 AM EDT 81 mg bivalirudin (ANGIOMAX) 250 mg in sodium chloride 0.9% 50 mL infusion (LAPEL STITCHER) CONTINUOUS PRN, Starting on Wed09/12/13 at 0936, Until Wed09/12/13 at 1040, Cath (Intra-Procedure), Routine New Bag 09/12/2013 9:36 AM EDT 170.8 mg/hr 34.2 mL/hr bivalirudin (ANGIOMAX) injection ONCE PRN, Starting on Wed09/12/13 at 0933, Until Wed09/12/13 at 1040, Intra-Operative (Intra-Procedure), Routine Given 09/12/2013 9:33 AM EDT 51.8 mg clopidogrel (PLAVIX) tablet ONCE PRN, Starting on Wed09/12/13 at 0927, Until Wed09/12/13 at 1040, Intra-Operative (Intra-Procedure), Routine Given 09/12/2013 9:27 AM EDT 600 mg fentaNYL 50mcg/mL injection ONCE PRN, Starting on Wed09/12/13 at 0836, Until Wed09/12/13 at 1016, Pain, Intra-Operative (Intra-Procedure), Routine Given 09/12/2013 8:36 AM EDT 25 mcg fentaNYL 50mcg/mL injection ONCE PRN, Starting on Wed09/12/13 at 0857, Until Wed09/12/13 at 1016, Pain, Cath (Intra-Procedure), Routine Given 09/12/2013 8:57 AM EDT 25 mcg fentaNYL 50mcg/mL injection ONCE PRN, Starting on Wed09/12/13 at 0958, Until Wed09/12/13 at 1016, Pain, Cath (Intra-Procedure), Routine Given 09/12/2013 9:58 AM EDT 25 mcg iohexol (OMNIPAQUE) 350 mg iodine/mL injection ONCE PRN, Starting on Wed09/12/13 at 1012, Until Wed09/12/13 at 1040, Per Protocol, Cath (Intra-Procedure), Routine Given 09/12/2013 10:12 AM EDT 200 mLs lidocaine (XYLOCAINE) 10 mg/mL (1 %) injection ONCE PRN, Starting on Wed09/12/13 at 0837, Until Wed09/12/13 at 1040, Cath (Intra-Procedure), Routine Given 09/12/2013 8:37 AM EDT 20 mg midazolam (PF) (VERSED) 1 mg/mL injection ONCE PRN, Starting on Wed09/12/13 at 0835, Until Wed09/12/13 at 1016, Sleep, Cath (Intra-Procedure), Routine Given 09/12/2013 9:58 AM EDT 1 mg Given 09/12/2013 8:35 AM EDT 1 mg nitroGLYCerin 100 mcg/mL intracoronary dilution ONCE PRN, Starting on Wed09/12/13 at 0937, Until Wed09/12/13 at 1040, Cath (Intra-Procedure), Routine Given 09/12/2013 9:37 AM EDT 150 mcg nitroGLYCerin 100 mcg/mL intracoronary dilution ONCE PRN, Starting on Wed09/12/13 at 0946, Until Wed09/12/13 at 1040, Cath (Intra-Procedure), Routine Given 09/12/2013 10:04 AM EDT 100 mcg Given 09/12/2013 9:46 AM EDT 150 mcg sodium chloride 0.9% infusion CONTINUOUS PRN, Starting on Wed09/12/13 at 1012, Until Wed09/12/13 at 1040, Cath (Intra-Procedure) New Bag 09/12/2013 10:12 AM EDT 150 mLs documented in this encounter Active and Recently [...] at 0815, Cath (Day of Procedure), Routine 08 (Given - Provider: Gabby Giles RN) diphenhydrAMINE (BENADRYL) capsule 25 mg (COMPLETED) 25 mg, Oral, ONCE, 1 dose, On Wed09/12/13 at 0815, Cath (Day of Procedure), Routine 08 (Given - Provider: Gabby Giles RN) fluticasone-salmeterol (ADVAIR HFA) 115-21 mcg/actuation inhaler 2 puff (CANCELED) 2 puff, Inhalation, EVERY 12 HOURS SCHEDULED (2 times per day), First dose on Wed09/11/13 at 2100, Until Discontinued, Rinse mouth after administration 2013 (Given - Provider: Mare Fallon RN) 133 (Given - Provider: Gabby Giles RN)2014 (Given - Provider: Gabby Rao RN) 0900 (Given - Provider: Juan Manuel Ellis RN) ipratropium-albuterol (DUONEB) 0.5 mg-3 mg(2.5 mg base)/3 mL nebulizer solution 3 mL (CANCELED) 3 mL, Nebulization, 4 TIMES DAILY, First dose on Wed09/11/13 at 1700, Until Discontinued, Routine 1653 (Given - Provider: Gabby Rao, BOB)2013 (Given - Provider: Mare Fallon RN) 0900 [...] 0900 (Given - Provider: Juan Manuel Ellis, RN) metoprolol (LOPRESSOR) tablet 12.5 mg (CANCELED) 12.5 [...] (Given - Provider: Juan Manuel Ellis, BOB) nicotine (NICODERM CQ) patch REMOVAL (CANCELED)(Linked Group 1) Transdermal, DAILY, First dose on Wed09/13/13 at 0900, Until Discontinued, Remove Nicotine Patch 0900 (Given - Provider: Juan Manuel Ellis, BOB) predniSONE (DELTASONE) tablet 60 mg (COMPLETED) 60 mg, Oral, EVERY 6 HOURS SCHEDULED, 3 doses, First dose on Wed09/11/13 at 1800, Last dose on Wed09/12/13 at 0600, 60mg twice daily the day before and at 6 am on the day of procedure., STAT 1807 (Given - Provider: Mare Fallon RN) 0007 (Given - Provider: Pushpa Lopez RN)0634 (Given - Provider: Pushpa Lopez RN) senna (SENOKOT) tablet 8.6 mg (CANCELED) 8.6 mg, Oral, 2 TIMES DAILY, First dose on Wed09/13/13 at 1045, Until Discontinued, Routine 1045 (Given - Provider: Juan Manuel Ellis RN) Continuous Medication Order 09/11/2013 09/12/2013 09/13/2013 heparin [...] 145 sec X 2 - call warehouse engineer See Bolus dosing guidance for aPTT values [...] Pushpa Lopez RN)0802 (Stopped - Provider: Gabby Giles RN) lactated ringers infusion (CANCELED) 100 mL/hr, Intravenous, CONTINUOUS, Starting on Wed09/12/13 at 0000, Until Wed09/13/13 at 1428 0007 (New Bag - Provider: Pushpa Lopez RN)0802 (Stopped - Provider: Gbaby Giles RN) sodium chloride 0.9% infusion () 100 [...] Until Wed09/12/13 at 1040, Cath (Intra-Procedure), Routine 0828 (Given - Provider: Aristides Paulino RN) bivalirudin (ANGIOMAX) 250 mg in sodium chloride 0.9% 50 mL infusion (LAPEL STITCHER) (CANCELED) CONTINUOUS PRN, Starting on Wed09/12/13 at 0936, Until Wed09/12/13 at 1040, Cath (Intra-Procedure), Routine 0936 (New Bag - Provider: Omero Ward RN) bivalirudin (ANGIOMAX) injection (CANCELED) ONCE PRN, Starting on Wed09/12/13 at 0933, Until Wed09/12/13 at 1040, Intra-Operative (Intra-Procedure), Routine 0933 (Given - Provider: Omero Ward RN) clopidogrel (PLAVIX) tablet (CANCELED) ONCE PRN, Starting on Wed09/12/13 at 0927, Until Wed09/12/13 at 1040, Intra-Operative (Intra-Procedure), Routine 0927 (Given - Provider: Bryce Campos) fentaNYL 50mcg/mL injection (CANCELED) ONCE PRN, Starting on Wed09/12/13 at 0836, Until Wed09/12/13 at 1016, Pain, Intra-Operative (Intra-Procedure), Routine 0836 (Given - Provider: Omero Ward RN) fentaNYL [...] Omero Ward RN)0835 (Given - Provider: Omero Ward RN)0958 (Given - Provider: Omero Ward RN) nitroGLYcerin [...] Lopez RN)1050 (Given - Provider: Kanika Dillon, BOB - Comment: given per Dr Sheth)1145 (Given - Provider: Kanika Dillon, BOB)1347 (Given - Provider: Gabby Giles RN) nitroGLYCerin 100 mcg/mL intracoronary dilution (CANCELED) ONCE PRN, Starting on Wed09/12/13 at 0937, Until Wed09/12/13 at 1040, Cath (Intra-Procedure), Routine 0937 (Given - Provider: Wily Sheth MD) nitroGLYCerin 100 mcg/mL intracoronary dilution (CANCELED) ONCE PRN, Starting on Wed09/12/13 at 0946, Until Wed09/12/13 at 1040, Cath (Intra-Procedure), Routine 0946 (Given - Provider: Wily Sheth MD)1004 (Given - Provider: Wily Sheth MD) sodium chloride 0.9% infusion (CANCELED) CONTINUOUS PRN, Starting on Wed09/12/13 at 1012, Until Wed09/12/13 at 1040, Cath (Intra-Procedure) 1012 (New Bag - Provider: Omero Ward, BOB) No Frequency Medication Order 09/11/2013 09/12/2013 09/13/2013 [...] Patch documented in this encounter Care Teams Bilingual Patient Support Caseworker Relationship Specialty Start Date End Date Edin Messina MD [address] [place], [place] [address]Y [facility] [address] [place] [address] PCP - General 10/02/11 01/11/22 documented as of this encounter
--- OUTSIDE RECORDS SUMMARY | 2024-01-05 02:50 | XMS_ITS | Encounter Summary ---
Author Organization Formerly [facility] [place] [address] Care Team Providers Care Turbine Engine Assembler Name Role Phone Nataliya Messina MD Primary Care Provider [phone] Encounter Details Date Type Department Care Team (Late st Contact Info) Description 05/05/2009 Orders [place] [phone] Nataliya Messina MD [address] [place] [address] [id number] Social History Tobacco Use Types Packs/Day Years [...] AM EDT Appointment Hematology [place] [phone] 01/21/2024 10:[address] [place] [place] [phone] Heber Phillips MD [facility] [address] HEMATOLOGY/[place] [address] 03/28/2024 10:00 AM EDT Office Visit Hematology/Oncology at [address] [phone] Heber Phillips MD [facility] DR HEMATOLOGY/[place] [address] Isabella Baker APRN [facility] [place] [address] documented as of this encounter Procedures Procedure Name Priority Date/Time Associated Diagnosis Comments FILM LIBRARY STORAGE ONLY DX CHEST Routine 05/05/2009 11:20 AM EST documented in this encounter Results * FILM LIBRARY- STORAGE ONLY DX CHEST (05/05/2009 11:20 AM EST) 05/05/2009 11:2 0 AM EST Narrative [facility] - 12/15/2013 1:53 AM EDT This is a non-reportable exam. Procedure Note Richard Lozada - 12/15/2013 This is a non-reportable exam. Nataliya Messina MD IMG FILM LIBRARY OR DERABLES [facility] [address] [facility] [place] [address] documented in this encounter Visit Diagnoses Not on filedocumented in this encounter Care Teams Turbine Engine Assembler Relationship Specialty Start Date End Date Nataliya Messina MD [address] [place] [address] [address] [facility] [address] [place] [address] PCP - General 10/02/11 01/11/22 documented as of this encounter
--- OUTSIDE RECORDS SUMMARY | 2024-01-05 02:50 | XMS_ITS | Clinical Summary ---
Author Organization [facility] Address [address] [place] [address] Care Team Providers Care Diagnostic Tech Name Role Phone Unknown, Provider Primary Care Provider [phone] Social History Tobacco Use Types Packs/Day Years Used Date Smoking Tobacco: Never Assessed Interpersonal Safety Answer Date Record ed Physically Hurt Never 01/21/2020 Verbally Threaten Not on file 01/21/2020 Sex and Gender Information Value Date Recorded Sex Assigned at Not on file Gender Identity Not on file Sexual Orientation Not on file Plan of Treatment Health Maintenance Due Date Last Done Comments Hepatitis C Screen 1955 RSV Immunization ( o r 60+ Years) (1 - 1-dose 60+ series) 2014 Fall Risk Screening 09/07/2019 COVID-19 Vaccine (2022-24 season) 2023 Care Teams Diagnostic Tech Relationship Specialty Start Date End Date Unknown, Provider, PCP - General 04/26/15
--- OUTSIDE RECORDS SUMMARY | 2024-01-05 02:50 | XMS_ITS | Encounter Summary ---
Author Organization [facility] [place] [address] Care Team Providers Care Chemical Research Engineer Name Role Phone Nataliya Messina MD Primary Care Provider [phone] Encounter Details Date Type Department Care Team (Late st Contact Info) Description 09/11/2013 Orders Only Cardiology at [address] [phone] Stevo Mccall MD [facility] [place] [place] [address] Social History Tobacco Use Types Packs/Day Years [...] AM EDT Appointment [place]ematology [place] [address] 01/21/2024 10:[address] [place] [address] Heber Phillips MD [facility] DR HEMATOLOGY/ONCOLOGY [place], [place] [id number] 03/28/2024 10:00 AM EDT Office Visit Hematology/Oncology at [address] [phone] Heber Phillips MD [facility] DR HEMATOLOGY/[place] [address] Isabella Baker APRN [facility] [place] [address] documented as of this encounter Procedures Procedure Name Priority Date/Time Associated Diagnosis Comments FILM LIBRARY STORAGE ONLY DX CHEST Routine 09/11/2013 11:05 AM EDT documented in this encounter Results * Film Library- Storage only DX Chest (09/11/2013 11:05 AM EDT) Anatomical Region Laterality Modality Other 09/11/2013 11:0 5 AM EDT Narrative 09/11/2013 11:07 AM EDT This is a Non-reportable exam Procedure Note 09/11/2013 This is a Non-reportable exam Stevo Mccall MD IMG FILM LIBRARY ORD ERABLES documented in this encounter Visit Diagnoses Not on filedocumented in this encounter Care Teams Chemical Research Engineer Relationship Specialty Start Date End Date Nataliya Messina MD [address] [place], [place] [address] PCP - General 10/02/11 01/11/22 documented as of this encounter
--- OUTSIDE RECORDS SUMMARY | 2024-01-05 02:50 | XMS_ITS | Encounter Summary ---
Author Organization [facility] [place] [address] Care Team Providers Care Training Engineer Name Role Phone Nataliya Messina MD Primary Care Provider [phone] Encounter Details Date Type Department Care Team (Late st Contact Info) Description 11/12/2011 Orders Only [place] [phone] Kristan Patrick MD [facility] [address] VASCULAR SURGERY [place], [place] [phone] Atherosclerotic peripheral vascular disease with rest pain (Primary Dx) Social History Tobacco Use [...] Appointment Hematology [place] [address] 01/21/2024 10:[address] [place] [address] Heber Phillips MD [facility] DR HEMATOLOGY/[place] [address] 03/28/2024 10:00 AM EDT Office Visit Hematology/Oncology at [address] [phone] Heber Phillips MD [facility] DR HEMATOLOGY/[place] [address] Isabella Baker APRN [facility] [place] [address] documented as of this encounter Results * Arterial Duplex Leg, Unil (11/25/2011 8:59 AM EDT) VB Text Report Department: Vascular Surgery Lab Patient: [id number] (BRITTA SAEED) CPT Code: 78549 ICD-9: 440.20 Referring Physician: KRISTAN PATRICK Indication: ?PVOD, right claudication, preop ICD9 Diagnosis [...] of 1.27cm. Patent right external iliac artery, FILLER SHREDDER MACHINE, SFA, proximal PFA, popliteal artery, and proximal SENIOR CARE MANAGER and proximal peroneal artery with no evidence of significant stenosis or aneurysm--all waveforms are tardus/parvus with low flow velocities. Signed by J CARLOS CR III, MD on 2011-11-25 02:08:50 PM [facility] VB Text Report End of Report [facility] 11/25/2011 8:59 AM EDT Kristan Patrick MD VASCULAR ORDERABLES [facility] documented in this encounter Visit Diagnoses Diagnosis Atherosclerotic peripheral vascular disease with rest pain- Primary Atherosclerosis of [place] arteries of the extremities with rest pain documented in this encounter Care Teams Training Engineer Relationship Specialty Start Date End Date Nataliya Messina MD [address] [place] [address] [address] [place] [address] PCP - General 10/02/11 01/11/22 documented as of this encounter
--- OUTSIDE RECORDS SUMMARY | 2024-01-05 02:50 | XMS_ITS | Encounter Summary ---
[place] [address] Care Team Providers Care Lead Applications Developer Name Role Phone Nataliya Messina MD Primary Care Provider [phone] Encounter Details Date Type Department Care Team (Late Contact Info) Description 10/02/2011 Orders Only [place] [phone] Missy Manley MD [facility] [place] [address] Social History Tobacco Use Types Packs/Day Years [...] AM EDT Appointment Hematology [place] [phone] 01/21/2024 10:[address] [place] [address] Heber Phillips MD [facility] HEMATOLOGY/[place] [address] 03/28/2024 10:00 AM EDT Office Visit Hematology/Oncology at [address] [phone] Heber Phillips MD [facility] DR HEMATOLOGY/[place] [address] Isabella Baker APRN [facility] [place] [address] documented as of this encounter Procedures Procedure Name Priority Date/Time Associated Diagnosis Comments FILM LIBRARY STORAGE ONLY PAIN CLINIC C ARM Routine 10/02/2011 10:00 AM EDT documented in this encounter Results * FILM LIBRARY-STORAGE ONLY PAIN CLINIC C-ARM (10/02/2011 10:00 AM EDT) Anatomical Region Laterality Modality Other 10/02/2011 10:0 0 AM EDT Narrative 08/10/2013 9:41 PM EST This is a non-reportable exam. Procedure Note Richard Lozada - 08/10/2013 This is a non-reportable exam. Missy Manley MD [facility] FILM LIBRARY ORDERABLES documented in this encounter Visit Diagnoses Not on filedocumented in this encounter Care Teams Lead Applications Developer Relationship Specialty Start Date End Date Nataliya Messina MD [address] [place] [address] PCP - General 10/02/11 01/11/22 documented as of this encounter
--- OUTSIDE RECORDS SUMMARY | 2024-01-05 02:50 | XMS_ITS | Encounter Summary ---
Author Organization [facility] [place] [address] Care Team Providers Care Telesales Advisor Name Role Phone Nataliya Messina MD Primary Care Provider [phone] Encounter Details Date Type Department Care Team (Late st Contact Info) Description 11/26/2011 Orders [place] [phone] Ortega Patrick MD [facility] [place] [address] Iliac artery occlusion (Primary Dx) Social History [...] AM EDT Appointment [place] [address] 01/21/2024 10:[address] [place] [place] [address] Heber Phillips MD [facility] DR HEMATOLOGY/[place] [address] 03/28/2024 10:00 AM EDT Office Visit Hematology/Oncology at [address] [phone] Heber Phillips MD [facility] DR HEMATOLOGY/[place] [address] Isabella Baker APRN [facility] [place] [address] documented as of this encounter Results * VS Angiogram/intervention (vascular) (12/07/2011 1:37 PM [...] Fentanyl - 200 mcg ?? Indications: Kaley Tillman is a 56 y.o. male nondiabetic smoker [...] interpretation reviewed by the attending Procedure Note Ortega Patrick MD - 12/08/2011 Vascular Surgery Angio [...] and Fentanyl - 200 mcg Indications: Kaley Tillman is a 56 y.o. 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
--- OUTSIDE RECORDS SUMMARY | 2024-01-05 02:50 | XMS_ITS | Encounter Summary ---
Author Organization [facility] Address [address] [place] [address] Care Team Providers Care Cattle Shipper Name Role Phone Unknown, Provider Primary Care Provider Encounter Details Date Type Department Care Team (Late st Contact Info) Description 03/24/2022 Lab Requisition [facility] Pathology & Laboratory Medicine - [facility] [address] [place] [address] Outr Resulting Lab, Provider Social History Tobacco [...] Procedure Name Priority Date/Time Associated Diagnosis Comments OSMOLALITY, URINE Routine 03/24/2022 10: 15 EDT documented in this encounter Results * OSMOLALITY, URINE (03/24/2022 10:15 EDT) Osmolality, Urine 337 150-1,150 mOsm/kg 03/24/2022 17:37 EDT [facility] Urine URINE SPECIMEN COLLECTION, CLEAN CATCH / Unknown 03/24/2022 10:15 EDT 03/24/2022 17:02 EDT Provider Outr Resulting Lab URINALYSIS O RDERABLES [facility] [address] [place] [address] documented in this encounter Visit Diagnoses Not on filedocumented in this encounter Care Teams Cattle Shipper Relationship Specialty Start Date End Date Unknown, Provider, PCP - General 04/26/15 documented as of this encounter
--- OUTSIDE RECORDS SUMMARY | 2024-01-05 02:50 | XMS_ITS | Encounter Summary ---
Author Organization [facility] Address [facility] [place] [address] Care Team Providers Care Packer Inspector Name Role Phone Nataliya Messina MD Primary Care Provider [phone] Encounter Details Date Type Department Care Team (Latest Contact Info) Description 02/21/2013 12:30 PM EDT Ancillary Appointment [place] [phone] Harry Hernandez [place] Carotid stenosis Social History Tobacco Use Types Packs/Day Years [...] AM EDT Appointment Hematology [place] [address] 01/21/2024 10:[address] [place] [phone] Heber Phillips MD [facility] HEMATOLOGY/[place] [address] 03/28/2024 10:00 AM EDT Office Visit Hematology/Oncology at [address] [phone] Heber Phillips MD [facility] DR HEMATOLOGY/[place] [address] Isabella Baker APRN [facility] [place] [address] documented as of this encounter Procedures Procedure Name Priority Date/Time Associated Diagnosis Comments CAROTID DUPLEX, BILATERAL Routine 02/21/2013 12:34 PM EDT Carotid stenosis documented in this encounter Results * Cerebrovascular Duplex, Bilateral (02/21/2013 12:34 PM EDT) VB Text Report Department: Vascular Surgery Lab Patient: [id number] (BRITTA SAEED) CPT Code: 99721 ICD-9: 433.1 Referring Physician: KRISTAN PATRICK Indication: [...] infarction documented in this encounter Care Teams Packer Inspector Relationship Specialty Start Date End Date Nataliya Messina MD [address] [place] [address] PCP - General 10/02/11 01/11/22 documented as of this encounter
--- OUTSIDE RECORDS SUMMARY | 2024-01-05 02:51 | XMS_ITS | Encounter Summary ---
Author Organization [facility] Address [address] [place] [address] Care Team Providers Care Correspondence Representative Name Role Phone Unavailable Primary Care Provider Unavailabl e Encounter Details Date Type Department Care Team (Late st Contact Info) Description 05/10/2000 Results Only [facility] [place] [facility] [address] [place] [address] Wily Coronel MD [address] [place] [address] Social History Tobacco Use Types Packs/Day Years Used Date Smoking Tobacco: Never Assessed Sex and Gender Information Value Date Recorded Sex Assigned at Not on file Gender Identity Not on file Sexual Orientation Not on file documented as of this encounter Plan of Treatment Not on file documented as of this encounter Procedures Procedure Name Priority Date/Time Associated Diagnosis Comments SURGICAL PATHOLOGY Routine 05/10/2000 0:00 EST documented in this encounter Results * SURGICAL PATHOLOGY (05/10/2000 0:00 EST) Pathology Report: SURGICAL PATHOLOGY REPORT Reports generated via electronic interface contain original data; however they are lacking the format of the original report. Caution should be taken when reading/interpreti ng unformatted reports. Name: ? BRITTA SAEED ? Accession #: ? [id number] ? : ? 1955 (Age: 44) ??M ? Collect Date: ? 05/10/2000 ? Location: ? [facility] ? Receive Date: ? 05/11/2000 ? Provider: BRODY CORONEL MD Copy to: MARIANA DIALLO MD ? Final Pathologic Diagnosis: ? Rectum, polyp, biopsy: - Fragment of tubular adenoma, cauterized. Document reviewed and electronically signed by: ENDER GONZALEZ MD Report ??Date: 05/14/2000 15:06 By the signature above, the attending physician certifies that he/she has personally conducted a gross and/or microscopic examination of the described specimens and rendered or confirmed the above diagnosis. Specimen(s) Received: ? Rectal polyp Clinical History: ? Polyp @ 5 cm; diverticulitis with extensive sigmoid diverticulum Gross Description: ? Received in Hollande' s fixative labelled Saeed and polyp rectum is a aleman irregular 0.2 x 0.2 x 0.2 cm soft tissue fragment. The specimen is entirely submitted in one cassette. (Arjun Valenzuela)/[facility] End of Report [facility] 05/10/2000 05/11/2000 15: 04 EST Wily Coronel MD PATHOLOGY ORDERABLES Performing Organization Address City/State/[facility] Co de Phone Number [facility] [address] [place] [address] documented in this encounter Visit Diagnoses Not on filedocumented in this encounter
--- OUTSIDE RECORDS SUMMARY | 2024-01-05 02:51 | XMS_ITS | Encounter Summary ---
Author Organization [facility] Address [address] [place] [address] Care Team Providers Care Boat Tester Name Role Phone Unknown, Provider Primary Care Provider Encounter Details Date Type Department Care Team (Late st Contact Info) Description 03/10/2017 Results Only [facility] [phone] Edin Messina MD [address] [place] [phone] Social History Tobacco Use Types Packs/Day Years Used Date Smoking Tobacco: Never Assessed Sex and Gender Information Value Date Recorded Sex Assigned at Not on file Gender Identity Not on file Sexual Orientation Not on file documented as of this encounter Plan of Treatment Not on file documented as of this encounter Procedures Procedure Name Priority Date/Time Associated Diagnosis Comments SURGICAL PATHOLOGY Routine 03/10/2017 16 :14 EDT documented in this encounter Results * SURGICAL PATHOLOGY (03/10/2017 16:14 EDT) Pathology Report: SURGICAL PATHOLOGY REPORT Reports generated via electronic interface contain original data; however they are lacking the format of the original report. Caution should be taken when reading/interpret ing unformatted reports. Name: ? BRITTA SAEED ? Accession #: ? [id number] ? : ? 1955 (Age: 61) ??M ? Collect Date: ? 03/10/2017 ? Location: ? [facility] ? Receive Date: ? 03/11/2017 ? Provider: EDIN MESSINA MD Copy to: ? Final Pathologic Diagnosis: SKIN OF TRUNK, AXILLARY REGION, BIOPSY: - Seborrheic keratosis. ?? Document reviewed and electronically signed by: JEFRY TUCKER MD Report ??Date: 03/12/2017 15:48 By the signature above, the attending physician certifies that he/she has personally conducted a gross and/or microscopic examination of the described specimens and rendered or confirmed the above diagnosis. Specimen(s) Received: Axillary region mole Clinical History: Mole Gross Description: ? Received in formalin labelled with proper patient identification (initials F, J) and axillary region mole is a rubbery ovoid nodular skin lesion (0.8 x 0.6 x 0.2 cm). The surface of the lesion is smooth to slightly granular tse blue. The margin is inked. Trisected and entirely submitted in 1. MARCELLUS Lucas (ASCP) 03/11/2017 5:28 PM End of Report [facility] 03/10/2017 16:1 4 EDT 03/11/2017 16:14 EDT Edin Messina MD PATHOLOGY ORDERABLE S [facility] [address] [place] [address] documented in this encounter Visit Diagnoses Not on filedocumented in this encounter Care Teams Boat Tester Relationship Specialty Start Date End Date Unknown, Provider, PCP - General 04/26/15 documented as of this encounter
--- OUTSIDE RECORDS SUMMARY | 2024-01-05 02:51 | XMS_ITS | Encounter Summary ---
Author Organization [facility] Address [address] [place] [address] Care Team Providers Care Intervention Nurse Name Role Phone Unknown, Provider Primary Care Provider [phone] Encounter Details Date Type Department Care Team (Latest Contact Info) Description 03/11/2017 15:27 EDT - 03/11/2017 23:59 EDT Hospital Encounter [address] [address] Unknown, Provider, Discharge Disposition: Home or Self Care Social History Tobacco Use Types Packs/Day Years Used Date Smoking Tobacco: Never Assessed Sex and Gender Information Value Date Recorded Sex Assigned at Not on file Gender Identity Not on file Sexual Orientation Not on file documented as of this encounter Discharge Disposition Disposition Code Departure Means Destination Home or Self [facility] documented in this encounter Plan of Treatment Not on file documented as of this encounter Visit Diagnoses Not on filedocumented in this encounter Care Teams Intervention Nurse Relationship Specialty Start Date End Date Unknown, Provider, PCP - General 04/26/15 documented as of this encounter
--- OUTSIDE RECORDS SUMMARY | 2024-01-05 02:51 | XMS_ITS | Encounter Summary ---
Author Organization [facility] Address [address] [place] [address] Care Team Providers Care Management Development Specialist Name Role Phone Unknown, Provider Primary Care Provider [phone] Encounter Details Date Type Department Care Team (Late st Contact Info) Description 12/02/2020 Lab Requisition [facility] Pathology & Laboratory Medicine - [facility] [address] [place] [address] Outr Resulting Lab, Provider Social History Tobacco [...] Procedure Name Priority Date/Time Associated Diagnosis Comments PSA TOTAL, DIAGNOSTIC Routine 12/02/2020 9:49 EDT documented in this encounter Results * PSA TOTAL, DIAGNOSTIC (12/02/2020 9:49 EDT) PSA 1.4 0.0 - 4.5 ng/mL 12/02/2020 21:33 EDT [facility] Blood VENOUS BLOOD / Unknown 12/02/2020 9:49 EDT 12/02/2020 20:43 EDT Narrative [facility] - 12/02/2020 21:33 EDT NOTE: Serum PSA concentration should not be interpreted as absolute evidence for the presence or absence of malignant disease. Assayed on Siemens ADVIA Centaur XPT using chemiluminescent technology.??Values obtained by using different assay methods cannot be used interchangeably. Provider Outr Resulting Lab CHEMISTRY & BLOOD GAS ORDERABLES [facility] [address] [place] [address] documented in this encounter Visit Diagnoses Not on filedocumented in this encounter Care Teams Management Development Specialist Relationship Specialty Start Date End Date Unknown, Provider, PCP - General 04/26/15 documented as of this encounter
--- OUTSIDE RECORDS SUMMARY | 2024-01-05 02:51 | XMS_ITS | Encounter Summary ---
Author Organization [facility] Address [address] [place] [address] Care Team Providers Care Antisubmarine Weapons Officer Name Role Phone Unknown, Provider Primary Care Provider Encounter Details Date Type Department Care Team (Late st Contact Info) Description 09/27/2020 Lab Requisition [facility] Pathology & Laboratory Medicine - [facility] [address] [place] [address] Outr Resulting Lab, Provider Social History Tobacco [...] Procedure Name Priority Date/Time Associated Diagnosis Comments ZZCOVID-19 TEST [facility] PCR Today 09/27/2020 9:05 EDT COVID-19 TESTING Routine 09/27/2020 9:05 EDT documented in this encounter Results * COVID-19 TEST [facility] PCR (09/27/2020 9:05 EDT) Swab ENTIRE NASOPHARYNX / Unknown 09/27/2020 9:05 EDT 09/27/2020 17:02 EDT Provider Outr Resulting Lab MICROBIOLOGY - GENERAL ORDERABLES [facility] [address] [place] [address] * COVID-19 TESTING (09/27/2020 9:05 EDT) COVID-19 rt-PCR Result Negative Negative 09/28/2020 13:39 EDT [facility] Comment: This test has not been FDA cleared or approved. This test has been authorized by FDA under an EUA for use by authorized laboratories. This test has been authorized only for detection of nucleic acid from 2019-nCoV, not for any other viruses or pathogens. This test is only authorized for the duration of the declaration that circumstances exist justifying the authorization of emergency use of in vitro diagnostic tests for detection and/or diagnosis of 2019-nCoV under section 564(b)(1) of Act, 21 U.S.C ?? 360bbb-3(b) (1), unless the authorization is terminated or revoked sooner. Negative results do not preclude 2019-nCoV infection and should not be used as the sole basis for treatment or other patient management decisions. Negative results must be combined with clinical observations, patient history, and epidemiological information. Testing was performed using the leah SARS-CoV-2 assay ([facility] on the Leah 6800 System Performing Lab [address] [facility] 09/28/2020 13:39 EDT [facility] Swab 09/27/2020 9:05 EDT 09/27/2020 17:02 EDT Provider Outr Resulting Lab MICROBIOLOGY - GENERAL ORDERABLES [facility] [address] [place] [address] documented in this encounter Visit Diagnoses Not on filedocumented in this encounter Care Teams Antisubmarine Weapons Officer Relationship Specialty Start Date End Date Unknown, Provider, PCP - General 04/26/15 documented as of this encounter
[2024-01-05] MEDS: Heparin 500 UNITS/5 ML SYRINGE IV (10:46)
[2024-01-05] MEDS: Normal Saline Flush 10 ML SYR IVP (10:46)
== END 2024-01-19 23:59 | disposition home or self-care (01) ==
LOC: INF 02:39
PROVIDERS: PCP Nurse Practitioner Family; Visit Provider Nurse Practitioner Family
DX: Z45.2 Encounter for adjustment and management of vascular access device (principal)
CPT/HCPCS: 96523; J1642

== ENCOUNTER 2024-02-09 02:10 | Outpatient (RCR) | payer MEDICARE, SELFPAY ==
--- OUTSIDE RECORDS SUMMARY | 2024-02-09 02:11 | XMS_ITS | Clinical Summary ---
[facility] Organization [facility] Address [facility] [place] [address] Care Team Providers Care Carbon Paper Coating Supervisor Name Role Phone KennCindySayradakota LOW Primary Care Provider Allergies Active Allergy Reactions Criticality Noted Date [...] mg Tablet, SublingualIndicatio ns:Coronary artery disease involving [place] heart without angina pectoris, unspecified vessel or [...] Encounters Date Type Department Care Team Description 01/31/2024 Telephone Hematology/Oncology at [address] [phone] Aleida Knight RN Follow-up (Ct scan) 01/25/2024 2:29 PM EDT - 01/25/2024 11:59 PM EDT Hospital [place] [address] Heber Phillips MD Small cell lung cancer, right upper lobe; Lung nodule seen on imaging study Discharge Disposition: Home 01/25/2024 2:04 PM EDT - 01/25/2024 2:28 PM EDT Hospital Encounter [place] [address] Iron deficiency anemia, unspecified iron deficiency anemia type; Small cell lung cancer, right upper lobe Discharge Disposition: Home 01/25/2024 Travel 01/04/2024 2:00 PM EDT Office Visit Hematology/Oncology at [address] [address] Isabella Baker APRN Iron deficiency anemia, unspecified iron deficiency anemia type; Small cell lung cancer, right upper lobe 01/04/2024 Travel 01/04/2024 Telephone Hematology/Oncology at [address] [address] Aleida Knight RN Follow-up 01/03/2024 Telephone Hematology/Oncology at [address] [phone] Ciara Hurtado 12/07/2023 Telephone Hematology/Oncology at [address] [address] Ciara Hurtado 11/19/2023 Telephone Cardiology at [address] [phone] Rosa Mancera RN from Last 3 Months Immunizations Name Administration [...] Care Team (Late st Contact Info) Description 03/28/2024 10:00 AM EDT Office Visit Hematology/Oncology at [address] [phone] Heber Phillips MD [facility] [place] [address] Isabella Baker APRN [facility] [place] [address] Health Maintenance Due Date Last Done Comments [...] exists Diabetes Screening (HgbA1C o r Glucose) 01/24/2027 01/25/2024, 10/11/2023, 10/11/2023, Additional history exists Colonoscopy 02/21/2031 02/21/2021, 02/21/2021 Colorectal Cancer Screening 02/21/2031 Sigmoidoscopy (10 year) with FIT yearly 02/21/2031 02/21/2021, 02/21/2021 Tdap adult Completed 03/16/2008 Hepatitis C Screening Completed 10/11/2023 Medical Devices Implanted Type Area Piano Case And Bench Assembler Device Identifier Shelf Expiration Date Model / Serial / Lot Patch,Biol,Xe nosure,.8x8cm ([id number]) - [id number] Implanted:Qty : 1 on 10/20/2016 by Omero Wills MD at [facility] IMPLANTS Right: Carotid [employer] - [id number] 04/17/2022 E0.8P8 / / [id number] Port,Ct,Low Profile,Vacce ss ([id number])-01/26 Implanted:Qty : 1 on 01/26/2018 by Gerald Rivera, WORKING MANAGER IMPLANTS Right: Chest Wall [employer] - CR BARD [id number] / / [id number] Description:6fr low profile vaccess port Procedures Procedure Name Priority Date/Time Associated Diagnosis Comments CT CHEST WO CONTRAST (GENERIC) Routine 01/25/2024 3:50 PM EDT Small cell lung cancer, right upper lobe Lung nodule seen on imaging study FERRITIN Routine 01/25/2024 2:13 PM EDT Iron deficiency anemia, unspecified iron deficiency anemia type Small cell lung cancer, right upper lobe IRON AND TIBC Routine 01/25/2024 2:13 PM EDT Iron deficiency anemia, unspecified iron deficiency anemia type Small cell lung cancer, right upper lobe COMPREHENSIVE METABOLIC PANEL Routine 01/25/2024 2:13 PM EDT Iron deficiency anemia, unspecified iron deficiency anemia type Small cell lung cancer, right upper lobe CBC (WITH DIFF) Routine 01/25/2024 2:13 PM EDT Iron deficiency anemia, unspecified iron deficiency anemia type Small cell lung cancer, right upper lobe HEPATITIS C RNA, QUANTITATIVE, PCR Routine 10/11/2023 11:19 AM EDT Routine general medical examination at a health care facility COLONOSCOPY Routine 02/21/2021 1:08 PM EDT from Last 3 Months or Most Recently Relevant to Health Maintenance Results * CT Chest wo Contrast (Generic) (01/25/2024 3:50 PM EDT) WORKSTATION ID [id number] DH RAD Anatomical Region Laterality Modality Chest Computed Tomogra phy Impressions 01/28/2024 4:12 PM EDT PET avid previously noted 11 mm irregular right upper lobe nodule is no longer measurable. Thank you for letting us participate in the care of this patient. ??If you are a health care provider and have any questions regarding this report, please contact the number below. ??For patients who have questions please contact the health care management coordinator that requested your imaging first. ? Electronically signed by: Pushpa Arceo MD, [facility] ([phone]), at 01/28/2024 4:12 PM Narrative 01/28/2024 4:12 PM EDT EXAMINATION: CT CHEST WO CONTRAST (GENERIC) CLINICAL HISTORY: Lung nodule, > 8mm; Small cell lung cancer, assess treatment response C34.11, Malignant neoplasm of upper lobe, right bronchus or lung - R91.1, Solitary pulmonary nodule TECHNIQUE: Helical CT of the chest without intravenous contrast administration. Thin-section reconstructions as well as coronal and sagittal reformatted images were generated. COMPARISON: April 10, 2022 CT scan and PET scan October 11, 2023 FINDINGS: Pulmonary parenchyma: Stable residual lingular scar. Stable left apical scar. Stable cicatrization with organizing and retraction right upper lobe. Stable thrice sub-6 mm right lower lobe pulmonary nodules. Sub-6 mm left lower lobe pulmonary nodules noted in March 2022 are all less conspicuous. Stable right lower lobe cyst. Mildly pet avid irregular nodule at the anterior right inferior upper lobe is no longer measurable, series 304 image 30. Airways: Stable narrowing bronchus intermedius and right lower lobe bronchus. Stable traction bronchiectasis right upper lobe. Pleura: No effusion. Lymph nodes: Retrosternal, pretracheal lymph node measures 9 x 15 mm, having measured 11 x 17 mm at PET scan felt to reflect reactive lymph node. Heart and vasculature: Normal size of the heart. No significant pericardial effusion. Other mediastinal structures: No significant findings. Upper abdomen: Normal adrenal glands. Maximum caliber visualized abdominal aortic segment 3.5 cm. Skeletal structures: No suspicious lesion Procedure Note Pushpa Arceo MD - 01/28/2024 EXAMINATION: CT CHEST WO CONTRAST (GENERIC) CLINICAL HISTORY: Lung nodule, > 8mm; Small cell lung cancer, assesstreatment response C34.11, Malignant neoplasm of upper lobe, right bronchus or lung -R91.1, Solitary pulmonary nodule TECHNIQUE: Helical CT of the chest without intravenous contrastadministration. Thin-section reconstructions as well as coronal and sagittal reformattedimages were generated. COMPARISON: April 10, 2022 CT scan and PET scan October 11, 2023 FINDINGS: Pulmonary parenchyma: Stable residual lingular scar. Stable left apicalscar. Stable cicatrization with organizing and retraction right upper lobe. Stable thrice sub-6 mm right lower lobe pulmonary nodules. Sub-6 mm left lower lobe pulmonary nodules noted in March 2022 are allless conspicuous. Stable right lower lobe cyst. Mildly pet avid irregular nodule at the anterior right inferior upper lobeis no longer measurable, series 304 image 30. Airways: Stable narrowing bronchus intermedius and right lower lobebronchus. Stable traction bronchiectasis right upper lobe. Pleura: No effusion. Lymph nodes: Retrosternal, pretracheal lymph node measures 9 x 15 mm,having measured 11 x 17 mm at PET scan felt to reflect reactive lymph node. Heart and vasculature: Normal size of the heart. No significantpericardial effusion. Other mediastinal structures: No significant findings. Upper abdomen: Normal adrenal glands. Maximum caliber visualizedabdominal aortic segment 3.5 cm. Skeletal structures: No suspicious lesion IMPRESSION PET avid previously noted 11 mm irregular right upper lobe nodule is nolonger measurable. Thank you for letting us participate in the care of this patient. If youare a health care provider and have any questions regarding this report,please contact the number below. For patients who have questions please contactthe health care management coordinator that requested your imaging first. Heber Phillips MD IMG CT ORDERABLES * Iron and TIBC (01/25/2024 2:13 PM EDT) Iron 87 45 - 160 mcg/dL 01/25/2024 6:20 PM EDT [facility] Unsaturated Iron Binding Capacity 206 110 - 370 mcg/dL 01/25/2024 6:20 PM EDT [facility] TIBC 293 250 - 450 mcg/dL 01/25/2024 6:20 PM EDT [facility] Iron Saturation 30 20 - 50 % 6:20 PM EDT [facility] Blood VENOUS BLOOD SPECIMEN / Unknown Venipuncture / Unknown 01/25/2024 2:13 PM EDT 01/25/2024 2:14 PM EDT Isabella Azael Olivia WORKING MANAGER CHEMISTRY ORDERABL ES [facility] [place] [address] * (ABNORMAL) CBC (with Diff) (01/25/2024 2:13 PM EDT) White Blood Cell 9.58 x10(3)/mc L 01/25/2024 2:39 PM EDT [facility] Red Blood Cell 5.07 4.58 - 5.54 x10(6)/mc L 01/25/2024 2:39 PM EDT [facility] Hemoglobin 14.2 13.7 - 16.5 g/dL 01/25/2024 2:39 PM EDT [facility] Hematocrit 42.9 40.5 - 48.5 % 01/25/2024 2:39 PM EDT [facility] Mean Cell Volume 84.6 82.9 - 93.1 fL 01/25/2024 2:39 PM EDT [facility] Mean Cell Hemoglobin 28.0 27.5 - 32.1 pg 01/25/2024 2:39 PM EDT [facility] Mean Cell Hemoglobin Concentration 33.1 32.0 - 35.7 g/dL 01/25/2024 2:39 PM EDT [facility] Platelet 384(H) 145 - 357 x10(3)/mc L 01/25/2024 2:39 PM EDT [facility] Mean Platelet Volume 9.4 7.6 - 12.9 fL 01/25/2024 2:[facility] RDW Standard Deviation 54.1(H) 36.0 - 45.0 fL 01/25/2024 2:39 PM [facility] RDW coefficient of variation 17.3(H) 11.4 - 13.8 % 01/25/2024 2:39 PM [facility] NRBC% auto 0.0 % 01/25/2024 2:39 PM [facility] NRBC Absolute 0.00 0.00 - 0.00 x10(3)/mc L 01/25/2024 2:39 PM [facility] Neutrophil % 79.0 % 01/25/2024 2:39 PM [facility] Neutrophil Absolute 7.57(H) 1.70 - 6.10 x10(3)/mc L 01/25/2024 2:39 PM [facility] Lymph % 6.8 % 01/25/2024 2:39 PM [facility] Lymph Absolute 0.65(L) 0.90 - 3.20 x10(3)/mc L 01/25/2024 2:39 PM [facility] Monocyte % 10.3 % 01/25/2024 2:39 PM [facility] Monocyte Absolute 0.99(H) 0.30 - 0.90 x10(3)/mc L 01/25/2024 2:39 PM [facility] Eos % 2.0 % 01/25/2024 2:39 PM [facility] Eos Absolute 0.19 0.00 - 0.40 x10(3)/mc L 01/25/2024 2:39 PM [facility] Basophil % 0.6 % 01/25/2024 2:39 PM [facility] Baso Absolute 0.06 0.00 - 0.10 x10(3)/mc L 01/25/2024 2:39 PM [facility] Immature Gran % 1.3 % 2:39 PM EDT [facility] Immature Gran Absolute 0.12(H) 0.00 - 0.04 x10(3)/mc L 01/25/2024 2:39 PM EDT [facility] Blood VENOUS BLOOD SPECIMEN / Unknown Venipuncture / Unknown 01/25/2024 2:13 PM EDT 01/25/2024 2:14 PM EDT Isabella A Baker WORKING MANAGER HEMATOLOGY ORDERAB LES Performing Organization Address [facility]/ZIP Co de Phone Number [facility] [place] [address] * Ferritin (01/25/2024 2:13 PM EDT) Pathologist [facility] Ferritin 189 31 - 409 ng/ml 01/25/2024 3:14 PM EDT [facility] Blood VENOUS BLOOD SPECIMEN / Unknown Venipuncture / Unknown 01/25/2024 2:13 PM EDT 01/25/2024 2:14 PM EDT Isabella Azael Baker WORKING MANAGER CHEMISTRY ORDERABL ES Performing Organization Address [facility] Co de Phone Number [facility] [place] [address] * (ABNORMAL) Comprehensive metabolic panel (non-fasting) (01/25/2024 2:13 PM EDT) Pathologist [facility] Glucose 103 65 - 199 mg/dL 01/25/2024 3:18 PM EDT [facility] Comment:Glucose Concentratio n >=200 mg/dL plus symptoms is consistent with Diabetes Mellitus. Blood Urea Nitrogen 39(H) 10 - 20 mg/dL 01/25/2024 3:18 PM EDT [facility] Creatinine 1.31 0.80 - 1.50 mg/dL 01/25/2024 3:18 PM EDT [facility] Sodium 137 135 - 145 mMol/L 01/25/2024 3:18 PM EDT [facility] Potassium 4.8 3.5 - 5.0 mMol/L 01/25/2024 3:18 PM [facility] Chloride 102 98 - 107 mMol/L 01/25/2024 3:18 PM [facility] Carbon Dioxide 24 22 - 31 mMol/L 01/25/2024 3:18 PM [facility] Anion Gap 11 5 - 15 mMol/L 01/25/2024 3:18 PM [facility] Calcium 10.5 8.5 - 10.5 mg/dL 01/25/2024 3:18 PM [facility] Protein, Total 7.3 6.1 - 8.0 g/dL 01/25/2024 3:18 PM [facility] Albumin 4.5 3.2 - 5.2 g/dL 01/25/2024 3:18 PM [facility] Aspartate Aminotransferase 20 <=39 unit/L 01/25/2024 3:18 PM [facility] Alanine Aminotransferase 23 0 - 55 unit/L 01/25/2024 3:18 PM [facility] Alkaline Phosphatase 100 40 - 130 unit/L 01/25/2024 3:18 PM [facility] Bilirubin, Total 0.2 <=1.3 mg/dL 01/25/2024 3:18 PM [facility] Est Glomerular Filtration Rate - Male 59 mL/min/1. 73 m?? 01/25/2024 3:18 PM [facility] Comment: This patient's estimated GFR was [...] urine creatinine clearance. Assignment of CKD stage 1 - 5 for patients with an eGFR near the transition point between stages may be based on clinical assessment of muscle mass and symptoms in addition to eGFR. Link: eGFR Calculator [employer] Fasting Status No 01/25/2024 3:18 PM EDT [facility] Blood VENOUS BLOOD SPECIMEN / Unknown Venipuncture / Unknown 01/25/2024 2:13 PM EDT 01/25/2024 2:14 PM EDT Isabella Baker WORKING MANAGER CHEMISTRY ORDERABL ES Performing Organization Address City/[facility]/ZIP Co de Phone Number [facility] [place] [address] * Hepatitis C RNA, quantitative, PCR (10/11/2023 11:19 AM EDT) HCV Viral Load <12 IU/mL [facility] HCV Viral Load Result: <12 IU/mL [...] by the U.S. Food and Drug Administration. [facility] Comment: [VERIFIED DATE]10.12.23 Verified By:Jackie Ashby (Electronic Signature) Blood 10/11/2023 11:1 9 AM EDT 10/11/2023 1:24 PM EDT Narrative Resulting Agency Comment Spec In Lab Sayra Hawk WORKING MANAGER MOLECULAR ORDERABLE S Performing Organization Address City/[facility]/ZIP Co de Phone Number [facility] [place] [address] * COLONOSCOPY (02/21/2021 1:08 PM EDT) COLONOSCOPY [facility] Endoscopy Procedure Date: 02/21/2021 1:08 PM ? Patient Name: Hieu Tillman ? Date of : 1955 ? Age: 65 ? Order #: [id number] ? Instrument Name: [id number] ? Procedure: ? Colonoscopy Indications: ? High risk colon cancer surveillance: ? Personal history of colonic polyps, ? Incidental - Abnormal PET scan of the ? GI tract Providers: ? Anshu Ewing MD, Florentin Meng. ? BOB Arrieta, Amie Max, ? Child Welfare Consultant Referring MD: ?Nataliya Messina MD Medicines: ? [...] Procedure Code(s): ?? --- Professional --- ? [address]7075, Colonoscopy, flexible; with ? removal of tumor(s), polyp(s), or ? other lesion(s) by snare technique CPT copyright 2019 [employer]. All rights reserved. The codes documented in this report are preliminary and upon try out person review may be revised to meet current [...] Documents on File Type Date Recorded Patient Children'S Tutor Nursery Expl anation Advance Directives and Living Will [...] is based on Patients wishes. Care Teams Carbon Paper Coating Supervisor Relationship Specialty Start Date End Date Sayra Hawk APRN [address] [place] [address] PCP - General Family Medicine 11/03/22
--- OUTSIDE RECORDS SUMMARY | 2024-02-09 02:12 | XMS_ITS | Encounter Summary ---
[place] [address] Care Team Providers Care Firefighter Type One Name Role Phone Sayra Hawk APRN Primary Care Provider Reason for Visit * Reason Onset Date Comments Follow-up 01/31/2024 Ct scan Encounter Details Date Type Department Care Team (Late Contact Info) Description 01/31/2024 Telephone Hematology/Oncology at [address] [phone] Aleida Knight RN Follow-up (Ct scan) Social History Tobacco Use Types Packs/Day Years [...] Telephone Encounter - Aleida Knight RN - 01/31/2024 8:43 AM EDT Spoke with hieu and let him know per Ross Baker NP that his ct scan showed no lung nodule and that he will have repeat ct of chest in 6 months. His iron levels are good. We will repeat those labs prior to seeing him on mar 28. Pt agrees with plan. documented in this encounter Plan of Treatment Upcoming Encounters Date Type Department Care Team (Late Contact Info) Description 03/28/2024 10:00 AM EDT Office Visit Hematology/Oncology at [address] [phone] Heber Phillips MD [facility] [address] [place] [address] Isabella Baker APRN [facility] [place] [address] documented as of this encounter Visit Diagnoses Not on filedocumented in this encounter Care Teams Firefighter Type One Relationship Specialty Start Date End Date Sayra Hawk APRN [address] [place] [address] PCP - General Family Medicine 11/03/22 documented as of this encounter
--- OUTSIDE RECORDS SUMMARY | 2024-02-09 02:12 | XMS_ITS | Encounter Summary ---
Author Organization [facility] Address [facility] [place] [address] Care Team Providers Care Brush Or Broom Cutter Name Role Phone Sayra Hawk APRN Primary Care Provider [phone] Encounter Details Date Type Department Care Team [...] AM EDT Office Visit Hematology/Oncology at [address] [phone] Heber Phillips MD [facility] [address] HEMATOLOGY [place] [address] Isabella Baker APRN [facility] [place] [address] documented as of this encounter Visit Diagnoses Not on filedocumented in this encounter Care Teams Brush Or Broom Cutter Relationship Specialty Start Date End Date Sayra Hawk APRN [address] [place] [address] [place] [address] PCP - General Family Medicine 11/03/22 documented as of this encounter
--- OUTSIDE RECORDS SUMMARY | 2024-02-09 02:12 | XMS_ITS | Encounter Summary ---
Author Organization [facility] [place] [address] Care Team Providers Care Drop Man Name Role Phone KennCindySayra DEVANTE Primary Care Provider [phone] Encounter Details Date Type Department Care Team (Late Contact Info) Description 01/03/2024 Telephone Hematology/Oncology at [address] [phone] Ciara Hurtado Social History Tobacco [...] Upcoming Encounters Date Type Department Care Team ([facility] Contact Info) Description 03/28/2024 10:00 AM EDT Office Visit Hematology/Oncology at [address] [phone] Heber Phillips MD [facility] DR [place] [address] Isabella Baker APRN [facility] [place] [address] documented as of this encounter Visit Diagnoses Not on filedocumented in this encounter Care Teams Drop Man Relationship Specialty Start Date End Date Sayra Hawk APRN [address] [place] [address] PCP - General Family Medicine 11/03/22 documented as of this encounter
--- OUTSIDE RECORDS SUMMARY | 2024-02-09 02:12 | XMS_ITS | Encounter Summary ---
Author Organization [facility] [place] [address] Care Team Providers Care Merchandise For Resale Purchasing Agent Name Role Phone KennSayra DEVANTE Primary Care Provider [phone] Reason for Visit * Diagnostic Test (Routine) - Closed Specialty Diagnoses / Procedures Referred By Contac t Referred To Contact Radiology Diagnoses Small cell lung cancer, right upper lobe Procedures NM PET CT Skull Base to Mid-thigh Heber Phillips MD [facility] [address] HEMATOLOGY [place] [address] [place] [address] Referral ID Status Reason Start Date Expiration Date V isits Requested Visits Authorized [id number] Closed Specialty Service Requested 10/13/2022 04/14/2024 1 1 Encounter Details Date Type Department Care Team (Latest Contact Info) Description 10/11/2023 9:26 AM EDT - 10/11/2023 11:06 AM EDT Hospital Encounter [place] [address] Heber Phillips MD [facility] HEMATOLOG[place] [address] Discharge Disposition: Home Social History [...] mg Tablet, SublingualIndications :Coronary artery disease involving deering heart without angina pectoris, unspecified vessel or [...] AM EDT Office Visit Hematology/Oncology at [address] [phone] Heber Phillips MD [facility] [address] HEMATOLOGY [place] [address] Isabella Baker APRN [facility] [place] [address] documented as of this encounter Procedures Procedure Name Priority Date/Time Associated Diagnosis Comments NM PET CT SKULL BASE TO MID-THIGH ([facility]) Routine 10/11/2023 11:20 AM EDT Small cell lung cancer, right upper lobe POCT GLUCOSE Routine 10/11/2023 9:40 AM EDT documented in this encounter Results * POCT Glucose (10/11/2023 9:40 AM EDT) Glucose, POC 107 65 - 199 mg/dL [facility] Comment: Supplemental ranges: <140 mg/dL before meals <180 mg/dL all other times of the day Blood 10/11/2023 9:40 AM EDT 10/11/2023 9:40 AM EDT Heber Phillips MD POINT OF CARE TEST O RDERABLES [facility] [place] [address] documented in this encounter Visit Diagnoses Not on filedocumented in this encounter Care Teams Merchandise For Resale Purchasing Agent Relationship Specialty Start Date End Date Sayra Hawk APRN [address] [place] [address] PCP - General Family Medicine 11/03/22 documented as of this encounter
--- OUTSIDE RECORDS SUMMARY | 2024-02-09 02:12 | XMS_ITS | Encounter Summary ---
Author Organization [facility] [place] [address] Care Team Providers Care Brands Editor Name Role Phone Susansadie Sayra DEVANTE Primary Care Provider +1- [phone] Reason for Referral * Diagnostic Test (Routine) - Closed Specialty Diagnoses / Procedures Referred By Contac t Referred To Contact Radiology Diagnoses Small cell lung cancer, right upper lobe Procedures NM PET CT Skull Base to Mid-thigh Heber Phillips MD [facility] [address] [place] [address] [place] [address] Referral ID Status Reason Start Date Expiration Date V isits Requested Visits Authorized [id number] Closed Specialty Service Requested 10/13/2022 04/14/2024 1 1 Reason for Visit * Diagnostic Test (Routine) - Closed Specialty Diagnoses / Procedures Referred By Contac t Referred To Contact Radiology Diagnoses Small cell lung cancer, right upper lobe Procedures NM PET CT Skull Base to Mid-thigh Heber Phillips MD [facility] [address] [place] [address] [facility] [place] [address] Referral ID Status Reason Start Date Expiration Date V isits Requested Visits Authorized [id number] Closed Specialty Service Requested 10/13/2022 04/14/2024 1 1 Encounter Details Date Type Department Care Team (Latest Contact Info) Description 10/11/2023 9:26 AM EDT - 10/11/2023 11:06 AM EDT Hospital Encounter [place] [address] Heber Phillips MD [facility] [address] [place] [address] Small cell lung cancer, right upper lobe [...] mg Tablet, SublingualIndications :Coronary artery disease involving nansemond indian tribe heart without angina pectoris, unspecified vessel [...] AM EDT Office Visit Hematology/Oncology at [address] [phone] Heber Phillips MD [facility] DR [place] [address] Isabella Baker APRN [facility] [place] [address] documented as of this encounter Procedures Procedure Name Priority Date/Time Associated Diagnosis Comments NM PET CT SKULL BASE TO MID-THIGH ([facility]) Routine 10/11/2023 11:20 AM EDT Small cell lung cancer, right upper lobe documented in this encounter Results * NM PET CT Skull Base to Mid-thigh (10/11/2023 11:20 AM EDT) WORKSTATION ID [id number] DH RAD Anatomical Region Laterality Modality Positron Emissio n Tomography (PET) Impressions 10/12/2023 9:31 AM EDT 1. ??New FDG avid 11 mm irregular, nodule in the right upper lobe may represent an infectious/inflammatory process. Neoplasm cannot be excluded. Consider short interval follow-up with non-contrast CT chest in 3 months. Preliminary report signed by: Lokesh Josue at 10/12/2023 9:26 AM I have personally [...] who have questions please contact the health healthcare or medical that requested your imaging first. ? 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 Heber Phillips [...] mCi documented in this encounter Care Teams Brands Editor Relationship Specialty Start Date End Date Sayra Hawk APRN [address] [place] [address] [address] [facility] [place] [address] PCP - General Family Medicine 11/03/22 documented as of this encounter
--- OUTSIDE RECORDS SUMMARY | 2024-02-09 02:12 | XMS_ITS | Encounter Summary ---
Author Organization [facility] Address [facility] [place] [address] Care Team Providers Care Maintenance Mechanic Technician Name Role Phone Sayra Hawk APRN Primary Care Provider Encounter Details Date Type Department Care Team (Latest Contact Info) Description 10/11/2023 11:07 AM EDT - 10/11/2023 11:59 PM EDT Hospital Encounter [place] [address] Discharge Disposition: Home Social History Tobacco Use [...] mg Tablet, SublingualIndications :Coronary artery disease involving resighini heart without angina pectoris, unspecified vessel or [...] AM EDT Office Visit Hematology/Oncology at [address] [phone] Heber Phillips MD [facility] [address] [place] [address] Isabella Baker APRN [facility] [place] [address] documented as of this encounter Visit Diagnoses Not on filedocumented in this encounter Care Teams Maintenance Mechanic Technician Relationship Specialty Start Date End Date Sayra Hawk APRN [address] [place] [address] [address] [place] [address] PCP - General Family Medicine 11/03/22 documented as of this encounter
--- OUTSIDE RECORDS SUMMARY | 2024-02-09 02:12 | XMS_ITS | Encounter Summary ---
Author Organization [facility] [place] [address] Care Team Providers Care Billet Heater Name Role Phone None Primary Care Provider Unavailabl e Reason for Referral * Consultation (Routine) - Closed Specialty Diagnoses / Procedures Referred By Contfatimah t Referred To Contact Cardiology Diagnoses Coronary artery disease, unspecified vessel or lesion type, unspecified whether angina present, unspecified whether big sandy or transplanted heart CARD ONC CAD. Very overdue for f/up. 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 Sayra Hawk APRN [address] [place] [address] [facility] [address] [place] [phone] Referral ID Status Reason Start Date Expiration Date V isits Requested Visits Authorized [id number] Closed Consult, Test & Treat 10/16/2022 10/16/2023 1 1 Encounter Details Date Type Department Care Team (Late st Contact Info) Description 10/16/2022 Transcribe Orders eDH Incoming Referrals [phone] Sayra Hawk APRN [address] [place], [place] [address] Coronary artery disease, unspecified vessel or lesion type, unspecified whether angina present, unspecified whether big sandy or transplanted heart Social History Tobacco Use [...] AM EDT Office Visit Hematology/Oncology at [address] [phone] Heber Phillips MD [facility] DR [place] [address] Isabella Baker APRN [facility] [place] [address] Scheduled Referrals Name Type Priority Associated Diagnoses Orde r Schedule Referral to Cardiology Outpatient Referral Routine Coronary artery disease, unspecified vessel or lesion type, unspecified whether angina present, unspecified whether big sandy or transplanted heart Ordered: 10/16/2022 documented as of this encounter Visit Diagnoses Diagnosis Coronary artery disease, unspecified vessel or lesion type, unspecified whether angina present, unspecified whether big sandy or transplanted heart documented in this encounter Care Teams Billet Heater Relationship Specialty Start Date End Date None None PCP - General 01/12/22 11/02/22 documented as of this encounter
--- OUTSIDE RECORDS SUMMARY | 2024-02-09 02:12 | XMS_ITS | Encounter Summary ---
Author Organization [facility] Address [facility] [place] [address] Care Team Providers Care Apartment Maintenance Worker Name Role Phone Susansadie Sayra LOW Primary Care Provider [phone]- [phone] Encounter Details Date Type Department Care Team (Late Contact Info) Description 10/15/2023 Telephone Hematology/Oncology at [address] [phone] Ciara Hurtado Social History Tobacco [...] AM EDT Office Visit Hematology/Oncology at [address] [phone] Heber Phillips MD [facility] HEMATOLOGY [place] [address] Isabella Baker APRN [facility] [place] [address] documented as of this encounter Visit Diagnoses Not on filedocumented in this encounter Care Teams Apartment Maintenance Worker Relationship Specialty Start Date End Date Sayra Hawk APRN [address] [place] [address] [address] [place] [address] PCP - General Family Medicine 11/03/22 documented as of this encounter
--- OUTSIDE RECORDS SUMMARY | 2024-02-09 02:12 | XMS_ITS | Encounter Summary ---
Author Organization [place] [address] Care Team Providers Care Forensic Nurse Name Role Phone Sayra Hawk APRN Primary Care Provider [phone]- [phone] Reason for Referral * Diagnostic Test (Routine) - Authorized Specialty Diagnoses / Procedures Referred By Contac t Referred To Contact Diagnoses Stenosis of right carotid artery Procedures Carotid Duplex, Bilateral Gerald Dunham MD [facility] [address] [facility] [address] [place] [phone] Referral ID Status Reason Start Date Expiration Date Visits Requested Visits Authorized [id number] Authorized Specialty Service Requested 09/15/2023 09/14/2024 1 1 * Diagnostic Test (Routine) - Authorized Specialty Diagnoses / Procedures Referred By Contac t Referred To Contact Diagnoses PVD (peripheral vascular disease) Procedures NALDO, legs, multiple levels Gerald Dunham MD [facility] [address] [facility] [address] [place] [phone] Referral ID Status Reason Start Date Expiration Date Visits Requested Visits Authorized [id number] Authorized Specialty Service Requested 09/15/2023 09/14/2024 1 1 Reason for Visit * Consultation (Routine) - Closed Specialty Diagnoses / Procedures Referred By Contac t Referred To Contact Vascular Surgery Diagnoses Peripheral vascular disease ROUTINE, /CARLOS, NALDO, B CAR Sayra Alejandro, CLINICAL SUPPORT TECH [address] [place] [address] [facility] [address] [place] [address] Referral ID Status Reason Start Date Expiration Date V isits Requested Visits Authorized [id number] Closed Consult, Test & Treat 07/20/2023 07/19/2024 1 1 Encounter Details Date Type Department Care Team (Late st Contact Info) Description 09/15/2023 2:30 PM EDT Office Visit [place] [address] Gerald Dunham MD [facility] [place] [address] Stenosis of right carotid artery [...] AM EDT Office Visit Hematology/Oncology at [address] [phone] Heber Phillips MD [facility] DR [place] [address] Isabella Baker APRN [facility] [place] [address] documented as of this encounter Visit Diagnoses Diagnosis Stenosis of right carotid artery- Primary Occlusion and stenosis of carotid artery without mention of cerebral infarction PVD (peripheral vascular disease) Peripheral vascular disease, unspecified documented in this encounter Care Teams Forensic Nurse Relationship Specialty Start Date End Date Susansadie DEVANTE Colbert [address] [facility] [address] [place] [address] PCP - General Family Medicine 11/03/22 documented as of this encounter
--- OUTSIDE RECORDS SUMMARY | 2024-02-09 02:12 | XMS_ITS | Encounter Summary ---
Author Organization [facility] Address [facility] [place] [address] Care Team Providers Care Torpedoman'S Mate Name Role Phone Sayra Hawk APRN Primary Care Provider [phone]- [phone] Encounter Details Date Type Department Care Team [...] AM EDT Office Visit Hematology/Oncology at [address] [phone] Heber Phillips MD [facility] DR [place] [address] Isabella Baker APRN [facility] [place] [address] documented as of this encounter Visit Diagnoses Not on filedocumented in this encounter Care Teams Torpedoman'S Mate Relationship Specialty Start Date End Date Sayra Hawk APRN [address] [place] [address] [place] [address] PCP - General Family Medicine 11/03/22 documented as of this encounter
--- OUTSIDE RECORDS SUMMARY | 2024-02-09 02:12 | XMS_ITS | Encounter Summary ---
[place] [address] Care Team Providers Care Mill Operator Helper Name Role Phone Kenn Sayra LOW Primary Care Provider +1- [phone] Encounter Details Date Type Department Care Team (Late Contact Info) Description 07/20/2023 Telephone [place] [phone] Ann Henson Social History Tobacco Use Types [...] Ann Henson - 07/20/2023 11:38 AM EST [facility] for referral services @ [facility] requested that they stop sending the referral for this patient as we have received it 16 times. The referral has been entered and we are waiting for it to be triaged. AO-07/20/23 documented in this encounter Plan of Treatment Upcoming Encounters Date Type Department Care Team (Late Contact Info) Description 03/28/2024 10:00 AM EDT Office Visit Hematology/Oncology at [address] [phone] Heber Phillips MD [facility] [place] [address] Isabella Baker APRN [facility] [place] [address] documented as of this encounter Visit Diagnoses Not on filedocumented in this encounter Care Teams Mill Operator Helper Relationship Specialty Start Date End Date Sayra Hawk APRN [address] [facility] [address] [place] [address] PCP - General Family Medicine 11/03/22 documented as of this encounter
--- OUTSIDE RECORDS SUMMARY | 2024-02-09 02:12 | XMS_ITS | Encounter Summary ---
[place] [address] Care Team Providers Care Wood Car Builder Name Role Phone Susansadie Sayra DEVANTE Primary Care Provider Reason for Visit * Reason Onset Date Comments Follow-up 01/04/2024 Encounter Details Date Type Department Care Team (Late Contact Info) Description 01/04/2024 Telephone Hematology/Oncology at [address] [phone] Aleida Knight RN Follow-up Social [...] AM EDT Office Visit Hematology/Oncology at [address] [phone] Heber Phillips MD [facility] [place] [address] Isabella Baker APRN [facility] [place] [address] documented as of this encounter Visit Diagnoses Not on filedocumented in this encounter Care Teams Wood Car Builder Relationship Specialty Start Date End Date Sayra Hawk APRN [address] [place] [address] [address] [place], [place] [address] PCP - General Family Medicine 11/03/22 documented as of this encounter
--- OUTSIDE RECORDS SUMMARY | 2024-02-09 02:12 | XMS_ITS | Encounter Summary ---
Author Organization [facility] [place] [address] Care Team Providers Care Education Research Analyst Name Role Phone SusanCindy noellaide DEVANTE Primary Care Provider [phone] Encounter Details Date Type Department Care Team (Late Contact Info) Description 10/12/2023 Telephone Hematology/Oncology at [address] [phone] Ciara Hurtado Social History Tobacco Use Types [...] AM EDT Office Visit Hematology/Oncology at [address] [phone] Heber Phillips MD [facility] [address] [place] [address] Isabella Baker APRN [facility] [place] [address] documented as of this encounter Visit Diagnoses Not on filedocumented in this encounter Care Teams Education Research Analyst Relationship Specialty Start Date End Date Sayra Hawk APRN [address] [place] [address] [address] [place] [address] PCP - General Family Medicine 11/03/22 documented as of this encounter
--- OUTSIDE RECORDS SUMMARY | 2024-02-09 02:12 | XMS_ITS | Encounter Summary ---
Author Organization [facility] Address [facility] [place] [address] Care Team Providers Care Cover Machine Operator Name Role Phone Sayra Hawk APRN Primary [...] AM EDT Office Visit Hematology/Oncology at [address] [phone] Heber Phillips MD [facility] DR [place] [address] Isabella Baker APRN [facility] [place] [address] documented as of this encounter Visit Diagnoses Not on filedocumented in this encounter Care Teams Cover Machine Operator Relationship Specialty Start Date End Date Sayra Hawk APRN [address] [place] [address] [address] [place] [address] PCP - General Family Medicine 11/03/22 documented as of this encounter
--- OUTSIDE RECORDS SUMMARY | 2024-02-09 02:12 | XMS_ITS | Encounter Summary ---
Author Organization [facility] Address [facility] [place] [address] Care Team Providers Care Display Fabricator Name Role Phone Sayra Hawk APRN Primary Care Provider [phone] Reason for Visit * Diagnostic Test (Routine) - Closed Specialty Diagnoses / Procedures Referred By Keven lozano Referred To Contact Diagnoses Stenosis of right carotid artery Procedures Carotid Duplex, Bilateral Jimbo Walker APRN [facility] [place] [place] [address] [facility]ascular Lab [address] [place] [address] Referral ID Status Reason Start Date Expiration Date V isits Requested Visits Authorized [id number] Closed Specialty Service Requested 07/21/2023 07/20/2024 1 1 Encounter Details Date Type Department Care Team (Late st Contact Info) Description 09/15/2023 1:00 PM EDT Tech [place] [address] Harry Hernandez [place] Stenosis of [...] AM EDT Office Visit Hematology/Oncology at [address] [phone] Heber Phillips MD [facility] [address] [place] [address] Isabella Baker APRN [facility] [place] [place] [address] documented as of this encounter Procedures Procedure Name Priority Date/Time Associated Diagnosis Comments NALDO, LEGS, MULTIPLE LEVELS Routine 09/15/2023 12:45 PM EDT PVD (peripheral vascular disease) CAROTID DUPLEX, BILATERAL Routine 09/15/2023 12:45 PM EDT Stenosis of right carotid artery documented in this encounter Results * NALDO, legs, multiple levels (09/15/2023 12:45 PM EDT) VB Text Report Department: Vascular Surgery Lab Patient: [id number] (BRITTA SAEED) CPT: 34318 Referring Physician: JIMBO WALKER ?? Phone: Indications: Hx of PVD, ? progression Diabetes mellitus: no Findings: Right ?Pressure (mm Hg) ?? NALDO ??Waveform ? Brachial Artery ?128 ? Dorsalis Pedis (Ankle) Artery ?92 ?0.72 ??Bi-Triphasic ?? Posterior Tibial (Ankle) Artery ??89 ?0.70 ??Gates-Biphasic ?? Left ? Pressure (mm Hg) ?? NALDO ??Waveform ? Brachial Artery ?121 ? Dorsalis Pedis (Ankle) Artery ?98 ?0.77 ??Gates-Biphasic ?? Posterior Tibial (Ankle) Artery ??93 ?0.73 [...] Text Report Department: Vascular Surgery Lab Patient: [id number] (BRITTA SAEED) CPT: 45002 Referring Physician: JIMBO WALKER ?? Phone: Indications: [...] unspecified documented in this encounter Care Teams Display Fabricator Relationship Specialty Start Date End Date Sayra Hawk APRN [address] [place] [address] PCP - General Family Medicine 11/03/22 documented as of this encounter
--- OUTSIDE RECORDS SUMMARY | 2024-02-09 02:12 | XMS_ITS | Encounter Summary ---
Author Organization [facility] [place] [address] Care Team Providers Care Book Or Script Editor Name Role Phone None Primary Care Provider Unavailabl e Reason for Visit * Reason Comments IV Medication Monoferric * Treatment/Therapy Plan Authorization (Routine) - Authorized Specialty Diagnoses / Procedures Referred By Contac t Referred To Contact Hematology and Oncology Diagnoses Iron deficiency anemia, unspecified iron deficiency anemia type Procedures [id number] MONOFERRIC Heber Phillips MD [address] [place] [address] DR [place] [address] Heber Phillips MD [address] [place] [address] DR [place] [address] Referral ID Status Reason Start Date Expiration Date V isits Requested Visits Authorized [id number] Authorized 10/13/2022 12/12/2023 99 99 Encounter Details Date Type Department Care Team (Late st Contact Info) Description 10/13/2022 3:00 PM EDT Infusion Hematology Oncology at [address] [phone] Iron deficiency anemia, unspecified iron deficiency anemia [...] AM EDT Office Visit Hematology/Oncology at [address] [phone] Heber Phillips MD [facility] DR [place]EMATOLOGY [place] [address] Isabella Baker APRN [facility] [place] [address] documented as of this encounter Visit Diagnoses [...] mL/hr documented in this encounter Care Teams Book Or Script Editor Relationship Specialty Start Date End Date None None PCP - General 01/12/22 11/02/22 documented as of this encounter
--- OUTSIDE RECORDS SUMMARY | 2024-02-09 02:12 | XMS_ITS | Encounter Summary ---
Author Organization [facility] Address [facility] [place] [address] Care Team Providers Care Molding Cutter Name Role Phone None Primary Care Provider [...] AM EDT Office Visit Hematology/Oncology at [address] [phone] Heber Phillips MD [facility] DR HEMATOLOGY [place] [address] Isabella Baker APRN [facility] [place] [address] documented as of this encounter Visit Diagnoses Not on filedocumented in this encounter Care Teams Molding Cutter Relationship Specialty Start Date End Date None None PCP - General 01/12/22 11/02/22 documented as of this encounter
--- OUTSIDE RECORDS SUMMARY | 2024-02-09 02:12 | XMS_ITS | Encounter Summary ---
Author Organization [facility] Address [facility] [place] [address] Care Team Providers Care Election Supervisor Name Role Phone Sayra Hawk APRN Primary Care Provider [phone]- [phone] Encounter Details Date Type Department Care Team [...] Office Visit Hematology/Oncology at [address] [phone] Heber Phillips MD [facility] DR HEMATOLOGY [place] [address] Isabella Baker APRN [facility] [place] [address] documented as of this encounter Visit Diagnoses Not on filedocumented in this encounter Care Teams Election Supervisor Relationship Specialty Start Date End Date Sayra Hawk APRN [address] [place] [address] [place] [address] PCP - General Family Medicine 11/03/22 documented as of this encounter
--- OUTSIDE RECORDS SUMMARY | 2024-02-09 02:12 | XMS_ITS | Encounter Summary ---
Author Organization [facility] [place] [address] Care Team Providers Care Medical Technologist Blood Bank Name Role Phone Kenn Sayra LOW Primary Care Provider +1 [phone] Reason for Referral * Diagnostic Test (Routine) - Closed Specialty Diagnoses / Procedures Referred By Contac t Referred To Contact Radiology Diagnoses Chest pain, unspecified type Procedures NM PET CT Cardiac Pharmacologic Stress CT Component Faustina Miller MD [facility] [place] [address] [place] [address] Referral ID Status Reason Start Date Expiration Date V isits Requested Visits Authorized [id number] Closed Specialty Service Requested 11/03/2022 05/02/2024 1 1 * Diagnostic Test (Routine) - Closed Specialty Diagnoses / Procedures Referred By Contac t Referred To Contact Radiology Diagnoses Chest pain, unspecified type Procedures NM PET CT Cardiac Pharmacologic Stress and Rest Faustina Miller MD [facility] [place] [address] [place] [address] Referral ID Status Reason Start Date Expiration Date V isits Requested Visits Authorized [id number] Closed Specialty Service Requested 11/03/2022 05/02/2024 1 1 * Diagnostic Test (Routine) - Closed Specialty Diagnoses / Procedures Referred By Keven lozano Referred To Contact Cardiology Diagnoses Chest pain, unspecified type Procedures Nuclear Pharmacologic Stress Cardiology (PET CT Mobile) Faustina Miller MD [facility] [place] [address] [facility] [place] [address] Referral ID Status Reason Start Date Expiration Date V isits Requested Visits Authorized [id number] Closed Specialty Service Requested 11/03/2022 11/03/2023 1 1 Reason for Visit * Consultation (Routine) - Closed Specialty Diagnoses / Procedures Referred By Keven lozano Referred To Contact Cardiology Diagnoses Coronary artery disease, unspecified vessel or lesion type, unspecified whether angina present, unspecified whether [place] or transplanted heart CARD ONC CAD. Very overdue for f/up. 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 Sayra Hawk, FINANCIAL PROCESSING CLERK [address] [place] [address] [facility] Cardiology [address] [place] [phone] Referral ID Status Reason Start Date Expiration Date V isits Requested Visits Authorized [id number] Closed Consult, Test & Treat 10/16/2022 10/16/2023 1 1 Encounter Details Date Type Department Care Team (Late st Contact Info) Description 11/03/2022 11:00 AM EDT Office Visit Cardiology at [address] [phone] Faustina Miller MD [facility] [place] [address] Chest pain, unspecified type; Coronary artery disease involving [place] coronary artery of o[place]inkie heart, unspecified whether angina present; PVD (peripheral [...] from the original note were not included. [facility] [place] [address] CARDIOLOGY OUTPATIENT PROGRESS NOTE PRIMARY CARE PROVIDER: [...] Till[facility] 67 [facility] HPI: 67 yo M CAD, PCI to [...] on file Occupational History ??? 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 Smoking status: Former [...] Social History Narrative Lives with his in [place], [place]. Retired from [employer] where he did repairs for 40 years. [...] Abdomen: Nondistended. Soft. Nontender. Extremities: No edema. CUSTODIAN SUPERVISOR: Normal mentation. Psych: Appropriate affect. Labs: Lab [...] Tillman is a 67 y.o. patient of [facility] presenting with: cardio-oncology assessment CAD (coronary artery [...] AM EDT Office Visit Hematology/Oncology at [address] [phone] Heber Phillips MD [facility] DR [place] [address] Isabella Baker APRN [facility] [place] [address] documented as of this encounter Results * [...] microvascular disease. Preliminary report signed by: Leno Garth at 12/08/2022 3:59 PM I have personally [...] have questions please contact the health care giver that requested your imaging first. ? Narrative [...] who have questions please contactthe health care giver that requested your imaging first. Faustina Miller [...] have questions please contact the health care giver that requested your imaging first. ? Narrative [...] Note Vamsi Perez MD - 12/08/2022 EXAMINATION: CO PET CT CARDIAC PHARMACOLOGIC STRESS AND REST, CO PET CTCARDIAC PHARMACOLOGIC STRESS CT COMPONENT CLINICAL [...] who have questions please contactthe health care giver that requested your imaging first. Faustina Miller MD IMG PET ORDERABLES documented in this encounter Visit Diagnoses Diagnosis Chest pain, unspecified type Coronary artery disease involving [place] coronary artery of o[place]inkie heart, unspecified whether angina present PVD (peripheral vascular disease) Peripheral vascular disease, unspecified Chest pain, unspecified type documented in this encounter Care Teams Medical Technologist Blood Bank Relationship Specialty Start Date End Date Sayra Hawk APRN [address] [facility] [place] [address] PCP - General Family Medicine 11/03/22 documented as of this encounter
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
--- OUTSIDE RECORDS SUMMARY | 2024-02-09 02:12 | XMS_ITS | Encounter Summary ---
Author Organization [facility] Address [facility] [place] [address] Care Team Providers Care Asbestos Worker Helper Name Role Phone Sayra Hawk APRN Primary Care Provider [phone]- [phone] Encounter Details Date Type Department Care Team (Latest Contact Info) Description 01/25/2024 Travel Social History Tobacco Use Types Packs/Day [...] AM EDT Office Visit Hematology/Oncology at [address] [phone] [facility] [address] HEMATOLOGY [place] [address] [facility] [place] [address] documented as of this encounter Visit Diagnoses Not on filedocumented in this encounter Care Teams Asbestos Worker Helper Relationship Specialty Start Date End Date Sayra Hawk APRN [address] [place] [address] [place] [address] PCP - General Family Medicine 11/03/22 documented as of this encounter
--- OUTSIDE RECORDS SUMMARY | 2024-02-09 02:12 | XMS_ITS | Encounter Summary ---
Author Organization [facility] [place] [address] Care Team Providers Care Registered Nurse Post Partum Name Role Phone None Primary Care Provider Unavailabl e Encounter Details Date Type Department Care Team (Late st Contact Info) Description 10/16/2022 External Results Non-[place] [id number] None None Social History Tobacco Use Types [...] AM EDT Office Visit Hematology/Oncology at [address] [phone] Heber Phillips MD [facility] [address] [place] [address] Isabella Baker APRN [facility] [place] [address] documented as of this encounter Procedures Procedure [...] on filedocumented in this encounter Care Teams Registered Nurse Post Partum Relationship Specialty Start Date End Date None None PCP - General 01/12/22 11/02/22 documented as of this encounter
--- OUTSIDE RECORDS SUMMARY | 2024-02-09 02:12 | XMS_ITS | Encounter Summary ---
Author Organization [facility] Address [facility] [place] [address] Care Team Providers Care Population Health Manager Name Role Phone Sayra Hawk APRN Primary Care Provider [phone]- [phone] Encounter Details Date Type Department Care Team [...] AM EDT Office Visit Hematology/Oncology at [address] [phone] Heber Phillips MD [facility] [address] [place] [address] Isabella Baker APRN [facility] [place] [address] documented as of this encounter Visit Diagnoses Not on filedocumented in this encounter Care Teams Population Health Manager Relationship Specialty Start Date End Date Sayra Hawk APRN [address] [place] [address] [place] [address] PCP - General Family Medicine 11/03/22 documented as of this encounter
--- OUTSIDE RECORDS SUMMARY | 2024-02-09 02:12 | XMS_ITS ---
Author Organization [facility] [place] [address] Care Team Providers Care Supervisor Waterproofing Name Role Phone Sayra Hawk APRN Primary [...] Other Current Plans FERRIC DERISOMALTOSE (MONOFERRIC) INFUSION ([facility] [place], [facility], [facility], [facility], [facility]) IRON DEFICIENCY [...] treatments are documented for this patient in [facility]. Treatments may have been administered in another [...]
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
--- OUTSIDE RECORDS SUMMARY | 2024-02-09 02:12 | XMS_ITS | Encounter Summary ---
Author Organization [facility] [place] [address] Care Team Providers Care Chemist Water Purification Name Role Phone Kenn Sayra DEVANTE Primary Care Provider Encounter Details Date Type Department Care Team (Latest Contact Info) Description 10/11/2023 11:55 AM EDT Laboratory Appointment Lab [address] [place] [phone] Special screening for malignant neoplasm of prostate; [...] AM EDT Office Visit Hematology/Oncology at [address] [phone] Heber Phillips MD [facility] [place]AT[place] [address] Isabella Baker APRN [facility] [place] [address] documented as of this encounter Procedures Procedure Name Priority Date/Time Associated Diagnosis Comments PSA SCREEN Routine 10/11/2023 11:19 AM EDT Special screening for malignant neoplasm of prostate HEMOGRAM Routine 10/11/2023 11:19 AM EDT Small cell lung cancer, right upper lobe DIFFERENTIAL, AUTOMATED Routine 10/11/2023 11:19 AM EDT Small cell lung cancer, right upper lobe HEPATITIS C RNA, QUANTITATIVE, PCR Routine 10/11/2023 11:19 AM EDT Routine general medical examination at a [facility] facility CBC (WITH DIFF) Routine 10/11/2023 11:19 AM EDT Small cell lung cancer, right upper lobe HEMOGLOBIN A1C Routine 10/11/2023 11:19 AM EDT Routine general medical examination at [facility] FERRITIN Routine 10/11/2023 11:19 AM EDT Iron deficiency anemia, unspecified iron deficiency anemia type LIPID PANEL (REFLEX DIRECT LDL) Routine 10/11/2023 11:19 AM EDT Routine general medical examination at [facility] COMPREHENSIVE METABOLIC PANEL Routine 10/11/2023 11:19 AM EDT Small cell lung cancer, right upper lobe documented in this encounter Results * (ABNORMAL) Differential, Automated (10/11/2023 11:19 AM EDT) Neutrophil % 79.8 % [facility] Neutrophil Absolute 6.30(H) 1.70 - 6.10 x10(3)/mc L [facility] Lymph % 6.7 % [facility] Lymphocytes Abs 0.5(L) 0.9 - 3.2 x10(3)/mc L [facility] Monocyte % 9.2 % [facility] Monocyte Abs 0.7 0.3 - 0.9 x10(3)/[facility] Eos % 2.5 % [facility] Eosinophils Abs 0.2 0.0 - 0.4 x10(3)/[facility] Basophil % 1.0 % [facility] Baso Absolute 0.1 0.0 - 0.1 x10(3)/[facility] Immature Gran % 0.80 % [facility] Comment: Immature granulocytes(IG's)percentage and absolute count will include metamyelocytes, myelocytes, and promyelocytes. Blood smears from CBCs yielding IG's will be scanned manually for concordance. If this scan disagrees with the automated IG or if promyelocytes are noted, a manual differential will be performed. Immature Gran Absolute 0.06(H) 0.00 - 0.04 x10(3)/[facility] Blood 10/11/2023 11:1 9 AM EDT 10/11/2023 11:25 AM EDT Narrative Resulting Agency Comment Spec In Lab Heber Phillips MD HEMATOLOGY ORDERABLE S [facility] [place] [address] * (ABNORMAL) Hemogram (10/11/2023 11:19 AM EDT) White Blood Cell 7.9 4.0 - 9.5 x10(3)/[facility] Red Blood Cell 4.40(L) 4.58 - 5.54 x10(6)/[facility] Hemoglobin 10.9(L) 13.7 - 16.5 g/dL [facility] Hematocrit 34.8(L) 40.5 - 48.5 % [facility] Mean Cell Volume 79.1(L) 82.9 - 93.1 fL [facility] Mean Cell Hemoglobin 24.8(L) 27.5 - 32.1 pg [facility] Mean Cell Hemoglobin Concentration 31.3(L) 32.0 - 35.7 g/dL [facility] Platelet 402(H) 145 - 357 x10(3)/mc L [facility] RDW Standard Deviation 48.2(H) 36.0 - 45.0 fL [facility] RDW coefficient of variation 16.8(H) 11.4 - 13.8 % [facility] Mean Platelet Volume 9.5 7.6 - 12.9 fL [facility] NRBC% auto 0.0 % [facility] NRBC Absolute 0.000 0.000 - 0.000 x10(3)/mc L [facility] Blood 10/11/2023 11:1 9 AM EDT 10/11/2023 11:25 AM EDT Narrative Resulting Agency Comment Spec In Lab Heber Phillips MD HEMATOLOGY ORDERABLE S [facility] [place] [address] * (ABNORMAL) Comprehensive metabolic panel (non-fasting) (10/11/2023 11:19 AM EDT) Glucose 107 65 - 199 mg/dL [facility] Comment:Diabetes: >=200 mg/d L plus symptoms Blood Urea Nitrogen 24(H) 10 - 20 mg/dL [facility] Creatinine 1.17 0.80 - 1.50 mg/dL [facility] Sodium 139 135 - 145 mmol/L [facility] Potassium 4.8 3.5 - 5.0 mmol/L [facility] Comment: Please note: ??Patients with WBC >100,000 may have falsely elevated Potassium levels. ??For accurate Potassium quantification in these patients send serum separator tube (gold top) for subsequent determinations. ??Contact the Clinical Chemistry Laboratory if there are any questions. Chloride 104 98 - 107 mmol/L [facility] Carbon Dioxide 28 22 - 31 mmol/L [facility] Anion Gap 7 5 - 15 mmol/L [facility] Calcium 9.5 8.5 - 10.5 mg/dL [facility] Protein, Total 7.3 6.1 - 8.0 g/dL [facility] Albumin 4.3 3.2 - 5.2 g/dL [facility] Aspartate Aminotransferase 19 0 - 39 unit/L [facility] Alanine Aminotransferase 19 0 - 55 unit/L [facility] Alkaline Phosphatase 92 40 - 130 unit/L [facility] Bilirubin, Total 0.3 0.2 - 1.3 mg/dL [facility] Est Glomerular Filtration Rate 67 >=60 mL/min/1. 73 m?? [facility] Comment: This patient's estimated GFR [...] In Lab Heber Phillips MD CHEMISTRY ORDERABLES [facility] [place] [address] * Ferritin (10/11/2023 11:19 AM EDT) Ferritin 31 31 - 409 ng/mL [facility] Comment: Please note that as of 05/26/2023, the reference intervals for Ferritin have been updated. Blood 10/11/2023 11:1 9 AM EDT 10/11/2023 11:25 AM EDT Narrative Resulting Agency Comment Spec In Lab Heber Phillips MD CHEMISTRY ORDERABLES Performing Organization Address [facility] Co de Phone Number [facility] [place] [address] * (ABNORMAL) Hemoglobin A1c (10/11/2023 11:19 AM EDT) Hemoglobin A1c 6.0(H) 4.3 - 5.6 % [facility] [...] Mellitus, Diabetes Care 2013; 36: Suppl. 1, S67-76 Estimated Average Glucose 125 mg/dL [facility] Blood 10/11/2023 11:1 9 AM EDT 10/11/2023 11:25 AM EDT Narrative Resulting Agency Comment Spec In Lab Sayra Hawk APRN CHEMISTRY ORDERABLE S Performing Organization Address [facility] Co de Phone Number [facility] [place] [address] * Lipid Panel (Reflex Direct LDL) (10/11/2023 11:19 AM EDT) Cholesterol, Total 97 mg/dL [facility] Comment: Desirable: ? <200 mg/dL Borderline High: 200-239 mg/dL Higher: ?>as=978 mg/dL Triglyceride 75 mg/dL [facility] Comment: Normal: ?<150 mg/dL Borderline High: 150-199 mg/dL High: ?200-499 mg/dL Very High: ? >bf=685 mg/dL HDL Cholesterol 35 mg/dL [facility] Comment: Females: High Risk: <50 mg/dL Males: High Risk: <40 mg/dL LDL Cholesterol 47 mg/dL [facility] Comment: Desirable: ? <100 mg/dL Above Desirable: 100-129 mg/dL Borderline High: 130-159 mg/dL High: ?160-189 mg/dL Very High: ? >kt=089 mg/dL Lipid Interpretation See Note [facility] Comment: It is important to review [...] ACC/AHA Guidelines (most recently Marilyn et al. [facility] 03/24/22): For individuals with atherosclerotic cardiovascular disease (ASCVD)or LDL >nb=207 mg/dL, use a high-intensity statin (40-80 mg [...] Agency Comment Spec In Lab Sayra Adjovu TOOL AND DIE MAKER CHEMISTRY ORDERABLE S Performing Organization Address [facility] Co de Phone Number [facility] [place] [address] * Hepatitis C RNA, quantitative, PCR (10/11/2023 11:19 AM EDT) HCV Viral Load <12 IU/mL [facility] HCV Viral Load Result: <12 [...] by the U.S. Food and Drug Administration. [facility] Comment: [VERIFIED DATE]10.12.23 Verified By:Jackie Ashby (Electronic Signature) Blood 10/11/2023 11:1 9 AM EDT 10/11/2023 1:24 PM EDT Narrative Resulting Agency Comment Spec In Lab Sayra Adjovu TOOL AND DIE MAKER MOLECULAR ORDERABLE S Performing Organization Address City/[facility]/ZIP Co de Phone Number [facility] [place] [address] * PSA Screen (10/11/2023 11:19 AM EDT) PSA Screen 1.37 0.00 - 4.00 ng/mL [facility] Comment: PLEASE NOTE: The above reference [...] Lab Sayra Hawk APRN CHEMISTRY ORDERABLE S [facility] [place] [address] documented in this encounter Visit Diagnoses Diagnosis Special screening for malignant neoplasm of prostate Routine general medical examination at a health care facility Iron deficiency anemia, unspecified iron deficiency anemia type Small cell lung cancer, right upper lobe documented in this encounter Care Teams Chemist Water Purification Relationship Specialty Start Date End Date Sayra Hawk APRN [address] [place] [address] PCP - General Family Medicine 11/03/22 documented as of this encounter
--- OUTSIDE RECORDS SUMMARY | 2024-02-09 02:12 | XMS_ITS | Encounter Summary ---
Author Organization [facility] Address [facility] [place] [address] Care Team Providers Care Green Material Value Added Assessor Name Role Phone Sayra Hawk APRN Primary Care Provider [phone] Encounter Details Date Type Department Care Team (Late st Contact Info) Description 07/20/2023 Transcribe [place] [phone] Sayra Hawk APRN [address] [place], [place] [id number] Routine general medical examination at a health [...] AM EDT Office Visit Hematology/Oncology at [address] [phone] Heber Phillips MD [facility] H[place]ATOLOGY [place] [address] Isabella Baker APRN [facility] [place] [address] documented as of this encounter Results * PSA Screen (10/11/2023 11:19 AM EDT) Pathologist [facility] PSA Screen 1.37 0.00 - 4.00 ng/mL [facility] Comment: PLEASE NOTE: The above [...] Resulting Agency Comment Spec In Lab Sayra Adjoanhu MARINE ENGINE MECHANIC CHEMISTRY ORDERABLE S [facility] [place] [address] * Hepatitis C RNA, quantitative, PCR (10/11/2023 11:19 AM EDT) [facility] HCV Viral Load <12 IU/mL [facility] HCV Viral Load Result: <12 [...] by the U.S. Food and Drug Administration. [facility] Comment: [VERIFIED DATE]10.12.23 Verified By:Jackie Ashby (Electronic Signature) Blood 10/11/2023 11:1 9 AM EDT 10/11/2023 1:24 PM EDT Narrative Resulting Agency Comment Spec In Lab Sayra Hawk APRN MOLECULAR ORDERABLE S [facility] [place] [address] * Lipid Panel (Reflex Direct LDL) (10/11/2023 11:19 AM EDT) Cholesterol, Total 97 mg/dL [facility] Comment: Desirable: ? <200 mg/dL Borderline High: 200-239 mg/dL Higher: ?>ly=856 mg/dL Triglyceride 75 mg/dL [facility] Comment: Normal: ?<150 mg/dL Borderline High: 150-199 mg/dL High: ?200-499 mg/dL Very High: ? >ig=778 mg/dL HDL Cholesterol 35 mg/dL [facility] Comment: Females: High Risk: <50 mg/dL Males: High Risk: <40 mg/dL LDL Cholesterol 47 mg/dL [facility] Comment: Desirable: ? <100 mg/dL Above Desirable: 100-129 mg/dL Borderline High: 130-159 mg/dL High: ?160-189 mg/dL Very High: ? >dh=517 mg/dL Lipid Interpretation See Note [facility] Comment: It is important to [...] even lower. ACC/AHA Guidelines (most recently Marilyn toussaint al. [facility] 03/24/22): For individuals with atherosclerotic cardiovascular disease (ASCVD)or LDL >pn=208 mg/dL, use a high-intensity statin (40-80 mg [...] Lab Sayra Hawk APRN CHEMISTRY ORDERABLE S [facility] [place] [address] * (ABNORMAL) Hemoglobin A1c (10/11/2023 11:19 AM EDT) Hemoglobin A1c 6.0(H) 4.3 - 5.6 % [facility] Comment: Reference Range: 4.3 - [...] Mellitus, Diabetes Care 2013; 36: Suppl. 1, M97-23 Estimated Average Glucose 125 mg/dL [facility] Blood 10/11/2023 11:1 9 AM EDT 10/11/2023 11:25 AM EDT Narrative Resulting Agency Comment Spec In Lab Sayra Hawk APRN CHEMISTRY ORDERABLE S [facility] [place] [address] documented in this encounter Visit Diagnoses Diagnosis Routine general medical examination at a health care facility Special screening for malignant neoplasm of prostate documented in this encounter Care Teams Green Material Value Added Assessor Relationship Specialty Start Date End Date Sayra Hawk APRN [address] [place] [address] PCP - General Family Medicine 11/03/22 documented as of this encounter
--- OUTSIDE RECORDS SUMMARY | 2024-02-09 02:12 | XMS_ITS | Encounter Summary ---
Author Organization [facility] Address [facility] [place] [address] Care Team Providers Care Ecologist Technician Name Role Phone Sayra Hawk APRN Primary Care Provider [phone] Encounter Details Date Type Department Care Team [...] AM EDT Office Visit Hematology/Oncology at [address] [phone] Heber Phillips MD [facility] DR HEMATOLOGY [place] [address] Isabella Baker APRN [facility] [place] [address] documented as of this encounter Visit Diagnoses Not on filedocumented in this encounter Care Teams Ecologist Technician Relationship Specialty Start Date End Date Sayra Hawk APRN [address] [place] [address] [place] [address] PCP - General Family Medicine 11/03/22 documented as of this encounter
--- OUTSIDE RECORDS SUMMARY | 2024-02-09 02:12 | XMS_ITS | Encounter Summary ---
Author Organization [facility] [place] [address] Care Team Providers Care Production Aide Name Role Phone Sayra Hawk APRN Primary Care Provider [phone] Reason for Visit * Reason Comments IV Medication Monoferric * Treatment/Therapy Plan Authorization (Routine) - Authorized Specialty Diagnoses / Procedures Referred By Contac t Referred To Contact Hematology and Oncology Diagnoses Iron deficiency anemia, unspecified iron deficiency anemia type Procedures [id number] MONOFERRIC Heber Phillips MD [address] [place] [address] [place] [address] Heber Phillips MD [address] [place] [address] [place] [address] Referral ID Status Reason Start Date Expiration Date V isits Requested Visits Authorized [id number] Authorized 10/13/2022 12/12/2023 99 99 Encounter Details Date Type Department Care Team (Late st Contact Info) Description 10/12/2023 10:30 AM EDT Infusion Hematology Oncology at [address] [phone] Iron deficiency anemia, unspecified iron [...] AM EDT Office Visit Hematology/Oncology at [address] [phone] Heber Phillips MD [facility] DR HEMATOLOG[place] [address] Isabella Baker APRN [facility] [place] [address] documented as of this encounter Visit Diagnoses [...] mL/hr documented in this encounter Care Teams Production Aide Relationship Specialty Start Date End Date Sayra Hawk APRN [address] [place] [address] PCP - General Family Medicine 11/03/22 documented as of this encounter
--- OUTSIDE RECORDS SUMMARY | 2024-02-09 02:12 | XMS_ITS | Encounter Summary ---
[place] [address] Care Team Providers Care Middle [employer] Football Coach Name Role Phone Sayra Hawk APRN Primary Care Provider [phone] Reason for Referral * Consultation (Routine) - Closed Specialty Diagnoses / Procedures Referred By Contac t Referred To Contact Vascular Surgery Diagnoses Peripheral vascular disease ROUTINE, /CARLOS, NALDO, B CAR DUP Sayra Hawk APRN [address] [place] [address] [facility] [place] [address] [place] [address] Referral ID Status Reason Start Date Expiration Date V isits Requested Visits Authorized [id number] Closed Consult, Test & Treat 07/20/2023 07/19/2024 1 1 Encounter Details Date Type Department Care Team (Late st Contact Info) Description 07/20/2023 Transcribe Orders eDH Incoming Referrals [phone] Sayra Hawk APRN [address] [place] [address] Peripheral vascular disease Social History [...] AM EDT Office Visit Hematology/Oncology at [address] [phone] Heber Phillips MD [facility] DR HEMATOLOGY [place] [address] Isabella Baker APRN [facility] [place] [address] Scheduled Referrals Name Type Priority Associated Diagnoses Orde r Schedule Referral to Vascular Surgery Outpatient Referral Urgent Peripheral vascular disease Ordered: 07/20/2023 documented as of this encounter Visit Diagnoses Diagnosis Peripheral vascular disease Peripheral vascular disease, unspecified documented in this encounter Care Teams Middle [employer] Football Coach Relationship Specialty Start Date End Date Sayra Hawk APRN [address] [place] [address] PCP - General Family Medicine 11/03/22 documented as of this encounter
--- OUTSIDE RECORDS SUMMARY | 2024-02-09 02:12 | XMS_ITS | Encounter Summary ---
Author Organization [facility] [place] [address] Care Team Providers Care Pitching Coach Name Role Phone Sayra Hawk APRN Primary Care Provider [phone] Reason for Referral * Diagnostic Test (Routine) - Closed Specialty Diagnoses / Procedures Referred By Contac t Referred To Contact Cardiology Diagnoses Chest pain, unspecified type Procedures Nuclear Pharmacologic Stress Cardiology (PET CT Mobile) Faustina Miller MD [facility] [place] [address] [facility] [place] [address] Referral ID Status Reason Start Date Expiration Date V isits Requested Visits Authorized [id number] Closed Specialty Service Requested 11/03/2022 11/03/2023 1 1 Reason for Visit * Diagnostic Test (Routine) - Closed Specialty Diagnoses / Procedures Referred By Contac t Referred To Contact Cardiology Diagnoses Chest pain, unspecified type Procedures Nuclear Pharmacologic Stress Cardiology (PET CT Mobile) Faustina Miller MD [facility] [place] [address] [facility] [place] [address] Referral ID Status Reason Start Date Expiration Date V isits Requested Visits Authorized [id number] Closed Specialty Service Requested 11/03/2022 11/03/2023 1 1 Encounter Details Date Type Department Care Team (Latest Contact Info) Description 12/08/2022 11:32 AM EDT - 12/08/2022 11:59 PM EDT Hospital Encounter Non-Invasive Cardiology Lab [facility] [place] [address] Faustina Miller MD [facility] [place] [place] [address] Chest pain, unspecified type Discharge Disposition: Home [...] mg Tablet, SublingualIndications :Coronary artery disease involving [place] heart without angina pectoris, unspecified vessel or [...] AM EDT Office Visit Hematology/Oncology at [address] [phone] Heber Phillips MD [facility] HEMATOLOGY [place] [address] Isabella Baker APRN [facility] [place] [address] documented as of this encounter Procedures Procedure [...] type documented in this encounter Care Teams Pitching Coach Relationship Specialty Start Date End Date Sayra Hawk APRN [address] [place] [address] PCP - General Family Medicine 11/03/22 documented as of this encounter
--- OUTSIDE RECORDS SUMMARY | 2024-02-09 02:12 | XMS_ITS | Encounter Summary ---
Author Organization [facility] Address [facility] [place] [address] Care Team Providers Care Meat Scrubber Name Role Phone Kenn Sayra LOW Primary Care Provider [phone] Encounter Details Date Type Department Care Team (Latest Contact Info) Description 07/30/2023 11:20 AM EST Office Visit Cardiology at [address] [phone] Bi Dia MD [facility] [place] [address] ASCVD (arteriosclerotic cardiovascular disease) Social History Tobacco [...] AM EDT Office Visit Hematology/Oncology at [address] [phone] Heber Phillips MD [facility] DR HEMATOLOGY [place] [address] Isabella Baker APRN [facility] [place] [address] documented as of this encounter Visit Diagnoses Diagnosis ASCVD (arteriosclerotic cardiovascular disease) Unspecified cardiovascular disease documented in this encounter Care Teams Meat Scrubber Relationship Specialty Start Date End Date Sayra Hawk APRN [address] [place] [address] PCP - General Family Medicine 11/03/22 documented as of this encounter
--- OUTSIDE RECORDS SUMMARY | 2024-02-09 02:12 | XMS_ITS | Encounter Summary ---
Author Organization [facility] [place] [address] Care Team Providers Care Bolt Man Name Role Phone Kenn Sayra LOW Primary Care Provider +1- [phone] Reason for Referral * Diagnostic Test (Routine) - Closed Specialty Diagnoses / Procedures Referred By Contac t Referred To Contact Radiology Diagnoses Small cell lung cancer, right upper lobe Lung nodule seen on imaging study Procedures CT Chest wo Contrast (Generic) Heber Phillips MD [facility] DR HEMATOLOGY [place] [address] [facility] [place] [address] Referral ID Status Reason Start Date Expiration Date V isits Requested Visits Authorized [id number] Closed Specialty Service Requested 10/12/2023 04/12/2025 1 1 Reason for Visit * Diagnostic Test (Routine) - Closed Specialty Diagnoses / Procedures Referred By Contac t Referred To Contact Radiology Diagnoses Small cell lung cancer, right upper lobe Lung nodule seen on imaging study Procedures CT Chest wo Contrast (Generic) Heber Phillips MD [facility] DR HEMATOLOGY [place] [address] [facility] [place] [address] Referral ID Status Reason Start Date Expiration Date V isits Requested Visits Authorized [id number] Closed Specialty Service Requested 10/12/2023 04/12/2025 1 1 Encounter Details Date Type Department Care Team (Latest Contact Info) Description 01/25/2024 2:29 PM EDT - 01/25/2024 11:59 PM EDT Hospital Encounter CT Scan at [facility] [place] [address] Heber Phillips MD [facility] DR HEMATOLOGY [place] [address] Small cell lung cancer, right upper lobe; Lung nodule seen on imaging study Discharge Disposition: Home Social History Tobacco Use [...] Sig Dispensed Refills Start Date End Date Ashkantri Aerosphere 160-9-4.8 mcg/actuation inhaler (HFA) Inhale 2 puffs into the lungs 2 times daily. 12/15/2023 azithromycin (Zithromax) 250 mg tablet Take by mouth daily. Day1:take 2 tablets daily, Day 2-5:Take one tablet daily nitroGLYcerin (Nitrostat) 0.4 mg Tablet, SublingualIndications: Coronary artery disease involving [place] heart without angina pectoris, unspecified vessel or [...] tablet Take 81 mg by mouth daily. documented as of this encounter Plan of Treatment Upcoming Encounters Date Type Department Care Team (Late st Contact Info) Description 03/28/2024 10:00 AM EDT Office Visit Hematology/Oncology at [address] [phone] Heber Phillips MD [facility] DR HEMATOLOGY [place] [address] Isabella Baker APRN [facility] [place] [address] documented as of this encounter Procedures Procedure Name Priority Date/Time Associated Diagnosis Comments CT CHEST WO CONTRAST (GENERIC) Routine 01/25/2024 3:50 PM EDT Small cell lung cancer, right upper lobe Lung nodule seen on imaging study documented in this encounter Results * CT Chest wo Contrast (Generic) (01/25/2024 3:50 PM EDT) WORKSTATION ID [id number] DH RAD Anatomical Region Laterality Modality Chest [...] have questions please contact the health healthcare architect that requested your imaging first. ? Narrative [...] who have questions please contactthe health healthcare architect that requested your imaging first. Heber Phillips MD IMG CT ORDERABLES documented in this encounter Visit Diagnoses Diagnosis Small cell lung cancer, right upper lobe Lung nodule seen on imaging study Solitary pulmonary nodule documented in this encounter Care Teams Bolt Man Relationship Specialty Start Date End Date Sayra Hawk, BEEF GRADER [address] [place] [address] PCP - General Family Medicine 11/03/22 documented as of this encounter
--- OUTSIDE RECORDS SUMMARY | 2024-02-09 02:12 | XMS_ITS | Encounter Summary ---
Author Organization [facility] [place] [address] Care Team Providers Care Mac Artist Name Role Phone Sayra Hawk APRN Primary Care Provider +1 [phone] Encounter Details Date Type Department Care Team (Latest Contact Info) Description 01/25/2024 2:04 PM EDT - 01/25/2024 2:28 PM EDT Hospital Encounter [place] [address] Iron deficiency anemia, unspecified iron deficiency anemia [...] Sig Dispensed Refills Start Date End Date Suzy Aerosphere 160-9-4.8 mcg/actuation inhaler (HFA) Inhale 2 puffs into the lungs 2 times daily. 12/15/2023 azithromycin (Zithromax) 250 mg tablet Take by mouth daily. Day1:take 2 tablets daily, Day 2-5:Take one tablet daily nitroGLYcerin (Nitrostat) 0.4 mg Tablet, SublingualIndications: Coronary artery disease involving [place] heart without angina pectoris, unspecified vessel or [...] AM EDT Office Visit Hematology/Oncology at [address] [phone] Heber Phillips MD [facility] [place] [address] Isabella Baker APRN [facility] [place] [address] documented as of this encounter Procedures Procedure Name Priority Date/Time Associated Diagnosis Comments IRON AND TIBC Routine 01/25/2024 2:13 PM EDT Iron deficiency anemia, unspecified iron deficiency anemia type Small cell lung cancer, right upper lobe CBC (WITH DIFF) Routine 01/25/2024 2:13 PM EDT Iron deficiency anemia, unspecified iron deficiency anemia type Small cell lung cancer, right upper lobe FERRITIN Routine 01/25/2024 2:13 PM EDT Iron deficiency anemia, unspecified iron deficiency anemia type Small cell lung cancer, right upper lobe COMPREHENSIVE METABOLIC PANEL Routine 01/25/2024 2:13 PM EDT Iron deficiency anemia, unspecified iron deficiency anemia type Small cell lung cancer, right upper lobe documented in this encounter Results * Ferritin (01/25/2024 2:13 PM EDT) Ferritin 189 31 - 409 ng/ml 01/25/2024 3:14 PM EDT [facility] Blood VENOUS BLOOD SPECIMEN / Unknown Venipuncture / Unknown 01/25/2024 2:13 PM EDT 01/25/2024 2:14 PM EDT Isabella Baker APRN CHEMISTRY ORDERABL ES [facility] [place] [address] * Iron and TIBC (01/25/2024 2:13 PM EDT) Iron 87 45 - 160 mcg/dL 01/25/2024 6:20 PM EDT [facility] Unsaturated Iron Binding Capacity 206 110 - 370 mcg/dL 01/25/2024 6:20 PM EDT [facility] TIBC 293 250 - 450 mcg/dL 01/25/2024 6:20 PM EDT [facility] Iron Saturation 30 20 - 50 % 6:20 PM EDT [facility] Blood VENOUS BLOOD SPECIMEN / Unknown Venipuncture / Unknown 01/25/2024 2:13 PM EDT 01/25/2024 2:14 PM EDT Isabella Baker ELECTRON BEAM WELDER SETTER CHEMISTRY ORDERABL ES [facility] [place] [address] * (ABNORMAL) Comprehensive metabolic panel (non-fasting) (01/25/2024 2:13 PM EDT) Glucose 103 65 - 199 mg/dL 01/25/2024 3:18 PM EDT [facility] Comment:Glucose Concentratio n >=200 mg/dL plus symptoms is consistent with Diabetes Mellitus. Blood Urea Nitrogen 39(H) 10 - 20 mg/dL 01/25/2024 3:18 PM EDT [facility] Creatinine 1.31 0.80 - 1.50 mg/dL 01/25/2024 3:18 PM EDT [facility] Sodium 137 135 - 145 mMol/L 01/25/2024 3:18 PM EDT [facility] Potassium 4.8 3.5 - 5.0 mMol/L 01/25/2024 3:18 PM EDT [facility] Chloride 102 98 - 107 mMol/L 01/25/2024 3:18 PM EDT [facility] Carbon Dioxide 24 22 - 31 mMol/L 01/25/2024 3:18 PM EDT [facility] Anion Gap 11 5 - 15 mMol/L 01/25/2024 3:18 PM EDT [facility] Calcium 10.5 8.5 - 10.5 mg/dL 01/25/2024 3:18 PM EDT [facility] Protein, Total 7.3 6.1 - 8.0 g/dL 01/25/2024 3:18 PM EDT [facility] Albumin 4.5 3.2 - 5.2 g/dL 01/25/2024 3:18 PM EDT [facility] Aspartate Aminotransferase 20 <=39 unit/L 01/25/2024 3:18 PM EDT [facility] Alanine Aminotransferase 23 0 - 55 unit/L 01/25/2024 3:18 PM EDT [facility] Alkaline Phosphatase 100 40 - 130 unit/L 01/25/2024 3:18 PM EDT [facility] Bilirubin, Total 0.2 <=1.3 mg/dL 01/25/2024 3:18 PM EDT [facility] Est Glomerular Filtration Rate - Male 59 mL/min/1. 73 m?? 01/25/2024 3:18 PM EDT [facility] Comment: This patient's estimated [...] Fasting Status No 01/25/2024 3:18 PM EDT [facility] Blood VENOUS BLOOD SPECIMEN / Unknown Venipuncture / Unknown 01/25/2024 2:13 PM EDT 01/25/2024 2:14 PM EDT Isabella Baker ELECTRON BEAM WELDER SETTER CHEMISTRY ORDERABL ES [facility] [place] [address] * (ABNORMAL) CBC (with Diff) (01/25/2024 2:13 PM EDT) White Blood Cell 9.58 x10(3)/mc L 01/25/2024 2:39 PM EDT [facility] Red Blood Cell 5.07 4.58 - 5.54 x10(6)/mc L 01/25/2024 2:39 PM [facility] Hemoglobin 14.2 13.7 - 16.5 g/dL 01/25/2024 2:39 PM [facility] Hematocrit 42.9 40.5 - 48.5 % 01/25/2024 2:39 PM [facility] Mean Cell Volume 84.6 82.9 - 93.1 fL 01/25/2024 2:39 PM [facility] Mean Cell Hemoglobin 28.0 27.5 - 32.1 pg 01/25/2024 2:39 PM [facility] Mean Cell Hemoglobin Concentration 33.1 32.0 - 35.7 g/dL 01/25/2024 2:39 PM [facility] Platelet 384(H) 145 - 357 x10(3)/mc L 01/25/2024 2:39 PM [facility] Mean Platelet Volume 9.4 7.6 - 12.9 fL 01/25/2024 2:39 PM [facility] RDW Standard Deviation 54.1(H) 36.0 - 45.0 fL 01/25/2024 2:39 PM [facility] RDW coefficient of variation 17.3(H) 11.4 - 13.8 % 01/25/2024 2:39 PM [facility] NRBC% auto 0.0 % 01/25/2024 2:39 PM [facility] NRBC Absolute 0.00 0.00 - 0.00 x10(3)/mc L 01/25/2024 2:39 PM [facility] Neutrophil % 79.0 % 01/25/2024 2:39 PM [facility] Neutrophil Absolute 7.57(H) 1.70 - 6.10 x10(3)/mc L 01/25/2024 2:39 PM [facility] Lymph % 6.8 % 01/25/2024 2:39 PM [facility] Lymph Absolute 0.65(L) 0.90 - 3.20 x10(3)/mc L 01/25/2024 2:39 PM EDT [facility] Monocyte % 10.3 % 01/25/2024 2:39 PM EDT [facility] Monocyte Absolute 0.99(H) 0.30 - 0.90 x10(3)/mc L 01/25/2024 2:39 PM EDT [facility] Eos % 2.0 % 01/25/2024 2:39 PM EDT [facility] Eos Absolute 0.19 0.00 - 0.40 x10(3)/mc L 01/25/2024 2:39 PM EDT [facility] Basophil % 0.6 % 01/25/2024 2:39 PM EDT [facility] Baso Absolute 0.06 0.00 - 0.10 x10(3)/mc L 01/25/2024 2:39 PM EDT [facility] Immature Gran % 1.3 % 2:39 PM EDT [facility] Immature Gran Absolute 0.12(H) 0.00 - 0.04 x10(3)/mc L 01/25/2024 2:39 PM EDT [facility] Blood VENOUS BLOOD SPECIMEN / Unknown Venipuncture / Unknown 01/25/2024 2:13 PM EDT 01/25/2024 2:14 PM EDT Isabella Baker ELECTRON BEAM WELDER SETTER HEMATOLOGY ORDERAB LES [facility] [place] [address] documented in this encounter Visit Diagnoses Diagnosis Iron deficiency anemia, unspecified iron deficiency anemia type Small cell lung cancer, right upper lobe documented in this encounter Care Teams Mac Artist Relationship Specialty Start Date End Date Sayra Hawk APRN [address] [place] [address] [address] [place] [address] PCP - General Family Medicine 11/03/22 documented as of this encounter
--- OUTSIDE RECORDS SUMMARY | 2024-02-09 02:12 | XMS_ITS | Encounter Summary ---
Author Organization [facility] [place] [address] Care Team Providers Care Turbine Subassembler Name Role Phone SusanSayra noel DEVANTE Primary Care Provider [phone]- [phone] Encounter Details Date Type Department Care Team (Late Contact Info) Description 12/07/2023 Telephone Hematology/Oncology at [address] [phone] Ciara Hurtado Social History Tobacco Use Types [...] AM EDT Office Visit Hematology/Oncology at [address] [phone] Heber Phillips MD [facility] [address] [place] [address] Isabella Baker APRN [facility] [place] [address] documented as of this encounter Visit Diagnoses Not on filedocumented in this encounter Care Teams Turbine Subassembler Relationship Specialty Start Date End Date Sayra Hawk APRN [address] [place] [address] [address] [place] [address] PCP - General Family Medicine 11/03/22 documented as of this encounter
--- OUTSIDE RECORDS SUMMARY | 2024-02-09 02:12 | XMS_ITS | Encounter Summary ---
[place] [address] Care Team Providers Care Client Service And Consulting Manager Name Role Phone Kenn Sayra LOW Primary Care Provider +1 [phone] Encounter Details Date Type Department Care Team (Late st Contact Info) Description 11/19/2023 Telephone Cardiology at [address] [phone] Rosa Mancera, RN Social History [...] 11/19/2023 10:59 AM EDT Fax received from [employer] requesting a prescription for a portable oxygen concentrator from Dr. Dia. TC to patient to inquire on fax. Patient states it is a portable concentrator that he is attempting to purchase directly. Recommended he discuss with his community development technician and request Rx from them. Patient verbalized understanding. Rosa Mancera food cashier Clinic at [facility] [phone] documented in this encounter Plan of Treatment Upcoming Encounters Date Type Department Care Team (Late st Contact Info) Description 03/28/2024 10:00 AM EDT Office Visit Hematology/Oncology at [address] [phone] Heber Phillips MD [facility] DR [place] [address] Isabella Baker APRN [facility] [place] [address] documented as of this encounter Visit Diagnoses Not on filedocumented in this encounter Care Teams Client Service And Consulting Manager Relationship Specialty Start Date End Date Sayra Hawk APRN [address] [place] [address] PCP - General Family Medicine 11/03/22 documented as of this encounter
--- OUTSIDE RECORDS SUMMARY | 2024-02-09 02:12 | XMS_ITS | Encounter Summary ---
Author Organization [facility] [address] Care Team Providers Care Loans Consultant Name Role Phone Kenn Sayra LOW Primary Care Provider [phone] Reason for Referral * Diagnostic Test (Routine) - Closed Specialty Diagnoses / Procedures Referred By Contac t Referred To Contact Radiology Diagnoses Chest pain, unspecified type Procedures NM PET CT Cardiac Pharmacologic Stress CT Component Faustina Miller MD [facility] [place] [address] [place] [address] Referral ID Status Reason Start Date Expiration Date V isits Requested Visits Authorized [id number] Closed Specialty Service Requested 11/03/2022 05/02/2024 1 1 * Diagnostic Test (Routine) - Closed Specialty Diagnoses / Procedures Referred By Contac t Referred To Contact Radiology Diagnoses Chest pain, unspecified type Procedures NM PET CT Cardiac Pharmacologic Stress and Rest Faustina Miller MD [facility] [place] [address] [place] [address] Referral ID Status Reason Start Date Expiration Date V isits Requested Visits Authorized [id number] Closed Specialty Service Requested 11/03/2022 05/02/2024 1 1 Reason for Visit * Diagnostic Test (Routine) - Closed Specialty Diagnoses / Procedures Referred By Keven lozano Referred To Contact Radiology Diagnoses Chest pain, unspecified type Procedures NM PET CT Cardiac Pharmacologic Stress and Rest Faustina Miller MD [facility] [place] [address] [place] [address] Referral ID Status Reason Start Date Expiration Date V isits Requested Visits Authorized [id number] Closed Specialty Service Requested 11/03/2022 05/02/2024 1 1 Encounter Details Date Type Department Care Team (Latest Contact Info) Description 12/08/2022 11:20 AM EDT - 12/08/2022 11:31 AM EDT Hospital Encounter [place] [address] Faustina Miller MD [facility] [place] [address] Chest pain, unspecified type Discharge Disposition: Home [...] mg Tablet, SublingualIndications :Coronary artery disease involving [place] heart without angina pectoris, unspecified vessel or [...] AM EDT Office Visit Hematology/Oncology at [address] [phone] Heber Phillips MD [facility] [place] [address] Isabella Baker APRN [facility] [place] [address] documented as of this encounter Procedures Procedure [...] questions please contact the health client care coordinator that requested your imaging first. ? Narrative 12/08/2022 4:21 PM EDT EXAMINATION: [place] PET CT CARDIAC PHARMACOLOGIC STRESS AND REST, [place] PET CT CARDIAC PHARMACOLOGIC STRESS CT COMPONENT [...] Note Vamsi Perez MD - 12/08/2022 EXAMINATION: [place] PET CT CARDIAC PHARMACOLOGIC STRESS AND REST, [place] PET CTCARDIAC PHARMACOLOGIC STRESS CT COMPONENT CLINICAL [...] have questions please contactthe health client care coordinator that requested your imaging first. Faustina Miller [...] questions please contact the health client care coordinator that requested your imaging first. ? Narrative 12/08/2022 4:21 PM EDT EXAMINATION: [place] PET CT CARDIAC PHARMACOLOGIC STRESS AND REST, [place] PET CT CARDIAC PHARMACOLOGIC STRESS CT COMPONENT [...] Note Vamsi Perez MD - 12/08/2022 EXAMINATION: [place] PET CT CARDIAC PHARMACOLOGIC STRESS AND REST, [place] PET CTCARDIAC PHARMACOLOGIC STRESS CT COMPONENT CLINICAL [...] have questions please contactthe health client care coordinator that requested your imaging first. Faustina Miller MD IMG PET ORDERABLES documented in this encounter Visit Diagnoses Diagnosis Chest pain, unspecified type documented in this encounter Administered Medications Inactive Administered Medications - up to 3 most recent administrations Medication Order MAR Action Action Date Dose Rate Site regadenoson (Lexiscan) injection 0.4 mg 0.4 mg, Intravenous, ONCE, 1 dose, On Wed12/08/22 at 1215, Radiology Contrast, Routine Given 12/08/2022 [...] Arm documented in this encounter Care Teams Loans Consultant Relationship Specialty Start Date End Date Sayra Hawk, DEVANTE [address] [place] [address] PCP - General Family Medicine 11/03/22 documented as of this encounter
--- OUTSIDE RECORDS SUMMARY | 2024-02-09 02:12 | XMS_ITS | Encounter Summary ---
[place] [address] Care Team Providers Care Political Science Faculty Member Name Role Phone Sayra Hawk APRN Primary Care Provider [phone]- [phone] Reason for Referral * Diagnostic Test (Routine) - Closed Specialty Diagnoses / Procedures Referred By Contac t Referred To Contact Diagnoses PVD (peripheral vascular disease) Procedures NALDO, legs, multiple levels Jimbo Walker APRN [facility] [place] [address] [facility] [address] [place] [phone] Referral ID Status Reason Start Date Expiration Date V isits Requested Visits Authorized [id number] Closed Specialty Service Requested 07/21/2023 07/20/2024 1 1 * Diagnostic Test (Routine) - Closed Specialty Diagnoses / Procedures Referred By Contac t Referred To Contact Diagnoses Stenosis of right carotid artery Procedures Carotid Duplex, Bilateral Jimbo Walker APRN [facility] [place] [address] [facility] [address] [place] [phone] Referral ID Status Reason Start Date Expiration Date V isits Requested Visits Authorized [id number] Closed Specialty Service Requested 07/21/2023 07/20/2024 1 1 Encounter Details Date Type Department Care Team (Late Contact Info) Description 07/21/2023 Orders Only [place] [address] Jimbo Walker CHASER HELPER [facility] [place] [address] PVD (peripheral vascular disease); Stenosis of right [...] AM EDT Office Visit Hematology/Oncology at [address] [phone] Heber Phillips MD [facility] [address] [place] [address] Isabella Baker APRN [facility] [place] [address] documented as of this encounter Results * NALDO, legs, multiple levels (09/15/2023 12:45 PM EDT) VB Text Report Department: Vascular Surgery Lab Patient: [id number] (SAEEDBRITTA) CPT: 45582 Referring Physician: JIMBO WALKER ?? Phone: Indications: Hx of PVD, ? progression Diabetes mellitus: no Findings: Right ?Pressure (mm Hg) ?? NALDO ??Waveform ? Brachial Artery ?128 ? Dorsalis Pedis (Ankle) Artery ?92 ?0.72 ??Bi-Triphasic ?? Posterior Tibial (Ankle) Artery ??89 ?0.70 ??[place]-Biphasic ?? Left ? Pressure (mm Hg) ?? NALDO ??Waveform ? Brachial Artery ?121 ? Dorsalis Pedis (Ankle) Artery ?98 ?0.77 ??[place]-Biphasic ?? Posterior Tibial (Ankle) Artery ??93 ?0.73 [...] PM EDT Jimbo Walker APRN VASCULAR ORDERABLES Performing Organization Address City[place] Phone Number [email or web address] * Carotid Duplex, Bilateral (09/15/2023 12:45 PM EDT) VB Text Report Department: Vascular Surgery Lab Patient: [id number] (BRITTA SAEED) CPT: 37071 Referring Physician: JIMBO WALKER ?? Phone: Indications: [...] 09/15/2023 12:4 5 PM EDT Jimbo Walker CHASER HELPER VASCULAR ORDERABLES [facility] documented in this encounter Visit Diagnoses Diagnosis PVD (peripheral vascular disease) Peripheral vascular disease, unspecified Stenosis of right carotid artery Occlusion and stenosis of carotid artery without mention of cerebral infarction documented in this encounter Care Teams Political Science Faculty Member Relationship Specialty Start Date End Date Sayra Hawk APRN [address] [place] [address] PCP - General Family Medicine 11/03/22 documented as of this encounter
--- OUTSIDE RECORDS SUMMARY | 2024-02-09 02:13 | XMS_ITS | Encounter Summary ---
Author Organization [facility] Address [facility] [place] [address] Care Team Providers Care Roll Tender Name Role Phone Nataliya Messina MD Primary Care Provider [phone] Reason for Visit * Reason Comments IV Access venofer * Treatment/Therapy Plan Authorization (Routine) - Closed Specialty Diagnoses / Procedures Referred By Keven t Referred To Contact Diagnoses Iron deficiency anemia, unspecified iron deficiency anemia type Heber Phillips MD [facility] HEMATOLOGY [place] [address] St Hem Onc Office [address] [place] [phone] Referral ID Status Reason Start Date Expiration Date Visits Re quested Visits Authorized [id number] Closed 03/11/2021 03/11/2022 99 99 Encounter Details Date Type Department Care Team (Late st Contact Info) Description 03/25/2021 1:00 PM EDT Infusion Hematology Oncology at [address] [phone] Iron deficiency anemia, unspecified iron [...] AM EDT Office Visit Hematology/Oncology at [address] [address] Heber Phillips MD [facility] DR HEMATOLOGY [place] [address] Isabella Baker APRN [facility] [place] [address] documented as of this encounter Visit Diagnoses [...] mL/hr documented in this encounter Care Teams Roll Tender Relationship Specialty Start Date End Date Nataliya Messina MD [address] [place] [address] [address] [place] [address] PCP - General 10/02/11 01/11/22 documented as of this encounter
--- OUTSIDE RECORDS SUMMARY | 2024-02-09 02:13 | XMS_ITS | Encounter Summary ---
[place] [address] Care Team Providers Care Cardiology Physician Name Role Phone Nataliya Messina MD Primary Care Provider [phone] Reason for Visit * Reason Onset Date Comments Follow-up 12/24/2021 Encounter Details Date Type Department Care Team (Late st Contact Info) Description 12/24/2021 Telephone Hematology/Oncology at [address] [phone] Aleida Knight RN Follow-up Social [...] AM EDT Office Visit Hematology/Oncology at [address] [phone] Heber Phillips MD [facility] [place] [address] Isabella Baker APRN [facility] [place] [address] documented as of this encounter Visit Diagnoses Not on filedocumented in this encounter Care Teams Cardiology Physician Relationship Specialty Start Date End Date Nataliya Messina MD [address] [place] [address] PCP - General 10/02/11 01/11/22 documented as of this encounter
--- OUTSIDE RECORDS SUMMARY | 2024-02-09 02:13 | XMS_ITS | Encounter Summary ---
Author Organization [facility] Address [facility] [place] [address] Care Team Providers Care Clinical Reimbursement Specialist Name Role Phone Nataliya Messina MD Primary Care Provider [phone] Reason for Visit * Reason Onset Date Comments Medication Refill 04/30/2021 Encounter Details Date Type Department Care Team (Late st Contact Info) Description 04/30/2021 Refill Cardiology at [address] [address] Ramandeep Choudhary MD [address] [place] [address] DR CARDIOLOGY [place], [place] [id number] Medication Refill Social History Tobacco Use Types [...] AM EDT Office Visit Hematology/Oncology at [address] [phone] Heber Phillips MD [facility] DR [place] [address] Isabella Baker APRN [facility] [place] [address] documented as of this encounter Visit Diagnoses Diagnosis Coronary artery disease involving [place]kma[place] heart without angina pectoris, unspecified vessel or lesion type documented in this encounter Care Teams Clinical Reimbursement Specialist Relationship Specialty Start Date End Date Nataliya Messina MD [address] [place] [address] [address] [facility] 1 [place] [address] PCP - General 10/02/11 01/11/22 documented as of this encounter
--- OUTSIDE RECORDS SUMMARY | 2024-02-09 02:13 | XMS_ITS | Encounter Summary ---
Author Organization Replaced By [facility] [place] [address] Care Team Providers Care Licensing Court Magistrate Name Role Phone Nataliya Messina MD Primary Care Provider Encounter Details Date Type Department Care Team (Latest Contact Info) Description 07/08/2021 8:36 AM EST - 07/08/2021 8:56 AM EST Hospital Encounter Hematology [place] [address] Discharge Disposition: Home Social History Tobacco Use [...] mg Tablet, SublingualIndications :Coronary artery disease involving [place] heart without angina pectoris, unspecified vessel or [...] AM EDT Office Visit Hematology/Oncology at [address] [phone] Heber Phillips MD [facility] HEMATOLOGY [place] [address] Isabella Baker APRN [facility] [place] [address] documented as of this encounter Visit Diagnoses Not on filedocumented in this encounter Care Teams Licensing Court Magistrate Relationship Specialty Start Date End Date Nataliya Messina MD [address] [place] [address] [address] [facility] 1 [place] [address] PCP - General 10/02/11 01/11/22 documented as of this encounter
--- OUTSIDE RECORDS SUMMARY | 2024-02-09 02:13 | XMS_ITS | Encounter Summary ---
Author Organization [facility] [place] [address] Care Team Providers Care Research Attorney Name Role Phone None Primary Care Provider Unavailabl e Reason for Referral * Diagnostic Test (Routine) - Closed Specialty Diagnoses / Procedures Referred By Contac t Referred To Contact Radiology Diagnoses Small cell lung cancer Small cell lung cancer, right upper lobe Procedures NM PET CT Skull Base to Mid-thigh Heber Phillips MD [facility] DR HEMATOLOGY [place] [address] [place] [address] Referral ID Status Reason Start Date Expiration Date V isits Requested Visits Authorized [id number] Closed Specialty Service Requested 07/15/2021 01/12/2023 1 1 Reason for Visit * Diagnostic Test (Routine) - Closed Specialty Diagnoses / Procedures Referred By Contac t Referred To Contact Radiology Diagnoses Small cell lung cancer Small cell lung cancer, right upper lobe Procedures NM PET CT Skull Base to Mid-thigh Heber Phillips MD [facility] DR HEMATOLOGY [place] [address] [place] [address] Referral ID Status Reason Start Date Expiration Date V isits Requested Visits Authorized [id number] Closed Specialty Service Requested 07/15/2021 01/12/2023 1 1 Encounter Details Date Type Department Care Team (Latest Contact Info) Description 01/12/2022 11:05 AM EDT Hospital Encounter [place] [address] Heber Phillips MD [facility] DR HEMATOLOGY [place] [address] Small cell lung cancer; Small cell lung [...] mg Tablet, SublingualIndications :Coronary artery disease involving [place] heart without angina pectoris, unspecified vessel or [...] AM EDT Office Visit Hematology/Oncology at [address] [phone] Heber Phillips MD [facility] DR HEMATOLOGY [place] [address] Isabella Baker APRN [facility] [place] [address] documented as of this encounter Procedures Procedure [...] who have questions please contact the health critical care nurse that requested your imaging first. ? Narrative 01/13/2022 11:46 AM EDT EXAMINATION: NM PET CT STANDARD SKULL BASE TO MID-THIGH CLINICAL HISTORY: Small cell lung cancer, assess treatment response Restaging of small cell lung cancer TECHNIQUE: Following IV injection of 68-ygxocs-0-deoxyglucose (FDG) a standard uptake of approximately 60 [...] lung cancer TECHNIQUE: Following IV injection of 93-rsjsmj-4-deoxyglucose (FDG) astandard uptake of approximately 60 minutes, [...] avid small ill-defined opacities (axial images 93 [id number]). Appearance is most suggestive of an interval [...] patients who have questions please contactthe health critical care nurse that requested your imaging first. Heber Phillips MD IMG PET ORDERABLES * POCT Glucose (01/12/2022 11:21 AM EDT) Glucose, POC 100 65 - 199 mg/dL [facility] Comment: Supplemental ranges: <140 mg/dL before meals <180 mg/dL all other times of the day Blood 01/12/2022 11:2 1 AM EDT 01/12/2022 11:21 AM EDT Heber Phillips MD POINT OF CARE TEST O RDERABLES [facility] [place] [place] [address] documented in this encounter Visit Diagnoses Diagnosis [...] Arm documented in this encounter Care Teams Research Attorney Relationship Specialty Start Date End Date None None PCP - General 01/12/22 11/02/22 documented as of this encounter
--- OUTSIDE RECORDS SUMMARY | 2024-02-09 02:13 | XMS_ITS | Encounter Summary ---
[place] [address] Care Team Providers Care Dining Service Inspector Name Role Phone Nataliya Messina MD Primary Care Provider [phone] Reason for Visit * Reason Onset Date Comments Other 12/25/2021 Green sputum Encounter Details Date Type Department Care Team (Late st Contact Info) Description 12/25/2021 Telephone Hematology/Oncology at [address] [phone] Aleida Knight RN Other (Green [...] AM EDT Office Visit Hematology/Oncology at [address] [phone] Heber Phillips MD [facility] DR HEMATOLOGY [place] [address] Isabella Baker APRN [facility] [place] [address] documented as of this encounter Visit Diagnoses Not on filedocumented in this encounter Care Teams Dining Service Inspector Relationship Specialty Start Date End Date Nataliya Messina MD [address] [place] [address] [address] [facility] 1 [place] [address] PCP - General 10/02/11 01/11/22 documented as of this encounter
--- OUTSIDE RECORDS SUMMARY | 2024-02-09 02:13 | XMS_ITS | Encounter Summary ---
Author Organization [facility] Address [facility] [place] [address] Care Team Providers Care Senior Game Designer Name Role Phone Nataliya Messina MD Primary Care Provider [phone] Encounter Details Date Type Department Care Team (Late st Contact Info) Description 02/21/2021 1:50 PM EDT - 02/21/2021 2:50 PM EDT [place] [address] Anshu Ewing MD [facility] [place] [address] COLONOSCOPY, POLYPECTOMY, REMOVAL LESION BY SNARE (WRVU [...] occurs, please contact your Doctor. Please call [phone] before 8pm Mon-Fri with problems, questions or concerns. If you call after 8pm or on weekends, call the Hospital at [phone] and ask to speak to the Research Spec care transitions nurse and the pole peeling machine operator helper will contact that person for you. When should you call for help? Call 249 anytime you think you may need emergency [...] any problems. Where can you learn more? [facility]- View your After Visit Summary and more online at [email or web address] If you would like to provide [...] cost to you. Content Version: 12.2 ?? [id number] [employer]. Care instructions adapted under license by [facility]. If you have questions about a medical condition or this instruction, always ask your healthcare professional. [employer] disclaims any warranty or liability for your [...] AM EDT Office Visit Hematology/Oncology at [address] [phone] Heber Phillips MD [facility] DR [place] [address] Isabella Baker APRN [facility] [place] [address] documented as of this encounter Procedures Procedure Name Priority Date/Time Associated Diagnosis Comments SPECIMEN TO PATHOLOGY Routine 02/21/2021 2:06 PM EDT SPECIMEN TO PATHOLOGY Routine 02/21/2021 2:06 PM EDT SPECIMEN TO PATHOLOGY Routine 02/21/2021 2:06 PM EDT SURGICAL PATHOLOGY REPORT Routine 02/21/2021 1:39 PM EDT Upper Gi Endoscopy, Biopsy ([id number]) 02/21/2021 1:29 PM EDT abnormal PET scan 'new small focus on FDG uptake in the cecum' KATHLEEN Colonoscopy, Remv Lesn, Snare ([id number]) 02/21/2021 1:29 PM EDT abnormal PET scan 'new small focus on FDG uptake in the cecum' KATHLEEN UPPER GI ENDOSCOPY Routine 02/21/2021 1: 09 PM EDT COLONOSCOPY Routine 02/21/2021 1:08 PM EDT documented in this encounter Results * Specimen to Pathology (02/21/2021 2:06 PM EDT) AP Specimen 02/21/2021 2:06 PM EDT 02/21/2021 2:06 PM EDT [facility] - 02/21/2021 2:06 PM EDT Specimen requisition ordered. ??Separate Pathology report to follow Anshu Ewing MD PATHOLOGY/CYTOLOGY ORDERABLES Performing Organization Address [facility] Co de Phone Number [facility] [place] [address] * Specimen to Pathology (02/21/2021 2:06 PM EDT) AP Specimen 02/21/2021 2:06 PM EDT 02/21/2021 2:06 PM EDT Narrative [facility] - 02/21/2021 2:06 PM EDT Specimen requisition ordered. ??Separate Pathology report to follow Anshu Ewing MD PATHOLOGY/CYTOLOGY ORDERABLES Performing Organization Address [facility] [place] [address] * Specimen to Pathology (02/21/2021 2:06 PM EDT) AP Specimen 02/21/2021 2:06 PM EDT 02/21/2021 2:06 PM EDT Narrative [facility] - 02/21/2021 2:06 PM EDT Specimen requisition ordered. ??Separate Pathology report to follow Anshu Ewing MD PATHOLOGY/CYTOLOGY ORDERABLES Performing Organization Address [facility] [place] [address] * Surgical Pathology Report (02/21/2021 1:39 PM EDT) Final Diagnosis [id number] ? Location: 4T; EA07; A The signing [...] MD Verified: ??02/28/2021 20:31 ??Pathologist Performed at: ??-[facility] [place] [place], [place], [place] SPECIMEN(S) SUBMITTED A - Stomach H. [...] toto ??in 1 cassette labeled B1. ??sns 02/28/2021 8:31 PM EDT [facility] GI Biopsy 02/21/2021 1:39 PM EDT 02/21/2021 1:39 PM EDT GI Biopsy 02/21/2021 1:39 PM EDT 02/21/2021 1:39 PM EDT Anshu Ewing MD PATHOLOGY/CYTOLOGY ORDERABLES [facility] [place] [address] * UPPER GI ENDOSCOPY (02/21/2021 1:09 PM EDT) UPPER GI ENDOSCOPY [facility] Endoscopy Procedure Date: 02/21/2021 1:09 PM ? Patient Name: Hieu Tillman ? Date of : 1955 ? Age: 65 ? Order #: [id number] ? Instrument Name: [id number] ? Procedure: ? Upper GI endoscopy Indications: ? Iron deficiency anemia Providers: ? Anshu Ewing MD, Florentin Martinez ? BOB Arrieta, Amie Max, ? Food Service Technician Referring MD: ?Nataliya Messina MD Medicines: ? [...] Procedure Code(s): ?? --- Professional --- ? 01228, Esophagogastroduod enoscopy, ? flexible, transoral; diagnostic, ? including collection of specimen(s) ? by brushing or washing, when ? performed (separate procedure) CPT copyright 2019 [employer]. All rights reserved. The codes documented in this report are preliminary and upon head of sales promotion review may be revised to meet current [...] PM ? Patient Name: Hieu Tillman ? N: [id number] ? Date of : 1955 ? Age: 65 ? Order #: [id number] ? Instrument Name: [id number] ? Procedure: ? Colonoscopy Indications: ? High risk colon cancer surveillance: ? Personal history of colonic polyps, ? Incidental - Abnormal PET scan of the ? GI tract Providers: ? Anshu Ewing MD, Florentin Martinez ? , BOB, Amie Max, ? Food Service Technician Referring : ?Nataliya Messina MD Medicines: ? Monitored Anesthesia [...] Procedure Code(s): ?? --- Professional --- ? 22068, Colonoscopy, flexible; with ? removal of tumor(s), polyp(s), or ? other lesion(s) by snare technique CPT copyright 2019 [employer]. All rights reserved. The codes documented in this report are preliminary and upon head of sales promotion review may be revised to meet current [...] RN) documented in this encounter Care Teams Senior Game Designer Relationship Specialty Start Date End Date Nataliya Messina MD [address] [place] [address] 1 [place] [address] PCP - General 10/02/11 01/11/22 documented as of this encounter
--- OUTSIDE RECORDS SUMMARY | 2024-02-09 02:13 | XMS_ITS | Encounter Summary ---
Author Organization [facility] [address] Care Team Providers Care Chain Hoist Operator Name Role Phone Nataliya Messina MD Primary Care Provider [phone] Encounter Details Date Type Department Care Team (Late st Contact Info) Description 04/30/2021 10:40 AM EST Office Visit Cardiology at [address] [address] Ramandeep Choudhary MD [address] [place] [address] DR CARDIOLOGY [place], [place] [id number] Coronary artery disease involving navajo coronary artery of navajo heart, unspecified whether angina present; Primary hypertension [...] Social History Narrative Lives with his in [place], [place]. 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 [...] AM EDT Office Visit Hematology/Oncology at [address] [phone] Heber Phillips MD [facility] DR [place] [address] Isabella Baker APRN [facility] [place] [address] documented as of this encounter Visit Diagnoses Diagnosis Coronary artery disease involving navajo coronary artery of navajo heart, unspecified whether angina present Primary hypertension Unspecified essential hypertension documented in this encounter Care Teams Chain Hoist Operator Relationship Specialty Start Date End Date Nataliya Messina MD [address] [place] [address] [address] [place] [address] PCP - General 10/02/11 01/11/22 documented as of this encounter
--- OUTSIDE RECORDS SUMMARY | 2024-02-09 02:13 | XMS_ITS | Encounter Summary ---
Author Organization [facility] Address [facility] [place] [address] Care Team Providers Care Curb Worker Name Role Phone None Primary Care Provider [...] AM EDT Office Visit Hematology/Oncology at [address] [address] Heber Phillips MD [facility] DR HEMATOLOGY [place] [address] Isabella Baker APRN [facility] [place] [address] documented as of this encounter Visit Diagnoses Not on filedocumented in this encounter Care Teams Curb Worker Relationship Specialty Start Date End Date None None PCP - General 01/12/22 11/02/22 documented as of this encounter
--- OUTSIDE RECORDS SUMMARY | 2024-02-09 02:13 | XMS_ITS | Encounter Summary ---
Author Organization [facility] [place] [address] Care Team Providers Care Interpretive Program Coordinator Name Role Phone None Primary Care Provider Unavailabl e Reason for Visit * Diagnostic Test (Routine) - Closed Specialty Diagnoses / Procedures Referred By Contac t Referred To Contact Radiology Diagnoses Small cell lung cancer Small cell lung cancer, right upper lobe Procedures NM PET CT Skull Base to Mid-thigh Heber Phillips MD [facility] [place] [address] [place] [address] Referral ID Status Reason Start Date Expiration Date V isits Requested Visits Authorized [id number] Closed Specialty Service Requested 07/15/2021 01/12/2023 1 1 Encounter Details Date Type Department Care Team (Latest Contact Info) Description 01/12/2022 11:06 AM EDT - 01/12/2022 11:59 PM EDT Hospital En[place] [address] Heber Phillips MD [facility] [place] [address] Discharge Disposition: Home Social History [...] mg Tablet, SublingualIndications :Coronary artery disease involving [place] heart without angina pectoris, unspecified vessel or [...] AM EDT Office Visit Hematology/Oncology at [address] [phone] Heber Phillips MD [facility] [place] [address] Isabella Baker APRN [facility] [place] [address] documented as of this encounter Procedures Procedure [...] have questions please contact the health director day care center that requested your imaging first. ? Narrative 01/13/2022 11:46 AM EDT EXAMINATION: NM PET CT STANDARD SKULL BASE TO MID-THIGH CLINICAL HISTORY: Small cell lung cancer, assess treatment response Restaging of small cell lung cancer TECHNIQUE: Following IV injection of 79-ehhfdc-4-deoxyglucose (FDG) a standard uptake of approximately 60 [...] lung cancer TECHNIQUE: Following IV injection of 75-zxpaex-7-deoxyglucose (FDG) astandard uptake of approximately 60 minutes, [...] avid small ill-defined opacities (axial images 93 [id number]). Appearance is most suggestive of an interval [...] who have questions please contactthe health director day care center that requested your imaging first. Heber Phillips MD IMG PET ORDERABLES documented in this encounter Visit Diagnoses Not on filedocumented in this encounter Care Teams Interpretive Program Coordinator Relationship Specialty Start Date End Date None None PCP - General 01/12/22 11/02/22 documented as of this encounter
--- OUTSIDE RECORDS SUMMARY | 2024-02-09 02:13 | XMS_ITS | Encounter Summary ---
Author Organization [facility] [address] Care Team Providers Care Chief Enterprise Architect Name Role Phone None Primary Care Provider Unavailabl e Reason for Referral * Diagnostic Test (Routine) - Closed Specialty Diagnoses / Procedures Referred By Contac t Referred To Contact Radiology Diagnoses Small cell lung cancer, right upper lobe Procedures NM PET CT Skull Base to Mid-thigh Heber Phillips MD [facility] [place] [address] [place] [address] Referral ID Status Reason Start Date Expiration Date V isits Requested Visits Authorized [id number] Closed Specialty Service Requested 04/21/2022 10/20/2023 1 1 Reason for Visit * Diagnostic Test (Routine) - Closed Specialty Diagnoses / Procedures Referred By Contac t Referred To Contact Radiology Diagnoses Small cell lung cancer, right upper lobe Procedures NM PET CT Skull Base to Mid-thigh Heber Phillips MD [facility] [address] [place] [address] [place] [address] Referral ID Status Reason Start Date Expiration Date V isits Requested Visits Authorized [id number] Closed Specialty Service Requested 04/21/2022 10/20/2023 1 1 Encounter Details Date Type Department Care Team (Latest Contact Info) Description 09/28/2022 11:56 AM EDT - 09/28/2022 11:59 PM EDT Hospital Encounter [place] [address] Heber Phillips MD [facility] [address] [place] [address] Small cell lung cancer, right upper lobe [...] mg Tablet, SublingualIndications :Coronary artery disease involving [place] heart without angina pectoris, unspecified vessel or [...] AM EDT Office Visit Hematology/Oncology at [address] [phone] Heber Phillips MD [facility] [place] [address] Isabella Baker APRN [facility] [place] [address] documented as of this encounter Procedures Procedure [...] who have questions please contact the health career services coordinator that requested your imaging first. ? Electronically signed by: Tino Gallardo MD, [facility] ([phone]), at 10/02/2022 2:02 PM Narrative 10/02/2022 2:02 PM EDT EXAMINATION: NM PET CT STANDARD SKULL BASE TO MID-THIGH CLINICAL HISTORY: Small cell lung cancer, assess treatment response Restaging of limited stage small cell lung cancer, status post concurrent chemoradiation 2017. TECHNIQUE: Following IV injection of 64-svqstn-8-deoxyglucose (FDG) a standard uptake of approximately 60 [...] chemoradiation 2017. TECHNIQUE: Following IV injection of 36-knqzso-2-deoxyglucose (FDG) astandard uptake of approximately 60 minutes, [...] patients who have questions please contactthe health career services coordinator that requested your imaging first. Electronically signed by: Tino Gallardo MD, [facility]([phone]), at 10/02/2022 2:02 PM Heber Phillips MD IMG PET ORDERABLES [...] Arm documented in this encounter Care Teams Chief Enterprise Architect Relationship Specialty Start Date End Date None None PCP - General 01/12/22 11/02/22 documented as of this encounter
--- OUTSIDE RECORDS SUMMARY | 2024-02-09 02:13 | XMS_ITS | Encounter Summary ---
Author Organization [facility] Address [facility] [place] [address] Care Team Providers Care Assembling Fabricator Name Role Phone Nataliya Messina MD Primary Care Provider [phone] Reason for Visit * Reason Comments IV Medication Venofer, 1st of 3 we ekly doses * Treatment/Therapy Plan Authorization (Routine) - Closed Specialty Diagnoses / Procedures Referred By Keven lozano Referred To Contact Diagnoses Iron deficiency anemia, unspecified iron deficiency anemia type Heber Phillips MD [facility] [place] [address] [facility] Hem Onc Office [address] [place] [phone] Referral ID Status Reason Start Date Expiration Date Visits Re quested Visits Authorized [id number] Closed 03/11/2021 03/11/2022 99 99 Encounter Details Date Type Department Care Team (Late st Contact Info) Description 03/18/2021 1:00 PM EDT Infusion Hematology Oncology at [address] [phone] Iron deficiency anemia, unspecified iron [...] AM EDT Office Visit Hematology/Oncology at [address] [phone] Heber Phillips MD [facility] DR H[place] [address] Isabella Baker APRN [facility] [place] [address] documented as of this encounter Visit Diagnoses [...] mL/hr documented in this encounter Care Teams Assembling Fabricator Relationship Specialty Start Date End Date Nataliya Messina MD [address] [place] [address] [address] [place] [address] PCP - General 10/02/11 01/11/22 documented as of this encounter
--- OUTSIDE RECORDS SUMMARY | 2024-02-09 02:13 | XMS_ITS | Encounter Summary ---
Author Organization [facility] Address [facility] [place] [address] Care Team Providers Care Dog Barber Name Role Phone Nataliya Messina MD Primary Care Provider [phone] Reason for Visit * Reason Comments IV Medication Venofer, 3rd of 3 sc heduled doses * Treatment/Therapy Plan Authorization (Routine) - Closed Specialty Diagnoses / Procedures Referred By Keven lozano Referred To Contact Diagnoses Iron deficiency anemia, unspecified iron deficiency anemia type eHber Phillips MD [facility] HEMATOLOGY [place] [address] [facility] Hem Onc Office [address] [place] [phone] Referral ID Status Reason Start Date Expiration Date Visits Re quested Visits Authorized [id number] Closed 03/11/2021 03/11/2022 99 99 Encounter Details Date Type Department Care Team (Late st Contact Info) Description 04/01/2021 1:00 PM EDT Infusion Hematology Oncology at [address] [phone] Iron deficiency anemia, unspecified iron [...] AM EDT Office Visit Hematology/Oncology at [address] [phone] Heber Phillips MD [facility] DR HEMATOLOGY [place] [address] Isabella Baker APRN [facility] [place] [address] documented as of this encounter Visit Diagnoses Diagnosis Iron deficiency anemia, unspecified iron deficiency anemia type documented in this encounter Administered Medications Inactive Administered Medications - up to 3 most recent administrations Medication Order MAR Action Action Date Dose Rate Site acetaminophen (Tylenol) tablet 975 mg 975 mg (rounded from 1,000 mg), Oral, ONCE, 1 dose, On Wed04/01/21 at 1315, Give prior to patient's infusion., [...] mL/hr documented in this encounter Care Teams Dog Barber Relationship Specialty Start Date End Date Nataliya Messina MD [address] [place] [address] PCP - General 10/02/11 01/11/22 documented as of this encounter
--- OUTSIDE RECORDS SUMMARY | 2024-02-09 02:13 | XMS_ITS | Encounter Summary ---
Author Organization [facility] [place] [address] Care Team Providers Care Organ Teacher Name Role Phone Nataliya Messina MD Primary Care Provider Reason for Referral * Diagnostic Test (Routine) - Closed Specialty Diagnoses / Procedures Referred By Contac t Referred To Contact Radiology Diagnoses Small cell lung cancer Small cell lung cancer, right upper lobe Procedures NM PET CT Skull Base to Mid-thigh Heber Phillips MD [facility] [address] [place] [address] [place] [address] Referral ID Status Reason Start Date Expiration Date V isits Requested Visits Authorized [id number] Closed Specialty Service Requested 03/11/2021 09/08/2022 1 1 Reason for Visit * Diagnostic Test (Routine) - Closed Specialty Diagnoses / Procedures Referred By Contac t Referred To Contact Radiology Diagnoses Small cell lung cancer Small cell lung cancer, right upper lobe Procedures NM PET CT Skull Base to Mid-thigh Heber Phillips MD [facility] [address] [place] [address] [place] [address] Referral ID Status Reason Start Date Expiration Date V isits Requested Visits Authorized [id number] Closed Specialty Service Requested 03/11/2021 09/08/2022 1 1 Encounter Details Date Type Department Care Team (Latest Contact Info) Description 07/08/2021 8:57 AM EST Hospital Encounter [place] [address] Heber Phillips MD [facility] [address] [place] [address] Small cell lung cancer; Small cell lung [...] mg Tablet, SublingualIndications :Coronary artery disease involving [place] heart without angina pectoris, unspecified vessel or [...] AM EDT Office Visit Hematology/Oncology at [address] [phone] Heber Phillips MD [facility] [address] [place] [address] Isabella Baker APRN [facility] [place] [place] [address] documented as of this encounter Procedures Procedure [...] have questions please contact the health healthcare manager that requested your imaging first. ? Electronically signed by: Tino Gallardo MD, [facility] ([phone]), at 07/08/2021 11:17 AM Narrative 07/08/2021 11:17 AM EST EXAMINATION: NM PET CT STANDARD SKULL BASE TO MID-THIGH CLINICAL HISTORY: Small cell lung cancer, assess treatment response Restaging of small cell lung cancer, status post concurrent chemoradiation in 2018. TECHNIQUE: Following IV injection of 75-ehlist-6-deoxyglucose (FDG) a standard uptake of approximately 60 [...] chemoradiationin 2018. TECHNIQUE: Following IV injection of 29-lamzig-5-deoxyglucose (FDG) astandard uptake of approximately 60 minutes, [...] who have questions please contactthe health healthcare manager that requested your imaging first. Electronically signed by: Tino Gallardo MD, [facility]([phone]), at 07/08/2021 11:17 AM Heber Phillips MD IMG PET ORDERABLES [...] Arm documented in this encounter Care Teams Organ Teacher Relationship Specialty Start Date End Date Nataliya Messina MD [address] [place] [address] 1 [place] [address] PCP - General 10/02/11 01/11/22 documented as of this encounter
--- OUTSIDE RECORDS SUMMARY | 2024-02-09 02:13 | XMS_ITS | Encounter Summary ---
Author Organization [facility] Address [facility] [place] [address] Care Team Providers Care Fine Patcher Name Role Phone None Primary Care Provider Unavailabl e Encounter Details Date Type Department Care Team (Late Contact Info) Description 04/10/2022 Ancillary Procedure [place] [phone] Porter Xiong MD [facility] [place] [place] [address] Social History Tobacco Use Types Packs/Day Years [...] AM EDT Office Visit Hematology/Oncology at [address] [phone] Heber Phillips MD [facility] [place] [address] Isabella Baker APRN [facility] [place] [address] documented as of this encounter Procedures Procedure Name Priority Date/Time Associated Diagnosis Comments FILM LIBRARY STORAGE ONLY CT CHEST Routine 04/10/2022 12:00 AM EDT documented in this encounter Results * Film Library- Storage Only CT Chest (04/10/2022 12:00 AM EDT) Narrative CHUY - 04/11/2022 8:03 AM EDT This exam is auto-finalizing. It's purpose is for storage only. Porter Xoing MD [facility] FILM LIBRARY ORD ERABLES Performing Organization Address City/State/[facility] Co de Phone Number [place], [place] documented in this encounter Visit Diagnoses Not on filedocumented in this encounter Care Teams Fine Patcher Relationship Specialty Start Date End Date None None PCP - General 01/12/22 11/02/22 documented as of this encounter
--- OUTSIDE RECORDS SUMMARY | 2024-02-09 02:13 | XMS_ITS | Encounter Summary ---
Author Organization [facility] Address [facility] [place] [address] Care Team Providers Care Machine Tester Name Role Phone None Primary Care Provider Unavailabl e Encounter Details Date Type Department Care Team (Late st Contact Info) Description 01/13/2022 1:00 PM EDT Office Visit Hematology/Oncology at [address] [phone] Heber Phillips MD [facility] DR [place] [address] Thu Saldana APRN [facility] [place] [address] Small cell lung cancer (Primary Dx); Iron [...] Subjective (01/13/22): Mr. Tillman returns to the [facility] for follow up of small cell lung cancer, anemia and discussion on restaging PET scan. Overall, Hieu feels at his baseline. No changes in shortness of breath. He had episode of nosebleed. Follows with water purifier operator. Denies any pain. No fevers or chills. Denies any issues with his bowels. No constipation, diarrhea or blood in stool. 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 He may need to see a water purifier operator again. Plan: 1. Monoferric infusion x1 2. Next visit in 3 months with CBC, CMP, Ferritin and CT chest The plan was discussed with the patient in details. All questions were answered to patient's satisfaction. documented in this encounter Plan of Treatment Upcoming Encounters Date Type Department Care Team (Late st Contact Info) Description 03/28/2024 10:00 AM EDT Office Visit Hematology/Oncology at [address] [phone] Heber Phillips MD [facility] DR [place] [address] Isabella Baker APRN [facility] [place] [address] documented as of this encounter Visit Diagnoses Diagnosis Small cell lung cancer- Primary Malignant neoplasm of bronchus and lung, unspecified site Iron deficiency anemia, unspecified iron deficiency anemia type SOB (shortness of breath) Shortness of breath documented in this encounter Care Teams Machine Tester Relationship Specialty Start Date End Date None None PCP - General 01/12/22 11/02/22 documented as of this encounter
--- OUTSIDE RECORDS SUMMARY | 2024-02-09 02:13 | XMS_ITS | Encounter Summary ---
Author Organization [facility] Address [facility] [place] [address] Care Team Providers Care Aircraft Engine Mechanic Overhaul Name Role Phone None Primary Care Provider Unavailabl e Reason for Referral * Diagnostic Test (Routine) - Closed Specialty Diagnoses / Procedures Referred By Contac t Referred To Contact Radiology Diagnoses Small cell lung cancer, right upper lobe Procedures NM PET CT Skull Base to Mid-thigh Heber Phillips MD [facility] [address] [place] [address] [place] [address] Referral ID Status Reason Start Date Expiration Date V isits Requested Visits Authorized [id number] Closed Specialty Service Requested 10/13/2022 04/14/2024 1 1 Encounter Details Date Type Department Care Team (Late st Contact Info) Description 10/13/2022 2:30 PM EDT Office Visit Hematology/Oncology at [address] [phone] Heber Phillips MD [facility] [place] [address] Mary Cleaning, RN Small cell lung cancer, [...] Subjective (10/13/21): Mr. Tillman returns to the [facility] for follow up of small cell lung cancer, anemia and discussion on restaging PET scan. Complains on shortness of breath with minimal exertion. Otherwise, he feels at his baseline. Denies any new pain. .Follows with local cushion spring assembler. Denies any pain. No fevers or chills. Denies any issues with his bowels. No constipation, diarrheaor blood in stool. PMH: No interval changes since last visit Admitted 05/16/2021 for COPD exacerbation Colonoscopy and upper endoscopy on February 21, 2021 [place] in 2014 status post 2 stents placement, [...] radiating to right leg ??? [place] about 6 [place] ago @ [facility]-has stents ??? 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 His [...] PCP. He may need to see a cushion spring assembler again. Plan: 1. Monoferric 1 g today [...] AM EDT Office Visit Hematology/Oncology at [address] [phone] Heber Phillips MD [facility] [address] [place] [address] Isabella Baker APRN [facility] [place] [address] documented as of this encounter Results * NM PET CT Skull Base to Mid-thigh (10/11/2023 11:20 AM EDT) [employer] WORKSTATION ID [id number] RAD Anatomical Region Laterality Modality Positron Emissio [...] who have questions please contact the health manager primary care that requested your imaging first. ? Electronically signed by: Vamsi Perez MD, [facility] ([phone]), at 10/12/2023 9:31 AM Narrative 10/12/2023 9:31 AM EDT EXAMINATION: NM PET CT STANDARD SKULL BASE TO MID-THIGH CLINICAL HISTORY: Small cell lung cancer, assess treatment response Restaging of small cell carcinoma of lung completed concurrent chemoradiation 2018 C34.11, Malignant neoplasm of upper lobe, right bronchus or lung TECHNIQUE: Following IV injection of 14-djmgia-4-deoxyglucose (FDG) a standard uptake of approximately 60 [...] or lung TECHNIQUE: Following IV injection of 48-ottddb-5-deoxyglucose (FDG) astandard uptake of approximately 60 minutes, [...] patients who have questions please contactthe health manager primary care that requested your imaging first. Heber Phillips MD IMG PET ORDERABLES * Ferritin (10/11/2023 11:19 AM EDT) Pathologist [facility] Ferritin 31 31 - 409 ng/mL [facility] Comment: Please note that as of 05/26/2023, the reference intervals for Ferritin have been updated. Blood 10/11/2023 11:1 9 AM EDT 10/11/2023 11:25 AM EDT Narrative Resulting Agency Comment Spec In Lab Heber Phillips MD CHEMISTRY ORDERABLES [facility] [place] [address] * (ABNORMAL) Comprehensive metabolic panel (non-fasting) (10/11/2023 11:19 AM EDT) Pathologist [facility] Glucose 107 65 - 199 mg/dL [facility] Comment:Diabetes: >=200 mg/d L plus symptoms Blood Urea Nitrogen 24(H) 10 - 20 mg/dL [facility] Creatinine 1.17 0.80 - 1.50 mg/dL [facility] Sodium 139 135 - 145 mmol/L [facility] Potassium 4.8 3.5 - 5.0 mmol/L [facility] Comment: Please note: ??Patients with WBC >100,000 may have falsely elevated Potassium levels. ??For accurate Potassium quantification in these patients send serum separator tube (gold top) for subsequent determinations. ??Contact the Clinical Chemistry Laboratory if there are any questions. Chloride 104 98 - 107 mmol/L [facility] Carbon Dioxide 28 22 - 31 mmol/L [facility] Anion Gap 7 5 - 15 mmol/L [facility] Calcium 9.5 8.5 - 10.5 mg/dL [facility] Protein, Total 7.3 6.1 - 8.0 g/dL [facility] Albumin 4.3 3.2 - 5.2 g/dL [facility] Aspartate Aminotransferase 19 0 - 39 unit/L [facility] Alanine Aminotransferase 19 0 - 55 unit/L [facility] Alkaline Phosphatase 92 40 - 130 unit/L [facility] Bilirubin, Total 0.3 0.2 - 1.3 mg/dL [facility] Est Glomerular Filtration Rate 67 >=60 mL/min/1. 73 m?? [facility] Comment: This patient's estimated GFR [...] MD CHEMISTRY ORDERABLES [facility] [place] [address] documented in this encounter Visit Diagnoses Diagnosis Small cell lung cancer, right upper lobe Iron deficiency anemia, unspecified iron deficiency anemia type Small cell lung cancer, right upper lobe documented in this encounter Care Teams Aircraft Engine Mechanic Overhaul Relationship Specialty Start Date End Date None None PCP - General 01/12/22 11/02/22 documented as of this encounter
--- OUTSIDE RECORDS SUMMARY | 2024-02-09 02:13 | XMS_ITS | Encounter Summary ---
[place] [address] Care Team Providers Care Medical Affairs Manager Name Role Phone Nataliya Messina MD Primary Care Provider [phone] Encounter Details Date Type Department Care Team (Late st Contact Info) Description 12/02/2021 Telephone Hematology/Oncology at [address] [phone] Gina Torres Social History Tobacco Use Types Packs/Day Years [...] AM EDT Office Visit Hematology/Oncology at [address] [phone] [facility] DR HEMATOLOGY [place] [address] [facility] [place] [address] documented as of this encounter Visit Diagnoses Not on filedocumented in this encounter Care Teams Medical Affairs Manager Relationship Specialty Start Date End Date Nataliya Messina MD [address] [facility] [address] [facility] [address] [place] [address] PCP - General 10/02/11 01/11/22 documented as of this encounter
--- OUTSIDE RECORDS SUMMARY | 2024-02-09 02:13 | XMS_ITS | Encounter Summary ---
Author Organization [facility] [place] [address] Care Team Providers Care Coke Worker Name Role Phone Nataliya Messina MD Primary Care Provider [phone] [phone] Encounter Details Date Type Department Care Team (Late st Contact Info) Description 02/21/2021 1:29 PM EDT Anesthesia [place] [phone] Ami Sanchez MD [facility] [place] [address] Vianca Contreras CRNA [facility] [place] [address] Anesthesia Record Procedure Summary Procedure Name Responsible Anesthesiologist Anesthesia Start Time Anesthesia Stop Time COLONOSCOPY, POLYPECTOMY, REMOVAL LESION BY SNARE (WRVU 4.57) (Trunk) Aim Sanchez MD 02/21/21 1329 02/21/21 1416 Events [...] vena cava; Ami Rivera APRN; Lot # [id number], Ref #[id number] 01/26/18 0908 by Arabella Chacon RN Incision 10/20/16; 1352; neck (carotid); 02/16/22 (LDA cleanup utility RA#[id number]); 1715 (LDA cleanup utility RA#[id number]) 10/20/16 1352 by Sandy Alvarez RN 02/16/22 1715 by Zeinab Govea Incision [...] cephalic vein (lateral side of arm), right; [id number] catheter system; Anatomical Landmarks; 20 gauge; distraction, [...] Procedure Summary Date: 02/21/21 Room / Location: [facility] ENDO 2 / [facility] ENDOSCOPY Anesthesia Start: 1329 Anesthesia Stop: 1416 Procedures: COLONOSCOPY, POLYPECTOMY, REMOVAL LESION BY SNARE (WRVU 4.67) (N/A Trunk) EGD WITH BIOPSY (WRVU 2.49) (N/A Trunk) Diagnosis: (abnormal PET scan 'new small focus on FDG uptake in the cecum') (KATHLEEN) Surgeons: Anshu Ewing MD Responsible Provider: Ami Sanchez MD Anesthesia Type: MAC ASA Status: 3 All Anesthesia Providers: Anesthesiologist: Ami Sanchez MD CHEMICAL STRENGTH TESTER: Vianca Contreras CRNA Vitals Value Taken Time BP 122/64 02/21/21 1430 Temp Pulse Resp 18 02/21/21 1430 SpO2 97 % 02/21/21 1430 Pain Level 0 02/21/21 1430 Patient Location: PACU/[facility] Level of Consciousness: Awake and Alert Pain [...] radiating to right leg ??? [place] [facility] [place] PVD (peripheral [...] ANGIOPLASTY WITH STENT PLACEMENT ? ? PRO [facility] EBUS GUIDED SAMPL 3/> NODE STATION/STRUX N/A 01/05/2018 BRONCH, W ENDOBRONCHIAL ULTRASOUND (EBUS) GUIDED SAMPLING, 3+ NODES (WRVU 5.21) performed by Kingsley Ortiz MD at [facility] MAIN OR ??? PRO THROMBOENDARTECTMY NECK, NECK INCIS Right 10/20/2016 @ENDARTERECTOMY, CAROTID, VERTEBRAL,SUBCLAVIAN W\WO PATCH GRAFT (WRVU 21.16) performed by Omero Wills MD at [facility] MAIN OR Social History Tobacco Use [...] Pt has a PMH of CAD s/p MA in 2013, HTN, HLD, COPD, PVD, and [...] risks discussed with patient. Plan discussed with CHEMICAL STRENGTH TESTER. Pre-Anesthesia Evaluation for: Hieu Tillman a 65 [...] radiating to right leg ??? [place] [facility] [place]?? PVD (peripheral [...] ANGIOPLASTY WITH STENT PLACEMENT ? ? PRO [facility] EBUS GUIDED SAMPL 3/> NODE STATION/STRUX N/A 01/05/2018 BRONCH, W ENDOBRONCHIAL ULTRASOUND (EBUS) GUIDED SAMPLING, 3+ NODES (WRVU 5.21) performed by Kingslye Ortiz MD at [facility] MAIN OR ??? PRO THROMBOENDARTECTMY NECK, NECK INCIS Right 10/20/2016 @ENDARTERECTOMY, CAROTID, VERTEBRAL,SUBCLAVIAN W\WO PATCH GRAFT (WRVU 21.16) performed by Omero Wills MD at [facility] MAIN OR Social History Tobacco Use [...] y.o. male with PMHx of CAD s/p MA in 2013, HTN, HLD, COPD, PVD, and stroke scheduled for bronch and EBUS Medical History: CAD s/p MA in 2013, HTN, HLD, COPD, PVD, and [...] 62yo M with h/o COPD, CAD s/p MA 2013 and PTCA to LCx x2, HTN, [...] AM EDT Office Visit Hematology/Oncology at [address] [phone] Heber Phillips MD [facility] [address] [place] [address] Isabella Baker APRN [facility] [place] [address] documented as of this encounter Visit Diagnoses [...] mL/hr documented in this encounter Care Teams Coke Worker Relationship Specialty Start Date End Date Nataliya Messina MD [address] [place] [address] PCP - General 10/02/11 01/11/22 documented as of this encounter
--- OUTSIDE RECORDS SUMMARY | 2024-02-09 02:13 | XMS_ITS | Encounter Summary ---
[place] [address] Care Team Providers Care Lead Programmer Name Role Phone Nataliya Messina MD Primary Care Provider [phone] Reason for Visit * Reason Onset Date Comments Follow-up 12/25/2021 Pet no mri Encounter Details Date Type Department Care Team (Late Contact Info) Description 12/25/2021 Telephone Hematology/Oncology at [address] [phone] Aleida Knight RN Follow-up (Pet [...] EDT Pt called back on new number [phone],. He does not want to do MRI, he will do pet and have blood work at [facility]. We will see him with appointment in . when those are complete. Pt agrees with plan. documented in this encounter Plan of Treatment Upcoming Encounters Date Type Department Care Team (Late Contact Info) Description 03/28/2024 10:00 AM EDT Office Visit Hematology/Oncology at [address] [phone] Heber Phillips MD [facility] [place] [address] Isabella Baker APRN [facility] [place] [address] documented as of this encounter Visit Diagnoses Not on filedocumented in this encounter Care Teams Lead Programmer Relationship Specialty Start Date End Date Nataliya Messina MD [address] [place] [address] PCP - General 10/02/11 01/11/22 documented as of this encounter
--- OUTSIDE RECORDS SUMMARY | 2024-02-09 02:13 | XMS_ITS | Encounter Summary ---
Author Organization [facility] Address [facility] [place] [address] Care Team Providers Care Cattle Rancher Name Role Phone None Primary Care Provider Unavailabl e Reason for Referral * Diagnostic Test (Routine) - Closed Specialty Diagnoses / Procedures Referred By Contac t Referred To Contact Radiology Diagnoses Small cell lung cancer, right upper lobe Procedures NM PET CT Skull Base to Mid-thigh Heber Phillips MD [facility] DR HEMAT[place]Y [place] [address] [facility] [place] [address] Referral ID Status Reason Start Date Expiration Date V isits Requested Visits Authorized [id number] Closed Specialty Service Requested 04/21/2022 10/20/2023 1 1 Encounter Details Date Type Department Care Team (Late st Contact Info) Description 04/21/2022 2:30 PM EDT Office Visit Hematology/Oncology at [address] [phone] Heber Phillips MD [facility] HEMATOLOG[place] [address] Mary Cleaning RN Small cell [...] Subjective (04/21/22): Mr. Tillman returns to the [facility] for follow up of small cell lung cancer, anemia and discussion on restaging CT of chest . Overall, Hieu feels at his baseline. No changes in shortness of breath.Follows with local clinical recruiter. Denies any pain. No fevers or chills.Denies any issues with his bowels. No constipation, diarrhea or blood in stool. PMH: No interval changes since last visit Admitted 05/16/2021 for COPD exacerbation Colonoscopy and upper endoscopy on February 21, 2021 LA in 2013 status post 2 stents placement, [...] radiating to right leg ??? Myocardial infarction [place] about [place] ago [place] [facility] [place] ??? 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 His [...] PCP. He may need to see a clinical recruiter again. Plan: 1. Second reading on CT scan of chest 2. CBC, CMP, ferritin, PET scan all at in 6 months 3. Next visit in 1 week after PET scan with Monoferric infusion at [facility] The plan was discussed with the patient in details. All questions were answered to patient's satisfaction. documented in this encounter Plan of Treatment Upcoming Encounters Date Type Department Care Team (Late Contact Info) Description 03/28/2024 10:00 AM EDT Office Visit Hematology/Oncology at [address] [phone] Heber Phillips MD [facility] DR HEMATOLOGY [place] [address] Isabella Baker APRN [facility] [place] [address] documented as of this encounter Results * [...] who have questions please contact the health pet caretaker that requested your imaging first. ? Narrative 10/02/2022 2:02 PM EDT EXAMINATION: NM PET CT STANDARD SKULL BASE TO MID-THIGH CLINICAL HISTORY: Small cell lung cancer, assess treatment response Restaging of limited stage small cell lung cancer, status post concurrent chemoradiation 2017. TECHNIQUE: Following IV injection of 43-vldrka-1-deoxyglucose (FDG) a standard uptake of approximately 60 [...] chemoradiation 2017. TECHNIQUE: Following IV injection of 71-phxfln-9-deoxyglucose (FDG) astandard uptake of approximately 60 minutes, [...] patients who have questions please contactthe health pet caretaker that requested your imaging first. Heber Phillips [...] who have questions please contact the health pet caretaker that requested your imaging first. ? Narrative 04/22/2022 9:48 AM EDT EXAMINATION: REQUEST FOR 2ND READ CT CHEST CLINICAL HISTORY: Follow-up on the findings on the recent PET scan: Interval appearance of ill-defined mild to moderately FDG avid nodular; Sending Institution [facility]; Date of exam [id number]; I believe a [...] lobe documented in this encounter Care Teams Cattle Rancher Relationship Specialty Start Date End Date None None PCP - General 01/12/22 11/02/22 documented as of this encounter
--- OUTSIDE RECORDS SUMMARY | 2024-02-09 02:13 | XMS_ITS | Encounter Summary ---
Author Organization [facility] [address] Care Team Providers Care Field Service Tech Name Role Phone Nataliya Messina MD Primary Care Provider Encounter Details Date Type Department Care Team (Latest Contact Info) Description 07/08/2021 8:45 AM EST Laboratory Appointment Lab [address] [place] [address] Iron deficiency anemia, unspecified iron [...] AM EDT Office Visit Hematology/Oncology at [address] [phone] Heber Phillips MD [facility] [place] [address] Isabella Baker APRN [facility] [place] [address] documented as of this encounter Procedures Procedure [...] right upper lobe COMPREHENSIVE METABOLIC PANEL Routine 07/08/2021 8:53 AM EST Small cell lung cancer Small cell lung cancer, right upper lobe documented in this encounter Results * (ABNORMAL) Differential, Automated (07/08/2021 8:53 AM EST) Neutrophil % 78.6 % [facility] Neutrophil Absolute 6.47(H) 1.70 - 6.10 x10(3)/mc L [facility] Lymph % 5.6 % [facility] Lymphocytes Abs 0.5(L) 0.9 - 3.2 x10(3)/mc L [facility] Monocyte % 12.9 % [facility] Monocyte Abs 1.1(H) 0.3 - 0.9 x10(3)/mc L [facility] Eos % 1.1 % [facility] Eosinophils Abs 0.1 0.0 - 0.4 x10(3)/mc L [facility] Basophil % 0.6 % [facility] Baso Absolute 0.0 0.0 - 0.1 x10(3)/mc L [facility] Immature Gran % 1.20 % [facility] Comment: Immature granulocytes(IG's)percentage and absolute count will include metamyelocytes, myelocytes, and promyelocytes. Blood smears from CBCs yielding IG's will be scanned manually for concordance. If this scan disagrees with the automated IG or if promyelocytes are noted, a manual differential will be performed. Immature Gran Absolute 0.10(H) 0.00 - 0.04 x10(3)/mc L [facility] Blood 07/08/2021 8:53 AM EST 07/08/2021 9:02 AM EST Narrative Resulting Agency Comment Spec In Lab Heber Phillips MD HEMATOLOGY ORDERABLE S [facility] [place] [address] * (ABNORMAL) Hemogram (07/08/2021 8:53 AM EST) White Blood Cell 8.2 4.0 - 9.5 x10(3)/ L [facility] Red Blood Cell 4.57(L) 4.58 - 5.54 x10(6)/mc L [facility] Hemoglobin 13.0(L) 13.7 - 16.5 g/dL [facility] Hematocrit 38.8(L) 40.5 - 48.5 % [facility] Mean Cell Volume 84.9 82.9 - 93.1 fL [facility] Mean Cell Hemoglobin 28.4 27.5 - 32.1 pg [facility] Mean Cell Hemoglobin Concentration 33.5 32.0 - 35.7 g/dL [facility] Platelet 332 145 - 357 x10(3)/ L [facility] RDW Standard Deviation 56.0(H) 36.0 - 45.0 fL [facility] RDW coefficient of variation 18.0(H) 11.4 - 13.8 % [facility] Mean Platelet Volume 8.8 7.6 - 12.9 fL [facility] NRBC% auto 0.0 % [facility] NRBC Absolute 0.000 0.000 - 0.000 x10(3)/mc L [facility] Blood 07/08/2021 8:53 AM EST 07/08/2021 9:02 AM EST Narrative Resulting Agency Comment Spec In Lab Heber Phillips MD HEMATOLOGY ORDERABLE S Performing Organization Address City/State/[facility] Co de Phone Number [facility] [place] [address] * (ABNORMAL) Comprehensive metabolic panel (non-fasting) (07/08/2021 8:53 AM EST) Glucose 112 65 - 199 mg/dL [facility] Comment:Diabetes: >=200 mg/d L plus symptoms Blood Urea Nitrogen 20 10 - 20 mg/dL [facility] Creatinine 0.93 0.80 - 1.50 mg/dL [facility] Sodium 133(L) 135 - 145 mmol/L [facility] Potassium 4.3 3.5 - 5.0 mmol/L [facility] Comment: Please note: ??Patients with WBC >100,000 may have falsely elevated Potassium levels. ??For accurate Potassium quantification in these patients send serum separator tube (gold top) for subsequent determinations. ??Contact the Clinical Chemistry Laboratory if there are any questions. Chloride 96(L) 98 - 107 mmol/L [facility] Carbon Dioxide 22 22 - 31 mmol/L [facility] Anion Gap 15 5 - 15 mmol/L [facility] Calcium 9.7 8.5 - 10.5 mg/dL [facility] Protein, Total 6.9 6.1 - 8.0 g/dL [facility] Albumin 4.5 3.2 - 5.2 g/dL [facility] Aspartate Aminotransferase 18 0 - 39 unit/L [facility] Alanine Aminotransferase 26 0 - 55 unit/L [facility] Alkaline Phosphatase 100 40 - 130 unit/L [facility] Bilirubin, Total 0.5 0.2 - 1.3 mg/dL [facility] Est Glomerular Filtration Rate 85 >=60 mL/min/1. 73 m?? [facility] Comment: This patient? s estimated [...] Phillips MD CHEMISTRY ORDERABLES Performing Organization Address City/[facility]/ZIP Co de Phone Number [facility] [place] [address] * Ferritin (07/08/2021 8:53 AM EST) [facility] Signature Ferritin 126 30 - 400 ng/mL [facility] Comment: Pediatric reference ranges not verified at [facility], interpret with caution. Reference ranges for females greater than 50 years of age approach values for men, i.e., 30-400 ng/mL. Blood 07/08/2021 8:53 AM EST 07/08/2021 9:02 AM EST Narrative Resulting Agency Comment Spec In Lab Heber Phillips MD CHEMISTRY ORDERABLES Performing Organization Address City/[facility]/ZIP Co de Phone Number [facility] [place] [address] documented in this encounter Visit Diagnoses Diagnosis Iron deficiency anemia, unspecified iron deficiency anemia type Small cell lung cancer Malignant neoplasm of bronchus and lung, unspecified site Small cell lung cancer, right upper lobe documented in this encounter Care Teams Field Service Tech Relationship Specialty Start Date End Date Nataliya Messina MD [address] [facility] [address] [place] [address] PCP - General 10/02/11 01/11/22 documented as of this encounter
--- OUTSIDE RECORDS SUMMARY | 2024-02-09 02:13 | XMS_ITS | Encounter Summary ---
Author Organization Formerly [facility] Address [facility] [place] [address] Care Team Providers Care Newspaper Clipper Name Role Phone None Primary Care Provider [...] AM EDT Office Visit Hematology/Oncology at [address] [phone] Heber Phillips MD [facility] [address] HEMATOLOGY [place] [address] Isabella Baker APRN [facility] [place] [address] documented as of this encounter Visit Diagnoses Not on filedocumented in this encounter Care Teams Newspaper Clipper Relationship Specialty Start Date End Date None None PCP - General 01/12/22 11/02/22 documented as of this encounter
--- OUTSIDE RECORDS SUMMARY | 2024-02-09 02:13 | XMS_ITS | Encounter Summary ---
Author Organization Formerly [facility], Later [facility] [place] [address] Care Team Providers Care Churner Name Role Phone Nataliya Messina MD Primary Care Provider [phone] Reason for Referral * Diagnostic Test (Routine) - Closed Specialty Diagnoses / Procedures Referred By Contac t Referred To Contact Radiology Diagnoses Small cell lung cancer Small cell lung cancer, right upper lobe Procedures NM PET CT Skull Base to Mid-thigh Heber Phillips MD [facility] [address] [place] [address] [place] [address] Referral ID Status Reason Start Date Expiration Date V isits Requested Visits Authorized [id number] Closed Specialty Service Requested 07/15/2021 01/12/2023 1 1 Encounter Details Date Type Department Care Team (Late st Contact Info) Description 07/15/2021 1:30 PM EST Office Visit Hematology/Oncology at [address] [phone] Heber Phillips MD [facility] [address] [place] [address] Mary Cleaning RN Small cell [...] Subjective (07/15/21): Mr. Saeed returns to the [facility] for follow up of small cell lung cancer and anemia. He was admitted to [facility] on May 16 of last year with COPD exacerbation. Follows with staffing coordinator. No changes in dyspnea. Denies any pain. No fevers or chills. Denies any issues with his bowels. No constipation, diarrhea or blood in stool. PMH: Admitted 05/16/2021 for COPD exacerbation Colonoscopy and upper endoscopy on February 21, 2021 [place] in 2013 status post 2 stents placement, [...] radiating to right leg ??? Myocardial infarction [place] about 6 years ago @ [facility]-has stents ??? 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 His [...] PCP. He may need to see a staffing coordinator again. Plan: 1. Observation 2. Next visit [...] AM EDT Office Visit Hematology/Oncology at [address] [phone] Heber Phillips MD [facility] [address] [place] [address] Isabella Baker APRN [facility] [place] [address] documented as of this encounter Results * [...] questions please contact the health home care physical therapist that requested your imaging first. ? Narrative 01/13/2022 11:46 AM EDT EXAMINATION: NM PET CT STANDARD SKULL BASE TO MID-THIGH CLINICAL HISTORY: Small cell lung cancer, assess treatment response Restaging of small cell lung cancer TECHNIQUE: Following IV injection of 57-dwtkfe-0-deoxyglucose (FDG) a standard uptake of approximately 60 [...] lung cancer TECHNIQUE: Following IV injection of 56-bqyvse-5-deoxyglucose (FDG) astandard uptake of approximately 60 minutes, a noncontrast CT scan followed by aPET scan were acquired from the base of the skull to mid thighs. The noncontrast CTwas used for anatomic localization and photon attenuation correction of thePET scan. Blood glucose level: 100 (mg/dL) FDG dose: 11.1 mCi COMPARISON: PET/CT 07/08/2021, , 10/14/2018 FINDINGS: HEAD/NECK: Unchanged subcentimeter FDG avid right level 2 lymph node, consistent witha benign reactive node. (axial image 16). No significant adenopathy. CHEST: * New approximately 2.5 cm ill-defined mild to moderately FDG avidnodular opacity in the inferior left upper lobe (axial image 102) and anterioradjacent mildly FDG avid small ill-defined opacities (axial images 93 [id number]). Appearance is most suggestive of an interval [...] have questions please contactthe health home care physical therapist that requested your imaging first. Heber Phillips MD IMG PET ORDERABLES * (ABNORMAL) Ferritin (01/12/2022 10:53 AM EDT) [facility] Ferritin 26(L) 30 - 400 ng/mL [facility] Comment: Pediatric reference ranges not verified at [facility], interpret with caution. Reference ranges for females greater than 50 years of age approach values for men, i.e., 30-400 ng/mL. Blood 01/12/2022 10:5 3 AM EDT 01/12/2022 11:11 AM EDT Narrative Resulting Agency Comment Spec In Lab Heber Phillips MD CHEMISTRY ORDERABLES [facility] [place] [address] * Comprehensive metabolic panel (non-fasting) (01/12/2022 10:53 AM EDT) Glucose 105 65 - 199 mg/dL [facility] Comment:Diabetes: >=200 mg/d L plus symptoms Blood Urea Nitrogen 18 10 - 20 mg/dL [facility] Creatinine 1.18 0.80 - 1.50 mg/dL [facility] Sodium 139 135 - 145 mmol/L [facility] Potassium 4.4 3.5 - 5.0 mmol/L [facility] Comment: Please note: ??Patients with WBC >100,000 may have falsely elevated Potassium levels. ??For accurate Potassium quantification in these patients send serum separator tube (gold top) for subsequent determinations. ??Contact the Clinical Chemistry Laboratory if there are any questions. Chloride 101 98 - 107 mmol/L [facility] Carbon Dioxide 28 22 - 31 mmol/L [facility] Anion Gap 10 5 - 15 mmol/L [facility] Calcium 10.1 8.5 - 10.5 mg/dL [facility] Protein, Total 7.2 6.1 - 8.0 g/dL [facility] Albumin 4.7 3.2 - 5.2 g/dL [facility] Aspartate Aminotransferase 17 0 - 39 unit/L [facility] Alanine Aminotransferase 14 0 - 55 unit/L [facility] Alkaline Phosphatase 99 40 - 130 unit/L [facility] Bilirubin, Total 0.4 0.2 - 1.3 mg/dL [facility] Est Glomerular Filtration Rate 68 >=60 mL/min/1. 73 m?? [facility] [...] In Lab Heber Phillips MD CHEMISTRY ORDERABLES [facility] [place] [id number] documented in this encounter Visit Diagnoses Diagnosis [...] lobe documented in this encounter Care Teams Churner Relationship Specialty Start Date End Date Nataliya Messina MD [address] [place] [address] PCP - General 10/02/11 01/11/22 documented as of this encounter
--- OUTSIDE RECORDS SUMMARY | 2024-02-09 02:13 | XMS_ITS | Encounter Summary ---
Author Organization [facility] [place] [address] Care Team Providers Care Producer Assistant Name Role Phone None Primary Care Provider Unavailabl e Reason for Visit * Diagnostic Test (Routine) - Closed Specialty Diagnoses / Procedures Referred By Contac t Referred To Contact Radiology Diagnoses Small cell lung cancer, right upper lobe Procedures NM PET CT Skull Base to Mid-thigh Heber Phillips MD [facility] [address] [place] [address] [facility] [place] [address] Referral ID Status Reason Start Date Expiration Date V isits Requested Visits Authorized [id number] Closed Specialty Service Requested 04/21/2022 10/20/2023 1 1 Encounter Details Date Type Department Care Team (Latest Contact Info) Description 09/28/2022 11:56 AM EDT - 09/28/2022 11:59 PM EDT Hospital Encounter [place] [address] Heber Phillips MD [facility] [address] [place] [address] Discharge Disposition: Home Social History [...] mg Tablet, SublingualIndications :Coronary artery disease involving [place] heart without angina pectoris, unspecified vessel or [...] AM EDT Office Visit Hematology/Oncology at [address] [phone] Heber Phillips MD [facility] [address] [place] [address] Isabella Baker APRN [facility] [place] [place] [address] documented as of this encounter Procedures Procedure Name Priority Date/Time Associated Diagnosis Comments NM PET CT SKULL BASE TO MID-THIGH ([facility]) Routine 09/28/2022 1:26 PM EDT Small cell lung cancer, right upper lobe POCT GLUCOSE Routine 09/28/2022 12:04 PM EDT documented in this encounter Results * POCT Glucose (09/28/2022 12:04 PM EDT) Glucose, POC 88 65 - 199 mg/dL [facility] Comment: Supplemental ranges: <140 mg/dL before meals <180 mg/dL all other times of the day Blood 09/28/2022 12:0 4 PM EDT 09/28/2022 12:04 PM EDT Heber Phillips MD POINT OF CARE TEST O RDERABLES [facility] [place] [address] documented in this encounter Visit Diagnoses Not on filedocumented in this encounter Care Teams Producer Assistant Relationship Specialty Start Date End Date None None PCP - General 01/12/22 11/02/22 documented as of this encounter
--- OUTSIDE RECORDS SUMMARY | 2024-02-09 02:13 | XMS_ITS | Encounter Summary ---
Author Organization [facility] [place] [address] Care Team Providers Care Scada Operator Name Role Phone Nataliya Messina MD Primary Care Provider [phone] Encounter Details Date Type Department Care Team (Late st Contact Info) Description 09/22/2021 Telephone Cardiology at [address] [phone] Zita Brennan Social History Tobacco Use Types [...] they received the ABSORB stent. Certified mail #[phone] documented in this encounter Plan of Treatment Upcoming Encounters Date Type Department Care Team (Late st Contact Info) Description 03/28/2024 10:00 AM EDT Office Visit Hematology/Oncology at [address] [phone] Heber Phillips MD [facility] [address] [place] [address] Isabella Baker APRN [facility] [place] [address] documented as of this encounter Visit Diagnoses Not on filedocumented in this encounter Care Teams Scada Operator Relationship Specialty Start Date End Date Nataliya Messina MD [address] [place] [address] PCP - General 10/02/11 01/11/22 documented as of this encounter
--- OUTSIDE RECORDS SUMMARY | 2024-02-09 02:13 | XMS_ITS | Encounter Summary ---
Author Organization Formerly [facility] [place] [address] Care Team Providers Care Hasher Operator Name Role Phone Nataliya Messina MD Primary Care Provider [phone] Reason for Referral * Diagnostic Test (Routine) - Closed Specialty Diagnoses / Procedures Referred By Contac t Referred To Contact Radiology Diagnoses Small cell lung cancer Small cell lung cancer, right upper lobe Procedures NM PET CT Skull Base to Mid-thigh Heber Phillips MD [facility] [place] [address] [place] [address] Referral ID Status Reason Start Date Expiration Date V isits Requested Visits Authorized [id number] Closed Specialty Service Requested 03/11/2021 09/08/2022 1 1 Encounter Details Date Type Department Care Team (Late st Contact Info) Description 03/11/2021 10:00 AM EDT Office Visit Hematology/Oncology at [address] [phone] Heber Phillips MD [facility] [place] [address] Mary Cleaning RN Small cell lung cancer (Primary Dx); [...] Subjective (03/11/21): Mr. Tillman returns to the [facility] for follow up of small cell lungcancer [...] and upper endoscopy on February 21, 2021 [place] in 2013 status post 2 stents placement, [...] radiating to right leg ??? Myocardial infarction [place] about 6 years ago @ [facility]-has stents ??? 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 His [...] PCP. He may need to see a piping drafter again. Plan: 1. Venofer 300 mg weekly [...] AM EDT Office Visit Hematology/Oncology at [address] [phone] Heber Phillips MD [facility] [place] [address] Isabella Baker APRN [facility] [place] [place] [address] documented as of this encounter Results * [...] who have questions please contact the health health care attorney that requested your imaging first. ? Narrative 07/08/2021 11:17 AM EST EXAMINATION: NM PET CT STANDARD SKULL BASE TO MID-THIGH CLINICAL HISTORY: Small cell lung cancer, assess treatment response Restaging of small cell lung cancer, status post concurrent chemoradiation in 2018. TECHNIQUE: Following IV injection of 92-yjzwkg-1-deoxyglucose (FDG) a standard uptake of approximately 60 [...] chemoradiationin 2018. TECHNIQUE: Following IV injection of 95-cmycbh-2-deoxyglucose (FDG) astandard uptake of approximately 60 minutes, [...] patients who have questions please contactthe health health care attorney that requested your imaging first. Heber Phillips MD IMG PET ORDERABLES * Ferritin (07/08/2021 8:53 AM EST) Ferritin 126 30 - 400 ng/mL [facility] Comment: Pediatric reference ranges not verified at [facility], interpret with caution. Reference ranges for females greater than 50 years of age approach values for men, i.e., 30-400 ng/mL. Blood 07/08/2021 8:53 AM EST 07/08/2021 9:02 AM EST Narrative Resulting Agency Comment Spec In Lab Heber Phillips MD CHEMISTRY ORDERABLES [facility] [place] [address] * (ABNORMAL) Comprehensive metabolic panel (non-fasting) (07/08/2021 8:53 AM EST) Glucose 112 65 - 199 mg/dL [facility] Comment:Diabetes: >=200 mg/d L plus symptoms Blood Urea Nitrogen 20 10 - 20 mg/dL [facility] Creatinine 0.93 0.80 - 1.50 mg/dL [facility] Sodium 133(L) 135 - 145 mmol/L [facility] Potassium 4.3 3.5 - 5.0 mmol/L [facility] Comment: Please note: ??Patients with WBC >100,000 may have falsely elevated Potassium levels. ??For accurate Potassium quantification in these patients send serum separator tube (gold top) for subsequent determinations. ??Contact the Clinical Chemistry Laboratory if there are any questions. Chloride 96(L) 98 - 107 mmol/L [facility] Carbon Dioxide 22 22 - 31 mmol/L [facility] Anion Gap 15 5 - 15 mmol/L [facility] Calcium 9.7 8.5 - 10.5 mg/dL [facility] Protein, Total 6.9 6.1 - 8.0 g/dL [facility] Albumin 4.5 3.2 - 5.2 g/dL [facility] Aspartate Aminotransferase 18 0 - 39 unit/L [facility] Alanine Aminotransferase 26 0 - 55 unit/L [facility] Alkaline Phosphatase 100 40 - 130 unit/L [facility] Bilirubin, Total 0.5 0.2 - 1.3 mg/dL [facility] Est Glomerular Filtration Rate 85 >=60 mL/min/1. 73 m?? [facility] Comment: This patient? s estimated [...] In Lab Heber Phillips MD CHEMISTRY ORDERABLES [facility] [place] [address] documented in this encounter Visit Diagnoses Diagnosis [...] lobe documented in this encounter Care Teams Hasher Operator Relationship Specialty Start Date End Date Nataliya Messina MD [address] [place] [address] PCP - General 10/02/11 01/11/22 documented as of this encounter
--- OUTSIDE RECORDS SUMMARY | 2024-02-09 02:13 | XMS_ITS | Encounter Summary ---
Author Organization [facility] Address [facility] [place] [address] Care Team Providers Care Twister Doffer Name Role Phone None Primary Care Provider Unavailabl e Reason for Visit * Reason Comments IV Medication monoferric * Treatment/Therapy Plan Authorization (Routine) - Closed Specialty Diagnoses / Procedures Referred By Contac t Referred To Contact Diagnoses Iron deficiency anemia, unspecified iron deficiency anemia type Heber Phillips MD [facility] [place] [address] Stj Hem Onc Infusion [address] [place] [phone] Referral ID Status Reason Start Date Expiration Date Visits Re quested Visits Authorized [id number] Closed 01/13/2022 01/13/2023 99 99 Encounter Details Date Type Department Care Team (Late st Contact Info) Description 01/22/2022 12:30 PM EDT Infusion Hematology Oncology at [address] [phone] Iron deficiency anemia, unspecified iron [...] % RA LAB DATA: [place]12[place] [facility] Pre administration: Chemotherapy orders independently verified for drug name, route, and dosage per patient's height, weight and BSA by Radha Gorman RN & On-site pharmacist. REACTIONS (DESCRIPTION, TIME, [...] AM EDT Office Visit Hematology/Oncology at [address] [phone] Heber Phillips MD [facility] HEMATOLOGY [place] [address] Isabella Baker APRN [facility] [place] [address] documented as of this encounter Visit Diagnoses [...] mL/hr documented in this encounter Care Teams Twister Doffer Relationship Specialty Start Date End Date None None PCP - General 01/12/22 11/02/22 documented as of this encounter
--- OUTSIDE RECORDS SUMMARY | 2024-02-09 02:13 | XMS_ITS | Encounter Summary ---
Author Organization [facility] [address] Care Team Providers Care Block Captain Name Role Phone None Primary Care Provider Unavailabl e Encounter Details Date Type Department Care Team (Latest Contact Info) Description 01/12/2022 10:45 AM EDT - 01/12/2022 11:04 AM EDT Hospital Encounter [place] [phone] Small cell lung cancer; Iron deficiency anemia, [...] mg Tablet, SublingualIndications :Coronary artery disease involving [place] heart without angina pectoris, unspecified vessel or [...] AM EDT Office Visit Hematology/Oncology at [address] [phone] Heber Phillips MD [facility] HEMATOLOGY [place] [address] Isabella Baker APRN [facility] [place]ICAL [place] [address] documented as of this encounter Procedures Procedure [...] iron deficiency anemia type COMPREHENSIVE METABOLIC PANEL Routine 01/12/2022 10:53 AM EDT Small cell lung cancer documented in this encounter Results * (ABNORMAL) Differential, Automated (01/12/2022 10:53 AM EDT) Neutrophil % 75.7 % [facility] Neutrophil Absolute 4.34 1.70 - 6.10 x10(3)/mc L [facility] Lymph % 7.0 % [facility] Lymphocytes Abs 0.4(L) 0.9 - 3.2 x10(3)/mc L [facility] Monocyte % 13.9 % [facility] Monocyte Abs 0.8 0.3 - 0.9 x10(3)/mc L [facility] Eos % 1.9 % [facility] Eosinophils Abs 0.1 0.0 - 0.4 x10(3)/mc L [facility] Basophil % 1.0 % [facility] Baso Absolute 0.1 0.0 - 0.1 x10(3)/mc L [facility] Immature Gran % 0.50 % [facility] Comment: Immature granulocytes(IG's)percentage and absolute count will include metamyelocytes, myelocytes, and promyelocytes. Blood smears from CBCs yielding IG's will be scanned manually for concordance. If this scan disagrees with the automated IG or if promyelocytes are noted, a manual differential will be performed. Immature Gran Absolute 0.03 0.00 - 0.04 x10(3)/ L [facility] Blood 01/12/2022 10:5 3 AM EDT 01/12/2022 11:11 AM EDT Narrative Resulting Agency Comment Spec In Lab Heber Phillips MD HEMATOLOGY ORDERABLE S [facility] [place] [address] * (ABNORMAL) Hemogram (01/12/2022 10:53 AM EDT) White Blood Cell 5.7 4.0 - 9.5 x10(3)/[facility] Red Blood Cell 4.04(L) 4.58 - 5.54 x10(6)/[facility] Hemoglobin 10.1(L) 13.7 - 16.5 g/dL [facility] Hematocrit 32.0(L) 40.5 - 48.5 % [facility] Mean Cell Volume 79.2(L) 82.9 - 93.1 fL [facility] Mean Cell Hemoglobin 25.0(L) 27.5 - 32.1 pg [facility] Mean Cell Hemoglobin Concentration 31.6(L) 32.0 - 35.7 g/dL [facility] Platelet 398(H) 145 - 357 x10(3)/[facility] RDW Standard Deviation 41.9 36.0 - 45.0 [facility] RDW coefficient of variation 14.5(H) 11.4 - 13.8 % [facility] Mean Platelet Volume 9.0 7.6 - 12.9 [facility] NRBC% auto 0.0 % [facility] NRBC Absolute 0.000 0.000 - 0.000 x10(3)/[facility] Blood 01/12/2022 10:5 3 AM EDT 01/12/2022 11:11 AM EDT Narrative Resulting Agency Comment Spec In Lab Heber Phillips MD HEMATOLOGY ORDERABLE S Performing Organization Address [facility]/ZIP Co de Phone Number [facility] [place] [address] * (ABNORMAL) Ferritin (01/12/2022 10:53 AM EDT) Pathologist [facility] Ferritin 26(L) 30 - 400 ng/mL [facility] Comment: Pediatric reference ranges not verified at [facility], interpret with caution. Reference ranges for females greater than 50 years of age approach values for men, i.e., 30-400 ng/mL. Blood 01/12/2022 10:5 3 AM EDT 01/12/2022 11:11 AM EDT Narrative Resulting Agency Comment Spec In Lab Heber Phillips MD CHEMISTRY ORDERABLES Performing Organization Address [facility]/ZIP Co de Phone Number [facility] [place] [address] * Comprehensive metabolic panel (non-fasting) (01/12/2022 10:53 AM EDT) [facility] Glucose 105 65 - 199 mg/dL [facility] Comment:Diabetes: >=200 mg/d L plus symptoms Blood Urea Nitrogen 18 10 - 20 mg/dL [facility] Creatinine 1.18 0.80 - 1.50 mg/dL [facility] Sodium 139 135 - 145 mmol/L [facility] Potassium 4.4 3.5 - 5.0 mmol/L [facility] Comment: Please note: ??Patients with WBC >100,000 may have falsely elevated Potassium levels. ??For accurate Potassium quantification in these patients send serum separator tube (gold top) for subsequent determinations. ??Contact the Clinical Chemistry Laboratory if there are any questions. Chloride 101 98 - 107 mmol/L [facility] Carbon Dioxide 28 22 - 31 mmol/L [facility] Anion Gap 10 5 - 15 mmol/L [facility] Calcium 10.1 8.5 - 10.5 mg/dL [facility] Protein, Total 7.2 6.1 - 8.0 g/dL [facility] Albumin 4.7 3.2 - 5.2 g/dL [facility] Aspartate Aminotransferase 17 0 - 39 unit/L [facility] Alanine Aminotransferase 14 0 - 55 unit/L [facility] Alkaline Phosphatase 99 40 - 130 unit/L [facility] Bilirubin, Total 0.4 0.2 - 1.3 mg/dL [facility] Est Glomerular Filtration Rate 68 >=60 mL/min/1. 73 m?? [facility] Comment: This patient's estimated GFR [...] In Lab Heber Phillips MD CHEMISTRY ORDERABLES [facility] [place] [address] documented in this encounter Visit Diagnoses Diagnosis Small cell lung cancer Malignant neoplasm of bronchus and lung, unspecified site Iron deficiency anemia, unspecified iron deficiency anemia type documented in this encounter Care Teams Block Captain Relationship Specialty Start Date End Date None None PCP - General 01/12/22 11/02/22 documented as of this encounter
--- OUTSIDE RECORDS SUMMARY | 2024-02-09 02:13 | XMS_ITS | Encounter Summary ---
Author Organization [facility] [place] [address] Care Team Providers Care Pensionholder Information Clerk Name Role Phone Natalyia Messina MD Primary Care Provider [phone] Reason for Visit * Diagnostic Test (Routine) - Closed Specialty Diagnoses / Procedures Referred By Contac t Referred To Contact Radiology Diagnoses Small cell lung cancer Small cell lung cancer, right upper lobe Procedures NM PET CT Skull Base to Mid-thigh Heber Phillips MD [facility] [place] [address] [place] [address] Referral ID Status Reason Start Date Expiration Date V isits Requested Visits Authorized [id number] Closed Specialty Service Requested 03/11/2021 09/08/2022 1 1 Encounter Details Date Type Department Care Team (Latest Contact Info) Description 07/08/2021 8:58 AM EST - 07/08/2021 11:59 PM EST Hospital Encounter Nuclear [place] [address] Heber Phillips MD [facility] [place]ATOLOGY [place] [address] Discharge Disposition: Home Social History [...] mg Tablet, SublingualIndications :Coronary artery disease involving [place] heart without angina pectoris, unspecified vessel or [...] AM EDT Office Visit Hematology/Oncology at [address] [phone] Heber Phillips MD [facility] DR HEMATOLOGY [place] [address] Isabella Baker APRN [facility] [place] [address] documented as of this encounter Procedures Procedure Name Priority Date/Time Associated Diagnosis Comments NM PET CT SKULL BASE TO MID-THIGH (LCSR) Routine 07/08/2021 10:27 AM EST Small cell lung cancer Small cell lung cancer, right upper lobe POCT GLUCOSE Routine 07/08/2021 9:05 AM EST documented in this encounter Results * POCT Glucose (07/08/2021 9:05 AM EST) Glucose, POC 113 65 - 199 mg/dL [facility] Comment: Supplemental ranges: <140 mg/dL before meals <180 mg/dL all other times of the day Blood 07/08/2021 9:05 AM EST 07/08/2021 9:05 AM EST Heber Phillips MD POINT OF CARE TEST O RDERABLES [facility] [place] [address] documented in this encounter Visit Diagnoses Not on filedocumented in this encounter Care Teams Pensionholder Information Clerk Relationship Specialty Start Date End Date Nataliya Messina MD [address] [place] [address] PCP - General 10/02/11 01/11/22 documented as of this encounter
--- OUTSIDE RECORDS SUMMARY | 2024-02-09 02:13 | XMS_ITS | Encounter Summary ---
Author Organization [facility] [place] [address] Care Team Providers Care Loop Cutter Name Role Phone Nataliya Messina MD Primary Care Provider [phone] Encounter Details Date Type Department Care Team (Late st Contact Info) Description 05/16/2021 Ancillary Procedure [place] [phone] Sayra Hawk APRN [address] [place], [place] [address] Social History Tobacco Use Types Packs/Day Years [...] AM EDT Office Visit Hematology/Oncology at [address] [address] Heber Phillips MD [facility] DR [place]OLOGY [place] [address] Isabella Baker APRN [facility] [place] [address] documented as of this encounter Procedures Procedure Name Priority Date/Time Associated Diagnosis Comments FILM LIBRARY STORAGE ONLY DX CHEST Routine 05/16/2021 12:00 AM EST documented in this encounter Results * Film Library- Storage Only DX Chest (05/16/2021 12:00 AM EST) Narrative [facility] - 07/20/2023 3:51 AM EST This exam is auto-finalizing. It's purpose is for storage only. Sayra Adjovu BUSINESS EDUCATION INSTRUCTOR IMG FILM LIBRARY OR DERABLES Performing Organization Address City/State/[facility] Co de Phone Number [place], [place] documented in this encounter Visit Diagnoses Not on filedocumented in this encounter Care Teams Loop Cutter Relationship Specialty Start Date End Date Nataliya Messina MD [address] [place] [address] [address] [place] [address] PCP - General 10/02/11 01/11/22 documented as of this encounter
--- OUTSIDE RECORDS SUMMARY | 2024-02-09 02:13 | XMS_ITS | Encounter Summary ---
Author Organization [facility] Address [facility] [place] [address] Care Team Providers Care Planner Scheduler Name Role Phone None Primary Care Provider Unavailabl e Encounter Details Date Type Department Care Team (Latest Contact Info) Description 04/21/2022 4:55 PM EDT Ancillary Procedure [place] [address] Heber Phillips MD [facility] HEMATOLOGY [place] [address] Small cell lung cancer, right upper lobe [...] AM EDT Office Visit Hematology/Oncology at [address] [address] Heber Phillips MD [facility] H[place]ATOLOGY [place] [address] Isabella Baker APRN [facility] [place] [address] documented as of this encounter Procedures Procedure [...] have questions please contact the health home health care worker that requested your imaging first. ? Narrative 04/22/2022 9:48 AM EDT EXAMINATION: REQUEST FOR 2ND READ CT CHEST CLINICAL HISTORY: Follow-up on the findings on the recent PET scan: Interval appearance of ill-defined mild to moderately FDG avid nodular; Sending Institution [facility]; Date of exam [id number]; I believe [...] lobe documented in this encounter Care Teams Planner Scheduler Relationship Specialty Start Date End Date None None PCP - General 01/12/22 11/02/22 documented as of this encounter
--- OUTSIDE RECORDS SUMMARY | 2024-02-09 02:14 | XMS_ITS | Encounter Summary ---
Author Organization [facility] Address [facility] [place] [address] Care Team Providers Care Visual Arts Teacher Name Role Phone Nataliya Messina MD Primary Care Provider [phone] Reason for Referral * Speech Therapy (Routine) - Closed Specialty Diagnoses / Procedures Referred By Contac t Referred To Contact Speech Pathology / Speech Therapy Diagnoses Aspiration pneumonia due to gastric secretions, unspecified laterality, unspecified part of lung Mariella Sarmiento MD [facility] [place] [address] [facility] [place] [address] Referral ID Status Reason Start Date Expiration Date V isits Requested Visits Authorized [id number] Closed Evaluate and Treat 07/17/2019 07/16/2020 1 1 Encounter Details Date Type Department Care Team (Late st Contact Info) Description 07/17/2019 [place] [address] Mariella Sarmiento MD [facility] [place] [address] Aspiration pneumonia due to gastric [...] AM EDT Office Visit Hematology/Oncology at [address] [address] Heber Phillips MD [facility] [place] [address] Isabella Baker APRN [facility] [place] [place] [address] Scheduled Referrals Name Type Priority Associated Diagnoses Orde r Schedule Referral to Speech Therapy Outpatient Referral Routine Aspiration pneumonia due to gastric secretions, unspecified laterality, unspecified part of lung Ordered: 07/17/2019 documented as of this encounter Visit Diagnoses Diagnosis Aspiration pneumonia due to gastric secretions, unspecified laterality, unspecified part of lung- Primary documented in this encounter Care Teams Visual Arts Teacher Relationship Specialty Start Date End Date Nataliya Messina MD [address] [place] [address] PCP - General 10/02/11 01/11/22 documented as of this encounter
--- OUTSIDE RECORDS SUMMARY | 2024-02-09 02:14 | XMS_ITS | Encounter Summary ---
Author Organization [facility] [place] [address] Care Team Providers Care Extension Clerk Name Role Phone Nataliya Messina MD Primary Care Provider [phone] Reason for Referral * Diagnostic Test (Routine) - Closed Specialty Diagnoses / Procedures Referred By Contac t Referred To Contact Radiology Diagnoses Small cell lung cancer, right upper lobe Procedures NM PET CT Skull Base to Mid-thigh Heber Phillips MD [facility] [place] [address] [place] [address] Referral ID Status Reason Start Date Expiration Date V isits Requested Visits Authorized [id number] Closed Specialty Service Requested 06/06/2019 12/05/2020 1 1 Reason for Visit * Diagnostic Test (Routine) - Closed Specialty Diagnoses / Procedures Referred By Contac t Referred To Contact Radiology Diagnoses Small cell lung cancer, right upper lobe Procedures NM PET CT Skull Base to Mid-thigh Heber Phillips MD [facility] [place] [address] [place] [address] Referral ID Status Reason Start Date Expiration Date V isits Requested Visits Authorized [id number] Closed Specialty Service Requested 06/06/2019 12/05/2020 1 1 Encounter Details Date Type Department Care Team (Latest Contact Info) Description 10/16/2019 10:00 AM EDT Hospital Encounter Nuclear Medicine at [facility] [place] [address] Heber Phillips MD [facility] [place] [address] Small cell lung cancer, right upper lobe [...] AM EDT Office Visit Hematology/Oncology at [address] [phone] Heber Phillips MD [facility] HEMATOLOGY [place] [address] Isabella Baker APRN [facility] [place] [address] documented as of this encounter Procedures Procedure [...] restaging exam. TECHNIQUE: Following IV injection of 86-aievuv-5-deoxyglucose (FDG) a standard uptake of approximately 60 [...] restaging exam. TECHNIQUE: Following IV injection of 89-juyptk-9-deoxyglucose (FDG) astandard uptake of approximately 60 minutes, [...] Intravenous, ONCE PRN, 1 dose, Starting on Wed10/16/19 at 1030, Until Wed10/16/19 at 1022, Per Protocol, Radiology Contrast, Routine Given 10/16/2019 10:22 AM EDT 12.5 mCi Right Arm documented in this encounter Care Teams Extension Clerk Relationship Specialty Start Date End Date Nataliya Messina MD [facility] [address] [place] [address] PCP - General 10/02/11 01/11/22 documented as of this encounter
--- OUTSIDE RECORDS SUMMARY | 2024-02-09 02:14 | XMS_ITS | Encounter Summary ---
Author Organization [facility] [place] [address] Care Team Providers Care Casing Wringer Operator Name Role Phone Nataliya Messina MD Primary Care Provider [phone] Reason for Visit * Diagnostic Test (Routine) - Closed Specialty Diagnoses / Procedures Referred By Contac t Referred To Contact Radiology Diagnoses Small cell lung cancer, right upper lobe Procedures NM PET CT Skull Base to Mid-thigh Heber Phillips MD [facility] DR [place]OLOG[place] [address] [place] [address] Referral ID Status Reason Start Date Expiration Date V isits Requested Visits Authorized [id number] Closed Specialty Service Requested 06/06/2019 12/05/2020 1 1 Encounter Details Date Type Department Care Team (Latest Contact Info) Description 10/16/2019 10:01 AM EDT - 10/16/2019 11:59 PM EDT Hospital Encounter [place] [address] Heber Phillips MD [facility] [place]ATOLOGY [place] [address] Discharge Disposition: Home Social History [...] AM EDT Office Visit Hematology/Oncology at [address] [address] Heber Phillips MD [facility] DR [place]OLOGY [place] [address] Isabella Baker APRN [facility] [place] [address] documented as of this encounter Procedures Procedure Name Priority Date/Time Associated Diagnosis Comments NM PET CT SKULL BASE TO MID-THIGH (LCSR) Routine 10/16/2019 11:34 AM EDT Small cell lung cancer, right upper lobe POCT GLUCOSE Routine 10/16/2019 10:17 AM EDT documented in this encounter Results * POCT Glucose (10/16/2019 10:17 AM EDT) Glucose, POC 125 65 - 199 mg/dL [facility] Comment: Supplemental ranges: <140 mg/dL before meals <180 mg/dL all other times of the day Blood specimen (specimen) 10/16/2019 10:17 AM EDT 10/16/2019 10:17 AM EDT Heber Phillips MD POINT OF CARE TEST O RDERABLES Performing Organization Address City/[facility] Co de Phone Number [facility] [place] [address] documented in this encounter Visit Diagnoses Not on filedocumented in this encounter Care Teams Casing Wringer Operator Relationship Specialty Start Date End Date Nataliya Messina MD [address] [place] [address] PCP - General 10/02/11 01/11/22 documented as of this encounter
--- OUTSIDE RECORDS SUMMARY | 2024-02-09 02:14 | XMS_ITS | Encounter Summary ---
[place] [address] Care Team Providers Care Profile Stitching Machine Operator Name Role Phone Nataliya Messina MD Primary Care Provider [phone] Encounter Details Date Type Department Care Team (Late Contact Info) Description 10/01/2020 Telephone [place] [phone] Latanya Murguia Social History Tobacco Use Types [...] Upcoming Encounters Date Type Department Care Team ([facility] Contact Info) Description 03/28/2024 10:00 AM EDT Office Visit Hematology/Oncology at [address] [phone] Heber Phillips MD [facility] [address] [place] [address] Isabella Baker APRN [facility] [place] [address] documented as of this encounter Visit Diagnoses Not on filedocumented in this encounter Care Teams Profile Stitching Machine Operator Relationship Specialty Start Date End Date Nataliya Messina MD [address] [place] [address] PCP - General 10/02/11 01/11/22 documented as of this encounter
--- OUTSIDE RECORDS SUMMARY | 2024-02-09 02:14 | XMS_ITS | Encounter Summary ---
[facility] [place] [address] Care Team Providers Care Cash Person Name Role Phone Nataliya Messina MD Primary Care Provider [phone] Encounter Details Date Type Department Care Team (Late Contact Info) Description 07/07/2019 [place] [phone] Jessica Butterfield Social History Tobacco Use Types [...] Upcoming Encounters Date Type Department Care Team ([facility] Contact Info) Description 03/28/2024 10:00 AM EDT Office Visit Hematology/Oncology at [address] [phone] Heber Phillips MD [facility] [address] [place] [address] Isabella Baker APRN [facility] [place] [address] documented as of this encounter Visit Diagnoses Not on filedocumented in this encounter Care Teams Cash Person Relationship Specialty Start Date End Date Nataliya Messina MD [address] [place] [address] PCP - General 10/02/11 01/11/22 documented as of this encounter
--- OUTSIDE RECORDS SUMMARY | 2024-02-09 02:14 | XMS_ITS | Encounter Summary ---
Author Organization [facility] Address [facility] [place] [address] Care Team Providers Care Sed Middle School Teacher Name Role Phone Nataliya Messina MD Primary Care Provider [phone] Reason for Visit * Speech Therapy (Routine) - Closed Specialty Diagnoses / Procedures Referred By Contac t Referred To Contact Speech Pathology / Speech Therapy Diagnoses Dysphagia, oropharyngeal phase Mariella Sarmiento MD [facility] [place] [address] [facility] Supervisor [place] [address] Referral ID Status Reason Start Date Expiration Date V isits Requested Visits Authorized [id number] Closed Evaluate and Treat 07/10/2019 07/09/2020 1 1 Encounter Details Date Type Department Care Team (Late st Contact Info) Description 07/12/2019 1:30 PM EST Office [place] [phone] Lisa Cadena, ELECTRICAL SOLDERER [facility] PHYSICAL MEDIC[facility] & [place] [address] Dysphagia, oropharyngeal phase Social History Tobacco Use [...] Notes * Initial Evaluation - Lisa Cadena, ELECTRICAL SOLDERER - 07/12/2019 1:30 PM EST Speech Therapy [...] swallow evaluation. He is referred by his ceramic worker Dr. Sarmiento. Patient's past medical history is significant for severe emphysema, small cell lung cancer s/p radiation, [place] s/p two stents, CVA, R CEA, former tobacco use. Nowwith an increase in exertional dyspnea, and concern for aspiration pneumonitis. Referral for officeswallow evaluation to assess for dysphagia. Pt reports that last encounter with speech pathology was approximately 10 years ago with combined barium swallow evaluation at [facility]. Official results of this exam are [...] and remaining upright after meals). No formal ELECTRICAL SOLDERER intervention was recommended atthat time. Of note, this evaluation was prior to pt's chemoradiation for lung cancer. Since that time, pt has cut out corn, peas, lettuce and other particulate solids or items with skins or fibrous shells. He has significantly slowed down his rate of intake, with prolonged chewing formore complex solids. ELECTRICAL SOLDERER at [facility] recommended pt use denture adhesive, which [...] thatsince starting the steroid prescribed by his ceramic worker he is experiencing less coughing outsideof meals. He plans to start pulmonary rehab at [facility] soon. Subjective: Pt is a pleasant, [...] swallow conducted approximately [address] [facility], would strongly recommend combined barium swallow. Suspect [...] is not possible, will seek MBS at [facility] per pt request Pt in agreement with this plan Thank you for this consult with this patient. Please feel free to page me with any questions or concerns. Lisa Cadena MS, CCC-ELECTRICAL SOLDERER Inpatient Speech Pathologist Pager #[phone] documented in this encounter Plan of Treatment Upcoming Encounters Date Type Department Care Team (Late st Contact Info) Description 03/28/2024 10:00 AM EDT Office Visit Hematology/Oncology at [address] [phone] Heber Phillips MD [facility] HEMATOLOGY [place] [address] Isabella Baker APRN [facility] [place] [address] Scheduled Referrals Name Type Priority Associated Diagnoses Orde r Schedule Referral to Speech Therapy Outpatient Referral Routine Dysphagia, oropharyngeal phase Ordered: 07/10/2019 documented as of this encounter Visit Diagnoses Diagnosis Dysphagia, oropharyngeal phase documented in this encounter Care Teams Sed Middle School Teacher Relationship Specialty Start Date End Date Nataliya Messina MD [address] [place] [address] PCP - General 10/02/11 01/11/22 documented as of this encounter
--- OUTSIDE RECORDS SUMMARY | 2024-02-09 02:14 | XMS_ITS | Encounter Summary ---
[place] [address] Care Team Providers Care Olericulturist Name Role Phone Nataliya Messina MD Primary Care Provider [phone] Encounter Details Date Type Department Care Team (Late st Contact Info) Description 08/04/2019 Telephone [place] [address] Johana Francois RT Social History [...] AM EDT Office Visit Hematology/Oncology at [address] [phone] Heber Phillips MD [facility] DR HEMATOLOGY [place] [address] Isabella Baker APRN [facility] [place] [address] documented as of this encounter Visit Diagnoses Not on filedocumented in this encounter Care Teams Olericulturist Relationship Specialty Start Date End Date Nataliya Messina MD [address] [place] [address] PCP - General 10/02/11 01/11/22 documented as of this encounter
--- OUTSIDE RECORDS SUMMARY | 2024-02-09 02:14 | XMS_ITS | Encounter Summary ---
Author Organization [facility] [place] [address] Care Team Providers Care Bottom Precipitator Operator Name Role Phone Nataliya Messina MD Primary Care Provider [phone] Reason for Referral * Diagnostic Test (Routine) - Closed Specialty Diagnoses / Procedures Referred By Contac t Referred To Contact Radiology Diagnoses Small cell lung cancer, right upper lobe Procedures NM PET CT Skull Base to Mid-thigh Mary Cleaning RN [address] [place] [address] [place] [address] [place] [address] Referral ID Status Reason Start Date Expiration Date V isits Requested Visits Authorized [id number] Closed Specialty Service Requested 09/17/2020 03/20/2022 1 1 Encounter Details Date Type Department Care Team (Late st Contact Info) Description 09/17/2020 2:00 PM EDT Office Visit Hematology/Oncology at [address] [phone] Heber Phillips MD [facility] DR HEMATOLOGY [place] [address] Mary Cleaning RN Small cell [...] this encounter Progress Notes * Mary Cleaning, DEVANTE - 09/17/2020 2:00 PM EDT Images from [...] Subjective (09/17/20): Mr. Tillman returns to the [facility] for follow up of small cell [...] PMH: No interval changes since last visit OR in 2013 status post 2 stents placement, [...] radiating to right leg ??? Myocardial infarction [place] about 6 years ago [place] [facility] [place] ??? PVD (peripheral vascular disease) 10/28/2011 [...] thought content normal. Labs: 09/17/20- WBC-9.21 Hgb/Hct-11.9/36.1 Akj900 ANC-6.94 03/05/2020 WBC 8.23, hemoglobin 14.6, platelet [...] including history of stroke, severe peripheralvascular disease, [place] status post stent placement and COPD. His [...] PCP. He may need to see a cloth dyer again. Plan: 1. Next visit with CBC, [...] AM EDT Office Visit Hematology/Oncology at [address] [phone] Heber Phillips MD [facility] DR HEMATOLOGY [place] [address] Isabella Baker APRN [facility] [place] [address] documented as of this encounter Results * [...] who have questions please contact the health day care center director that requested your imaging first. ? Electronically signed by: Vamsi Perez MD, [facility] ([phone]), at 12/25/2020 4:12 PM Narrative 12/25/2020 4:12 PM EDT EXAMINATION: NM PET CT STANDARD SKULL BASE TO MID-THIGH CLINICAL HISTORY: Cancer of unknown primary, surveillance TECHNIQUE: Following IV injection of 76-omakkj-9-deoxyglucose (FDG) a standard uptake of approximately 60 [...] primary, surveillance TECHNIQUE: Following IV injection of 79-gwgvmh-7-deoxyglucose (FDG) astandard uptake of approximately 60 minutes, [...] patients who have questions please contactthe health day care center director that requested your imaging first. Electronically signed by: Vamsi Perez MD, [facility]([phone]), at 12/25/2020 4:12 PM Mary Cleaning RN IMG PET ORDERABLES documented in this encounter Visit Diagnoses Diagnosis Small cell lung cancer, right upper lobe Small cell lung cancer, right upper lobe documented in this encounter Care Teams Bottom Precipitator Operator Relationship Specialty Start Date End Date Nataliya Messina MD [address] [place] [address] [address] [facility] [address] [place] [address] PCP - General 10/02/11 01/11/22 documented as of this encounter
--- OUTSIDE RECORDS SUMMARY | 2024-02-09 02:14 | XMS_ITS | Encounter Summary ---
Author Organization [facility] [place] [address] Care Team Providers Care Medical Equipment Repairer Name Role Phone Nataliya Messina MD Primary Care Provider [phone] Reason for Referral * Rehabilitation (Routine) - Specialty Diagnoses / Procedures Referred By Keven t Referred To Contact Diagnoses COPD, very severe Mariella Sarmiento MD [facility] [place] [address] Referral ID Status Reason Start Date Expiration Date V isits Requested Visits Authorized [id number] Evaluate and Treat 07/10/2019 01/06/2020 36 36 * Speech Therapy (Routine) - Closed Specialty Diagnoses / Procedures Referred By Keven t Referred To Contact Speech Pathology / Speech Therapy Diagnoses Dysphagia, oropharyngeal phase Mariella Sarmiento MD [facility] [place] [address] [facility] [place] [address] Referral ID Status Reason Start Date Expiration Date V isits Requested Visits Authorized [id number] Closed Evaluate and Treat 07/10/2019 07/09/2020 1 1 * Rehabilitation (JULIEN) - Specialty Diagnoses / Procedures Referred By Contac t Referred To Contact Cardiology Diagnoses COPD, very severe Egressy, Katarine V, MD [facility] [place] [address] [facility] [place] [address] Referral ID Status Reason Start Date Expiration Date V isits Requested Visits Authorized [id number] Evaluate and Treat 07/10/2019 07/09/2020 36 36 Reason for Visit * Reason Comments Referral * Consultation (Routine) - Closed Specialty Diagnoses / Procedures Referred By Contfatimah t Referred To Contact Pulmonology Diagnoses Small cell lung cancer, right upper lobe SOB (shortness of breath) Chronic cough Post-radiation pneumonitis Heber Phillips MD [facility] DR [place] [address] [facility] Pulmonology [address] [place] [phone] Referral ID Status Reason Start Date Expiration Date V isits Requested Visits Authorized [id number] Closed Consult, Test & Treat 06/06/2019 06/05/2020 1 1 Encounter Details Date Type Department Care Team (Late st Contact Info) Description 07/10/2019 2:30 PM EST Office Visit Pulmonology at [place] [phone] Mariella Sarmiento MD [facility] [place] [address] COPD, very severe (Primary Dx); Dysphagia, oropharyngeal [...] from the original note were not included. [facility] Section of Pulmonary and Critical Care Medicine Outpatient Consultation Date of Encounter: 07/10/2019 Referring Provider: Nataliya Messina MD [address] [place], [place] [address]Y [address] [address] Reason for Evaluation: Nataliay Messina MD referred . Hieu Tillman to [...] he has been under surveillance of a reflow operator, Dr. Bautista that has since retired. He [...] has had previous evaluation by speech, at [facility], where he was told that he [...] disease with 2 separate incidences of acute [place], the last one being in 2016 Social [...] [facility] [place] [facility] [...] ANGIOPLASTY WITH STENT PLACEMENT ? ? PRO [facility] EBUS GUIDED SAMPL 3/> NODE STATION/STRUX N/A 01/05/2018 BRONCH, W ENDOBRONCHIAL ULTRASOUND (EBUS) GUIDED SAMPLING, 3+ NODES (WRVU 5.21) performed by Kingsley Ortiz MD at [facility] MAIN OR ??? PRO THROMBOENDARTECTMY NECK, NECK INCIS Right 10/20/2016 @ENDARTERECTOMY, CAROTID, VERTEBRAL,SUBCLAVIAN W\WO PATCH GRAFT (WRVU 21.16) performed by Omero Wills MD at [facility] MAIN OR Family History: Family History [...] on phone: None Gets together: None Attends denominational service: None Active member of club or organization: None Attends meetings of clubs or organizations: None Relationship status: None ??? Intimate partner violence Fear of current or ex partner: None Emotionally abused: None Physically abused: None Forced sexual activity: None Other Topics Concern ??? None Social History Narrative Lives with his in [place], [place]. 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 Acute Phase Reactants No results for input(s): CRP, SEDRATE, IRON, IRONSAT, FERRITIN, FIBRINOGEN, INTERLEUKIN6, FGJWDRZ7ZRIR, CALPROTECTIN in the last 7068 hours. Imaging: [...] pulmonary rehabilitation at his nearest hospital in [facility]. This referral is placed. Lastly, we [...] due to severe dysphagia Pulmonary rehab at [facility] Mariella Sarmiento MD, MPH N [facility] PULMONOLOGY AT [facility] [address] Dept: [phone] Loc: [phone] documented in this encounter Plan of Treatment Upcoming Encounters Date Type Department Care Team (Late st Contact Info) Description 03/28/2024 10:00 AM EDT Office Visit Hematology/Oncology at [address] [phone] Heber Phillips MD [facility] DR [place] [address] Isabella Baker APRN [facility] [place] [address] Scheduled Referrals Name Type Priority Associated Diagnoses [...] site documented in this encounter Care Teams Medical Equipment Repairer Relationship Specialty Start Date End Date Nataliya Messina MD [address] [place] [address] PCP - General 10/02/11 01/11/22 documented as of this encounter
--- OUTSIDE RECORDS SUMMARY | 2024-02-09 02:14 | XMS_ITS | Encounter Summary ---
Author Organization [facility] [place] [address] Care Team Providers Care Selector Packer Name Role Phone Nataliya Messina MD Primary Care Provider [phone] Reason for Referral * Diagnostic Test (Routine) - Closed Specialty Diagnoses / Procedures Referred By Contac t Referred To Contact Radiology Diagnoses Small cell lung cancer, right upper lobe Small cell lung cancer Procedures NM PET CT Skull Base to Mid-thigh Heber Phillips MD [facility] [address] [place] [address] [place] [address] Referral ID Status Reason Start Date Expiration Date V isits Requested Visits Authorized [id number] Closed Specialty Service Requested 03/05/2020 09/02/2021 1 1 Reason for Visit * Diagnostic Test (Routine) - Closed Specialty Diagnoses / Procedures Referred By Contac t Referred To Contact Radiology Diagnoses Small cell lung cancer, right upper lobe Small cell lung cancer Procedures NM PET CT Skull Base to Mid-thigh Heber Phillips MD [facility] [address] [place] [address] [place] [address] Referral ID Status Reason Start Date Expiration Date V isits Requested Visits Authorized [id number] Closed Specialty Service Requested 03/05/2020 09/02/2021 1 1 Encounter Details Date Type Department Care Team (Latest Contact Info) Description 09/13/2020 10:42 AM EDT Hospital Encounter [place] [address] Heber Phillips MD [facility] [address] [place] [address] Small cell lung cancer, right upper lobe; [...] 10:00 AM EDT Office Visit Hematology/Oncology at [address] [phone] Heber Phillips MD [facility] [address] [place] [address] Isabella Baker APRN [facility] [place] [address] documented as of this encounter Procedures Procedure [...] prior to speaking to our radiologists. ? Electronically signed by: Lorelei Nieto MD, [facility] ([phone]), at at 09/13/2020 4:24 PM Narrative 09/13/2020 4:24 PM EDT EXAMINATION: NM PET CT SKULL BASE TO MID-THIGH ? CLINICAL HISTORY: Small cell lung cancer, monitor Restaging of small cell lung cancer TECHNIQUE: Following IV injection of 30-dnywew-2-deoxyglucose (FDG) a standard uptake of approximately 60 [...] Arm documented in this encounter Care Teams Selector Packer Relationship Specialty Start Date End Date Nataliya Messina MD [address] [place] [address] PCP - General 10/02/11 01/11/22 documented as of this encounter
--- OUTSIDE RECORDS SUMMARY | 2024-02-09 02:14 | XMS_ITS | Encounter Summary ---
[place] [address] Care Team Providers Care Spring Maker Name Role Phone Nataliya Messina MD Primary Care Provider [phone] Encounter Details Date Type Department Care Team (Late st Contact Info) Description 08/08/2019 Tele[place] [address] Johana Francois RT Social History [...] AM EDT Office Visit Hematology/Oncology at [address] [phone] Heber Phillips MD [facility] DR HEMATOLOGY [place] [address] Isabella Baker APRN [facility] [place] [address] documented as of this encounter Visit Diagnoses Not on filedocumented in this encounter Care Teams Spring Maker Relationship Specialty Start Date End Date Nataliya Messina MD [address] [place], [place] [address] PCP - General 10/02/11 01/11/22 documented as of this encounter
--- OUTSIDE RECORDS SUMMARY | 2024-02-09 02:14 | XMS_ITS | Encounter Summary ---
[place] [address] Care Team Providers Care Data Integration Analyst Name Role Phone Nataliya Messina MD Primary Care Provider [phone] Encounter Details Date Type Department Care Team (Late st Contact Info) Description 10/25/2020 Telephone [place] [address] Geetha Burk Social History Tobacco Use Types [...] - 10/25/2020 2:33 PM EDT Hieu Tillman [id number] Diagnosis/Indication: abnormal PET scan 'new small focus [...] to patient: You must have a responsible alliance party who will drive you to your procedure, [...] AM EDT Office Visit Hematology/Oncology at [address] [phone] Heber Phillips MD [facility] DR HEMATOLOGY [place] [address] Isabella Baker APRN [facility] [place] [address] documented as of this encounter Visit Diagnoses Not on filedocumented in this encounter Care Teams Data Integration Analyst Relationship Specialty Start Date End Date Nataliya Messina MD [address] [place] [address] 1 [place] [address] PCP - General 10/02/11 01/11/22 documented as of this encounter
--- OUTSIDE RECORDS SUMMARY | 2024-02-09 02:14 | XMS_ITS | Encounter Summary ---
[place] [address] Care Team Providers Care Water Plant Operator Name Role Phone Nataliya Messina MD Primary Care Provider [phone] Encounter Details Date Type Department Care Team (Late Contact Info) Description 06/20/2019 Telephone [place] [phone] Jessica Butterfield Social History Tobacco Use Types [...] Upcoming Encounters Date Type Department Care Team ([facility] Contact Info) Description 03/28/2024 10:00 AM EDT Office Visit Hematology/Oncology at [address] [phone] Heber Phillips MD [facility] DR [place] [address] Isabella Baker APRN [facility] [place] [address] documented as of this encounter Visit Diagnoses Not on filedocumented in this encounter Care Teams Water Plant Operator Relationship Specialty Start Date End Date Nataliya Messina MD [address] [place] [address] PCP - General 10/02/11 01/11/22 documented as of this encounter
--- OUTSIDE RECORDS SUMMARY | 2024-02-09 02:14 | XMS_ITS | Encounter Summary ---
Author Organization [place] [address] Care Team Providers Care Database Security Expert Name Role Phone Nataliya Messina MD Primary Care Provider [phone] Reason for Referral * Diagnostic Test (Routine) - Closed Specialty Diagnoses / Procedures Referred By Contac t Referred To Contact Radiology Diagnoses Small cell lung cancer, right upper lobe Small cell lung cancer Procedures NM PET CT Skull Base to Mid-thigh Heber Phillips MD [facility] DR HEMATOLOGY [place] [address] [place] [address] Referral ID Status Reason Start Date Expiration Date V isits Requested Visits Authorized [id number] Closed Specialty Service Requested 03/05/2020 09/02/2021 1 1 Reason for Visit * Reason Comments Follow-up Encounter Details Date Type Department Care Team (Late st Contact Info) Description 03/05/2020 2:00 PM EDT Office Visit Hematology/Oncology at [address] [phone] Heber Phillips MD [facility] HEMATOLOGY [place] [address] Mary Cleaning RN Small cell lung cancer, [...] some phlegm, but nothing new. Follows with client server developer. Denies any pain. Denies any nausea, vomiting or pain. No fever or chills. No other focal complaints. PMH: No interval changes since last visit PR in 2014 status post 2 stents placement, [...] radiating to right leg ??? Myocardial [place] 6 [place] [facility] [place] ??? 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 Marital [...] file Gets together: Not on file Attends mormonism service: Not on file Active member of [...] Social History Narrative Lives with his in [place], [place]. 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 1 tablet Refills: 0 htwvpsalbib-xzblhzdqa-wnoiugrp 100-62.5-25 mcg Dsdv Inhale 1 puff into [...] 38, alkaline phosphatase 112, total protein 7.5. 5/05/20 WBC 8.18, hemoglobin 13.3, platelet count 464, [...] mg/m?? days 1-3 02/16/18 -03/29/18 XRT Mr. 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 Brain MRI and PET scan are negative for distant disease. He is a former smoker with significant comorbidities including history of stroke, severe peripheralvascular disease, [place] status post stent placement and COPD. His [...] pulmonary team Exertional dyspnea is getting worse. [place] better on prednisone in the beginning but after tapering off prednisone cough and dyspnea back. Refer him to client server developer as his client server developer had consult hospital retired Plan: 1. Next visit with CBc, CMP and PET scan in 6 months The plan was discussed with the patient in details. All questions were answered to patient's satisfaction. documented in this encounter Plan of Treatment Upcoming Encounters Date Type Department Care Team (Late st Contact Info) Description 03/28/2024 10:00 AM EDT Office Visit Hematology/Oncology at [address] [phone] Heber Phillips MD [facility] DR HEMATOLOGY [place] [address] Isabella Baker APRN [facility] [place] [address] documented as of this encounter Results * [...] lung cancer TECHNIQUE: Following IV injection of 62-ugpiad-9-deoxyglucose (FDG) a standard uptake of approximately 60 [...] site documented in this encounter Care Teams Database Security Expert Relationship Specialty Start Date End Date Nataliya Messina MD [address] [place] [address] PCP - General 10/02/11 01/11/22 documented as of this encounter
--- OUTSIDE RECORDS SUMMARY | 2024-02-09 02:14 | XMS_ITS | Encounter Summary ---
[place] [address] Care Team Providers Care Chain Sales Representative Name Role Phone Nataliya Messina MD Primary Care Provider [phone] Encounter Details Date Type Department Care Team (Late st Contact Info) Description 10/27/2019 [place] [phone] Johana Francois RT Social History Tobacco Use [...] AM EDT Office Visit Hematology/Oncology at [address] [address] Heber Phillips MD [facility] DR HEMATOLOGY [place] [address] Isabella Baker APRN [facility] [place] [address] documented as of this encounter Visit Diagnoses Not on filedocumented in this encounter Care Teams Chain Sales Representative Relationship Specialty Start Date End Date Nataliya Messina MD [address] [facility] [address] [address] [place] [address] PCP - General 10/02/11 01/11/22 documented as of this encounter
--- OUTSIDE RECORDS SUMMARY | 2024-02-09 02:14 | XMS_ITS | Encounter Summary ---
[place] [address] Care Team Providers Care Collections Attorney Name Role Phone Nataliya Messina MD Primary Care Provider [phone] Reason for Referral * Diagnostic Test (Routine) - Closed Specialty Diagnoses / Procedures Referred By Contac t Referred To Contact Radiology Diagnoses Small cell lung cancer, right upper lobe Procedures NM PET CT Skull Base to Mid-thigh Mary Cleaning RN [address] [place] [address] [place] [address] [place] [address] Referral ID Status Reason Start Date Expiration Date V isits Requested Visits Authorized [id number] Closed Specialty Service Requested 09/17/2020 03/20/2022 1 1 Reason for Visit * Diagnostic Test (Routine) - Closed Specialty Diagnoses / Procedures Referred By Contac t Referred To Contact Radiology Diagnoses Small cell lung cancer, right upper lobe Procedures NM PET CT Skull Base to Mid-thigh Mary Cleaning RN [address] [place] [address] [place] [address] [place] [address] Referral ID Status Reason Start Date Expiration Date V isits Requested Visits Authorized [id number] Closed Specialty Service Requested 09/17/2020 03/20/2022 1 1 Encounter Details Date Type Department Care Team (Latest Contact Info) Description 12/25/2020 11:45 AM EDT Hospital Encounter [place] [address] Mary Cleaning RN Small cell [...] AM EDT Office Visit Hematology/Oncology at [address] [phone] Heber Phillips MD [facility] DR [place] [address] Isabella Baker APRN [facility] [place] [address] documented as of this encounter Procedures Procedure [...] who have questions please contact the health landcare officer that requested your imaging first. ? Narrative 12/25/2020 4:12 PM EDT EXAMINATION: NM PET CT STANDARD SKULL BASE TO MID-THIGH CLINICAL HISTORY: Cancer of unknown primary, surveillance TECHNIQUE: Following IV injection of 25-ixymzf-1-deoxyglucose (FDG) a standard uptake of approximately 60 [...] primary, surveillance TECHNIQUE: Following IV injection of 37-xrijwi-7-deoxyglucose (FDG) astandard uptake of approximately 60 minutes, [...] patients who have questions please contactthe health landcare officer that requested your imaging first. Mary Cleaning [...] Arm documented in this encounter Care Teams Collections Attorney Relationship Specialty Start Date End Date Nataliya Messina MD [address] [facility] [place] [address] PCP - General 10/02/11 01/11/22 documented as of this encounter
--- OUTSIDE RECORDS SUMMARY | 2024-02-09 02:14 | XMS_ITS | Encounter Summary ---
Author Organization Formerly [facility] Address [facility] [place] [address] Care Team Providers Care Director Of Land Acquisition Name Role Phone Nataliya Messina MD Primary Care Provider [phone] Encounter Details Date Type Department Care Team (Late Contact Info) Description 07/10/2019 Orders [place] [address] Mariella Sarmiento MD [facility] [address] COPD, very severe Social History Tobacco Use [...] AM EDT Office Visit Hematology/Oncology at [address] [phone] Heber Phillips MD [facility] HEMATOLOGY [place] [address] Isabella Baker APRN [facility] [place] [address] documented as of this encounter Visit Diagnoses Diagnosis COPD, very severe Chronic airway obstruction, not elsewhere classified documented in this encounter Care Teams Director Of Land Acquisition Relationship Specialty Start Date End Date Nataliya Messina MD [address] [place] [address] PCP - General 10/02/11 01/11/22 documented as of this encounter
--- OUTSIDE RECORDS SUMMARY | 2024-02-09 02:14 | XMS_ITS | Encounter Summary ---
[place] [address] Care Team Providers Care Order Processing Clerk Name Role Phone Nataliya Messina MD Primary Care Provider [phone] [phone] Encounter Details Date Type Department Care Team (Late Contact Info) Description 10/20/2019 Telephone Hematology/Oncology at [address] [phone] Johana Slater Social History Tobacco Use Types [...] his labs that have been scheduled at [facility] for October 23 at 1230. He has been reminded that the appointment with Dr. Phillips will be a phone visit and he isamendable to a phone visit. documented in this encounter Plan of Treatment Upcoming Encounters Date Type Department Care Team ([facility] Contact Info) Description 03/28/2024 10:00 AM EDT Office Visit Hematology/Oncology at [address] [phone] Heber Phillips MD [facility] DR [place] [address] Isabella Baker APRN [facility] [place] [address] documented as of this encounter Visit Diagnoses Not on filedocumented in this encounter Care Teams Order Processing Clerk Relationship Specialty Start Date End Date Nataliya Messina MD [address] [facility] [facility] [address] [place], [place] [address] PCP - General 10/02/11 01/11/22 documented as of this encounter
--- OUTSIDE RECORDS SUMMARY | 2024-02-09 02:14 | XMS_ITS | Encounter Summary ---
[place] [address] Care Team Providers Care Boom Boss Name Role Phone Nataliya Messina MD Primary Care Provider [phone] Reason for Visit * Reason Onset Date Comments Other 07/10/2019 Faxed demographi cs, chart note and nebulizer order to [facility] fax for the [place], [place] office Encounter Details Date Type Department Care Team (Late Contact Info) Description 07/10/2019 Telephone [place] [address] Wen Ashford, RN Other (Faxed demographics, chart [facility] [place] [place] office) Social History Tobacco Use Types [...] AM EDT Office Visit Hematology/Oncology at [address] [phone] Heber Phillips MD [facility] DR [place] [address] Isabella Baker APRN [facility] [place] [address] documented as of this encounter Visit Diagnoses Not on filedocumented in this encounter Care Teams Boom Boss Relationship Specialty Start Date End Date Nataliya Messina MD [address] [place] [address] 1 [place] [address] PCP - General 10/02/11 01/11/22 documented as of this encounter
--- OUTSIDE RECORDS SUMMARY | 2024-02-09 02:14 | XMS_ITS | Encounter Summary ---
Author Organization [facility] [place] [address] Care Team Providers Care Law Office Manager Name Role Phone Nataliya Messina MD Primary Care Provider [phone] Reason for Visit * Reason Onset Date Comments Hemoptysis 06/20/2019 x 2 days Encounter Details Date Type Department Care Team (Late st Contact Info) Description 06/20/2019 Telephone Hematology/Oncology at [address] [phone] Kiley Silva RN Hemoptysis (x [...] He states he has notheard from the set rider about an upcoming appointment. I advised patient [...] AM EDT Office Visit Hematology/Oncology at [address] [phone] Heber Phillips MD [facility] [place] [address] Isabella Baker APRN [facility] [place] [address] documented as of this encounter Visit Diagnoses Not on filedocumented in this encounter Care Teams Law Office Manager Relationship Specialty Start Date End Date Nataliya Messina MD [address] [facility] 1 [place] [address] PCP - General 10/02/11 01/11/22 documented as of this encounter
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
--- OUTSIDE RECORDS SUMMARY | 2024-02-09 02:14 | XMS_ITS | Encounter Summary ---
Author Organization [facility]ly [facility] [place] [address] Care Team Providers Care System Support Administrator Name Role Phone Nataliya Messina MD Primary Care Provider [phone] Encounter Details Date Type Department Care Team (Late Contact Info) Description 10/20/2019 Telephone Hematology/Oncology at [address] [phone] Johana Slater Social History Tobacco Use Types [...] him to have labs on Wednesday at [facility] and to confirm his visit with Dr. Phillips will be a phone visit. documented in this encounter Plan of Treatment Upcoming Encounters Date Type Department Care Team (Late Contact Info) Description 03/28/2024 10:00 AM EDT Office Visit Hematology/Oncology at [address] [phone] Heber Phillips MD [facility] DR HEMATOLOGY [place] [address] Isabella Baker APRN [facility] [place] [address] documented as of this encounter Visit Diagnoses Not on filedocumented in this encounter Care Teams System Support Administrator Relationship Specialty Start Date End Date Nataliya Messina MD [address] [place] [address] [address] [place] [address] PCP - General 10/02/11 01/11/22 documented as of this encounter
--- OUTSIDE RECORDS SUMMARY | 2024-02-09 02:14 | XMS_ITS | Encounter Summary ---
Author Organization [facility] [place] [address] Care Team Providers Care Emt Intermediate Name Role Phone Nataliya Messina MD Primary Care Provider [phone] Reason for Referral * Diagnostic Test (Routine) - Closed Specialty Diagnoses / Procedures Referred By Contac t Referred To Contact Radiology Diagnoses Small cell lung cancer, right upper lobe Procedures NM PET CT Skull Base to Mid-thigh Heber Phillips MD [facility] DR HEMATOLOGY [place] [address] [place] [address] Referral ID Status Reason Start Date Expiration Date V isits Requested Visits Authorized [id number] Closed Specialty Service Requested 10/31/2019 05/02/2021 1 1 Encounter Details Date Type Department Care Team (Latest Contact Info) Description 10/24/2019 3:30 PM EDT TH Visit (TeleHealth) Hematology/Oncology at [address] [phone] Heber Phillips MD [facility] DR HEMATOLOGY [place] [address] Mary Cleaning RN SOB (shortness of breath); Small cell [...] exertion andcough with some phlegm. Follows with slots manager. Denies any pain. Denies any nausea, vomiting orpain. No fever or chills. No other focal complaints. PMH: No interval changes since last visit MD in 2013 status post 2 stents placement, [...] infarction MD about 6 years ago @ [facility] [place] ??? 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 Marital [...] file Gets together: Not on file Attends adventism service: Not on file Active member of [...] Social History Narrative Lives with his in [place], [place]. 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 [...] by mouth daily. 1 tablet Refills: 0 aadppgoshrf-pkzjemwzp-qgvkudwa 100-62.5-25 mcg Dsdv Inhale 1 puff into [...] including history of stroke, severe peripheralvascular disease, MD status post stent placement and COPD. His [...] pulmonary team Exertional dyspnea is getting worse. [place] better on prednisone in the beginning but after tapering off prednisone cough and dyspnea back. Refer him to slots manager as his slots manager had consult hospital retired Plan: 1. Brain [...] AM EDT Office Visit Hematology/Oncology at [address] [phone] Heber Phillips MD [facility] HEMATOLOGY [place] [address] Isabella Baker APRN [facility] [place] [address] documented as of this encounter Results * [...] lung cancer TECHNIQUE: Following IV injection of 50-fxgeyi-2-deoxyglucose (FDG) a standard uptake of approximately 60 [...] lung cancer TECHNIQUE: Following IV injection of 32-oiodpx-0-deoxyglucose (FDG) astandard uptake of approximately 60 minutes, [...] lobe documented in this encounter Care Teams Emt Intermediate Relationship Specialty Start Date End Date Nataliya Messina MD [address] [facility] 1 [place] [address] PCP - General 10/02/11 01/11/22 documented as of this encounter
--- OUTSIDE RECORDS SUMMARY | 2024-02-09 02:14 | XMS_ITS | Encounter Summary ---
Author Organization [facility] Address [facility] [place] [address] Care Team Providers Care Land Agent Name Role Phone Nataliya Messina MD Primary Care Provider [phone] Reason for Visit * Reason Onset Date Comments Medication Refill 07/17/2019 trelegy denied , change to nebulized medications Encounter Details Date Type Department Care Team (Late st Contact Info) Description 07/17/2019 Refill Pulmonology at [facility] [place] [address] Mariella Sarmiento MD [facility] [place] [address] COPD, very severe Social History Tobacco Use [...] Wen Ashford, RN, BSN Pulmonary Department [email or web address] Phone: [phone] Pager: [phone] documented in this encounter Plan of Treatment Upcoming Encounters Date Type Department Care Team (Late st Contact Info) Description 03/28/2024 10:00 AM EDT Office Visit Hematology/Oncology at [address] [phone] Heber Phillips MD [facility] DR [place] [address] Isabella Baker APRN [facility] [place] [address] documented as of this encounter Visit Diagnoses Diagnosis COPD, very severe Chronic airway obstruction, not elsewhere classified documented in this encounter Care Teams Land Agent Relationship Specialty Start Date End Date Nataliya Messina MD [address] [facility] [address] [address] PCP - General 10/02/11 01/11/22 documented as of this encounter
--- OUTSIDE RECORDS SUMMARY | 2024-02-09 02:14 | XMS_ITS | Encounter Summary ---
Author Organization [facility] Address [facility] [place] [address] Care Team Providers Care Securities Broker Name Role Phone Nataliya Messina MD Primary Care Provider [phone] Encounter Details Date Type Department Care Team (Late Contact Info) Description 01/03/2020 Ancillary Procedure [place] [phone] Heber Phillips MD [facility] HEMATOLOGY [place] [address] Social History Tobacco Use Types Packs/Day Years [...] AM EDT Office Visit Hematology/Oncology at [address] [phone] Heber Phillips MD [facility] HEMATOLOGY [place] [address] Isabella Baker APRN [facility] [place] [address] documented as of this encounter Procedures Procedure Name Priority Date/Time Associated Diagnosis Comments FILM LIBRARY STORAGE ONLY MR HEAD Routine 01/03/2020 12:00 AM EDT documented in this encounter Results * Film Library- Storage Only MR Head (01/03/2020 12:00 AM EDT) Narrative [facility] - 01/05/2020 8:54 AM EDT This exam is auto-finalizing. It's purpose is for storage only. Heber Phillips MD IMG FILM LIBRARY ORD ERABLES [place], [place] documented in this encounter Visit Diagnoses Not on filedocumented in this encounter Care Teams Securities Broker Relationship Specialty Start Date End Date Nataliya Messina MD [address] [place] [address] [address] [place] [address] PCP - General 10/02/11 01/11/22 documented as of this encounter
--- OUTSIDE RECORDS SUMMARY | 2024-02-09 02:14 | XMS_ITS | Encounter Summary ---
Author Organization [facility] [place] [address] Care Team Providers Care Apartment Property Manager Name Role Phone Nataliya Messina MD Primary Care Provider [phone] Reason for Visit * Reason Onset Date Comments Other 07/17/2019 reviewed medicat ion changes to nebulized rx's Encounter Details Date Type Department Care Team (Late st Contact Info) Description 07/17/2019 Telephone [place]ology [place] [phone] Wen Ashford, RN Other (reviewed medication changes [...] to Perez drug and nebulizer sent to [facility]. Explained what duonebs are and instructed to take 4 times daily. Hieu expressed understanding and denies further questions at this time. Wen Ashford, RN, BSN Pulmonary Department [email or web address] Phone: [phone] Pager: [phone] documented in this encounter Plan of Treatment Upcoming Encounters Date Type Department Care Team (Late st Contact Info) Description 03/28/2024 10:00 AM EDT Office Visit Hematology/Oncology at [address] [address] [facility] DR [place] [address] [facility] [place] [address] documented as of this encounter Visit Diagnoses Not on filedocumented in this encounter Care Teams Apartment Property Manager Relationship Specialty Start Date End Date Nataliya Messina MD [address] [place] [address] [address] [place] [address] PCP - General 10/02/11 01/11/22 documented as of this encounter
--- OUTSIDE RECORDS SUMMARY | 2024-02-09 02:14 | XMS_ITS | Encounter Summary ---
Author Organization [facility] [address] Care Team Providers Care Stage Technician Name Role Phone Nataliya Messina MD Primary Care Provider [phone] Encounter Details Date Type Department Care Team (Latest Contact Info) Description 07/10/2019 12:30 PM EST - 07/10/2019 11:59 PM EST Hospital En[place] [address] Mass of right lung Discharge Disposition: Home [...] AM EDT Office Visit Hematology/Oncology at [address] [phone] Heber Phillips MD [facility] DR HEMATOLOGY [place] [address] Isabella Baker APRN [facility] [place] [address] documented as of this encounter Procedures Procedure [...] lung documented in this encounter Care Teams Stage Technician Relationship Specialty Start Date End Date Nataliya Messina MD [address] [place] [address] [address] [place] [address] PCP - General 10/02/11 01/11/22 documented as of this encounter
--- OUTSIDE RECORDS SUMMARY | 2024-02-09 02:14 | XMS_ITS | Encounter Summary ---
Author Organization [facility] Address [facility] [place] [address] Care Team Providers Care Top Stop Attacher Name Role Phone Nataliya Messina MD Primary Care Provider [phone] Reason for Visit * Reason Onset Date Comments Medication Refill 07/11/2019 need new rx fo r budesonide with ICD code Encounter Details Date Type Department Care Team (Late Contact Info) Description 07/11/2019 [place] [address] Mariella Sarmiento MD [facility] [place] [address] COPD, very severe Social History Tobacco Use [...] AM EDT Office Visit Hematology/Oncology at [address] [phone] Heber Phillips MD [facility] HEMATOLOGY [place] [address] Isabella Baker APRN [facility] [place] [address] documented as of this encounter Visit Diagnoses Diagnosis COPD, very severe Chronic airway obstruction, not elsewhere classified documented in this encounter Care Teams Top Stop Attacher Relationship Specialty Start Date End Date Nataliya Messina MD [address] [place] [address] [address] PCP - General 10/02/11 01/11/22 documented as of this encounter
--- OUTSIDE RECORDS SUMMARY | 2024-02-09 02:14 | XMS_ITS | Encounter Summary ---
Author Organization [facility] Address [facility] [place] [address] Care Team Providers Care Filter Tip Catcher Name Role Phone Nataliya Messina MD Primary Care Provider [phone] [phone] Encounter Details Date Type Department Care Team (Late Contact Info) Description 07/07/2019 Orders [place] [address] Jem Laureano MD [facility] [place] [address] Mass of right lung Social History Tobacco [...] AM EDT Office Visit Hematology/Oncology at [address] [address] Heber Phillips MD [facility] [place] [address] Isabella Baker APRN [facility] [place] [address] documented as of this encounter Results * [...] lung documented in this encounter Care Teams Filter Tip Catcher Relationship Specialty Start Date End Date Nataliya Messina MD [address] [place] [address] PCP - General 10/02/11 01/11/22 documented as of this encounter
--- OUTSIDE RECORDS SUMMARY | 2024-02-09 02:14 | XMS_ITS | Encounter Summary ---
Author Organization Formerly [facility] Address [facility] [place] [address] Care Team Providers Care Orthopedic Radiologic Technologist Name Role Phone None Primary Care Provider Unavailabl e Reason for Visit * Reason Comments Medication Refill Encounter Details Date Type Department Care Team (Late Contact Info) Description 08/05/2019 [place] [address] Mariella Sarmiento MD [facility] [place] [address] Social History Tobacco Use Types Packs/Day Years [...] AM EDT Office Visit Hematology/Oncology at [address] [phone] Heber Phillips MD [facility] [place] [address] Isabella Baker APRN [facility] [place] [address] (work) documented as of this encounter Visit Diagnoses Not on filedocumented in this encounter Care Teams Orthopedic Radiologic Technologist Relationship Specialty Start Date End Date None None PCP - General 01/12/22 11/02/22 documented as of this encounter
--- OUTSIDE RECORDS SUMMARY | 2024-02-09 02:14 | XMS_ITS | Encounter Summary ---
Author Organization [facility] [place] [address] Care Team Providers Care Marble Helper Name Role Phone Nataliya Messina MD Primary Care Provider [phone] Reason for Visit * Diagnostic Test (Routine) - Closed Specialty Diagnoses / Procedures Referred By Contac t Referred To Contact Radiology Diagnoses Small cell lung cancer, right upper lobe Small cell lung cancer Procedures NM PET CT Skull Base to Mid-thigh Heber Phillips MD [facility] HEMATOLOGY [place] [address] [place] [address] Referral ID Status Reason Start Date Expiration Date V isits Requested Visits Authorized [id number] Closed Specialty Service Requested 03/05/2020 09/02/2021 1 1 Encounter Details Date Type Department Care Team (Latest Contact Info) Description 09/13/2020 10:43 AM EDT - 09/13/2020 11:59 PM EDT Hospital Encounter [place] [address] Heber Phillips MD [facility] HEMATOLOGY [place] [address] Discharge Disposition: Home Social History [...] AM EDT Office Visit Hematology/Oncology at [address] [phone] Heber Phillips MD [facility] DR HEMATOLOGY [place] [address] Isabella Baker APRN [facility] [place] [address] documented as of this encounter Procedures Procedure Name Priority Date/Time Associated Diagnosis Comments NM PET CT SKULL BASE TO MID-THIGH ([facility]) Routine 09/13/2020 1:59 PM EDT Small cell lung cancer, right upper lobe Small cell lung cancer POCT GLUCOSE Routine 09/13/2020 1:01 PM EDT documented in this encounter Results * POCT Glucose (09/13/2020 1:01 PM EDT) Glucose, POC 96 65 - 199 mg/dL [facility] Comment: Supplemental ranges: <140 mg/dL before meals <180 mg/dL all other times of the day Blood specimen (specimen) 09/13/2020 1:01 PM EDT 09/13/2020 1:01 PM EDT Heber Phillips MD POINT OF CARE TEST O RDERABLES [facility] [place] [address] documented in this encounter Visit Diagnoses Not on filedocumented in this encounter Care Teams Marble Helper Relationship Specialty Start Date End Date Nataliya Messina MD [address] [place] [address] PCP - General 10/02/11 01/11/22 documented as of this encounter
--- OUTSIDE RECORDS SUMMARY | 2024-02-09 02:14 | XMS_ITS | Encounter Summary ---
[place] [address] Care Team Providers Care Scalping Machine Operator Name Role Phone Nataliya Messina MD Primary Care Provider [phone] Encounter Details Date Type Department Care Team (Late Contact Info) Description 10/01/2020 [place] [phone] Latanya Murguia Social History Tobacco Use Types [...] AM EDT Office Visit Hematology/Oncology at [address] [phone] Heber Phillips MD [facility] DR HEMAT[place] [address] Isabella Baker APRN [facility] [place] [address] documented as of this encounter Visit Diagnoses Not on filedocumented in this encounter Care Teams Scalping Machine Operator Relationship Specialty Start Date End Date Nataliya Messina MD [address] [place] [address] PCP - General 10/02/11 01/11/22 documented as of this encounter
--- OUTSIDE RECORDS SUMMARY | 2024-02-09 02:14 | XMS_ITS | Encounter Summary ---
[place] [address] Care Team Providers Care Bottom Polisher Name Role Phone Nataliya Messina MD Primary Care Provider [phone] Encounter Details Date Type Department Care Team (Late Contact Info) Description 09/08/2019 Telephone [place] [phone] Carmenza Price, MEASUREMENT TECHNICIAN Social History Tobacco Use Types Packs/Day Years [...] Upcoming Encounters Date Type Department Care Team ([facility] Contact Info) Description 03/28/2024 10:00 AM EDT Office Visit Hematology/Oncology at [address] [phone] Heber Phillips MD [facility] DR HEMATOLOGY [place] [address] Isabella Baker APRN [facility] [place] [address] documented as of this encounter Visit Diagnoses Not on filedocumented in this encounter Care Teams Bottom Polisher Relationship Specialty Start Date End Date Nataliya Messina MD [address] [place] [address] PCP - General 10/02/11 01/11/22 documented as of this encounter
--- OUTSIDE RECORDS SUMMARY | 2024-02-09 02:14 | XMS_ITS | Encounter Summary ---
Author Organization Formerly [facility] [place] [address] Care Team Providers Care Fur Grader Name Role Phone Nataliya Messina MD Primary Care Provider [phone] Encounter Details Date Type Department Care Team (Late st Contact Info) Description 11/06/2019 10:20 AM EDT TH Visit (TeleHealth) Cardiology at [address] [address] Ramandeep Choudhary MD [address] [place] [address] DR CARDIOLOGY [place], [place] [address] Coronary artery disease involving bois forte heart, angina presence unspecified, unspecified vessel or [...] called COPD, J44.9 60 mL 12 ??? mcjzswqcamv-ccvolmrxx-vvmcpskw 100-62.5-25 mcg Disk with Device Inhale 1 [...] file Gets together: Not on file Attends restorationism service: Not on file Active member of [...] Social History Narrative Lives with his in [place], [place]. 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 [...] AM EDT Office Visit Hematology/Oncology at [address] [phone] Heber Phillips MD [facility] DR [place] [address] Isabella Baker APRN [facility] [place] [address] documented as of this encounter Visit Diagnoses Diagnosis Coronary artery disease involving bois forte heart, angina presence unspecified, unspecified vessel or lesion type documented in this encounter Care Teams Fur Grader Relationship Specialty Start Date End Date Nataliya Messina MD [address] [place] [address] PCP - General 10/02/11 01/11/22 documented as of this encounter
--- OUTSIDE RECORDS SUMMARY | 2024-02-09 02:14 | XMS_ITS | Encounter Summary ---
Author Organization [facility] [place] [address] Care Team Providers Care Cloud Administrator Name Role Phone Nataliya Messina MD Primary Care Provider [phone] Reason for Visit * Reason Onset Date Comments Other 07/26/2019 Stament of joyce prieto came back on the Trelegy Ellipta. Encounter Details Date Type Department Care Team (Late Contact Info) Description 07/26/2019 Telephone [place] [address] Carmenza Price, JANET Other (Stament of chrissy came back on [...] AM EDT Office Visit Hematology/Oncology at [address] [phone] Heber Phillips MD [facility] DR HEMATOLOGY [place] [address] Isabella Baker APRN [facility] [place] [address] documented as of this encounter Visit Diagnoses Not on filedocumented in this encounter Care Teams Cloud Administrator Relationship Specialty Start Date End Date Nataliya Messina MD [address] [place] [address] PCP - General 10/02/11 01/11/22 documented as of this encounter
--- OUTSIDE RECORDS SUMMARY | 2024-02-09 02:14 | XMS_ITS | Encounter Summary ---
[place] [address] Care Team Providers Care Dulite Machine Bluer Name Role Phone Nataliya Messina MD Primary Care Provider [phone] Encounter Details Date Type Department Care Team (Late Contact Info) Description 06/20/2019 Telephone [place] [phone] Jessica Butterfield Social History Tobacco Use Types [...] Upcoming Encounters Date Type Department Care Team ([facility] Contact Info) Description 03/28/2024 10:00 AM EDT Office Visit Hematology/Oncology at [address] [phone] Heber Phillips MD [facility] DR [place] [address] Isabella Baker APRN [facility] [place] [address] documented as of this encounter Visit Diagnoses Not on filedocumented in this encounter Care Teams Dulite Machine Bluer Relationship Specialty Start Date End Date Nataliya Messina MD [address] [place] [address] PCP - General 10/02/11 01/11/22 documented as of this encounter
--- OUTSIDE RECORDS SUMMARY | 2024-02-09 02:14 | XMS_ITS | Encounter Summary ---
Author Organization [facility] [place] [address] Care Team Providers Care Hot Box Operator Name Role Phone Nataliya Messina MD Primary Care Provider [phone] Reason for Referral * Consultation (Urgent) - Closed Specialty Diagnoses / Procedures Referred By Contac t Referred To Contact Pulmonology Diagnoses SOB (shortness of breath) Hemoptysis Small cell lung cancer, right upper lobe Heber Phillips MD [facility] [address] [place] [address] [facility] [address] [place] [phone] Referral ID Status Reason Start Date Expiration Date V isits Requested Visits Authorized [id number] Closed Consult, Test & Treat 06/20/2019 06/19/2020 1 1 Encounter Details Date Type Department Care Team (Late st Contact Info) Description 06/20/2019 Orders Only Hematology/Oncology at [address] [phone] Heber Phillips MD [facility] [place] [address] SOB (shortness of breath); Hemoptysis; [...] AM EDT Office Visit Hematology/Oncology at [address] [phone] Heber Phillips MD [facility] [place] [address] Isabella Baker APRN [facility] [place] [place] [address] Scheduled Referrals Name Type Priority Associated Diagnoses Order Schedule Referral to Pulmonology Outpatient Referral Routine SOB (shortness of breath) Hemoptysis Small cell lung cancer, right upper lobe Ordered: 06/20/2019 documented as of this encounter Visit Diagnoses Diagnosis SOB (shortness of breath) Shortness of breath Hemoptysis Hemoptysis, unspecified Small cell lung cancer, right upper lobe documented in this encounter Care Teams Hot Box Operator Relationship Specialty Start Date End Date Nataliya Messina MD [address] [place] [address] PCP - General 10/02/11 01/11/22 documented as of this encounter
--- OUTSIDE RECORDS SUMMARY | 2024-02-09 02:14 | XMS_ITS | Encounter Summary ---
[place] [address] Care Team Providers Care Upper Leather Sorter Name Role Phone Nataliya Messina MD Primary Care Provider [phone] Reason for Visit * Reason Onset Date Comments Other 08/31/2019 Encounter Details Date Type Department Care Team (Late st Contact Info) Description 08/31/2019 Telephone Hematology/Oncology at [address] [phone] Aleida Knight RN Other Social [...] getting covid-19 virus. Tried to reassure them [facility] is safe and open for patients [...] AM EDT Office Visit Hematology/Oncology at [address] [phone] Heber Phillips MD [facility] [place] [address] Isabella Baker APRN [facility] [place] [address] documented as of this encounter Visit Diagnoses Not on filedocumented in this encounter Care Teams Upper Leather Sorter Relationship Specialty Start Date End Date Nataliya Messina MD [address] [place] [address] 1 [place] [address] PCP - General 10/02/11 01/11/22 documented as of this encounter
--- OUTSIDE RECORDS SUMMARY | 2024-02-09 02:14 | XMS_ITS | Encounter Summary ---
Author Organization [facility] Address [facility] [place] [address] Care Team Providers Care Gasoline Engine Inspector Name Role Phone Nataliya Messina MD Primary Care Provider [phone] Encounter Details Date Type Department Care Team (Latest Contact Info) Description 02/21/2021 12:36 PM EDT - 02/21/2021 2:47 PM EDT Hospital Encounter [place] [address] Anshu Ewing MD [facility] [place] [address] Discharge Disposition: Home Social History Tobacco Use [...] occurs, please contact your Doctor. Please call [phone] before 8pm Mon-Fri with problems, questions or concerns. If you call after 8pm or on weekends, call the Hospital at [phone] and ask to speak to the Mobile Developer interventionist and the waterproof bag cutting machine operator will contact that person for you. When should you call for help? Call [phone] anytime you think you may need emergency [...] any problems. Where can you learn more? [facility] View your After Visit Summary and more online at [email or web address] If you would like to provide [...] cost to you. Content Version: 12.2 ?? 4125-7520 [employer]. Care instructions adapted under license by [facility]. If you have questions about a medical condition or this instruction, always ask your healthcare professional. [employer] disclaims any warranty or liability for your [...] AM EDT Office Visit Hematology/Oncology at [address] [phone] Heber Phillips MD [facility] DR [place] [address] Isabella Baker APRN [facility] [place] [address] documented as of this encounter Procedures Procedure Name Priority Date/Time Associated Diagnosis Comments SPECIMEN TO PATHOLOGY Routine 02/21/2021 2:06 PM EDT SPECIMEN TO PATHOLOGY Routine 02/21/2021 2:06 PM EDT SPECIMEN TO PATHOLOGY Routine 02/21/2021 2:06 PM EDT SURGICAL PATHOLOGY REPORT Routine 02/21/2021 1:39 PM EDT Upper Gi Endoscopy, Biopsy ([id number]) 02/21/2021 1:29 PM EDT abnormal PET scan 'new small focus on FDG uptake in the cecum' KATHLEEN Colonoscopy, Remv Lesn, Snare ([id number]) 02/21/2021 1:29 PM EDT abnormal PET scan 'new small focus on FDG uptake in the cecum' KATHLEEN UPPER GI ENDOSCOPY Routine 02/21/2021 1: 09 PM EDT COLONOSCOPY Routine 02/21/2021 1:08 PM EDT documented in this encounter Results * Specimen to Pathology (02/21/2021 2:06 PM EDT) AP Specimen 02/21/2021 2:06 PM EDT 02/21/2021 2:06 PM EDT [facility] - 02/21/2021 2:06 PM EDT Specimen requisition ordered. ??Separate Pathology report to follow Anshu Ewing MD PATHOLOGY/CYTOLOGY ORDERABLES Performing Organization Address [facility] Co de Phone Number [facility] [place] [address] * Specimen to Pathology (02/21/2021 2:06 PM EDT) AP Specimen 02/21/2021 2:06 PM EDT 02/21/2021 2:06 PM EDT Narrative [facility] - 02/21/2021 2:06 PM EDT Specimen requisition ordered. ??Separate Pathology report to follow Anshu Ewing MD PATHOLOGY/CYTOLOGY ORDERABLES Performing Organization Address [facility] [place] [address] * Specimen to Pathology (02/21/2021 2:06 PM EDT) AP Specimen 02/21/2021 2:06 PM EDT 02/21/2021 2:06 PM EDT Narrative [facility] - 02/21/2021 2:06 PM EDT Specimen requisition ordered. ??Separate Pathology report to follow Anshu Ewing MD PATHOLOGY/CYTOLOGY ORDERABLES Performing Organization Address [facility] [place] [address] * Surgical Pathology Report (02/21/2021 1:39 PM EDT) Final Diagnosis [id number] ? Location: 4T; EA07; A The signing [...] Angie Verified: ??02/28/2021 20:31 ??Pathologist Performed at: ??-[facility] Dept. of Pathology, [place], [place] SPECIMEN(S) SUBMITTED A - Stomach H. [...] labeled B1. ??sns 02/28/2021 8:31 PM EDT [facility] GI Biopsy 02/21/2021 1:39 PM EDT 02/21/2021 1:39 PM EDT GI Biopsy 02/21/2021 1:39 PM EDT 02/21/2021 1:39 PM EDT Anshu Ewing MD PATHOLOGY/CYTOLOGY ORDERABLES [facility] [place] [address] * UPPER GI ENDOSCOPY (02/21/2021 1:09 PM EDT) UPPER GI ENDOSCOPY [facility] Endoscopy Procedure Date: 02/21/2021 1:09 PM ? Patient Name: Hieu Tillman ? Date of : 1955 ? Age: 65 ? Order #: [id number] ? Instrument Name: [id number] ? Procedure: ? Upper GI endoscopy Indications: ? Iron deficiency anemia Providers: ? Anshu Ewing MD, Florentin Martinez ? BOB Arrieta, Amie Max, ? Peripheral Equipment Operator Referring MD: ?Nataliya Messina MD Medicines: ? [...] Procedure Code(s): ?? --- Professional --- ? 90152, Esophagogastroduod enoscopy, ? flexible, transoral; diagnostic, ? including collection of specimen(s) ? by brushing or washing, when ? performed (separate procedure) CPT copyright 2019 [employer] [place] [employer]. All rights reserved. The codes documented in this report are preliminary and upon jewelry engraver review may be revised to meet current compliance requirements. Attending Participation: ? I personally performed the entire procedure. ? ___ Anshu Ewing MD 02/21/2021 1:47:41 PM This report has been signed electronically. Number of Addenda: 0 Note Initiated On: 02/21/2021 1:09 PM PROVATION 02/21/2021 1:09 PM EDT Nataliya Messina MD GENERAL SURGICAL OR DERABLES PROVATION * COLONOSCOPY (02/21/2021 1:08 PM EDT) COLONOSCOPY [facility] Endoscopy Procedure Date: 02/21/2021 1:08 PM ? Patient Name: Hieu Tillman ? N: [id number] ? Date of : 1955 ? Age: 65 ? Order #: [id number] ? Instrument Name: [id number] ? Procedure: ? Colonoscopy Indications: ? High risk colon cancer surveillance: ? Personal history of colonic polyps, ? Incidental - Abnormal PET scan of the ? GI tract Providers: ? Anshu Ewing MD, Florentin Martinez ? , BOB, Amie Max, ? Peripheral Equipment Operator Referring : ?Nataliya Messina MD Medicines: ? [...] Procedure Code(s): ?? --- Professional --- ? 45474, Colonoscopy, flexible; with ? removal of tumor(s), polyp(s), or ? other lesion(s) by snare technique CPT copyright 2019 [employer] [place] [employer]. All rights reserved. The codes documented in this report are preliminary and upon jewelry engraver review may be revised to meet current [...] RN) documented in this encounter Care Teams Gasoline Engine Inspector Relationship Specialty Start Date End Date Nataliya Messina MD [address] [place] [address] 1 [place] [address] PCP - General 10/02/11 01/11/22 documented as of this encounter
--- OUTSIDE RECORDS SUMMARY | 2024-02-09 02:14 | XMS_ITS | Encounter Summary ---
Author Organization [facility] [place] [address] Care Team Providers Care Bandmill Operator Name Role Phone Nataliya Messina MD Primary Care Provider [phone] Reason for Referral * Diagnostic Test (Routine) - Closed Specialty Diagnoses / Procedures Referred By Contac t Referred To Contact Radiology Diagnoses Small cell lung cancer, right upper lobe Procedures NM PET CT Skull Base to Mid-thigh Heber Phillips MD [facility] [place] [address] [place] [address] Referral ID Status Reason Start Date Expiration Date V isits Requested Visits Authorized [id number] Closed Specialty Service Requested 10/31/2019 05/02/2021 1 1 Reason for Visit * Diagnostic Test (Routine) - Closed Specialty Diagnoses / Procedures Referred By Contac t Referred To Contact Radiology Diagnoses Small cell lung cancer, right upper lobe Procedures NM PET CT Skull Base to Mid-thigh Heber Phillips MD [facility] [place] [address] [place] [address] Referral ID Status Reason Start Date Expiration Date V isits Requested Visits Authorized [id number] Closed Specialty Service Requested 10/31/2019 05/02/2021 1 1 Encounter Details Date Type Department Care Team (Latest Contact Info) Description 02/29/2020 9:03 AM EDT Hospital Encounter Nuclear Medicine at [facility] [address] Heber Phillips MD [facility] [address] [place] [address] Small cell lung cancer, right upper lobe [...] AM EDT Office Visit Hematology/Oncology at [address] [phone] Heber Phillips MD [facility] HEMATOLOGY [place] [address] Isabella Baker APRN [facility] [place] [address] documented as of this encounter Procedures Procedure [...] lung cancer TECHNIQUE: Following IV injection of 44-efqbhi-2-deoxyglucose (FDG) a standard uptake of approximately 60 [...] lung cancer TECHNIQUE: Following IV injection of 53-fvhrvy-3-deoxyglucose (FDG) astandard uptake of approximately 60 minutes, [...] Arm documented in this encounter Care Teams Bandmill Operator Relationship Specialty Start Date End Date Nataliya Messina MD [address] [place] [address] [address] [place] [address] PCP - General 10/02/11 01/11/22 documented as of this encounter
--- OUTSIDE RECORDS SUMMARY | 2024-02-09 02:14 | XMS_ITS | Encounter Summary ---
Author Organization [place] [address] Care Team Providers Care Continuous Process Machine Operator Name Role Phone Nataliya Messina MD Primary Care Provider [phone] Reason for Visit * Reason Comments Follow-up 6 month f/u CAD Encounter Details Date Type Department Care Team (Late st Contact Info) Description 05/03/2020 10:20 AM EST Office Visit Cardiology at [address] [phone] Ramandeep Choudhary MD [address] [place] [address] CARDIOLOGY [place], [place] [id number] Essential hypertension; Coronary artery disease involving [place] heart without angina pectoris, unspecified vessel [...] file Gets together: Not on file Attends samaritan service: Not on file Active member of [...] Social History Narrative Lives with his in [place], [place]. 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 [...] AM EDT Office Visit Hematology/Oncology at [address] [phone] Heber Phillips MD [facility] [address] [place] [address] Isabella Baekr APRN [facility] [place] [address] documented as of this encounter Visit Diagnoses Diagnosis Essential hypertension Unspecified essential hypertension Coronary artery disease involving [place] heart without angina pectoris, unspecified vessel or lesion type documented in this encounter Care Teams Continuous Process Machine Operator Relationship Specialty Start Date End Date Nataliya Messina MD [address] [place] [address] PCP - General 10/02/11 01/11/22 documented as of this encounter
--- OUTSIDE RECORDS SUMMARY | 2024-02-09 02:14 | XMS_ITS | Encounter Summary ---
[place] [address] Care Team Providers Care Seo Assistant Name Role Phone Nataliya Messina MD Primary Care Provider Encounter Details Date Type Department Care Team (Late st Contact Info) Description 01/28/2021 Notes Only Hematology/Oncology at [address] [phone] Carlo Hassan RN Social History [...] 10:04 AM EDT Labs done 01/22 at [facility] reviewed by Dr Phillips. Plan remains the same- pt is to get GI referral forcolo/endo and we will see him back after that is done. [facility] aware and working on scheduling. Pt called and updated. documented in this encounter Plan of Treatment Upcoming Encounters Date Type Department Care Team (Late st Contact Info) Description 03/28/2024 10:00 AM EDT Office Visit Hematology/Oncology at [address] [phone] Heber Phillips MD [facility] DR [place] [address] Isabella Baker APRN [facility] [place] [address] documented as of this encounter Visit Diagnoses Not on filedocumented in this encounter Care Teams Seo Assistant Relationship Specialty Start Date End Date Nataliya Messina MD [address] [place] [address] [address] [place] [address] PCP - General 10/02/11 01/11/22 documented as of this encounter
--- OUTSIDE RECORDS SUMMARY | 2024-02-09 02:14 | XMS_ITS | Encounter Summary ---
Author Organization [facility] [place] [address] Care Team Providers Care Utility Service Worker Name Role Phone Nataliya Messina MD Primary Care Provider [phone] Reason for Visit * Diagnostic Test (Routine) - Closed Specialty Diagnoses / Procedures Referred By Contac t Referred To Contact Radiology Diagnoses Small cell lung cancer, right upper lobe Procedures NM PET CT Skull Base to Mid-thigh Heber Phillips MD [facility] [address] HEMATOLOGY [place] [address] [place] [address] Referral ID Status Reason Start Date Expiration Date V isits Requested Visits Authorized [id number] Closed Specialty Service Requested 10/31/2019 05/02/2021 1 1 Encounter Details Date Type Department Care Team (Latest Contact Info) Description 02/29/2020 9:04 AM EDT - 02/29/2020 11:59 PM EDT Hospital Encounter [place] [address] Heber Phillips MD [facility] HEMATOLOGY [place] [address] Discharge Disposition: Home Social History [...] AM EDT Office Visit Hematology/Oncology at [address] [phone] Heber Phillips MD [facility] [address] HEMATOLOGY [place] [address] Isabella Baker APRN [facility] [place] [address] documented as of this encounter Procedures Procedure Name Priority Date/Time Associated Diagnosis Comments NM PET CT SKULL BASE TO MID-THIGH (LCSR) Routine 02/29/2020 10:55 AM EDT Small cell lung cancer, right upper lobe POCT GLUCOSE Routine 02/29/2020 9:16 AM EDT documented in this encounter Results * POCT Glucose (02/29/2020 9:16 AM EDT) Glucose, POC 116 65 - 199 mg/dL [facility] Comment: Supplemental ranges: <140 mg/dL before meals <180 mg/dL all other times of the day Blood specimen (specimen) 02/29/2020 9:16 AM EDT 02/29/2020 9:16 AM EDT Heber Phillips MD POINT OF CARE TEST O RDERABLES Performing Organization Address City/State/[facility] Co de Phone Number [facility] [place] [place] [address] documented in this encounter Visit Diagnoses Not on filedocumented in this encounter Care Teams Utility Service Worker Relationship Specialty Start Date End Date Nataliya Messina MD [address] [place] [address] PCP - General 10/02/11 01/11/22 documented as of this encounter
--- OUTSIDE RECORDS SUMMARY | 2024-02-09 02:14 | XMS_ITS | Encounter Summary ---
Author Organization [facility] [place] [address] Care Team Providers Care Visual Stylist Name Role Phone Nataliya Messina MD Primary Care Provider [phone] Reason for Visit * Diagnostic Test (Routine) - Closed Specialty Diagnoses / Procedures Referred By Contac t Referred To Contact Radiology Diagnoses Small cell lung cancer, right upper lobe Procedures NM PET CT Skull Base to Mid-thigh Mary Cleaning, RN [address] [place] [address] [place] [address] [facility] [place] [address] Referral ID Status Reason Start Date Expiration Date V isits Requested Visits Authorized [id number] Closed Specialty Service Requested 09/17/2020 03/20/2022 1 1 Encounter Details Date Type Department Care Team (Latest Contact Info) Description 12/25/2020 11:46 AM EDT - 12/25/2020 11:59 PM EDT Hospital Encounter [place] [phone] Mary Cleaning stem teacher Disposition: Home Social History Tobacco Use Types [...] AM EDT Office Visit Hematology/Oncology at [address] [phone] Heber Phillips MD [facility] [place] [address] Isabella Baker APRN [facility] [place] [address] documented as of this encounter Procedures Procedure Name Priority Date/Time Associated Diagnosis Comments NM PET CT SKULL BASE TO MID-THIGH (LCSR) Routine 12/25/2020 1:33 PM EDT Small cell lung cancer, right upper lobe POCT GLUCOSE Routine 12/25/2020 12:04 PM EDT documented in this encounter Results * POCT Glucose (12/25/2020 12:04 PM EDT) Glucose, POC 111 65 - 199 mg/dL [facility] Comment: Supplemental ranges: <140 mg/dL before meals <180 mg/dL all other times of the day Blood 12/25/2020 12:0 4 PM EDT 12/25/2020 12:04 PM EDT Mary Cleaning RN POINT OF CARE TEST O RDERABLES [facility] [place] [address] documented in this encounter Visit Diagnoses Not on filedocumented in this encounter Care Teams Visual Stylist Relationship Specialty Start Date End Date Nataliya Messina MD [facility] [address] [place] [address] PCP - General 10/02/11 01/11/22 documented as of this encounter
--- OUTSIDE RECORDS SUMMARY | 2024-02-09 02:14 | XMS_ITS | Encounter Summary ---
Author Organization [facility] [place] [address] Care Team Providers Care Woodworking Shop Hand Name Role Phone Nataliya Messina MD Primary Care Provider Reason for Referral * Consultation (JULIEN) - Closed Specialty Diagnoses / Procedures Referred By Contac t Referred To Contact Gastroenterology Diagnoses Abnormal PET scan of colon Anemia, unspecified type Heber Phillips MD [facility] [address] [place] [address] [facility] [address] [place] [address] Referral ID Status Reason Start Date Expiration Date V isits Requested Visits Authorized [id number] Closed Consult, Test & Treat 01/21/2021 01/21/2022 1 1 Reason for Visit * Reason Comments Follow-up Encounter Details Date Type Department Care Team (Late st Contact Info) Description 01/21/2021 10:00 AM EDT Office Visit Hematology/Oncology at [address] [address] Heber Phillips MD [facility] DR [place] [address] Mary Cleaning RN Abnormal PET scan of colon; Anemia, [...] Subjective (01/20/21): Mr. Tillman returns to the [facility] for follow [...] PMH: No interval changes since last visit NE in 2013 status post 2 stents [...] infarction NE about 6 years ago @ [facility]-has stents ??? 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 He may need to see a communication lecturer again. Plan: 1. Blood work within a [...] AM EDT Office Visit Hematology/Oncology at [address] [address] Heber Phillips MD [facility] DR [place] [address] Isabella Baker APRN [facility] [place] [address] Scheduled Referrals Name Type Priority Associated Diagnoses [...] site documented in this encounter Care Teams Woodworking Shop Hand Relationship Specialty Start Date End Date Nataliya Messina MD [address] [place] [address] PCP - General 10/02/11 01/11/22 documented as of this encounter
--- OUTSIDE RECORDS SUMMARY | 2024-02-09 02:15 | XMS_ITS | Encounter Summary ---
Author Organization [facility] [place] [address] Care Team Providers Care Seaman Officer Name Role Phone Nataliya Messina MD Primary Care Provider [phone] Reason for Visit * Reason Comments Follow-up 4 month F/U CAD Encounter Details Date Type Department Care Team (Late st Contact Info) Description 10/25/2018 1:20 PM EDT Office Visit Cardiology at [address] [phone] Lauri Winn Jr., MD [address] [place] [phone] Hypertension, unspecified type; Coronary artery disease, angina presence unspecified, unspecified vessel or lesion type, unspecified whether [place] or transplanted heart; Hyperlipidemia, unspecified hyperlipidemia type [...] AM EDT Office Visit Hematology/Oncology at [address] [address] Heber Phillips MD [facility] DR HEMATOLOGY [place] [address] Isabella Baker APRN [facility] [place] [address] documented as of this encounter Visit Diagnoses Diagnosis Hypertension, unspecified type Coronary artery disease, angina presence unspecified, unspecified vessel or lesion type, unspecified whether [place] or transplanted heart Hyperlipidemia, unspecified hyperlipidemia type documented in this encounter Care Teams Seaman Officer Relationship Specialty Start Date End Date Nataliya Messina MD [address] [place] [address] PCP - General 10/02/11 01/11/22 documented as of this encounter
--- OUTSIDE RECORDS SUMMARY | 2024-02-09 02:15 | XMS_ITS | Encounter Summary ---
[place] [address] Care Team Providers Care Coremaker Supervisor Name Role Phone Nataliya Messina MD Primary Care Provider [phone] Reason for Visit * Reason Onset Date Comments Follow-up 03/28/2019 Encounter Details Date Type Department Care Team (Late Contact Info) Description 03/28/2019 Telephone Hematology/Oncology at [address] [phone] Aleida Knight RN Follow-up Social [...] AM EDT Office Visit Hematology/Oncology at [address] [address] Heber Phillips MD [facility] DR HEMATOLOGY [place] [address] Isabella Baker APRN [facility] [place] [address] documented as of this encounter Visit Diagnoses Not on filedocumented in this encounter Care Teams Coremaker Supervisor Relationship Specialty Start Date End Date Nataliya Messina MD [address] [place] [address] [address] [place], [place] [id number] PCP - General 10/02/11 01/11/22 documented as of this encounter
--- OUTSIDE RECORDS SUMMARY | 2024-02-09 02:15 | XMS_ITS | Encounter Summary ---
Author Organization [facility] Address [facility] [place] [address] Care Team Providers Care Ems Driver Name Role Phone Nataliya Messina MD Primary Care Provider Encounter Details Date Type Department Care Team (Late st Contact Info) Description 08/18/2018 7:05 PM EST Ancillary Procedure [place] [phone] Heber Phillips MD [facility] DR [place] [address] Social History Tobacco Use Types Packs/Day Years [...] AM EDT Office Visit Hematology/Oncology at [address] [phone] Heber Phillips MD [facility] DR [place] [address] Isabella Baker APRN [facility] [place] [address] documented as of this encounter Procedures Procedure Name Priority Date/Time Associated Diagnosis Comments FILM LIBRARY STORAGE ONLY MR HEAD Routine 08/18/2018 7:02 PM EST documented in this encounter Results * Film Library- Storage Only MR Head (08/18/2018 7:02 PM EST) Narrative [facility] - 08/18/2018 7:02 PM EST This exam is for storage only and is auto-finalizing. Heber Phillips MD IMG FILM LIBRARY ORD ERABLES [place], [place] documented in this encounter Visit Diagnoses Not on filedocumented in this encounter Care Teams Ems Driver Relationship Specialty Start Date End Date Nataliya Messina MD [address] [place] [address] [address] [facility] [address] [place] [address] PCP - General 10/02/11 01/11/22 documented as of this encounter
--- OUTSIDE RECORDS SUMMARY | 2024-02-09 02:15 | XMS_ITS | Encounter Summary ---
Author Organization [facility] [place] [address] Care Team Providers Care Decision Support Analyst Name Role Phone Nataliya Messina MD Primary Care Provider [phone] Reason for Referral * Diagnostic Test (Routine) - Closed Specialty Diagnoses / Procedures Referred By Contac t Referred To Contact Radiology Diagnoses Small cell lung cancer, right upper lobe Procedures NM PET CT Skull Base to Mid-thigh Heber Phillips MD [facility] [address] [place] [address] [place] [address] Referral ID Status Reason Start Date Expiration Date V isits Requested Visits Authorized [id number] Closed Specialty Service Requested 03/07/2019 03/06/2020 1 1 Reason for Visit * Diagnostic Test (Routine) - Closed Specialty Diagnoses / Procedures Referred By Contac t Referred To Contact Radiology Diagnoses Small cell lung cancer, right upper lobe Procedures NM PET CT Skull Base to Mid-thigh Heber Phillips MD [facility] [address] [place] [address] [place] [address] Referral ID Status Reason Start Date Expiration Date V isits Requested Visits Authorized [id number] Closed Specialty Service Requested 03/07/2019 03/06/2020 1 1 Encounter Details Date Type Department Care Team (Latest Contact Info) Description 05/25/2019 9:48 AM EST Hospital Encounter Nuclear Medicine at [facility] [place] [address] Heber Phillips MD [facility] [address] [place] [address] Small cell lung cancer, right upper lobe [...] AM EDT Office Visit Hematology/Oncology at [address] [phone] Heber Phillips MD [facility] DR [place] [address] Isabella Baker APRN [facility] [place] [address] documented as of this encounter Procedures Procedure [...] below. ? Electronically signed by: Tino Gallardo [facility] ([phone]), at 05/26/2019 10:35 AM Narrative 05/26/2019 10:35 AM EST EXAMINATION: NM PET CT SKULL BASE TO MID-THIGH ? CLINICAL HISTORY: Restaging of small cell lung cancer TECHNIQUE: Following IV injection of 16-otpjqh-6-deoxyglucose (FDG) a standard uptake of approximately 60 [...] lung cancer TECHNIQUE: Following IV injection of 80-qpswyq-7-deoxyglucose (FDG) astandard uptake of approximately 60 minutes, [...] number below. Electronically signed by: Tino Gallardo [facility]([phone]), at 05/26/2019 10:35 AM Heber Phillips MD IMG PET ORDERABLES [...] mCi documented in this encounter Care Teams Decision Support Analyst Relationship Specialty Start Date End Date Nataliya Messina MD [address] [place] [address] PCP - General 10/02/11 01/11/22 documented as of this encounter
--- OUTSIDE RECORDS SUMMARY | 2024-02-09 02:15 | XMS_ITS | Encounter Summary ---
Author Organization Formerly [facility] Address [facility] [place] [address] Care Team Providers Care Quantitative Research Analyst Name Role Phone Nataliya Messina MD Primary Care Provider [phone] Encounter Details Date Type Department Care Team (Late Contact Info) Description 08/15/2018 Orders Only [place]ematology [place] [address] Heber Phillips MD [facility] HEMATOLOGY [place] [address] Social History Tobacco Use Types Packs/Day Years [...] AM EDT Office Visit Hematology/Oncology at [address] [phone] Heber Phillips MD [facility] HEMATOLOGY [place] [address] Isabella Baker APRN [facility] [place] [address] documented as of this encounter Visit Diagnoses Not on filedocumented in this encounter Care Teams Quantitative Research Analyst Relationship Specialty Start Date End Date Nataliya Messina MD [address] [place] [address] PCP - General 10/02/11 01/11/22 documented as of this encounter
--- OUTSIDE RECORDS SUMMARY | 2024-02-09 02:15 | XMS_ITS | Encounter Summary ---
Author Organization [facility] Address [facility] [place] [address] Care Team Providers Care Security Assurance Analyst Name Role Phone Nataliya Messina MD Primary Care Provider [phone] Encounter Details Date Type Department Care Team (Late Contact Info) Description 03/09/2019 Refill Hematology/Oncology at [address] [phone] Heber Phillips MD [facility] [place] [address] Small cell lung cancer, right upper lobe [...] AM EDT Office Visit Hematology/Oncology at [address] [phone] Heber Phillips MD [facility] HEMATOLOGY [place] [address] Isabella Baker APRN [facility] [place] [address] documented as of this encounter Visit Diagnoses Diagnosis Small cell lung cancer, right upper lobe documented in this encounter Care Teams Security Assurance Analyst Relationship Specialty Start Date End Date Nataliya Messina MD [address] [facility] [address] [place] [address] PCP - General 10/02/11 01/11/22 documented as of this encounter
--- OUTSIDE RECORDS SUMMARY | 2024-02-09 02:15 | XMS_ITS | Encounter Summary ---
Author Organization [facility] [address] Care Team Providers Care Application Support Technician Name Role Phone Nataliya Messina MD Primary Care Provider [phone] Reason for Visit * Diagnostic Test (Routine) - Closed Specialty Diagnoses / Procedures Referred By Contac t Referred To Contact Radiology Diagnoses Small cell lung cancer, right upper lobe Procedures NM PET CT Skull Base to Mid-thigh Heber Phillips MD [facility] DR HEMATOLOGY [place] [address] [place] [address] Referral ID Status Reason Start Date Expiration Date V isits Requested Visits Authorized [id number] Closed Specialty Service Requested 03/07/2019 03/06/2020 1 1 Encounter Details Date Type Department Care Team (Latest Contact Info) Description 05/25/2019 9:49 AM EST - 05/25/2019 11:59 PM [facility] Hospital Encounter [place] [address] Heber Phillips MD [facility] DR HEMATOLOGY [place] [address] Discharge Disposition: Home Social History [...] AM EDT Office Visit Hematology/Oncology at [address] [phone] Heber Phillips MD [facility] DR HEMATOLOGY [place] [address] Isabella Baker APRN [facility] [place] [address] documented as of this encounter Procedures Procedure Name Priority Date/Time Associated Diagnosis Comments NM PET CT SKULL BASE TO MID-THIGH (LCSR) Routine 05/25/2019 11:33 AM EST Small cell lung cancer, right upper lobe POCT GLUCOSE Routine 05/25/2019 10:03 AM EST documented in this encounter Results * POCT Glucose (05/25/2019 10:03 AM EST) Glucose, POC 113 65 - 199 mg/dL [facility] Comment: Supplemental ranges: <140 mg/dL before meals <180 mg/dL all other times of the day Blood specimen (specimen) 05/25/2019 10:03 AM EST 05/25/2019 10:03 AM EST Heber Phillips MD POINT OF CARE TEST O RDERABLES [facility] [place] [address] documented in this encounter Visit Diagnoses Not on filedocumented in this encounter Care Teams Application Support Technician Relationship Specialty Start Date End Date Nataliya Messina MD [address] [place] [address] PCP - General 10/02/11 01/11/22 documented as of this encounter
--- OUTSIDE RECORDS SUMMARY | 2024-02-09 02:15 | XMS_ITS | Encounter Summary ---
[place] [address] Care Team Providers Care Teletypesetter Monitor Name Role Phone Nataliya Messina MD Primary Care Provider [phone] Encounter Details Date Type Department Care Team (Latest Contact Info) Description 01/23/2019 11:25 AM EDT Laboratory Appointment Lab [address] [place] [address] Small cell lung cancer, right [...] AM EDT Office Visit Hematology/Oncology at [address] [phone] Heber Phillips MD [facility] [address] [place] [address] Isabella Baker APRN [facility] [place] [address] documented as of this encounter Procedures Procedure Name Priority Date/Time Associated Diagnosis Comments HEMOGRAM Routine 01/23/2019 11:34 AM EDT Small cell lung cancer, right upper lobe DIFFERENTIAL, AUTOMATED Routine 01/23/2019 11:34 AM EDT Small cell lung cancer, right upper lobe CBC (WITH DIFF) Routine 01/23/2019 11:34 AM EDT Small cell lung cancer, right upper lobe COMPREHENSIVE METABOLIC PANEL Routine 01/23/2019 11:34 AM EDT Small cell lung cancer, right upper lobe documented in this encounter Results * (ABNORMAL) Differential, Automated (01/23/2019 11:34 AM EDT) Neutrophil % 93.2 % [facility] Neutrophil Absolute 11.40(H) 1.70 - 6.10 x10(3)/mc L [facility] Lymph % 2.7 % [facility] Lymphocytes Abs 0.3(L) 0.9 - 3.2 x10(3)/mc L [facility] Monocyte % 2.9 % [facility] Monocyte Abs 0.4 0.3 - 0.9 x10(3)/mc L [facility] Eos % 0.0 % [facility] Eosinophils Abs 0.0 0.0 - 0.4 x10(3)/mc L [facility] Basophil % 0.1 % [facility] Baso Absolute 0.0 0.0 - 0.1 x10(3)/mc L [facility] Immature Gran % 1.10 % [facility] Comment: Immature granulocytes(IG's)percentage and absolute count will include metamyelocytes, myelocytes, and promyelocytes. Blood smears from CBCs yielding IG's will be scanned manually for concordance. If this scan disagrees with the automated IG or if promyelocytes are noted, a manual differential will be performed. Immature Gran Absolute 0.13(H) 0.00 - 0.04 x10(3)/mc L [facility] Blood specimen (specimen) 01/23/2019 11:34 AM EDT 01/23/2019 11:42 AM EDT Narrative Resulting Agency Comment Spec In Lab Heber Phillips MD HEMATOLOGY ORDERABLE S Performing Organization Address City/State/[facility] Co de Phone Number [facility] [place] [address] * (ABNORMAL) Hemogram (01/23/2019 11:34 AM EDT) White Blood Cell 12.2(H) 4.0 - 9.5 x10(3)/[facility] Red Blood Cell 4.81 4.58 - 5.54 x10(6)/[facility] Hemoglobin 13.8 13.7 - 16.5 gm/dL [facility] Hematocrit 40.1(L) 40.5 - 48.5 % [facility] Mean Cell Volume 83.4 82.9 - 93.1 fL [facility] Mean Cell Hemoglobin 28.7 27.5 - 32.1 pg [facility] Mean Cell Hemoglobin Concentration 34.4 32.0 - 35.7 gm/dL [facility] Platelet 400(H) 145 - 357 x10(3)/[facility] RDW Standard Deviation 44.7 36.0 - 45.0 [facility] RDW coefficient of variation 14.6(H) 11.4 - 13.8 % [facility] Mean Platelet Volume 8.9 7.6 - 12.9 [facility] NRBC% auto 0.0 % [facility] NRBC Absolute 0.000 0.000 - 0.000 x10(3)/[facility] Blood specimen (specimen) 01/23/2019 11:34 AM EDT 01/23/2019 11:42 AM EDT Narrative Resulting Agency Comment Spec In Lab Heber Phillips MD HEMATOLOGY ORDERABLE S [facility] [place] [address] * (ABNORMAL) Comprehensive metabolic panel (non-fasting) (01/23/2019 11:34 AM EDT) Glucose 182 65 - 199 mg/dL [facility] Comment:Diabetes: >=200 mg/d L plus symptoms Blood Urea Nitrogen 18 10 - 20 mg/dL [facility] Creatinine 0.99 0.80 - 1.50 mg/dL [facility] Sodium 130(L) 135 - 145 mmol/L [facility] Potassium 4.3 3.5 - 5.0 mmol/L [facility] Comment: Please note: ??Patients with WBC >100,000 may have falsely elevated Potassium levels. ??For accurate Potassium quantification in these patients send serum separator tube (gold top) for subsequent determinations. ??Contact the Clinical Chemistry Laboratory if there are any questions. Chloride 91(L) 98 - 107 mmol/L [facility] Carbon Dioxide 23 22 - 31 mmol/L [facility] Anion Gap 16(H) 5 - 15 mmol/L [facility] Calcium 9.8 8.5 - 10.5 mg/dL [facility] Protein, Total 7.5 6.1 - 8.0 gm/dL [facility] Albumin 4.6 3.2 - 5.2 gm/dL [facility] Aspartate Aminotransferase 20 0 - 39 unit/L [facility] Alanine Aminotransferase 25 0 - 55 unit/L [facility] Alkaline Phosphatase 104 40 - 130 unit/L [facility] Bilirubin, Total 0.3 0.2 - 1.3 mg/dL [facility] Est Glomerular Filtration Rate 80 >=60 mL/min/1. 73 m?? [facility] Comment: The eGFR was calculated using the CKD-EPI equation. As with all creatinine based estimates of kidney function, eGFR values calculated with the CKD-EPI equation are not accurate in patients with acute kidney failure, extremes of body mass or the acutely ill. http://Svpply/[email or web address] eGFR 93 >=60 mL/min/1. 73 m?? [facility] Comment: The eGFR was calculated using the CKD-EPI equation. As with all creatinine based estimates of kidney function, eGFR values calculated with the CKD-EPI equation are not accurate in patients with acute kidney failure, extremes of body mass or the acutely ill. [email or web address]://Svpply/[email or web address] Blood specimen (specimen) 01/23/2019 11:34 AM EDT 01/23/2019 11:42 AM EDT Narrative Resulting Agency Comment Spec In Lab Heber Phillips MD CHEMISTRY ORDERABLES [facility] [place] [address] documented in this encounter Visit Diagnoses Diagnosis Small cell lung cancer, right upper lobe documented in this encounter Care Teams Teletypesetter Monitor Relationship Specialty Start Date End Date Nataliya Messina MD [address] [facility] [place] [address] PCP - General 10/02/11 01/11/22 documented as of this encounter
--- OUTSIDE RECORDS SUMMARY | 2024-02-09 02:15 | XMS_ITS | Encounter Summary ---
Author Organization [facility] Address [facility] [place] [address] Care Team Providers Care Balloon Seller Name Role Phone Nataliya Messina MD Primary Care Provider [phone] Encounter Details Date Type Department Care Team (Late st Contact Info) Description 05/26/2018 3:00 PM EST Office Visit Hematology/Oncology at [address] [phone] Heber Phillips MD [facility] [place] [address] Small cell lung cancer, right upper lobe [...] PMH: No interval changes since last visit [place] in 2013 status post 2 stents placement, [...] infarction [place] about 6 years ago [facility] [...] 1-2 beers occasionally, 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 Marital [...] Social History Narrative Lives with his in [place], [place]. 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 [...] AM EDT Office Visit Hematology/Oncology at [address] [phone] Heber Phillips MD [facility] [address] [place] [address] Isabella Baker APRN [facility] [place] [place] [address] documented as of this encounter Visit Diagnoses Diagnosis Small cell lung cancer, right upper lobe- Primary documented in this encounter Care Teams Balloon Seller Relationship Specialty Start Date End Date Nataliya Messina MD [address] [place] [address] PCP - General 10/02/11 01/11/22 documented as of this encounter
--- OUTSIDE RECORDS SUMMARY | 2024-02-09 02:15 | XMS_ITS | Encounter Summary ---
Author Organization [facility] [place] [address] Care Team Providers Care Seed Service Advisor Name Role Phone Nataliya Messina MD Primary Care Provider [phone] Reason for Visit * Reason Onset Date Comments Other 02/23/2019 Encounter Details Date Type Department Care Team (Late st Contact Info) Description 02/23/2019 Telephone Hematology/Oncology at [address] [phone] Aleida Knight RN Other Social [...] AM EDT Office Visit Hematology/Oncology at [address] [phone] Heber Phillips MD [facility] DR [place] [address] Isabella Baker APRN [facility] [place] [address] documented as of this encounter Visit Diagnoses Not on filedocumented in this encounter Care Teams Seed Service Advisor Relationship Specialty Start Date End Date Nataliya Messina MD [address] [place] [address] [facility] [place] [address] PCP - General 10/02/11 01/11/22 documented as of this encounter
--- OUTSIDE RECORDS SUMMARY | 2024-02-09 02:15 | XMS_ITS | Encounter Summary ---
Author Organization [facility] [place] [address] Care Team Providers Care Clinical Project Assistant Name Role Phone Nataliya Messina MD Primary Care Provider [phone] Reason for Visit * Reason Comments Follow-up 6 month f/u CAD Encounter Details Date Type Department Care Team (Late st Contact Info) Description 05/19/2019 10:20 AM EST Office Visit Cardiology at [address] [phone] Ramandeep Choudhary MD [address] [place] [address] CARDIOLOGY [place], [place] [id number] Coronary artery disease involving assiniboine and sioux heart, angina presence unspecified, unspecified vessel or [...] with only one nitro 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 for [...] AM EDT Office Visit Hematology/Oncology at [address] [phone] Heber Phillips MD [facility] DR HEMATOLOGY [place] [address] Isabella Baker APRN [facility] [place] [address] documented as of this encounter Procedures Procedure [...] (Bezet) 442 ms MUSE SYSTEM Calculated P Hamilton 73 degrees MUSE SYSTEM Calculated R Hamilton 69 degrees MUSE SYSTEM Calculated T Hamilton 78 degrees MUSE SYSTEM INTERPRETATION Normal sinus rhythm Normal ECG When compared with ECG of 28-DEC-2017 16:53, No significant change was found Confirmed by MD Dia Daniel ([id number]) on 05/19/2019 12:47:09 PM MUSE SYSTEM 05/19/2019 10:0 7 AM EST 05/19/2019 12:47 PM EST Unknown ECG ORDERABLES PAVO SYSTEM documented in this encounter Visit Diagnoses Diagnosis Coronary artery disease involving assiniboine and sioux heart, angina presence unspecified, unspecified vessel or lesion type Essential hypertension Unspecified essential hypertension Hyperlipidemia, unspecified hyperlipidemia type documented in this encounter Care Teams Clinical Project Assistant Relationship Specialty Start Date End Date Nataliya Messina MD [address] [place] [address] PCP - General 10/02/11 01/11/22 documented as of this encounter
--- OUTSIDE RECORDS SUMMARY | 2024-02-09 02:15 | XMS_ITS | Encounter Summary ---
Author Organization [facility] [place] [address] Care Team Providers Care Journeyman Welder Name Role Phone Nataliya Messina MD Primary Care Provider [phone] Reason for Referral * Diagnostic Test (Routine) - Closed Specialty Diagnoses / Procedures Referred By Contac t Referred To Contact Radiology Diagnoses Small cell lung cancer, right upper lobe Procedures CT Chest Abdomen Pelvis w Contrast (Generic) Heber Phillips MD [facility] DR HEMATOLOGY [place] [address] [facility] [place] [address] Referral ID Status Reason Start Date Expiration Date V isits Requested Visits Authorized [id number] Closed Specialty Service Requested 10/18/2018 10/18/2019 1 1 Reason for Visit * Diagnostic Test (Routine) - Closed Specialty Diagnoses / Procedures Referred By Contac t Referred To Contact Radiology Diagnoses Small cell lung cancer, right upper lobe Procedures CT Chest Abdomen Pelvis w Contrast (Generic) Heber Phillips MD [facility] DR HEMATOLOGY [place] [address] [facility] [place] [address] Referral ID Status Reason Start Date Expiration Date V isits Requested Visits Authorized [id number] Closed Specialty Service Requested 10/18/2018 10/18/2019 1 1 Encounter Details Date Type Department Care Team (Latest Contact Info) Description 01/23/2019 11:07 AM EDT - 01/23/2019 11:59 PM EDT Hospital Encounter CT Scan at [facility] [place] [address] Heber Phillips MD [facility] DR HEMATOLOGY [place] [address] Small cell lung cancer, right upper lobe [...] AM EDT Office Visit Hematology/Oncology at [address] [phone] Heber Phillips MD [facility] DR HEMATOLOGY [place] [address] Isabella Baker APRN [facility] [place] [address] documented as of this encounter Procedures Procedure [...] administration of contrast. Administered 91.0 ml of [id number] mg/ml. Oral contrast was administered. COMPARISON: PET [...] below. Electronically signed by: Pushpa Arceo [facility] [place] ([phone]),at 01/23/2019 3:50 PM Heber Phillips MD IMG [...] mLs documented in this encounter Care Teams Journeyman Welder Relationship Specialty Start Date End Date Nataliya Messina MD [address] [facility] [address] [facility] 1 [place] [address] PCP - General 10/02/11 01/11/22 documented as of this encounter
--- OUTSIDE RECORDS SUMMARY | 2024-02-09 02:15 | XMS_ITS | Encounter Summary ---
[place] [address] Care Team Providers Care Test Baker Name Role Phone Nataliya Messina MD Primary Care Provider [phone] Encounter Details Date Type Department Care Team (Late Contact Info) Description 08/18/2018 Orders Only Hematology [place] [address] Monica Smith Social History Tobacco Use Types [...] AM EDT Office Visit Hematology/Oncology at [address] [phone] Heber Phillips MD [facility] [place] [address] Isabella Baker APRN [facility] [place] [place] [address] documented as of this encounter Visit Diagnoses Not on filedocumented in this encounter Care Teams Test Baker Relationship Specialty Start Date End Date Nataliya Messina MD [address] [place] [address] PCP - General 10/02/11 01/11/22 documented as of this encounter
--- OUTSIDE RECORDS SUMMARY | 2024-02-09 02:15 | XMS_ITS | Encounter Summary ---
Author Organization [facility] [place] [address] Care Team Providers Care Last Dipper Name Role Phone Nataliya Messina MD Primary Care Provider [phone] Reason for Referral * Consultation (Routine) - Closed Specialty Diagnoses / Procedures Referred By Contac t Referred To Contact Pulmonology Diagnoses Small cell lung cancer, right upper lobe SOB (shortness of breath) Chronic cough Post-radiation pneumonitis Heber Phillips MD [facility] DR HEMATOLOGY [place] [address] [facility] Pulmonology [address] [place] [phone] Referral ID Status Reason Start Date Expiration Date V isits Requested Visits Authorized [id number] Closed Consult, Test & Treat 06/06/2019 06/05/2020 1 1 * Diagnostic Test (Routine) - Closed Specialty Diagnoses / Procedures Referred By Contac t Referred To Contact Radiology Diagnoses Small cell lung cancer, right upper lobe Procedures NM PET CT Skull Base to Mid-thigh Heber Phillips MD [facility] DR HEMATOLOGY [place] [address] [facility] [place] [address] Referral ID Status Reason Start Date Expiration Date V isits Requested Visits Authorized [id number] Closed Specialty Service Requested 06/06/2019 12/05/2020 1 1 Reason for Visit * Reason Comments Follow-up Encounter Details Date Type Department Care Team (Late st Contact Info) Description 06/06/2019 2:00 PM EST Office Visit Hematology/Oncology at [address] [phone] Heber Phillips MD [facility] DR HEMATOLOGY [place] [address] Mary Claening RN Small cell lung cancer, right upper [...] PMH: No interval changes since last visit [place] in 2013 status post 2 stents placement, [...] radiating to right leg ??? Myocardial infarction [place] about 6 years ago @ [facility]-has stents ??? 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 Marital [...] Social History Narrative Lives with his in [place], [place]. 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 [...] including history of stroke, severe peripheralvascular disease, [place] status post stent placement and COPD. His [...] #Dyspnea/dry cough: Exertional dyspnea is getting worse. [place] better on prednisone in the beginningbut after tapering off prednisone cough and dyspnea back. Refer him to medical physics researcher as his medical physics researcher had consult hospital retired Plan: 1. Referral to medical physics researcher 2 Next visit with CBc, CMP and PET scan in 3 months The plan was discussed with the patient in details. All questions were answered to patient's satisfaction. documented in this encounter Plan of Treatment Upcoming Encounters Date Type Department Care Team (Late st Contact Info) Description 03/28/2024 10:00 AM EDT Office Visit Hematology/Oncology at [address] [phone] Heber Phillips MD [facility] DR HEMATOLOGY [place] [address] Isabella Baker APRN [facility] [place] [address] Scheduled Referrals Name Type Priority Associated Diagnoses [...] below. ? Electronically signed by: Tino Gallardo [facility] ([phone]), at 10/16/2019 1:50 PM Narrative 10/16/2019 1:50 PM EDT EXAMINATION: NM PET CT SKULL BASE TO MID-THIGH ? CLINICAL HISTORY: Small cell lung cancer, restaging exam. TECHNIQUE: Following IV injection of 58-afymrq-1-deoxyglucose (FDG) a standard uptake of approximately 60 [...] restaging exam. TECHNIQUE: Following IV injection of 37-rnrmfs-7-deoxyglucose (FDG) astandard uptake of approximately 60 minutes, [...] number below. 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
--- OUTSIDE RECORDS SUMMARY | 2024-02-09 02:15 | XMS_ITS | Encounter Summary ---
Author Organization [facility] [place] [address] Care Team Providers Care Panel Installer Name Role Phone Nataliya Messina MD Primary Care Provider [phone] Reason for Referral * Diagnostic Test (Routine) - Closed Specialty Diagnoses / Procedures Referred By Contac t Referred To Contact Radiology Diagnoses Small cell lung cancer, right upper lobe Procedures CT Chest Abdomen Pelvis w Contrast (Generic) Heber Phillips MD [facility] [address] [place] [address] [facility] [place] [address] Referral ID Status Reason Start Date Expiration Date V isits Requested Visits Authorized [id number] Closed Specialty Service Requested 10/18/2018 10/18/2019 1 1 Encounter Details Date Type Department Care Team (Late st Contact Info) Description 10/18/2018 9:00 AM EDT Office Visit Hematology/Oncology at [address] [phone] Heber Phillips MD [facility] DR [place] [address] Small cell lung cancer, right [...] infarction [place] about 6 years ago @ [facility]-has stents ??? 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 Marital [...] file Gets together: Not on file Attends judaism service: Not on file Active member of [...] Social History Narrative Lives with his in [place], [place]. 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 [...] AM EDT Office Visit Hematology/Oncology at [address] [phone] Heber Phillips MD [facility] DR [place] [address] Isabella Baker APRN [facility] [place] [address] documented as of this encounter Results * [...] administration of contrast. Administered 91.0 ml of [id number] mg/ml. Oral contrast was administered. COMPARISON: PET [...] number below. Electronically signed by: Pushpa Arceo [facility] ([phone]),at 01/23/2019 3:50 PM Heber Phillips MD IMG CT ORDERABLES documented in this encounter Visit Diagnoses Diagnosis Small cell lung cancer, right upper lobe Small cell lung cancer Malignant neoplasm of bronchus and lung, unspecified site SOB (shortness of breath) Shortness of breath Small cell lung cancer, right upper lobe documented in this encounter Care Teams Panel Installer Relationship Specialty Start Date End Date Nataliya Messina MD [address] [place] [address] PCP - General 10/02/11 01/11/22 documented as of this encounter
--- OUTSIDE RECORDS SUMMARY | 2024-02-09 02:15 | XMS_ITS | Encounter Summary ---
Author Organization [facility] [place] [address] Care Team Providers Care Software Client Architect Name Role Phone Nataliya Messina MD Primary Care Provider [phone] Reason for Referral * Diagnostic Test (Routine) - Closed Specialty Diagnoses / Procedures Referred By Contac t Referred To Contact Radiology Diagnoses Small cell lung cancer, right upper lobe Procedures PET CT Carter Skull Base to Mid-Thigh Heber Phillips MD [facility] [place] [address] [place] [address] Referral ID Status Reason Start Date Expiration Date V isits Requested Visits Authorized [id number] Closed Specialty Service Requested 09/27/2018 09/27/2019 1 1 Reason for Visit * Diagnostic Test (Routine) - Closed Specialty Diagnoses / Procedures Referred By Contac t Referred To Contact Radiology Diagnoses Small cell lung cancer, right upper lobe Procedures PET CT Carter Skull Base to Mid-Thigh Heber Phillips MD [facility] [place] [address] [facility] [place] [address] Referral ID Status Reason Start Date Expiration Date V isits Requested Visits Authorized [id number] Closed Specialty Service Requested 09/27/2018 09/27/2019 1 1 Encounter Details Date Type Department Care Team (Latest Contact Info) Description 10/14/2018 11:00 AM EDT - 10/14/2018 11:59 PM EDT Hospital Encounter [place] [address] Heber Phillips MD [facility] [place] [address] Small cell lung cancer, right upper lobe [...] AM EDT Office Visit Hematology/Oncology at [address] [phone] Heber Phillips MD [facility] [place] [address] Isabella Baker APRN [facility] [place] [address] documented as of this encounter Procedures Procedure [...] below. ? Electronically signed by: Tino Gallardo [facility] ([phone]), at 10/14/2018 3:26 PM Narrative 10/14/2018 3:26 PM EDT EXAMINATION: PET CT CARTER SKULL BASE TO MID-THIGH CLINICAL HISTORY: Restaging of limited stage small cell lung cancer, status post concurrent chemoradiation TECHNIQUE: Following IV injection of 50-qkrwzm-0-deoxyglucose (FDG) a standard uptake of approximately 60 [...] tip terminating in the proximal right atrium. [place] coronary artery and aortic calcification. Note of [...] concurrent chemoradiation TECHNIQUE: Following IV injection of 36-duqetn-3-deoxyglucose (FDG) astandard uptake of approximately 60 minutes, [...] number below. Electronically signed by: Tino Gallardo [facility]([phone]), at 10/14/2018 3:26 PM Heber Phillips MD [facility] PET ORDERABLES documented [...] mCi documented in this encounter Care Teams Software Client Architect Relationship Specialty Start Date End Date Nataliya Messina MD [address] [place] [address] PCP - General 10/02/11 01/11/22 documented as of this encounter
--- OUTSIDE RECORDS SUMMARY | 2024-02-09 02:15 | XMS_ITS | Encounter Summary ---
Author Organization [facility] Address [facility] [address] Care Team Providers Care Clinic Specialist Name Role Phone Nataliya Messina MD Primary Care Provider [phone] Encounter Details Date Type Department Care Team (Late Contact Info) Description 01/09/2019 Orders Only Hematology [place] [address] Heber Phillips MD [facility] [place] [address] Social History Tobacco Use Types Packs/Day Years [...] AM EDT Office Visit Hematology/Oncology at [address] [address] Heber Phillips MD [facility] [place] [address] Isabella Baker APRN [facility] [place] [address] documented as of this encounter Visit Diagnoses Not on filedocumented in this encounter Care Teams Clinic Specialist Relationship Specialty Start Date End Date Nataliya Messina MD [address] [place] [address] PCP - General 10/02/11 01/11/22 documented as of this encounter
--- OUTSIDE RECORDS SUMMARY | 2024-02-09 02:15 | XMS_ITS | Encounter Summary ---
Author Organization [facility] Address [facility] [place] [address] Care Team Providers Care Veneer Matcher Name Role Phone Nataliya Messina MD Primary Care Provider [phone] Encounter Details Date Type Department Care Team (Late Contact Info) Description 08/16/2018 Ancillary Procedure [place] [phone] Heber Phillips MD [facility] HEMATOLOGY [place] [address] Social History Tobacco Use Types Packs/Day Years [...] AM EDT Office Visit Hematology/Oncology at [address] [phone] Heber Phillips MD [facility] HEMATOLOGY [place] [address] Isabella Baker APRN [facility] [place] [address] documented as of this encounter Procedures Procedure [...] Abdomen Pelvis (08/16/2018 12:00 AM EST) Narrative [facility] - 08/17/2018 9:56 AM EST This exam is for storage only and is auto-finalizing. Heber Phillips MD IMG FILM LIBRARY ORD ERABLES [place] documented in this encounter Visit Diagnoses Not on filedocumented in this encounter Care Teams Veneer Matcher Relationship Specialty Start Date End Date Nataliya Messina MD [address] [place] [address] PCP - General 10/02/11 01/11/22 documented as of this encounter
--- OUTSIDE RECORDS SUMMARY | 2024-02-09 02:15 | XMS_ITS | Encounter Summary ---
Author Organization [facility] [place] [address] Care Team Providers Care Veneer Marker Name Role Phone Nataliya Messina MD Primary Care Provider Reason for Referral * Diagnostic Test (Routine) - Closed Specialty Diagnoses / Procedures Referred By Contac t Referred To Contact Radiology Diagnoses Small cell lung cancer, right upper lobe Procedures NM PET CT Skull Base to Mid-thigh Bettie Serrano APRN [address] [place] [address] [place] [address] Referral ID Status Reason Start Date Expiration Date V isits Requested Visits Authorized [id number] Closed Specialty Service Requested 02/07/2019 02/07/2020 1 1 Encounter Details Date Type Department Care Team (Late st Contact Info) Description 02/07/2019 1:30 PM EDT Office Visit Hematology/Oncology at [address] [address] Bettie Serrano APRN [address] [place] [phone] Small cell lung cancer, right upper lobe [...] this encounter Progress Notes * Bettie Serrano, CATERING SERVER - 02/07/2019 1:30 PM EDT Subjective: Patient [...] scan prior to visit. Bettie Serrano, MSN, CATERING SERVER, AOCNP documented in this encounter Plan of Treatment Upcoming Encounters Date Type Department Care Team (Late st Contact Info) Description 03/28/2024 10:00 AM EDT Office Visit Hematology/Oncology at [address] [address] Heber Phillips MD [facility] DR HEMATOLOGY [place] [address] Isabella Baker APRN [facility] [place] [address] documented as of this encounter Results * [...] to therapy. TECHNIQUE: Following IV injection of 53-daxlxw-7-deoxyglucose (FDG) a standard uptake of approximately 60 [...] to therapy. TECHNIQUE: Following IV injection of 13-mzppah-2-deoxyglucose (FDG) astandard uptake of approximately 60 minutes, [...] please contact the number below. Bettie Serrano APRN IMG PET ORDERAB LES documented in this encounter Visit Diagnoses Diagnosis Small cell lung cancer, right upper lobe Small cell lung cancer, right upper lobe documented in this encounter Care Teams Veneer Marker Relationship Specialty Start Date End Date Nataliya Messina MD [address] [place] [address] [address] [facility] [address] [place] [address] PCP - General 10/02/11 01/11/22 documented as of this encounter
--- OUTSIDE RECORDS SUMMARY | 2024-02-09 02:15 | XMS_ITS | Encounter Summary ---
Author Organization [facility] [place] [address] Care Team Providers Care Surgical Training Specialist Name Role Phone Nataliya Messina MD Primary Care Provider [phone] Reason for Referral * Diagnostic Test (Routine) - Closed Specialty Diagnoses / Procedures Referred By Contac t Referred To Contact Radiology Diagnoses Small cell lung cancer, right upper lobe Procedures PET CT Carter Skull Base to Mid-Thigh Heber Phillips MD [facility] [place] [address] [place] [address] Referral ID Status Reason Start Date Expiration Date V isits Requested Visits Authorized [id number] Closed Specialty Service Requested 09/27/2018 09/27/2019 1 1 Encounter Details Date Type Department Care Team (Late st Contact Info) Description 09/27/2018 10:30 AM EDT Office Visit Hematology/Oncology at [address] [phone] Heber Phillips MD [facility] DR [place] [address] Small cell lung cancer, right [...] PMH: No interval changes since last visit [place] in 2013 status post 2 stents placement, [...] radiating to right leg ??? 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 [...] file Gets together: Not on file Attends gnosticist service: Not on file Active member of [...] Social History Narrative Lives with his in [place], [place]. 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 [...] including history of stroke, severe peripheralvascular disease, [place] status post stent placement and COPD. His [...] on Celexa Plan: 1. PET scan in [place] within 2-3 weeks 2. Next visit with CBc and CMP within a a week after PET scan The plan was discussed with the patient in details. All questions were answered to patient's satisfaction. documented in this encounter Plan of Treatment Upcoming Encounters Date Type Department Care Team (Late st Contact Info) Description 03/28/2024 10:00 AM EDT Office Visit Hematology/Oncology at [address] [phone] Heber Phillips MD [facility] [address] [place] [address] Isabella Baker APRN [facility] [place] [address] documented as of this encounter Results * PET CT Carter Skull Base to [...] concurrent chemoradiation TECHNIQUE: Following IV injection of 08-rloygg-1-deoxyglucose (FDG) a standard uptake of approximately 60 [...] tip terminating in the proximal right atrium. [place] coronary artery and aortic calcification. Note of [...] concurrent chemoradiation TECHNIQUE: Following IV injection of 10-ahlvwp-2-deoxyglucose (FDG) astandard uptake of approximately 60 minutes, [...] lobe documented in this encounter Care Teams Surgical Training Specialist Relationship Specialty Start Date End Date Nataliya Messina MD [address] [place] [address] PCP - General 10/02/11 01/11/22 documented as of this encounter
--- OUTSIDE RECORDS SUMMARY | 2024-02-09 02:15 | XMS_ITS | Encounter Summary ---
Author Organization [facility] [place] [address] Care Team Providers Care Collection Coordinator Name Role Phone Nataliya Messina MD Primary Care Provider [phone] Reason for Visit * Reason Onset Date Comments Other 09/02/2018 Encounter Details Date Type Department Care Team (Late st Contact Info) Description 09/02/2018 Telephone Cardiology at [address] [phone] Kimmie Leyva Other Social History Tobacco Use [...] AM EDT Office Visit Hematology/Oncology at [address] [phone] Heber Phillips MD [facility] [place] [address] Isabella Baker APRN [facility] [place] [place] [address] documented as of this encounter Visit Diagnoses Not on filedocumented in this encounter Care Teams Collection Coordinator Relationship Specialty Start Date End Date Nataliya Messina MD [address] [place] [address] PCP - General 10/02/11 01/11/22 documented as of this encounter
--- OUTSIDE RECORDS SUMMARY | 2024-02-09 02:15 | XMS_ITS | Encounter Summary ---
Author Organization [facility] [place] [address] Care Team Providers Care Upfitter Name Role Phone Nataliya Messina MD Primary Care Provider [phone] Reason for Visit * Reason Comments Follow-up 3 months Coronary Artery Disease Encounter Details Date Type Department Care Team (Late st Contact Info) Description 07/04/2018 2:20 PM EST Office Visit Cardiology at [address] [phone] Lauri Winn Jr., MD [address] [place] [phone] Coronary artery disease, angina presence unspecified, unspecified vessel or lesion type, unspecified whether [place] or transplanted heart; Hypertension, unspecified type Social [...] AM EDT Office Visit Hematology/Oncology at [address] [phone] Heber Phillips MD [facility] DR HEMATOLOGY [place] [address] Isabella Baker APRN [facility] [place] [address] documented as of this encounter Visit Diagnoses Diagnosis Coronary artery disease, angina presence unspecified, unspecified vessel or lesion type, unspecified whether [place] or transplanted heart Hypertension, unspecified type documented in this encounter Care Teams Upfitter Relationship Specialty Start Date End Date Nataliya Messina MD [address] [place] [address] PCP - General 10/02/11 01/11/22 documented as of this encounter
--- OUTSIDE RECORDS SUMMARY | 2024-02-09 02:15 | XMS_ITS | Encounter Summary ---
Author Organization [facility] [address] Care Team Providers Care Lace Cutter Name Role Phone Nataliya Messina MD Primary Care Provider Reason for Visit * Diagnostic Test (Routine) - Closed Specialty Diagnoses / Procedures Referred By Contac t Referred To Contact Radiology Diagnoses Small cell lung cancer, right upper lobe Procedures NM PET CT Skull Base to Mid-thigh Bettie Serrano APRN [address] [place] [address] [place] [address] [place] [address] Referral ID Status Reason Start Date Expiration Date V isits Requested Visits Authorized [id number] Closed Specialty Service Requested 02/07/2019 02/07/2020 1 1 Encounter Details Date Type Department Care Team (Latest Contact Info) Description 02/27/2019 8:20 AM EDT Hospital Encounter [place] [address] Bettie Serrano [address] [place] [phone] Discharge Disposition: Home Social History Tobacco Use [...] AM EDT Office Visit Hematology/Oncology at [address] [phone] Heber Phillips MD [facility] DR HEMATOLOGY [place] [address] Isabella Baker APRN [facility] [place] [address] documented as of this encounter Procedures Procedure [...] to therapy. TECHNIQUE: Following IV injection of 88-utzdyo-8-deoxyglucose (FDG) a standard uptake of approximately 60 [...] to therapy. TECHNIQUE: Following IV injection of 50-ymtuog-0-deoxyglucose (FDG) astandard uptake of approximately 60 minutes, [...] on filedocumented in this encounter Care Teams Lace Cutter Relationship Specialty Start Date End Date Nataliya Messina MD [address] [place] [address] PCP - General 10/02/11 01/11/22 documented as of this encounter
--- OUTSIDE RECORDS SUMMARY | 2024-02-09 02:15 | XMS_ITS | Encounter Summary ---
Author Organization [facility] Address [facility] [place] [address] Care Team Providers Care Rfp Writer Name Role Phone Nataliya Messina MD Primary Care Provider [phone] Encounter Details Date Type Department Care Team (Late Contact Info) Description 08/15/2018 Orders Only Hematology/Oncology at [address] [phone] Heber Phillips MD [facility] HEMATOLOGY [place] [address] Small cell lung cancer, right upper lobe [...] AM EDT Office Visit Hematology/Oncology at [address] [phone] Heber Phillips MD [facility] HEMATOLOGY [place] [address] Isabella Bakre APRN [facility] [place] [address] documented as of this encounter Visit Diagnoses Diagnosis Small cell lung cancer, right upper lobe documented in this encounter Care Teams Rfp Writer Relationship Specialty Start Date End Date Nataliya Messina MD [address] [place] [address] PCP - General 10/02/11 01/11/22 documented as of this encounter
--- OUTSIDE RECORDS SUMMARY | 2024-02-09 02:15 | XMS_ITS | Encounter Summary ---
[place] [address] Care Team Providers Care User Interface Designer Name Role Phone Nataliya Messina MD Primary Care Provider Reason for Referral * Diagnostic Test (Routine) - Closed Specialty Diagnoses / Procedures Referred By Contac t Referred To Contact Radiology Diagnoses Small cell lung cancer, right upper lobe Procedures NM PET CT Skull Base to Mid-thigh Bettie Serrano APRN [address] [place] [address] [place] [address] [place] [address] Referral ID Status Reason Start Date Expiration Date V isits Requested Visits Authorized [id number] Closed Specialty Service Requested 02/07/2019 02/07/2020 1 1 Reason for Visit * Diagnostic Test (Routine) - Closed Specialty Diagnoses / Procedures Referred By Contac t Referred To Contact Radiology Diagnoses Small cell lung cancer, right upper lobe Procedures NM PET CT Skull Base to Mid-thigh Bettie Serrano APRN [address] [place] [address] [place] [address] [place] [address] Referral ID Status Reason Start Date Expiration Date V isits Requested Visits Authorized [id number] Closed Specialty Service Requested 02/07/2019 02/07/2020 1 1 Encounter Details Date Type Department Care Team (Latest Contact Info) Description 02/27/2019 8:20 AM EDT Hospital Encounter [place] [address] Bettie Serrano, [address] [place] [address] Small cell lung cancer, right upper lobe [...] AM EDT Office Visit Hematology/Oncology at [address] [phone] Heber Phillips MD [facility] DR HEMATOLOGY [place] [address] Isabella Baker APRN [facility] [place] [address] documented as of this encounter Procedures Procedure [...] to therapy. TECHNIQUE: Following IV injection of 31-zrwrzk-4-deoxyglucose (FDG) a standard uptake of approximately 60 [...] to therapy. TECHNIQUE: Following IV injection of 11-wyukgt-6-deoxyglucose (FDG) astandard uptake of approximately 60 minutes, [...] Bettie Serrano APRN IMG PET ORDERAB LES * POCT Glucose (02/27/2019 8:28 AM EDT) Glucose, POC 107 65 - 199 mg/dL [facility] Comment: Supplemental ranges: <140 mg/dL before meals <180 mg/dL all other times of the day Blood specimen (specimen) 02/27/2019 8:28 AM EDT 02/27/2019 8:28 AM EDT Bettie Rowe Zach CARDIAC MONITOR POINT OF CARE T EST ORDERABLES [facility] [place] [address] documented in this encounter Visit Diagnoses Diagnosis [...] Arm documented in this encounter Care Teams User Interface Designer Relationship Specialty Start Date End Date Nataliya Messina MD [address] [place] [address] PCP - General 10/02/11 01/11/22 documented as of this encounter
--- OUTSIDE RECORDS SUMMARY | 2024-02-09 02:15 | XMS_ITS | Encounter Summary ---
Author Organization [facility] [place] [address] Care Team Providers Care Hand Decorator Name Role Phone Nataliya Messina MD Primary Care Provider [phone] Reason for Referral * Diagnostic Test (Routine) - Closed Specialty Diagnoses / Procedures Referred By Contac t Referred To Contact Radiology Diagnoses Small cell lung cancer, right upper lobe Procedures NM PET CT Skull Base to Mid-thigh Heber Phillips MD [facility] DR [place] [address] [place] [address] Referral ID Status Reason Start Date Expiration Date V isits Requested Visits Authorized [id number] Closed Specialty Service Requested 03/07/2019 03/06/2020 1 1 Encounter Details Date Type Department Care Team (Late st Contact Info) Description 03/07/2019 2:00 PM EDT Office Visit Hematology/Oncology at [address] [phone] Heber Phillips MD [facility] DR [place] [address] Small cell lung cancer, right [...] infarction OR about 6 years ago @ [facility]-has stents ??? 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 Marital status: [...] file Gets together: Not on file Attends pentecostalism service: Not on file Active member of [...] Social History Narrative Lives with his in [place], [place]. 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 [...] AM EDT Office Visit Hematology/Oncology at [address] [phone] Heber Phillips MD [facility] DR [place] [address] Isabella Baker APRN [facility] [place] [address] documented as of this encounter Procedures Procedure [...] lung cancer TECHNIQUE: Following IV injection of 27-nequdh-5-deoxyglucose (FDG) a standard uptake of approximately 60 [...] lung cancer TECHNIQUE: Following IV injection of 10-ytxaqd-0-deoxyglucose (FDG) astandard uptake of approximately 60 minutes, [...] contact the number below. Heber Phillips MD IM PET ORDERABLES * SCAN DOC: MRI/MRA (03/16/2019 [...] lobe documented in this encounter Care Teams Hand Decorator Relationship Specialty Start Date End Date Nataliya Messina MD [address] [facility] [facility] [place] [address] PCP - General 10/02/11 01/11/22 documented as of this encounter
--- OUTSIDE RECORDS SUMMARY | 2024-02-09 02:15 | XMS_ITS | Encounter Summary ---
Author Organization [facility] Address [facility] [place] [address] Care Team Providers Care Retail Loss Prevention Specialist Name Role Phone Nataliya Messina MD Primary Care Provider [phone] Reason for Visit * Reason Onset Date Comments Follow-up 01/09/2019 renuka prot ocol Encounter Details Date Type Department Care Team (Late st Contact Info) Description 01/09/2019 Telephone Hematology [place] [address] Heber Phillips MD [facility] DR HEMATOLOGY [place] [address] Follow-up (renuka protocol) Social History Tobacco Use [...] AM EDT Office Visit Hematology/Oncology at [address] [phone] Heber Phillips MD [facility] DR HEMATOLOGY [place] [address] Isabella Baker APRN [facility] [place] [address] documented as of this encounter Visit Diagnoses Diagnosis Small cell lung cancer, right upper lobe documented in this encounter Care Teams Retail Loss Prevention Specialist Relationship Specialty Start Date End Date Nataliya Messina MD [address] [facility] [facility] [place] [address] PCP - General 10/02/11 01/11/22 documented as of this encounter
--- OUTSIDE RECORDS SUMMARY | 2024-02-09 02:15 | XMS_ITS | Encounter Summary ---
Author Organization Count Includes [facility] Address [facility] [place] [address] Care Team Providers Care Ceo And President Name Role Phone Nataliya Messina MD Primary Care Provider [phone] [phone] Encounter Details Date Type Department Care Team (Late Contact Info) Description 03/16/2019 Ancillary Procedure [place] [phone] Heber Phillips MD [facility] [place] [address] Social History Tobacco Use Types Packs/Day Years [...] AM EDT Office Visit Hematology/Oncology at [address] [phone] Heber Phillips MD [facility] [place] [address] Isabella Baker APRN [facility] [place] [address] documented as of this encounter Procedures Procedure Name Priority Date/Time Associated Diagnosis Comments FILM LIBRARY STORAGE ONLY MR HEAD Routine 03/16/2019 12:00 AM EDT documented in this encounter Results * Film Library- Storage Only MR Head (03/16/2019 12:00 AM EDT) Narrative [facility] - 03/20/2019 2:05 PM EDT This exam is auto-finalizing. It's purpose is for storage only. Heber Phillips MD IMG FILM LIBRARY ORD ERABLES [place], [place] documented in this encounter Visit Diagnoses Not on filedocumented in this encounter Care Teams Ceo And President Relationship Specialty Start Date End Date Nataliya Messina MD [address] [place] [address] [address] [place] [address] PCP - General 10/02/11 01/11/22 documented as of this encounter
--- OUTSIDE RECORDS SUMMARY | 2024-02-09 02:15 | XMS_ITS | Encounter Summary ---
Author Organization Formerly [facility] [place] [address] Care Team Providers Care Pier Master Name Role Phone Nataliya Messina MD Primary Care Provider +[phone] Reason for Visit * Reason Onset Date Comments Follow-up 03/14/2019 Encounter Details Date Type Department Care Team (Late st Contact Info) Description 03/14/2019 Telephone Hematology/Oncology at [address] [phone] Carlo Hassan, RN Follow-up Social [...] for the call. ----- Message from Aleida Knight RN sent at 03/07/2019 2:48 PM EDT ----- Regarding: call and see how cough is doing See if cough better since starting prednisone. If not let Heber know. Otherwise he should finish taper as prescribed rani juárez documented in this encounter Plan of Treatment Upcoming Encounters Date Type Department Care Team (Late st Contact Info) Description 03/28/2024 10:00 AM EDT Office Visit Hematology/Oncology at [address] [address] Heber Phillips MD [facility] DR HEMATOLOGY [place] [address] Isabella Baker APRN [facility] [place] [address] documented as of this encounter Visit Diagnoses Not on filedocumented in this encounter Care Teams Pier Master Relationship Specialty Start Date End Date Nataliya Messina MD [address] [place], [place] [address] [place] [address] PCP - General 10/02/11 01/11/22 documented as of this encounter
--- OUTSIDE RECORDS SUMMARY | 2024-02-09 02:16 | XMS_ITS | Encounter Summary ---
Author Organization [facility] [place] [address] Care Team Providers Care Insole And Heel Stiffener Name Role Phone Nataliya Messina MD Primary Care Provider [phone] Encounter Details Date Type Department Care Team (Late st Contact Info) Description 02/15/2018 Notes Only Hematology/Oncology at [address] [phone] Mya Saeed MSW OFFICE OF [...] to him. He has to work on [employer] Environment jimmie for financial assistance. Reminded him DOUBLE END PRODUCTION GRINDER can help with hisadvance directive as needed. Will continue to follow for support and resources. documented in this encounter Plan of Treatment Upcoming Encounters Date Type Department Care Team (Late st Contact Info) Description 03/28/2024 10:00 AM EDT Office Visit Hematology/Oncology at [address] [address] Heber Phillips MD [facility] DR [place] [address] Isabella Baker APRN [facility] [place] [address] documented as of this encounter Visit Diagnoses Not on filedocumented in this encounter Care Teams Insole And Heel Stiffener Relationship Specialty Start Date End Date Nataliya Messina MD [address] [place] [address] PCP - General 10/02/11 01/11/22 documented as of this encounter
--- OUTSIDE RECORDS SUMMARY | 2024-02-09 02:16 | XMS_ITS | Encounter Summary ---
[place] [address] Care Team Providers Care Registered Diet Technician Name Role Phone Nataliya Messina MD Primary Care Provider [phone] Encounter Details Date Type Department Care Team (Late st Contact Info) Description 03/31/2018 Notes Only Radiation Oncology at [address] [phone] Mikhail Cadena MD [address] [place] [address] RADIATION ONCOLOGY [place], [place] [id number] Social History Tobacco Use Types Packs/Day Years [...] Start Date 02/15/18 Current Dose: 03/29/18 ? Block Out Machine Operator Lantigua from Current Plan (minimum 60 Gy [...] FOLLOWUP: Follow-up visit with Radiation Oncology in [facility] is scheduled for 04/07/18 with MRI prior, [...] AM EDT Office Visit Hematology/Oncology at [address] [phone] Heber Phillips MD [facility] [address] [place] [address] Isabella Baker APRN [facility] [place] [address] documented as of this encounter Visit Diagnoses Not on filedocumented in this encounter Care Teams Registered Diet Technician Relationship Specialty Start Date End Date Nataliya Messina MD [address] [place] [address] [address] [place], [place] [address] PCP - General 10/02/11 01/11/22 documented as of this encounter
--- OUTSIDE RECORDS SUMMARY | 2024-02-09 02:16 | XMS_ITS | Encounter Summary ---
Author Organization [facility] Address [facility] [place] [address] Care Team Providers Care Airborne Missions Systems Name Role Phone Nataliya Messina MD Primary Care Provider [phone] Encounter Details Date Type Department Care Team (Latest Contact Info) Description 05/18/2018 - 05/18/2018 11:59 PM EST Hospital Encounter [place] [address] Thu Saldana APRN [facility] [place] [address] Discharge Disposition: Home Social History Tobacco Use [...] AM EDT Office Visit Hematology/Oncology at [address] [address] Heber Phillips MD [facility] [place] [address] Isabella Baker APRN [facility] [place] [address] documented as of this encounter Procedures Procedure Name Priority Date/Time Associated Diagnosis Comments DIAGNOSTIC RADIOLOGY SCAN 05/18/2018 12:00 AM EST FILM LIBRARY STORAGE ONLY CT CHEST Routine 05/18/2018 12:00 AM EST documented in this encounter Results * Film Library- Storage Only CT Chest (05/18/2018 12:00 AM EST) Narrative [facility] - 05/19/2018 11:35 AM EST This exam is for storage only and is auto-finalizing. Thu Saldana APRN [facility] FILM LIBRARY ORD ERABLES [place], [place] * SCAN DOC: DIAGNOSTIC RADIOLOGY (05/18/2018 12:00 AM EST) Anatomical Region Laterality Modality SO Narrative 05/18/2018 12:00 AM EST Ordered by an unspecified provider. Scanning Provider MEDIA MGR SCAN EXT O RDR/RSLT documented in this encounter Visit Diagnoses Not on filedocumented in this encounter Care Teams Airborne Missions Systems Relationship Specialty Start Date End Date Nataliya Messina MD [address] [facility] [address] [place] [address] PCP - General 10/02/11 01/11/22 documented as of this encounter
--- OUTSIDE RECORDS SUMMARY | 2024-02-09 02:16 | XMS_ITS | Encounter Summary ---
Author Organization [facility] [place] [address] Care Team Providers Care Director Quality Assurance Name Role Phone Nataliya Messina MD Primary Care Provider [phone] Reason for Visit * Reason Comments Other Hydration Encounter Details Date Type Department Care Team (Late st Contact Info) Description 03/21/2018 11:00 AM EDT Infusion Hematology Oncology at [address] [phone] Small cell lung cancer, right [...] AM EDT Office Visit Hematology/Oncology at [address] [phone] Heber Phillips MD [facility] DR HEMATOLOGY [place] [address] Isabella Baker APRN [facility] [place] [address] documented as of this encounter Visit Diagnoses [...] mLs documented in this encounter Care Teams Director Quality Assurance Relationship Specialty Start Date End Date Nataliya Messina MD [address] [place] [address] [address] [place] [address] PCP - General 10/02/11 01/11/22 documented as of this encounter
--- OUTSIDE RECORDS SUMMARY | 2024-02-09 02:16 | XMS_ITS | Encounter Summary ---
Author Organization Formerly [facility] Address [facility] [place] [address] Care Team Providers Care Line Haul Owner Operator Name Role Phone Nataliya Messina MD Primary Care Provider [phone] Encounter Details Date Type Department Care Team (Latest Contact Info) Description 04/01/2018 11:00 AM EDT Clinical Support Hematology/Oncology at [address] [phone] [facility] [place] [address] Small cell lung cancer, right upper lobe [...] Curry RD - 04/01/2018 11:00 AM EDT [facility] Dietitian Follow Up Assessment Seen By: Leona Curry MS, RD, COMMUNICATION EQUIPMENT REPAIRER, LD Patient and diagnosis: High-grade neuroendocrine cancer [...] lets beer warm up and go flat ([place]). Supplements/Frequency: one/d. ___ Ensure/Plus ___ Boost/Plus ___ CIB - has this, hasn't started drinking; thought he needed a manager multimedia. Uses 2% milk. ___ Other: Teas, vitamins, [...] AM EDT Office Visit Hematology/Oncology at [address] [phone] Heber Phillips MD [facility] [place] [address] Isabella Baker APRN [facility] [place] [place] [address] documented as of this encounter Visit Diagnoses Diagnosis Small cell lung cancer, right upper lobe documented in this encounter Care Teams Line Haul Owner Operator Relationship Specialty Start Date End Date Nataliya Messina MD [address] [facility] [address] [place] [address] PCP - General 10/02/11 01/11/22 documented as of this encounter
--- OUTSIDE RECORDS SUMMARY | 2024-02-09 02:16 | XMS_ITS | Encounter Summary ---
[place] [address] Care Team Providers Care Instructional Support Services Director Name Role Phone Nataliya Messina MD Primary Care Provider [phone] Encounter Details Date Type Department Care Team (Late st Contact Info) Description 02/28/2018 Telephone Cardiology at [address] [phone] Lauri Winn Jr., MD [address] [place] [address] [id number] Social History Tobacco Use Types Packs/Day Years [...] AM EDT Office Visit Hematology/Oncology at [address] [phone] Heber Phillips MD [facility] [address] [place] [address] Isabella Baker APRN [facility] [place] [address] documented as of this encounter Visit Diagnoses Diagnosis Chest pain, unspecified type documented in this encounter Care Teams Instructional Support Services Director Relationship Specialty Start Date End Date Nataliya Messina MD [address] [place] [address] PCP - General 10/02/11 01/11/22 documented as of this encounter
--- OUTSIDE RECORDS SUMMARY | 2024-02-09 02:16 | XMS_ITS | Encounter Summary ---
Author Organization [facility] Address [facility] [place] [address] Care Team Providers Care Quality Assurance Group Leader Name Role Phone Nataliya Messina MD Primary Care Provider [phone] Reason for Visit * Reason Comments Chemotherapy * Treatment/Therapy Plan Authorization (Routine) - Closed Specialty Diagnoses / Procedures Referred By Keven lozano Referred To Contact Diagnoses Small cell lung cancer, right upper lobe Heber Phillips MD [facility] DR HEMATOLOGY [place] [address] St Hem Onc Office [address] [place] [phone] Referral ID Status Reason Start Date Expiration Date Visits Re quested Visits Authorized [id number] Closed 01/20/2018 01/20/2019 1 1 Encounter Details Date Type Department Care Team (Late st Contact Info) Description 03/10/2018 10:30 AM EDT Infusion Hematology Oncology at [address] [phone] Small cell lung cancer, right [...] by Alyssa Irene RN and Flynn Bautista [facility]. REACTIONS (DESCRIPTION, TIME, INTERVENTION AND [...] AM EDT Office Visit Hematology/Oncology at [address] [phone] Heber Phillips MD [facility] HEMATOLOGY [place] [address] Isabella Baker APRN [facility] [place] [address] documented as of this encounter Visit Diagnoses [...] Job Aid: Adult Flushing & Catheter Care (9638) job aid for additional information regarding guidelines [...] Job Aid: Adult Flushing & Catheter Care (4971) job aid for additional information regarding guidelines and administration., Routine Given 03/10/2018 2:45 PM EDT 20 mLs documented in this encounter Care Teams Quality Assurance Group Leader Relationship Specialty Start Date End Date Nataliya Messina MD [address] [facility] [address] [place] [address] PCP - General 10/02/11 01/11/22 documented as of this encounter
--- OUTSIDE RECORDS SUMMARY | 2024-02-09 02:16 | XMS_ITS | Encounter Summary ---
Author Organization [facility] [place] [address] Care Team Providers Care Donation Worker Name Role Phone Nataliya Messina MD Primary Care Provider [phone] Encounter Details Date Type Department Care Team (Late st Contact Info) Description 01/26/2018 Notes Only Hematology/Oncology at [address] [phone] Mya Saeed GAS TRANSFER OPERATOR OFFICE OF CARE MANAGEMENT Social History [...] document and the process. Gave him a [place] booklet/form. Invited him to meet to complete [...] AM EDT Office Visit Hematology/Oncology at [address] [address] [facility] DR HEMATOLOGY [place] [address] [facility] [place] [address] documented as of this encounter Visit Diagnoses Not on filedocumented in this encounter Care Teams Donation Worker Relationship Specialty Start Date End Date Nataliya Messina MD [address] [place] [address] [address] [facility] [address] [place], [place] [address] PCP - General 10/02/11 01/11/22 documented as of this encounter
--- OUTSIDE RECORDS SUMMARY | 2024-02-09 02:16 | XMS_ITS | Encounter Summary ---
Author Organization [facility] [place] [address] Care Team Providers Care Line Controller Name Role Phone Nataliya Messina MD Primary Care Provider [phone] [phone] Encounter Details Date Type Department Care Team (Late st Contact Info) Description 04/07/2018 10:00 AM EDT Office Visit Radiation Oncology at [address] [phone] Mikhail Cadena MD [address] [place] [address] [place] [address] Small cell lung cancer, right [...] 04/07/18 Mikhail Cadena MD, MS Radiation Oncology [facility] [phone] (paging signal operator technical) Pager #[phone] PATIENT IDENTIFICATION Name Hieu Tillman Date of [...] Gy in 30 fractions End Date 03/29/18 Public Works Commissioner Lantigua from Current Plan (minimum 60 Gy [...] AM EDT Office Visit Hematology/Oncology at [address] [phone] Heber Phillips MD [facility] DR HEMATOLOGY [place] [address] Isabella Baker APRN [facility] DR [place] [address] documented as of this encounter Procedures Procedure [...] documented in this encounter Care Teams Line Controller Relationship Specialty Start Date End Date Nataliya Messina MD [address] [place] [address] PCP - General 10/02/11 01/11/22 documented as of this encounter
--- OUTSIDE RECORDS SUMMARY | 2024-02-09 02:16 | XMS_ITS | Encounter Summary ---
Author Organization [facility] Address [facility] [place] [address] Care Team Providers Care Senior Scrum Master Name Role Phone Nataliya Messina MD Primary Care Provider Reason for Visit * Reason Comments Chemotherapy Cycle 3, Day 2 -- Et oposide * Treatment/Therapy Plan Authorization (Routine) - Closed Specialty Diagnoses / Procedures Referred By Keven lozano Referred To Contact Diagnoses Small cell lung cancer, right upper lobe Heber Phillips MD [facility] DR HEMATOLOGY [place] [address] St Hem Onc Office [address] [place] [phone] Referral ID Status Reason Start Date Expiration Date Visits Re quested Visits Authorized [id number] Closed 01/20/2018 01/20/2019 1 1 Encounter Details Date Type Department Care Team (Late st Contact Info) Description 03/09/2018 10:30 AM EDT Infusion Hematology Oncology at [address] [phone] Small cell lung cancer, right [...] by Fredi Silva RN and Flynn Bautista [facility]. REACTIONS (DESCRIPTION, TIME, INTERVENTION AND EFFECTIVENESS) [...] AM EDT Office Visit Hematology/Oncology at [address] [address] Heber Phillips MD [facility] DR HEMATOLOGY [place] [address] Isabella Baker APRN [facility] [place] [address] documented as of this encounter Visit Diagnoses [...] Job Aid: Adult Flushing & Catheter Care (7433) job aid for additional information regarding guidelines [...] Job Aid: Adult Flushing & Catheter Care (5487) job aid for additional information regarding guidelines and administration., Routine Given 03/09/2018 2:15 PM EDT 20 mLs documented in this encounter Care Teams Senior Scrum Master Relationship Specialty Start Date End Date Nataliya Messina MD [address] [facility] [address] [place] [address] PCP - General 10/02/11 01/11/22 documented as of this encounter
--- OUTSIDE RECORDS SUMMARY | 2024-02-09 02:16 | XMS_ITS | Encounter Summary ---
Author Organization [facility] Address [facility] [place] [address] Care Team Providers Care Research Consultant Name Role Phone Nataliya Messina MD Primary Care Provider [phone] [phone] Encounter Details Date Type Department Care Team (Latest Contact Info) Description 02/24/2018 11:30 AM EDT Clinical Support Hematology/Oncology at [address] [phone] [facility] [place] [address] Small cell lung cancer, right upper lobe [...] Assessment Seen By: Leona Curry MS, RD, SR. PAYROLL MANAGER, LD Referred by: Reason for visit: Patient [...] stable. He was accompanied by his sister Lni, and she is very supportive. Appetite is [...] AM EDT Office Visit Hematology/Oncology at [address] [phone] Heber Phililps MD [facility] HEMATOLOGY [place] [address] Isabella Baker APRN [facility] DR MEDICAL [place] [address] documented as of this encounter Visit Diagnoses Diagnosis Small cell lung cancer, right upper lobe documented in this encounter Care Teams Research Consultant Relationship Specialty Start Date End Date Nataliya Messina MD [address] [facility] [address] [place] [address] PCP - General 10/02/11 01/11/22 documented as of this encounter
--- OUTSIDE RECORDS SUMMARY | 2024-02-09 02:16 | XMS_ITS | Encounter Summary ---
[place] [address] Care Team Providers Care Commercial Loan Administrator Name Role Phone Nataliya Messina MD Primary Care Provider [phone] [phone] Encounter Details Date Type Department Care Team (Late st Contact Info) Description 02/17/2018 1:15 PM EDT Office Visit Radiation Oncology at [address] [phone] Mikhail Cadena MD [address] [place] [address] RADIATION ONCOLOGY [place], [place] [id number] Small cell lung cancer, right upper lobe [...] 02/17/18 Mikhail Cadena MD, MS Radiation Oncology [facility] [phone] (paging microfiche camera operator) Pager #[phone] PATIENT IDENTIFICATION Name Hieu Tillman Date of [...] Current Dose: 6 Gy in 3 fractions Informatics Nurse Specialist Lantigua from Current Plan (minimum 60 Gy [...] PULSE 74 TEMPERATURE 98.1 RESPIRATIONS 20 Height (Tajik) 5' 6.142 Height (Metric) 168 cm Weight (Tajik) 169 lbs 13 oz Weight (Metric) 77.021 [...] AM EDT Office Visit Hematology/Oncology at [address] [address] Heber Phillips MD [facility] DR HEMATOLOGY [place] [address] Isabella Baker APRN [facility] [place] [address] documented as of this encounter Visit Diagnoses Diagnosis Small cell lung cancer, right upper lobe documented in this encounter Care Teams Commercial Loan Administrator Relationship Specialty Start Date End Date Nataliya Messina MD [address] [place], [place] [address] PCP - General 10/02/11 01/11/22 documented as of this encounter
--- OUTSIDE RECORDS SUMMARY | 2024-02-09 02:16 | XMS_ITS | Encounter Summary ---
Author Organization [facility] Address [facility] [place] [address] Care Team Providers Care Retail Wireless Sales Consultant Name Role Phone Nataliya Messina MD Primary Care Provider [phone] Reason for Visit * Reason Comments Chemotherapy Cycle 3 Day 1 Carbop latin/Etoposide * Treatment/Therapy Plan Authorization (Routine) - Closed Specialty Diagnoses / Procedures Referred By Keven lozano Referred To Contact Diagnoses Small cell lung cancer, right upper lobe Heber Phillips MD [facility] [place] [address] St Hem Onc Office [address] [place] [phone] Referral ID Status Reason Start Date Expiration Date Visits Re quested Visits Authorized [id number] Closed 01/20/2018 01/20/2019 1 1 Encounter Details Date Type Department Care Team (Late st Contact Info) Description 03/08/2018 11:00 AM EDT Infusion Hematology Oncology at [address] [phone] Small cell lung cancer, right [...] and BSA by Gretta Hopkins, RN & [facility] onsite. REACTIONS (DESCRIPTION, TIME, INTERVENTION AND EFFECTIVENESS) none ASSESSMENT Hieu Tillman was awake, alert and tolerated treatment well. PLAN Return to clinic tomorrow for treatment. documented in this encounter Plan of Treatment Upcoming Encounters Date Type Department Care Team (Late st Contact Info) Description 03/28/2024 10:00 AM EDT Office Visit Hematology/Oncology at [address] [phone] Heber Phillips MD [facility] [place] [address] Isabella Baker APRN [facility] [place] [address] documented as of this encounter Visit Diagnoses [...] 2 minutes is a recommendation from the supervisor last model department. Administer prior to chemotherapy., Routine Given 03/08/2018 [...] (IV) Procedure: Accessing Implanted Vascular Access Devices (264) procedure and/or Intravenous (IV) Job Aid: Adult Flushing & Catheter Care (5269) job aid for additional information regarding guidelines [...] Job Aid: Adult Flushing & Catheter Care (5354) job aid for additional information regarding guidelines and administration., Routine Given 03/08/2018 3:27 PM EDT 20 mLs documented in this encounter Care Teams Retail Wireless Sales Consultant Relationship Specialty Start Date End Date Nataliya Messina MD [address] [place] [address] 1 [place] [address] PCP - General 10/02/11 01/11/22 documented as of this encounter
--- OUTSIDE RECORDS SUMMARY | 2024-02-09 02:16 | XMS_ITS | Encounter Summary ---
Author Organization [place] [address] Care Team Providers Care Parallel Computing Software Engineer Name Role Phone Nataliya Messina MD Primary Care Provider [phone] Encounter Details Date Type Department Care Team (Late st Contact Info) Description 03/03/2018 10:30 AM EDT Office Visit Radiation Oncology at [address] [phone] Mikhail Cadena MD [address] [place] [address] [place] [address] Small cell lung cancer, right [...] 03/03/18 Mikhail Cadena MD, MS Radiation Oncology [facility] [phone] (paging braider operator) Pager #[phone] PATIENT IDENTIFICATION Name Hieu Tillman Date of [...] Current Dose: 24 Gy in 12 fractions Proposal Manager Lantigua from Current Plan (minimum 60 Gy [...] AM EDT Office Visit Hematology/Oncology at [address] [phone] Heber Phillips MD [facility] [place] [address] Isabella Baker APRN [facility] [place] [address] documented as of this encounter Visit Diagnoses Diagnosis Small cell lung cancer, right upper lobe documented in this encounter Care Teams Parallel Computing Software Engineer Relationship Specialty Start Date End Date Nataliya Messina MD [address] [place] [address] [address] [place] [address] PCP - General 10/02/11 01/11/22 documented as of this encounter
--- OUTSIDE RECORDS SUMMARY | 2024-02-09 02:16 | XMS_ITS | Encounter Summary ---
Author Organization [facility] Address [facility] [place] [address] Care Team Providers Care Operations Program Manager Name Role Phone Nataliya Messina MD Primary Care Provider [phone] Encounter Details Date Type Department Care Team (Latest Contact Info) Description 05/05/2018 1:30 PM EST Clinical Support Hematology/Oncology at [address] [phone] [facility] [place] [address] Small cell lung cancer, right upper lobe [...] Curry RD - 05/05/2018 1:30 PM EST [facility] Dietitian Follow Up Assessment Seen By: Leona Curry, MS, RD, DEVELOPER AUTOMATIC, LD Patient and diagnosis: High-grade neuroendocrine cancer [...] hasn't started drinking; thought he needed a blender/braze applicator. ___ Other: Teas, vitamins, or other nutritional [...] AM EDT Office Visit Hematology/Oncology at [address] [phone] Heber Phillips MD [facility] DR [place] [address] Isabella Baker APRN [facility] [place] [address] documented as of this encounter Visit Diagnoses Diagnosis Small cell lung cancer, right upper lobe documented in this encounter Care Teams Operations Program Manager Relationship Specialty Start Date End Date Nataliya Messina MD [address] [place], [place] [address] PCP - General 10/02/11 01/11/22 documented as of this encounter
--- OUTSIDE RECORDS SUMMARY | 2024-02-09 02:16 | XMS_ITS | Encounter Summary ---
Author Organization [place] [address] Care Team Providers Care Director Home Health Name Role Phone Nataliya Messina MD Primary Care Provider [phone] Reason for Visit * Reason Onset Date Comments Follow-up 02/03/2018 post chemo call Encounter Details Date Type Department Care Team (Late st Contact Info) Description 02/03/2018 Telephone Hematology/Oncology at [address] [phone] Carlo Hassan RN Follow-up (post [...] helps or not. ?? Plan:? Reinforced to patient/care-black powder glazing operator to call facility 11/01 with any new/worsening signs and symptoms orconcerns or questions.?? Phone number provided.?? Pt verbalized understanding and is in agreement with plan. ? documented in this encounter Plan of Treatment Upcoming Encounters Date Type Department Care Team (Late st Contact Info) Description 03/28/2024 10:00 AM EDT Office Visit Hematology/Oncology at [address] [phone] Heber Phillips MD [facility] DR [place] [address] Isabella Baker APRN [facility] [place] [address] documented as of this encounter Visit Diagnoses Not on filedocumented in this encounter Care Teams Director Home Health Relationship Specialty Start Date End Date Nataliya Messina MD [address] [place] [address] PCP - General 10/02/11 01/11/22 documented as of this encounter
--- OUTSIDE RECORDS SUMMARY | 2024-02-09 02:16 | XMS_ITS | Encounter Summary ---
Author Organization [facility] [place] [address] Care Team Providers Care Host Hostess Name Role Phone Nataliya Messina MD Primary Care Provider [phone] Encounter Details Date Type Department Care Team (Late st Contact Info) Description 03/29/2018 10:30 AM EDT Office Visit Hematology/Oncology at [address] [phone] Thu Saldana APRN [facility] [place] [address] Small cell lung cancer, right upper lobe [...] PMH: No interval changes since last visit [place] in 2013 status post 2 stents [...] [place] about 6 years ago @ [facility]-has stents ??? 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 Marital [...] Social History Narrative Lives with his in [place], [place]. 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 [...] mg methylPREDNISolone acetate (DEPO-Medrol) Epid ON[facility] ONCOLOGY ([facility]) 01/27/2018 Day, Cycle Day 2, Cycle 1 CARBOplatin (PARAPLATIN) IV etoposide (VEPESID) IV 100 mg/m2/dose = 185 mg methylPREDNISolone acetate (DEPO-Medrol) [facility]) 01/28/2018 Day, Cycle Day 3, [...] AM EDT Office Visit Hematology/Oncology at [address] [address] Heber Phillips MD [facility] DR HEMATOLOGY [place] [address] Isabella Baker APRN [facility] [place] [address] documented as of this encounter Visit Diagnoses Diagnosis Small cell lung cancer, right upper lobe documented in this encounter Care Teams Host Hostess Relationship Specialty Start Date End Date Nataliya Messina MD [address] [place] [address] [address] [place] [address] PCP - General 10/02/11 01/11/22 documented as of this encounter
--- OUTSIDE RECORDS SUMMARY | 2024-02-09 02:16 | XMS_ITS | Encounter Summary ---
Author Organization [facility] [place] [address] Care Team Providers Care Washer Engineer Helper Name Role Phone Nataliya Messina MD Primary Care Provider [phone] Reason for Visit * Reason Onset Date Comments Labs Only 04/12/2018 Encounter Details Date Type Department Care Team (Late st Contact Info) Description 04/12/2018 Telephone Hematology/Oncology at [address] [phone] Carlo Hassan, RN Labs Only [...] prior so he went after visit to [facility] for CBC and CMP. Pt has critical [...] for evaluation. Will check for CBC at [facility] 04/19/18 and review with Thu Saldana APRN. Pt is in agreement with plan. documented in this encounter Plan of Treatment Upcoming Encounters Date Type Department Care Team (Late st Contact Info) Description 03/28/2024 10:00 AM EDT Office Visit Hematology/Oncology at [address] [phone] Heber Phillips MD [facility] DR [place] [address] Isabella Baker APRN [facility] [place] [address] documented as of this encounter Visit Diagnoses Not on filedocumented in this encounter Care Teams Washer Engineer Helper Relationship Specialty Start Date End Date Nataliya Messina MD [address] [place] [address] [address] PCP - General 10/02/11 01/11/22 documented as of this encounter
--- OUTSIDE RECORDS SUMMARY | 2024-02-09 02:16 | XMS_ITS | Encounter Summary ---
Author Organization [facility] [place] [address] Care Team Providers Care Button Tufter Name Role Phone Nataliya Messina MD Primary Care Provider [phone] Encounter Details Date Type Department Care Team (Late st Contact Info) Description 05/05/2018 1:00 PM EST Office Visit Radiation Oncology at [address] [phone] Mikhail Cadena MD [address] [place] [address] [place] [address] Small cell lung cancer, right [...] 05/05/18 Mikhail Cadena MD, MS Radiation Oncology [facility] [phone] (paging hydrotreater operator) Pager #[phone] PATIENT IDENTIFICATION Name Hieu Tillman Date of [...] Gy in 30 fractions End Date 03/29/18 Hair Boiler Lantigua from Current Plan (minimum 60 Gy [...] AM EDT Office Visit Hematology/Oncology at [address] [phone] Heber Phillips MD [facility] DR [place] [address] Isabella Baker APRN [facility] [place] [address] documented as of this encounter Visit Diagnoses Diagnosis Small cell lung cancer, right upper lobe documented in this encounter Care Teams Button Tufter Relationship Specialty Start Date End Date Nataliya Messina MD [address] [facility] [address] [place] [address] PCP - General 10/02/11 01/11/22 documented as of this encounter
--- OUTSIDE RECORDS SUMMARY | 2024-02-09 02:16 | XMS_ITS | Encounter Summary ---
Author Organization [facility] Address [facility] [place] [address] Care Team Providers Care Data Analyst Etl Developer Name Role Phone Nataliya Messina MD Primary Care Provider [phone] Encounter Details Date Type Department Care Team (Latest Contact Info) Description 03/10/2018 10:30 AM EDT Clinical Support Hematology/Oncology at [address] [phone] [facility] [place] [address] Small cell lung cancer, right upper lobe [...] Curry RD - 03/10/2018 10:[address] [facility] Dietitian Follow Up Assessment Seen By: Leona Curry MS, RD, EDUCATION INTERN, LD Patient and diagnosis: High-grade neuroendocrine cancer [...] AM EDT Office Visit Hematology/Oncology at [address] [phone] Heber Phillips MD [facility] [place]AT[place] [address] Isabella Baker APRN [facility] [place] [address] documented as of this encounter Visit Diagnoses Diagnosis Small cell lung cancer, right upper lobe documented in this encounter Care Teams Data Analyst Etl Developer Relationship Specialty Start Date End Date Nataliya Messina MD [address] [place] [address] PCP - General 10/02/11 01/11/22 documented as of this encounter
--- OUTSIDE RECORDS SUMMARY | 2024-02-09 02:16 | XMS_ITS | Encounter Summary ---
Author Organization [facility] Address [facility] [place] [address] Care Team Providers Care Swing Grinder Name Role Phone Nataliya Messina MD Primary Care Provider Reason for Visit * Reason Comments Chemotherapy Cycle 4, Day 1 -- Ca rboplatin/Etoposide * Treatment/Therapy Plan Authorization (Routine) - Closed Specialty Diagnoses / Procedures Referred By Keven lozano Referred To Contact Diagnoses Small cell lung cancer, right upper lobe Heber Phillips MD [facility] [place] [address] St Hem Onc Office [address] [place] [phone] Referral ID Status Reason Start Date Expiration Date Visits Re quested Visits Authorized [id number] Closed 01/20/2018 01/20/2019 1 1 Encounter Details Date Type Department Care Team (Late st Contact Info) Description 03/30/2018 8:00 AM EDT Infusion Hematology Oncology at [address] [phone] Small cell lung cancer, right [...] by Fredi Silva RN and Arjun Benitez [facility]. REACTIONS (DESCRIPTION, TIME, INTERVENTION AND EFFECTIVENESS) none [...] AM EDT Office Visit Hematology/Oncology at [address] [phone] Heber [address] [facility] DR [place] [address] Isabella Baker APRN [facility] [place] [address] documented as of this encounter Visit Diagnoses [...] 2 minutes is a recommendation from the federal appellate law clerk. Administer prior to chemotherapy., Routine Given 03/30/2018 [...] Job Aid: Adult Flushing & Catheter Care (7456) job aid for additional information regarding guidelines [...] Job Aid: Adult Flushing & Catheter Care (5525) job aid for additional information regarding guidelines and administration., Routine Given 03/30/2018 12:25 PM EDT 20 mLs documented in this encounter Care Teams Swing Grinder Relationship Specialty Start Date End Date Nataliya Messina MD [address] [place] [address] [address] PCP - General 10/02/11 01/11/22 documented as of this encounter
--- OUTSIDE RECORDS SUMMARY | 2024-02-09 02:16 | XMS_ITS | Encounter Summary ---
Author Organization [facility] Address [facility] [place] [address] Care Team Providers Care Assistant Professor Of Biology Name Role Phone Nataliya Messina MD Primary Care Provider [phone] Reason for Visit * Reason Comments Chemotherapy Cycle 2 Day 2 Etopos ada * Treatment/Therapy Plan Authorization (Routine) - Closed Specialty Diagnoses / Procedures Referred By Keven lozano Referred To Contact Diagnoses Small cell lung cancer, right upper lobe Heber Phillips MD [facility] [place] [address] St Hem Onc Office [address] [place] [phone] Referral ID Status Reason Start Date Expiration Date Visits Re quested Visits Authorized [id number] Closed 01/20/2018 01/20/2019 1 1 Encounter Details Date Type Department Care Team (Late st Contact Info) Description 02/16/2018 12:00 PM EDT Infusion Hematology Oncology at [address] [phone] Small cell lung cancer, right [...] this encounter Progress Notes * Gretta Hopkins, BOB - 02/16/2018 12:00 PM EDT INFUSION THERAPY [...] and BSA by Gretta Hopkins, BOB & [facility] onsite. REACTIONS (DESCRIPTION, TIME, INTERVENTION AND EFFECTIVENESS) none ASSESSMENT Hieu Tillman was awake, alert and tolerated treatment well. PLAN Return to clinic 02/16 for day 3. documented in this encounter Plan of Treatment Upcoming Encounters Date Type Department Care Team (Late st Contact Info) Description 03/28/2024 10:00 AM EDT Office Visit Hematology/Oncology at [address] [phone] Heber Phillips MD [facility] DR HEMATOLOGY [place] [address] Isabella Baker APRN [facility] [place] [address] documented as of this encounter Visit Diagnoses [...] Job Aid: Adult Flushing & Catheter Care (8004) job aid for additional information regarding guidelines [...] Job Aid: Adult Flushing & Catheter Care (6587) job aid for additional information regarding guidelines and administration., Routine Given 02/16/2018 3:51 PM EDT 20 mLs documented in this encounter Care Teams Assistant Professor Of Biology Relationship Specialty Start Date End Date Nataliya Messina MD [address] [place] [address] [address] [place] [address] PCP - General 10/02/11 01/11/22 documented as of this encounter
--- OUTSIDE RECORDS SUMMARY | 2024-02-09 02:16 | XMS_ITS | Encounter Summary ---
Author Organization [facility] Address [facility] [place] [address] Care Team Providers Care Rag Sorter Name Role Phone Nataliya Messina MD Primary Care Provider [phone] Reason for Visit * Reason Comments Follow-up Encounter Details Date Type Department Care Team (Late st Contact Info) Description 03/08/2018 10:30 AM EDT Office Visit Hematology/Oncology at [address] [phone] Heber Phillips MD [facility] DR HEMATOLOGY [place] [address] Small cell lung cancer, right upper lobe; [...] PMH: No interval changes since last visit [place] in 2013 status post 2 stents placement, [...] radiating to right leg ??? Myocardial infarction [place] about 6 years ago @ [facility] [...] Social History Narrative Lives with his in [place], [place]. 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 [...] MRI: IMPRESSION: No evidence of metastatic disease. [facility] 01/26/2018 Day, Cycle Day 1, Cycle 1 CARBOplatin (PARAPLATIN) IV 524 mg etoposide (VEPESID) IV 100 mg/m2/dose = 185 mg methylPREDNISolone acetate (DEPO-Medrol) Epid [facility]) 01/27/2018 Day, Cycle Day 2, Cycle 1 CARBOplatin (PARAPLATIN) IV etoposide (VEPESID) IV 100 mg/m2/dose = 185 mg methylPREDNISolone acetate (DEPO-Medrol) Epid [facility]) 01/28/2018 Day, Cycle Day 3, Cycle [...] including history of stroke, severe peripheralvascular disease, [place] status post stent placement and COPD. His [...] AM EDT Office Visit Hematology/Oncology at [address] [phone] Heber Phillips MD [facility] DR HEMATOLOGY [place] [address] Isabella Baker APRN [facility] [place] [address] documented as of this encounter Procedures Procedure [...] breath documented in this encounter Care Teams Rag Sorter Relationship Specialty Start Date End Date Nataliya Messina MD [address] [facility] [address] [place] [address] PCP - General 10/02/11 01/11/22 documented as of this encounter
--- OUTSIDE RECORDS SUMMARY | 2024-02-09 02:16 | XMS_ITS | Encounter Summary ---
Author Organization [facility] [address] Care Team Providers Care Snow Removal Supervisor Name Role Phone Nataliya Messina MD Primary Care Provider [phone] Encounter Details Date Type Department Care Team (Late st Contact Info) Description 03/29/2018 Notes Only Radiation Oncology at [address] [phone] Susan Larry RN Social History [...] AM EDT Office Visit Hematology/Oncology at [address] [phone] Heber Phillips MD [facility] DR [place] [address] Isabella Baker APRN [facility] [place] [address] documented as of this encounter Visit Diagnoses Not on filedocumented in this encounter Care Teams Snow Removal Supervisor Relationship Specialty Start Date End Date Nataliya Messina MD [address] [place] [address] [address] [place] [address] PCP - General 10/02/11 01/11/22 documented as of this encounter
--- OUTSIDE RECORDS SUMMARY | 2024-02-09 02:16 | XMS_ITS | Encounter Summary ---
Author Organization [place] [address] Care Team Providers Care Marketing Support Coordinator Name Role Phone Nataliya Messina MD Primary Care Provider [phone] Encounter Details Date Type Department Care Team (Latest Contact Info) Description 04/06/2018 - 04/06/2018 11:59 PM EDT Hospital Encounter [place] [phone] Mikhail Cadena MD [address] [place] [address] DR RADIATION ONCOLOGY [place], [place] [id number] Discharge Disposition: Home Social History Tobacco Use [...] AM EDT Office Visit Hematology/Oncology at [address] [phone] Heber Phillips MD [facility] [address] [place] [address] Isabella Baker APRN [facility] [place] [address] documented as of this encounter Procedures Procedure Name Priority Date/Time Associated Diagnosis Comments FILM LIBRARY STORAGE ONLY MR HEAD Routine 04/06/2018 12:00 AM EDT documented in this encounter Results * Film Library- Storage Only MR Head (04/06/2018 12:00 AM EDT) Narrative [facility] - 04/07/2018 2:09 PM EDT This exam is for storage only and is auto-finalizing. Mikhail Cadena MD [facility] FILM LIBRARY ORD ERABLES [place], [place] documented in this encounter Visit Diagnoses Not on filedocumented in this encounter Care Teams Marketing Support Coordinator Relationship Specialty Start Date End Date Nataliya Messina MD [address] [place] [address] [address] [place], [place] [id number] PCP - General 10/02/11 01/11/22 documented as of this encounter
--- OUTSIDE RECORDS SUMMARY | 2024-02-09 02:16 | XMS_ITS | Encounter Summary ---
[place] [address] Care Team Providers Care Basketball Coach Name Role Phone Nataliya Messina MD Primary Care Provider [phone] [phone] Encounter Details Date Type Department Care Team (Late Contact Info) Description 03/30/2018 Notes Only Hematology/Oncology at [address] [phone] Mya Saeed MSW OFFICE OF [...] AM EDT Office Visit Hematology/Oncology at [address] [phone] Heber Phillips MD [facility] DR HEMATOLOGY [place] [address] Isabella Baker APRN [facility] DR [place] [address] documented as of this encounter Visit Diagnoses Not on filedocumented in this encounter Care Teams Basketball Coach Relationship Specialty Start Date End Date Nataliya Messina MD [address] [place] [address] PCP - General 10/02/11 01/11/22 documented as of this encounter
--- OUTSIDE RECORDS SUMMARY | 2024-02-09 02:16 | XMS_ITS | Encounter Summary ---
[place] [address] Care Team Providers Care Ui Architect Name Role Phone Nataliya Messina MD Primary Care Provider [phone] Encounter Details Date Type Department Care Team (Late Contact Info) Description 03/31/2018 Notes Only Hematology/Oncology at [address] [phone] Mya Saeed MSW OFFICE OF [...] AM EDT Office Visit Hematology/Oncology at [address] [phone] Heber Phillips MD [facility] [address] [place] [address] Isabella Baker APRN [facility] [place] [address] documented as of this encounter Visit Diagnoses Not on filedocumented in this encounter Care Teams Ui Architect Relationship Specialty Start Date End Date Nataliya Messina MD [address] [place], [place] [address]Y [address] [place], [place] [address] PCP - General 10/02/11 01/11/22 documented as of this encounter
--- OUTSIDE RECORDS SUMMARY | 2024-02-09 02:16 | XMS_ITS | Encounter Summary ---
Author Organization [facility] Address [facility] [place] [address] Care Team Providers Care Cheese Cooker Name Role Phone Nataliya Messina MD Primary Care Provider [phone] Encounter Details Date Type Department Care Team (Late st Contact Info) Description 04/12/2018 2:00 PM EDT Office Visit Hematology/Oncology at [address] [phone] Thu Saldana APRN [facility] [place] [address] Small cell lung cancer Social History Tobacco [...] infarction [place] about 6 years ago @ [facility]-has stents ??? 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 Marital [...] Social History Narrative Lives with his in [place], [place]. 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 [...] AM EDT Office Visit Hematology/Oncology at [address] [phone] Heber Phillips MD [facility] DR HEMATOLOGY [place] [address] Iasbella Baker APRN [facility] [place] [address] documented as of this encounter Visit Diagnoses Diagnosis Small cell lung cancer Malignant neoplasm of bronchus and lung, unspecified site documented in this encounter Care Teams Cheese Cooker Relationship Specialty Start Date End Date Nataliya Messina MD [address] [facility] [place] [address] PCP - General 10/02/11 01/11/22 documented as of this encounter
--- OUTSIDE RECORDS SUMMARY | 2024-02-09 02:16 | XMS_ITS | Encounter Summary ---
Author Organization [facility] [place] [address] Care Team Providers Care Noodle Press Operator Name Role Phone Nataliya Messina MD Primary Care Provider [phone] Reason for Visit * Reason Comments Follow-up med check Chest Pain Encounter Details Date Type Department Care Team (Late st Contact Info) Description 03/21/2018 2:20 PM EDT Office Visit Cardiology at [address] [phone] Lauri Winn Jr., MD [address] [place] [address] ASCVD (arteriosclerotic cardiovascular disease); Non-cardiac chest pain [...] AM EDT Office Visit Hematology/Oncology at [address] [phone] Heber Phillips MD [facility] DR [place] [address] Isabella Baker APRN [facility] [place] [address] documented as of this encounter Visit Diagnoses Diagnosis ASCVD (arteriosclerotic cardiovascular disease) Unspecified cardiovascular disease Non-cardiac chest pain Other chest pain documented in this encounter Care Teams Noodle Press Operator Relationship Specialty Start Date End Date Nataliya Messina MD [address] [facility] 1 [place] [address] PCP - General 10/02/11 01/11/22 documented as of this encounter
--- OUTSIDE RECORDS SUMMARY | 2024-02-09 02:16 | XMS_ITS | Encounter Summary ---
Author Organization Formerly [facility] [place] [address] Care Team Providers Care Churn Operator Name Role Phone Nataliya Messina MD Primary Care Provider [phone] Encounter Details Date Type Department Care Team (Late st Contact Info) Description 03/24/2018 10:00 AM EDT Office Visit Radiation Oncology at [address] [phone] Mikhail Cadena MD [address] [place] [address] DR RADIATION ONCOLOGY [place], [place] [id number] Pain with swallowing; Small cell lung cancer, [...] 03/24/18 Mikhail Cadena MD, MS Radiation Oncology [facility] [phone] (paging furnace operator oil or gas) Pager #[phone] PATIENT IDENTIFICATION Name Hieu Tillman Date of [...] Current Dose: 54 Gy in 27 fractions Sandblast Carver [place] from Current Plan (minimum 60 Gy [...] AM EDT Office Visit Hematology/Oncology at [address] [phone] Heber Phillips MD [facility] [place] [address] Isabella Baker APRN [facility] [place] [address] documented as of this encounter Visit Diagnoses Diagnosis Pain with swallowing Dysphagia, unspecified Small cell lung cancer, right upper lobe documented in this encounter Care Teams Churn Operator Relationship Specialty Start Date End Date Nataliya Messina MD [address] [place] [address] [address] [place] [address] PCP - General 10/02/11 01/11/22 documented as of this encounter
--- OUTSIDE RECORDS SUMMARY | 2024-02-09 02:16 | XMS_ITS | Encounter Summary ---
Author Organization [facility] Address [facility] [place] [address] Care Team Providers Care Livestock Breeder Name Role Phone Nataliya Messina MD Primary Care Provider [phone] Reason for Visit * Reason Comments Chemotherapy * Treatment/Therapy Plan Authorization (Routine) - Closed Specialty Diagnoses / Procedures Referred By Keven lozano Referred To Contact Diagnoses Small cell lung cancer, right upper lobe Heber Phillips MD [facility] DR [place] [address] St Hem Onc Office [address] [place] [phone] Referral ID Status Reason Start Date Expiration Date Visits Re quested Visits Authorized [id number] Closed 01/20/2018 01/20/2019 1 1 Encounter Details Date Type Department Care Team (Late st Contact Info) Description 01/28/2018 1:00 PM EDT Infusion Hematology Oncology at [address] [phone] Small cell lung cancer, right [...] AM EDT Office Visit Hematology/Oncology at [address] [phone] Heber Phillips MD [facility] DR [place] [address] Isabella Baker APRN [facility] [place] [address] documented as of this encounter Visit Diagnoses [...] Job Aid: Adult Flushing & Catheter Care (2034) job aid for additional information regarding guidelines [...] Job Aid: Adult Flushing & Catheter Care (7284) job aid for additional information regarding guidelines and administration., Routine Given 01/28/2018 4:00 PM EDT 20 mLs documented in this encounter Care Teams Livestock Breeder Relationship Specialty Start Date End Date Nataliya Messina MD [address] [place] [address] [address] [place] [address] PCP - General 10/02/11 01/11/22 documented as of this encounter
--- OUTSIDE RECORDS SUMMARY | 2024-02-09 02:16 | XMS_ITS | Encounter Summary ---
Author Organization [facility] Address [facility] [place] [address] Care Team Providers Care Grain Roaster Name Role Phone Nataliya Messina MD Primary Care Provider [phone] Reason for Visit * Reason Comments Chemotherapy Cycle 2 Day1 Carbo/E toposide * Treatment/Therapy Plan Authorization (Routine) - Closed Specialty Diagnoses / Procedures Referred By Keven lozano Referred To Contact Diagnoses Small cell lung cancer, right upper lobe Heber Phillips MD [facility] DR [place] [address] St Hem Onc Office [address] [place] [phone] Referral ID Status Reason Start Date Expiration Date Visits Re quested Visits Authorized [id number] Closed 01/20/2018 01/20/2019 1 1 Encounter Details Date Type Department Care Team (Late st Contact Info) Description 02/15/2018 9:00 AM EDT Infusion Hematology Oncology at [address] [phone] Small cell lung cancer, right [...] patient's height, weight and BSA by Gretta Hopkins RN & Jarod Benitez [facility]. REACTIONS (DESCRIPTION, TIME, INTERVENTION AND EFFECTIVENESS) none ASSESSMENT Hieu Tillman was awake, alert and tolerated treatment well. PLAN Return to clinic per routine. documented in this encounter Plan of Treatment Upcoming Encounters Date Type Department Care Team (Late st Contact Info) Description 03/28/2024 10:00 AM EDT Office Visit Hematology/Oncology at [address] [phone] Heber Phillips MD [facility] DR [place] [address] Isabella Baker APRN [facility] [place] [address] documented as of this encounter Visit Diagnoses [...] 2 minutes is a recommendation from the car worker helper. Administer prior to chemotherapy., Routine Given 02/15/2018 [...] Job Aid: Adult Flushing & Catheter Care (5091) job aid for additional information regarding guidelines [...] Job Aid: Adult Flushing & Catheter Care (1660) job aid for additional information regarding guidelines and administration., Routine Given 02/15/2018 1:10 PM EDT 20 mLs sodium chloride 0.9% infusion 1,000 mL, at 1,000 mL/hr, Intravenous, ONCE, 1 dose, On Tu02/15/18 at 0930 New Bag 02/15/2018 8:59 AM EDT 1,000 mLs 1000 mL/hr documented in this encounter Care Teams Grain Roaster Relationship Specialty Start Date End Date Nataliya Messina MD [address] [facility] [address] [facility] 1 [place] [address] PCP - General 10/02/11 01/11/22 documented as of this encounter
--- OUTSIDE RECORDS SUMMARY | 2024-02-09 02:16 | XMS_ITS | Encounter Summary ---
Author Organization [facility] Address [facility] [place] [address] Care Team Providers Care Dry Mill Operator Name Role Phone Nataliya Messina MD Primary Care Provider [phone] Encounter Details Date Type Department Care Team (Latest Contact Info) Description 03/25/2018 10:30 AM EDT Clinical Support Hematology/Oncology at [address] [phone] [facility] [place] [address] Small cell lung cancer, right upper lobe [...] Curry RD - 03/25/2018 10:30 AM EDT [facility] Dietitian Follow Up Assessment Seen By: Leona Curry MS, RD, BUSINESS DEPARTMENT CHAIR, LD Patient and diagnosis: High-grade neuroendocrine cancer [...] hasn't started drinking; thought he needed a general matcher. ___ Other: Teas, vitamins, or other nutritional [...] AM EDT Office Visit Hematology/Oncology at [address] [phone] Heber Phillips MD [facility] DR HEMATOLOGY [place] [address] Isabella Baker APRN [facility] [place] [address] documented as of this encounter Visit Diagnoses Diagnosis Small cell lung cancer, right upper lobe documented in this encounter Care Teams Dry Mill Operator Relationship Specialty Start Date End Date Nataliya Messina MD [address] [place] [address] PCP - General 10/02/11 01/11/22 documented as of this encounter
--- OUTSIDE RECORDS SUMMARY | 2024-02-09 02:16 | XMS_ITS | Encounter Summary ---
Author Organization [facility] [place] [address] Care Team Providers Care Register Repairer Name Role Phone Nataliya Messina MD Primary Care Provider Encounter Details Date Type Department Care Team (Late st Contact Info) Description 02/15/2018 8:00 AM EDT Office Visit Hematology/Oncology at [address] [phone] Deisi Louis, MANAGER RADIO [address] [facility] [place] [address] Small cell lung cancer, right upper lobe; [...] this encounter Progress Notes * Deisi Louis, MANAGER RADIO - 02/15/2018 8:00 AM EDT Diagnosis: High-grade [...] referred for consideration of definitive chemoradiation. 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 Marital status: [...] Social History Narrative Lives with his in [place], [place]. 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 [...] 4. I will refer him to the quality assurance group leader for nutritional support. Deisi Louis, MSN, TELEPHONIC RN, AOCN Hematology/Oncology Nurse Practitioner [place], [place] [phone] documented in this encounter Plan of Treatment Upcoming Encounters Date Type Department Care Team (Late st Contact Info) Description 03/28/2024 10:00 AM EDT Office Visit Hematology/Oncology at [address] [phone] Heber Phillips MD [facility] DR [place] [address] Isabella Baker APRN [facility] [place] [address] documented as of this encounter Visit Diagnoses Diagnosis Small cell lung cancer, right upper lobe Mass of upper lobe of right lung documented in this encounter Care Teams Register Repairer Relationship Specialty Start Date End Date Nataliya Messina MD [address] [place] [address] PCP - General 10/02/11 01/11/22 documented as of this encounter
--- OUTSIDE RECORDS SUMMARY | 2024-02-09 02:16 | XMS_ITS | Encounter Summary ---
[place] [address] Care Team Providers Care Phys Therapist Name Role Phone Nataliya Messina MD Primary Care Provider [phone] Encounter Details Date Type Department Care Team (Late st Contact Info) Description 03/30/2018 Notes Only Hematology/Oncology at [address] [phone] Mya Saeed MSW OFFICE OF [...] injury or illness, and identifying personal or episcopalian beliefs that might affect decisions) To understand [...] An opportunity was offered to explore how episcopalian, cultural, or personal beliefs would affect decisions [...] personal physician, and others as appropriate (e.g., supervising librarian, hospital) Health care agent is present: [place] of Health Care Agent: Pt considering his two sons and plans to discuss this further with them. Additional information Goals and values identified: Fears and concerns identified: Treatment decisions: Follow up: Pt had several discussions re ACP. He has been given the [place] AD booklet/form to review. Conversation status: Second conversation Advanced directive was completed: No Time for conversation: 15-30 minutes documented in this encounter Plan of Treatment Upcoming Encounters Date Type Department Care Team (Late st Contact Info) Description 03/28/2024 10:00 AM EDT Office Visit Hematology/Oncology at [address] [phone] Heber Phillips MD [facility] DR HEMATOLOGY [place] [address] Isabella Baker APRN [facility] [place] [address] documented as of this encounter Visit Diagnoses Not on filedocumented in this encounter Care Teams Phys Therapist Relationship Specialty Start Date End Date Nataliya Messina MD [address] [place] [place], [place] [address]Y [address] [address] PCP - General 10/02/11 01/11/22 documented as of this encounter
--- OUTSIDE RECORDS SUMMARY | 2024-02-09 02:16 | XMS_ITS | Encounter Summary ---
Author Organization [facility] Address [facility] [address] Care Team Providers Care Bone Tender Name Role Phone None Primary Care Provider Unavailabl e Reason for Visit * Reason Comments Medication Refill Encounter Details Date Type Department Care Team (Late Contact Info) Description 04/23/2018 Refill Radiation Oncology at [address] [phone] Mikhail Cadena MD [address] [place] [address] DR RADIATION ONCOLOGY [place], [place] [id number] Small cell lung cancer, right upper lobe; [...] AM EDT Office Visit Hematology/Oncology at [address] [phone] Heber Phillips MD [facility] HEMATOLOGY [place] [address] Isabella Baker APRN [facility] [place] [address] documented as of this encounter Visit Diagnoses Diagnosis Small cell lung cancer, right upper lobe Pain with swallowing Dysphagia, unspecified documented in this encounter Care Teams Bone Tender Relationship Specialty Start Date End Date None None PCP - General 01/12/22 11/02/22 documented as of this encounter
--- OUTSIDE RECORDS SUMMARY | 2024-02-09 02:16 | XMS_ITS | Encounter Summary ---
[place] [address] Care Team Providers Care Integrated Specialist Name Role Phone Nataliya Messina MD Primary Care Provider [phone] Encounter Details Date Type Department Care Team (Late st Contact Info) Description 03/31/2018 Notes Only Hematology/Oncology at [address] [phone] Mya Saeed MSW OFFICE OF [...] injury or illness, and identifying personal or latter-day beliefs that might affect decisions) To understand [...] An opportunity was offered to explore how latter-day, cultural, or personal beliefs would affectdecisions for [...] personal physician, and others as appropriate (e.g., physician extender, hospital) Health care agent is present: [place] of Health Care Agent: [place] Tillman, son; [...] AM EDT Office Visit Hematology/Oncology at [address] [phone] Heber Phillips MD [facility] DR HEMATOLOGY [place] [address] Isabella Baker APRN [facility] [place] [address] documented as of this encounter Visit Diagnoses Not on filedocumented in this encounter Care Teams Integrated Specialist Relationship Specialty Start Date End Date Nataliya Messina MD [address] [place] [address] [address] PCP - General 10/02/11 01/11/22 documented as of this encounter
--- OUTSIDE RECORDS SUMMARY | 2024-02-09 02:16 | XMS_ITS | Encounter Summary ---
Author Organization [facility] Address [facility] [place] [address] Care Team Providers Care Compressor Engineer Name Role Phone Nataliya Messina MD Primary Care Provider [phone] Reason for Visit * Reason Comments Chemotherapy cycle 1 day 2 * Treatment/Therapy Plan Authorization (Routine) - Closed Specialty Diagnoses / Procedures Referred By Keven lozano Referred To Contact Diagnoses Small cell lung cancer, right upper lobe Heber Phillips MD [facility] DR HEMATOLOGY [place] [address] St Hem Onc Office [address] [place] [phone] Referral ID Status Reason Start Date Expiration Date Visits Re quested Visits Authorized [id number] Closed 01/20/2018 01/20/2019 1 1 Encounter Details Date Type Department Care Team (Late st Contact Info) Description 01/27/2018 9:00 AM EDT Infusion Hematology Oncology at [address] [phone] Small cell lung cancer, [...] DATA: WNL IV ACCESS: Mediport accessed from [facility] yesterday, excellent blood return Pre administration: Chemotherapy [...] clinic hours (8am-5pm Wednesday-Wednesday): pt. can call [phone] with questions or concerns. After clinic hours (5pm-8am Wednesday-Wednesday and weekends) pt can call [phone] and ask for the gis mapping technician/oncologist service person. Hieu Tillman verbalized understanding of potential chemotherapy [...] AM EDT Office Visit Hematology/Oncology at [address] [phone] Heber Phillips MD [facility] DR HEMATOLOGY [place] [address] Isabella Baker APRN [facility] [place] [address] documented as of this encounter Visit Diagnoses [...] (IV) Procedure: Accessing Implanted Vascular Access Devices (444) procedure and/or Intravenous (IV) Job Aid: Adult Flushing & Catheter Care (1690) job aid for additional information regarding guidelines [...] Job Aid: Adult Flushing & Catheter Care (7616) job aid for additional information regarding guidelines and administration., Routine Given 01/27/2018 12:09 PM EDT 20 mLs documented in this encounter Care Teams Compressor Engineer Relationship Specialty Start Date End Date Nataliya Messina MD [address] [facility] [address] [address] [address] [place] [address] PCP - General 10/02/11 01/11/22 documented as of this encounter
--- OUTSIDE RECORDS SUMMARY | 2024-02-09 02:16 | XMS_ITS | Encounter Summary ---
Author Organization [facility] [place] [address] Care Team Providers Care Ediphone Operator Name Role Phone Nataliya Messnia MD Primary Care Provider [phone] Encounter Details Date Type Department Care Team (Late st Contact Info) Description 02/24/2018 10:30 AM EDT Office Visit Radiation Oncology at [address] [phone] Mikhail Cadena MD [address] [place] [address] [place] [address] Small cell lung cancer, right [...] 02/24/18 Mikhail Cadena MD, MS Radiation Oncology [facility] [phone] (paging carving machine operator) Pager #[phone] PATIENT IDENTIFICATION Name Hieu Tillman Date of [...] Current Dose: 14 Gy in 7 fractions Informatics Developer [place] from Current Plan (minimum 60 Gy isodose [...] Continue treatment as planned. Will notify his software test analyst regarding the need for NTG. documented in this encounter Plan of Treatment Upcoming Encounters Date Type Department Care Team (Late st Contact Info) Description 03/28/2024 10:00 AM EDT Office Visit Hematology/Oncology at [address] [phone] Heber Phillips MD [facility] DR [place] [address] Isabella Baker APRN [facility] [place] [address] documented as of this encounter Visit Diagnoses Diagnosis Small cell lung cancer, right upper lobe documented in this encounter Care Teams Ediphone Operator Relationship Specialty Start Date End Date Nataliya Messina MD [address] [place] [address] PCP - General 10/02/11 01/11/22 documented as of this encounter
--- OUTSIDE RECORDS SUMMARY | 2024-02-09 02:16 | XMS_ITS | Encounter Summary ---
Author Organization [facility] Address [facility] [place] [address] Care Team Providers Care Paper Twister Tender Name Role Phone Nataliya Messina MD Primary Care Provider +[phone] Reason for Visit * Treatment/Therapy Plan Authorization (Routine) - Closed Specialty Diagnoses / Procedures Referred By Contac t Referred To Contact Diagnoses Small cell lung cancer, right upper lobe Heber Phillips MD [facility] [address] [place] [address] St Hem Onc Office [address] [place] [phone] Referral ID Status Reason Start Date Expiration Date Visits Re quested Visits Authorized [id number] Closed 01/20/2018 01/20/2019 1 1 Encounter Details Date Type Department Care Team (Late st Contact Info) Description 02/17/2018 9:30 AM EDT Infusion Hematology Oncology at [address] [phone] Small cell lung cancer, right [...] AM EDT Office Visit Hematology/Oncology at [address] [phone] Heber Phillips MD [facility] [address] [place] [address] Isabella Baker APRN [facility] [place] [address] documented as of this encounter Visit Diagnoses [...] Job Aid: Adult Flushing & Catheter Care (3371) job aid for additional information regarding guidelines [...] Job Aid: Adult Flushing & Catheter Care (4974) job aid for additional information regarding guidelines and administration., Routine Given 02/17/2018 1:01 PM EDT 20 mLs documented in this encounter Care Teams Paper Twister Tender Relationship Specialty Start Date End Date Nataliya Messina MD [address] [place] [address] PCP - General 10/02/11 01/11/22 documented as of this encounter
--- OUTSIDE RECORDS SUMMARY | 2024-02-09 02:16 | XMS_ITS | Encounter Summary ---
Author Organization [facility] Address [facility] [place] [address] Care Team Providers Care Epidemiology Intern Name Role Phone Nataliya Messina MD Primary Care Provider Reason for Visit * Reason Comments Chemotherapy Cycle 4, Day 2 -- Et oposide * Treatment/Therapy Plan Authorization (Routine) - Closed Specialty Diagnoses / Procedures Referred By Keven lozano Referred To Contact Diagnoses Small cell lung cancer, right upper lobe Heber Phillips MD [facility] DR [place] [address] St Hem Onc Office [address] [place] [phone] Referral ID Status Reason Start Date Expiration Date Visits Re quested Visits Authorized [id number] Closed 01/20/2018 01/20/2019 1 1 Encounter Details Date Type Department Care Team (Late st Contact Info) Description 03/31/2018 10:00 AM EDT Infusion Hematology Oncology at [address] [phone] Small cell lung cancer, right [...] by Fredi Silva RN and Arjun Benitez [facility]. REACTIONS (DESCRIPTION, TIME, INTERVENTION AND EFFECTIVENESS) [...] AM EDT Office Visit Hematology/Oncology at [address] [phone] Heber Phillips MD [facility] DR [place] [address] Isabella Baker APRN [facility] [place] [place] [address] documented as of this encounter Visit Diagnoses [...] Job Aid: Adult Flushing & Catheter Care (0656) job aid for additional information regarding guidelines [...] Job Aid: Adult Flushing & Catheter Care (0321) job aid for additional information regarding guidelines and administration., Routine Given 03/31/2018 1:05 PM EDT 20 mLs documented in this encounter Care Teams Epidemiology Intern Relationship Specialty Start Date End Date Nataliya Messina MD [address] [place] [address] PCP - General 10/02/11 01/11/22 documented as of this encounter
--- OUTSIDE RECORDS SUMMARY | 2024-02-09 02:16 | XMS_ITS | Encounter Summary ---
Author Organization [facility] Address [facility] [place] [address] Care Team Providers Care Emergency Dept Tech Name Role Phone Nataliya Messina MD Primary Care Provider [phone] Encounter Details Date Type Department Care Team (Latest Contact Info) Description 03/03/2018 10:45 AM EDT Clinical Support Hematology/Oncology at [address] [phone] [facility] [place] [address] Small cell lung cancer, right upper lobe [...] Curry RD - 03/03/2018 10:45 AM EDT [facility] Dietitian Assessment Seen By: Leona Curry MS, RD, TURN SEWER, LD Referred by: Reason for visit: Patient [...] AM EDT Office Visit Hematology/Oncology at [address] [phone] Heber Phillips MD [facility] [place] [address] Isabella Baker APRN [facility] [place] [address] documented as of this encounter Visit Diagnoses Diagnosis Small cell lung cancer, right upper lobe documented in this encounter Care Teams Emergency Dept Tech Relationship Specialty Start Date End Date Nataliya Messina MD [address] [place] [address] PCP - General 10/02/11 01/11/22 documented as of this encounter
--- OUTSIDE RECORDS SUMMARY | 2024-02-09 02:16 | XMS_ITS | Encounter Summary ---
[place] [address] Care Team Providers Care Formulator Name Role Phone Nataliya Messina MD Primary Care Provider [phone] Reason for Visit * Reason Onset Date Comments Labs Only 04/19/2018 Lab Tracking Encounter Details Date Type Department Care Team (Late st Contact Info) Description 04/19/2018 Telephone Hematology Oncology at [address] [phone] Alyssa Irene RN Labs Only [...] PM EDT LAB TRACKING Primo Britta Roche [id number] DIAGNOSIS: Lung Cancer LABS ORDERED: CBC/CMP Results [...] AM EDT Office Visit Hematology/Oncology at [address] [phone] Heber Phillips MD [facility] DR HEMATOLOGY [place] [address] Isabella Baker APRN [facility] [place] [address] documented as of this encounter Procedures Procedure Name Priority Date/Time Associated Diagnosis Comments CBC (WITH DIFF) Routine 04/19/2018 9:12 AM EDT COMPREHENSIVE METABOLIC PANEL Routine 04/19/2018 9:12 AM EDT documented in this encounter Results * Comprehensive metabolic panel (non-fasting) (04/19/2018 9:12 AM EDT) Glucose 111 Blood Urea Nitrogen 24 Creatinine 1.19 Est Glomerular Filtration Rate >=60.00 Sodium 135 Potassium 4.0 Chloride 98 Carbon Dioxide 28 Calcium 9.5 Blood specimen (specimen) 04/19/2018 9:12 AM EDT Historical Provider CHEMISTRY ORDERAB LES * CBC (with Diff) (04/19/2018 9:12 AM EDT) White Blood Cell 4.26 Red Blood Cell 3.01 Hemoglobin 8.9 Hematocrit 26.8 Mean Cell Volume 89.0 Mean Cell Hemoglobin 29.6 Mean Cell Hemoglobin Concentration 33.2 RDW coefficient of variation 22.7 Platelet 296 Mean Platelet Volume 8.8 Neutrophil % 52.0 Lymph % 8.0 Monocyte % 19.0 Eosinophil Manual 0 Basophil % 0.0 ANC 2.68 Lymph Absolute Manual 0.43 Blood specimen (specimen) 04/19/2018 9:12 AM EDT Historical Provider HEMATOLOGY ORDERA BLES documented in this encounter Visit Diagnoses Diagnosis Small cell lung cancer, right upper lobe documented in this encounter Care Teams Formulator Relationship Specialty Start Date End Date Nataliya Messina MD [address] [place] [address] PCP - General 10/02/11 01/11/22 documented as of this encounter
--- OUTSIDE RECORDS SUMMARY | 2024-02-09 02:16 | XMS_ITS | Encounter Summary ---
[place] [address] Care Team Providers Care Correctional Counselor Name Role Phone Nataliya Messina MD Primary Care Provider [phone] Encounter Details Date Type Department Care Team (Latest Contact Info) Description 03/21/2018 Unscheduled Encounter Radiation Oncology at [address] [phone] Sheba Alvarez RN Pain with [...] 10:42 AM EDT Radiation Oncology Nurse Note [place], [place] Radiation Oncology Nursing on Treatment Note [...] accepted: Orders * Addendum Note - Sheba Alvarez RN - 03/21/2018 5:08 PM EDTAddended by: SHEBA ALVAREZ on: 03/21/2018 05:08 PM Modules accepted: Orders documented in this encounter Plan of Treatment Upcoming Encounters Date Type Department Care Team (Late st Contact Info) Description 03/28/2024 10:00 AM EDT Office Visit Hematology/Oncology at [address] [phone] Heber Phillips MD [facility] DR HEMATOLOGY [place] [address] Isabella Baker APRN [facility] [place] [address] documented as of this encounter Visit Diagnoses Diagnosis Pain with swallowing Dysphagia, unspecified Small cell lung cancer, right upper lobe Severe swallowing dysfunction Dysphagia, unspecified documented in this encounter Care Teams Correctional Counselor Relationship Specialty Start Date End Date Nataliya Messina MD [address] [place] [address] PCP - General 10/02/11 01/11/22 documented as of this encounter
--- OUTSIDE RECORDS SUMMARY | 2024-02-09 02:16 | XMS_ITS | Encounter Summary ---
Author Organization [facility] [place] [address] Care Team Providers Care Optometric Technologist Name Role Phone Nataliya Messina MD Primary Care Provider [phone] Encounter Details Date Type Department Care Team (Late Contact Info) Description 03/31/2018 Orders Only Radiation Oncology at [address] [phone] Mikhail Cadena MD [address] [place] [address] [place] [address] Small cell lung cancer, right [...] AM EDT Office Visit Hematology/Oncology at [address] [phone] Heber Phillips MD [facility] DR HEMATOLOGY [place] [address] Isabella Baker APRN [facility] [place] [address] documented as of this encounter Visit Diagnoses Diagnosis Small cell lung cancer, right upper lobe documented in this encounter Care Teams Optometric Technologist Relationship Specialty Start Date End Date Nataliya Messina MD [address] [place] [address] PCP - General 10/02/11 01/11/22 documented as of this encounter
--- OUTSIDE RECORDS SUMMARY | 2024-02-09 02:16 | XMS_ITS | Encounter Summary ---
Author Organization [facility] Address [facility] [place] [address] Care Team Providers Care Dean For Student Affairs Name Role Phone Nataliya Messina MD Primary Care Provider Reason for Visit * Reason Comments Chemotherapy Cycle 4, Day 3 -- Et oposide * Treatment/Therapy Plan Authorization (Routine) - Closed Specialty Diagnoses / Procedures Referred By Keven lozano Referred To Contact Diagnoses Small cell lung cancer, right upper lobe Heber Phillips MD [facility] DR [place] [address] St Hem Onc Office [address] [place] [phone] Referral ID Status Reason Start Date Expiration Date Visits Re quested Visits Authorized [id number] Closed 01/20/2018 01/20/2019 1 1 Encounter Details Date Type Department Care Team (Late st Contact Info) Description 04/01/2018 10:00 AM EDT Infusion Hematology Oncology at [address] [phone] Small cell lung cancer, right [...] in this encounter Progress Notes * Dung Barajas RN - 04/01/2018 10:00 AM EDT INFUSION [...] by Jacob Hamm RN and Arjun Benitez [facility]. REACTIONS (DESCRIPTION, TIME, INTERVENTION AND EFFECTIVENESS) [...] AM EDT Office Visit Hematology/Oncology at [address] [phone] Heber Phillips MD [facility] [place] [address] Isabella Baker APRN [facility] [place] [address] documented as of this encounter Visit Diagnoses [...] mL/hr documented in this encounter Care Teams Dean For Student Affairs Relationship Specialty Start Date End Date Nataliya Messina MD [address] [place] [address] PCP - General 10/02/11 01/11/22 documented as of this encounter
--- OUTSIDE RECORDS SUMMARY | 2024-02-09 02:16 | XMS_ITS | Encounter Summary ---
[place] [address] Care Team Providers Care Press Operator Instant Print Shop Name Role Phone Nataliya Messina MD Primary Care Provider Reason for Visit * Reason Onset Date Comments Diarrhea 02/04/2018 Follow up Encounter Details Date Type Department Care Team (Late st Contact Info) Description 02/04/2018 Telephone Hematology/Oncology at [address] [phone] Kiley Silva RN Diarrhea (Follow [...] much better today. He is advised to black pickler the prescription anyway and to call for [...] AM EDT Office Visit Hematology/Oncology at [address] [phone] Heber Phillips MD [facility] [place] [address] Isabella Baker APRN [facility] [place] [place] [address] documented as of this encounter Visit Diagnoses Not on filedocumented in this encounter Care Teams Press Operator Instant Print Shop Relationship Specialty Start Date End Date Nataliya Messina MD [address] [place] [address] [address] [place], [place] [address] PCP - General 10/02/11 01/11/22 documented as of this encounter
--- OUTSIDE RECORDS SUMMARY | 2024-02-09 02:16 | XMS_ITS | Encounter Summary ---
[place] [address] Care Team Providers Care Thread Pulling Machine Attendant Name Role Phone Nataliya Messina MD Primary Care Provider [phone] Encounter Details Date Type Department Care Team (Late st Contact Info) Description 03/10/2018 2:15 PM EDT Office Visit Radiation Oncology at [address] [phone] Mikhail Cadena MD [address] [place] [address] [place] [address] Small cell [...] 03/10/18 Mikhail Cadena MD, MS Radiation Oncology [facility] [phone] (paging information systems operator) Pager #[phone] PATIENT IDENTIFICATION Name Hieu Tillman Date of [...] Current Dose: 34 Gy in 17 fractions Grain Scooper Lantigua from Current Plan (minimum 60 Gy [...] week. Eating normal diet. MEDS Medications 03/10/18 5998 Medication Sig Taking? sucralfate (CARAFATE) 1 gram [...] AM EDT Office Visit Hematology/Oncology at [address] [phone] Heber Phillips MD [facility] [place] [address] Isabella Baker APRN [facility] [place] [place] [address] documented as of this encounter Visit Diagnoses Diagnosis Small cell lung cancer, right upper lobe Pain with swallowing Dysphagia, unspecified documented in this encounter Care Teams Thread Pulling Machine Attendant Relationship Specialty Start Date End Date Nataliya Messina MD [address] [place] [address] PCP - General 10/02/11 01/11/22 documented as of this encounter
--- OUTSIDE RECORDS SUMMARY | 2024-02-09 02:17 | XMS_ITS | Encounter Summary ---
Author Organization [facility] Address [facility] [place] [address] Care Team Providers Care Quality Assurance Director Name Role Phone Nataliya Messina MD Primary Care Provider [phone] Encounter Details Date Type Department Care Team (Late Contact Info) Description 01/11/2018 Orders Only Hematology/Oncology at [address] [phone] Heber Phillips MD [facility] [place] [address] Social History Tobacco Use Types Packs/Day Years [...] AM EDT Office Visit Hematology/Oncology at [address] [phone] Heber Phillips MD [facility] HEMATOLOGY [place] [address] Isabella Baker APRN [facility] [place] [address] documented as of this encounter Visit Diagnoses Not on filedocumented in this encounter Care Teams Quality Assurance Director Relationship Specialty Start Date End Date Nataliya Messina MD [address] [place] [address] PCP - General 10/02/11 01/11/22 documented as of this encounter
--- OUTSIDE RECORDS SUMMARY | 2024-02-09 02:17 | XMS_ITS | Encounter Summary ---
[place] [address] Care Team Providers Care Potato Chip Processing Supervisor Name Role Phone Nataliya Messina MD Primary Care Provider [phone] Encounter Details Date Type Department Care Team (Latest Contact Info) Description 12/28/2017 4:00 PM EDT Clinical Support [facility] Day at [facility] [place] [phone] Mass of right lung Social History Tobacco [...] AM EDT Office Visit Hematology/Oncology at [address] [phone] Heber Phillips MD [facility] [place] [address] Isabella Baker APRN [facility] [place] [address] documented as of this encounter Results * EKG 12 Lead (12/28/2017 4:53 PM EDT) Ventricular rate 72 BPM MUSE SYSTEM Atrial Rate 72 BPM MUSE SYSTEM P-R Interval 136 ms MUSE SYSTEM QRS Duration 80 ms MUSE SYSTEM Q-T Interval 394 ms MUSE SYSTEM QTC Calculated (Bezet) 431 ms MUSE SYSTEM Calculated P Champion 55 degrees MUSE SYSTEM Calculated R Champion 71 degrees MUSE SYSTEM Calculated T Champion 73 degrees MUSE SYSTEM INTERPRETATION Normal sinus [...] (No note.) Kingsley Ortiz MD ECG ORDERABLES MUSE SYSTEM documented in this encounter Visit Diagnoses Diagnosis Mass of right lung documented in this encounter Care Teams Potato Chip Processing Supervisor Relationship Specialty Start Date End Date Nataliya Messina MD [address] [place] [address] PCP - General 10/02/11 01/11/22 documented as of this encounter
--- OUTSIDE RECORDS SUMMARY | 2024-02-09 02:17 | XMS_ITS | Encounter Summary ---
Author Organization [facility] [place] [address] Care Team Providers Care Air Brakes Inspector Name Role Phone Nataliya Messina MD Primary Care Provider [phone] Encounter Details Date Type Department Care Team (Late Contact Info) Description 12/29/2017 Telephone [place] [phone] Cady Petersen Social History Tobacco Use Types [...] Upcoming Encounters Date Type Department Care Team ([facility] Contact Info) Description 03/28/2024 10:00 AM EDT Office Visit Hematology/Oncology at [address] [phone] Heber Phillips MD [facility] DR [place] [address] Isabella Baker APRN [facility] [place] [address] documented as of this encounter Visit Diagnoses Not on filedocumented in this encounter Care Teams Air Brakes Inspector Relationship Specialty Start Date End Date Nataliya Messina MD [address] [place] [address] PCP - General 10/02/11 01/11/22 documented as of this encounter
--- OUTSIDE RECORDS SUMMARY | 2024-02-09 02:17 | XMS_ITS | Encounter Summary ---
[place] [address] Care Team Providers Care Canvas Goods Maker Name Role Phone Nataliya Messina MD Primary Care Provider [phone] Encounter Details Date Type Department Care Team (Late st Contact Info) Description 12/29/2017 Telephone [place] [phone] Cady Petersen Social History Tobacco Use Types [...] him know to meet maya at the healthcare receptionist desk on 01/03 around 1:00 to talk about study. Also need to ask him his safety questions, he needs a PET and MRI, he wanted them done but [facility] only can do the MRI. Going to see if he will just come to [facility] and do themhere. documented in this encounter Plan of Treatment Upcoming Encounters Date Type Department Care Team (Late st Contact Info) Description 03/28/2024 10:00 AM EDT Office Visit Hematology/Oncology at [address] [phone] Heber Phillips MD [facility] DR [place] [address] Isabella Baker APRN [facility] [place] [address] documented as of this encounter Visit Diagnoses Not on filedocumented in this encounter Care Teams Canvas Goods Maker Relationship Specialty Start Date End Date Nataliya Messina MD [address] [place] [address] PCP - General 10/02/11 01/11/22 documented as of this encounter
--- OUTSIDE RECORDS SUMMARY | 2024-02-09 02:17 | XMS_ITS | Encounter Summary ---
Author Organization [facility] Address [facility] [place] [address] Care Team Providers Care Client Advocate Name Role Phone Nataliya Messina MD Primary Care Provider [phone] Reason for Referral * Consultation (Routine) - Closed Specialty Diagnoses / Procedures Referred By Contac t Referred To Contact Radiation Oncology Diagnoses Small cell lung cancer, right upper lobe Procedures Simulation for Radiation Therapy Planning Mikhail Cadena MD [address] [place] [address] [place] [address] [facility] Rad Onc Office [address] [place] [phone] Referral ID Status Reason Start Date Expiration Date V isits Requested Visits Authorized [id number] Closed Consult, Test & Treat 01/17/2018 01/17/2019 1 1 Reason for Visit * Consultation (Routine) - Closed Specialty Diagnoses / Procedures Referred By Contac t Referred To Contact Radiation Oncology Diagnoses Mass of right lung Kingsley Ortiz MD [facility] [place] [address] Mikhail Cadena MD [address] [place] [address] [place] [address] Referral ID Status Reason Start Date Expiration Date V isits Requested Visits Authorized [id number] Closed Consult, Test & Treat 01/11/2018 01/11/2019 1 1 Encounter Details Date Type Department Care Team (Late st Contact Info) Description 01/17/2018 2:00 PM EDT Office Visit Radiation Oncology at [address] [phone] Mikhail Cadena MD [address] [place] [address] [place] [address] Small cell lung cancer, right [...] side effects of treatmentas well as possible petroleum terminal plant operator (late, permanent) side effects of radiation treatment. If they occur,short term side effects may include cough, shortness of breath, heartburn or fatigue. intermodal customer service side effects may include permanent damage to [...] do not hesitate to call me at [phone] with any other questions or concerns you have. IfI am not here, one of our radiation oncology nurses can assist you or help you get in touch with me. A Radiation Oncology doctor is also content development manager after our normal hours and on weekends for urgent questions or concerns related to radiation treatments that can not wait until normal business hours. To reach the on-call doctor after-hours, just call and have the percussion welding machine operator page the Radiation Oncologist content development manager. And, as always, if you experience any [...] Fall resulting in injury 7. Uncontrollable bleeding Mikhali Dutta MD Master Merchandisernutrition counselor Radiation Oncology [facility] documented in this encounter Progress Notes * Mikhail Cadena MD - 01/17/2018 2:00 PM EDT Images from the original note were not included. Radiation Oncology Consult Note Mikhail Cadena MD, MS [facility] [phone] PATIENT IDENTIFICATION: PATIENT NAME: Hieu Tillman DATE OF : 1955 REFERRING PROVIDER: Kingsley Ortiz MD [facility] [place] [address] REASON FOR CONSULTATION : Small cell lung [...] radiating to right leg ??? Myocardial infarction [place] about 6 years ago @ [facility]-has stents ??? PVD (peripheral vascular [...] ANGIOPLASTY WITH STENT PLACEMENT ? ? PRO [facility] EBUS GUIDED SAMPL 3/> NODE STATION/STRUX N/A 01/05/2018 BRONCH, W ENDOBRONCHIAL ULTRASOUND (EBUS) GUIDED SAMPLING, 3+ NODES (WRVU 5.21) performed by Kingsley Ortiz MD at [facility] MAIN OR ??? PRO THROMBOENDARTECTMY NECK, NECK INCIS Right 10/20/2016 @ENDARTERECTOMY, CAROTID, VERTEBRAL,SUBCLAVIAN W\WO PATCH GRAFT (WRVU 21.16) performed by Omero Wills MD at [facility] MAIN OR CONTRAINDICATIONS TO RADIATION THERAPY: [...] History of anaphylaxis as well. SOCIAL HISTORY: [place]: [place], [place] Living Situation: Lives alone, is in the process of getting a divorce. Sisters / neighbors are his primary social support. 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 Y IMAGING REVIEW: I have personally reviewed the following scans, and interpret them as follows. PET/CT 12/31/17 - large hilar mass with satellite nodule. No other regional or distant metastatic disease. Band Aid Machine Operator imaging copied below. ASSESSMENT / PLAN: Hieu [...] minute visit was spent with the patient [id number] reviewing his interval medical history and answering [...] AM EDT Office Visit Hematology/Oncology at [address] [phone] Heber Phillips MD [facility] DR HEMATOLOG[place] [address] Isabella Baker APRN [facility] [place] [address] Scheduled Orders Name Type Priority Associated Diagnoses Orde r Schedule Simulation for Radiation Therapy Planning Procedures Routine Small cell lung cancer, right upper lobe Ordered: 01/17/2018 documented as of this encounter Visit Diagnoses Diagnosis Small cell lung cancer, right upper lobe documented in this encounter Care Teams Client Advocate Relationship Specialty Start Date End Date Nataliya Messina MD [address] [place] [address] [address] [place] [address] PCP - General 10/02/11 01/11/22 documented as of this encounter
--- OUTSIDE RECORDS SUMMARY | 2024-02-09 02:17 | XMS_ITS | Encounter Summary ---
Author Organization [facility] [place] [address] Care Team Providers Care Mental Hygienist Name Role Phone Nataliya Messina MD Primary Care Provider Reason for Referral * Diagnostic Test (Routine) - Closed Specialty Diagnoses / Procedures Referred By Contac t Referred To Contact Radiology Diagnoses Small cell lung cancer Procedures IR Mediport Placement / Exchange Heber Phillips MD [facility] DR HEMATOLOGY [place] [address] [place] [address] Referral ID Status Reason Start Date Expiration Date V isits Requested Visits Authorized [id number] Closed Specialty Service Requested 01/20/2018 01/20/2019 1 1 Reason for Visit * Reason Comments Cancer * Consultation (Routine) - Closed Specialty Diagnoses / Procedures Referred By Contac t Referred To Contact Hematology and Oncology Diagnoses Mass of right lung iKngsley Ortiz MD [facility] [place] [address] St Hem Onc Office [address] [place] [phone] Referral ID Status Reason Start Date Expiration Date V isits Requested Visits Authorized [id number] Closed Consult, Test & Treat 01/06/2018 01/06/2019 1 1 Encounter Details Date Type Department Care Team (Late st Contact Info) Description 01/20/2018 11:00 AM EDT Office Visit Hematology/Oncology at [address] [phone] Heber Phillips MD [facility] DR HEMATOLOGY [place] [address] Small cell lung cancer Social History Tobacco [...] [ ] Not satisfied SOCIAL ASSESSMENT: See [facility] social assessment information entered. Support Systems: quang [...] and discomfort in the right chest. 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 Marital status: [...] Social History Narrative Lives with his in [place], [place]. 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 Next visit with MD on March 08 [...] AM EDT Office Visit Hematology/Oncology at [address] [phone] Heber Phillips MD [facility] HEMATOLOGY [place] [address] Isabella Baker APRN [facility] [place] [address] documented as of this encounter Results * [...] meets criteria. 2) Port ready for use. Instrument Tester(s): Associate Provider: Gerald Rivera APRN. I was present during the intraservice time as documented by the IR nurse. Attending: Dr. Pittman, not present for the procedure 01/26/2018 Heber Phillips MD [facility] IR ORDERABLES documented in this encounter Visit Diagnoses Diagnosis Small cell lung cancer Malignant neoplasm of bronchus and lung, unspecified site Small cell lung cancer Malignant neoplasm of bronchus and lung, unspecified site documented in this encounter Care Teams Mental Hygienist Relationship Specialty Start Date End Date Nataliya Messina MD [address] [facility] 1 [place] [address] PCP - General 10/02/11 01/11/22 documented as of this encounter
--- OUTSIDE RECORDS SUMMARY | 2024-02-09 02:17 | XMS_ITS | Encounter Summary ---
Author Organization [facility] Address [facility] [place] [address] Care Team Providers Care Construction Framer Name Role Phone Nataliya Messina MD Primary Care Provider Encounter Details Date Type Department Care Team (Latest Contact Info) Description 01/05/2018 7:05 AM EDT - 01/05/2018 11:40 AM EDT Hospital Encounter [place] [address] Tim Rodríguez MD [facility] [place] [address] Mass of right lung Discharge Disposition: Home [...] Wednesday- Wednesday 8:00 a.m.-5:00 p.m., please call [phone] to speak to a nurse in the Thoracic Clinic. If you get an answering machine or it is after hours or on weekends or holidays please call [phone] and askto speak to the Thoracic Physician ignition mechanic. Exercise & Activity Level: As you recover [...] 07/04/2018 2:20 PM Lauri Winn Jr., MD [facility] If you have any questions or concerns during normal business hours, Wednesday- Wednesday 8:00 a.m.-5:00 p.m., please call [phone] to speak to a nurse in the Thoracic Clinic. If you get an answering machine or it is after hours or on weekends or holidays please call [phone] and ask to speak to the Thoracic Physician ignition mechanic. documented in this encounter Medications at Time [...] 21.16) performed by Omero Wills MD at [facility] MAIN OR MEDS: No current facility-administered medications [...] MARCELLUS German 01/05/2018 Thoracic Surgery Service Pager [phone] documented in this encounter Miscellaneous Notes * [...] Operative Note Patient Name: Hieu Tillman : [id number] MR#: [id number] Case Date: 01/05/2018 Surgeon: Surgeon(s) and Role: [...] AM EDT Office Visit Hematology/Oncology at [address] [phone] Heber Phillips MD [facility] [place] [address] Isabella Baker APRN [facility] [place] [address] documented as of this encounter Procedures Procedure Name Priority Date/Time Associated Diagnosis Comments NON-CAMP COORDINATOR FINAL REPORT Routine 01/05/2018 2:40 PM EDT NON-CAMP COORDINATOR FINAL REPORT Routine 01/05/2018 2:34 PM EDT [...] EDT documented in this encounter Results * Non-Processing Engineer Final Report (01/05/2018 2:40 PM EDT) Diagnosis Discussion [id number] ? Location: [facility]; A The signing pathologist has (i) examined [...] The assay was performed according to the v belt skiver ? 's instructions using Anti-PD-L1 (22C3, pharmDX) antibody. Electronically signed by: ??Aria García MD Verified: ??01/11/2018 ?Pathologist Performed at: ??-[facility]. [facility], [place], [place] ? Non-Processing Engineer Final DIAGNOSIS Positive for Malignancy Electronically signed by: ??Greg HIGUERA, Bryon Freitas Verified: ??01/10/2018 ?Pathologist Performed at: ??-[facility]. of [facility], [place], [place] DISCUSSION Hilar mass, right (EBUS-guided FNA): [...] 7; Pap Stain 7; Cell Block 2. 01/11/2018 2:08 PM EDT [facility] Misc. FNA 01/05/2018 2:40 PM EDT 01/05/2018 2:40 PM EDT Tim Rodríguez MD PATHOLOGY/CYTOLOGY O ASHLYN [facility] [place] [address] * Non-Processing Engineer Final Report (01/05/2018 2:34 PM EDT) Diagnosis Discussion [id number] ? Location: [facility]; [facility]; The signing pathologist has (i) examined the relevant preparation(s) for the specimen(s) and (ii) rendered or confirmed the diagnosis(es). . ? Non-Processing Engineer Final DIAGNOSIS Negative for Malignancy Electronically signed by: ??Bryon Garza MD Verified: ??01/10/2018 ?Pathologist Performed at: ??-[facility] Dept. of Pathology, [place], [place] DISCUSSION Lymph node, right level 4 [...] 2; Pap Stain 2; Cell Block 1. 01/10/2018 9:13 AM EDT [facility] LYMPH NODE SPECIMEN / Unknown 01/05/2018 2:34 PM EDT 01/05/2018 2:34 PM EDT Tim Rodríguez MD PATHOLOGY/CYTOLOGY O RDERARICARDO [facility] [place] [address] * Molecular Genetics Report (01/05/2018 2:22 PM EDT) Molecular Report [id number] ? Location: [facility]; The signing pathologist has (i) examined the relevant preparation(s) for the specimen(s) and (ii) rendered or confirmed the diagnosis(es). . ?Molecular Genetics RESULTS Please refer to Pathology Report [id number] for final pathology diagnosis. TEST: ??ALK FISH [...] Molecular Pathology Laboratory at the [facility]. This assay is an IVD and has been cleared by the U.S. Food and Drug Administration for clinical purposes and should not be considered as investigational or for research purposes. The Molecular Pathology Laboratory is certified by the Clinical Laboratory Improvement Act of 1988 and as such is allowed to perform high complexity clinical testing. References: Mya EL, et al. N Engl J Med 2010;363:1693-703 Quinn DUMONT, et al. J Clin Oncol 2009,26:4214-2014 Edson Roche, et al. Nature 2007,448:561-566 Reviewed by: ?? Tanya Larsen MD ? Arts Administrator Or Manager, Molecular Pathology _ Electronically signed by: ??Josee HIGUERA PhD, Demarcus Hernandez Verified: ??01/26/2018 ?Pathologist Performed at: ??-[facility]. of [facility]ology, [place], [place] ?Molecular Genetics RESULTS Please refer to Pathology Report [id number] for final pathology diagnosis. TEST: ??ROS1 (6q22) [...] using a dual-color break-apart probe (BAP) strategy (Research Journalist ?ROS1 (6q22) Break Probe). Slide adequacy and [...] Clinical Genomics and Advanced Technology (CGAT) at [facility]. It has not been cleared or approved by the FDA. This test is used for clinical use and should not be considered as investigational or for research purposes. The Laboratory for Clinical Genomics and Advanced Technology ([facility]) is certified by the Clinical Laboratory Improvement Act of 1988 and as such is allowed to perform high complexity clinical testing. These FISH results are intended to be used as an adjunct test to existing clinical and pathologic information. REFERENCES: 1. Takeuchi et. al., Vandana Med 2012;18:378-3812. 2. Sanya et. al., Clin Cancer Res. 2012 Jan 15;18:4449-57. 3. Sherley et. al., Clin Cancer Res 2012;18(24):6599-6 608. 4. Dominique et. al., J Clin Oncol 2012;30:863-870. 5. Jose Enrique et. al., J Thorac Oncol 2012;7:9503-2783. 6. Solo toussaint. al., J Mol Diagn. 2018;20:129-159. Reviewed by: ??Tanya Larsen MD ? Arts Administrator Or Manager, Molecular Pathology _ Electronically signed by: ??Josee HIGUERA PhD, Demarcus Hernandez Verified: ??01/26/2018 ?Pathologist Performed at: ??-[facility] Dept. of Pathology, [place], [place] ?Molecular Genetics RESULTS Please refer to Pathology Report [id number] for final pathology diagnosis. INDICATION FOR STUDY: [...] pathology report and slides, the specimen ( -411 A2) was selected for mutation analysis from [...] clinical trial eligibility; consider presenting at the [facility] Molecular Tumor Board for further interpretation and discussion by contacting ??Jony ??. For additional information on clinically actionable variants, please visit the following websites: http://www.mycance rgenome.org/conten t/disease/lung-can cer http://www.nccn.or g/professionals/joanne kempician_gls/eddy_cory finch.asp Methods: ??Genomic DNA was extracted from formalin-fixed paraffin-embedded tumor tissue. DNA sequencing was performed using the 50-gene Cancer Hotspot Panel (GOGETMi / ?.??) for each gene reported. ??Sequences were aligned [...] (CGAT) . RESULTS Laboratory at [facility]. It has not been cleared or approved by the FDA. The laboratory is regulated under CLIA as qualified to perform high-complexity testing. This test is used for clinical purposes. It should not be regarded as investigational or for research. References : ??Bryant GRAYSON et al. ??J Mol Diagn. 2013 Aug 15(2):234-247; Wei Rowe et al. J Mol Diagn 2012 15(2):171-176; Kwabena MOHAN et al. J Mol Diagn 2013 Feb 15(5):607-622; Romel JUNIOR, et al. Clin Chem Lab Med May 2013;13:1-8. Electronically signed by: ??Rere Schreiber, Dennis Addison Verified: ??01/21/2018 ?Molecular Pathologist Performed at: ??-[facility] Dept. of Pathology, [facility] 01/05/2018 2:22 PM EDT Tim Rodríguez MD PATHOLOGY/CYTOLOGY O RDERABLES [facility] [place] [address] * XR Chest PA or AP 1 [...] AM EDT 01/05/2018 9:45 AM EDT Narrative [facility] - 01/05/2018 9:45 AM EDT Specimen requisition ordered. ??Separate Pathology report to follow Tim Rodríguez MD PATHOLOGY/CYTOLOGY O ASHLYN Performing Organization Address [facility] Co de Phone Number [facility] [place] [address] * Cytopathology Non-Gynecological (01/05/2018 9:33 AM EDT) AP Specimen 01/05/2018 9:33 AM EDT 01/05/2018 9:33 AM EDT Narrative [facility] - 01/05/2018 9:33 AM EDT Specimen requisition ordered. ??Separate Pathology report to follow Tim Rodríguez MD PATHOLOGY/CYTOLOGY O ASHLYN Performing Organization Address [facility] Co de Phone Number [facility] [place] [address] * POCT Glucose (01/05/2018 8:00 AM EDT) Glucose, POC 111 65 - 199 mg/dL [facility] Comment: Supplemental ranges: <140 mg/dL before meals <180 mg/dL all other times of the day Blood specimen (specimen) 01/05/2018 8:00 AM EDT 01/05/2018 8:00 AM EDT Tim Rodríguez MD POINT OF CARE TEST O ASHLYN Performing Organization Address [facility] Co de Phone Number [facility] [place] [address] documented in this encounter Visit Diagnoses Diagnosis [...] subcutaneous injection 5,000 Units 5,000 Units, Subcutaneous, REIMBURSEMENT REPRESENTATIVE TO O.R., 1 dose, On Wed01/05/18 at [...] Routine 08 (Given - Provid er: Deisi Razo, BOB) heparin (Porcine) subcutaneous injection 5,000 Units (COMPLETED) 5,000 Units, Subcutaneous, REIMBURSEMENT REPRESENTATIVE TO O.R., 1 dose, On Wed01/05/18 at 0800, Not within 60 minutes of placing epidural catheter., Day of Surgery (Day of Procedure), Routine 08 (Given - Provid er: Deisi Razo, RN) Continuous Medication Order 01/03/2018 01/04/2018 01/05/2018 lactated Ringers infusion 1,000 mL (CANCELED) 1,000 mL, at 100 mL/hr, Intravenous, CONTINUOUS, Starting on Wed01/05/18 at 0800, Until Wed01/05/18 at 1131, Using macrodrip IV tubing with 2 claves and 2 stopcocks, Day of Surgery (Day of Procedure) 0815 (New Bag - Prov ider: Deisi Razo, RN)0915 (New Bag - Provider: Tanya Escobar)1015 (Stopped - Provider: Tanya Escobar) PRN Medication Order 01/03/2018 01/04/2018 01/05/2018 lidocaine (XYLOCAINE) 20 mg/mL (2 %) injection (CANCELED) ONCE PRN, Starting on Wed01/05/18 at 0946, Until Wed01/05/18 at 1345, Intra-Operative (Intra-Procedure), Routine 0946 (Given - Provid er: Tim Rodríguez MD) documented in this encounter Care Teams Construction Framer Relationship Specialty Start Date End Date Nataliya Messina MD [address] [place] [address] 1 [place] [address] PCP - General 10/02/11 01/11/22 documented as of this encounter
--- OUTSIDE RECORDS SUMMARY | 2024-02-09 02:17 | XMS_ITS | Encounter Summary ---
[place] [address] Care Team Providers Care Press Supervisor Name Role Phone Nataliya Messina MD Primary Care Provider [phone] Reason for Visit * Diagnostic Test (Routine) - Closed Specialty Diagnoses / Procedures Referred By Contac t Referred To Contact Radiology Diagnoses Pre-operative cardiovascular examination, high risk surgery Procedures NM Exercise Stress Myocardial Perfusion Genet Thomas V STEAM FLATTENER [facility] [place] [address] [place] [address] Referral ID Status Reason Start Date Expiration Date V isits Requested Visits Authorized [id number] Closed Specialty Service Requested 12/28/2017 12/28/2018 4 4 Encounter Details Date Type Department Care Team (Late st Contact Info) Description 01/03/2018 9:51 AM EDT Hospital Encounter [place] [address] Genet Thomas V [facility] [place] [address] Discharge Disposition: Home Social History [...] AM EDT Office Visit Hematology/Oncology at [address] [address] Heber Phillips MD [facility] DR [place] [address] Isabella Baker APRN [facility] [address] documented as of this encounter Procedures Procedure [...] mCi documented in this encounter Care Teams Press Supervisor Relationship Specialty Start Date End Date Nataliya Messina MD [address] [place] [address] [address] [facility] 1 [place], [place] [address] PCP - General 10/02/11 01/11/22 documented as of this encounter
--- OUTSIDE RECORDS SUMMARY | 2024-02-09 02:17 | XMS_ITS | Encounter Summary ---
Author Organization [facility] [place] [address] Care Team Providers Care Reviewer Sales Name Role Phone Nataliya Messina MD Primary Care Provider [phone] Reason for Referral * Consultation (Routine) - Closed Specialty Diagnoses / Procedures Referred By Contac t Referred To Contact Radiation Oncology Diagnoses Mass of right lung Kingsley Ortiz MD [facility] [place] [address] Mikhail Cadena MD [address] [place] [address] [place] [address] Referral ID Status Reason Start Date Expiration Date V isits Requested Visits Authorized [id number] Closed Consult, Test & Treat 01/11/2018 01/11/2019 1 1 * Diagnostic Test (Routine) - Closed Specialty Diagnoses / Procedures Referred By Contac t Referred To Contact Radiology Diagnoses Mass of right lung Procedures NM Lung Perfusion Scan NM Lung Quant Perf/Vent Kingsley Ortiz MD [facility] [address] [place] [address] Referral ID Status Reason Start Date Expiration Date V isits Requested Visits Authorized [id number] Closed Specialty Service Requested 01/07/2018 01/07/2019 1 1 * Consultation (Routine) - Closed Specialty Diagnoses / Procedures Referred By Keven lozano Referred To Contact Hematology and Oncology Diagnoses Mass of right lung Kingsley Ortiz MD [facility] [place] [address] [facility] Hem Onc Office [address] [place] [phone] Referral ID Status Reason Start Date Expiration Date V isits Requested Visits Authorized [id number] Closed Consult, Test & Treat 01/06/2018 01/06/2019 1 1 Encounter Details Date Type Department Care Team (Late Contact Info) Description 01/06/2018 Orders [place] [address] Chriss Zarate RN Mass of right lung [...] AM EDT Office Visit Hematology/Oncology at [address] [phone] Heber Phillips MD [facility] DR HEMATOLOGY [place] [address] Isabella Baker APRN [facility] [place] [address] Scheduled Referrals Name Type Priority Associated Diagnoses [...] lung documented in this encounter Care Teams Reviewer Sales Relationship Specialty Start Date End Date Nataliya Messina MD [address] [place] [address] PCP - General 10/02/11 01/11/22 documented as of this encounter
--- OUTSIDE RECORDS SUMMARY | 2024-02-09 02:17 | XMS_ITS | Encounter Summary ---
Author Organization [facility] [place] [address] Care Team Providers Care Corporate Coordinator Name Role Phone Nataliya Messina MD Primary Care Provider [phone] Encounter Details Date Type Department Care Team (Late Contact Info) Description 12/28/2017 Telephone [place] [phone] Cady Petersen Social History Tobacco Use Types [...] Upcoming Encounters Date Type Department Care Team ([facility] Contact Info) Description 03/28/2024 10:00 AM EDT Office Visit Hematology/Oncology at [address] [phone] Heber Phillips MD [facility] DR [place] [address] Isabella Baker APRN [facility] [place] [address] documented as of this encounter Visit Diagnoses Not on filedocumented in this encounter Care Teams Corporate Coordinator Relationship Specialty Start Date End Date Nataliya Messina MD [address] [place] [address] PCP - General 10/02/11 01/11/22 documented as of this encounter
--- OUTSIDE RECORDS SUMMARY | 2024-02-09 02:17 | XMS_ITS | Encounter Summary ---
[place] [address] Care Team Providers Care Shell Sorter Name Role Phone Nataliya Messina MD Primary Care Provider [phone] [phone] Encounter Details Date Type Department Care Team (Latest Contact Info) Description 01/26/2018 6:45 AM EDT Laboratory Appointment Lab [address] [place] [address] Small cell lung cancer Social History Tobacco [...] AM EDT Office Visit Hematology/Oncology at [address] [phone] Heber Phillips MD [facility] [address] [place] [address] Isabella Baker APRN [facility] [place] [address] documented as of this encounter Procedures Procedure Name Priority Date/Time Associated Diagnosis Comments HEMOGRAM STAT 01/26/2018 6:53 AM EDT Small cell lung cancer DIFFERENTIAL, AUTOMATED STAT 01/26/2018 6:53 AM EDT Small cell lung cancer CBC (WITH DIFF) STAT 01/26/2018 6:53 AM EDT Small cell lung cancer COMPREHENSIVE METABOLIC PANEL STAT 01/26/2018 6:53 AM EDT Small cell lung cancer documented in this encounter Results * (ABNORMAL) Differential, Automated (01/26/2018 6:53 AM EDT) Neutrophil % 75.0 % [facility] Neutrophil Absolute 7.54(H) 1.70 - 6.10 x10(3)/ L [facility] Lymph % 11.3 % [facility] Lymphocytes Abs 1.1 0.9 - 3.2 x10(3)/ L [facility] Monocyte % 11.2 % [facility] Monocyte Abs 1.1(H) 0.3 - 0.9 x10(3)/ L [facility] Eos % 0.9 % [facility] Eosinophils Abs 0.1 0.0 - 0.4 x10(3)/[facility] Basophil % 0.6 % [facility] Baso Absolute 0.1 0.0 - 0.1 x10(3)/ L [facility] Immature Gran % 1.00 % [facility] Comment: Immature granulocytes(IG's)percentage and absolute count will include metamyelocytes, myelocytes, and promyelocytes. Blood smears from CBCs yielding IG's will be scanned manually for concordance. If this scan disagrees with the automated IG or if promyelocytes are noted, a manual differential will be performed. Immature Gran Absolute 0.10(H) 0.00 - 0.04 x10(3)/ L [facility] Blood specimen (specimen) 01/26/2018 6:53 AM EDT 01/26/2018 6:57 AM EDT Narrative Resulting Agency Comment Spec In Lab Heber Phillips MD HEMATOLOGY ORDERABLE S [facility] [place] [address] * (ABNORMAL) Hemogram (01/26/2018 6:53 AM EDT) White Blood Cell 10.0(H) 4.0 - 9.5 x10(3)/mc L [facility] Red Blood Cell 4.54(L) 4.58 - 5.54 x10(6)/mc L [facility] Hemoglobin 12.6(L) 13.7 - 16.5 gm/dL [facility] Hematocrit 39.1(L) 40.5 - 48.5 % [facility] Mean Cell Volume 86.1 82.9 - 93.1 fL [facility] Mean Cell Hemoglobin 27.8 27.5 - 32.1 pg [facility] Mean Cell Hemoglobin Concentration 32.2 32.0 - 35.7 gm/dL [facility] Platelet 522(H) 145 - 357 x10(3)/mc L [facility] RDW Standard Deviation 44.5 36.0 - 45.0 [facility] RDW coefficient of variation 14.1(H) 11.4 - 13.8 % [facility] Mean Platelet Volume 8.6 7.6 - 12.9 fL [facility] NRBC% auto 0.0 % [facility] NRBC Absolute 0.000 0.000 - 0.000 x10(3)/ L [facility] Blood specimen (specimen) 01/26/2018 6:53 AM EDT 01/26/2018 6:57 AM EDT Narrative Resulting Agency Comment Spec In Lab Heber Phillips MD HEMATOLOGY ORDERABLE S [facility] [place] [address] * Comprehensive metabolic panel (non-fasting) (01/26/2018 6:53 AM EDT) Glucose 109 65 - 199 mg/dL [facility] Comment:Diabetes: >=200 mg/d L plus symptoms Blood Urea Nitrogen 16 10 - 20 mg/dL [facility] Creatinine 0.98 0.80 - 1.50 mg/dL [facility] Sodium 137 135 - 145 mmol/L [facility] Potassium 4.4 3.5 - 5.0 mmol/L [facility] Comment: Please note: ??Patients with WBC >100,000 may have falsely elevated Potassium levels. ??For accurate Potassium quantification in these patients send serum separator tube (gold top) for subsequent determinations. ??Contact the Clinical Chemistry Laboratory if there are any questions. Chloride 98 98 - 107 mmol/L [facility] Carbon Dioxide 26 22 - 31 mmol/L [facility] Anion Gap 13 5 - 15 mmol/L [facility] Calcium 9.4 8.5 - 10.5 mg/dL [facility] Protein, Total 7.2 6.1 - 8.0 gm/dL [facility] Albumin 3.9 3.2 - 5.2 gm/dL [facility] Aspartate Aminotransferase 15 0 - 39 unit/L [facility] Alanine Aminotransferase 15 0 - 55 unit/L [facility] Alkaline Phosphatase 104 40 - 120 unit/L [facility] Bilirubin, Total 0.3 0.2 - 1.3 mg/dL [facility] Est Glomerular Filtration Rate 82 >=60 mL/min/1. 73 m?? [facility] Comment: The eGFR was calculated using the CKD-EPI equation. As with all creatinine based estimates of kidney function, eGFR values calculated with the CKD-EPI equation are not accurate in patients with acute kidney failure, extremes of body mass or the acutely ill. [email or web address] eGFR 95 >=60 mL/min/1. 73 m?? [facility] Comment: The eGFR was calculated using the CKD-EPI equation. As with all creatinine based estimates of kidney function, eGFR values calculated with the CKD-EPI equation are not accurate in patients with acute kidney failure, extremes of body mass or the acutely ill. [email or web address] Blood specimen (specimen) 01/26/2018 6:53 AM EDT 01/26/2018 6:57 AM EDT Narrative Resulting Agency Comment Spec In Lab Heber Phillips MD CHEMISTRY ORDERABLES [facility] [place] [id number] documented in this encounter Visit Diagnoses Diagnosis Small cell lung cancer Malignant neoplasm of bronchus and lung, unspecified site documented in this encounter Care Teams Shell Sorter Relationship Specialty Start Date End Date Nataliya Messina MD [address] [place] [address] PCP - General 10/02/11 01/11/22 documented as of this encounter
--- OUTSIDE RECORDS SUMMARY | 2024-02-09 02:17 | XMS_ITS | Encounter Summary ---
Author Organization [facility] [address] Care Team Providers Care Special Agent Group Insurance Name Role Phone Nataliya Messina MD Primary Care Provider [phone] Encounter Details Date Type Department Care Team (Late Contact Info) Description 12/29/2017 Telephone [place] [phone] Cady Petersen Social History Tobacco Use Types [...] Upcoming Encounters Date Type Department Care Team ([facility] Contact Info) Description 03/28/2024 10:00 AM EDT Office Visit Hematology/Oncology at [address] [phone] Heber Phillips MD [facility] DR HEMATOLOGY [place] [address] Isabella Baker APRN [facility] [place] [address] documented as of this encounter Visit Diagnoses Not on filedocumented in this encounter Care Teams Special Agent Group Insurance Relationship Specialty Start Date End Date Nataliya Messina MD [address] [place] [address] PCP - General 10/02/11 01/11/22 documented as of this encounter
--- OUTSIDE RECORDS SUMMARY | 2024-02-09 02:17 | XMS_ITS | Encounter Summary ---
Author Organization [facility] [place] [address] Care Team Providers Care Hopper Feeder Name Role Phone Nataliya Messina MD Primary Care Provider [phone] Encounter Details Date Type Department Care Team (Late Contact Info) Description 12/28/2017 4:20 PM EDT Laboratory [place] [phone] Social History Tobacco Use Types Packs/Day Years [...] AM EDT Office Visit Hematology/Oncology at [address] [phone] Heber Phillips MD [facility] DR [place] [address] Isabella Baker APRN [facility] [place] [address] documented as of this encounter Visit Diagnoses Not on filedocumented in this encounter Care Teams Hopper Feeder Relationship Specialty Start Date End Date Nataliya Messina MD [address] [facility] [address] [place] [address] PCP - General 10/02/11 01/11/22 documented as of this encounter
--- OUTSIDE RECORDS SUMMARY | 2024-02-09 02:17 | XMS_ITS | Encounter Summary ---
Author Organization [facility] [place] [address] Care Team Providers Care Pet Caretaker Name Role Phone Nataliya Messina MD Primary Care Provider [phone] Reason for Referral * Diagnostic Test (Routine) - Closed Specialty Diagnoses / Procedures Referred By Contac t Referred To Contact Radiology Diagnoses Mass of right lung Procedures PET CT Carter Standard Plus Head and Neck PET CT Standard Skull Base to Mid-Thigh Kingsley Ortiz MD [facility] [place] [address] [place] [address] Referral ID Status Reason Start Date Expiration Date V isits Requested Visits Authorized [id number] Closed Specialty Service Requested 12/28/2017 12/28/2018 1 1 Reason for Visit * Diagnostic Test (Routine) - Closed Specialty Diagnoses / Procedures Referred By Contac t Referred To Contact Radiology Diagnoses Mass of right lung Procedures PET CT Carter Standard Plus Head and Neck PET CT Standard Skull Base to Mid-Thigh Kingsley Ortiz MD [facility] [place] [address] [place] [address] Referral ID Status Reason Start Date Expiration Date V isits Requested Visits Authorized [id number] Closed Specialty Service Requested 12/28/2017 12/28/2018 1 1 Encounter Details Date Type Department Care Team (Latest Contact Info) Description 12/31/2017 12:16 PM EDT - 12/31/2017 11:59 PM EDT Hospital Encounter Nuclear Medicine at [facility] [place] [address] Kingsley Ortiz MD [facility] [place] [address] Mass of right lung Discharge Disposition: Home [...] AM EDT Office Visit Hematology/Oncology at [address] [phone] Heber Phillips MD [facility] DR HEMATOLOGY [place] [address] Isabella Baker APRN [facility] [place] [address] documented as of this encounter Procedures Procedure [...] 12/31/2017 3:59 PM EDT EXAMINATION: PET CT RADCLIFFE STANDARD PLUS HEAD AND NECK CLINICAL HISTORY: RUL mass eval for metastatic disease TECHNIQUE: Following IV injection of 15-vgrjpe-0-deoxyglucose (FDG) a standard uptake of approximately 60 [...] metastatic disease TECHNIQUE: Following IV injection of 86-fwblcd-7-deoxyglucose (FDG) astandard uptake of approximately 60 minutes, [...] mCi documented in this encounter Care Teams Pet Caretaker Relationship Specialty Start Date End Date Nataliya Messina MD [address] [place] [address] [address] [facility] [address] [place] [address] PCP - General 10/02/11 01/11/22 documented as of this encounter
--- OUTSIDE RECORDS SUMMARY | 2024-02-09 02:17 | XMS_ITS | Encounter Summary ---
Author Organization [facility] Address [facility] [place] [address] Care Team Providers Care Butcher Name Role Phone Nataliya Messina MD Primary Care Provider [phone] Encounter Details Date Type Department Care Team (Late st Contact Info) Description 01/05/2018 9:01 AM EDT - 01/05/2018 10:29 AM EDT Surgery [place] [address] Tim Rodríguez MD [facility] [place] [address] BRONCH, W ENDOBRONCHIAL ULTRASOUND (EBUS) GUIDED SAMPLING, [...] Wednesday- Wednesday 8:00 a.m.-5:00 p.m., please call [phone] to speak to a nurse in the Thoracic Clinic. If you get an answering machine or it is after hours or on weekends or holidays please call [phone] and askto speak to the Thoracic Physician contact finger assembler. Exercise & Activity Level: As you recover [...] 07/04/2018 2:20 PM Lauri Winn Jr., MD [facility] If you have any questions or concerns during normal business hours, Wednesday- Wednesday 8:00 a.m.-5:00 p.m., please call [phone] to speak to a nurse in the Thoracic Clinic. If you get an answering machine or it is after hours or on weekends or holidays please call [phone] and ask to speak to the Thoracic Physician contact finger assembler. documented in this encounter Medications at Time [...] 21.16) performed by Omero Wills MD at [facility] MAIN OR MEDS: No current facility-administered [...] MARCELLUS German 01/05/2018 Thoracic Surgery Service Pager [phone] documented in this encounter Miscellaneous Notes * [...] Operative Note Patient Name: Hieu Tillman : [id number] MR#: [id number] Case Date: 01/05/2018 Surgeon: Surgeon(s) and Role: [...] AM EDT Office Visit Hematology/Oncology at [address] [address] Heber Phillips MD [facility] DR HEMATOLOGY [place] [address] Isabella Baker APRN [facility] [place] [address] documented as of this encounter Procedures Procedure Name Priority Date/Time Associated Diagnosis Comments NON-LOCAL OWNER OPERATOR TRUCK DRIVER FINAL REPORT Routine 01/05/2018 2:40 PM EDT NON-LOCAL OWNER OPERATOR TRUCK DRIVER FINAL REPORT Routine 01/05/2018 2:34 PM EDT [...] EDT documented in this encounter Results * Non-Lead Burner Final Report (01/05/2018 2:40 PM EDT) Diagnosis Discussion [id number] ? Location: [facility]; The signing pathologist has (i) examined the [...] The assay was performed according to the media production support manager ? 's instructions using Anti-PD-L1 (22C3, pharmDX) antibody. Electronically signed by: ??Aria García MD Verified: ??01/11/2018 ?Pathologist Performed at: ??-[facility] Dept. of Pathology, [place], [place] ? Non-Lead Burner Final DIAGNOSIS Positive for Malignancy Electronically signed by: ??Greg HIGUERA, Bryon Freitas Verified: ??01/10/2018 ?Pathologist Performed at: ??-[facility] Dept. of Pathology, [place], [place] DISCUSSION Hilar mass, right (EBUS-guided FNA): [...] Cell Block 2. 01/11/2018 2:08 PM EDT [facility] Misc. FNA 01/05/2018 2:40 PM EDT 01/05/2018 2:40 PM EDT Tim Rodríguez MD PATHOLOGY/CYTOLOGY O ASHLYN [facility] [place] [address] * Non-Lead Burner Final Report (01/05/2018 2:34 PM EDT) Diagnosis Discussion [id number] ? Location: [facility]; The signing pathologist has (i) examined the relevant preparation(s) for the specimen(s) and (ii) rendered or confirmed the diagnosis(es). . ? Non-Lead Burner Final DIAGNOSIS Negative for Malignancy Electronically signed by: ??Bryon Garza MD Verified: ??01/10/2018 ?Pathologist Performed at: ??-[facility] Dept. of Pathology, [place], [place] DISCUSSION Lymph node, right level 4 [...] Cell Block 1. 01/10/2018 9:13 AM EDT [facility] LYMPH NODE SPECIMEN / Unknown 01/05/2018 2:34 PM EDT 01/05/2018 2:34 PM EDT Tim Rodríguez MD PATHOLOGY/CYTOLOGY O RDERARICARDO [facility] [place] [id number] * Molecular Genetics Report (01/05/2018 2:22 PM EDT) Molecular Report [id number] ? Location: [facility]; The signing pathologist has (i) examined the relevant preparation(s) for the specimen(s) and (ii) rendered or confirmed the diagnosis(es). . ?Molecular Genetics RESULTS Please refer to Pathology Report [id number] for final pathology diagnosis. TEST: ??ALK FISH [...] by the Molecular Pathology Laboratory at the [facility]. This assay is an IVD and has [...] Quinn DUMONT, et al. J Clin Oncol 2009,26:9384-2032 Edson Roche, et al. Nature 2007,448:561-566 Reviewed by: ?? Tanya Larsen MD ? [employer], Molecular Pathology _ Electronically signed by: ??Josee HIGUERA PhD, Demarcus Hernandez Verified: ??01/26/2018 ?Pathologist Performed at: ??-[facility] Dept. of Pathology, [place], [place] ?Molecular Genetics RESULTS Please refer to Pathology Report [id number] for final pathology diagnosis. TEST: ??ROS1 (6q22) [...] using a dual-color break-apart probe (BAP) strategy ([employer] ?ROS1 (6q22) Break Probe). Slide adequacy and [...] Clinical Genomics and Advanced Technology (CGAT) at [facility]. It has not been cleared or approved [...] 2. Sanya et. al., Clin Cancer Res. 2011Feb 02;18:4449-57. 3. Sherley et. al., Clin Cancer Res 2012;18(24):6599-6 608. 4. Dominique et. al., J Clin Oncol 2012;30:863-870. 5. Jose Enrique et. al., J Thorac Oncol 2012;7:3564-5690. 6. Solo et. al., J Mol Diagn. 2018;20:129-159. Reviewed by: ??Tanya Larsen MD ? [employer], Molecular Pathology _ Electronically signed by: ??Josee HIGUERA PhD, Demarcus Hernandez Verified: ??01/26/2018 ?Pathologist Performed at: ??-[facility] Dept. of Pathology, [place], [place] ?Molecular Genetics RESULTS Please refer to [...] clinical trial eligibility; consider presenting at the [facility] Molecular Tumor Board for further interpretation and discussion by contacting ??Jony ??. For additional information on clinically actionable variants, please visit the following websites: http://www.mycance rgenome.org/conten t/disease/lung-can cer http://www.nccn.or g/professionals/ph justoician_gls/f_cory finch.asp Methods: ??Genomic DNA was extracted from formalin-fixed paraffin-embedded tumor tissue. DNA sequencing was performed using the 50-gene Cancer Hotspot Panel ([place]) for each gene reported. ??Sequences were aligned [...] Technology ? (CGAT) . RESULTS Laboratory at [facility]. It has not been cleared or approved by the FDA. The laboratory is regulated under CLIA as qualified to perform high-complexity testing. This test is used for clinical purposes. It should not be regarded as investigational or for research. References : ??Bryant GRAYSON et al. ??J Mol Diagn. 2012 15(2):234-247; Wei Rowe et al. J Mol Diagn 2012 15(2):171-176; Kwabena MOHAN et al. J Mol Diagn 2013 Feb 15(5):607-622; Romel GJ, et al. Clin Chem Lab Med May 2013;13:1-8. Electronically signed by: ??Dennis Jernigan PhD Verified: ??01/21/2018 ?Molecular Pathologist Performed at: ??-[facility] Dept. of Pathology, [facility] 01/05/2018 2:22 PM EDT Tim Rodríguez MD PATHOLOGY/CYTOLOGY O RDERABLES [facility] [place] [address] * XR Chest PA or AP 1 [...] AM EDT 01/05/2018 9:45 AM EDT Narrative [facility] - 01/05/2018 9:45 AM EDT Specimen requisition ordered. ??Separate Pathology report to follow Tim Rodríguez MD PATHOLOGY/CYTOLOGY O ASHLYN Performing Organization Address [facility] Co de Phone Number [facility] [place] [address] * Cytopathology Non-Gynecological (01/05/2018 9:33 AM EDT) AP Specimen 01/05/2018 9:33 AM EDT 01/05/2018 9:33 AM EDT Narrative [facility] - 01/05/2018 9:33 AM EDT Specimen requisition ordered. ??Separate Pathology report to follow Tim Rodríguez MD PATHOLOGY/CYTOLOGY O ASHLYN Performing Organization Address [facility] Co de Phone Number [facility] [place] [address] * POCT Glucose (01/05/2018 8:00 AM EDT) Glucose, POC 111 65 - 199 mg/dL [facility] Comment: Supplemental ranges: <140 mg/dL before meals <180 mg/dL all other times of the day Blood specimen (specimen) 01/05/2018 8:00 AM EDT 01/05/2018 8:00 AM EDT Tim Rodríguez MD POINT OF CARE TEST Octavio GOLDBERG Performing Organization Address [facility] Co de Phone Number [facility] [place] [address] documented in this encounter Visit Diagnoses Diagnosis [...] subcutaneous injection 5,000 Units 5,000 Units, Subcutaneous, CORRECTION OFFICER REFORMATORY TO O.R., 1 dose, On Wed01/05/18 at [...] injection 5,000 Units (COMPLETED) 5,000 Units, Subcutaneous, CORRECTION OFFICER REFORMATORY TO O.R., 1 dose, On Wed01/05/18 at [...] (Intra-Procedure), Routine 0946 (Given - Provid er: Tmi Rodríguez MD) documented in this encounter Care Teams Butcher Relationship Specialty Start Date End Date Nataliya Messina MD [address] [place] [address] PCP - General 10/02/11 01/11/22 documented as of this encounter
--- OUTSIDE RECORDS SUMMARY | 2024-02-09 02:17 | XMS_ITS | Encounter Summary ---
Author Organization [facility] [address] Care Team Providers Care Commercial Account Manager Name Role Phone Nataliya Messina MD Primary Care Provider Encounter Details Date Type Department Care Team (Late st Contact Info) Description 01/18/2018 Multidisciplinary Ca re Committee Radiation Oncology at [address] [address] Mikhail Cadena MD [address] [place] [address] DR RADIATION ONCOLOGY [place], [place] [id number] Social History Tobacco Use Types Packs/Day Years [...] AM EDT Office Visit Hematology/Oncology at [address] [address] [facility] DR [place] [address] [facility] [place] [address] documented as of this encounter Visit Diagnoses Not on filedocumented in this encounter Care Teams Commercial Account Manager Relationship Specialty Start Date End Date Nataliya Messina MD [address] [place] [address] PCP - General 10/02/11 01/11/22 documented as of this encounter
--- OUTSIDE RECORDS SUMMARY | 2024-02-09 02:17 | XMS_ITS | Encounter Summary ---
[place] [address] Care Team Providers Care Worm Grower Name Role Phone Nataliya Messina MD Primary Care Provider Encounter Details Date Type Department Care Team (Late st Contact Info) Description 01/07/2018 Telephone [place] [phone] Cady Petersen Social History Tobacco Use Types [...] 8:37 AM EDT Sent VQ scan to [facility], they will call and schedule this with hieu, I will call hieu and let him know to expect the call. documented in this encounter Plan of Treatment Upcoming Encounters Date Type Department Care Team (Late st Contact Info) Description 03/28/2024 10:00 AM EDT Office Visit Hematology/Oncology at [address] [phone] Heber Phillips MD [facility] DR HEMATOLOGY [place] [address] Isabella Baker APRN [facility] [place] [address] documented as of this encounter Visit Diagnoses Not on filedocumented in this encounter Care Teams Worm Grower Relationship Specialty Start Date End Date Nataliya Messina MD [address] [place] [address] PCP - General 10/02/11 01/11/22 documented as of this encounter
--- OUTSIDE RECORDS SUMMARY | 2024-02-09 02:17 | XMS_ITS | Encounter Summary ---
[place] [address] Care Team Providers Care Electrical Engineer Mep Name Role Phone Nataliya Messina MD Primary Care Provider [phone] Reason for Visit * Reason Onset Date Comments Other 12/31/2017 follow up Encounter Details Date Type Department Care Team (Late st Contact Info) Description 12/31/2017 Telephone [place] [phone] Aga Petersen RN Other (follow up) Social [...] AM EDT Office Visit Hematology/Oncology at [address] [address] Heber Phillips MD [facility] DR [place] [address] Isabella Baker APRN [facility] [place] [address] documented as of this encounter Visit Diagnoses Not on filedocumented in this encounter Care Teams Electrical Engineer Mep Relationship Specialty Start Date End Date Nataliya Messina MD [address] [place] [address] PCP - General 10/02/11 01/11/22 documented as of this encounter
--- OUTSIDE RECORDS SUMMARY | 2024-02-09 02:17 | XMS_ITS | Encounter Summary ---
[place] [address] Care Team Providers Care Name Role Phone Nataliya Messina MD Primary Care Provider [phone] Encounter Details Date Type Department Care Team (Late Contact Info) Description 01/13/2018 Telephone Radiation Oncology at [address] [address] Silvano Perez Social History Tobacco [...] AM EDT Office Visit Hematology/Oncology at [address] [phone] Heber Phillips MD [facility] DR [place] [address] Isabella Baker APRN [facility] [place] [address] documented as of this encounter Visit Diagnoses Not on filedocumented in this encounter Care Teams Relationship Specialty Start Date End Date Nataliya Messina MD [address] [place] [address] PCP - General 10/02/11 01/11/22 documented as of this encounter
--- OUTSIDE RECORDS SUMMARY | 2024-02-09 02:17 | XMS_ITS | Encounter Summary ---
[place] [address] Care Team Providers Care Dredge Worker Name Role Phone Nataliya Messina MD Primary Care Provider [phone] Reason for Referral * Diagnostic Test (Routine) - Closed Specialty Diagnoses / Procedures Referred By Contac t Referred To Contact Radiology Diagnoses Pre-operative cardiovascular examination, high risk surgery Procedures NM Exercise Stress Myocardial Perfusion Genet Thomas APRN [facility] [place] [address] [place] [address] Referral ID Status Reason Start Date Expiration Date V isits Requested Visits Authorized [id number] Closed Specialty Service Requested 12/28/2017 12/28/2018 4 4 Reason for Visit * Diagnostic Test (Routine) - Closed Specialty Diagnoses / Procedures Referred By Contac t Referred To Contact Radiology Diagnoses Pre-operative cardiovascular examination, high risk surgery Procedures NM Exercise Stress Myocardial Perfusion Genet Thomas V CERTIFIED HOME HEALTH AIDE [facility] [place] [address] [place] [address] Referral ID Status Reason Start Date Expiration Date V isits Requested Visits Authorized [id number] Closed Specialty Service Requested 12/28/2017 12/28/2018 4 4 Encounter Details Date Type Department Care Team (Late st Contact Info) Description 01/03/2018 9:50 AM EDT Hospital Encounter Nuclear Medicine at [facility] [place] [address] Genet Thomas [facility] DR [place] [address] Pre-operative cardiovascular examination, high risk surgery Discharge [...] AM EDT Office Visit Hematology/Oncology at [address] [phone] Heber Phillips MD [facility] DR HEMAT[place] [address] Isabella Baker APRN [facility] [place] [address] documented as of this encounter Procedures Procedure [...] Anshu Fisher at 01/03/2018 3:09 PM Genet Thomas V, CERTIFIED HOME HEALTH AIDE IMG NM ORDERABL ES documented in this [...] mCi documented in this encounter Care Teams Dredge Worker Relationship Specialty Start Date End Date Nataliya Messina MD [address] [place] [address] [facility] [address] [place] [address] PCP - General 10/02/11 01/11/22 documented as of this encounter
--- OUTSIDE RECORDS SUMMARY | 2024-02-09 02:17 | XMS_ITS | Encounter Summary ---
Author Organization [facility] [place] [address] Care Team Providers Care Mortgage Loan Processor Name Role Phone Nataliya Messina MD Primary Care Provider [phone] Reason for Referral * Diagnostic Test (Routine) - Closed Specialty Diagnoses / Procedures Referred By Contac t Referred To Contact Radiology Diagnoses Mass of right lung Procedures NM Lung Perfusion Scan NM Lung Quant Perf/Vent Kingsley Ortiz MD [facility] [place] [address] [place] [address] Referral ID Status Reason Start Date Expiration Date V isits Requested Visits Authorized [id number] Closed Specialty Service Requested 01/07/2018 01/07/2019 1 1 Reason for Visit * Diagnostic Test (Routine) - Closed Specialty Diagnoses / Procedures Referred By Contac t Referred To Contact Radiology Diagnoses Mass of right lung Procedures NM Lung Perfusion Scan NM Lung Quant Perf/Vent Kingsley Ortiz MD [facility] [place] [address] [place] [address] Referral ID Status Reason Start Date Expiration Date V isits Requested Visits Authorized [id number] Closed Specialty Service Requested 01/07/2018 01/07/2019 1 1 Encounter Details Date Type Department Care Team (Latest Contact Info) Description 01/10/2018 1:51 PM EDT - 01/10/2018 11:59 PM EDT Hospital Encounter Nuclear Medicine at [facility] [place] [address] Kingsley Ortiz MD [facility] [place] [address] Mass of right lung Discharge Disposition: Home [...] AM EDT Office Visit Hematology/Oncology at [address] [phone] Heber Phillips MD [facility] DR [place] [address] Isabella Baker APRN [facility] [place] [address] documented as of this encounter Procedures Procedure [...] addendum to this report. Kingsley Ortiz MD IM NM ORDERABLES documented in this encounter Visit [...] mCi documented in this encounter Care Teams Mortgage Loan Processor Relationship Specialty Start Date End Date Nataliya Messina MD [address] [place] [address] PCP - General 10/02/11 01/11/22 documented as of this encounter
--- OUTSIDE RECORDS SUMMARY | 2024-02-09 02:17 | XMS_ITS | Encounter Summary ---
[place] [address] Care Team Providers Care Change Of Address Clerk Name Role Phone Nataliya Messina MD Primary Care Provider [phone] Reason for Referral * Diagnostic Test (Routine) - Specialty Diagnoses / Procedures Referred By Contac t Referred To Contact Radiology Diagnoses Pre-operative cardiovascular examination, high risk surgery Procedures NM Exercise Stress CT Component Genet Thomas V NATURAL REMEDY CONSULTANT [facility] [place] [address] [place] [address] Referral ID Status Reason Start Date Expiration Date Visits Requested Visits Authorized [id number] Specialty Service Requested 12/28/2017 12/28/2018 1 1 Reason for Visit * Diagnostic Test (Routine) - Closed Specialty Diagnoses / Procedures Referred By Contac t Referred To Contact Radiology Diagnoses Pre-operative cardiovascular examination, high risk surgery Procedures NM Exercise Stress Myocardial Perfusion Genet Thomas V NATURAL REMEDY CONSULTANT [facility] [place] [address] [place] [address] Referral ID Status Reason Start Date Expiration Date V isits Requested Visits Authorized [id number] Closed Specialty Service Requested 12/28/2017 12/28/2018 4 4 Encounter Details Date Type Department Care Team (Late st Contact Info) Description 01/03/2018 9:52 AM EDT - 01/03/2018 10:20 AM EDT Hospital Encounter [place] [address] Genet Thomas V NATURAL REMEDY CONSULTANT [facility] [place] [address] Pre-operative cardiovascular examination, high risk surgery Discharge [...] AM EDT Office Visit Hematology/Oncology at [address] [address] Heber Phillips MD [facility] DR [place] [address] Isabella Baker APRN [facility] [place] [address] documented as of this encounter Procedures Procedure [...] at 01/03/2018 3:07 PM Genet Thomas V, NATURAL REMEDY CONSULTANT IMG NM ORDERABL ES documented in this encounter Visit Diagnoses Diagnosis Pre-operative cardiovascular examination, high risk surgery Pre-operative cardiovascular examination documented in this encounter Care Teams Change Of Address Clerk Relationship Specialty Start Date End Date Nataliya Messina MD [address] [facility] [address] [address] PCP - General 10/02/11 01/11/22 documented as of this encounter
--- OUTSIDE RECORDS SUMMARY | 2024-02-09 02:17 | XMS_ITS | Encounter Summary ---
[place] [address] Care Team Providers Care Aboriginal Community Council Member Name Role Phone Nataliya Messina MD Primary Care Provider Reason for Referral * Diagnostic Test (Routine) - Closed Specialty Diagnoses / Procedures Referred By Contac t Referred To Contact Radiology Diagnoses Small cell lung cancer Procedures IR Mediport Placement / Exchange Heber Phillips MD [facility] [address] [place] [address] [facility] [address] Referral ID Status Reason Start Date Expiration Date V isits Requested Visits Authorized [id number] Closed Specialty Service Requested 01/20/2018 01/20/2019 1 1 Reason for Visit * Diagnostic Test (Routine) - Closed Specialty Diagnoses / Procedures Referred By Contac t Referred To Contact Radiology Diagnoses Small cell lung cancer Procedures IR Mediport Placement / Exchange Heber Phillips MD [facility] DR [place] [address] [facility] [address] Referral ID Status Reason Start Date Expiration Date V isits Requested Visits Authorized [id number] Closed Specialty Service Requested 01/20/2018 01/20/2019 1 1 Encounter Details Date Type Department Care Team (Latest Contact Info) Description 01/26/2018 7:01 AM EDT - 01/26/2018 11:59 PM EDT Hospital Encounter Radiology at [facility] [place] [address] Heber Phillips MD [facility] DR HEMATOLOGY [place] [address] Small cell lung cancer Discharge Disposition: Home [...] from the original note were not included. [facility] Department of Vascular and Interventional Radiology Discharge [...] provided with an ID card stating the construction estimator and type of port you have. Please carry this with you in a safe place. Bandage: There is a sterile dressing over the port site consisting of small gauze with a clear dressing (Tegaderm or [id number] ). This dressing should be left in [...] is during regular office hours, please call [phone]. If it is after regular office hours, or on weekends or holidays, please call [phone] and ask to speak to the Engineering Agent mining professionals for Interventional Radiology. XXX You have received [...] (home) Telephone Information: PCP Nataliya Messina MD [phone] Date/Time of call: January 27, 2018/8:27 AM [...] pending arrival in IR. Britton Muñoz MD Engineering Agent PGY-5 Pager # [phone] * Arabella Domínguez RN - 01/21/2018 3:04 PM EDT [facility] NUR[facility] DATABASE Name: BRITTA TILLMAN Date of : 1955 AGE 62 y.o. Address: [address] [place] [address] (home) Mobile: Telephone Information: Referring Provider: Heber Phillips REASON FOR VISIT: Mediport placement: Order Questions Answers Where will study be performed? [facility] [120] Is the patient on anticoagulant [...] ANGIOPLASTY WITH STENT PLACEMENT ? ? [facility] EB[facility] GUIDED SAMPL 3/> NODE STATION/STRUX N/A 01/05/2018 BRONCH, W ENDOBRONCHIAL ULTRASOUND (EBUS) GUIDED SAMPLING, 3+ NODES (WRVU 5.21) performed by Kingsley Ortiz MD at [facility] MAIN OR ??? PRO THROMBOENDARTECTMY NECK, NECK INCIS Right 10/20/2016 @ENDARTERECTOMY, CAROTID, VERTEBRAL,SUBCLAVIAN W\WO PATCH GRAFT (WRVU 21.16) performed by Omero Wills MD at [facility] MAIN OR Date/Procedure Comments: 12/07/11 Right [...] AM EDT Office Visit Hematology/Oncology at [address] [address] Heber Phillips MD [facility] HEMATOLOGY [place] [address] Isabella Baker APRN [facility] [place] [address] documented as of this encounter Procedures Procedure [...] meets criteria. 2) Port ready for use. Binding Machine Operator(s): Associate Provider: Gerald Rivera APRN. I was present during the intraservice time as documented by the IR nurse. Attending: Dr. Pittman, not present for the procedure 01/26/2018 Heber STRANGE IR ORDERABLES documented in this encounter Visit [...] mL/hr documented in this encounter Care Teams Aboriginal Community Council Member Relationship Specialty Start Date End Date Nataliya Messina MD [address] [place] [address] PCP - General 10/02/11 01/11/22 documented as of this encounter
--- OUTSIDE RECORDS SUMMARY | 2024-02-09 02:17 | XMS_ITS | Encounter Summary ---
[place] [address] Care Team Providers Care Keyboarding Teacher Name Role Phone Nataliya Messina MD Primary Care Provider [phone] Reason for Visit * Diagnostic Test (Routine) - Closed Specialty Diagnoses / Procedures Referred By Contac t Referred To Contact Radiology Diagnoses Pre-operative cardiovascular examination, high risk surgery Procedures NM Exercise Stress Myocardial Perfusion Genet Thomas V CORRECTION OFFICER SUPERVISOR [facility] [place] [address] [place] [address] Referral ID Status Reason Start Date Expiration Date V isits Requested Visits Authorized [id number] Closed Specialty Service Requested 12/28/2017 12/28/2018 4 4 Encounter Details Date Type Department Care Team (Late st Contact Info) Description 01/03/2018 9:51 AM EDT Hospital Encounter [place] [address] Genet Thomas V [facility] [place] [address] Discharge Disposition: Home Social History [...] AM EDT Office Visit Hematology/Oncology at [address] [address] Heber Phillips MD [facility] DR HEMATOLOGY [place] [address] Isabella Baker APRN [facility] [place] [address] documented as of this encounter Procedures Procedure [...] at 01/03/2018 3:09 PM Genet Thomas V, DEVANTE IMG NM ORDERABL ES documented in this encounter Visit Diagnoses Not on filedocumented in this encounter Care Teams Keyboarding Teacher Relationship Specialty Start Date End Date Nataliya Messina MD [address] [place] [address] [address] [facility] 1 [place] [address] PCP - General 10/02/11 01/11/22 documented as of this encounter
--- OUTSIDE RECORDS SUMMARY | 2024-02-09 02:17 | XMS_ITS | Encounter Summary ---
Author Organization [facility] Address [facility] [place] [address] Care Team Providers Care Promotional Advertising Assistant Name Role Phone Nataliya Messina MD Primary Care Provider [phone] Encounter Details Date Type Department Care Team (Late st Contact Info) Description 01/03/2018 10:21 AM EDT - 01/03/2018 2:52 PM EDT Hospital Encounter Non-In[place] [address] Genet Thomas APRN [facility] [place] [address] Pre-operative cardiovascular examination, high risk surgery Discharge [...] AM EDT Office Visit Hematology/Oncology at [address] [address] Heber Phillips MD [facility] DR [place] [address] Isabella Baker APRN [facility] [place] [address] documented as of this encounter Procedures Procedure [...] examination documented in this encounter Care Teams Promotional Advertising Assistant Relationship Specialty Start Date End Date Nataliya Messina MD [address] [place] [address] PCP - General 10/02/11 01/11/22 documented as of this encounter
--- OUTSIDE RECORDS SUMMARY | 2024-02-09 02:17 | XMS_ITS | Encounter Summary ---
Author Organization [facility] [place] [address] Care Team Providers Care Communication Studies Professor Name Role Phone Nataliya Messina MD Primary Care Provider [phone] Encounter Details Date Type Department Care Team (Late Contact Info) Description 12/28/2017 Telephone [place] [phone] Cady Petersen Social History Tobacco Use Types [...] Upcoming Encounters Date Type Department Care Team ([facility] Contact Info) Description 03/28/2024 10:00 AM EDT Office Visit Hematology/Oncology at [address] [address] Heber Phillips MD [facility] DR HEMATOLOGY [place] [address] Isabella Baker APRN [facility] [place] [address] documented as of this encounter Visit Diagnoses Not on filedocumented in this encounter Care Teams Communication Studies Professor Relationship Specialty Start Date End Date Nataliya Messina MD [address] [place] [address] PCP - General 10/02/11 01/11/22 documented as of this encounter
--- OUTSIDE RECORDS SUMMARY | 2024-02-09 02:17 | XMS_ITS | Encounter Summary ---
Author Organization [facility] [place] [address] Care Team Providers Care Material Control Clerk Name Role Phone Nataliya Messina MD Primary Care Provider [phone] Encounter Details Date Type Department Care Team (Late st Contact Info) Description 12/28/2017 Notes Only [place] [phone] Angela Mercer Social History Tobacco Use Types [...] Informed Consent to Participate in Clinical Trial [id number]: a feasibility study of unsupervised, pre-operative exercise program (uPEP) for patients scheduled for lung cancer surgery Hieu Tillman was seen in the Thoracic Surgery clinic on 12/28/2017. Hieu was offered the opportunity to participate in study [id number]: a feasibility study of unsupervised, pre-operative exercise [...] this protocol and consented to participate in [id number]: a feasibility study of unsupervised, pre-operative exercise [...] AM EDT Office Visit Hematology/Oncology at [address] [address] Heber Phillips MD [facility] DR HEMATOLOGY [place] [address] Isabella Baker APRN [facility] [place] [address] documented as of this encounter Visit Diagnoses Not on filedocumented in this encounter Care Teams Material Control Clerk Relationship Specialty Start Date End Date Nataliya Messina MD [address] [place] [address] [address] [facility] 1 [place], [place] [address] PCP - General 10/02/11 01/11/22 documented as of this encounter
--- OUTSIDE RECORDS SUMMARY | 2024-02-09 02:17 | XMS_ITS | Encounter Summary ---
[place] [address] Care Team Providers Care Paper Stacker Name Role Phone Nataliya Messina MD Primary Care Provider Encounter Details Date Type Department Care Team (Late st Contact Info) Description 01/07/2018 Telephone [place] [phone] Ashley Dykes RN Social History Tobacco Use [...] encounter Miscellaneous Notes * Telephone Encounter - Ashley Dykes RN - 01/07/2018 8:45 AM EDT [...] AM EDT Office Visit Hematology/Oncology at [address] [address] Heber Phillips MD [facility] DR [place] [address] Isabella Baker APRN [facility] [place] [address] documented as of this encounter Visit Diagnoses Not on filedocumented in this encounter Care Teams Paper Stacker Relationship Specialty Start Date End Date Nataliya Messina MD [address] [place] [address] PCP - General 10/02/11 01/11/22 documented as of this encounter
--- OUTSIDE RECORDS SUMMARY | 2024-02-09 02:17 | XMS_ITS | Encounter Summary ---
Author Organization [facility] Address [facility] [place] [address] Care Team Providers Care Community Coordinator Name Role Phone Nataliya Messina MD Primary Care Provider [phone] Reason for Visit * Reason Comments Chemotherapy Cycle 1 day 1 * Treatment/Therapy Plan Authorization (Routine) - Closed Specialty Diagnoses / Procedures Referred By Keven lozano Referred To Contact Diagnoses Small cell lung cancer, right upper lobe Heber Phillips MD [facility] DR HEMATOLOGY [place] [address] St Hem Onc Office [address] [place] [address] Referral ID Status Reason Start Date Expiration Date Visits Re quested Visits Authorized [id number] Closed 01/20/2018 01/20/2019 1 1 Encounter Details Date Type Department Care Team (Late st Contact Info) Description 01/26/2018 12:00 PM EDT Infusion Hematology Oncology at [address] [address] Small cell lung cancer, right [...] DATA: WNL IV ACCESS: Mediport accessed from [facility] today, placed today at [facility] Pre administration: Chemotherapy orders independently verified for drug name, route, and dosage per patient's height, weight and BSA by ALYSSA PEREZ RN & Jarod Benitez [facility]. REACTIONS (DESCRIPTION, TIME, INTERVENTION AND EFFECTIVENESS) none ASSESSMENT Hieu Tillman was awake, alert and tolerated treatment well. Pt. chemo teaching instructions included: During clinic hours (8am-5pm Wednesday-Wednesday): pt. can call [phone] with questions or concerns. After clinic hours (5pm-8am Wednesday-Wednesday and weekends) pt can call [phone] and ask for the skid wrapper/oncologist injection molding process technician. Hieu Tillman verbalized understanding of potential chemotherapy [...] AM EDT Office Visit Hematology/Oncology at [address] [phone] Heber Phillips MD [facility] DR HEMATOLOGY [place] [address] Isabella Baker APRN [facility] [place] [address] documented as of this encounter Visit Diagnoses [...] 2 minutes is a recommendation from the entertainment lawyer. Administer prior to chemotherapy., Routine Given 01/26/2018 [...] Job Aid: Adult Flushing & Catheter Care (6068) job aid for additional information regarding guidelines [...] Job Aid: Adult Flushing & Catheter Care (1849) job aid for additional information regarding guidelines and administration., Routine Given 01/26/2018 4:50 PM EDT 20 mLs documented in this encounter Care Teams Community Coordinator Relationship Specialty Start Date End Date Nataliya Messina MD [address] [place] [address] [address] [place] [address] PCP - General 10/02/11 01/11/22 documented as of this encounter
--- OUTSIDE RECORDS SUMMARY | 2024-02-09 02:17 | XMS_ITS | Encounter Summary ---
Author Organization [facility] [place] [address] Care Team Providers Care Certified Corporate Travel Executive Name Role Phone Nataliya Messina MD Primary Care Provider [phone] Encounter Details Date Type Department Care Team (Latest Contact Info) Description 12/28/2017 3:30 PM EDT - 12/28/2017 11:59 PM EDT Hospital Encounter [place] [address] Mass of right lung Discharge Disposition: Home [...] AM EDT Office Visit Hematology/Oncology at [address] [phone] Heber Phillips MD [facility] DR HEMATOLOGY [place] [address] Isabella Baker APRN [facility] [place] [address] documented as of this encounter Procedures Procedure [...] lung documented in this encounter Care Teams Certified Corporate Travel Executive Relationship Specialty Start Date End Date Nataliya Messina MD [address] [place] [address] PCP - General 10/02/11 01/11/22 documented as of this encounter
--- OUTSIDE RECORDS SUMMARY | 2024-02-09 02:17 | XMS_ITS | Encounter Summary ---
Author Organization [facility] [place] [address] Care Team Providers Care Sack Repairer Name Role Phone Nataliya Messina MD Primary Care Provider [phone] Reason for Visit * Consultation (Routine) - Closed Specialty Diagnoses / Procedures Referred By Contac t Referred To Contact Radiation Oncology Diagnoses Small cell lung cancer, right upper lobe Procedures Simulation for Radiation Therapy Planning Mikhail Cadena MD [address] [place] [address] [place] [address] [facility] Rad Onc Office [address] [place] [phone] Referral ID Status Reason Start Date Expiration Date V isits Requested Visits Authorized [id number] Closed Consult, Test & Treat 01/17/2018 01/17/2019 1 1 Encounter Details Date Type Department Care Team (Late st Contact Info) Description 01/19/2018 10:00 AM EDT Ancillary Appointment Radiation Oncology at [address] [phone] Mikhail Cadena MD [address] [place] [address] [place] [address] Social History Tobacco Use Types [...] to help manage the side effects. ?? Nutritional Health Coach - They take the doctors radiation prescription [...] a well balanced diet is recommended. The winding rack operator and nurse will inform you of any special diet requirements. Avoid shaving the treatment area with a razor. If you must shave use an electric razor. Our Contact numbers Section of Radiation Oncology Our normal business hours are: Wednesday - Wednesday: 8:00 AM to 5:00 PM [facility]: [facility]: If you have questions about your radiation [...] injury ?? A Radiation Oncology doctor is senior treasury consultant after our normal hours and on weekends. ?? To call for urgent medical issues from radiation treatments that can not wait until normal business hours: ?? Call for either location and have the straw hat brim raiser operator page the Radiation Oncologist senior treasury consultant. documented in this encounter Progress Notes * [...] pre- medication plan made: None needed. Referrals: POULTRY SEXER per protocol. * Mikhail Cadena MD - 01/19/2018 10:00 AM EDT Simulation Note for External Beam Radiation Treatment Planning [facility] Scott Tillman is a 62 y.o. year [...] of any short term side effects or usp complications of therapy. In addition, respiratory gating [...] AM EDT Office Visit Hematology/Oncology at [address] [phone] Heber Phillips MD [facility] [place] [address] Isabella Baker APRN [facility] [place] [address] documented as of this encounter Visit Diagnoses Not on filedocumented in this encounter Care Teams Sack Repairer Relationship Specialty Start Date End Date Nataliya Messina MD [address] [place] [address] [address] [place] [address] PCP - General 10/02/11 01/11/22 documented as of this encounter
--- OUTSIDE RECORDS SUMMARY | 2024-02-09 02:17 | XMS_ITS | Encounter Summary ---
[place] [address] Care Team Providers Care Choir Accompanist Name Role Phone Nataliya Messina MD Primary Care Provider [phone] Encounter Details Date Type Department Care Team (Late Contact Info) Description 12/28/2017 Notes Only [place] [phone] Aga Petersen, RN Social History Tobacco Use [...] AM EDT Office Visit Hematology/Oncology at [address] [phone] Heber Phillips MD [facility] DR [place] [address] Isabella Baker APRN [facility] [place] [address] documented as of this encounter Visit Diagnoses Not on filedocumented in this encounter Care Teams Choir Accompanist Relationship Specialty Start Date End Date Nataliya Messina MD [address] [place] [address] PCP - General 10/02/11 01/11/22 documented as of this encounter
--- OUTSIDE RECORDS SUMMARY | 2024-02-09 02:17 | XMS_ITS | Encounter Summary ---
Author Organization [facility] [place] [address] Care Team Providers Care Emergency Room Tech Name Role Phone Nataliya Messina MD Primary Care Provider [phone] Encounter Details Date Type Department Care Team (Latest Contact Info) Description 01/03/2018 2:53 PM EDT - 01/03/2018 11:59 PM EDT Hospital En[place] [phone] Harry [place] Mass of right lung; [...] AM EDT Office Visit Hematology/Oncology at [address] [phone] Heber Phillisp MD [facility] [place] [address] Isabella Baker APRN [facility] [place] [address] documented as of this encounter Procedures Procedure Name Priority Date/Time Associated Diagnosis Comments CAROTID DUPLEX, BILATERAL Routine 01/03/2018 3:10 PM EDT Mass of right lung Pre-operative cardiovascular examination, high risk surgery documented in this encounter Results * Cerebrovascular Duplex, Bilateral (01/03/2018 3:10 PM EDT) VB Text Report Department: Vascular Surgery Lab Patient: [id number] (BRITTA SAEED) CPT: 10985 ICD10: R91.8;Z01.810 Referring Physician: BALBINA CORTES ?? [...] Balbina Rivero APRN VASCULAR ORDERA BLES [facility] documented in this encounter Visit Diagnoses Diagnosis Mass of right lung Pre-operative cardiovascular examination, high risk surgery Pre-operative cardiovascular examination documented in this encounter Care Teams Emergency Room Tech Relationship Specialty Start Date End Date Nataliya Messina MD [address] [place] [address] [address] [facility] 1 [place] [address] PCP - General 10/02/11 01/11/22 documented as of this encounter
--- OUTSIDE RECORDS SUMMARY | 2024-02-09 02:17 | XMS_ITS | Encounter Summary ---
Author Organization [facility] Address [facility] [place] [address] Care Team Providers Care Natural Gas Treating Unit Operator Name Role Phone Nataliya Messina MD Primary Care Provider [phone] Encounter Details Date Type Department Care Team (Late Contact Info) Description 01/18/2018 Telephone [place] [phone] Kingsley Ortiz MD [facility] [place] [address] Social History Tobacco Use Types Packs/Day Years [...] AM EDT Office Visit Hematology/Oncology at [address] [phone] Heber Phillips MD [facility] [place] [address] Isabella Baker APRN [facility] [place] [address] documented as of this encounter Visit Diagnoses Not on filedocumented in this encounter Care Teams Natural Gas Treating Unit Operator Relationship Specialty Start Date End Date Nataliya Messina MD [address] [place] [address] PCP - General 10/02/11 01/11/22 documented as of this encounter
--- OUTSIDE RECORDS SUMMARY | 2024-02-09 02:17 | XMS_ITS | Encounter Summary ---
Author Organization [facility] [place] [address] Care Team Providers Care Veterinary Meat Inspector Name Role Phone Nataliya Messina MD Primary Care Provider [phone] Encounter Details Date Type Department Care Team (Late Contact Info) Description 12/29/2017 Telephone [place] [phone] Cady Petersen Social History Tobacco Use Types [...] Upcoming Encounters Date Type Department Care Team ([facility] Contact Info) Description 03/28/2024 10:00 AM EDT Office Visit Hematology/Oncology at [address] [phone] Heber Phillips MD [facility] DR HEMATOLOGY [place] [address] Isabella Baker APRN [facility] [place] [address] documented as of this encounter Visit Diagnoses Not on filedocumented in this encounter Care Teams Veterinary Meat Inspector Relationship Specialty Start Date End Date Nataliya Messina MD [address] [place] [address] PCP - General 10/02/11 01/11/22 documented as of this encounter
--- OUTSIDE RECORDS SUMMARY | 2024-02-09 02:17 | XMS_ITS | Encounter Summary ---
Author Organization Formerly [facility] [place] [address] Care Team Providers Care Supervisory Geographer Name Role Phone Nataliya Messina MD Primary Care Provider [phone] Encounter Details Date Type Department Care Team (Late st Contact Info) Description 01/05/2018 8:54 AM EDT Anesthesia Event [place] [id number] Racquel Juan MD [facility] [place] [address] Anesthesia Record Procedure Summary Procedure Name Responsible [...] 1010; median cubital vein (antecubital fossa), right; ltld-lts-cpkhmr catheter system; 22 gauge; LDA not present upon assessment; 02/21/21 01/03/18 1010 by Jem Bentley 02/21/21 0000 by Razia Hurst, BOB (RETIRED) Peripheral IV Line - Single Lumen 01/05/18; 0815; median cubital vein (antecubital fossa), right; kswt-obh-uljbuz catheter system; 20 gauge; distraction, intradermal injection, [...] Whitt MD - 01/05/2018 12:45 PM EDT [facility] Department of Anesthesiology Post-procedure Note Patient: Hieu Tillman Procedure Summary Date Anesthesia Start Anesthesia Stop Room / Location 01/05/18 0854 1027 [facility] Procedure Diagnosis Surgeon Responsible Provider Matty SWANN ENDOBRONCHIAL ULTRASOUND (EBUS) GUIDED SAMPLING, 3+ NODES (WRVU 5.21) (N/A ) Mass of right lung (Lung mass and LAD) Kingsley Ortiz MD Chow, Vinca W, MD All Anesthesia Providers: Anesthesiologist: Racquel Juan MD Dispatcher Service: Lb Whitt MD; Tanya Escobar MD Most Recent Vitals: 01/05/18 1100 BP: 121/76 Pulse: 79 Resp: 18 Temp: SpO2: 96% Pain Patient Location: PACU/SD Level of Consciousness: Awake and Alert Pain [...] infarction ND about 6 years ago @ [facility] [place] ??? PVD (peripheral vascular [...] 21.16) performed by Omero Wills MD at [facility] MAIN OR Social History Substance Use [...] y.o. male with PMHx of CAD s/p ND in 2013, HTN, HLD, COPD, PVD, and stroke scheduled for bronch and EBUS Medical History: CAD s/p ND in 2013, HTN, HLD, COPD, PVD, and [...] ETT Standard ASA monitoring PIV access Tanya Escoabr MD 01/04/2018 Attending Assessment: Patient personally seen and examined. 62yo M with h/o COPD, CAD s/p ND 2013 and PTCA to LCx x2, HTN, [...] AM EDT Office Visit Hematology/Oncology at [address] [phone] Heber Phillips MD [facility] DR HEMATOLOGY [place] [address] Isabella Baker APRN [facility] [place] [address] documented as of this encounter Visit Diagnoses [...] mg documented in this encounter Care Teams Supervisory Geographer Relationship Specialty Start Date End Date Nataliya Messina MD [address] [place] [address] PCP - General 10/02/11 01/11/22 documented as of this encounter
--- OUTSIDE RECORDS SUMMARY | 2024-02-09 02:18 | XMS_ITS | Encounter Summary ---
Author Organization [facility] Address [facility] [place] [address] Care Team Providers Care Echocardiograph Tech Name Role Phone Nataliya Messina MD Primary Care Provider [phone] Encounter Details Date Type Department Care Team (Latest Contact Info) Description 12/10/2017 - 12/10/2017 11:59 PM EDT Hospital Encounter [place] [address] Kingsley Ortiz MD [facility] [place] [address] Discharge Disposition: Home Social History Tobacco Use [...] AM EDT Office Visit Hematology/Oncology at [address] [phone] Heber Phillips MD [facility] DR [place]OLOG[place] [address] Isabella Baker APRN [facility] [place] [address] documented as of this encounter Procedures Procedure [...] Ortiz MD IMG FILM LIBRARY ORD ERABLES [place], [place] documented in this encounter Visit Diagnoses Not on filedocumented in this encounter Care Teams Echocardiograph Tech Relationship Specialty Start Date End Date Nataliya Messina MD [address] [place] [address] PCP - General 10/02/11 01/11/22 documented as of this encounter
--- OUTSIDE RECORDS SUMMARY | 2024-02-09 02:18 | XMS_ITS | Encounter Summary ---
Author Organization [facility] Address [facility] [place] [address] Care Team Providers Care Journeyman Electrician Pv Installer Name Role Phone Nataliya Messina MD Primary Care Provider [phone] Encounter Details Date Type Department Care Team (Latest Contact Info) Description 12/15/2017 - 12/15/2017 11:59 PM EDT Hospital Encounter [place] [address] Kingsley Ortiz MD [facility] [place] [address] Discharge Disposition: Home Social History Tobacco Use [...] AM EDT Office Visit Hematology/Oncology at [address] [phone] Heber Phillips MD [facility] DR [place] [address] Isabella Baker APRN [facility] [place] [address] documented as of this encounter Procedures Procedure [...] Ortiz MD IMG FILM LIBRARY ORD ERABLES [place], [place] documented in this encounter Visit Diagnoses Not on filedocumented in this encounter Care Teams Journeyman Electrician Pv Installer Relationship Specialty Start Date End Date Nataliya Messina MD [address] [place] [address] PCP - General 10/02/11 01/11/22 documented as of this encounter
--- OUTSIDE RECORDS SUMMARY | 2024-02-09 02:18 | XMS_ITS | Encounter Summary ---
Author Organization [facility] [place] [address] Care Team Providers Care Meter Reader Name Role Phone Nataliya Messina MD Primary Care Provider [phone] Reason for Visit * Reason Comments Follow-up yearly Coronary Artery Disease Encounter Details Date Type Department Care Team (Late st Contact Info) Description 06/28/2017 3:20 PM EST Office Visit Cardiology at [address] [phone] Lauri Winn Jr., MD [address] [place] [id number] ASCVD (arteriosclerotic cardiovascular disease); Essential hypertension; Hyperlipidemia, [...] AM EDT Office Visit Hematology/Oncology at [address] [phone] Heber Phillips MD [facility] DR HEMATOLOGY [place] [address] Isabella Baker APRN [facility] [place] [address] documented as of this encounter Visit Diagnoses Diagnosis ASCVD (arteriosclerotic cardiovascular disease) Unspecified cardiovascular disease Essential hypertension Unspecified essential hypertension Hyperlipidemia, unspecified hyperlipidemia type documented in this encounter Care Teams Meter Reader Relationship Specialty Start Date End Date Nataliya Messina MD [address] [place] [address] PCP - General 10/02/11 01/11/22 documented as of this encounter
--- OUTSIDE RECORDS SUMMARY | 2024-02-09 02:18 | XMS_ITS | Encounter Summary ---
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, right right carotid stenosis, symptomatic Procedures @ENDARTERECTOMY, CAROTID, VERTEBRAL,SUBCLAVIAN W\WO PATCH GRAFT (WRVU 21.16) Referral ID Status Reason Start Date Expiration Date Visits Re quested Visits Authorized [id number] 1 1 Encounter Details Date Type Department Care Team (Latest Contact Info) Description 10/19/2016 1:31 PM EDT - 10/22/2016 12:35 PM EDT Hospital Encounter 5 [place] [address] Lisa Ford MD [facility] EMERGENCY MEDICINE [place] [id number] Anshu Maciel MD [facility] [place] [address] Lise Segura MD [facility] [place] [address] Central artery occlusion of retina, right; Stenosis [...] Hieu Tillman Patient Age: 61 y.o. Language: Malian Race: White Ethnicity: Not nor Admit date: [...] medication. He was last seen by his deal architect, Dr. Whitt, in April of 2016, at [...] well, good PO intake, adequate output following torres removal, ambulates with minimal assist. Pt is [...] or questions please call our office at [phone] Lucrecia Aaron, BSN, aligner typewriter Nurse Clinician For issues on weeknights after 5pm and weekends please call [phone] and ask for the Vascular Fellow soup person. General Instructions None Future Appointments and Orders Future Appointments Provider Department Dept Phone 11/17/2016 10:30 AM Vianca Castillo SC Vascular Lab [phone] 11/17/2016 11:15 AM Lise Segura MD Vascular Surgery [phone] 11/19/2016 1:30 PM Anshu Maciel MD Neurology [phone] 01/26/2017 11:00 AM Gucci Rosas MD Ophthalmology [phone] Check-in: [facility]. 05/20/2017 9:20 AM Lauri Winn Jr., MD Cardiology at [place] [phone] Future Orders Complete By Expires Carotid Duplex, Unilateral [VAS2 Custom] 11/21/2016 (Approximate) 10/22/2017 Process Instructions: There is no in-house vascular slabber light available on weeknights (5pm-8am), weekends, or holidays. IF THIS IS A REQUEST FOR AN EMERGENT STUDY DURING THOSE HOURS, please have the senior provider responsible for the patient page the Vascular Surgery Fellow/Senior Resident soup person to discuss options. Scheduling Instructions: Questions: Laterality: Right Lower limb right segments: Other Is there a stent?: No Indication for study/signs & symptoms: s/p right carotid endarterectomy Question to be answered: patency Which [facility] location will this be performed?: [place] Referral to Home Health - at DISCHARGE [[id number] CPT(R)] As directed Process Instructions: Scheduling Instructions: DOCUMENTATION FOR VNA SERVICES (INCLUDING THOSE PATIENTS WITH MEDICARE COVERAGE REQUIRING HOME VNA SERVICES AND/OR HOSPICE SERVICES) PATIENT'S LOCATION: Hieu Tlilman [address] [place] [address] (home) Cell: No relevant phone numbers on file. Termite Treater's Name: Patient In discussion with the attending physician, it is certified that this patient is under their care and that they, or a Nurse Practitioner,Clinical Nurse specialist or Physician Plywood Matcher who is working directly with them, had [...] re health issues HOME HEALTH CARE AGENCY: [facility] PHONE: [phone] FAX: [phone] Start of care: 24-48 hours of discharge Please note that any additional orders needs or changes will need to be obtained from this patient's PCP: Nataliya Messina MD [address] / [facility] [address] All [facility] agencies which cover the area of patient's residence have been reviewed, either verbally ruthy writing, and patient/family have chosen the home health care agency noted Questions: Agency name and contact information: [facility] Patient location post discharge: home What services are requested: Registered Nurse Start date: Responsible MD post discharge contact info: PCP Primary Care Provider: Nataliya Messina MD [address] / [facility] [address] Discharge References/Attachments None documented in this encounter [...] or questions please call our office at [phone] DWAYNE Velazquez, aligner typewriter Nurse Clinician For issues on weeknights after 5pm and weekends please call [phone] and ask for the Vascular Fellow soup person. documented in this encounter Medications at Time [...] MSW - 10/22/2016 9:28 AM EDT The patient/scheduling representative has been provided a list of [...] of discharge: 10/22. Referral routed to the Wealth Management Manager for matching with agency/vendor and to provide [...] L Elbow flexion 5/5 R, 5/5 L Taffy Puller LE: 5/5 R, 5/5 L Hip flexion [...] MD Neurology Resident PGY 3 Vascular Neurology 6261 Associated attestation - Denisse Sheffield MD - [...] 6:16 AM EDT Cardiac/Telemetry Nursing Progress Note [id number] Subjective: No events noted by RN, tele [...] vomiting, chest pain or shortness of breath. Torres removed overnight, voiding spontaneously Mild CHANDLER overnight [...] L Elbow flexion 5/5 R, 5/5 L Taffy Puller LE: 5/5 R, 5/5 L Hip flexion [...] -CUS -MRI brain wo contrast, MRA head/neck -PT/OT/INSERTER OPERATOR -follow up with ophthalmology-retinal specialist in 3 [...] Cassia Howell MD Neurology Resident Vascular Neurology 8528 Associated attestation - Anshu Maciel MD - 10/21/2016 11:20 PM EDT Neurology [...] improved with Tylenol. Complains about presence of torres. Tolerating diet. Denies nausea, vomiting, chest pain, [...] formation. - Watch for worsening headache. - Otrres removal at midnight. - SBP goal 90-150 mmHg. * Mary Frederick RN - 10/20/2016 8:52 PM EDT Report received from Dante ROJAS, care assumed. Pt resting quietly in bed, eyes closed, NAD. 0: Family at bedside. 1955: A-line d/c'd by Mary ROJAS. 2009: Report called to [facility] on 5 and pt placed in for transportation to [facility]. * Lise Segura MD - 10/20/2016 5:59 PM EDT Vascular Attending Note I evaluated Mr. Tillman in the PACU approximately 1 hour after his surgery. He was awake and alert. Vital signs were normal. His only complaint was discomfort related to the Torres catheter. Exam notable for normal vital signs. His motor and sensory exams are intact. Tongue midline. No neck hematoma or bleeding. Impression: Doing well. Plan: Routine post CEA care path. Careful attention to blood pressure control. Possible early removal of Torres catheter. Ongoing neurovascular checks. Lise Segura M.D. [...] and plan. Please page Vascular Neurology at #[phone] with any questions. Pushpa Kearney APRN Personal Pager #[phone] [place] [address] * Crawford Ingrid R - 10/20/2016 7:58 AM EDT Vascular Surgery - Consult Note Patient Name: Hieu Tillman : [id number] MR#: [id number] 10/19/2016 Hospital Day 1 day ID: Mr. [...] puff, Inhalation, 2 times per day, Anshu Maciel MD, 2 puff at 10/19/162023 ??? ipratropium-albuterol [...] cells. Midline structures are unremarkable. ?? MRA [place]: The intracranial vessels are normal [...] side marked Continue ASA, Plavix, Lipitor INGRID CRAWFORD MD Vascular Surgery Service [id number] Associated attestation [...] benefits. For risks, I specifically cited stroke, [place], , CN injury, infection, bleeding and others. [...] his eye. Does haveheadache in the right episcopalian area this AM. Got tylenol. Medications: Scheduled [...] L Elbow flexion 5/5 R, 5/5 L Taffy Puller LE: 5/5 R, 5/5 L Hip flexion [...] -CUS -MRI brain wo contrast, MRA head/neck -PT/OT/INSERTER OPERATOR -follow up with ophthalmology-retinal specialist in 3 [...] Cassia Howell MD Neurology Resident Vascular Neurology 3137 Associated attestation - Anshu Maciel MD - 10/20/2016 8:10 PM EDT Neurology [...] AM after presenting to his PCP. The vp public relations, (Dr. Yao) evaluated the patient and performed [...] Social History Narrative Lives with his in [place], [place]. 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 [...] L Elbow flexion 5/5 R, 5/5 L Taffy Puller LE: 5/5 R, 5/5 L Hip flexion [...] EKG -Telemetry -CUS -MRI brain wo contrast -PT/OT/INSERTER OPERATOR -follow up with ophthalmology-retinal specialist in 3 [...] Cassia Howell MD Neurology Vascular Neurology Pager [phone] Standard [facility] Swallow Screen: This screen is to [...] diet as medical provider deems appropriate. Consider INSERTER OPERATOR consult for full evaluation and diet recommendations. ??? If NO to any of the responses, stop immediately, keep patient NPO and notify physician. ??? Associated attestation - Anshu Maciel MD - 10/19/2016 11:18 PM EDT Neurology [...] of two midnights or is on the [facility] inpatient only procedure list (status C) [...] PM EDT Pt returned to room by BAND SALVAGER about 1700, family @ his side. He has been seen by neurosurgery team, isaware he will be admitted to the floor. Call escobar in reach. * Bautista Coker RN - 10/19/2016 4:16 PM EDT To MRI by RN * Bautista Coker RN - 10/19/2016 3:36 PM EDT Pt has returned from vascular by desktop technician. Family in room @ his side, [...] visual field is black. He presented to [facility] ED who transferred him to [facility] Ophthalmology. He was diagnosed with central [...] recommendations Belen Garcia PGY-2 Emergency Medicine Pager: [phone] *This note was dictated with DeviceFidelity software. Belen Garcia MD Resident 10/20/16 0112 [...] H/a pain unchanging managed w/ Tylenol, see AUG. Son slept @ bedside, family @ bedside [...] Jessica Lopez - 10/20/2016 4:49 PM EDT [facility] Operative Note Patient Name: Hieu Tillman : [id number] MR#: [id number] Case Date: 10/20/2016 ?? Surgeon: Surgeon(s) and [...] Implant Name Type Inv. Item Serial No. Avionics Shop Supervisor Lot No. LRB No. Used Action PATCH,BIOL,XENOSURE,.8X8CM ([id number]) - [id number] IMPLANTS PATCH,BIOL,XENOSURE,.8X8CM ([id number]) ? [employer] - [id number] Right 1 Implanted ?? Infection Bundle used? [...] intubated with an ETT. Additional support lines (torres, arterial line, PIVs) were placed. Preoperative antibiotics [...] carotid artery in standard fashion. Using a [place] elevator, endarterectomy of the common carotid and [...] Operative Note Patient Name: Hieu Tillman : [id number] MR#: [id number] Case Date: 10/20/2016 Surgeon: Surgeon(s) and Role: [...] Implant Name Type Inv. Item Serial No. Avionics Shop Supervisor Lot No. LRB No. Used Action PATCH,BIOL,XENOSURE,.8X8CM ([id number]) - [id number] IMPLANTS PATCH,BIOL,XENOSURE,.8X8CM ([id number]) [employer]. - [id number] Right 1 Implanted Infection Bundle used? N/A [...] none Primary Care Provider: Nataliya Messina MD [phone] Patient/Caregiver Goals of Treatment: survival Potential Needs [...] transition of care planning. SUNNI Cotter Pager: [phone] * Plan of Care - Laurie Napoles RN - 10/20/2016 3:40 AM EDT Problem: Patient Care Overview Goal: Plan of Care Review Outcome: Ongoing (Interventions Implemented as Appropriate) 10/20/16 3801 Coping/Psychosocial Plan Of Care Reviewed With patient [...] this time in hospital course [ ] Detention Facility Goal: Fall Prevention-Safe Patient Handling Outcome: [...] Consult Note Patient Name: Hieu Tillman : [id number] MR#: [id number] 10/19/2016 Hospital Day 0 days ID: We [...] medication. He was last seen by his deal architect, Dr. Whitt, in April of 2016, at [...] Social History Narrative Lives with his in [place], [place]. 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 [...] facial droop noted. Pt is on the transportation director showing a NSR. Respirations are regular. documented in this encounter Plan of Treatment Upcoming Encounters Date Type Department Care Team (Late st Contact Info) Description 03/28/2024 10:00 AM EDT Office Visit Hematology/Oncology at [address] [phone] Heber Phillips MD [facility] DR HEMATOLOGY [place] [address] Isabella Baker APRN [facility] [place] [address] Scheduled Orders Name Type Priority Associated Diagnoses Orde r Schedule EKG 12 Lead ECG STAT Central artery occlusion of retina, right One Time for 1 Occurrences starting 10/19/2016 until 10/19/2016 documented as of this encounter Procedures Procedure Name Priority Date/Time Associated Diagnosis Comments STRAPPER SCAN 10/23/2016 12:00 AM EDT TRANSCRANIAL DUPLEX [...] 10/19/2016 3:10 PM EDT BASIC METABOLIC PANEL STAT 10/19/2016 3:[address] HEAD WO CONTRAST (GENERIC) STAT 10/19/2016 2:26 PM EDT CAROTID DUPLEX, BILATERAL STAT 10/19/2016 2:09 PM EDT documented in this encounter Results * Carotid Duplex, Unilateral (11/17/2016 10:34 AM EDT) VB Text Report Department: Vascular Surgery Lab Patient: [id number] (CHRISTOPHE HIEU) CPT: 32462 ICD10: H34.11 Referring Physician: LISE SEGURA ?? [...] MD VASCULAR ORDERABLES VASCUBASE * SCAN DOC: STRAPPER (10/23/2016 12:00 AM EDT) Anatomical Region Laterality Modality Other Narrative 10/23/2016 12:00 AM EDT Ordered by an unspecified provider. Scanning Provider MEDIA MGR SCAN EXT O RDR/RSLT * Transcranial Duplex, complete (10/21/2016 3:53 PM EDT) VB Text Report Department: Vascular Surgery Lab Patient: [id number] (HIEU TILLMAN) CPT: 17459 ICD10: Z48.812;I65.21 Referring Physician: LISE SEGURA ?? [...] PM EDT Lise Segura MD VASCULAR ORDERABLES VASCUBASE * EKG 12 Lead (10/21/2016 3:05 PM EDT) Ventricular rate 100 BPM MUSE SYSTEM Atrial Rate 100 BPM MUSE SYSTEM P-R Interval 154 ms MUSE SYSTEM QRS Duration 88 ms MUSE SYSTEM Q-T Interval 362 ms MUSE SYSTEM QTC Calculated (Bezet) 466 ms MUSE SYSTEM Calculated P [place] 68 degrees MUSE SYSTEM Calculated R [place] 64 degrees MUSE SYSTEM Calculated T [place] 71 degrees MUSE SYSTEM INTERPRETATION Normal sinus rhythm Normal ECG When compared with ECG of 19-OCT-2016 15:59, Vent. rate has increased BY ??33 BPM Confirmed by MD Fisher Timothy ([id number]) on 10/22/2016 10:52:40 AM MUSE SYSTEM 10/21/2016 3:05 PM EDT 10/22/2016 10:52 AM EDT Lise Segura MD ECG ORDERABLES MUSE SYSTEM * Carotid Duplex, Unilateral (10/20/2016 2:54 PM EDT) Pathologist [facility] VB Text Report Department: Vascular Surgery Lab Patient: [id number] (HIEU TILLMAN) CPT: 39134 ICD10: I65.21;H34.11 Referring Physician: ANSHU MACIEL ?? Indications: Intra-op scan R ??CEA ICD10 [...] ?n/a ?? n/a Electronically Signed by: LIN DOMÍNGUEZ on 2016-10-20 04:37:24 PM VASCUBASE VB Text Report End of Report VASCUBASE 10/20/2016 2:54 PM EDT Anshu Maciel MD VASCULAR ORDERABLE S VASCUBASE * ECHO COMPLETE (10/20/2016 12:06 PM EDT) EF 62 HEARTLAB SYSTEM Anatomical Region Laterality Modality Other 10/20/2016 Narrative 10/20/2016 3:56 PM EDT Procedure: ?Transthoracic Echocardiogram Patient: ?CHRISTOPHE Roche ? (Age): 1955(61y) Med Rec#: ? [id number] ?Sex: ?M ? Site Loc: ? [facility] ?Ht / Wt: ??168(cm)/77(kg) Pt. Loc: ?Adult Floor ? BSA: ?1.87 Study Date: ?? 10/20/2016 ?Pt. Type: Inpatient Tape: ? Referring: JAVIER YAO M Referring: Lisa Ford Reading: Trevin Cook ([id number]) Synthetic Resin Operator: Khadijah Mccabe Interpreting Fellow: Preethi Santana Diagnosis: *ICD-10-PCS Central retinal artery occlusion, right eye (H34.11) CPT Codes: *Echo Full (88038) *Spectral Doppler (32441) *Color Doppler (94228) BP: ? 126/67 SUMMARY: 1. The left [...] E-wave Vmax ?0.8 ?m/sec ? MV deceleration [id number] ?msec ? MV A-wave Vmax ?0.6 ?m/sec [...] ? Mid-Inferior ?Normal ? Mid-Inferoseptal ?Normal ? [place]-Septal ? Normal ? [place]-Anterior ? Normal ? [place]-Lateral ?Normal ? [place]-Inferior ? Normal ? [place]-Tip ?Normal ? This report has been electronically signed by: Trevin Cook MD ? 10/20/2016 15:56:38 Images reviewed and interpretation verified [facility] Cardiac Ultrasound Laboratory Procedure Note Trevin Cook MD - 10/20/2016 Procedure: Transthoracic Echocardiogram Patient: CHRISTOPHE Roche (Age): 1955(61y) Med Rec#: [id number] Sex: M Site Loc: [facility] Ht / Wt: 168(cm)/77(kg) Pt. Loc: Adult Floor BSA: 1.87 Study Date: 10/20/2016 Pt. Type: Inpatient Tape: Referring: JAVIER YAO M Referring: Lisa Ford Reading: Trevin Cook ([id number]) Synthetic Resin Operator: Khadijah Mccabe Interpreting Fellow: Preethi Santana Diagnosis: *ICD-10-PCS Central retinal artery occlusion, right eye (H34.11) CPT Codes: *Echo Full (60722) *Spectral Doppler (16386) *Color Doppler (19382) BP: 126/67 SUMMARY: 1. The left ventricular [...] MV E-wave Vmax 0.8 m/sec MV deceleration [id number] msec MV A-wave Vmax 0.6 m/sec MV [...] Normal Mid-Posterolateral Normal Mid-Inferior Normal Mid-Inferoseptal Normal [place]-Septal Normal [place]-Anterior Normal [place]-Lateral Normal [place]-Inferior Normal [place]-Tip Normal This report has been electronically signed by: Trevin Cook MD 10/20/2016 15:56:38 Images reviewed and interpretation verified [facility] Cardiac Ultrasound Laboratory Lisa Ford MD [...] right eye TECHNIQUE: Brain MRI and MRA [place] without contrast. Routine protocol. COMPARISON: [...] air cells. Midline structures are unremarkable. MRA [place]: The intracranial vessels are normal course and caliber without focal stenoses or aneurysms. Proximal ophthalmic arteries are patent. Procedure Note Kingsley Romero MD - 10/19/2016 EXAMINATION: MRI ANGIOGRAM HEAD & MRI BRAIN WO CONTRAST CLINICAL HISTORY: Central retinal artery occlusion right eye TECHNIQUE: Brain MRI and MRA [place] without contrast. Routine protocol. COMPARISON: [...] air cells. Midline structures are unremarkable. MRA [place]: The intracranial vessels are normal [...] (Bezet) 448 ms MUSE SYSTEM Calculated P [place] 54 degrees MUSE SYSTEM Calculated R [place] 60 degrees MUSE SYSTEM Calculated T [place] 67 degrees MUSE SYSTEM INTERPRETATION Normal sinus rhythm Normal ECG When compared with ECG of 20-AUG-2014 10:22, No significant change was found Confirmed by MD HEIDI, STEFAN ([id number]) on 10/20/2016 7:51:28 AM MUSE SYSTEM 10/19/2016 3:59 PM EDT 10/20/2016 7:51 AM EDT Lisa Ford MD ECG ORDERABLES MUSE SYSTEM * (ABNORMAL) Differential, Automated (10/19/2016 3:10 PM EDT) Pathologist [facility] Neutrophil % 68.5 % [facility] Neutrophil Absolute 6.86(H) 1.70 - 6.10 x10(3)/mc L [facility] Lymph % 17.5 % [facility] Lymphocytes Abs 1.8 0.9 - 3.2 x10(3)/mc L [facility] Monocyte % 10.0 % [facility] Monocyte Abs 1.0(H) 0.3 - 0.9 x10(3)/mc L [facility] Eos % 2.1 % [facility] Eosinophils Abs 0.2 0.0 - 0.4 x10(3)/mc L [facility] Basophil % 0.6 % [facility] Baso Absolute 0.1 0.0 - 0.1 x10(3)/mc L [facility] Immature Gran % 1.30 % [facility] Comment: Immature granulocytes(IG's)percentage and absolute count will include metamyelocytes, myelocytes, and promyelocytes. Blood smears from CBCs yielding IG's will be scanned manually for concordance. If this scan disagrees with the automated IG or if promyelocytes are noted, a manual differential will be performed. Immature Gran Absolute 0.13(H) 0.00 - 0.04 x10(3)/mc L [facility] Blood specimen (specimen) 10/19/2016 3:10 PM EDT 10/19/2016 3:18 PM EDT Narrative Resulting Agency Comment Spec In Lab Lisa Ford MD HEMATOLOGY ORDERABLE S [facility] [place] [address] * (ABNORMAL) Hemogram (10/19/2016 3:10 PM EDT) White Blood Cell 10.0(H) 4.0 - 9.5 x10(3)/ L [facility] Red Blood Cell 4.86 4.58 - 5.54 x10(6)/mc L [facility] Hemoglobin 13.7 13.7 - 16.5 gm/dL [facility] Hematocrit 41.3 40.5 - 48.5 % [facility] Mean Cell Volume 85.0 82.9 - 93.1 fL [facility] Mean Cell Hemoglobin 28.2 27.5 - 32.1 pg [facility] Mean Cell Hemoglobin Concentration 33.2 32.0 - 35.7 gm/dL [facility] Platelet 498(H) 145 - 357 x10(3)/mc L [facility] RDW Standard Deviation 44.1 36.0 - 45.0 fL [facility] RDW coefficient of variation 14.4(H) 11.4 - 13.8 % [facility] Mean Platelet Volume 9.5 7.6 - 12.9 fL [facility] NRBC% auto 0.0 % [facility] NRBC Absolute 0.000 0.000 - 0.000 x10(3)/mc L [facility] Blood specimen (specimen) 10/19/2016 3:10 PM EDT 10/19/2016 3:18 PM EDT Narrative Resulting Agency Comment Spec In Lab Lisa Ford MD HEMATOLOGY ORDERABLE S [facility] [place] [address] * (ABNORMAL) Hemoglobin A1c (10/19/2016 3:10 PM EDT) Hemoglobin A1c 5.8(H) 4.3 - 5.6 % [facility] Comment: Reference Range: 4.3 - [...] Mellitus, Diabetes Care 2013; 36: Suppl. 1, K12-81 Estimated Average Glucose 120 mg/dL [facility] Comment: eAG equivalents for HbA1c percentages: HbA1c(%) ?eAG(mg/dL) 6.0 ?126 6.5 ?140 7.0 ?154 7.5 ?169 8.0 ?183 8.5 ?197 9.0 ?212 9.5 ?226 10.0 ? 240 Limitations: The eAG calculation has not been validated on women, individuals below 18 years old and above 70 years old, and individuals with hemoglobinopathies. Additional resources are available on the ADA website: http://Taofang.com.cloudControl/DHMCadacalc Fahad PENA, Marcello J, Veronique R, et al. ??Translating the A1C assay into estimated average glucose values. ??Diabetes Care 2008:31(8):9995-5707. Blood specimen (specimen) 10/19/2016 3:10 PM EDT 10/19/2016 3:18 PM EDT Narrative Resulting Agency Comment Spec In Lab Lisa Ford MD CHEMISTRY ORDERABLES Performing Organization Address City/State/[facility] Co de Phone Number [facility] [place] [address] * (ABNORMAL) Lipid Panel (10/19/2016 3:10 PM EDT) Cholesterol, Total 127 <=239 mg/dL [facility] Triglyceride 166 <=199 mg/dL [facility] HDL Cholesterol 31(L) >=40 mg/dL [facility] LDL Cholesterol 63 <=190 mg/dL [facility] Cholesterol/HDL Ratio 4.1 ratio [facility] Lipid Interpretation See Note [facility] Comment: Lipid management should be guided by a patient? s ASCVD risk, goals and preferences. ACC/AHA Guidelines recommend high intensity statin if clinical ASCVD or LDL greater than or equal to 190 mg/dL. http://circ.ahajournals.org/content/early/.cir.8118953324.97734.7a Adults aged 40-75 with LDL 70-189 mg/dL should have their 10 year ASCVD risk estimated with the ACC/AHA ASCVD risk sales estimator http://tools.acc.org/OYFGG-Vdzf-Xtzcximbd/ Statin should be discussed if risk greater [...] Ford MD CHEMISTRY ORDERABLES Performing Organization Address [facility] Co de Phone Number [facility] [place] [address] * APTT (10/19/2016 3:10 PM EDT) Partial Thromboplastin Time 29 25 - 35 sec [facility] Comment: The recommended therapeutic range for full dose, unfractionated heparin at [facility] is 80 ? 114 seconds. The use of the anti-Xa (heparin) level rather than the PTT is recommended for monitoring anticoagulation intensity in critically ill patients receiving unfractionated heparin by continuous IV infusion. Blood specimen (specimen) 10/19/2016 3:10 PM EDT 10/19/2016 3:18 PM EDT Narrative Resulting Agency Comment Spec In Lab Lisa Ford MD HEMATOLOGY ORDERABLE S Performing Organization Address [facility] Co de Phone Number [facility] [place] [address] * Prothrombin Time (10/19/2016 3:10 PM EDT) Prothrombin Time 12.9 12.0 - 15.0 sec [facility] Comment: An INR <2.0 indicates adequate procoagulant activity for hemostasis in most patients without underlying bleeding disorders, though the INR may not adequately reflect hemostatic capacity in patients with liver disease and synthetic impairment. The recommended target INR range for therapeutic anticoagulation is 2.0 ? 3.0 for most applications, though lower and higher ranges may be appropriate depending on clinical circumstances. International Normalization Ratio 0.9 0.9 - 1.1 [facility] Blood specimen (specimen) 10/19/2016 3:10 PM EDT 10/19/2016 3:18 PM EDT Narrative Resulting Agency Comment Spec In Lab Lisa Ford MD HEMATOLOGY ORDERABLE S Performing Organization Address [facility] Co de Phone Number [facility] [place] [address] * (ABNORMAL) Sedimentation rate (10/19/2016 3:10 PM EDT) Sedimentation Rate Automated 18(H) 0 - 15 mm/hr [facility] Blood specimen (specimen) 10/19/2016 3:10 PM EDT 10/19/2016 3:18 PM EDT Narrative Resulting Agency Comment Spec In Lab Lisa Ford MD HEMATOLOGY ORDERABLE S Performing Organization Address [facility] Co de Phone Number [facility] [place] [address] * (ABNORMAL) Hepatic Function Panel (10/19/2016 3:10 PM EDT) Protein, Total 8.1(H) 6.1 - 8.0 gm/dL [facility] Albumin 4.7 3.2 - 5.2 gm/dL [facility] Aspartate Aminotransferase 22 0 - 39 unit/L [facility] Alanine Aminotransferase 29 0 - 55 unit/L [facility] Alkaline Phosphatase 110 40 - 120 unit/L [facility] Bilirubin, Total 0.2 0.2 - 1.3 mg/dL [facility] Bilirubin, Direct <0.1 0.0 - 0.3 mg/dL [facility] Blood specimen (specimen) 10/19/2016 3:10 PM EDT 10/19/2016 3:18 PM EDT Narrative Resulting Agency Comment Spec In Lab Lisa Ford MD CHEMISTRY ORDERABLES [facility] [place] [address] * (ABNORMAL) Basic Metabolic Panel (non-fasting) (10/19/2016 3:10 PM EDT) Glucose 95 65 - 199 mg/dL [facility] Comment:Diabetes: >=200 mg/d L plus symptoms Blood Urea Nitrogen 17 10 - 20 mg/dL [facility] Creatinine 1.06 0.80 - 1.50 mg/dL [facility] Comment: Please note that the pediatric reference intervals supplied above were not validated at [facility]. Results from pediatric patients should be interpreted in conjunction to the patient's age, height and muscle mass. Sodium 141 135 - 145 mmol/L [facility] Potassium 3.8 3.5 - 5.0 mmol/L [facility] Comment: Please note: ??Patients with WBC >100,000 may have falsely elevated Potassium levels. ??For accurate Potassium quantification in these patients send serum separator tube (gold top) for subsequent determinations. ??Contact the Clinical Chemistry Laboratory if there are any questions. Chloride 98 98 - 107 mmol/L [facility] Carbon Dioxide 23 22 - 31 mmol/L [facility] Anion Gap 20(H) 5 - 15 mmol/L [facility] Calcium 9.8 8.5 - 10.5 mg/dL [facility] Est Glomerular Filtration Rate >60 >=60 [facility] Comment: This estimated GFR (eGFR) [...] the following links into your internet browser. [email or web address] Blood specimen (specimen) 10/19/2016 3:10 PM EDT 10/19/2016 3:18 PM EDT Narrative Resulting Agency Comment Spec In Lab Lisa Ford MD CHEMISTRY ORDERABLES [facility] [place] [address] * CT Head wo Contrast (Generic) (10/19/2016 [...] Text Report Department: Vascular Surgery Lab Patient: [id number] (HIEU TILLMAN) CPT: 04334 ICD10: I65.23 Referring Physician: LISA FORD ?? [...] Tube, EVERY 6 HOURS PRN, Starting on 10/19/16 [...] dose on Wed10/19/16 at 2100, Until Discontinued, [place] teeth every 12 hours, Routine Given 10/22/2016 [...] Adt)2036 (AUG Unhold - Provider: Admin Adt) 1651 (Given - Provider: Ashley Barton, BOB) ceFAZolin [...] dose on Wed10/19/16 at 2100, Until Discontinued, [place] teeth every 12 hours, Routine 0844 (Not Given - Provider: Milli Akhtar RN - Reason: Patient/family refused)124 (AUG Hold - Provider: Admin Adt - Reason: Transfer to a Procedural area)2036 ([facility] Unhold - Provider: Admin Adt)2144 (Given - Provider: Hazel Lawson RN) 0843 (Given - Provider: Ashley Barton, BOB)2017 (Given - Provider: Hazel Lawson RN) 0933 (Given - Provider: Mayelin Cote RN) clopidogrel (PLAVIX) tablet 75 mg (CANCELED) 75 mg, Oral, DAILY, First dose on Wed10/19/16 at 1930, Until Discontinued, Routine 0845 (Given - Provider: Milli Akhtar RN)1249 ([facility] Hold - Provider: Admin Adt - Reason: Transfer to a Procedural area)2036 ([facility] Unhold - Provider: Admin Adt) clopidogrel (PLAVIX) tablet 75 mg 75 mg, Oral, DAILY, First dose on Wed10/21/16 at 0900, Until Discontinued, Routine 0841 (Given - Provider: Ashley Barton RN) 0931 (Given - Provider: Mayelin Cote, BOB) docusate sodium (COLACE) capsule 100 mg 100 mg, Oral, 2 TIMES DAILY, First dose on Wed10/19/16 at 2100, Until Discontinued, Routine 0845 (Given - Provider: Milli Akhtar RN)1249 ([facility] Hold - Provider: Admin Adt - Reason: Transfer to a Procedural area)2036 ([facility] Unhold - Provider: Admin Adt)214 (Given - Provider: Hazel Lawson RN) 0841 (Given - Provider: Ashley Barton RN)2018 (Given - Provider: Hazel Lawson RN) 0931 (Given - Provider: Mayelin Cote, RN) hydroCHLOROthiazide (HYDRODIURIL) tablet 25 mg (CANCELED) 25 [...] Admin Adt)1624 (AUG Unhold - Provider: Mary Harman RN)1700 (Due - Provider: Mary Harman, BOB)2145 (Given - Provider: Hazel Lawson RN) 0842 (Given - Provider: Ashley Barton, BOB)1237 (Not Given - Provider: Ashley Barton RN - Reason: Patient/family refused)1652 (Given - Provider: Ashley Barton, BOB)2017 (Given - Provider: Hazel Lawson RN) 0933 [...] Discontinued, Routine 1324 (Given - Provider: Ashley Barton, BOB)2020 (Given - Provider: Hazel Lawson RN) 0931 (Given - Provider: Mayelin Cote RN) Mometasone-Formoterol (Dulera MDI) 100-5 mcg/actuation inhaler 2 puff 2 puff, Inhalation, EVERY 12 HOURS SCHEDULED (2 times per day), First dose on Wed10/19/16 at 2100, Until Discontinued, Therapeutic interchange for fluticasone-vilanterol inhaler per [employer] policy Rinse mouth after administration. 0847 (Given - Provider: Milli Akhtar, BOB)1249 (AUG Hold - Provider: Admin Adt - Reason: Transfer to a Procedural area)2036 ([facility] Unhold - Provider: Admin Adt)2144 (Given - Provider: Hazel Lawson, BOB) 0843 (Given - Provider: Ashley Barton, BOB)2016 (Given - Provider: Hazel Lawson, BOB) 0933 (Given - Provider: Mayelin Cote, BOB) pantoprazole (PROTONIX) tablet 40 mg 40 mg, Oral, DAILY, First dose on Wed10/19/16 at 1830, Until Discontinued, DO NOT CRUSH OR OPEN, Routine 0845 (Given - Provider: Milli Akhtar RN)1249 (MAR Hold - Provider: Admin Adt - Reason: Transfer to a Procedural area)2036 ([facility] Unhold - Provider: Admin Adt) 0841 (Given - Provider: Ashley Barton, BOB) 0931 (Given - Provider: Mayelin Cote, BOB) sodium chloride 0.9 % flush 5 mL (CANCELED) 5 mL, Intravenous, 2 TIMES DAILY, First dose on Wed10/19/16 at 2100, Until Discontinued, Routine 0845 (Given - Provider: Milli Akhtar RN)1249 (MAR Hold - Provider: Admin Adt - Reason: Transfer to a Procedural area)2036 ([facility] Unhold - Provider: Admin Adt) Continuous Medication Order 10/20/2016 10/21/2016 10/22/2016 sodium chloride 0.9% infusion (CANCELED) 1,000 mL, at 100 mL/hr, Intravenous, CONTINUOUS, Starting on Wed10/19/16 at 1736, Until Wed10/20/16 at 1624 0850 (New Bag - Provider: Milli Akhtar RN)1249 ([facility] Hold - Provider: Admin Adt - Reason: Transfer to a Procedural area)1624 ([facility] Unhold - Provider: Admin Adt) sodium chloride 0.9% infusion (CANCELED) 75 mL/hr, Intravenous, CONTINUOUS, Starting on Wed10/20/16 at 1645, Until Wed10/21/16 at 0603 1639 (Restarted - Provider: Mary Harman, RN)2225 (New Bag - Provider: Hazel Lawson, RN) PRN Medication Order 10/20/2016 10/21/2016 10/22/2016 acetaminophen (TYLENOL) 650 mg/20.3 mL oral liquid 975 mg(Linked Group 1) 975 mg, Per G Tube, EVERY 6 HOURS PRN, Starting on Wed10/19/16 at 1804, Until [place] 10/22/16 at 1435, Pain, Fever, pain or temperature greater than 100 degrees F (measured by mouth), Routine 0845 (See Alternative - Provider: Milli Akhtar RN)1249 ([facility] Hold - Provider: Admin Adt - Reason: Transfer to a Procedural area)162 ([facility] Unhold - Provider: Mary Harman RN)1948 (See Alternative - Provider: Mary Frederick, BOB) [...] (See Alternative - Provider: Milli Akhtar RN)1249 ([facility] Hold - Provider: Admin Adt - Reason: Transfer to a Procedural area)1624 ([facility] Unhold - Provider: Mary Harman RN)1948 (See Alternative - Provider: Mary Frederick RN) 0524 (See Alternative - Provider: Hazel Lawson RN)1852 (See Alternative - Provider: Ashley Barton, BOB) 0117 (See Alternative - Provider: Hazel Lawson, BOB)0931 (See Alternative - Provider: Mayelin Cote, BOB) acetaminophen (TYLENOL) tablet 975 mg(Linked Group 1) 975 mg, Oral, EVERY 6 HOURS PRN, Starting on 10/19/16 at 1804, Until [place] 10/22/16 at 1435, Pain, Fever, pain or temperature greater than 100 degrees F (measured by mouth), Maximum dose of acetaminophen is 4000 mg from all sources in 24 hours., Routine 0845 (Given - Provider: Milli Akhtar, RN)1249 ([facility] Hold - Provider: Admin Adt - Reason: Transfer to a Procedural area)162 ([facility] Unhold - Provider: Mary Harman RN)194 (Given - Provider: Mary Frederick, BOB) 0524 (Given - Provider: Hazel Lawson, BOB)1852 (Given - Provider: Ashley Barton RN) 011 (Given - Provider: Hazel Lawson, BOB)0931 [...] - Reason: Transfer to a Procedural area)2036 ([facility] Unhold - Provider: Admin Adt) carboxymethylcellulose (REFRESH PLUS) 0.5 % ophthalmic drops 1 drop 1 drop, Both Eyes, 3 TIMES DAILY PRN, Starting on Wed10/19/16 at 2001, Until [place] 10/22/16 at 1435, Dry Eyes, or eye discomfort, Routine 1249 (AUG Hold - Provider: Admin Adt - Reason: Transfer to a Procedural area)2036 ([facility] Unhold - Provider: Admin Adt) gelatin adsorbable [...] ineffective documented in this encounter Care Teams Pre Billing Clinician Relationship Specialty Start Date End Date Nataliya Messina MD [address] [place] [address] [address] PCP - General 10/02/11 01/11/22 documented as of this encounter
--- OUTSIDE RECORDS SUMMARY | 2024-02-09 02:18 | XMS_ITS | Encounter Summary ---
[place] [address] Care Team Providers Care Emergency Man Name Role Phone Nataliya Messina MD Primary Care Provider [phone] Reason for Visit * Reason Onset Date Comments Follow-up 10/27/2016 7 day follow up call Encounter Details Date Type Department Care Team (Late st Contact Info) Description 10/27/2016 [place]phone [place] [phone] Isabella Tolbert RN Follow-up (7 day follow [...] 11/19/2016 1:30 PM Anshu Maciel MD Neurology [phone] 1- Medication review. New Medications ? Dose [...] since discharge ??? Name of the agency? [facility] PHONE: [phone] FAX: [phone] ??? Offer referral for therapy in a [...] shows any of these symptoms, immediately call or emergency medical services. documented in this encounter Plan of Treatment Upcoming Encounters Date Type Department Care Team (Late st Contact Info) Description 03/28/2024 10:00 AM EDT Office Visit Hematology/Oncology at [address] [phone] Heber Phillips MD [facility] DR HEMATOLOGY [place] [address] Isabella Baker APRN [facility] DR MEDICAL ONCOLOGY [place], [place] [id number] documented as of this encounter Visit Diagnoses Not on filedocumented in this encounter Care Teams Emergency Man Relationship Specialty Start Date End Date Nataliya Messina MD [address] [place] [address] [address] [place] [address] PCP - General 10/02/11 01/11/22 documented as of this encounter
--- OUTSIDE RECORDS SUMMARY | 2024-02-09 02:18 | XMS_ITS | Encounter Summary ---
Author Organization [facility] [place] [address] Care Team Providers Care Street Flusher Driver Name Role Phone Nataliya Messina MD Primary Care Provider [phone] Reason for Visit * Reason Comments Retinal Vein Occlusion Retinal Artery Oc clusion right eye Encounter Details Date Type Department Care Team (Late st Contact Info) Description 01/26/2017 11:00 AM EDT Office [place] [address] Gucci Rosas MD [facility] [place] [address] Central retinal artery occlusion of right eye [...] of this encounter Progress Notes * Gucci Rossa MD - 01/26/2017 11:00 AM EDT ASSESSMENT: [...] Peñaloza for updated MRx Follow up retina [facility] 9-12 months for DFE OU. If stable [...] AM EDT Office Visit Hematology/Oncology at [address] [phone] Heber Phillips MD [facility] DR HEMATOLOGY [place] [address] Isabella Baker APRN [facility] [place] [address] documented as of this encounter Procedures Procedure Name Priority Date/Time Associated Diagnosis Comments OCT RETINA - OU - BOTH EYES Routine 01/26/2017 1:00 PM EDT Central retinal artery occlusion of right eye FLUORESCEIN ANGIOGRAPHY - OU - BOTH EYES Routine 01/26/2017 1:00 PM EDT Central retinal artery occlusion of right eye documented in this encounter Results * OCT [id number] EYES (01/26/2017 1:00 PM EDT) Anatomical Region Laterality Modality Other Narrative 01/26/2017 1:00 PM EDT Right Eye Quality was good. Scan locations included subfoveal. Left Eye Quality was good. Scan locations included subfoveal. Findings include normal observations, normal foveal contour. Notes OD: Thinning Gucci Rosas MD OPHTHALMOLOGY [facility] ORDERABLES * FLUORESCEIN ANGIOGRAPHY - OU- BOTH [...] retina documented in this encounter Care Teams Street Flusher Driver Relationship Specialty Start Date End Date Nataliya Messina MD [address] [place] [address] PCP - General 10/02/11 01/11/22 documented as of this encounter
--- OUTSIDE RECORDS SUMMARY | 2024-02-09 02:18 | XMS_ITS | Encounter Summary ---
Author Organization [facility] Address [facility] [place] [address] Care Team Providers Care Glove Parts Inspector Name Role Phone Nataliya Messina MD Primary Care Provider [phone] Encounter Details Date Type Department Care Team (Late Contact Info) Description 12/17/2017 Telephone [place] [phone] Cady Petersen Social History Tobacco Use Types [...] EDT Requested Chest CT and CXR from [facility]. documented in this encounter Plan of Treatment Upcoming Encounters Date Type Department Care Team (Late st Contact Info) Description 03/28/2024 10:00 AM EDT Office Visit Hematology/Oncology at [address] [phone] Heber Phillips MD [facility] [address] [place] [address] Isabella Baker APRN [facility] [place] [address] documented as of this encounter Visit Diagnoses Not on filedocumented in this encounter Care Teams Glove Parts Inspector Relationship Specialty Start Date End Date Nataliya Messina MD [address] [place] [address] [address] [facility] [address] [place] [address] PCP - General 10/02/11 01/11/22 documented as of this encounter
--- OUTSIDE RECORDS SUMMARY | 2024-02-09 02:18 | XMS_ITS | Encounter Summary ---
[place] [address] Care Team Providers Care Patient Support Associate Name Role Phone Nataliya Messina MD Primary Care Provider [phone] Reason for Referral * Diagnostic Test (Routine) - Closed Specialty Diagnoses / Procedures Referred By Contac t Referred To Contact Radiology Diagnoses Mass of right lung Procedures PET CT [place] Standard Plus Head and Neck PET CT Standard Skull Base to Mid-Thigh Tim Rodríguez MD [facility] [place] [address] [place] [address] Referral ID Status Reason Start Date Expiration Date V isits Requested Visits Authorized [id number] Closed Specialty Service Requested 12/28/2017 12/28/2018 1 1 * Diagnostic Test (Routine) - Closed Specialty Diagnoses / Procedures Referred By Contac t Referred To Contact Radiology Diagnoses Pre-operative cardiovascular examination, high risk surgery Procedures NM Exercise Stress Myocardial Perfusion Balbina Cortes APRN [facility] C[place]IOTH[place] [address] [place] [address] Referral ID Status Reason Start Date Expiration Date V isits Requested Visits Authorized [id number] Closed Specialty Service Requested 12/28/2017 12/28/2018 4 4 * Diagnostic Test (Routine) - Specialty Diagnoses / Procedures Referred By Keven lozano Referred To Contact Radiology Diagnoses Pre-operative cardiovascular examination, high risk surgery Procedures NM Exercise Stress CT Component Balbina Cortes APRN [facility] DR C[place]IOTH[place]ACIC [place] [address] [place] [address] Referral ID Status Reason Start Date Expiration Date Visits Requested Visits Authorized [id number] Specialty Service Requested 12/28/2017 12/28/2018 1 1 Reason for Visit * Reason Comments Mass * Consultation (Urgent) - Closed Specialty Diagnoses / Procedures Referred By Keven lozano Referred To Contact Thoracic Surgery Diagnoses RIGHT UPPER LOBE MASS Naatliya Messina MD [address] [place] [address] Tim Rodríguez MD [facility] [place] [address] Referral ID Status Reason Start Date Expiration Date V isits Requested Visits Authorized [id number] Closed Consult, Test & Treat Connection Center 12/16/2017 12/16/2018 1 1 Encounter Details Date Type Department Care Team (Latest Contact Info) Description 12/28/2017 1:15 PM EDT Office Visit [place] [address] Tim Rodríguez MD [facility] [place] [address] Mass of right lung; Pre-operative cardiovascular examination, [...] Attending Outpatient Consultation Note Tim Rodríguez MD [place] [address] FAX: Date of Consultation: 01/05/2018 This consultation [...] radiating to right leg ??? Myocardial infarction ID about 6 years ago @ [facility]-has stents ??? PVD (peripheral vascular disease) 10/28/2011 [...] 21.16) performed by Lise Segura MD at [facility] MAIN OR Medications: Outpatient Prescriptions Marked [...] Social History Narrative Lives with his in [place], [place]. 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 [...] AM EDT Office Visit Hematology/Oncology at [address] [phone] Heber Phillips MD [facility] DR HEMATOLOGY [place] [address] Isabella Baker APRN [facility] [place] [address] documented as of this encounter Procedures Procedure [...] Mass of right lung COMPREHENSIVE METABOLIC PANEL Routine 12/28/2017 4:50 PM EDT Mass of right lung documented in this encounter Results * Cerebrovascular Duplex, Bilateral (01/03/2018 3:10 PM EDT) VB Text Report Department: Vascular Surgery Lab Patient: [id number] (BRITTA TILLMAN) CPT: 82896 ICD10: R91.8;Z01.810 Referring Physician: BALBINA CORTES ?? [...] Tino Gallardo at 01/03/2018 3:07 PM Balbina Martha Mat DONOR SERVICES MANAGER IMG NM ORDERABL ES * Nuclear Exercise Stress Cardiology (01/03/2018 1:12 PM EDT) Anatomical Region Laterality Modality Other Balbina Riosnin V DONOR SERVICES MANAGER CARDIAC SERVICE S ORDERABLES * NM Exercise [...] Anshu Fisher at 01/03/2018 3:09 PM Balbina Cortes V, DEVANTE IMG NM ORDERABL ES * Pulmonary Function [...] Rodríguez MD PFT ORDERABLES * PET CT [place] Standard Plus Head and Neck (12/31/2017 1:11 [...] metastatic disease TECHNIQUE: Following IV injection of 02-kstggq-4-deoxyglucose (FDG) a standard uptake of approximately 60 [...] metastatic disease TECHNIQUE: Following IV injection of 18-zzyqte-6-deoxyglucose (FDG) astandard uptake of approximately 60 minutes, [...] (Bezet) 431 ms MUSE SYSTEM Calculated P [place] 55 degrees MUSE SYSTEM Calculated R [place] 71 degrees MUSE SYSTEM Calculated T [place] 73 degrees MUSE SYSTEM INTERPRETATION Normal sinus [...] (ABNORMAL) Differential, Automated (12/28/2017 4:50 PM EDT) Neutrophil % 68.7 % [facility] Neutrophil Absolute 5.94 1.70 - 6.10 x10(3)/[facility] Lymph % 17.1 % [facility] Lymphocytes Abs 1.5 0.9 - 3.2 x10(3)/[facility] Monocyte % 11.2 % [facility] Monocyte Abs 1.0(H) 0.3 - 0.9 x10(3)/ L [facility] Eos % 1.3 % [facility] Eosinophils Abs 0.1 0.0 - 0.4 x10(3)/[facility] Basophil % 0.7 % [facility] Baso Absolute 0.1 0.0 - 0.1 x10(3)/[facility] Immature Gran % 1.00 % [facility] Comment: Immature granulocytes(IG's)percentage and absolute count will include metamyelocytes, myelocytes, and promyelocytes. Blood smears from CBCs yielding IG's will be scanned manually for concordance. If this scan disagrees with the automated IG or if promyelocytes are noted, a manual differential will be performed. Immature Gran Absolute 0.09(H) 0.00 - 0.04 x10(3)/ L [facility] Blood specimen (specimen) 12/28/2017 4:50 PM EDT 12/28/2017 5:26 PM EDT Narrative Resulting Agency Comment Spec In Lab Tim Rodríguez MD HEMATOLOGY ORDERABLE S [facility] [place] [address] * (ABNORMAL) Hemogram (12/28/2017 4:50 PM EDT) White Blood Cell 8.6 4.0 - 9.5 x10(3)/mc L [facility] Red Blood Cell 4.55(L) 4.58 - 5.54 x10(6)/mc L [facility] Hemoglobin 12.7(L) 13.7 - 16.5 gm/dL [facility] Hematocrit 39.1(L) 40.5 - 48.5 % [facility] Mean Cell Volume 85.9 82.9 - 93.1 [facility] Mean Cell Hemoglobin 27.9 27.5 - 32.1 pg [facility] Mean Cell Hemoglobin Concentration 32.5 32.0 - 35.7 gm/dL [facility] Platelet 491(H) 145 - 357 x10(3)/mc L [facility] RDW Standard Deviation 45.1(H) 36.0 - 45.0 [facility] RDW coefficient of variation 14.3(H) 11.4 - 13.8 % [facility] Mean Platelet Volume 8.8 7.6 - 12.9 [facility] NRBC% auto 0.0 % [facility] NRBC Absolute 0.000 0.000 - 0.000 x10(3)/mc L [facility] Blood specimen (specimen) 12/28/2017 4:50 PM EDT 12/28/2017 5:26 PM EDT Narrative Resulting Agency Comment Spec In Lab Tim Rodríguez MD HEMATOLOGY ORDERABLE S [facility] [place] [address] * (ABNORMAL) Comprehensive metabolic panel (non-fasting) (12/28/2017 4:50 PM EDT) Glucose 83 65 - 199 mg/dL [facility] Comment:Diabetes: >=200 mg/d L plus symptoms Blood Urea Nitrogen 28(H) 10 - 20 mg/dL [facility] Creatinine 1.11 0.80 - 1.50 mg/dL [facility] Sodium 137 135 - 145 mmol/L [facility] Potassium 4.2 3.5 - 5.0 mmol/L [facility] Comment: Please note: ??Patients with WBC >100,000 may have falsely elevated Potassium levels. ??For accurate Potassium quantification in these patients send serum separator tube (gold top) for subsequent determinations. ??Contact the Clinical Chemistry Laboratory if there are any questions. Chloride 97(L) 98 - 107 mmol/L [facility] Carbon Dioxide 23 22 - 31 mmol/L [facility] Anion Gap 17(H) 5 - 15 mmol/L [facility] Calcium 9.3 8.5 - 10.5 mg/dL [facility] Protein, Total 7.8 6.1 - 8.0 gm/dL [facility] Albumin 4.2 3.2 - 5.2 gm/dL [facility] Aspartate Aminotransferase 13 0 - 39 unit/L [facility] Alanine Aminotransferase 18 0 - 55 unit/L [facility] Alkaline Phosphatase 122(H) 40 - 120 unit/L [facility] Bilirubin, Total 0.2 0.2 - 1.3 mg/dL [facility] Est Glomerular Filtration Rate 70 >=60 mL/min/1. 73 m?? [facility] Comment: The eGFR was calculated using the CKD-EPI equation. As with all creatinine based estimates of kidney function, eGFR values calculated with the CKD-EPI equation are not accurate in patients with acute kidney failure, extremes of body mass or the acutely ill. [email or web address] [email or web address]/DHMCnkf eGFR 81 >=60 mL/min/1. 73 m?? [facility] Comment: The eGFR was calculated using the CKD-EPI equation. As with all creatinine based estimates of kidney function, eGFR values calculated with the CKD-EPI equation are not accurate in patients with acute kidney failure, extremes of body mass or the acutely ill. [email or web address] [email or web address] Blood specimen (specimen) 12/28/2017 4:50 PM EDT 12/28/2017 5:26 PM EDT Narrative Resulting Agency Comment Spec In Lab Tim Rodríguez MD CHEMISTRY ORDERABLES [facility] [place] [address] documented in this encounter Visit Diagnoses Diagnosis [...] examination documented in this encounter Care Teams Patient Support Associate Relationship Specialty Start Date End Date Nataliya Messina MD [address] [place] [address] PCP - General 10/02/11 01/11/22 documented as of this encounter
--- OUTSIDE RECORDS SUMMARY | 2024-02-09 02:18 | XMS_ITS | Encounter Summary ---
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 Language: Japanese Race: White Ethnicity: Not nor Admit date: [...] medication. He was last seen by his lawn and garden technician, Dr. Whitt, in April of 2016, at [...] or questions please call our office at [phone] DWAYNE Velazquez, agriculture intern Nurse Clinician For issues on weeknights after 5pm and weekends please call [phone] and ask for the Vascular Fellow operations coordinator. General Instructions None Future Appointments and Orders Future Appointments Provider Department Dept Phone 11/17/2016 10:30 AM Vianac Castillo [place] [facility] [phone] 11/17/2016 11:15 AM Lise Segura MD Vascular Surgery [phone] 11/19/2016 1:30 PM Anshu Michaud MD Neurology [phone] 01/26/2017 11:00 AM Gucci Rosas MD Ophthalmology [phone] Check-in: [facility] Area 4B. 05/20/2017 9:20 AM Lauri Winn Jr., MD Cardiology at [place] [phone] Future Orders Complete By Expires Carotid Duplex, Unilateral [VAS2 Custom] 11/21/2016 (Approximate) 10/22/2017 Process Instructions: There is no in-house vascular dentures lab technician available on weeknights (5pm-8am), weekends, or holidays. IF THIS IS A REQUEST FOR AN EMERGENT STUDY DURING THOSE HOURS, please have the senior provider responsible for the patient page the Vascular Surgery Fellow/Senior Resident operations coordinator to discuss options. Scheduling Instructions: Questions: Laterality: Right Lower limb right segments: Other Is there a stent?: No Indication for study/signs & symptoms: s/p right carotid endarterectomy Question to be answered: patency Which DH location will this be performed?: [place] Referral to Home Health - at DISCHARGE [[id number] CPT(R)] As directed Process Instructions: Scheduling Instructions: DOCUMENTATION FOR VNA SERVICES (INCLUDING THOSE PATIENTS WITH MEDICARE COVERAGE REQUIRING HOME VNA SERVICES AND/OR HOSPICE SERVICES) PATIENT'S LOCATION: Britta K[place] [address] (home) Cell: No relevant phone numbers on file. Balloon Artist's Name: Patient In discussion with the attending physician, it is certified that this patient is under their care and that they, or a Nurse Practitioner,Clinical Nurse specialist or Physician Civil Transportation Engineer who is working directly with them, had [...] re health issues HOME HEALTH CARE AGENCY: [facility] PHONE: [phone] FAX: [phone] Start of care: 24-48 hours of discharge Please note that any additional orders needs or changes will need to be obtained from this patient's PCP: Nataliya Messina MD [address] / [place] [address] All A agencies which cover the area of patient's residence have been reviewed, either verbally ruthy writing, and patient/family have chosen the home health care agency noted Questions: Agency name and contact information: [facility] Patient location post discharge: home What services are requested: Registered Nurse Start date: Responsible MD post discharge contact info: PCP Primary Care Provider: Nataliya Messina MD [address] / [place] [address] Discharge References/Attachments None documented in this encounter [...] or questions please call our office at [phone] DWAYNE Velazquez, agriculture intern Nurse Clinician For issues on weeknights after 5pm and weekends please call [phone] and ask for the Vascular Fellow operations coordinator. documented in this encounter Medications at Time [...] MSW - 10/22/2016 9:28 AM EDT The patient/uniforms sales representative has been provided a list [...] of discharge: 10/22. Referral routed to the Medical Receptionist Medical Assistant for matching with agency/vendor and to provide [...] L Elbow flexion 5/5 R, 5/5 L Telephone Lineworker LE: 5/5 R, 5/5 L Hip flexion [...] MD Neurology Resident PGY 3 Vascular Neurology 0873 Associated attestation - Denisse Sheffield MD - [...] 6:16 AM EDT Cardiac/Telemetry Nursing Progress Note [id number] Subjective: No events noted by RN, tele [...] ancef complete Tubes/Lines/Drains: PIVs Prophylaxis: Ambulatory Dispo: [facility] Enedelia balbuena 3040 10/21/2016 7:47 AM * [...] L Elbow flexion 5/5 R, 5/5 L Telephone Lineworker LE: 5/5 R, 5/5 L Hip flexion [...] -CUS -MRI brain wo contrast, MRA head/neck -PT/OT/FELT HAT MELLOWING MACHINE OPERATOR -follow up with ophthalmology-retinal specialist in [...] Cassia Howell MD Neurology Resident Vascular Neurology 1332 Associated attestation - Anshu Michaud MD - [...] and pt placed in for transportation to [facility]. * Lise Segura MD - 10/20/2016 [...] and plan. Please page Vascular Neurology at #[phone] with any questions. Pushpa Kearney APRN Personal Pager #[phone] [place] [address] * Ingrid Benjamin - 10/20/2016 7:58 AM EDT Vascular Surgery - Consult Note Patient Name: Britta Tillman : [id number] MR#: [id number] 10/19/2016 Hospital Day 1 day ID: Mr. [...] cells. Midline structures are unremarkable. ?? MRA saxman of Fair: The intracranial vessels are normal [...] benefits. For risks, I specifically cited stroke, AR, , CN injury, infection, bleeding and others. [...] his eye. Does haveheadache in the right judaism area this AM. Got tylenol. Medications: Scheduled [...] L Elbow flexion 5/5 R, 5/5 L Telephone Lineworker LE: 5/5 R, 5/5 L Hip flexion [...] -CUS -MRI brain wo contrast, MRA head/neck -PT/OT/FELT HAT MELLOWING MACHINE OPERATOR -follow up with ophthalmology-retinal specialist in [...] Cassia Howell MD Neurology Resident Vascular Neurology 8240 Associated attestation - Anshu Michaud, MD - [...] AM after presenting to his PCP. The qa architect, (Dr. Yao) evaluated the patient and performed [...] Social History Narrative Lives with his in [place], [place]. 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 Consider FELT HAT MELLOWING MACHINE OPERATOR consult for full evaluation and diet [...] of two midnights or is on the [facility] inpatient only procedure list (status C) [...] PM EDT Pt returned to room by CIRCULAR SAW EDGE FUSER about 1700, family @ his side. He has been seen by neurosurgery team, isaware he will be admitted to the floor. Call escobar in reach. * Bautista Coker RN - 10/19/2016 4:16 PM EDT To MRI by RN * Bautista Coker RN - 10/19/2016 3:36 PM EDT Pt has returned from vascular by operating room surgical technician. Family in room @ his side, [...] visual field is black. He presented to [facility] ED who transferred him to [facility] Ophthalmology. He was diagnosed with central retinal [...] recommendations Belen Garcia PGY-2 Emergency Medicine Pager: [phone] *This note was dictated with WebPT software. Belen Garcia MD Resident 10/20/16 0112 [...] Jessica Lopez - 10/20/2016 4:49 PM EDT [facility] Operative Note Patient Name: Britta Tillman : [id number] MR#: [id number] Case Date: 10/20/2016 ?? Surgeon: Surgeon(s) and Role: * Lsie Segura MD - Primary * Jessica Lopez [...] Implant Name Type Inv. Item Serial No. Parer Lot No. LRB No. Used Action PATCH,BIOL,XENOSURE,.8X8CM ([id number]) - [id number] IMPLANTS PATCH,BIOL,XENOSURE,.8X8CM ([id number]) ? [facility] [employer] - [id number] Right 1 Implanted ?? Infection Bundle used? [...] carotid artery in standard fashion. Using a Huguenot elevator, endarterectomy of the common carotid and [...] Operative Note Patient Name: Britta Tillman : [id number] MR#: [id number] Case Date: 10/20/2016 Surgeon: Surgeon(s) and Role: [...] Implant Name Type Inv. Item Serial No. Parer Lot No. LRB No. Used Action PATCH,BIOL,XENOSURE,.8X8CM ([id number]) - [id number] IMPLANTS PATCH,BIOL,XENOSURE,.8X8CM ([id number]) [employer] - [id number] Right 1 Implanted Infection Bundle used? N/A [...] none Primary Care Provider: Nataliya Messina MD [phone] Patient/Caregiver Goals of Treatment: survival Potential Needs [...] transition of care planning. SUNNI Cotter Pager: [phone] * Plan of Care - Laurie Napoles [...] this time in hospital course [ ] Half-Way Facility Goal: Fall Prevention-Safe Patient Handling Outcome: [...] Consult Note Patient Name: Britta Tillman : [id number] MR#: [id number] 10/19/2016 Hospital Day 0 days ID: We [...] medication. He was last seen by his lawn and garden technician, Dr. Whitt, in April of 2016, at [...] Social History Narrative Lives with his in [place], [place]. 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 Pt is on the cardiac cath lab radiology technologist showing a NSR. Respirations are regular. documented in this encounter Plan of Treatment Upcoming Encounters Date Type Department Care Team (Late st Contact Info) Description 03/28/2024 10:00 AM EDT Office Visit Hematology/Oncology at [address] [phone] Heber Phillips MD [facility] [place] [address] Isabella Baker APRN [facility] [place] [address] Scheduled Orders Name Type Priority Associated Diagnoses Orde r Schedule EKG 12 Lead ECG STAT Central artery occlusion of retina, right One Time for 1 Occurrences starting 10/19/2016 until 10/19/2016 documented as of this encounter Procedures Procedure Name Priority Date/Time Associated Diagnosis Comments PSYCHOMETRIC EXAMINER SCAN 10/23/2016 12:00 AM EDT TRANSCRANIAL DUPLEX [...] Text Report Department: Vascular Surgery Lab Patient: [id number] (BRITTA TILLMAN) CPT: 77876 ICD10: H34.11 Referring Physician: LISE SEGURA ?? [...] MD VASCULAR ORDERABLES VASCUBASE * SCAN DOC: PSYCHOMETRIC EXAMINER (10/23/2016 12:00 AM EDT) Anatomical Region Laterality Modality Other Narrative 10/23/2016 12:00 AM EDT Ordered by an unspecified provider. Scanning Provider MEDIA MGR SCAN EXT O RDR/RSLT * Transcranial Duplex, complete (10/21/2016 3:53 PM EDT) VB Text Report Department: Vascular Surgery Lab Patient: [id number] (BRITTA TILLMAN) CPT: 08757 ICD10: Z48.812;I65.21 Referring Physician: LISE SEGURA ?? [...] (Bezet) 466 ms MUSE SYSTEM Calculated P [place] 68 degrees MUSE SYSTEM Calculated R [place] 64 degrees MUSE SYSTEM Calculated T [place] 71 degrees MUSE SYSTEM INTERPRETATION Normal sinus [...] Text Report Department: Vascular Surgery Lab Patient: [id number] (BRITTA TILLMAN) CPT: 27301 ICD10: I65.21;H34.11 Referring Physician: ANSHU MICHAUD ?? [...] Roche ? (Age): 1955(61y) Med Rec#: ? [id number] ?Sex: ?M ? Site Loc: ? [facility] ?Ht / Wt: ??168(cm)/77(kg) Pt. Loc: ?Adult Floor ? BSA: ?1.87 Study Date: ?? 10/20/2016 ?Pt. Type: Inpatient Tape: ? Referring: JAVIER YAO M Referring: Lisa Ford Reading: Trevin Cook ([id number]) Green Building Materials Designer: Khadijah Mccabe Interpreting Fellow: Preethi Santana Diagnosis: *ICD-10-PCS Central retinal artery occlusion, right eye (H34.11) CPT Codes: *Echo Full (18310) *Spectral Doppler (67616) *Color Doppler (75798) BP: ? 126/67 SUMMARY: 1. The left [...] E-wave Vmax ?0.8 ?m/sec ? MV deceleration szrf599 ?msec ? MV A-wave Vmax ?0.6 ?m/sec [...] ? Mid-Inferior ?Normal ? Mid-Inferoseptal ?Normal ? [place]-Septal ? Normal ? [place]-Anterior ? Normal ? [place]-Lateral ?Normal ? [place]-Inferior ? Normal ? [place]-Tip ?Normal ? This report has been electronically signed by: Trevin Cook MD ? 10/20/2016 15:56:38 Images reviewed and interpretation verified [facility] Procedure Note Trevin Cook MD - 10/20/2016 Procedure: Transthoracic Echocardiogram Patient: CHRISTOPHE Roche (Age): 1955(61y) Med Rec#: [id number] Sex: M Site Loc: [facility] Ht / Wt: 168(cm)/77(kg) Pt. Loc: Adult Floor BSA: 1.87 Study Date: 10/20/2016 Pt. Type: Inpatient Tape: Referring: JAVIER YAO M Referring: Lisa Ford Reading: Trevin Cook ([id number]) Green Building Materials Designer: Khadijah Mccabe Interpreting Fellow: Preethi Santana Diagnosis: *ICD-10-PCS Central retinal artery occlusion, right eye (H34.11) CPT Codes: *Echo Full (53761) *Spectral Doppler (44678) *Color Doppler (97826) BP: 126/67 SUMMARY: 1. The left ventricular [...] MV E-wave Vmax 0.8 m/sec MV deceleration [id number] msec MV A-wave Vmax 0.6 m/sec MV [...] Normal Mid-Posterolateral Normal Mid-Inferior Normal Mid-Inferoseptal Normal [place]-Septal Normal [place]-Anterior Normal [place]-Lateral Normal [place]-Inferior Normal [place]-Tip Normal This report has been electronically signed by: Trevin Cook MD 10/20/2016 15:56:38 Images reviewed and interpretation verified [facility] Lisa Ford MD ECHO [...] residents interpretationand agree with the findings, Yehuda Gabbienabil at 10/20/2016 1:23 AM Lisa Ford MD [facility] MRI ORDERABLES * MRI Angiogram Head & MRI Brain wo Contrast (10/19/2016 4:55 PM EDT) Anatomical Region Laterality Modality Head Magnetic Resonan ce Impressions 10/19/2016 7:46 PM EDT No significant abnormalities. Narrative 10/19/2016 7:46 PM EDT EXAMINATION: MRI ANGIOGRAM HEAD & MRI BRAIN WO CONTRAST CLINICAL HISTORY: Central retinal artery occlusion right eye TECHNIQUE: Brain MRI and MRA saxman of Fair without contrast. Routine protocol. COMPARISON: [...] air cells. Midline structures are unremarkable. MRA saxman of Fair: The intracranial vessels are normal course and caliber without focal stenoses or aneurysms. Proximal ophthalmic arteries are patent. Procedure Note Kingsley Romero MD - 10/19/2016 EXAMINATION: MRI ANGIOGRAM HEAD & MRI BRAIN WO CONTRAST CLINICAL HISTORY: Central retinal artery occlusion right eye TECHNIQUE: Brain MRI and MRA saxman of Fair without contrast. Routine protocol. COMPARISON: [...] air cells. Midline structures are unremarkable. MRA saxman of Fair: The intracranial vessels are normal course andcaliber without focal stenoses or aneurysms. Proximal ophthalmic arteries arepatent. IMPRESSION No significant abnormalities. Lisa STRANGE MRI ORDERABLES * EKG 12 Lead (10/19/2016 3:59 PM EDT) Ventricular rate 67 BPM MUSE SYSTEM Atrial Rate 67 BPM MUSE SYSTEM P-R Interval 146 ms MUSE SYSTEM QRS Duration 82 ms MUSE SYSTEM Q-T Interval 424 ms MUSE SYSTEM QTC Calculated (Bezet) 448 ms MUSE SYSTEM Calculated P [place] 54 degrees MUSE SYSTEM Calculated R [place] 60 degrees MUSE SYSTEM Calculated T [place] 67 degrees MUSE SYSTEM INTERPRETATION Normal sinus rhythm Normal ECG When compared with ECG of 20-AUG-2014 10:22, No significant change was found Confirmed by MD HEIDI, STEFAN ([id number]) on 10/20/2016 7:51:28 AM MUSE SYSTEM 10/19/2016 3:59 PM EDT 10/20/2016 7:51 AM EDT Lisa Ford MD ECG ORDERABLES MUSE SYSTEM * (ABNORMAL) Differential, Automated (10/19/2016 3:10 PM EDT) Neutrophil % 68.5 % [facility] Neutrophil Absolute 6.86(H) 1.70 - 6.10 x10(3)/mc L [facility] Lymph % 17.5 % [facility] Lymphocytes Abs 1.8 0.9 - 3.2 x10(3)/mc L [facility] Monocyte % 10.0 % [facility] Monocyte Abs 1.0(H) 0.3 - 0.9 x10(3)/mc L [facility] Eos % 2.1 % [facility] Eosinophils Abs 0.2 0.0 - 0.4 x10(3)/mc L [facility] Basophil % 0.6 % [facility] Baso Absolute 0.1 0.0 - 0.1 x10(3)/mc L [facility] Immature Gran % 1.30 % [facility] Comment: Immature granulocytes(IG's)percentage and absolute count will include metamyelocytes, myelocytes, and promyelocytes. Blood smears from CBCs yielding IG's will be scanned manually for concordance. If this scan disagrees with the automated IG or if promyelocytes are noted, a manual differential will be performed. Immature Gran Absolute 0.13(H) 0.00 - 0.04 x10(3)/mc L [facility] Blood specimen (specimen) 10/19/2016 3:10 PM EDT 10/19/2016 3:18 PM EDT Narrative Resulting Agency Comment Spec In Lab Lisa Ford MD HEMATOLOGY ORDERABLE S [facility] [place] [address] * (ABNORMAL) Hemogram (10/19/2016 3:10 PM EDT) White Blood Cell 10.0(H) 4.0 - 9.5 x10(3)/mc L [facility] Red Blood Cell 4.86 4.58 - 5.54 x10(6)/mc L [facility] Hemoglobin 13.7 13.7 - 16.5 gm/dL [facility] Hematocrit 41.3 40.5 - 48.5 % [facility] Mean Cell Volume 85.0 82.9 - 93.1 fL [facility] Mean Cell Hemoglobin 28.2 27.5 - 32.1 pg [facility] Mean Cell Hemoglobin Concentration 33.2 32.0 - 35.7 gm/dL [facility] Platelet 498(H) 145 - 357 x10(3)/mc L [facility] RDW Standard Deviation 44.1 36.0 - 45.0 [facility] RDW coefficient of variation 14.4(H) 11.4 - 13.8 % [facility] Mean Platelet Volume 9.5 7.6 - 12.9 [facility] NRBC% auto 0.0 % [facility] NRBC Absolute 0.000 0.000 - 0.000 x10(3)/mc L [facility] Blood specimen (specimen) 10/19/2016 3:10 PM EDT 10/19/2016 3:18 PM EDT Narrative Resulting Agency Comment Spec In Lab Lisa Ford MD HEMATOLOGY ORDERABLE S [facility] [place] [address] * (ABNORMAL) Hemoglobin A1c (10/19/2016 3:10 PM EDT) Hemoglobin A1c 5.8(H) 4.3 - 5.6 % [facility] Comment: Reference Range: 4.3 - [...] Mellitus, Diabetes Care 2013; 36: Suppl. 1, S67-39 Estimated Average Glucose 120 mg/dL [facility] Comment: eAG equivalents for HbA1c percentages: HbA1c(%) ?eAG(mg/dL) 6.0 ?126 6.5 ?140 7.0 ?154 7.5 ?169 8.0 ?183 8.5 ?197 9.0 ?212 9.5 ?226 10.0 ? 240 Limitations: The eAG calculation has not been validated on women, individuals below 18 years old and above 70 years old, and individuals with hemoglobinopathies. Additional resources are available on the ADA website: http://VocoMD.com/DHMCadacalc Fahad PENA, Marcello J, Veronique R, et al. ??Translating the A1C assay into estimated average glucose values. ??Diabetes Care 2008:31(8):0475-2175. Blood specimen (specimen) 10/19/2016 3:10 PM EDT 10/19/2016 3:18 PM EDT Narrative Resulting Agency Comment Spec In Lab Lisa Ford MD CHEMISTRY ORDERABLES [facility] [place] [address] * (ABNORMAL) Lipid Panel (10/19/2016 3:10 PM EDT) Cholesterol, Total 127 <=239 mg/dL [facility] Triglyceride 166 <=199 mg/dL [facility] HDL Cholesterol 31(L) >=40 mg/dL [facility] LDL Cholesterol 63 <=190 mg/dL [facility] Cholesterol/HDL Ratio 4.1 ratio [facility] Lipid Interpretation See Note [facility] Comment: Lipid management should be guided by a patient? s ASCVD risk, goals and preferences. ACC/AHA Guidelines recommend high intensity statin if clinical ASCVD or LDL greater than or equal to 190 mg/dL. http://circ.ahajournals.org/content/early/.cir.9162848709.65376.7a Adults aged 40-75 with LDL 70-189 mg/dL should have their 10 year ASCVD risk estimated with the ACC/AHA ASCVD risk public works inspector http://tools.acc.org/SYMTI-Ujpx-Uqiwofofb/ Statin should be discussed if risk greater [...] Ford MD CHEMISTRY ORDERABLES Performing Organization Address [facility] de Phone Number [facility] [place] [address] * APTT (10/19/2016 3:10 PM EDT) Partial Thromboplastin Time 29 25 - 35 sec [facility] Comment: The recommended therapeutic range for full dose, unfractionated heparin at [facility] is 80 ? 114 seconds. The use of the anti-Xa (heparin) level rather than the PTT is recommended for monitoring anticoagulation intensity in critically ill patients receiving unfractionated heparin by continuous IV infusion. Blood specimen (specimen) 10/19/2016 3:10 PM EDT 10/19/2016 3:18 PM EDT Narrative Resulting Agency Comment Spec In Lab Lisa Ford MD HEMATOLOGY ORDERABLE S Performing Organization Address [facility] de Phone Number [facility] [place] [address] * Prothrombin Time (10/19/2016 3:10 PM EDT) Prothrombin Time 12.9 12.0 - 15.0 sec [facility] Comment: An INR <2.0 indicates [...] International Normalization Ratio 0.9 0.9 - 1.1 [facility] Blood specimen (specimen) 10/19/2016 3:10 PM EDT 10/19/2016 3:18 PM EDT Narrative Resulting Agency Comment Spec In Lab Lisa Ford MD HEMATOLOGY ORDERABLE S Performing Organization Address City/[facility]/ZIP Co de Phone Number [facility] [place] [address] * (ABNORMAL) Sedimentation rate (10/19/2016 3:10 PM EDT) Sedimentation Rate Automated 18(H) 0 - 15 mm/hr [facility] Blood specimen (specimen) 10/19/2016 3:10 PM EDT 10/19/2016 3:18 PM EDT Narrative Resulting Agency Comment Spec In Lab Lisa Ford MD HEMATOLOGY ORDERABLE S Performing Organization Address [facility] Co de Phone Number [facility] [place] [address] * (ABNORMAL) Hepatic Function Panel (10/19/2016 3:10 PM EDT) Protein, Total 8.1(H) 6.1 - 8.0 gm/dL [facility] Albumin 4.7 3.2 - 5.2 gm/dL [facility] Aspartate Aminotransferase 22 0 - 39 unit/L [facility] Alanine Aminotransferase 29 0 - 55 unit/L [facility] Alkaline Phosphatase 110 40 - 120 unit/L [facility] Bilirubin, Total 0.2 0.2 - 1.3 mg/dL [facility] Bilirubin, Direct <0.1 0.0 - 0.3 mg/dL [facility] Blood specimen (specimen) 10/19/2016 3:10 PM EDT 10/19/2016 3:18 PM EDT Narrative Resulting Agency Comment Spec In Lab Lisa Ford MD CHEMISTRY ORDERABLES Performing Organization Address [facility] Co de Phone Number [facility] [place] [address] * (ABNORMAL) Basic Metabolic Panel (non-fasting) (10/19/2016 3:10 PM EDT) Glucose 95 65 - 199 mg/dL [facility] Comment:Diabetes: >=200 mg/d L plus symptoms Blood Urea Nitrogen 17 10 - 20 mg/dL [facility] Creatinine 1.06 0.80 - 1.50 mg/dL [facility] Comment: Please note that the pediatric reference intervals supplied above were not validated at [facility]. Results from pediatric patients should be interpreted in conjunction to the patient's age, height and muscle mass. Sodium 141 135 - 145 mmol/L [facility] Potassium 3.8 3.5 - 5.0 mmol/L [facility] Comment: Please note: ??Patients with WBC >100,000 may have falsely elevated Potassium levels. ??For accurate Potassium quantification in these patients send serum separator tube (gold top) for subsequent determinations. ??Contact the Clinical Chemistry Laboratory if there are any questions. Chloride 98 98 - 107 mmol/L [facility] Carbon Dioxide 23 22 - 31 mmol/L [facility] Anion Gap 20(H) 5 - 15 mmol/L [facility] Calcium 9.8 8.5 - 10.5 mg/dL [facility] Est Glomerular Filtration Rate >60 >=60 [facility] Comment: This estimated GFR (eGFR) [...] the following links into your internet browser. [email or web address] Blood specimen (specimen) 10/19/2016 3:10 PM EDT 10/19/2016 3:18 PM EDT Narrative Resulting Agency Comment Spec In Lab iLsa Ford MD CHEMISTRY ORDERABLES [facility] [place] [address] * CT Head wo Contrast (Generic) (10/19/2016 [...] Text Report Department: Vascular Surgery Lab Patient: [id number] (BRITTA TILLMAN) CPT: 54347 ICD10: I65.23 Referring Physician: LISA FORD ?? [...] dose on Wed10/19/16 at 2100, Until Discontinued, [place] teeth every 12 hours, Routine Given 10/22/2016 [...] area)2036 (MAR Unhold - Provider: Admin Adt) 0841 (Given - Provider: Ashley Barton, RN) 0931 (Given - Provider: Mayelin Cote, RN) atorvastatin (LIPITOR) tablet 80 mg 80 mg, Oral, DAILY WITH DINNER, First dose on Wed10/19/16 at 1930, Until Discontinued, Routine 1249 (AUG Hold - Provider: Admin Adt - Reason: Transfer to a Procedural area)1700 (Automatically Held - Provider: Admin Adt)2036 (AUG Unhold - Provider: Admin Adt) 165 (Given - Provider: Ashley Barton, RN) ceFAZolin (ANCEF) 2g in dextrose 5% 100 [...] dose on Wed10/19/16 at 2100, Until Discontinued, [place] teeth every 12 hours, Routine 0844 (Not Given - Provider: Milli Akhtar RN - Reason: Patient/family refused)1249 (AUG Hold - Provider: Admin Adt - Reason: Transfer to a Procedural area)2036 (AUG Unhold - Provider: Admin Adt)214 (Given - Provider: Hazel Lawson, BOB) 0843 (Given - Provider: Ashley Barton, BOB)2018 (Given - Provider: Hazel Lawson, BOB) 0933 [...] BOB) 0931 (Given - Provider: Mayelin Cote, RN) docusate sodium (COLACE) capsule 100 mg 100 mg, Oral, 2 TIMES DAILY, First dose on Wed10/19/16 at 2100, Until Discontinued, Routine 0845 (Given - Provider: Milli Akhtar, BOB)1249 (MAR Hold - Provider: Admin Adt - [...] - Reason: Transfer to a Procedural area)2036 ([facility] Unhold - Provider: Admin Adt) hydroCHLOROthiazide (HYDRODIURIL) [...] area)1300 (Automatically Held - Provider: Admin Adt)1624 ([facility] Unhold - Provider: Mary L Vincent, RN)1700 (Due - Provider: Mary Harman RN)2145 (Given - Provider: Hazel Lawson RN) 0842 (Given - Provider: Ashley Barton RN)1237 (Not Given - Provider: Ashley Barton RN [...] 1730, Routine 1651 (Given - Provider: Ashley Barton RN) lisinopril (PRINIVIL;ZESTRIL) tablet 20 mg 20 mg, Oral, DAILY, First dose (after last modification) on Wed10/22/16 at 0900, Until Discontinued, Routine 0931 (Given - Provider: Mayelin Cote, BOB) meTOPROLOL succinate (TOPROL-XL) XL tablet 25 mg (CANCELED) 25 mg, Oral, DAILY, First dose on Wed10/19/16 at 1930, Until Discontinued, DO NOT CRUSH OR OPEN, Routine 0844 (Given - Provider: Milli Akhtar RN)1249 (MAR Hold - Provider: Admin Adt - Reason: Transfer to a Procedural area)2036 (MAR Unhold - Provider: Admin Adt) meTOPROLOL succinate [...] Routine 1324 (Given - Provider: Ashley Barton, BOB)2019 (Given - Provider: Hazel Lawson RN) 0931 [...] 0931 (Given - Provider: Mayelin Cote RN) sodium chloride 0.9 % flush 5 mL (CANCELED) 5 mL, Intravenous, 2 TIMES DAILY, First dose on Wed10/19/16 at 2100, Until Discontinued, Routine 0845 (Given - Provider: Milli Akhtar RN)1249 ([facility] Hold - Provider: Admin Adt - Reason: Transfer to a Procedural area)203 ([facility] Unhold - Provider: Admin Adt) Continuous Medication Order 10/20/2016 10/21/2016 10/22/2016 sodium chloride 0.9% infusion (CANCELED) 1,000 mL, at 100 mL/hr, Intravenous, CONTINUOUS, Starting on Wed10/19/16 at 1736, Until Wed10/20/16 at 1624 0850 (New Bag - Provider: Milli Akhtar RN)1249 ([facility] Hold - Provider: Admin Adt - Reason: Transfer to a Procedural area)162 ([facility] Unhold - Provider: Admin Adt) sodium chloride 0.9% infusion (CANCELED) 75 mL/hr, Intravenous, CONTINUOUS, Starting on Wed10/20/16 at 1645, Until Wed10/21/16 at 0603 1639 (Restarted - Provider: Mary Harman RN)2225 (New Bag - Provider: Hazel Lawson, BOB) [...] (See Alternative - Provider: Milli Akhtar, BOB)1249 ([facility] Hold - Provider: Admin Adt - Reason: Transfer to a Procedural area)1624 ([facility] Unhold - Provider: Mary Harman RN)1948 (See Alternative - Provider: Mary Frederick RN) 0524 (See Alternative - Provider: Hazel Lawson, BOB)1852 (See Alternative - Provider: Ashley Barton RN) 0117 (See Alternative - Provider: Hazel Lawson RN)0931 (See Alternative - Provider: Mayelin Cote, BOB) acetaminophen (TYLENOL) suppository 975 mg(Linked Group 1) 975 mg, Rectal, EVERY 6 HOURS PRN, Starting on 10/19/16 at 1804, Until Federica 10/22/16 at 1435, Pain, Fever, pain or temperature greater than 100 degrees F (measured by mouth), Maximum dose of acetaminophen is 4000 mg from all sources in 24 hours., Routine 0845 (See Alternative - Provider: Milil Akhtar RN)1249 (AUG Hold - Provider: Admin Adt - Reason: Transfer to a Procedural area)1624 (AUG Unhold - Provider: Mary Harman RN)194 (See Alternative - Provider: Mary Frederick RN) 05 (See Alternative - Provider: Hazel Lawson RN)185 (See Alternative - Provider: Ashley Barton RN) 011 (See Alternative - Provider: Hazel Lawson RN)0931 (See Alternative - Provider: Mayelin Cote RN) acetaminophen (TYLENOL) tablet 975 mg(Linked Group 1) [...] - Reason: Transfer to a Procedural area)1624 ([facility] Unhold - Provider: Mary Harman RN)194 (Given - Provider: Mary Frederick RN) 0524 (Given - Provider: Hazel Lawson RN)185 (Given - Provider: Ashley Barton, BOB) 011 (Given - Provider: Hazel Lawson RN)0931 (Given - Provider: Mayelin Cote, BOB) bisacodyl [...] or milk of magnesia not sufficient., Routine 124 (AUG Hold - Provider: Admin Adt - Reason: Transfer to a Procedural area)2036 ([facility] Unhold - Provider: Admin Adt) carboxymethylcellulose (REFRESH PLUS) 0.5 % ophthalmic drops 1 drop 1 drop, Both Eyes, 3 TIMES DAILY PRN, Starting on Wed10/19/16 at 2001, Until Federica 10/22/16 at 1435, Dry Eyes, or eye discomfort, Routine 124 (AUG Hold - Provider: Admin Adt - [...] goal., Routine 1321 (Given - Provider: Ashley Barton RN) labetalol (NORMODYNE,TRANDATE) injection 10 mg 10 mg, [...] ineffective documented in this encounter Care Teams Paralegal Relationship Specialty Start Date End Date Nataliya Messina MD [address] [place] [address] [address] [facility] [address] [place] [address] PCP - General 10/02/11 01/11/22 documented as of this encounter
--- OUTSIDE RECORDS SUMMARY | 2024-02-09 02:18 | XMS_ITS | Encounter Summary ---
Author Organization [facility] Address [facility] [place] [address] Care Team Providers Care Checker/Stocker Name Role Phone Nataliya Messina MD Primary Care Provider [phone] Reason for Visit * Reason Comments Follow-up Encounter Details Date Type Department Care Team (Late st Contact Info) Description 11/17/2016 11:15 AM EDT Office [place] [address] Omero Wills MD [facility] [place] [address] Central artery occlusion of retina, right; S/P [...] Still on Plavix,apparently for his coronary stent. [facility]: He stopped smoking 3 years ago after [...] AM EDT Office Visit Hematology/Oncology at [address] [address] Heber Phillips MD [facility] DR HEMATOLOGY [place] [address] Isabella Baker APRN [facility] [place] [address] documented as of this encounter Visit Diagnoses Diagnosis Central artery occlusion of retina, right S/P carotid endarterectomy Other postprocedural status PVD (peripheral vascular disease) Peripheral vascular disease, unspecified documented in this encounter Care Teams Checker/Stocker Relationship Specialty Start Date End Date Nataliya Messina MD [address] [place] [address] PCP - General 10/02/11 01/11/22 documented as of this encounter
--- OUTSIDE RECORDS SUMMARY | 2024-02-09 02:18 | XMS_ITS | Encounter Summary ---
[place] [address] Care Team Providers Care Narrow Gauge Engineer Name Role Phone Nataliya Messina MD Primary Care Provider [phone] Encounter Details Date Type Department Care Team (Latest Contact Info) Description 11/17/2016 10:23 AM EDT - 11/17/2016 11:59 PM EDT Hospital Encounter [place] [address] Vianca Castillo [place] Central artery occlusion of [...] AM EDT Office Visit Hematology/Oncology at [address] [address] Heber Phillips MD [facility] DR [place] [address] Isabella Baker APRN [facility] [place] [address] documented as of this encounter Procedures Procedure Name Priority Date/Time Associated Diagnosis Comments CAROTID DUPLEX, UNILATERAL Routine 11/17/2016 10:34 AM EDT Central artery occlusion of retina, right documented in this encounter Results * Carotid Duplex, Unilateral (11/17/2016 10:34 AM EDT) VB Text Report Department: Vascular Surgery Lab Patient: [id number] (BRITTA SAEED) CPT: 46175 ICD10: H34.11 Referring Physician: LISE SEGURA ?? [...] right documented in this encounter Care Teams Narrow Gauge Engineer Relationship Specialty Start Date End Date Nataliya Messina MD [address] [place] [address] PCP - General 10/02/11 01/11/22 documented as of this encounter
--- OUTSIDE RECORDS SUMMARY | 2024-02-09 02:18 | XMS_ITS | Encounter Summary ---
Author [place] [address] Care Team Providers Care Core Driller Helper Name Role Phone Nataliya Messina MD Primary Care Provider [phone] Reason for Visit * Auth/Cert Specialty Diagnoses [...] PM EDT Anesthesia Event [place] [phone] Bi Salas MD [facility] [place] [address] Anesthesia Record Procedure Summary Procedure Name Responsible [...] cephalic vein (lateral side of arm), right; kicn-yfg-ycwwas catheter system; 18 gauge; bautista vasquez; no [...] 10/20/16; Removal Time: 1559 10/20/16 1323 by Yancik Bray MD 10/20/16 1559 by Yanick Bray [...] Alvarez RN 10/20/16 2335 by Hien Xie, DIAMOND FINISHING SUPERVISOR Incision 10/20/16; 1352; neck (carotid); 02/16/22 (LDA [...] Yanick Bray - 10/20/2016 5:30 PM EDT [facility] Department of Anesthesiology Post-procedure Note Patient: Hieu Tillman Procedure Summary Date Anesthesia Start Anesthesia Stop Room / Location 10/20/16 1306 1622 [facility] OR 14 / [facility] Procedure Diagnosis Surgeon Responsible Provider @ENDARTERECTOMY, CAROTID, VERTEBRAL,SUBCLAVIAN W\WO PATCH GRAFT (WRVU 21.16) (Right Neck) (right carotid stenosis, symptomatic) Omero Wills MD Cotoi, Daniel, MD All Anesthesia Providers: Anesthesiologist: Bi Salas MD Pay Clerk: Yanick Bray MD Last (1hr) Vitals: BP 130/64 (10/20/16 1700) Temp Pulse 78 (10/20/16 1715) Resp 14 (10/20/16 1715) SpO2 92 % (10/20/16 1715) Patient Location: PACU/[facility] Level of Consciousness: Awake and Alert Pain [...] AM EDT Office Visit Hematology/Oncology at [address] [address] Heber Phillips MD [facility] DR HEMATOLOGY [place] [address] Isabella Baker APRN [facility] [place] [address] documented as of this encounter Visit Diagnoses [...] PRN, Starting on Wed10/20/16 at 1340, Until Wed10/20/16 at 1622, Anesthesia Intra-op, Routine [...] mg documented in this encounter Care Teams Core Driller Helper Relationship Specialty Start Date End Date Nataliya Messina MD [address] [place] [address] [address] [place] [address] PCP - General 10/02/11 01/11/22 documented as of this encounter
--- OUTSIDE RECORDS SUMMARY | 2024-02-09 02:18 | XMS_ITS | Encounter Summary ---
Author Organization [facility] [place] [address] Care Team Providers Care Crate Tier Name Role Phone Nataliya Messina MD Primary Care Provider [phone] Encounter Details Date Type Department Care Team (Late st Contact Info) Description 01/28/2017 Telephone [place] [phone] Isabella Tolbert RN Social History Tobacco Use [...] called [facility] or urgent [facility], [...] AM EDT Office Visit Hematology/Oncology at [address] [address] Heber Phillips MD [facility] DR [place] [address] Isabella Baker APRN [facility] [place] [address] documented as of this encounter Visit Diagnoses Not on filedocumented in this encounter Care Teams Crate Tier Relationship Specialty Start Date End Date Nataliya Messina MD [address] [facility] [address] [place], [place] [address] PCP - General 10/02/11 01/11/22 documented as of this encounter
--- OUTSIDE RECORDS SUMMARY | 2024-02-09 02:18 | XMS_ITS | Encounter Summary ---
Author Organization [facility] [place] [address] Care Team Providers Care Distillery Laborer Name Role Phone Nataliya Messina MD Primary Care Provider [phone] Reason for Visit * Auth/Cert Specialty Diagnoses [...] PM EDT Hospital En[place] [address] Omero Jorg[place], [place] Discharge Disposition: Home Social [...] AM EDT Office Visit Hematology/Oncology at [address] [address] Heber Phillips MD [facility] [address] [place] [address] Isabella Baker APRN [facility] [place] [address] documented as of this encounter Visit Diagnoses Not on filedocumented in this encounter Care Teams Distillery Laborer Relationship Specialty Start Date End Date Nataliya Messina MD [address] [place], [place] [address] [place], [place] [address] PCP - General 10/02/11 01/11/22 documented as of this encounter
--- OUTSIDE RECORDS SUMMARY | 2024-02-09 02:18 | XMS_ITS | Encounter Summary ---
Author Organization [facility] Address [facility] [place] [address] Care Team Providers Care Manager Regulatory Name Role Phone Nataliya Messina MD Primary Care Provider [phone] Reason for Visit * Reason Onset Date Comments Follow-up 01/27/2017 Encounter Details Date Type Department Care Team (Late st Contact Info) Description 01/27/2017 [place] [phone] Gucci Rosas MD [facility] [place] [address] Follow-up Social History Tobacco Use Types Packs/Day [...] into the system * Telephone Encounter - Anitha Glass - 02/01/2017 3:34 PM EDT I have called & left a 2nd message for the patient to call back & schedule. * Telephone Encounter - Anitha Glass - 01/27/2017 2:44 PM EDT I have called and left a message for patient to call and schedule an appointment. Follow up retina [facility] 9-12 months for DFE OU. documented in this encounter Plan of Treatment Upcoming Encounters Date Type Department Care Team (Late st Contact Info) Description 03/28/2024 10:00 AM EDT Office Visit Hematology/Oncology at [address] [phone] Heber Phillips MD [facility] [place] [address] Isabella Baker APRN [facility] [place] [address] documented as of this encounter Visit Diagnoses Not on filedocumented in this encounter Care Teams Manager Regulatory Relationship Specialty Start Date End Date Nataliya Messina MD [address] [place] [address] PCP - General 10/02/11 01/11/22 documented as of this encounter
--- OUTSIDE RECORDS SUMMARY | 2024-02-09 02:18 | XMS_ITS | Encounter Summary ---
Author Organization [facility] [place] [address] Care Team Providers Care Clinic Director Name Role Phone Nataliya Messina MD Primary Care Provider [phone] Reason for Visit * Reason Onset Date Comments Other 09/27/2017 Study Follow Up Encounter Details Date Type Department Care Team (Late st Contact Info) Description 09/27/2017 Telephone Cardiology at [address] [phone] Kimmie Leyva Other (Study Follow Up) Social [...] AM EDT Office Visit Hematology/Oncology at [address] [address] Heber Phillips MD [facility] DR [place]OLOG[place] [address] Isabella Baker APRN [facility] [place] [address] documented as of this encounter Visit Diagnoses Not on filedocumented in this encounter Care Teams Clinic Director Relationship Specialty Start Date End Date Nataliya Messina MD [address] [place] [address] [address] [place] [address] PCP - General 10/02/11 01/11/22 documented as of this encounter
--- OUTSIDE RECORDS SUMMARY | 2024-02-09 02:18 | XMS_ITS | Encounter Summary ---
Author Organization [facility] Address [facility] [address] Care Team Providers Care Rn Acls Name Role Phone Nataliya Messina MD Primary Care Provider [phone] Encounter Details Date Type Department Care Team (Late st Contact Info) Description 11/19/2016 1:30 PM EDT [place] [phone] Anshu Maciel MD [facility] [place] [address] CRAO (central retinal artery occlusion), right; Stenosis [...] Disease and Stroke Program Department of Neurology [facility] [place] [address] t: [phone] / f: [phone] Date of Appointment: 11/19/2016 Patient: Hieu Tillman This 61 y.o. is re-evaluated because of a right CRAO and carotid stenosis s/p CEA 10/21. Admitted 10/19-10/22 after presenting to [facility] and sent urgently to ophthalmology. Saw [...] distances but driving without difficulty otherwise. Modified [place] Scale (MRS) 0: No symptoms at all [...] AM EDT Office Visit Hematology/Oncology at [address] [phone] Heber Phillips MD [facility] [address] [place] [address] Isabella Baker APRN [facility] [place] [address] documented as of this encounter Visit Diagnoses Diagnosis CRAO (central retinal artery occlusion), right Stenosis of carotid artery, unspecified laterality documented in this encounter Care Teams Rn Acls Relationship Specialty Start Date End Date Nataliya Messina MD [address] [place] [address] PCP - General 10/02/11 01/11/22 documented as of this encounter
--- OUTSIDE RECORDS SUMMARY | 2024-02-09 02:18 | XMS_ITS | Encounter Summary ---
[place] [address] Care Team Providers Care End Lathe Operator Name Role Phone Nataliya Messina MD Primary Care Provider [phone] Encounter Details Date Type Department Care Team (Late Contact Info) Description 12/02/2016 Orders [place] [phone] Remi Teixeira RN Bilateral carotid artery stenosis; [...] AM EDT Office Visit Hematology/Oncology at [address] [phone] Heber Phillips MD [facility] DR [place] [address] Isabella Baker APRN [facility] [place] [address] documented as of this encounter Visit Diagnoses Diagnosis Bilateral carotid artery stenosis Occlusion and stenosis of multiple and bilateral precerebral arteries without mention of cerebral infarction PVD (peripheral vascular disease) Peripheral vascular disease, unspecified documented in this encounter Care Teams End Lathe Operator Relationship Specialty Start Date End Date Nataliya Messina MD [address] [place] [address] PCP - General 10/02/11 01/11/22 documented as of this encounter
--- OUTSIDE RECORDS SUMMARY | 2024-02-09 02:18 | XMS_ITS | Encounter Summary ---
Author Organization [facility] Address [facility] [place] [address] Care Team Providers Care Manager Rn Case Name Role Phone Nataliya Messina MD Primary Care Provider Encounter Details Date Type Department Care Team (Late st Contact Info) Description 10/19/2016 Tele[place] [phone] Gina Marquis MD [facility] [place] [place] [address] Social History Tobacco Use Types Packs/Day Years [...] AM EDT Office Visit Hematology/Oncology at [address] [address] Heber Phillips MD [facility] [place] [address] Isabella Baker APRN [facility] [place] [place] [address] documented as of this encounter Visit Diagnoses Not on filedocumented in this encounter Care Teams Manager Rn Case Relationship Specialty Start Date End Date Nataliya Messina MD [address] [place] [address] [address] [place] [address] PCP - General 10/02/11 01/11/22 documented as of this encounter
--- OUTSIDE RECORDS SUMMARY | 2024-02-09 02:18 | XMS_ITS | Encounter Summary ---
Author Organization [facility] [place] [address] Care Team Providers Care Data Control Clerk Name Role Phone Nataliya Messina MD Primary Care Provider [phone] Reason for Visit * Auth/Cert Specialty Diagnoses [...] PM EDT Hospital [place] [address] Harry Hernandez [place] Discharge Disposition: Home Social [...] AM EDT Office Visit Hematology/Oncology at [address] [phone] Heber Phillips MD [facility] DR HEMATOLOGY [place] [address] Isabella Baker APRN [facility] [place] [address] documented as of this encounter Procedures Procedure Name Priority Date/Time Associated Diagnosis Comments BLOOD GAS ARTERIAL POC Routine 10/20/2016 3:57 PM EDT documented in this encounter Results * (ABNORMAL) BLOOD GAS 2 ARTERIAL (10/20/2016 3:57 PM EDT) pH, Arterial 7.26(Criti avery) 7.35 - 7.45 [facility] Comment:Noted by surgical instruments inspector.10/20/16 16:00 PCO2, Arterial 47(H) 35 - 45 mmHg [facility] PO2, Arterial 429(H) 85 - 104 mmHg [facility] Bicarbonate, Arterial 21.0 20.0 - 26.0 mmol/L [facility] Base Excess, Arterial -6.4(L) -3.0 - 3.0 mmol/L [facility] Hgb Blood Gas 13.0(L) 13.7 - 16.5 gm/dL [facility] Oxyhemoglobin, Arterial 98.7(H) 94.0 - 97.0 % [facility] Carboxyhemoglob in, Arterial 0.8 % [facility] Comment: Nonsmokers: 0.5-1.5% COHB Smokers: Variable, but usually less than 10% Toxic: 20-30% COHB Lethal: Greater than 60% COHB Methemoglobin, Arterial 0.3 <=1.5 % [facility] Na Whole Blood 137 135 - 145 mmol/L [facility] K Whole Blood 3.9 3.5 - 5.0 mmol/L [facility] Comment: Please note: Patients with WBC >100,000 may have falsely elevated Potassium levels. Contact the Clinical Chemistry Laboratory if there are any questions. ICa Whole Blood 1.25 1.15 - 1.33 mmol/L [facility] Comment: Note: ??Total bilirubin higher than 20 mg/dL may lead to falsely low ionized calcium. CL Whole Blood 106 98 - 107 mmol/L [facility] Gluc Whole Bld 95 65 - 199 mg/dL [facility] Comment:Diabetes: >=200 mg/d L plus symptoms. Lactate WB 1.1 0.5 - 2.2 mmol/L [facility] Blood specimen (specimen) Arterial Draw / Unknown 10/20/2016 3:57 PM EDT 10/20/2016 4:00 PM EDT Narrative Resulting Agency Comment Spec In Lab Maritza Thayer MD POINT OF CARE TEST ORDERABLES Performing Organization Address City/State/[facility] Co de Phone Number [facility] [place] [address] documented in this encounter Visit Diagnoses Not on filedocumented in this encounter Care Teams Data Control Clerk Relationship Specialty Start Date End Date Nataliya Messina MD [address] [place] [address] PCP - General 10/02/11 01/11/22 documented as of this encounter
--- OUTSIDE RECORDS SUMMARY | 2024-02-09 02:19 | XMS_ITS | Encounter Summary ---
Author Organization [facility] Address [facility] [place] [address] Care Team Providers Care Diabetes Territory Manager Name Role Phone Edin Messina MD Primary Care Provider Encounter Details Date Type Department Care Team (Late st Contact Info) Description 08/20/2014 10:40 AM EST Follow-Up Cardiology at [address] [phone] Stevo Dalton MD [facility] [address] CAD (coronary artery disease) Discharge Disposition: Home [...] Social History Narrative Lives with his in [place], [place]. 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 [...] AM EDT Office Visit Hematology/Oncology at [address] [phone] Heber Phillips MD [facility] [address] [place] [address] Isabella Baker APRN [facility] [place] [address] documented as of this encounter Visit Diagnoses Diagnosis CAD (coronary artery disease) Coronary atherosclerosis of unspecified type of vessel, [place] or graft documented in this encounter Care Teams Diabetes Territory Manager Relationship Specialty Start Date End Date Edin Messina MD [address] [facility] [address] [place] [address] PCP - General 10/02/11 01/11/22 documented as of this encounter
--- OUTSIDE RECORDS SUMMARY | 2024-02-09 02:19 | XMS_ITS | Encounter Summary ---
Author Organization [facility] [place] [address] Care Team Providers Care Screen Operator Name Role Phone Nataliya Messina MD Primary Care Provider [phone] Reason for Visit * Reason Comments Blurred [...] 10:45 AM EDT Office [place] [address] [facility] [place] [address] Central retinal artery occlusion of right eye [...] AM EDT Office Visit Hematology/Oncology at [address] [phone] [facility] DR [place] [address] [facility] [place] [address] documented as of this encounter Visit Diagnoses Diagnosis Central retinal artery occlusion of right eye Central artery occlusion of retina documented in this encounter Care Teams Screen Operator Relationship Specialty Start Date End Date Nataliya Messina MD [address] [place] [address] [address] [place] [address] PCP - General 10/02/11 01/11/22 documented as of this encounter
--- OUTSIDE RECORDS SUMMARY | 2024-02-09 02:19 | XMS_ITS | Encounter Summary ---
Author Organization [facility] Address [facility] [place] [address] Care Team Providers Care Human Factors Engineer Name Role Phone Nataliya Messina MD Primary Care Provider [phone] Reason for Visit * Reason Comments Carotid Stenosis Encounter Details Date Type Department Care Team (Late st Contact Info) Description 10/15/2014 2:00 PM EDT Follow-[place] [phone] Kristan Patrick MD [facility] [place] [address] PVD (peripheral vascular disease); Carotid stenosis, unspecified [...] Waveform Dorsalis Pedis (Ankle) Artery 95 0.72 [place]-Biphasic Posterior Tibial (Ankle) Artery 94 0.71 Biphasic [...] note and plan. Kristan Rivers MD/KAYY, Pager [phone] Section of Vascular Surgery, PGY1 documented in this encounter Plan of Treatment Upcoming Encounters Date Type Department Care Team (Late st Contact Info) Description 03/28/2024 10:00 AM EDT Office Visit Hematology/Oncology at [address] [phone] Heber Phillips MD [facility] HEMATOLOGY [place] [address] Isabella Baker APRN [facility] [place] [address] documented as of this encounter Results * NALDO, legs, multiple levels (10/07/2015 2:39 PM EDT) [facility] Text Report Department: Vascular Surgery Lab Patient: [id number] (BRITTA SAEED) CPT: 59416 ICD10: I73.9 Referring Physician: KRISTAN PATRICK ?? Indications: ??F/U PAD, ? interval change Diabetes mellitus: No ICD10 Diagnosis Code: I73.9 Findings: Right ?Pressure (mm Hg) ?? NALDO ??Waveform ? Brachial Artery ?120 ? Dorsalis Pedis (Ankle) Artery ?77 ?0.63 ??[place]-Biphasi c ?? Posterior Tibial (Ankle) Artery ??88 ?0.72 ??[place]-Biphasi c ?? Left ? Pressure (mm Hg) ?? NALDO ??Waveform ? Brachial Artery ?123 ? Dorsalis Pedis (Ankle) Artery ?79 ?0.64 ??[place]-Biphasi c ?? Posterior Tibial (Ankle) Artery ??90 ?0.73 ??[place]-Biphasi c ?? Interpretation : RIGHT: Mild to [...] Text Report Department: Vascular Surgery Lab Patient: [id number] (BRITTA SAEED) CPT: 61003 ICD10: I65.29 Referring Physician: KRISTAN PATRICK ?? [...] Patrick MD VASCULAR ORDERABLES Performing Organization Address City/State/[facility] Co de Phone Number [facility] documented in this encounter Visit Diagnoses Diagnosis PVD (peripheral vascular disease) Peripheral vascular disease, unspecified Carotid stenosis, unspecified laterality documented in this encounter Care Teams Human Factors Engineer Relationship Specialty Start Date End Date Nataliya Messina MD [address] [place] [address] PCP - General 10/02/11 01/11/22 documented as of this encounter
--- OUTSIDE RECORDS SUMMARY | 2024-02-09 02:19 | XMS_ITS | Encounter Summary ---
Author Organization [facility] Address [facility] [place] [address] Care Team Providers Care Residence Director Name Role Phone Edin Messina MD Primary Care Provider [phone] Encounter Details Date Type Department Care Team (Late st Contact Info) Description 10/10/2013 1:30 PM EDT - 10/10/2013 2:30 PM EDT Surgery [place] [address] Stevo Dalton MD [facility] [place] [address] Not Performed CARDIAC CATHETERIZATION Social History Tobacco [...] appointments: During 8am-5pm Wednesday through Wednesday call [phone] to speak with a nurse in the cardiology clinic All other times call [phone] and ask to speak to the medical radiation therapist automobile club information clerk. Return to work: One week Driving: No driving for 48 hours after catheterization. Follow up Appointments: PCP EDIN MESSINA MD to see you on October 18 at 240 pm. Please call [phone] Lauri Winn to see you in [place] on WednesdayOctober 16 at 930 am as previously arranged. Please call his office at [phone]. Home oxygen therapy: N/A Arrangements for VNA/home care: none * Attachments The following attachments cannot be sent through Care Everywhere. * PCI (PERCUTANEOUS CORONARY INTERVENTION) : GENERAL INFO (IRAQI) documented in this encounter Medications at Time [...] Patient left ambulating independently with his to [facility] for home. * Mila Mccall MD - 10/11/2013 9:43 AM EDT Inpatient Cardiology Progress Note Patient Name: Hieu Tillman Service: AUDIO VISUAL AIDE / PA Responsible Attending: Mila Mccall MD [...] COPD and carotid disease who presents to [facility] in transfer from [facility] on 10/09 with atypical chest discomfort while [...] Mccall MD KELLY H LAFLAMME, PA Pager [phone] 10/11/2013 Attending Addendum I personally conducted comprehensive [...] secondary prevention regiment. I am a credentialed photolith operator at [facility] and I am the attending of record for the patient's admission. I certify that this patient meets or has met the criteria for inpatient treatment for their acute condition meeting a minimum of two midnights. The acute conditions are detailed above Mila Mccall MD Staff Button Machine Operator Pager: [phone] * Nelly Antunez - 10/10/2013 9:54 PM [...] pulses are palpable. Nelly Antunez MD # [id number] * Remi Sky RN - 10/10/2013 11:46 AM EDT Office of Care Management (OCM) / Clinical Prior Authorization Nurse (CRC)/ Initial Assessment Discussed patient with Provider [...] five childen who all live in [facility]. ADVANCE DIRECTIVES: Pt reports he and his are working on their AD at home. Not complete at this time. HEALTH /PRESCRIPTION COVERAGE: [place] [employer]. No financial concerns expressed at this time. CURRENT HOME/COMMUNITY SERVICES/EQUIPMENT: DME: None Home Health Agency: None Other: TITLE 1 TUTOR REFERRAL: Notified TITLE 1 TUTOR - for Support/Financial/Medication Assistance; See TITLE 1 TUTOR notes for further needs. PRIMARY CARE PHYSICIAN: EDIN MESSINA MD [place] [id number] / [facility] [id number] POTENTIAL DISCHARGE NEEDS: None ID at this [...] planning while hospitalized Remi KWAN, RN Clinical Prior Authorization Nurse Pager [phone] * Mila Mccall MD - 10/10/2013 11:19 AM EDT Images from the original note were not included. Inpatient Cardiology Progress Note Patient Name: Hieu Tillman Service: AUDIO VISUAL AIDE / PA Responsible Attending: Mila Mccall MD [...] COPD and carotid disease who presents to [facility] in transfer from [facility] on 10/09 with atypical chest discomfort while [...] his chest pain. Mila Mccall MD Staff Button Machine Operator Pager: [phone] I am a credentialed photolith operator at [facility] and I am the attending of record [...] nicotine patch) who was sent to the [facility] ED today after having chest pressure while [...] normal self. He arrives pain free from [facility]. Past Medical History: Past Medical History Diagnosis [...] Social History Narrative Lives with his in [place], [place]. 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 [...] MD Provider: ANITHA CARLOS APRN Provider #: [id number] 10/09/2013 Attending Addendum I personally conducted comprehensive [...] stress test tomorrow. I am a credentialed photolith operator at [facility] and I am the attending of record for the patient's admission. I certify that this patient meets or has met the criteria for inpatient treatment for their acute condition meeting a minimum of two midnights. The acute conditions are detailed above Mila Mccall MD Staff Button Machine Operator Pager: [phone] documented in this encounter Procedure Notes * Provider, Scanning - 10/17/2013 11:49 AM EDTAssociated Order(s): CARDIAC CATHETERIZATION * Provider, Scanning - 10/15/2013 10:32 AM EDTAssociated Order(s): SCAN DOC: HEALTH INFORMATION MANAGERS * Provider, Scanning - 10/12/2013 12:09 PM EDTAssociated Order(s): SCAN DOC: HEALTH INFORMATION MANAGERS * Provider, Scanning - 10/10/2013 5:00 PM [...] Is currently enrolled in cardiac rehab @ [facility]; will return Activity Summary: By discharge, patient [...] Hieu Tillman Patient Age: 58 y.o. Language: Sammarinese Race: White Ethnicity: Not nor Admit date: 10/09/2013 Discharge date and time: 10/11/2013 11:37 AM Attending Physician: Mila Mccall MD Discharge Physician: Mila Mccall MD Follow-up Recommendations for Providers: Continue to encourage smoking cessation Follow up on left groin site Inpatient Provider Contact Information: ANITHA Mosqueda MORGANEDOUARD, RAILROAD PURCHASING AGENT [phone] Discharge Diagnoses (Hospital Problems) and Secondary Diagnoses [...] nicotine patch) who was sent to the [facility] ED today after having chest pressure while [...] normal self. He arrives pain free from [facility]. Hospital Course: Angina The nature of his [...] appointments: During 8am-5pm Wednesday through Wednesday call [phone] to speak with a nurse in the cardiology clinic All other times call [phone] and ask to speak to the medical radiation therapist automobile club information clerk. Return to work: One week Driving: No driving for 48 hours after catheterization. Follow up Appointments: PCP EDIN MESSINA MD to see you on October 18 at 240 pm. Please call [phone] Lauri Winn to see you in [place] on WednesdayOctober 16 at 930 am as previously arranged. Please call his office at [phone]. Home oxygen therapy: N/A Arrangements for VNA/home care: none Future Appointments and Orders Future Appointments: Provider: Department: Dept Phone: Center: 10/16/2013 9:30 AM Lauri Winn Jr., MD [place] [facility] [phone] None Future Orders Please Complete By Expires Referral to Cardiac Rehab [[id number] Custom] Process Instructions: If no progress note charted, please enter Clinical details in comments. Scheduling Instructions: Comments: Return to cardiac rehab @ [facility] Questions: Responses: Reason for referral angina,stent Discharge References/Attachments None MILA MCCALL MD >30 minutes were spent on this inpatient discharge. * Miscellaneous - Wandy Dennison - 10/09/2013 2:57 PM EDT documented in this encounter Plan of Treatment Upcoming Encounters Date Type Department Care Team (Late st Contact Info) Description 03/28/2024 10:00 AM EDT Office Visit Hematology/Oncology at [address] [address] Heber Phillips MD [facility] [place] [address] Isabella Baker APRN [facility] [place] [address] Scheduled Orders Name Type Priority Associated Diagnoses [...] CATHETERIZATION Routine 12/06/19 21 10:49 AM EDT HEALTH INFORMATION MANAGERS SCAN 10/15/2013 10:32 AM EDT HEALTH INFORMATION MANAGERS SCAN 10/12/2013 12:09 PM EDT EKG 12-LEAD Routine 10/11/2013 8:27 AM EDT Chest pain BMP W/FASTING GLUCOSE Routine 10/11/2013 5:19 AM EDT SCAN, PERIPHERAL BLOOD Routine 4 5:19 AM EDT DIFFERENTIAL, AUTOMATED Routine 10/12/19 14 5:19 AM EDT CARDIAC ENZYMES ([facility]) Routine 10/11/2013 5:19 AM EDT CBC (WITH DIFF) Routine 10/11/2013 5:19 AM EDT LIPID PANEL (REFLEX DIRECT LDL) Routine 10/11/2013 5:19 AM EDT EKG 12-LEAD Routine 10/10/2013 4:00 PM EDT CAD (coronary artery disease) CARDIAC ENZYMES ([facility]) STAT 10/10/2013 4:00 PM EDT EKG 12-LEAD [...] Routine 10/10/2013 Angina at rest CARDIAC ENZYMES ([facility]) STAT 10/09/2013 9:41 PM EDT MISCELLANEOUS LAB REQUEST Routine 10/09/2013 3:55 PM EDT CARDIAC ENZYMES ([facility]P) STAT 10/09/2013 3:55 PM EDT EKG 12-LEAD STAT 10/09/2013 3:22 PM EDT Chest pain documented in this encounter Results * Cardiac Catheterization (12/05/2020 10:49 AM EDT) Anatomical Region Laterality Modality Other Narrative 12/05/2020 10:49 AM EDT ?[facility] ? Cardiac Catheterization/Intervention Report ? Patient Name: Hieu Tillman. ? Procedure Date: 10/10/2013 ? A #: [id number] ? Primary Physician: Stevo Dalton ? Case #: [id number] ? File Name: [id number] ? Catheterization Order Number: [id number] ? [facility] ? Final Report [place], [place] ? Patient Name: ? Hieu M. Tillman ? ID#: ?[id number] ? : ?1955 ? Procedure Date: ? [...] Catheterization ?* Coronary Ultrasound ?* Coronary Flow [place] Measurement (FFR) ?* Coronary Angioplasty ?* Coronary [...] Class IV. ? Indications for Diagnostic Cath: ?[place] [employer] Society angina class was IV. ? [...] Fr EBU 4.0 guide ? utilizing an Oceana 12 mm balloon with a maximum size [...] ??The lesion was predilated with a 2.50mm Oceana 12 mm ? balloon with a maximum inflation pressure of 16 atmospheres. ? A premounted 3.00 x 20 mm Promus Premier (MISTY) was deployed ? with a maximum inflation pressure of 16 atmospheres. ? Following stent deployment, the lesion was dilated using a ? 3.50mm NC Quantum Oceana 12 mm balloon with a maximum inflation [...] in the circumflex vessel using a volcano kaibab eye ?catheter. This showed the stent was [...] Procedure Note Stevo Dalton MD - 12/05/2020 [facility] Cardiac Catheterization/Intervention Report Patient Name: Hieu TillmanJaida Procedure Date: 10/10/2013 A #: [id number] Primary Physician: Stevo Dalton Case #: [id number] File Name: [id number] Catheterization Order Number: [id number] [facility] FinalReport [place], [place] Patient Name: Hieu Tillman ID#:[id number] :1955 Procedure Date: October 10, 2013 Case #: [id number] Room: 5 Case Physician: Stevo Dalton M.D. Start: 14:25 Fellow: José Miguel Gong M.D. Admission:10/09/2013 Discharge:10/11/2013 Referring Edin Messina M.D. Physicians: Joshua Kumari M.D. Procedures: * Coronary Angiography * Left Heart Catheterization * Coronary Ultrasound * Coronary Flow [place] Measurement (FFR) * Coronary Angioplasty * Coronary [...] ASA Class IV. Indications for Diagnostic Cath: [place] Cardiovascular Society angina class was IV. Technique: [...] 6 Fr EBU 4.0 guide utilizing an Oceana 12 mm balloon with a maximum size [...] The lesion was predilated with a 2.50mm Oceana 12mm balloon with a maximum inflation pressure of 16atmospheres. A premounted 3.00 x 20 mm Promus Premier (MISTY) wasdeployed with a maximum inflation pressure of 16 atmospheres. Following stent deployment, the lesion was dilated usinga 3.50mm NC Quantum Oceana 12 mm balloon with a maximuminflation pressure [...] two area of the circumflex vessel with Exercise the World FFR wire. Initially the main circumflex was [...] performed in the circumflex vessel using a Chunyuo eagleeye catheter. This showed the stent was [...] CARDIAC CATH ORDERAB LES * SCAN DOC: HEALTH INFORMATION MANAGERS (10/15/2013 10:32 AM EDT) Anatomical Region Laterality Modality Other Narrative 10/15/2013 10:35 AM EDT Procedure Note Provider, Scanning - 10/15/2013 10:32 AM EDT Scanning Provider MEDIA MGR SCAN EXT O RDR/RSLT * SCAN DOC: HEALTH INFORMATION MANAGERS (10/12/2013 12:09 PM EDT) Anatomical Region Laterality [...] (Bezet) 440 ms MUSE SYSTEM Calculated P Stark 71 degrees MUSE SYSTEM Calculated R Stark 67 degrees MUSE SYSTEM Calculated T Stark 73 degrees MUSE SYSTEM INTERPRETATION Normal sinus rhythm Low septal forces Otherwise normal ECG When compared with ECG of 10-OCT-2013 16:00, Questionabl e change in initial forces of Septal leads Confirmed by Joyce HIGUERA, Trevin ([id number]) on 10/11/2013 10:49:44 AM MUSE SYSTEM 10/11/2013 8:27 AM EDT 10/11/2013 10:49 AM EDT Mila Mccall MD ECG ORDERABLES MUSE SYSTEM * (ABNORMAL) Differential, Automated (10/11/2013 5:19 AM EDT) Neutrophil % 90.3(H) 34.0 - 71.0 % CERNER MILLENNIUM Neutrophil Absolute 19.88(H) 1.50 - 6.30 x10(3)/mc L CERNER MILLENNIUM Lymph % 4.5(L) 19.0 - 53.0 % CERNER MILLENNIUM Lymphocytes Abs 1.0 1.0 - 3.6 x10(3)/mc L CERNER MILLENNIUM Monocyte % 4.8 4.0 - 13.0 % CERNER MILLENNIUM Monocyte Abs 1.0 0.2 - 1.0 x10(3)/mc L CERNER MILLENNIUM Eos % 0.0 0.0 - 7.0 % CERNER MILLENNIUM Eosinophils Abs 0.0 0.0 - 0.5 x10(3)/mc L CERNER MILLENNIUM Basophil % 0.0 0.0 - 2.0 % CERNER MILLENNIUM Baso Absolute 0.0 0.0 - 0.2 x10(3)/mc L CERNER [...] performed. Immature Gran Absolute 0.09(H) 0.00 - 0.05 x10(3)/mc L CERNER МАРИЯENNIUM Blood specimen (specimen) 10/11/2013 5:19 AM EDT 10/11/2013 5:35 AM EDT Mila Mccall MD HEMATOLOGY ORDERABLE S BRYN DOYLEIUM * Scan, Peripheral Blood (10/11/2013 5:19 AM EDT) Plat estimate Normal CERNER MILLENNIUM RBC Morphology Normal CERNE R MILLENNIUM Blood specimen (specimen) 10/11/2013 5:19 AM EDT 10/11/2013 5:35 AM EDT Narrative Resulting Agency Comment Spec In Lab Mila Mccall MD HEMATOLOGY ORDERABLE S Performing Organization Address [facility] Co de Phone Number CERNER MILLENNIUM * (ABNORMAL) CBC (with Diff) (10/11/2013 5:19 AM EDT) White Blood Cell 22.0(H) 4.0 - 10.0 x10(3)/mc L CERNER MILLENNIUM Red Blood Cell 4.36(L) 4.63 - 6.08 x10(6)/mc L CERNER MILLENNIUM Hemoglobin 13.1(L) 13.7 - 17.5 gm/dL CERNER MILLENNIUM Hematocrit 38.1(L) 40.0 - 51.0 % CERNER MILLENNIUM Mean Cell Volume 87.4 79.0 - 92.0 fL CERNER MILLENNIUM Mean Cell Hemoglobin 30.0 25.6 - 32.2 pg CERNER MILLENNIUM Mean Cell Hemoglobin Concentration 34.4 32.0 - 36.5 gm/dL CERNER MILLENNIUM Platelet 370 145 - 370 x10(3)/mc L CERNER MILLENNIUM RDW Standard Deviation 44.4 35.0 - 46.0 fL CERNER MILLENNIUM RDW coefficient of variation 14.0 10.9 - 14.4 % CERNER MILLENNIUM Mean Platelet Volume 9.4 9.0 - 12.0 fL CERNER MILLENNIUM Blood specimen (specimen) 10/11/2013 5:19 AM EDT 10/11/2013 5:35 AM EDT Narrative Resulting Agency Comment Spec In Lab Mila Mccall MD HEMATOLOGY ORDERABLE S Performing Organization Address [facility]/ZIP Co de Phone Number CERNER МАРИЯENNIUM * (ABNORMAL) BMP w/fasting Glucose (10/11/2013 5:19 [...] of Diabetes Mellitus, Position Statement from the [place] Diabetes Association. ??Diabetes Care, Volume 33, Supplement 1, Jun 2009 Blood Urea Nitrogen 23(H) 10 - 20 mg/dL CERNER MILLENNIUM Creatinine 0.99 0.80 - 1.50 mg/dL CERNER MILLENNIUM Comment: Please note that the pediatric reference intervals supplied above were not validated at [facility]. Results from pediatric patients should be interpreted [...] 103 98 - 107 mmol/L CERNER MILLENNIUM Carbon Dioxide 23 22 - 31 mmol/L CERNER MILLENNIUM Anion Gap 12 5 - 15 mmol/L CERNER MILLENNIUM Calcium 9.4 8.5 - 10.5 mg/dL CERNER MILLENNIUM Est Glomerular Filtration Rate >60 >=60 CERNER MILLENNIUM Comment: This estimated [...] In Lab Mila Mccall MD CHEMISTRY ORDERABLES [facility] * (ABNORMAL) Lipid panel (fasting) (10/11/2013 5:19 AM EDT) Cholesterol, Total 117 <=199 mg/dL [facility] Comment: Recommendations of the NCEP Adult Treatment Panel for the following risk cutoff thresholds for the [place] population: Desirable: <200 mg/dL Borderline High: 200-239 mg/dL High: > or = 240 mg/dL Triglyceride 92 <=149 mg/dL [facility] Comment: Reference Range: Normal triglycerides: ??<150 mg/dL Borderline high: ??150-199 mg/dL High: ??200-499 mg/dL Very high: ??>mx=262 mg/dL DAO 2001; 285(19):1876-0583 HDL Cholesterol 32(L) >=40 mg/dL [facility] Comment: Reference range: ??Low HDL: ?? < 40 mg/dL ??Normal: ?40-60 mg/dL ??Desirable: > 60 mg/dL DAO 2001; 285(19):0481-3339 LDL Cholesterol 67 <=99 mg/dL [facility] Comment: Reference range: ?? Optimal: ?<100 mg/dL ?? Near Optimal/Above Optimal: ?? 100-129 mg/dL ?? Borderline high: ?130-159 mg/dL ?? High: ? 160-189 mg/dL ?? Very high: ?>fa=414 mg/dL DAO 2001: 285(19):5643-7251 Cholesterol/HDL Ratio 3.7 ratio [facility] Comment: A Cholesterol to HDL ratio below 4:1 is desirable. ??Studies suggest that increased CAD risk occurs at ratios above 5 for females and above 6 for men. ? [place] Heart Association ??(http://www.americanheart.org) ? Jeri Int Med, 1994; 121:641 ? AM J Med, 1998; 105(1A):48S Blood specimen (specimen) 10/11/2013 5:19 AM EDT 10/11/2013 5:35 AM EDT Narrative Resulting Agency Comment Spec In Lab Mila Mccall MD CHEMISTRY ORDERABLES Performing Organization Address [facility] Co de Phone Number BRYN HSIEHPingMeIUM * Cardiac Enzymes (10/11/2013 5:19 AM EDT) Troponin-T <0.03 <=0.03 ng/mL CERRENAN HSIEHENNIUM Comment: 0.03 ng/mL: Represents the 99th percentile upper reference limit for normals. >0.03 ng/mL: Elevated cardiac troponin T level indicative of myocardial damage. Diagnosis of acute, evolving or recent NE requires a typical rise and gradual fall [...] consensus document of the Joint Society of Cardiology/[place] College of Cardiology Committee for the redefinition of myocardial infarction. ??Journal of the [place] College of Cardiology 2000; 36: 959-969] Creatine Kinase 53 0 - 200 unit/L CERRENAN SprainGoMARTHAIUM Blood specimen (specimen) 10/11/2013 5:19 AM EDT 10/11/2013 5:35 AM EDT Narrative Resulting Agency Comment Spec In Lab Mila Mccall MD CHEMISTRY ORDERABLES Performing Organization Address [facility] Co de Phone Number BRYN HSIEHPingMeIUM * EKG 12 Lead (10/10/2013 4:00 PM EDT) Ventricular rate 78 BPM MUSE SYSTEM Atrial Rate 78 BPM MUSE SYSTEM P-R Interval 154 ms MUSE SYSTEM QRS Duration 80 ms MUSE SYSTEM Q-T Interval 402 ms MUSE SYSTEM QTC Calculated (Bezet) 458 ms MUSE SYSTEM Calculated P Stark 76 degrees MUSE SYSTEM Calculated R Stark 60 degrees MUSE SYSTEM Calculated T Stark 79 degrees MUSE SYSTEM INTERPRETATION Normal sinus [...] MD ECG ORDERABLES MUSE SYSTEM * Cardiac Enzymes (10/10/2013 4:00 PM EDT) Pathologist [facility] Troponin-T <0.03 <=0.03 ng/mL CEROrca DigitalIUM Comment: 0.03 ng/mL: Represents the 99th percentile upper reference limit for normals. >0.03 ng/mL: Elevated cardiac troponin T level indicative of myocardial damage. Diagnosis of acute, evolving or recent NE requires a typical rise and gradual fall [...] consensus document of the Joint Society of Cardiology/[place] College of Cardiology Committee for the redefinition of myocardial infarction. ??Journal of the [place] College of Cardiology 2000; 36: 959-969] Creatine Kinase 59 0 - 200 unit/L CERNER SprainGoENNIUM Blood specimen (specimen) 10/10/2013 4:00 PM EDT 10/10/2013 4:15 PM EDT Narrative Resulting Agency Comment Spec In Lab Mila Mccall MD CHEMISTRY ORDERABLES Performing Organization Address [facility] de Phone Number BRYN SANCHEZ * EKG 12 Lead (10/10/2013 11:12 AM EDT) Ventricular rate 82 BPM MUSE SYSTEM Atrial Rate 82 BPM MUSE SYSTEM P-R Interval 154 ms MUSE SYSTEM QRS Duration 82 ms MUSE SYSTEM Q-T Interval 372 ms MUSE SYSTEM QTC Calculated (Bezet) 434 ms MUSE SYSTEM Calculated P Stark 74 degrees MUSE SYSTEM Calculated R Stark 57 degrees MUSE SYSTEM Calculated T Stark 92 degrees MUSE SYSTEM INTERPRETATION Normal sinus [...] Mccall MD ECG ORDERABLES Performing Organization Address [facility] de Phone Number MUSE SYSTEM * NM [...] (Bezet) 422 ms MUSE SYSTEM Calculated P Stark 74 degrees MUSE SYSTEM Calculated R Stark 66 degrees MUSE SYSTEM Calculated T Stark 81 degrees MUSE SYSTEM INTERPRETATION Normal sinus rhythm Normal ECG When compared with ECG of 09-OCT-2013 15:22, No significant change was found Confirmed by Trevin Cook MD (49) on 10/10/2013 1:41:41 PM MUSE SYSTEM 10/10/2013 7:22 AM EDT 10/10/2013 1:41 PM EDT Mila Mccall MD ECG ORDERABLES MUSE SYSTEM * (ABNORMAL) Differential, Automated (10/10/2013 4:06 AM EDT) Neutrophil % 90.6(H) 34.0 - 71.0 % CERNER MILLENNIUM Neutrophil Absolute 12.53(H) 1.50 - 6.30 x10(3)/mc L CERNER MILLENNIUM Lymph % 6.6(L) 19.0 - 53.0 % CERNER MILLENNIUM Lymphocytes Abs 0.9(L) 1.0 - 3.6 x10(3)/mc L CERNER MILLENNIUM Monocyte % 2.2(L) 4.0 - 13.0 % CERNER MILLENNIUM Monocyte Abs 0.3 0.2 - 1.0 x10(3)/mc L CERNER MILLENNIUM Eos % 0.1 0.0 - 7.0 % CERNER MILLENNIUM Eosinophils Abs 0.0 0.0 - 0.5 x10(3)/mc L CERNER MILLENNIUM Basophil % 0.1 0.0 - 2.0 % CERNER MILLENNIUM Baso Absolute 0.0 0.0 - 0.2 x10(3)/mc L CERNER [...] performed. Immature Gran Absolute 0.06(H) 0.00 - 0.05 x10(3)/mc L CERNER MILLENNIUM Blood specimen (specimen) 10/10/2013 4:06 AM EDT 10/10/2013 4:33 AM EDT Mila Mccall MD HEMATOLOGY ORDERABLE S CERNER MILLENNIUM * (ABNORMAL) CBC (with Diff) (10/10/2013 4:06 AM EDT) White Blood Cell 13.8(H) 4.0 - 10.0 x10(3)/mc L [facility] Red Blood Cell 4.60(L) 4.63 - 6.08 x10(6)/mc L [facility] MILL[facility]NIUM Hemoglobin 13.8 13.7 - 17.5 gm/dL [facility] MILLENNIUM Hematocrit 40.5 40.0 - 51.0 % [facility] MILLENNIUM Mean Cell Volume 88.0 79.0 - 92.0 fL [facility] MILLENNIUM Mean Cell Hemoglobin 30.0 25.6 - 32.2 pg [facility] Mean Cell Hemoglobin Concentration 34.1 32.0 - 36.5 gm/dL [facility] Platelet 398(H) 145 - 370 x10(3)/mc L [facility] RDW Standard Deviation 43.7 35.0 - 46.0 fL [facility] MILLENNIUM RDW coefficient of variation 13.6 10.9 - 14.4 % [facility] MILLENNIUM Mean Platelet Volume 9.4 9.0 - 12.0 fL [facility] MILLENNIUM Blood specimen (specimen) 10/10/2013 4:06 AM EDT 10/10/2013 4:33 AM EDT Narrative Resulting Agency Comment Spec In Lab Mila Mccall MD HEMATOLOGY ORDERABLE S [facility] * (ABNORMAL) BMP w/fasting Glucose (10/10/2013 4:06 AM EDT) Pathologist [facility] Glucose Fasting 187(H) 65 - 99 mg/dL [facility] Comment: ?Fasting* Glucose Interpretive Criteria Normal ?65-99 [...] of Diabetes Mellitus, Position Statement from the [place] Diabetes Association. ??Diabetes Care, Volume 33, Supplement 1, Jun 2009 Blood Urea Nitrogen 29(H) 10 - 20 mg/dL CERNER MILLENNIUM Creatinine 1.09 0.80 - 1.50 mg/dL CERNER MILLENNIUM Comment: Please note that the pediatric reference intervals supplied above were not validated at [facility]. Results from pediatric patients should be interpreted [...] 99 98 - 107 mmol/L CERNER MILLENNIUM Carbon Dioxide 23 22 - 31 mmol/L CERNER MILLENNIUM Anion Gap 12 5 - 15 mmol/L CERNER MILLENNIUM Calcium 9.6 8.5 - 10.5 mg/dL CERNER MILLENNIUM Est Glomerular Filtration Rate >60 >=60 CERNER MILLENNIUM Comment: This estimated [...] In Lab Mila Mccall MD CHEMISTRY ORDERABLES [facility] VIVEKIUM * NUCLEAR STRESS, CARDIOLOGY RESULTS (10/10/2013) Anatomical Region Laterality Modality Other Mila Mccall MD CARD TESTS W/SCANNED RESULTS * Cardiac Enzymes (10/09/2013 9:41 PM EDT) [facility] Troponin-T <0.03 <=0.03 ng/mL [facility] Comment: 0.03 ng/mL: Represents the 99th percentile upper reference limit for normals. >0.03 ng/mL: Elevated cardiac troponin T level indicative of myocardial damage. Diagnosis of acute, evolving or recent NE requires a typical rise and gradual fall [...] consensus document of the Joint Society of Cardiology/[place] College of Cardiology Committee for the redefinition of myocardial infarction. ??Journal of the [place] College of Cardiology 2000; 36: 959-969] Creatine Kinase 78 0 - 200 unit/L [facility] Blood specimen (specimen) 10/09/2013 9:41 PM EDT 10/09/2013 9:45 PM EDT Narrative Resulting Agency Comment Spec In Lab Mila Mccall MD CHEMISTRY ORDERABLES [facility] * Cardiac Enzymes (10/09/2013 3:55 PM EDT) [facility] Troponin-T <0.03 <=0.03 ng/mL [facility] Comment: 0.03 ng/mL: Represents the 99th percentile upper reference limit for normals. >0.03 ng/mL: Elevated cardiac troponin T level indicative of myocardial damage. Diagnosis of acute, evolving or recent NE requires a typical rise and gradual fall [...] consensus document of the Joint Society of Cardiology/[place] College of Cardiology Committee for the redefinition of myocardial infarction. ??Journal of the [place] College of Cardiology 2000; 36: 959-969] Creatine Kinase 89 0 - 200 unit/L BRYN SANCHEZ Blood specimen (specimen) 10/09/2013 3:55 PM EDT 10/09/2013 4:25 PM EDT Narrative Resulting Agency Comment Spec In Lab Mila Mccall MD CHEMISTRY ORDERABLES Performing Organization Address [facility] de Phone Number BRYN SANCHEZ * Miscellaneous Lab request (10/09/2013 3:55 PM EDT) Label Request received in lab. BRYN SANCHEZ Blood specimen (specimen) 10/09/2013 3:55 PM EDT 10/09/2013 4:25 PM EDT Mila Mccall MD LAB SEND OUT ORDERAB LES Performing Organization Address [facility] Co de Phone Number BRYN SANCHEZ * EKG 12 Lead (10/09/2013 3:22 PM EDT) Ventricular rate 61 BPM MUSE SYSTEM Atrial Rate 61 BPM MUSE SYSTEM P-R Interval 150 ms MUSE SYSTEM QRS Duration 82 ms MUSE SYSTEM Q-T Interval 410 ms MUSE SYSTEM QTC Calculated (Bezet) 412 ms MUSE SYSTEM Calculated P Stark 74 degrees MUSE SYSTEM Calculated R Stark 60 degrees MUSE SYSTEM Calculated T Stark 70 degrees MUSE SYSTEM INTERPRETATION Normal sinus [...] in sodium chloride 0.9% 90 mL infusion (RECORDS MANAGEMENT MANAGER) CONTINUOUS PRN, Starting on Wed10/10/13 at 1446, Until Wed10/10/13 at 1551, Cath (Intra-Procedure), Routine New Bag 10/10/2013 2:46 PM EDT 140 mcg/kg/min 588.8 mL/hr bivalirudin (ANGIOMAX) 250 mg in sodium chloride 0.9% 50 mL infusion (RECORDS MANAGEMENT MANAGER) CONTINUOUS PRN, Starting on Wed10/10/13 at 1435, [...] Reason: Patient/family refused) 0948 (Given - Provider: Lias Perez RN) aspirin EC tablet 81 mg [...] in sodium chloride 0.9% 90 mL infusion (RECORDS MANAGEMENT MANAGER) (CANCELED) CONTINUOUS PRN, Starting on Wed10/10/13 at 1446, Until Wed10/10/13 at 1551, Cath (Intra-Procedure), Routine 1446 (New Bag - Provider: Aristides Paulino RN)1449 (Stopped - Provider: Irving Riley RN) bivalirudin (ANGIOMAX) 250 mg in sodium chloride 0.9% 50 mL infusion (RECORDS MANAGEMENT MANAGER) (CANCELED) CONTINUOUS PRN, Starting on Wed10/10/13 at [...] Patch documented in this encounter Care Teams Residence Director Relationship Specialty Start Date End Date Edin Messina MD [address] [place] [address] PCP - General 10/02/11 01/11/22 documented as of this encounter
--- OUTSIDE RECORDS SUMMARY | 2024-02-09 02:19 | XMS_ITS | Encounter Summary ---
[place] [address] Care Team Providers Care Clinical Psychologist Name Role Phone Nataliya Messina MD Primary Care Provider [phone] Encounter Details Date Type Department Care Team (Latest Contact Info) Description 02/20/2014 1:30 PM EDT Ancillary Appointment [place] [phone] Vianca Castillo [place] Carotid stenosis; PVD (peripheral [...] AM EDT Office Visit Hematology/Oncology at [address] [phone] Heber Phillips MD [facility] [place] [address] Isabella Baker APRN [facility] [place] [address] documented as of this encounter Procedures Procedure Name Priority Date/Time Associated Diagnosis Comments NALDO, LEGS, MULTIPLE LEVELS Routine 02/20/2014 1:26 PM EDT PVD (peripheral vascular disease) CAROTID DUPLEX, BILATERAL Routine 02/20/2014 1:26 PM EDT Carotid stenosis documented in this encounter Results * NALDO, legs, multiple levels (02/20/2014 1:26 PM EDT) VB Text Report Department: Vascular Surgery Lab Patient: [id number] (BRITTA SAEED) CPT Code: 51230 ICD-9: 440.21 Referring Physician: KRISTAN PATRICK Indication: ?? F/U PVOD ICD9 Diagnosis Code: 440.21 Diabetes Mellitus: ??No Definitions: ?? NALDO = Ankle / Brachial Systolic Pressure Index, TBI = Toe / Brachial Systolic Pressure Index Findings: Right ?Pressure (mm Hg) ?? NALDO ??Waveform ? Brachial Artery ?118 ? Dorsalis Pedis (Ankle) Artery ?76 ?0.64 ??Bryan-Biphasic ?? Posterior Tibial (Ankle) Artery ??90 ?0.76 ??[place]ryan-Biphasic ?? Left ? Pressure (mm Hg) ?? [...] Text Report Department: Vascular Surgery Lab Patient: [id number] (SAEED, BRITTA) CPT Code: 12104 ICD-9: 433.10 Referring Physician: KRISTAN PATRICK Indication: [...] unspecified documented in this encounter Care Teams Clinical Psychologist Relationship Specialty Start Date End Date Nataliya Messina MD [address] [place] [address] PCP - General 10/02/11 01/11/22 documented as of this encounter
--- OUTSIDE RECORDS SUMMARY | 2024-02-09 02:19 | XMS_ITS | Encounter Summary ---
Author Organization [facility] [place] [address] Care Team Providers Care Histological Illustrator Name Role Phone Nataliya Messina MD Primary Care Provider [phone] Encounter Details Date Type Department Care Team (Late Contact Info) Description 08/20/2014 Orders Only Cardiology at [address] [phone] Tara Rock RN CAD (coronary artery disease) [...] AM EDT Office Visit Hematology/Oncology at [address] [phone] Heber Phillips MD [facility] DR HEMATOLOGY [place] [address] Isabella Baker APRN [facility] DR MEDICAL [place] [address] documented as of this encounter Results * EKG 12 Lead (08/20/2014 10:22 AM EST) Ventricular rate 93 BPM MUSE SYSTEM Atrial Rate 93 BPM MUSE SYSTEM P-R Interval 142 ms MUSE SYSTEM QRS Duration 80 ms MUSE SYSTEM Q-T Interval 354 ms MUSE SYSTEM QTC Calculated (Bezet) 440 ms MUSE SYSTEM Calculated P [place] 71 degrees MUSE SYSTEM Calculated R [place] 72 degrees MUSE SYSTEM Calculated T [place] 84 degrees MUSE SYSTEM INTERPRETATION Normal sinus rhythm Otherwise normal ECG When compared with ECG of 11-OCT-2013 08:27, No significant change was found I personally reviewed the tracing and edited the fellows interpretation Confirmed by fellow Nelly Antunez ([id number]) on 08/20/2014 12:25:28 PM Confirmed by MD CHRISTY, STEVO ([id number]) on 08/20/2014 2:32:29 PM MUSE SYSTEM 08/20/2014 10:2 2 AM EST 08/20/2014 2:32 PM EST Stevo Dalton MD ECG ORDERABLES MUSE SYSTEM documented in this encounter Visit Diagnoses Diagnosis CAD (coronary artery disease) Coronary atherosclerosis of unspecified type of vessel, grindstone or graft documented in this encounter Care Teams Histological Illustrator Relationship Specialty Start Date End Date Nataliya Messina MD [address] [place] [address] PCP - General 10/02/11 01/11/22 documented as of this encounter
--- OUTSIDE RECORDS SUMMARY | 2024-02-09 02:19 | XMS_ITS | Encounter Summary ---
[place] [address] Care Team Providers Care Hospital Director Name Role Phone Nataliya Messina MD Primary Care Provider [phone] Encounter Details Date Type Department Care Team (Late st Contact Info) Description 09/01/2016 Telephone Cardiology at [address] [phone] Chely Mitchell Social History Tobacco Use Types [...] AM EDT Office Visit Hematology/Oncology at [address] [address] Heber Phillips MD [facility] DR HEMATOLOGY [place] [address] Isabella Baker APRN [facility] [place] [address] documented as of this encounter Visit Diagnoses Not on filedocumented in this encounter Care Teams Hospital Director Relationship Specialty Start Date End Date Nataliya Messina MD [address] [place] [address] PCP - General 10/02/11 01/11/22 documented as of this encounter
--- OUTSIDE RECORDS SUMMARY | 2024-02-09 02:19 | XMS_ITS | Encounter Summary ---
Author Organization [facility] Address [facility] [place] [address] Care Team Providers Care Online Merchandiser Name Role Phone Nataliya Messina MD Primary Care Provider [phone] Encounter Details Date Type Department Care Team (Late Contact Info) Description 10/09/2013 Orders Only Cardiology at [address] [address] Stevo Mccall MD [facility] DR [place] [address] Social History Tobacco Use Types Packs/Day Years [...] AM EDT Office Visit Hematology/Oncology at [address] [phone] Heber Phillips MD [facility] DR HEMATOLOGY [place] [address] Isabella Baker APRN [facility] [place] [address] documented as of this encounter Procedures Procedure [...] on filedocumented in this encounter Care Teams Online Merchandiser Relationship Specialty Start Date End Date Nataliya Messina MD [address] [place] [address] [address] [facility] 1 [place] [address] PCP - General 10/02/11 01/11/22 documented as of this encounter
--- OUTSIDE RECORDS SUMMARY | 2024-02-09 02:19 | XMS_ITS | Encounter Summary ---
Author Organization [facility] Address [facility] [place] [address] Care Team Providers Care Bisque Ware Dipper Name Role Phone Nataliya Messina MD Primary Care Provider [phone] Encounter Details Date Type Department Care Team (Latest Contact Info) Description 09/13/2013 7:57 AM EDT - 09/13/2013 11:59 PM EDT Hospital Encounter ZLE[facility] [address] [place] [id number] Rivas Montesinos MD [facility] [address] Discharge Disposition: Home Social History Tobacco Use [...] AM EDT Office Visit Hematology/Oncology at [address] [phone] Heber Phillips MD [facility] DR [place] [address] Isabella Baker APRN [facility] [place] [address] documented as of this encounter Procedures Procedure Name Priority Date/Time Associated Diagnosis Comments CK-MB STUDY Routine 09/13/2013 9:50 AM EDT CK-MB STUDY Routine 09/13/2013 4:13 AM EDT documented in this encounter Results * (ABNORMAL) CK-MB Study (09/13/2013 9:50 AM EDT) Creatine Kinase 300(H) 0 - 200 unit/L CERNER MILLENNIUM CK-MB 27.6(H) 0.0 - 5.0 mcg/L CERNER MILLENNIUM CKMB Index 9.2(H) 0.0 - 5.0 mcg/u CERNER MILLENNIUM Blood specimen (specimen) 09/13/2013 9:50 AM EDT 09/13/2013 11:08 AM EDT Narrative Resulting Agency Comment Spec In Lab Rivas Rivero MD CHEMISTRY ORDERABLES CERNER MILLENNIUM * (ABNORMAL) CK-MB Study (09/13/2013 4:13 AM EDT) Creatine Kinase 339(H) 0 - 200 unit/L CERNER MILLENNIUM CK-MB 33.4(H) 0.0 - 5.0 mcg/L CERNER MILLENNIUM CKMB Index 9.9(H) 0.0 - 5.0 mcg/u CERNER MILLENNIUM Blood specimen (specimen) 09/13/2013 4:13 AM EDT 09/13/2013 8:14 AM EDT Narrative Resulting Agency Comment Spec In Lab Rivas Rivero MD CHEMISTRY ORDERABLES Performing Organization Address City/State/[facility] Co de Phone Number CERNER МАРИЯENNIUM documented in this encounter Visit Diagnoses Not on filedocumented in this encounter Care Teams Bisque Ware Dipper Relationship Specialty Start Date End Date Nataliya Messina MD [address] [place] [address] PCP - General 10/02/11 01/11/22 documented as of this encounter
--- OUTSIDE RECORDS SUMMARY | 2024-02-09 02:19 | XMS_ITS | Encounter Summary ---
Author Organization [facility] Address [facility] [place] [address] Care Team Providers Care Minibus Driver Name Role Phone Nataliya Messina MD Primary Care Provider [phone] Encounter Details Date Type Department Care Team (Late st Contact Info) Description 02/20/2014 3:00 PM EDT Follow-[place] [phone] Mitch Wing APRN [facility] [place] [address] PAD (peripheral artery disease) (Primary Dx); Carotid [...] in this encounter Progress Notes * Mitch Wing APRN - 02/20/2014 2:23 PM EDT F/u [...] ND, no palpable pulsatile masses Extremity - [place], warm, no ulceration, brisk capillary refill, no [...] 118 Dorsalis Pedis (Ankle) Artery 76 0.64 [place]-Biphasic Posterior Tibial (Ankle) Artery 90 0.76 [place]-Biphasic Left Pressure (mm Hg) NALDO Waveform Brachial [...] AM EDT Office Visit Hematology/Oncology at [address] [phone] Heber Phillips MD [facility] DR HEMATOLOGY [place] [address] Isabella Baker APRN [facility] [place]ICAL [place] [address] documented as of this encounter Results * NALDO, legs, multiple levels (10/15/2014 12:30 PM EDT) VB Text Report Department: Vascular Surgery Lab Patient: [id number] (BRITTA SAEED) CPT Code: 25252 ICD-9: 440.21 Referring Physician: KRISTAN PATRICK Indication: [...] ? Dorsalis Pedis (Ankle) Artery ?95 ?0.72 ??[place]-Biphasic ?? Posterior Tibial (Ankle) Artery ??94 ?0.71 [...] Text Report Department: Vascular Surgery Lab Patient: [id number] (BRITTA SAEED) CPT Code: 57331 ICD-9: 447.1 Referring Physician: KRISTAN PATRICK Indication: [...] infarction documented in this encounter Care Teams Minibus Driver Relationship Specialty Start Date End Date Nataliya Messina MD [address] [facility] [address] [facility] [address] [facility] 1 [place] [address] PCP - General 10/02/11 01/11/22 documented as of this encounter
--- OUTSIDE RECORDS SUMMARY | 2024-02-09 02:19 | XMS_ITS | Encounter Summary ---
[place] [address] Care Team Providers Care Service Counter Cashier Name Role Phone Nataliya Messina MD Primary Care Provider [phone] Encounter Details Date Type Department Care Team (Latest Contact Info) Description 10/15/2014 12:30 PM EDT Ancillary Appointment [place] [phone] [place] PAD (peripheral artery disease); Carotid stenosis, [...] AM EDT Office Visit Hematology/Oncology at [address] [address] Heber Phillips MD [facility] DR [place] [address] Isabella Baker APRN [facility] [place] [address] documented as of this encounter Procedures Procedure Name Priority Date/Time Associated Diagnosis Comments NALDO, LEGS, MULTIPLE LEVELS Routine 10/15/2014 12:30 PM EDT PAD (peripheral artery disease) CAROTID DUPLEX, BILATERAL Routine 10/15/2014 12:30 PM EDT Carotid stenosis, bilateral documented in this encounter Results * Cerebrovascular Duplex, Bilateral (10/15/2014 12:30 PM EDT) VB Text Report Department: Vascular Surgery Lab Patient: [id number] (BRITTA SAEED) CPT Code: 83992 ICD-9: 447.1 Referring Physician: KRISTAN PATRICK Indication: [...] Text Report Department: Vascular Surgery Lab Patient: [id number] (BRITTA SAEED) CPT Code: 18465 ICD-9: 440.21 Referring Physician: KRISTAN PATRICK Indication: [...] ? Dorsalis Pedis (Ankle) Artery ?95 ?0.72 ??[place]-Biphasic ?? Posterior Tibial (Ankle) Artery ??94 ?0.71 [...] infarction documented in this encounter Care Teams Service Counter Cashier Relationship Specialty Start Date End Date Nataliya Messina MD [address] [place] [address] [address] [facility] 1 [place] [address] PCP - General 10/02/11 01/11/22 documented as of this encounter
--- OUTSIDE RECORDS SUMMARY | 2024-02-09 02:19 | XMS_ITS | Encounter Summary ---
Author Organization [facility] Address [facility] [place] [address] Care Team Providers Care Farm Laborer Name Role Phone Nataliya Messina MD Primary Care Provider [phone] Encounter Details Date Type Department Care Team (Late Contact Info) Description 09/17/2015 Telephone Cardiology at [address] [phone] Zita Brennan Social History Tobacco [...] AM EDT Office Visit Hematology/Oncology at [address] [phone] [facility] [place]ATOLOGY [place] [address] [facility] [place] [address] documented as of this encounter Visit Diagnoses Not on filedocumented in this encounter Care Teams Farm Laborer Relationship Specialty Start Date End Date Nataliya Messina MD [address] [place] [address] [address] [facility] 1 [place] [address] PCP - General 10/02/11 01/11/22 documented as of this encounter
--- OUTSIDE RECORDS SUMMARY | 2024-02-09 02:19 | XMS_ITS | Encounter Summary ---
Author Organization [facility] [place] [address] Care Team Providers Care Mixed Livestock Farmer Name Role Phone Nataliya Messina MD Primary Care Provider [phone] Reason for Visit * Reason Comments Coronary Artery Disease Was admitted [facility] in august and had cath and stent and then was readmitted last week for angina and had a cath and another stent placed. Encounter Details Date Type Department Care Team (Late st Contact Info) Description 10/16/2013 9:30 AM EDT Office Visit Cardiology at [address] [phone] Lauri Winn Jr., MD [address] [place] [phone] ASCVD (arteriosclerotic cardiovascular disease) (Primary Dx) Social [...] AM EDT Office Visit Hematology/Oncology at [address] [phone] Heber Phillips MD [facility] DR HEMATOLOGY [place] [address] Isabella Baker APRN [facility] [place] [address] documented as of this encounter Visit Diagnoses Diagnosis ASCVD (arteriosclerotic cardiovascular disease)- Primary Unspecified cardiovascular disease documented in this encounter Care Teams Mixed Livestock Farmer Relationship Specialty Start Date End Date Nataliya Messina MD [address] [place] [address] PCP - General 10/02/11 01/11/22 documented as of this encounter
--- OUTSIDE RECORDS SUMMARY | 2024-02-09 02:19 | XMS_ITS | Encounter Summary ---
Author Organization [facility] [place] [address] Care Team Providers Care Slps Name Role Phone Nataliya Messina MD Primary Care Provider [phone] Reason for Visit * Reason Comments Follow-up 2 MONTH F/U ASCVD, s tents, c/o bruising, has had numbness over L chest area about 4 times that lasts only seconds and never occurs with exertion Encounter Details Date Type Department Care Team (Late st Contact Info) Description 12/11/2013 9:30 AM EDT Follow-Up Cardiology at [address] [phone] Lauri Winn Jr., MD [address] [place] [phone] ASCVD (arteriosclerotic cardiovascular disease) (Primary Dx) Social [...] AM EDT Office Visit Hematology/Oncology at [address] [phone] Heber Phillips MD [facility] DR [place] [address] Isabella Baker APRN [facility] [place] [address] documented as of this encounter Visit Diagnoses Diagnosis ASCVD (arteriosclerotic cardiovascular disease)- Primary Unspecified cardiovascular disease documented in this encounter Care Teams Slps Relationship Specialty Start Date End Date Nataliya Messina MD [address] [place] [address] PCP - General 10/02/11 01/11/22 documented as of this encounter
--- OUTSIDE RECORDS SUMMARY | 2024-02-09 02:19 | XMS_ITS | Encounter Summary ---
Author Organization [facility] [address] Care Team Providers Care Manager Of Internal Audit Name Role Phone Nataliya Messnia MD Primary Care Provider [phone] Reason for Visit * Reason Comments Follow-up feeling good; occ sh isis chest pain; has taken Nitro; not sure how necessary it was; walking as much as possible Encounter Details Date Type Department Care Team (Late st Contact Info) Description 06/18/2014 9:00 AM EST Follow-Up Cardiology at [address] [phone] Lauri Winn Jr., MD [address] [place] [phone] ASCVD (arteriosclerotic cardiovascular disease) Social History Tobacco [...] AM EDT Office Visit Hematology/Oncology at [address] [phone] Heber Phillips MD [facility] DR [place] [address] Isabella Baker APRN [facility] [place] [address] documented as of this encounter Visit Diagnoses Diagnosis ASCVD (arteriosclerotic cardiovascular disease) Unspecified cardiovascular disease documented in this encounter Care Teams Manager Of Internal Audit Relationship Specialty Start Date End Date Nataliya Messina MD [address] [place] [address] PCP - General 10/02/11 01/11/22 documented as of this encounter
--- OUTSIDE RECORDS SUMMARY | 2024-02-09 02:19 | XMS_ITS | Encounter Summary ---
Author Organization [facility] Address [facility] [place] [address] Care Team Providers Care Packer Dried Beef Name Role Phone Nataliya Messina MD Primary Care Provider [phone] Reason for Visit * Reason Comments Carotid Stenosis Circulatory Problem PVD Encounter Details Date Type Department Care Team (Late st Contact Info) Description 10/07/2015 4:00 PM EDT Office Visit [place] [address] Ortega Patrick MD [facility] [place] [address] Bilateral carotid artery stenosis; PVD (peripheral vascular [...] AM EDT Office Visit Hematology/Oncology at [address] [phone] Heber Phillips MD [facility] HEMATOLOGY [place] [address] Isabella Baker APRN [facility] [place] [address] documented as of this encounter Visit Diagnoses Diagnosis Bilateral carotid artery stenosis Occlusion and stenosis of multiple and bilateral precerebral arteries without mention of cerebral infarction PVD (peripheral vascular disease) Peripheral vascular disease, unspecified documented in this encounter Care Teams Packer Dried Beef Relationship Specialty Start Date End Date Nataliya Messina MD [address] [place] [address] PCP - General 10/02/11 01/11/22 documented as of this encounter
--- OUTSIDE RECORDS SUMMARY | 2024-02-09 02:19 | XMS_ITS | Encounter Summary ---
Author Organization [facility] Address [facility] [place] [address] Care Team Providers Care Community Relations Representative Name Role Phone Nataliya Messina MD Primary Care Provider [phone] Encounter Details Date Type Department Care Team (Late Contact Info) Description 04/28/2016 External Results Cardiology at [address] [phone] Toña Sanders, RN Social History Tobacco Use Types Packs/Day [...] AM EDT Office Visit Hematology/Oncology at [address] [phone] Heber Phillips MD [facility] [address] [place] [address] Isabella Baker APRN [facility] [place] [address] documented as of this encounter Procedures Procedure Name Priority Date/Time Associated Diagnosis Comments EXTERNAL LIPID LAB RESULTS PANEL Routine 02/05/2016 documented in this encounter Results * Lipid External Results (02/05/2016) Cholesterol, Total 145 mg/dL HDL Cholesterol 36 md/dL LDL Cholesterol 90 mg/dL Triglyceride 129 mg/dL Historical Provider POINT OF CARE TABBY T ORDERABLES documented in this encounter Visit Diagnoses Not on filedocumented in this encounter Care Teams Community Relations Representative Relationship Specialty Start Date End Date Nataliya Messina MD [address] [place] [address] PCP - General 10/02/11 01/11/22 documented as of this encounter
--- OUTSIDE RECORDS SUMMARY | 2024-02-09 02:19 | XMS_ITS | Encounter Summary ---
Author Organization [facility] [address] Care Team Providers Care Box Office Agent Name Role Phone Nataliya Messina MD Primary Care Provider [phone] Reason for Visit * Reason Comments Follow-up 1 year f/u (was supp ose to have been seen in 6 months) Had a sharp pain last week. Takes NTG with relief Encounter Details Date Type Department Care Team (Late st Contact Info) Description 04/29/2015 11:00 AM EST Office Visit Cardiology at [address] [phone] Lauri Winn Jr., MD [address] [place] [address] [phone] ASCVD (arteriosclerotic cardiovascular disease); Essential hypertension; Hyperlipidemia [...] AM EDT Office Visit Hematology/Oncology at [address] [phone] Heber Phillips MD [facility] [place] [address] Isabella Baker APRN [facility] [place] [address] documented as of this encounter Visit Diagnoses Diagnosis ASCVD (arteriosclerotic cardiovascular disease) Unspecified cardiovascular disease Essential hypertension Unspecified essential hypertension Hyperlipidemia Other and unspecified hyperlipidemia documented in this encounter Care Teams Box Office Agent Relationship Specialty Start Date End Date Nataliya Messina MD [address] [place] [address] PCP - General 10/02/11 01/11/22 documented as of this encounter
--- OUTSIDE RECORDS SUMMARY | 2024-02-09 02:19 | XMS_ITS | Encounter Summary ---
Author Organization [facility] [place] [address] Care Team Providers Care Office Technology Professor Name Role Phone Nataliya Messina MD Primary Care Provider [phone] Reason for Referral * Diagnostic Test (Routine) - Specialty Diagnoses / Procedures Referred By Contfatimah t Referred To Contact Procedures NM Myocardial Perfusion Stress Rest Lauri Winn Jr., MD [address] [place] [address] [place] [address] Referral ID Status Reason Start Date Expiration Date Visits Requested Visits Authorized [id number] Specialty Service Requested 05/11/2016 11/07/2016 1 1 Encounter Details Date Type Department Care Team (Late st Contact Info) Description 05/11/2016 10:00 AM EST Ext Surgery or Single Event [facility] [address] [place] [address] Lauri Winn Jr., MD [address], [place] [phone] ESCAMILLA (dyspnea on exertion); ASCVD (arteriosclerotic cardiovascular [...] AM EDT Office Visit Hematology/Oncology at [address] [phone] Heber Phillips MD [facility] [place] [address] Isabella Baker APRN [facility] [place] [address] documented as of this encounter Procedures Procedure Name Priority Date/Time Associated Diagnosis Comments ECG SCAN 05/11/2016 12:00 AM EST NM EXERCISE STRESS AND REST MYOCARDIAL PERFUSION Routine 05/11/2016 documented in this encounter Results * NM Myocardial Perfusion Stress Rest (05/11/2016) Anatomical Region Laterality Modality Other Narrative 05/11/2016 MIBI Exercise Stress Test- Final Report ?? Hieu Tillman : 1955 [facility], [address] [place] [address] Primary Physician: ??Nataliya Messina MD ??Indication: dyspnea [...] Spect-normal Electronically signed: Lauri Winn Jr, MD [facility] ??Date: 05/11/2016 Historical Provider MD STRANGE NM ORDERABLES * SCAN DOC: ECG (05/11/2016 12:00 AM EST) Scanning Provider MEDIA MGR SCAN EXT O RDR/RSLT documented in this encounter Visit Diagnoses Diagnosis ESCAMILLA (dyspnea on exertion) Other dyspnea and respiratory abnormality ASCVD (arteriosclerotic cardiovascular disease) Unspecified cardiovascular disease documented in this encounter Care Teams Office Technology Professor Relationship Specialty Start Date End Date Nataliya Messina MD [address] [place] [address] PCP - General 10/02/11 01/11/22 documented as of this encounter
--- OUTSIDE RECORDS SUMMARY | 2024-02-09 02:19 | XMS_ITS | Encounter Summary ---
[place] [address] Care Team Providers Care Community Arts Worker Name Role Phone Nataliya Messina MD Primary Care Provider [phone] Encounter Details Date Type Department Care Team (Late st Contact Info) Description 05/11/2016 Telephone Cardiology at [address] [phone] Lauri Winn Jr., MD [address] [place], [place] [phone] Social History Tobacco Use Types Packs/Day Years [...] AM EDT Office Visit Hematology/Oncology at [address] [phone] Heber Phillips MD [facility] DR HEMATOLOGY [place] [address] Isabella Baker APRN [facility] [place] [address] documented as of this encounter Visit Diagnoses Not on filedocumented in this encounter Care Teams Community Arts Worker Relationship Specialty Start Date End Date Nataliya Messina MD [address] [place] [address] [address] [place] [address] PCP - General 10/02/11 01/11/22 documented as of this encounter
--- OUTSIDE RECORDS SUMMARY | 2024-02-09 02:19 | XMS_ITS | Encounter Summary ---
Author Organization [facility] Address [facility] [place] [address] Care Team Providers Care Diesel Pile Driver Operator Name Role Phone Nataliya Messina MD Primary Care Provider [phone] Encounter Details Date Type Department Care Team (Late Contact Info) Description 01/01/2015 External Results Cardiology at [address] [phone] Toña Sanders, RN Social History [...] AM EDT Office Visit Hematology/Oncology at [address] [phone] Heber Phillips MD [facility] [address] HEMATOLOGY [place] [address] Isabella Baker APRN [facility] [place] [address] documented as of this encounter Procedures Procedure Name Priority Date/Time Associated Diagnosis Comments EXTERNAL LIPID LAB RESULTS PANEL Routine 07/10/2014 documented in this encounter Results * Lipid External Results (07/10/2014) Cholesterol, Total 132 mg/dL HDL Cholesterol 33 md/dL LDL Cholesterol 76 mg/dL Triglyceride 145 mg/dL Historical Provider POINT OF CARE TABBY T ORDERABLES documented in this encounter Visit Diagnoses Not on filedocumented in this encounter Care Teams Diesel Pile Driver Operator Relationship Specialty Start Date End Date Nataliya Messina MD [address] [place] [address] PCP - General 10/02/11 01/11/22 documented as of this encounter
--- OUTSIDE RECORDS SUMMARY | 2024-02-09 02:19 | XMS_ITS | Encounter Summary ---
Author Organization [facility] Address [facility] [place] [address] Care Team Providers Care Foster Care Social Worker Name Role Phone Nataliya Messina MD Primary Care Provider [phone] Encounter Details Date Type Department Care Team (Latest Contact Info) Description 10/09/2013 4:31 PM EDT - 10/09/2013 11:59 PM EDT Hospital Encounter [facility] [address] [place] [id number] Rivas Montesinos MD [facility] [place] [address] Discharge Disposition: Home Social History Tobacco Use [...] AM EDT Office Visit Hematology/Oncology at [address] [phone] Heber Phillips MD [facility] DR [place] [address] Isabella Baker APRN [facility] [place] [address] documented as of this encounter Procedures Procedure Name Priority Date/Time Associated Diagnosis Comments CK-MB STUDY STAT 10/09/2013 3:55 PM EDT documented in this encounter Results * CK-MB Study (10/09/2013 3:55 PM EDT) Creatine Kinase 89 0 - 200 unit/L CERNER MILLENNIUM CK-MB 2.5 0.0 - 5.0 mcg/L CERNER MILLENNIUM CKMB Index 2.8 0.0 - 5.0 mcg/u CERNER MILLENNIUM Blood specimen (specimen) 10/09/2013 3:55 PM EDT 10/09/2013 4:35 PM EDT Narrative Resulting Agency Comment Spec In Lab Rivas Rivero MD CHEMISTRY ORDERABLES BRYN SANCHEZ documented in this encounter Visit Diagnoses Not on filedocumented in this encounter Care Teams Foster Care Social Worker Relationship Specialty Start Date End Date Nataliya Messina MD [address] [facility] [address] [place] [address] PCP - General 10/02/11 01/11/22 documented as of this encounter
--- OUTSIDE RECORDS SUMMARY | 2024-02-09 02:19 | XMS_ITS | Encounter Summary ---
[place] [address] Care Team Providers Care Wood Turning Lathe Operator Name Role Phone Nataliya Messina MD Primary Care Provider [phone] Encounter Details Date Type Department Care Team (Late st Contact Info) Description 08/20/2014 10:30 AM EST Office Visit Cardiology at [address] [phone] Rafael Foote Exam for clinical research; CAD [...] the Treatment of Subjects with de rupal [place] Coronary Artery Lesions One Year Clinical Follow-up PI: Rivas Montesinos MD Pager #:[phone] Research Coordinators: ANIYA Pickering, BA Pager #:[phone] Chacorta Sheikh RN Pager #: [phone] Purpose: The pivotal trial to support the [place] pre-market approval (PMA) of Absorb BVS. ABSORB III will evaluate the safety and effectiveness of the Absorb BVS System compared to the XIENCE in the treatment of subjects, including those with diabetes mellitus, with ischemic heart disease caused by up to two denovo round valley coronary artery lesions in separate epicardial vessels. Study Design: A prospective, randomized (2:1 ABSORB BVS to XIENCE), single-blind, multi-center trial registering ~2250 patients. Subject Study ID #: [id number], JMF The subject returns today approximately 1 [...] AM EDT Office Visit Hematology/Oncology at [address] [phone] Heber Phillips MD [facility] DR HEMATOLOGY [place] [address] Isabella Baker APRN [facility] [place] [address] documented as of this encounter Procedures Procedure [...] (Bezet) 440 ms MUSE SYSTEM Calculated P Nebo 71 degrees MUSE SYSTEM Calculated R Nebo 72 degrees MUSE SYSTEM Calculated T Nebo 84 degrees MUSE SYSTEM INTERPRETATION Normal sinus rhythm Otherwise normal ECG When compared with ECG of 11-OCT-2013 08:27, No significant change was found I personally reviewed the tracing and edited the fellows interpretation Confirmed by fellow Nelly Antunez ([id number]) on 08/20/2014 12:25:28 PM Confirmed by MD CHRISTY, STEVO ([id number]) on 08/20/2014 2:32:29 PM MUSE SYSTEM 08/20/2014 10:2 2 AM EST 08/20/2014 2:32 PM EST Stevo Dalton MD ECG ORDERABLES MUSE SYSTEM documented in this encounter Visit Diagnoses Diagnosis Exam for clinical research Examination of participant in clinical trial CAD (coronary artery disease) Coronary atherosclerosis of unspecified type of vessel, round valley or graft documented in this encounter Care Teams Wood Turning Lathe Operator Relationship Specialty Start Date End Date Nataliya Messina MD [address] [place] [address] PCP - General 10/02/11 01/11/22 documented as of this encounter
--- OUTSIDE RECORDS SUMMARY | 2024-02-09 02:19 | XMS_ITS | Encounter Summary ---
Author Organization [facility] [place] [address] Care Team Providers Care Wardrobe Supervisor Name Role Phone Nataliya Messina MD Primary Care Provider [phone] Encounter Details Date Type Department Care Team (Latest Contact Info) Description 10/07/2015 2:08 PM EDT - 10/07/2015 11:59 PM EDT Hospital Encounter [place] [address] Vianca Castillo [place] Stenosis of carotid artery; [...] AM EDT Office Visit Hematology/Oncology at [address] [phone] Heber Phillips MD [facility] DR [place] [address] Isabella Baker APRN [facility] [place] [address] documented as of this encounter Procedures Procedure Name Priority Date/Time Associated Diagnosis Comments NALDO, LEGS, MULTIPLE LEVELS Routine 10/07/2015 2:39 PM EDT PVD (peripheral vascular disease) CAROTID DUPLEX, BILATERAL Routine 10/07/2015 2:39 PM EDT Stenosis of carotid artery documented in this encounter Results * NALDO, legs, multiple levels (10/07/2015 2:39 PM EDT) VB Text Report Department: Vascular Surgery Lab Patient: [id number] (BRITTA SAEED) CPT: 84450 ICD10: I73.9 Referring Physician: KRISTAN PATRICK ?? Indications: ??F/U PAD, ? interval change Diabetes mellitus: No ICD10 Diagnosis Code: I73.9 Findings: Right ?Pressure (mm Hg) ?? NALDO ??Waveform ? Brachial Artery ?120 ? Dorsalis Pedis (Ankle) Artery ?77 ?0.63 ??Harford-Biphasi c ?? Posterior Tibial (Ankle) Artery ??88 ?0.72 ??Harford-Biphasi c ?? Left ? Pressure (mm Hg) ?? NALDO ??Waveform ? Brachial Artery ?123 ? Dorsalis Pedis (Ankle) Artery ?79 ?0.64 ??Harford-Biphasi c ?? Posterior Tibial (Ankle) Artery ??90 ?0.73 ??Harford-Biphasi c ?? Interpretation : RIGHT: Mild to [...] Text Report Department: Vascular Surgery Lab Patient: [id number] (BRITTA SAEED) CPT: 44749 ICD10: I65.29 Referring Physician: KRISTAN PATRICK ?? [...] unspecified documented in this encounter Care Teams Wardrobe Supervisor Relationship Specialty Start Date End Date Nataliya Messina MD [address] [facility] [facility] [address] [facility] [address] [place] [address] PCP - General 10/02/11 01/11/22 documented as of this encounter
--- OUTSIDE RECORDS SUMMARY | 2024-02-09 02:19 | XMS_ITS | Encounter Summary ---
Author Organization [place] [address] Care Team Providers Care Operations Executive Name Role Phone Nataliya Messina MD Primary Care Provider [phone] Reason for Visit * Reason Comments Follow-up 1 year f/u ASCVD, Morales s had 3 episodes of SOB with exertion. No CP but heavy breathing. Was incontinent or had to urinate right away with these episodes Encounter Details Date Type Department Care Team (Late st Contact Info) Description 04/30/2016 9:30 AM EST Office Visit Cardiology at [address] [phone] Lauri Winn Jr., MD [address] [place] [phone] ASCVD (arteriosclerotic cardiovascular disease); SOB (shortness of [...] AM EDT Office Visit Hematology/Oncology at [address] [phone] Heber Phillips MD [facility] [place] [address] Isabella Baker APRN [facility] [place] [address] documented as of this encounter Procedures Procedure [...] hypercholesterolemia documented in this encounter Care Teams Operations Executive Relationship Specialty Start Date End Date Nataliya Messina MD [address] [place] [address] PCP - General 10/02/11 01/11/22 documented as of this encounter
--- OUTSIDE RECORDS SUMMARY | 2024-02-09 02:19 | XMS_ITS | Encounter Summary ---
Author Organization [place] [address] Care Team Providers Care Contracting Manager Name Role Phone Edin Messina MD Primary Care Provider [phone] Reason for Referral * (Routine) - Closed by system - Referral Specialty Diagnoses / Procedures Referred By Contac t Referred To Contact Cardiac Rehabilitation Diagnoses S/P coronary artery stent placement Mila Mccall MD [facility] [place] [address] Referral ID Status Reason Start Date Expiration Date Visits Requested Visits Authorized [id number] Closed by system - Referral Evaluate and Treat 10/11/2013 04/09/2014 1 1 Encounter Details Date Type Department Care Team (Latest Contact Info) Description 10/09/2013 2:43 PM EDT - 10/11/2013 12:32 PM EDT Hospital Encounter Intermediate [place] [address] Mila Mccall MD [facility] [place] [address] Chest pain; Angina at rest; CAD (coronary [...] appointments: During 8am-5pm Wednesday through Wednesday call [phone] to speak with a nurse in the cardiology clinic All other times call [phone] and ask to speak to the safety engineer pulmonary disease specialist. Return to work: One week Driving: No driving for 48 hours after catheterization. Follow up Appointments: PCP EDIN MESSINA MD to see you on October 18 at 240 pm. Please call [phone] Lauri Winn to see you in [place] on WednesdayOctober 16 at 930 am as previously arranged. Please call his office at [phone]. Home oxygen therapy: N/A Arrangements for VNA/home care: none * Attachments The following attachments cannot be sent through Care Everywhere. * PCI (PERCUTANEOUS CORONARY INTERVENTION) : GENERAL INFO (MONEGASQUE) documented in this encounter Medications at Time [...] Progress Note Patient Name: Hieu Tillman Service: FANCY STITCHER / PA Responsible Attending: Mila Mccall MD [...] COPD and carotid disease who presents to [facility] in transfer from [facility] on 10/09 with atypical chest discomfort [...] Mccall MD KELLY H LAFLAMME, PA Pager [phone] 10/11/2013 Attending Addendum I personally conducted comprehensive [...] secondary prevention regiment. I am a credentialed events specialist at [facility] and I am the attending of record for the patient's admission. I certify that this patient meets or has met the criteria for inpatient treatment for their acute condition meeting a minimum of two midnights. The acute conditions are detailed above Mila Mccall MD Staff Habitat Conservation Planner Pager: [phone] * Nelly Antunez - 10/10/2013 9:54 PM [...] pulses are palpable. Nelly Antunez MD # [id number] * Remi Sky RN - 10/10/2013 11:46 AM EDT Office of Care Management (OCM) / Clinical Implementation Services Analyst (CRC)/ Initial Assessment Discussed patient with Provider [...] Has five childen who all live in [facility]. ADVANCE DIRECTIVES: Pt reports he and his are working on their AD at home. Not complete at this time. HEALTH /PRESCRIPTION COVERAGE: [place] [employer]. No financial concerns expressed at this time. CURRENT HOME/COMMUNITY SERVICES/EQUIPMENT: DME: None Home Health Agency: None Other: TELEPHONE COLLECTOR REFERRAL: Notified TELEPHONE COLLECTOR - for Support/Financial/Medication Assistance; See TELEPHONE COLLECTOR notes for further needs. PRIMARY CARE PHYSICIAN: EDIN MESSINA MD [address] / [facility] [address] POTENTIAL DISCHARGE NEEDS: None ID at this [...] planning while hospitalized Remi KWAN, RN Clinical Implementation Services Analyst Pager [phone] * Mila Mccall MD - 10/10/2013 11:19 AM EDT Images from the original note were not included. Inpatient Cardiology Progress Note Patient Name: Hieu Tillman Service: FANCY STITCHER / PA Responsible Attending: Mila Mccall MD [...] scar. Left ventricular function is normal. Assessment: Hiue Tillman is a 58 y.o. male with a history of ASCVD s/p stent to the LCx, PVD, HTN, HLD, COPD and carotid disease who presents to [facility] in transfer from [facility] on 10/09 with atypical chest discomfort [...] his chest pain. Mila Mccall MD Staff Habitat Conservation Planner Pager: [phone] I am a credentialed events specialist at [facility] and I am the attending of record [...] nicotine patch) who was sent to the [facility] ED today after having chest pressure [...] Social History Narrative Lives with his in [place], [place]. 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 [...] MD Provider: ANITHA CARLOS APRN Provider #: [id number] 10/09/2013 Attending Addendum I personally conducted comprehensive [...] stress test tomorrow. I am a credentialed events specialist at [facility] and I am the attending of record for the patient's admission. I certify that this patient meets or has met the criteria for inpatient treatment for their acute condition meeting a minimum of two midnights. The acute conditions are detailed above Mila Mccall MD Staff Habitat Conservation Planner Pager: [phone] documented in this encounter Procedure Notes * Provider, Scanning - 10/17/2013 11:49 AM EDTAssociated Order(s): CARDIAC CATHETERIZATION * Provider, Scanning - 10/15/2013 10:32 AM EDTAssociated Order(s): SCAN DOC: CROCHET MACHINE OPERATOR * Provider, Scanning - 10/12/2013 12:09 PM EDTAssociated Order(s): SCAN DOC: CROCHET MACHINE OPERATOR * Provider, Scanning - 10/10/2013 [...] Is currently enrolled in cardiac rehab @ [facility]; will return Activity Summary: By discharge, [...] Hieu Tillman Patient Age: 58 y.o. Language: Spanish Race: White Ethnicity: Not nor Admit date: 10/09/2013 Discharge date and time: 10/11/2013 11:37 AM Attending Physician: Mila Mccall MD Discharge Physician: iMla Mccall MD Follow-up Recommendations for Providers: Continue to encourage smoking cessation Follow up on left groin site Inpatient Provider Contact Information: ANITHA Panda CARLOS, OPERATING SYSTEM DESIGNER [phone] Discharge Diagnoses (Hospital Problems) and Secondary Diagnoses [...] nicotine patch) who was sent to the [facility] ED today after having chest pressure [...] normal self. He arrives pain free from [facility]. Hospital Course: Angina The nature of [...] appointments: During 8am-5pm Wednesday through Wednesday call [phone] to speak with a nurse in the cardiology clinic All other times call [phone] and ask to speak to the safety engineer pulmonary disease specialist. Return to work: One week Driving: No driving for 48 hours after catheterization. Follow up Appointments: PCP EDIN MESSINA MD to see you on October 18 at 240 pm. Please call [phone] Lauri Winn to see you in [place] on WednesdayOctober 16 at 930 am as previously arranged. Please call his office at [phone]. Home oxygen therapy: N/A Arrangements for VNA/home care: none Future Appointments and Orders Future Appointments: Provider: Department: Dept Phone: Center: 10/16/2013 9:30 AM Lauri Winn Jr., MD [place] [facility] [phone] None Future Orders Please Complete By Expires Referral to Cardiac Rehab [[id number] Custom] Process Instructions: If no progress note charted, please enter Clinical details in comments. Scheduling Instructions: Comments: Return to cardiac rehab @ [facility] Questions: Responses: Reason for referral angina,stent Discharge References/Attachments None MILA MCCALL MD >30 minutes were spent on this inpatient discharge. * Miscellaneous - Provider, Wandy - 10/09/2013 2:57 PM EDT documented in this encounter Plan of Treatment Upcoming Encounters Date Type Department Care Team (Late st Contact Info) Description 03/28/2024 10:00 AM EDT Office Visit Hematology/Oncology at [address] [phone] Heber Phillips MD [facility] [address] [place] [address] Isabella Baker APRN [facility] [place] [address] Scheduled Orders Name Type Priority Associated Diagnoses [...] CARDIAC CATHETERIZATION Routine 12/06/19 10:49 AM EDT CROCHET MACHINE OPERATOR SCAN 10/15/2013 10:32 AM EDT CROCHET MACHINE OPERATOR SCAN 10/12/2013 12:09 PM EDT EKG 12-LEAD Routine 10/11/2013 8:27 AM EDT Chest pain BMP W/FASTING GLUCOSE Routine 10/11/2013 5:19 AM EDT SCAN, PERIPHERAL BLOOD Routine 4 5:19 AM EDT DIFFERENTIAL, AUTOMATED Routine 10/12/19 14 5:19 AM EDT CARDIAC ENZYMES ([facility]/CGP) Routine 10/11/2013 5:19 AM EDT CBC (WITH DIFF) Routine 10/11/2013 5:19 AM EDT LIPID PANEL (REFLEX DIRECT LDL) Routine 10/11/2013 5:19 AM EDT EKG 12-LEAD Routine 10/10/2013 4:00 PM EDT CAD (coronary artery disease) CARDIAC ENZYMES ([facility]/CGP) STAT 10/10/2013 4:00 PM EDT EKG 12-LEAD [...] Routine 10/10/2013 Angina at rest CARDIAC ENZYMES ([facility]/CGP) STAT 10/09/2013 9:41 PM EDT MISCELLANEOUS LAB REQUEST Routine 10/09/2013 3:55 PM EDT CARDIAC ENZYMES ([facility]/CGP) STAT 10/09/2013 3:55 PM EDT EKG 12-LEAD STAT 10/09/2013 3:22 PM EDT Chest pain documented in this encounter Results * Cardiac Catheterization (12/05/2020 10:49 AM EDT) Anatomical Region Laterality Modality Other Narrative 12/05/2020 10:49 AM EDT ?[facility] ? Cardiac Catheterization/Intervention Report ? Patient Name: Hieu Tillman. ? Procedure Date: 10/10/2013 ? A #: [id number] ? Primary Physician: Stevo Dalton ? Case #: [id number] ? File Name: [id number] ? Catheterization Order Number: [id number] ? [facility] ? Final Report [place], [place] ? Patient Name: ? Hieu Tillman ? ID#: ?[id number] ? : ?1955 ? Procedure Date: ? [...] Catheterization ?* Coronary Ultrasound ?* Coronary Flow [place] Measurement (FFR) ?* Coronary Angioplasty ?* Coronary [...] Class IV. ? Indications for Diagnostic Cath: ?[place] Cardiovascular Society angina class was IV. ? [...] Fr EBU 4.0 guide ? utilizing an [place] 12 mm balloon with a maximum size [...] ??The lesion was predilated with a 2.50mm [place] 12 mm ? balloon with a maximum inflation pressure of 16 atmospheres. ? A premounted 3.00 x 20 mm Promus Premier (MISTY) was deployed ? with a maximum inflation pressure of 16 atmospheres. ? Following stent deployment, the lesion was dilated using a ? 3.50mm NC Quantum Onslow 12 mm balloon with a maximum inflation [...] performed in the circumflex vessel using a [employer] eye ?catheter. This showed the stent was [...] Procedure Note Stevo Dalton MD - 12/05/2020 [facility] Cardiac Catheterization/Intervention Report Patient Name: Hieu Tillman Procedure Date: 10/10/2013 A #: [id number] Primary Physician: Stevo Dalton Case #: [id number] File Name: [id number] Catheterization Order Number: [id number] [facility] FinalReport [place], [place] Patient Name: Hieu Tillman ID#:[id number] :1955 Procedure Date: October 10, 2013 Case #: [id number] Room: 5 Case Physician: Stevo Dalton M.D. Start: 14:25 Fellow: José Miguel Gong M.D. Admission:10/09/2013 Discharge:10/11/2013 Referring Edin Messina M.D. Physicians: Joshua Kumari M.D. Procedures: * Coronary Angiography * Left Heart Catheterization * Coronary Ultrasound * Coronary Flow Grand Ridge Measurement (FFR) * Coronary Angioplasty * Coronary [...] ASA Class IV. Indications for Diagnostic Cath: [place] Cardiovascular Society angina class was IV. Technique: [...] 6 Fr EBU 4.0 guide utilizing an [place]slow 12 mm balloon with a maximum size [...] The lesion was predilated with a 2.50mm [place] 12mm balloon with a maximum inflation pressure of 16atmospheres. A premounted 3.00 x 20 mm Promus Premier (MISTY) wasdeployed with a maximum inflation pressure of 16 atmospheres. Following stent deployment, the lesion was dilated usinga 3.50mm NC Quantum Onslow 12 mm balloon with a maximuminflation pressure [...] two area of the circumflex vessel with Coferon FFR wire. Initially the main circumflex was [...] performed in the circumflex vessel using a [employer]e catheter. This showed the stent was well [...] CARDIAC CATH ORDERAB LES * SCAN DOC: CROCHET MACHINE OPERATOR (10/15/2013 10:32 AM EDT) Anatomical Region Laterality Modality Other Narrative 10/15/2013 10:35 AM EDT Procedure Note Provider, Scanning - 10/15/2013 10:32 AM EDT Scanning Provider MEDIA MGR SCAN EXT O RDR/RSLT * SCAN DOC: CROCHET MACHINE OPERATOR (10/12/2013 12:09 PM EDT) Anatomical [...] (Bezet) 440 ms MUSE SYSTEM Calculated P [place] 71 degrees MUSE SYSTEM Calculated R [place] 67 degrees MUSE SYSTEM Calculated T [place] 73 degrees MUSE SYSTEM INTERPRETATION Normal sinus [...] Mila Mccall MD HEMATOLOGY ORDERABLE S BRYN HSEIHENNIUM * Scan, Peripheral Blood (10/11/2013 5:19 AM EDT) Plat estimate Normal CERNER MILLENNIUM RBC Morphology Normal CERNE R MILLENNIUM Blood specimen (specimen) 10/11/2013 5:19 AM EDT 10/11/2013 5:35 AM EDT Narrative Resulting Agency Comment Spec In Lab Mila Mccall MD HEMATOLOGY ORDERABLE S Performing Organization Address City/[facility]/ZIP Co de Phone Number BRYN HSIEHENNIUM * (ABNORMAL) CBC (with Diff) (10/11/2013 [...] of Diabetes Mellitus, Position Statement from the [place] Diabetes Association. ??Diabetes Care, Volume 33, Supplement 1, Jun 2009 Blood Urea Nitrogen 23(H) 10 - 20 mg/dL CERNER MILLENNIUM Creatinine 0.99 0.80 - 1.50 mg/dL CERNER MILLENNIUM Comment: Please note that the pediatric reference intervals supplied above were not validated at [facility]. Results from pediatric patients should be interpreted [...] Mila Mccall MD CHEMISTRY ORDERABLES [facility] * (ABNORMAL) Lipid panel (fasting) (10/11/2013 5:19 AM EDT) Cholesterol, Total 117 <=199 mg/dL CERNER MILLENNIUM Comment: Recommendations of the NCEP Adult Treatment Panel for the following risk cutoff thresholds for the [place] population: Desirable: <200 mg/dL Borderline High: 200-239 mg/dL High: > or = 240 mg/dL Triglyceride 92 <=149 mg/dL CERNER MILLENNIUM Comment: Reference Range: Normal triglycerides: ??<150 mg/dL Borderline high: ??150-199 mg/dL High: ??200-499 mg/dL Very high: ??>if=471 mg/dL DAO 2001; 285(19):9274-1084 HDL Cholesterol 32(L) >=40 mg/dL CER NER MILLENNIUM Comment: Reference range: ??Low HDL: ?? < 40 mg/dL ??Normal: ?40-60 mg/dL ??Desirable: > 60 mg/dL DAO 2001; 285(19):1256-1055 LDL Cholesterol 67 <=99 mg/dL CER NER MILLENNIUM Comment: Reference range: ?? Optimal: ?<100 mg/dL ?? Near Optimal/Above Optimal: ?? 100-129 mg/dL ?? Borderline high: ?130-159 mg/dL ?? High: ? 160-189 mg/dL ?? Very high: ?>wq=315 mg/dL DAO 2001: 285(19):2635-0897 Cholesterol/HDL Ratio 3.7 ratio BRYN [facility] Comment: A Cholesterol to HDL ratio below 4:1 is desirable. ??Studies suggest that increased CAD risk occurs at ratios above 5 for females and above 6 for men. ? [place] Heart Association ??(http://www.americanheart.org) ? Jeri Int Med, 1994; 121:641 ? AM J Med, 1998; 105(1A):48S Blood specimen (specimen) 10/11/2013 5:19 AM EDT 10/11/2013 5:35 AM EDT Narrative Resulting Agency Comment Spec In Lab Mila Mccall MD CHEMISTRY ORDERABLES BRYN SANCHEZ * Cardiac Enzymes (10/11/2013 5:19 AM EDT) Troponin-T <0.03 <=0.03 ng/mL BRYN МАРИЯSAURABH Comment: 0.03 ng/mL: Represents the 99th percentile upper reference limit for normals. >0.03 ng/mL: Elevated cardiac troponin T level indicative of myocardial damage. Diagnosis of acute, evolving or recent [place] requires a typical rise and gradual fall [...] consensus document of the Joint Society of Cardiology/[place] College of Cardiology Committee for the redefinition of myocardial infarction. ??Journal of the [place] College of Cardiology 2000; 36: 959-969] Creatine Kinase 53 0 - 200 unit/L [facility] [employer] Blood specimen (specimen) 10/11/2013 5:19 AM EDT 10/11/2013 5:35 AM EDT Narrative Resulting Agency Comment Spec In Lab Mila Mccall MD CHEMISTRY ORDERABLES Performing Organization Address [facility] de Phone Number [facility]PPTVL[facility]ERS[facility] * EKG 12 Lead (10/10/2013 4:00 PM EDT) Ventricular rate 78 BPM MUSE SYSTEM Atrial Rate 78 BPM MUSE SYSTEM P-R Interval 154 ms MUSE SYSTEM QRS Duration 80 ms MUSE SYSTEM Q-T Interval 402 ms MUSE SYSTEM QTC Calculated (Bezet) 458 ms MUSE SYSTEM Calculated P [place] 76 degrees MUSE SYSTEM Calculated R [place] 60 degrees MUSE SYSTEM Calculated T [place] 79 degrees MUSE SYSTEM INTERPRETATION Normal sinus rhythm Normal ECG When compared with ECG of 10-OCT-2013 11:12, Non-specific change in ST segment in Lateral leads Nonspecific T wave abnormality no longer evident in Lateral leads Confirmed by Jordon Cook MDence ([id number]) on 10/10/2013 4:50:45 PM MUSE SYSTEM 10/10/2013 4:00 PM EDT 10/10/2013 4:50 PM EDT Mila Mccall MD ECG ORDERABLES Performing Organization Address [facility] de Phone Number MUSE SYSTEM * Cardiac Enzymes (10/10/2013 4:00 PM EDT) Troponin-T <0.03 <=0.03 ng/mL [facility]TV[facility] Comment: 0.03 ng/mL: Represents the 99th percentile upper reference limit for normals. >0.03 ng/mL: Elevated cardiac troponin T level indicative of myocardial damage. Diagnosis of acute, evolving or recent [place] requires a typical rise and gradual fall [...] consensus document of the Joint Society of Cardiology/[place] College of Cardiology Committee for the redefinition of myocardial infarction. ??Journal of the [place] College of Cardiology 2000; 36: 959-969] Creatine Kinase 59 0 - 200 unit/L BRYN [employer] Blood specimen (specimen) 10/10/2013 4:00 PM EDT 10/10/2013 4:15 PM EDT Narrative Resulting Agency Comment Spec In Lab Mila Mccall MD CHEMISTRY ORDERABLES Performing Organization Address City/[facility] Co de Phone Number BRYN DOYLEServis[employer]st Bank * EKG 12 Lead (10/10/2013 11:12 AM EDT) Ventricular rate 82 BPM MUSE SYSTEM Atrial Rate 82 BPM MUSE SYSTEM P-R Interval 154 ms MUSE SYSTEM QRS Duration 82 ms MUSE SYSTEM Q-T Interval 372 ms MUSE SYSTEM QTC Calculated (Bezet) 434 ms MUSE SYSTEM Calculated P [place] 74 degrees MUSE SYSTEM Calculated R [place] 57 degrees MUSE SYSTEM Calculated T [place] 92 degrees MUSE SYSTEM INTERPRETATION Normal sinus [...] Mccall MD ECG ORDERABLES Performing Organization Address City/[facility] Co de Phone Number MUSE SYSTEM * NM [...] (Bezet) 422 ms MUSE SYSTEM Calculated P [place] 74 degrees MUSE SYSTEM Calculated R [place] 66 degrees MUSE SYSTEM Calculated T [place] 81 degrees MUSE SYSTEM INTERPRETATION Normal sinus [...] EDT Mila Mccall MD HEMATOLOGY ORDERABLE S CERRENAN HSIEHENNIUM * (ABNORMAL) CBC (with Diff) (10/10/2013 4:06 AM EDT) White Blood Cell 13.8(H) 4.0 - 10.0 x10(3)/mc L CERNER MILLENNIUM Red Blood Cell 4.60(L) 4.63 - 6.08 x10(6)/mc L CERNER MILLENNIUM Hemoglobin 13.8 13.7 - 17.5 gm/dL CERNER MILLENNIUM Hematocrit 40.5 40.0 - 51.0 % CERNER MILLENNIUM Mean Cell Volume 88.0 79.0 - 92.0 fL CERNER MILLENNIUM Mean Cell Hemoglobin 30.0 25.6 - 32.2 pg CERNER MILLENNIUM Mean Cell Hemoglobin Concentration 34.1 32.0 - 36.5 gm/dL CERNER MILLENNIUM Platelet 398(H) 145 - 370 x10(3)/mc L CERNER MILLENNIUM RDW Standard Deviation 43.7 35.0 - 46.0 fL CERNER MILLENNIUM RDW coefficient of variation 13.6 10.9 - 14.4 % CERNER MILLENNIUM Mean Platelet Volume 9.4 9.0 - 12.0 fL CERNER MILLENNIUM Blood specimen (specimen) 10/10/2013 4:06 AM EDT 10/10/2013 4:33 AM EDT Narrative Resulting Agency Comment Spec In Lab Mila Mcclal MD HEMATOLOGY ORDERABLE S Performing Organization Address City/[facility]/ZIP Co de Phone Number BRYN HSIEHENNIUM * (ABNORMAL) BMP w/fasting Glucose (10/10/2013 [...] of Diabetes Mellitus, Position Statement from the [place] Diabetes Association. ??Diabetes Care, Volume 33, Supplement 1, Jun 2009 Blood Urea Nitrogen 29(H) 10 - 20 mg/dL CERNER MILLENNIUM Creatinine 1.09 0.80 - 1.50 mg/dL CERNER MILLENNIUM Comment: Please note that the pediatric reference intervals supplied above were not validated at [facility]. Results from pediatric patients should be interpreted [...] Mccall MD CHEMISTRY ORDERABLES Performing Organization Address [facility] Co de Phone Number BRYN SANCHEZ * NUCLEAR STRESS, CARDIOLOGY RESULTS (10/10/2013) Anatomical Region Laterality Modality Other Mila Mccall MD CARD TESTS W/SCANNED RESULTS * Cardiac Enzymes (10/09/2013 9:41 PM EDT) Troponin-T <0.03 <=0.03 ng/mL BRYN SANCHEZ Comment: 0.03 ng/mL: Represents the 99th percentile upper reference limit for normals. >0.03 ng/mL: Elevated cardiac troponin T level indicative of myocardial damage. Diagnosis of acute, evolving or recent NH requires a typical rise and gradual fall [...] consensus document of the Joint Society of Cardiology/[place] College of Cardiology Committee for the redefinition of myocardial infarction. ??Journal of the [place] College of Cardiology 2000; 36: 959-969] Creatine Kinase 78 0 - 200 unit/L SAVITARENAN МАРИЯSAURABH Blood specimen (specimen) 10/09/2013 9:41 PM EDT 10/09/2013 9:45 PM EDT Narrative Resulting Agency Comment Spec In Lab Mila Mccall MD CHEMISTRY ORDERABLES BRYN SANCHEZ * Cardiac Enzymes (10/09/2013 3:55 PM EDT) Troponin-T <0.03 <=0.03 ng/mL BRYN SANCHEZ Comment: 0.03 ng/mL: Represents the 99th percentile upper reference limit for normals. >0.03 ng/mL: Elevated cardiac troponin T level indicative of myocardial damage. Diagnosis of acute, evolving or recent NH requires a typical rise and gradual fall [...] consensus document of the Joint Society of Cardiology/[place] College of Cardiology Committee for the redefinition of myocardial infarction. ??Journal of the [place] College of Cardiology 2000; 36: 959-969] Creatine Kinase 89 0 - 200 unit/L BRYN SANCHEZ Blood specimen (specimen) 10/09/2013 3:55 PM EDT 10/09/2013 4:25 PM EDT Narrative Resulting Agency Comment Spec In Lab Mila Mccall MD CHEMISTRY ORDERABLES Performing Organization Address [facility] Phone Number BRYN SANCHEZ * Miscellaneous Lab request (10/09/2013 3:55 PM EDT) Label Request received in lab. BRYN SANCHEZ Blood specimen (specimen) 10/09/2013 3:55 PM EDT 10/09/2013 4:25 PM EDT Mila Mccall MD LAB SEND OUT ORDERAB LES Performing Organization Address [facility] de Phone Number BRYN SANCHEZ * EKG 12 Lead (10/09/2013 3:22 PM EDT) Ventricular rate 61 BPM MUSE SYSTEM Atrial Rate 61 BPM MUSE SYSTEM P-R Interval 150 ms MUSE SYSTEM QRS Duration 82 ms MUSE SYSTEM Q-T Interval 410 ms MUSE SYSTEM QTC Calculated (Bezet) 412 ms MUSE SYSTEM Calculated P [place] 74 degrees MUSE SYSTEM Calculated R [place] 60 degrees MUSE SYSTEM Calculated T [place] 70 degrees MUSE SYSTEM INTERPRETATION Normal sinus [...] Coronary atherosclerosis of unspecified type of vessel, quileute or graft S/P coronary artery stent placement Postsurgical percutaneous transluminal coronary angioplasty status CAD (coronary artery disease) Coronary atherosclerosis of unspecified type of vessel, quileute or graft Emphysema/COPD Other emphysema Hyperlipidemia Other and unspecified hyperlipidemia Hypertension Unspecified essential hypertension Tobacco abuse Tobacco use disorder documented in this encounter Administered Medications Inactive Administered Medications - up to 3 most recent administrations Medication Order [facility] Action Action Date Dose Rate Site acetaminophen [...] Ernst RN) 0900 (Given - Provider: Lisa Perez, BOB) pantoprazole (PROTONIX) tablet 40 mg (CANCELED) 40 [...] 1433 1145 (New Bag - Provider: Cee Ernts RN) sodium chloride 0.9% infusion () 100 [...] in sodium chloride 0.9% 90 mL infusion (MEMBER OF THE [employer]GIS[employer]) (CANCELED) CONTINUOUS PRN, Starting on Wed10/10/13 at 1446, Until Wed10/10/13 at 1551, Cath (Intra-Procedure), Routine 1446 (New Bag - Provider: Aristides Paulino RN)1449 (Stopped - Provider: Irving Riley RN) bivalirudin (ANGIOMAX) 250 mg in sodium chloride 0.9% 50 mL infusion (MEMBER [employer]) (CANCELED) CONTINUOUS PRN, Starting on Wed10/10/13 at [...] Patch documented in this encounter Care Teams Contracting Manager Relationship Specialty Start Date End Date Edin Messina MD [address] [place] [address] PCP - General 10/02/11 01/11/22 documented as of this encounter
--- OUTSIDE RECORDS SUMMARY | 2024-02-09 02:20 | XMS_ITS | Encounter Summary ---
Author Organization [facility], [facility] Address [facility] [place] [address] Care Team Providers Care Air Drill Operator Name Role Phone Nataliya Messina MD Primary Care Provider [phone] Reason for Visit * Reason Comments Circulatory Problem right self-expanding common iliac stent (Epic 9 x Encounter Details Date Type Department Care Team (Late st Contact Info) Description 01/06/2012 2:45 PM EDT Office Visit [place] [address] Kristan Patrick MD [facility] [place] [address] S/P insertion of iliac artery stent Discharge [...] AM EDT Office Visit Hematology/Oncology at [address] [phone] Heber Phillips MD [facility] DR HEMATOLOGY [place] [address] Isabella Baker APRN [facility] [place] [address] documented as of this encounter Results * NALDO, legs, multiple levels (01/18/2013 2:25 PM EDT) VB Text Report Department: Vascular Surgery Lab Patient: [id number] (BRITTA SAEED) CPT Code: 39060 ICD-9: 440.20 Referring Physician: KRISTAN PATRICK Indication: [...] Patrick MD VASCULAR ORDERABLES Performing Organization Address City/State/[facility] Co de Phone Number [facility]CU[facility] documented in this encounter Visit Diagnoses Diagnosis S/P insertion of iliac artery stent Other postprocedural status documented in this encounter Care Teams Air Drill Operator Relationship Specialty Start Date End Date Nataliya Messina MD [address] [address] PCP - General 10/02/11 01/11/22 documented as of this encounter
--- OUTSIDE RECORDS SUMMARY | 2024-02-09 02:20 | XMS_ITS | Encounter Summary ---
[place] [address] Care Team Providers Care Manager [place] Name Role Phone Nataliya Messina MD Primary Care Provider [phone] Encounter Details Date Type Department Care Team (Late st Contact Info) Description 10/05/2011 Orders [place] [phone] Deepa Quintero RN Neuropathic pain (Primary Dx) [...] Dr. Manley consulted and prescription called to [facility] in [place]. Call placed to Mr. Tillman with this information and titration instructions. Patient knows how to contact the [facility] with any further questions or concerns. documented in this encounter Plan of Treatment Upcoming Encounters Date Type Department Care Team (Late Contact Info) Description 03/28/2024 10:00 AM EDT Office Visit Hematology/Oncology at [address] [phone] Heber Phillips MD [facility] DR HEMATOLOGY [place] [address] Isabella Baker APRN [facility] [place] [address] documented as of this encounter Visit Diagnoses Diagnosis Neuropathic pain- Primary Neuralgia, neuritis, and radiculitis, unspecified documented in this encounter Care Teams Manager [place] Relationship Specialty Start Date End Date Nataliya Messina MD [address] [place] [address] [id number] PCP - General 10/02/11 01/11/22 documented as of this encounter
--- OUTSIDE RECORDS SUMMARY | 2024-02-09 02:20 | XMS_ITS | Encounter Summary ---
[place] [address] Care Team Providers Care Disc Recordist Name Role Phone Nataliya Messina MD Primary Care Provider [phone] Encounter Details Date Type Department Care Team (Late Contact Info) Description 01/18/2013 2:30 PM EDT Ancillary Appointment [place] [phone] Mary Ewing, RVT Social History Tobacco Use [...] AM EDT Office Visit Hematology/Oncology at [address] [phone] Heber Phillips MD [facility] [place] [address] Isabella Baker APRN [facility] [place] [address] documented as of this encounter Visit Diagnoses Not on filedocumented in this encounter Care Teams Disc Recordist Relationship Specialty Start Date End Date Nataliya Messian MD [address] [place] [address] PCP - General 10/02/11 01/11/22 documented as of this encounter
--- OUTSIDE RECORDS SUMMARY | 2024-02-09 02:20 | XMS_ITS | Encounter Summary ---
Author Organization [facility] Address [facility] [place] [address] Care Team Providers Care Radio Director Name Role Phone Nataliya Messina MD Primary Care Provider [phone] Encounter Details Date Type Department Care Team (Late Contact Info) Description 09/11/2013 Orders Only Cardiology at [address] [address] Stevo Mccall MD [facility] [place] [address] Social History Tobacco Use Types Packs/Day Years [...] AM EDT Office Visit Hematology/Oncology at [address] [phone] Heber Phillips MD [facility] DR HEMATOLOGY [place] [address] Isabella Baker APRN [facility] [place] [address] documented as of this encounter Procedures Procedure [...] on filedocumented in this encounter Care Teams Radio Director Relationship Specialty Start Date End Date Nataliya Messina MD [address] [place] [address] [address] [place] [address] PCP - General 10/02/11 01/11/22 documented as of this encounter
--- OUTSIDE RECORDS SUMMARY | 2024-02-09 02:20 | XMS_ITS | Encounter Summary ---
[place] [address] Care Team Providers Care Accounts Payable Payroll Coordinator Name Role Phone Nataliya Messina MD Primary Care Provider [phone] Encounter Details Date Type Department Care Team (Latest Contact Info) Description 11/25/2011 9:00 AM EDT Procedure visit [place] [phone] Mary Ewing, RVT Atherosclerotic peripheral vascular disease [...] AM EDT Office Visit Hematology/Oncology at [address] [phone] Heber Phillips MD [facility] [address] [place] [address] Isabella Baker APRN [facility] [place] [address] documented as of this encounter Procedures Procedure Name Priority Date/Time Associated Diagnosis Comments ARTERIAL DUPLEX LEG UNILA Routine 11/25/2011 8:59 AM EDT Atherosclerotic peripheral vascular disease with rest pain documented in this encounter Results * Arterial Duplex Leg, Unil (11/25/2011 8:59 AM EDT) VB Text Report Department: Vascular Surgery Lab Patient: [id number] (BRITTA SAEED) CPT Code: 81301 ICD-9: 440.20 Referring Physician: KRISTAN BOWDEN Indication: [...] of 1.27cm. Patent right external iliac artery, MASTIC FLOOR LAYER, SFA, proximal PFA, popliteal artery, and proximal DREDGE WORKER and proximal peroneal artery with no evidence of significant stenosis or aneurysm--all waveforms are tardus/parvus with low flow velocities. 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
--- OUTSIDE RECORDS SUMMARY | 2024-02-09 02:20 | XMS_ITS | Encounter Summary ---
Author Organization [facility] [place] [address] Care Team Providers Care Interactive Graphic Designer Name Role Phone Nataliya Messina MD Primary Care Provider [phone] Encounter Details Date Type Department Care Team (Latest Contact Info) Description 12/07/2011 10:36 AM EDT - 12/07/2011 11:59 PM EDT Hospital [place] [phone] Unknown None Discharge Disposition: Home Social History [...] AM EDT Office Visit Hematology/Oncology at [address] [phone] Heber Phillips MD [facility] DR HEMATOLOGY [place] [address] Isabella Baker APRN [facility] [place] [address] documented as of this encounter Visit Diagnoses Not on filedocumented in this encounter Care Teams Interactive Graphic Designer Relationship Specialty Start Date End Date Nataliya Messina MD [address] [facility] [place] [address] PCP - General 10/02/11 01/11/22 documented as of this encounter
--- OUTSIDE RECORDS SUMMARY | 2024-02-09 02:20 | XMS_ITS | Encounter Summary ---
Author Organization [facility] Address [facility] [address] Care Team Providers Care Raisin Separator Operator Name Role Phone Nataliya Messina MD Primary Care Provider [phone] Encounter Details Date Type Department Care Team (Late Contact Info) Description 11/12/2011 Orders [place] [address] Kristan Patrick MD [facility] [place] [address] Atherosclerotic peripheral vascular disease with rest pain [...] AM EDT Office Visit Hematology/Oncology at [address] [phone] Heber Phillips MD [facility] DR [place] [address] Isabella Baker APRN [facility] [place] [address] documented as of this encounter Results * Arterial Duplex Leg, Unil (11/25/2011 8:59 AM EDT) VB Text Report Department: Vascular Surgery Lab Patient: [id number] (BRITTA SAEED) CPT Code: 58755 ICD-9: 440.20 Referring Physician: KRISTAN PATRICK Indication: [...] of 1.27cm. Patent right external iliac artery, MOTOR LODGE CLERK, SFA, proximal PFA, popliteal artery, and proximal EMERGENCY VEHICLE DISPATCHER and proximal peroneal artery with no evidence [...] disease with rest pain- Primary Atherosclerosis of wales arteries of the extremities with rest pain documented in this encounter Care Teams Raisin Separator Operator Relationship Specialty Start Date End Date Nataliya Messina MD [address] [place] [address] [address] PCP - General 10/02/11 01/11/22 documented as of this encounter
--- OUTSIDE RECORDS SUMMARY | 2024-02-09 02:20 | XMS_ITS | Encounter Summary ---
Author Organization [facility] Address [facility] [place] [address] Care Team Providers Care Leader Writer Name Role Phone Nataliya Messina MD Primary Care Provider [phone] Reason for Visit * Reason Comments Follow-up BLE Encounter Details Date Type Department Care Team (Late st Contact Info) Description 01/18/2013 3:30 PM EDT Follow-[place] [address] Yvonne Wing APRN [facility] [place] [address] PVD (peripheral vascular disease) (Primary Dx); Carotid [...] ND, no palpable pulsatile masses Extremity - Gordo, warm, no ulceration, brisk capillary refill, no [...] AM EDT Office Visit Hematology/Oncology at [address] [phone] Heber Phillips MD [facility] [place] [address] Isabella Baker APRN [facility] [place] [address] documented as of this encounter Results * Cerebrovascular Duplex, Bilateral (02/21/2013 12:34 PM EDT) VB Text Report Department: Vascular Surgery Lab Patient: [id number] (BRITTA SAEED) CPT Code: 08382 ICD-9: 433.1 Referring Physician: KRISTAN PATRICK Indication: [...] infarction documented in this encounter Care Teams Leader Writer Relationship Specialty Start Date End Date Nataliya Messina MD [address] [place] [address] PCP - General 10/02/11 01/11/22 documented as of this encounter
--- OUTSIDE RECORDS SUMMARY | 2024-02-09 02:20 | XMS_ITS | Encounter Summary ---
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 Return to work: Retired Driving: No driving for 48 hours after catheterization. Follow up Appointments: PCP EDIN MESSINA MD September 20, 2013 at 2:[address] Winn In [place] October 16, 2013 at 9:20 am Home [...] I have been to Nelly Gross, tobacco eap specialist at [facility] and could go [...] their effects. Discussed the Tobacco cessation resources: [place] quitline 2-224-MRSM-NOW, [facility] tobacco treatment resources and the [facility] Tobacco treatment program [phone]. Discussed alternative methods of dealing with cravings [...] past and will think about using the [place] Quitline for free tobacco treatment counseling and free NRT. Laxmi Brown RN, MS, C-TTS Beeper * Candy Villegas, DT - 09/13/2013 11:17 AM EDT Nutrition Services - Education Note Britta Tillman : 1955 AGE: 58 y.o. Patient Active Problem List Diagnosis Date Noted ??? *Hospital-Chest pain 09/11/2013 ??? Hospital-Hypertension 09/11/2013 ??? Hospital-Hyperlipidemia 09/11/2013 ??? Hospital-Emphysema/COPD 09/11/2013 ??? Hospital-Carotid stenosis 10/28/2011 ??? Hospital-PVD (peripheral vascular disease) 10/28/2011 ??? Low back pain radiating to right leg Reason for Nutrition Intervention: Consult Diet Order: [facility] Appetite: good Food allergies: none Chewing/Swallowing difficulty: none (per patient) Ht Readings from Last 3 Encounters: 09/11/13 170.2 cm (5' 7) 09/11/13 170.2 cm (5' 7) 01/18/13 167.6 cm (5' 6) Wt Readings from Last 3 Encounters: 09/13/13 69.8 kg (153 lb 14.1 oz) 09/13/13 69.8 kg (153 lb 14.1 oz) 02/21/13 69.854 kg (154 lb) Body mass index is 24.10 kg/(m^2). Education: [facility] dietary guidelines. Guidelines for a Heart Healthy [...] of future questions arise. Nutrition Plan: Diet: [facility] Recommend Daily Multi Vitamins. Encourage good po intake. Monitor weight. Support and encouragement provided. Nutrition services to follow weekly thru hospital course unless consulted in the interim. ANAHI Jansen * Stevo Mccall MD - 09/13/2013 8:30 AM EDT Images from the original note were not included. Inpatient Cardiology Progress Note Patient Name: Britta Tillman Service: DIAMOND BLENDER / PA Responsible Attending: Stevo Mccall MD [...] infarction, prior to cardiac cath. Intra op LA. Chest pain post procedure was different than [...] Mccall MD Janette Stender, APRN 09/13/2013 Attending Mailhouse Operator Discharge Day Addendum: Britta Tillman is a 58 y.o. male whom I saw today with associate provider Anitha Carlos APRN. I have independently interviewed and examined the patient and reviewed the pertinent diagnostic information. I agree with the principal findings documented above. The assessment and plan were formulated indiscussion with me. I am a credentialed residential care facility manager at [facility] and I am the attending [...] per d/c summary. Stevo Mccall MD, MS,, [facility] Staff Mailhouse Operator * Lisa Jamison RN - 09/12/2013 2:57 PM EDT Reviewed record and received report from Anitha Carlos NP. Did not interview patient. Per Dr. Mccall:58 y.o. male who has ruled out for myocardial infarction. Chest pain at rest x 2 overnight on heparin gtt. Will plan for cardiac cath today. Unstable angina Stent insertion Social: and lives with his in [place], [place]. Insurance:DC [employer] [facility] Anticipated discharge needs: None expected at this time. Plan: Home with support of family when medically ready. No discharge needs anticipated at this time. CRC will follow clinical status and remain available if any needs should arise. Lisa Jamison RN, BSN covering CRC Remi Sky pager [phone]. * Rafael Foote - 09/12/2013 10:25 AM EDT ABSORB III ENROLLMENT NOTE ABSORB III RANDOMIZED CONTROLLED TRIAL A Clinical Evaluation of Absorb??? BVS, the Everolimus Eluting Bioresorbable Vascular Scaffold in the Treatment of Subjects with de rupal [place] Coronary Artery Lesions PI: Rivas Montesinos MD Pager #:[phone] Research Coordinators: Rafael Foote, BS, BA, GOLF COURSE EQUIPMENT OPERATOR Pager #:[phone] Chacorta Sheikh RN Pager #: [phone] Purpose: The pivotal trial to support the [place] pre-market approval (PMA) of Absorb BVS. ABSORB III will evaluate the safety and effectiveness of the Absorb BVS System compared to the XIENCE in the treatment of subjects, including those with diabetes mellitus, with ischemic heart disease caused by up to two [place] coronary artery lesions in separate epicardial vessels. [...] through 5 years post procedure. Study ID#: [id number], [facility] NOTE: Patient must remain blinded to their assigned study device!! * Stevo Mccall MD - 09/12/2013 9:37 AM EDT Images from the original note were not included. Inpatient Cardiology Progress Note Patient Name: Britta Tillman Service: DIAMOND BLENDER / PA Responsible Attending: Stevo Mccall MD [...] report to come today. Ruled out for LA. Eager to get cardiac cath over with [...] today. Plan: Unstable angina, ruled out for LA On heparin gtt Cardiac cath today Echo [...] Mccall MD Janette Stender, DEVANTE 09/12/2013 Attending Mailhouse Operator Addendum: Britta Tillman is a 58 y.o. male whom I saw today 09/12/2013 with associate provider KAMALJIT Alvarenga. I have independently interviewed and examined the patient and reviewed the pertinent diagnosticinformation. I agree with the principal findings documented above. The assessment and plan were formulated in discussion with me. I am a credentialed residential care facility manager at [facility] and I am the attending of rec [...] by his COPD. Stevo Mccall MD, MS,, [facility] Staff Mailhouse Operator * Rafael Foote - 09/12/2013 7:47 AM EDT ABSORB III RANDOMIZED CONTROLLED TRIAL A Clinical Evaluation of Absorb??? BVS, the Everolimus Eluting Bioresorbable Vascular Scaffold in the Treatment of Subjects with de [place]upal [place] Coronary Artery Lesions PI: Rivas Montesinos MD Pager #:[phone] Research Coordinators: ANIYA Pickering, BA, GOLF COURSE EQUIPMENT OPERATOR Pager #:[phone] Chacorta Sheikh RN Pager #: [phone] Purpose: The pivotal trial to support the [place] pre-market approval (PMA) of Absorb BVS. ABSORB III will evaluate the safety and effectiveness of the Absorb BVS System compared to the XIENCE in the treatment of subjects, including those with diabetes mellitus, with ischemic heart disease caused by up to two [place] coronary artery lesions in separate epicardial vessels. [...] EMS was called and he went to [facility] for assessment. He was started on IV heparin gtt. His first troponin was normal. He had some chest discomfort on the ambulance ride down to [facility], but none since his arrival. Past Medical [...] Social History Narrative Lives with his in [place], [place]. 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 [...] MD Provider: ANITHA CARLOS APRN Provider #: [id number] 09/11/2013 Attending Mailhouse Operator H&P Addendum: Britta Tillman is a 58 [...] and his . Stevo Mccall MD, MS,, [facility] Staff Mailhouse Operator documented in this encounter Procedure Notes * Provider, Scanning - 09/14/2013 9:44 AM EDTAssociated Order(s): SCAN DOC: MEDICAL OFFICE RECEPTIONIST * Provider, Scanning - 09/14/2013 9:44 AM [...] Britta Tillman Patient Age: 58 y.o. Language: Thai Race: White Ethnicity: Not nor Admit date: 09/11/2013 Discharge date and time: 09/13/2013 Attending Physician: Stevo Mccall MD Discharge Physician: Stevo Mccall MD Follow-up Recommendations for Providers: Plavix for one year going forward due to stenting Newly started on metoprolol, follow respiratory status Encourage smoking cessation and participation with cardiac rehab Inpatient Provider Contact Information: ANITHA CARLOS, CERTIFIED LOW VISION THERAPIST [phone] Discharge Diagnoses (Hospital Problems) and Secondary Diagnoses [...] EMS was called and he went to [facility] for assessment. He was started on IV heparin gtt. His first troponin was normal. He had some chest discomfort on the ambulance ride down to [facility], but none since his arrival. Hospital Course: Chest Pain, new CAD Given the patient's risk factors, EKG changes, it was decided to proceed with coronary angiography.The patient went to the cardiac asphalt plant laborer for a diagnostic cath which [...] appointments: During 8am-5pm Wednesday through Wednesday call [phone] to speak with a nurse in the cardiology clinic All other times call [phone] and ask to speak to the tool and die inspector scale reclamation tender. Return to work: Retired Driving: No driving for 48 hours after catheterization. Follow up Appointments: PCP EDIN MESSINA MD September 20, 2013 at 2:[address] Winn In [place] October 16, 2013 at 9:20 am Home oxygen therapy: N/A Arrangements for VNA/home care: none Future Appointments and Orders Future Appointments: Provider: Department: Dept Phone: Center: 10/09/2013 1:30 PM Mary Ewing, RVT Vascular Surgery [phone] [facility] 10/09/2013 3:00 PM Yvonne Wing, CERTIFIED LOW VISION THERAPIST Vascular Surgery [phone] [facility] 10/16/2013 9:30 AM Lauri Winn Jr., MD [place] [facility] [phone] None Discharge References/Attachments None Anithaghassan Carlos, CERTIFIED LOW VISION THERAPIST 09/13/2013 * Consult Note - Amy Tran [...] He will follow up locally with smoking [facility]codoctors hospital. Phase II Referral: [facility] Activity Summary: By discharge, patient will be [...] recovery patient reported 1/10 chest pain. Anitha Carlos APRN updated. One SL nitro administered (please see [...] AM EDT Office Visit Hematology/Oncology at [address] [address] Heber Phillips MD [facility] [place] [address] Isabella Baker APRN [facility] [address] Scheduled Referrals Name Type Priority Associated Diagnoses Orde r Schedule Referral to Cardiac Rehab Outpatient Referral Routine Chest pain Ordered: 09/13/2013 documented as of this encounter Procedures Procedure Name Priority Date/Time Associated Diagnosis Comments MEDICAL OFFICE RECEPTIONIST SCAN 09/14/2013 9:44 AM EDT CARDIAC CATH SCAN 09/14/2013 9:4 4 AM EDT MISCELLANEOUS LAB REQUEST Timed 09/13/2013 9:50 AM EDT EKG 12-LEAD Routine 09/13/2013 7:14 AM EDT Chest pain BMP W/FASTING GLUCOSE Routine 09/13/2013 4:13 AM EDT SCAN, PERIPHERAL BLOOD Routine 4 4:13 AM EDT DIFFERENTIAL, AUTOMATED Routine 09/14/19 14 4:13 AM EDT CARDIAC ENZYMES ([facility]) Routine 09/13/2013 4:13 AM EDT CBC (WITH DIFF) Routine 09/13/2013 4:13 AM EDT EKG 12-LEAD Routine 09/12/2013 11:17 AM EDT Chest pain EKG 12-LEAD Routine 09/12/2013 10:33 AM EDT Chest pain CARDIAC CATHETERIZATION Routine 09/13/19 14 10:16 AM EDT CARDIAC ENZYMES ([facility]) Routine 09/12/2013 10:05 AM EDT EKG 12-LEAD STAT 09/12/2013 7:41 AM EDT Chest pain EKG 12-LEAD Routine 09/12/2013 5:04 AM EDT Chest pain BMP W/FASTING GLUCOSE Routine 09/12/2013 4:30 AM EDT DIFFERENTIAL, MANUAL Routine 09/12/2013 4:30 AM EDT CK-MB STUDY Routine 09/12/2013 4:30 AM EDT CARDIAC ENZYMES ([facility]) Routine 09/12/2013 4:30 AM EDT APTT Timed 09/12/2013 4:30 AM EDT CBC (WITH DIFF) Routine 09/12/2013 4:30 AM EDT TSH Routine 09/12/2013 4:30 AM EDT LDL CHOLESTEROL, DIRECT Routine 09/13/19 14 4:30 AM EDT HEMOGLOBIN A1C Routine 09/12/2013 4:30 AM EDT LIPID PANEL (REFLEX DIRECT LDL) Routine 09/12/2013 4:30 AM EDT CARDIAC ENZYMES ([facility]) STAT 09/11/2013 10:00 PM EDT APTT Timed 09/11/2013 10:00 PM EDT EKG 12-LEAD STAT 09/11/2013 8:00 PM EDT Chest pain ECHOCARDIOGRAM TRANSTHORACIC Routine 09/11/2013 6:06 PM EDT Chest pain BMP W/FASTING GLUCOSE STAT 09/11/2013 3:40 PM EDT SCAN, PERIPHERAL BLOOD STAT 4 3:40 PM EDT DIFFERENTIAL, AUTOMATED STAT 09/12/19 14 3:40 PM EDT CARDIAC ENZYMES ([facility]) STAT 09/11/2013 3:40 PM EDT APTT STAT [...] SCAN EXT O RDR/RSLT * SCAN DOC: MEDICAL OFFICE RECEPTIONIST (09/14/2013 9:44 AM EDT) Anatomical Region Laterality Modality Other Narrative 09/14/2013 9:47 AM EDT Procedure Note Provider, Scanning - 09/14/2013 9:44 AM EDT Scanning Provider MEDIA MGR SCAN EXT O RDR/RSLT * Miscellaneous Lab request (09/13/2013 9:50 AM EDT) Label Request received in lab. SAVITARENAN HSIEHMARTHAAZUL Blood specimen (specimen) 09/13/2013 9:50 AM EDT 09/13/2013 10:21 AM EDT Stevo Mccall MD LAB SEND OUT ORDERAB LES [facility] * EKG 12 Lead (09/13/2013 7:14 AM EDT) Ventricular rate 84 BPM MUSE SYSTEM Atrial Rate 84 BPM MUSE SYSTEM P-R Interval 158 ms MUSE SYSTEM QRS Duration 74 ms MUSE SYSTEM Q-T Interval 384 ms MUSE SYSTEM QTC Calculated (Bezet) 453 ms MUSE SYSTEM Calculated P [place] 76 degrees MUSE SYSTEM Calculated R [place] 71 degrees MUSE SYSTEM Calculated T [place] 77 degrees MUSE SYSTEM INTERPRETATION Normal sinus rhythm Borderline criteria for Left atrial enlargement When compared with ECG of 12-SEP-2013 11:17, No significant change was found Confirmed by MD TOURE BRUCE ([id number]) on 09/13/2013 1:31:57 PM MUSE SYSTEM 09/13/2013 7:14 AM EDT 09/13/2013 1:31 PM EDT Stevo Mccall MD ECG ORDERABLES MUSE SYSTEM * (ABNORMAL) Differential, Automated (09/13/2013 4:13 AM EDT) Neutrophil % 77.1(H) 34.0 - 71.0 % CERNER MILLENNIUM Neutrophil Absolute 16.47(H) 1.50 - 6.30 x10(3)/mc L CERNER MILLENNIUM Lymph % 14.1(L) 19.0 - 53.0 % CERNER MILLENNIUM Lymphocytes Abs 3.0 1.0 - 3.6 x10(3)/mc L CERNER MILLENNIUM Monocyte % 7.8 4.0 - 13.0 % CERNER MILLENNIUM Monocyte Abs 1.7(H) 0.2 - 1.0 x10(3)/mc L CERNER MILLENNIUM Eos % 0.3 0.0 - 7.0 % CERNER [...] differential will be performed. Immature Gran Absolute 0.12(H) 0.00 - 0.05 x10(3)/mc L CERNER MILLENNIUM Blood specimen (specimen) 09/13/2013 4:13 AM EDT 09/13/2013 4:18 AM EDT Stevo Mccall MD HEMATOLOGY ORDERABLE S CERRENAN HSIEHENNIUM * Scan, Peripheral Blood (09/13/2013 4:13 AM EDT) Plat estimate Increased CERNER MILLENNIUM RBC Morphology Normal CERNE R MILLENNIUM Blood specimen (specimen) 09/13/2013 4:13 AM EDT 09/13/2013 4:18 AM EDT Narrative Resulting Agency Comment Spec In Lab Stevo Mccall MD HEMATOLOGY ORDERABLE S BRYN HSIEHENNIUM * (ABNORMAL) BMP w/fasting Glucose (09/13/2013 4:13 [...] of Diabetes Mellitus, Position Statement from the [employer] Diabetes Association. ??Diabetes Care, Volume 33, Supplement 1, Jun 2009 Blood Urea Nitrogen 19 10 - 20 mg/dL CERNER MILLENNIUM Creatinine 0.89 0.80 - 1.50 mg/dL CERNER MILLENNIUM Comment: Please note that the pediatric reference intervals supplied above were not validated at [facility]. Results from pediatric patients should [...] 106 98 - 107 mmol/L CERNER MILLENNIUM Carbon Dioxide 25 22 - 31 mmol/L CERNER MILLENNIUM Anion Gap 7 5 - 15 mmol/L CERNER MILLENNIUM Calcium 8.7 8.5 - 10.5 mg/dL CERNER MILLENNIUM Est [...] In Lab Stevo Mccall MD CHEMISTRY ORDERABLES [facility] * (ABNORMAL) CBC (with Diff) (09/13/2013 4:13 AM EDT) White Blood Cell 21.4(H) 4.0 - 10.0 x10(3)/mc L CERNER MILLENNIUM Red Blood Cell 4.55(L) 4.63 - 6.08 x10(6)/mc L CERNER MILLENNIUM Hemoglobin 13.6(L) 13.7 - 17.5 gm/dL CERNER MILLENNIUM Hematocrit 40.4 40.0 - 51.0 % CERNER MILLENNIUM Mean Cell Volume 88.8 79.0 - 92.0 fL CERNER MILLENNIUM Mean Cell Hemoglobin 29.9 25.6 - 32.2 pg CERNER MILLENNIUM Mean Cell Hemoglobin Concentration 33.7 32.0 - 36.5 gm/dL CERNER MILLENNIUM Platelet 382(H) 145 - 370 x10(3)/mc L CERNER MILLENNIUM RDW Standard Deviation 46.8(H) 35.0 - 46.0 fL CERNER MILLENNIUM RDW coefficient of variation 14.5(H) 10.9 - 14.4 % CERNER MILLENNIUM Mean Platelet Volume 9.7 9.0 - 12.0 fL CERNER MILLENNIUM Blood specimen (specimen) 09/13/2013 4:13 AM EDT 09/13/2013 4:18 AM EDT Narrative Resulting Agency Comment Spec In Lab Stevo Mccall MD HEMATOLOGY ORDERABLE S CERRENAN MILLENNIUM * (ABNORMAL) Cardiac Enzymes (09/13/2013 4:13 AM EDT) Troponin-T 1.05(H) <=0.03 ng/mL CERNER MILLENNIUM Comment: 0.03 ng/mL: Represents the 99th percentile upper reference limit for normals. >0.03 ng/mL: Elevated cardiac troponin T level indicative of myocardial damage. Diagnosis of acute, evolving or recent LA requires a typical rise and gradual fall [...] consensus document of the Joint Society of Cardiology/Chinese College of Cardiology Committee for the redefinition of myocardial infarction. ??Journal of the Chinese College of Cardiology 2000; 36: 959-969] Creatine Kinase 340(H) 0 - 200 unit/L CERNER MILLENNIUM Blood specimen (specimen) 09/13/2013 4:13 AM EDT 09/13/2013 4:18 AM EDT Narrative Resulting Agency Comment Spec In Lab Stevo Mccall MD CHEMISTRY ORDERABLES Performing Organization Address [facility] de Phone Number BRYN SANCHEZ * EKG 12 Lead (09/12/2013 11:17 AM EDT) Ventricular rate 96 BPM MUSE SYSTEM Atrial Rate 96 BPM MUSE SYSTEM P-R Interval 154 ms MUSE SYSTEM QRS Duration 84 ms MUSE SYSTEM Q-T Interval 374 ms MUSE SYSTEM QTC Calculated (Bezet) 472 ms MUSE SYSTEM Calculated P [place] 78 degrees MUSE SYSTEM Calculated R [place] 74 degrees MUSE SYSTEM Calculated T [place] 89 degrees MUSE SYSTEM INTERPRETATION Normal sinus rhythm Septal infarct , age undetermined Abnormal ECG When compared with ECG of 12-SEP-2013 10:33, No significant change was found Confirmed by PRIMO, BRITTA AGUSTIN ([id number]) on 09/12/2013 12:26:08 PM MUSE SYSTEM 09/12/2013 11:1 7 AM EDT 09/12/2013 12:26 PM EDT Stevo Mccall MD ECG ORDERABLES Performing Organization Address [facility] Phone Number MUSE SYSTEM * EKG 12 Lead (09/12/2013 10:33 AM EDT) Ventricular rate 92 BPM MUSE SYSTEM Atrial Rate 92 BPM MUSE SYSTEM P-R Interval 164 ms MUSE SYSTEM QRS Duration 74 ms MUSE SYSTEM Q-T Interval 364 ms MUSE SYSTEM QTC Calculated (Bezet) 450 ms MUSE SYSTEM Calculated P [place] 77 degrees MUSE SYSTEM Calculated R [place] 75 degrees MUSE SYSTEM Calculated T [place] 85 degrees MUSE SYSTEM INTERPRETATION Normal sinus rhythm Normal ECG When compared with ECG of 12-SEP-2013 07:41, No significant change was found Confirmed by PRIMO, ??BRITTA HIGUERA ([id number]) on 09/12/2013 11:06:31 AM MUSE SYSTEM 09/12/2013 10:3 3 AM EDT 09/12/2013 11:06 AM EDT Stevo Mccall MD ECG ORDERABLES Performing Organization Address [facility] de Phone Number MUSE SYSTEM * Cardiac Catheterization (09/12/2013 10:16 AM EDT) Anatomical Region Laterality Modality Other Narrative 09/13/2013 4:00 PM EDT Procedure Note Provider, Scanning - 09/12/2013 10:40 AM EDT Transcriptions Provider, Scanning - 09/13/2013 4:00 PM EDT Stevo Mccall MD CARDIAC CATH ORDERAB LES * Cardiac Enzymes (09/12/2013 10:05 AM EDT) Troponin-T <0.03 <=0.03 ng/mL SAVITARENAN HSIEHMARTHAAZUL Comment: 0.03 ng/mL: Represents the 99th percentile upper reference limit for normals. >0.03 ng/mL: Elevated cardiac troponin T level indicative of myocardial damage. Diagnosis of acute, evolving or recent LA requires a typical rise and gradual fall [...] consensus document of the Joint Society of Cardiology/Chinese College of Cardiology Committee for the redefinition of myocardial infarction. ??Journal of the Chinese College of Cardiology 2000; 36: 959-969] Creatine Kinase 56 0 - 200 unit/L BRYN SANCHEZ Blood specimen (specimen) 09/12/2013 10:05 AM EDT 09/12/2013 10:17 AM EDT Narrative Resulting Agency Comment Spec In Lab Stevo Mccall MD CHEMISTRY ORDERABLES BRYN SANCHEZ * EKG 12 Lead (09/12/2013 7:41 AM EDT) Ventricular rate 78 BPM MUSE SYSTEM Atrial Rate 78 BPM MUSE SYSTEM P-R Interval 166 ms MUSE SYSTEM QRS Duration 76 ms MUSE SYSTEM Q-T Interval 394 ms MUSE SYSTEM QTC Calculated (Bezet) 449 ms MUSE SYSTEM Calculated P [place] 77 degrees MUSE SYSTEM Calculated R [place] 78 degrees MUSE SYSTEM Calculated T [place] 79 degrees MUSE SYSTEM INTERPRETATION Normal sinus rhythm Cannot rule out Septal infarct , age undetermined When compared with ECG of 12-SEP-2013 05:04, (unconfirmed) No significant change was found Confirmed by PRIMO, BRITTA AGUSTIN ([id number]) on 09/12/2013 11:06:23 AM MUSE SYSTEM 09/12/2013 7:41 AM EDT 09/12/2013 11:06 AM EDT Stevo Mccall MD ECG ORDERABLES Performing Organization Address [facility] de Phone Number MUSE SYSTEM * EKG 12 Lead (09/12/2013 5:04 AM EDT) Ventricular rate 83 BPM MUSE SYSTEM Atrial Rate 83 BPM MUSE SYSTEM P-R Interval 162 ms MUSE SYSTEM QRS Duration 84 ms MUSE SYSTEM Q-T Interval 404 ms MUSE SYSTEM QTC Calculated (Bezet) 474 ms MUSE SYSTEM Calculated P [place] 79 degrees MUSE SYSTEM Calculated R [place] 78 degrees MUSE SYSTEM Calculated T [place] 84 degrees MUSE SYSTEM INTERPRETATION Normal sinus rhythm Septal infarct (cited on or before 11-SEP-2013) When compared with ECG of 11-SEP-2013 20:00, No significant change was found Confirmed by PRIMO, ??BRITTA HIGUERA ([id number]) on 09/12/2013 11:05:45 AM MUSE SYSTEM 09/12/2013 5:04 AM EDT 09/12/2013 11:05 AM EDT Stevo Mccall MD ECG ORDERABLES Performing Organization Address [facility] de Phone Number MUSE SYSTEM * CK-MB Study (09/12/2013 4:30 AM EDT) Creatine Kinase 63 0 - 200 unit/L CERNER MILLENNIUM CK-MB 1.9 0.0 - 5.0 mcg/L CERNER MILLENNIUM CKMB Index 3.0 0.0 - 5.0 mcg/u CERNER MILLENNIUM Blood specimen (specimen) 09/12/2013 4:30 AM EDT 09/12/2013 8:28 AM EDT Narrative Resulting Agency Comment Spec In Lab Stevo Mccall MD CHEMISTRY ORDERABLES CERNER MILLENNIUM * (ABNORMAL) Differential, Manual (09/12/2013 4:30 AM EDT) Segmented Neutrophils Manual 87(H) 34 - 71 % CERNER MILLENNIUM Band % 2 0 - 12 % CERNER MILLENNIUM Lymphocyte Manual 9(L) 19 - 53 % CERNER MILLENNIUM Monocyte Manual 1(L) 4 - 13 % CERN ER MILLENNIUM Eosinophil Manual 1 0 - 7 % CERNER MILLENNIUM Segs Absolute Manual 11.3(H) 1.5 - 6.3 x10(3)/mc L CERNER MILLENNIUM Band Abs 0.3 0.2 - 0.6 x10(3)/mc L CERNER MILLENNIUM ANC 11.55(H) 1.50 - 6.30 x10(3)/mc L CERNER MILLENNIUM Lymph Absolute Manual 1.2 1.0 - 3.6 x10(3)/mc L CERNER MILLENNIUM Monocyte Absolute Manual 0.1(L) 0.2 - 1.0 x10(3)/mc L CERNER MILLENNIUM Eos Absolute Manual 0.1 0.0 - 0.5 x10(3)/mc L CERNER MILLENNIUM Total Cells Ct 100 CERNE R MILLENNIUM Plat estimate Normal CERNER MILLENNIUM RBC Morphology Normal CERNE R MILLENNIUM Blood specimen (specimen) 09/12/2013 4:30 AM EDT 09/12/2013 4:41 AM EDT Narrative Resulting Agency Comment Spec In Lab Stevo Mccall MD HEMATOLOGY ORDERABLE S CERRENAN HSIEHENNIUM * Cardiac Enzymes (09/12/2013 4:30 AM EDT) Troponin-T <0.03 <=0.03 ng/mL CERNER MILLENNIUM Comment: 0.03 ng/mL: Represents the 99th percentile upper reference limit for normals. >0.03 ng/mL: Elevated cardiac troponin T level indicative of myocardial damage. Diagnosis of acute, evolving or recent LA requires a typical rise and gradual fall [...] consensus document of the Joint Society of Cardiology/[employer] College of Cardiology Committee for the redefinition of myocardial infarction. ??Journal of the [employer] College of Cardiology 2000; 36: 959-969] Creatine Kinase 60 0 - 200 unit/L [facility] Guided InterventionsIUM Blood specimen (specimen) 09/12/2013 4:30 AM EDT 09/12/2013 4:42 AM EDT Narrative Resulting Agency Comment Spec In Lab Stevo Mccall MD CHEMISTRY ORDERABLES [facility] [address] [facility] * (ABNORMAL) BMP w/fasting Glucose (09/12/2013 4:30 AM EDT) Glucose Fasting 164(H) 65 - 99 mg/dL [facility] 004 TechnologiesS[facility] SERVICES[facility] Comment: ?Fasting* Glucose Interpretive Criteria Normal ?65-99 [...] of Diabetes Mellitus, Position Statement from the [employer] Diabetes Association. ??Diabetes Care, Volume 33, Supplement 1, Jun 2009 Blood Urea Nitrogen 28(H) 10 - 20 mg/dL [facility] Guided InterventionsIUM Creatinine 0.96 0.80 - 1.50 mg/dL CERNER MILLENNIUM Comment: Please note that the pediatric reference intervals supplied above were not validated at [facility]. Results from pediatric patients should [...] 101 98 - 107 mmol/L CERNER MILLENNIUM Carbon Dioxide 22 22 - 31 mmol/L CERNER MILLENNIUM [...] Lab Stevo Mccall MD CHEMISTRY ORDERABLES [facility] DOYLEI[facility] * (ABNORMAL) CBC (with Diff) (09/12/2013 4:30 AM EDT) White Blood Cell 13.0(H) 4.0 - 10.0 x10(3)/mc L CERNER MILLENNIUM Red Blood Cell 4.90 4.63 - 6.08 x10(6)/mc L CERNER MILLENNIUM Hemoglobin 14.5 13.7 - 17.5 gm/dL CERNER MILLENNIUM Hematocrit 43.0 40.0 - 51.0 % CERNER MILLENNIUM Mean Cell Volume 87.8 79.0 - 92.0 fL CERNER MILLENNIUM Mean Cell Hemoglobin 29.6 25.6 - 32.2 pg CERNER MILLENNIUM Mean Cell Hemoglobin Concentration 33.7 32.0 - 36.5 gm/dL CERNER MILLENNIUM Platelet 398(H) 145 - 370 x10(3)/mc L CERNER MILLENNIUM RDW Standard Deviation 45.1 35.0 - 46.0 fL CERNER MILLENNIUM RDW coefficient of variation 14.1 10.9 - 14.4 % CERNER MILLENNIUM Mean Platelet Volume 9.9 9.0 - 12.0 fL [facility] Blood specimen (specimen) 09/12/2013 4:30 AM EDT 09/12/2013 4:41 AM EDT Narrative Resulting Agency Comment Spec In Lab Stevo Mccall MD HEMATOLOGY ORDERABLE S Performing Organization Address [facility] Co de Phone Number [facility] * (ABNORMAL) APTT (09/12/2013 4:30 AM EDT) Partial Thromboplastin Time 104(H) 25 - 35 sec [facility] Comment: Recommended therapeutic PTT range for full dose unfractionated heparin is 80-114 seconds. Blood specimen (specimen) 09/12/2013 4:30 AM EDT 09/12/2013 4:41 AM EDT Narrative Resulting Agency Comment Spec In Lab Stevo Mccall MD HEMATOLOGY ORDERABLE S Performing Organization Address City/[facility] Co de Phone Number [facility] * LDL Cholesterol, Direct (09/12/2013 4:30 AM EDT) LDL Cholesterol, Direct 85 <=99 mg/dL [facility] Comment: The National Cholesterol Education Program (NCEP) has set the following guidelines for LDL Cholesterol: Reference range: ?? Optimal: ?<100 mg/dL ?? Near Optimal/Above Optimal: ?? 100-129 mg/dL ?? Borderline high: ?130-159 mg/dL ?? High: ? 160-189 mg/dL ?? Very high: ?>qg=012 mg/dL DAO 2001: 285(49):3095-6486 Blood specimen (specimen) 09/12/2013 4:30 AM EDT 09/12/2013 4:41 AM EDT Narrative Resulting Agency Comment Spec In Lab Stevo Mccall MD CHEMISTRY ORDERABLES [facility] * (ABNORMAL) Hemoglobin A1c (09/12/2013 4:30 AM EDT) Hemoglobin A1c 6.1(H) <=5.6 % KATHY Etienne [facility] Comment: As of 2013 the methodology for [...] Mellitus, Diabetes Care 2013; 36: Suppl. 1, S67-45 Estimated Average Glucose 128 mg/dL [facility] Comment: eAG equivalents for HbA1c percentages: HbA1c(%) [...] into estimated average glucose values. ??Diabetes Care 2008:31(8):3242-2921. Blood specimen (specimen) 09/12/2013 4:30 AM EDT 09/12/2013 4:41 AM EDT Narrative Resulting Agency Comment Spec In Lab Stevo Mccall MD CHEMISTRY ORDERABLES [facility] * (ABNORMAL) Lipid panel (fasting) (09/12/2013 4:30 AM EDT) Cholesterol, Total 138 <=199 mg/dL [facility] Comment: Recommendations of the NCEP Adult Treatment Panel for the following risk cutoff thresholds for the [place] population: Desirable: <200 mg/dL Borderline High: 200-239 mg/dL High: > or = 240 mg/dL Triglyceride 59 <=149 mg/dL [facility] Comment: Reference Range: Normal triglycerides: ??<150 mg/dL Borderline high: ??150-199 mg/dL High: ??200-499 mg/dL Very high: ??>ah=007 mg/dL DAO 2001; 285(19):9145-8285 HDL Cholesterol 39(L) >=40 mg/dL SAVITA URRUTIA [facility] Comment: Reference range: ??Low HDL: ?? < 40 mg/dL ??Normal: ?40-60 mg/dL ??Desirable: > 60 mg/dL DAO 2001; 285(19):5437-5954 LDL Cholesterol 87 <=99 mg/dL CER NER МАРИЯENNIUM Comment: Reference range: ?? Optimal: ?<100 mg/dL ?? Near Optimal/Above Optimal: ?? 100-129 mg/dL ?? Borderline high: ?130-159 mg/dL ?? High: ? 160-189 mg/dL ?? Very high: ?>fy=565 mg/dL DAO 2001: 285(19):3564-0504 Cholesterol/HDL Ratio 3.5 ratio SAVITANER VIVEKIUM Comment: A Cholesterol to HDL ratio below 4:1 is desirable. ??Studies suggest that increased CAD risk occurs at ratios above 5 for females and above 6 for men. ? [employer] Heart Association ??(http://www.americanheart.org) ? Jeri Int Med, 1994; 121:641 ? AM J Med, 1998; 105(1A):48S Blood specimen (specimen) 09/12/2013 4:30 AM EDT 09/12/2013 4:41 AM EDT Narrative Resulting Agency Comment Spec In Lab Stevo Mccall MD CHEMISTRY ORDERABLES BRYN SANCHEZ * TSH (09/12/2013 4:30 AM EDT) Thyroid Stimulating Hormone 0.54 0.27 - 4.20 mcIU/mL BRYN SANCHEZ Blood specimen (specimen) 09/12/2013 4:30 AM EDT 09/12/2013 4:41 AM EDT Narrative Resulting Agency Comment Spec In Lab Stevo Mccall MD CHEMISTRY ORDERABLES Performing Organization Address [facility] Phone Number BRYN SANCHEZ * Cardiac Enzymes (09/11/2013 10:00 PM EDT) Troponin-T <0.03 <=0.03 ng/mL SAVITARENAN HSIEHMARTHAAZUL Comment: 0.03 ng/mL: Represents the 99th percentile upper reference limit for normals. >0.03 ng/mL: Elevated cardiac troponin T level indicative of myocardial damage. Diagnosis of acute, evolving or recent LA requires a typical rise and gradual fall [...] consensus document of the Joint Society of Cardiology/Chinese College of Cardiology Committee for the redefinition of myocardial infarction. ??Journal of the [employer] College of Cardiology 2000; 36: 959-969] Creatine Kinase 66 0 - 200 unit/L BRYN SANCHEZ Blood specimen (specimen) 09/11/2013 10:00 PM EDT 09/11/2013 10:05 PM EDT Narrative Resulting Agency Comment Spec In Lab Stevo Mccall MD CHEMISTRY ORDERABLES Performing Organization Address [facility] Phone Number BRYN SANCHEZ * (ABNORMAL) APTT (09/11/2013 10:00 PM EDT) Partial Thromboplastin Time 58(H) 25 - 35 sec BRYN SANCHEZ Comment: Recommended therapeutic PTT range for full dose unfractionated heparin is 80-114 seconds. Blood specimen (specimen) 09/11/2013 10:00 PM EDT 09/11/2013 10:05 PM EDT Narrative Resulting Agency Comment Spec In Lab Stevo Mccall MD HEMATOLOGY ORDERABLE S Performing Organization Address [facility]/State/ZIP Co de Phone Number BRYN SANCHEZ * EKG 12 Lead (09/11/2013 8:00 PM EDT) Ventricular rate 78 BPM MUSE SYSTEM Atrial Rate 78 BPM MUSE SYSTEM P-R Interval 164 ms MUSE SYSTEM QRS Duration 74 ms MUSE SYSTEM Q-T Interval 380 ms MUSE SYSTEM QTC Calculated (Bezet) 433 ms MUSE SYSTEM Calculated P [place] 74 degrees MUSE SYSTEM Calculated R [place] 74 degrees MUSE SYSTEM Calculated T [place] 90 degrees MUSE SYSTEM INTERPRETATION Normal sinus rhythm Septal infarct (cited on or before 11-SEP-2013 ) Abnormal ECG Confirmed by PRIMO, ??BRITTA HIGUERA ([id number]) on 09/12/2013 11:05:39 AM MUSE SYSTEM 09/11/2013 8:00 PM EDT 09/12/2013 11:05 AM EDT Stevo Mccall MD ECG ORDERABLES MUSE SYSTEM * Echocardiogram Transthoracic(Leb) (09/11/2013 6:06 PM EDT) Anatomical Region Laterality Modality Other 09/12/2013 Narrative 09/12/2013 9:23 AM EDT Procedure: ? Transthoracic Echocardiogram Patient: ? CHRISTOPHE Roche ?(Age): 1955(58) Med Rec#: ?[id number] ? Sex: ?M ? Site Loc: ?[facility] ? Ht / Wt: ??170(cm)/69(kg) Pt. Loc: ? Adult Floor ?BSA: ?1.81 Study Date: ?09/11/2013 ? Pt. Type: Inpatient Tape: ? Referring: Stevo Mccall ??([id number]) Referring: ZARINA Director Emergency Department: Nika Fernandez Interpreting Fellow: Vicente Godwin ??([id number]) Diagnosis:CPT Code(s): ??Echo Full (05206), ??Spectral Doppler (27806), Color Doppler (18457), Indication(s): ??Chest Pain Rhythm: Sinus HR ?BP [...] ? Mid-Inferior ?Normal ? Mid-Inferoseptal ?Normal ? [place]-Septal ? Normal ? [place]-Anterior ? Normal ? [place]-Lateral ?Normal ? [place]-Inferior ? Normal ? [place]-Tip ?Normal ? Chambers ?Value ?Units (Range) ? [...] 09/12/2013 09:22:35 Images reviewed and interpretation verified [facility] Cardiac Ultrasound Laboratory Procedure Note Luis Azar MD - 09/12/2013 Procedure: Transthoracic Echocardiogram Patient: CHRISTOPHE Roche (Age): 1955(58) Med Rec#: [id number] Sex: M Site Loc: [facility] Ht / Wt: 170(cm)/69(kg) Pt. Loc: Adult Floor BSA: 1.81 Study Date: 09/11/2013 Pt. Type: Inpatient Tape: Referring: Stevo Mccall ([id number]) Referring: ZARINA Director Emergency Department: Nika Fernandez Interpreting Fellow: Vicente Godwin ([id number]) Diagnosis:CPT Code(s): Echo Full (93288), Spectral Doppler (37925), Color Doppler (25449), Indication(s): Chest Pain Rhythm: Sinus HR BP [...] [facility] the [facility], spectral Doppler and color Doppler performed. Wall Motion: Segment Name Rest Base-Anteroseptal Normal Base-Anterior Normal Base-Anterolateral Normal Base-Posterolateral Normal Base-Inferior Normal Base-Inferoseptal Normal Mid-Anteroseptal Normal Mid-Anterior Normal Mid-Anterolateral Normal Mid-Posterolateral Normal Mid-Inferior Normal Mid-Inferoseptal Normal [place]-Septal Normal [place]-Anterior Normal [place]-Lateral Normal [place]-Inferior Normal [place]-Tip Normal Chambers Value Units (Range) EF Bi-p [...] 09/12/2013 09:22:35 Images reviewed and interpretation verified [facility] Cardiac Ultrasound Laboratory Stevo Mccall MD ECHO ORDERABLES * (ABNORMAL) Differential, Automated (09/11/2013 3:40 PM EDT) Neutrophil % 64.0 34.0 - 71.0 % CERNER MILLENNIUM Neutrophil Absolute 6.96(H) 1.50 - 6.30 x10(3)/mc L CERNER MILLENNIUM Lymph % 24.1 19.0 - 53.0 % CERNER MILLENNIUM Lymphocytes Abs 2.6 1.0 - 3.6 x10(3)/mc L CERNER MILLENNIUM Monocyte % 9.2 4.0 - 13.0 % CERNER MILLENNIUM Monocyte Abs 1.0 0.2 - 1.0 x10(3)/mc L CERNER MILLENNIUM Eos % 1.6 0.0 - 7.0 % CERNER MILLENNIUM Eosinophils Abs 0.2 0.0 - 0.5 x10(3)/mc L CERNER MILLENNIUM Basophil % 0.4 0.0 - 2.0 % CERNER MILLENNIUM Baso [...] differential will be performed. Immature Gran Absolute 0.08(H) 0.00 - 0.05 x10(3)/mc L CERNER MILLENNIUM Blood specimen (specimen) 09/11/2013 3:40 PM EDT 09/11/2013 4:04 PM EDT Stevo Mccall MD HEMATOLOGY ORDERABLE S CERNER MILLENNIUM * Scan, Peripheral Blood (09/11/2013 3:40 PM EDT) Plat estimate Increased CERNER MILLENNIUM RBC Morphology Normal CERNE R MILLENNIUM Smudge cell Present CERRENAN HSIEHENNIUM Blood specimen (specimen) 09/11/2013 3:40 PM EDT 09/11/2013 4:04 PM EDT Narrative Resulting Agency Comment Spec In Lab Stevo Mccall MD HEMATOLOGY ORDERABLE S Performing Organization Address [facility] Co de Phone Number BRYN SANCHEZ * Cardiac Enzymes (09/11/2013 3:40 PM EDT) Troponin-T <0.03 <=0.03 ng/mL BRYN HSIEHENNIUM Comment: 0.03 ng/mL: Represents the 99th percentile upper reference limit for normals. >0.03 ng/mL: Elevated cardiac troponin T level indicative of myocardial damage. Diagnosis of acute, evolving or recent LA requires a typical rise and gradual fall [...] consensus document of the Joint Society of Cardiology/[employer] College of Cardiology Committee for the redefinition of myocardial infarction. ??Journal of the [place] College of Cardiology 2000; 36: 959-969] Creatine Kinase 70 0 - 200 unit/L BRYN DOYLEIUM Blood specimen (specimen) 09/11/2013 3:40 PM EDT 09/11/2013 4:04 PM EDT Narrative Resulting Agency Comment Spec In Lab Stevo Mccall MD CHEMISTRY ORDERABLES Performing Organization Address [facility]/ZIP Co de Phone Number BRYN SANCHEZ * (ABNORMAL) CBC (with Diff) (09/11/2013 3:40 PM EDT) White Blood Cell 10.9(H) 4.0 - 10.0 x10(3)/mc L BRYN HSIEHENNIUM Red Blood Cell 5.05 4.63 - 6.08 x10(6)/mc L CERNER MILLENNIUM Hemoglobin 15.1 13.7 - 17.5 gm/dL CERNER MILLENNIUM Hematocrit 44.4 40.0 - 51.0 % CERNER MILLENNIUM Mean Cell Volume 87.9 79.0 - 92.0 fL CERNER MILLENNIUM Mean Cell Hemoglobin 29.9 25.6 - 32.2 pg CERNER MILLENNIUM Mean Cell Hemoglobin Concentration 34.0 32.0 - 36.5 gm/dL CERNER MILLENNIUM Platelet 414(H) 145 - 370 x10(3)/mc L CERNER MILLENNIUM RDW Standard Deviation 45.5 35.0 - 46.0 fL CERNER MILLENNIUM RDW coefficient of variation 14.3 10.9 - 14.4 % CERNER MILLENNIUM Mean Platelet Volume 9.8 9.0 - 12.0 fL CERNER MILLENNIUM Blood specimen (specimen) 09/11/2013 3:40 PM EDT 09/11/2013 4:04 PM EDT Narrative Resulting Agency Comment Spec In Lab Stevo Mccall MD HEMATOLOGY ORDERABLE S Performing Organization Address [facility] Co de Phone Number [facility] * (ABNORMAL) APTT (09/11/2013 3:40 PM EDT) Partial Thromboplastin Time 39(H) 25 - 35 sec [facility] MILLENNIUM Comment: Recommended therapeutic PTT range for full dose unfractionated heparin is 80-114 seconds. Blood specimen (specimen) 09/11/2013 3:40 PM EDT 09/11/2013 4:04 PM EDT Narrative Resulting Agency Comment Spec In Lab Stevo Mccall MD HEMATOLOGY ORDERABLE S Performing Organization Address City/[facility] Co de Phone Number [facility] HSIEHSOUTHEASTERN ARI[facility] SERVICESIUM * Prothrombin Time (09/11/2013 3:40 PM EDT) Prothrombin Time 12.8 12.0 - 15.0 sec [facility] MILLENNIUM Comment: [facility] Transfusion Committee Guidelines: INR less than 2.0, PTT less than OR equal to 43.5 seconds, or Fibrinogen greater than or equal to 100 mg/dl indicate adequate procoagulant activity for hemostasis in patients without underlying bleeding disorders. International Normalization Ratio 0.9 0.9 - 1.1 [facility] MILLENNIUM Blood specimen (specimen) 09/11/2013 3:40 PM EDT 09/11/2013 4:04 PM EDT Narrative Resulting Agency Comment Spec In Lab Stevo Mccall MD HEMATOLOGY ORDERABLE S BRYN DOYLEIUM * (ABNORMAL) BMP w/fasting Glucose (09/11/2013 3:40 [...] of Diabetes Mellitus, Position Statement from the [place] Diabetes Association. ??Diabetes Care, Volume 33, Supplement 1, Jun 2009 Blood Urea Nitrogen 23(H) 10 - 20 mg/dL CERNER MILLENNIUM Creatinine 1.09 0.80 - 1.50 mg/dL CERNER MILLENNIUM Comment: Please note that the pediatric reference intervals supplied above were not validated at [facility]. Results from pediatric patients should [...] 100 98 - 107 mmol/L CERNER MILLENNIUM Carbon Dioxide 27 22 - 31 mmol/L CERNER MILLENNIUM Anion Gap 10 5 - 15 mmol/L CERNER MILLENNIUM Calcium 9.8 8.5 - 10.5 mg/dL CERNER MILLENNIUM Est [...] Mccall MD CHEMISTRY ORDERABLES Performing Organization Address City/[facility] Co de Phone Number BRYN DOYLEIUM * EKG 12 Lead (09/11/2013 3:12 PM EDT) Ventricular rate 83 BPM MUSE SYSTEM Atrial Rate 83 BPM MUSE SYSTEM P-R Interval 150 ms MUSE SYSTEM QRS Duration 72 ms MUSE SYSTEM Q-T Interval 366 ms MUSE SYSTEM QTC Calculated (Bezet) 430 ms MUSE SYSTEM Calculated P [place] 75 degrees MUSE SYSTEM Calculated R [place] 76 degrees MUSE SYSTEM Calculated T [place] 91 degrees MUSE SYSTEM INTERPRETATION Normal sinus rhythm Septal infarct , age undetermined Abnormal ECG No previous ECGs available Confirmed by PRIMO, ??BRITTA HIGUERA ([id number]) on 09/12/2013 11:05:22 AM MUSE SYSTEM 09/11/2013 3:12 PM EDT 09/12/2013 11:05 AM EDT Stevo Mccall MD ECG ORDERABLES Performing Organization Address City/[facility] Co de Phone Number MUSE SYSTEM documented [...] in sodium chloride 0.9% 50 mL infusion (CAR SEAT UPHOLSTERER) CONTINUOUS PRN, Starting on Wed09/12/13 at 0936, [...] Fallon RN) 1714 (Given - Provider: Gabby Giles, BOB) clopidogrel (PLAVIX) tablet 75 mg 75 mg, Oral, DAILY, First dose on Wed09/13/13 at 0900, Until Discontinued, Routine 0900 (Given - Provider: Juan Manuel Ellis, BOB) diaZEPam (VALIUM) tablet 5 mg (COMPLETED) 5 [...] 2013 (Given - Provider: Mare Fallon RN) 1336 (Given - Provider: Gabby Giles RN)2014 (Given - Provider: Gabby Rao RN) 09 (Given - Provider: Juan Manuel Ellis, BOB) ipratropium-albuterol (DUONEB) 0.5 mg-3 mg(2.5 mg base)/3 mL nebulizer solution 3 mL (CANCELED) 3 mL, Nebulization, 4 TIMES DAILY, First dose on Wed09/11/13 at 1700, Until Discontinued, Routine 165 (Given - Provider: Gabby Rao, BOB)2013 (Given - Provider: Mare Fallon RN) 09 (Not Given - Provider: Gabby Giles RN - Reason: Patient not available)133 (Given - Provider: Gabby Giles RN)1713 (Given - Provider: Gabby Giles RN)2014 (Not Given - Provider: Gabby Rao RN - Reason: Patient/family refused) 0900 (Given - Provider: Juan Manuel Ellis RN) lisinopril (PRINIVIL;ZESTRIL) tablet 10 mg (CANCELED) [...] Arabella Martin, BOB)0608 (Given - Provider: Arabella Martin RN)1200 (Due) nicotine (NICODERM CQ) 14 mg/24 hr [...] than 145 sec X 2 - 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 dry house operator See Bolus dosing guidance for aPTT values [...] RN)0802 (Stopped - Provider: Gabby Giles RN) sodium chloride 0.9% infusion () [...] in sodium chloride 0.9% 50 mL infusion (CAR SEAT UPHOLSTERER) (CANCELED) CONTINUOUS PRN, Starting on Wed09/12/13 at 0936, Until Wed09/12/13 at 1040, Cath (Intra-Procedure), Routine 09 (New Bag - Provider: Omero Ward RN) bivalirudin (ANGIOMAX) injection (CANCELED) ONCE PRN, Starting on Wed09/12/13 at 0933, Until Wed09/12/13 at 1040, Intra-Operative (Intra-Procedure), Routine 09 (Given - Provider: Omeor Ward RN) clopidogrel (PLAVIX) tablet (CANCELED) ONCE [...] (Intra-Procedure), Routine 0857 (Given - Provider: Bryce Camops) fentaNYL 50mcg/mL injection (CANCELED) ONCE PRN, Starting [...] Dr Sheth)1145 (Given - Provider: Kanika Dillon, RN)1347 (Given - Provider: Gabby Giles RN) [...] Patch documented in this encounter Care Teams Shoemaking Finisher Relationship Specialty Start Date End Date Edin Messina MD [address] [place] [address] [facility] [address] [place] [address] PCP - General 10/02/11 01/11/22 documented as of this encounter
--- OUTSIDE RECORDS SUMMARY | 2024-02-09 02:20 | XMS_ITS | Encounter Summary ---
Author Organization [facility] Address [facility] [place] [address] Care Team Providers Care Integration Aide Name Role Phone Nataliya Messina MD Primary Care Provider Encounter Details Date Type Department Care Team (Latest Contact Info) Description 09/12/2013 8:06 AM EDT - 09/12/2013 11:59 PM EDT Hospital Encounter [facility] [address] [place] [address] [facility] [place] [address] Discharge Disposition: Home Social History Tobacco Use [...] AM EDT Office Visit Hematology/Oncology at [address] [phone] [facility] [place] [address] [facility] [place] [address] documented as of this encounter Procedures Procedure Name Priority Date/Time Associated Diagnosis Comments CK-MB STUDY Routine 09/12/2013 5:30 PM EDT documented in this encounter Results * (ABNORMAL) CK-MB Study (09/12/2013 5:30 PM EDT) Creatine Kinase 218(H) 0 - 200 unit/L CERNER MILLENNIUM Comment:result rechecked-CONNOR CK-MB 19.2(H) 0.0 - 5.0 mcg/L CERNER MILLENNIUM CKMB Index 8.8(H) 0.0 - 5.0 mcg/u CERNER MILLENNIUM Blood specimen (specimen) 09/12/2013 5:30 PM EDT 09/12/2013 5:44 PM EDT Narrative Resulting Agency Comment Spec In Lab Rivas Rivero MD CHEMISTRY ORDERABLES [facility] МАРИЯOnehub documented in this encounter Visit Diagnoses Not on filedocumented in this encounter Care Teams Integration Aide Relationship Specialty Start Date End Date Nataliya Messina MD [address] [place] [address] [address] [place] [address] PCP - General 10/02/11 01/11/22 documented as of this encounter
--- OUTSIDE RECORDS SUMMARY | 2024-02-09 02:20 | XMS_ITS | Encounter Summary ---
Author Organization [place] [address] Care Team Providers Care Certification Technician Name Role Phone Edin Messina MD Primary Care Provider [phone] Reason for Referral * (Routine) - Closed by system - Referral Specialty Diagnoses / Procedures Referred By Contac t Referred To Contact Cardiac Rehabilitation Diagnoses Chest pain Stevo Mccall MD [facility] [place] [address] Referral ID Status Reason Start Date Expiration Date Visits Requested Visits Authorized [id number] Closed by system - Referral Evaluate and Treat 09/13/2013 03/12/2014 1 1 Encounter Details Date Type Department Care Team (Latest Contact Info) Description 09/11/2013 2:53 PM EDT - 09/13/2013 12:25 PM EDT Hospital Encounter [place] [address] Stevo Mccall MD [facility] [place] [address] Chest pain Discharge Disposition: Home [...] appointments: During 8am-5pm Wednesday through Wednesday call [phone] to speak with a nurse in the cardiology clinic All other times call [phone] and ask to speak to the plunger shovel operator production expediter. Return to work: Retired Driving: No driving for 48 hours after catheterization. Follow up Appointments: PCP EDIN MESSINA MD September 20, 2013 at 2:[address] [place] October 16, 2013 at 9:20 am Home [...] I have been to Nelly Gross, tobacco design specialist at [facility] and could go there again. I am [...] their effects. Discussed the Tobacco cessation resources: [place] quitline 8-096-FORF-NOW, [facility] tobacco treatment resources and the [place] Tobacco treatment program [phone]. Discussed alternative methods of dealing with cravings [...] past and will think about using the [place] Quitline for free tobacco treatment counseling and [...] Reason for Nutrition Intervention: Consult Diet Order: [facility] Appetite: good Food allergies: none Chewing/Swallowing difficulty: none (per patient) Ht Readings from Last 3 Encounters: 09/11/13 170.2 cm (5' 7) 09/11/13 170.2 cm (5' 7) 01/18/13 167.6 cm (5' 6) Wt Readings from Last 3 Encounters: 09/13/13 69.8 kg (153 lb 14.1 oz) 09/13/13 69.8 kg (153 lb 14.1 oz) 02/21/13 69.854 kg (154 lb) Body mass index is 24.10 kg/(m^2). Education: [facility] dietary guidelines. Guidelines for a Heart Healthy [...] of future questions arise. Nutrition Plan: Diet: [facility] Recommend Daily Multi Vitamins. Encourage good po intake. Monitor weight. Support and encouragement provided. Nutrition services to follow weekly thru hospital course unless consulted in the interim. ANAHI Jansen * Stevo Mccall MD - 09/13/2013 8:30 AM EDT Images from the original note were not included. Inpatient Cardiology Progress Note Patient Name: Britta Tillman Service: LADLE LINER / PA Responsible Attending: Stevo Mccall MD [...] infarction, prior to cardiac cath. Intra op NE. Chest pain post procedure was different than [...] Mccall MD Janette Stender, APRN 09/13/2013 Attending [employer] [facility] Discharge Day Addendum: Britta Tillman is a 58 y.o. male whom I saw today with associate provider Anitha Carlos APRN. I have independently interviewed and examined the patient and reviewed the pertinent diagnostic information. I agree with the principal findings documented above. The assessment and plan were formulated indiscussion with me. 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 Stevo Mccall MD, MS,, [facility] Staff [employer] * Lisa Jamison RN - 09/12/2013 2:57 PM EDT Reviewed record and received report from Anitha Carlos NP. Did not interview patient. Per Dr. Mccall:58 y.o. male who has ruled out for myocardial infarction. Chest pain at rest x 2 overnight on heparin gtt. Will plan for cardiac cath today. Unstable angina Stent insertion Social: and lives with his in [place], [place]. [place] [employer] Anticipated discharge needs: None expected at this time. Plan: Home with support of family when medically ready. No discharge needs anticipated at this time. CRC will follow clinical status and remain available if any needs should arise. Lisa Jamison RN, BSN covering CRC Remi Sky pager [phone]. * Rafael Foote - 09/12/2013 10:25 AM EDT ABSORB III ENROLLMENT NOTE ABSORB III RANDOMIZED CONTROLLED TRIAL A Clinical Evaluation of Absorb??? BVS, the Everolimus Eluting Bioresorbable Vascular Scaffold in the Treatment of Subjects with de rupal [place] Coronary Artery Lesions PI: Rivas Montesinos MD Pager #:[phone] Research Coordinators: ANIYA Pickering, BA, OPTICAL ADVISOR Pager #:[phone] Chacorta Sheikh RN Pager #: [phone] Purpose: The pivotal trial to support the [place] pre-market approval (PMA) of Absorb BVS. ABSORB III will evaluate the safety and effectiveness of the Absorb BVS System compared to the XIENCE in the treatment of subjects, including those with diabetes mellitus, with ischemic heart disease caused by up to two denovo [place] coronary artery lesions in separate epicardial vessels. [...] through 5 years post procedure. Study ID#: [id number], F NOTE: Patient must remain blinded to their assigned study device!! * Stevo Mccall MD - 09/12/2013 9:37 AM EDT Images from the original note were not included. Inpatient Cardiology Progress Note Patient Name: Britta Tillman Service: LADLE LINER / PA Responsible Attending: Stevo Mccall MD [...] report to come today. Ruled out for NE. Eager to get cardiac cath over with [...] today. Plan: Unstable angina, ruled out for NE On heparin gtt Cardiac cath today Echo [...] Mccall MD Janette Stender, APRN 09/12/2013 Attending [employer] Addendum: Britta Tillman is a 58 y.o. male whom I saw today 09/12/2013 with associate provider KAMALJIT Alvarenga. I have independently interviewed and examined the patient and reviewed the pertinent diagnosticinformation. I agree with the principal findings documented above. The assessment and plan were formulated in discussion with me. 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 Stevo Mccall MD, MS,, [facility] Staff [employer] * Rafael Foote - 09/12/2013 7:47 AM EDT ABSORB III RANDOMIZED CONTROLLED TRIAL A Clinical Evaluation of Absorb??? BVS, the Everolimus Eluting Bioresorbable Vascular Scaffold in the Treatment of Subjects with de rupal [place] Coronary Artery Lesions PI: Rivas Montesinos MD Pager #:[phone] Research Coordinators: Rafael Foote, BS, BA, OPTICAL ADVISOR Pager #:[phone] Chacorta Sheikh RN Pager #: [phone] Purpose: The pivotal trial to support the [place] pre-market approval (PMA) of Absorb BVS. ABSORB III will evaluate the safety and effectiveness of the Absorb BVS System compared to the XIENCE in the treatment of subjects, including those with diabetes mellitus, with ischemic heart disease caused by up to two denovo [place]osh[place] coronary artery lesions in separate epicardial vessels. [...] EMS was called and he went to [facility] for assessment. He was started on IV heparin gtt. His first troponin was normal. He had some chest discomfort on the ambulance ride down to [facility], but none since his arrival. Past Medical [...] Social History Narrative Lives with his in [place], [place]. 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 [...] MD Provider: ANITHA CARLOS APRN Provider #: [id number] 09/11/2013 Attending [employer] [facility] H&P Addendum: Britta Tillman is a 58 [...] and his . Stevo Mccall MD, MS,, [facility] Staff [employer] documented in this encounter Procedure Notes * Provider, Scanning - 09/14/2013 9:44 AM EDTAssociated Order(s): SCAN DOC: SOURCING SPECIALIST * Provider, Scanning - 09/14/2013 9:44 AM [...] rehab Inpatient Provider Contact Information: ANITHALARA CARLOS, STRATEGIC PLANNING CONSULTANT [phone] Discharge Diagnoses (Hospital Problems) and Secondary Diagnoses [...] EMS was called and he went to [facility] for assessment. He was started on IV heparin gtt. His first troponin was normal. He had some chest discomfort on the ambulance ride down to [facility], but none since his arrival. Hospital Course: Chest Pain, new CAD Given the patient's risk factors, EKG changes, it was decided to proceed with coronary angiography.The patient went to the cardiac laboratory scientist for a diagnostic cath which showed mid [...] appointments: During 8am-5pm Wednesday through Wednesday call [phone] to speak with a nurse in the cardiology clinic All other times call [phone] and ask to speak to the plunger shovel operator production expediter. Return to work: Retired Driving: No driving for 48 hours after catheterization. Follow up Appointments: PCP EDIN MESSINA MD September 20, 2013 at 2:[address] [place] October 16, 2013 at 9:20 am Home oxygen therapy: N/A Arrangements for VNA/home care: none Future Appointments and Orders Future Appointments: Provider: Department: Dept Phone: Center: 10/09/2013 1:30 PM Mary Ewing T Vascular Surgery [phone] [facility] 10/09/2013 3:00 PM Yvonne Wing APRN Vascular Surgery [phone] [facility] 10/16/2013 9:30 AM Lauri Winn Jr., MD [place] [facility] [phone] None Discharge References/Attachments None Anitha Carlos APRN [...] [facility] Referral: [facility] Activity Summary: By discharge, patient will be [...] AM EDT Office Visit Hematology/Oncology at [address] [phone] Heber Phillips MD [facility] [address] [place] [address] Isabella Baker APRN [facility] [place] [address] Scheduled Referrals Name Type Priority Associated Diagnoses Orde r Schedule Referral to Cardiac Rehab Outpatient Referral Routine Chest pain Ordered: 09/13/2013 documented as of this encounter Procedures Procedure Name Priority Date/Time Associated Diagnosis Comments SOURCING SPECIALIST SCAN 09/14/2013 9:44 AM EDT CARDIAC CATH SCAN 09/14/2013 9:4 4 AM EDT MISCELLANEOUS LAB REQUEST Timed 09/13/2013 9:50 AM EDT EKG 12-LEAD Routine 09/13/2013 7:14 AM EDT Chest pain BMP W/FASTING GLUCOSE Routine 09/13/2013 4:13 AM EDT SCAN, PERIPHERAL BLOOD Routine 4 4:13 AM EDT DIFFERENTIAL, AUTOMATED Routine 09/14/19 14 4:13 AM EDT CARDIAC ENZYMES ([facility]/CGP) Routine 09/13/2013 4:13 AM EDT CBC (WITH DIFF) Routine 09/13/2013 4:13 AM EDT EKG 12-LEAD Routine 09/12/2013 11:17 AM EDT Chest pain EKG 12-LEAD Routine 09/12/2013 10:33 AM EDT Chest pain CARDIAC CATHETERIZATION Routine 09/13/19 14 10:16 AM EDT CARDIAC ENZYMES ([facility]/CGP) Routine 09/12/2013 10:05 AM EDT EKG 12-LEAD STAT 09/12/2013 7:41 AM EDT Chest pain EKG 12-LEAD Routine 09/12/2013 5:04 AM EDT Chest pain BMP W/FASTING GLUCOSE Routine 09/12/2013 4:30 AM EDT DIFFERENTIAL, MANUAL Routine 09/12/2013 4:30 AM EDT CK-MB STUDY Routine 09/12/2013 4:30 AM EDT CARDIAC ENZYMES ([facility]/CGP) Routine 09/12/2013 4:30 AM EDT APTT Timed 09/12/2013 4:30 AM EDT CBC (WITH DIFF) Routine 09/12/2013 4:30 AM EDT TSH Routine 09/12/2013 4:30 AM EDT LDL CHOLESTEROL, DIRECT Routine 09/13/19 14 4:30 AM EDT HEMOGLOBIN A1C Routine 09/12/2013 4:30 AM EDT LIPID PANEL (REFLEX DIRECT LDL) Routine 09/12/2013 4:30 AM EDT CARDIAC ENZYMES ([facility]/CGP) STAT 09/11/2013 10:00 PM EDT APTT Timed 09/11/2013 10:00 PM EDT EKG 12-LEAD STAT 09/11/2013 8:00 PM EDT Chest pain ECHOCARDIOGRAM TRANSTHORACIC Routine 09/11/2013 6:06 PM EDT Chest pain BMP W/FASTING GLUCOSE STAT 09/11/2013 3:40 PM EDT SCAN, PERIPHERAL BLOOD STAT 4 3:40 PM EDT DIFFERENTIAL, AUTOMATED STAT 09/12/19 14 3:40 PM EDT CARDIAC ENZYMES ([facility]/CGP) STAT 09/11/2013 3:40 PM EDT APTT STAT [...] SCAN EXT O RDR/RSLT * SCAN DOC: SOURCING SPECIALIST (09/14/2013 9:44 AM EDT) Anatomical Region Laterality Modality Other Narrative 09/14/2013 9:47 AM EDT Procedure Note Provider, Scanning - 09/14/2013 9:44 AM EDT Scanning Provider MEDIA MGR SCAN EXT O RDR/RSLT * Miscellaneous Lab request (09/13/2013 9:50 AM EDT) Label Request received in lab. [facility] Blood specimen (specimen) 09/13/2013 9:50 AM EDT 09/13/2013 10:21 AM EDT Stevo Mccall MD LAB SEND OUT ORDERAB LES Performing Organization Address [facility] Co de Phone Number CERRENAN HSIEHENNIUM * EKG 12 Lead (09/13/2013 7:14 AM EDT) Ventricular rate 84 BPM MUSE SYSTEM Atrial Rate 84 BPM MUSE SYSTEM P-R Interval 158 ms MUSE SYSTEM QRS Duration 74 ms MUSE SYSTEM Q-T Interval 384 ms MUSE SYSTEM QTC Calculated (Bezet) 453 ms MUSE SYSTEM Calculated P Hooper 76 degrees MUSE SYSTEM Calculated R Hooper 71 degrees MUSE SYSTEM Calculated T Hooper 77 degrees MUSE SYSTEM INTERPRETATION Normal sinus rhythm Borderline criteria for Left atrial enlargement When compared with ECG of 12-SEP-2013 11:17, No significant change was found Confirmed by MD MESFIN, STEVO ([id number]) on 09/13/2013 1:31:57 PM MUSE SYSTEM 09/13/2013 7:14 AM EDT 09/13/2013 1:31 PM EDT Stevo Mccall MD ECG ORDERABLES Performing Organization Address [facility] de Phone Number MUSE SYSTEM * (ABNORMAL) [...] % 0.60 0.00 - 0.66 % CERNER МАРИЯENNIUM Comment: Immature granulocytes(IG's)percentage and absolute count will include metamyelocytes, myelocytes, and promyelocytes. Blood smears from CBCs yielding IG's will be scanned manually for concordance. If this scan disagrees with the automated IG or if promyelocytes are noted, a manual differential will be performed. Immature Gran Absolute 0.12(H) 0.00 - 0.05 x10(3)/mc L CERNER МАРИЯENNIUM Blood specimen (specimen) 09/13/2013 4:13 AM EDT 09/13/2013 4:18 AM EDT Stevo Mccall MD HEMATOLOGY ORDERABLE S Performing Organization Address [facility] de Phone Number BRYN SANCHEZ * Scan, Peripheral Blood (09/13/2013 4:13 AM EDT) Plat estimate Increased C[facility]RENAN [facility] RBC Morphology Normal CERNE R MILLENNIUM Blood specimen (specimen) 09/13/2013 4:13 AM EDT 09/13/2013 4:18 AM EDT Narrative Resulting Agency Comment Spec In Lab Stevo Mccall MD HEMATOLOGY ORDERABLE S Performing Organization Address [facility] Phone Number BRYN [facility]YLEFORMERLY [facility] * (ABNORMAL) BMP w/fasting Glucose (09/13/2013 4:13 AM EDT) Glucose Fasting 116(H) 65 - 99 mg/dL BRYN HSIEHENNIUM Comment: ?Fasting* Glucose Interpretive Criteria Normal ?65-99 [...] of Diabetes Mellitus, Position Statement from the [place] Diabetes Association. ??Diabetes Care, Volume 33, Supplement 1, Jun 2009 Blood Urea Nitrogen 19 10 - 20 mg/dL CERNER MILLENNIUM Creatinine 0.89 0.80 - 1.50 mg/dL CERNER MILLENNIUM Comment: Please note that the pediatric reference intervals supplied above were not validated at [facility]. Results from pediatric patients should be interpreted [...] In Lab Stevo Mccall MD CHEMISTRY ORDERABLES [facility] * (ABNORMAL) CBC (with Diff) (09/13/2013 4:13 AM EDT) [facility] White Blood Cell 21.4(H) 4.0 - 10.0 [...] Lab Stevo Mccall MD HEMATOLOGY ORDERABLE S [facility] * (ABNORMAL) Cardiac Enzymes (09/13/2013 4:13 AM EDT) [facility] Troponin-T 1.05(H) <=0.03 ng/mL CERNER MILLENNIUM Comment: [...] consensus document of the Joint Society of Cardiology/[place] College of Cardiology Committee for the redefinition of myocardial infarction. ??Journal of the [place] College of Cardiology 2000; 36: 959-969] Creatine Kinase 340(H) 0 - 200 unit/L CERRENAN HSIEHENNIUM Blood specimen (specimen) 09/13/2013 4:13 AM EDT 09/13/2013 4:18 AM EDT Narrative Resulting Agency Comment Spec In Lab Stevo Mccall MD CHEMISTRY ORDERABLES Performing Organization Address [facility] de Phone Number BRYN DOYLEIUM * EKG 12 Lead (09/12/2013 11:17 AM EDT) Ventricular rate 96 BPM MUSE SYSTEM Atrial Rate 96 BPM MUSE SYSTEM P-R Interval 154 ms MUSE SYSTEM QRS Duration 84 ms MUSE SYSTEM Q-T Interval 374 ms MUSE SYSTEM QTC Calculated (Bezet) 472 ms MUSE SYSTEM Calculated P Hooper 78 degrees MUSE SYSTEM Calculated R Hooper 74 degrees MUSE SYSTEM Calculated T Hooper 89 degrees MUSE SYSTEM INTERPRETATION Normal sinus rhythm Septal infarct , age undetermined Abnormal ECG When compared with ECG of 12-SEP-2013 10:33, No significant change was found Confirmed by PRIMO, ??BRITTA HIGUERA ([id number]) on 09/12/2013 12:26:08 PM MUSE SYSTEM 09/12/2013 11:1 7 AM EDT 09/12/2013 12:26 PM EDT Stevo Mccall MD ECG ORDERABLES Performing Organization Address [facility] Co de Phone Number MUSE SYSTEM * EKG 12 Lead (09/12/2013 10:33 AM EDT) Ventricular rate 92 BPM MUSE SYSTEM Atrial Rate 92 BPM MUSE SYSTEM P-R Interval 164 ms MUSE SYSTEM QRS Duration 74 ms MUSE SYSTEM Q-T Interval 364 ms MUSE SYSTEM QTC Calculated (Bezet) 450 ms MUSE SYSTEM Calculated P Hooper 77 degrees MUSE SYSTEM Calculated R Hooper 75 degrees MUSE SYSTEM Calculated T Hooper 85 degrees MUSE SYSTEM INTERPRETATION Normal sinus [...] 10:05 AM EDT) Troponin-T <0.03 <=0.03 ng/mL [employer] Comment: 0.03 ng/mL: Represents the 99th percentile [...] consensus document of the Joint Society of Cardiology/[place] College of Cardiology Committee for the redefinition of myocardial infarction. ??Journal of the [place] College of Cardiology 2000; 36: 959-969] Creatine Kinase 56 0 - 200 unit/L CERNER [employer] Blood specimen (specimen) 09/12/2013 10:05 AM EDT 09/12/2013 10:17 AM EDT Narrative Resulting Agency Comment Spec In Lab Stevo Mccall MD CHEMISTRY ORDERABLES Performing Organization Address [facility] de Phone Number BRYN SANCHEZ * EKG 12 Lead (09/12/2013 7:41 AM EDT) Ventricular rate 78 BPM MUSE SYSTEM Atrial Rate 78 BPM MUSE SYSTEM P-R Interval 166 ms MUSE SYSTEM QRS Duration 76 ms MUSE SYSTEM Q-T Interval 394 ms MUSE SYSTEM QTC Calculated (Bezet) 449 ms MUSE SYSTEM Calculated P Hooper 77 degrees MUSE SYSTEM Calculated R Hooper 78 degrees MUSE SYSTEM Calculated T Hooper 79 degrees MUSE SYSTEM INTERPRETATION Normal sinus rhythm Cannot rule out Septal infarct , age undetermined When compared with ECG of 12-SEP-2013 05:04, (unconfirmed) No significant change was found Confirmed by PRIMO, ?BRITTA GUADARRAMA ([id number]) on 09/12/2013 11:06:23 AM MUSE SYSTEM 09/12/2013 7:41 AM EDT 09/12/2013 11:06 AM EDT Stevo Mccall MD ECG ORDERABLES Performing Organization Address [facility] de Phone Number MUSE SYSTEM * EKG 12 Lead (09/12/2013 5:04 AM EDT) Ventricular rate 83 BPM MUSE SYSTEM Atrial Rate 83 BPM MUSE SYSTEM P-R Interval 162 ms MUSE SYSTEM QRS Duration 84 ms MUSE SYSTEM Q-T Interval 404 ms MUSE SYSTEM QTC Calculated (Bezet) 474 ms MUSE SYSTEM Calculated P Hooper 79 degrees MUSE SYSTEM Calculated R Hooper 78 degrees MUSE SYSTEM Calculated T Hooper 84 degrees MUSE SYSTEM INTERPRETATION Normal sinus rhythm Septal infarct (cited on or before 11-SEP-2013) When compared with ECG of 11-SEP-2013 20:00, No significant change was found Confirmed by PRIMO, BRITTA AGUSTIN ([id number]) on 09/12/2013 11:05:45 AM MUSE SYSTEM [...] Mccall MD CHEMISTRY ORDERABLES Performing Organization Address [facility] Co de Phone Number CERNER MILLENNIUM [...] MD HEMATOLOGY ORDERABLE S Performing Organization Address [facility] de Phone Number BRYN SANCHEZ * Cardiac Enzymes (09/12/2013 4:30 AM EDT) Troponin-T <0.03 <=0.03 ng/mL [facility] Comment: 0.03 ng/mL: Represents the 99th percentile [...] consensus document of the Joint Society of Cardiology/[place] College of Cardiology Committee for the redefinition of myocardial infarction. ??Journal of the [place] College of Cardiology 2000; 36: 959-969] Creatine Kinase 60 0 - 200 unit/L [facility] Blood specimen (specimen) 09/12/2013 4:30 AM EDT 09/12/2013 4:42 AM EDT Narrative Resulting Agency Comment Spec In Lab Stevo Mccall MD CHEMISTRY ORDERABLES Performing Organization Address [facility] de Phone Number BRYN SANCHEZ * (ABNORMAL) BMP w/fasting Glucose (09/12/2013 4:30 AM EDT) Glucose Fasting 164(H) 65 - 99 mg/dL [facility] Comment: ?Fasting* Glucose Interpretive Criteria [...] of Diabetes Mellitus, Position Statement from the [place] Diabetes Association. ??Diabetes Care, Volume 33, Supplement 1, Jun 2009 Blood Urea Nitrogen 28(H) 10 - 20 mg/dL CERNER MILLENNIUM Creatinine 0.96 0.80 - 1.50 mg/dL CERNER MILLENNIUM Comment: Please note that the pediatric reference intervals supplied above were not validated at [facility]. Results from pediatric patients should be interpreted [...] Mccall MD CHEMISTRY ORDERABLES Performing Organization Address [facility] Co de Phone Number CERRENAN DOYLEIUM * (ABNORMAL) CBC (with Diff) (09/12/2013 [...] Platelet Volume 9.9 9.0 - 12.0 fL CERNER MILLENNIUM Blood specimen (specimen) 09/12/2013 4:30 AM EDT 09/12/2013 4:41 AM EDT Narrative Resulting Agency Comment Spec In Lab Stevo Mccall MD HEMATOLOGY ORDERABLE S Performing Organization Address [facility] Co de Phone Number BRYN SANCHEZ * (ABNORMAL) APTT (09/12/2013 4:30 AM EDT) Partial Thromboplastin Time 104(H) 25 - 35 sec CERNER MILLENNIUM Comment: Recommended therapeutic PTT range for full dose unfractionated heparin is 80-114 seconds. Blood specimen (specimen) 09/12/2013 4:30 AM EDT 09/12/2013 4:41 AM EDT Narrative Resulting Agency Comment Spec In Lab Stevo Mccall MD HEMATOLOGY ORDERABLE S Performing Organization Address [facility] de Phone Number BRYN SANCHEZ * LDL Cholesterol, Direct (09/12/2013 4:30 AM EDT) LDL Cholesterol, Direct 85 <=99 mg/dL [facility] Comment: The National Cholesterol Education Program (NCEP) has set the following guidelines for LDL Cholesterol: Reference range: ?? Optimal: ?<100 mg/dL ?? Near Optimal/Above Optimal: ?? 100-129 mg/dL ?? Borderline high: ?130-159 mg/dL ?? High: ? 160-189 mg/dL ?? Very high: ?>cc=414 mg/dL DAO 2001: 285(19):6334-7266 Blood specimen (specimen) 09/12/2013 4:30 AM EDT 09/12/2013 4:41 AM EDT Narrative Resulting Agency Comment Spec In Lab Stevo Mccall MD CHEMISTRY ORDERABLES Performing Organization Address [facility] [place] de Phone Number BRYN SANCHEZ * (ABNORMAL) Hemoglobin A1c (09/12/2013 4:30 AM EDT) Hemoglobin A1c 6.1(H) <=5.6 % [facility]ERPR R [facility] Comment: As of 2013 the methodology for [...] Mellitus, Diabetes Care 2013; 36: Suppl. 1, F37-26 Estimated Average Glucose 128 mg/dL [facility] Comment: eAG equivalents for HbA1c percentages: HbA1c(%) [...] into estimated average glucose values. ??Diabetes Care 2008:31(8):3327-0057. Blood specimen (specimen) 09/12/2013 4:30 AM EDT 09/12/2013 4:41 AM EDT Narrative Resulting Agency Comment Spec In Lab Stevo Mccall MD CHEMISTRY ORDERABLES [facility] * (ABNORMAL) Lipid panel (fasting) (09/12/2013 4:30 AM EDT) [facility] Signature Cholesterol, Total 138 <=199 mg/dL [facility] Comment: Recommendations of the NCEP Adult Treatment Panel for the following risk cutoff thresholds for the [place] population: Desirable: <200 mg/dL Borderline High: 200-239 mg/dL High: > or = 240 mg/dL Triglyceride 59 <=149 mg/dL CERNER MILLENNIUM Comment: Reference Range: Normal triglycerides: ??<150 mg/dL Borderline high: ??150-199 mg/dL High: ??200-499 mg/dL Very high: ??>ui=058 mg/dL DAO 2001; 285(19):5686-5461 HDL Cholesterol 39(L) >=40 mg/dL CER NER MILLENNIUM Comment: Reference range: ??Low HDL: ?? < 40 mg/dL ??Normal: ?40-60 mg/dL ??Desirable: > 60 mg/dL DAO 2001; 285(19):3329-1574 LDL Cholesterol 87 <=99 mg/dL [facility] NER MILLENNIUM Comment: Reference range: ?? Optimal: ?<100 mg/dL ?? Near Optimal/Above Optimal: ?? 100-129 mg/dL ?? Borderline high: ?130-159 mg/dL ?? High: ? 160-189 mg/dL ?? Very high: ?>ub=773 mg/dL DAO 2001: 285(19):3829-3605 Cholesterol/HDL Ratio 3.5 ratio CERNER MILLENNIUM Comment: A Cholesterol to HDL ratio below 4:1 is desirable. ??Studies suggest that increased CAD risk occurs at ratios above 5 for females and above 6 for men. ? [place] Heart Association ??(http://www.americanheart.org) ? Jeri Int Med, 1994; 121:641 ? AM J Med, 1998; 105(1A):48S Blood specimen (specimen) 09/12/2013 4:30 AM EDT 09/12/2013 4:41 AM EDT Narrative Resulting Agency Comment Spec In Lab Stevo Mccall MD CHEMISTRY ORDERABLES Performing Organization Address City/[facility]/ZIP Co de Phone Number BRYN SANCHEZ * TSH (09/12/2013 4:30 AM EDT) Thyroid Stimulating Hormone 0.54 0.27 - 4.20 mcIU/mL BRYN DOYLEIUM Blood specimen (specimen) 09/12/2013 4:30 AM EDT 09/12/2013 4:41 AM EDT Narrative Resulting Agency Comment Spec In Lab Stevo Mccall MD CHEMISTRY ORDERABLES Performing Organization Address [facility] Co de Phone Number BRYN DOYLEIUM * Cardiac Enzymes (09/11/2013 10:00 PM EDT) Troponin-T <0.03 <=0.03 ng/mL BRYN [...] consensus document of the Joint Society of Cardiology/[place] College of Cardiology Committee for the redefinition of myocardial infarction. ??Journal of the [place] College of Cardiology 2000; 36: 959-969] Creatine Kinase 66 0 - 200 unit/L BRYN DOYLEIUM Blood specimen (specimen) 09/11/2013 10:00 PM EDT 09/11/2013 10:05 PM EDT Narrative Resulting Agency Comment Spec In Lab Stevo Mccall MD CHEMISTRY ORDERABLES Performing Organization Address City/[facility]/ZIP Co de Phone Number BRYN DOYLEIUM * (ABNORMAL) APTT (09/11/2013 10:00 PM EDT) Partial Thromboplastin Time 58(H) 25 - 35 sec BRYN SANCHEZ Comment: Recommended therapeutic PTT range for full dose unfractionated heparin is 80-114 seconds. Blood specimen (specimen) 09/11/2013 10:00 PM EDT 09/11/2013 10:05 PM EDT Narrative Resulting Agency Comment Spec In Lab Stevo Mccall MD HEMATOLOGY ORDERABLE S Performing Organization Address City/[facility]/ZIP Co de Phone Number BRYN SANCHEZ * EKG 12 Lead (09/11/2013 8:00 PM EDT) Ventricular rate 78 BPM MUSE SYSTEM Atrial Rate 78 BPM MUSE SYSTEM P-R Interval 164 ms MUSE SYSTEM QRS Duration 74 ms MUSE SYSTEM Q-T Interval 380 ms MUSE SYSTEM QTC Calculated (Bezet) 433 ms MUSE SYSTEM Calculated P Hooper 74 degrees MUSE SYSTEM Calculated R Hooper 74 degrees MUSE SYSTEM Calculated T Hooper 90 degrees MUSE SYSTEM INTERPRETATION Normal sinus rhythm Septal infarct (cited on or before 11-SEP-2013 ) Abnormal ECG Confirmed by PRIMO, ??BRITTA HIGUERA ([id number]) on 09/12/2013 11:05:39 AM MUSE SYSTEM 09/11/2013 8:00 PM EDT 09/12/2013 11:05 AM EDT Stevo Mccall MD ECG ORDERABLES Performing Organization Address [facility]/ZIP Co de Phone Number MUSE SYSTEM * Echocardiogram Transthoracic(Leb) (09/11/2013 6:06 PM EDT) Anatomical Region Laterality Modality Other 09/12/2013 Narrative 09/12/2013 9:23 AM EDT Procedure: ? Transthoracic Echocardiogram Patient: ? CHRISTOPHE Roche ?(Age): 1955(58) Med Rec#: ?[id number] ? Sex: ?M ? Site Loc: ?[facility] ? Ht / Wt: ??170(cm)/69(kg) Pt. Loc: ? Adult Floor ?BSA: ?1.81 Study Date: ?09/11/2013 ? Pt. Type: Inpatient Tape: ? Referring: Stevo Mccall ??(90) Referring: ZARINA Sweatband Decorating Machine Operator: Nika Fernandez Interpreting Fellow: Vicente Godwin ??([id number]) Diagnosis:CPT Code(s): ??Echo Full (55640), ??Spectral Doppler (79219), Color Doppler (93993), Indication(s): ??Chest Pain Rhythm: Sinus HR ?BP [...] ? Mid-Inferior ?Normal ? Mid-Inferoseptal ?Normal ? [place]-Septal ? Normal ? [place]-Anterior ? Normal ? [place]-Lateral ?Normal ? [place]-Inferior ? Normal ? [place]-Tip ?Normal ? Chambers ?Value ?Units (Range) ? [...] 09/12/2013 09:22:35 Images reviewed and interpretation verified [facility] Cardiac Ultrasound Laboratory Procedure Note Luis Azar MD - 09/12/2013 Procedure: Transthoracic Echocardiogram Patient: CHRISTOPHE Roche (Age): 1955(58) Med Rec#: [id number] Sex: M Site Loc: [facility] Ht / Wt: 170(cm)/69(kg) Pt. Loc: Adult Floor BSA: 1.81 Study Date: 09/11/2013 Pt. Type: Inpatient Tape: Referring: Stevo Mccall (94) Referring: ZARINA Sweatband Decorating Machine Operator: Nika Fernandez Interpreting Fellow: Vicente Godwin ([id number]) Diagnosis:CPT Code(s): Echo Full (55436), Spectral Doppler (97570), Color Doppler (24873), Indication(s): Chest Pain Rhythm: Sinus HR BP [...] Normal Mid-Posterolateral Normal Mid-Inferior Normal Mid-Inferoseptal Normal [place]-Septal Normal [place]-Anterior Normal [place]-Lateral Normal [place]-Inferior Normal [place]-Tip Normal Chambers Value Units (Range) EF Bi-p [...] 09/12/2013 09:22:35 Images reviewed and interpretation verified [facility] Cardiac Ultrasound Laboratory Stevo Mccall MD ECHO [...] Normal CERNE R MILLENNIUM Smudge cell Present CERNER MILLENNIUM Blood specimen (specimen) 09/11/2013 3:40 PM EDT 09/11/2013 4:04 PM EDT Narrative Resulting Agency Comment Spec In Lab Stevo Mccall MD HEMATOLOGY ORDERABLE S Performing Organization Address City/[facility] Co de Phone Number CERNER MILLENNIUM * Cardiac Enzymes (09/11/2013 3:40 PM EDT) Troponin-T <0.03 <=0.03 ng/mL CERNER MILLENNIUM [...] consensus document of the Joint Society of Cardiology/[place] College of Cardiology Committee for the redefinition of myocardial infarction. ??Journal of the [place] College of Cardiology 2000; 36: 959-969] Creatine Kinase 70 0 - 200 unit/L CERNER MILLENNIUM Blood specimen (specimen) 09/11/2013 3:40 PM EDT 09/11/2013 4:04 PM EDT Narrative Resulting Agency Comment Spec In Lab Stevo Mccall MD CHEMISTRY ORDERABLES Performing Organization Address [facility] Co de Phone Number CERRENAN HSIEHENNIUM * (ABNORMAL) CBC (with Diff) (09/11/2013 3:40 PM EDT) White Blood Cell 10.9(H) 4.0 - 10.0 x10(3)/mc L CERNER MILLENNIUM Red Blood Cell 5.05 4.63 - 6.08 [...] MD HEMATOLOGY ORDERABLE S Performing Organization Address [facility] Co de Phone Number BRYN DOYLEIUM * (ABNORMAL) APTT (09/11/2013 3:40 PM EDT) Partial Thromboplastin Time 39(H) 25 - 35 sec CERNER MILLENNIUM Comment: Recommended therapeutic PTT range for full dose unfractionated heparin is 80-114 seconds. Blood specimen (specimen) 09/11/2013 3:40 PM EDT 09/11/2013 4:04 PM EDT Narrative Resulting Agency Comment Spec In Lab Stevo Mccall MD HEMATOLOGY ORDERABLE S Performing Organization Address [facility] [place] de Phone Number BRYN SANCHEZ * Prothrombin Time (09/11/2013 3:40 PM EDT) Prothrombin Time 12.8 12.0 - 15.0 sec [facility] Comment: [facility] Transfusion Committee Guidelines: INR less than 2.0, PTT less than OR equal to 43.5 seconds, or Fibrinogen greater than or equal to 100 mg/dl indicate adequate procoagulant activity for hemostasis in patients without underlying bleeding disorders. International Normalization Ratio 0.9 0.9 - 1.1 [facility] Blood specimen (specimen) 09/11/2013 3:40 PM EDT 09/11/2013 4:04 PM EDT Narrative Resulting Agency Comment Spec In Lab Stevo Mccall MD HEMATOLOGY ORDERABLE S Performing Organization Address [facility] [place] de Phone Number BRYN SANCHEZ * (ABNORMAL) BMP w/fasting Glucose (09/11/2013 3:40 PM EDT) Glucose Fasting 105(H) 65 - 99 mg/dL [facility] Comment: ?Fasting* Glucose Interpretive Criteria [...] of Diabetes Mellitus, Position Statement from the [place] Diabetes Association. ??Diabetes Care, Volume 33, Supplement 1, Jun 2009 Blood Urea Nitrogen 23(H) 10 - 20 mg/dL CERNER MILLENNIUM Creatinine 1.09 0.80 - 1.50 mg/dL CERNER MILLENNIUM Comment: Please note that the pediatric reference intervals supplied above were not validated at [facility]. Results from pediatric patients should be interpreted [...] (Bezet) 430 ms MUSE SYSTEM Calculated P Hooper 75 degrees MUSE SYSTEM Calculated R Hooper 76 degrees MUSE SYSTEM Calculated T Hooper 91 degrees MUSE SYSTEM INTERPRETATION Normal sinus [...] than 145 sec X 2 - call household appliance assembler See Bolus dosing guidance for aPTT values [...] Gabby Giles RN)2014 (Given - Provider: Gabby Rao, BOB) 0900 (Given - Provider: Juan Manuel Ellis, BOB) ipratropium-albuterol (DUONEB) 0.5 mg-3 mg(2.5 mg base)/3 mL nebulizer solution 3 mL (CANCELED) 3 mL, Nebulization, 4 TIMES DAILY, First dose on Wed09/11/13 at 1700, Until Discontinued, Routine 1653 (Given - Provider: Gabby Rao RN)2013 (Given [...] RN) 0007 (Given - Provider: Pushpa Lopez, RN)0634 (Given - Provider: Pushpa Lopez RN)1337 (Given - Provider: Gabby Giles, BOB)1714 (Given - Provider: Gabby Giles, RN) 0020 (Given - Provider: Arabella Martin, RN)0608 (Given - Provider: Arabella Martin RN)1200 (Due) [...] than 145 sec X 2 - call household appliance assembler See Bolus dosing guidance for aPTT values [...] RN) 0513 (Rate/Dose Verify - Provider: Pushpa Lopez, BOB)0802 (Stopped - Provider: Gabby Giles, BOB) lactated ringers infusion (CANCELED) 100 mL/hr, Intravenous, CONTINUOUS, Starting on Wed09/12/13 at 0000, Until Wed09/13/13 at 1428 0007 (New Bag - Provider: Pushpa Lopez, BOB)0802 (Stopped - Provider: Gabby Giles, BOB) sodium [...] Until Wed09/12/13 at 1040, Cath (Intra-Procedure), Routine 08 (Given - Provider: Aristides Paulino RN) bivalirudin (ANGIOMAX) 250 mg in sodium chloride 0.9% 50 mL infusion (MEDICAL PSYCHOTHERAPIST) (CANCELED) CONTINUOUS PRN, Starting on Wed09/12/13 at 0936, Until Wed09/12/13 at 1040, Cath (Intra-Procedure), Routine 09 (New Bag - Provider: Omero Ward RN) bivalirudin (ANGIOMAX) injection (CANCELED) ONCE PRN, Starting on Wed09/12/13 at 0933, Until Wed09/12/13 at 1040, Intra-Operative (Intra-Procedure), Routine 09 (Given - Provider: Omero Ward RN) clopidogrel (PLAVIX) tablet (CANCELED) ONCE PRN, Starting on Wed09/12/13 at 0927, Until Wed09/12/13 at 1040, Intra-Operative (Intra-Procedure), Routine 09 (Given - Provider: Bryce Campos) fentaNYL 50mcg/mL [...] Pushpa Lopez RN)1050 (Given - Provider: Kanika Dillon RN - Comment: given per Dr Sheth)1145 [...] (Intra-Procedure) 1012 (New Bag - Provider: Omero Ward RN) No Frequency Medication Order 09/11/2013 09/12/2013 [...] Patch documented in this encounter Care Teams Certification Technician Relationship Specialty Start Date End Date Edin Messina MD [address] [place] [address] PCP - General 10/02/11 01/11/22 documented as of this encounter
--- OUTSIDE RECORDS SUMMARY | 2024-02-09 02:20 | XMS_ITS | Encounter Summary ---
Author Organization [facility] Address [facility] [place] [address] Care Team Providers Care Box Finisher Name Role Phone Nataliya Messina MD Primary Care Provider [phone] Encounter Details Date Type Department Care Team (Late Contact Info) Description 11/26/2011 Orders [place] [phone] Milli Dempsey RN Iliac artery occlusion (Primary [...] AM EDT Office Visit Hematology/Oncology at [address] [phone] Heber Phillips MD [facility] [address] HEMATOLOGY [place] [address] Isabella Baker APRN [facility] [place] [address] documented as of this encounter Visit Diagnoses Diagnosis 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
--- OUTSIDE RECORDS SUMMARY | 2024-02-09 02:20 | XMS_ITS | Encounter Summary ---
Author Organization [facility] Address [facility] [place] [address] Care Team Providers Care Cooper Apprentice Name Role Phone Nataliya Messina MD Primary Care Provider [phone] Encounter Details Date Type Department Care Team (Latest Contact Info) Description 02/21/2013 12:30 PM EDT Ancillary Appointment [place] [phone] Harry Hernandez [place] Carotid stenosis Social History [...] AM EDT Office Visit Hematology/Oncology at [address] [phone] Heber Phillips MD [facility] [address] [place] [address] Isabella Baker APRN [facility] [place] [address] documented as of this encounter Procedures Procedure Name Priority Date/Time Associated Diagnosis Comments CAROTID DUPLEX, BILATERAL Routine 02/21/2013 12:34 PM EDT Carotid stenosis documented in this encounter Results * Cerebrovascular Duplex, Bilateral (02/21/2013 12:34 PM EDT) VB Text Report Department: Vascular Surgery Lab Patient: [id number] (BRITTA SAEED) CPT Code: 74373 ICD-9: 433.1 Referring Physician: KRISTAN PATRICK Indication: [...] infarction documented in this encounter Care Teams Cooper Apprentice Relationship Specialty Start Date End Date Nataliya Messina MD [address] [place] [address] PCP - General 10/02/11 01/11/22 documented as of this encounter
--- OUTSIDE RECORDS SUMMARY | 2024-02-09 02:20 | XMS_ITS | Encounter Summary ---
Author Organization [facility] [place] [address] Care Team Providers Care Supervisor Steno Pool Name Role Phone Nataliya Messina MD Primary Care Provider [phone] Encounter Details Date Type Department Care Team (Late Contact Info) Description 10/02/2011 Orders Only [place] [address] Missy Manley MD [facility] [place] [address] Social History Tobacco Use Types Packs/Day Years [...] AM EDT Office Visit Hematology/Oncology at [address] [phone] Heber Phillips MD [facility] DR HEMATOLOGY [place] [address] Isabella Baker APRN [facility] [place] [address] documented as of this encounter Procedures Procedure [...] This is a non-reportable exam. Procedure Note Neville, Richard - 08/10/2013 This is a non-reportable exam. Missy Manley MD [employer]M LIBRARY ORDERABLES documented in this encounter Visit Diagnoses Not on filedocumented in this encounter Care Teams Supervisor Steno Pool Relationship Specialty Start Date End Date Nataliya Messina MD [address] [facility] [address] [facility] [address] [facility] [address] [place] [address] PCP - General 10/02/11 01/11/22 documented as of this encounter
--- OUTSIDE RECORDS SUMMARY | 2024-02-09 02:20 | XMS_ITS | Encounter Summary ---
Author Organization [facility] Address [facility] [place] [address] Care Team Providers Care Senior Portfolio Analyst Name Role Phone Nataliya Messina MD Primary Care Provider [phone] Encounter Details Date Type Department Care Team (Latest Contact Info) Description 12/07/2011 10:35 AM EDT - 12/07/2011 11:59 PM EDT Hospital [place] [address] Ortega Patrick MD [facility] [place] [address] PVD (peripheral vascular disease) Discharge Disposition: Home [...] AM EDT Office Visit Hematology/Oncology at [address] [phone] Heber Phillips MD [facility] [address] [place] [address] Isabella Baker APRN [facility] [place] [address] documented as of this encounter Visit Diagnoses Diagnosis PVD (peripheral vascular disease) Peripheral vascular disease, unspecified documented in this encounter Care Teams Senior Portfolio Analyst Relationship Specialty Start Date End Date Nataliya Messina MD [address] [facility] [address] [place] [address] PCP - General 10/02/11 01/11/22 documented as of this encounter
--- OUTSIDE RECORDS SUMMARY | 2024-02-09 02:20 | XMS_ITS | Encounter Summary ---
[place] [address] Care Team Providers Care Ad Trafficker Name Role Phone Nataliya Messina MD Primary Care Provider [phone] Reason for Visit * Reason Comments Other Encounter Details Date Type Department Care Team (Late st Contact Info) Description 10/07/2011 Telephone [place] [address] Yolande Perez RN Other Social [...] 10/07/2011 9:56 AM EDT Kanika Coon from [facility] called the Pain Management Center 10/06/11 with [...] that she sent a letter via fax ([phone]) for Dr. Briscoe to sign and fax [...] AM EDT Office Visit Hematology/Oncology at [address] [phone] Heber Phillips MD [facility] [address] [place] [address] Isabella Baker APRN [facility] [place] [address] documented as of this encounter Visit Diagnoses Not on filedocumented in this encounter Care Teams Ad Trafficker Relationship Specialty Start Date End Date Nataliya Messina MD [address] [place] [address] PCP - General 10/02/11 01/11/22 documented as of this encounter
--- OUTSIDE RECORDS SUMMARY | 2024-02-09 02:20 | XMS_ITS | Encounter Summary ---
Author Organization [facility] Address [facility] [place] [address] Care Team Providers Care Airplane Charter Clerk Name Role Phone Edin Messina MD Primary Care Provider Reason for Visit * Reason Comments Sciatica Encounter Details Date Type Department Care Team (Latest Contact Info) Description 10/02/2011 9:30 AM EDT Procedure [place] [address] Missy Manley MD [facility] [place] [address] Sciatica (Primary Dx) Discharge Disposition: Home Social [...] 2. 3. Patient states they have a regional otr company driver to transport after procedure? Yes 4. [...] this encounter Miscellaneous Notes * Miscellaneous - Thaddeus Oracle Application Consultant - 10/07/2011 11:13 PM EDT documented in this encounter Plan of Treatment Upcoming Encounters Date Type Department Care Team (Late st Contact Info) Description 03/28/2024 10:00 AM EDT Office Visit Hematology/Oncology at [address] [phone] Heber Phillips MD [facility] [place] [address] Isabella Baker APRN [facility] [place] [place] [address] documented as of this encounter Procedures Procedure [...] MANLEY MD prn MISSY MANLEY MD CC: DEIN MESSINA MD @[email or web address]@ Procedure Note Missy Manley [...] mg documented in this encounter Care Teams Airplane Charter Clerk Relationship Specialty Start Date End Date Edin Messina MD [address] [place] [address] PCP - General 10/02/11 01/11/22 documented as of this encounter
--- OUTSIDE RECORDS SUMMARY | 2024-02-09 02:20 | XMS_ITS | Encounter Summary ---
Author Organization [facility] Address [facility] [place] [address] Care Team Providers Care Gear Finisher Name Role Phone Nataliya Messina MD Primary Care Provider [phone] Encounter Details Date Type Department Care Team (Late Contact Info) Description 11/26/2011 Orders [place] [phone] Ortega Patrick MD [facility] [place] [address] Iliac artery occlusion (Primary Dx) Social History [...] AM EDT Office Visit Hematology/Oncology at [address] [phone] Heber Phillips MD [facility] HEMATOLOGY [place] [address] Isabella Baker APRN [facility] [place] [address] documented as of this encounter Results * [...] artery documented in this encounter Care Teams Gear Finisher Relationship Specialty Start Date End Date Nataliya Messina MD [address] [place] [address] PCP - General 10/02/11 01/11/22 documented as of this encounter
--- OUTSIDE RECORDS SUMMARY | 2024-02-09 02:20 | XMS_ITS | Encounter Summary ---
Author Organization [facility] Address [facility] [place] [address] Care Team Providers Care Caser Name Role Phone Nataliya Messina MD Primary Care Provider [phone] Reason for Visit * Reason Comments Carotid Stenosis Encounter Details Date Type Department Care Team (Late st Contact Info) Description 02/21/2013 1:30 PM EDT Follow-[place] [address] Yvonne Wing, DEVAN[facility] [place] [address] PVD (peripheral vascular disease) (Primary Dx); Carotid [...] ND, no palpable pulsatile masses Extremity - [place], warm, no ulceration, brisk capillary refill, no [...] AM EDT Office Visit Hematology/Oncology at [address] [phone] Heber Phillips MD [facility] DR [place] [address] Isabella Baker APRN [facility] [place] [address] documented as of this encounter Results * NALDO, legs, multiple levels (02/20/2014 1:26 PM EDT) [facility] VB Text Report Department: Vascular Surgery Lab Patient: [id number] (BRITTA SAEED) CPT Code: 55991 ICD-9: 440.21 Referring Physician: KRISTAN PATRICK Indication: ?? F/U PVOD ICD9 Diagnosis Code: 440.21 Diabetes Mellitus: ??No Definitions: ?? NALDO = Ankle / Brachial Systolic Pressure Index, TBI = Toe / Brachial Systolic Pressure Index Findings: Right ?Pressure (mm Hg) ?? NALDO ??Waveform ? Brachial Artery ?118 ? Dorsalis Pedis (Ankle) Artery ?76 ?0.64 ??Montague-Biphasic ?? Posterior Tibial (Ankle) Artery ??90 ?0.76 ??Montague-Biphasic ?? Left ? Pressure (mm Hg) ?? [...] Text Report Department: Vascular Surgery Lab Patient: [id number] (BRITTA SAEED) CPT Code: 21034 ICD-9: 433.10 Referring Physician: KRISTAN PATRICK Indication: [...] infarction documented in this encounter Care Teams Caser Relationship Specialty Start Date End Date Nataliya Messina MD [address] [place] [address] PCP - General 10/02/11 01/11/22 documented as of this encounter
--- OUTSIDE RECORDS SUMMARY | 2024-02-09 02:20 | XMS_ITS | Encounter Summary ---
Author Organization [facility] Address [facility] [place] [address] Care Team Providers Care Procurement Agent Name Role Phone Nataliya Messina MD Primary Care Provider [phone] Reason for Visit * Reason Onset Date Comments Advice Only 09/11/2013 Transfer request Encounter Details Date Type Department Care Team (Late st Contact Info) Description 09/11/2013 Telephone Cardiology at [address] [phone] Francisco Ferguson MD [facility] [place] [address] Advice Only (Transfer request) Social History Tobacco [...] AM EDT Telephone Note Caller: Dr. Bro, [facility] ED Reason: Transfer request Discussion: 58 yo [...] AM EDT Office Visit Hematology/Oncology at [address] [phone] Heber Phillips MD [facility] DR HEMATOLOGY [place] [address] Isabella Baker APRN [facility] [place] [address] documented as of this encounter Visit Diagnoses Not on filedocumented in this encounter Care Teams Procurement Agent Relationship Specialty Start Date End Date Nataliya Messina MD [address] [place] [address] [address] [place] [address] PCP - General 10/02/11 01/11/22 documented as of this encounter
--- OUTSIDE RECORDS SUMMARY | 2024-02-09 02:20 | XMS_ITS | Encounter Summary ---
Author Organization [facility] [place] [address] Care Team Providers Care Standards Engineer Name Role Phone Nataliya Messina MD Primary Care Provider [phone] Encounter Details Date Type Department Care Team (Late Contact Info) Description 11/11/2011 2:00 PM EDT Office [place] [phone] Lisa Rubio, RVT Carotid stenosis, bilateral; Decreased [...] Upcoming Encounters Date Type Department Care Team ([facility] Contact Info) Description 03/28/2024 10:00 AM EDT Office Visit Hematology/Oncology at [address] [phone] Heber Phillips MD [facility] DR HEMATOLOGY [place] [address] Isabella Baker APRN [facility] [place] [address] documented as of this encounter Procedures Procedure Name Priority Date/Time Associated Diagnosis Comments NALDO, LEGS, MULTIPLE LEVELS Routine 11/11/2011 1:59 PM EDT Decreased pulses in feet CAROTID DUPLEX, BILATERAL Routine 11/11/2011 1:59 PM EDT Carotid stenosis, bilateral documented in this encounter Results * NALDO, legs, multiple levels (11/11/2011 1:59 PM EDT) Pathologist [facility] VB Text Report Department: Vascular Surgery Lab Patient: [id number] (BRITTA SAEED) CPT Code: 49396 ICD-9: 440.22 Referring Physician: KRISTAN PATRICK Indication: [...] Text Report Department: Vascular Surgery Lab Patient: [id number] (BRITTA SAEED) CPT Code: 52197 ICD-9: 447.1 Referring Physician: KRISTAN PATRICK Indication: [...] statistics are based on comparisons performed at [facility] between noninvasive carotid artery duplex data and arteriographic evaluation of the same patients from 7582-6255. Q / A Sens. Spec. PPV NPV [...] system documented in this encounter Care Teams Standards Engineer Relationship Specialty Start Date End Date Nataliya Messina MD [address] [place] [address] PCP - General 10/02/11 01/11/22 documented as of this encounter
--- OUTSIDE RECORDS SUMMARY | 2024-02-09 02:20 | XMS_ITS | Encounter Summary ---
Author Organization [facility] Address [facility] [place] [address] Care Team Providers Care Chef & Owner Name Role Phone Nataliya Messina MD Primary Care Provider [phone] Reason for Visit * Reason Comments Carotid Stenosis Claudication Encounter Details Date Type Department Care Team (Late st Contact Info) Description 11/11/2011 3:00 PM EDT Office Visit [place] [address] Kristan Patrick MD [facility] [place] [address] Carotid stenosis, bilateral; Decreased pulses in feet; [...] AM EDT Office Visit Hematology/Oncology at [address] [phone] Heber Phillips MD [facility] HEMATOLOGY [place] [address] Isabella Baker APRN [facility] [place] [address] documented as of this encounter Results * NALDO, legs, multiple levels (11/11/2011 1:59 PM EDT) VB Text Report Department: Vascular Surgery Lab Patient: [id number] (BRITTA SAEED) CPT Code: 55091 ICD-9: 440.22 Referring Physician: KRISTAN PATRICK Indication: [...] Text Report Department: Vascular Surgery Lab Patient: [id number] (BRITTA SAEED) CPT Code: 49358 ICD-9: 447.1 Referring Physician: KRISTAN PATRICK Indication: [...] statistics are based on comparisons performed at [facility] between noninvasive carotid artery duplex data and arteriographic evaluation of the same patients from [id number]. Q / A Sens. Spec. PPV NPV [...] unspecified documented in this encounter Care Teams Chef & Owner Relationship Specialty Start Date End Date Nataliya Messina MD [address] [place] [address] PCP - General 10/02/11 01/11/22 documented as of this encounter
--- OUTSIDE RECORDS SUMMARY | 2024-02-09 02:20 | XMS_ITS | Encounter Summary ---
Author Organization [facility] [place] [address] Care Team Providers Care Laser Technician Name Role Phone Nataliya Messina MD Primary Care Provider [phone] Encounter Details Date Type Department Care Team (Late Contact Info) Description 01/06/2012 2:00 PM EDT Office [place] [phone] Mikki Tellez [place] PVD (peripheral vascular disease); [...] Upcoming Encounters Date Type Department Care Team ([facility] Contact Info) Description 03/28/2024 10:00 AM EDT Office Visit Hematology/Oncology at [address] [phone] Heber Phillips MD [facility] DR HEMATOLOGY [place] [address] Isabella Baker APRN [facility] [place] [address] documented as of this encounter Procedures Procedure Name Priority Date/Time Associated Diagnosis Comments NALDO, LEGS, MULTIPLE LEVELS Routine 01/06/2012 2:26 PM EDT PVD (peripheral vascular disease) Iliac artery occlusion documented in this encounter Results * NALDO, legs, multiple levels (01/06/2012 2:26 PM EDT) VB Text Report Department: Vascular Surgery Lab Patient: [id number] (BRITTA SAEED) CPT Code: 33680 ICD-9: 440.21 Referring Physician: KRISTAN PATRICK Indication: [...] Posterior Tibial (Ankle) Artery ??78 ? 0.56 ??Ellsworth-Biphasic Left ? Pressure (mmHg) ?? NALDO ??Waveform Brachial Artery ?138 Dorsalis Pedis (Ankle) Artery ?90 ? 0.65 ??Ellsworth-Biphasic Posterior Tibial (Ankle) Artery ??87 ? 0.63 ??Ellsworth-Biphasic Interpretation: RIGHT: Moderate lower extremity arterial occlusive [...] artery documented in this encounter Care Teams Laser Technician Relationship Specialty Start Date End Date Nataliya Messina MD [address] [place] [address] PCP - General 10/02/11 01/11/22 documented as of this encounter
--- OUTSIDE RECORDS SUMMARY | 2024-02-09 02:20 | XMS_ITS | Encounter Summary ---
Author Organization [facility] Address [facility] [place] [address] Care Team Providers Care Stem Dryer Maintainer Name Role Phone Edin Messina MD Primary Care Provider [phone] Encounter Details Date Type Department Care Team (Latest Contact Info) Description 12/07/2011 10:55 AM EDT - 12/07/2011 11:59 PM EDT Hospital [place] [phone] CLINIC, Kristan Pete MD [facility] [place] [address] PVD (peripheral vascular disease); Iliac artery occlusion [...] Blair RN - 12/07/2011 3:29 PM EDT [facility] Interventional Radiology Post Angiography Instructions Procedure bilateral [...] or hoildays, call and ask for the residential construction instructor customer consulting manager. OR Vascular Department at until 4:45pm. After 4:45pm call and ask for the Vascular resident customer consulting manager. 10. If you are a diabetic and [...] it, or have other questions please call [phone] as your followup is very important to [...] : 1955 (home) PCP EDIN MESSINA MD [phone] Date/Time of call: December 08, 2011/4:04 PM/ [...] of : 1955 AGE 56 y.o. Address: [address] [place] [address] [place] [address] (home) Mobile: No relevant phone numbers on [...] of 1.27cm. Patent right external iliac artery, MACHINE PRESERVATIVE FILLER, SFA, proximal PFA, popliteal artery, and proximal PLANT PRODUCTION WORKER and proximal peroneal artery with no [...] AM EDT Office Visit Hematology/Oncology at [address] [phone] Heber Phillips MD [facility] DR HEMATOLOGY [place] [address] Isabella Baker APRN [facility] [place] [address] documented as of this encounter Procedures Procedure Name Priority Date/Time Associated Diagnosis Comments VS ARTERIOGRAM LOWER EXTREMITY VASCULAR SURGERY Routine 12/07/2011 1:37 PM EDT Iliac artery occlusion CREATININE Routine 12/07/2011 10:46 AM EDT BUN Routine 12/07/2011 10:46 AM EDT documented in this encounter Results * NALDO, legs, multiple levels (01/06/2012 2:26 PM EDT) VB Text Report Department: Vascular Surgery Lab Patient: [id number] (BRITTA SAEED) CPT Code: 30088 ICD-9: 440.21 Referring Physician: KRISTAN PATRICK Indication: [...] Posterior Tibial (Ankle) Artery ??78 ? 0.56 ??Harris-Biphasic Left ? Pressure (mmHg) ?? NALDO ??Waveform Brachial Artery ?138 Dorsalis Pedis (Ankle) Artery ?90 ? 0.65 ??Harris-Biphasic Posterior Tibial (Ankle) Artery ??87 ? 0.63 ??Harris-Biphasic Interpretation: RIGHT: Moderate lower extremity arterial occlusive [...] . Pull and hold technique ?? Surgeons: Enedelia Patrick , Fredi Multani ?? Dye: Visipaque - 85 mL ?? [...] above were not validated at [facility]. Results from pediatric patients should be interpreted in conjunction to the patient's age, height and muscle mass. Est Glomerular Filtration Rate >60 >=60 BRYN SANCHEZ Comment: The National [...] Lab Kristan Patrick MD CHEMISTRY ORDERABLE S Performing Organization Address [facility] de Phone Number BRYN KelBilletAZUL * BUN (12/07/2011 10:46 AM EDT) Blood Urea Nitrogen 18 10 - 20 mg/dL BRYN [facility] [employer] [facility]AI[facility] Blood specimen (specimen) 12/07/2011 10:46 AM EDT 12/07/2011 10:50 AM EDT Narrative Resulting Agency Comment Spec In Lab Kristan Patrick MD CHEMISTRY ORDERABLE S Performing Organization Address City/[facility] Co de Phone Number BRYN SANCHEZ documented in this encounter Visit [...] mL/hr documented in this encounter Care Teams Stem Dryer Maintainer Relationship Specialty Start Date End Date Edin Messina MD [address] [place] [address] PCP - General 10/02/11 01/11/22 documented as of this encounter
--- OUTSIDE RECORDS SUMMARY | 2024-02-09 02:20 | XMS_ITS | Encounter Summary ---
Author Organization [facility] Address [facility] [place] [address] Care Team Providers Care Condenser Operator Name Role Phone Nataliya Messina MD Primary Care Provider Encounter Details Date Type Department Care Team (Late Contact Info) Description 10/09/2011 External Results XRay at [address] [place] [phone] Nataliya Messina MD [address] [place] [address] [phone] Social History Tobacco Use Types Packs/Day Years [...] AM EDT Office Visit Hematology/Oncology at [address] [phone] Heber Phillips MD [facility] [place] [address] Isabella Baker APRN [facility] [place] [address] documented as of this encounter Procedures Procedure Name Priority Date/Time Associated Diagnosis Comments MRI/MRA SCAN Routine 08/13/2011 documented in this encounter Results * Scan Doc: MRI/MRA (08/13/2011) Anatomical Region Laterality Modality Other Nataliya Messina MD MEDIA MGR SCAN EXT ORDR/RSLT documented in this encounter Visit Diagnoses Not on filedocumented in this encounter Care Teams Condenser Operator Relationship Specialty Start Date End Date Nataliya Messina MD [address] [place] [address] PCP - General 10/02/11 01/11/22 documented as of this encounter
--- OUTSIDE RECORDS SUMMARY | 2024-02-09 02:21 | XMS_ITS | Encounter Summary ---
Author Organization [facility] Address [address] [place] [address] Care Team Providers Care Professional Architect Name Role Phone Unknown, Provider Primary Care Provider Encounter Details Date Type Department Care Team (Late st Contact Info) Description 03/10/2017 Results Only [facility] [phone] Edin Messina MD [address] [place] [phone] Social History Tobacco Use Types Packs/Day Years [...] ? BRITTA SAEED ? Accession #: ? [id number] ? : ? 1955 (Age: 61) ??M [...] (ASCP) 03/11/2017 5:28 PM End of Report [facility] 03/10/2017 16:1 4 EDT 03/11/2017 16:14 EDT Edin Messina MD PATHOLOGY ORDERABLE S [facility] [address] [place] [address] documented in this encounter Visit Diagnoses Not on filedocumented in this encounter Care Teams Professional Architect Relationship Specialty Start Date End Date Unknown, Provider, PCP - General 04/26/15 documented as of this encounter
--- OUTSIDE RECORDS SUMMARY | 2024-02-09 02:21 | XMS_ITS | Encounter Summary ---
Author Organization [facility] Address [address] [place] [address] Care Team Providers Care Echometer Engineer Name Role Phone Unknown, Provider Primary Care Provider Encounter Details Date Type Department Care Team (Late st Contact Info) Description 03/24/2022 Lab Requisition [facility] Pathology & Laboratory Medicine - [facility] [address] [place] [address] Outr Resulting Lab, Provider Social History Tobacco [...] Urine 337 150-1,150 mOsm/kg 03/24/2022 17:37 EDT [facility] Urine URINE SPECIMEN COLLECTION, CLEAN CATCH / Unknown 03/24/2022 10:15 EDT 03/24/2022 17:02 EDT Provider Outr Resulting Lab URINALYSIS O RDERABLES [facility] [address] [place] [address] documented in this encounter Visit Diagnoses Not on filedocumented in this encounter Care Teams Echometer Engineer Relationship Specialty Start Date End Date Unknown, Provider, PCP - General 04/26/15 documented as of this encounter
--- OUTSIDE RECORDS SUMMARY | 2024-02-09 02:21 | XMS_ITS | Encounter Summary ---
Author Organization [facility] Address [address] [place] [address] Care Team Providers Care Client Advocate Name Role Phone Unknown, Provider Primary Care Provider Encounter Details Date Type Department Care Team (Late st Contact Info) Description 01/22/2021 Lab Requisition [facility] Pathology & Laboratory Medicine - [facility] [address] [place] [address] Outr Resulting Lab, Provider Social History Tobacco [...] 55.8 - 66.1 % 01/23/2021 13:51 EDT [facility] Alpha-1 % 5.7(H) 2.9 - 4.9 % 01/23/2021 13:51 EDT [facility] Alpha-2 % 11.2 7.1 - 11.8 % 01/23/2021 13:51 EDT [facility] Beta % 13.0 8.4 - 13.1 % 01/23/2021 13:51 [facility] Gamma % 12.9 11.1 - 18.8 % 01/23/2021 13:51 T [facility] SPEP Comment No apparent monoclonal protein seen on serum electrophoresis 01/23/2021 13:51 [facility] Comment:See scanned/suppleme ntary report. Total Protein 6.9 6.3 - 8.2 g/dL 01/23/2021 13:51 EDT [facility] Blood VENOUS BLOOD / Unknown 01/22/2021 10:10 EDT 01/22/2021 15:33 EDT Provider Outr Resulting Lab CHEMISTRY & BLOOD GAS ORDERABLES Performing Organization Address [facility] Co de Phone Number [facility] [address] [place] [address] * PROTEIN, TOTAL (01/22/2021 10:10 EDT) Blood VENOUS BLOOD / Unknown 01/22/2021 10:10 EDT 01/22/2021 15:33 EDT Provider Outr Resulting Lab CHEMISTRY & BLOOD GAS ORDERABLES [facility] [address] [place] [address] * HAPTOGLOBIN (01/22/2021 10:10 EDT) Haptoglobin 183 32 - 197 mg/dL 01/23/2021 9:28 EDT [facility] Blood VENOUS BLOOD / Unknown 01/22/2021 10:10 EDT 01/22/2021 15:33 EDT Provider Outr Resulting Lab CHEMISTRY & BLOOD GAS ORDERABLES [facility] [address] [place] [address] documented in this encounter Visit Diagnoses Not on filedocumented in this encounter Care Teams Client Advocate Relationship Specialty Start Date End Date Unknown, Provider, PCP - General 04/26/15 documented as of this encounter
--- OUTSIDE RECORDS SUMMARY | 2024-02-09 02:21 | XMS_ITS | Encounter Summary ---
Author Organization [facility] [place] [address] Care Team Providers Care Form Tamper Name Role Phone Nataliya Messina MD Primary Care Provider [phone] Encounter Details Date Type Department Care Team (Late Contact Info) Description 05/05/2009 [place] [phone] Nataliya Messina MD [address] [place] [address] [address] [facility] [address] [place] [address] Social History Tobacco Use Types Packs/Day Years [...] AM EDT Office Visit Hematology/Oncology at [address] [phone] Heber Phillips MD [facility] [address] [place] [address] Isabella Baker APRN [facility] [place] [address] documented as of this encounter Procedures Procedure Name Priority Date/Time Associated Diagnosis Comments FILM LIBRARY STORAGE ONLY DX CHEST Routine 05/05/2009 11:20 AM EST documented in this encounter Results * FILM LIBRARY- STORAGE ONLY DX CHEST (05/05/2009 11:20 AM EST) 05/05/2009 11:2 0 AM EST Narrative RAD - 12/15/2013 1:53 AM EDT This is a non-reportable exam. Procedure Note Richard Lozada - 12/15/2013 This is a non-reportable exam. Nataliya Messina MD IMG FILM LIBRARY OR DERABLES Performing Organization Address City/State/[facility] Co de Phone Number [facility] [address] [place] [address] documented in this encounter Visit Diagnoses Not on filedocumented in this encounter Care Teams Form Tamper Relationship Specialty Start Date End Date Nataliya Messina MD [address] [place] [address] [address] [place] [address] PCP - General 10/02/11 01/11/22 documented as of this encounter
--- OUTSIDE RECORDS SUMMARY | 2024-02-09 02:21 | XMS_ITS | Encounter Summary ---
[place] [address] Care Team Providers Care Processes Chemical Design Engineer Name Role Phone Edin Messina MD Primary Care Provider [phone] Reason for Visit * Reason Comments Low Back Pain With Radicular Pain right hip and leg Encounter Details Date Type Department Care Team (Late st Contact Info) Description 10/02/2011 7:15 AM EDT Office [place] [address] Missy Manley MD [facility] [place] [address] Low back pain radiating to right leg [...] year and being evaluated by PCP. 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 SIJ nontender Neuro Motor: Deltoid, biceps, triceps, bed manager 5/5 bilaterally. IP, quads, DF, EHL, PF [...] will provide this prescription, in the future iHeu Tillman PCP can taper based on side [...] 60 minutes with 35 minutes spent in seco-bi-hian education and counseling regarding management of chronic pain and coordination of care as described above. documented in this encounter Plan of Treatment Upcoming Encounters Date Type Department Care Team (Late st Contact Info) Description 03/28/2024 10:00 AM EDT Office Visit Hematology/Oncology at [address] [phone] Heber Phillips MD [facility] [place] [address] Isabella Baker APRN [facility] [place] [place] [address] documented as of this encounter Visit Diagnoses Diagnosis Low back pain radiating to right leg- Primary Lumbago documented in this encounter Care Teams Processes Chemical Design Engineer Relationship Specialty Start Date End Date Edin Messina MD [address] [place] [address] PCP - General 10/02/11 01/11/22 documented as of this encounter
--- OUTSIDE RECORDS SUMMARY | 2024-02-09 02:21 | XMS_ITS | Clinical Summary ---
Author Organization [facility] Address [address] [place] [address] Care Team Providers Care Surveillance Agent Name Role Phone Unknown, Provider Primary Care [...] COVID-19 Vaccine (2022-24 season) 2023 Care Teams Surveillance Agent Relationship Specialty Start Date End Date Unknown, Provider, PCP - General 04/26/15
--- OUTSIDE RECORDS SUMMARY | 2024-02-09 02:21 | XMS_ITS | Encounter Summary ---
Author Organization [facility] Address [facility] [place] [address] Care Team Providers Care Rocket Engine Tester Name Role Phone Nataliya Messina MD Primary Care Provider [phone] Encounter Details Date Type Department Care Team (Late st Contact Info) Description 08/13/2011 Orders Only [place] [phone] Missy Manley MD [facility] [place] [address] Social History Tobacco Use Types Packs/Day Years [...] AM EDT Office Visit Hematology/Oncology at [address] [phone] Heber Phillips MD [facility] [address] [place] [address] Isabella Baker APRN [facility] [place] [address] documented as of this encounter Procedures Procedure [...] Missy Manley MD [facility] FILM LIBRARY ORDERABLES RAD [address] [place] [address] documented in this encounter Visit Diagnoses Not on filedocumented in this encounter Care Teams Rocket Engine Tester Relationship Specialty Start Date End Date Nataliya Messina MD [address] [place] [address] PCP - General 10/02/11 01/11/22 documented as of this encounter
--- OUTSIDE RECORDS SUMMARY | 2024-02-09 02:21 | XMS_ITS | Encounter Summary ---
Author Organization [facility] Address [address] [place] [address] Care Team Providers Care Printed Circuit Board Pcb Draftsman Name Role Phone Unavailable Primary Care Provider Unavailabl e Encounter Details Date Type Department Care Team (Late st Contact Info) Description 05/10/2000 Results Only [facility] conversion [address] [place] [address] Wily Coronel MD [address] [place] [address] Social History Tobacco Use Types Packs/Day Years [...] ? BRITTA SAEED ? Accession #: ? [id number] ? : ? 1955 (Age: 44) ??M [...] is entirely submitted in one cassette. (Arjun Valenzuela)/[facility] End of Report [facility] 05/10/2000 05/11/2000 15: 04 EST Wily Coronel MD PATHOLOGY ORDERABLES Performing Organization Address City/State/[facility] Co de Phone Number [facility] [address] [place] [address] documented in this encounter Visit Diagnoses Not on filedocumented in this encounter
--- OUTSIDE RECORDS SUMMARY | 2024-02-09 02:21 | XMS_ITS | Encounter Summary ---
Author Organization [facility] Address [address] [place] [address] Care Team Providers Care Superintendent Stations Name Role Phone Unknown, Provider Primary Care Provider [phone] Encounter Details Date Type Department Care Team (Late st Contact Info) Description 12/02/2020 Lab Requisition [facility] Pathology & Laboratory Medicine - [facility] [address] [place] [address] Outr Resulting Lab, Provider Social History Tobacco [...] 0.0 - 4.5 ng/mL 12/02/2020 21:33 EDT [facility] Blood VENOUS BLOOD / Unknown 12/02/2020 9:49 EDT 12/02/2020 20:43 EDT Narrative [facility] - 12/02/2020 21:33 EDT NOTE: Serum PSA concentration should not be interpreted as absolute evidence for the presence or absence of malignant disease. Assayed on Siemens ADVIA Centaur XPT using chemiluminescent technology.??Values obtained by using different assay methods cannot be used interchangeably. Provider Outr Resulting Lab CHEMISTRY & BLOOD GAS ORDERABLES [facility] [address] [place] [address] documented in this encounter Visit Diagnoses Not on filedocumented in this encounter Care Teams Superintendent Stations Relationship Specialty Start Date End Date Unknown, Provider, PCP - General 04/26/15 documented as of this encounter
--- OUTSIDE RECORDS SUMMARY | 2024-02-09 02:21 | XMS_ITS | Encounter Summary ---
Author Organization [place] [address] Care Team Providers Care Greige Mender Name Role Phone Nataliya Messina MD Primary Care Provider [phone] Encounter Details Date Type Department Care Team (Late Contact Info) Description 01/01/2011 [place] [phone] Nataliya Messina MD [address] [place] [address] [address] Social History Tobacco Use Types Packs/Day Years [...] AM EDT Office Visit Hematology/Oncology at [address] [phone] Heber Phillips MD [facility] [address] [place] [address] Isabella Baker APRN [facility] [place] [address] documented as of this encounter Procedures Procedure Name Priority Date/Time Associated Diagnosis Comments FILM LIBRARY STORAGE ONLY DX CHEST Routine 01/01/2011 11:16 AM EDT documented in this encounter Results * FILM LIBRARY- STORAGE ONLY DX CHEST (01/01/2011 11:16 AM EDT) 01/01/2011 11:1 6 AM EDT Narrative RAD - 12/15/2013 1:53 AM EDT This is a non-reportable exam. Procedure Note Richard Lozada - 12/15/2013 This is a non-reportable exam. Nataliya Messina MD IMG FILM LIBRARY OR DERABLES [facility] [address] [address] documented in this encounter Visit Diagnoses Not on filedocumented in this encounter Care Teams Greige Mender Relationship Specialty Start Date End Date Nataliya Messina MD [address] [place] [address] [address] [facility] [address] [place] [address] PCP - General 10/02/11 01/11/22 documented as of this encounter
--- OUTSIDE RECORDS SUMMARY | 2024-02-09 02:21 | XMS_ITS | Encounter Summary ---
Author Organization [facility] Address [address] [place] [address] Care Team Providers Care Automatic Lathe Operator Name Role Phone Unknown, Provider Primary Care Provider Encounter Details Date Type Department Care Team (Latest Contact Info) Description 03/11/2017 15:27 EDT - 03/11/2017 23:59 EDT Hospital Encounter [address] [address] Unknown, Provider, Discharge Disposition: Home or Self Care Social History Tobacco Use Types Packs/Day Years Used Date Smoking Tobacco: Never Assessed Sex and Gender Information Value Date Recorded Sex Assigned at Not on file Gender Identity Not on file Sexual Orientation Not on file documented as of this encounter Discharge Disposition Disposition Code Departure Means Destination Home or Self Penitentiary documented in this encounter Plan of Treatment Not on file documented as of this encounter Visit Diagnoses Not on filedocumented in this encounter Care Teams Automatic Lathe Operator Relationship Specialty Start Date End Date Unknown, Provider, PCP - General 04/26/15 documented as of this encounter
--- OUTSIDE RECORDS SUMMARY | 2024-02-09 02:21 | XMS_ITS | Referral Summary ---
Author Organization [facility] Address [address] [place] [address] Care Team Providers Care Park Interpretive Specialist Name Role Phone Unknown, Provider Primary [...] of Treatment Not on file Care Teams Park Interpretive Specialist Relationship Specialty Start Date End Date Unknown, Provider, PCP - General 04/26/15
--- OUTSIDE RECORDS SUMMARY | 2024-02-09 02:21 | XMS_ITS | Encounter Summary ---
Author Organization [facility] Address [address] [place] [address] Care Team Providers Care Lacer And Tier Name Role Phone Unknown, Provider Primary Care Provider [phone] Encounter Details Date Type Department Care Team (Late st Contact Info) Description 09/27/[address] [facility] Pathology & Laboratory Medicine - [facility] [address] [place] [address] Outr Resulting Lab, Provider Social History Tobacco [...] Lab MICROBIOLOGY - GENERAL ORDERABLES [facility] [address] [place] [address] * COVID-19 TESTING (09/27/2020 9:05 EDT) COVID-19 rt-PCR Result Negative Negative 09/28/2020 13:[address] [facility] Comment: This test has [...] was performed using the leah SARS-CoV-2 assay ([employer] on the Leah 6800 System Performing Lab Leah [address] [facility] 09/28/2020 13:[address] [facility] Swab 09/27/2020 9:05 EDT 09/27/2020 17:02 EDT Provider Outr Resulting Lab MICROBIOLOGY - GENERAL ORDERABLES [facility] [address] [place] [address] documented in this encounter Visit Diagnoses Not on filedocumented in this encounter Care Teams Lacer And Tier Relationship Specialty Start Date End Date Unknown, Provider, PCP - General 04/26/15 documented as of this encounter
[2024-02-09] MEDS: Normal Saline Flush 10 ML SYR IVP (10:14)
== END 2024-02-19 23:59 | disposition home or self-care (01) ==
LOC: INF 02:10
PROVIDERS: PCP Nurse Practitioner Family; Visit Provider Nurse Practitioner Family
DX: Z45.2 Encounter for adjustment and management of vascular access device (principal)
CPT/HCPCS: 96523

== ENCOUNTER 2024-03-08 02:40 | Outpatient (RCR) | payer MEDICARE, SELFPAY ==
[2024-03-08] MEDS: Normal Saline Flush 10 ML SYR IVP (09:57)
== END 2024-03-20 23:59 | disposition home or self-care (01) ==
LOC: INF 02:40
PROVIDERS: PCP Nurse Practitioner Family; Visit Provider Nurse Practitioner Family
DX: Z45.2 Encounter for adjustment and management of vascular access device (principal)
CPT/HCPCS: 96523

== ENCOUNTER 2024-05-02 03:26 | Outpatient (RCR) | payer MEDICARE, SELFPAY ==
[2024-05-02 09:47] LABS: Abs Immature Grans 0.12 10^3/uL (0.0-0.06); Absolute Basophil Count 0.08 10^3/uL (0.0-0.2); Absolute Eosinophil Count 0.24 10^3/uL (0.0-0.7); Absolute Monocyte Count 1.02 10^3/uL (0.1-0.8); Absolute Neutrophil Count 7.36 10^3/uL (1.2-6.7); Basophils % 0.8 %; Eosinophils % 2.5 %; HCT 42.5 % (40.0-50.0); HGB 14.1 g/dL (13.5-17.5); Immature Grans % 1.3 %; Lymphocytes % 7.4 %; MCH 29.9 pg (27.0-33.0); MCHC 33.2 % (32.0-36.0); MCV 90 fL (80-95); MPV 9.3 fL (8.0-11.0); Monocytes % 10.7 %; Neutrophils % 77.3 %; Platelet Count 345 10^3/uL (130-400); RBC 4.72 10^6/uL (4.36-5.78); RDW 14.6 % (11.8-14.1); RDW-SD 48.8 fL; WBC 9.52 10^3/uL (4.4-10.8)
[2024-05-02] MEDS: Normal Saline Flush 10 ML SYR IVP (09:51)
[2024-05-02 10:17] LABS: ALT 36 U/L (16-63); AST 21 U/L (15-37); Alkaline Phosphatase 102 U/L (46-116); Anion Gap 8.3 mmol/L (3-11); BUN 40 mg/dL (7-18); Bilirubin, Total 0.34 mg/dL (0.2-1.0); CO2 28.7 mmol/L (21.0-32.0); CREATININE 1.3 mg/dL (0.70-1.30); Calcium 9.6 mg/dL (8.5-10.1); Chloride 105 mmol/L (98-107); Estimated GFR 59.47 (mL/min/1.73m2); Ferritin 159 ng/mL (26-388); Glucose 111 mg/dL (74-106); Potassium 4.2 mmol/L (3.5-5.1); Sodium 142 mmol/L (136-145)
[2024-05-02 10:28] LABS: Iron 65 ug/dL (65-175); Total Iron Binding Capacity 317 ug/dL (250-450); Transferrin Sat 21 % (20-55)
== END 2024-05-20 23:59 | disposition home or self-care (01) ==
LOC: INF 03:26
PROVIDERS: PCP Nurse Practitioner Family; Visit Provider Nurse Practitioner
DX: Z45.2 Encounter for adjustment and management of vascular access device; C34.11 Malignant neoplasm of upper lobe, right bronchus or lung; D50.9 Iron deficiency anemia, unspecified
CPT/HCPCS: 36591; 80053; 82728; 83540; 83550; 85025

== ENCOUNTER → 2024-05-04 10:37 | Outpatient (BNVA) | payer MEDICARE, SELFPAY | PROVIDERS: PCP Nurse Practitioner Family; Referring Provider Nurse Practitioner Family; Visit Provider Physician Assistant Surgical | DX: J44.9 Chronic obstructive pulmonary disease, unspecified (principal); Z87.891 Personal history of nicotine dependence; Z85.118 Personal history of other malignant neoplasm of bronchus and lung | CPT/HCPCS: 99214 ==

== ENCOUNTER 2024-05-11 03:51 | Outpatient (CLI) | payer MEDICARE, SELFPAY ==
[2024-05-11] MEDS: Inhaler, Assist Device 1 EACH MC (11:01)
[2024-05-11] MEDS: Levalbuterol HFA 15 GM INH 4 PUFF IH (11:02)
--- NOTE | 2024-05-22 14:42 | W.PFT ---
Date of service: 05/11/24 Time of Service: 10:02 Pulmonary Function Test Result Indications: COPD Interpretation Spirometry: There is very severe airflow limitation. No significant bronchodilator effect. Lung Volumes: Hyperinflation and air trapping are present Diffusion Capacity: Severely reduced diffusion Airway Pressure: Increased airways resistance Impression Severe airflow obstruction with air trapping and a diminished diffusion Clinical Correlation therefore is recommended.
== END 2024-05-11 03:52 | disposition home or self-care (01) ==
LOC: RT 03:51
PROVIDERS: PCP Nurse Practitioner Family; Visit Provider Student in an Organized Health Care Education/Training Program
DX: J44.9 Chronic obstructive pulmonary disease, unspecified (principal)
CPT/HCPCS: 94060; 94726; 94729

== ENCOUNTER 2024-05-30 01:47 | Outpatient (RCR) | payer MEDICARE, SELFPAY ==
[2024-05-30] MEDS: Normal Saline Flush 10 ML SYR IVP (09:49)
== END 2024-06-20 23:59 | disposition home or self-care (01) ==
LOC: INF 01:47
PROVIDERS: PCP Nurse Practitioner Family; Visit Provider Nurse Practitioner
DX: Z45.2 Encounter for adjustment and management of vascular access device (principal)
CPT/HCPCS: 96523

== ENCOUNTER 2024-07-04 03:16 | Outpatient (RCR) | payer MEDICARE, SELFPAY ==
[2024-07-04] MEDS: Normal Saline Flush 10 ML SYR IVP (10:34)
== END 2024-07-21 23:59 | disposition home or self-care (01) ==
LOC: INF 03:16
PROVIDERS: PCP Nurse Practitioner Family; Visit Provider Nurse Practitioner
DX: Z45.2 Encounter for adjustment and management of vascular access device (principal)
CPT/HCPCS: 96523

== ENCOUNTER 2024-07-18 03:16 | Outpatient (CLI) | payer MEDICARE, SELFPAY ==
[2024-07-18 18:45] LABS: Hepatitis C Ab w Rflx HCV PCR Negative (Negative)
== END 2024-07-18 03:17 | disposition home or self-care (01) ==
LOC: LOS 03:16
PROVIDERS: PCP Nurse Practitioner Family; Visit Provider Nurse Practitioner Family
DX: Z00.00 Encounter for general adult medical examination without abnormal findings (principal); I71.40 Abdominal aortic aneurysm, without rupture, unspecified; I73.9 Peripheral vascular disease, unspecified
CPT/HCPCS: 86803

== ENCOUNTER → 2024-10-31 10:41 | Outpatient (BNVA) | payer MEDICARE, SELFPAY | PROVIDERS: PCP Nurse Practitioner Family; Referring Provider Nurse Practitioner Family; Visit Provider Physician Assistant Surgical | DX: J44.9 Chronic obstructive pulmonary disease, unspecified (principal); Z87.891 Personal history of nicotine dependence; Z85.118 Personal history of other malignant neoplasm of bronchus and lung | CPT/HCPCS: 99214 ==

== ENCOUNTER 2024-11-30 21:45 | Inpatient (IN) | payer MEDICARE, SELFPAY ==
[2024-11-30] VITALS (26 sets, daily range): BP systolic 103–191; BP diastolic 40–104; PULSE 93–118; RESP 16–23; TEMP 38.2; O2SAT 78–99
--- NOTE | 2024-11-30 21:45 | RT.EKG_ITS ---
APPROVED REPORT Exam: Resting ECG Reason for Exam: SOB Patient Location: E HR:115 bpm ECG Measurements Heart Rate 115 AXIS MN 155 P 78 QRSd 79 QRS 73 QT 312 T 70 QTc 433 Conclusion Sinus tachycardia 115 no stemi
[2024-11-30 22:10] LABS: Abs Immature Grans 0.13 10^3/uL (0.0-0.06); Absolute Basophil Count 0.08 10^3/uL (0.0-0.2); Absolute Lymphocyte Count 0.49 10^3/uL (1.2-3.4); Absolute Monocyte Count 1.38 10^3/uL (0.1-0.8); Basophils % 0.5 %; Eosinophils % 0.9 %; HCT 45.7 % (40.0-50.0); HGB 14.4 g/dL (13.5-17.5); Immature Grans % 0.8 %; MCH 28.7 pg (27.0-33.0); MCHC 31.5 % (32.0-36.0); MCV 91 fL (80-95); MPV 9.5 fL (8.0-11.0); Monocytes % 8.4 %; Neutrophils % 86.4 %; Platelet Count 357 10^3/uL (130-400); RBC 5.02 10^6/uL (4.36-5.78); RDW 15.1 % (11.8-14.1); WBC 16.45 10^3/uL (4.4-10.8)
[2024-11-30 22:12] LABS: Absolute Eosinophil Count 0.15 10^3/uL (0.0-0.7); Absolute Neutrophil Count 14.21 10^3/uL (1.2-6.7)
[2024-11-30] MEDS: nitroGLYcerin 0.4 MG TAB SL ×2 (22:12→22:30)
[2024-11-30] MEDS: Albuterol/Ipratropium 3 ML UPD VIAL UPD ×3 (22:13)
[2024-11-30] MEDS: Aspirin 81 MG CHEW 324 MG CH (22:13)
[2024-11-30] MEDS: methylPREDNISolone SUCC 125 MG VIAL IVP (22:14)
--- NOTE | 2024-11-30 22:14 | DI.RAD_ITS ---
Exam(s) XR PORTABLE CHEST AP EXAM: XR PORTABLE CHEST AP CLINICAL HISTORY: Chest pain. TECHNIQUE: 2D digital imaging was performed. COMPARISON: CR XR PORTABLE CHEST AP from 05/16/2021 FINDINGS: Single AP portable view. Previously present right sided Port-A-Cath is been removed. Pleural thickening in the right lung apex without obvious overlying rib destruction is unchanged. No new right lung findings. There is, however, infiltrate in the left lung base. There are no pleural effusions. IMPRESSION: Left lower lobe infiltrate. DATA REPOSITORY: RADIATION DOSE DELIVERED:
[2024-11-30 22:24] LABS: PTT Activated 26.3 sec (20.6-30.2)
--- NOTE | 2024-11-30 22:28 | W.ED.GENAD ---
Discharge Plan Disposition Patient Disposition: Admit to [facility] Condition: Fair Discharge Details Clinical Impression: Pneumonia, Chronic obstructive pulmonary disease, SOB (shortness of breath), Fever, Hypoxia Primary Care Provider: Sayra Hawk ED Provider: Vince Matt Home Meds and New Rx's Prescriptions: No Action fiber Tablet 1 tab PO DAILY guaifenesin [Mucinex] 600 mg tablet extended release 12hr 600 mg PO BID Qty: 60 12RF Breztri Aerosphere 160-9-4.8 mcg/actuation HFA aerosol inhaler 2 inh inhalation BID Qty: 10.7 12RF Oxygen 2 l/min inhalation .exertion Qty: 99 0RF nitroglycerin 0.4 mg tablet, sublingual 0.4 mg sublingual Q5-15M PRN (Reason: chest pain) Qty: 25 3RF Rx Instructions: 1 tablet every 5 minutes x 3 doses if needed for chest pain. Seek emergency services if not improving after first dose pantoprazole 20 mg tablet,delayed release (DR/EC) 20 mg PO DAILY Qty: 90 3RF aspirin [Aspir-81] 81 MG tablet,delayed release (DR/EC) 1 tab PO DAILY Qty: 90 4RF ipratropium-albuterol 0.5 mg-3 mg(2.5 mg base)/3 mL solution for nebulization See Rx Instructions .ROUTE .COMPLEX Qty: 180 12RF Dose Instruction: INHALE THE CONTENTS OF 1 VIAL VIA NEBULIZER EVERY 4 HOURS NEEDED FOR COPD Rx Instructions: INHALE THE CONTENTS OF 1 VIAL VIA NEBULIZER EVERY 4 HOURS NEEDED FOR COPD metoprolol succinate 50 mg tablet extended release 24 hr 50 mg PO DAILY Qty: 90 2RF lisinopril 20 mg tablet 20 mg PO DAILY Qty: 90 3RF atorvastatin 80 mg tablet 80 mg PO DAILY Qty: 90 3RF Combivent Respimat 20-100 mcg/actuation mist 1 puff inhalation QID PRN (Reason: shortness of breath or wheezing) Qty: 4 6RF azithromycin 250 mg tablet See Rx Instructions .ROUTE .COMPLEX Qty: 90 4RF Dose Instruction: TAKE ONE TABLET BY MOUTH EVERY DAY Rx Instructions: TAKE ONE TABLET BY MOUTH EVERY DAY RSVPreF3 antigen-AS01E (PF) 120 mcg/0.5 mL suspension for reconstitution 0.5 ml IM ONCE Qty: 1 0RF Rx Instructions: as a single dose Benadryl Allergy 50 mg tablet 50 mg PO ONCE PRN (Reason: allergy symptoms) Qty: 1 0RF Rx Instructions: Take 1 tablet one hour prior to contrast administration acetaminophen [Tylenol] 325 MG tablet 650 mg PO Q4H PRN PRN0RF HPI General Date/Time Provider Initiated Documentation: 11/30/24 21:59. Limitations to Documentation: no limitations. Information obtained by: patient. HPI Narrative: 69-year-old gentleman with past medical history of small cell lung cancer (completed chemotherapy and radiation), CAD (stents), PVD, AAA, hypertension, COPD presents for evaluation of chest pain and shortness of breath. He reports that yesterday he started having an episode of shortness of breath while at a graduation event. He states that he gets claustrophobic and anxious so at that point he used his oxygen for a little bit. He reports that that made him feel better. Then he woke up twice throughout the night feeling short of breath during which he used oxygen again. He uses his oxygen at 2 L which is enough to help him. This evening about 1 hour prior to arrival he reports left-sided intermittent sharp stabbing chest pain. He did take 1 nitroglycerin and a DuoNeb en route to the hospital. He reports that he does feel better now that he is here. Nursing staff reports that on arrival he was 78%. And was placed on 4 L of oxygen. Related Data Home Medications ?Medication ?Instructions ?Recorded ?Confirmed aspirin 81 mg tablet,delayed 1 tab PO DAILY #90 tab-caps 07/07/17 11/30/24 release (Aspir-) acetaminophen 325 mg tablet 650 mg (2 x 325 mg) PO Q4H PRN PRN 11/03/17 11/30/24 (Tylenol) Oxygen 2 l/min inhalation .exertion #99 ea 09/16/21 11/30/24 nitroglycerin 0.4 mg sublingual 0.4 mg sublingual Q5-15M PRN chest 07/19/23 11/30/24 tablet pain #25 tabs pantoprazole 20 mg tablet,delayed 20 mg PO DAILY #90 tabs 11/17/23 11/30/24 release ipratropium 0.5 mg-albuterol 3 mg See Rx Instructions .Route 03/15/24 11/30/24 (2.5 mg base)/3 mL nebulization .COMPLEX #180 mL soln metoprolol succinate 50 mg 50 mg PO DAILY #90 tabs 05/01/24 11/30/24 tablet,extended release 24 hr fiber 1 tab PO DAILY 05/04/24 11/30/24 guaifenesin 600 mg tablet, 600 mg PO BID #60 tabs 05/04/24 11/30/24 extended release 12 hr (Mucinex) atorvastatin 80 mg tablet 80 mg PO DAILY #90 tabs 06/07/24 11/30/24 lisinopril 20 mg tablet 20 mg PO DAILY #90 tabs 06/07/24 11/30/24 ipratropium 20 mcg-albuterol 100 1 puff inhalation QID PRN 07/05/24 11/30/24 mcg/actuation mist for inhalation shortness of breath or wheezing #4 (Combivent Respimat) grams azithromycin 250 mg tablet See Rx Instructions .Route 07/17/24 11/30/24 .COMPLEX #90 tabs RSVPreF3 antigen-AS01E 0.5 ml IM ONCE #1 ea 08/24/24 11/30/24 adjuvant(PF) 120 mcg/0.5 mL IM suspension, kit diphenhydramine HCl 50 mg tablet 50 mg PO ONCE PRN allergy symptoms 08/31/24 11/30/24 (Benadryl Allergy) #1 tab budesonide 160 mcg-glycopyr 9 2 inh inhalation BID #10.7 grams 10/31/24 11/30/24 mcg-formot 4.8 mcg/actuation HFA inhaler (Breztri kinkonphere) Previous Rx's ?Medication ?Instructions ?Recorded aspirin 81 mg tablet,delayed 1 tab PO DAILY #90 tab-caps 07/07/17 release (Aspir-) acetaminophen 325 mg tablet 650 mg (2 x 325 mg) PO Q4H PRN PRN 11/03/17 (Tylenol) Oxygen 2 l/min inhalation .exertion #99 ea 09/16/21 nitroglycerin 0.4 mg sublingual 0.4 mg sublingual Q5-15M PRN chest 07/19/23 tablet pain #25 tabs pantoprazole 20 mg tablet,delayed 20 mg PO DAILY #90 tabs 11/17/23 release ipratropium 0.5 mg-albuterol 3 mg See Rx Instructions .Route 03/15/24 (2.5 mg base)/3 mL nebulization .COMPLEX #180 mL soln metoprolol succinate 50 mg 50 mg PO DAILY #90 tabs 05/01/24 tablet,extended release 24 hr guaifenesin 600 mg tablet, 600 mg PO BID #60 tabs 05/04/24 extended release 12 hr (Mucinex) atorvastatin 80 mg tablet 80 mg PO DAILY #90 tabs 06/07/24 lisinopril 20 mg tablet 20 mg PO DAILY #90 tabs 06/07/24 ipratropium 20 mcg-albuterol 100 1 puff inhalation QID PRN 07/05/24 mcg/actuation mist for inhalation shortness of breath or wheezing #4 (Combivent Respimat) grams azithromycin 250 mg tablet See Rx Instructions .Route 07/17/24 .COMPLEX #90 tabs RSVPreF3 antigen-AS01E 0.5 ml IM ONCE #1 ea 08/24/24 adjuvant(PF) 120 mcg/0.5 mL IM suspension, kit diphenhydramine HCl 50 mg tablet 50 mg PO ONCE PRN allergy symptoms 08/31/24 (Benadryl Allergy) #1 tab budesonide 160 mcg-glycopyr 9 2 inh inhalation BID #10.7 grams 10/31/24 mcg-formot 4.8 mcg/actuation HFA inhaler (Breztri Aerosphere) Allergies Allergy/AdvReac Type Severity Reaction Status Date / Time Iodinated Contrast Media Allergy ITCHING Verified 11/30/24 21:57 (Iodinated Contrast Media - IV Dye) General Stated Complaint: Chest Pain ODELL: 2 Exam Narrative Exam Narrative: Review of Systems: All systems reviewed & are unremarkable except as noted in HPI and below Well-developed, no acute distress Afebrile NCAT PERRL, normal conjunctiva Tachycardic, no murmur On 4 L nasal cannula, expiratory wheezing mild, decreased breath sounds in the left lower lateral nielsen Nondistended abdomen , soft nontender Extremities w/o edema Course Vital Signs Vital signs: Vital Signs Temperature 38.2 C H 11/30/24 21:47 Pulse 118 H 11/30/24 21:47 Respiratory Rate 22 11/30/24 21:47 Blood Pressure 191/77 H 11/30/24 21:47 Pulse Oximetry 78 L 11/30/24 21:47 Temperature 38.2 C H 11/30/24 21:47 Pulse 118 H 11/30/24 21:47 Respiratory Rate 18 11/30/24 21:53 Respiratory Effort Short of Breath, Labored, Incrsd Work of Breathing 11/30/24 21:53 Respiratory Depth Normal 11/30/24 21:53 Respiratory Pattern Normal 11/30/24 21:53 Blood Pressure 191/77 H 11/30/24 21:47 Blood Pressure Position Sitting 11/30/24 21:47 Pulse Oximetry 78 L 11/30/24 21:47 Oxygen Delivery Method Room Air 11/30/24 21:47 Oxygen Flow Rate 0 11/30/24 21:47 Pain Level 7 11/30/24 21:53 Lab/Test Results Lab/Test Results: Laboratory Tests Range/Units 11/30/24 21:50 WBC (4.4-10.8) 10^3/uL 16.45 H RBC (4.36-5.78) 10^6/uL 5.02 Hgb (13.5-17.5) g/dL 14.4 Hct (40.0-50.0) % 45.7 MCV (80-95) fL 91 MCH (27.0-33.0) pg 28.7 MCHC (32.0-36.0) % 31.5 L RDW (11.8-14.1) % 15.1 H Plt Count (130-400) 10^3/uL 357 MPV (8.0-11.0) fL 9.5 Immature Gran % % 0.8 Neutrophils % % 86.4 Lymphocytes % % 3.0 Monocytes % % 8.4 Eosinophils % % 0.9 Basophils % % 0.5 Nucleated RBC % (0.0-0.3) % 0.0 Absolute Neutrophils (1.2-6.7) 10^3/uL 14.21 H Absolute Lymphocytes (1.2-3.4) 10^3/uL 0.49 L Absolute Monocytes (0.1-0.8) 10^3/uL 1.38 H Absolute Eosinophils (0.0-0.7) 10^3/uL 0.15 Absolute Basophils (0.0-0.2) 10^3/uL 0.08 PT (9.1-11.1) sec 10.0 INR (0.9-1.1) 1.0 APTT (20.6-30.2) sec 26.3 Medical Decision Making Emergent evaluation of chest pain and shortness of breath. Patient has significant risk factors for coronary disease as well as a history of COPD. He does not currently smoke. He does have as needed oxygen to use at home in addition to breathing treatments. He does not wear oxygen constantly. On arrival he was noted to be significantly tachycardic as well as febrile at 38.2. Initial concerns for viral illness, pneumonia, COPD exacerbation.. EKG reviewed and independently interpreted: Sinus tachycardia 115 no acute ischemic changes. The patient does have some intermittent left lower chest pain but he states that this does not feel similar to prior cardiac chest pain. Full dose aspirin will be given and nitroglycerin as needed. Will continue treatment for COPD exacerbation with steroids and bronchodilator treatment. Lab work reviewed, there is leukocytosis at 16.45, no anemia. There is a left shift noted. Electrolytes without significant derangement. Troponin is not elevated, BNP only slightly elevated at 473. No signs of volume overload on examination. Chest x-ray reviewed and I am concerned about a left lower lobe consolidation. The right upper lobe scar appears consistent with prior. Given the findings of hypoxia tachycardia fever, leukocytosis and concern for sepsis in the setting of the likely pulmonary infection. Blood cultures have been ordered, vancomycin and cefepime have been given. Will admit to the hospital for further management. Quality:SDOH Health Related Social Needs: Health related social needs inadequate housing Critical Care Time Critical Care Time Critical Care Time: Yes Total Critical Care Time: 34 Attestation: CRITICAL CARE Upon my evaluation, this patient had a high probability of imminent or life-threatening deterioration due to hypoxia, sepsis which required my direct attention, intervention, and personal management. I have personally provided 34 minutes of critical care time exclusive of time spent on separately billable procedures. Time includes review of laboratory data, radiology results, discussion with consultants, and monitoring for potential decompensation. Interventions were performed as documented above [facility] All Active Problems (Updated 11/30/24 @ 22:49 by Vince Matt MD) Hypoxia (Acute) Fever (Acute) SOB (shortness of breath) (Acute) Pneumonia (Acute) History of lung cancer (Chronic ~2018) SCLC RUL s/p chemo, radiation Coronary artery disease (Chronic) [place] 2013 s/p MISTY to LCX 09/01 and MISTY to ostial OM1 and angioplasty of mid LCX lesion 10/02 Chronic obstructive pulmonary disease (Chronic) PFTs 2021 Peripheral vascular disease (Chronic) s/p right JAYA stent Bilateral carotid artery disease (Chronic) S/p right CEA AAA (abdominal aortic aneurysm) (Chronic) Essential hypertension (Chronic) Hyperlipidemia (Chronic) Iron deficiency anemia (Chronic) Annual monoferric infusions with hem/onc Prediabetes (Chronic) Personal history of nicotine dependence (Chronic) Grade II internal hemorrhoids (Chronic) Hiatal hernia (Chronic) Sensorineural hearing loss (SNHL) of both ears (Chronic) Hearing aids Tubular adenoma of colon (Chronic) On 2020 colonoscopy Diverticulosis of colon (Chronic) Medical History Myocardial infarction (~2013) Diverticulitis Small cell lung cancer (~2017) S/p chemo, radiation History of alcoholism Central retinal artery occlusion, right eye Surgical History S/P coronary artery stent placement MISTY to LCX and ostial OM1 S/P peripheral artery angioplasty with stent placement (12/07/11) Right JAYA stent S/P colonoscopy Hx of cataract surgery History of right-sided carotid endarterectomy (10/20/16) Family History Mother COPD (chronic obstructive pulmonary disease) Breast cancer Father Hyperlipidemia Hypertension Stroke Heart disease Chronic kidney disease Sister Stroke Hypertension Sister Uterus cancer Sister Hypertension Heart disease Dementia Son No problems noted. Son No problems noted. Maternal Grandfather No problems noted. Maternal Grandmother Myocardial infarction Heart disease Paternal Grandfather Heart disease Myocardial infarction Paternal Grandmother Dementia Social History Smoking/Tobacco Use Status: Former Tobacco Use tobacco type: cigarettes Quit Date: 06/20/14 Pack-years: 90 Second Hand Exposure: Yes Smoking risk assessment performed?: Yes Alcohol Intake: former Drug use: Never Substance use type: does not use Household members: none Pets and animals: Yes Pets and animals: cat(s) and dog(s) How often do you talk on the phone with friends or family?: three or more times per week How often do you get together with friends or relatives?: twice per week Do you belong to any clubs or organized social groups?: no Panel score (0-1 are the most socially isolated patients): 1 Duration: 15-30 minutes/day Frequency: daily Seatbelt use: always Do you feel safe at home: Yes Do you feel safe in your relationship?: Yes
[2024-11-30 22:33] LABS: ALT 39 U/L (16-63); AST 25 U/L (15-37); Albumin 4.1 g/dL (3.4-5.0); Alkaline Phosphatase 113 U/L (46-116); BUN 26 mg/dL (7-18); Bilirubin, Total 0.3 mg/dL (0.2-1.0); CREATININE 1.3 mg/dL (0.70-1.30); Calcium 9.3 mg/dL (8.5-10.1); Chloride 105 mmol/L (98-107); Glucose 110 mg/dL (74-106); Lipase 37 U/L (<78); Magnesium 1.9 mg/dL (1.8-2.4); NT-proBNP 473 pg/mL (<300); Potassium 4.3 mmol/L (3.5-5.1); Sodium 142 mmol/L (136-145); Total Protein 8.1 g/dL (6.4-8.2); Troponin I 17 ng/L (<or=76)
[2024-11-30] MEDS: ACETAMINOPHEN 1,000 MG/100 ML BAG 400 MG IVPB (22:50)
[2024-11-30] MEDS: CEFEPIME 1 GM in Normal Saline 50 ML IVPB (22:51)
--- NOTE | 2024-11-30 23:01 | DI.VRAD_ITS ---
PROCEDURE INFORMATION: Exam: XR Chest Exam date and time: 11/30/2024 10:14 PM Age: 69 years old Clinical indication: Chest pressure; Chest pain TECHNIQUE: Imaging protocol: Radiologic exam of the chest. Views: 1 view. COMPARISON: CT CHEST W 04/10/2022 1:53 PM FINDINGS: Lungs: Dense pulmonary scarring is redemonstrated at the right apex unchanged from the CT dated 04/10/2022. New patchy pulmonary opacities are present at the left lung base. Pleural spaces: No pleural effusion. No pneumothorax. Heart/Mediastinum: The heart is normal size. Bones/joints: Unremarkable. IMPRESSION: Left basilar pulmonary radiopacities suspicious for aspiration/infection. Short interval follow-up is recommended to exclude underlying pulmonary pathology. Dictated and Authenticated by: Eliza Encarnacion MD. Orderin Vernell Liu MD
[2024-11-30] MEDS: VANCOMYCIN 1,500 MG in Normal Saline 250 ML 166.6666 MG IVPB (23:11)
[2024-11-30 23:13] LABS: BE (Venous) 0 mmol/L (-2-3); HCO3 (Venous) 25 mmol/L (23-28); O2 Sat (Venous) 95 %; TCO2 (Venous) 22 mmol/L (24-29); pCO2 (Venous) 43 mmHg (41-51); pH (Venous) 7.37 (7.31-7.41); pO2 (Venous) 73 mmHg
[2024-11-30 23:15] LABS: COVID-19 PCR Negative (Negative); Influenza A PCR Negative (Negative); Influenza B PCR Negative (Negative); RSV PCR Negative (Negative)
--- NOTE | 2024-11-30 23:16 | W.PM.HP.N ---
Date of service: 11/30/24 Time of Service: 23:16 Assessment and Plan Assessment and plan (1) Pneumonia: Status: Acute Assessment and plan: Started on cefepime and vancomycin in the ED. He does have structural lung disease with previous cancer and radiation, so will continue cefepime for pseudomonal coverage. Will defer double coverage with levofloxacin at this point with h/o AAA. Will add doxycycline as he is on azithromycin chronically. No clear MRSA risk factors, will get MRSA nasal swab and continue vancomycin only if positive. Get sputum culture if possible Flu/COVID/RSV negative. (2) Severe sepsis: Status: Acute Assessment and plan: Fever, WBC, tachycardia, and TEODORO in setting of pneumonia. Will give a liter of LR, but be conservative with fluids with respiratory infection and h/o heart disease. (3) COPD with exacerbation: Status: Acute Assessment and plan: Started on IV methylprednisolone. Continue steroids orally and his outpatient inhalers, nebs. (4) Acute on chronic hypoxic respiratory failure: Status: Acute Assessment and plan: secondary to pneumonia/COPD as above. (5) Essential hypertension: Status: Chronic Assessment and plan: continue outpatient therapy with lisinopril, metoprolol (6) Peripheral vascular disease: Status: Chronic Assessment and plan: on aspirin/atorvastatin indefinitely. Confirm lipids at goal with lipid panel in am. (7) History of lung cancer: Status: Chronic Assessment and plan: He is being monitored with CT scans, will need follow up to assure LLL findings resolve with pneumonia treatment. (8) Coronary artery disease: Status: Chronic Assessment and plan: continue ASA/statin. EKG and troponins reassuring that chest pain not ischemiic (9) Acute kidney injury: Status: Acute Assessment and plan: Mild with creatinine up from 0.9 to 1.3 in setting of acute infection/sepsis. IV fluids, rule out bladder outlet obstruction with bladder scan, follow. 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 He has been more SOB since the smoke was in the air more than a week ago. He has been using his inhalers and nebulizer, which helps for an hour or so, but SOB has persisted. Using oxygen more than usual, 2 liters. Has to stop and rest just to get to his bathroom. Has also felt feverish off/on all week. Cough productive at times, no blood. The day of admission he went to his sister's house to visit, felt even more SOB trying to get home, had gradual onset of left sided sharp chest pain. Worse with breathing and coughing. No radiation. NTG did not help, so he came in. He takes his azithromycin chronically per pulmonology. He was treated with solumedrol and nebs here. He does feel a little better, was getting anxious and this has subsided some. Review of Systems All systems reviewed & are unremarkable except as noted in HPI and below ENT Ears, Nose, Mouth, and Throat: Reports hearing loss (chronic) Comments: bloody nose this morning. hasn't had nasal congestion/rhinorrhea. He is hoarse PFSH All Active Problems DVT prophylaxis (Acute) COPD with exacerbation (Acute) Acute on chronic hypoxic respiratory failure (Acute) Severe sepsis (Acute) Acute kidney injury (Acute) Hypoxia (Acute) Fever (Acute) SOB (shortness of breath) (Acute) Pneumonia (Acute) Prediabetes (Chronic) AAA (abdominal aortic aneurysm) (Chronic) Bilateral carotid artery disease (Chronic) S/p right CEA Iron deficiency anemia (Chronic) Annual monoferric infusions with hem/onc History of lung cancer (Chronic ~2018) SCLC RUL s/p chemo, radiation Grade II internal hemorrhoids (Chronic) Hiatal hernia (Chronic) Sensorineural hearing loss (SNHL) of both ears (Chronic) Hearing aids Diverticulosis of colon (Chronic) Tubular adenoma of colon (Chronic) On 2020 colonoscopy Personal history of nicotine dependence (Chronic) Chronic obstructive pulmonary disease (Chronic) PFTs 2021 Peripheral vascular disease (Chronic) s/p right JAYA stent Hyperlipidemia (Chronic) Essential hypertension (Chronic) Coronary artery disease (Chronic) AL 2013 s/p MISTY to LCX 09/01 and MISTY to ostial OM1 and angioplasty of mid LCX lesion 10/02 Medical History Myocardial infarction (~2013) Diverticulitis Small cell lung cancer (~2017) S/p chemo, radiation History of alcoholism Central retinal artery occlusion, right eye Surgical History S/P coronary artery stent placement MISTY to LCX and ostial OM1 S/P peripheral artery angioplasty with stent placement (12/07/11) Right JAYA stent S/P colonoscopy Hx of cataract surgery History of right-sided carotid endarterectomy (10/20/16) Family History Mother COPD (chronic obstructive pulmonary disease) Breast cancer Father Hyperlipidemia Hypertension Stroke Heart disease Chronic kidney disease Sister Stroke Hypertension Sister Uterus cancer Sister Hypertension Heart disease Dementia Son No problems noted. Son No problems noted. Maternal Grandfather No problems noted. Maternal Grandmother Myocardial infarction Heart disease Paternal Grandfather Heart disease Myocardial infarction Paternal Grandmother Dementia Social History (Updated 12/01/24 @ 00:11 by Wily Tabor) Smoking/Tobacco Use Status: Former Tobacco Use tobacco type: cigarettes Quit Date: 06/20/14 Pack-years: 90 Second Hand Exposure: Yes Smoking risk assessment performed?: Yes Alcohol Intake: former Drug use: Never Substance use type: does not use Household members: none Pets and animals: Yes Pets and animals: cat(s) and dog(s) How often do you talk on the phone with friends or family?: three or more times per week How often do you get together with friends or relatives?: twice per week Do you belong to any clubs or organized social groups?: no Panel score (0-1 are the most socially isolated patients): 1 Duration: 15-30 minutes/day Frequency: daily Seatbelt use: always Do you feel safe at home: Yes Do you feel safe in your relationship?: Yes Additional Social history: Lives with cat and dog in [place], [facility]. 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 Meds Allergies and Home Medications Allergies Allergy/AdvReac Type Severity Reaction Status Date / Time Iodinated Contrast Media Allergy ITCHING Verified 11/30/24 21:57 (Iodinated Contrast Media - IV Dye) Home Medications ?Medication ?Instructions ?Recorded ?Confirmed ?Type aspirin 81 mg tablet,delayed 1 tab PO DAILY #90 tab-caps 07/07/17 11/30/24 Rx release (Aspir-) acetaminophen 325 mg tablet 650 mg (2 x 325 mg) PO Q4H PRN PRN 11/03/17 11/30/24 Rx (Tylenol) Oxygen 2 l/min inhalation .exertion #99 ea 09/16/21 11/30/24 Rx nitroglycerin 0.4 mg sublingual 0.4 mg sublingual Q5-15M PRN chest 07/19/23 11/30/24 Rx tablet pain #25 tabs pantoprazole 20 mg tablet,delayed 20 mg PO DAILY #90 tabs 11/17/23 11/30/24 Rx release ipratropium 0.5 mg-albuterol 3 mg See Rx Instructions .Route 03/15/24 11/30/24 Rx (2.5 mg base)/3 mL nebulization .COMPLEX #180 mL soln metoprolol succinate 50 mg 50 mg PO DAILY #90 tabs 05/01/24 11/30/24 Rx tablet,extended release 24 hr fiber 1 tab PO DAILY 05/04/24 11/30/24 History guaifenesin 600 mg tablet, 600 mg PO BID #60 tabs 05/04/24 11/30/24 Rx extended release 12 hr (Mucinex) atorvastatin 80 mg tablet 80 mg PO DAILY #90 tabs 06/07/24 11/30/24 Rx lisinopril 20 mg tablet 20 mg PO DAILY #90 tabs 06/07/24 11/30/24 Rx ipratropium 20 mcg-albuterol 100 1 puff inhalation QID PRN 07/05/24 11/30/24 Rx mcg/actuation mist for inhalation shortness of breath or wheezing #4 (Combivent Respimat) grams azithromycin 250 mg tablet See Rx Instructions .Route 07/17/24 11/30/24 Rx .COMPLEX #90 tabs [id number] antigen-AS01E 0.5 ml IM ONCE #1 ea 08/24/24 11/30/24 Rx adjuvant(PF) 120 mcg/0.5 mL IM suspension, kit diphenhydramine HCl 50 mg tablet 50 mg PO ONCE PRN allergy symptoms 08/31/24 11/30/24 Rx (Benadryl Allergy) #1 tab budesonide 160 mcg-glycopyr 9 2 inh inhalation BID #10.7 grams 10/31/24 11/30/24 Rx mcg-formot 4.8 mcg/actuation HFA inhaler (Entrispherephere) Exam Narrative Exam Narrative: GEN: Alert and oriented x 4, pleasant and cooperative, gives linear history. No acute distress at rest. HEENT: Head atraumatic. Conjunctiva clear, no icterus. Right pupil less reactive (limited vision chronically) EOMI. no rhinorrhea. MMM, OP benign. Neck is supple with no masses or lymphadenopathy, trachea midline LUNGS: Mild increased WOB with moving around in bed, speaking a lot. Lung with diffuse expiratory wheeze, prolonged. moving air throughout, I don't hear focal rales CV: tachycardic but regular with no murmurs, gallops, or rubs. ABD: active bowel sounds, soft, nontender, mild distention No masses. EXT: no cyanosis, clubbing, or edema MSK: No joint redness or swelling NEURO: CN 2-12 grossly intact. Normal movement of 4 extremities. Normal speech and coordination. No tremor SKIN: No rashes or open wounds. few bruises on arms PSYCH: normal mood and affect, normal thought process Results Imaging Chest x-ray: report reviewed (Left basilar pulmonary radiopacities suspicious for aspiration/infection. Short interval follow-up is recommended to exclude underlying pulmonary pathology. ) and image reviewed EKG: report reviewed and image reviewed (sinus tachycardia, nl axis, intervals. No ischemic ST-T abnormalities) Labs 11/30/24 21:50 11/30/24 21:50 Labs: Laboratory Results - last 24 hr 11/30/24 11/30/24 21:50 23:07 WBC 16.45 H RBC 5.02 Hgb 14.4 Hct 45.7 MCV 91 MCH 28.7 MCHC 31.5 L RDW 15.1 H Plt Count 357 MPV 9.5 Immature Gran % 0.8 Neutrophils % 86.4 Lymphocytes % 3.0 Monocytes % 8.4 Eosinophils % 0.9 Basophils % 0.5 Nucleated RBC % 0.0 Absolute Neutrophils 14.21 H Absolute Lymphocytes 0.49 L Absolute Monocytes 1.38 H Absolute Eosinophils 0.15 Absolute Basophils 0.08 PT 10.0 INR 1.0 APTT 26.3 VBG pH 7.37 VBG pCO2 43 VBG pO2 73 VBG HCO3 25 VBG Total CO2 22 L VBG O2 Saturation 95 VBG Base Excess 0 Sodium 142 Potassium 4.3 Chloride 105 Carbon Dioxide 31.0 Anion Gap 6.0 BUN 26 H Creatinine 1.3 Est GFR (CKD-EPI 2020) 59.10 Glucose 110 H Calcium 9.3 Magnesium 1.9 Total Bilirubin 0.3 AST 25 ALT 39 Alkaline Phosphatase 113 Troponin I 17 NT-Pro-B Natriuret Pep 473 H Total Protein 8.1 Albumin 4.1 Lipase 37 Last Vital Signs Temp 38.2 C H 11/30/24 21:47 Pulse 105 H 11/30/24 22:50 Resp 18 11/30/24 22:57 BP 142/65 H 11/30/24 22:57 Pulse Ox 96 11/30/24 22:57 Time Spent Time spent with Patient: >75 minutes Time was spent: preparing to see the patient(eg.review tests), obtaining and/or reviewing separately otained hiistory, ordering medications,tests, procedures, referring, communicating with other health ocular care aide, indepentently interpreting results, counseling the patient and care coordination
[2024-11-30 23:20] LABS: Source Nasopharynx
[2024-11-30 23:33] LABS: Troponin I 18 ng/L (<or=76)
[2024-11-30 23:37] LABS: Procalcitonin < 0.10 ng/mL
[2024-12-01] VITALS (22 sets, daily range): BP systolic 133–170; BP diastolic 46–70; PULSE 74–105; RESP 2–22; TEMP 36.5–37.1; O2SAT 90–97
--- NOTE | 2024-12-01 00:13 | W.PCEDHO ---
Registration Status: REG ER Primary Language: Preferred Language: Lao ED Information & Data Chief Complaint Chest Pain 11/30/24 22:34 Triage Note arrives via POV from home, c 11/30/24 21:47 /o difficulty breathing and chest pain that started about 30mins ago on L side of chest. does not radiate. took 1 nitro about 10 mins ago without relief. working hard to breathe. did 1 duoneb prior to arrival. hx of 2 heart attacks. Medical / Surgical History (Last Reviewed 11/30/24 @ 23:39 by Wily Tabor) Myocardial infarction (~2013) Diverticulitis Small cell lung cancer (~2018) History of alcoholism Central retinal artery occlusion, right eye (Last Reviewed 11/30/24 @ 23:39 by Wily Tabor) S/P coronary artery stent placement S/P peripheral artery angioplasty with stent placement (12/07/11) S/P colonoscopy Hx of cataract surgery History of right-sided carotid endarterectomy (10/20/16) Most Recent Vital Signs Temperature 38.2 C H 11/30/24 21:47 Pulse 105 H 12/01/24 00:01 Pulse 104 H 12/01/24 00:01 Respiratory Rate 15 12/01/24 00:01 Respiratory Effort Normal 11/30/24 22:57 Respiratory Depth Normal 11/30/24 22:57 Respiratory Pattern Normal 11/30/24 22:57 Blood Pressure 164/50 H 12/01/24 00:01 Blood Pressure Mean 91 12/01/24 00:01 Blood Pressure Position Sitting 11/30/24 22:57 Pulse Oximetry 95 12/01/24 00:01 Oxygen Delivery Method Nasal Cannula 11/30/24 22:57 Oxygen Flow Rate 4 11/30/24 22:57 Pain Level 7 11/30/24 21:53 Comment 4LNC 11/30/24 22:01 Allergies Iodinated Contrast Media (Iodinated Contrast Media - IV Dye) Allergy (Verified 11/30/24 21:57) ITCHING Precautions Isolation Standard precaution 11/30/24 21:53 Active Medications Generic Name Dose Route Start Last Admin Trade Name Freq PRN Reason Stop Dose Admin Vancomycin HCl 1,500 mg/ 250 mls @ 166.6666 mls/hr 11/30/24 22:44 11/30/24 23:11 Sodium Chloride IVPB 12/01/24 00:13 166.6666 mls/hr NOW ONE Administration Nitroglycerin 0.4 mg 11/30/24 21:59 11/30/24 22:30 Nitroglycerin 0.4 Mg Tab SL 0.4 mg Q5 MIN PRN X3 PRN Administration IV IV Catheter Type [Right Peripheral IV Antecubital] IV Catheter Gauge [Right 18 Antecubital] Diet Orders Category Date Time Status Heart Healthy Eating [DIET] Nutrition 12/01/24 Breakfast Active Diagnostics 12/01/24 12/01/24 11/30/24 Range/Units 05:35 01:00 23:07 WBC Pending (4.4-10.8) 10^3/uL RBC Pending (4.36-5.78) 10^6/uL Hgb Pending (13.5-17.5) g/dL Hct Pending (40.0-50.0) % MCV Pending (80-95) fL MCH Pending (27.0-33.0) pg MCHC Pending (32.0-36.0) % RDW Pending (11.8-14.1) % Plt Count Pending (130-400) 10^3/uL MPV Pending (8.0-11.0) fL Immature Gran % Pending % Neutrophils % Pending % Lymphocytes % Pending % Monocytes % Pending % Eosinophils % Pending % Basophils % Pending % Nucleated RBC % (0.0-0.3) % Absolute Neutrophils Pending (1.2-6.7) 10^3/uL Absolute Lymphocytes Pending (1.2-3.4) 10^3/uL Absolute Monocytes Pending (0.1-0.8) 10^3/uL Absolute Eosinophils Pending (0.0-0.7) 10^3/uL Absolute Basophils Pending (0.0-0.2) 10^3/uL PT (9.1-11.1) sec INR (0.9-1.1) APTT (20.6-30.2) sec VBG pH 7.37 (7.31-7.41) VBG pCO2 43 (41-51) mmHg VBG pO2 73 mmHg VBG HCO3 25 (23-28) mmol/L VBG Total CO2 22 L (24-29) mmol/L VBG O2 Saturation 95 % VBG Base Excess 0 (-2-3) mmol/L Sodium Pending (136-145) mmol/L Potassium Pending (3.5-5.1) mmol/L Chloride Pending (98-107) mmol/L Carbon Dioxide Pending (21.0-32.0) mmol/L Anion Gap Pending (3-11) mmol/L BUN Pending (7-18) mg/dL Creatinine Pending (0.70-1.30) mg/dL Est GFR (CKD-EPI 2020) Pending (mL/min/1.73m2) Glucose Pending (74-106) mg/dL Calcium Pending (8.5-10.1) mg/dL Magnesium (1.8-2.4) mg/dL Total Bilirubin (0.2-1.0) mg/dL AST (15-37) U/L ALT (16-63) U/L Alkaline Phosphatase (46-116) U/L Troponin I Pending 18 (<or=76) ng/L NT-Pro-B Natriuret Pep (<300) pg/mL Total Protein (6.4-8.2) g/dL Albumin (3.4-5.0) g/dL Triglycerides Pending Total Cholesterol Pending LDL Cholesterol, Calc Pending HDL Cholesterol Pending Lipase (<78) U/L Procalcitonin ng/mL COVID-19 Source SARS-CoV-2 (PCR) (Negative) Influenza Type A (PCR) (Negative) Influenza Type B (PCR) (Negative) RSV (PCR) (Negative) 11/30/24 11/30/24 Range/Units 22:31 21:50 WBC 16.45 H (4.4-10.8) 10^3/uL RBC 5.02 (4.36-5.78) 10^6/uL Hgb 14.4 (13.5-17.5) g/dL Hct 45.7 (40.0-50.0) % MCV 91 (80-95) fL MCH 28.7 (27.0-33.0) pg MCHC 31.5 L (32.0-36.0) % RDW 15.1 H (11.8-14.1) % Plt Count 357 (130-400) 10^3/uL MPV 9.5 (8.0-11.0) fL Immature Gran % 0.8 % Neutrophils % 86.4 % Lymphocytes % 3.0 % Monocytes % 8.4 % Eosinophils % 0.9 % Basophils % 0.5 % Nucleated RBC % 0.0 (0.0-0.3) % Absolute Neutrophils 14.21 H (1.2-6.7) 10^3/uL Absolute Lymphocytes 0.49 L (1.2-3.4) 10^3/uL Absolute Monocytes 1.38 H (0.1-0.8) 10^3/uL Absolute Eosinophils 0.15 (0.0-0.7) 10^3/uL Absolute Basophils 0.08 (0.0-0.2) 10^3/uL PT 10.0 (9.1-11.1) sec INR 1.0 (0.9-1.1) APTT 26.3 (20.6-30.2) sec VBG pH (7.31-7.41) VBG pCO2 (41-51) mmHg VBG pO2 mmHg VBG HCO3 (23-28) mmol/L VBG Total CO2 (24-29) mmol/L VBG O2 Saturation % VBG Base Excess (-2-3) mmol/L Sodium 142 (136-145) mmol/L Potassium 4.3 (3.5-5.1) mmol/L Chloride 105 (98-107) mmol/L Carbon Dioxide 31.0 (21.0-32.0) mmol/L Anion Gap 6.0 (3-11) mmol/L BUN 26 H (7-18) mg/dL Creatinine 1.3 (0.70-1.30) mg/dL Est GFR (CKD-EPI 2020) 59.10 (mL/min/1.73m2) Glucose 110 H (74-106) mg/dL Calcium 9.3 (8.5-10.1) mg/dL Magnesium 1.9 (1.8-2.4) mg/dL Total Bilirubin 0.3 (0.2-1.0) mg/dL AST 25 (15-37) U/L ALT 39 (16-63) U/L Alkaline Phosphatase 113 (46-116) U/L Troponin I 17 (<or=76) ng/L NT-Pro-B Natriuret Pep 473 H (<300) pg/mL Total Protein 8.1 (6.4-8.2) g/dL Albumin 4.1 (3.4-5.0) g/dL Triglycerides Total Cholesterol LDL Cholesterol, Calc HDL Cholesterol Lipase 37 (<78) U/L Procalcitonin < 0.10 ng/mL COVID-19 Source Nasopharynx SARS-CoV-2 (PCR) Negative (Negative) Influenza Type A (PCR) Negative (Negative) Influenza Type B (PCR) Negative (Negative) RSV (PCR) Negative (Negative) 11/30/24 23:07 Blood Culture - Pending Blood 11/30/24 22:45 Blood Culture - Pending Blood Intake and Output - 24 Hour Total 11/30/24 21:45 thru 11/30/24 23:05 Intake Total 100 Balance 100 Weight 73.21 kg Intake: IV 100 Falls Risk Assessment History of Falls No History 11/30/24 22:21 Contributing Factors No Factors 11/30/24 22:21 Ambulatory Aids Uses ambulatory device + 11/30/24 22:21 Tubes/Lines With any additional score 11/30/24 22:21 Gait Evaluation W/any additional score 11/30/24 22:21 Cognition No cognitive impairment 11/30/24 22:21 Fall Total Score 70 11/30/24 22:21 Level of Risk High Risk 11/30/24 22:21 Problems (Last Reviewed 11/30/24 @ 23:39 by Wily Tabor) DVT prophylaxis (Acute) COPD with exacerbation (Acute) Acute on chronic hypoxic respiratory failure (Acute) Severe sepsis (Acute) Acute kidney injury (Acute) Pneumonia (Acute) History of lung cancer (Chronic ~2018) Coronary artery disease (Chronic) Peripheral vascular disease (Chronic) Essential hypertension (Chronic) Personal history of nicotine dependence (Chronic) v v v v v v v v v Sending and/or Receiving Nurses: Please use comment section below to note any information pertinent to the patient hand-off not included above. Information / Comments: Pt came in from home for SOB and chest pain. rec'd 3 doses of nitro and stacked duonebs. 4L nc at this time for hypoxia, hx of COPD and lung cancer. febrile. APAP given. Report received from: Faina Meng RN
[2024-12-01] MEDS: DOXYCYCLINE 100 MG in Normal Saline 100 ML IVPB (00:22)
[2024-12-01] MEDS: Lactated Ringers 1,000 ML 150 ML IV (01:44)
[2024-12-01] MEDS: Normal Saline Flush 10 ML SYR IVP ×4 (01:45→21:38)
[2024-12-01 02:15] LABS: Troponin I 17 ng/L (<or=76)
[2024-12-01] MEDS: Albuterol/Ipratropium 3 ML UPD VIAL UPD ×3 (04:37→17:15)
[2024-12-01] MEDS: CEFEPIME 1 GM in Normal Saline 50 ML IVPB ×3 (05:58→21:39)
[2024-12-01 06:39] LABS: Abs Immature Grans 0.14 10^3/uL (0.0-0.06); Absolute Monocyte Count 0.42 10^3/uL (0.1-0.8); Absolute Neutrophil Count 15.35 10^3/uL (1.2-6.7); Basophils % 0.2 %; HGB 13.6 g/dL (13.5-17.5); Immature Grans % 0.9 %; Lymphocytes % 1.1 %; MCH 28.2 pg (27.0-33.0); MCHC 30.9 % (32.0-36.0); MCV 91 fL (80-95); MPV 9.5 fL (8.0-11.0); Monocytes % 2.6 %; Neutrophils % 95.2 %; Platelet Count 319 10^3/uL (130-400); RBC 4.83 10^6/uL (4.36-5.78); RDW 14.9 % (11.8-14.1); WBC 16.12 10^3/uL (4.4-10.8)
[2024-12-01 06:40] LABS: Absolute Basophil Count 0.03 10^3/uL (0.0-0.2); Absolute Lymphocyte Count 0.18 10^3/uL (1.2-3.4)
[2024-12-01 06:53] LABS: Anion Gap 9.1 mmol/L (3-11); BUN 28 mg/dL (7-18); CO2 28.9 mmol/L (21.0-32.0); CREATININE 1.2 mg/dL (0.70-1.30); Calcium 9.3 mg/dL (8.5-10.1); Chloride 103 mmol/L (98-107); Estimated GFR 65.06 (mL/min/1.73m2); Glucose 190 mg/dL (74-106); Sodium 141 mmol/L (136-145)
[2024-12-01 06:55] LABS: Calculated LDL 55 mg/dL (<100); Cholesterol 119 mg/dL (<200); HDL Cholesterol 57 mg/dL (>or=40); Triglyceride 35 mg/dL (<150)
[2024-12-01] MEDS: Budesonide/Formoterol 160/4.5 6 GM 60 PUFF INH IH ×2 (08:08→19:48)
[2024-12-01] MEDS: Tiotropium Bromide-Respimat 10 PUFF INH 2 PUFF IH (08:08)
--- NOTE | 2024-12-01 08:13 | RESPIRATORY ---
Pt uses Breztri inhaler at home, does not have here, medication has been substituted with Symbicort and Spiriva. Pt states he uses 2L O2 at home PRN when needed. Pt has portable concentrator which is not here currently - he is hoping that one of his sons will be able to bring it in. DME for O2 is [facility].
--- NOTE | 2024-12-01 08:44 | W.PM.PROGNOT ---
Date of Service Date of service: 12/01/24 Time of Service: 08:44 Assessment and Plan Assessment and plan (1) Severe sepsis: Status: Acute Assessment and plan: - Patient met criteria for severe sepsis on admission with a temperature of 100.8 ?F, white blood cell count of 16.4, heart rate of 118 bpm, source of infection being community-acquired pneumonia, and endorgan damage with an TEODORO with baseline creatinine of 0.9 and creatinine of 1.3 on admission - Lactic acid was not checked in the emergency department - Patient was given 1 L of lactated Ringer's, was not given 30 cc/kg given history of heart disease - Was started on Vanco and cefepime, will continue - Follow-up MRSA swab and discontinue vancomycin if negative (2) Pneumonia: Status: Acute Assessment and plan: - Source of infection as noted above (3) COPD with exacerbation: Status: Acute Assessment and plan: -Started on IV methylprednisolone. -Continue steroids orally and his outpatient inhalers, nebs. (4) Acute kidney injury: Status: Acute Assessment and plan: -Mild with creatinine up from 0.9 to 1.3 in setting of acute infection/sepsis. (5) Acute on chronic hypoxic respiratory failure: Status: Acute Assessment and plan: -secondary to pneumonia/COPD as above - Requires 1 L supplemental oxygen with ambulation at baseline Required up to 4 L nasal cannula on admission - Down to 1 L nasal cannula as of a.m. 12/01/2024 - Continue to wean oxygen as tolerated (6) Essential hypertension: Status: Chronic Assessment and plan: -continue outpatient therapy with lisinopril, metoprolol (7) Peripheral vascular disease: Status: Chronic Assessment and plan: -on aspirin/atorvastatin indefinitely. -Confirm lipids at goal with lipid panel (8) History of lung cancer: Status: Chronic Assessment and plan: -He is being monitored with CT scans, will need follow up to assure LLL findings resolve with pneumonia treatment. (9) Coronary artery disease: Status: Chronic Assessment and plan: -continue ASA/statin. -EKG and troponins reassuring that chest pain not ischemiic (10) DVT prophylaxis: Status: Acute Assessment and plan: enoxaparin Subjective Subjective Interval history since last seen: Patient states that he is feeling significantly better as compared to admission. He still states he has some exertional shortness of breath which was not his baseline, otherwise he has no other complaints or concerns at this time. Exam Narrative Exam Narrative: Well-appearing gentleman sitting up in the bed in no acute distress, ANO x 4, heart regular rhythm, lungs with mild end expiratory wheezing heard throughout, abdomen soft, nontender, nondistended Objective Last Vital Signs Temp 97.9 F 12/01/24 07:07 Pulse 88 12/01/24 07:07 Resp 16 12/01/24 07:07 BP 144/61 H 12/01/24 07:07 Pulse Ox 92 12/01/24 08:08 Laboratory Results - last 24 hr 11/30/24 11/30/24 11/30/24 21:50 22:31 23:07 WBC 16.45 H RBC 5.02 Hgb 14.4 Hct 45.7 MCV 91 MCH 28.7 MCHC 31.5 L RDW 15.1 H Plt Count 357 MPV 9.5 Immature Gran % 0.8 Neutrophils % 86.4 Lymphocytes % 3.0 Monocytes % 8.4 Eosinophils % 0.9 Basophils % 0.5 Nucleated RBC % 0.0 Absolute Neutrophils 14.21 H Absolute Lymphocytes 0.49 L Absolute Monocytes 1.38 H Absolute Eosinophils 0.15 Absolute Basophils 0.08 PT 10.0 INR 1.0 APTT 26.3 VBG pH 7.37 VBG pCO2 43 VBG pO2 73 VBG HCO3 25 VBG Total CO2 22 L VBG O2 Saturation 95 VBG Base Excess 0 Sodium 142 Potassium 4.3 Chloride 105 Carbon Dioxide 31.0 Anion Gap 6.0 BUN 26 H Creatinine 1.3 Est GFR (CKD-EPI 2020) 59.10 Glucose 110 H Calcium 9.3 Magnesium 1.9 Total Bilirubin 0.3 AST 25 ALT 39 Alkaline Phosphatase 113 Troponin I 17 18 NT-Pro-B Natriuret Pep 473 H Total Protein 8.1 Albumin 4.1 Triglycerides Total Cholesterol LDL Cholesterol, Calc HDL Cholesterol Lipase 37 Procalcitonin < 0.10 COVID-19 Source Nasopharynx SARS-CoV-2 (PCR) Negative Influenza Type A (PCR) Negative Influenza Type B (PCR) Negative RSV (PCR) Negative 12/01/24 12/01/24 01:47 06:20 WBC 16.12 H RBC 4.83 Hgb 13.6 Hct 44.0 MCV 91 MCH 28.2 MCHC 30.9 L RDW 14.9 H Plt Count 319 MPV 9.5 Immature Gran % 0.9 Neutrophils % 95.2 Lymphocytes % 1.1 Monocytes % 2.6 Eosinophils % 0.0 Basophils % 0.2 Nucleated RBC % 0.0 Absolute Neutrophils 15.35 H Absolute Lymphocytes 0.18 L Absolute Monocytes 0.42 Absolute Eosinophils 0.00 Absolute Basophils 0.03 PT INR APTT VBG pH VBG pCO2 VBG pO2 VBG HCO3 VBG Total CO2 VBG O2 Saturation VBG Base Excess Sodium 141 Potassium 5.0 Chloride 103 Carbon Dioxide 28.9 Anion Gap 9.1 BUN 28 H Creatinine 1.2 Est GFR (CKD-EPI 2020) 65.06 Glucose 190 H Calcium 9.3 Magnesium Total Bilirubin AST ALT Alkaline Phosphatase Troponin I 17 NT-Pro-B Natriuret Pep Total Protein Albumin Triglycerides 35 Total Cholesterol 119 LDL Cholesterol, Calc 55 HDL Cholesterol 57 H Lipase Procalcitonin COVID-19 Source SARS-CoV-2 (PCR) Influenza Type A (PCR) Influenza Type B (PCR) RSV (PCR) Time Spent with Patient Time Spent with Patient: >50 minutes Time was spent: preparing to see the patient(eg.review tests), obtaining and/or reviewing separately otained hiistory, ordering medications,tests, procedures, referring, communicating with other health auto care center manager, indepentently interpreting results, counseling the patient and care coordination
--- NOTE | 2024-12-01 09:02 | INITIAL_ITS ---
Date of service: 12/01/24 Time of Service: 11:51 Care Management Initial Assmt Initial Assessment Reason for Hospitalization: pneumonia, COPD, sepsis, respiratory failure Functional Status/Living Situation Patient Presentation: Dominick was lying in bed, when CM arrived. Dominick presented to the ED for an evaluation of chest pain and shortness of breath. Dominick states he is living alone in a single family home, with 2 porch steps upon entrance. Dominick has 3 children who help him with ophthalmic surgical assistant, and meal prep when they can. Dominick also shared that his neighbors visit him often, and act as a good support for him. Dominick explained that with these supports, he struggles and would like additional support; Referrals sent to [facility], and [facility] with patient permission. Per Dominick, he has had good experiences with both organizations in the past; He used [facility] to connect to , and [facility] for obtaining insurance. Inside Dominick's home, he uses a cane and has walker. Dominick states, he has portable O2 at home, which he has been using more than previously; He also shared that his freinds gave him an O2 concentrator, that he uses at times. CM will continue to follow. 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: N 07/21/24, 11:49 Date Asked 11/30/24 11/30/24, 21:46 AD Date Reviewed COLST On File at [facility] COLST Date Scanned Code Status Resuscitation Status Full Code Portal Pt does not currently have a portal and education provided: Yes Insurance Coverage/Financial Issues Insurance: BC/BS [place] [facility] Advantage - [id number] Care Team Visit Care Team Role Provider Type Gamal Macias MD MD [facility] STAFF PHYSICIAN Sayra Hawk NP Primary Care Provider NURSE PRACTITIONER Vince Matt MD Emergency Provider [facility] STAFF PHYSICIAN Wily Tabor Admit Provider [facility] STAFF PHYSICIAN Attending Provider Discharge Potential Discharge Needs: PCP F/U Appt Anticipated Barriers to Discharge: Medical Status Patient/Family Education Needs: Review discharge instructions, discuss Ask Me Three Transportation: Private vehicle Plan: Anticipate, Dominick will be discharge home, once medically ready. He will follow up with his community providers, [facility] and continue per his discharge plan of care. He will likely transport via private vehicle by family. CM will continue to follow. Social Determinants of Health Screening Social Determinants of health last assessed in clinic: 12/01/24 Will the Patient Participate in the Screening?: Yes Do you worry about having a steady place to live?: no Problems where you live: no known problems In the past 12 months, have you had to go without electric, gas, oil or water in your home?: no 1. Within the past 12 months, we worried whether our food would run out before we got money to buy more.: Never true 2. Within the past 12 months, the food we bought just didn't last and we didn't have money to get more.: Never true Has lack of transportation kept you from medical appointments or from doing things needed for daily living?: no Has anyone in your life made you feel unsafe or unsupported?: no How hard is it for you to pay for the very basics like food, housing, medical care, and heating? Would you say it is:: Somewhat hard Do you want help finding or keeping work or a job?: I do not need or want help If for any reason you need help with day-to-day activities such as bathing, preparing meals, shopping, managing finances, etc., do you get the help you need?: I could use a little more help How often do you feel lonely or isolated from those around you?: Never Do you speak a language other than Guatemalan at home?: No Does the patient want assistance with any of the above?: Yes Health Related Social Needs Health related social needs: problems related to housing/economic circumstances (Z59.89) and problems with daily activities (Z73.9) Health related social needs details: wants more help around the house PFSH All Active Problems (Updated 12/01/24 @ 00:37 by CADEN HARDY) DVT prophylaxis (Acute) COPD with exacerbation (Acute) Acute on chronic hypoxic respiratory failure (Acute) Severe sepsis (Acute) Acute kidney injury (Acute) Hypoxia (Acute) Fever (Acute) SOB (shortness of breath) (Acute) Pneumonia (Acute) History of lung cancer (Chronic ~2017) SCLC RUL s/p chemo, radiation Coronary artery disease (Chronic) [place] 2013 s/p MISTY to LCX 09/01 and MISTY to ostial OM1 and angioplasty of mid LCX lesion 10/02 Chronic obstructive pulmonary disease (Chronic) PFTs 2021 Peripheral vascular disease (Chronic) s/p right JAYA stent Bilateral carotid artery disease (Chronic) S/p right CEA AAA (abdominal aortic aneurysm) (Chronic) Essential hypertension (Chronic) Hyperlipidemia (Chronic) Iron deficiency anemia (Chronic) Annual monoferric infusions with hem/onc Prediabetes (Chronic) Personal history of nicotine dependence (Chronic) Grade II internal hemorrhoids (Chronic) Hiatal hernia (Chronic) Sensorineural hearing loss (SNHL) of both ears (Chronic) Hearing aids Tubular adenoma of colon (Chronic) On 2020 colonoscopy Diverticulosis of colon (Chronic) Medical History Myocardial infarction (~2013) Diverticulitis Small cell lung cancer (~2017) S/p chemo, radiation History of alcoholism Central retinal artery occlusion, right eye Surgical History S/P coronary artery stent placement MISTY to LCX and ostial OM1 S/P peripheral artery angioplasty with stent placement (12/07/11) Right JAYA stent S/P colonoscopy Hx of cataract surgery History of right-sided carotid endarterectomy (10/20/16) Family History Mother COPD (chronic obstructive pulmonary disease) Breast cancer Father Hyperlipidemia Hypertension Stroke Heart disease Chronic kidney disease Sister Stroke Hypertension Sister Uterus cancer Sister Hypertension Heart disease Dementia Son No problems noted. Son No problems noted. Maternal Grandfather No problems noted. Maternal Grandmother Myocardial infarction Heart disease Paternal Grandfather Heart disease Myocardial infarction Paternal Grandmother Dementia Social History (Updated 12/01/24 @ 00:11 by Wily Tabor) Smoking/Tobacco Use Status: Former Tobacco Use tobacco type: cigarettes Quit Date: 06/20/14 Pack-years: 90 Second Hand Exposure: Yes Smoking risk assessment performed?: Yes Alcohol Intake: former Drug use: Never Substance use type: does not use Household members: none Housing: house Pets and animals: Yes Pets and animals: cat(s) and dog(s) How often do you talk on the phone with friends or family?: three or more times per week How often do you get together with friends or relatives?: twice per week Do you belong to any clubs or organized social groups?: no Panel score (0-1 are the most socially isolated patients): 1 Duration: 15-30 minutes/day Frequency: daily Seatbelt use: always Do you feel safe at home: Yes Do you feel safe in your relationship?: Yes Additional Social history: Lives with cat and dog in [place], family in [facility]. 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
[2024-12-01 09:06] LABS: MRSA PCR Negative (Negative)
--- NOTE | 2024-12-01 09:27 | NUR.NOTE ---
Patient states that his medication, Nitro is and he only has 3 remaining. He states that he needs a new prescription and would like it to be called into [facility]. He is also waiting for his glasses and dentures to arrive from a family member. Nursing Note:
[2024-12-01] MEDS: Psyllium PKT 1 EACH PO (09:34)
[2024-12-01] MEDS: predniSONE 20 MG TAB 40 MG PO (09:36)
[2024-12-01] MEDS: Lisinopril 20 MG TAB PO (09:36)
[2024-12-01] MEDS: Pantoprazole 20 MG TABCR PO (09:36)
[2024-12-01] MEDS: Atorvastatin 40 MG TAB 80 MG PO (09:37)
[2024-12-01] MEDS: guaiFENesin 600 MG TABCR PO ×2 (09:37→19:50)
[2024-12-01] MEDS: Aspirin E.C. 81 MG TABEC PO (09:37)
[2024-12-01] MEDS: Metoprolol CR 50 MG TABCR PO (09:37)
[2024-12-01] MEDS: Enoxaparin 40 MG/0.4 ML SYR SC (09:39)
--- NOTE | 2024-12-01 10:31 | PHA.REVIEW2 ---
Pharmacy Admission Review Admission Clinical Review Admission Pharmacy Review: DVT prophylaxis (Acute) COPD with exacerbation (Acute) Acute on chronic hypoxic respiratory failure (Acute) Severe sepsis (Acute) Acute kidney injury (Acute) Pneumonia (Acute) Iodinated Contrast Media (Iodinated Contrast Media - IV Dye) Allergy (Verified 11/30/24 21:57) ITCHING Resuscitation Status Full Code Height 5 ft 6 in Weight 76.2 kg Comments Comments/Follow Ups: Watch BP, HR, SCr, BG, labs, for culture results and for med changes (possible renal dose adjustments). Pharmacy Admission Review Renal Dosing Renal Dosing: BUN 28 mg/dL (7-18) H 12/01/24 06:20 Creatinine 1.2 mg/dL (0.70-1.30) 12/01/24 06:20 Medications needing adjustments: Reviewed (Crcl ~61 mL/min current meds are okay) Anticoagulation Anticoagulation: Hgb 13.6 g/dL (13.5-17.5) 12/01/24 06:20 Hct 44.0 % (40.0-50.0) 12/01/24 06:20 Plt Count 319 10^3/uL (130-400) 12/01/24 06:20 INR 1.0 (0.9-1.1) 11/30/24 21:50 Creatinine 1.2 mg/dL (0.70-1.30) 12/01/24 06:20 DVT Prophylaxis: Reviewed Medications: Enoxaparin Opiate Usage Evaluate Pain Scale/Pains Meds: N/A Relevant Labs Relevant Labs: Sodium 141 mmol/L (136-145) 12/01/24 06:20 Potassium 5.0 mmol/L (3.5-5.1) 12/01/24 06:20 Chloride 103 mmol/L (98-107) 12/01/24 06:20 Magnesium 1.9 mg/dL (1.8-2.4) 11/30/24 21:50 Electrolytes, C-Reactive P, ESR: Reviewed DM Control DM Control: Glucose 190 mg/dL (74-106) H 12/01/24 06:20 DM Control: Reviewed (BG elevated this morning, patient is on steroids and has prediabetes per medical history. A1c was 5.9 in July.) Cardiac Review Cardiac Review: Troponin I 17 ng/L (<or=76) 12/01/24 01:47 NT-Pro-B Natriuret Pep 473 pg/mL (<300) H 11/30/24 21:50 Blood Pressure [Left Arm] 142/65 Blood Pressure 144/61 Blood Pressure 149/63 Blood Pressure 170/60 Blood Pressure 159/46 Blood Pressure 164/50 Blood Pressure 103/66 Blood Pressure 151/104 Blood Pressure 154/42 Blood Pressure 143/40 Blood Pressure 142/65 BP, HR, EF%: Reviewed (BP and HR have been elevated most of this admission, has home doses of lisinopril and metoprolol ordered) QTc Review QTc: N/A IV to PO Switch IV Medications: Reviewed Home Meds Home Med List reviewed: Reviewed Relevent Home Meds Not ordered & why?: azithromycin (has other antibiotics ordered), budesonide/glycopyrrolate/formoterol (has budesonide/formoterol and tiotropium subbed for this) Current Meds Current Medication Order Review: Intervened (adjusted the timing of the pantoprazole per medical pathology teacher time policy) Pharmacy Antibiotic Review Relevant Labs: Relevant Labs 11/30/24 21:50 Procalcitonin < 0.10 Pharmacy Antibiotic Activity: C/S review and Reviewed, no change (Doxycycline and cefepime ordered for pneumonia (day 1). A dose of vanco was given in ED but MRSA pcr was negative so this has not been continued. Blood and sputum cultures are pending. ) Comments Comments/Follow Ups: Watch BP, HR, SCr, BG, labs, for culture results and for med changes (possible renal dose adjustments).
[2024-12-01] MEDS: Acetaminophen 325 MG TAB PO (11:53)
[2024-12-01] MEDS: Azithromycin 250 MG TAB PO (11:53)
--- NOTE | 2024-12-01 12:31 | W.NUTRFU ---
Date of service: 12/01/24 Time of Service: 12:31 Nutrition Note NOTE: Mr Tillman is 69yo male who was admitted after experiencing diff breathing and CP. He is being treated for severe sepsis, PNA, acute on chronic COPD exac., TEODORO. PMH significant for CAD, lung ca, PVD, HTN, prediabetes and hx of two MD's, good po intake with 100% of lunch eaten today. Wt hx shows wt gain trend (some lower ext edema noted). Glucose elevated at 190 fasting this morning (pt on sterioids). Pt A1C hx shows as high as 6.3% 2022 but most recently 5.9% last July. total protein and albumin labs wnl today. Ordered for heart healthy diet. Per clinical meeting this morning, pt most likely discharging tomorrow. Pt may benefit from metformin therapy to help prevent/delay diabetes dx. Denies food allergies/special nutrition needs. Pt aware of outpatient nutrition services - no questions today. Will continue to follow this admission. Time Spent in Nutritional Counseling and Treatment: 5 min
--- NOTE | 2024-12-01 13:14 | NUR.NOTE ---
Nursing Note: Documentation by Arjun Gonzales, student EMPLOYMENT SPECIALIST reviewed. I agree with assessment.
[2024-12-02] VITALS (18 sets, daily range): BP systolic 132–159; BP diastolic 57–81; PULSE 74–96; RESP 2–20; TEMP 36.2–36.7; O2SAT 91–96
[2024-12-02] MEDS: Albuterol/Ipratropium 3 ML UPD VIAL UPD ×5 (00:13→23:42)
[2024-12-02] MEDS: CEFEPIME 1 GM in Normal Saline 50 ML IVPB ×3 (05:42→21:44)
[2024-12-02] MEDS: Normal Saline Flush 10 ML SYR IVP ×3 (05:43→19:54)
[2024-12-02] MEDS: Acetaminophen 325 MG TAB PO (05:46)
[2024-12-02 06:43] LABS: HCT 40.2 % (40.0-50.0); HGB 12.7 g/dL (13.5-17.5); MCH 28.7 pg (27.0-33.0); MCHC 31.6 % (32.0-36.0); MCV 91 fL (80-95); MPV 9.5 fL (8.0-11.0); Platelet Count 329 10^3/uL (130-400); RBC 4.43 10^6/uL (4.36-5.78); RDW 14.9 % (11.8-14.1); RDW-SD 49.7 fL
[2024-12-02 06:55] LABS: Anion Gap 7.5 mmol/L (3-11); BUN 31 mg/dL (7-18); CO2 28.5 mmol/L (21.0-32.0); Calcium 9.1 mg/dL (8.5-10.1); Chloride 105 mmol/L (98-107); Estimated GFR 80.97 (mL/min/1.73m2); Glucose 115 mg/dL (74-106); Potassium 4.2 mmol/L (3.5-5.1); Sodium 141 mmol/L (136-145)
[2024-12-02] MEDS: Enoxaparin 40 MG/0.4 ML SYR SC (07:35)
[2024-12-02] MEDS: Psyllium PKT 1 EACH PO (07:35)
[2024-12-02] MEDS: predniSONE 20 MG TAB 40 MG PO (07:35)
[2024-12-02] MEDS: Atorvastatin 40 MG TAB 80 MG PO (07:35)
[2024-12-02] MEDS: Lisinopril 20 MG TAB PO (07:35)
[2024-12-02] MEDS: Aspirin E.C. 81 MG TABEC PO (07:35)
[2024-12-02] MEDS: Azithromycin 250 MG TAB PO (07:36)
[2024-12-02] MEDS: guaiFENesin 600 MG TABCR PO ×2 (07:36→19:54)
[2024-12-02] MEDS: Metoprolol CR 50 MG TABCR PO (07:36)
[2024-12-02] MEDS: Pantoprazole 20 MG TABCR PO (07:36)
[2024-12-02] MEDS: Tiotropium Bromide-Respimat 10 PUFF INH 2 PUFF IH (08:34)
[2024-12-02] MEDS: Budesonide/Formoterol 160/4.5 6 GM 60 PUFF INH IH ×2 (08:34→19:40)
--- NOTE | 2024-12-02 08:37 | PGE_ITS ---
Date of Service Date of service: 12/02/24 Time of Service: 08:37 Assessment and Plan Assessment and plan (1) Severe sepsis: Status: Acute Assessment and plan: - Patient met criteria for severe sepsis on admission with a temperature of 100.8 ?F, white blood cell count of 16.4, heart rate of 118 bpm, source of infection being community-acquired pneumonia, and endorgan damage with an TEODORO with baseline creatinine of 0.9 and creatinine of 1.3 on admission - Lactic acid was not checked in the emergency department - Patient was given 1 L of lactated Ringer's, was not given 30 cc/kg given history of heart disease - Was started on Vanco and cefepime, will continue - Follow-up MRSA swab and discontinue vancomycin if negative (2) Pneumonia: Status: Acute Assessment and plan: - Source of infection as noted above (3) COPD with exacerbation: Status: Acute Assessment and plan: -Started on IV methylprednisolone. -Continue steroids orally and his outpatient inhalers, nebs. (4) Acute kidney injury: Status: Acute Assessment and plan: -Mild with creatinine up from 0.9 to 1.3 in setting of acute infection/sepsis. (5) Acute on chronic hypoxic respiratory failure: Status: Acute Assessment and plan: -secondary to pneumonia/COPD as above - Requires 1 L supplemental oxygen with ambulation at baseline Required up to 4 L nasal cannula on admission - Down to room air at rest as of a.m. 12/02/2024, but continues to require supplemental oxygen with exertion - Continue to wean oxygen as tolerated (6) Essential hypertension: Status: Chronic Assessment and plan: -continue outpatient therapy with lisinopril, metoprolol (7) Peripheral vascular disease: Status: Chronic Assessment and plan: -on aspirin/atorvastatin indefinitely. -Confirm lipids at goal with lipid panel (8) History of lung cancer: Status: Chronic Assessment and plan: -He is being monitored with CT scans, will need follow up to assure LLL findings resolve with pneumonia treatment. (9) Coronary artery disease: Status: Chronic Assessment and plan: -continue ASA/statin. -EKG and troponins reassuring that chest pain not ischemiic (10) DVT prophylaxis: Status: Acute Assessment and plan: enoxaparin Subjective Subjective Interval history since last seen: Patient states that he is overall feeling better and is encouraged that he does not need supplemental oxygen at rest, but did become significantly dyspneic with exertion and required supplemental oxygen with ambulation. Otherwise he has no other complaints or concerns at this time. Exam Narrative Exam Narrative: Well-appearing gentleman sitting up in the bed in no acute distress, ANO x 4, heart regular rhythm, lungs with mild end expiratory wheezing heard throughout, abdomen soft, nontender, nondistended Objective Last Vital Signs Temp 97.2 F L 12/02/24 07:13 Pulse 77 12/02/24 07:13 Resp 16 12/02/24 07:13 BP 139/71 12/02/24 07:13 Pulse Ox 94 12/02/24 07:13 Laboratory Results - last 24 hr 12/01/24 12/02/24 06:37 06:23 WBC 15.80 H RBC 4.43 Hgb 12.7 L Hct 40.2 MCV 91 MCH 28.7 MCHC 31.6 L RDW 14.9 H Plt Count 329 MPV 9.5 Sodium 141 Potassium 4.2 Chloride 105 Carbon Dioxide 28.5 Anion Gap 7.5 BUN 31 H Creatinine 1.0 Est GFR (CKD-EPI 2020) 80.97 Glucose 115 H Calcium 9.1 MRSA (TEM-PCR) Negative Time Spent with Patient Time Spent with Patient: >50 minutes Time was spent: preparing to see the patient(eg.review tests), obtaining and/or reviewing separately otained hiistory, ordering medications,tests, procedures, referring, communicating with other health child adolescent care, indepentently interpreting results, counseling the patient and care coordination
--- NOTE | 2024-12-02 10:42 | IN_ITS ---
PT Notes Visit Reasons: pneumonia, COPD, sepsis, respiratory failure Inpatient Physical Therapy Evaluation Date: [12/02/2024] Referring Doctor: Gamal Macias PT Orders: PT CONSULT: Evaluation Precautions: standard, Pneumonia,sepsis O2 for exertion Patient Profile/Admitting Diagnosis: []Pneumonia, Sepsis, COPD 69 yo M with history of small cell lung cancer 2018 s/p chemoradiation in remission, COPD on home O2 with exertion only, CAD s/p PCI/stent 2013, CVA s/p R CEA/stent who presented with progressive shortness of breath with left sided chest pain and fever. He has been more SOB since the smoke was in the air more than a week ago. Using oxygen more than usual, 2 liters. Has to stop and rest just to get to his bathroom. Presented to ED 11/30/2024 with complaint of SOB and increased chest pain. Worse with breathing and coughing. Since being in hospital he reports less issues with SOB at rest but has SOB with exertion. PMHX: []All Active Problems DVT prophylaxis (Acute) COPD with exacerbation (Acute) Acute on chronic hypoxic respiratory failure (Acute) Severe sepsis (Acute) Acute kidney injury (Acute) Hypoxia (Acute) Fever (Acute) SOB (shortness of breath) (Acute) Pneumonia (Acute) Prediabetes (Chronic) AAA (abdominal aortic aneurysm) (Chronic) Bilateral carotid artery disease (Chronic) S/p right CEAIron deficiency anemia (Chronic) Annual monoferric infusions with hem/oncHistory of lung cancer (Chronic ~2017) SCLC RUL s/p chemo, radiationGrade II internal hemorrhoids (Chronic) Hiatal hernia (Chronic) Sensorineural hearing loss (SNHL) of both ears (Chronic) Hearing aidsDiverticulosis of colon (Chronic) Tubular adenoma of colon (Chronic) On 2020 colonoscopyPersonal history of nicotine dependence (Chronic) Chronic obstructive pulmonary disease (Chronic) PFTs eripheral vascular disease (Chronic) s/p right JAYA stent Hyperlipidemia (Chronic) Essential hypertension (Chronic) Coronary artery disease (Chronic) [place] 2013 s/p MISTY to LCX 09/01 and MISTY to ostial OM1 and angioplasty of mid LCX lesion 10/02 Medical History Myocardial infarction (~2014) Diverticulitis Small cell lung cancer (~2018) S/p chemo, radiationHistory of alcoholism Central retinal artery occlusion, right eye Social History/Home Situation: Dominick states he is living alone in a single family home, with 2 porch steps upon entrance. Dominick has 3 children who help him with physician credentialing specialist, and meal prep when they can. Mailbox is 50 feet. Current Functional Limitations: has a cane and portable O2 at home also has a walker, often does not use but using O2 more recently, noting decline in tolerance to walking and requiring longer breaks. If he doesn't feel good he does not go to mailbox, today he states he would not feel safe just with his home activities based on how he feels. Equipment Owned/DME: SPC, RW but does not utilize, ?O2 home prescription Subjective: SOB with exertion, felt better yesterday, noting not sleeping well Objective: [] General Observation: []Pt in bed, engaging t/o session, not currently on any IV has access in right UE Mental Status: A and O x4 Pain: none except for discomfort left lower chest minh if he coughs Vital Signs: []from chart Temp 97.2 F L 12/02/24 07:13 Pulse 77 12/02/24 07:13 Resp 16 12/02/24 07:13 BP 139/71 12/02/24 07:13 Pulse Ox 94 12/02/24 07:13 On entering the room O2 94,HR 78 with ambulation with RW and 2L n/c 60' feet O2 89% and took 3 min with sitting and on O2 to return to 93% on room air sit to stand x 5 25 sec pulse O2 88% on RA raiseing arms repeadedly to 90 O2 88% in both instances retruned to 94% ROM: Right Upper Extremity: WFL Left Upper Extremity: WFL Right Lower Extremity: WFL Left Lower Extremity: WFL Strength: Right Upper Extremity: WFL Left Upper Extremity: WFL Right Lower Extremity: WFL Left Lower Extremity: WFL Sensation: denies altered sensation Bed Mobility/Transfers: independent Gait: Ambulation with RW on 2L n/c O2 x60' feet O2 declines to 89% however patient is indep with ambulation. As O2 sat improves with activity gradually decrease use of O2 looking to maintain >88% with ambulation working up to 100feet. Once able to ambulate with RW on RA >88% O2sat, continue to progress ambulation w/o AD likely will need to decrease distance initially. Balance: Static Sitting: Normal Dynamic Sitting: Normal Static Standing: Normal Dynamic Standing: Fair due to feeling of dizziness after activity Special Tests: Mobility Limitations Standardized Measure [facility] AM-PAC 6 clicks Basic Mobility Inpatient Short Form: Raw Score: 23 standardized Score: 56.93 CMS Score: 11.20 Informed Consent/Education: Patient instructed in purpose of PT consult and plan of care. Therapeutic Activities - (88305 x1): instruction in dynamic activities with one on one patient contact by the provider to improve functional performance?as follows: ? Ambulation with RW with 2 L NC O2 x60' feet Sit to stand 5 x 25 seconds on RA, patient instructed to perform this on and off throughout the day. Shoulder elevation x 5 on RA, patient instructed to perform this on and off throughout the day Patient education: Discussed with patient the importance of frequent ambulation, light exercise utilization of O2 to avoid desatting less than 88% and understanding perceived exertion. Patient to take appropriate rest he has been doing this at home. He states that he has been showering sitting down and takes his time with all of his activities with rest in between all activities. He also states that he does not walk to the mailbox if he is feeling poorly. Assessment: Patient is a 69year old male referred to physical therapy services with the diagnosis of sepsis, pneumonia, respiratory failure, COPD . Patient presents with clinical signs and symptoms consistent with pneumonia, as demonstrated by the following impairment level findings: Desatting with exertion, feeling of dizziness with exertion, requiring O2 with exertion. Impairments are contributing to the following functional limitations: AMPAC score. Patient states that his current status that he would not feel safe at home due to how he currently is feeling and his ability to ambulate with needing support of RW and O2. Aside from desatting his strength and abilities on evaluation today note that he is independent and has a good understanding of his respiratory status. I do believe he is safe to move about his room without assistance however for ambulation he should have someone from nursing staff with him and for now utilization of RW and O2 gradually decreasing N/C O2 and gradually increasing distance with goal to ambulate without AD 100 feet without desatting less than 88%. Next time he walks give trial to n/c O2 1 L with goal at least 60ft, can go further if O2 sat doing good, if he goes further have plan to rest if needed. If he does well with that give trial with no , O2 but bring along, still using RW, once able to perform with RW give trial of ambulation without AD, and bring along O2 if needed. It is recommended for him to ambulate multiple times during the day, he is safe to ambulate about the room without AD and without O2. He also should be performing in room exercises as outlined 4- 5x/day or more if able. Patient is assessed as a Low [id number] complexity based on the following: History: As above Examination: As above Presentation: Evolving Decision Making: Low Goals: Goals X1 week with nursing staff 7. Gait ambulation with least AD and least O2 without desatting <88% 8. Stairs up-and-down 2 steps with rail 9. Independent with home exercise program 10. Balance good or better dynamic balance Plan of Care/Treatment Plan:As noted above Care can be provided by nursing staff while in the hospital with recommended gradual progression of decreased use of O2, decreased use of AD without desatting <88%. He would benefit from pulmonary rehab outpatient once discharged from hospital to educate and better manage his O2 needs and energy conservation strategies. DISCHARGE RECOMMENDATIONS: []Home once medically stable, with recommendation for out patient pulmonary rehab. TREATMENT CODE/TIME:[id number] 11:00-11:30 30'
[2024-12-03] VITALS (16 sets, daily range): BP systolic 137–150; BP diastolic 65–79; PULSE 65–92; RESP 2–19; TEMP 36.4–36.5; O2SAT 83–94
[2024-12-03] MEDS: CEFEPIME 1 GM in Normal Saline 50 ML IVPB ×3 (05:25→22:06)
[2024-12-03] MEDS: Albuterol/Ipratropium 3 ML UPD VIAL UPD ×4 (05:45→23:48)
[2024-12-03] MEDS: Aspirin E.C. 81 MG TABEC PO (08:26)
[2024-12-03] MEDS: Azithromycin 250 MG TAB PO (08:27)
[2024-12-03] MEDS: predniSONE 20 MG TAB 40 MG PO (08:27)
[2024-12-03] MEDS: guaiFENesin 600 MG TABCR PO ×2 (08:27→20:06)
[2024-12-03] MEDS: Lisinopril 20 MG TAB PO (08:27)
[2024-12-03] MEDS: Metoprolol CR 50 MG TABCR PO (08:27)
[2024-12-03] MEDS: Pantoprazole 20 MG TABCR PO (08:27)
[2024-12-03] MEDS: Normal Saline Flush 10 ML SYR IVP ×4 (08:28→20:06)
[2024-12-03] MEDS: Enoxaparin 40 MG/0.4 ML SYR SC (08:28)
[2024-12-03] MEDS: Psyllium PKT 1 EACH PO (08:28)
[2024-12-03] MEDS: Atorvastatin 40 MG TAB 80 MG PO (08:41)
[2024-12-03] MEDS: Tiotropium Bromide-Respimat 10 PUFF INH 2 PUFF IH (09:10)
[2024-12-03] MEDS: Budesonide/Formoterol 160/4.5 6 GM 60 PUFF INH IH ×2 (09:10→19:35)
--- NOTE | 2024-12-03 12:21 | PGE_ITS ---
Date of Service Date of service: 12/03/24 Time of Service: 12:21 Assessment and Plan Assessment and plan (1) Severe sepsis: Status: Acute Assessment and plan: - Patient met criteria for severe sepsis on admission with a temperature of 100.8 ?F, white blood cell count of 16.4, heart rate of 118 bpm, source of infection being community-acquired pneumonia, and endorgan damage with an TEODORO with baseline creatinine of 0.9 and creatinine of 1.3 on admission - Lactic acid was not checked in the emergency department - Patient was given 1 L of lactated Ringer's, was not given 30 cc/kg given history of heart disease - Was started on Vanco and cefepime, will continue - Follow-up MRSA swab and discontinue vancomycin if negative 12/03/24 no new labs today. Recheck in am, cw abx, cultures reassuring (2) Pneumonia: Status: Acute Assessment and plan: - Source of infection as noted above (3) COPD with exacerbation: Status: Acute Assessment and plan: -Started on IV methylprednisolone. -Continue steroids orally and his outpatient inhalers, nebs. (4) Acute kidney injury: Status: Acute Assessment and plan: -Mild with creatinine up from 0.9 to 1.3 in setting of acute infection/sepsis. 12/03/24 recheck labs in am (5) Acute on chronic hypoxic respiratory failure: Status: Acute Assessment and plan: -secondary to pneumonia/COPD as above - Requires 1 L supplemental oxygen with ambulation at baseline Required up to 4 L nasal cannula on admission - Down to room air at rest as of a.m. 12/02/2024, but continues to require supplemental oxygen with exertion - Continue to wean oxygen as tolerated (6) Essential hypertension: Status: Chronic Assessment and plan: -continue outpatient therapy with lisinopril, metoprolol (7) Peripheral vascular disease: Status: Chronic Assessment and plan: -on aspirin/atorvastatin indefinitely. -Confirm lipids at goal with lipid panel (8) History of lung cancer: Status: Chronic Assessment and plan: -He is being monitored with CT scans, will need follow up to assure LLL findings resolve with pneumonia treatment. (9) Coronary artery disease: Status: Chronic Assessment and plan: -continue ASA/statin. -EKG and troponins reassuring that chest pain not ischemiic (10) DVT prophylaxis: Status: Acute Assessment and plan: enoxaparin Subjective Subjective Interval history since last seen: Pt states that he is still feeling sob with ambulation Exam Narrative Exam Narrative: Well-appearing gentleman sitting up in the bed in no acute distress, ANO x 4, heart regular rhythm, lungs with mild end expiratory wheezing heard throughout, abdomen soft, nontender, nondistended Objective Last Vital Signs Temp 36.5 C 12/03/24 11:30 Pulse 82 12/03/24 11:30 Resp 16 12/03/24 11:30 BP 150/72 H 12/03/24 11:30 Pulse Ox 91 L 12/03/24 11:30 Time Spent with Patient Time Spent with Patient: 25-34 minutes Time was spent: preparing to see the patient(eg.review tests), obtaining and/or reviewing separately otained hiistory, ordering medications,tests, procedures, referring, communicating with other health date night caregiver, indepentently interpreting results, counseling the patient and care coordination
[2024-12-03] MEDS: Acetaminophen 325 MG TAB PO (12:26)
[2024-12-04] VITALS (12 sets, daily range): BP systolic 116–159; BP diastolic 67–97; PULSE 74–91; RESP 5–22; TEMP 36–36.7; O2SAT 90–95
[2024-12-04] MEDS: CEFEPIME 1 GM in Normal Saline 50 ML IVPB ×3 (05:26→22:18)
[2024-12-04] MEDS: Acetaminophen 325 MG TAB PO ×3 (05:31→21:01)
[2024-12-04] MEDS: Albuterol/Ipratropium 3 ML UPD VIAL UPD ×3 (05:32→18:12)
[2024-12-04 06:40] LABS: Abs Immature Grans 0.25 10^3/uL (0.0-0.06); Absolute Basophil Count 0.04 10^3/uL (0.0-0.2); Absolute Eosinophil Count 0.11 10^3/uL (0.0-0.7); Absolute Lymphocyte Count 0.83 10^3/uL (1.2-3.4); Absolute Monocyte Count 1.17 10^3/uL (0.1-0.8); Absolute Neutrophil Count 8.14 10^3/uL (1.2-6.7); Basophils % 0.4 %; HCT 43.3 % (40.0-50.0); HGB 14.1 g/dL (13.5-17.5); Immature Grans % 2.4 %; Lymphocytes % 7.9 %; MCH 29.1 pg (27.0-33.0); MCHC 32.6 % (32.0-36.0); MCV 90 fL (80-95); MPV 9.4 fL (8.0-11.0); Monocytes % 11.1 %; Neutrophils % 77.2 %; Platelet Count 364 10^3/uL (130-400); RBC 4.84 10^6/uL (4.36-5.78); RDW 14.7 % (11.8-14.1); WBC 10.54 10^3/uL (4.4-10.8)
[2024-12-04 07:06] LABS: ALT 43 U/L (16-63); AST 19 U/L (15-37); Albumin 3.5 g/dL (3.4-5.0); Alkaline Phosphatase 85 U/L (46-116); Anion Gap 6.2 mmol/L (3-11); BUN 31 mg/dL (7-18); Bilirubin, Total 0.4 mg/dL (0.2-1.0); CO2 31.8 mmol/L (21.0-32.0); Calcium 9.7 mg/dL (8.5-10.1); Chloride 102 mmol/L (98-107); Estimated GFR 80.97 (mL/min/1.73m2); Glucose 94 mg/dL (74-106); Potassium 4.2 mmol/L (3.5-5.1); Sodium 140 mmol/L (136-145); Total Protein 7.4 g/dL (6.4-8.2)
[2024-12-04] MEDS: Budesonide/Formoterol 160/4.5 6 GM 60 PUFF INH IH ×2 (07:44→20:22)
[2024-12-04] MEDS: Tiotropium Bromide-Respimat 10 PUFF INH 2 PUFF IH (07:44)
[2024-12-04] MEDS: Psyllium PKT 1 EACH PO (07:50)
[2024-12-04] MEDS: Atorvastatin 40 MG TAB 80 MG PO (07:52)
[2024-12-04] MEDS: predniSONE 20 MG TAB 40 MG PO (07:53)
[2024-12-04] MEDS: Lisinopril 20 MG TAB PO (07:54)
[2024-12-04] MEDS: Aspirin E.C. 81 MG TABEC PO (07:54)
[2024-12-04] MEDS: Azithromycin 250 MG TAB PO (07:54)
[2024-12-04] MEDS: guaiFENesin 600 MG TABCR PO ×2 (07:54→20:29)
[2024-12-04] MEDS: Pantoprazole 20 MG TABCR PO (07:54)
[2024-12-04] MEDS: Metoprolol CR 50 MG TABCR PO (07:54)
[2024-12-04] MEDS: Normal Saline Flush 10 ML SYR IVP ×2 (07:55→20:30)
[2024-12-04] MEDS: Enoxaparin 40 MG/0.4 ML SYR SC (07:56)
--- NOTE | 2024-12-04 11:03 | NUR.NOTE ---
Nursing Note:Reviewed documentation by Mary Jimenez LPN student. Agree with her assessment.
--- NOTE | 2024-12-04 11:08 | PDOC.CMPRO ---
Date of service: 12/04/24 Time of Service: 12:21 Care Management Progress Note Progress Note Text Progress Note Text: Dominick was sitting in his chair, when CM arrived. CM discussed PT's recommendation of HH PT for pulmonary rehab, Dominick was agreeable to this. He is excited to get home, but doesn't feel ready today. He states, his neighbor is taking care of his pets, and he is excited to return to them. Dominick states, his [place] [facility] plan is to move with his daughter. Dominick's youngest son came to visit during the interaction. CM will conitnue to follow. Discharge Potential Discharge Needs: PCP F/U Appt Anticipated Barriers to Discharge: Medical Status Patient/Family Education Needs: Review discharge instructions, discuss Ask Me Three Transportation: Private vehicle Plan: Anticipate, Dominick will be discharge home, with new HH PT for pulmonary rehab, once medically ready. He will follow up with his community providers, [facility] and continue per his discharge plan of care. He will likely transport via private vehicle by family. CM will continue to follow. Social Determinants of Health Screening Social Determinants of health last assessed in clinic: 12/04/24 Will the Patient Participate in the Screening?: Yes Do you worry about having a steady place to live?: no Problems where you live: no known problems In the past 12 months, have you had to go without electric, gas, oil or water in your home?: no 1. Within the past 12 months, we worried whether our food would run out before we got money to buy more.: Never true 2. Within the past 12 months, the food we bought just didn't last and we didn't have money to get more.: Never true Has lack of transportation kept you from medical appointments or from doing things needed for daily living?: no Has anyone in your life made you feel unsafe or unsupported?: no How hard is it for you to pay for the very basics like food, housing, medical care, and heating? Would you say it is:: Somewhat hard Do you want help finding or keeping work or a job?: I do not need or want help If for any reason you need help with day-to-day activities such as bathing, preparing meals, shopping, managing finances, etc., do you get the help you need?: I could use a little more help How often do you feel lonely or isolated from those around you?: Never Do you speak a language other than Latvian at home?: No Does the patient want assistance with any of the above?: Yes Health Related Social Needs Health related social needs: problems related to housing/economic circumstances (Z59.89) and problems with daily activities (Z73.9) Health related social needs details: wants more help around the house Anticipated HH Services Anticipated HH Services at Discharge [facility] Needed, PT.
--- NOTE | 2024-12-04 12:10 | PGE_ITS ---
Date of Service Date of service: 12/04/24 Time of Service: 12:11 Assessment and Plan Assessment and plan (1) Severe sepsis: Status: Acute Assessment and plan: - Patient met criteria for severe sepsis on admission with a temperature of 100.8 ?F, white blood cell count of 16.4, heart rate of 118 bpm, source of infection being community-acquired pneumonia, and endorgan damage with an TEODORO with baseline creatinine of 0.9 and creatinine of 1.3 on admission - Lactic acid was not checked in the emergency department - Patient was given 1 L of lactated Ringer's, was not given 30 cc/kg given history of heart disease - Was started on Vanco and cefepime, will continue - Follow-up MRSA swab and discontinue vancomycin if negative 12/03/24 no new labs today. Recheck in am, cw abx, cultures reassuring 12/04/24 leukocytosis has resolved/vss. CW current abx (cefepime and zithromax) (2) Pneumonia: Status: Acute Assessment and plan: - Source of infection as noted above (3) COPD with exacerbation: Status: Acute Assessment and plan: -Started on IV methylprednisolone. -Continue steroids orally and his outpatient inhalers, nebs. (4) Acute kidney injury: Status: Acute Assessment and plan: -Mild with creatinine up from 0.9 to 1.3 in setting of acute infection/sepsis. 12/03/24 recheck labs in am 12/04/24 pt does have a significant elevation in his bun/cr ratio which could be a sign of GIB. Will hem check stool x3 In reviewing old labs, pt does have a history of iron deficiency anemia in the past. A GIB can account for both of these findings (5) Acute on chronic hypoxic respiratory failure: Status: Acute Assessment and plan: -secondary to pneumonia/COPD as above - Requires 1 L supplemental oxygen with ambulation at baseline Required up to 4 L nasal cannula on admission - Down to room air at rest as of a.m. 12/02/2024, but continues to require supplemental oxygen with exertion - Continue to wean oxygen as tolerated (6) Essential hypertension: Status: Chronic Assessment and plan: -continue outpatient therapy with lisinopril, metoprolol (7) Peripheral vascular disease: Status: Chronic Assessment and plan: -on aspirin/atorvastatin indefinitely. -Confirm lipids at goal with lipid panel (8) History of lung cancer: Status: Chronic Assessment and plan: -He is being monitored with CT scans, will need follow up to assure LLL findings resolve with pneumonia treatment. (9) Coronary artery disease: Status: Chronic Assessment and plan: -continue ASA/statin. -EKG and troponins reassuring that chest pain not ischemiic 12/04/24 Considering pt's symptoms of ESCAMILLA (although can be 2/2 COPD) will order an echocardiogram. Last echo that we have resulted was 10/09/20 and had an EF of 60% (10) DVT prophylaxis: Status: Acute Assessment and plan: enoxaparin Subjective Subjective Interval history since last seen: Pt seen and examined in his room. Pt states that he does continue to feel sob with ambulation and weakness. Exam Narrative Exam Narrative: Well-appearing gentleman sitting up in the bed in no acute distress, ANO x 4, heart regular rhythm, lungs with mild end expiratory wheezing heard throughout, abdomen soft, nontender, nondistended Objective Last Vital Signs Temp 36.0 C L 12/04/24 11:14 Pulse 79 12/04/24 11:40 Resp 16 12/04/24 11:35 BP 116/67 12/04/24 11:14 Pulse Ox 91 L 12/04/24 11:35 Laboratory Results - last 24 hr 12/04/24 06:10 WBC 10.54 RBC 4.84 Hgb 14.1 Hct 43.3 MCV 90 MCH 29.1 MCHC 32.6 RDW 14.7 H Plt Count 364 MPV 9.4 Immature Gran % 2.4 Neutrophils % 77.2 Lymphocytes % 7.9 Monocytes % 11.1 Eosinophils % 1.0 Basophils % 0.4 Nucleated RBC % 0.0 Absolute Neutrophils 8.14 H Absolute Lymphocytes 0.83 L Absolute Monocytes 1.17 H Absolute Eosinophils 0.11 Absolute Basophils 0.04 Sodium 140 Potassium 4.2 Chloride 102 Carbon Dioxide 31.8 Anion Gap 6.2 BUN 31 H Creatinine 1.0 Est GFR (CKD-EPI 2020) 80.97 Glucose 94 Calcium 9.7 Total Bilirubin 0.4 AST 19 ALT 43 Alkaline Phosphatase 85 Total Protein 7.4 Albumin 3.5 Time Spent with Patient Time Spent with Patient: 35-49 minutes Time was spent: preparing to see the patient(eg.review tests), obtaining and/or reviewing separately jack gauthier ordering medications,tests, procedures, referring, communicating with other health healthcare advisory services manager, indepentently interpreting results, counseling the patient and care coordination
--- NOTE | 2024-12-04 12:20 | W.NUTRFU ---
Date of service: 12/04/24 Time of Service: 12:20 Nutrition Note NOTE: f/u with mr Tillman. No concerns with appetite/intake. Mr Tillman states he is working on feeling physically able to take care of himself at home - this is a concern of his as he lives alone with little supports. Moving bowels, denies any n/v. Brought up glucose hx and he is aware he is borderline diabetic. Reviewed refined carbs combined with higher fat diet can contribute to this worsening and encouraged fiber, unprocessed/minimally processed food choices as well as regular activity. Time Spent in Nutritional Counseling and Treatment: 5 min
--- NOTE | 2024-12-04 17:12 | NUR.NOTE ---
Nursing Note: Asked to assess pt as he had c/o chest pain. Pt states he had felt a heaviness in the middle of his chest, which lasted a few minutes, but is totally gone now. He has been burping, is eating his supper tray without difficulty. He denies any pain, n/t or dizziness. Discussed with primary nurse, who will get VS.
[2024-12-05] MEDS: Albuterol/Ipratropium 3 ML UPD VIAL UPD ×2 (00:35→05:53)
[2024-12-05 00:49] VITALS: BP 147/66; PULSE 85; RESP 20; TEMP 36.6; O2SAT 91
[2024-12-05 04:55] VITALS: BP 157/77; PULSE 85; RESP 20; TEMP 36.7; O2SAT 93
[2024-12-05 05:53] VITALS: PULSE 82; RESP 16; RESP 5; O2SAT 94
[2024-12-05] MEDS: CEFEPIME 1 GM in Normal Saline 50 ML IVPB (06:19)
[2024-12-05 07:06] LABS: Abs Immature Grans 0.63 10^3/uL (0.0-0.06); Absolute Basophil Count 0.09 10^3/uL (0.0-0.2); Absolute Eosinophil Count 0.17 10^3/uL (0.0-0.7); Absolute Lymphocyte Count 0.96 10^3/uL (1.2-3.4); Absolute Monocyte Count 1.15 10^3/uL (0.1-0.8); Absolute Neutrophil Count 7.54 10^3/uL (1.2-6.7); Basophils % 0.9 %; Eosinophils % 1.6 %; HCT 43.3 % (40.0-50.0); HGB 14.4 g/dL (13.5-17.5); Lymphocytes % 9.1 %; MCH 29.3 pg (27.0-33.0); MCHC 33.3 % (32.0-36.0); MCV 88 fL (80-95); MPV 9.3 fL (8.0-11.0); Monocytes % 10.9 %; Neutrophils % 71.5 %; Platelet Count 372 10^3/uL (130-400); RBC 4.92 10^6/uL (4.36-5.78); RDW 14.4 % (11.8-14.1); WBC 10.54 10^3/uL (4.4-10.8)
[2024-12-05 07:28] LABS: ALT 46 U/L (16-63); AST 19 U/L (15-37); Albumin 3.4 g/dL (3.4-5.0); Alkaline Phosphatase 87 U/L (46-116); Anion Gap 6.9 mmol/L (3-11); BUN 30 mg/dL (7-18); Bilirubin, Total 0.3 mg/dL (0.2-1.0); CO2 30.1 mmol/L (21.0-32.0); CREATININE 0.9 mg/dL (0.70-1.30); Calcium 9.4 mg/dL (8.5-10.1); Chloride 103 mmol/L (98-107); Estimated GFR 91.88 (mL/min/1.73m2); Glucose 94 mg/dL (74-106); Sodium 140 mmol/L (136-145); Total Protein 7.4 g/dL (6.4-8.2)
[2024-12-05 07:32] VITALS: BP 162/76; PULSE 83; RESP 18; TEMP 36.7; O2SAT 93
[2024-12-05 07:33] LABS: Iron 67 ug/dL (65-175); Total Iron Binding Capacity 297 ug/dL (250-450); Transferrin Sat 23 % (20-55)
[2024-12-05] MEDS: Atorvastatin 40 MG TAB 80 MG PO (08:16)
[2024-12-05] MEDS: predniSONE 20 MG TAB 40 MG PO (08:16)
[2024-12-05] MEDS: guaiFENesin 600 MG TABCR PO (08:17)
[2024-12-05] MEDS: Metoprolol CR 50 MG TABCR PO (08:17)
[2024-12-05] MEDS: Lisinopril 20 MG TAB PO (08:17)
[2024-12-05] MEDS: Aspirin E.C. 81 MG TABEC PO (08:17)
[2024-12-05] MEDS: Acetaminophen 325 MG TAB PO (08:17)
[2024-12-05] MEDS: Azithromycin 250 MG TAB PO (08:18)
[2024-12-05] MEDS: Psyllium PKT 1 EACH PO (08:18)
[2024-12-05] MEDS: Normal Saline Flush 10 ML SYR IVP (08:18)
[2024-12-05] MEDS: Pantoprazole 20 MG TABCR PO (08:18)
[2024-12-05] MEDS: Budesonide/Formoterol 160/4.5 6 GM 60 PUFF INH IH (08:30)
[2024-12-05] MEDS: Tiotropium Bromide-Respimat 10 PUFF INH 2 PUFF IH (08:30)
--- NOTE | 2024-12-05 11:25 | CMDISCH_ITS ---
Date of service: 12/05/24 Time of Service: 11:25 LACE Index Scoring Tool Questions: Length of Stay (in days): 4 - 6 Was the patient admitted via the E.D.?: Yes Comorbidities: Previous M.I., Chronic Pulmonary Disease and Any Tumor E.D. Visits: 1 Answers: Total Score: 13 Risk of Readmission: High Risk Care Management Discharge Plan Reason for Hospitalization: pneumonia, COPD Discharge Plan: Dominick will discharge home this afternoon with new services of [facility] - [facility]. He will also have a referral placed to the outpatient pulmonology rehab program, which has a wait list with no openings until June. Dominick will f/u with his PCP and his community providers, and continue per his plan of care. [facility] reached out to Dominick this morning, and will see him tomorrow in his home. Dominick will transport home in a private vehicle. Patient/Family Education Needs: Review of discharge instructions, activity, limitations, and discuss Ask me 3. Services Needed at Discharge: Home Health Care Services (PT for [facility].) SDOH Health Related Social Needs: Health related social needs house/econ circumstance da madeleine activities Health related social needs details wants more help ar ound the house Health related social needs details: wants more help around the house
[2024-12-05 11:30] VITALS: BP 160/62; PULSE 86; RESP 18; TEMP 36.7; O2SAT 93
--- NOTE | 2024-12-05 11:34 | PDOC.HHF2F ---
Home Health Referral Home Health Orders Clinical synopsis of why skilled professionals are needed: ESCAMILLA Medical diagnosis necessitation home health referral: pneumonia Physical Therapist: Check all that apply [facility]: Ordered Encounter Date and Reason: I certify that a FTF encounter for this patient was performed on December 05, 2024 and that such encounter was related to the primary reason the patient requires home health services. The encounter was conducted in the following manner: By me as the certifying physician, ELECTROLYSIS NEEDLE OPERATOR, PA or By an inpatient physician, ELECTROLYSIS NEEDLE OPERATOR or PA during an inpatient stay who communicated findings to me, Certification And Authentication I certify that I composed the above information based on my clinical judgment relating to this patient's medical condition and, if applicable, clinical findings communicated to me by the NPP or inpatient physician who performed the FTF encounter. Name of Provider that will be monitoring home health services: Sayra Hawk
--- NOTE | 2024-12-05 11:36 | DSE_ITS ---
Date of service: 12/05/24 Time of Service: 11:36 DS: Diagnosis Discharge Diagnosis (1) Severe sepsis: Status: Acute (2) Pneumonia: Status: Acute (3) COPD with exacerbation: Status: Acute (4) Acute kidney injury: Status: Acute (5) Acute on chronic hypoxic respiratory failure: Status: Acute (6) Essential hypertension: Status: Chronic (7) Peripheral vascular disease: Status: Chronic (8) History of lung cancer: Status: Chronic (9) Coronary artery disease: Status: Chronic (10) DVT prophylaxis: Status: Acute Discharge Plan Disposition Patient Disposition: Home W/Home Health Services Condition: Stable Discharge Details Reason For Visit: pneumonia, COPD, sepsis, respiratory failure Admit Date/Time: 11/30/24 22:58 Admit Provider: Wily Tabor Attending Provider: Wily Tabor Primary Care Provider: [id number] Course Hospital Course: Patient was admitted for pneumonia as well as sepsis and COPD exacerbation. He was admitted on the . Patient was treated with antibiotics and steroids and improved in regards to his respiratory status and at the time of discharge he was not requiring oxygen supplementation. I will discharge him on Zithromax as well as an steroid taper. In terms of diagnostic data sputum cultures and blood cultures were negative. An echocardiogram was performed did not indicate CHF. Chest x-ray done on admission did show left lower lobe infiltrate. White count on admission was 16.45 on discharge was 10.54 and this is while he was on steroids. His BUN to creatinine ratio was elevated to 30/0.9. Recommend outpatient screening for GI bleed. Iron levels were 67 which is low normal. Assessment and Plan Assessment and plan (1) Pneumonia: Status: Acute in light of steroid use. Assessment and plan: Started on cefepime and vancomycin in the ED. He does have structural lung disease with previous cancer and radiation, so will continue cefepime for pseudomonal coverage. Will defer double coverage with levofloxacin at this point with h/o AAA. Will add doxycycline as he is on azithromycin chronically. No clear MRSA risk factors, will get MRSA nasal swab and continue vancomycin only if positive. Get sputum culture if possible Flu/COVID/RSV negative. (2) Severe sepsis: Status: Acute Assessment and plan: Fever, WBC, tachycardia, and TEODORO in setting of pneumonia. Will give a liter of LR, but be conservative with fluids with respiratory infection and h/o heart disease. (3) COPD with exacerbation: Status: Acute Assessment and plan: Started on IV methylprednisolone. Continue steroids orally and his outpatient inhalers, nebs. (4) Acute on chronic hypoxic respiratory failure: Status: Acute Assessment and plan: secondary to pneumonia/COPD as above. (5) Essential hypertension: Status: Chronic Assessment and plan: continue outpatient therapy with lisinopril, metoprolol (6) Peripheral vascular disease: Status: Chronic Assessment and plan: on aspirin/atorvastatin indefinitely. Confirm lipids at goal with lipid panel in am. (7) History of lung cancer: Status: Chronic Assessment and plan: He is being monitored with CT scans, will need follow up to assure LLL findings resolve with pneumonia treatment. (8) Coronary artery disease: Status: Chronic Assessment and plan: continue ASA/statin. EKG and troponins reassuring that chest pain not ischemiic (9) Acute kidney injury: Status: Acute Assessment and plan: Mild with creatinine up from 0.9 to 1.3 in setting of acute infection/sepsis. IV fluids, rule out bladder outlet obstruction with bladder scan, follow. 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 He has been more SOB since the smoke was in the air more than a week ago. He has been using his inhalers and nebulizer, which helps for an hour or so, but SOB has persisted. Using oxygen more than usual, 2 liters. Has to stop and rest just to get to his bathroom. Has also felt feverish off/on all week. Cough productive at times, no blood. The day of admission he went to his sister's house to visit, felt even more SOB trying to get home, had gradual onset of left sided sharp chest pain. Worse with breathing and coughing. No radiation. NTG did not help, so he came in. He takes his azithromycin chronically per pulmonology. He was treated with solumedrol and nebs here. He does feel a little better, was getting anxious and this has subsided some Recommendations for Follow Up Recommended tests to be ordered by follow up provider: hemoccult check vs colonoscopy/endoscopy Home Meds and New Rx's Prescriptions: New azithromycin 250 mg Tablet 250 mg PO DAILY 5 Days Qty: 5 0RF prednisone 20 mg Tablet 20 mg PO DAILY 5 Days Qty: 5 0RF Continued fiber Tablet 1 tab PO DAILY guaifenesin [Mucinex] 600 mg tablet extended release 12hr 600 mg PO BID Qty: 60 12RF Breztri Aerosphere 160-9-4.8 mcg/actuation HFA aerosol inhaler 2 inh inhalation BID Qty: 10.7 12RF Oxygen 2 l/min inhalation .exertion Qty: 99 0RF nitroglycerin 0.4 mg tablet, sublingual 0.4 mg sublingual Q5-15M PRN (Reason: chest pain) Qty: 25 3RF Rx Instructions: 1 tablet every 5 minutes x 3 doses if needed for chest pain. Seek emergency services if not improving after first dose pantoprazole 20 mg tablet,delayed release (DR/EC) 20 mg PO DAILY Qty: 90 3RF aspirin [Aspir-81] 81 MG tablet,delayed release (DR/EC) 1 tab PO DAILY Qty: 90 4RF ipratropium-albuterol 0.5 mg-3 mg(2.5 mg base)/3 mL solution for nebulization See Rx Instructions .ROUTE .COMPLEX Qty: 180 12RF Dose Instruction: INHALE THE CONTENTS OF 1 VIAL VIA NEBULIZER EVERY 4 HOURS NEEDED FOR COPD Rx Instructions: INHALE THE CONTENTS OF 1 VIAL VIA NEBULIZER EVERY 4 HOURS NEEDED FOR COPD metoprolol succinate 50 mg tablet extended release 24 hr 50 mg PO DAILY Qty: 90 2RF lisinopril 20 mg tablet 20 mg PO DAILY Qty: 90 3RF atorvastatin 80 mg tablet 80 mg PO DAILY Qty: 90 3RF Combivent Respimat 20-100 mcg/actuation mist 1 puff inhalation QID PRN (Reason: shortness of breath or wheezing) Qty: 4 6RF RSVPreF3 antigen-AS01E (PF) 120 mcg/0.5 mL suspension for reconstitution 0.5 ml IM ONCE Qty: 1 0RF Rx Instructions: as a single dose Discontinued azithromycin 250 mg tablet See Rx Instructions .ROUTE .COMPLEX Qty: 90 4RF Dose Instruction: TAKE ONE TABLET BY MOUTH EVERY DAY Rx Instructions: TAKE ONE TABLET BY MOUTH EVERY DAY Benadryl Allergy 50 mg tablet 50 mg PO ONCE PRN (Reason: allergy symptoms) Qty: 1 0RF Rx Instructions: Take 1 tablet one hour prior to contrast administration acetaminophen [Tylenol] 325 MG tablet 650 mg PO Q4H PRN PRN0RF Discharge Instructions Referrals: Sayra Hawk NP [Primary Care Provider, Medicine] Referral Note: follow up in 5-7 days Consider evaluation for GI bleed Activity:: Activity as Tolerated Equipment/Supplies:: No Equipment Needed Diet:: As Tolerated Discharge Orders Discharge Orders: Discharge Order (Routine); Ordered 12/05/24 Ordered By: Omero Brown DS: Summary Time Spent with Patient providing and/or coordinating discharge services: Greater than 30 minutes Status at Discharge Functional status at discharge: independent ambulation Overall status at discharge: patient is progressing back to baseline Mental Status: mental status grossly normal Speech and Movement: speech and movement normal Mood: congruent mood Affect: normal affect Quality:SDOH Health Related Social Needs: Health related social needs house/econ circumstance da madeleine activities Health related social needs details wants more help ar ound the house Health related social needs details: wants more help around the house Exam Narrative Exam Narrative: Well-appearing gentleman sitting up in the bed in no acute distress, ANO x 4, heart regular rhythm, lungs with mild end expiratory wheezing heard throughout, abdomen soft, nontender, nondistended Psych Mental Status: mental status grossly normal Speech and Movement: speech and movement normal Mood: congruent mood Affect: normal affect DS: Data Vitals/I&O Vitals and I&O: Vital Signs Temperature 36.7 C 12/05/24 11:30 Temperature Source Temporal Artery Scan 12/05/24 11:30 Pulse 86 12/05/24 11:30 Pulse 101 H 12/01/24 00:20 Respiratory Rate 18 12/05/24 11:30 Respiratory Effort Short of Breath, Accessory Muscle Use 12/01/24 00:42 Respiratory Depth Shallow 12/01/24 00:42 Respiratory Pattern Normal 12/01/24 00:42 Blood Pressure 160/62 H 12/05/24 11:30 Blood Pressure Mean 94 12/05/24 11:30 Blood Pressure Position Sitting 11/30/24 22:57 Pulse Oximetry 93 12/05/24 11:30 Oxygen Delivery Method Room Air 12/05/24 07:32 Oxygen Flow Rate 0 12/05/24 07:32 Pain Level 5 12/05/24 08:17 Comment rn notified 12/05/24 11:30 Comment 4LNC 11/30/24 22:01 Intake & Output 12/04/24 12/04/24 12/05/24 11:59 23:59 11:59 Intake Total 240 / 400 160 / 400 50 / 50 Balance 240 / 400 160 / 400 50 / 50 Weight 74.2 kg 74.117 kg Intake: IV 160 / 160 50 / 50 Oral 240 / 240 Other: Urine Color Yellow Yellow Yellow Urine Appearance Clear Clear Clear Urine Odor Normal Normal Comment Pt voids ind. in the toilet. Pt voids ind. in the toilet. Stool Size Moderate Stool Characteristics Soft Data Completed and Pending Labs on day of discharge: Labs from last 24 hours 12/05/24 06:42 WBC 10.54 RBC 4.92 Hgb 14.4 Hct 43.3 MCV 88 MCH 29.3 MCHC 33.3 RDW 14.4 H Plt Count 372 MPV 9.3 Immature Gran % 6.0 Neutrophils % 71.5 Lymphocytes % 9.1 Monocytes % 10.9 Eosinophils % 1.6 Basophils % 0.9 Nucleated RBC % 0.0 Absolute Neutrophils 7.54 H Absolute Lymphocytes 0.96 L Absolute Monocytes 1.15 H Absolute Eosinophils 0.17 Absolute Basophils 0.09 Sodium 140 Potassium 4.0 Chloride 103 Carbon Dioxide 30.1 Anion Gap 6.9 BUN 30 H Creatinine 0.9 Est GFR (CKD-EPI 2020) 91.88 Glucose 94 Calcium 9.4 Iron 67 TIBC 297 Transferrin % Sat 23 Total Bilirubin 0.3 AST 19 ALT 46 Alkaline Phosphatase 87 Total Protein 7.4 Albumin 3.4 Preliminary micro results at discharge 11/30/24 23:07 Blood Blood Culture - Preliminary NO GROWTH 96 HOURS 11/30/24 22:45 Blood Blood Culture - Preliminary NO GROWTH 96 HOURS PFSH All Active Problems (Updated 12/05/24 @ 11:47 by Omero Brown MD) DVT prophylaxis (Acute) COPD with exacerbation (Acute) Acute on chronic hypoxic respiratory failure (Acute) Severe sepsis (Acute) Acute kidney injury (Acute) Hypoxia (Acute) Fever (Acute) SOB (shortness of breath) (Acute) Pneumonia (Acute) History of lung cancer (Chronic ~2017) SCLC RUL s/p chemo, radiation Coronary artery disease (Chronic) NM 2013 s/p MISTY to LCX 09/01 and MISTY to ostial OM1 and angioplasty of mid LCX lesion 10/02 Chronic obstructive pulmonary disease (Chronic) PFTs 2021 Peripheral vascular disease (Chronic) s/p right JAYA stent Bilateral carotid artery disease (Chronic) S/p right CEA AAA (abdominal aortic aneurysm) (Chronic) Essential hypertension (Chronic) Hyperlipidemia (Chronic) Iron deficiency anemia (Chronic) Annual monoferric infusions with hem/onc Prediabetes (Chronic) Personal history of nicotine dependence (Chronic) Grade II internal hemorrhoids (Chronic) Hiatal hernia (Chronic) Sensorineural hearing loss (SNHL) of both ears (Chronic) Hearing aids Tubular adenoma of colon (Chronic) On 2020 colonoscopy Diverticulosis of colon (Chronic) Medical History Myocardial infarction (~2013) Diverticulitis Small cell lung cancer (~2017) S/p chemo, radiation History of alcoholism Central retinal artery occlusion, right eye Surgical History S/P coronary artery stent placement MISTY to LCX and ostial OM1 S/P peripheral artery angioplasty with stent placement (12/07/11) Right JAYA stent S/P colonoscopy Hx of cataract surgery History of right-sided carotid endarterectomy (10/20/16) Family History Mother COPD (chronic obstructive pulmonary disease) Breast cancer Father Hyperlipidemia Hypertension Stroke Heart disease Chronic kidney disease Sister Stroke Hypertension Sister Uterus cancer Sister Hypertension Heart disease Dementia Son No problems noted. Son No problems noted. Maternal Grandfather No problems noted. Maternal Grandmother Myocardial infarction Heart disease Paternal Grandfather Heart disease Myocardial infarction Paternal Grandmother Dementia Social History (Updated 12/01/24 @ 00:11 by Wily Tabor) Smoking/Tobacco Use Status: Former Tobacco Use tobacco type: cigarettes Quit Date: 06/20/14 Pack-years: 90 Second Hand Exposure: Yes Smoking risk assessment performed?: Yes Alcohol Intake: former Drug use: Never Substance use type: does not use Household members: none Housing: house Pets and animals: Yes Pets and animals: cat(s) and dog(s) How often do you talk on the phone with friends or family?: three or more times per week How often do you get together with friends or relatives?: twice per week Do you belong to any clubs or organized social groups?: no Panel score (0-1 are the most socially isolated patients): 1 Duration: 15-30 minutes/day Frequency: daily Seatbelt use: always Do you feel safe at home: Yes Do you feel safe in your relationship?: Yes Additional Social history: Lives with cat and dog in [place], [facility]. 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
== END 2024-12-05 13:00 | disposition home health service (06) | DRG 871 ==
LOC: ER 23:21 → MS 12-01 00:37
PROVIDERS: Family Medicine; Admitting Provider Family Medicine; Emergency Provider Emergency Medicine; PCP Nurse Practitioner Family; Responsible Provider Hospitalist; Visit Provider Family Medicine
DX: A41.9 Sepsis, unspecified organism (principal); J18.9 Pneumonia, unspecified organism; J96.21 Acute and chronic respiratory failure with hypoxia; J44.0 Chronic obstructive pulmonary disease with (acute) lower respiratory infection; J44.1 Chronic obstructive pulmonary disease with (acute) exacerbation; N17.9 Acute kidney failure, unspecified; R65.20 Severe sepsis without septic shock; I10 Essential (primary) hypertension; Z85.118 Personal history of other malignant neoplasm of bronchus and lung; I25.10 Atherosclerotic heart disease of native coronary artery without angina pectoris; Z95.5 Presence of coronary angioplasty implant and graft; I73.9 Peripheral vascular disease, unspecified; I71.40 Abdominal aortic aneurysm, without rupture, unspecified; Z99.81 Dependence on supplemental oxygen; I25.2 Old myocardial infarction; E78.5 Hyperlipidemia, unspecified; D50.9 Iron deficiency anemia, unspecified; R73.03 Prediabetes; H90.3 Sensorineural hearing loss, bilateral; Z87.891 Personal history of nicotine dependence; K57.30 Diverticulosis of large intestine without perforation or abscess without bleeding; K64.1 Second degree hemorrhoids; K44.9 Diaphragmatic hernia without obstruction or gangrene; F10.21 Alcohol dependence, in remission; Z95.828 Presence of other vascular implants and grafts
CPT/HCPCS: 00123; 36415; 80048; 80053; 80061; 82805; 83690; 84145; 85027; 87040; 87637; 87641; 93005; 94640; 96365; 96375; 97161; 97530; 99291; J1650; 71045; 82270; 83540; 83550; 83735; 83880; 84484; 85025; 85610; 85730; 87070; 87205; 93010; 93306; 94664; 94668; 94760; 99223; 99232; 99233; 99239; J0131; J0692; J2919; J3370; J7512; J7620

== ENCOUNTER 2025-02-06 02:36 | Outpatient (CLI) | payer MEDICARE, SELFPAY ==
[2025-02-06 12:53] LABS: Iron 90 ug/dL (65-175); Total Iron Binding Capacity 358 ug/dL (250-450); Transferrin Sat 25 % (20-55)
[2025-02-06 13:09] LABS: Ferritin 81 ng/mL (26-388)
== END 2025-02-06 02:37 | disposition home or self-care (01) ==
LOC: LOS 02:36
PROVIDERS: PCP Nurse Practitioner Family; Visit Provider Nurse Practitioner
DX: D50.9 Iron deficiency anemia, unspecified (principal); C34.11 Malignant neoplasm of upper lobe, right bronchus or lung
CPT/HCPCS: 36415; 82728; 83540; 83550

== ENCOUNTER → 2025-05-03 10:25 | Outpatient (BNVA) | payer MEDICARE, SELFPAY | PROVIDERS: PCP Nurse Practitioner Family; Referring Provider Nurse Practitioner Family; Visit Provider Physician Assistant Surgical | DX: J44.9 Chronic obstructive pulmonary disease, unspecified (principal); J96.11 Chronic respiratory failure with hypoxia; Z85.118 Personal history of other malignant neoplasm of bronchus and lung; Z87.891 Personal history of nicotine dependence | CPT/HCPCS: 99214; 36415 ==

== ENCOUNTER 2025-05-03 12:01 | Outpatient (REF) | payer MEDICARE, SELFPAY ==
[2025-05-03 11:46] LABS: Abs Immature Grans 0.08 10^3/uL (0.0-0.06); HCT 42.9 % (40.0-50.0); HGB 13.9 g/dL (13.5-17.5); Immature Grans % 0.9 %; MCH 28.4 pg (27.0-33.0); MCHC 32.4 % (32.0-36.0); MCV 88 fL (80-95); MPV 9.5 fL (8.0-11.0); Platelet Count 388 10^3/uL (130-400); RBC 4.89 10^6/uL (4.36-5.78); RDW 14.5 % (11.8-14.1); RDW-SD 46.5 fL; WBC 8.77 10^3/uL (4.4-10.8)
== END 2025-05-03 12:02 | disposition home or self-care (01) ==
LOC: LBN 12:01
PROVIDERS: PCP Nurse Practitioner Family; Visit Provider Physician Assistant Surgical
DX: J44.9 Chronic obstructive pulmonary disease, unspecified (principal)
CPT/HCPCS: 85025

== ENCOUNTER 2025-05-30 01:02 | Outpatient (CLI) | payer MEDICARE, SELFPAY ==
[2025-05-30] MEDS: Levalbuterol HFA 15 GM INH 4 PUFF IH (12:52)
[2025-05-30] MEDS: Inhaler, Assist Device 1 EACH MC (12:52)
--- NOTE | 2025-06-06 12:24 | W.PFT ---
Date of service: 05/30/25 Time of Service: 09:53 Pulmonary Function Test Result Indications: 1. Good patient effort was noted. ATS standards for reproducibility were met. 2. Spirometry showed severe obstructive lung disease with an FEV1 of 33% (0.83 L) 3. Following the administration of a bronchodilator there was not a significant response 4. TLC and RV were elevated, consistent with air trapping
== END 2025-05-30 01:03 | disposition home or self-care (01) ==
LOC: RT 01:02
PROVIDERS: PCP Nurse Practitioner Family; Visit Provider Physician Assistant Surgical
DX: J44.9 Chronic obstructive pulmonary disease, unspecified (principal); J96.11 Chronic respiratory failure with hypoxia; Z85.118 Personal history of other malignant neoplasm of bronchus and lung
CPT/HCPCS: 94060; 94726; 94729